=== PATIENT | female | born 1945 | race Hispanic/Latino ===

== ENCOUNTER 2020-02-11 14:18 | Inpatient (IN) | payer MEDICARE ==
[2020-02-11] MEDS ORDERED: MORPHINE 4 MG/1 ML INJ IV ONE (14:47)
[2020-02-11] MEDS ORDERED: ONDANSETRON 4 MG/2 ML INJ IV ONE (14:47)
[2020-02-11] MEDS ORDERED: ONDANSETRON 4 MG/2 ML INJ ONE (14:48)
[2020-02-11] MEDS ORDERED: MORPHINE 4 MG/1 ML INJ ONE (14:48)
--- NOTE | 2020-02-11 14:52 | Emergency Department Report ---
ED Abdominal Pain HPI - General Chief Complaint: Abdominal Pain Stated Complaint: ABDOMINAL PAIN/NAUSEA VOMITING Time Seen by Provider: 02/11/20 14:31 Source: patient, EMS Mode of arrival: Stretcher Limitations: No Limitations - History of Present Illness Initial Comments: Patient is 74 years old female with history of hypertension, diabetes and a remote history of kidney stone. Patient presented to the ER via EMS from home complaining of abdominal pain and right flank pain that started all of a sudden this morning. Patient described her pain as sharp, 10 out of 10 with no radiation. Denied any chest pain or shortness of breath. No headache, weakness numbness or tingling sensation. Patient had 1 episode of bowel and bladder incontinence at home. Patient found to have a blood pressure of 220/130. Patient immediately given morphine 4 mg, Zofran and labetalol [address] abdomen and pelvis stat has been ordered to examine for aortic dissection or any other acute abdomen pathology. MD Complaint: abdominal pain -: Sudden, This morning Location: diffuse Radiation: none Migration to: no migration Quality: sharp - Related Data Home Medications Medication Instructions Recorded Confirmed Last Taken Doxazosin [Cardura] 4 mg PO QDAY 02/11/20 02/11/20 02/10/20 Hydralazine HCl 50 mg PO DAILY 02/11/20 02/11/20 02/10/20 Metoprolol 25 mg PO DAILY 02/11/20 02/11/20 02/10/20 Sertraline [Zoloft] 50 mg PO QDAY 02/11/20 02/11/20 02/10/20 amLODIPine [Norvasc] 10 mg PO DAILY 02/11/20 02/11/20 02/10/20 glipiZIDE 10 mg PO BID 02/11/20 02/11/20 02/10/20 Allergies Allergy/AdvReac Type Severity Reaction Status Date / Time clindamycin Allergy Hives Verified 02/11/20 14:52 ED Review of Systems ROS: Stated complaint: ABDOMINAL PAIN/NAUSEA VOMITING Other details as noted in HPI Comment: All other systems reviewed and negative Constitutional: denies: chills, fever Respiratory: denies: cough, shortness of breath, SOB with exertion Cardiovascular: denies: chest pain, palpitations Gastrointestinal: abdominal pain. denies: nausea, vomiting, diarrhea, constipation, hematemesis, melena, hematochezia Musculoskeletal: denies: back pain Neurological: denies: headache, weakness, numbness, paresthesias, confusion, abnormal gait ED Past Medical Hx - Past Medical History Hx Hypertension: Yes Hx Diabetes: Yes Additional medical history: Mitral Valve Prolapse, High Cholesterol - Surgical History Hx Cholecystectomy: Yes Additional Surgical History: Hysterectomy, tonsillectomy - Social History Smoking Status: Heavy Tobacco Smoker Substance Use Type: None - Medications Home Medications: Home Medications Medication Instructions Recorded Confirmed Last Taken Type Doxazosin [Cardura] 4 mg PO QDAY 02/11/20 02/11/20 02/10/20 History Hydralazine HCl 50 mg PO DAILY 02/11/20 02/11/20 02/10/20 History Metoprolol 25 mg PO DAILY 02/11/20 02/11/20 02/10/20 History Sertraline [Zoloft] 50 mg PO QDAY 02/11/20 02/11/20 02/10/20 History amLODIPine [Norvasc] 10 mg PO DAILY 02/11/20 02/11/20 02/10/20 History glipiZIDE 10 mg PO BID 02/11/20 02/11/20 02/10/20 History ED Physical Exam - General Limitations: No Limitations General appearance: alert, in no apparent distress - Head Head exam: Present: atraumatic, normocephalic, normal inspection - Eye Eye exam: Present: normal appearance - ENT ENT exam: Present: normal exam, normal orophraynx, mucous membranes moist - Neck Neck exam: Present: normal inspection, full ROM. Absent: tenderness, meningismu s - Respiratory Respiratory exam: Present: normal lung sounds bilaterally - Cardiovascular Cardiovascular Exam: Present: tachycardia, irregular rhythm - GI/Abdominal GI/Abdominal exam: Present: soft, normal bowel sounds. Absent: distended, tenderness, guarding, rebound, rigid, mass, bruit, pulsatile mass, hernia - Extremities Exam Extremities exam: Present: normal inspection, full ROM, normal capillary refill. Absent: pedal edema, calf tenderness - Back Exam Back exam: Present: normal inspection, full ROM. Absent: CVA tenderness (R), CVA tenderness (L) - Neurological Exam Neurological exam: Present: alert, oriented X3, reflexes normal. Absent: CN II- XII intact, normal gait - Psychiatric Psychiatric exam: Present: normal mood - Skin Skin exam: Present: warm, intact, normal color ED Course Vital Signs 02/11/20 02/11/20 02/11/20 14:39 15:42 16:11 Temperature 97.6 F Pulse Rate 118 H 98 H 110 H Respiratory 16 20 20 Rate Blood Pressure 222/121 Blood Pressure 200/125 194/98 [Right] O2 Sat by Pulse 97 95 96 Oximetry 02/11/20 02/11/20 02/11/20 16:48 18:11 19:11 Temperature Pulse Rate 105 H 118 H 114 H Respiratory 14 16 20 Rate Blood Pressure Blood Pressure 187/92 164/86 174/92 [Right] O2 Sat by Pulse 94 96 95 Oximetry 02/11/20 02/11/20 02/11/20 19:37 20:03 20:35 Temperature Pulse Rate 91 H 122 H 100 H Respiratory 16 14 Rate Blood Pressure 198/107 Blood Pressure 185/116 160/95 [Right] O2 Sat by Pulse 95 95 Oximetry ED Medical Decision Making - Lab Data Result diagrams: 02/12/20 04:58 02/12/20 04:58 - EKG Data -: EKG Interpreted by Me Rate: tachycardia - Radiology Data Radiology results: report reviewed - Medical Decision Making Patient is 74 years old female with history of hypertension, diabetes and a [facility] history of kidney stone. Patient presented to the ER via EMS from home complaining of abdominal pain and right flank pain that started all of a sudden this morning. Patient described her pain as sharp, 10 out of 10 with no radiation. Denied any chest pain or shortness of breath. No headache, weakness numbness or tingling sensation. Patient had 1 episode of bowel and bladder incontinence at home. Patient found to have a blood pressure of 220/130. Patient immediately given morphine 4 mg, Zofran and labetalol [address] abdomen and pelvis stat has been ordered to examine for aortic dissection or any other acute abdomen pathology. Patient received multiple doses of pain medication including morphine, fentanyl and Dilaudid. Patient found to have a white blood cells of 22,000 with left shift. Patient is tender to the right CVA however urinalysis is unremarkable. Patient received Rocephin [address] abdomen and pelvis showed no acute inflammatory changes in the abdomen and pelvis. Patient found to have a creatinine of 3 however there is no baseline that we can follow-up. I discussed the patient with Dr. Magdaleno, he agreed to admit the patient to medical service for further management. Critical Care Time: Yes Critical care time in (mins) excluding proc time.: 30 Critical care attestation.: If time is entered above; I have spent that time in minutes in the direct care of this critically ill patient, excluding procedure time. ED Disposition Clinical Impression: Abdominal pain, Hypertensive emergency, Acute renal failure, Acute hyperglycemia Disposition: 09 OP ADMIT IP TO THIS HOSP Is pt being admited?: Yes Condition: Stable
[2020-02-11] MEDS ORDERED: fentaNYL 250 MCG/5 ML INJ IV ONE (15:34)
[2020-02-11] MEDS ORDERED: fentaNYL 100 MCG/2 ML INJ ONE (15:39)
--- NOTE | 2020-02-11 15:51 | Cat Scan Report ---
CT ABDOMEN AND PELVIS WITHOUT CONTRAST INDICATION / CLINICAL INFORMATION: Abdominal Pain/BP 220/130. TECHNIQUE: Axial CT images were obtained through the abdomen and pelvis without IV contrast. All CT scans at [facility] are performed using CT dose reduction for ALARA by means of automated exposure control. COMPARISON: None available. FINDINGS: LOWER CHEST: No significant abnormality. LIVER: Small hepatic cyst but no significant abnormality. GALLBLADDER: Surgically absent. BILE DUCTS: No significant abnormality. PANCREAS: Several small calcifications in the pancreatic head which could represent chronic calcific pancreatitis. No acute peripancreatic inflammation or fluid collection. SPLEEN: No significant abnormality. ADRENALS: No significant abnormality. RIGHT KIDNEY and URETER: Multiple renal cysts some of which appear hyperdense. No stones or hydroneph rosis. LEFT KIDNEY and URETER: Multiple renal cysts some of which appear hyperdense. No urinary tract stones or hydronephrosis. STOMACH and SMALL BOWEL: No significant abnormality. COLON: Moderate colonic diverticulosis without acute inflammation. APPENDIX: No significant abnormality. PERITONEUM: No free fluid. No free air. No fluid collection. LYMPH NODES: No significant adenopathy. AORTA and ARTERIES: Moderate atherosclerotic calcification without acute abnormality. IVC and VEINS: No significant abnormality. URINARY BLADDER: No significant abnormality. REPRODUCTIVE ORGANS: Uterus is absent. No significant adnexal abnormality. ADDITIONAL FINDINGS: None. SKELETAL SYSTEM: No significant abnormality. IMPRESSION: 1. No inflammatory process or bowel obstruction. 2. Multiple bilateral renal cysts including hyperdense cysts. No stones or hydronephrosis. Signer Name: Meron Doe MD Signed: 02/11/2020 3:47 PM Workstation Name: [email or web address]
[2020-02-11] MEDS ORDERED: fentaNYL 100 MCG/2 ML INJ IV ONE (16:00)
[2020-02-11 16:04] LABS: Hematocrit 42.5 % (30.3-42.9); Mean Corpuscular HGB Conc 33 % (30-34); Mean Corpuscular Volume 87 fl (79-97); Platelet Count 329 K/mm3 (140-440); Red Blood Count 4.86 M/mm3 (3.65-5.03); Red Cell Distribution Width 14.6 % (13.2-15.2)
[2020-02-11 16:13] LABS: INR 1.06 (0.87-1.13); Partial Thromboplastin Time 23.3 Sec. (24.2-36.6)
[2020-02-11] MEDS ORDERED: cefTRIAXone/NS 1 GM/50 ML 1 GM/50 ML BAG IV ONE (16:15)
[2020-02-11] MEDS ORDERED: HYDROmorphone 1 MG/1 ML INJ IV ONE ×2 (16:24→18:02)
[2020-02-11 16:30] LABS: Alanine Aminotransferase 30 units/L (7-56); Albumin 3.9 g/dL (3.9-5); BUN/Creatinine Ratio 20; Blood Urea Nitrogen 59 mg/dL (7-17); Calcium 9.3 mg/dL (8.4-10.2); Hemolysis Index 4
[2020-02-11 16:37] LABS: Bilirubin,Direct < 0.2 mg/dL (0-0.2)
[2020-02-11 16:46] LABS: Basophils % (Manual) 0 % (0.0-1.8); Eosinophils % (Manual) 0 % (0.0-4.3); Total Cells Counted 100
[2020-02-11 16:47] LABS: Large Platelets 1+; Platelet Estimate Consistent w Auto; RBC Morphology Normal
[2020-02-11 16:50] LABS: Bacteria,Urine 1+ /HPF (Negative); Bilirubin,Urine NEG (Negative); Blood,Urine SM (Negative); Color,Urine Yellow (Yellow); Urobilinogen,Urine < 2.0 mg/dL (<2.0)
[2020-02-11 16:51] LABS: Protein,Urine >500 mg/dL (Negative)
[2020-02-11] MEDS ORDERED: SODIUM CHLORIDE 0.9% 1000 ML 1,000 ML IV ONE ×2 (16:53→18:01)
[2020-02-11] MEDS ORDERED: INSULIN REGULAR, HUMAN 100 UNITS/1 ML IV ONE (16:54)
--- NOTE | 2020-02-11 17:34 | XRay Report ---
CHEST 1 VIEW INDICATION / CLINICAL INFORMATION: chest pain. COMPARISON: None available. FINDINGS: SUPPORT DEVICES: None. HEART / MEDIASTINUM: No significant abnormality. LUNGS / PLEURA: No significant pulmonary or pleural abnormality. No pneumothorax. ADDITIONAL FINDINGS: No significant additional findings. IMPRESSION: 1. No significant change Signer Name: Abdiaziz Berman MD Signed: 02/11/2020 5:30 PM Workstation Name: [id number]
--- NOTE | 2020-02-11 18:03 | History and Physical Report ---
History of Present Illness Chief complaint: It hurts on my right side History of present illness: 74 YO Female with HTN, DM, MVP, Nicotine Dependence, HLD presents to ED for evaluation. Patient states that she has experienced pain on the right side of her abdomen as well as her right flank over the past 1 day with persistent pain over the same timeframe. Patient states that her pain is 10/10, constant, nonradiating, localized to the right flank and right side of her abdomen, not worsened with palpation, not associated with meals. EMS was notified and upon arrival the patient was found to be in distress and subsequently transported to [facility] for further evaluation and care. Patient seen and evaluated in the em ergency department. Lab and imaging studies reviewed. Patient found to have systemic inflammatory response syndrome suspected secondary to urinary tract infection, accelerated hypertension with a blood pressure of 220/130, and acute kidney injury with tubular necrosis, as well as hyponatremia. Patient admitted to medical floor due to increased risk of decompensation. Patient treated with antihypertensive therapy, IV antibiotic therapy, and supportive care. Nephrology team consulted in the emergency department. Patient denies fever, chills, chest pain, palpitations, productive cough, skin rash, recent ill contacts, ingestion of food/water from new or different sources, bright red blood per rectum, hematemesis, or known exposure to COVID-19. No prior admission for review. All medication listed at time of admission has been reconciled. Advanced care planning conducted in the emergency department. Past History Past Medical History: diabetes, hypertension, hyperlipidemia, other (See HPI) Past Surgical History: hysterectomy, tonsillectomy Social history: , Lives alone. denies: smoking, alcohol abuse, prescription drug abuse Family history: no significant family history (Reviewed) Medications and Allergies Allergies Allergy/AdvReac Type Severity Reaction Status Date / Time clindamycin Allergy Hives Verified 02/11/20 14:52 Home Medications Medication Instructions Recorded Confirmed Last Taken Type Doxazosin [Cardura] 4 mg PO QDAY 02/11/20 02/11/20 02/10/20 History Hydralazine HCl 50 mg PO DAILY 02/11/20 02/11/20 02/10/20 History Metoprolol 25 mg PO DAILY 02/11/20 02/11/20 02/10/20 History Sertraline [Zoloft] 50 mg PO QDAY 02/11/20 02/11/20 02/10/20 History amLODIPine [Norvasc] 10 mg PO DAILY 02/11/20 02/11/20 02/10/20 History glipiZIDE 10 mg PO BID 02/11/20 02/11/20 02/10/20 History Active Meds: Active Medications Sodium Chloride (Nacl 0.9% 1000 Ml) 1,000 mls @ 250 mls/hr IV ONCE ONE Stop: 02/11/20 20:52 Last Admin: 02/11/20 17:39 Dose: 250 mls/hr Documented by: Sodium Chloride (Nacl 0.9% 1000 Ml) 1,000 mls @ 999 mls/hr IV BOLUS ONE Stop: 02/11/20 19:01 Review of Systems Constitutional: no weight loss, no weight gain, no fever, no chills Ears, nose, mouth and throat: no ear pain, no ear discharge, no tinnitis, no decreased hearing, no nasal congestion Breasts: no change in shape, no swelling, no mass Cardiovascular: no chest pain, no orthopnea, no palpitations, no rapid/irregular heart beat Respiratory: no cough, no cough with sputum, no excessive sputum, no hemoptysis Gastrointestinal: abdominal pain, no hematemesis, no coffee ground emesis, no BRBPR, no melena, no hematochezia Genitourinary Female: flank pain, no dysmenorrhea, no pelvic pain, no urinary frequency, no urgency Rectal: no pain, no incontinence, no bleeding Musculoskeletal: no neck stiffness, no neck pain, no shooting arm pain, no arm numbness/tingling, no low back pain, no shooting leg pain Integumentary: no rash, no pruritis, no redness, no sores, no wounds Neurological: no head injury, no transient paralysis, no paralysis, no weakness, no parathesias, no numbness, no tingling, no seizures Psychiatric: no anxiety, no memory loss, no change in sleep habits, no sleep disturbances, no hypersomnia, no change in appetite, no change in libido Endocrine: no cold intolerance, no heat intolerance, no polyphagia, no excessive thirst, no polydipsia, no polyuria, no nocturia, no excessive sweating Hematologic/Lymphatic: no easy bruising, no easy bleeding, no lymphadenopathy, no lymphedema Allergic/Immunologic: no urticaria, no persistent infections, no anaphylaxis Exam - Constitutional Vitals: Temp Pulse Resp BP Pulse Ox 97.6 F 105 H 14 187/92 94 02/11/20 14:39 02/11/20 16:48 02/11/20 16:48 02/11/20 16:48 02/11/20 16:48 General appearance: Present: mild distress - EENT Eyes: Present: PERRL ENT: hearing intact, clear oral mucosa - Neck Neck: Present: supple, normal ROM - Respiratory Respiratory effort: normal Respiratory: bilateral: CTA - Cardiovascular Heart Sounds: Present: S1 & S2. Absent: rub, click - Extremities Extremities: pulses symmetrical, No edema Peripheral Pulses: within normal limits - Abdominal General gastrointestinal: Present: soft, non-tender, non-distended, normal bowel sounds, other (Negative Roland Morejon sign, negative Gerardo sign, negative Angela sign, no flank discoloration,). Absent: hepatomegaly, splenomegaly, mass Female genitourinary: Present: normal - Integumentary Integumentary: Present: clear, warm, dry - Musculoskeletal Musculoskeletal: gait normal, strength equal bilaterally - Psychiatric Psychiatric: appropriate mood/affect, intact judgment & insight - Neurologic Neurologic: CNII-XII intact, moves all extremities HEART Score - HEART Score Troponin: Troponin T < 0.010 ng/mL (0.00-0.029) 02/11/20 15:27 Results - Labs CBC & Chem 7: 02/11/20 15:27 02/11/20 15:27 Labs: Abnormal lab results 02/11/20 02/11/20 02/11/20 Range/Units 15:27 15:27 15:27 WBC 22.5 H (4.5-11.0) K/mm3 Seg Neuts % (Manual) 90.0 H (40.0-70.0) % Lymphocytes % (Manual) 4.0 L (13.4-35.0) % Seg Neutrophils # Man 20.3 H (1.8-7.7) K/mm3 Lymphocytes # (Manual) 0.9 L (1.2-5.4) K/mm3 Monocytes # (Manual) 1.1 H (0.0-0.8) K/mm3 APTT 23.3 L (24.2-36.6) Sec. Sodium 132 L (137-145) mmol/L Chloride 96.0 L (98-107) mmol/L Carbon Dioxide 16 L (22-30) mmol/L BUN 59 H (7-17) mg/dL Creatinine 3.0 H (0.7-1.2) mg/dL Glucose 487 H (65-100) mg/dL Alkaline Phosphatase 142 H (35-129) units/L Lipase 86 H (13-60) units/L Assessment and Plan - Patient Problems (1) Acute kidney injury (LITZY) with acute tubular necrosis (ATN) Current Visit: Yes Status: Acute Plan to address problem: IV fluid resuscitation therapy, monitor urine output every shift, nephrology team consulted in ED, strict I's/O, avoid nephrotoxic agents. (2) UTI (urinary tract infection) Current Visit: Yes Status: Acute Qualifiers: Encounter type: initial encounter Plan to address problem: IV antibiotic therapy, urinalysis, supportive care. (3) Systemic inflammatory response syndrome Current Visit: Yes Status: Acute Plan to address problem: CBC, CMP, chest x-ray, urinalysis, IV antibiotic therapy, IV fluid resuscitation therapy, (4) Abdominal pain Current Visit: Yes Status: Acute Plan to address problem: Monitor blood pressure every shift, resume prehospital antihypertensive therapy, hydralazine 10 mg IV every 6 hours as needed for systolic blood pressure g reater than or equal to 155 (5) Accelerated hypertension Current Visit: Yes Status: Acute (6) Metabolic acidosis Current Visit: Yes Status: Acute Plan to address problem: BMP, repeat BMP in a.m., IV bicarbonate therapy. (7) Nicotine dependence Current Visit: Yes Status: Acute Qualifiers: Nicotine product type: cigarettes Substance use status: in withdrawal Qualified Code(s): F17.213 - Nicotine dependence, cigarettes, with withdrawal Plan to address problem: Smoking cessation counseling, behavior change counseling, supportive care, +15 minutes. (8) DVT prophylaxis Current Visit: Yes Status: Acute Plan to address problem: SCD to bilateral lower extremities while in bed, patient is ambulatory (9) Advance care planning Current Visit: Yes Status: Acute Plan to address problem: Disease education conducted, patient is full code, patient and patient grandda liana acknowledges understanding and agreement with care plan. Patient grand daughter notified over the telephone and discussed care plan. +30 minutes.
[2020-02-11] MEDS ORDERED: ONDANSETRON 4 MG/2 ML INJ IV PRN (19:01)
[2020-02-11] MEDS ORDERED: SODIUM BICARB 8.4% 50 MEQ/50 ML SYRINGE IV ONE ×2 (19:28→23:10)
[2020-02-11] MEDS ORDERED: SODIUM CHLORIDE 0.9% 1000 ML 1,000 ML ONE (19:55)
[2020-02-11] MEDS ORDERED: hydrALAZINE 20 MG/1 ML INJ ONE (20:00)
[2020-02-11] MEDS: hydrALAZINE 20 MG/1 ML INJ IV PRN (20:03)
[2020-02-11] MEDS ORDERED: MORPHINE 2 MG/1 ML INJ IV ONE (23:00)
[2020-02-12] MEDS: ACETAMINOPHEN 325 MG TAB PO PRN ×4 (00:08→17:00)
[2020-02-12] MEDS: hydrALAZINE 20 MG/1 ML INJ IV PRN (00:27)
[2020-02-12] MEDS ORDERED: HYDROmorphone 1 MG/1 ML INJ IV ONE (01:08)
[2020-02-12] MEDS: SODIUM CHLORIDE 0.9% 1000 ML 1,000 ML IV SCH ×2 (05:44→06:36)
[2020-02-12 05:47] LABS: Hematocrit 42.5 % (30.3-42.9); Hemoglobin 13.9 gm/dl (10.1-14.3); Mean Corpuscular HGB Conc 33 % (30-34); Mean Corpuscular Volume 88 fl (79-97); Platelet Count 375 K/mm3 (140-440); Red Blood Count 4.83 M/mm3 (3.65-5.03); Red Cell Distribution Width 14.5 % (13.2-15.2)
[2020-02-12] MEDS ORDERED: METOPROLOL TARTRATE 5 MG/5 ML INJ IV ONE (06:33)
[2020-02-12 06:55] LABS: Albumin 3.5 g/dL (3.9-5); Calcium 8.7 mg/dL (8.4-10.2)
[2020-02-12 07:03] LABS: Basophils % (Manual) 0 % (0.0-1.8); Burr Cells Rare; Eosinophils % (Manual) 0 % (0.0-4.3); Large Platelets Few; Ovalocytes Rare; Platelet Estimate Consistent w Auto; Total Cells Counted 100
--- NOTE | 2020-02-12 08:15 | XRay Report ---
ABDOMEN 2 VIEW(S) INDICATION / CLINICAL INFORMATION: ab pain. COMPARISON: CT abdomen pelvis dated 02/11/2020 FINDINGS: TUBES / LINES: None. BOWEL GAS PATTERN: There are 1 or 2 mildly dilated loops of small bowel in the left abdomen with smal l air-fluids on the upright image. It is unclear if this represents a focal ileus or low-grade partia l obstruction. The remaining bowel loops are unremarkable. FREE AIR / EXTRALUMINAL GAS: None seen. ADDITIONAL FINDINGS: Cholecystectomy. IMPRESSION: Slightly prominent small bowel loops in the left abdomen. See above and correlate with the patient's clinical presentation. Signer Name: Efren Rogers Jr, MD Signed: 02/12/2020 8:10 AM Workstation Name: [id number]
--- NOTE | 2020-02-12 09:30 | Consultation ---
History of Present Illness - Reason for Consult Consult date: 02/12/20 acute renal failure, chronic renal failure Requesting physician: LORY PRUITT - History of Present Illness Patient is 74 years old female with history of hypertension, diabetes and a remote history of kidney stone. Patient presented to the ER via EMS from home complaining of abdominal pain and right flank pain that started all of a sudden this morning. Patient described her pain as sharp, 10 out of 10 with no radiation. Denied any chest pain or shortness of breath. No headache, weakness numbness or tingling sensation. Patient had 1 episode of bowel and bladder incontinence at home. Patient found to have a blood pressure of 220/130. Patient immediately given morphine 4 mg, Zofran and labetalol [address] abdomen and pelvis stat has been ordered to examine for aortic dissection or any other acute abdomen pathology. MD Complaint: abdominal pain -: Sudden, This morning Location: diffuse Radiation: none Migration to: no migration Quality: sharp ROS: Stated complaint: ABDOMINAL PAIN/NAUSEA VOMITING Other details as noted in HPI Comment: All other systems reviewed and negative Constitutional: denies: chills, fever Respiratory: denies: cough, shortness of breath, SOB with exertion Cardiovascular: denies: chest pain, palpitations Gastrointestinal: abdominal pain. denies: nausea, vomiting, diarrhea, constipation, hematemesis, melena, hematochezia Musculoskeletal: denies: back pain Neurological: denies: headache, weakness, numbness, paresthesias, confusion, abnormal gait - Past Medical History Hx Hypertension: Yes Hx Diabetes: Yes Additional medical history: Mitral Valve Prolapse, High Cholesterol - Surgical History Hx Cholecystectomy: Yes Additional Surgical History: Hysterectomy, tonsillectomy - Social History Smoking Status: Heavy Tobacco Smoker Substance Use Type: None Past History Past Medical History: diabetes, hypertension, hyperlipidemia, other (See HPI) Past Surgical History: hysterectomy, tonsillectomy Social history: , Lives alone. denies: smoking, alcohol abuse, pre scription drug abuse Family history: no significant family history (Reviewed) Medications and Allergies Allergies Allergy/AdvReac Type Severity Reaction Status Date / Time clindamycin Allergy Hives Verified 02/11/20 14:52 Home Medications Medication Instructions Recorded Confirmed Last Taken Type Doxazosin [Cardura] 4 mg PO QDAY 02/11/20 02/11/20 02/10/20 History Hydralazine HCl 50 mg PO DAILY 02/11/20 02/11/20 02/10/20 History Metoprolol 25 mg PO DAILY 02/11/20 02/11/20 02/10/20 History Sertraline [Zoloft] 50 mg PO QDAY 02/11/20 02/11/20 02/10/20 History amLODIPine [Norvasc] 10 mg PO DAILY 02/11/20 02/11/20 02/10/20 History glipiZIDE 10 mg PO BID 02/11/20 02/11/20 02/10/20 History Active Meds: Active Medications Acetaminophen (Tylenol) 650 mg PO Q4H PRN PRN Reason: Pain MILD(1-3)/Fever >100.5/[facility] Last Admin: 02/12/20 05:37 Dose: 650 mg Documented by: Amlodipine Besylate (Amlodipine) 10 mg PO DAILY [facility] Doxazosin Mesylate (Cardura) 4 mg PO QDAY [facility] Hydralazine HCl (Apresoline) 10 mg IV Q6HR PRN PRN Reason: Hypertension Last Admin: 02/12/20 00:27 Dose: 10 mg Documented by: Hydralazine HCl (Apresoline) 50 mg PO DAILY [facility] Sodium Chloride (Nacl 0.9% 1000 Ml) 1,000 mls @ 75 mls/hr IV DIRECT [facility] Last Admin: 02/12/20 06:36 Dose: 75 mls/hr Documented by: Levofloxacin/Dextrose (Levaquin 500mg/100ml) 500 mg in 100 mls @ 100 mls/hr IV Q48HR [facility] Metoprolol Tartrate (Metoprolol) 25 mg PO DAILY [facility] Ondansetron HCl (Zofran) 4 mg IV Q8H PRN PRN Reason: Nausea And Vomiting Last Admin: 02/12/20 05:44 Dose: 4 mg Documented by: Sertraline HCl (Zoloft) 50 mg PO QDAY [facility] Sodium Chloride (Sodium Chloride Flush Syringe 10 Ml) 10 ml IV BID [facility] Last Admin: 02/11/20 22:35 Dose: 10 ml Documented by: Sodium Chloride (Sodium Chloride Flush Syringe 10 Ml) 10 ml IV PRN PRN PRN Reason: LINE FLUSH Exam - Vital Signs Vital signs: Vital Signs Temp Pulse Resp BP Pulse Ox 97.6 F 118 H 16 222/121 98 02/11/20 14:39 02/11/20 14:39 02/11/20 14:39 02/11/20 14:39 02/11/20 14:39 - Physical Exam Narrative exam: - General Limitations: No Limitations General appearance: alert, in no apparent distress - Head Head exam: Present: atraumatic, normocephalic, normal inspection - Eye Eye exam: Present: normal appearance - ENT ENT exam: Present: normal exam, normal orophraynx, mucous membranes moist - Neck Neck exam: Present: normal inspection, full ROM. Absent: tenderness, meningismu s - Respiratory Respiratory exam: Present: normal lung sounds bilaterally - Cardiovascular Cardiovascular Exam: Present: tachycardia, irregular rhythm - GI/Abdominal GI/Abdominal exam: Present: soft, normal bowel sounds. Absent: distended, tenderness, guarding, rebound, rigid, mass, bruit, pulsatile mass, hernia - Extremities Exam Extremities exam: Present: normal inspection, full ROM, normal capillary refill. Absent: pedal edema, calf tenderness - Back Exam Back exam: Present: normal inspection, full ROM. Absent: CVA tenderness (R), CVA tenderness (L) - Neurological Exam Neurological exam: Present: alert, oriented X3, reflexes normal. Absent: CN II- XII intact, normal gait - Psychiatric Psychiatric exam: Present: normal mood - Skin Skin exam: Present: warm, intact, normal color Results - Lab Results 02/12/20 04:58 02/12/20 04:58 Most recent lab results Calcium 8.7 mg/dL (8.4-10.2) 02/12/20 04:58 Assessment and Plan Impression: * LITZY on ckd 3 * Acc Hypertension * volume depletion * UTI * polycytic kidney disease * leucocytosis * type 2 DM--uncontrolled Plan: * ivfs and iv abx for volume depletion with uti * hematology consult for leucocytosis--not available * daily lytes and strict i/os * avoid nephrotoxins * ct noted, no stones or hydronephrosis * will need outpatient follow up of leucocytosis
[2020-02-12] MEDS ORDERED: cloNIDine 0.1 MG TAB PO PRN (09:35)
[2020-02-12] MEDS ORDERED: SODIUM CHLORIDE 0.9% 1000 ML 1,000 ML IV SCH (09:45)
[2020-02-12] MEDS ORDERED: NON-FORMULARY EACH (Hydralazine Hcl [Hydralazine Hcl] 50 MG) PO SCH (10:00)
[2020-02-12] MEDS ORDERED: NON-FORMULARY EACH (Metoprolol 25 MG) PO SCH (10:00)
[2020-02-12] MEDS: MORPHINE 4 MG/1 ML INJ IV PRN ×4 (10:28→23:35)
[2020-02-12] MEDS: hydrALAZINE 25 MG TAB PO SCH (10:31)
[2020-02-12] MEDS: METOPROLOL TARTRATE 25 MG TAB PO SCH (10:31)
[2020-02-12] MEDS: amLODIPine 10 MG TAB PO SCH (10:31)
[2020-02-12] MEDS: SERTRALINE 50 MG TAB PO SCH (10:32)
--- NOTE | 2020-02-12 14:11 | Consultation ---
History of Present Illness - Reason for Consult Consult date: 02/12/20 - History of Present Illness 74-year-old female past medical history hypertension, diabetes, mitral valve prolapse, hyperlipidemia admitted to the hospital with nominal pain. She notes of the pain is predominantly over the right side of her abdomen includes her right flank. Pain began approximately 1 day prior to admission and is been persistent ever since again. The pain is not worse with eating and not alleviated by anything. He otherwise denies any symptoms such as fevers, sweats, chills. Afebrile since admission with a white count of 30 with significant neutrophilia. Blood cultures pending. Currently receiving levofloxacin. Imaging personally reviewed: Chest x-ray no acute abnormality CT abdomen pelvis: Multiple bilateral renal cysts. Diverticulosis without diverticulitis. Review of Systems: Bold if positive, otherwise negative General: fevers, chills, rigors HEENT: visual disturbance, diplopia, eye pain Respiratory: cough, sputum, hemoptysis, shortness of breath Cardiovascular: chest pain, syncope Gastrointestinal: nausea, vomiting, diarrhea, abdominal pain Genitourinary: dysuria, hematuria, flank pain Musculoskeletal: neck pain, back pain, joint pain, edema Neurologic: headaches, seizures Hematologic: easy bruising or bleeding Endocrine: night sweats, acute weight loss Skin: rash, jaundice, redness Psychiatric: suicidal, homicidal ideation Past History Past Medical History: diabetes, hypertension, hyperlipidemia, other (See HPI) Past Surgical History: hysterectomy, tonsillectomy Social history: , Lives alone. denies: smoking, alcohol abuse, prescription drug abuse Family history: no significant family history (Reviewed) Medications and Allergies Allergies Allergy/AdvReac Type Severity Reaction Status Date / Time clindamycin Allergy Hives Verified 02/11/20 14:52 Home Medications Medication Instructions Recorded Confirmed Last Taken Type Doxazosin [Cardura] 4 mg PO QDAY 02/11/20 02/11/20 02/10/20 History Hydralazine HCl 50 mg PO DAILY 02/11/20 02/11/20 02/10/20 History Metoprolol 25 mg PO DAILY 02/11/20 02/11/20 02/10/20 History Sertraline [Zoloft] 50 mg PO QDAY 02/11/20 02/11/20 02/10/20 History amLODIPine [Norvasc] 10 mg PO DAILY 02/11/20 02/11/20 02/10/20 History glipiZIDE 10 mg PO BID 02/11/20 02/11/20 02/10/20 History Active Meds: Active Medications Acetaminophen (Tylenol) 650 mg PO Q4H PRN PRN Reason: Pain MILD(1-3)/Fever >100.5/[facility] Last Admin: 02/12/20 12:28 Dose: 650 mg Documented by: Amlodipine Besylate (Amlodipine) 10 mg PO DAILY REPLACED BY [facility] Last Admin: 02/12/20 10:31 Dose: 10 mg Documented by: Clonidine HCl (Catapres) 0.1 mg PO Q8HR PRN PRN Reason: Blood Pressure Doxazosin Mesylate (Cardura) 4 mg PO QDAY REPLACED BY [facility] Hydralazine HCl (Apresoline) 10 mg IV Q6HR PRN PRN Reason: Hypertension Last Admin: 02/12/20 00:27 Dose: 10 mg Documented by: Hydralazine HCl (Apresoline) 50 mg PO DAILY REPLACED BY [facility] Last Admin: 02/12/20 10:31 Dose: 50 mg Documented by: Levofloxacin/Dextrose (Levaquin 500mg/100ml) 500 mg in 100 mls @ 100 mls/hr IV Q48HR REPLACED BY [facility] Sodium Chloride (Nacl 0.9% 1000 Ml) 1,000 mls @ 100 mls/hr IV DIRECT REPLACED BY [facility] Metoprolol Tartrate (Metoprolol) 25 mg PO DAILY REPLACED BY [facility] Last Admin: 02/12/20 10:31 Dose: 25 mg Documented by: Morphine Sulfate (Morphine) 3 mg IV Q4H PRN PRN Reason: Pain, Moderate (4-6) Last Admin: 02/12/20 10:28 Dose: 3 mg Documented by: Ondansetron HCl (Zofran) 4 mg IV Q8H PRN PRN Reason: Nausea And Vomiting Last Admin: 02/12/20 05:44 Dose: 4 mg Documented by: Sertraline HCl (Zoloft) 50 mg PO QDAY REPLACED BY [facility] Last Admin: 02/12/20 10:32 Dose: 50 mg Documented by: Sodium Chloride (Sodium Chloride Flush Syringe 10 Ml) 10 ml IV BID REPLACED BY [facility] Last Admin: 02/12/20 10:30 Dose: 10 ml Documented by: Sodium Chloride (Sodium Chloride Flush Syringe 10 Ml) 10 ml IV PRN PRN PRN Reason: LINE FLUSH Physical Examination - Physical Exam Narrative exam: Physical Exam: Constitutional: Alert, cooperative. No acute distress Head, Ears, Nose: Normocephalic, atraumatic. External ears, nose normal Eyes: Conjunctivae/corneas clear. No icterus. No ptosis. Neck: Supple, no meningeal signs Oral: dentition fair, no thrush Cardiovascular: S1, S2 normal. Respiratory: Good air entry, clear to auscultation bilaterally GI: Soft, non-tender; bowel sounds normal. No peritoneal signs. Musculoskeletal: No pedal edema, no cyanosis. Skin: No rash or abscess Hem/Lymphatic: No palpable cervical or supraclavicular nodes. No lymphangitis Psych: Mood ok. Affect normal Neurological: Awake, alert, oriented. No gross abnormality - Constitutional Vitals: Vital Signs Temp Pulse Resp BP Pulse Ox 98.5 F 156 H 28 H 166/85 91 02/12/20 06:04 02/12/20 10:31 02/12/20 06:04 02/12/20 10:31 02/12/20 06:04 Temperature -Last 24 Hours Temperature 98.5 F Temperature 97.6 F Temperature 97.6 F Results - Labs CBC & Chem 7: 02/12/20 04:58 02/12/20 04:58 Labs: Abnormal lab results 02/11/20 02/11/20 02/11/20 Range/Units 15:27 15:27 15:27 WBC 22.5 H (4.5-11.0) K/mm3 Seg Neuts % (Manual) 90.0 H (40.0-70.0) % Lymphocytes % (Manual) 4.0 L (13.4-35.0) % Seg Neutrophils # Man 20.3 H (1.8-7.7) K/mm3 Lymphocytes # (Manual) 0.9 L (1.2-5.4) K/mm3 Monocytes # (Manual) 1.1 H (0.0-0.8) K/mm3 APTT 23.3 L (24.2-36.6) Sec. Sodium 132 L (137-145) mmol/L Chloride 96.0 L (98-107) mmol/L Carbon Dioxide 16 L (22-30) mmol/L BUN 59 H (7-17) mg/dL Creatinine 3.0 H (0.7-1.2) mg/dL Glucose 487 H (65-100) mg/dL Alkaline Phosphatase 142 H (35-129) units/L Albumin (3.9-5) g/dL Lipase 86 H (13-60) units/L 02/12/20 02/12/20 Range/Units 04:58 04:58 WBC 30.0 H (4.5-11.0) K/mm3 Seg Neuts % (Manual) 96.0 H (40.0-70.0) % Lymphocytes % (Manual) 1.0 L (13.4-35.0) % Seg Neutrophils # Man 28.8 H (1.8-7.7) K/mm3 Lymphocytes # (Manual) 0.3 L (1.2-5.4) K/mm3 Monocytes # (Manual) 0.9 H (0.0-0.8) K/mm3 APTT (24.2-36.6) Sec. Sodium (137-145) mmol/L Chloride (98-107) mmol/L Carbon Dioxide 15 L (22-30) mmol/L BUN 59 H (7-17) mg/dL Creatinine 3.0 H (0.7-1.2) mg/dL Glucose 477 H (65-100) mg/dL Alkaline Phosphatase (35-129) units/L Albumin 3.5 L (3.9-5) g/dL Lipase (13-60) units/L Assessment and Plan Cultures: Blood culture 02/11/2020 pending A/P: 74-year-old female past medical history hypertension, diabetes, mitral valve prolapse, hyperlipidemia admitted with acute sepsis and abdominal pain #Acute sepsis: Present with leukocytosis and tachycardia. Unclear etiology, though with significant abdominal pain and no clear cause of that. #Abdominal pain: Unclear etiology, CT scan with multiple bilateral renal cysts no obvious infection at this time #Leukocytosis: Significant neutrophilia. Will escalate levofloxacin to cefepime, and add Flagyl at this time for potential intra-abdominal anaerobes #Diabetes: Tight glycemic control for best outcomes #LITZY on CKD: Renally adjust antibiotics Recs: -Stop levofloxacin -Started cefepime renally adjusted and metronidazole -Trend white blood cell count Thank you for the consult, we will continue to follow. MD [facility] ([facility] M: [phone] O: [phone] F: [phone]
[2020-02-12] MEDS ORDERED: CEFEPIME/NS 2 GM/100 ML 2 GM/100 ML BAG IV SCH (15:00)
[2020-02-12 16:25] LABS: Creatinine,Urine 35.3 mg/dL (0.1-20.0)
[2020-02-12 16:43] LABS: Protein/Creatinine Ratio,Urine 22.55
[2020-02-12] MEDS: metroNIDAZOLE/NS 500 MG/100 ML 500 MG/100 ML BAG IV SCH ×2 (16:52→21:27)
[2020-02-12] MEDS: DOXAZOSIN 4 MG TAB PO SCH (16:53)
--- NOTE | 2020-02-12 17:24 | Progress Note ---
Subjective Date of service: 02/12/20 Interval history: A/P Assessment and Plan - Patient Problems (1) Acute kidney injury rule out acute on chronic kidney disease Current Visit: Yes Status: Acute Plan to address problem: IV fluid resuscitation therapy, avoid nephrotoxic agents. Nephrology note reviewed Continue IV fluids Monitor renal function Nephrology note reviewed and appreciated (2) Abdominal pain Current Visit: Yes Status: Acute Plan to address problem: CT of the abdomen and pelvis results reviewed Unclear etiology UA reviewed no evidence of UTI Pain control (3) Accelerated hypertension Current Visit: Yes Status: Acute Continue amlodipine, clonidine and hydralazine (4) Metabolic acidosis secondary to acute renal failure Current Visit: Yes Status: Acute Plan to address problem: Nephrology following Continue per recommendations of nephrology (5)Leukocytosis; WBC count went up to 30,000 today Unclear etiology ID note reviewed and appreciated Antibiotics escalated to cefepime and Flagyl (6) Nicotine dependence Current Visit: Yes Status: Acute Qualifiers: Nicotine product type: cigarettes Substance use status: in withdrawal Qualified Code(s): F17.213 - Nicotine dependence, cigarettes, with withdrawal Plan to address problem: Smoking cessation counseling, behavior change counseling, supportive care, +15 minutes. (7) DVT prophylaxis Current Visit: Yes Status: Acute Plan to address problem: SCD to bilateral lower extremities while in bed, patient is ambulatory 74-year-old female with history of diabetes and hypertension resting in the bed, alert and oriented, complaints of abdominal and right mid back/flank pain She denies any fever or chills or dysuria. She denies any chest pain or shortness of breath. Denies nausea vomiting or diarrhea. Complains of pain all over the abdomen. Lab results reviewed. CT abdomen / pelvis results reviewed. ID and nephrology notes reviewed and appreciated Physical Exam: Constitutional: Alert, cooperative. No acute distress Head, Ears, Nose: Normocephalic, atraumatic. External ears, nose normal Eyes: Conjunctivae/corneas clear. No icterus. No ptosis. Neck: Supple, no meningeal signs Oral: dentition fair, no thrush Cardiovascular: S1, S2 normal. Respiratory: Good air entry, clear to auscultation bilaterally GI: Soft, diffusely tender; bowel sounds normal. No peritoneal signs. Musculoskeletal: No pedal edema, no cyanosis. Skin: No rash or abscess Hem/Lymphatic: No palpable cervical or supraclavicular nodes. No lymphangitis Psych: Mood ok. Affect normal Neurological: Awake, alert, oriented. No gross abnormality Objective - Constitutional Vitals: Vital Signs - 12hr 02/12/20 02/12/20 02/12/20 06:04 06:35 10:31 Temperature 98.5 F Pulse Rate 156 H 156 H 156 H Respiratory 28 H Rate Blood Pressure 166/85 166/85 166/85 O2 Sat by Pulse 91 Oximetry 02/12/20 11:58 Temperature 98.1 F Pulse Rate 76 Respiratory 20 Rate Blood Pressure 172/85 O2 Sat by Pulse 91 Oximetry - Labs CBC & Chem 7: 02/12/20 04:58 02/12/20 04:58 Labs: Abnormal lab results 02/12/20 02/12/20 02/12/20 Range/Units 04:58 04:58 Unknown WBC 30.0 H (4.5-11.0) K/mm3 Seg Neuts % (Manual) 96.0 H (40.0-70.0) % Lymphocytes % (Manual) 1.0 L (13.4-35.0) % Seg Neutrophils # Man 28.8 H (1.8-7.7) K/mm3 Lymphocytes # (Manual) 0.3 L (1.2-5.4) K/mm3 Monocytes # (Manual) 0.9 H (0.0-0.8) K/mm3 Carbon Dioxide 15 L (22-30) mmol/L BUN 59 H (7-17) mg/dL Creatinine 3.0 H (0.7-1.2) mg/dL Glucose 477 H (65-100) mg/dL Albumin 3.5 L (3.9-5) g/dL Urine Creatinine 35.3 H (0.1-20.0) mg/dL Urine Total Protein 796 H (5-11.8) mg/dL HEART Score - HEART Score Troponin: Troponin T < 0.010 ng/mL (0.00-0.029) 02/11/20 15:27
[2020-02-13] MEDS: MORPHINE 4 MG/1 ML INJ IV PRN ×3 (05:12→13:39)
[2020-02-13] MEDS: metroNIDAZOLE/NS 500 MG/100 ML 500 MG/100 ML BAG IV SCH ×3 (05:13→23:28)
[2020-02-13 06:17] LABS: Hematocrit 43.6 % (30.3-42.9); Hemoglobin 13.8 gm/dl (10.1-14.3); Mean Corpuscular HGB Conc 32 % (30-34); Mean Corpuscular Volume 89 fl (79-97); Platelet Count 348 K/mm3 (140-440); Red Blood Count 4.88 M/mm3 (3.65-5.03); Red Cell Distribution Width 15.2 % (13.2-15.2)
[2020-02-13 06:27] LABS: Calcium 8.8 mg/dL (8.4-10.2)
[2020-02-13 06:58] LABS: Band Neutrophils # (Manual) 0.8 K/mm3; Basophils % (Manual) 0 % (0.0-1.8); Burr Cells Rare; Eosinophils % (Manual) 0 % (0.0-4.3); Total Cells Counted 100
[2020-02-13 06:59] LABS: Ovalocytes Rare; Platelet Estimate Consistent w Auto
[2020-02-13] MEDS: METOPROLOL TARTRATE 25 MG TAB PO SCH (09:40)
[2020-02-13] MEDS: DOXAZOSIN 4 MG TAB PO SCH (09:41)
[2020-02-13] MEDS: SERTRALINE 50 MG TAB PO SCH (09:41)
[2020-02-13] MEDS: amLODIPine 10 MG TAB PO SCH (09:41)
[2020-02-13] MEDS ORDERED: CEFEPIME/NS 2 GM/100 ML 2 GM/100 ML BAG IV SCH (10:00)
--- NOTE | 2020-02-13 10:25 | Progress Note ---
Assessment and Plan Impression: * LITZY on ckd 3 * Acc Hypertension * sepsis * volume depletion * UTI * polycytic kidney disease--likely with infected cyst * leucocytosis * type 2 DM--uncontrolled Plan: * ivfs and iv abx for volume depletion with uti * add levaquin for increase concentration inside renal cyst * hematology consult for leucocytosis--not available * daily lytes and strict i/os * avoid nephrotoxins * ct noted, no stones or hydronephrosis * likely now with ATN, due to hypotension, cr worse * low thresold for icu transfer, discussed with critical care * check abg * give iv albumin and bicarb gtt * vasopressors prn Subjective Date of service: 02/13/20 Principal diagnosis: sepsis, litzy on ckd Interval history: resting in bed Objective - Exam Narrative Exam: - General Limitations: No Limitations General appearance: alert, in no apparent distress - Head Head exam: Present: atraumatic, normocephalic, normal inspection - Eye Eye exam: Present: normal appearance - ENT ENT exam: Present: normal exam, normal orophraynx, mucous membranes moist - Neck Neck exam: Present: normal inspection, full ROM. Absent: tenderness, meningismus - Respiratory Respiratory exam: Present: normal lung sounds bilaterally - Cardiovascular Cardiovascular Exam: Present: tachycardia, irregular rhythm - GI/Abdominal GI/Abdominal exam: Present: soft, normal bowel sounds. Absent: distended, tenderness, guarding, rebound, rigid, mass, bruit, pulsatile mass, hernia - Extremities Exam Extremities exam: Present: normal inspection, full ROM, normal capillary refill. Absent: pedal edema, calf tenderness - Back Exam Back exam: Present: normal inspection, full ROM. Absent: CVA tenderness (R), CVA tenderness (L) - Neurological Exam Neurological exam: Present: alert, oriented X3, reflexes normal. Absent: CN II- XII intact, normal gait - Psychiatric Psychiatric exam: Present: normal mood - Skin Skin exam: Present: warm, intact, normal color - Vital Signs Vital signs: Vital Signs - 12hr 02/12/20 02/13/20 02/13/20 23:10 04:58 09:40 Temperature 97.9 F 99.0 F Pulse Rate 81 125 H 121 H Respiratory 20 16 Rate Blood Pressure 158/88 92/69 Blood Pressure 167/62 [Right] O2 Sat by Pulse 91 92 Oximetry 02/13/20 09:41 Temperature Pulse Rate 121 H Respiratory Rate Blood Pressure 92/69 Blood Pressure [Right] O2 Sat by Pulse Oximetry - Lab 02/13/20 05:43 02/13/20 05:43 Most recent lab results Calcium 8.8 mg/dL (8.4-10.2) 02/13/20 05:43 Urine Creatinine 35.3 mg/dL (0.1-20.0) H 02/12/20 Unknown Urine Total Protein 796 mg/dL (5-11.8) H 02/12/20 Unknown Medications & Allergies - Medications Allergies/Adverse Reactions: Allergies clindamycin Allergy (Verified 02/11/20 14:52) Hives Home Medications: Home Medications Medication Instructions Recorded Confirmed Last Taken Type Doxazosin [Cardura] 4 mg PO QDAY 02/11/20 02/11/20 02/10/20 History Hydralazine HCl 50 mg PO DAILY 02/11/20 02/11/20 02/10/20 History Metoprolol 25 mg PO DAILY 02/11/20 02/11/20 02/10/20 History Sertraline [Zoloft] 50 mg PO QDAY 02/11/20 02/11/20 02/10/20 History amLODIPine [Norvasc] 10 mg PO DAILY 02/11/20 02/11/20 02/10/20 History glipiZIDE 10 mg PO BID 02/11/20 02/11/20 02/10/20 History Active Medications: Generic Name Dose Route Start Last Admin Trade Name Freq PRN Reason Stop Dose Admin Acetaminophen 650 mg 02/11/20 19:01 02/12/20 17:00 Tylenol PO 650 mg Q4H PRN Administration Pain MILD(1-3)/Fever >100.5/[facility] Amlodipine Besylate 10 mg 02/12/20 10:00 02/13/20 09:41 Amlodipine PO Not Given DAILY [facility] Clonidine HCl 0.1 mg 02/12/20 09:35 Catapres PO Q8HR PRN Blood Pressure Doxazosin Mesylate 4 mg 02/12/20 10:00 02/13/20 09:41 Cardura PO Not Given QDAY [facility] Hydralazine HCl 10 mg 02/11/20 18:07 02/12/20 00:27 Apresoline IV 10 mg Q6HR PRN Administration Hypertension Hydralazine HCl 50 mg 02/12/20 10:00 02/12/20 10:31 Apresoline PO 50 mg DAILY [facility] Administration Metronidazole 500 mg in 100 mls @ 100 mls/hr 02/12/20 15:40 02/13/20 07:53 Flagyl 500 Mg/100 Ml IV Infused Q8HR [facility] Infusion Levofloxacin/Dextrose 250 mg in 50 mls @ 50 mls/hr 02/13/20 11:00 Levaquin 250mg/50ml IV Q24HR [facility] Protocol Metoprolol Tartrate 25 mg 02/12/20 10:00 02/13/20 09:40 Metoprolol PO Not Given DAILY [facility] Morphine Sulfate 3 mg 02/12/20 10:09 02/13/20 09:47 Morphine IV 3 mg Q4H PRN Administration Pain, Moderate (4-6) Ondansetron HCl 4 mg 02/11/20 19:01 02/12/20 05:44 Zofran IV 4 mg Q8H PRN Administration Nausea And Vomiting Sertraline HCl 50 mg 02/12/20 10:00 02/13/20 09:41 Zoloft PO 50 mg QDAY [facility] Administration Sodium Chloride 10 ml 02/11/20 22:00 02/13/20 09:40 Sodium Chloride Flush Syringe 10 Ml IV Not Given BID [facility] Sodium Chloride 10 ml 02/11/20 19:01 Sodium Chloride Flush Syringe 10 Ml IV PRN PRN LINE FLUSH
[2020-02-13] MEDS: hydrALAZINE 25 MG TAB PO SCH (10:33)
[2020-02-13] MEDS: ALBUMIN HUMAN 25% (25 GM/100 ML) INJ IV SCH ×2 (11:03→23:28)
[2020-02-13] MEDS: SODIUM CHLORIDE 0.45% 1000 ML 1,000 ML with SODIUM BICARBONATE 75 MEQ IV SCH (11:27)
--- NOTE | 2020-02-13 11:58 | Progress Note ---
Subjective Date of service: 02/13/20 Principal diagnosis: sepsis, ashley on ckd Interval history: A/P Assessment and Plan - Patient Problems (1) Acute kidney injury rule out acute on chronic kidney disease Current Visit: Yes Status: Acute Plan to address problem: IV fluid resuscitation therapy, avoid nephrotoxic agents. Nephrology note reviewed Lab results reviewed Continue IV fluids Monitor renal function Nephrology note reviewed and appreciated (2) Abdominal pain Current Visit: Yes Status: Acute Plan to address problem: CT of the abdomen and pelvis results reviewed Unclear etiology UA reviewed no evidence of UTI Discussed with nephrology Will request consults by GI and general surgery as the abdomen is very tender for Repeat CT of the abdomen and pelvis today We will check serum lipase level N.p.o. Accelerated hypertension Current Visit: Yes Status: Acute hold amlodipine, clonidine and hydralazine Hypotension: BP dropped from 150 > 92 systoloic r/o sepsis vs 2/2 medication discussed with nephrology IV fluids HAGMA secondary to acute renal failure r/o DKA Current Visit: Yes Status: Acute Plan to address problem: Nephrology following Continue per recommendations of nephrology check ketones and PH ( ABG ordered) Patient started on sodium bicarbonate drip Neutrophilic leukocytosis; worsening. up to 38 k today likely sepsis source not known Blood Cx - no growth no progressive care nurse available ID note reviewed and appreciated cont. cefepime and Flagyl Type 2 diabetes: Continue insulin sliding scale coverage ? DKA Check ABG and ketones/BHB Nicotine dependence Current Visit: Yes Status: Acute Qualifiers: Nicotine product type: cigarettes Substance use status: in withdrawal Qualified Code(s): F17.213 - Nicotine dependence, cigarettes, with withdrawal Plan to address problem: Smoking cessation counseling, behavior change counseling, supportive care, +15 minutes. DVT prophylaxis Current Visit: Yes Status: Acute Plan to address problem: SCD to bilateral lower extremities while in bed, patient is ambulatory 74-year-old female with history of diabetes and hypertension resting in the bed, alert and oriented, complains of abdominal and right mid back/flank pain She denies any fever or chills or dysuria. She denies any chest pain or shortness of breath. Denies nausea vomiting or diarrhea. Complains of pain all over the abdomen. Lab results reviewed. ID and nephrology notes reviewed and appreciated Physical Exam: Constitutional: Alert, cooperative. No acute distress Head, Ears, Nose: Normocephalic, atraumatic. External ears, nose normal Eyes: Conjunctivae/corneas clear. No icterus. No ptosis. Neck: Supple, no meningeal signs Oral: dentition fair, no thrush Cardiovascular: S1, S2 normal. Respiratory: Good air entry, clear to auscultation bilaterally GI: Soft, diffusely tender; bowel sounds normal. Musculoskeletal: No pedal edema, no cyanosis. Skin: No rash or abscess Hem/Lymphatic: No palpable cervical or supraclavicular nodes. No lymphangitis Psych: Mood ok. Affect normal Neurological: Awake, alert, oriented. No gross abnormality Objective - Constitutional Vitals: Vital Signs - 12hr 02/13/20 02/13/20 02/13/20 04:58 09:40 09:41 Temperature 99.0 F Pulse Rate 125 H 121 H 121 H Respiratory 16 Rate Blood Pressure 158/88 92/69 92/69 O2 Sat by Pulse 92 Oximetry - Labs CBC & Chem 7: 02/13/20 05:43 02/13/20 05:43 Labs: Abnormal lab results 02/12/20 02/13/20 02/13/20 Range/Units Unknown 05:43 05:43 WBC 38.2 H (4.5-11.0) K/mm3 Hct 43.6 H (30.3-42.9) % Seg Neuts % (Manual) 91.0 H (40.0-70.0) % Lymphocytes % (Manual) 4.0 L (13.4-35.0) % Seg Neutrophils # Man 34.8 H (1.8-7.7) K/mm3 Monocytes # (Manual) 1.1 H (0.0-0.8) K/mm3 Sodium 136 L (137-145) mmol/L Carbon Dioxide 11 L (22-30) mmol/L BUN 71 H (7-17) mg/dL Creatinine 4.0 H (0.7-1.2) mg/dL Glucose 343 H (65-100) mg/dL Urine Creatinine 35.3 H (0.1-20.0) mg/dL Urine Total Protein 796 H (5-11.8) mg/dL HEART Score - HEART Score Troponin: Troponin T < 0.010 ng/mL (0.00-0.029) 02/11/20 15:27
--- NOTE | 2020-02-13 12:07 | Consultation ---
History of Present Illness Consult date: 02/13/20 Reason for consult: abdominal pain Chief complaint: Abdominal pain - History of present illness History of present illness: 74-year-old female with past medical history of mitral valve prolapse, hypertension who presented to the emergency room on 02/11/2020 with abdominal pain. The patient was admitted for pain control, elevated creatinine, leukocytosis. A CT scan at that time did not show any acute abdominal cause for the abdominal pain. The patient states that her pain is getting worse. She complains of diffuse abdominal pain. She cannot characterize the pain. She has been on a solid diet without nausea or vomiting. She has been tolerating the diet. No bowel movements during this admission. The patient states she was on amoxicillin for a tooth infection recently and had diarrhea on Sunday. Since then the diarrhea has resolved. No fevers, chills, chest pain, shortness of breath. Per nursing the patient has made very little urine. Past History Past Medical History: diabetes, hypertension, hyperlipidemia, other (See HPI) Past Surgical History: cholecystectomy, hysterectomy, tonsillectomy Social history: , Lives alone. denies: smoking, alcohol abuse, prescription drug abuse Family history: no significant family history (Reviewed) Medications and Allergies Allergies Allergy/AdvReac Type Severity Reaction Status Date / Time clindamycin Allergy Hives Verified 02/11/20 14:52 Home Medications Medication Instructions Recorded Confirmed Last Taken Type Doxazosin [Cardura] 4 mg PO QDAY 02/11/20 02/11/20 02/10/20 History Hydralazine HCl 50 mg PO DAILY 02/11/20 02/11/20 02/10/20 History Metoprolol 25 mg PO DAILY 02/11/20 02/11/20 02/10/20 History Sertraline [Zoloft] 50 mg PO QDAY 02/11/20 02/11/20 02/10/20 History amLODIPine [Norvasc] 10 mg PO DAILY 02/11/20 02/11/20 02/10/20 History glipiZIDE 10 mg PO BID 02/11/20 02/11/20 02/10/20 History Active Meds: Active Medications Acetaminophen (Tylenol) 650 mg PO Q4H PRN PRN Reason: Pain MILD(1-3)/Fever >100.5/ADAMS Last Admin: 02/12/20 17:00 Dose: 650 mg Documented by: Albumin Human (Alburx 25% (Albumin)) 25 gm IV Q12HR NADER Stop: 02/14/20 12:00 Last Admin: 02/13/20 11:03 Dose: 25 gm Documented by: Clonidine HCl (Catapres) 0.1 mg PO Q8HR PRN PRN Reason: Blood Pressure Hydralazine HCl (Apresoline) 10 mg IV Q6HR PRN PRN Reason: Hypertension Last Admin: 02/12/20 00:27 Dose: 10 mg Documented by: Metronidazole (Flagyl 500 Mg/100 Ml) 500 mg in 100 mls @ 100 mls/hr IV Q8HR [facility] Last Infusion: 02/13/20 07:53 Dose: Infused Documented by: Levofloxacin/Dextrose (Levaquin 250mg/50ml) 250 mg in 50 mls @ 50 mls/hr IV Q24HR [facility]; Protocol Last Admin: 02/13/20 11:27 Dose: 50 mls/hr Documented by: Sodium Bicarbonate 75 meq/ (Sodium Chloride) 1,075 mls @ 125 mls/hr IV DIRECT [facility] Last Admin: 02/13/20 11:27 Dose: 125 mls/hr Documented by: Insulin Human Lispro (Humalog) 0 unit SUB-Q Q6HR [facility]; Protocol Metoprolol Tartrate (Metoprolol) 25 mg PO DAILY [facility] Last Admin: 02/13/20 09:40 Dose: Not Given Documented by: Morphine Sulfate (Morphine) 3 mg IV Q4H PRN PRN Reason: Pain, Moderate (4-6) Last Admin: 02/13/20 09:47 Dose: 3 mg Documented by: Ondansetron HCl (Zofran) 4 mg IV Q8H PRN PRN Reason: Nausea And Vomiting Last Admin: 02/12/20 05:44 Dose: 4 mg Documented by: Sertraline HCl (Zoloft) 50 mg PO QDAY [facility] Last Admin: 02/13/20 09:41 Dose: 50 mg Documented by: Sodium Chloride (Sodium Chloride Flush Syringe 10 Ml) 10 ml IV BID [facility] Last Admin: 02/13/20 09:40 Dose: Not Given Documented by: Sodium Chloride (Sodium Chloride Flush Syringe 10 Ml) 10 ml IV PRN PRN PRN Reason: LINE FLUSH Review of Systems ROS unobtainable: due to mental status Exam Vital Signs Temp Pulse Resp BP Pulse Ox 97.6 F 118 H 16 222/121 98 02/11/20 14:39 02/11/20 14:39 02/11/20 14:39 02/11/20 14:39 02/11/20 14:39 Narrative exam: Gen.: Awake but sleepy. Slow to answer questions. In moderate distress due to pain. ENT: Trachea midline. No lymphadenopathy. No scleral icterus or conjunctival pallor CV: S1, S2 present Respiratory: No audible wheezes Abdomen: Soft, mildly distended, diffuse tenderness to palpation. Bilateral CVA tenderness. + Voluntary guarding. No rebound or rigidity Extremities: No clubbing, cyanosis, edema Results - Labs 02/13/20 05:43 02/13/20 05:43 Abnormal lab results 02/12/20 02/13/20 02/13/20 Range/Units Unknown 05:43 05:43 WBC 38.2 H (4.5-11.0) K/mm3 Hct 43.6 H (30.3-42.9) % Seg Neuts % (Manual) 91.0 H (40.0-70.0) % Lymphocytes % (Manual) 4.0 L (13.4-35.0) % Seg Neutrophils # Man 34.8 H (1.8-7.7) K/mm3 Monocytes # (Manual) 1.1 H (0.0-0.8) K/mm3 Sodium 136 L (137-145) mmol/L Carbon Dioxide 11 L (22-30) mmol/L BUN 71 H (7-17) mg/dL Creatinine 4.0 H (0.7-1.2) mg/dL Glucose 343 H (65-100) mg/dL Urine Creatinine 35.3 H (0.1-20.0) mg/dL Urine Total Protein 796 H (5-11.8) mg/dL Diabetes panel 02/13/20 Range/Units 05:43 Sodium 136 L (137-145) mmol/L Potassium 4.6 (3.6-5.0) mmol/L Chloride 104.9 (98-107) mmol/L Carbon Dioxide 11 L (22-30) mmol/L BUN 71 H (7-17) mg/dL Creatinine 4.0 H (0.7-1.2) mg/dL Glucose 343 H (65-100) mg/dL Calcium 8.8 (8.4-10.2) mg/dL Calcium panel 02/13/20 Range/Units 05:43 Calcium 8.8 (8.4-10.2) mg/dL Pituitary panel 02/13/20 Range/Units 05:43 Sodium 136 L (137-145) mmol/L Potassium 4.6 (3.6-5.0) mmol/L Chloride 104.9 (98-107) mmol/L Carbon Dioxide 11 L (22-30) mmol/L BUN 71 H (7-17) mg/dL Creatinine 4.0 H (0.7-1.2) mg/dL Glucose 343 H (65-100) mg/dL Calcium 8.8 (8.4-10.2) mg/dL Adrenal panel 02/13/20 Range/Units 05:43 Sodium 136 L (137-145) mmol/L Potassium 4.6 (3.6-5.0) mmol/L Chloride 104.9 (98-107) mmol/L Carbon Dioxide 11 L (22-30) mmol/L BUN 71 H (7-17) mg/dL Creatinine 4.0 H (0.7-1.2) mg/dL Glucose 343 H (65-100) mg/dL Calcium 8.8 (8.4-10.2) mg/dL - Imaging CT scan - abdomen: report reviewed, image reviewed CT scan - pelvis: report reviewed, image reviewed Assessment and Plan 74-year-old female with 1. Abdominal pain 2. Leukocytosis 3. Acute kidney injury 4. Sepsis Plan: 1. NPO 2. IVF - nephro on board 3. continue abx per ID 4. obtain stool cultures and CDIFF 5. prn pain control 6. recommend placement of corcoran catheter for accurate I/Os 7. repeat CT A/P with oral contrast pending 8. DVT ppx 9. glucose control per 1' service Further recs pending Ct scan results Thank you, please call with questions.
--- NOTE | 2020-02-13 13:19 | Progress Note ---
Assessment and Plan Cultures: Blood culture 02/11/2020 pending A/P: 74-year-old female past medical history hypertension, diabetes, mitral valve prolapse, hyperlipidemia admitted with acute sepsis and abdominal pain #Acute sepsis: Likely secondary to an infected renal cyst, pending repeat CT with oral contrast. #Infected renal cyst: Agree with plan to change from cephalosporin to levofloxacin to increase medication penetrating into renal cyst. #Leukocytosis: Significant neutrophilia. Will escalate levofloxacin to cefepime, and add Flagyl at this time for potential intra-abdominal anaerobes #Diabetes: Tight glycemic control for best outcomes #Diarrhea: resolved prior to presentation, doubt C diff, but continue Flagyl pending test results. #LITZY on CKD: Renally adjust antibiotics Recs: -Continue levofloxacin 200mg q24h -Continue metronidazole -Trend white blood cell count -Follow up C diff -Follow up CT with oral contrast. Discussed with Dr. Martino Thank you for the consult, we will continue to follow. Natalie Charles MD [facility] ([facility]) M: [phone] O: [phone] F: [phone] Subjective Date of service: 02/13/20 Principal diagnosis: sepsis, litzy on ckd Interval history: Remains afebrile, normal white count. Currently receiving levofloxacin and Flagyl Objective - Exam Narrative Exam: Physical Exam: Constitutional: Alert, cooperative. No acute distress Head, Ears, Nose: Normocephalic, atraumatic. Eyes: Conjunctivae/corneas clear. No icterus. No ptosis. Neck: Supple, no meningeal signs Oral: dentition fair, no thrush Cardiovascular: S1, S2 normal. Respiratory: Good air entry, clear to auscultation bilaterally GI: Soft, non-tender; bowel sounds normal. No peritoneal signs. Musculoskeletal: No pedal edema, no cyanosis. Skin: No rash or abscess Hem/Lymphatic: No palpable cervical or supraclavicular nodes. No lymphangitis Psych: Mood ok. Affect normal Neurological: Awake, alert, oriented. No gross abnormality - Constitutional Vitals: Vital Signs Temp Pulse Resp BP Pulse Ox 99.0 F 121 H 16 92/69 92 02/13/20 04:58 02/13/20 09:41 02/13/20 04:58 02/13/20 09:41 02/13/20 04:58 Temperature -Last 24 Hours Temperature 99.0 F Temperature 97.9 F Temperature 98.0 F - Labs CBC & Chem 7: 02/13/20 05:43 02/13/20 05:43 Labs: Abnormal lab results 02/12/20 02/13/20 02/13/20 Range/Units Unknown 05:43 05:43 WBC 38.2 H (4.5-11.0) K/mm3 Hct 43.6 H (30.3-42.9) % Seg Neuts % (Manual) 91.0 H (40.0-70.0) % Lymphocytes % (Manual) 4.0 L (13.4-35.0) % Seg Neutrophils # Man 34.8 H (1.8-7.7) K/mm3 Monocytes # (Manual) 1.1 H (0.0-0.8) K/mm3 Sodium 136 L (137-145) mmol/L Carbon Dioxide 11 L (22-30) mmol/L BUN 71 H (7-17) mg/dL Creatinine 4.0 H (0.7-1.2) mg/dL Glucose 343 H (65-100) mg/dL Urine Creatinine 35.3 H (0.1-20.0) mg/dL Urine Total Protein 796 H (5-11.8) mg/dL
[2020-02-13] MEDS: INSULIN LISPRO 100 UNIT/ML SUB-Q SCH ×3 (13:41→21:56)
--- NOTE | 2020-02-13 13:43 | Cat Scan Report ---
CT ABDOMEN AND PELVIS WITHOUT CONTRAST INDICATION / CLINICAL INFORMATION: MAIN. Diffuse abdominal pain TECHNIQUE: Axial CT images were obtained through the abdomen and pelvis without IV contrast. All CT scans at is location are performed using CT dose reduction for ALARA by means of automated exposure control. COMPARISON: 02/11/2020. FINDINGS: LOWER CHEST: Patchy bibasilar atelectasis. LIVER: No significant abnormality. GALLBLADDER: Removed. BILE DUCTS: No significant abnormality. PANCREAS: No significant abnormality. SPLEEN: No change. ADRENALS: No significant abnormality. RIGHT KIDNEY and URETER: Multiple complex cysts, unchanged from the previous exam. LEFT KIDNEY and URETER: No significant change from the exam 2 days prior. STOMACH and SMALL BOWEL: Several small bowel loops appear dilated when compared to the exam several d ays ago. No distinct area of transition is currently identified but low-grade obstruction versus ileu s is difficult to exclude. COLON: There is some evidence of inflammation involving the proximal sigmoid colon along several dive rticula.. APPENDIX: No significant abnormality. PERITONEUM: Small ascites now identified. LYMPH NODES: No significant adenopathy. AORTA and ARTERIES: No significant abnormality. IVC and VEINS: No significant abnormality. URINARY BLADDER: No significant abnormality. REPRODUCTIVE ORGANS: No significant abnormality. ADDITIONAL FINDINGS: None. SKELETAL SYSTEM: No significant abnormality. IMPRESSION: 1. Suspect early acute diverticulitis of the proximal sigmoid colon. 2. Increasing ascites in the interim. 3. Mild interval dilatation involving several small bowel loops within the left mid abdomen without d istinct area of transition at this time could be secondary to evolving low-grade small bowel obstruct ion versus developing adynamic ileus. Attention on follow-up is recommended. Signer Name: Darrell Ellis MD Signed: 02/13/2020 1:38 PM Workstation Name: [employer]
[2020-02-13] MEDS ORDERED: HYDROmorphone 1 MG/1 ML INJ IV PRN ×2 (14:21→19:21)
--- NOTE | 2020-02-13 14:33 | Consultation ---
History of Present Illness - Reason for Consult Consult date: 02/13/20 Concern for Surgical Abdomen, and Sepsis Requesting physician: ANETA LOMBARDI - History of Present Illness 74 y/o female admitted 2 days ago with abdominal pain. Initial CT of abdomen was negative. This am, very tender abdomen and hypotensive. Called by renal to evaluate for transfer. Brought down to unit. Found to have inflammation in gut along with possible SBO. Remains in pain. Past History Past Medical History: diabetes, hypertension, hyperlipidemia, other (See HPI) Past Surgical History: cholecystectomy, hysterectomy, tonsillectomy Social history: , Lives alone. denies: smoking, alcohol abuse, prescription drug abuse Family history: no significant family history (Reviewed) Medications and Allergies Allergies Allergy/AdvReac Type Severity Reaction Status Date / Time clindamycin Allergy Hives Verified 02/11/20 14:52 Home Medications Medication Instructions Recorded Confirmed Last Taken Type Doxazosin [Cardura] 4 mg PO QDAY 02/11/20 02/11/20 02/10/20 History Hydralazine HCl 50 mg PO DAILY 02/11/20 02/11/20 02/10/20 History Metoprolol 25 mg PO DAILY 02/11/20 02/11/20 02/10/20 History Sertraline [Zoloft] 50 mg PO QDAY 02/11/20 02/11/20 02/10/20 History amLODIPine [Norvasc] 10 mg PO DAILY 02/11/20 02/11/20 02/10/20 History glipiZIDE 10 mg PO BID 02/11/20 02/11/20 02/10/20 History Active Meds: Active Medications Acetaminophen (Tylenol) 650 mg PO Q4H PRN PRN Reason: Pain MILD(1-3)/Fever >100.5/ADAMS Last Admin: 02/12/20 17:00 Dose: 650 mg Documented by: Albumin Human (Alburx 25% (Albumin)) 25 gm IV Q12HR NADER Stop: 02/14/20 12:00 Last Admin: 02/13/20 11:03 Dose: 25 gm Documented by: Clonidine HCl (Catapres) 0.1 mg PO Q8HR PRN PRN Reason: Blood Pressure Famotidine (Pepcid) 20 mg IV QDAY [facility] Hydralazine HCl (Apresoline) 10 mg IV Q6HR PRN PRN Reason: Hypertension Last Admin: 02/12/20 00:27 Dose: 10 mg Documented by: Hydromorphone HCl (Dilaudid) 0.5 mg IV Q4H PRN PRN Reason: Pain , Severe (7-10) Metronidazole (Flagyl 500 Mg/100 Ml) 500 mg in 100 mls @ 100 mls/hr IV Q8HR [facility] Last Admin: 02/13/20 13:39 Dose: 100 mls/hr Documented by: Levofloxacin/Dextrose (Levaquin 250mg/50ml) 250 mg in 50 mls @ 50 mls/hr IV Q24HR [facility]; Protocol Last Admin: 02/13/20 11:27 Dose: 50 mls/hr Documented by: Sodium Bicarbonate 75 meq/ (Sodium Chloride) 1,075 mls @ 125 mls/hr IV DIRECT [facility] Last Admin: 02/13/20 11:27 Dose: 125 mls/hr Documented by: Labetalol HCl 200 mg/ Dextrose 200 mls @ 120 mls/hr IV TITR NADER; Protocol Insulin Human Lispro (Humalog) 0 unit SUB-Q Q6HR [facility]; Protocol Last Admin: 02/13/20 13:41 Dose: 8 unit Documented by: Metoprolol Tartrate (Metoprolol) 25 mg PO DAILY [facility] Last Admin: 02/13/20 09:40 Dose: Not Given Documented by: Morphine Sulfate (Morphine) 3 mg IV Q4H PRN PRN Reason: Pain, Moderate (4-6) Last Admin: 02/13/20 13:39 Dose: 3 mg Documented by: Ondansetron HCl (Zofran) 4 mg IV Q8H PRN PRN Reason: Nausea And Vomiting Last Admin: 02/12/20 05:44 Dose: 4 mg Documented by: Sodium Chloride (Sodium Chloride Flush Syringe 10 Ml) 10 ml IV BID [facility] Last Admin: 02/13/20 09:40 Dose: Not Given Documented by: Sodium Chloride (Sodium Chloride Flush Syringe 10 Ml) 10 ml IV PRN PRN PRN Reason: LINE FLUSH Review of Systems All systems: negative Exam - Constitutional Vitals: Temp Pulse Resp BP Pulse Ox 99.0 F 121 H 21 92/69 92 02/13/20 04:58 02/13/20 09:41 02/13/20 13:39 02/13/20 09:41 02/13/20 04:58 General appearance: Present: severe distress - EENT Eyes: Present: PERRL, EOM intact ENT: poor dentition - Neck Neck: Present: supple, normal ROM - Respiratory Respiratory effort: normal Respiratory: bilateral: CTA - Cardiovascular Rhythm: other (tachycardia) Results - Labs CBC & Chem 7: 02/13/20 05:43 02/13/20 05:43 Labs: Abnormal lab results 02/12/20 02/13/20 02/13/20 Range/Units Unknown 05:43 05:43 WBC 38.2 H (4.5-11.0) K/mm3 Hct 43.6 H (30.3-42.9) % Seg Neuts % (Manual) 91.0 H (40.0-70.0) % Lymphocytes % (Manual) 4.0 L (13.4-35.0) % Seg Neutrophils # Man 34.8 H (1.8-7.7) K/mm3 Monocytes # (Manual) 1.1 H (0.0-0.8) K/mm3 Sodium 136 L (137-145) mmol/L Carbon Dioxide 11 L (22-30) mmol/L BUN 71 H (7-17) mg/dL Creatinine 4.0 H (0.7-1.2) mg/dL Glucose 343 H (65-100) mg/dL Urine Creatinine 35.3 H (0.1-20.0) mg/dL Urine Total Protein 796 H (5-11.8) mg/dL - Imaging and Cardiology CT scan - abdomen: report reviewed CT scan - pelvis: report reviewed Assessment and Plan 74 y/o female with abdominal pain, hypotension, now hypertensive with tachycardia and pain, worrisome for SBO and inflammation in colon from diverticula with worsening renal function. 1. Transfer to unit 2. Place corcoran 3. CT scan is remarkable. Surgery has seen and evaluated. Getting NG tube. Checking Lactic Acids q6 for at least [address] patient on higher pain regimen 5. Ordered a one time dose of labetolol and then the drip if needed given her NPO status 6. Follow up renal rec 7. Appreciate ID help continue abx. Guarded prognosis. CCT 31 minutes.
[2020-02-13] MEDS: FAMOTIDINE 20 MG/2 ML INJ IV SCH (14:48)
[2020-02-13] MEDS ORDERED: labetaloL 200 MG in DEXTROSE 5% IN WATER 160 ML IV SCH (15:00)
--- NOTE | 2020-02-13 15:21 | XRay Report ---
SUPINE ABDOMEN 02/13/2020 INDICATION / CLINICAL INFORMATION: NGT placement. COMPARISON: 02/12/2020 FINDINGS: The nasogastric tube is not identified. Gaseous distention of the small bowel has increased. No colon distention. No evidence of pneumoperitoneum. Signer Name: Ruddy Holman MD Signed: 02/13/2020 3:17 PM Workstation Name: [employer][id number]
--- NOTE | 2020-02-13 15:54 | Consultation ---
History of Present Illness - Reason for Consult Consult date: 02/13/20 Abd pain Requesting physician: HANANE BRAVO - History of Present Illness Ms. Bui is a 74-year-old woman who presented to the hospital on February 10 complaining of right-sided abdominal and flank pain for a day. History is obtained from the chart and from talking to the patient's daughter, as patient is lethargic. She has had a CT done, and been seen by general surgery and nephrology as well as infectious diseases. No clear etiology for the abdominal pain has been elucidated and it has progressed. She was transferred to the ICU as her blood pressure dropped but it has recovered. According to the daughter, patient initially was thinking this was kidney stones since she had kidney stone pain like this previously. There is no other prior history of significant abdominal disease. Patient does have hypertension. There is no history of blood clots. There is no known history of GI bleeding. Meds reviewed. Past History Past Medical History: diabetes, hypertension, hyperlipidemia, other (See HPI) Past Surgical History: cholecystectomy, hysterectomy, tonsillectomy Social history: , Lives alone. denies: smoking, alcohol abuse, prescription drug abuse Family history: no significant family history (Reviewed) Medications and Allergies Allergies Allergy/AdvReac Type Severity Reaction Status Date / Time clindamycin Allergy Hives Verified 02/11/20 14:52 Home Medications Medication Instructions Recorded Confirmed Last Taken Type Doxazosin [Cardura] 4 mg PO QDAY 02/11/20 02/11/20 02/10/20 History Hydralazine HCl 50 mg PO DAILY 02/11/20 02/11/20 02/10/20 History Metoprolol 25 mg PO DAILY 02/11/20 02/11/20 02/10/20 History Sertraline [Zoloft] 50 mg PO QDAY 02/11/20 02/11/20 02/10/20 History amLODIPine [Norvasc] 10 mg PO DAILY 02/11/20 02/11/20 02/10/20 History glipiZIDE 10 mg PO BID 02/11/20 02/11/20 02/10/20 History Active Meds: Active Medications Acetaminophen (Tylenol) 650 mg PO Q4H PRN PRN Reason: Pain MILD(1-3)/Fever >100.5/ADAMS Last Admin: 02/12/20 17:00 Dose: 650 mg Documented by: Albumin Human (Alburx 25% (Albumin)) 25 gm IV Q12HR NADER Stop: 02/14/20 12:00 Last Admin: 02/13/20 11:03 Dose: 25 gm Documented by: Clonidine HCl (Catapres) 0.1 mg PO Q8HR PRN PRN Reason: Blood Pressure Famotidine (Pepcid) 20 mg IV QDAY NADER Last Admin: 02/13/20 14:48 Dose: 20 mg Documented by: Hydralazine HCl (Apresoline) 10 mg IV Q6HR PRN PRN Reason: Hypertension Last Admin: 02/12/20 00:27 Dose: 10 mg Documented by: Hydromorphone HCl (Dilaudid) 0.5 mg IV Q4H PRN PRN Reason: Pain , Severe (7-10) Last Admin: 02/13/20 14:51 Dose: 0.5 mg Documented by: Metronidazole (Flagyl 500 Mg/100 Ml) 500 mg in 100 mls @ 100 mls/hr IV Q8HR NADER Last Admin: 02/13/20 13:39 Dose: 100 mls/hr Documented by: Levofloxacin/Dextrose (Levaquin 250mg/50ml) 250 mg in 50 mls @ 50 mls/hr IV Q24HR NADER; Protocol Last Admin: 02/13/20 11:27 Dose: 50 mls/hr Documented by: Sodium Bicarbonate 75 meq/ (Sodium Chloride) 1,075 mls @ 125 mls/hr IV DIRECT NADER Last Admin: 02/13/20 11:27 Dose: 125 mls/hr Documented by: Labetalol HCl 200 mg/ Dextrose 200 mls @ 120 mls/hr IV TITR NADER; Protocol Insulin Human Lispro (Humalog) 0 unit SUB-Q Q6HR NADER; Protocol Last Admin: 02/13/20 13:41 Dose: 8 unit Documented by: Metoprolol Tartrate (Metoprolol) 25 mg PO DAILY [facility] Last Admin: 02/13/20 09:40 Dose: Not Given Documented by: Morphine Sulfate (Morphine) 3 mg IV Q4H PRN PRN Reason: Pain, Moderate (4-6) Last Admin: 02/13/20 13:39 Dose: 3 mg Documented by: Ondansetron HCl (Zofran) 4 mg IV Q8H PRN PRN Reason: Nausea And Vomiting Last Admin: 02/12/20 05:44 Dose: 4 mg Documented by: Sodium Chloride (Sodium Chloride Flush Syringe 10 Ml) 10 ml IV BID NADER Last Admin: 02/13/20 09:40 Dose: Not Given Documented by: Sodium Chloride (Sodium Chloride Flush Syringe 10 Ml) 10 ml IV PRN PRN PRN Reason: LINE FLUSH Review of Systems ROS unobtainable: due to mental status Exam - Constitutional Vitals: Temp Pulse Resp BP Pulse Ox 99.0 F 143 H 21 180/66 92 02/13/20 04:58 02/13/20 14:42 02/13/20 14:51 02/13/20 14:42 02/13/20 04:58 General appearance: Present: no acute distress, other (unless touched on abdomen. She responds to voice and complains of abd pain when aroused.) - EENT Eyes: Present: PERRL, EOM intact ENT: hearing intact - Respiratory Respiratory effort: labored Respiratory: bilateral: CTA (anteriorly) - Cardiovascular Rhythm: irregularly irregular - Extremities Extremities: No edema - Abdominal General gastrointestinal: Present: tender (moderate diffuse), hypoactive bowel sounds Results - Labs CBC & Chem 7: 02/13/20 05:43 02/13/20 05:43 Labs: Abnormal lab results 02/12/20 02/13/20 02/13/20 Range/Units Unknown 05:43 05:43 WBC 38.2 H (4.5-11.0) K/mm3 Hct 43.6 H (30.3-42.9) % Seg Neuts % (Manual) 91.0 H (40.0-70.0) % Lymphocytes % (Manual) 4.0 L (13.4-35.0) % Seg Neutrophils # Man 34.8 H (1.8-7.7) K/mm3 Monocytes # (Manual) 1.1 H (0.0-0.8) K/mm3 Sodium 136 L (137-145) mmol/L Carbon Dioxide 11 L (22-30) mmol/L BUN 71 H (7-17) mg/dL Creatinine 4.0 H (0.7-1.2) mg/dL Glucose 343 H (65-100) mg/dL Urine Creatinine 35.3 H (0.1-20.0) mg/dL Urine Total Protein 796 H (5-11.8) mg/dL - Imaging and Cardiology CT scan - abdomen: report reviewed (Polycystic kidney disease) Assessment and Plan 1. Abd pain - etiology unclear. Increasing WBC and worsening Cr worrisome. Labs and CT otherwise nonspecific. Lactic acid normal. NGT - bilious return. Given degree of tenderness, am concerned about peritonitis, bowel ischemia. Discussed with pt's daughter and with surgeon re: possible exploratory laparoscopy. - continue abx, PPI, and supportive care - will defer decision re: possible laparoscopy/laparotomy to Surgery - close monitoring to try and elucidate etiology. Will need to consider Doppler of mesenteric vessels, etc if family decides against surgical evaluation
--- NOTE | 2020-02-13 16:11 | Event Note ---
Date: 02/13/20 Pt reevaluated in ICU. BP in 180s and HR 70s. Patient appears comfortable with eyes closed however abdominal exam shows severe diffuse TTP with guarding. Abdomen is soft without rigidity or rebound. Discussed case with Dr. Stroud. Ct scan findings discussed. In light of patient's worsening labs and as serial abdominal exams have not improved, there is a possibility for ischemic bowel. A diagnostic laparoscopy/exploratory laparotomy is being given consideration. Called and discussed case with patient's daughter Danya and grand niece Funmi. Ms. Hagan is designating Funmi as primary point of contact and the person who gives consent in the event that she is unavailable. I discussed the patient's condition, labs, and repeat CT scan findings. I explained that the only way to determine if there ischemic bowel is to directly look at the bowel in surgery. I explained the risks, benefits, alternatives to surgery to them. If they decide on nonsurgical management, we will continue supportive care. All questions answered and they are agreeable to proceed with surgery. Consent obtained for dx lap, possible exlap, possible bowel resection, possible open abdomen. Will proceed with surgery emergently. Dr. Gonzales updated.
[2020-02-13] MEDS ORDERED: LIDOCAINE (1%) 10 MG/1 ML VIAL 20 ML MDV ONE (16:54)
--- NOTE | 2020-02-13 16:54 | Anesthesia Consultation ---
<GYSPY JONES - Last Filed: 02/13/20 16:51> Anesthesia Consult and Med Hx Date of service: 02/13/20 - Airway Anesthetic Teeth Evaluation: Poor ROM Head & Neck: Adequate Mental/Hyoid Distance: Adequate Mallampati Class: Class II Intubation Access Assessment: Probably Good - Pre-Operative Health Status ASA Pre-Surgery Classification: ASA3 Proposed Anesthetic Plan: General - Pulmonary Hx Smoking: Yes Hx Asthma: No COPD: No Hx Pneumonia: Yes Hx Sleep Apnea: No - Cardiovascular System Hx Hypertension: Yes Hx Coronary Artery Disease: No Hx Heart Attack/AMI: No Hx Angina: No Hx Percutaneous Transluminal Coronary Angioplasty (PTCA): No Hx Pacemaker: No Hx Internal Defibrillator: No Hx Valvular Heart Disease: Yes (Mitral Valve Prolapse) Hx Heart Murmur: No Hx Peripheral Vascular Disease: No - Central Nervous System Hx Seizures: No CVA: Yes Hx Psychiatric Problems: No - Endocrine Hx Renal Disease: No Hx End Stage Renal Disease: No Hx Cirrhosis: No Hx Liver Disease: No Hx Insulin Dependent Diabetes: Yes Hx Non-Insulin Dependent Diabetes: No Hx Thyroid Disease: No Hx Hypothyroidism: No Hx Hyperthyroidism: No - Hematic Hx Anemia: No Hx Sickle Cell Disease: No - Other Systems Hx Cancer: No Hx Obesity: No <CLAUDIO CARDENAS - Last Filed: 02/23/20 13:10> Anesthesia Consult and Med Hx - Additional Comments Anesthesia Medical History Comments: Document co-signed for chart completion purposes only.
--- NOTE | 2020-02-13 16:54 | Anesthesia Day of Surgery ---
<GYPSY JONES - Last Filed: 02/13/20 16:54> Anesthesia Day of Surgery - Day of Surgery Patient Examined: Yes Patient H&P Reviewed: Yes Patient is NPO: Yes <CLAUDIO CARDENAS - Last Filed: 02/23/20 13:09> Anesthesia Day of Surgery - Day of Surgery Patient Examined: No (Document co-signed for chart completion purposes only.)
[2020-02-13] MEDS ORDERED: BUPIVACAINE-EPINEPHRINE/PF 0.5%-1:200,000 (30 ML) VIAL INFILTRATI ONE (16:55)
[2020-02-13] MEDS ORDERED: dexAMETHasone 20 MG/5 ML VIAL ONE (17:00)
[2020-02-13 17:05] LABS: ABG Base Excess -10.5 mmol/L (-2.0-3.0); ABG HCO3 16.4 mmol/L (20.0-26.0); ABG Methemoglobin 0.8 % (0.0-1.5); ABG PCO2 40.6 mm Hg; ABG PH 7.226 pH Units (7.350-7.450); ABG PO2 77.9 mm Hg (80.0-90.0)
[2020-02-13] MEDS ORDERED: ePHEDrine SULFATE 50 MG/1 ML INJ ONE (17:12)
[2020-02-13] MEDS ORDERED: SUCCINYLCHOLINE CHLORIDE 200 MG/10 ML INJ MDV ONE (17:13)
[2020-02-13] MEDS ORDERED: fentaNYL 100 MCG/2 ML INJ ONE (17:13)
[2020-02-13] MEDS ORDERED: PHENYLEPHRINE/NS 1,000 MCG/10 ML SYRINGE (OR USE) IV ONE (17:13)
[2020-02-13] MEDS ORDERED: propofoL 200 MG/20 ML VIAL IV ONE (17:13)
[2020-02-13] MEDS ORDERED: NEOSTIGMINE 10MG/10 ML INJ MDV ONE (17:13)
[2020-02-13] MEDS ORDERED: LIDOCAINE MPF (2%) 20 MG/1 ML VIAL 5 ML ONE (17:13)
[2020-02-13] MEDS ORDERED: ONDANSETRON 4 MG/2 ML INJ ONE (17:13)
[2020-02-13] MEDS ORDERED: ROCURONIUM 50 MG/5 ML INJ IV ONE (17:13)
[2020-02-13] MEDS ORDERED: GLYCOPYRROLATE 0.4 MG/2 ML INJ ONE (17:13)
--- NOTE | 2020-02-13 17:55 | Consultation ---
History of Present Illness Consult date: 02/13/20 Consult reason: atrial fibrillation History of present illness: The patient is a 74-year-old woman admitted to this hospital 2 days ago with abdominal pain, leukocytosis and acute renal failure. Her WBC has ranged between 25 and 33,000. The creatinine level has been 3.0. She is undergoing a work-up by surgery and infectious disease, differential diagnosis of acute abdomen versus ischemic bowel. Cardiology consultation is requested for the finding of a persistent atrial fibrillation on her ECG since her presentation. The patient remains in the ICU, is quite lethargic, with NG tube to suction, not able to provide a history. We therefore do not know the chronicity of her atrial fibrillation. Home medications suggest a history of hypertension and diabetes. There is no anticoagulation listed on her medications. Serial ECGs show atrial fibrillation with a mostly well-controlled ventricular r ate. Her rate on the monitor currently is 77, and blood pressure is 90/57. Past History Past Medical History: diabetes, hypertension, hyperlipidemia, other (See HPI) Past Surgical History: cholecystectomy, hysterectomy, tonsillectomy Social history: , Lives alone. denies: smoking, alcohol abuse, prescription drug abuse Family history: no significant family history (Reviewed) Medications and Allergies Allergies Allergy/AdvReac Type Severity Reaction Status Date / Time clindamycin Allergy Hives Verified 02/11/20 14:52 Home Medications Medication Instructions Recorded Confirmed Last Taken Type Doxazosin [Cardura] 4 mg PO QDAY 02/11/20 02/11/20 02/10/20 History Hydralazine HCl 50 mg PO DAILY 02/11/20 02/11/20 02/10/20 History Metoprolol 25 mg PO DAILY 02/11/20 02/11/20 02/10/20 History Sertraline [Zoloft] 50 mg PO QDAY 02/11/20 02/11/20 02/10/20 History amLODIPine [Norvasc] 10 mg PO DAILY 02/11/20 02/11/20 02/10/20 History glipiZIDE 10 mg PO BID 02/11/20 02/11/20 02/10/20 History Active Meds: Active Medications Acetaminophen (Tylenol) 650 mg PO Q4H PRN PRN Reason: Pain MILD(1-3)/Fever >100.5/ADAMS Last Admin: 02/12/20 17:00 Dose: 650 mg Documented by: Albumin Human (Alburx 25% (Albumin)) 25 gm IV Q12HR NADER Stop: 02/14/20 12:00 Last Admin: 02/13/20 11:03 Dose: 25 gm Documented by: Clonidine HCl (Catapres) 0.1 mg PO Q8HR PRN PRN Reason: Blood Pressure Famotidine (Pepcid) 20 mg IV QDAY [facility] Last Admin: 02/13/20 14:48 Dose: 20 mg Documented by: Hydralazine HCl (Apresoline) 10 mg IV Q6HR PRN PRN Reason: Hypertension Last Admin: 02/12/20 00:27 Dose: 10 mg Documented by: Hydromorphone HCl (Dilaudid) 0.5 mg IV Q4H PRN PRN Reason: Pain , Severe (7-10) Last Admin: 02/13/20 14:51 Dose: 0.5 mg Documented by: Metronidazole (Flagyl 500 Mg/100 Ml) 500 mg in 100 mls @ 100 mls/hr IV Q8HR NADER Last Admin: 02/13/20 13:39 Dose: 100 mls/hr Documented by: Levofloxacin/Dextrose (Levaquin 250mg/50ml) 250 mg in 50 mls @ 50 mls/hr IV Q24HR [facility]; Protocol Last Admin: 02/13/20 11:27 Dose: 50 mls/hr Documented by: Sodium Bicarbonate 75 meq/ (Sodium Chloride) 1,075 mls @ 125 mls/hr IV DIRECT NADER Last Admin: 02/13/20 11:27 Dose: 125 mls/hr Documented by: Labetalol HCl 200 mg/ Dextrose 200 mls @ 120 mls/hr IV TITR NADER; Protocol Insulin Human Lispro (Humalog) 0 unit SUB-Q Q6HR NADER; Protocol Last Admin: 02/13/20 16:44 Dose: 6 unit Documented by: Metoprolol Tartrate (Metoprolol) 25 mg PO DAILY [facility] Last Admin: 02/13/20 09:40 Dose: Not Given Documented by: Morphine Sulfate (Morphine) 3 mg IV Q4H PRN PRN Reason: Pain, Moderate (4-6) Last Admin: 02/13/20 13:39 Dose: 3 mg Documented by: Ondansetron HCl (Zofran) 4 mg IV Q8H PRN PRN Reason: Nausea And Vomiting Last Admin: 02/12/20 05:44 Dose: 4 mg Documented by: Sodium Chloride (Sodium Chloride Flush Syringe 10 Ml) 10 ml IV BID NADER Last Admin: 02/13/20 09:40 Dose: Not Given Documented by: Sodium Chloride (Sodium Chloride Flush Syringe 10 Ml) 10 ml IV PRN PRN PRN Reason: LINE FLUSH Review of Systems ROS unobtainable: due to mental status Physical Examination Vital Signs Temp Pulse Resp BP Pulse Ox 97.6 F 118 H 16 222/121 98 02/11/20 14:39 02/11/20 14:39 02/11/20 14:39 02/11/20 14:39 02/11/20 14:39 General appearance: mild distress HEENT: Positive: PERRL Neck: Positive: neck supple Cardiac: Positive: irregularly irregular Lungs: Positive: Decreased Breath Sounds Neuro: Positive: Weakness Abdomen: Positive: Distended Female genitourinary: deferred Skin: Positive: Clear Extremities: Absent: edema Results 02/13/20 05:43 02/13/20 05:43 CBC 02/13/20 Range/Units 05:43 WBC 38.2 H (4.5-11.0) K/mm3 RBC 4.88 (3.65-5.03) M/mm3 Hgb 13.8 (10.1-14.3) gm/dl Hct 43.6 H (30.3-42.9) % Plt Count 348 (140-440) K/mm3 Comprehensive Metabolic Panel 02/13/20 Range/Units 05:43 Sodium 136 L (137-145) mmol/L Potassium 4.6 (3.6-5.0) mmol/L Chloride 104.9 (98-107) mmol/L Carbon Dioxide 11 L (22-30) mmol/L BUN 71 H (7-17) mg/dL Creatinine 4.0 H (0.7-1.2) mg/dL Glucose 343 H (65-100) mg/dL Calcium 8.8 (8.4-10.2) mg/dL EKG interpretations - Telemetry EKG Rhythm: Atrial Fibrillation Assessment and Plan - Patient Problems (1) Atrial fibrillation Current Visit: Yes Status: Acute Plan to address problem: Patient has a persistent atrial fibrillation, of uncertain chronicity. Rate control is currently optimal, patient's current medications are clonidine, labetalol and low-dose metoprolol, but has been on hold due to blood pressure concerns. Recommend echocardiogram for left ventricular function assessment, and judicious use of AV samantha blocking agents as tolerated for A. fib rate control.
[2020-02-13] MEDS ORDERED: SODIUM CHLORIDE 0.9% IRR 1,500 ML BOTTLE IR ONE ×2 (18:28)
[2020-02-13] MEDS ORDERED: LACTATED RINGERS 1,000 ML ONE (18:40)
[2020-02-13] MEDS ORDERED: SODIUM CHLORIDE 0.9% 500 ML 500 ML ONE (18:49)
[2020-02-13] MEDS ORDERED: ONDANSETRON 4 MG/2 ML INJ IV PRN (19:21)
[2020-02-13] MEDS ORDERED: fentaNYL 100 MCG/2 ML INJ IV PRN (19:21)
[2020-02-13] MEDS ORDERED: MINERAL OIL/PETROLATUM, WHITE OPHTH OINT 3.5 GM OU PRN (19:41)
[2020-02-13] MEDS ORDERED: LIP THERAPY VASELINE TP PRN (19:41)
[2020-02-13] MEDS ORDERED: SODIUM CHLORIDE 0.9% 500 ML IVPB IV PRN (19:41)
--- NOTE | 2020-02-13 19:50 | Post Operative Note ---
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 Succus in the abdomen Procedure: Exploratory laparotomy, extensive small bowel resection, partial colon resection, placement of abthera vac, placement of right radial arterial line Anesthesia: LAMAR Surgeon: JASS MURGUIA Estimated blood loss: minimal Pathology: list (small bowel and cecum) Specimen disposition: to lab Condition: stable Disposition: ICU (Pt kept intubated on propofol and fentanyl gtt. Plan to return to OR in 48-72 hours for second look. Pt to remain sedated and intubated until then. Will be started on heparin gtt and vascular surgery consulted)
--- NOTE | 2020-02-13 20:07 | Post Anesthesia Evaluation ---
<GYPSY JONES - Last Filed: 02/13/20 20:04> - Post Anesthesia Evaluation Patient Participated: No Airway Patent: Yes Stable Respiratory Function: Yes Nausea/Vomiting: No Temp > 96.8F: Yes Pain Manageable: Yes Adequeate Hydration: Yes Anesthesia Complications: No Block Receding Appropriately: Not Applicable Patient on Ventilator: Yes (per surgeons request, pt left on vent. The pt will be returning to the OR) <CLAUDIO CARDENAS - Last Filed: 02/23/20 13:09> - Post Anesthesia Evaluation Other Comments: Document co-signed for chart completion purposes only.
[2020-02-13 20:20] LABS: Hematocrit 34.4 % (30.3-42.9); Hemoglobin 11.4 gm/dl (10.1-14.3)
--- NOTE | 2020-02-13 20:25 | XRay Report ---
CHEST 1 VIEW 2000 INDICATION / CLINICAL INFORMATION: ETT placement. COMPARISON: 02/11/2020 FINDINGS: SUPPORT DEVICES: Endotracheal tube has been inserted and appears to be in satisfactory position with tip approximately 7.5 cm above the jaziel at the lower sternal notch level. A nasogastric tube is now seen as well extending well into the stomach. HEART / MEDIASTINUM: No significant abnormality. LUNGS / PLEURA: Mild chronic appearing changes are again seen. No definite areas of consolidation are noted. No pneumothorax. ADDITIONAL FINDINGS: No significant additional findings. IMPRESSION: Device positioning appears appropriate Signer Name: Salvador Savage MD Signed: 02/13/2020 8:20 PM Workstation Name: [id number]
[2020-02-13 20:27] LABS: INR 1.41 (0.87-1.13)
[2020-02-13 20:28] LABS: Partial Thromboplastin Time 35.3 Sec. (24.2-36.6)
[2020-02-13] MEDS: HEPARIN/ 0.45% NACL DRIP 25,000 UNIT/500 ML BAG IV SCH (22:01)
[2020-02-13 22:25] LABS: ABG Base Excess -10.2 mmol/L (-2.0-3.0); ABG HCO3 18.6 mmol/L (20.0-26.0); ABG Methemoglobin 0.8 % (0.0-1.5); ABG Oxygen Saturation 95.3 % (95.0-99.0); ABG PCO2 53.5 mm Hg; ABG PO2 83.8 mm Hg (80.0-90.0)
[2020-02-13 22:27] LABS: ABG PH 7.158 pH Units (7.350-7.450)
[2020-02-13] MEDS ORDERED: SODIUM CHLORIDE 0.9% 1000 ML 1,000 ML IV ONE (22:57)
--- NOTE | 2020-02-13 23:23 | Operative Report ---
Operative Report Operative Report: Date: 02/13/20 I Pre-op diagnosis: peritonitis Post-op diagnosis: other (ischemic bowel with gangrene) Findings: Ischemia and gangrene of the mid and distal small bowel and cecum. Succus in the abdomen I/Os IVF: 2100cc UO: 25cc Procedure: Exploratory laparotomy, extensive small bowel resection, partial colon resection, placement of abthera vac, placement of right radial arterial line Anesthesia: LAMAR Surgeon: JASS MURGUIA Estimated blood loss: minimal Pathology: list (small bowel and cecum) Specimen disposition: to lab Condition: stable Disposition: ICU (Pt kept intubated on propofol and fentanyl gtt. Plan to return to OR in 48-72 hours for second look. Pt to remain sedated and intubated until then. Will be started on heparin gtt and vascular surgery consulted) HPI and indication: The patient is a 74-year-old female who presented to the hospital 2 days prior with abdominal pain, flank pain. Initial CT scan was unremarkable except for polycystic kidneys and the patient was admitted for further work-up. She was started on antibiotics, IV fluids, and seen by infectious disease service and nephrology. Surgery was consulted for persistent abdominal pain. The patient's leukocytosis was trending up and repeat CT scan showed possible developing small bowel obstruction. On serial exams, the patient continued to have severe diffuse abdominal pain. The case was discussed with the GI Attending and consideration was given to ischemic bowel. It was recommended that the patient be taken to the operating room for evaluation. All risks, benefits, alternatives to surgery were discussed with the patient's daughter and grand niece. Consent was obtained from the patient's daughter who is her next of kin. Procedure in detail: The patient was identified in her ICU bed and taken down to the operating room and placed on the operating room table in supine position. After anesthesia was induced the right arm was tucked and all bony prominences padded appropriately and the abdomen was prepped and draped in usual sterile fashion. Timeout was performed. Towel clips were placed on either side of the umbilicus and the skin tented upwards. A Veress needle was inserted into the umbilicus and positioning confirmed using the saline drop test. The insufflation was connected and initially the insufflation pressures were low, but there was rapid insufflation to 15 mmHg and so the insufflator was disconnected. Upon examination of the Veress needle there was stool-like content visible and the Veress needle was removed. At this point it was decided to perform an exploratory laparotomy. A midline incision was made using a 10 blade carried out from the mid epigastrium and around the umbilicus. Dissection was carried down through the skin and subcutaneous tissue using Bovie electrocautery until the fascia was encountered. The fascia was scored and the posterior fascia was then grasped between 2 hemostats and tented upwards. This was incised using a Metzenbaum scissor and the abdomen entered. The remainder of the fascia was then opened in the cephalad and caudad direction over 2 gloved fingers. As the fascia was being opened towards the umbilicus it was noted that there was frankly gangrenous bowel with interloop adhesions as well as adhesions to most of the anterior wall of mid abdomen. These adhesions were able to be taken down bluntly. There was also succus present in the abdomen. After the incision was completely opened, the bowel was eviscerated. Upon initial inspection, a large amount of small bowel appeared to be ischemic with danilo necrosis and gangrene. The ligament of treitz was identified and small bowel ran distally. Approximately 45 to 50 cm distal to the ligament of Treitz, the bowel was ischemic and necrotic. The bowel was ran to the terminal ileum and all appeared ischemic or gangrenous. The ischemia extended to the cecum and there was a clear demarcation between unhealthy and healthy bowel at the ascending colon. There were no palpable pulses in the mesentery of the ischemic and necrotic bowel. There was no palpable pulse in the ileocolic vessels nor was there a dopplerable signal. This appeared to be consistent with a infarct of the bowel being supplied by the SMA territory. The decision was made to perform a bowel resection. The proximal area of resection was chosen at the demarcation between healthy and ischemic small bowel. A window was created in the mesentery using the electrocautery and the small bowel was transected using a MARIE 75 mm blue load stapler. The mesentery was then ligated with an Enseal. The cecum and the terminal ileum were then freed from lateral peritoneal attachments by taking down the white line of Toldt. The cecum was mobilized medially along with the ascending colon. A window was made in the mesentery between the cecum and ascending colon at the site of demarcation. The colon was transected using a MARIE 75 mm blue load stapler. The remaining mesentery was ligated with the Enseal and the bowel was passed off the table as a specimen. The remainder of the colon was inspected and appeared to be pink and healthy. The middle colic vessels were investigated and there was a strongly dopplerable signal present. The mesentery of the remaining small bowel was investigated and there were strongly dopplerable signals in various locations. The NG tube was palpated and appeared to be in proper position. The stomach was unremarkable. At this point the abdomen was irrigated with greater than 3 L of warm saline until all of the irrigant returned clear. All 4 quadrants of the abdomen were checked for hemostasis along with the ligated mesentery. There was no bleeding identified and hemostasis was carefully ensured. I then decided to temporarily close the abdomen with an AB Thera VAC in order to continue resuscitation of the patient and bring her back to the operating room for second look to ensure no further ischemia developed of the remaining bowel. The AB Thera wound VAC was applied in the usual fashion and connected to -125 mmHg suction. All of the blue foam was compressed and there was a good seal. At the end of the case, all sharps, instrument, sponge counts were correct x2. As the patient was remaining intubated and had episodes of hypotension in the operating room, not requiring pressors, the decision was made to place an arterial line. The right wrist was hyperextended and the area cleansed with an alcohol wipe. Using sterile technique, the radial pulse was palpated and the radial artery was accessed on the first stick. The radial artery was cannulated successfully with return of pulsatile blood. This was connected to the arterial line pressure bag and the line flushed easily. The arterial line was secured to the wrist using a Tegaderm and a splint. The patient was then transferred to the bed and taken to the ICU intubated, in stable condition.
[2020-02-14] MEDS: INSULIN LISPRO 100 UNIT/ML SUB-Q SCH ×4 (00:18→18:35)
[2020-02-14 04:17] LABS: ABG Base Excess -11.2 mmol/L (-2.0-3.0); ABG HCO3 16.4 mmol/L (20.0-26.0); ABG Methemoglobin 0.7 % (0.0-1.5); ABG Oxygen Saturation 96.2 % (95.0-99.0); ABG PCO2 43.6 mm Hg; ABG PO2 86.3 mm Hg (80.0-90.0)
[2020-02-14 04:23] LABS: ABG PH 7.193 pH Units (7.350-7.450)
[2020-02-14] MEDS: METOPROLOL TARTRATE 5 MG/5 ML INJ IV PRN ×2 (04:46→10:46)
[2020-02-14 05:24] LABS: Hematocrit 33.9 % (30.3-42.9); Mean Corpuscular HGB Conc 33 % (30-34); Mean Corpuscular Volume 89 fl (79-97); Platelet Count 175 K/mm3 (140-440); Red Blood Count 3.82 M/mm3 (3.65-5.03); Red Cell Distribution Width 15.3 % (13.2-15.2)
--- NOTE | 2020-02-14 05:38 | XRay Report ---
CHEST 1 VIEW INDICATION: follow up respiratory failure COMPARISON: 02/13/2020 FINDINGS: SUPPORT DEVICES: Endotracheal tubes in good position. Nasogastric tube has tip below diaphragm HEART / MEDIASTINUM: No significant abnormality. LUNGS / PLEURA: No significant pulmonary or pleural abnormality. No pneumothorax. ADDITIONAL FINDINGS: IMPRESSION: 1. No acute cardiopulmonary disease Signer Name: Eric Graves MD Signed: 02/14/2020 5:33 AM Workstation Name: [id number]
[2020-02-14 07:05] LABS: Anisocytosis 1+; Band Neutrophils # (Manual) 0.1 K/mm3; Basophils % (Manual) 0 % (0.0-1.8); Platelet Estimate Consistent w Auto; Total Cells Counted 100
[2020-02-14] MEDS: metroNIDAZOLE/NS 500 MG/100 ML 500 MG/100 ML BAG IV SCH ×3 (07:41→22:43)
--- NOTE | 2020-02-14 08:16 | Progress Note ---
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 * leucocytosis * type 2 DM--uncontrolled Plan: * ivfs and iv abx for volume depletion with uti * added levaquin for increase concentration inside renal cyst * hematology consult for leucocytosis--not available * surgery note reviewed, s/p surgery * daily lytes and strict i/os * avoid nephrotoxins * ct noted, no stones or hydronephrosis * likely now with ATN, due to hypotension, cr worse * give iv albumin and bicarb gtt * vasopressors prn Subjective Date of service: 02/14/20 Principal diagnosis: sepsis, litzy on ckd Interval history: resting in bed Objective - Exam Narrative Exam: - General Limitations: No Limitations General appearance: alert, in no apparent distress - Head Head exam: Present: atraumatic, normocephalic, normal inspection - Eye Eye exam: Present: normal appearance - ENT ENT exam: Present: normal exam, normal orophraynx, mucous membranes moist - Neck Neck exam: Present: normal inspection, full ROM. Absent: tenderness, meningismus - Respiratory Respiratory exam: Present: normal lung sounds bilaterally - Cardiovascular Cardiovascular Exam: Present: tachycardia, irregular rhythm - GI/Abdominal GI/Abdominal exam: sounds Absent: distended, tenderness, guarding, rebound, rigid, mass, bruit, pulsatile mass, hernia - Extremities Exam Extremities exam: Present: normal inspection, full ROM, normal capillary refill. Absent: pedal edema, calf tenderness - Back Exam Back exam: Present: normal inspection, full ROM. Absent: CVA tenderness (R), CVA tenderness (L) - Neurological Exam Neurological exam: Present: alert, oriented X3, reflexes normal. Absent: CN II- XII intact, normal gait - Psychiatric Psychiatric exam: Present: normal mood - Skin Skin exam: Present: warm, intact, normal color - Vital Signs Vital signs: Vital Signs - 12hr 02/13/20 02/13/20 02/13/20 20:15 20:20 20:30 Temperature Pulse Rate 77 78 78 Respiratory 12 12 12 Rate Blood Pressure 110/44 115/40 105/48 O2 Sat by Pulse 99 97 95 Oximetry 02/13/20 02/13/20 02/13/20 20:40 20:45 20:50 Temperature Pulse Rate 78 77 79 Respiratory 12 12 12 Rate Blood Pressure 98/44 110/41 O2 Sat by Pulse 95 96 97 Oximetry 02/13/20 02/13/20 02/13/20 21:00 21:10 21:20 Temperature Pulse Rate 78 78 78 Respiratory 12 12 12 Rate Blood Pressure 112/50 112/50 111/52 O2 Sat by Pulse 95 95 98 Oximetry 02/13/20 02/13/20 02/13/20 21:30 21:40 21:50 Temperature Pulse Rate 77 77 77 Respiratory 12 12 12 Rate Blood Pressure 116/55 111/52 114/51 O2 Sat by Pulse 96 97 97 Oximetry 02/13/20 02/13/20 02/13/20 22:00 22:10 22:20 Temperature Pulse Rate 78 78 77 Respiratory 12 11 L 10 L Rate Blood Pressure 121/59 116/55 126/53 O2 Sat by Pulse 97 98 Oximetry 02/13/20 02/13/20 02/13/20 22:30 22:33 22:40 Temperature Pulse Rate 77 76 77 Respiratory 12 12 12 Rate Blood Pressure 123/51 123/51 123/51 O2 Sat by Pulse 97 97 97 Oximetry 02/13/20 02/13/20 02/13/20 22:50 23:00 23:10 Temperature Pulse Rate 79 77 77 Respiratory 16 16 16 Rate Blood Pressure 123/59 127/60 123/51 O2 Sat by Pulse 97 97 97 Oximetry 02/13/20 02/13/20 02/13/20 23:20 23:30 23:38 Temperature 96.8 F L Pulse Rate 75 76 Respiratory 16 16 Rate Blood Pressure 136/65 135/61 O2 Sat by Pulse 97 97 Oximetry 02/13/20 02/13/20 02/14/20 23:40 23:50 00:00 Temperature Pulse Rate 76 76 77 Respiratory 13 16 16 Rate Blood Pressure 135/61 148/64 145/63 O2 Sat by Pulse 97 97 98 Oximetry 02/14/20 02/14/20 02/14/20 00:10 00:20 00:30 Temperature Pulse Rate 77 78 78 Respiratory 16 16 15 Rate Blood Pressure 145/63 145/64 144/64 O2 Sat by Pulse 97 97 97 Oximetry 02/14/20 02/14/20 02/14/20 00:40 00:50 01:00 Temperature Pulse Rate 76 116 H 115 H Respiratory 16 16 16 Rate Blood Pressure 144/64 134/60 134/60 O2 Sat by Pulse 97 96 96 Oximetry 06/20/20 06/20/20 06/20/20 01:10 01:13 01:20 Temperature Pulse Rate 112 H 78 111 H Respiratory 15 16 Rate Blood Pressure 144/64 113/57 O2 Sat by Pulse 95 95 Oximetry 20/20 06/20/20 06/20/20 01:30 01:40 01:50 Temperature Pulse Rate 121 H 124 H 120 H Respiratory 16 16 16 Rate Blood Pressure 113/57 113/54 112/55 O2 Sat by Pulse 95 95 95 Oximetry 20/20 06/20/20 06/20/20 02:00 02:10 02:20 Temperature Pulse Rate 124 H 120 H 127 H Respiratory 16 16 9 L Rate Blood Pressure 112/55 94/52 93/67 O2 Sat by Pulse 95 95 95 Oximetry 20/20 06/20/20 06/20/20 02:30 02:40 02:50 Temperature Pulse Rate 104 H 120 H 95 H Respiratory 13 16 17 Rate Blood Pressure 93/67 91/70 91/61 O2 Sat by Pulse 96 95 97 Oximetry 20/20 06/20/20 06/20/20 03:00 03:10 03:16 Temperature 97.4 F L Pulse Rate 123 H 121 H Respiratory 13 17 Rate Blood Pressure 91/61 O2 Sat by Pulse 96 96 Oximetry 20/20 06/20/20 06/20/20 03:20 03:30 03:40 Temperature Pulse Rate 128 H 118 H 104 H Respiratory 16 16 10 L Rate Blood Pressure 106/36 112/62 112/62 O2 Sat by Pulse 97 97 98 Oximetry /20/20 06/20/20 06/20/20 03:50 03:55 04:00 Temperature Pulse Rate 125 H 126 H 115 H Respiratory 17 16 Rate Blood Pressure 119/65 119/65 119/65 O2 Sat by Pulse 97 98 98 Oximetry 06/20/20 06/20/20 06/20/20 04:10 04:20 04:30 Temperature Pulse Rate 116 H 114 H 120 H Respiratory 19 14 17 Rate Blood Pressure 112/62 126/60 136/67 O2 Sat by Pulse 98 98 97 Oximetry 20/20 06/20/20 06/20/20 04:40 04:46 04:50 Temperature Pulse Rate 124 H 130 H 115 H Respiratory 18 16 Rate Blood Pressure 136/67 101/71 123/31 O2 Sat by Pulse 99 98 Oximetry 02/14/20 08:00 Temperature Pulse Rate 84 Respiratory Rate Blood Pressure O2 Sat by Pulse 99 Oximetry - Lab 02/14/20 04:29 02/14/20 04:29 Most recent lab results ABG pH 7.193 pH Units (7.350-7.450) L* 02/14/20 03:45 ABG pCO2 43.6 mm Hg 02/14/20 03:45 ABG pO2 86.3 mm Hg (80.0-90.0) 02/14/20 03:45 ABG HCO3 16.4 mmol/L (20.0-26.0) L 02/14/20 03:45 ABG O2 Saturation 96.2 % (95.0-99.0) 02/14/20 03:45 Calcium 8.0 mg/dL (8.4-10.2) L 02/14/20 04:29 Urine Creatinine 35.3 mg/dL (0.1-20.0) H 02/12/20 Unknown Urine Total Protein 796 mg/dL (5-11.8) H 02/12/20 Unknown Medications & Allergies - Medications Allergies/Adverse Reactions: Allergies clindamycin Allergy (Verified 02/11/20 14:52) Hives Home Medications: Home Medications Medication Instructions Recorded Confirmed Last Taken Type Doxazosin [Cardura] 4 mg PO QDAY 02/11/20 02/11/20 02/10/20 History Hydralazine HCl 50 mg PO DAILY 02/11/20 02/11/20 02/10/20 History Metoprolol 25 mg PO DAILY 02/11/20 02/11/20 02/10/20 History Sertraline [Zoloft] 50 mg PO QDAY 02/11/20 02/11/20 02/10/20 History amLODIPine [Norvasc] 10 mg PO DAILY 02/11/20 02/11/20 02/10/20 History glipiZIDE 10 mg PO BID 02/11/20 02/11/20 02/10/20 History Active Medications: Generic Name Dose Route Start Last Admin Trade Name Freq PRN Reason Stop Dose Admin Acetaminophen 650 mg 02/11/20 19:01 02/12/20 17:00 Tylenol PO 650 mg Q4H PRN Administration Pain MILD(1-3)/Fever >100.5/ADAMS Albumin Human 25 gm 02/13/20 11:00 02/13/20 23:28 Alburx 25% (Albumin) IV 02/14/20 12:00 25 gm Q12HR NADER Administration Famotidine 20 mg 02/13/20 15:00 02/13/20 14:48 Pepcid IV 20 mg QDAY NADER Administration Fentanyl 50 mcg 02/13/20 19:21 Sublimaze IV Q5MIN PRN Pain , Severe (7-10) Hydralazine HCl 10 mg 02/11/20 18:07 02/12/20 00:27 Apresoline IV 10 mg Q6HR PRN Administration Hypertension Hydrophilic Ointment 1 applic 02/13/20 19:41 Vaseline Lip Therapy TP Q2HR PRN Dry Lips Metronidazole 500 mg in 100 mls @ 100 mls/hr 02/12/20 15:40 02/14/20 07:41 Flagyl 500 Mg/100 Ml IV 100 mls/hr Q8HR NADER Administration Levofloxacin/Dextrose 250 mg in 50 mls @ 50 mls/hr 02/13/20 11:00 02/13/20 11:27 Levaquin 250mg/50ml IV 50 mls/hr Q24HR NADER Administration Protocol Sodium Bicarbonate 75 meq/ 1,075 mls @ 125 mls/hr 02/13/20 11:00 02/13/20 11:27 Sodium Chloride IV 125 mls/hr DIRECT NADER Administration Fentanyl Citrate 2,000 mcg in 100 mls @ 3.4 mls/hr 02/13/20 20:00 Fentanyl Drip Premix IV TITR NADER Protocol 1 MCG/KG/HR Propofol 1,000 mg in 100 mls @ 2.04 mls/hr 02/13/20 20:00 02/14/20 04:38 Diprivan 10 Mg/Ml IV 25 mcg/kg/min TITR NADER 10.2 mls/hr Titration Protocol 5 MCG/KG/MIN Heparin Sodium/Sodium Chloride 25,000 unit in 500 mls @ 20 mls/hr 02/13/20 20:00 02/13/20 22:01 Heparin/ 0.45% Nacl-25,000 Unit/500 Ml IV 1,000 units/hr TITR NADER 20 mls/hr Administration Protocol 1,000 UNITS/HR Insulin Human Lispro 0 unit 02/13/20 12:00 02/14/20 07:42 Humalog SUB-Q 3 unit Q6HR NADER Administration Protocol Labetalol HCl 20 mg 02/13/20 18:00 Labetalol IV Q4H PRN SBP >150 Metoprolol Tartrate 2.5 mg 02/13/20 18:00 02/14/20 04:46 Metoprolol IV 2.5 mg Q6HR PRN Administration HR >130 Multi-Ingred Cream/Lotion/Oil/Oint 1 applic 02/13/20 19:41 Artificial Tears Ophth Oint OU Q4HR PRN Dry Eye(s) Ondansetron HCl 4 mg 02/11/20 19:01 02/12/20 05:44 Zofran IV 4 mg Q8H PRN Administration Nausea And Vomiting Ondansetron HCl 4 mg 02/13/20 19:21 Zofran IV ONCE PRN Nausea And Vomiting Sodium Chloride 10 ml 02/11/20 22:00 02/13/20 23:17 Sodium Chloride Flush Syringe 10 Ml IV 10 ml BID NADER Administration Sodium Chloride 10 ml 02/11/20 19:01 Sodium Chloride Flush Syringe 10 Ml IV PRN PRN LINE FLUSH Sodium Chloride 5 ml 02/13/20 19:41 Nacl 0.9% 500 Ml IV DIRECT PRN [employer]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
[2020-02-14] MEDS: FAMOTIDINE 20 MG/2 ML INJ IV SCH (09:06)
--- NOTE | 2020-02-14 10:43 | Progress Note ---
Assessment and Plan 1. Status post laparotomy for ischemic bowel resection 2. Permanent atrial fibrillation 3. Essential hypertension 4. Type 2 diabetes mellitus 5. Metabolic encephalopathy 6. Hyperlipidemia. 7. Leukocytosis and sepsis 8. Acute renal failure Plan. Patient is critically ill with evidence of combined metabolic and respiratory acidosis which is being addressed by PCP fluid management as per nephrology given acute renal failure will continue to monitor cardiac status we will check her echocardiogram. Subjective Date of service: 02/14/20 Principal diagnosis: sepsis, ashley on ckd Interval history: Intubated and sedated Objective Vital Signs Temp Pulse Resp BP Pulse Ox 02/14/20 10:30 129 H 15 130/66 98 02/14/20 10:00 122 H 16 135/72 97 02/14/20 09:30 105 H 16 133/65 97 02/14/20 09:00 86 16 139/59 98 02/14/20 08:30 82 16 140/58 97 02/14/20 08:00 87 17 139/69 97 02/14/20 07:30 83 16 151/62 97 02/14/20 07:00 83 17 156/67 98 02/14/20 06:30 81 15 147/79 98 02/14/20 06:00 79 16 111/59 99 02/14/20 05:30 87 13 126/102 98 02/14/20 05:00 117 H 16 114/68 02/14/20 04:50 115 H 16 123/31 98 02/14/20 04:46 130 H 101/71 02/14/20 04:40 124 H 18 136/67 99 02/14/20 04:30 120 H 17 136/67 97 02/14/20 04:20 114 H 14 126/60 98 02/14/20 04:10 116 H 19 112/62 98 02/14/20 04:00 115 H 16 119/65 98 02/14/20 03:55 126 H 119/65 98 02/14/20 03:50 125 H 17 119/65 97 02/14/20 03:40 104 H 10 L 112/62 98 02/14/20 03:30 118 H 16 112/62 97 02/14/20 03:20 128 H 16 106/36 97 02/14/20 03:16 97.4 F L 02/14/20 03:10 121 H 17 91/61 96 06/20/20 03:00 123 H 13 96 20/20 02:50 95 H 17 91/61 97 /20/20 02:40 120 H 16 91/70 95 /20/20 02:30 104 H 13 93/67 96 20/20 02:20 127 H 9 L 93/67 95 20/20 02:10 120 H 16 94/52 95 /20/20 02:00 124 H 16 112/55 95 20/20 01:50 120 H 16 112/55 95 20/20 01:40 124 H 16 113/54 95 20/20 01:30 121 H 16 113/57 95 20/20 01:20 111 H 16 113/57 95 20/20 01:13 78 20 01:10 112 H 15 144/64 95 20/20 01:00 115 H 16 134/60 96 /20/20 00:50 116 H 16 134/60 96 20/20 00:40 76 16 144/64 97 20/20 00:30 78 15 144/64 97 20/20 00:20 78 16 145/64 97 20/20 00:10 77 16 145/63 97 /20/20 00:00 77 16 145/63 98 19/20 23:50 76 16 148/64 97 19/20 23:40 76 13 135/61 97 /19/20 23:38 96.8 F L 1920 23:30 76 16 135/61 97 /19/20 23:20 75 16 136/65 97 19/20 23:10 77 16 123/51 97 06/19/20 23:00 77 16 127/60 97 06/19/20 22:50 79 16 123/59 97 06/19/20 22:40 77 12 123/51 97 06/19/20 22:33 76 12 123/51 97 /19/20 22:30 77 12 123/51 97 /19/20 22:20 77 10 L 126/53 98 06/19/20 22:10 78 11 L 116/55 97 /19/20 22:00 78 12 121/59 06/19/20 21:50 77 12 114/51 97 /19/20 21:40 77 12 111/52 97 06/19/20 21:30 77 12 116/55 96 06/19/20 21:20 78 12 111/52 98 06/19/20 21:10 78 12 112/50 95 06/19/20 21:00 78 12 112/50 95 06/19/20 20:50 79 12 110/41 97 06/19/20 20:45 77 12 96 06/19/20 20:40 78 12 98/44 95 06/19/20 20:30 78 12 105/48 95 06/19/20 20:20 78 12 115/40 97 06/19/20 20:15 77 12 110/44 99 06/19/20 20:10 77 14 124/52 100 06/19/20 20:05 77 12 124/52 100 06/19/20 20:00 75 14 120/58 100 06/19/20 19:55 78 12 105/48 96 06/19/20 19:53 97.5 F L /19/20 19:50 74 12 127/62 100 06/19/20 19:46 97.7 F 73 13 128/73 100 06/19/20 19:42 149/68 100 06/19/20 17:10 79 18 90/57 97 06/19/20 17:00 79 18 108/51 97 /19/20 16:50 78 18 108/51 97 06/19/20 16:40 78 18 108/51 96 /19/20 16:30 76 17 108/51 96 06/19/20 16:20 74 17 108/51 96 06/19/20 16:10 77 18 108/51 96 06/19/20 16:00 81 19 101/53 97 06/19/20 15:50 78 14 101/53 96 06/19/20 15:40 79 16 101/53 96 06/19/20 15:30 75 16 101/53 98 06/19/20 15:20 77 17 101/53 97 06/19/20 15:10 78 16 101/53 96 06/19/20 15:00 108 H 18 119/68 94 06/19/20 14:51 21 06/19/20 14:50 149 H 23 119/68 92 06/19/20 14:42 143 H 180/66 06/19/20 14:40 136 H 19 180/66 93 02/13/20 14:30 140 H 20 180/66 92 02/13/20 14:20 140 H 21 180/66 98 02/13/20 14:10 93 H 22 181/77 98 02/13/20 14:00 94 H 20 138/100 98 02/13/20 13:50 94 H 20 138/100 98 02/13/20 13:40 96 H 23 138/100 97 02/13/20 13:39 21 02/13/20 13:30 125 H 20 138/100 98 02/13/20 13:27 135 H 21 138/100 97 02/13/20 13:10 143 H 24 141/87 97 02/13/20 13:00 134 H 20 149/105 94 02/13/20 12:50 97 H 15 149/105 94 02/13/20 12:40 97 H 18 149/105 92 02/13/20 12:30 116 H 19 93 02/13/20 12:20 104 H 21 149/105 89 - Physical Examination General: Other (intubated and sedated) HEENT: Positive: PERRL Neck: Positive: neck supple, trachea midline. Negative: JVD/HJR Cardiac: Positive: S1/S2, S3, PMI, Dilated, Laterally Displaced Lungs: Positive: clear to auscultation, No Wheeze, Rales, Rhonchi Neuro: Positive: Weakness Abdomen: Positive: Distended Skin: Positive: Clear Extremities: Absent: edema - Labs and Meds Coagulation 02/13/20 Range/Units 20:10 PT 16.9 H (12.2-14.9) Sec. INR 1.41 H (0.87-1.13) APTT 35.3 (24.2-36.6) Sec. CBC 02/13/20 02/14/20 Range/Units 20:10 04:29 WBC 14.4 H (4.5-11.0) K/mm3 RBC 3.82 (3.65-5.03) M/mm3 Hgb 11.4 11.0 (10.1-14.3) gm/dl Hct 34.4 D 33.9 (30.3-42.9) % Plt Count 217 175 (140-440) K/mm3 Comprehensive Metabolic Panel 02/14/20 Range/Units 04:29 Sodium 141 (137-145) mmol/L Potassium 4.2 (3.6-5.0) mmol/L Chloride 108.5 H (98-107) mmol/L Carbon Dioxide 16 L (22-30) mmol/L BUN 73 H (7-17) mg/dL Creatinine 4.3 H (0.7-1.2) mg/dL Glucose 167 H (65-100) mg/dL Calcium 8.0 L (8.4-10.2) mg/dL
--- NOTE | 2020-02-14 11:21 | Progress Note ---
Subjective Date of service: 02/14/20 Principal diagnosis: sepsis, ashley on ckd Interval history: A/P Assessment and Plan - Patient Problems Ischemic/gangrenous bowel Status post, laparotomy extensive, small bowel resection and resection and partial colon resection General surgery consult and operative note reviewed and appreciated (1) Acute kidney injury rule out acute on chronic kidney disease Current Visit: Yes Status: Acute Plan to address problem: IV fluid resuscitation therapy, avoid nephrotoxic agents. Nephrology note reviewed Lab results reviewed Continue IV fluids Monitor renal function Nephrology note reviewed and appreciated (2) Abdominal pain Current Visit: Yes Status: Acute Plan to address problem: CT of the abdomen and pelvis results reviewed Unclear etiology UA reviewed no evidence of UTI Discussed with nephrology Will request consults by GI and general surgery as the abdomen is very tender for Repeat CT of the abdomen and pelvis today We will check serum lipase level N.p.o. Accelerated hypertension primary Current Visit: Yes Status: Acute hold amlodipine, clonidine and hydralazine Acute hypoxic respiratory failure Patient remains intubated Pulmonary following Continue management per Dr. Cervantes recommendations ABG results reviewed Atrial fibrillation Of uncertain chronicity Cardiology note reviewed Continue IV heparin Echocardiogram pending Hypotension: Improved r/o sepsis vs 2/2 medication IV fluids HAGMA secondary to acute renal failure Current Visit: Yes Status: Acute Plan to address problem: Nephrology following Continue per recommendations of nephrology Ketones are negative Continue sodium bicarbonate drip Neutrophilic leukocytosis; WBC count dropped to 14.4 today likely sepsis versus reactive Blood Cx - no growth ID following Patient is on IV Levaquin and Flagyl at this time Type 2 diabetes: Continue insulin sliding scale coverage No evidence of DKA Nicotine dependence Current Visit: Yes Status: Acute Qualifiers: Nicotine product type: cigarettes Substance use status: in withdrawal Qualified Code(s): F17.213 - Nicotine dependence, cigarettes, with withdrawal Plan to address problem: Smoking cessation counseling, behavior change counseling, supportive care, +15 minutes. DVT prophylaxis Current Visit: Yes Status: Acute Plan to address problem: SCD to bilateral lower extremities while in bed, patient is ambulatory 74-year-old female with history of diabetes and hypertension resting in the bed, alert and oriented, complains of abdominal and right mid back/flank pain She denies any fever or chills or dysuria. She denies any chest pain or shortness of breath. Denies nausea vomiting or diarrhea. Complains of pain all over the abdomen. Lab results reviewed. nephrology cardiology and pulmonary notes reviewed and appreciated Status post laparotomy Operative findings reviewed Physical Exam: Constitutional: Patient is sedated and intubated Head, Ears, Nose: Normocephalic, atraumatic Eyes: Conjunctivae/corneas clear. Neck: Supple Cardiovascular: S1, S2 normal. Tachycardia Respiratory: Good air entry, clear to auscultation , no rhonchi or wheezing GI: Soft, tender; absent bowel sounds, has abthera vac. In the mid abdomen Musculoskeletal: No pedal edema, no cyanosis. Skin: No rash or abscess Neurological: Patient is sedated, no gross abnormality Objective - Constitutional Vitals: Vital Signs - 12hr 02/13/20 02/13/20 02/13/20 23:20 23:30 23:38 Temperature 96.8 F L Pulse Rate 75 76 Respiratory 16 16 Rate Blood Pressure 136/65 135/61 O2 Sat by Pulse 97 97 Oximetry 02/13/20 02/13/20 02/14/20 23:40 23:50 00:00 Temperature Pulse Rate 76 76 77 Respiratory 13 16 16 Rate Blood Pressure 135/61 148/64 145/63 O2 Sat by Pulse 97 97 98 Oximetry 02/14/20 02/14/20 02/14/20 00:10 00:20 00:30 Temperature Pulse Rate 77 78 78 Respiratory 16 16 15 Rate Blood Pressure 145/63 145/64 144/64 O2 Sat by Pulse 97 97 97 Oximetry 02/14/20 02/14/20 02/14/20 00:40 00:50 01:00 Temperature Pulse Rate 76 116 H 115 H Respiratory 16 16 16 Rate Blood Pressure 144/64 134/60 134/60 O2 Sat by Pulse 97 96 96 Oximetry 02/14/20 02/14/20 02/14/20 01:10 01:13 01:20 Temperature Pulse Rate 112 H 78 111 H Respiratory 15 16 Rate Blood Pressure 144/64 113/57 O2 Sat by Pulse 95 95 Oximetry 02/14/20 02/14/20 02/14/20 01:30 01:40 01:50 Temperature Pulse Rate 121 H 124 H 120 H Respiratory 16 16 16 Rate Blood Pressure 113/57 113/54 112/55 O2 Sat by Pulse 95 95 95 Oximetry 02/14/20 02/14/20 02/14/20 02:00 02:10 02:20 Temperature Pulse Rate 124 H 120 H 127 H Respiratory 16 16 9 L Rate Blood Pressure 112/55 94/52 93/67 O2 Sat by Pulse 95 95 95 Oximetry 20/20 /20/20 2020 02:30 02:40 02:50 Temperature Pulse Rate 104 H 120 H 95 H Respiratory 13 16 17 Rate Blood Pressure 93/67 91/70 91/61 O2 Sat by Pulse 96 95 97 Oximetry 20/20 20/20 2020 03:00 03:10 03:16 Temperature 97.4 F L Pulse Rate 123 H 121 H Respiratory 13 17 Rate Blood Pressure 91/61 O2 Sat by Pulse 96 96 Oximetry 20/20 20/20 2020 03:20 03:30 03:40 Temperature Pulse Rate 128 H 118 H 104 H Respiratory 16 16 10 L Rate Blood Pressure 106/36 112/62 112/62 O2 Sat by Pulse 97 97 98 Oximetry 02/13/20 20/20 20 03:50 03:55 04:00 Temperature Pulse Rate 125 H 126 H 115 H Respiratory 17 16 Rate Blood Pressure 119/65 119/65 119/65 O2 Sat by Pulse 97 98 98 Oximetry 20/20 20/20 2020 04:10 04:20 04:30 Temperature Pulse Rate 116 H 114 H 120 H Respiratory 19 14 17 Rate Blood Pressure 112/62 126/60 136/67 O2 Sat by Pulse 98 98 97 Oximetry 20/20 /20/20 2020 04:40 04:46 04:50 Temperature Pulse Rate 124 H 130 H 115 H Respiratory 18 16 Rate Blood Pressure 136/67 101/71 123/31 O2 Sat by Pulse 99 98 Oximetry 20/20 /20/20 20/20 05:00 05:30 06:00 Temperature Pulse Rate 117 H 87 79 Respiratory 16 13 16 Rate Blood Pressure 114/68 126/102 111/59 O2 Sat by Pulse 98 99 Oximetry 20/20 /20/20 20/20 06:30 07:00 07:30 Temperature Pulse Rate 81 83 83 Respiratory 15 17 16 Rate Blood Pressure 147/79 156/67 151/62 O2 Sat by Pulse 98 98 97 Oximetry 20/20 /02/14/20 08:00 08:30 09:00 Temperature 97.4 F L Pulse Rate 87 82 86 Respiratory 17 16 16 Rate Blood Pressure 139/69 140/58 139/59 O2 Sat by Pulse 97 97 98 Oximetry 02/14/20 02/14/20 02/14/20 09:30 10:00 10:30 Temperature Pulse Rate 105 H 122 H 129 H Respiratory 16 16 15 Rate Blood Pressure 133/65 135/72 130/66 O2 Sat by Pulse 97 97 98 Oximetry 02/14/20 10:46 Temperature Pulse Rate 132 H Respiratory Rate Blood Pressure 116/67 O2 Sat by Pulse Oximetry - Labs CBC & Chem 7: 02/14/20 04:29 02/14/20 04:29 Labs: Abnormal lab results 02/13/20 02/13/20 02/13/20 Range/Units 13:24 16:49 16:50 WBC (4.5-11.0) K/mm3 RDW (13.2-15.2) % Seg Neuts % (Manual) (40.0-70.0) % Lymphocytes % (Manual) (13.4-35.0) % Seg Neutrophils # Man (1.8-7.7) K/mm3 Lymphocytes # (Manual) (1.2-5.4) K/mm3 PT (12.2-14.9) Sec. INR (0.87-1.13) ABG pH 7.226 L (7.350-7.450) pH Units ABG pO2 77.9 L (80.0-90.0) mm Hg ABG HCO3 16.4 L (20.0-26.0) mmol/L ABG Base Excess -10.5 L (-2.0-3.0) mmol/L ABG Hemoglobin 11.7 L (12.0-16.0) gm/dl Oxyhemoglobin 92.8 L (95.0-99.0) % Chloride (98-107) mmol/L Carbon Dioxide (22-30) mmol/L BUN (7-17) mg/dL Creatinine (0.7-1.2) mg/dL Glucose (65-100) mg/dL POC Glucose 337 H 272 H (70-105) Calcium (8.4-10.2) mg/dL 02/13/20 02/13/20 02/14/20 Range/Units 20:10 22:08 00:22 WBC (4.5-11.0) K/mm3 RDW (13.2-15.2) % Seg Neuts % (Manual) (40.0-70.0) % Lymphocytes % (Manual) (13.4-35.0) % Seg Neutrophils # Man (1.8-7.7) K/mm3 Lymphocytes # (Manual) (1.2-5.4) K/mm3 PT 16.9 H (12.2-14.9) Sec. INR 1.41 H (0.87-1.13) ABG pH 7.158 L* (7.350-7.450) pH Units ABG pO2 (80.0-90.0) mm Hg ABG HCO3 18.6 L (20.0-26.0) mmol/L ABG Base Excess -10.2 L (-2.0-3.0) mmol/L ABG Hemoglobin 11.9 L (12.0-16.0) gm/dl Oxyhemoglobin 93.1 L (95.0-99.0) % Chloride (98-107) mmol/L Carbon Dioxide (22-30) mmol/L BUN (7-17) mg/dL Creatinine (0.7-1.2) mg/dL Glucose (65-100) mg/dL POC Glucose 199 H (70-105) Calcium (8.4-10.2) mg/dL 02/14/20 02/14/20 02/14/20 Range/Units 03:45 04:29 04:29 WBC 14.4 H (4.5-11.0) K/mm3 RDW 15.3 H (13.2-15.2) % Seg Neuts % (Manual) 88.0 H (40.0-70.0) % Lymphocytes % (Manual) 6.0 L (13.4-35.0) % Seg Neutrophils # Man 12.7 H (1.8-7.7) K/mm3 Lymphocytes # (Manual) 0.9 L (1.2-5.4) K/mm3 PT (12.2-14.9) Sec. INR (0.87-1.13) ABG pH 7.193 L* (7.350-7.450) pH Units ABG pO2 (80.0-90.0) mm Hg ABG HCO3 16.4 L (20.0-26.0) mmol/L ABG Base Excess -11.2 L (-2.0-3.0) mmol/L ABG Hemoglobin 10.2 L (12.0-16.0) gm/dl Oxyhemoglobin 94.3 L (95.0-99.0) % Chloride 108.5 H (98-107) mmol/L Carbon Dioxide 16 L (22-30) mmol/L BUN 73 H (7-17) mg/dL Creatinine 4.3 H (0.7-1.2) mg/dL Glucose 167 H (65-100) mg/dL POC Glucose (70-105) Calcium 8.0 L (8.4-10.2) mg/dL 02/14/20 Range/Units 05:26 WBC (4.5-11.0) K/mm3 RDW (13.2-15.2) % Seg Neuts % (Manual) (40.0-70.0) % Lymphocytes % (Manual) (13.4-35.0) % Seg Neutrophils # Man (1.8-7.7) K/mm3 Lymphocytes # (Manual) (1.2-5.4) K/mm3 PT (12.2-14.9) Sec. INR (0.87-1.13) ABG pH (7.350-7.450) pH Units ABG pO2 (80.0-90.0) mm Hg ABG HCO3 (20.0-26.0) mmol/L ABG Base Excess (-2.0-3.0) mmol/L ABG Hemoglobin (12.0-16.0) gm/dl Oxyhemoglobin (95.0-99.0) % Chloride (98-107) mmol/L Carbon Dioxide (22-30) mmol/L BUN (7-17) mg/dL Creatinine (0.7-1.2) mg/dL Glucose (65-100) mg/dL POC Glucose 177 H (70-105) Calcium (8.4-10.2) mg/dL HEART Score - HEART Score Troponin: Troponin T < 0.010 ng/mL (0.00-0.029) 02/11/20 15:27
[2020-02-14] MEDS ORDERED: SODIUM CHLORIDE 0.9% 1000 ML 1,000 ML IV ONE (11:27)
[2020-02-14] MEDS ORDERED: dilTIAZem/D5W 100 MG/100 ML BAG IV SCH (12:00)
[2020-02-14] MEDS: dilTIAZem/D5W 100 MG/100 ML BAG IV SCH ×2 (13:02→18:26)
--- NOTE | 2020-02-14 13:40 | Progress Note ---
Assessment and Plan 74 y/o female with abdominal pain, hypotension, now hypertensive with tachycardia and pain, worrisome for SBO and inflammation in colon from diverticula with worsening renal function. 1. Continue deep sedation and pain control. No plans on weaning or extubation until abdominal issues are done. 2. Continue corcoran 3. Follow up surgery recs. Greatly appreciate them and their help. Plan for return to OR on Sunday. 4. IV abx, ID following. 5. Cardiology has elected for dilt drip. Suggest titrating. Gave nurse parameters. 6. Follow up renal rec Guarded prognosis. CCT 31 minutes. Subjective Date of service: 02/14/20 Principal diagnosis: sepsis, ashley on ckd Interval history: Patient went to OR on yesterday. Bowel found by surgery. Resected and wound left open and continued intubation. Heavily sedated. HR is uncontrolled and in afib. Nursing spoke with Cards today and placed on dilt drip. Sedated with Propofol Objective - Constitutional Vitals: Vital Signs - 12hr 02/14/20 02/14/20 02/14/20 01:40 01:50 02:00 Temperature Pulse Rate 124 H 120 H 124 H Respiratory 16 16 16 Rate Blood Pressure 113/54 112/55 112/55 O2 Sat by Pulse 95 95 95 Oximetry 02/14/20 02/14/20 02/14/20 02:10 02:20 02:30 Temperature Pulse Rate 120 H 127 H 104 H Respiratory 16 9 L 13 Rate Blood Pressure 94/52 93/67 93/67 O2 Sat by Pulse 95 95 96 Oximetry 02/14/20 02/14/20 02/14/20 02:40 02:50 03:00 Temperature Pulse Rate 120 H 95 H 123 H Respiratory 16 17 13 Rate Blood Pressure 91/70 91/61 O2 Sat by Pulse 95 97 96 Oximetry 02/14/20 02/14/20 02/14/20 03:10 03:16 03:20 Temperature 97.4 F L Pulse Rate 121 H 128 H Respiratory 17 16 Rate Blood Pressure 91/61 106/36 O2 Sat by Pulse 96 97 Oximetry 02/14/20 02/14/20 02/14/20 03:30 03:40 03:50 Temperature Pulse Rate 118 H 104 H 125 H Respiratory 16 10 L 17 Rate Blood Pressure 112/62 112/62 119/65 O2 Sat by Pulse 97 98 97 Oximetry 02/14/20 20 02/14/20 03:55 04:00 04:10 Temperature Pulse Rate 126 H 115 H 116 H Respiratory 16 19 Rate Blood Pressure 119/65 119/65 112/62 O2 Sat by Pulse 98 98 98 Oximetry 02/14/20 02/14/20 02/14/20 04:20 04:30 04:40 Temperature Pulse Rate 114 H 120 H 124 H Respiratory 14 17 18 Rate Blood Pressure 126/60 136/67 136/67 O2 Sat by Pulse 98 97 99 Oximetry 02/14/20 02/14/20 02/14/20 04:46 04:50 05:00 Temperature Pulse Rate 130 H 115 H 117 H Respiratory 16 16 Rate Blood Pressure 101/71 123/31 114/68 O2 Sat by Pulse 98 Oximetry 02/14/20 02/14/20 02/14/20 05:30 06:00 06:30 Temperature Pulse Rate 87 79 81 Respiratory 13 16 15 Rate Blood Pressure 126/102 111/59 147/79 O2 Sat by Pulse 98 99 98 Oximetry 02/14/20 02/14/20 02/14/20 07:00 07:30 08:00 Temperature 97.4 F L Pulse Rate 83 83 87 Respiratory 17 16 17 Rate Blood Pressure 156/67 151/62 139/69 O2 Sat by Pulse 98 97 97 Oximetry 02/14/20 02/14/20 02/14/20 08:30 09:00 09:30 Temperature Pulse Rate 82 86 105 H Respiratory 16 16 16 Rate Blood Pressure 140/58 139/59 133/65 O2 Sat by Pulse 97 98 97 Oximetry 02/14/20 02/14/20 02/14/20 10:00 10:30 10:46 Temperature Pulse Rate 122 H 129 H 132 H Respiratory 16 15 Rate Blood Pressure 135/72 130/66 116/67 O2 Sat by Pulse 97 98 Oximetry 20 20/20 02/14/20 11:00 11:17 11:30 Temperature Pulse Rate 115 H 132 H 108 H Respiratory 17 15 Rate Blood Pressure 116/67 116/67 144/69 O2 Sat by Pulse 99 98 99 Oximetry 2020 02/14/20 12:00 12:30 Temperature Pulse Rate 128 H 126 H Respiratory 15 16 Rate Blood Pressure 139/78 117/72 O2 Sat by Pulse 99 98 Oximetry General appearance: Present: other (sedated) - EENT ENT: other (orally intubated) - Respiratory Respiratory effort: normal Respiratory: bilateral: diminished - Breasts Breasts: deferred - Cardiovascular Rhythm: irregularly irregular - Gastrointestinal General gastrointestinal: Present: other (open abdomen) - Labs CBC & Chem 7: 02/14/20 04:29 02/14/20 04:29 Labs: Abnormal lab results 02/13/20 02/13/20 02/13/20 Range/Units 13:24 16:49 16:50 WBC (4.5-11.0) K/mm3 RDW (13.2-15.2) % Seg Neuts % (Manual) (40.0-70.0) % Lymphocytes % (Manual) (13.4-35.0) % Seg Neutrophils # Man (1.8-7.7) K/mm3 Lymphocytes # (Manual) (1.2-5.4) K/mm3 PT (12.2-14.9) Sec. INR (0.87-1.13) ABG pH 7.226 L (7.350-7.450) pH Units ABG pO2 77.9 L (80.0-90.0) mm Hg ABG HCO3 16.4 L (20.0-26.0) mmol/L ABG Base Excess -10.5 L (-2.0-3.0) mmol/L ABG Hemoglobin 11.7 L (12.0-16.0) gm/dl Oxyhemoglobin 92.8 L (95.0-99.0) % Chloride (98-107) mmol/L Carbon Dioxide (22-30) mmol/L BUN (7-17) mg/dL Creatinine (0.7-1.2) mg/dL Glucose (65-100) mg/dL POC Glucose 337 H 272 H (70-105) Calcium (8.4-10.2) mg/dL 02/13/20 02/13/20 02/14/20 Range/Units 20:10 22:08 00:22 WBC (4.5-11.0) K/mm3 RDW (13.2-15.2) % Seg Neuts % (Manual) (40.0-70.0) % Lymphocytes % (Manual) (13.4-35.0) % Seg Neutrophils # Man (1.8-7.7) K/mm3 Lymphocytes # (Manual) (1.2-5.4) K/mm3 PT 16.9 H (12.2-14.9) Sec. INR 1.41 H (0.87-1.13) ABG pH 7.158 L* (7.350-7.450) pH Units ABG pO2 (80.0-90.0) mm Hg ABG HCO3 18.6 L (20.0-26.0) mmol/L ABG Base Excess -10.2 L (-2.0-3.0) mmol/L ABG Hemoglobin 11.9 L (12.0-16.0) gm/dl Oxyhemoglobin 93.1 L (95.0-99.0) % Chloride (98-107) mmol/L Carbon Dioxide (22-30) mmol/L BUN (7-17) mg/dL Creatinine (0.7-1.2) mg/dL Glucose (65-100) mg/dL POC Glucose 199 H (70-105) Calcium (8.4-10.2) mg/dL 02/14/20 02/14/20 02/14/20 Range/Units 03:45 04:29 04:29 WBC 14.4 H (4.5-11.0) K/mm3 RDW 15.3 H (13.2-15.2) % Seg Neuts % (Manual) 88.0 H (40.0-70.0) % Lymphocytes % (Manual) 6.0 L (13.4-35.0) % Seg Neutrophils # Man 12.7 H (1.8-7.7) K/mm3 Lymphocytes # (Manual) 0.9 L (1.2-5.4) K/mm3 PT (12.2-14.9) Sec. INR (0.87-1.13) ABG pH 7.193 L* (7.350-7.450) pH Units ABG pO2 (80.0-90.0) mm Hg ABG HCO3 16.4 L (20.0-26.0) mmol/L ABG Base Excess -11.2 L (-2.0-3.0) mmol/L ABG Hemoglobin 10.2 L (12.0-16.0) gm/dl Oxyhemoglobin 94.3 L (95.0-99.0) % Chloride 108.5 H (98-107) mmol/L Carbon Dioxide 16 L (22-30) mmol/L BUN 73 H (7-17) mg/dL Creatinine 4.3 H (0.7-1.2) mg/dL Glucose 167 H (65-100) mg/dL POC Glucose (70-105) Calcium 8.0 L (8.4-10.2) mg/dL 02/14/20 02/14/20 Range/Units 05:26 12:11 WBC (4.5-11.0) K/mm3 RDW (13.2-15.2) % Seg Neuts % (Manual) (40.0-70.0) % Lymphocytes % (Manual) (13.4-35.0) % Seg Neutrophils # Man (1.8-7.7) K/mm3 Lymphocytes # (Manual) (1.2-5.4) K/mm3 PT (12.2-14.9) Sec. INR (0.87-1.13) ABG pH (7.350-7.450) pH Units ABG pO2 (80.0-90.0) mm Hg ABG HCO3 (20.0-26.0) mmol/L ABG Base Excess (-2.0-3.0) mmol/L ABG Hemoglobin (12.0-16.0) gm/dl Oxyhemoglobin (95.0-99.0) % Chloride (98-107) mmol/L Carbon Dioxide (22-30) mmol/L BUN (7-17) mg/dL Creatinine (0.7-1.2) mg/dL Glucose (65-100) mg/dL POC Glucose 177 H 160 H (70-105) Calcium (8.4-10.2) mg/dL Medications & Allergies - Medications Allergies/Adverse Reactions: Allergies clindamycin Allergy (Verified 02/11/20 14:52) Hives Home Medications: Home Medications Medication Instructions Recorded Confirmed Last Taken Type Doxazosin [Cardura] 4 mg PO QDAY 02/11/20 02/11/20 02/10/20 History Hydralazine HCl 50 mg PO DAILY 02/11/20 02/11/20 02/10/20 History Metoprolol 25 mg PO DAILY 0602/11/20 02/10/20 History Sertraline [Zoloft] 50 mg PO QDAY 02/11/20 02/11/20 02/10/20 History amLODIPine [Norvasc] 10 mg PO DAILY 02/11/20 02/11/20 02/10/20 History glipiZIDE 10 mg PO BID 02/11/20 02/11/20 02/10/20 History Active Medications: Generic Name Dose Route Start Last Admin Trade Name Freq PRN Reason Stop Dose Admin Acetaminophen 650 mg 02/11/20 19:01 02/12/20 17:00 Tylenol PO 650 mg Q4H PRN Administration Pain MILD(1-3)/Fever >100.5/ADAMS Albumin Human 25 gm 02/14/20 14:00 Alburx 25% (Albumin) IV 02/16/20 12:00 Q8HR NADER Famotidine 20 mg 02/13/20 15:00 02/14/20 09:06 Pepcid IV 20 mg QDAY NADER Administration Fentanyl 50 mcg 02/13/20 19:21 Sublimaze IV Q5MIN PRN Pain , Severe (7-10) Hydralazine HCl 10 mg 02/11/20 18:07 02/12/20 00:27 Apresoline IV 10 mg Q6HR PRN Administration Hypertension Hydromorphone HCl 1 mg 02/14/20 13:00 Dilaudid IV Q3H PRN Pain , Severe (7-10) Hydrophilic Ointment 1 applic 02/13/20 19:41 Vaseline Lip Therapy TP Q2HR PRN Dry Lips Metronidazole 500 mg in 100 mls @ 100 mls/hr 02/12/20 15:40 02/14/20 07:41 Flagyl 500 Mg/100 Ml IV 100 mls/hr Q8HR NADER Administration Levofloxacin/Dextrose 250 mg in 50 mls @ 50 mls/hr 02/13/20 11:00 02/14/20 09:07 Levaquin 250mg/50ml IV 50 mls/hr Q24HR NADER Administration Protocol Sodium Bicarbonate 75 meq/ 1,075 mls @ 125 mls/hr 02/13/20 11:00 02/13/20 11:27 Sodium Chloride IV 125 mls/hr DIRECT NADER Administration Fentanyl Citrate 2,000 mcg in 100 mls @ 3.4 mls/hr 02/13/20 20:00 Fentanyl Drip Premix IV TITR NADER Protocol 1 MCG/KG/HR Propofol 1,000 mg in 100 mls @ 2.04 mls/hr 02/13/20 20:00 02/14/20 10:48 Diprivan 10 Mg/Ml IV 25 mcg/kg/min TITR NADER 10.2 mls/hr Titration Protocol 5 MCG/KG/MIN Heparin Sodium/Sodium Chloride 25,000 unit in 500 mls @ 20 mls/hr 02/13/20 20:00 02/13/20 22:01 Heparin/ 0.45% Nacl-25,000 Unit/500 Ml IV 1,000 units/hr TITR NADER 20 mls/hr Administration Protocol 1,000 UNITS/HR Diltiazem HCl 100 mg in 100 mls @ 5 mls/hr 02/14/20 13:00 Cardizem/D5w 100mg/100ml IV TITR NADER Protocol 5 MG/HR Insulin Human Lispro 0 unit 02/13/20 12:00 02/14/20 12:37 Humalog SUB-Q 3 unit Q6HR [facility] Administration Protocol Labetalol HCl 20 mg 02/13/20 18:00 Labetalol IV Q4H PRN SBP >150 Metoprolol Tartrate 2.5 mg 02/13/20 18:00 02/14/20 10:46 Metoprolol IV 2.5 mg Q6HR PRN Administration HR >130 Multi-Ingred Cream/Lotion/Oil/Oint 1 applic 02/13/20 19:41 Artificial Tears Ophth Oint OU Q4HR PRN Dry Eye(s) Ondansetron HCl 4 mg 02/11/20 19:01 02/12/20 05:44 Zofran IV 4 mg Q8H PRN Administration Nausea And Vomiting Ondansetron HCl 4 mg 02/13/20 19:21 Zofran IV ONCE PRN Nausea And Vomiting Sodium Chloride 10 ml 02/11/20 22:00 02/14/20 11:27 Sodium Chloride Flush Syringe 10 Ml IV Not Given BID NADER Sodium Chloride 10 ml 02/11/20 19:01 Sodium Chloride Flush Syringe 10 Ml IV PRN PRN LINE FLUSH Sodium Chloride 5 ml 02/13/20 19:41 Nacl 0.9% 500 Ml IV DIRECT PRN [employer] IN[employer]IGATOR HEART Score - HEART Score Troponin: Troponin T < 0.010 ng/mL (0.00-0.029) 02/11/20 15:27
[2020-02-14] MEDS: ALBUMIN HUMAN 25% (25 GM/100 ML) INJ IV SCH ×2 (14:09→21:17)
[2020-02-14] MEDS: HYDROmorphone 1 MG/1 ML INJ IV PRN (14:24)
[2020-02-14] MEDS: SODIUM CHLORIDE 0.45% 1000 ML 1,000 ML with SODIUM BICARBONATE 75 MEQ IV SCH (15:49)
--- NOTE | 2020-02-14 16:22 | Progress Note ---
Assessment and Plan 74-year-old female status post Exploratory laparotomy, extensive small bowel resection, partial colon resection, placement of abthera vac, placement of right radial arterial line, POD 1 1. bowel ischemia with gangrene 2. sepsis 3. LITZY 4. Afib with RVR Plan: 1. neuro - continue propofol gtt and fentanyl. Pt to remain sedated on vent unt il definitive surgery to close abdomen 2. CV - cardiology on board for Afib. Continue hepgtt per protocol. Monitor Hb. Antonietta. Vascular consult pending 3. Resp - vent management per ICU team 4. GI - Strict NPO, NGT to LIWS, Abthera vac to -125mmHg suction. IVF per nephro. Will bolus with NS and continue albumin for insensible losses from abdominal vac and NGT. GI ppx - start protonix 5. - continue corcoran catheter for strict I/Os. Nephrology on board. 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 ID - continue abx - levaquin and flagyl - per ID 7. Endo - strict glucose control 8. Musc - turning q2 as per protocol, skin breakdown precautions, SCDs 9. FEN - NPO, IVF, replace lytes as needed. Will order PICC line. Pt will need TPN. Plan to return to OR on Sunday for second look, bowel anastamosis, and possible closure of abdomen. Research Epidemiologist notes reviewed and recs appreciated The patient's operative findings and condition was discussed with her family yesterday. All questions were answered. Prognosis is guarded. Thank you, please call with questions. Subjective Date of service: 02/14/20 Narrative: Pt seen and examined. Remains sedated on vent. 2L NS boluses given since last night for poor urine output. BP has remained stable. Pt goes in and out of rate controlled Afib. No f/c. Objective Vital Signs - 12hr 02/14/20 02/14/20 02/14/20 04:20 04:30 04:40 Temperature Pulse Rate 114 H 120 H 124 H Respiratory 14 17 18 Rate Blood Pressure 126/60 136/67 136/67 O2 Sat by Pulse 98 97 99 Oximetry 02/14/20 02/14/20 02/14/20 04:46 04:50 05:00 Temperature Pulse Rate 130 H 115 H 117 H Respiratory 16 16 Rate Blood Pressure 101/71 123/31 114/68 O2 Sat by Pulse 98 Oximetry 02/14/20 02/14/20 02/14/20 05:30 06:00 06:30 Temperature Pulse Rate 87 79 81 Respiratory 13 16 15 Rate Blood Pressure 126/102 111/59 147/79 O2 Sat by Pulse 98 99 98 Oximetry 02/14/20 02/14/20 02/14/20 07:00 07:30 08:00 Temperature 97.4 F L Pulse Rate 83 83 87 Respiratory 17 16 17 Rate Blood Pressure 156/67 151/62 139/69 O2 Sat by Pulse 98 97 97 Oximetry 02/14/20 02/14/20 02/14/20 08:30 09:00 09:30 Temperature Pulse Rate 82 86 105 H Respiratory 16 16 16 Rate Blood Pressure 140/58 139/59 133/65 O2 Sat by Pulse 97 98 97 Oximetry 02/14/20 02/14/20 02/14/20 10:00 10:30 10:46 Temperature Pulse Rate 122 H 129 H 132 H Respiratory 16 15 Rate Blood Pressure 135/72 130/66 116/67 O2 Sat by Pulse 97 98 Oximetry 02/14/20 02/14/20 02/14/20 11:00 11:17 11:30 Temperature Pulse Rate 115 H 132 H 108 H Respiratory 17 15 Rate Blood Pressure 116/67 116/67 144/69 O2 Sat by Pulse 99 98 99 Oximetry 02/14/20 02/14/20 02/14/20 12:00 12:30 13:00 Temperature 98.1 F Pulse Rate 128 H 126 H 129 H Respiratory 15 16 23 Rate Blood Pressure 139/78 117/72 117/72 O2 Sat by Pulse 99 98 97 Oximetry 02/14/20 02/14/20 02/14/20 13:30 14:00 14:30 Temperature Pulse Rate 128 H 129 H 118 H Respiratory 22 16 16 Rate Blood Pressure 140/74 157/67 119/80 O2 Sat by Pulse 94 98 98 Oximetry 02/14/20 15:31 Temperature Pulse Rate 118 H Respiratory Rate Blood Pressure 119/80 O2 Sat by Pulse 98 Oximetry - General physical appearance Narrative Exam: Gen: Intubated, sedated. NAD ENT: ETT in place. NGT with dark bilious output CV: s1, S2+ Afib with elevated rate Resp: on vent. No audible wheezes Abd: soft, NT, ND. Abthera vac in place with serosang drainage. No leak, good seal Ext: no c/c/e : corcoran with clear yellow urine I/Os: Corcoran - approximately 20cc/hr NGT - (not recorded) - 350 cc in canister Abthera vac - 800cc/24hr - Labs 02/14/20 04:29 02/14/20 04:29 Diabetes panel 02/14/20 Range/Units 04:29 Sodium 141 (137-145) mmol/L Potassium 4.2 (3.6-5.0) mmol/L Chloride 108.5 H (98-107) mmol/L Carbon Dioxide 16 L (22-30) mmol/L BUN 73 H (7-17) mg/dL Creatinine 4.3 H (0.7-1.2) mg/dL Glucose 167 H (65-100) mg/dL Calcium 8.0 L (8.4-10.2) mg/dL Calcium panel 02/14/20 Range/Units 04:29 Calcium 8.0 L (8.4-10.2) mg/dL Pituitary panel 02/14/20 Range/Units 04:29 Sodium 141 (137-145) mmol/L Potassium 4.2 (3.6-5.0) mmol/L Chloride 108.5 H (98-107) mmol/L Carbon Dioxide 16 L (22-30) mmol/L BUN 73 H (7-17) mg/dL Creatinine 4.3 H (0.7-1.2) mg/dL Glucose 167 H (65-100) mg/dL Calcium 8.0 L (8.4-10.2) mg/dL Adrenal panel 02/14/20 Range/Units 04:29 Sodium 141 (137-145) mmol/L Potassium 4.2 (3.6-5.0) mmol/L Chloride 108.5 H (98-107) mmol/L Carbon Dioxide 16 L (22-30) mmol/L BUN 73 H (7-17) mg/dL Creatinine 4.3 H (0.7-1.2) mg/dL Glucose 167 H (65-100) mg/dL Calcium 8.0 L (8.4-10.2) mg/dL
--- NOTE | 2020-02-14 18:40 | Gastroenterology Progress Note ---
Assessment and Plan - Patient Problems (1) Ischemic necrosis of small bowel Current Visit: Yes Status: Acute Plan to address problem: - Distribution appears to be SMA territory, but patient has done well since surgery. - No acute GI recs at present, as management will mostly be surgical. - Will sign off; please call if needed. Subjective Date of service: 02/14/20 Principal diagnosis: Ischemic Bowel Interval history: The patient has been stable overnight, and is now off pressors. She is alert on the vent, and looking around. No distress noted. Objective - Constitutional Vitals: Temp Pulse Resp BP Pulse Ox 98.5 F 129 H 19 133/81 97 02/14/20 16:00 02/14/20 18:00 02/14/20 18:00 02/14/20 18:00 02/14/20 18:00 General appearance: mild distress, other (Sedated on Vent) - Respiratory Respiratory effort: normal Respiratory: bilateral: CTA (On Vent) - Cardiovascular Rhythm: regular Heart Sounds: Present: S1 & S2 - Gastrointestinal General gastrointestinal: Present: other (Surgical vac and wound dressings; all C/D/I) - Labs CBC & Chem 7: 02/14/20 04:29 02/14/20 04:29 Labs: Laboratory Results - last 24 hr 02/13/20 02/13/20 02/13/20 17:30 20:10 20:10 WBC RBC Hgb 11.4 Hct 34.4 D MCV MCH MCHC RDW Plt Count 217 Add Manual Diff Total Counted Seg Neutrophils % Seg Neuts % (Manual) Band Neutrophils % Lymphocytes % (Manual) Reactive Lymphs % (Man) Monocytes % (Manual) Eosinophils % (Manual) Basophils % (Manual) Metamyelocytes % Myelocytes % Promyelocytes % Blast Cells % Nucleated RBC % Seg Neutrophils # Man Band Neutrophils # Lymphocytes # (Manual) Abs React Lymphs (Man) Monocytes # (Manual) Eosinophils # (Manual) Basophils # (Manual) Metamyelocytes # Myelocytes # Promyelocytes # Blast Cells # WBC Morphology Hypersegmented Neuts Hyposegmented Neuts Hypogranular Neuts Smudge Cells Toxic Granulation Toxic Vacuolation Dohle Bodies Pelger-Huet Anomaly Jyoti Rods Platelet Estimate Clumped Platelets Plt Clumps, EDTA Large Platelets Giant Platelets Platelet Satelliting Plt Morphology Comment RBC Morphology Dimorphic RBCs Polychromasia Hypochromasia Poikilocytosis Anisocytosis Microcytosis Macrocytosis Spherocytes Pappenheimer Bodies Sickle Cells Target Cells Tear Drop Cells Ovalocytes Helmet Cells Garcia-Bingham Bodies Fl[place]illa Rings Aurora Cells Bite Cells Crenated Cell Elliptocytes Acanthocytes (Spur) Rouleaux Hemoglobin C Crystals Schistocytes Malaria parasites Babar Bodies Hem Pathologist Commnt PT 16.9 H INR 1.41 H APTT 35.3 Heparin Anti-Xa Level ABG pH ABG pCO2 ABG pO2 ABG HCO3 ABG O2 Saturation ABG O2 Content ABG Base Excess ABG Hemoglobin ABG Carboxyhemoglobin ABG Methemoglobin Oxyhemoglobin FiO2 Sodium Potassium Chloride Carbon Dioxide Anion Gap BUN Creatinine Estimated GFR BUN/Creatinine Ratio Glucose POC Glucose Lactic Acid Calcium Blood Type O NEGATIVE 02/13/20 02/14/20 02/14/20 22:08 00:22 03:45 WBC RBC Hgb Hct MCV MCH MCHC RDW Plt Count Add Manual Diff Total Counted Seg Neutrophils % Seg Neuts % (Manual) Band Neutrophils % Lymphocytes % (Manual) Reactive Lymphs % (Man) Monocytes % (Manual) Eosinophils % (Manual) Basophils % (Manual) Metamyelocytes % Myelocytes % Promyelocytes % Blast Cells % Nucleated RBC % Seg Neutrophils # Man Band Neutrophils # Lymphocytes # (Manual) Abs React Lymphs (Man) Monocytes # (Manual) Eosinophils # (Manual) Basophils # (Manual) Metamyelocytes # Myelocytes # Promyelocytes # Blast Cells # WBC Morphology Hypersegmented Neuts Hyposegmented Neuts Hypogranular Neuts Smudge Cells Toxic Granulation Toxic Vacuolation Dohle Bodies Pelger-Huet Anomaly Jyoti Rods Platelet Estimate Clumped Platelets Plt Clumps, EDTA Large Platelets Giant Platelets Platelet Satelliting Plt Morphology Comment RBC Morphology Dimorphic RBCs Polychromasia Hypochromasia Poikilocytosis Anisocytosis Microcytosis Macrocytosis Spherocytes Pappenheimer Bodies Sickle Cells Target Cells Tear Drop Cells Ovalocytes Helmet Cells Garcia-Bingham Bodies Flovilla Rings Aurora Cells Bite Cells Crenated Cell Elliptocytes Acanthocytes (Spur) Rouleaux Hemoglobin C Crystals Schistocytes Malaria parasites Babar Bodies Hem Pathologist Commnt PT INR APTT Heparin Anti-Xa Level ABG pH 7.158 L* 7.193 L* ABG pCO2 53.5 43.6 ABG pO2 83.8 86.3 ABG HCO3 18.6 L 16.4 L ABG O2 Saturation 95.3 96.2 ABG O2 Content 15.7 13.6 ABG Base Excess -10.2 L -11.2 L ABG Hemoglobin 11.9 L 10.2 L ABG Carboxyhemoglobin 1.5 1.3 ABG Methemoglobin 0.8 0.7 Oxyhemoglobin 93.1 L 94.3 L FiO2 50 50 Sodium Potassium Chloride Carbon Dioxide Anion Gap BUN Creatinine Estimated GFR BUN/Creatinine Ratio Glucose POC Glucose 199 H Lactic Acid Calcium Blood Type 02/14/20 02/14/20 02/14/20 04:29 04:29 04:29 WBC 14.4 H RBC 3.82 Hgb 11.0 Hct 33.9 MCV 89 MCH 29 MCHC 33 RDW 15.3 H Plt Count 175 Add Manual Diff Complete Total Counted 100 Seg Neutrophils % Electronic Equipment Maint Tech Seg Neuts % (Manual) 88.0 H Band Neutrophils % 1.0 Lymphocytes % (Manual) 6.0 L Reactive Lymphs % (Man) 0 Monocytes % (Manual) 4.0 Eosinophils % (Manual) 1.0 Basophils % (Manual) 0 Metamyelocytes % 0 Myelocytes % 0 Promyelocytes % 0 Blast Cells % 0 Nucleated RBC % Not Reportable Seg Neutrophils # Man 12.7 H Band Neutrophils # 0.1 Lymphocytes # (Manual) 0.9 L Abs React Lymphs (Man) 0.0 Monocytes # (Manual) 0.6 Eosinophils # (Manual) 0.1 Basophils # (Manual) 0.0 Metamyelocytes # 0.0 Myelocytes # 0.0 Promyelocytes # 0.0 Blast Cells # 0.0 WBC Morphology Not Reportable Hypersegmented Neuts Not Reportable Hyposegmented Neuts Not Reportable Hypogranular Neuts Not Reportable Smudge Cells Not Reportable Toxic Granulation Not Reportable Toxic Vacuolation Not Reportable Dohle Bodies Not Reportable Pelger-Huet Anomaly Not Reportable Jyoti Rods Not Reportable Platelet Estimate Consistent w auto Clumped Platelets Not Reportable Plt Clumps, EDTA Not Reportable Large Platelets Not Reportable Giant Platelets Not Reportable Platelet Satelliting Not Reportable Plt Morphology Comment Not Reportable RBC Morphology Not Reportable Dimorphic RBCs Not Reportable Polychromasia Not Reportable Hypochromasia Not Reportable Poikilocytosis Not Reportable Anisocytosis 1+ Microcytosis Not Reportable Macrocytosis Not Reportable Spherocytes Not Reportable Pappenheimer Bodies Not Reportable Sickle Cells Not Reportable Target Cells Not Reportable Tear Drop Cells Not Reportable Ovalocytes Not Reportable Helmet Cells Not Reportable Garcia-Bingham Bodies Not Reportable [place]ovilla Rings Not Reportable Aurora Cells Not Reportable Bite Cells Not Reportable Crenated Cell Not Reportable Elliptocytes Not Reportable Acanthocytes (Spur) Not Reportable Rouleaux Not Reportable Hemoglobin C Crystals Not Reportable Schistocytes Not Reportable Malaria parasites Not Reportable Babar Bodies Not Reportable Hem Pathologist Commnt No PT INR APTT Heparin Anti-Xa Level ABG pH ABG pCO2 ABG pO2 ABG HCO3 ABG O2 Saturation ABG O2 Content ABG Base Excess ABG Hemoglobin ABG Carboxyhemoglobin ABG Methemoglobin Oxyhemoglobin FiO2 Sodium 141 Potassium 4.2 Chloride 108.5 H Carbon Dioxide 16 L Anion Gap 21 BUN 73 H Creatinine 4.3 H Estimated GFR 10 BUN/Creatinine Ratio 17 Glucose 167 H POC Glucose Lactic Acid 0.80 Calcium 8.0 L Blood Type 02/14/20 02/14/20 02/14/20 04:29 05:26 10:38 WBC RBC Hgb Hct MCV MCH MCHC RDW Plt Count Add Manual Diff Total Counted Seg Neutrophils % Seg Neuts % (Manual) Band Neutrophils % Lymphocytes % (Manual) Reactive Lymphs % (Man) Monocytes % (Manual) Eosinophils % (Manual) Basophils % (Manual) Metamyelocytes % Myelocytes % Promyelocytes % Blast Cells % Nucleated RBC % Seg Neutrophils # Man Band Neutrophils # Lymphocytes # (Manual) Abs React Lymphs (Man) Monocytes # (Manual) Eosinophils # (Manual) Basophils # (Manual) Metamyelocytes # Myelocytes # Promyelocytes # Blast Cells # WBC Morphology Hypersegmented Neuts Hyposegmented Neuts Hypogranular Neuts Smudge Cells Toxic Granulation Toxic Vacuolation Dohle Bodies Pelger-Huet Anomaly Jyoti Rods Platelet Estimate Clumped Platelets Plt Clumps, EDTA Large Platelets Giant Platelets Platelet Satelliting Plt Morphology Comment RBC Morphology Dimorphic RBCs Polychromasia Hypochromasia Poikilocytosis Anisocytosis Microcytosis Macrocytosis Spherocytes Pappenheimer Bodies Sickle Cells Target Cells Tear Drop Cells Ovalocytes Helmet Cells Garcia-Bingham Bodies [place] Rings Aurora Cells Bite Cells Crenated Cell Elliptocytes Acanthocytes (Spur) Rouleaux Hemoglobin C Crystals Schistocytes Malaria parasites Babar Bodies Hem Pathologist Commnt PT INR APTT Heparin Anti-Xa Level 0.35 0.47 ABG pH ABG pCO2 ABG pO2 ABG HCO3 ABG O2 Saturation ABG O2 Content ABG Base Excess ABG Hemoglobin ABG Carboxyhemoglobin ABG Methemoglobin Oxyhemoglobin FiO2 Sodium Potassium Chloride Carbon Dioxide Anion Gap BUN Creatinine Estimated GFR BUN/Creatinine Ratio Glucose POC Glucose 177 H Lactic Acid Calcium Blood Type 02/14/20 02/14/20 02/14/20 12:11 13:19 Unknown WBC RBC Hgb Hct MCV MCH MCHC RDW Plt Count Add Manual Diff Total Counted Seg Neutrophils % Seg Neuts % (Manual) Band Neutrophils % Lymphocytes % (Manual) Reactive Lymphs % (Man) Monocytes % (Manual) Eosinophils % (Manual) Basophils % (Manual) Metamyelocytes % Myelocytes % Promyelocytes % Blast Cells % Nucleated RBC % Seg Neutrophils # Man Band Neutrophils # Lymphocytes # (Manual) Abs React Lymphs (Man) Monocytes # (Manual) Eosinophils # (Manual) Basophils # (Manual) Metamyelocytes # Myelocytes # Promyelocytes # Blast Cells # WBC Morphology Hypersegmented Neuts Hyposegmented Neuts Hypogranular Neuts Smudge Cells Toxic Granulation Toxic Vacuolation Dohle Bodies Pelger-Huet Anomaly Jyoti Rods Platelet Estimate Clumped Platelets Plt Clumps, EDTA Large Platelets Giant Platelets Platelet Satelliting Plt Morphology Comment RBC Morphology Dimorphic RBCs Polychromasia Hypochromasia Poikilocytosis Anisocytosis Microcytosis Macrocytosis Spherocytes Pappenheimer Bodies Sickle Cells Target Cells Tear Drop Cells Ovalocytes Helmet Cells Garcia-Bingham Bodies [place] Rings Andrea Cells Bite Cells Crenated Cell Elliptocytes Acanthocytes (Spur) Rouleaux Hemoglobin C Crystals Schistocytes Malaria parasites Babar Bodies Hem Pathologist Commnt PT INR APTT Heparin Anti-Xa Level ABG pH ABG pCO2 ABG pO2 ABG HCO3 ABG O2 Saturation ABG O2 Content ABG Base Excess ABG Hemoglobin ABG Carboxyhemoglobin ABG Methemoglobin Oxyhemoglobin FiO2 Sodium Potassium Chloride Carbon Dioxide Anion Gap BUN Creatinine Estimated GFR BUN/Creatinine Ratio Glucose POC Glucose 160 H Lactic Acid 0.80 0.70 Calcium Blood Type
[2020-02-14] MEDS: PANTOPRAZOLE 40 MG INJ IV SCH (21:15)
[2020-02-14] MEDS: HEPARIN/ 0.45% NACL DRIP 25,000 UNIT/500 ML BAG IV SCH (22:45)
[2020-02-15] MEDS: INSULIN LISPRO 100 UNIT/ML SUB-Q SCH ×5 (00:36→23:11)
[2020-02-15] MEDS: dilTIAZem/D5W 100 MG/100 ML BAG IV SCH ×3 (00:52→18:17)
[2020-02-15] MEDS: HYDROmorphone 1 MG/1 ML INJ IV PRN (03:22)
--- NOTE | 2020-02-15 03:31 | XRay Report ---
CHEST 1 VIEW INDICATION: follow up respiratory failure COMPARISON: 02/14/2020 FINDINGS: Support devices: Unchanged. Heart: Stable. Lungs/Pleura: Minimal parenchymal density has developed in the right base, thought to be atelectasis. Lungs are otherwise clear IMPRESSION: 1. No acute disease. Signer Name: Ck Garcia MD Signed: 02/15/2020 3:26 AM Workstation Name: [id number]
[2020-02-15 04:40] LABS: ABG Base Excess -12.5 mmol/L (-2.0-3.0); ABG HCO3 13.7 mmol/L (20.0-26.0); ABG Methemoglobin 0.9 % (0.0-1.5); ABG Oxygen Saturation 96.5 % (95.0-99.0); ABG PCO2 32.1 mm Hg; ABG PH 7.246 pH Units (7.350-7.450); ABG PO2 89.3 mm Hg (80.0-90.0)
[2020-02-15] MEDS: metroNIDAZOLE/NS 500 MG/100 ML 500 MG/100 ML BAG IV SCH ×3 (05:02→22:44)
[2020-02-15 05:13] LABS: Hematocrit 25.4 % (30.3-42.9); Hemoglobin 8.6 gm/dl (10.1-14.3); Mean Corpuscular HGB Conc 34 % (30-34); Mean Corpuscular Volume 88 fl (79-97); Platelet Count 157 K/mm3 (140-440); Red Blood Count 2.88 M/mm3 (3.65-5.03); Red Cell Distribution Width 15.6 % (13.2-15.2)
[2020-02-15 05:21] LABS: Calcium 7.9 mg/dL (8.4-10.2)
[2020-02-15] MEDS: ALBUMIN HUMAN 25% (25 GM/100 ML) INJ IV SCH ×3 (06:07→22:44)
[2020-02-15] MEDS: fentaNYL DRIP Premix 2,000 MCG/100 ML BAG IV SCH ×2 (08:24→18:16)
[2020-02-15] MEDS: PANTOPRAZOLE 40 MG INJ IV SCH ×2 (09:30→22:43)
--- NOTE | 2020-02-15 09:35 | Progress Note ---
Assessment and Plan 74 y/o female with abdominal pain, hypotension, now hypertensive with tachycardia and pain, worrisome for SBO and inflammation in colon from diverticula with worsening renal function. 02/15/2020: No new recs for today. Happy with current clinical state in regards to sedation, ventilation and oxygenation. Appreciate surgery and nephro help. follow up any new recs from them. Agree with picc line, will get tomorrow as I believe they (picc team) are not available on Sunday. Will check triglyceride level in the am. 1. Continue deep sedation and pain control. No plans on weaning or extubation until abdominal issues are done. 2. Continue corcoran 3. Follow up surgery recs. Greatly appreciate them and their help. Plan for return to OR on Sunday. 4. IV abx, ID following. 5. Cardiology has elected for dilt drip. Suggest titrating. Gave nurse parameters. 6. Follow up renal rec Guarded prognosis. CCT 31 minutes. Subjective Date of service: 02/15/20 Principal diagnosis: Ischemic Bowel Interval history: No acute events. HR now controlled with increased sedation and Cardizem drip. BP stable. Very minimal amount of urine in corcoran bag. Objective Vital Signs - 12hr 02/14/20 02/14/20 02/14/20 21:30 22:00 22:30 Temperature Pulse Rate 94 H 93 H 93 H Respiratory 15 14 15 Rate Blood Pressure 135/64 138/71 141/54 O2 Sat by Pulse 96 97 98 Oximetry 02/14/20 02/14/20 02/14/20 23:00 23:10 23:30 Temperature 99.9 F H Pulse Rate 116 H 88 Respiratory 14 15 Rate Blood Pressure 125/50 131/58 O2 Sat by Pulse 95 98 Oximetry 02/14/20 02/15/20 02/15/20 23:58 00:00 00:30 Temperature Pulse Rate 89 87 95 H Respiratory 19 15 16 Rate Blood Pressure 126/62 126/62 134/49 O2 Sat by Pulse 98 99 92 Oximetry 02/15/20 02/15/20 02/15/20 01:00 01:30 02:00 Temperature Pulse Rate 85 94 H 121 H Respiratory 15 15 16 Rate Blood Pressure 145/53 120/62 136/68 O2 Sat by Pulse 98 98 97 Oximetry 02/15/20 02/15/20 02/15/20 02:30 03:00 03:21 Temperature 99.2 F Pulse Rate 72 95 H Respiratory 15 16 Rate Blood Pressure 117/47 114/50 O2 Sat by Pulse 97 96 Oximetry 02/15/20 02/15/20 02/15/20 03:30 04:00 04:30 Temperature Pulse Rate 73 75 68 Respiratory 15 15 15 Rate Blood Pressure 113/41 108/41 109/42 O2 Sat by Pulse 96 97 97 Oximetry 02/15/20 02/15/20 02/15/20 05:00 05:30 06:00 Temperature Pulse Rate 71 67 67 Respiratory 15 15 15 Rate Blood Pressure 112/45 118/52 115/44 O2 Sat by Pulse 97 98 96 Oximetry 02/15/20 02/15/20 02/15/20 06:30 07:00 07:30 Temperature Pulse Rate 71 72 101 H Respiratory 16 15 24 Rate Blood Pressure 117/51 132/50 114/54 O2 Sat by Pulse 99 98 95 Oximetry 02/15/20 02/15/20 08:00 08:30 Temperature 98.5 F Pulse Rate 74 74 Respiratory 16 21 Rate Blood Pressure 130/47 125/48 O2 Sat by Pulse 96 97 Oximetry CBC and BMP: 02/15/20 04:28 02/15/20 04:28 ABG, PT/INR, D-dimer: ABG ABG pH 7.246 pH Units (7.350-7.450) L 02/15/20 03:19 ABG pCO2 32.1 mm Hg 02/15/20 03:19 ABG pO2 89.3 mm Hg (80.0-90.0) 02/15/20 03:19 ABG O2 Saturation 96.5 % (95.0-99.0) 02/15/20 03:19 PT/INR, D-dimer PT 16.9 Sec. (12.2-14.9) H 02/13/20 20:10 INR 1.41 (0.87-1.13) H 02/13/20 20:10 Abnormal lab findings: Abnormal Labs 02/11/20 02/11/20 02/11/20 15:27 15:27 15:27 WBC 22.5 H RBC Hgb Hct RDW Seg Neuts % (Manual) 90.0 H Lymphocytes % (Manual) 4.0 L Seg Neutrophils # Man 20.3 H Lymphocytes # (Manual) 0.9 L Monocytes # (Manual) 1.1 H PT INR APTT 23.3 L ABG pH ABG pO2 ABG HCO3 ABG Base Excess ABG Hemoglobin Oxyhemoglobin Sodium 132 L Chloride 96.0 L Carbon Dioxide 16 L BUN 59 H Creatinine 3.0 H Glucose 487 H POC Glucose Calcium Alkaline Phosphatase 142 H Albumin Lipase 86 H Urine Creatinine Urine Total Protein 02/12/20 02/12/20 02/12/20 04:58 04:58 Unknown WBC 30.0 H RBC Hgb Hct RDW Seg Neuts % (Manual) 96.0 H Lymphocytes % (Manual) 1.0 L Seg Neutrophils # Man 28.8 H Lymphocytes # (Manual) 0.3 L Monocytes # (Manual) 0.9 H PT INR APTT ABG pH ABG pO2 ABG HCO3 ABG Base Excess ABG Hemoglobin Oxyhemoglobin Sodium Chloride Carbon Dioxide 15 L BUN 59 H Creatinine 3.0 H Glucose 477 H POC Glucose Calcium Alkaline Phosphatase Albumin 3.5 L Lipase Urine Creatinine 35.3 H Urine Total Protein 796 H 02/13/20 02/13/20 02/13/20 05:43 05:43 13:24 WBC 38.2 H RBC Hgb Hct 43.6 H RDW Seg Neuts % (Manual) 91.0 H Lymphocytes % (Manual) 4.0 L Seg Neutrophils # Man 34.8 H Lymphocytes # (Manual) Monocytes # (Manual) 1.1 H PT INR APTT ABG pH ABG pO2 ABG HCO3 ABG Base Excess ABG Hemoglobin Oxyhemoglobin Sodium 136 L Chloride Carbon Dioxide 11 L BUN 71 H Creatinine 4.0 H Glucose 343 H POC Glucose 337 H Calcium Alkaline Phosphatase Albumin Lipase Urine Creatinine Urine Total Protein 02/13/20 02/13/20 02/13/20 16:49 16:50 20:10 WBC RBC Hgb Hct RDW Seg Neuts % (Manual) Lymphocytes % (Manual) Seg Neutrophils # Man Lymphocytes # (Manual) Monocytes # (Manual) PT 16.9 H INR 1.41 H APTT ABG pH 7.226 L ABG pO2 77.9 L ABG HCO3 16.4 L ABG Base Excess -10.5 L ABG Hemoglobin 11.7 L Oxyhemoglobin 92.8 L Sodium Chloride Carbon Dioxide BUN Creatinine Glucose POC Glucose 272 H Calcium Alkaline Phosphatase Albumin Lipase Urine Creatinine Urine Total Protein 02/13/20 02/14/20 02/14/20 22:08 00:22 03:45 WBC RBC Hgb Hct RDW Seg Neuts % (Manual) Lymphocytes % (Manual) Seg Neutrophils # Man Lymphocytes # (Manual) Monocytes # (Manual) PT INR APTT ABG pH 7.158 L* 7.193 L* ABG pO2 ABG HCO3 18.6 L 16.4 L ABG Base Excess -10.2 L -11.2 L ABG Hemoglobin 11.9 L 10.2 L Oxyhemoglobin 93.1 L 94.3 L Sodium Chloride Carbon Dioxide BUN Creatinine Glucose POC Glucose 199 H Calcium Alkaline Phosphatase Albumin Lipase Urine Creatinine Urine Total Protein 02/14/20 02/14/20 02/14/20 04:29 04:29 05:26 WBC 14.4 H RBC Hgb Hct RDW 15.3 H Seg Neuts % (Manual) 88.0 H Lymphocytes % (Manual) 6.0 L Seg Neutrophils # Man 12.7 H Lymphocytes # (Manual) 0.9 L Monocytes # (Manual) PT INR APTT ABG pH ABG pO2 ABG HCO3 ABG Base Excess ABG Hemoglobin Oxyhemoglobin Sodium Chloride 108.5 H Carbon Dioxide 16 L BUN 73 H Creatinine 4.3 H Glucose 167 H POC Glucose 177 H Calcium 8.0 L Alkaline Phosphatase Albumin Lipase Urine Creatinine Urine Total Protein 02/14/20 02/14/20 02/14/20 12:11 18:34 23:18 WBC RBC Hgb Hct RDW Seg Neuts % (Manual) Lymphocytes % (Manual) Seg Neutrophils # Man Lymphocytes # (Manual) Monocytes # (Manual) PT INR APTT ABG pH ABG pO2 ABG HCO3 ABG Base Excess ABG Hemoglobin Oxyhemoglobin Sodium Chloride Carbon Dioxide BUN Creatinine Glucose POC Glucose 160 H 135 H 138 H Calcium Alkaline Phosphatase Albumin Lipase Urine Creatinine Urine Total Protein 02/15/20 02/15/20 02/15/20 03:19 04:28 04:28 WBC RBC 2.88 L Hgb 8.6 L Hct 25.4 L D RDW 15.6 H Seg Neuts % (Manual) Lymphocytes % (Manual) Seg Neutrophils # Man Lymphocytes # (Manual) Monocytes # (Manual) PT INR APTT ABG pH 7.246 L ABG pO2 ABG HCO3 13.7 L ABG Base Excess -12.5 L ABG Hemoglobin 8.4 L Oxyhemoglobin 94.6 L Sodium Chloride Carbon Dioxide 12 L BUN 72 H Creatinine 4.7 H Glucose 147 H POC Glucose Calcium 7.9 L Alkaline Phosphatase Albumin Lipase Urine Creatinine Urine Total Protein 02/15/20 05:35 WBC RBC Hgb Hct RDW Seg Neuts % (Manual) Lymphocytes % (Manual) Seg Neutrophils # Man Lymphocytes # (Manual) Monocytes # (Manual) PT INR APTT ABG pH ABG pO2 ABG HCO3 ABG Base Excess ABG Hemoglobin Oxyhemoglobin Sodium Chloride Carbon Dioxide BUN Creatinine Glucose POC Glucose 181 H Calcium Alkaline Phosphatase Albumin Lipase Urine Creatinine Urine Total Protein
--- NOTE | 2020-02-15 10:09 | Progress Note ---
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 cyst * leucocytosis * type 2 DM--uncontrolled Plan: * ivfs and iv abx for volume depletion with uti * added levaquin for increase concentration inside renal cyst * surgery note reviewed, s/p surgery, plan for OR in am as well * cr worse with met acidosis, add bicarb gtt * May need metal molder if no improvement in renal function * daily lytes and strict i/os * avoid nephrotoxins * ct noted, no stones or hydronephrosis * likely now with ATN, due to hypotension, cr worse * give iv albumin * vasopressors prn Subjective Date of service: 02/15/20 Principal diagnosis: Ischemic Bowel Interval history: events noted Objective - Exam Narrative Exam: Gen: Intubated, sedated. NAD ENT: ETT in place. NGT with dark bilious output CV: s1, S2+ Afib with elevated rate Resp: on vent. No audible wheezes Abd: soft, NT, ND. Abthera vac in place with serosang drainage. No leak, good seal Ext: no c/c/e : corcoran with clear yellow urine - Vital Signs Vital signs: Vital Signs - 12hr 02/14/20 02/14/20 02/14/20 22:30 23:00 23:10 Temperature 99.9 F H Pulse Rate 93 H 116 H Respiratory 15 14 Rate Blood Pressure 141/54 125/50 O2 Sat by Pulse 98 95 Oximetry 02/14/20 02/14/20 02/15/20 23:30 23:58 00:00 Temperature Pulse Rate 88 89 87 Respiratory 15 19 15 Rate Blood Pressure 131/58 126/62 126/62 O2 Sat by Pulse 98 98 99 Oximetry 02/15/20 02/15/20 02/15/20 00:30 01:00 01:30 Temperature Pulse Rate 95 H 85 94 H Respiratory 16 15 15 Rate Blood Pressure 134/49 145/53 120/62 O2 Sat by Pulse 92 98 98 Oximetry 02/15/20 02/15/20 02/15/20 02:00 02:30 03:00 Temperature Pulse Rate 121 H 72 95 H Respiratory 16 15 16 Rate Blood Pressure 136/68 117/47 114/50 O2 Sat by Pulse 97 97 96 Oximetry 02/15/20 02/15/20 02/15/20 03:21 03:30 04:00 Temperature 99.2 F Pulse Rate 73 75 Respiratory 15 15 Rate Blood Pressure 113/41 108/41 O2 Sat by Pulse 96 97 Oximetry 02/15/20 02/15/20 02/15/20 04:30 05:00 05:30 Temperature Pulse Rate 68 71 67 Respiratory 15 15 15 Rate Blood Pressure 109/42 112/45 118/52 O2 Sat by Pulse 97 97 98 Oximetry 02/15/20 02/15/20 02/15/20 06:00 06:30 07:00 Temperature Pulse Rate 67 71 72 Respiratory 15 16 15 Rate Blood Pressure 115/44 117/51 132/50 O2 Sat by Pulse 96 99 98 Oximetry 02/15/20 02/15/20 02/15/20 07:30 08:00 08:30 Temperature 98.5 F Pulse Rate 101 H 74 74 Respiratory 24 16 21 Rate Blood Pressure 114/54 130/47 125/48 O2 Sat by Pulse 95 96 97 Oximetry 02/15/20 02/15/20 09:00 09:30 Temperature Pulse Rate 71 79 Respiratory 15 16 Rate Blood Pressure 126/50 133/52 O2 Sat by Pulse 97 97 Oximetry - Lab 02/15/20 04:28 02/15/20 04:28 Most recent lab results ABG pH 7.246 pH Units (7.350-7.450) L 02/15/20 03:19 ABG pCO2 32.1 mm Hg 02/15/20 03:19 ABG pO2 89.3 mm Hg (80.0-90.0) 02/15/20 03:19 ABG HCO3 13.7 mmol/L (20.0-26.0) L 02/15/20 03:19 ABG O2 Saturation 96.5 % (95.0-99.0) 02/15/20 03:19 Calcium 7.9 mg/dL (8.4-10.2) L 02/15/20 04:28 Urine Creatinine 35.3 mg/dL (0.1-20.0) H 02/12/20 Unknown Urine Total Protein 796 mg/dL (5-11.8) H 02/12/20 Unknown Medications & Allergies - Medications Allergies/Adverse Reactions: Allergies clindamycin Allergy (Verified 02/11/20 14:52) Hives Home Medications: Home Medications Medication Instructions Recorded Confirmed Last Taken Type Doxazosin [Cardura] 4 mg PO QDAY 02/11/20 02/11/20 02/10/20 History Hydralazine HCl 50 mg PO DAILY 02/11/20 02/11/20 02/10/20 History Metoprolol 25 mg PO DAILY 02/11/20 02/11/20 02/10/20 History Sertraline [Zoloft] 50 mg PO QDAY 02/11/20 02/11/20 02/10/20 History amLODIPine [Norvasc] 10 mg PO DAILY 02/11/20 02/11/20 02/10/20 History glipiZIDE 10 mg PO BID 02/11/20 02/11/20 02/10/20 History Active Medications: Generic Name Dose Route Start Last Admin Trade Name Freq PRN Reason Stop Dose Admin Acetaminophen 650 mg 02/11/20 19:01 02/12/20 17:00 Tylenol PO 650 mg Q4H PRN Administration Pain MILD(1-3)/Fever >100.5/ADAMS Albumin Human 25 gm 02/14/20 14:00 02/15/20 06:07 Alburx 25% (Albumin) IV 02/16/20 12:00 25 gm Q8HR NADER Administration Fentanyl 50 mcg 02/13/20 19:21 Sublimaze IV Q5MIN PRN Pain , Severe (7-10) Hydralazine HCl 10 mg 02/11/20 18:07 02/12/20 00:27 Apresoline IV 10 mg Q6HR PRN Administration Hypertension Hydromorphone HCl 1 mg 02/14/20 13:00 02/15/20 03:22 Dilaudid IV 1 mg Q3H PRN Administration Pain , Severe (7-10) Hydrophilic Ointment 1 applic 02/13/20 19:41 Vaseline Lip Therapy TP Q2HR PRN Dry Lips Metronidazole 500 mg in 100 mls @ 100 mls/hr 02/12/20 15:40 02/15/20 05:02 Flagyl 500 Mg/100 Ml IV 100 mls/hr Q8HR NADER Administration Levofloxacin/Dextrose 250 mg in 50 mls @ 50 mls/hr 02/13/20 11:00 02/15/20 09:30 Levaquin 250mg/50ml IV 50 mls/hr Q24HR NADER Administration Protocol Fentanyl Citrate 2,000 mcg in 100 mls @ 3.4 mls/hr 02/13/20 20:00 02/15/20 08:24 Fentanyl Drip Premix IV 1 mcg/kg/hr TITR NADER 3.4 mls/hr Administration Protocol 1 MCG/KG/HR Propofol 1,000 mg in 100 mls @ 2.04 mls/hr 02/13/20 20:00 02/15/20 08:23 Diprivan 10 Mg/Ml IV 30 mcg/kg/min TITR NADER 12.24 mls/hr Titration Protocol 5 MCG/KG/MIN Heparin Sodium/Sodium Chloride 25,000 unit in 500 mls @ 20 mls/hr 02/13/20 20:00 02/14/20 22:45 Heparin/ 0.45% Nacl-25,000 Unit/500 Ml IV 1,000 units/hr TITR NADER 20 mls/hr Administration Protocol 1,000 UNITS/HR Diltiazem HCl 100 mg in 100 mls @ 5 mls/hr 02/14/20 13:00 02/15/20 08:25 Cardizem/D5w 100mg/100ml IV 5 mg/hr TITR NADER 5 mls/hr Administration Protocol 5 MG/HR Sodium Bicarbonate 150 meq/ 1,150 mls @ 125 mls/hr 02/15/20 11:00 Dextrose IV DIRECT NADER Insulin Human Lispro 0 unit 02/13/20 12:00 02/15/20 06:26 Humalog SUB-Q 3 unit Q6HR [facility] Administration Protocol Labetalol HCl 20 mg 02/13/20 18:00 Labetalol IV Q4H PRN SBP >150 Metoprolol Tartrate 2.5 mg 02/13/20 18:00 02/14/20 10:46 Metoprolol IV 2.5 mg Q6HR PRN Administration HR >130 Multi-Ingred Cream/Lotion/Oil/Oint 1 applic 02/13/20 19:41 Artificial Tears Ophth Oint OU Q4HR PRN Dry Eye(s) Ondansetron HCl 4 mg 02/11/20 19:01 02/12/20 05:44 Zofran IV 4 mg Q8H PRN Administration Nausea And Vomiting Ondansetron HCl 4 mg 02/13/20 19:21 Zofran IV ONCE PRN Nausea And Vomiting Pantoprazole Sodium 40 mg 02/14/20 22:00 02/15/20 09:30 Protonix IV 40 mg BID NADER Administration Sodium Chloride 10 ml 02/11/20 22:00 02/15/20 09:30 Sodium Chloride Flush Syringe 10 Ml IV 10 ml BID NADER Administration Sodium Chloride 10 ml 02/11/20 19:01 Sodium Chloride Flush Syringe 10 Ml IV PRN PRN LINE FLUSH Sodium Chloride 5 ml 02/13/20 19:41 Nacl 0.9% 500 Ml IV DIRECT 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
--- NOTE | 2020-02-15 10:23 | Event Note ---
Date: 02/15/20 ok to have picc line placed
--- NOTE | 2020-02-15 10:51 | Progress Note ---
Assessment and Plan 74-year-old female status post Exploratory laparotomy, extensive small bowel resection, partial colon resection, placement of abthera vac, placement of right radial arterial line, POD 2 1. bowel ischemia with gangrene 2. sepsis 3. LITZY 4. Afib with RVR Pt currently hemodynamically stable. Plan: 1. neuro - continue propofol gtt and fentanyl. Pt to remain sedated on vent until definitive surgery to close abdomen 2. CV - cardiology on board for Afib. Hold Hepgtt as patient had a drop in Hb and some oozing from abdominal incision along with serosang drainage in canister of abthera vac. Monitor Hb - will transfuse if needed. Morral. Vascular consult pending 3. Resp - vent management per ICU team 4. GI - Strict NPO, NGT to LIWS, Abthera vac to -100mmHg suction. IVF per nephro. Will bolus with NS and continue albumin as needed for insensible losses from abdominal vac and NGT. GI ppx - protonix IV 5. - continue corcoran catheter for strict I/Os. Nephrology on board. Monitor health consultant 6. ID - continue abx - levaquin and flagyl - per ID 7. Endo - strict glucose control 8. Musc - turning q2 as per protocol, skin breakdown precautions, SCDs 9. FEN - NPO, IVF, replace lytes as needed. Will order PICC line - oked by nephro. Pt will need TPN. Plan to return to OR tomorrow for second look, bowel anastamosis, and possible closure of abdomen. Discussed this with patient's daughter over the phone along with all risks associated with procedure. Consent obtained and patient added to OR schedule for tomorrow. Posting Specialist notes reviewed and recs appreciated Prognosis is guarded. Thank you, please call with questions. Subjective Date of service: 02/15/20 Narrative: Patient seen and examined. No overnight events noted. No fevers, chills. Remains sedated on the ventilator. Objective Vital Signs - 12hr 02/14/20 02/14/20 02/14/20 23:00 23:10 23:30 Temperature 99.9 F H Pulse Rate 116 H 88 Respiratory 14 15 Rate Blood Pressure 125/50 131/58 O2 Sat by Pulse 95 98 Oximetry 02/14/20 02/15/20 02/15/20 23:58 00:00 00:30 Temperature Pulse Rate 89 87 95 H Respiratory 19 15 16 Rate Blood Pressure 126/62 126/62 134/49 O2 Sat by Pulse 98 99 92 Oximetry 02/15/20 02/15/20 02/15/20 01:00 01:30 02:00 Temperature Pulse Rate 85 94 H 121 H Respiratory 15 15 16 Rate Blood Pressure 145/53 120/62 136/68 O2 Sat by Pulse 98 98 97 Oximetry 02/15/20 02/15/20 02/15/20 02:30 03:00 03:21 Temperature 99.2 F Pulse Rate 72 95 H Respiratory 15 16 Rate Blood Pressure 117/47 114/50 O2 Sat by Pulse 97 96 Oximetry 02/15/20 02/15/20 02/15/20 03:30 04:00 04:30 Temperature Pulse Rate 73 75 68 Respiratory 15 15 15 Rate Blood Pressure 113/41 108/41 109/42 O2 Sat by Pulse 96 97 97 Oximetry 02/15/20 02/15/20 02/15/20 05:00 05:30 06:00 Temperature Pulse Rate 71 67 67 Respiratory 15 15 15 Rate Blood Pressure 112/45 118/52 115/44 O2 Sat by Pulse 97 98 96 Oximetry 02/15/20 02/15/20 02/15/20 06:30 07:00 07:30 Temperature Pulse Rate 71 72 101 H Respiratory 16 15 24 Rate Blood Pressure 117/51 132/50 114/54 O2 Sat by Pulse 99 98 95 Oximetry 02/15/20 02/15/20 02/15/20 08:00 08:30 09:00 Temperature 98.5 F Pulse Rate 74 74 71 Respiratory 16 21 15 Rate Blood Pressure 130/47 125/48 126/50 O2 Sat by Pulse 96 97 97 Oximetry 02/15/20 02/15/20 02/15/20 09:30 10:00 10:30 Temperature Pulse Rate 79 94 H 77 Respiratory 16 14 15 Rate Blood Pressure 133/52 129/50 130/50 O2 Sat by Pulse 97 98 97 Oximetry - General physical appearance Narrative Exam: Gen: Intubated, sedated. NAD ENT: ETT in place. NGT with dark bilious output CV: s1, S2+ Afib Resp: on vent. No audible wheezes Abd: soft, NT, ND. Abthera vac in place with serosang drainage. No leak, good seal Ext: no c/c/e : corcoran with clear yellow urine I/Os: Corcoran - 595cc/24h NGT - not recorded Abthera vac - 975cc/24hr - Labs 02/15/20 04:28 02/15/20 04:28 Diabetes panel 02/15/20 Range/Units 04:28 Sodium 138 (137-145) mmol/L Potassium 4.9 (3.6-5.0) mmol/L Chloride 104.3 (98-107) mmol/L Carbon Dioxide 12 L (22-30) mmol/L BUN 72 H (7-17) mg/dL Creatinine 4.7 H (0.7-1.2) mg/dL Glucose 147 H (65-100) mg/dL Calcium 7.9 L (8.4-10.2) mg/dL Calcium panel 02/15/20 Range/Units 04:28 Calcium 7.9 L (8.4-10.2) mg/dL Pituitary panel 02/15/20 Range/Units 04:28 Sodium 138 (137-145) mmol/L Potassium 4.9 (3.6-5.0) mmol/L Chloride 104.3 (98-107) mmol/L Carbon Dioxide 12 L (22-30) mmol/L BUN 72 H (7-17) mg/dL Creatinine 4.7 H (0.7-1.2) mg/dL Glucose 147 H (65-100) mg/dL Calcium 7.9 L (8.4-10.2) mg/dL Adrenal panel 02/15/20 Range/Units 04:28 Sodium 138 (137-145) mmol/L Potassium 4.9 (3.6-5.0) mmol/L Chloride 104.3 (98-107) mmol/L Carbon Dioxide 12 L (22-30) mmol/L BUN 72 H (7-17) mg/dL Creatinine 4.7 H (0.7-1.2) mg/dL Glucose 147 H (65-100) mg/dL Calcium 7.9 L (8.4-10.2) mg/dL
--- NOTE | 2020-02-15 10:56 | Progress Note ---
Assessment and Plan 1. Status post laparotomy for ischemic bowel resection 2. Permanent atrial fibrillation 3. Essential hypertension 4. Type 2 diabetes mellitus 5. Metabolic encephalopathy 6. Hyperlipidemia. 7. Leukocytosis and sepsis 8. Acute renal failure Echocardiogram Normal LC size concentric LVH LVEF 60% Plan. Patient is critically ill with evidence of combined metabolic and respiratory acidosis which is being addressed by PCP fluid management as per nephrology given acute renal failure will continue to monitor cardiac status. Subjective Date of service: 02/15/20 Principal diagnosis: Ischemic Bowel Interval history: Intubated and sedated Objective Vital Signs Temp Pulse Resp BP Pulse Ox 02/15/20 10:30 77 15 130/50 97 02/15/20 10:00 94 H 14 129/50 98 02/15/20 09:30 79 16 133/52 97 02/15/20 09:00 71 15 126/50 97 02/15/20 08:30 74 21 125/48 97 02/15/20 08:00 98.5 F 74 16 130/47 96 02/15/20 07:30 101 H 24 114/54 95 02/15/20 07:00 72 15 132/50 98 02/15/20 06:30 71 16 117/51 99 02/15/20 06:00 67 15 115/44 96 02/15/20 05:30 67 15 118/52 98 02/15/20 05:00 71 15 112/45 97 02/15/20 04:30 68 15 109/42 97 02/15/20 04:00 75 15 108/41 97 02/15/20 03:30 73 15 113/41 96 02/15/20 03:21 99.2 F 02/15/20 03:00 95 H 16 114/50 96 02/15/20 02:30 72 15 117/47 97 02/15/20 02:00 121 H 16 136/68 97 02/15/20 01:30 94 H 15 120/62 98 02/15/20 01:00 85 15 145/53 98 02/15/20 00:30 95 H 16 134/49 92 02/15/20 00:00 87 15 126/62 99 02/14/20 23:58 89 19 126/62 98 02/14/20 23:30 88 15 131/58 98 02/14/20 23:10 99.9 F H 06/20/20 23:00 116 H 14 125/50 95 02/14/20 22:30 93 H 15 141/54 98 02/14/20 22:00 93 H 14 138/71 97 02/14/20 21:30 94 H 15 135/64 96 02/14/20 21:00 116 H 19 131/70 94 02/14/20 20:30 111 H 15 133/69 97 02/14/20 20:00 116 H 15 144/73 96 02/14/20 19:44 98.5 F 02/14/20 19:30 111 H 17 148/74 98 02/14/20 19:17 110 H 147/73 98 02/14/20 19:00 126 H 15 154/74 97 02/14/20 18:30 130 H 20 150/80 97 02/14/20 18:00 129 H 19 133/81 97 02/14/20 17:30 124 H 15 149/78 99 02/14/20 17:00 125 H 14 147/74 99 02/14/20 16:30 125 H 16 136/73 100 02/14/20 16:00 98.5 F 121 H 15 136/73 99 02/14/20 15:31 118 H 119/80 98 02/14/20 15:30 126 H 15 146/74 98 02/14/20 15:00 122 H 15 119/80 99 02/14/20 14:30 118 H 16 119/80 98 02/14/20 14:00 129 H 16 157/67 98 02/14/20 13:30 128 H 22 140/74 94 02/14/20 13:00 129 H 23 117/72 97 02/14/20 12:30 126 H 16 117/72 98 02/14/20 12:00 98.1 F 128 H 15 139/78 99 02/14/20 11:30 108 H 15 144/69 99 02/14/20 11:17 132 H 116/67 98 02/14/20 11:00 115 H 17 116/67 99 - Physical Examination General: Other (intubated and sedated) HEENT: Positive: PERRL Neck: Positive: neck supple, trachea midline. Negative: JVD/HJR Cardiac: Positive: Regular Rate, irregularly irregular, S1/S2, PMI, Laterally Displaced Lungs: Positive: Normal Breath Sounds, No Wheeze, Rales, Rhonchi Neuro: Positive: Weakness Abdomen: Positive: Distended Skin: Positive: Clear Extremities: Absent: edema - Labs and Meds CBC 02/15/20 Range/Units 04:28 WBC 10.4 (4.5-11.0) K/mm3 RBC 2.88 L (3.65-5.03) M/mm3 Hgb 8.6 L (10.1-14.3) gm/dl Hct 25.4 L D (30.3-42.9) % Plt Count 157 (140-440) K/mm3 Comprehensive Metabolic Panel 02/15/20 Range/Units 04:28 Sodium 138 (137-145) mmol/L Potassium 4.9 (3.6-5.0) mmol/L Chloride 104.3 (98-107) mmol/L Carbon Dioxide 12 L (22-30) mmol/L BUN 72 H (7-17) mg/dL Creatinine 4.7 H (0.7-1.2) mg/dL Glucose 147 H (65-100) mg/dL Calcium 7.9 L (8.4-10.2) mg/dL
[2020-02-15] MEDS ORDERED: SODIUM BICARBONATE 150 MEQ in DEXTROSE 5% IN WATER 1,000 ML IV SCH (11:00)
[2020-02-15] MEDS ORDERED: SODIUM CHLORIDE 0.9% 500 ML 500 ML IV NR (11:24)
--- NOTE | 2020-02-15 12:34 | Progress Note ---
Subjective Date of service: 02/15/20 Principal diagnosis: Ischemic Bowel Interval history: A/P Assessment and Plan - Patient Problems Ischemic/gangrenous bowel Status post, laparotomy extensive, small bowel resection and partial colon resection General surgery note reviewed For return to the OR tomorrow for review of anastomosis and possibly wound closure Continue IV antibiotics with levofloxacin and metronidazole Anemia Lab results reviewed Hemoglobin dropped from 11-8.6 today IV heparin drip held Patient has been typed and crossmatched Transfuse PRBC as needed for hemoglobin less than 7 Monitor H&H (1) Acute kidney injury rule out acute on chronic kidney disease Current Visit: Yes Status: Acute Plan to address problem: IV fluid resuscitation therapy, avoid nephrotoxic agents. Lab results reviewed Serum creatinine increased to 4.7 today Continue IV fluids Monitor renal function Nephrology note reviewed and appreciated (2) Abdominal pain Current Visit: Yes Status: Acute Secondary to ischemic/gangrenous bowel Status post surgery with extensive small bowel resection and partial colon resection General surgery note reviewed Accelerated hypertension Current Visit: Yes Status: Acute Continue IV Cardizem drip Acute hypoxic respiratory failure Patient remains intubated Pulmonary following Continue management per Dr. Cervantes recommendations ABG results reviewed Atrial fibrillation Of uncertain chronicity Cardiology note reviewed Heparin drip on hold due to drop in hemoglobin and blood in the abthera vac Hypotension: Improved r/o sepsis vs 2/2 medication IV fluids Metabolic acidosis secondary to acute renal failure Current Visit: Yes Status: Acute Plan to address problem: Nephrology following Continue per recommendations of nephrology Ketones are negative Continue sodium bicarbonate drip Neutrophilic leukocytosis; resolved WBC count is in the normal range today likely sepsis versus reactive Blood Cx - no growth ID following Patient is on IV Levaquin and Flagyl at this time Type 2 diabetes: Continue insulin sliding scale coverage No evidence of DKA Nicotine dependence Current Visit: Yes Status: Acute Qualifiers: Nicotine product type: cigarettes Substance use status: in withdrawal Qualified Code(s): F17.213 - Nicotine dependence, cigarettes, with withdrawal Plan to address problem: Smoking cessation counseling, behavior change counseling was done prior to surgery DVT prophylaxis Current Visit: Yes Status: Acute Plan to address problem: SCD to bilateral lower extremities Patient is intubated and sedated Lab results reviewed. nephrology cardiology and pulmonary notes reviewed and appreciated Status post laparotomy Operative findings reviewed Physical Exam: Constitutional: Patient is sedated and intubated Head, Ears, Nose: Normocephalic, atraumatic Eyes: Conjunctivae/corneas clear. Neck: Supple Cardiovascular: S1, S2 normal. Tachycardia Respiratory: Good air entry, clear to auscultation , no rhonchi or wheezing GI: Soft, tender; absent bowel sounds, has abthera vac. In the mid abdomen Musculoskeletal: No pedal edema, no cyanosis. Skin: No rash or abscess Neurological: Patient is sedated, no gross abnormality Objective - Constitutional Vitals: Vital Signs - 12hr 02/15/20 02/15/20 02/15/20 00:30 01:00 01:30 Temperature Pulse Rate 95 H 85 94 H Respiratory 16 15 15 Rate Blood Pressure 134/49 145/53 120/62 O2 Sat by Pulse 92 98 98 Oximetry 02/15/20 02/15/20 02/15/20 02:00 02:30 03:00 Temperature Pulse Rate 121 H 72 95 H Respiratory 16 15 16 Rate Blood Pressure 136/68 117/47 114/50 O2 Sat by Pulse 97 97 96 Oximetry 02/15/20 02/15/20 02/15/20 03:21 03:30 04:00 Temperature 99.2 F Pulse Rate 73 75 Respiratory 15 15 Rate Blood Pressure 113/41 108/41 O2 Sat by Pulse 96 97 Oximetry 02/15/20 02/15/20 02/15/20 04:30 05:00 05:30 Temperature Pulse Rate 68 71 67 Respiratory 15 15 15 Rate Blood Pressure 109/42 112/45 118/52 O2 Sat by Pulse 97 97 98 Oximetry 02/15/20 02/15/20 02/15/20 06:00 06:30 07:00 Temperature Pulse Rate 67 71 72 Respiratory 15 16 15 Rate Blood Pressure 115/44 117/51 132/50 O2 Sat by Pulse 96 99 98 Oximetry 02/15/20 02/15/20 02/15/20 07:30 08:00 08:30 Temperature 98.5 F Pulse Rate 101 H 74 74 Respiratory 24 16 21 Rate Blood Pressure 114/54 130/47 125/48 O2 Sat by Pulse 95 96 97 Oximetry 02/15/20 02/15/20 02/15/20 09:00 09:30 10:00 Temperature Pulse Rate 71 79 94 H Respiratory 15 16 14 Rate Blood Pressure 126/50 133/52 129/50 O2 Sat by Pulse 97 97 98 Oximetry 02/15/20 02/15/20 02/15/20 10:30 11:00 11:30 Temperature Pulse Rate 77 77 72 Respiratory 15 16 16 Rate Blood Pressure 130/50 121/58 117/55 O2 Sat by Pulse 97 97 99 Oximetry 02/15/20 02/15/20 11:31 12:00 Temperature Pulse Rate 77 81 Respiratory 16 Rate Blood Pressure 121/58 132/49 O2 Sat by Pulse 97 98 Oximetry - Labs CBC & Chem 7: 02/15/20 04:28 02/15/20 04:28 Labs: Abnormal lab results 02/13/20 02/14/20 02/14/20 Range/Units 17:30 12:11 18:34 RBC (3.65-5.03) M/mm3 Hgb (10.1-14.3) gm/dl Hct (30.3-42.9) % RDW (13.2-15.2) % ABG pH (7.350-7.450) pH Units ABG HCO3 (20.0-26.0) mmol/L ABG Base Excess (-2.0-3.0) mmol/L ABG Hemoglobin (12.0-16.0) gm/dl Oxyhemoglobin (95.0-99.0) % Carbon Dioxide (22-30) mmol/L BUN (7-17) mg/dL Creatinine (0.7-1.2) mg/dL Glucose (65-100) mg/dL POC Glucose 160 H 135 H (70-105) Calcium (8.4-10.2) mg/dL Crossmatch See Detail 02/14/20 02/15/20 02/15/20 Range/Units 23:18 03:19 04:28 RBC (3.65-5.03) M/mm3 Hgb (10.1-14.3) gm/dl Hct (30.3-42.9) % RDW (13.2-15.2) % ABG pH 7.246 L (7.350-7.450) pH Units ABG HCO3 13.7 L (20.0-26.0) mmol/L ABG Base Excess -12.5 L (-2.0-3.0) mmol/L ABG Hemoglobin 8.4 L (12.0-16.0) gm/dl Oxyhemoglobin 94.6 L (95.0-99.0) % Carbon Dioxide 12 L (22-30) mmol/L BUN 72 H (7-17) mg/dL Creatinine 4.7 H (0.7-1.2) mg/dL Glucose 147 H (65-100) mg/dL POC Glucose 138 H (70-105) Calcium 7.9 L (8.4-10.2) mg/dL Crossmatch 02/15/20 02/15/20 Range/Units 04:28 05:35 RBC 2.88 L (3.65-5.03) M/mm3 Hgb 8.6 L (10.1-14.3) gm/dl Hct 25.4 L D (30.3-42.9) % RDW 15.6 H (13.2-15.2) % ABG pH (7.350-7.450) pH Units ABG HCO3 (20.0-26.0) mmol/L ABG Base Excess (-2.0-3.0) mmol/L ABG Hemoglobin (12.0-16.0) gm/dl Oxyhemoglobin (95.0-99.0) % Carbon Dioxide (22-30) mmol/L BUN (7-17) mg/dL Creatinine (0.7-1.2) mg/dL Glucose (65-100) mg/dL POC Glucose 181 H (70-105) Calcium (8.4-10.2) mg/dL Crossmatch HEART Score - HEART Score Troponin: Troponin T < 0.010 ng/mL (0.00-0.029) 02/11/20 15:27
--- NOTE | 2020-02-15 15:30 | XRay Report ---
CHEST 1 VIEW INDICATION / CLINICAL INFORMATION: PICC placement. COMPARISON: 02/15/2020, 0239 hours FINDINGS: SUPPORT DEVICES: Tip of the PICC line projects the level the superior vena cava. Endotracheal tube an d nasogastric tube appear unchanged. HEART / MEDIASTINUM: Unchanged LUNGS / PLEURA: Bilateral interstitial and airspace opacities have mildly worsened in the interval. No pneumothorax. ADDITIONAL FINDINGS: No significant additional findings. IMPRESSION: 1. Mild worsening of bilateral interstitial and airspace opacities. PICC line, endotracheal tube and nasogastric tube appear in satisfactory position radiographically. Signer Name: Aaron Askew MD Signed: 02/15/2020 3:26 PM Workstation Name: [id number]
--- NOTE | 2020-02-16 04:33 | XRay Report ---
CHEST 1 VIEW INDICATION: follow up respiratory failure COMPARISON: 02/15/2020 FINDINGS: Support devices: Unchanged. Heart: Stable. Lungs/Pleura: Mild, diffuse interstitial edema has improved. No new disease. IMPRESSION: 1. Improvement in the interstitial edema. Signer Name: Ck Garcia MD Signed: 02/16/2020 4:29 AM Workstation Name: [id number]
[2020-02-16 04:43] LABS: ABG Base Excess -4.7 mmol/L (-2.0-3.0); ABG HCO3 20.4 mmol/L (20.0-26.0); ABG Methemoglobin 0.7 % (0.0-1.5); ABG Oxygen Saturation 97.1 % (95.0-99.0); ABG PCO2 37.6 mm Hg; ABG PH 7.353 pH Units (7.350-7.450); ABG PO2 77.4 mm Hg (80.0-90.0)
[2020-02-16 05:53] LABS: Hematocrit 20.2 % (30.3-42.9); Hemoglobin 7.2 gm/dl (10.1-14.3); Mean Corpuscular HGB Conc 36 % (30-34); Mean Corpuscular Volume 88 fl (79-97); Platelet Count 115 K/mm3 (140-440); Red Blood Count 2.31 M/mm3 (3.65-5.03); Red Cell Distribution Width 15.3 % (13.2-15.2)
[2020-02-16] MEDS: INSULIN LISPRO 100 UNIT/ML SUB-Q SCH ×3 (06:08→18:56)
[2020-02-16 06:10] LABS: Calcium 7.2 mg/dL (8.4-10.2)
[2020-02-16] MEDS: metroNIDAZOLE/NS 500 MG/100 ML 500 MG/100 ML BAG IV SCH ×3 (06:13→21:52)
[2020-02-16] MEDS: ALBUMIN HUMAN 25% (25 GM/100 ML) INJ IV SCH (07:20)
[2020-02-16] MEDS ORDERED: SODIUM CHLORIDE 0.9% 500 ML 500 ML IV NR (07:38)
--- NOTE | 2020-02-16 09:10 | Progress Note ---
Assessment and Plan Cultures: Blood culture 02/11/2020 no growth today Sputum culture 02/12/19 no growth today Sputum culture 02/13/19 no growth today A/P: 74-year-old female past medical history hypertension, diabetes, mitral valve prolapse, hyperlipidemia admitted with acute sepsis and abdominal pain #Acute sepsis: resolved; likely due to ischemic bowel. #Peritonitis secondary to ischemia/gangrene of Small bowel and Cecum: s/p Expl oratory laparotomy, extensive small bowel resection, partial colon resection, placement of abthera vac on 02/13/2020. #Presumed infected renal cyst #Diabetes: Tight glycemic control for best outcomes #Diarrhea: resolved prior to presentation, doubt C diff, likely from ischemic bowel. #LITZY on CKD: Renally adjust antibiotics, worsening Recs: -To return to the OR today for review of anastomosis and possibly wound closure -Stop levofloxacin -Start cefepime renally adjusted -Continue metronidazole Will follow. Jo-Ann Mccray MD Infectious Diseases Sanitation Technician [facility] ([facility]) M [phone] O [phone] Subjective Date of service: 02/16/20 Principal diagnosis: Ischemic Bowel Interval history: Remains intubated sedated no fever Objective - Exam Narrative Exam: Constitutional: sedated intubated Head, Ears, Nose: Normocephalic, atraumatic. Eyes: Conjunctivae/corneas clear. No icterus. No ptosis. Neck: Supple, no meningeal signs Oral: +ETT Cardiovascular: S1, S2 normal. Respiratory: Good air entry, clear to auscultation bilaterally GI: Soft, midline wound with VAC. Musculoskeletal: No pedal edema, no cyanosis. Skin: No rash or abscess Hem/Lymphatic: No palpable cervical or supraclavicular nodes. No lymphangitis Psych: no agitated Neurological: sedated PICC - Constitutional Vitals: Vital Signs Temp Pulse Resp BP Pulse Ox 99.5 F 60 16 129/55 95 02/16/20 03:27 02/16/20 07:59 02/16/20 05:30 02/16/20 07:59 02/16/20 07:59 Temperature -Last 24 Hours Temperature 99.5 F Temperature 98.8 F Temperature 98.6 F Temperature 98.4 F Temperature 98.2 F - Labs CBC & Chem 7: 02/16/20 05:29 02/16/20 05:29 Labs: Abnormal lab results 02/13/20 02/15/20 02/15/20 Range/Units 17:30 12:07 17:50 RBC (3.65-5.03) M/mm3 Hgb (10.1-14.3) gm/dl Hct (30.3-42.9) % MCHC (30-34) % RDW (13.2-15.2) % Plt Count (140-440) K/mm3 ABG pO2 (80.0-90.0) mm Hg ABG Base Excess (-2.0-3.0) mmol/L ABG Hemoglobin (12.0-16.0) gm/dl Sodium (137-145) mmol/L Potassium (3.6-5.0) mmol/L Chloride (98-107) mmol/L BUN (7-17) mg/dL Creatinine (0.7-1.2) mg/dL Glucose (65-100) mg/dL POC Glucose 136 H 177 H (70-105) Calcium (8.4-10.2) mg/dL Crossmatch See Detail 02/15/20 02/16/20 02/16/20 Range/Units 23:18 04:20 05:24 RBC (3.65-5.03) M/mm3 Hgb (10.1-14.3) gm/dl Hct (30.3-42.9) % MCHC (30-34) % RDW (13.2-15.2) % Plt Count (140-440) K/mm3 ABG pO2 77.4 L (80.0-90.0) mm Hg ABG Base Excess -4.7 L (-2.0-3.0) mmol/L ABG Hemoglobin 5.0 L (12.0-16.0) gm/dl Sodium (137-145) mmol/L Potassium (3.6-5.0) mmol/L Chloride (98-107) mmol/L BUN (7-17) mg/dL Creatinine (0.7-1.2) mg/dL Glucose (65-100) mg/dL POC Glucose 284 H 282 H (70-105) Calcium (8.4-10.2) mg/dL Crossmatch 02/16/20 02/16/20 Range/Units 05:29 05:29 RBC 2.31 L (3.65-5.03) M/mm3 Hgb 7.2 L (10.1-14.3) gm/dl Hct 20.2 L (30.3-42.9) % MCHC 36 H (30-34) % RDW 15.3 H (13.2-15.2) % Plt Count 115 L (140-440) K/mm3 ABG pO2 (80.0-90.0) mm Hg ABG Base Excess (-2.0-3.0) mmol/L ABG Hemoglobin (12.0-16.0) gm/dl Sodium 135 L (137-145) mmol/L Potassium 3.0 L D (3.6-5.0) mmol/L Chloride 90.7 L (98-107) mmol/L BUN 64 H (7-17) mg/dL Creatinine 4.7 H (0.7-1.2) mg/dL Glucose 491 H (65-100) mg/dL POC Glucose (70-105) Calcium 7.2 L (8.4-10.2) mg/dL Crossmatch
[2020-02-16] MEDS: PANTOPRAZOLE 40 MG INJ IV SCH (09:28)
[2020-02-16] MEDS: fentaNYL DRIP Premix 2,000 MCG/100 ML BAG IV SCH (09:33)
--- NOTE | 2020-02-16 09:42 | Progress Note ---
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 * leucocytosis * type 2 DM--uncontrolled * Acidosis * Hypokalemia * Hypocalcemia * Anemia Plan: * Creatinine stable this AM at 4.7, remains non-oliguric; no indication for renal replacement therapy * May need shear operator if no improvement in renal function or develops severe electrolyte abnormalities * Acidosis improving, will stop HCO3 gtt given hypokalemia, hypocalcemia * Continue IVF and iv abx for volume depletion with UTI * Levaquin for increase concentration inside renal cyst; appreciate further ID recs * surgery note reviewed, s/p surgery, plan for OR noted * PRBC transfusion per primary, will use normal saline for IVFs now, stop IV albumin at this time * Daily lytes; strict i/os * Avoid nephrotoxins * CT noted, no stones or hydronephrosis * vasopressors prn Thank for involving in the care of this critically ill patient. We will follow closely with you; please do not hesitate to call me on my cell at for any renal related issues. High risk for decompensation and needing renal replacement therapy. Subjective Date of service: 02/16/20 Principal diagnosis: Ischemic Bowel Objective - Exam Narrative Exam: Gen: Intubated, sedated ENT: ETT in place. NGT with dark bilious output CV: s1, S2, on dilt gtt Resp: on vent, PRVC with FiO2 50% Abd: soft, NT, ND. Abthera vac in place with serosang drainage. No leak, good seal Ext: no c/c/e : corcoran with clear yellow urine Neuro: sedated on fentanyl, propofol - Vital Signs Vital signs: Vital Signs - 12hr 02/15/20 02/15/20 02/15/20 22:00 22:30 22:44 Temperature Pulse Rate 75 75 75 Respiratory 16 16 16 Rate Blood Pressure 133/62 133/62 127/62 O2 Sat by Pulse 98 98 98 Oximetry 02/15/20 02/15/20 02/15/20 23:00 23:01 23:28 Temperature 98.8 F Pulse Rate 68 79 Respiratory 15 16 Rate Blood Pressure 124/58 124/58 O2 Sat by Pulse 98 98 Oximetry 02/15/20 02/16/20 02/16/20 23:30 00:00 00:22 Temperature Pulse Rate 70 84 73 Respiratory 16 15 Rate Blood Pressure 133/62 133/62 140/52 O2 Sat by Pulse 98 98 98 Oximetry 02/16/20 02/16/20 02/16/20 00:30 01:00 01:30 Temperature Pulse Rate 83 74 75 Respiratory 16 16 14 Rate Blood Pressure 133/62 148/64 133/62 O2 Sat by Pulse 98 98 97 Oximetry 02/16/20 02/16/20 02/16/20 02:00 02:30 03:00 Temperature Pulse Rate 72 68 124 H Respiratory 16 16 15 Rate Blood Pressure 137/61 148/64 151/75 O2 Sat by Pulse 97 97 97 Oximetry 02/16/20 02/16/20 02/16/20 03:27 03:30 04:00 Temperature 99.5 F Pulse Rate 94 H 94 H Respiratory 16 16 Rate Blood Pressure 151/75 151/75 O2 Sat by Pulse 98 98 Oximetry 02/16/20 02/16/20 02/16/20 04:30 04:44 05:00 Temperature Pulse Rate 111 H 102 H 62 Respiratory 15 16 Rate Blood Pressure 151/75 152/62 151/75 O2 Sat by Pulse 97 97 97 Oximetry 02/16/20 02/16/20 05:30 07:59 Temperature Pulse Rate 63 60 Respiratory 16 Rate Blood Pressure 132/61 129/55 O2 Sat by Pulse 96 95 Oximetry - Lab 02/16/20 05:29 02/16/20 05:29 Most recent lab results ABG pH 7.353 pH Units (7.350-7.450) 02/16/20 04:20 ABG pCO2 37.6 mm Hg 02/16/20 04:20 ABG pO2 77.4 mm Hg (80.0-90.0) L 02/16/20 04:20 ABG HCO3 20.4 mmol/L (20.0-26.0) 02/16/20 04:20 ABG O2 Saturation 97.1 % (95.0-99.0) 02/16/20 04:20 Calcium 7.2 mg/dL (8.4-10.2) L 02/16/20 05:29 Urine Creatinine 35.3 mg/dL (0.1-20.0) H 02/12/20 Unknown Urine Total Protein 796 mg/dL (5-11.8) H 02/12/20 Unknown Medications & Allergies - Medications Allergies/Adverse Reactions: Allergies clindamycin Allergy (Verified 02/11/20 14:52) Hives Home Medications: Home Medications Medication Instructions Recorded Confirmed Last Taken Type Doxazosin [Cardura] 4 mg PO QDAY 02/11/20 02/11/20 02/10/20 History Hydralazine HCl 50 mg PO DAILY 02/11/20 02/11/20 02/10/20 History Metoprolol 25 mg PO DAILY 02/11/20 02/11/20 02/10/20 History Sertraline [Zoloft] 50 mg PO QDAY 02/11/20 02/11/20 02/10/20 History amLODIPine [Norvasc] 10 mg PO DAILY 02/11/20 02/11/20 02/10/20 History glipiZIDE 10 mg PO BID 02/11/20 02/11/20 02/10/20 History Active Medications: Generic Name Dose Route Start Last Admin Trade Name Freq PRN Reason Stop Dose Admin Acetaminophen 650 mg 02/11/20 19:01 02/12/20 17:00 Tylenol PO 650 mg Q4H PRN Administration Pain MILD(1-3)/Fever >100.5/ADAMS Albumin Human 25 gm 02/14/20 14:00 02/16/20 07:20 Alburx 25% (Albumin) IV 02/16/20 12:00 25 gm Q8HR NADER Administration Fentanyl 50 mcg 02/13/20 19:21 Sublimaze IV Q5MIN PRN Pain , Severe (7-10) Hydralazine HCl 10 mg 02/11/20 18:07 02/12/20 00:27 Apresoline IV 10 mg Q6HR PRN Administration Hypertension Hydromorphone HCl 1 mg 02/14/20 13:00 02/15/20 03:22 Dilaudid IV 1 mg Q3H PRN Administration Pain , Severe (7-10) Hydrophilic Ointment 1 applic 02/13/20 19:41 Vaseline Lip Therapy TP Q2HR PRN Dry Lips Metronidazole 500 mg in 100 mls @ 100 mls/hr 02/12/20 15:40 02/16/20 06:13 Flagyl 500 Mg/100 Ml IV 100 mls/hr Q8HR NADER Administration Levofloxacin/Dextrose 250 mg in 50 mls @ 50 mls/hr 02/13/20 11:00 02/16/20 09:28 Levaquin 250mg/50ml IV 50 mls/hr Q24HR NADER Administration Protocol Fentanyl Citrate 2,000 mcg in 100 mls @ 3.4 mls/hr 02/13/20 20:00 02/16/20 09:33 Fentanyl Drip Premix IV 2 mcg/kg/hr TITR NADER 6.8 mls/hr Administration Protocol 1 MCG/KG/HR Propofol 1,000 mg in 100 mls @ 2.04 mls/hr 02/13/20 20:00 02/16/20 09:34 Diprivan 10 Mg/Ml IV 35 mcg/kg/min TITR NADER 14.28 mls/hr Administration Protocol 5 MCG/KG/MIN Heparin Sodium/Sodium Chloride 25,000 unit in 500 mls @ 20 mls/hr 02/13/20 20:00 02/15/20 10:40 Heparin/ 0.45% Nacl-25,000 Unit/500 Ml IV 0 units/hr TITR NADER 0 mls/hr Titration Protocol 1,000 UNITS/HR Diltiazem HCl 100 mg in 100 mls @ 5 mls/hr 02/14/20 13:00 02/15/20 18:17 Cardizem/D5w 100mg/100ml IV 10 mg/hr TITR NADER 10 mls/hr Administration Protocol 5 MG/HR Sodium Bicarbonate 150 meq/ 1,150 mls @ 125 mls/hr 02/15/20 11:00 02/15/20 14:00 Dextrose IV 125 mls/hr DIRECT NADER Administration Sodium Chloride 500 mls @ 0 mls/hr 02/16/20 07:38 Nacl 0.9% 500 Ml IV 02/16/20 23:59 ONCE NR As Directed Cefepime HCl 1 gm in 100 mls @ 200 mls/hr 02/16/20 10:00 Cefepime/Ns 1 Gm/100 Ml IV Q12HR NADER Protocol Insulin Human Lispro 0 unit 02/13/20 12:00 02/16/20 06:08 Humalog SUB-Q 6 unit Q6HR NADER Administration Protocol Labetalol HCl 20 mg 02/13/20 18:00 Labetalol IV Q4H PRN SBP >150 Metoprolol Tartrate 2.5 mg 02/13/20 18:00 02/14/20 10:46 Metoprolol IV 2.5 mg Q6HR PRN Administration HR >130 Multi-Ingred Cream/Lotion/Oil/Oint 1 applic 02/13/20 19:41 Artificial Tears Ophth Oint OU Q4HR PRN Dry Eye(s) Ondansetron HCl 4 mg 02/11/20 19:01 02/12/20 05:44 Zofran IV 4 mg Q8H PRN Administration Nausea And Vomiting Ondansetron HCl 4 mg 02/13/20 19:21 Zofran IV ONCE PRN Nausea And Vomiting Pantoprazole Sodium 40 mg 02/14/20 22:00 02/16/20 09:28 Protonix IV 02/16/20 21:59 40 mg BID NADER Administration Sodium Chloride 10 ml 02/11/20 22:00 02/16/20 09:29 Sodium Chloride Flush Syringe 10 Ml IV 10 ml BID NADER Administration Sodium Chloride 10 ml 02/11/20 19:01 02/15/20 22:43 Sodium Chloride Flush Syringe 10 Ml IV 10 ml PRN PRN Administration LINE FLUSH Sodium Chloride 5 ml 02/13/20 19:41 Nacl 0.9% 500 Ml IV DIRECT 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
--- NOTE | 2020-02-16 12:08 | Progress Note ---
Assessment and Plan 74 y/o female with abdominal pain, hypotension, now hypertensive with tachycardia and pain, worrisome for SBO and inflammation in colon from diverticula with worsening renal function. 02/16/2020: Picc line placed yesterday. Going to OR today, plan around 1330. If able to close, could consider starting to wean as early as tomorrow but will touch base with surgery first. Patient HR in the 50's on drip so cards decreased. Discussed on rounds, but I asked nursing if any further issues to just stop the drip. Prognosis remains guarded. Trigylcerides not checked so will order stat. 02/15/2020: No new recs for today. Happy with current clinical state in regards to sedation, ventilation and oxygenation. Appreciate surgery and nephro help. follow up any new recs from them. Agree with picc line, will get tomorrow as I believe they (picc team) are not available on Sunday. Will check triglyceride level in the am. 1. Continue deep sedation and pain control. No plans on weaning or extubation until abdominal issues are done. 2. Continue corcoran 3. Follow up surgery recs. Greatly appreciate them and their help. Plan for return to OR on Sunday. 4. IV abx, ID following. 5. Cardiology has elected for dilt drip. Suggest titrating. Gave nurse parameters. 6. Follow up renal rec Guarded prognosis. CCT 31 minutes. Subjective Date of service: 02/16/20 Principal diagnosis: Ischemic Bowel Interval history: No acute events overnight. Stable on vent. Abdomen remains open. Urine is still being made. Cr about the same. Nephro changed the fluids this am. Got PICC and will be started on TPN. Objective Vital Signs - 12hr 02/16/20 02/16/20 02/16/20 00:00 00:22 00:30 Temperature Pulse Rate 84 73 83 Respiratory 15 16 Rate Blood Pressure 133/62 140/52 133/62 O2 Sat by Pulse 98 98 98 Oximetry 02/16/20 02/16/20 02/16/20 01:00 01:30 02:00 Temperature Pulse Rate 74 75 72 Respiratory 16 14 16 Rate Blood Pressure 148/64 133/62 137/61 O2 Sat by Pulse 98 97 97 Oximetry 02/16/20 02/16/20 02/16/20 02:30 03:00 03:27 Temperature 99.5 F Pulse Rate 68 124 H Respiratory 16 15 Rate Blood Pressure 148/64 151/75 O2 Sat by Pulse 97 97 Oximetry 02/16/20 02/16/20 02/16/20 03:30 04:00 04:30 Temperature Pulse Rate 94 H 94 H 111 H Respiratory 16 16 15 Rate Blood Pressure 151/75 151/75 151/75 O2 Sat by Pulse 98 98 97 Oximetry 02/16/20 02/16/20 02/16/20 04:44 05:00 05:30 Temperature Pulse Rate 102 H 62 63 Respiratory 16 16 Rate Blood Pressure 152/62 151/75 132/61 O2 Sat by Pulse 97 97 96 Oximetry 02/16/20 02/16/20 02/16/20 07:59 08:00 11:08 Temperature 98.1 F 97.8 F Pulse Rate 60 72 Respiratory 15 Rate Blood Pressure 129/55 140/54 O2 Sat by Pulse 95 96 Oximetry 02/16/20 11:10 Temperature Pulse Rate 71 Respiratory Rate Blood Pressure 151/57 O2 Sat by Pulse 96 Oximetry CBC and BMP: 02/16/20 05:29 02/16/20 05:29 ABG, PT/INR, D-dimer: ABG ABG pH 7.353 pH Units (7.350-7.450) 02/16/20 04:20 ABG pCO2 37.6 mm Hg 02/16/20 04:20 ABG pO2 77.4 mm Hg (80.0-90.0) L 02/16/20 04:20 ABG O2 Saturation 97.1 % (95.0-99.0) 02/16/20 04:20 PT/INR, D-dimer PT 16.9 Sec. (12.2-14.9) H 02/13/20 20:10 INR 1.41 (0.87-1.13) H 02/13/20 20:10 Abnormal lab findings: Abnormal Labs 02/11/20 02/11/20 02/11/20 15:27 15:27 15:27 WBC 22.5 H RBC Hgb Hct MCHC RDW Plt Count Seg Neuts % (Manual) 90.0 H Lymphocytes % (Manual) 4.0 L Seg Neutrophils # Man 20.3 H Lymphocytes # (Manual) 0.9 L Monocytes # (Manual) 1.1 H PT INR APTT 23.3 L ABG pH ABG pO2 ABG HCO3 ABG Base Excess ABG Hemoglobin Oxyhemoglobin Sodium 132 L Potassium Chloride 96.0 L Carbon Dioxide 16 L BUN 59 H Creatinine 3.0 H Glucose 487 H POC Glucose Calcium Alkaline Phosphatase 142 H Albumin Lipase 86 H Urine Creatinine Urine Total Protein Crossmatch 02/12/20 02/12/20 02/12/20 04:58 04:58 Unknown WBC 30.0 H RBC Hgb Hct MCHC RDW Plt Count Seg Neuts % (Manual) 96.0 H Lymphocytes % (Manual) 1.0 L Seg Neutrophils # Man 28.8 H Lymphocytes # (Manual) 0.3 L Monocytes # (Manual) 0.9 H PT INR APTT ABG pH ABG pO2 ABG HCO3 ABG Base Excess ABG Hemoglobin Oxyhemoglobin Sodium Potassium Chloride Carbon Dioxide 15 L BUN 59 H Creatinine 3.0 H Glucose 477 H POC Glucose Calcium Alkaline Phosphatase Albumin 3.5 L Lipase Urine Creatinine 35.3 H Urine Total Protein 796 H Crossmatch 02/13/20 02/13/20 02/13/20 05:43 05:43 13:24 WBC 38.2 H RBC Hgb Hct 43.6 H MCHC RDW Plt Count Seg Neuts % (Manual) 91.0 H Lymphocytes % (Manual) 4.0 L Seg Neutrophils # Man 34.8 H Lymphocytes # (Manual) Monocytes # (Manual) 1.1 H PT INR APTT ABG pH ABG pO2 ABG HCO3 ABG Base Excess ABG Hemoglobin Oxyhemoglobin Sodium 136 L Potassium Chloride Carbon Dioxide 11 L BUN 71 H Creatinine 4.0 H Glucose 343 H POC Glucose 337 H Calcium Alkaline Phosphatase Albumin Lipase Urine Creatinine Urine Total Protein Crossmatch 02/13/20 02/13/20 02/13/20 16:49 16:50 17:30 WBC RBC Hgb Hct MCHC RDW Plt Count Seg Neuts % (Manual) Lymphocytes % (Manual) Seg Neutrophils # Man Lymphocytes # (Manual) Monocytes # (Manual) PT INR APTT ABG pH 7.226 L ABG pO2 77.9 L ABG HCO3 16.4 L ABG Base Excess -10.5 L ABG Hemoglobin 11.7 L Oxyhemoglobin 92.8 L Sodium Potassium Chloride Carbon Dioxide BUN Creatinine Glucose POC Glucose 272 H Calcium Alkaline Phosphatase Albumin Lipase Urine Creatinine Urine Total Protein Crossmatch See Detail 02/13/20 02/13/20 02/14/20 20:10 22:08 00:22 WBC RBC Hgb Hct MCHC RDW Plt Count Seg Neuts % (Manual) Lymphocytes % (Manual) Seg Neutrophils # Man Lymphocytes # (Manual) Monocytes # (Manual) PT 16.9 H INR 1.41 H APTT ABG pH 7.158 L* ABG pO2 ABG HCO3 18.6 L ABG Base Excess -10.2 L ABG Hemoglobin 11.9 L Oxyhemoglobin 93.1 L Sodium Potassium Chloride Carbon Dioxide BUN Creatinine Glucose POC Glucose 199 H Calcium Alkaline Phosphatase Albumin Lipase Urine Creatinine Urine Total Protein Crossmatch 02/14/20 02/14/20 02/14/20 03:45 04:29 04:29 WBC 14.4 H RBC Hgb Hct MCHC RDW 15.3 H Plt Count Seg Neuts % (Manual) 88.0 H Lymphocytes % (Manual) 6.0 L Seg Neutrophils # Man 12.7 H Lymphocytes # (Manual) 0.9 L Monocytes # (Manual) PT INR APTT ABG pH 7.193 L* ABG pO2 ABG HCO3 16.4 L ABG Base Excess -11.2 L ABG Hemoglobin 10.2 L Oxyhemoglobin 94.3 L Sodium Potassium Chloride 108.5 H Carbon Dioxide 16 L BUN 73 H Creatinine 4.3 H Glucose 167 H POC Glucose Calcium 8.0 L Alkaline Phosphatase Albumin Lipase Urine Creatinine Urine Total Protein Crossmatch 02/14/20 02/14/20 02/14/20 05:26 12:11 18:34 WBC RBC Hgb Hct MCHC RDW Plt Count Seg Neuts % (Manual) Lymphocytes % (Manual) Seg Neutrophils # Man Lymphocytes # (Manual) Monocytes # (Manual) PT INR APTT ABG pH ABG pO2 ABG HCO3 ABG Base Excess ABG Hemoglobin Oxyhemoglobin Sodium Potassium Chloride Carbon Dioxide BUN Creatinine Glucose POC Glucose 177 H 160 H 135 H Calcium Alkaline Phosphatase Albumin Lipase Urine Creatinine Urine Total Protein Crossmatch 02/14/20 02/15/20 02/15/20 23:18 03:19 04:28 WBC RBC Hgb Hct MCHC RDW Plt Count Seg Neuts % (Manual) Lymphocytes % (Manual) Seg Neutrophils # Man Lymphocytes # (Manual) Monocytes # (Manual) PT INR APTT ABG pH 7.246 L ABG pO2 ABG HCO3 13.7 L ABG Base Excess -12.5 L ABG Hemoglobin 8.4 L Oxyhemoglobin 94.6 L Sodium Potassium Chloride Carbon Dioxide 12 L BUN 72 H Creatinine 4.7 H Glucose 147 H POC Glucose 138 H Calcium 7.9 L Alkaline Phosphatase Albumin Lipase Urine Creatinine Urine Total Protein Crossmatch 02/15/20 02/15/20 02/15/20 04:28 05:35 12:07 WBC RBC 2.88 L Hgb 8.6 L Hct 25.4 L D MCHC RDW 15.6 H Plt Count Seg Neuts % (Manual) Lymphocytes % (Manual) Seg Neutrophils # Man Lymphocytes # (Manual) Monocytes # (Manual) PT INR APTT ABG pH ABG pO2 ABG HCO3 ABG Base Excess ABG Hemoglobin Oxyhemoglobin Sodium Potassium Chloride Carbon Dioxide BUN Creatinine Glucose POC Glucose 181 H 136 H Calcium Alkaline Phosphatase Albumin Lipase Urine Creatinine Urine Total Protein Crossmatch 02/15/20 02/15/20 02/16/20 17:50 23:18 04:20 WBC RBC Hgb Hct MCHC RDW Plt Count Seg Neuts % (Manual) Lymphocytes % (Manual) Seg Neutrophils # Man Lymphocytes # (Manual) Monocytes # (Manual) PT INR APTT ABG pH ABG pO2 77.4 L ABG HCO3 ABG Base Excess -4.7 L ABG Hemoglobin 5.0 L Oxyhemoglobin Sodium Potassium Chloride Carbon Dioxide BUN Creatinine Glucose POC Glucose 177 H 284 H Calcium Alkaline Phosphatase Albumin Lipase Urine Creatinine Urine Total Protein Crossmatch 02/16/20 02/16/20 02/16/20 05:24 05:29 05:29 WBC RBC 2.31 L Hgb 7.2 L Hct 20.2 L MCHC 36 H RDW 15.3 H Plt Count 115 L Seg Neuts % (Manual) Lymphocytes % (Manual) Seg Neutrophils # Man Lymphocytes # (Manual) Monocytes # (Manual) PT INR APTT ABG pH ABG pO2 ABG HCO3 ABG Base Excess ABG Hemoglobin Oxyhemoglobin Sodium 135 L Potassium 3.0 L D Chloride 90.7 L Carbon Dioxide BUN 64 H Creatinine 4.7 H Glucose 491 H POC Glucose 282 H Calcium 7.2 L Alkaline Phosphatase Albumin Lipase Urine Creatinine Urine Total Protein Crossmatch 02/16/20 08:39 WBC RBC Hgb Hct MCHC RDW Plt Count Seg Neuts % (Manual) Lymphocytes % (Manual) Seg Neutrophils # Man Lymphocytes # (Manual) Monocytes # (Manual) PT INR APTT ABG pH ABG pO2 ABG HCO3 ABG Base Excess ABG Hemoglobin Oxyhemoglobin Sodium Potassium Chloride Carbon Dioxide BUN Creatinine Glucose POC Glucose Calcium Alkaline Phosphatase Albumin Lipase Urine Creatinine Urine Total Protein Crossmatch See Detail
[2020-02-16] MEDS: hydrALAZINE 20 MG/1 ML INJ IV PRN ×2 (12:09→17:52)
[2020-02-16] MEDS: POTASSIUM CHLORIDE 20 MEQ 20 MEQ/100 ML BAG IV SCH ×2 (12:09→12:10)
[2020-02-16] MEDS: CEFEPIME/NS 1 GM/100 ML 1 GM/100 ML BAG IV SCH (12:10)
[2020-02-16] MEDS: SODIUM CHLORIDE 0.9% 1000 ML 1,000 ML IV SCH ×2 (12:15→20:36)
--- NOTE | 2020-02-16 12:18 | Progress Note ---
Assessment and Plan - Patient Problems (1) Atrial fibrillation Current Visit: Yes Status: Acute Plan to address problem: Atrial fibrillation of uncertain duration, possibly chronic. Rate control is optimal, we will reduce the dose of Cardizem. Echocardiogram showed normal left ventricular systolic function with ejection fraction 60 to 65%. We will continue atrial fibrillation management on a rate control strategy. Subjective Date of service: 02/16/20 Principal diagnosis: Ischemic Bowel Interval history: The patient underwent exploratory surgery for ischemic bowel on February 12, and currently remains intubated, on the vent. She was started on intravenous Cardizem which is currently running at 10 mg/h, the atrial fibrillation rate is well controlled in the low 50s. Objective Vital Signs Temp Pulse Resp BP Pulse Ox 02/16/20 12:09 88 161/66 02/16/20 11:53 97.1 F L 85 15 161/66 97 02/16/20 11:23 98.5 F 81 15 146/44 97 02/16/20 11:10 71 151/57 96 02/16/20 11:08 97.8 F 72 15 140/54 96 02/16/20 08:00 98.1 F 02/16/20 07:59 60 129/55 95 02/16/20 05:30 63 16 132/61 96 02/16/20 05:00 62 16 151/75 97 02/16/20 04:44 102 H 152/62 97 02/16/20 04:30 111 H 15 151/75 97 02/16/20 04:00 94 H 16 151/75 98 02/16/20 03:30 94 H 16 151/75 98 02/16/20 03:27 99.5 F 02/16/20 03:00 124 H 15 151/75 97 02/16/20 02:30 68 16 148/64 97 02/16/20 02:00 72 16 137/61 97 02/16/20 01:30 75 14 133/62 97 02/16/20 01:00 74 16 148/64 98 02/16/20 00:30 83 16 133/62 98 02/16/20 00:22 73 140/52 98 02/16/20 00:00 84 15 133/62 98 02/15/20 23:30 70 16 133/62 98 02/15/20 23:28 98.8 F 02/15/20 23:01 79 16 124/58 98 02/15/20 23:00 68 15 124/58 98 02/15/20 22:44 75 16 127/62 98 02/15/20 22:30 75 16 133/62 98 02/15/20 22:00 75 16 133/62 98 02/15/20 21:30 83 16 129/59 99 02/15/20 21:00 91 H 17 127/62 98 02/15/20 20:30 100 H 11 L 127/62 98 02/15/20 20:00 77 16 127/62 98 02/15/20 19:32 98.6 F 02/15/20 19:30 72 16 137/68 99 02/15/20 19:23 80 137/68 98 02/15/20 19:00 74 14 137/68 99 02/15/20 18:30 71 18 121/61 99 02/15/20 18:00 72 16 121/61 99 02/15/20 17:30 75 16 129/67 98 02/15/20 17:00 81 16 129/67 98 02/15/20 16:30 65 16 141/66 98 02/15/20 16:00 98.4 F 82 15 141/66 98 02/15/20 15:30 78 16 128/59 98 02/15/20 15:15 74 128/59 99 02/15/20 15:00 74 16 128/59 99 02/15/20 14:30 73 14 126/65 99 02/15/20 14:00 83 13 126/65 98 02/15/20 13:30 70 16 137/49 98 02/15/20 13:00 77 15 129/47 98 02/15/20 12:30 78 15 124/63 99 - Physical Examination General: Other (intubated and sedated) HEENT: Positive: PERRL Neck: Positive: neck supple, trachea midline. Negative: JVD/HJR Cardiac: Positive: irregularly irregular Lungs: Positive: Decreased Breath Sounds Neuro: Positive: Weakness Abdomen: Positive: Soft, Distended Skin: Positive: Clear Extremities: Absent: edema - Labs and Meds CBC 02/16/20 Range/Units 05:29 WBC 7.1 (4.5-11.0) K/mm3 RBC 2.31 L (3.65-5.03) M/mm3 Hgb 7.2 L (10.1-14.3) gm/dl Hct 20.2 L (30.3-42.9) % Plt Count 115 L (140-440) K/mm3 Comprehensive Metabolic Panel 02/16/20 Range/Units 05:29 Sodium 135 L (137-145) mmol/L Potassium 3.0 L D (3.6-5.0) mmol/L Chloride 90.7 L (98-107) mmol/L Carbon Dioxide 26 D (22-30) mmol/L BUN 64 H (7-17) mg/dL Creatinine 4.7 H (0.7-1.2) mg/dL Glucose 491 H (65-100) mg/dL Calcium 7.2 L (8.4-10.2) mg/dL
--- NOTE | 2020-02-16 12:19 | Consultation ---
History of Present Illness - Reason for Consult Consult date: 02/16/20 SMA thrombus Requesting physician: JASS MURGUIA - History of Present Illness 74-year-old female with past medical history of mitral valve prolapse, hypertension who presented to the emergency room on 02/11/2020 with abdominal pain. The patient was admitted for pain control, elevated creatinine, pradip kocytosis. A CT scan at that time did not show any acute abdominal cause for the abdominal pain. The patient;s pain worsens, and CT was obtained demonstrating nonspecific findings in the abdomen. Due to worsening abdominal pain, exploratory laparotomy was performed by Dr. Murguia. Exploratory laparotomy performed on 02/13/2020 demonstrated extensive small bowel gangrene and small bowel resection was performed with a partial colon resection, placement of abthera vac, and placement of right radial arterial line. Patient will be arriving to the OR today on 02/16/2020. If general surgery is co ncerned about any bowel ischemia in any remaining bowel then vascular will be contacted. Past History Past Medical History: diabetes, hypertension, hyperlipidemia, other (See HPI) Past Surgical History: cholecystectomy, hysterectomy, tonsillectomy Social history: , Lives alone. denies: smoking, alcohol abuse, prescription drug abuse Family history: no significant family history (Reviewed) Medications and Allergies Allergies Allergy/AdvReac Type Severity Reaction Status Date / Time clindamycin Allergy Hives Verified 02/11/20 14:52 Home Medications Medication Instructions Recorded Confirmed Last Taken Type Doxazosin [Cardura] 4 mg PO QDAY 02/11/20 02/11/20 02/10/20 History Hydralazine HCl 50 mg PO DAILY 02/11/20 02/11/20 02/10/20 History Metoprolol 25 mg PO DAILY 02/11/20 02/11/20 02/10/20 History Sertraline [Zoloft] 50 mg PO QDAY 02/11/20 02/11/20 02/10/20 History amLODIPine [Norvasc] 10 mg PO DAILY 02/11/20 02/11/20 02/10/20 History glipiZIDE 10 mg PO BID 02/11/20 02/11/20 02/10/20 History Active Meds: Active Medications Acetaminophen (Tylenol) 650 mg PO Q4H PRN PRN Reason: Pain MILD(1-3)/Fever >100.5/ADAMS Last Admin: 02/12/20 17:00 Dose: 650 mg Documented by: Fentanyl (Sublimaze) 50 mcg IV Q5MIN PRN PRN Reason: Pain , Severe (7-10) Hydralazine HCl (Apresoline) 10 mg IV Q6HR PRN PRN Reason: Hypertension Last Admin: 02/16/20 12:09 Dose: 10 mg Documented by: Hydromorphone HCl (Dilaudid) 1 mg IV Q3H PRN PRN Reason: Pain , Severe (7-10) Last Admin: 02/15/20 03:22 Dose: 1 mg Documented by: Hydrophilic Ointment (Vaseline Lip Therapy) 1 applic TP Q2HR PRN PRN Reason: Dry Lips Metronidazole (Flagyl 500 Mg/100 Ml) 500 mg in 100 mls @ 100 mls/hr IV Q8HR NADER Last Admin: 02/16/20 06:13 Dose: 100 mls/hr Documented by: Levofloxacin/Dextrose (Levaquin 250mg/50ml) 250 mg in 50 mls @ 50 mls/hr IV Q24HR NADER; Protocol Last Admin: 02/16/20 09:28 Dose: 50 mls/hr Documented by: Fentanyl Citrate (Fentanyl Drip Premix) 2,000 mcg in 100 mls @ 3.4 mls/hr IV TITR NADER; Protocol Last Admin: 02/16/20 09:33 Dose: 2 mcg/kg/hr, 6.8 mls/hr Documented by: Propofol (Diprivan 10 Mg/Ml) 1,000 mg in 100 mls @ 2.04 mls/hr IV TITR NADER; Protocol Last Admin: 02/16/20 09:34 Dose: 35 mcg/kg/min, 14.28 mls/hr Documented by: Heparin Sodium/Sodium Chloride (Heparin/ 0.45% Nacl-25,000 Unit/500 Ml) 25,000 unit in 500 mls @ 20 mls/hr IV TITR NADER; Protocol Last Titration: 02/15/20 10:40 Dose: 0 units/hr, 0 mls/hr Documented by: Diltiazem HCl (Cardizem/D5w 100mg/100ml) 100 mg in 100 mls @ 5 mls/hr IV TITR NADER; Protocol Last Admin: 02/15/20 18:17 Dose: 10 mg/hr, 10 mls/hr Documented by: Sodium Chloride (Nacl 0.9% 500 Ml) 500 mls @ 0 mls/hr IV ONCE NR Stop: 02/16/20 23:59 Cefepime HCl (Cefepime/Ns 1 Gm/100 Ml) 1 gm in 100 mls @ 200 mls/hr IV Q24HR NADER; Protocol Last Admin: 02/16/20 12:10 Dose: 200 mls/hr Documented by: Sodium Chloride (Nacl 0.9% 1000 Ml) 1,000 mls @ 150 mls/hr IV DIRECT NADER Last Admin: 02/16/20 12:15 Dose: 150 mls/hr Documented by: Potassium Chloride (Kcl 20meq/100ml) 20 meq in 100 mls @ 100 mls/hr IV Q1H NADER Stop: 02/16/20 13:59 Last Admin: 02/16/20 12:10 Dose: 100 mls/hr Documented by: Insulin Human Lispro (Humalog) 0 unit SUB-Q Q6HR NADER; Protocol Last Admin: 02/16/20 06:08 Dose: 6 unit Documented by: Labetalol HCl (Labetalol) 20 mg IV Q4H PRN PRN Reason: SBP >150 Metoprolol Tartrate (Metoprolol) 2.5 mg IV Q6HR PRN PRN Reason: HR >130 Last Admin: 02/14/20 10:46 Dose: 2.5 mg Documented by: Multi-Ingred Cream/Lotion/Oil/Oint (Artificial Tears Ophth Oint) 1 applic OU Q4HR PRN PRN Reason: Dry Eye(s) Ondansetron HCl (Zofran) 4 mg IV Q8H PRN PRN Reason: Nausea And Vomiting Last Admin: 02/12/20 05:44 Dose: 4 mg Documented by: Ondansetron HCl (Zofran) 4 mg IV ONCE PRN PRN Reason: Nausea And Vomiting Pantoprazole Sodium (Protonix) 40 mg IV BID [facility] Stop: 02/16/20 21:59 Last Admin: 02/16/20 09:28 Dose: 40 mg Documented by: Sodium Chloride (Sodium Chloride Flush Syringe 10 Ml) 10 ml IV BID [facility] Last Admin: 02/16/20 09:29 Dose: 10 ml Documented by: Sodium Chloride (Sodium Chloride Flush Syringe 10 Ml) 10 ml IV PRN PRN PRN Reason: LINE FLUSH Last Admin: 02/15/20 22:43 Dose: 10 ml Documented by: Sodium Chloride (Nacl 0.9% 500 Ml) 5 ml IV DIRECT PRN PRN Reason: [employer] Review of Systems ROS unobtainable: due to mental status Exam - Constitutional Vitals: Temp Pulse Resp BP Pulse Ox 97.1 F L 88 15 161/66 97 02/16/20 11:53 02/16/20 12:09 02/16/20 11:53 02/16/20 12:09 02/16/20 11:53 General appearance: Present: other (Intubated) - Respiratory Respiratory effort: other (Intubated) - Extremities Extremities: normal temperature, normal color Peripheral Pulses: within normal limits (Palpable left radial artery and ulnar artery and bilateral dorsalis pedis arteries.) - Abdominal General gastrointestinal: Present: other (VAC on abdomen with visible minimal serosanguineous material at the periphery of the black sponge without evidence of VAC leak.) - Psychiatric Psychiatric: other (Intubated) Results - Labs CBC & Chem 7: 02/16/20 05:29 02/16/20 05:29 Labs: Abnormal lab results 02/13/20 02/15/20 02/15/20 Range/Units 17:30 12:07 17:50 RBC (3.65-5.03) M/mm3 Hgb (10.1-14.3) gm/dl Hct (30.3-42.9) % MCHC (30-34) % RDW (13.2-15.2) % Plt Count (140-440) K/mm3 ABG pO2 (80.0-90.0) mm Hg ABG Base Excess (-2.0-3.0) mmol/L ABG Hemoglobin (12.0-16.0) gm/dl Sodium (137-145) mmol/L Potassium (3.6-5.0) mmol/L Chloride (98-107) mmol/L BUN (7-17) mg/dL Creatinine (0.7-1.2) mg/dL Glucose (65-100) mg/dL POC Glucose 136 H 177 H (70-105) Calcium (8.4-10.2) mg/dL Crossmatch See Detail 0602/16/20 02/16/20 Range/Units 23:18 04:20 05:24 RBC (3.65-5.03) M/mm3 Hgb (10.1-14.3) gm/dl Hct (30.3-42.9) % MCHC (30-34) % RDW (13.2-15.2) % Plt Count (140-440) K/mm3 ABG pO2 77.4 L (80.0-90.0) mm Hg ABG Base Excess -4.7 L (-2.0-3.0) mmol/L ABG Hemoglobin 5.0 L (12.0-16.0) gm/dl Sodium (137-145) mmol/L Potassium (3.6-5.0) mmol/L Chloride (98-107) mmol/L BUN (7-17) mg/dL Creatinine (0.7-1.2) mg/dL Glucose (65-100) mg/dL POC Glucose 284 H 282 H (70-105) Calcium (8.4-10.2) mg/dL Crossmatch 02/16/20 02/16/20 02/16/20 Range/Units 05:29 05:29 08:39 RBC 2.31 L (3.65-5.03) M/mm3 Hgb 7.2 L (10.1-14.3) gm/dl Hct 20.2 L (30.3-42.9) % MCHC 36 H (30-34) % RDW 15.3 H (13.2-15.2) % Plt Count 115 L (140-440) K/mm3 ABG pO2 (80.0-90.0) mm Hg ABG Base Excess (-2.0-3.0) mmol/L ABG Hemoglobin (12.0-16.0) gm/dl Sodium 135 L (137-145) mmol/L Potassium 3.0 L D (3.6-5.0) mmol/L Chloride 90.7 L (98-107) mmol/L BUN 64 H (7-17) mg/dL Creatinine 4.7 H (0.7-1.2) mg/dL Glucose 491 H (65-100) mg/dL POC Glucose (70-105) Calcium 7.2 L (8.4-10.2) mg/dL Crossmatch See Detail Assessment and Plan 74-year-old female with multiple medical issues who was intubated, and acute renal failure, who underwent extensive small bowel resection. Unfortunately, due to patient's renal issues, the diagnosis could only be made at time of exploratory laparotomy on 02/12/19. At that time, her small bowel was already infarcted with widespread gangrene and necrosis requiring resection of all bowel in the SMA territory. At this time, due to the resection of all bowel in the SMA territory, SMA thrombectomy would provide no significant benefit. Dr. Murguia will contact vascular if necessary at time of second look laparotomy if there is any ischemia of the remaining bowel. The patient has palpable pedal pulses making lower extremity embolization unli kristina. Left upper extremity was evaluated with palpable radial and ulnar pulse. The right upper extremity could not be well evaluated due to radial line, but was warm and appears well perfused. Once patient is able to tolerate anticoagulation, recommend anticoagulation for life. 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
[2020-02-16] MEDS: dilTIAZem/D5W 100 MG/100 ML BAG IV SCH ×2 (13:40→21:57)
--- NOTE | 2020-02-16 13:45 | Progress Note ---
Subjective Date of service: 02/16/20 Principal diagnosis: Ischemic Bowel Interval history: A/P Assessment and Plan - Patient Problems Ischemic/gangrenous bowel Status post, laparotomy extensive, small bowel resection and partial colon resection General surgery note reviewed For return to the OR tomorrow for review of anastomosis and possibly wound closure Continue IV antibiotics with levofloxacin and metronidazole Anemia Lab results reviewed Hemoglobin dropped from 11-8.6 today IV heparin drip held Patient has been typed and crossmatched Transfuse PRBC as needed for hemoglobin less than 7 Monitor H&H (1) Acute kidney injury rule out acute on chronic kidney disease Current Visit: Yes Status: Acute Plan to address problem: IV fluid resuscitation therapy, avoid nephrotoxic agents. Lab results reviewed Serum creatinine increased to 4.7 today Continue IV fluids Monitor renal function Nephrology note reviewed and appreciated (2) Abdominal pain Current Visit: Yes Status: Acute Secondary to ischemic/gangrenous bowel Status post surgery with extensive small bowel resection and partial colon resection General surgery note reviewed Patient scheduled for OR to evaluate anastomosis and possible wound closure Accelerated hypertension Current Visit: Yes Status: Acute Continue IV Cardizem drip Well-controlled Acute hypoxic respiratory failure Patient remains intubated Pulmonary following Continue management per Dr. Cervantes recommendations ABG results reviewed Atrial fibrillation Of uncertain chronicity Cardiology note reviewed Heparin drip on hold due to drop in hemoglobin and blood in the abthera vac Started on IV diltiazem drip Heart rate well controlled Hypotension: Improved Continue IV fluids Metabolic acidosis secondary to acute renal failure Current Visit: Yes Status: Acute Plan to address problem: Nephrology note reviewed Continue per recommendations of nephrology Ketones are negative Continue sodium bicarbonate drip Serum creatinine stable at 4.7 Neutrophilic leukocytosis; resolved WBC count is in the normal range today likely sepsis versus reactive Blood Cx - no growth ID note reviewed Levaquin discontinued Started on cefepime Continue Flagyl Type 2 diabetes: Continue insulin sliding scale coverage No evidence of DKA Nicotine dependence Current Visit: Yes Status: Acute Qualifiers: Nicotine product type: cigarettes Substance use status: in withdrawal Qualified Code(s): F17.213 - Nicotine dependence, cigarettes, with withdrawal Plan to address problem: Smoking cessation counseling, behavior change counseling was done prior to surgery DVT prophylaxis Current Visit: Yes Status: Acute Plan to address problem: SCD to bilateral lower extremities Patient is intubated and sedated Lab results reviewed. nephrology cardiology and pulmonary notes reviewed and appreciated Status post laparotomy Operative findings reviewed Physical Exam: Constitutional: Patient is sedated and intubated Head, Ears, Nose: Normocephalic, atraumatic Eyes: Conjunctivae/corneas clear. Neck: Supple Cardiovascular: S1, S2 normal. Tachycardia Respiratory: Good air entry, clear to auscultation , no rhonchi or wheezing GI: Soft, tender; absent bowel sounds, has abthera vac. In the mid abdomen Musculoskeletal: No pedal edema, no cyanosis. Skin: No rash or abscess Neurological: Patient is sedated, no gross abnormality Objective - Constitutional Vitals: Vital Signs - 12hr 02/16/20 02/16/20 02/16/20 02:00 02:30 03:00 Temperature Pulse Rate 72 68 124 H Respiratory 16 16 15 Rate Blood Pressure 137/61 148/64 151/75 O2 Sat by Pulse 97 97 97 Oximetry 02/16/20 02/16/20 02/16/20 03:27 03:30 04:00 Temperature 99.5 F Pulse Rate 94 H 94 H Respiratory 16 16 Rate Blood Pressure 151/75 151/75 O2 Sat by Pulse 98 98 Oximetry 02/16/20 02/16/20 02/16/20 04:30 04:44 05:00 Temperature Pulse Rate 111 H 102 H 62 Respiratory 15 16 Rate Blood Pressure 151/75 152/62 151/75 O2 Sat by Pulse 97 97 97 Oximetry 02/16/20 02/16/20 02/16/20 05:30 06:00 06:31 Temperature Pulse Rate 63 62 60 Respiratory 16 15 16 Rate Blood Pressure 132/61 134/59 134/59 O2 Sat by Pulse 96 96 96 Oximetry 02/16/20 02/16/20 02/16/20 07:00 07:31 07:59 Temperature Pulse Rate 55 L 58 L 60 Respiratory 16 15 Rate Blood Pressure 132/55 132/55 129/55 O2 Sat by Pulse 96 96 95 Oximetry 02/16/20 02/16/20 02/16/20 08:00 08:31 09:00 Temperature 98.1 F Pulse Rate 54 L 60 63 Respiratory 16 16 16 Rate Blood Pressure 129/55 129/55 134/65 O2 Sat by Pulse 95 95 96 Oximetry 02/16/20 02/16/20 02/16/20 09:31 10:00 10:31 Temperature Pulse Rate 54 L 54 L 54 L Respiratory 16 16 16 Rate Blood Pressure 134/65 139/56 134/65 O2 Sat by Pulse 96 95 95 Oximetry 02/16/20 02/16/20 02/16/20 11:00 11:08 11:10 Temperature 97.8 F Pulse Rate 54 L 72 71 Respiratory 16 15 Rate Blood Pressure 140/54 140/54 151/57 O2 Sat by Pulse 96 96 96 Oximetry 02/16/20 02/16/20 02/16/20 11:23 11:31 11:53 Temperature 98.5 F 97.1 F L Pulse Rate 81 73 85 Respiratory 15 16 15 Rate Blood Pressure 146/44 140/54 161/66 O2 Sat by Pulse 97 97 97 Oximetry 02/16/20 02/16/20 02/16/20 12:00 12:01 12:09 Temperature 97.1 F L Pulse Rate 93 H 76 88 Respiratory 15 16 Rate Blood Pressure 146/44 161/66 O2 Sat by Pulse 98 97 Oximetry 02/16/20 02/16/20 02/16/20 12:23 12:31 12:53 Temperature 97.5 F L 98.1 F Pulse Rate 91 H 87 88 Respiratory 14 14 14 Rate Blood Pressure 149/50 152/55 126/64 O2 Sat by Pulse 96 96 96 Oximetry 02/16/20 02/16/20 02/16/20 13:00 13:23 13:40 Temperature 97.5 F L Pulse Rate 79 74 85 Respiratory 13 16 Rate Blood Pressure 130/66 137/63 137/63 O2 Sat by Pulse 96 96 Oximetry - Labs CBC & Chem 7: 02/16/20 05:29 02/16/20 05:29 Labs: Abnormal lab results 02/13/20 02/15/20 02/15/20 Range/Units 17:30 12:07 17:50 RBC (3.65-5.03) M/mm3 Hgb (10.1-14.3) gm/dl Hct (30.3-42.9) % MCHC (30-34) % RDW (13.2-15.2) % Plt Count (140-440) K/mm3 ABG pO2 (80.0-90.0) mm Hg ABG Base Excess (-2.0-3.0) mmol/L ABG Hemoglobin (12.0-16.0) gm/dl Sodium (137-145) mmol/L Potassium (3.6-5.0) mmol/L Chloride (98-107) mmol/L BUN (7-17) mg/dL Creatinine (0.7-1.2) mg/dL Glucose (65-100) mg/dL POC Glucose 136 H 177 H (70-105) Calcium (8.4-10.2) mg/dL Triglycerides (2-149) mg/dL Crossmatch See Detail 02/15/20 02/16/20 02/16/20 Range/Units 23:18 04:20 05:24 RBC (3.65-5.03) M/mm3 Hgb (10.1-14.3) gm/dl Hct (30.3-42.9) % MCHC (30-34) % RDW (13.2-15.2) % Plt Count (140-440) K/mm3 ABG pO2 77.4 L (80.0-90.0) mm Hg ABG Base Excess -4.7 L (-2.0-3.0) mmol/L ABG Hemoglobin 5.0 L (12.0-16.0) gm/dl Sodium (137-145) mmol/L Potassium (3.6-5.0) mmol/L Chloride (98-107) mmol/L BUN (7-17) mg/dL Creatinine (0.7-1.2) mg/dL Glucose (65-100) mg/dL POC Glucose 284 H 282 H (70-105) Calcium (8.4-10.2) mg/dL Triglycerides (2-149) mg/dL Crossmatch 02/16/20 02/16/20 02/16/20 Range/Units 05:29 05:29 05:29 RBC 2.31 L (3.65-5.03) M/mm3 Hgb 7.2 L (10.1-14.3) gm/dl Hct 20.2 L (30.3-42.9) % MCHC 36 H (30-34) % RDW 15.3 H (13.2-15.2) % Plt Count 115 L (140-440) K/mm3 ABG pO2 (80.0-90.0) mm Hg ABG Base Excess (-2.0-3.0) mmol/L ABG Hemoglobin (12.0-16.0) gm/dl Sodium 135 L (137-145) mmol/L Potassium 3.0 L D (3.6-5.0) mmol/L Chloride 90.7 L (98-107) mmol/L BUN 64 H (7-17) mg/dL Creatinine 4.7 H (0.7-1.2) mg/dL Glucose 491 H (65-100) mg/dL POC Glucose (70-105) Calcium 7.2 L (8.4-10.2) mg/dL Triglycerides 716 H (2-149) mg/dL Crossmatch 02/16/20 Range/Units 08:39 RBC (3.65-5.03) M/mm3 Hgb (10.1-14.3) gm/dl Hct (30.3-42.9) % MCHC (30-34) % RDW (13.2-15.2) % Plt Count (140-440) K/mm3 ABG pO2 (80.0-90.0) mm Hg ABG Base Excess (-2.0-3.0) mmol/L ABG Hemoglobin (12.0-16.0) gm/dl Sodium (137-145) mmol/L Potassium (3.6-5.0) mmol/L Chloride (98-107) mmol/L BUN (7-17) mg/dL Creatinine (0.7-1.2) mg/dL Glucose (65-100) mg/dL POC Glucose (70-105) Calcium (8.4-10.2) mg/dL Triglycerides (2-149) mg/dL Crossmatch See Detail HEART Score - HEART Score Troponin: Troponin T < 0.010 ng/mL (0.00-0.029) 02/11/20 15:27
--- NOTE | 2020-02-16 14:11 | Event Note ---
Date: 02/16/20 Patient chart reviewed. Hemoglobin 7.3 from 8.2. Patient hemodynamically stable. A. fib controlled on diltiazem drip. Wound VAC intact with se rosanguineous drainage. We will transfuse 1 unit of PRBCs as patient with cardiac conditions. Likely having slow oozing from surgical wound bed as patient was on heparin drip. Heparin drip has been stopped since yesterday. Discussed case with vascular surgery. Recommendation is to resume anticoagulation when able and then to transition to oral anticoagulation for life. If necessary, will request vascular presence in the OR today. Recommendations greatly appreciated. Plan to proceed to the operating room today for second look, possible bowel anastomosis, possible closure of the abdomen. Discussed with Dr. Cervantes, if able to successfully close the abdomen, will start weaning ventilator.
--- NOTE | 2020-02-16 15:46 | Anesthesia Consultation ---
Anesthesia Consult and Med Hx Date of service: 02/16/20 - Airway Intubation Access Assessment: Probably Good (Previous easy intubation 02/13/20; oETT in situ) - Pulmonary Exam CTA: No (mechanical ventilation) - Cardiac Exam Cardiac Exam: No Murmur (irregular rhythm) - Pre-Operative Health Status ASA Pre-Surgery Classification: ASA4 Proposed Anesthetic Plan: General - Pulmonary Hx Smoking: Yes Hx Respiratory Symptoms: No (kept intubated post op 2/2 open abdomen) Hx Sleep Apnea: No - Cardiovascular System Hx Hypertension: Yes Hx Heart Attack/AMI: No Hx Percutaneous Transluminal Coronary Angioplasty (PTCA): No Hx Cardia Arrhythmia: Yes (a-fib) Hx Pacemaker: No Hx Internal Defibrillator: No Hx Valvular Heart Disease: Yes (Mitral Valve Prolapse) - Central Nervous System CVA: No - Endocrine Hx Renal Disease: Yes (acute renal failure) Hx Liver Disease: No Hx Insulin Dependent Diabetes: Yes Hx Non-Insulin Dependent Diabetes: No Hx Thyroid Disease: No - Hematic Hx Anemia: Yes (s/p 1 unit pRBCs today) - Other Systems Hx Obesity: No (BMI 25) - Additional Comments Anesthesia Medical History Comments: PMH a-fib, HTN, DM, acute renal failure, and smoking presenting initially with abdominal pain and later underwent ex-lap and was found to have gangrenous bowel 2/2 SMA thrombosis. S/p bowel resection and abthera placement on 02/13/2020 and kept intubated after that procedure. Now scheduled for second look. Patient has been HD stable w/ diltiazem gtt for rate control. Received 1 unit pRBCs; additional units ordered on stand by. Plan GETA, will keep patient intubated post operatively and defer to ICU for vent weaning/extubation. Anesthetic plan discussed with Kelly Toribio (grand daughter, LUIS).
[2020-02-16] MEDS ORDERED: ROCURONIUM 50 MG/5 ML INJ IV ONE (15:59)
--- NOTE | 2020-02-16 16:13 | Anesthesia Day of Surgery ---
Anesthesia Day of Surgery - Day of Surgery Patient Examined: Yes Patient H&P Reviewed: Yes Patient is NPO: Yes
--- NOTE | 2020-02-16 17:28 | Post Operative Note ---
Pre-op diagnosis: open abdomen, ischemic bowel Post-op diagnosis: same Findings: 1. Remaining small and large bowel was viable 2. Palpable pulses in mesentery of colon and remaining small bowel. 3. 95 cm of small bowel remaining. Procedure: exploratory laparotomy, enterocolonic anastamosis, closure of abdomen, application of wound vac Anesthesia: LAMAR Surgeon: JASS MURGUIA Boiler Operator Helper: JACKI RUFF Estimated blood loss: minimal Pathology: none Condition: stable Disposition: ICU
--- NOTE | 2020-02-16 18:06 | Operative Report ---
Operative Report Operative Report: Date: 02/16/20 17:23 Pre-op diagnosis: open abdomen, ischemic bowel Post-op diagnosis: same Findings: 1. Remaining small and large bowel was viable 2. Palpable pulses in mesentery of colon and remaining small bowel. 3. 95 cm of small bowel remaining. 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 At that time she was left in discontinuity and the abdomen temporarily closed with the plan to return to the OR for second look. The patient was resuscitated, started on a heparin drip as well as rate control medication for her A. fib, and prepared for return to the OR in 48 to 72 hours. I discussed all risk benefits, alternatives to surgery with the patient's next of kin, her daughter. Consent was obtained for exploratory laparotomy, possible bowel resection, possible placement of wound VAC, closure of abdomen. Procedure in detail: The patient was identified in her ICU bed and taken to the operating room and placed on the operating room table in supine position. After anesthesia was induced the abdominal dressing was removed and the abdomen prepped and draped in the usual sterile fashion. A timeout was performed. The intra-abdominal AB Thera dressing was removed and discarded. The bowel was eviscerated and inspected. The small bowel appeared less distended. The bowel was pink and viable. There was no injury seen. The mesentery was palpated and there were pulses throughout. The colon was inspected and was pink and viable. There was a strong pulse in the middle colic artery. The ligated mesentery from the bowel resection was hemostatic. The abdomen was then irrigated with warm saline and all 4 quadrants. In the deep pelvis, old blood clot was found but no active bleeding seen in the abdomen. We then turned our attention to creating a small bowel to colon anastomosis. Blue towels were placed around the bowel to control spillage. The antimesenteric borders of the small bowel and colon were aligned and a colotomy and enterotomy created. Any bowel contents were suctioned. A [id number] functional end-to-end antiperistaltic enterocolonic anastomosis was created using a MARIE 75 mm blue load stapler. The common channel was checked for hemostasis which was ensured, and then closed with a TA 60 blue load stapler. The staple line was reinforced with Lembert 3-0 silk stitches. There was no bleeding seen and the common channel was palpated and patent. A 3-0 silk stitch was placed in the crotch of the anastomosis. The omentum was laid over the anastomosis in normal anatomic position. The abdomen was once again irrigated and the irrigant returned clear. Hemostasis was carefully ensured. We then turned our attention to closing the fascia. The fascia was closed in a running fashion using a #1 looped PDS suture. The subcutaneous tissue was irrigated and hemostasis achieved using electrocautery. Once hemostasis was ensured a wound VAC was applied. 1 piece of black sponge was packed into the wound and secured with a Tegaderm dressing. The wound VAC wafer was applied in the usual fashion and connected to suction at -125 mmHg. All black sponge sponge was compressed and there was no leak, and a good seal. At the end of the case, all sponge, instrument, sharp counts were correct x2. The patient was transferred to her hospital bed and taken back to the ICU in stable condition.
--- NOTE | 2020-02-16 19:08 | Post Anesthesia Evaluation ---
- Post Anesthesia Evaluation Patient Participated: No (sedated) Airway Patent: Yes Stable Respiratory Function: Yes Nausea/Vomiting: No Temp > 96.8F: Yes Pain Manageable: Yes Adequeate Hydration: Yes Anesthesia Complications: No Patient on Ventilator: Yes (returned to pre-op vent settings) Other Comments: Transported to ICU by SUPERVISOR [employer] and RN with monitors and AMBU. VS stable. Handoff given at bedside.
[2020-02-17] MEDS: INSULIN LISPRO 100 UNIT/ML SUB-Q SCH ×5 (00:16→23:35)
[2020-02-17] MEDS: fentaNYL DRIP Premix 2,000 MCG/100 ML BAG IV SCH (00:19)
--- NOTE | 2020-02-17 03:27 | XRay Report ---
CHEST 1 VIEW INDICATION: follow up respiratory failure COMPARISON: 02/16/2020 FINDINGS: Support devices: Unchanged. Heart: Stable. Lungs/Pleura: Minimal disease in the lung bases, quite possibly atelectasis. No new disease. IMPRESSION: 1. No significant change. Signer Name: Ck Garcia MD Signed: 02/17/2020 3:23 AM Workstation Name: [id number]
[2020-02-17] MEDS: SODIUM CHLORIDE 0.9% 1000 ML 1,000 ML IV SCH ×3 (03:47→17:50)
[2020-02-17 03:51] LABS: Hematocrit 30.1 % (30.3-42.9); Hemoglobin 9.9 gm/dl (10.1-14.3)
[2020-02-17 04:21] LABS: Calcium 7.6 mg/dL (8.4-10.2)
[2020-02-17 04:24] LABS: ABG Base Excess -4.9 mmol/L (-2.0-3.0); ABG HCO3 21.5 mmol/L (20.0-26.0); ABG Methemoglobin 0.8 % (0.0-1.5); ABG Oxygen Saturation 96.1 % (95.0-99.0); ABG PCO2 46.1 mm Hg; ABG PH 7.288 pH Units (7.350-7.450); ABG PO2 82.4 mm Hg (80.0-90.0)
[2020-02-17] MEDS: metroNIDAZOLE/NS 500 MG/100 ML 500 MG/100 ML BAG IV SCH ×3 (05:14→21:48)
--- NOTE | 2020-02-17 08:55 | Progress Note ---
Assessment and Plan Cultures: Blood culture 02/11/2020 no growth today Sputum culture 02/12/19 no growth today Sputum culture 02/13/19 usual resp sulaiman A/P: 74-year-old female past medical history hypertension, diabetes, mitral valve prolapse, hyperlipidemia admitted with acute sepsis and abdominal pain #Acute sepsis: resolved; likely due to ischemic bowel. #Peritonitis secondary to ischemia/gangrene of Small bowel and Cecum / ?SMA thr ombosis: s/p Exploratory laparotomy, extensive small bowel resection, partial colon resection, placement of abthera vac on 02/13/2020. S/p exploratory laparotomy, enterocolonic anastamosis, closure of abdomen, application of wound vac on 02/15 #Presumed infected renal cyst #Diabetes: Tight glycemic control for best outcomes #Diarrhea: resolved prior to presentation, doubt C diff, likely from ischemic bowel. #LITZY on CKD: Renally adjust antibiotics, worsening Recs: -Vascular on board -Stop levofloxacin -continue cefepime renally adjusted day 2 of 7 -Continue metronidazole day 2 of 7 Will follow. Jo-Ann Mccray MD Infectious Diseases [employer] [facility] ([facility]) M [phone] O [phone] Subjective Date of service: 02/17/20 Principal diagnosis: Ischemic Bowel Interval history: Remains intubated sedated no fever on cardizem gtt Objective - Exam Narrative Exam: Constitutional: sedated intubated Head, Ears, Nose: Normocephalic, atraumatic. Eyes: Conjunctivae/corneas clear. No icterus. No ptosis. Neck: Supple, no meningeal signs Oral: +ETT Cardiovascular: S1, S2 normal. Respiratory: Good air entry, clear to auscultation bilaterally GI: Soft, midline wound with VAC. Musculoskeletal: No pedal edema, no cyanosis. Skin: No rash or abscess Hem/Lymphatic: No palpable cervical or supraclavicular nodes. No lymphangitis Psych: no agitated Neurological: sedated PICC Acevedo - Constitutional Vitals: Vital Signs Temp Pulse Resp BP Pulse Ox 96.7 F L 117 H 15 155/68 96 02/17/20 08:00 02/17/20 08:30 02/17/20 08:30 02/17/20 08:30 02/17/20 08:30 Temperature -Last 24 Hours Temperature 96.7 F Temperature 97.4 F Temperature 98.3 F Temperature 97.3 F Temperature 97.5 F Temperature 98.1 F Temperature 98.1 F Temperature 97.5 F Temperature 98.1 F Temperature 97.5 F Temperature 97.1 F Temperature 97.1 F Temperature 98.5 F Temperature 97.8 F - Labs CBC & Chem 7: 02/17/20 03:45 02/17/20 03:45 Labs: Abnormal lab results 02/13/20 02/16/20 02/16/20 Range/Units 17:30 05:29 08:39 Hgb (10.1-14.3) gm/dl Hct (30.3-42.9) % ABG pH (7.350-7.450) pH Units ABG Base Excess (-2.0-3.0) mmol/L ABG Hemoglobin (12.0-16.0) gm/dl Oxyhemoglobin (95.0-99.0) % Carbon Dioxide (22-30) mmol/L BUN (7-17) mg/dL Creatinine (0.7-1.2) mg/dL Glucose (65-100) mg/dL POC Glucose (70-105) Calcium (8.4-10.2) mg/dL Triglycerides 716 H (2-149) mg/dL Crossmatch See Detail See Detail 02/16/20 02/16/20 02/17/20 Range/Units 12:27 19:04 00:02 Hgb (10.1-14.3) gm/dl Hct (30.3-42.9) % ABG pH (7.350-7.450) pH Units ABG Base Excess (-2.0-3.0) mmol/L ABG Hemoglobin (12.0-16.0) gm/dl Oxyhemoglobin (95.0-99.0) % Carbon Dioxide (22-30) mmol/L BUN (7-17) mg/dL Creatinine (0.7-1.2) mg/dL Glucose (65-100) mg/dL POC Glucose 314 H 203 H 202 H (70-105) Calcium (8.4-10.2) mg/dL Triglycerides (2-149) mg/dL Crossmatch 02/17/20 02/17/20 02/17/20 Range/Units 03:45 03:45 04:06 Hgb 9.9 L (10.1-14.3) gm/dl Hct 30.1 L D (30.3-42.9) % ABG pH 7.288 L (7.350-7.450) pH Units ABG Base Excess -4.9 L (-2.0-3.0) mmol/L ABG Hemoglobin 9.7 L (12.0-16.0) gm/dl Oxyhemoglobin 94.0 L (95.0-99.0) % Carbon Dioxide 21 L (22-30) mmol/L BUN 63 H (7-17) mg/dL Creatinine 5.2 H (0.7-1.2) mg/dL Glucose 134 H (65-100) mg/dL POC Glucose (70-105) Calcium 7.6 L (8.4-10.2) mg/dL Triglycerides (2-149) mg/dL Crossmatch 02/17/20 Range/Units 05:21 Hgb (10.1-14.3) gm/dl Hct (30.3-42.9) % ABG pH (7.350-7.450) pH Units ABG Base Excess (-2.0-3.0) mmol/L ABG Hemoglobin (12.0-16.0) gm/dl Oxyhemoglobin (95.0-99.0) % Carbon Dioxide (22-30) mmol/L BUN (7-17) mg/dL Creatinine (0.7-1.2) mg/dL Glucose (65-100) mg/dL POC Glucose 132 H (70-105) Calcium (8.4-10.2) mg/dL Triglycerides (2-149) mg/dL Crossmatch
--- NOTE | 2020-02-17 09:05 | Progress Note ---
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 Will hold off on diuretic at this time to allow for tubular recovery as able * Acidosis stable off HCO3 gtt; stopped given hypokalemia, hypocalcemia * Continue IVF and iv abx for volume depletion with UTI, appreciate ID recs * surgery note reviewed, s/p surgery, OR note reviewed * PRBC transfusion per primary, will continue normal saline for IVFs * Daily lytes; strict i/os * Avoid nephrotoxins * CT noted, no stones or hydronephrosis * vasopressors prn Thank for involving in the care of this critically ill patient. We will follow closely with you; please do not hesitate to call me on my cell at for any renal related issues. High risk for decompensation and needing renal replacement therapy. Subjective Date of service: 02/17/20 Principal diagnosis: Ischemic Bowel Interval history: S/p OR yesterday for ex-lap. Objective - Exam Narrative Exam: Gen: Intubated, sedated ENT: ETT in place CV: s1, S2, on dilt gtt Resp: on vent, PRVC with FiO2 45% Abd: soft Ext: no c/c/e : corcoran with clear yellow urine Neuro: sedated on fentanyl, propofol - Vital Signs Vital signs: Vital Signs - 12hr 02/16/20 02/16/20 02/16/20 21:30 22:00 22:31 Temperature Pulse Rate 87 107 H 86 Respiratory 16 16 16 Rate Blood Pressure 123/63 128/69 119/54 O2 Sat by Pulse 95 99 96 Oximetry 02/16/20 02/16/20 02/16/20 23:00 23:01 23:25 Temperature 98.3 F Pulse Rate 94 H 94 H Respiratory 16 Rate Blood Pressure 116/56 O2 Sat by Pulse 96 Oximetry 02/16/20 02/16/20 02/17/20 23:30 23:33 00:00 Temperature Pulse Rate 94 H 90 101 H Respiratory 16 16 15 Rate Blood Pressure 134/60 134/60 127/67 O2 Sat by Pulse 95 96 96 Oximetry 02/17/20 02/17/20 02/17/20 00:07 00:19 00:30 Temperature Pulse Rate 99 H 102 H Respiratory 15 16 Rate Blood Pressure 127/67 129/75 O2 Sat by Pulse 96 95 95 Oximetry 02/17/20 02/17/20 02/17/20 01:00 01:31 02:00 Temperature Pulse Rate 101 H 93 H 86 Respiratory 17 17 15 Rate Blood Pressure 122/74 119/50 109/52 O2 Sat by Pulse 95 96 97 Oximetry 02/17/20 02/17/20 02/17/20 02:30 03:00 03:05 Temperature 97.4 F L Pulse Rate 90 86 Respiratory 14 15 Rate Blood Pressure 117/51 113/49 O2 Sat by Pulse 95 96 Oximetry 02/17/20 02/17/20 02/17/20 03:20 03:30 03:57 Temperature Pulse Rate 86 92 H 89 Respiratory 15 16 Rate Blood Pressure 100/46 114/55 O2 Sat by Pulse 95 97 98 Oximetry 02/17/20 02/17/20 02/17/20 04:00 04:30 05:00 Temperature Pulse Rate 84 74 82 Respiratory 16 21 16 Rate Blood Pressure 116/53 124/49 133/57 O2 Sat by Pulse 97 96 97 Oximetry 02/17/20 02/17/20 02/17/20 05:30 06:01 06:30 Temperature Pulse Rate 99 H 96 H 105 H Respiratory 17 16 15 Rate Blood Pressure 123/59 98/39 133/55 O2 Sat by Pulse 96 97 96 Oximetry 02/17/20 02/17/20 02/17/20 07:00 07:31 07:47 Temperature Pulse Rate 107 H 112 H 116 H Respiratory 12 17 Rate Blood Pressure 113/42 165/63 152/74 O2 Sat by Pulse 99 93 97 Oximetry 02/17/20 02/17/20 08:00 08:30 Temperature 96.7 F L Pulse Rate 118 H 117 H Respiratory 16 15 Rate Blood Pressure 131/69 155/68 O2 Sat by Pulse 96 96 Oximetry - Lab 02/17/20 03:45 02/17/20 03:45 Most recent lab results ABG pH 7.288 pH Units (7.350-7.450) L 02/17/20 04:06 ABG pCO2 46.1 mm Hg 02/17/20 04:06 ABG pO2 82.4 mm Hg (80.0-90.0) 02/17/20 04:06 ABG HCO3 21.5 mmol/L (20.0-26.0) 02/17/20 04:06 ABG O2 Saturation 96.1 % (95.0-99.0) 02/17/20 04:06 Calcium 7.6 mg/dL (8.4-10.2) L 02/17/20 03:45 Urine Creatinine 35.3 mg/dL (0.1-20.0) H 02/12/20 Unknown Urine Total Protein 796 mg/dL (5-11.8) H 02/12/20 Unknown Medications & Allergies - Medications Allergies/Adverse Reactions: Allergies clindamycin Allergy (Verified 02/11/20 14:52) Hives Home Medications: Home Medications Medication Instructions Recorded Confirmed Last Taken Type Doxazosin [Cardura] 4 mg PO QDAY 02/11/20 02/11/20 02/10/20 History Hydralazine HCl 50 mg PO DAILY 02/11/20 02/11/20 02/10/20 History Metoprolol 25 mg PO DAILY 02/11/20 02/11/20 02/10/20 History Sertraline [Zoloft] 50 mg PO QDAY 02/11/20 02/11/20 02/10/20 History amLODIPine [Norvasc] 10 mg PO DAILY 02/11/20 02/11/20 02/10/20 History glipiZIDE 10 mg PO BID 02/11/20 02/11/20 02/10/20 History Active Medications: Generic Name Dose Route Start Last Admin Trade Name Freq PRN Reason Stop Dose Admin Acetaminophen 650 mg 02/11/20 19:01 02/12/20 17:00 Tylenol PO 650 mg Q4H PRN Administration Pain MILD(1-3)/Fever >100.5/ADAMS Famotidine 20 mg 02/17/20 10:00 Pepcid IV DAILY NADER Hydromorphone HCl 1 mg 02/14/20 13:00 02/15/20 03:22 Dilaudid IV 1 mg Q3H PRN Administration Pain , Severe (7-10) Hydrophilic Ointment 1 applic 02/13/20 19:41 Vaseline Lip Therapy TP Q2HR PRN Dry Lips Metronidazole 500 mg in 100 mls @ 100 mls/hr 02/12/20 15:40 02/17/20 05:14 Flagyl 500 Mg/100 Ml IV 100 mls/hr Q8HR NADER Administration Fentanyl Citrate 2,000 mcg in 100 mls @ 3.4 mls/hr 02/13/20 20:00 02/17/20 00:19 Fentanyl Drip Premix IV 2 mcg/kg/hr TITR NADER 6.8 mls/hr Administration Protocol 1 MCG/KG/HR Propofol 1,000 mg in 100 mls @ 2.04 mls/hr 02/13/20 20:00 02/17/20 07:36 Diprivan 10 Mg/Ml IV 20 mcg/kg/min TITR NADER 8.16 mls/hr Titration Protocol 5 MCG/KG/MIN Heparin Sodium/Sodium Chloride 25,000 unit in 500 mls @ 20 mls/hr 02/13/20 20:00 02/15/20 10:40 Heparin/ 0.45% Nacl-25,000 Unit/500 Ml IV 0 units/hr TITR NADER 0 mls/hr Titration Protocol 1,000 UNITS/HR Cefepime HCl 1 gm in 100 mls @ 200 mls/hr 02/16/20 10:00 02/16/20 12:10 Cefepime/Ns 1 Gm/100 Ml IV 200 mls/hr Q24HR NADER Administration Protocol Sodium Chloride 1,000 mls @ 150 mls/hr 02/16/20 10:00 02/17/20 03:47 Nacl 0.9% 1000 Ml IV 150 mls/hr DIRECT NADER Administration Diltiazem HCl 100 mg in 100 mls @ 2.5 mls/hr 02/16/20 12:19 02/16/20 21:57 Cardizem/D5w 100mg/100ml IV 2.5 mg/hr TITR NADER 2.5 mls/hr Administration 2.5 MG/HR Insulin Human Lispro 0 unit 02/13/20 12:00 02/17/20 05:18 Humalog SUB-Q Not Given Q6HR [facility] Protocol Labetalol HCl 20 mg 02/13/20 18:00 Labetalol IV Q4H PRN SBP >150 Metoprolol Tartrate 2.5 mg 02/13/20 18:00 02/14/20 10:46 Metoprolol IV 2.5 mg Q6HR PRN Administration HR >130 Multi-Ingred Cream/Lotion/Oil/Oint 1 applic 02/13/20 19:41 Artificial Tears Ophth Oint OU Q4HR PRN Dry Eye(s) Ondansetron HCl 4 mg 02/11/20 19:01 02/12/20 05:44 Zofran IV 4 mg Q8H PRN Administration Nausea And Vomiting Sodium Chloride 10 ml 02/11/20 22:00 02/16/20 21:52 Sodium Chloride Flush Syringe 10 Ml IV 10 ml BID NADER Administration Sodium Chloride 10 ml 02/11/20 19:01 02/15/20 22:43 Sodium Chloride Flush Syringe 10 Ml IV 10 ml PRN PRN Administration LINE FLUSH Sodium Chloride 5 ml 02/13/20 19:41 Nacl 0.9% 500 Ml IV DIRECT PRN [employer]ERIAL [employer]ODETIC ADVISOR
[2020-02-17] MEDS: FAMOTIDINE 20 MG/2 ML INJ IV SCH (09:37)
[2020-02-17] MEDS: CEFEPIME/NS 1 GM/100 ML 1 GM/100 ML BAG IV SCH (09:37)
--- NOTE | 2020-02-17 09:56 | Progress Note ---
Assessment and Plan 74 y/o female with abdominal pain, hypotension, now hypertensive with tachycardia and pain, worrisome for SBO and inflammation in colon from diverticula with worsening renal function. 02/17/2020: Start to wean sedation today with hopes of extubation. Pain control. IVF's per renal. Follow up any surgery recs. ID seen this am, reviewed their note and plan to treat for 7 days of abx, currently on day 2. 02/16/2020: Picc line placed yesterday. Going to OR today, plan around 1330. If able to close, could consider starting to wean as early as tomorrow but will touch base with surgery first. Patient HR in the 50's on drip so cards decreased. Discussed on rounds, but I asked nursing if any further issues to just stop the drip. Prognosis remains guarded. Trigylcerides not checked so will order stat. 02/15/2020: No new recs for today. Happy with current clinical state in regards to sedation, ventilation and oxygenation. Appreciate surgery and nephro help. follow up any new recs from them. Agree with picc line, will get tomorrow as I believe they (picc team) are not available on Sunday. Will check triglyceride level in the am. 1. Continue deep sedation and pain control. No plans on weaning or extubation until abdominal issues are done. 2. Continue corcoran 3. Follow up surgery recs. Greatly appreciate them and their help. Plan for return to OR on Sunday. 4. IV abx, ID following. 5. Cardiology has elected for dilt drip. Suggest titrating. Gave nurse parameters. 6. Follow up renal rec Guarded prognosis. CCT 31 minutes. Subjective Date of service: 02/17/20 Principal diagnosis: Ischemic Bowel Interval history: Successful closure of abdomen by surgery. No acute events overnight. Afebrile. BP stable. Repeat Tri's were in a good range. Objective Vital Signs - 12hr 02/16/20 02/16/20 02/16/20 22:00 22:31 23:00 Temperature Pulse Rate 107 H 86 94 H Respiratory 16 16 Rate Blood Pressure 128/69 119/54 O2 Sat by Pulse 99 96 Oximetry 02/16/20 02/16/20 02/16/20 23:01 23:25 23:30 Temperature 98.3 F Pulse Rate 94 H 94 H Respiratory 16 16 Rate Blood Pressure 116/56 134/60 O2 Sat by Pulse 96 95 Oximetry 02/16/20 02/17/20 02/17/20 23:33 00:00 00:07 Temperature Pulse Rate 90 101 H 99 H Respiratory 16 15 Rate Blood Pressure 134/60 127/67 127/67 O2 Sat by Pulse 96 96 96 Oximetry 02/17/20 02/17/20 02/17/20 00:19 00:30 01:00 Temperature Pulse Rate 102 H 101 H Respiratory 15 16 17 Rate Blood Pressure 129/75 122/74 O2 Sat by Pulse 95 95 95 Oximetry 02/17/20 02/17/20 02/17/20 01:31 02:00 02:30 Temperature Pulse Rate 93 H 86 90 Respiratory 17 15 14 Rate Blood Pressure 119/50 109/52 117/51 O2 Sat by Pulse 96 97 95 Oximetry 02/17/20 02/17/20 02/17/20 03:00 03:05 03:20 Temperature 97.4 F L Pulse Rate 86 86 Respiratory 15 15 Rate Blood Pressure 113/49 O2 Sat by Pulse 96 95 Oximetry 02/17/20 02/17/20 02/17/20 03:30 03:57 04:00 Temperature Pulse Rate 92 H 89 84 Respiratory 16 16 Rate Blood Pressure 100/46 114/55 116/53 O2 Sat by Pulse 97 98 97 Oximetry 02/17/20 02/17/20 02/17/20 04:30 05:00 05:30 Temperature Pulse Rate 74 82 99 H Respiratory 21 16 17 Rate Blood Pressure 124/49 133/57 123/59 O2 Sat by Pulse 96 97 96 Oximetry 02/17/20 02/17/20 02/17/20 06:01 06:30 07:00 Temperature Pulse Rate 96 H 105 H 107 H Respiratory 16 15 12 Rate Blood Pressure 98/39 133/55 113/42 O2 Sat by Pulse 97 96 99 Oximetry 02/17/20 02/17/20 02/17/20 07:31 07:47 08:00 Temperature 96.7 F L Pulse Rate 112 H 116 H 118 H Respiratory 17 16 Rate Blood Pressure 165/63 152/74 131/69 O2 Sat by Pulse 93 97 96 Oximetry 02/17/20 02/17/20 08:30 09:00 Temperature Pulse Rate 117 H 117 H Respiratory 15 18 Rate Blood Pressure 155/68 127/61 O2 Sat by Pulse 96 97 Oximetry CBC and BMP: 02/17/20 03:45 02/17/20 03:45 ABG, PT/INR, D-dimer: ABG ABG pH 7.288 pH Units (7.350-7.450) L 02/17/20 04:06 ABG pCO2 46.1 mm Hg 02/17/20 04:06 ABG pO2 82.4 mm Hg (80.0-90.0) 02/17/20 04:06 ABG O2 Saturation 96.1 % (95.0-99.0) 02/17/20 04:06 PT/INR, D-dimer PT 16.9 Sec. (12.2-14.9) H 02/13/20 20:10 INR 1.41 (0.87-1.13) H 02/13/20 20:10 Abnormal lab findings: Abnormal Labs 02/11/20 02/11/20 02/11/20 15:27 15:27 15:27 WBC 22.5 H RBC Hgb Hct MCHC RDW Plt Count Seg Neuts % (Manual) 90.0 H Lymphocytes % (Manual) 4.0 L Seg Neutrophils # Man 20.3 H Lymphocytes # (Manual) 0.9 L Monocytes # (Manual) 1.1 H PT INR APTT 23.3 L ABG pH ABG pO2 ABG HCO3 ABG Base Excess ABG Hemoglobin Oxyhemoglobin Sodium 132 L Potassium Chloride 96.0 L Carbon Dioxide 16 L BUN 59 H Creatinine 3.0 H Glucose 487 H POC Glucose Calcium Alkaline Phosphatase 142 H Albumin Triglycerides Lipase 86 H Urine Creatinine Urine Total Protein Crossmatch 02/12/20 02/12/20 02/12/20 04:58 04:58 Unknown WBC 30.0 H RBC Hgb Hct MCHC RDW Plt Count Seg Neuts % (Manual) 96.0 H Lymphocytes % (Manual) 1.0 L Seg Neutrophils # Man 28.8 H Lymphocytes # (Manual) 0.3 L Monocytes # (Manual) 0.9 H PT INR APTT ABG pH ABG pO2 ABG HCO3 ABG Base Excess ABG Hemoglobin Oxyhemoglobin Sodium Potassium Chloride Carbon Dioxide 15 L BUN 59 H Creatinine 3.0 H Glucose 477 H POC Glucose Calcium Alkaline Phosphatase Albumin 3.5 L Triglycerides Lipase Urine Creatinine 35.3 H Urine Total Protein 796 H Crossmatch 02/13/20 02/13/20 02/13/20 05:43 05:43 13:24 WBC 38.2 H RBC Hgb Hct 43.6 H MCHC RDW Plt Count Seg Neuts % (Manual) 91.0 H Lymphocytes % (Manual) 4.0 L Seg Neutrophils # Man 34.8 H Lymphocytes # (Manual) Monocytes # (Manual) 1.1 H PT INR APTT ABG pH ABG pO2 ABG HCO3 ABG Base Excess ABG Hemoglobin Oxyhemoglobin Sodium 136 L Potassium Chloride Carbon Dioxide 11 L BUN 71 H Creatinine 4.0 H Glucose 343 H POC Glucose 337 H Calcium Alkaline Phosphatase Albumin Triglycerides Lipase Urine Creatinine Urine Total Protein Crossmatch 02/13/20 02/13/20 02/13/20 16:49 16:50 17:30 WBC RBC Hgb Hct MCHC RDW Plt Count Seg Neuts % (Manual) Lymphocytes % (Manual) Seg Neutrophils # Man Lymphocytes # (Manual) Monocytes # (Manual) PT INR APTT ABG pH 7.226 L ABG pO2 77.9 L ABG HCO3 16.4 L ABG Base Excess -10.5 L ABG Hemoglobin 11.7 L Oxyhemoglobin 92.8 L Sodium Potassium Chloride Carbon Dioxide BUN Creatinine Glucose POC Glucose 272 H Calcium Alkaline Phosphatase Albumin Triglycerides Lipase Urine Creatinine Urine Total Protein Crossmatch See Detail 02/13/20 02/13/20 02/14/20 20:10 22:08 00:22 WBC RBC Hgb Hct MCHC RDW Plt Count Seg Neuts % (Manual) Lymphocytes % (Manual) Seg Neutrophils # Man Lymphocytes # (Manual) Monocytes # (Manual) PT 16.9 H INR 1.41 H APTT ABG pH 7.158 L* ABG pO2 ABG HCO3 18.6 L ABG Base Excess -10.2 L ABG Hemoglobin 11.9 L Oxyhemoglobin 93.1 L Sodium Potassium Chloride Carbon Dioxide BUN Creatinine Glucose POC Glucose 199 H Calcium Alkaline Phosphatase Albumin Triglycerides Lipase Urine Creatinine Urine Total Protein Crossmatch 02/14/20 02/14/20 02/14/20 03:45 04:29 04:29 WBC 14.4 H RBC Hgb Hct MCHC RDW 15.3 H Plt Count Seg Neuts % (Manual) 88.0 H Lymphocytes % (Manual) 6.0 L Seg Neutrophils # Man 12.7 H Lymphocytes # (Manual) 0.9 L Monocytes # (Manual) PT INR APTT ABG pH 7.193 L* ABG pO2 ABG HCO3 16.4 L ABG Base Excess -11.2 L ABG Hemoglobin 10.2 L Oxyhemoglobin 94.3 L Sodium Potassium Chloride 108.5 H Carbon Dioxide 16 L BUN 73 H Creatinine 4.3 H Glucose 167 H POC Glucose Calcium 8.0 L Alkaline Phosphatase Albumin Triglycerides Lipase Urine Creatinine Urine Total Protein Crossmatch 02/14/20 02/14/20 02/14/20 05:26 12:11 18:34 WBC RBC Hgb Hct MCHC RDW Plt Count Seg Neuts % (Manual) Lymphocytes % (Manual) Seg Neutrophils # Man Lymphocytes # (Manual) Monocytes # (Manual) PT INR APTT ABG pH ABG pO2 ABG HCO3 ABG Base Excess ABG Hemoglobin Oxyhemoglobin Sodium Potassium Chloride Carbon Dioxide BUN Creatinine Glucose POC Glucose 177 H 160 H 135 H Calcium Alkaline Phosphatase Albumin Triglycerides Lipase Urine Creatinine Urine Total Protein Crossmatch 02/14/20 02/15/20 02/15/20 23:18 03:19 04:28 WBC RBC Hgb Hct MCHC RDW Plt Count Seg Neuts % (Manual) Lymphocytes % (Manual) Seg Neutrophils # Man Lymphocytes # (Manual) Monocytes # (Manual) PT INR APTT ABG pH 7.246 L ABG pO2 ABG HCO3 13.7 L ABG Base Excess -12.5 L ABG Hemoglobin 8.4 L Oxyhemoglobin 94.6 L Sodium Potassium Chloride Carbon Dioxide 12 L BUN 72 H Creatinine 4.7 H Glucose 147 H POC Glucose 138 H Calcium 7.9 L Alkaline Phosphatase Albumin Triglycerides Lipase Urine Creatinine Urine Total Protein Crossmatch 02/15/20 02/15/20 02/15/20 04:28 05:35 12:07 WBC RBC 2.88 L Hgb 8.6 L Hct 25.4 L D MCHC RDW 15.6 H Plt Count Seg Neuts % (Manual) Lymphocytes % (Manual) Seg Neutrophils # Man Lymphocytes # (Manual) Monocytes # (Manual) PT INR APTT ABG pH ABG pO2 ABG HCO3 ABG Base Excess ABG Hemoglobin Oxyhemoglobin Sodium Potassium Chloride Carbon Dioxide BUN Creatinine Glucose POC Glucose 181 H 136 H Calcium Alkaline Phosphatase Albumin Triglycerides Lipase Urine Creatinine Urine Total Protein Crossmatch 02/15/20 02/15/20 02/16/20 17:50 23:18 04:20 WBC RBC Hgb Hct MCHC RDW Plt Count Seg Neuts % (Manual) Lymphocytes % (Manual) Seg Neutrophils # Man Lymphocytes # (Manual) Monocytes # (Manual) PT INR APTT ABG pH ABG pO2 77.4 L ABG HCO3 ABG Base Excess -4.7 L ABG Hemoglobin 5.0 L Oxyhemoglobin Sodium Potassium Chloride Carbon Dioxide BUN Creatinine Glucose POC Glucose 177 H 284 H Calcium Alkaline Phosphatase Albumin Triglycerides Lipase Urine Creatinine Urine Total Protein Crossmatch 02/16/20 02/16/20 02/16/20 05:24 05:29 05:29 WBC RBC 2.31 L Hgb 7.2 L Hct 20.2 L MCHC 36 H RDW 15.3 H Plt Count 115 L Seg Neuts % (Manual) Lymphocytes % (Manual) Seg Neutrophils # Man Lymphocytes # (Manual) Monocytes # (Manual) PT INR APTT ABG pH ABG pO2 ABG HCO3 ABG Base Excess ABG Hemoglobin Oxyhemoglobin Sodium 135 L Potassium 3.0 L D Chloride 90.7 L Carbon Dioxide BUN 64 H Creatinine 4.7 H Glucose 491 H POC Glucose 282 H Calcium 7.2 L Alkaline Phosphatase Albumin Triglycerides Lipase Urine Creatinine Urine Total Protein Crossmatch 02/16/20 02/16/20 02/16/20 05:29 08:39 12:27 WBC RBC Hgb Hct MCHC RDW Plt Count Seg Neuts % (Manual) Lymphocytes % (Manual) Seg Neutrophils # Man Lymphocytes # (Manual) Monocytes # (Manual) PT INR APTT ABG pH ABG pO2 ABG HCO3 ABG Base Excess ABG Hemoglobin Oxyhemoglobin Sodium Potassium Chloride Carbon Dioxide BUN Creatinine Glucose POC Glucose 314 H Calcium Alkaline Phosphatase Albumin Triglycerides 716 H Lipase Urine Creatinine Urine Total Protein Crossmatch See Detail 02/16/20 02/17/20 02/17/20 19:04 00:02 03:45 WBC RBC Hgb Hct MCHC RDW Plt Count Seg Neuts % (Manual) Lymphocytes % (Manual) Seg Neutrophils # Man Lymphocytes # (Manual) Monocytes # (Manual) PT INR APTT ABG pH ABG pO2 ABG HCO3 ABG Base Excess ABG Hemoglobin Oxyhemoglobin Sodium Potassium Chloride Carbon Dioxide 21 L BUN 63 H Creatinine 5.2 H Glucose 134 H POC Glucose 203 H 202 H Calcium 7.6 L Alkaline Phosphatase Albumin Triglycerides Lipase Urine Creatinine Urine Total Protein Crossmatch 02/17/20 02/17/20 02/17/20 03:45 03:45 04:06 WBC RBC Hgb 9.9 L Hct 30.1 L D MCHC RDW Plt Count Seg Neuts % (Manual) Lymphocytes % (Manual) Seg Neutrophils # Man Lymphocytes # (Manual) Monocytes # (Manual) PT INR APTT ABG pH 7.288 L ABG pO2 ABG HCO3 ABG Base Excess -4.9 L ABG Hemoglobin 9.7 L Oxyhemoglobin 94.0 L Sodium Potassium Chloride Carbon Dioxide BUN Creatinine Glucose POC Glucose Calcium Alkaline Phosphatase Albumin Triglycerides 238 H Lipase Urine Creatinine Urine Total Protein Crossmatch 02/17/20 05:21 WBC RBC Hgb Hct MCHC RDW Plt Count Seg Neuts % (Manual) Lymphocytes % (Manual) Seg Neutrophils # Man Lymphocytes # (Manual) Monocytes # (Manual) PT INR APTT ABG pH ABG pO2 ABG HCO3 ABG Base Excess ABG Hemoglobin Oxyhemoglobin Sodium Potassium Chloride Carbon Dioxide BUN Creatinine Glucose POC Glucose 132 H Calcium Alkaline Phosphatase Albumin Triglycerides Lipase Urine Creatinine Urine Total Protein Crossmatch
--- NOTE | 2020-02-17 11:52 | Progress Note ---
Assessment and Plan - Patient Problems (1) Atrial fibrillation Current Visit: Yes Status: Acute Plan to address problem: Atrial fibrillation paroxysmal, patient reverted to sinus rhythm on low dose IV Cardizem. Echocardiogram showed normal left ventricular systolic function with ejection fraction 60 to 65%. Obtain a 12 lead ECG. We will continue intravenous diltiazem for paroxysmal atrial fibrillation. Subjective Date of service: 02/17/20 Principal diagnosis: Ischemic Bowel Interval history: Remains intubated on the vent. Patient has reverted to sinus rhythm. Mild sinus tachycardia seen on telemetry. IV Diltiazem continues. Objective Vital Signs Temp Pulse Resp BP Pulse Ox 02/17/20 11:23 108 H 144/66 92 02/17/20 11:00 107 H 16 139/58 92 02/17/20 10:30 128 H 17 149/63 90 02/17/20 10:00 116 H 17 151/66 92 02/17/20 09:30 117 H 16 138/63 02/17/20 09:00 117 H 18 127/61 97 02/17/20 08:30 117 H 15 155/68 96 02/17/20 08:00 96.7 F L 118 H 16 131/69 96 02/17/20 07:47 116 H 152/74 97 02/17/20 07:31 112 H 17 165/63 93 02/17/20 07:00 107 H 12 113/42 99 02/17/20 06:30 105 H 15 133/55 96 02/17/20 06:01 96 H 16 98/39 97 02/17/20 05:30 99 H 17 123/59 96 02/17/20 05:00 82 16 133/57 97 02/17/20 04:30 74 21 124/49 96 02/17/20 04:00 84 16 116/53 97 02/17/20 03:57 89 114/55 98 02/17/20 03:30 92 H 16 100/46 97 02/17/20 03:20 86 15 95 02/17/20 03:05 97.4 F L 02/17/20 03:00 86 15 113/49 96 02/17/20 02:30 90 14 117/51 95 02/17/20 02:00 86 15 109/52 97 02/17/20 01:31 93 H 17 119/50 96 02/17/20 01:00 101 H 17 122/74 95 02/17/20 00:30 102 H 16 129/75 95 02/17/20 00:19 15 95 02/17/20 00:07 99 H 127/67 96 02/17/20 00:00 101 H 15 127/67 96 02/16/20 23:33 90 16 134/60 96 02/16/20 23:30 94 H 16 134/60 95 02/16/20 23:25 98.3 F 02/16/20 23:01 94 H 16 116/56 96 02/16/20 23:00 94 H 02/16/20 22:31 86 16 119/54 96 02/16/20 22:00 107 H 16 128/69 99 02/16/20 21:30 87 16 123/63 95 02/16/20 21:01 95 H 16 116/66 94 02/16/20 20:30 103 H 17 156/66 94 02/16/20 20:10 134 H 164/82 96 02/16/20 20:00 104 H 16 164/82 95 02/16/20 19:45 15 98 02/16/20 19:30 97.3 F L 112 H 16 134/72 96 02/16/20 19:20 109 H 15 98 02/16/20 19:00 116 H 16 130/61 96 02/16/20 18:30 104 H 16 110/64 02/16/20 18:00 107 H 16 141/64 97 02/16/20 17:58 100 H 141/64 98 02/16/20 17:52 93 H 159/67 02/16/20 17:50 101 H 16 159/67 98 02/16/20 17:45 95 H 16 159/69 98 02/16/20 17:40 95 H 16 159/67 96 02/16/20 17:31 97.5 F L 111 H 14 166/85 96 02/16/20 17:26 136/65 02/16/20 15:52 71 17 02/16/20 15:00 86 16 134/75 94 02/16/20 14:31 86 16 149/67 96 02/16/20 14:23 98.1 F 92 H 15 121/67 95 02/16/20 14:00 81 16 120/69 96 02/16/20 13:53 98.1 F 83 15 121/67 136 H 02/16/20 13:40 85 137/63 02/16/20 13:30 83 15 137/63 96 02/16/20 13:23 97.5 F L 74 16 137/63 96 02/16/20 13:00 79 13 130/66 96 02/16/20 12:53 98.1 F 88 14 126/64 96 02/16/20 12:31 87 14 152/55 96 02/16/20 12:23 97.5 F L 91 H 14 149/50 96 02/16/20 12:09 88 161/66 02/16/20 12:01 76 16 146/44 97 02/16/20 12:00 97.1 F L 93 H 15 98 02/16/20 11:53 97.1 F L 85 15 161/66 97 - Physical Examination General: Other (intubated, on the vent) Cardiac: Positive: Tachycardia - Labs and Meds Lipids 02/16/20 02/17/20 Range/Units 05:29 03:45 Triglycerides 716 H 238 H (2-149) mg/dL CBC 02/17/20 Range/Units 03:45 Hgb 9.9 L (10.1-14.3) gm/dl Hct 30.1 L D (30.3-42.9) % Plt Count 141 (140-440) K/mm3 Comprehensive Metabolic Panel 02/17/20 Range/Units 03:45 Sodium 139 (137-145) mmol/L Potassium 3.6 (3.6-5.0) mmol/L Chloride 101.8 (98-107) mmol/L Carbon Dioxide 21 L (22-30) mmol/L BUN 63 H (7-17) mg/dL Creatinine 5.2 H (0.7-1.2) mg/dL Glucose 134 H (65-100) mg/dL Calcium 7.6 L (8.4-10.2) mg/dL
--- NOTE | 2020-02-17 12:31 | Progress Note ---
Assessment and Plan 74-year-old female status post 1. Exploratory laparotomy, enterocolonic anastamosis, closure of abdomen, application of wound vac, POD 1 2. Exploratory laparotomy, extensive small bowel resection, partial colon resection, placement of abthera vac, placement of right radial arterial line, 02/13/20 1. bowel ischemia with gangrene 2. sepsis 3. LITZY 4. Afib with RVR 5. Tobacco dependence Pt currently hemodynamically stable. Plan: 1. neuro -wean sedation as tolerated. Continue as needed pain control 2. CV - cardiology on board for Afib. Hemoglobin responded appropriately after 1 unit PRBC transfusion yesterday. Okay to restart heparin drip on low-dose protocol. ALBINA Mane. Vascular surgery on board 3. Resp - vent management per ICU team, possible extubation today 4. GI - Strict NPO, NGT to LIWS, continue incisional wound VAC, lunchroom attendant consult. IVF per nephro. GI ppx - protonix IV 5. - continue corcoran catheter for strict I/Os. Nephrology on board. Monitor hair weaver 6. ID - continue abx per ID 7. Endo - strict glucose control 8. Musc - turning q2 as per protocol, skin breakdown precautions, SCDs 9. FEN - NPO, IVF, replace lytes as needed. Patient has PICC line, dietitian consulted for TPN. Resumption of p.o. diet pending patient's clinical progress. Mechanical Maintenance notes reviewed and recs appreciated Thank you, please call with questions. Subjective Date of service: 02/17/20 Narrative: Patient seen and examined. She is being weaned off of sedation. No fevers, chills. No acute overnight events. Objective Vital Signs - 12hr 02/17/20 02/17/20 02/17/20 01:00 01:31 02:00 Temperature Pulse Rate 101 H 93 H 86 Respiratory 17 17 15 Rate Blood Pressure 122/74 119/50 109/52 O2 Sat by Pulse 95 96 97 Oximetry 02/17/20 02/17/20 02/17/20 02:30 03:00 03:05 Temperature 97.4 F L Pulse Rate 90 86 Respiratory 14 15 Rate Blood Pressure 117/51 113/49 O2 Sat by Pulse 95 96 Oximetry 02/17/20 02/17/20 02/17/20 03:20 03:30 03:57 Temperature Pulse Rate 86 92 H 89 Respiratory 15 16 Rate Blood Pressure 100/46 114/55 O2 Sat by Pulse 95 97 98 Oximetry 02/17/20 02/17/20 02/17/20 04:00 04:30 05:00 Temperature Pulse Rate 84 74 82 Respiratory 16 21 16 Rate Blood Pressure 116/53 124/49 133/57 O2 Sat by Pulse 97 96 97 Oximetry 02/17/20 02/17/20 02/17/20 05:30 06:01 06:30 Temperature Pulse Rate 99 H 96 H 105 H Respiratory 17 16 15 Rate Blood Pressure 123/59 98/39 133/55 O2 Sat by Pulse 96 97 96 Oximetry 02/17/20 02/17/20 02/17/20 07:00 07:31 07:47 Temperature Pulse Rate 107 H 112 H 116 H Respiratory 12 17 Rate Blood Pressure 113/42 165/63 152/74 O2 Sat by Pulse 99 93 97 Oximetry 02/17/20 02/17/20 02/17/20 08:00 08:30 09:00 Temperature 96.7 F L Pulse Rate 118 H 117 H 117 H Respiratory 16 15 18 Rate Blood Pressure 131/69 155/68 127/61 O2 Sat by Pulse 96 96 97 Oximetry 02/17/20 02/17/20 02/17/20 09:30 10:00 10:30 Temperature Pulse Rate 117 H 116 H 128 H Respiratory 16 17 17 Rate Blood Pressure 138/63 151/66 149/63 O2 Sat by Pulse 92 90 Oximetry 02/17/20 02/17/20 02/17/20 11:00 11:23 12:00 Temperature 97.8 F Pulse Rate 107 H 108 H Respiratory 16 Rate Blood Pressure 139/58 144/66 O2 Sat by Pulse 92 92 Oximetry - General physical appearance Narrative Exam: Gen: Intubated, opens eyes to verbal command. NAD ENT: ETT in place. NGT with dark bilious output CV: s1, S2+ Afib with elevated rate Resp: on vent. No audible wheezes Abd: soft, NT, ND. Incisional wound VAC in place with a good seal, no leak. There is no drainage in the canister Ext: no c/c/e : corcoran with clear yellow urine I/Os: Corcoran - 500cc/24h NGT - not recorded - Labs 02/17/20 03:45 02/17/20 03:45 Diabetes panel 02/16/20 02/17/20 02/17/20 Range/Units 05:29 03:45 03:45 Sodium 139 (137-145) mmol/L Potassium 3.6 (3.6-5.0) mmol/L Chloride 101.8 (98-107) mmol/L Carbon Dioxide 21 L (22-30) mmol/L BUN 63 H (7-17) mg/dL Creatinine 5.2 H (0.7-1.2) mg/dL Glucose 134 H (65-100) mg/dL Calcium 7.6 L (8.4-10.2) mg/dL Triglycerides 716 H 238 H (2-149) mg/dL Calcium panel 02/17/20 Range/Units 03:45 Calcium 7.6 L (8.4-10.2) mg/dL Pituitary panel 02/17/20 Range/Units 03:45 Sodium 139 (137-145) mmol/L Potassium 3.6 (3.6-5.0) mmol/L Chloride 101.8 (98-107) mmol/L Carbon Dioxide 21 L (22-30) mmol/L BUN 63 H (7-17) mg/dL Creatinine 5.2 H (0.7-1.2) mg/dL Glucose 134 H (65-100) mg/dL Calcium 7.6 L (8.4-10.2) mg/dL Adrenal panel 02/17/20 Range/Units 03:45 Sodium 139 (137-145) mmol/L Potassium 3.6 (3.6-5.0) mmol/L Chloride 101.8 (98-107) mmol/L Carbon Dioxide 21 L (22-30) mmol/L BUN 63 H (7-17) mg/dL Creatinine 5.2 H (0.7-1.2) mg/dL Glucose 134 H (65-100) mg/dL Calcium 7.6 L (8.4-10.2) mg/dL
[2020-02-17] MEDS: HEPARIN/ 0.45% NACL DRIP 25,000 UNIT/500 ML BAG IV SCH (13:16)
--- NOTE | 2020-02-17 16:25 | Progress Note ---
Assessment and Plan Assessment and plan: Sepsis. Etiology due to ischemic bowel. Acute hypoxic resp failure. Pulm following. 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 Pt. is s/p Exploratory laparotomy, extensive small bowel resection, partial colon resection, placement of abthera vac on 02/13/2020. S/p exploratory laparotomy, enterocolonic anastamosis, closure of abdomen, application of wound vac on 02/15 Presumed infected renal cyst. ID following Diabetes Mellitus type 2. Tight glycemic control, accucheks and ssri Diarrhea- resolved prior to presentation, doubt C diff, likely from ischemic bowel. LITZY on CKD: Renally adjust antibiotics, worsening History Interval history: No new issues Hospitalist Physical - Constitutional Vitals: Temp Pulse Resp BP Pulse Ox 97.8 F 98 H 16 160/77 91 02/17/20 12:00 02/17/20 16:00 02/17/20 16:00 02/17/20 16:00 02/17/20 16:00 General appearance: Present: other (Intubated) - EENT Eyes: Present: PERRL, EOM intact ENT: hearing intact, clear oral mucosa, dentition normal - Neck Neck: Present: supple, normal ROM - Respiratory Respiratory effort: normal Respiratory: bilateral: CTA - Cardiovascular Rhythm: regular Heart Sounds: Present: S1 & S2. Absent: gallop, rub - Extremities Extremities: no ischemia, No edema, Full ROM - Abdominal General gastrointestinal: soft, non-tender, non-distended, normal bowel sounds - Integumentary Integumentary: Present: clear, warm, dry - Neurologic Neurologic: CNII-XII intact, moves all extremities HEART Score - HEART Score Troponin: Troponin T < 0.010 ng/mL (0.00-0.029) 02/11/20 15:27 Results - Labs CBC & Chem 7: 02/17/20 03:45 02/17/20 03:45 Labs: Laboratory Last Values WBC 7.1 K/mm3 (4.5-11.0) 02/16/20 05:29 RBC 2.31 M/mm3 (3.65-5.03) L 02/16/20 05:29 Hgb 9.9 gm/dl (10.1-14.3) L 02/17/20 03:45 Hct 30.1 % (30.3-42.9) L D 02/17/20 03:45 MCV 88 fl (79-97) 02/16/20 05:29 MCH 31 pg (28-32) 02/16/20 05:29 MCHC 36 % (30-34) H 02/16/20 05:29 RDW 15.3 % (13.2-15.2) H 02/16/20 05:29 Plt Count 141 K/mm3 (140-440) 02/17/20 03:45 Add Manual Diff Complete 02/14/20 04:29 Total Counted 100 02/14/20 04:29 Seg Neutrophils % Pci Security Consultant 02/14/20 04:29 Seg Neuts % (Manual) 88.0 % (40.0-70.0) H 02/14/20 04:29 Band Neutrophils % 1.0 % 02/14/20 04:29 Lymphocytes % (Manual) 6.0 % (13.4-35.0) L 02/14/20 04:29 Reactive Lymphs % (Man) 0 % 02/14/20 04:29 Monocytes % (Manual) 4.0 % (0.0-7.3) 02/14/20 04:29 Eosinophils % (Manual) 1.0 % (0.0-4.3) 02/14/20 04:29 Basophils % (Manual) 0 % (0.0-1.8) 02/14/20 04:29 Metamyelocytes % 0 % 02/14/20 04:29 Myelocytes % 0 % 02/14/20 04:29 Promyelocytes % 0 % 02/14/20 04:29 Blast Cells % 0 % 02/14/20 04:29 Nucleated RBC % Not Reportable 02/14/20 04:29 Seg Neutrophils # Man 12.7 K/mm3 (1.8-7.7) H 02/14/20 04:29 Band Neutrophils # 0.1 K/mm3 02/14/20 04:29 Lymphocytes # (Manual) 0.9 K/mm3 (1.2-5.4) L 02/14/20 04:29 Abs React Lymphs (Man) 0.0 K/mm3 02/14/20 04:29 Monocytes # (Manual) 0.6 K/mm3 (0.0-0.8) 02/14/20 04:29 Eosinophils # (Manual) 0.1 K/mm3 (0.0-0.4) 02/14/20 04:29 Basophils # (Manual) 0.0 K/mm3 (0.0-0.1) 02/14/20 04:29 Metamyelocytes # 0.0 K/mm3 02/14/20 04:29 Myelocytes # 0.0 K/mm3 02/14/20 04:29 Promyelocytes # 0.0 K/mm3 02/14/20 04:29 Blast Cells # 0.0 K/mm3 02/14/20 04:29 WBC Morphology Not Reportable 02/14/20 04:29 Hypersegmented Neuts Not Reportable 02/14/20 04:29 Hyposegmented Neuts Not Reportable 02/14/20 04:29 Hypogranular Neuts Not Reportable 02/14/20 04:29 Smudge Cells Not Reportable 02/14/20 04:29 Toxic Granulation Not Reportable 02/14/20 04:29 Toxic Vacuolation Not Reportable 02/14/20 04:29 Dohle Bodies Not Reportable 02/14/20 04:29 Pelger-Huet Anomaly Not Reportable 02/14/20 04:29 Jyoti Rods Not Reportable 02/14/20 04:29 Platelet Estimate Consistent w auto 02/14/20 04:29 Clumped Platelets Not Reportable 02/14/20 04:29 Plt Clumps, EDTA Not Reportable 02/14/20 04:29 Large Platelets Not Reportable 02/14/20 04:29 Giant Platelets Not Reportable 02/14/20 04:29 Platelet Satelliting Not Reportable 02/14/20 04:29 Plt Morphology Comment Not Reportable 02/14/20 04:29 RBC Morphology Not Reportable 02/14/20 04:29 Dimorphic RBCs Not Reportable 02/14/20 04:29 Polychromasia Not Reportable 02/14/20 04:29 Hypochromasia Not Reportable 02/14/20 04:29 Poikilocytosis Not Reportable 02/14/20 04:29 Anisocytosis 1+ 02/14/20 04:29 Microcytosis Not Reportable 02/14/20 04:29 Macrocytosis Not Reportable 02/14/20 04:29 Spherocytes Not Reportable 02/14/20 04:29 Pappenheimer Bodies Not Reportable 02/14/20 04:29 Sickle Cells Not Reportable 02/14/20 04:29 Target Cells Not Reportable 02/14/20 04:29 Tear Drop Cells Not Reportable 02/14/20 04:29 Ovalocytes Not Reportable 02/14/20 04:29 Helmet Cells Not Reportable 02/14/20 04:29 [place] Bodies Not Reportable 02/14/20 04:29 Roann Rings Not Reportable 02/14/20 04:29 [place] Cells Not Reportable 02/14/20 04:29 Bite Cells Not Reportable 02/14/20 04:29 Crenated Cell Not Reportable 02/14/20 04:29 Elliptocytes Not Reportable 02/14/20 04:29 Acanthocytes (Spur) Not Reportable 02/14/20 04:29 Rouleaux Not Reportable 02/14/20 04:29 Hemoglobin C Crystals Not Reportable 02/14/20 04:29 Schistocytes Not Reportable 02/14/20 04:29 Malaria parasites Not Reportable 02/14/20 04:29 Babar Bodies Not Reportable 02/14/20 04:29 Hem Pathologist Commnt No 02/14/20 04:29 PT 16.9 Sec. (12.2-14.9) H 02/13/20 20:10 INR 1.41 (0.87-1.13) H 02/13/20 20:10 APTT 35.3 Sec. (24.2-36.6) 02/13/20 20:10 Heparin Anti-Xa Level 0.47 U.I./ml (0.3-0.7) 02/14/20 10:38 ABG pH 7.288 pH Units (7.350-7.450) L 02/17/20 04:06 ABG pCO2 46.1 mm Hg 02/17/20 04:06 ABG pO2 82.4 mm Hg (80.0-90.0) 02/17/20 04:06 ABG HCO3 21.5 mmol/L (20.0-26.0) 02/17/20 04:06 ABG O2 Saturation 96.1 % (95.0-99.0) 02/17/20 04:06 ABG O2 Content 12.9 (0.0-44) 02/17/20 04:06 ABG Base Excess -4.9 mmol/L (-2.0-3.0) L 02/17/20 04:06 ABG Hemoglobin 9.7 gm/dl (12.0-16.0) L 02/17/20 04:06 ABG Carboxyhemoglobin 1.5 % (0.0-5.0) 02/17/20 04:06 ABG Methemoglobin 0.8 % (0.0-1.5) 02/17/20 04:06 Oxyhemoglobin 94.0 % (95.0-99.0) L 02/17/20 04:06 FiO2 55 % 02/17/20 04:06 Sodium 139 mmol/L (137-145) 02/17/20 03:45 Potassium 3.6 mmol/L (3.6-5.0) 02/17/20 03:45 Chloride 101.8 mmol/L (98-107) 02/17/20 03:45 Carbon Dioxide 21 mmol/L (22-30) L 02/17/20 03:45 Anion Gap 20 mmol/L 02/17/20 03:45 BUN 63 mg/dL (7-17) H 02/17/20 03:45 Creatinine 5.2 mg/dL (0.7-1.2) H 02/17/20 03:45 Estimated GFR 8 ml/min 02/17/20 03:45 BUN/Creatinine Ratio 12 % 02/17/20 03:45 Glucose 134 mg/dL (65-100) H 02/17/20 03:45 POC Glucose 141 (70-105) H 02/17/20 12:08 Ketones Quantitative Negative (Negative) 02/13/20 14:51 Lactic Acid 0.70 mmol/L (0.7-2.0) 02/14/20 Unknown Calcium 7.6 mg/dL (8.4-10.2) L 02/17/20 03:45 Total Bilirubin 0.20 mg/dL (0.1-1.2) 02/12/20 04:58 Direct Bilirubin < 0.2 mg/dL (0-0.2) 02/11/20 15:27 Indirect Bilirubin 0.2 mg/dL 02/11/20 15:27 AST 16 units/L (5-40) 02/12/20 04:58 ALT 24 units/L (7-56) 02/12/20 04:58 Alkaline Phosphatase 127 units/L (35-129) 02/12/20 04:58 Troponin T < 0.010 ng/mL (0.00-0.029) 02/11/20 15:27 Total Protein 7.0 g/dL (6.3-8.2) 02/12/20 04:58 Albumin 3.5 g/dL (3.9-5) L 02/12/20 04:58 Albumin/Globulin Ratio 1.0 % 02/12/20 04:58 Triglycerides 238 mg/dL (2-149) H 02/17/20 03:45 Lipase 60 units/L (13-60) 02/13/20 14:51 Urine Color Yellow (Yellow) 02/11/20 16:32 Urine Turbidity Clear (Clear) 02/11/20 16:32 Urine pH 6.0 (5.0-7.0) 02/11/20 16:32 Ur Specific [place] 1.013 (1.003-1.030) 02/11/20 16:32 Urine Protein >500 mg/dL (Negative) 02/11/20 16:32 Urine Glucose (UA) >=500 mg/dL (Negative) 02/11/20 16:32 Urine Ketones Tr mg/dL (Negative) 02/11/20 16:32 Urine Blood Sm (Negative) 02/11/20 16:32 Urine Nitrite Neg (Negative) 02/11/20 16:32 Urine Bilirubin Neg (Negative) 02/11/20 16:32 Urine Urobilinogen < 2.0 mg/dL (<2.0) 02/11/20 16:32 Ur Leukocyte Esterase Mod (Negative) 02/11/20 16:32 Urine WBC (Auto) 2.0 /HPF (0.0-6.0) 02/11/20 16:32 Urine RBC (Auto) 2.0 /HPF (0.0-6.0) 02/11/20 16:32 U Epithel Cells (Auto) 2.0 /HPF (0-13.0) 02/11/20 16:32 Urine Bacteria (Auto) 1+ /HPF (Negative) 02/11/20 16:32 Urine Eosinophils None seen (None Seen) 02/12/20 Unknown Urine Creatinine 35.3 mg/dL (0.1-20.0) H 02/12/20 Unknown Protein/Creatinin Ratio 22.55 02/12/20 Unknown Urine Total Protein 796 mg/dL (5-11.8) H 02/12/20 Unknown Blood Type O NEGATIVE 02/16/20 08:39 Antibody Screen Negative 02/16/20 08:39 Crossmatch See Detail 02/16/20 08:39 Microbiology: Microbiology 02/11/20 15:27 Peripheral/Venous Blood Culture - Final NO GROWTH AFTER 5 DAYS 02/11/20 15:27 Peripheral/Venous Blood Culture - Final NO GROWTH AFTER 5 DAYS 02/14/20 15:30 Tracheal Aspirate Sputum Culture - Final - Diagnostic Impressions Diagnostic Impressions: Echocardiogram 02/13/20 18:02 Transthoracic Echocardiogram Indication: Afib BP: 101/70 HR: 128 Findings Left Ventricle: The left ventricular chamber size is normal. Mild to moderate concentric left ventricular hypertrophy is observed. Global left ventricular wall motion and contractility are within normal limits. Global left ventricular systolic function is normal. The estimated ejection fraction is 60-65%. Left Atrium: The left atrium is mild to moderately dilated. Right Ventricle: The right ventricular cavity size is normal. The right ventricular global systolic function is normal. Right Atrium: The right atrium appears normal. The interatrial septum appears normal. Aortic Valve: The aortic valve structure is normal. The aortic valve leaflets are mildly thickened. There is no evidence of aortic regurgitation. There is no evidence of aortic stenosis. Mitral Valve: The mitral valve leaflets appear normal. There is no evidence of mitral regurgitation. There is no evidence of mitral stenosis. Tricuspid Valve: The tricuspid valve leaflets are normal. There is mild to moderate tricuspid regurgitation. The right ventricular systolic pressure is calculated at 39 mmHg. There is evidence of pulmonary hypertension. There is no tricuspid stenosis. Pulmonic Valve: The pulmonic valve appears normal. There is no evidence of pulmonic regurgitation. There is no pulmonic stenosis. Pericardium: A pericardial effusion is visualized. There is a minimial pericardial effusion. A left pleural effusion is present. There is a moderate pleural effusion. Aorta: There is no dilatation of the ascending aorta. There is no dilatation of the aortic arch. There is no dilatation of the descending thoracic aorta. There is no dilatation of the aortic root. Venous: The inferior vena cava appears normal in size. Measurements Chambers 2D Name Value Normal Range IVSd (2D) 1.34 cm (0.6 - 1.1) LVPWd (2D) 1.35 cm (0.6 - 1.1) LVIDd (2D) 4.72 cm (3.7 - 5.6) LVIDs (2D) 3.28 cm (2 - 3.8) LV FS (2D) 30.38 % - EF Teichholz (2D) 57.75 % - Ao root diameter (2D) 3.02 cm (2 - 3.7) Volumes/Mass Name Value Normal Range LA ESV SP 4CH (A/L) 55.87 ml - LA ESV SP 2CH (A/L) 67.65 ml - LA ESV BP (A/L) 63.67 ml - LA ESV SP 4CH (MOD) 54.25 ml - LA ESV SP 2CH (MOD) 63.2 ml - LA ESV BP (MOD) 60.49 ml - LA ESV BP (MOD) index 34.18 ml/m2 - LV EDV SP 4CH (MOD) 70.96 ml - LV ESV SP 4CH (MOD) 23.49 ml - EF SP 4CH (MOD) 66.89 % - LV EDV SP 2CH (MOD) 61.41 ml - LV ESV SP 2CH (MOD) 27.43 ml - EF SP 2CH (MOD) 55.33 % - LV EDV BP 69.85 ml - LV ESV BP 26.44 ml - BP EF (MOD) 62.14 % - Aortic Valve Name Value Normal Range AV Vmax 1.29 m/sec - AV VTI 18.56 cm - AV peak gradient 6.69 mmHg - AV mean gradient 3.39 mmHg - LVOT diameter 1.95 cm - LVOT Vmax 1.14 m/sec - LVOT VTI 16.24 cm - LVOT peak gradient 5.21 mmHg - LVOT mean gradient 2.04 mmHg - SV LVOT 48.71 ml - TABATHA (continuity Vmax) 2.65 cm2 - TABATHA (continuity VTI) 2.62 cm2 - Ascending Ao 2.96 cm - Tricuspid Valve Name Value Normal Range TR Vmax 2.47 m/sec - TR peak gradient 24 mmHg - RAP 15 mmHg - RVSP 39 mmHg - Pulmonic Valve/Qp:Qs Name Value Normal Range PV Vmax 1.15 m/sec - PV peak gradient 5.33 mmHg - PV acceleration time 68.51 msec - Acevedo/IV: Voiding Method Indwelling Catheter IV Catheter Type [Left Upper PICC Line arm] IV Catheter Type [Right INT / Saline Lock Antecubital] IV Catheter Type [Right Peripheral IV Forearm] IV Catheter Type [Left Forearm INT / Saline Lock ] IV Catheter Type [Right Hand] Peripheral IV Active Medications - Current Medications Current Medications: Generic Name Dose Route Start Last Admin Trade Name Freq PRN Reason Stop Dose Admin Acetaminophen 650 mg 02/11/20 19:01 02/12/20 17:00 Tylenol PO 650 mg Q4H PRN Administration Pain MILD(1-3)/Fever >100.5/ADAMS Famotidine 20 mg 02/17/20 10:00 02/17/20 09:37 Pepcid IV 20 mg DAILY NADER Administration Hydromorphone HCl 1 mg 02/14/20 13:00 02/15/20 03:22 Dilaudid IV 1 mg Q3H PRN Administration Pain , Severe (7-10) Hydrophilic Ointment 1 applic 02/13/20 19:41 Vaseline Lip Therapy TP Q2HR PRN Dry Lips Metronidazole 500 mg in 100 mls @ 100 mls/hr 02/12/20 15:40 02/17/20 13:16 Flagyl 500 Mg/100 Ml IV 02/22/20 15:39 100 mls/hr Q8HR NADER Administration Fentanyl Citrate 2,000 mcg in 100 mls @ 3.4 mls/hr 02/13/20 20:00 02/17/20 13:21 Fentanyl Drip Premix IV 0 mcg/kg/hr TITR NADER 0 mls/hr Titration Protocol 1 MCG/KG/HR Propofol 1,000 mg in 100 mls @ 2.04 mls/hr 02/13/20 20:00 02/17/20 12:47 Diprivan 10 Mg/Ml IV 0 mcg/kg/min TITR NADER 0 mls/hr Titration Protocol 5 MCG/KG/MIN Heparin Sodium/Sodium Chloride 25,000 unit in 500 mls @ 20 mls/hr 02/13/20 20:00 02/17/20 13:16 Heparin/ 0.45% Nacl-25,000 Unit/500 Ml IV 1,000 units/hr TITR NADER 20 mls/hr Administration Protocol 1,000 UNITS/HR Cefepime HCl 1 gm in 100 mls @ 200 mls/hr 02/16/20 10:00 02/17/20 09:37 Cefepime/Ns 1 Gm/100 Ml IV 02/22/20 10:29 200 mls/hr Q24HR NADER Administration Protocol Sodium Chloride 1,000 mls @ 150 mls/hr 02/16/20 10:00 02/17/20 10:27 Nacl 0.9% 1000 Ml IV 150 mls/hr DIRECT NADER Administration Diltiazem HCl 100 mg in 100 mls @ 2.5 mls/hr 02/16/20 12:19 02/16/20 21:57 Cardizem/D5w 100mg/100ml IV 2.5 mg/hr TITR NADER 2.5 mls/hr Administration 2.5 MG/HR Insulin Human Lispro 0 unit 02/13/20 12:00 02/17/20 12:38 Humalog SUB-Q Not Given Q6HR [facility] Protocol Labetalol HCl 20 mg 02/13/20 18:00 02/17/20 13:48 Labetalol IV 20 mg Q4H PRN Administration SBP >150 Metoprolol Tartrate 2.5 mg 02/13/20 18:00 02/14/20 10:46 Metoprolol IV 2.5 mg Q6HR PRN Administration HR >130 Multi-Ingred Cream/Lotion/Oil/Oint 1 applic 02/13/20 19:41 Artificial Tears Ophth Oint OU Q4HR PRN Dry Eye(s) Ondansetron HCl 4 mg 02/11/20 19:01 02/12/20 05:44 Zofran IV 4 mg Q8H PRN Administration Nausea And Vomiting Sodium Chloride 10 ml 02/11/20 22:00 02/17/20 09:37 Sodium Chloride Flush Syringe 10 Ml IV 10 ml BID NADER Administration Sodium Chloride 10 ml 02/11/20 19:01 02/15/20 22:43 Sodium Chloride Flush Syringe 10 Ml IV 10 ml PRN PRN Administration LINE FLUSH Sodium Chloride 5 ml 02/13/20 19:41 Nacl 0.9% 500 Ml IV DIRECT PRN ARTERIAL ACADEMIC SUCCESS COORDINATOR Nutrition/Malnutrition Assess - Dietary Evaluation Nutrition/Malnutrition Findings: Nutrition Notes Start: 02/14/20 09:49 Freq: Status: Active Protocol: Document 02/16/20 11:14 LM (Rec: 02/16/20 11:16 LM [email or web address]) Nutrition Notes Initial or Follow up Brief Note Current Diagnosis Diabetes,Hypertension, Hyperlipidemia Other Pertinent Diagnosis LITZY/ATN, PKD, ischemic bowel with gangrene s/p exp lap, accelerated HTN Current Diet NPO Subjective/Other Information Pt remains NPO. Per chart pt getting surgery today. Nutrition Intervention Follow-Up By: 02/18/20 Additional Comments F/U: diet advancement vs need for NTR support, vent status
[2020-02-17] MEDS: HYDROmorphone 1 MG/1 ML INJ IV PRN (22:06)
[2020-02-18] MEDS: SODIUM CHLORIDE 0.9% 1000 ML 1,000 ML IV SCH ×2 (01:46→08:13)
[2020-02-18] MEDS: HYDROmorphone 1 MG/1 ML INJ IV PRN ×4 (02:54→20:59)
--- NOTE | 2020-02-18 03:37 | XRay Report ---
CHEST 1 VIEW INDICATION: follow up respiratory failure COMPARISON: One day prior. FINDINGS: Support devices: Unchanged. Heart: Stable. Lungs/Pleura: Right pleural effusion has increased. Persistent atelectasis in the left base. IMPRESSION: 1. Interval development of small right pleural effusion. Signer Name: Ck Garcia MD Signed: 02/18/2020 3:33 AM Workstation Name: [id number]
[2020-02-18] MEDS: METOPROLOL TARTRATE 5 MG/5 ML INJ IV PRN (04:41)
[2020-02-18 05:03] LABS: ABG Base Excess -9.7 mmol/L (-2.0-3.0); ABG HCO3 16.2 mmol/L (20.0-26.0); ABG Methemoglobin 0.8 % (0.0-1.5); ABG Oxygen Saturation 94.3 % (95.0-99.0); ABG PCO2 35.1 mm Hg; ABG PH 7.281 pH Units (7.350-7.450); ABG PO2 74.5 mm Hg (80.0-90.0)
[2020-02-18 05:45] LABS: Calcium 7.7 mg/dL (8.4-10.2)
[2020-02-18] MEDS: INSULIN LISPRO 100 UNIT/ML SUB-Q SCH ×4 (05:46→23:28)
[2020-02-18] MEDS: metroNIDAZOLE/NS 500 MG/100 ML 500 MG/100 ML BAG IV SCH ×3 (05:46→21:02)
--- NOTE | 2020-02-18 08:28 | Progress Note ---
Assessment and Plan 74-year-old female status post 1. Exploratory laparotomy, enterocolonic anastamosis, closure of abdomen, application of wound vac, POD 2 2. Exploratory laparotomy, extensive small bowel resection, partial colon resection, placement of abthera vac, placement of right radial arterial line, 02/13/20 1. bowel ischemia with gangrene 2. sepsis 3. LITZY 4. Afib with RVR 5. Tobacco dependence CXR 02/18/20 - developing right pleural effusion Pt currently hemodynamically stable. Plan: 1. neuro -wean sedation as tolerated. Continue as needed pain control 2. CV - cardiology on board for Afib. monitor H/H. Hep gtt anticoagulation per Vascular surgery 3. Resp - vent management per ICU team, extubate when criteria met. 4. GI - Strict NPO, NGT to LIWS - output appears to be less but still bilious, continue incisional wound VAC - to be changed by electric sign wirer. Consider changing IVF to maintenance fluids as patient developing pleural effusion - will defer to nephro and pulm. GI ppx - protonix IV 5. - continue corcoran catheter for strict I/Os. Nephrology on board. Monitor planting supervisor 6. ID - continue abx per ID 7. Endo - strict glucose control 8. Musc - turning q2 as per protocol, skin breakdown precautions, SCDs 9. FEN - NPO, IVF, replace lytes as needed. Patient has PICC line, dietitian consulted for TPN. Resumption of p.o. diet pending patient's clinical progress. Health Science Specialist notes reviewed and recs appreciated Thank you, please call with questions. Subjective Date of service: 02/18/20 Narrative: Pt seen and examined. No overnight events noted. Unable to be extubated due to mental status. Afebrile. Objective Vital Signs - 12hr 02/17/20 02/17/20 02/17/20 20:30 20:39 20:40 Temperature Pulse Rate 106 H 106 H 102 H Respiratory 15 18 Rate Blood Pressure 161/83 161/83 O2 Sat by Pulse 94 Oximetry 02/17/20 02/17/20 02/17/20 21:00 21:30 22:00 Temperature Pulse Rate 104 H 109 H 110 H Respiratory 16 18 17 Rate Blood Pressure 169/79 164/78 166/79 O2 Sat by Pulse 92 90 Oximetry 02/17/20 02/17/2020 22:30 23:00 23:30 Temperature Pulse Rate 104 H 108 H 107 H Respiratory 15 18 16 Rate Blood Pressure 145/72 135/78 151/77 O2 Sat by Pulse 93 Oximetry 02/17/20 02/17/20 02/18/20 23:40 23:52 00:00 Temperature 98.3 F Pulse Rate 108 H 104 H Respiratory 16 Rate Blood Pressure 155/76 166/79 O2 Sat by Pulse 93 93 Oximetry 02/18/20 02/18/20 02/18/20 00:21 00:30 01:00 Temperature Pulse Rate 104 H 109 H 112 H Respiratory 13 20 Rate Blood Pressure 156/81 169/84 O2 Sat by Pulse 93 93 Oximetry 02/18/20 02/18/20 02/18/20 01:30 02:00 02:30 Temperature Pulse Rate 109 H 112 H 111 H Respiratory 17 20 19 Rate Blood Pressure 144/82 183/84 165/78 O2 Sat by Pulse 93 93 92 Oximetry 02/18/20 02/18/20 02/18/20 03:00 03:30 03:39 Temperature Pulse Rate 113 H 106 H 110 H Respiratory 16 17 Rate Blood Pressure 175/76 155/79 155/79 O2 Sat by Pulse 92 94 Oximetry 02/18/20 02/18/20 02/18/20 04:00 04:30 04:41 Temperature 98.3 F Pulse Rate 137 H 130 H 144 H Respiratory 16 18 Rate Blood Pressure 153/82 158/77 O2 Sat by Pulse 93 92 Oximetry 02/18/20 02/18/20 02/18/20 05:01 05:30 06:00 Temperature Pulse Rate 111 H 121 H 96 H Respiratory 19 15 17 Rate Blood Pressure 165/100 170/71 O2 Sat by Pulse 92 Oximetry 02/18/20 02/18/20 02/18/20 06:30 07:39 07:48 Temperature Pulse Rate 110 H 110 H 110 H Respiratory 16 13 Rate Blood Pressure 136/69 174/75 126/70 O2 Sat by Pulse 94 Oximetry - General physical appearance Narrative Exam: Gen: Intubated. Off sedation. Opens eyes to name. Attempts to move head to track voice, very weak ENT: ETT in place. L eye with gelatinous appearing film. NGT in place with bilious drainage CV: s1, S2+. Tachy Resp: on CPAP mode on vent. No audible wheezes Abd: soft, NT, ND. Incisional wound vac present with good seal, no leak - scant serosang drainage in canister and tubing. Ext: generalized edema : corcoran - Labs 02/17/20 03:45 02/18/20 04:37 Diabetes panel 02/17/20 02/18/20 Range/Units 03:45 04:37 Sodium 143 (137-145) mmol/L Potassium 4.1 (3.6-5.0) mmol/L Chloride 105.4 (98-107) mmol/L Carbon Dioxide 15 L (22-30) mmol/L BUN 65 H (7-17) mg/dL Creatinine 5.1 H (0.7-1.2) mg/dL Glucose 117 H (65-100) mg/dL Calcium 7.7 L (8.4-10.2) mg/dL Triglycerides 238 H (2-149) mg/dL Calcium panel 02/18/20 Range/Units 04:37 Calcium 7.7 L (8.4-10.2) mg/dL Pituitary panel 02/18/20 Range/Units 04:37 Sodium 143 (137-145) mmol/L Potassium 4.1 (3.6-5.0) mmol/L Chloride 105.4 (98-107) mmol/L Carbon Dioxide 15 L (22-30) mmol/L BUN 65 H (7-17) mg/dL Creatinine 5.1 H (0.7-1.2) mg/dL Glucose 117 H (65-100) mg/dL Calcium 7.7 L (8.4-10.2) mg/dL Adrenal panel 02/18/20 Range/Units 04:37 Sodium 143 (137-145) mmol/L Potassium 4.1 (3.6-5.0) mmol/L Chloride 105.4 (98-107) mmol/L Carbon Dioxide 15 L (22-30) mmol/L BUN 65 H (7-17) mg/dL Creatinine 5.1 H (0.7-1.2) mg/dL Glucose 117 H (65-100) mg/dL Calcium 7.7 L (8.4-10.2) mg/dL
--- NOTE | 2020-02-18 09:30 | Progress Note ---
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 Will hold off on diuretic at this time to allow for tubular recovery as able * Will hold IVF given pleural effusion, less likely beneficial at this time given normotension * Acidosis worsening, may be related to dilutional acidosis, stop IVF as noted above * Continue iv abx per ID recs * surgery note reviewed, s/p surgery, OR note reviewed, input appreciated * PRBC transfusion prn per primary * Daily lytes; strict i/os * Avoid nephrotoxins * CT noted, no stones or hydronephrosis * vasopressors prn Thank for involving in the care of this critically ill patient. We will follow closely with you; please do not hesitate to call me on my cell at for any renal related issues. High risk for decompensation and needing renal replacement therapy. Subjective Date of service: 02/18/20 Principal diagnosis: Ischemic Bowel Interval history: Off sedation this AM, opening eyes. Objective - Exam Narrative Exam: Gen: Intubated, opens eyes ENT: ETT in place CV: s1, S2, on dilt gtt Resp: on vent Abd: soft Ext: no c/c/e : corcoran with clear yellow urine Neuro: opens eye spontaneously - Vital Signs Vital signs: Vital Signs - 12hr 02/17/20 02/17/20 02/17/20 21:30 22:00 22:30 Temperature Pulse Rate 109 H 110 H 104 H Respiratory 18 17 15 Rate Blood Pressure 164/78 166/79 145/72 O2 Sat by Pulse 90 Oximetry 02/17/20 02/17/20 02/17/20 23:00 23:30 23:40 Temperature 98.3 F Pulse Rate 108 H 107 H Respiratory 18 16 Rate Blood Pressure 135/78 151/77 O2 Sat by Pulse 93 Oximetry 02/17/20 02/18/20 02/18/20 23:52 00:00 00:21 Temperature Pulse Rate 108 H 104 H 104 H Respiratory 16 Rate Blood Pressure 155/76 166/79 O2 Sat by Pulse 93 93 Oximetry 02/18/20 02/18/20 02/18/20 00:30 01:00 01:30 Temperature Pulse Rate 109 H 112 H 109 H Respiratory 13 20 17 Rate Blood Pressure 156/81 169/84 144/82 O2 Sat by Pulse 93 93 93 Oximetry 02/18/20 02/18/20 02/18/20 02:00 02:30 03:00 Temperature Pulse Rate 112 H 111 H 113 H Respiratory 20 19 16 Rate Blood Pressure 183/84 165/78 175/76 O2 Sat by Pulse 93 92 92 Oximetry 02/18/20 02/18/20 02/18/20 03:30 03:39 04:00 Temperature 98.3 F Pulse Rate 106 H 110 H 137 H Respiratory 17 16 Rate Blood Pressure 155/79 155/79 153/82 O2 Sat by Pulse 94 93 Oximetry 02/18/20 02/18/20 02/18/20 04:30 04:41 05:01 Temperature Pulse Rate 130 H 144 H 111 H Respiratory 18 19 Rate Blood Pressure 158/77 165/100 O2 Sat by Pulse 92 92 Oximetry 02/18/20 02/18/20 02/18/20 05:30 06:00 06:30 Temperature Pulse Rate 121 H 96 H 110 H Respiratory 15 17 16 Rate Blood Pressure 170/71 136/69 O2 Sat by Pulse Oximetry 02/18/20 02/18/20 02/18/20 07:00 07:30 07:39 Temperature Pulse Rate 107 H 110 H 110 H Respiratory 15 17 Rate Blood Pressure 171/69 174/75 174/75 O2 Sat by Pulse Oximetry 02/18/20 02/18/20 02/18/20 07:48 08:00 08:30 Temperature 98.6 F Pulse Rate 110 H 110 H 111 H Respiratory 13 15 15 Rate Blood Pressure 126/70 132/72 138/82 O2 Sat by Pulse 94 Oximetry 02/18/20 09:00 Temperature Pulse Rate 111 H Respiratory 15 Rate Blood Pressure 152/86 O2 Sat by Pulse Oximetry - Lab 02/17/20 03:45 02/18/20 04:37 Most recent lab results ABG pH 7.281 pH Units (7.350-7.450) L 02/18/20 03:41 ABG pCO2 35.1 mm Hg 02/18/20 03:41 ABG pO2 74.5 mm Hg (80.0-90.0) L 02/18/20 03:41 ABG HCO3 16.2 mmol/L (20.0-26.0) L 02/18/20 03:41 ABG O2 Saturation 94.3 % (95.0-99.0) L 02/18/20 03:41 Calcium 7.7 mg/dL (8.4-10.2) L 02/18/20 04:37 Urine Creatinine 35.3 mg/dL (0.1-20.0) H 02/12/20 Unknown Urine Total Protein 796 mg/dL (5-11.8) H 02/12/20 Unknown Medications & Allergies - Medications Allergies/Adverse Reactions: Allergies clindamycin Allergy (Verified 02/11/20 14:52) Hives Home Medications: Home Medications Medication Instructions Recorded Confirmed Last Taken Type Doxazosin [Cardura] 4 mg PO QDAY 02/11/20 02/11/20 02/10/20 History Hydralazine HCl 50 mg PO DAILY 02/11/20 02/11/20 02/10/20 History Metoprolol 25 mg PO DAILY 02/11/20 02/11/20 02/10/20 History Sertraline [Zoloft] 50 mg PO QDAY 02/11/20 02/11/20 02/10/20 History amLODIPine [Norvasc] 10 mg PO DAILY 02/11/20 02/11/20 02/10/20 History glipiZIDE 10 mg PO BID 02/11/20 02/11/20 02/10/20 History Active Medications: Generic Name Dose Route Start Last Admin Trade Name Freq PRN Reason Stop Dose Admin Acetaminophen 650 mg 02/11/20 19:01 02/12/20 17:00 Tylenol PO 650 mg Q4H PRN Administration Pain MILD(1-3)/Fever >100.5/ADAMS Famotidine 20 mg 02/17/20 10:00 02/17/20 09:37 Pepcid IV 20 mg DAILY NADER Administration Hydromorphone HCl 1 mg 02/14/20 13:00 02/18/20 07:39 Dilaudid IV 1 mg Q3H PRN Administration Pain , Severe (7-10) Hydrophilic Ointment 1 applic 02/13/20 19:41 Vaseline Lip Therapy TP Q2HR PRN Dry Lips Metronidazole 500 mg in 100 mls @ 100 mls/hr 02/12/20 15:40 02/18/20 05:46 Flagyl 500 Mg/100 Ml IV 02/22/20 15:39 100 mls/hr Q8HR NADER Administration Heparin Sodium/Sodium Chloride 25,000 unit in 500 mls @ 20 mls/hr 02/13/20 20:00 02/18/20 02:49 Heparin/ 0.45% Nacl-25,000 Unit/500 Ml IV 1,150 units/hr TITR NADER 23 mls/hr Titration Protocol 1,000 UNITS/HR Cefepime HCl 1 gm in 100 mls @ 200 mls/hr 02/16/20 10:00 02/17/20 09:37 Cefepime/Ns 1 Gm/100 Ml IV 02/22/20 10:29 200 mls/hr Q24HR NADER Administration Protocol Sodium Chloride 1,000 mls @ 150 mls/hr 02/16/20 10:00 02/18/20 08:13 Nacl 0.9% 1000 Ml IV 150 mls/hr DIRECT NADER Administration Diltiazem HCl 100 mg in 100 mls @ 2.5 mls/hr 02/16/20 12:19 02/16/20 21:57 Cardizem/D5w 100mg/100ml IV 2.5 mg/hr TITR NADER 2.5 mls/hr Administration 2.5 MG/HR Insulin Human Lispro 0 unit 02/13/20 12:00 02/18/20 05:46 Humalog SUB-Q Not Given Q6HR NADER Protocol Labetalol HCl 20 mg 02/13/20 18:00 02/18/20 07:39 Labetalol IV 20 mg Q4H PRN Administration SBP >150 Metoprolol Tartrate 2.5 mg 02/13/20 18:00 02/18/20 04:41 Metoprolol IV 2.5 mg Q6HR PRN Administration HR >130 Multi-Ingred Cream/Lotion/Oil/Oint 1 applic 02/13/20 19:41 Artificial Tears Ophth Oint OU Q4HR PRN Dry Eye(s) Ondansetron HCl 4 mg 02/11/20 19:01 02/12/20 05:44 Zofran IV 4 mg Q8H PRN Administration Nausea And Vomiting Sodium Chloride 10 ml 02/11/20 22:00 02/17/20 21:49 Sodium Chloride Flush Syringe 10 Ml IV 10 ml BID NADER Administration Sodium Chloride 10 ml 02/11/20 19:01 02/15/20 22:43 Sodium Chloride Flush Syringe 10 Ml IV 10 ml PRN PRN Administration LINE FLUSH Sodium Chloride 5 ml 02/13/20 19:41 Nacl 0.9% 500 Ml IV DIRECT PRN 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
[2020-02-18] MEDS: CEFEPIME/NS 1 GM/100 ML 1 GM/100 ML BAG IV SCH (09:56)
[2020-02-18] MEDS: FAMOTIDINE 20 MG/2 ML INJ IV SCH (09:56)
[2020-02-18 09:59] LABS: Hematocrit 27.1 % (30.3-42.9); Hemoglobin 8.8 gm/dl (10.1-14.3); Mean Corpuscular HGB Conc 32 % (30-34); Mean Corpuscular Volume 91 fl (79-97); Platelet Count 131 K/mm3 (140-440); Red Blood Count 2.99 M/mm3 (3.65-5.03); Red Cell Distribution Width 15.8 % (13.2-15.2)
--- NOTE | 2020-02-18 10:10 | Progress Note ---
Assessment and Plan Assessment and plan: Sepsis. Etiology due to ischemic bowel. Acute hypoxic resp failure. Pulm following. 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 Pt. is s/p Exploratory laparotomy, extensive small bowel resection, partial colon resection, placement of abthera vac on 02/13/2020. S/p exploratory laparotomy, enterocolonic anastamosis, closure of abdomen, application of wound vac on 02/15 Presumed infected renal cyst. ID following Diabetes Mellitus type 2. Tight glycemic control, accucheks and ssri Diarrhea- resolved prior to presentation, doubt C diff, likely from ischemic bowel. LITZY on CKD: Renally adjust antibiotics, worsening 02/18/2020. Patient still with oral ETT on mechanical ventilation. Patient currently with PSVT trials, FiO2 30% pressure support 12 and PEEP 6. Continue to wean as tolerated. Consider extubation today. However, chest x-ray today reveals developing right pleural effusion. Continue wound care per wound team. Continue incisional wound VAC. Continue strict n.p.o. and NGT to low intermittent suction. Continue IV antibiotics per ID The high probability of a clinically significant, sudden or life threatening deterioration of the [respiratory] system(s) required my full and direct attention, intervention and personal management. The aggregate critical care time was [32] minutes. This time is in addition to time spent performing reported procedures but includes the following: [x] Data Review and interpretation [x] Patient assessment and monitoring of vital signs [x] Documentation [x] Medication orders and management History Interval history: No new issues Hospitalist Physical - Constitutional Vitals: Temp Pulse Resp BP Pulse Ox 98.6 F 111 H 15 152/86 92 02/18/20 08:00 02/18/20 09:00 02/18/20 09:00 02/18/20 09:00 02/18/20 08:00 General appearance: Present: other (Intubated) - EENT Eyes: Present: PERRL, EOM intact ENT: hearing intact, clear oral mucosa, dentition normal - Neck Neck: Present: supple, normal ROM - Respiratory Respiratory effort: normal Respiratory: bilateral: CTA - Cardiovascular Rhythm: regular Heart Sounds: Present: S1 & S2. Absent: gallop, rub - Extremities Extremities: no ischemia, No edema, Full ROM - Abdominal General gastrointestinal: soft, non-tender, non-distended, normal bowel sounds - Integumentary Integumentary: Present: clear, warm, dry - Neurologic Neurologic: CNII-XII intact, moves all extremities HEART Score - HEART Score Troponin: Troponin T < 0.010 ng/mL (0.00-0.029) 02/11/20 15:27 Results - Labs CBC & Chem 7: 02/18/20 09:00 02/18/20 04:37 Labs: Laboratory Last Values WBC 14.9 K/mm3 (4.5-11.0) H 02/18/20 09:00 RBC 2.99 M/mm3 (3.65-5.03) L 02/18/20 09:00 Hgb 8.8 gm/dl (10.1-14.3) L 02/18/20 09:00 Hct 27.1 % (30.3-42.9) L 02/18/20 09:00 MCV 91 fl (79-97) 02/18/20 09:00 MCH 29 pg (28-32) 02/18/20 09:00 MCHC 32 % (30-34) 02/18/20 09:00 RDW 15.8 % (13.2-15.2) H 02/18/20 09:00 Plt Count 131 K/mm3 (140-440) L 02/18/20 09:00 Add Manual Diff Complete 02/14/20 04:29 Total Counted 100 02/14/20 04:29 Seg Neutrophils % Charging Plug Placer 02/14/20 04:29 Seg Neuts % (Manual) 88.0 % (40.0-70.0) H 02/14/20 04:29 Band Neutrophils % 1.0 % 02/14/20 04:29 Lymphocytes % (Manual) 6.0 % (13.4-35.0) L 02/14/20 04:29 Reactive Lymphs % (Man) 0 % 02/14/20 04:29 Monocytes % (Manual) 4.0 % (0.0-7.3) 02/14/20 04:29 Eosinophils % (Manual) 1.0 % (0.0-4.3) 02/14/20 04:29 Basophils % (Manual) 0 % (0.0-1.8) 02/14/20 04:29 Metamyelocytes % 0 % 02/14/20 04:29 Myelocytes % 0 % 02/14/20 04:29 Promyelocytes % 0 % 02/14/20 04:29 Blast Cells % 0 % 02/14/20 04:29 Nucleated RBC % Not Reportable 02/14/20 04:29 Seg Neutrophils # Man 12.7 K/mm3 (1.8-7.7) H 02/14/20 04:29 Band Neutrophils # 0.1 K/mm3 02/14/20 04:29 Lymphocytes # (Manual) 0.9 K/mm3 (1.2-5.4) L 02/14/20 04:29 Abs React Lymphs (Man) 0.0 K/mm3 02/14/20 04:29 Monocytes # (Manual) 0.6 K/mm3 (0.0-0.8) 02/14/20 04:29 Eosinophils # (Manual) 0.1 K/mm3 (0.0-0.4) 02/14/20 04:29 Basophils # (Manual) 0.0 K/mm3 (0.0-0.1) 02/14/20 04:29 Metamyelocytes # 0.0 K/mm3 02/14/20 04:29 Myelocytes # 0.0 K/mm3 02/14/20 04:29 Promyelocytes # 0.0 K/mm3 02/14/20 04:29 Blast Cells # 0.0 K/mm3 02/14/20 04:29 WBC Morphology Not Reportable 02/14/20 04:29 Hypersegmented Neuts Not Reportable 02/14/20 04:29 Hyposegmented Neuts Not Reportable 02/14/20 04:29 Hypogranular Neuts Not Reportable 02/14/20 04:29 Smudge Cells Not Reportable 02/14/20 04:29 Toxic Granulation Not Reportable 02/14/20 04:29 Toxic Vacuolation Not Reportable 02/14/20 04:29 Dohle Bodies Not Reportable 02/14/20 04:29 Pelger-Huet Anomaly Not Reportable 02/14/20 04:29 Jyoti Rods Not Reportable 02/14/20 04:29 Platelet Estimate Consistent w auto 02/14/20 04:29 Clumped Platelets Not Reportable 02/14/20 04:29 Plt Clumps, EDTA Not Reportable 02/14/20 04:29 Large Platelets Not Reportable 02/14/20 04:29 Giant Platelets Not Reportable 02/14/20 04:29 Platelet Satelliting Not Reportable 02/14/20 04:29 Plt Morphology Comment Not Reportable 02/14/20 04:29 RBC Morphology Not Reportable 02/14/20 04:29 Dimorphic RBCs Not Reportable 02/14/20 04:29 Polychromasia Not Reportable 02/14/20 04:29 Hypochromasia Not Reportable 02/14/20 04:29 Poikilocytosis Not Reportable 02/14/20 04:29 Anisocytosis 1+ 02/14/20 04:29 Microcytosis Not Reportable 02/14/20 04:29 Macrocytosis Not Reportable 02/14/20 04:29 Spherocytes Not Reportable 02/14/20 04:29 Pappenheimer Bodies Not Reportable 02/14/20 04:29 Sickle Cells Not Reportable 02/14/20 04:29 Target Cells Not Reportable 02/14/20 04:29 Tear Drop Cells Not Reportable 02/14/20 04:29 Ovalocytes Not Reportable 02/14/20 04:29 Helmet Cells Not Reportable 02/14/20 04:29 Garcia-Madeira Bodies Not Reportable 02/14/20 04:29 Willard Rings Not Reportable 02/14/20 04:29 Gladstone Cells Not Reportable 02/14/20 04:29 Bite Cells Not Reportable 02/14/20 04:29 Crenated Cell Not Reportable 02/14/20 04:29 Elliptocytes Not Reportable 02/14/20 04:29 Acanthocytes (Spur) Not Reportable 02/14/20 04:29 Rouleaux Not Reportable 02/14/20 04:29 Hemoglobin C Crystals Not Reportable 02/14/20 04:29 Schistocytes Not Reportable 02/14/20 04:29 Malaria parasites Not Reportable 02/14/20 04:29 Babar Bodies Not Reportable 02/14/20 04:29 Hem Pathologist Commnt No 02/14/20 04:29 PT 16.9 Sec. (12.2-14.9) H 02/13/20 20:10 INR 1.41 (0.87-1.13) H 02/13/20 20:10 APTT 35.3 Sec. (24.2-36.6) 02/13/20 20:10 Heparin Anti-Xa Level 0.31 U.I./ml (0.3-0.7) 02/18/20 02:25 ABG pH 7.281 pH Units (7.350-7.450) L 02/18/20 03:41 ABG pCO2 35.1 mm Hg 02/18/20 03:41 ABG pO2 74.5 mm Hg (80.0-90.0) L 02/18/20 03:41 ABG HCO3 16.2 mmol/L (20.0-26.0) L 02/18/20 03:41 ABG O2 Saturation 94.3 % (95.0-99.0) L 02/18/20 03:41 ABG O2 Content 12.7 (0.0-44) 02/18/20 03:41 ABG Base Excess -9.7 mmol/L (-2.0-3.0) L 02/18/20 03:41 ABG Hemoglobin 9.8 gm/dl (12.0-16.0) L 02/18/20 03:41 ABG Carboxyhemoglobin 1.6 % (0.0-5.0) 02/18/20 03:41 ABG Methemoglobin 0.8 % (0.0-1.5) 02/18/20 03:41 Oxyhemoglobin 92.1 % (95.0-99.0) L 02/18/20 03:41 FiO2 30 % 02/18/20 03:41 Sodium 143 mmol/L (137-145) 02/18/20 04:37 Potassium 4.1 mmol/L (3.6-5.0) 02/18/20 04:37 Chloride 105.4 mmol/L (98-107) 02/18/20 04:37 Carbon Dioxide 15 mmol/L (22-30) L 02/18/20 04:37 Anion Gap 27 mmol/L 02/18/20 04:37 BUN 65 mg/dL (7-17) H 02/18/20 04:37 Creatinine 5.1 mg/dL (0.7-1.2) H 02/18/20 04:37 Estimated GFR 8 ml/min 02/18/20 04:37 BUN/Creatinine Ratio 13 % 02/18/20 04:37 Glucose 117 mg/dL (65-100) H 02/18/20 04:37 POC Glucose 112 (70-105) H 02/18/20 05:44 Ketones Quantitative Negative (Negative) 02/13/20 14:51 Lactic Acid 0.70 mmol/L (0.7-2.0) 02/14/20 Unknown Calcium 7.7 mg/dL (8.4-10.2) L 02/18/20 04:37 Phosphorus 6.40 mg/dL (2.5-4.5) H 02/18/20 09:00 Magnesium 1.30 mg/dL (1.7-2.3) L 02/18/20 09:00 Total Bilirubin 0.20 mg/dL (0.1-1.2) 02/12/20 04:58 Direct Bilirubin < 0.2 mg/dL (0-0.2) 02/11/20 15:27 Indirect Bilirubin 0.2 mg/dL 02/11/20 15:27 AST 16 units/L (5-40) 02/12/20 04:58 ALT 24 units/L (7-56) 02/12/20 04:58 Alkaline Phosphatase 127 units/L (35-129) 02/12/20 04:58 Troponin T < 0.010 ng/mL (0.00-0.029) 02/11/20 15:27 Total Protein 7.0 g/dL (6.3-8.2) 02/12/20 04:58 Albumin 3.5 g/dL (3.9-5) L 02/12/20 04:58 Albumin/Globulin Ratio 1.0 % 02/12/20 04:58 Triglycerides 238 mg/dL (2-149) H 02/17/20 03:45 Lipase 60 units/L (13-60) 02/13/20 14:51 Urine Color Yellow (Yellow) 02/11/20 16:32 Urine Turbidity Clear (Clear) 02/11/20 16:32 Urine pH 6.0 (5.0-7.0) 02/11/20 16:32 Ur Specific [place] 1.013 (1.003-1.030) 02/11/20 16:32 Urine Protein >500 mg/dL (Negative) 02/11/20 16:32 Urine Glucose (UA) >=500 mg/dL (Negative) 02/11/20 16:32 Urine Ketones Tr mg/dL (Negative) 02/11/20 16:32 Urine Blood Sm (Negative) 02/11/20 16:32 Urine Nitrite Neg (Negative) 02/11/20 16:32 Urine Bilirubin Neg (Negative) 02/11/20 16:32 Urine Urobilinogen < 2.0 mg/dL (<2.0) 02/11/20 16:32 Ur Leukocyte Esterase Mod (Negative) 02/11/20 16:32 Urine WBC (Auto) 2.0 /HPF (0.0-6.0) 02/11/20 16:32 Urine RBC (Auto) 2.0 /HPF (0.0-6.0) 02/11/20 16:32 U Epithel Cells (Auto) 2.0 /HPF (0-13.0) 02/11/20 16:32 Urine Bacteria (Auto) 1+ /HPF (Negative) 02/11/20 16:32 Urine Eosinophils None seen (None Seen) 02/12/20 Unknown Urine Creatinine 35.3 mg/dL (0.1-20.0) H 02/12/20 Unknown Protein/Creatinin Ratio 22.55 02/12/20 Unknown Urine Total Protein 796 mg/dL (5-11.8) H 02/12/20 Unknown Blood Type O NEGATIVE 02/16/20 08:39 Antibody Screen Negative 02/16/20 08:39 Crossmatch See Detail 02/16/20 08:39 - Diagnostic Impressions Diagnostic Impressions: Echocardiogram 02/13/20 18:02 Transthoracic Echocardiogram Indication: Afib BP: 101/70 HR: 128 Findings Left Ventricle: The left ventricular chamber size is normal. Mild to moderate concentric left ventricular hypertrophy is observed. Global left ventricular wall motion and contractility are within normal limits. Global left ventricular systolic function is normal. The estimated ejection fraction is 60-65%. Left Atrium: The left atrium is mild to moderately dilated. Right Ventricle: The right ventricular cavity size is normal. The right ventricular global systolic function is normal. Right Atrium: The right atrium appears normal. The interatrial septum appears normal. Aortic Valve: The aortic valve structure is normal. The aortic valve leaflets are mildly thickened. There is no evidence of aortic regurgitation. There is no evidence of aortic stenosis. Mitral Valve: The mitral valve leaflets appear normal. There is no evidence of mitral regurgitation. There is no evidence of mitral stenosis. Tricuspid Valve: The tricuspid valve leaflets are normal. There is mild to moderate tricuspid regurgitation. The right ventricular systolic pressure is calculated at 39 mmHg. There is evidence of pulmonary hypertension. There is no tricuspid stenosis. Pulmonic Valve: The pulmonic valve appears normal. There is no evidence of pulmonic regurgitation. There is no pulmonic stenosis. Pericardium: A pericardial effusion is visualized. There is a minimial pericardial effusion. A left pleural effusion is present. There is a moderate pleural effusion. Aorta: There is no dilatation of the ascending aorta. There is no dilatation of the aortic arch. There is no dilatation of the descending thoracic aorta. There is no dilatation of the aortic root. Venous: The inferior vena cava appears normal in size. Measurements Chambers 2D Name Value Normal Range IVSd (2D) 1.34 cm (0.6 - 1.1) LVPWd (2D) 1.35 cm (0.6 - 1.1) LVIDd (2D) 4.72 cm (3.7 - 5.6) LVIDs (2D) 3.28 cm (2 - 3.8) LV FS (2D) 30.38 % - EF Teichholz (2D) 57.75 % - Ao root diameter (2D) 3.02 cm (2 - 3.7) Volumes/Mass Name Value Normal Range LA ESV SP 4CH (A/L) 55.87 ml - LA ESV SP 2CH (A/L) 67.65 ml - LA ESV BP (A/L) 63.67 ml - LA ESV SP 4CH (MOD) 54.25 ml - LA ESV SP 2CH (MOD) 63.2 ml - LA ESV BP (MOD) 60.49 ml - LA ESV BP (MOD) index 34.18 ml/m2 - LV EDV SP 4CH (MOD) 70.96 ml - LV ESV SP 4CH (MOD) 23.49 ml - EF SP 4CH (MOD) 66.89 % - LV EDV SP 2CH (MOD) 61.41 ml - LV ESV SP 2CH (MOD) 27.43 ml - EF SP 2CH (MOD) 55.33 % - LV EDV BP 69.85 ml - LV ESV BP 26.44 ml - BP EF (MOD) 62.14 % - Aortic Valve Name Value Normal Range AV Vmax 1.29 m/sec - AV VTI 18.56 cm - AV peak gradient 6.69 mmHg - AV mean gradient 3.39 mmHg - LVOT diameter 1.95 cm - LVOT Vmax 1.14 m/sec - LVOT VTI 16.24 cm - LVOT peak gradient 5.21 mmHg - LVOT mean gradient 2.04 mmHg - SV LVOT 48.71 ml - TABATHA (continuity Vmax) 2.65 cm2 - TABATHA (continuity VTI) 2.62 cm2 - Ascending Ao 2.96 cm - Tricuspid Valve Name Value Normal Range TR Vmax 2.47 m/sec - TR peak gradient 24 mmHg - RAP 15 mmHg - RVSP 39 mmHg - Pulmonic Valve/Qp:Qs Name Value Normal Range PV Vmax 1.15 m/sec - PV peak gradient 5.33 mmHg - PV acceleration time 68.51 msec - Acevedo/IV: Voiding Method External Female Catheter IV Catheter Type [Left Upper PICC Line arm] IV Catheter Type [Right INT / Saline Lock Antecubital] IV Catheter Type [Right Peripheral IV Forearm] IV Catheter Type [Left Forearm INT / Saline Lock ] IV Catheter Type [Right Hand] Peripheral IV Active Medications - Current Medications Current Medications: Generic Name Dose Route Start Last Admin Trade Name Freq PRN Reason Stop Dose Admin Acetaminophen 650 mg 02/11/20 19:01 02/12/20 17:00 Tylenol PO 650 mg Q4H PRN Administration Pain MILD(1-3)/Fever >100.5/ADAMS Famotidine 20 mg 02/17/20 10:00 02/18/20 09:56 Pepcid IV 20 mg DAILY NADER Administration Hydromorphone HCl 1 mg 02/14/20 13:00 02/18/20 07:39 Dilaudid IV 1 mg Q3H PRN Administration Pain , Severe (7-10) Hydrophilic Ointment 1 applic 02/13/20 19:41 Vaseline Lip Therapy TP Q2HR PRN Dry Lips Metronidazole 500 mg in 100 mls @ 100 mls/hr 02/12/20 15:40 02/18/20 05:46 Flagyl 500 Mg/100 Ml IV 02/22/20 15:39 100 mls/hr Q8HR NADER Administration Heparin Sodium/Sodium Chloride 25,000 unit in 500 mls @ 20 mls/hr 02/13/20 20:00 02/18/20 02:49 Heparin/ 0.45% Nacl-25,000 Unit/500 Ml IV 1,150 units/hr TITR NADER 23 mls/hr Titration Protocol 1,000 UNITS/HR Cefepime HCl 1 gm in 100 mls @ 200 mls/hr 02/16/20 10:00 02/18/20 09:56 Cefepime/Ns 1 Gm/100 Ml IV 02/22/20 10:29 200 mls/hr Q24HR NADER Administration Protocol Diltiazem HCl 100 mg in 100 mls @ 2.5 mls/hr 02/16/20 12:19 02/16/20 21:57 Cardizem/D5w 100mg/100ml IV 2.5 mg/hr TITR NADER 2.5 mls/hr Administration 2.5 MG/HR Insulin Human Lispro 0 unit 02/13/20 12:00 02/18/20 05:46 Humalog SUB-Q Not Given Q6HR [facility] Protocol Labetalol HCl 20 mg 02/13/20 18:00 02/18/20 07:39 Labetalol IV 20 mg Q4H PRN Administration SBP >150 Metoprolol Tartrate 2.5 mg 02/13/20 18:00 02/18/20 04:41 Metoprolol IV 2.5 mg Q6HR PRN Administration HR >130 Multi-Ingred Cream/Lotion/Oil/Oint 1 applic 02/13/20 19:41 Artificial Tears Ophth Oint OU Q4HR PRN Dry Eye(s) Ondansetron HCl 4 mg 02/11/20 19:01 02/12/20 05:44 Zofran IV 4 mg Q8H PRN Administration Nausea And Vomiting Sodium Chloride 10 ml 02/11/20 22:00 02/18/20 10:00 Sodium Chloride Flush Syringe 10 Ml IV 10 ml BID NADER Administration Sodium Chloride 10 ml 02/11/20 19:01 02/15/20 22:43 Sodium Chloride Flush Syringe 10 Ml IV 10 ml PRN PRN Administration LINE FLUSH Sodium Chloride 5 ml 02/13/20 19:41 Nacl 0.9% 500 Ml IV DIRECT PRN [employer]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 Per chart pt getting surgery today. Nutrition Intervention Follow-Up By: 02/18/20 Additional Comments F/U: diet advancement vs need for NTR support, vent status
--- NOTE | 2020-02-18 11:04 | Progress Note ---
Assessment and Plan - Patient Problems (1) Atrial fibrillation Current Visit: Yes Status: Acute Plan to address problem: Atrial fibrillation paroxysmal, patient reverted to sinus rhythm on low dose IV Cardizem. Echocardiogram showed normal left ventricular systolic function with ejection fraction 60 to 65%. We will continue intravenous diltiazem for paroxysmal atrial fibrillation. Supportive cardiac management. Subjective Date of service: 02/18/20 Principal diagnosis: Ischemic Bowel Interval history: Remains intubated. Mild sinus tachycardia seen on telemetry. Low dose IV Diltiazem continues. Objective Vital Signs Temp Pulse Pulse Resp BP Pulse Ox 02/18/20 11:00 112 H 16 141/79 02/18/20 10:30 112 H 15 142/78 02/18/20 10:00 110 H 16 163/90 94 02/18/20 09:30 110 H 17 153/71 96 02/18/20 09:00 111 H 15 152/86 02/18/20 08:30 111 H 15 138/82 02/18/20 08:00 98.6 F 111 H 110 H 15 132/72 92 02/18/20 07:48 110 H 13 126/70 94 02/18/20 07:39 110 H 174/75 02/18/20 07:30 110 H 17 174/75 02/18/20 07:00 107 H 15 171/69 02/18/20 06:30 110 H 16 136/69 02/18/20 06:00 96 H 17 170/71 02/18/20 05:30 121 H 15 02/18/20 05:01 111 H 19 165/100 92 02/18/20 04:41 144 H 02/18/20 04:30 130 H 18 158/77 92 02/18/20 04:00 98.3 F 137 H 16 153/82 93 02/18/20 03:39 110 H 155/79 94 02/18/20 03:30 106 H 17 155/79 02/18/20 03:00 113 H 16 175/76 92 02/18/20 02:30 111 H 19 165/78 92 02/18/20 02:00 112 H 20 183/84 93 02/18/20 01:30 109 H 17 144/82 93 02/18/20 01:00 112 H 20 169/84 93 02/18/20 00:30 109 H 13 156/81 93 06/24/20 00:21 104 H 02/18/20 00:00 104 H 16 166/79 93 02/17/20 23:52 108 H 155/76 93 02/17/20 23:40 98.3 F 06 23:30 107 H 16 151/77 02/17/20 23:00 108 H 18 135/78 93 02/17/20 22:30 104 H 15 145/72 02/17/20 22:00 110 H 17 166/79 90 02/17/20 21:30 109 H 18 164/78 02/17/20 21:00 104 H 16 169/79 92 02/17/20 20:40 102 H 02/17/20 20:39 106 H 18 161/83 94 02/17/20 20:30 106 H 15 161/83 02/17/20 20:14 109 H 15 147/75 92 02/17/20 20:10 100 H 157/84 93 02/17/20 20:00 109 H 17 157/84 93 02/17/20 19:38 98.8 F 02/17/20 19:30 102 H 15 163/77 92 02/17/20 19:00 101 H 15 144/68 91 02/17/20 18:00 106 H 17 124/66 91 02/17/20 17:30 105 H 18 152/81 84 02/17/20 17:00 99 H 16 133/72 91 02/17/20 16:32 100 H 158/75 93 02/17/20 16:30 99 H 15 147/73 90 02/17/20 16:00 98.4 F 98 H 16 160/77 90 02/17/20 15:30 98 H 13 156/78 89 02/17/20 15:00 93 H 15 149/75 89 02/17/20 14:30 89 16 127/73 89 02/17/20 14:01 83 15 125/73 02/17/20 13:48 111 H 166/73 02/17/20 13:30 112 H 15 160/68 95 02/17/20 13:00 109 H 22 147/71 02/17/20 12:30 106 H 14 150/66 02/17/20 12:00 97.8 F 111 H 15 147/66 91 02/17/20 11:30 109 H 16 142/67 02/17/20 11:23 108 H 144/66 92 - Physical Examination General: Other (intubated) Cardiac: Positive: Tachycardia Abdomen: Positive: Distended - Labs and Meds CBC 02/18/20 Range/Units 09:00 WBC 14.9 H (4.5-11.0) K/mm3 RBC 2.99 L (3.65-5.03) M/mm3 Hgb 8.8 L (10.1-14.3) gm/dl Hct 27.1 L (30.3-42.9) % Plt Count 131 L (140-440) K/mm3 Comprehensive Metabolic Panel 02/18/20 Range/Units 04:37 Sodium 143 (137-145) mmol/L Potassium 4.1 (3.6-5.0) mmol/L Chloride 105.4 (98-107) mmol/L Carbon Dioxide 15 L (22-30) mmol/L BUN 65 H (7-17) mg/dL Creatinine 5.1 H (0.7-1.2) mg/dL Glucose 117 H (65-100) mg/dL Calcium 7.7 L (8.4-10.2) mg/dL
[2020-02-18] MEDS: HEPARIN/ 0.45% NACL DRIP 25,000 UNIT/500 ML BAG IV SCH (11:10)
[2020-02-18] MEDS: dilTIAZem/D5W 100 MG/100 ML BAG IV SCH (11:30)
[2020-02-18] MEDS ORDERED: MAGNESIUM SULFATE 2 GM/50 ML BAG IV ONE (11:42)
--- NOTE | 2020-02-18 12:08 | Progress Note ---
Assessment and Plan Cultures: Blood culture 02/11/2020 no growth today Sputum culture 02/12/19 no growth today Sputum culture 02/13/19 usual resp sulaiman A/P: 74-year-old female past medical history hypertension, diabetes, mitral valve prolapse, hyperlipidemia admitted with acute sepsis and abdominal pain #Acute sepsis: likely due to ischemic bowel. 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 S/p exploratory laparotomy, enterocolonic anastamosis, closure of abdomen, application of wound vac on 02/15 #Respiratory failure: on BIPAP today #Presumed infected renal cyst #Diabetes: Tight glycemic control for best outcomes #Diarrhea: resolved prior to presentation, doubt C diff, likely from ischemic bowel. #LITZY on CKD: Renally adjust antibiotics, worsening Recs: -continue cefepime renally adjusted day 3 of 7 -Continue metronidazole day 3 of 7 -monitor leukocytosis Will follow. Jo-Ann Mccray MD Infectious Diseases Supervisor [employer] [facility] ([facility]) M [phone] O [phone] Subjective Date of service: 02/18/20 Principal diagnosis: Ischemic Bowel Interval history: Remains intubated sedated no fever on cardizem gtt Objective - Exam Narrative Exam: Constitutional: sedated intubated Head, Ears, Nose: Normocephalic, atraumatic. Eyes: Conjunctivae/corneas clear. No icterus. No ptosis. Neck: Supple, no meningeal signs Oral: +ETT Cardiovascular: S1, S2 normal. Respiratory: Good air entry, clear to auscultation bilaterally GI: Soft, midline wound with VAC. Musculoskeletal:yareli arm edema Skin: No rash or abscess Hem/Lymphatic: No palpable cervical or supraclavicular nodes. No lymphangitis Psych: no agitated Neurological: sedated left PICC pour wick - Constitutional Vitals: Vital Signs Temp Pulse Resp BP Pulse Ox 98.6 F 129 H 16 141/79 94 02/18/20 08:00 02/18/20 11:36 02/18/20 11:00 02/18/20 11:00 02/18/20 10:00 Temperature -Last 24 Hours Temperature 98.6 F Temperature 98.3 F Temperature 98.3 F Temperature 98.8 F Temperature 98.4 F - Labs CBC & Chem 7: 02/18/20 09:00 02/18/20 04:37 Labs: Abnormal lab results 02/17/20 02/17/20 02/17/20 Range/Units 12:08 18:07 19:54 WBC (4.5-11.0) K/mm3 RBC (3.65-5.03) M/mm3 Hgb (10.1-14.3) gm/dl Hct (30.3-42.9) % RDW (13.2-15.2) % Plt Count (140-440) K/mm3 Heparin Anti-Xa Level < 0.10 L (0.3-0.7) U.I./ml ABG pH (7.350-7.450) pH Units ABG pO2 (80.0-90.0) mm Hg ABG HCO3 (20.0-26.0) mmol/L ABG O2 Saturation (95.0-99.0) % ABG Base Excess (-2.0-3.0) mmol/L ABG Hemoglobin (12.0-16.0) gm/dl Oxyhemoglobin (95.0-99.0) % Carbon Dioxide (22-30) mmol/L BUN (7-17) mg/dL Creatinine (0.7-1.2) mg/dL Glucose (65-100) mg/dL POC Glucose 141 H 189 H (70-105) Calcium (8.4-10.2) mg/dL Phosphorus (2.5-4.5) mg/dL Magnesium (1.7-2.3) mg/dL 02/17/20 02/18/20 02/18/20 Range/Units 23:13 03:41 04:37 WBC (4.5-11.0) K/mm3 RBC (3.65-5.03) M/mm3 Hgb (10.1-14.3) gm/dl Hct (30.3-42.9) % RDW (13.2-15.2) % Plt Count (140-440) K/mm3 Heparin Anti-Xa Level (0.3-0.7) U.I./ml ABG pH 7.281 L (7.350-7.450) pH Units ABG pO2 74.5 L (80.0-90.0) mm Hg ABG HCO3 16.2 L (20.0-26.0) mmol/L ABG O2 Saturation 94.3 L (95.0-99.0) % ABG Base Excess -9.7 L (-2.0-3.0) mmol/L ABG Hemoglobin 9.8 L (12.0-16.0) gm/dl Oxyhemoglobin 92.1 L (95.0-99.0) % Carbon Dioxide 15 L (22-30) mmol/L BUN 65 H (7-17) mg/dL Creatinine 5.1 H (0.7-1.2) mg/dL Glucose 117 H (65-100) mg/dL POC Glucose 167 H (70-105) Calcium 7.7 L (8.4-10.2) mg/dL Phosphorus (2.5-4.5) mg/dL Magnesium (1.7-2.3) mg/dL 02/18/20 02/18/20 02/18/20 Range/Units 05:44 09:00 09:00 WBC 14.9 H (4.5-11.0) K/mm3 RBC 2.99 L (3.65-5.03) M/mm3 Hgb 8.8 L (10.1-14.3) gm/dl Hct 27.1 L (30.3-42.9) % RDW 15.8 H (13.2-15.2) % Plt Count 131 L (140-440) K/mm3 Heparin Anti-Xa Level (0.3-0.7) U.I./ml ABG pH (7.350-7.450) pH Units ABG pO2 (80.0-90.0) mm Hg ABG HCO3 (20.0-26.0) mmol/L ABG O2 Saturation (95.0-99.0) % ABG Base Excess (-2.0-3.0) mmol/L ABG Hemoglobin (12.0-16.0) gm/dl Oxyhemoglobin (95.0-99.0) % Carbon Dioxide (22-30) mmol/L BUN (7-17) mg/dL Creatinine (0.7-1.2) mg/dL Glucose (65-100) mg/dL POC Glucose 112 H (70-105) Calcium (8.4-10.2) mg/dL Phosphorus 6.40 H (2.5-4.5) mg/dL Magnesium 1.30 L (1.7-2.3) mg/dL
--- NOTE | 2020-02-18 14:19 | Progress Note ---
Assessment and Plan 74 y/o female with abdominal pain, hypotension, now hypertensive with tachycardia and pain, worrisome for SBO and inflammation in colon from diverticula with worsening renal function. 02/18/2020: More awake but failing PSV trials. Spoke with renal and they did not request corcoran out either. Will replace and give lasix 80mg IV. Spoke with Granddaughter over the phone who is a nurse. Will attempt PSV later this afternoon. If passes, will likely extubate in the am. If not , will give an additional dose of lasix tonight. 02/17/2020: Start to wean sedation today with hopes of extubation. Pain control. IVF's per renal. Follow up any surgery recs. ID seen this am, reviewed their note and plan to treat for 7 days of abx, currently on day 2. 02/16/2020: Picc line placed yesterday. Going to OR today, plan around 1330. If able to close, could consider starting to wean as early as tomorrow but will touch base with surgery first. Patient HR in the 50's on drip so cards decreased. Discussed on rounds, but I asked nursing if any further issues to just stop the drip. Prognosis remains guarded. Trigylcerides not checked so will order stat. 02/15/2020: No new recs for today. Happy with current clinical state in regards to sedation, ventilation and oxygenation. Appreciate surgery and nephro help. follow up any new recs from them. Agree with picc line, will get tomorrow as I believe they (picc team) are not available on Sunday. Will check triglyceride level in the am. 1. Continue deep sedation and pain control. No plans on weaning or extubation until abdominal issues are done. 2. Continue corcoran 3. Follow up surgery recs. Greatly appreciate them and their help. Plan for return to OR on Sunday. 4. IV abx, ID following. 5. Cardiology has elected for dilt drip. Suggest titrating. Gave nurse parameters. 6. Follow up renal rec Guarded prognosis. CCT 31 minutes. Subjective Date of service: 02/18/20 Principal diagnosis: Ischemic Bowel Interval history: More awake today but failed PSV. Slightly volume overloaded and corcoran came out sometime between this afternoon and yesterday. Objective Vital Signs - 12hr 0602/18/20 02/18/20 02:30 03:00 03:30 Temperature Pulse Rate 111 H 113 H 106 H Pulse Rate [ From Monitor] Respiratory 19 16 17 Rate Blood Pressure 165/78 175/76 155/79 O2 Sat by Pulse 92 92 Oximetry 02/18/20 02/18/20 02/18/20 03:39 04:00 04:30 Temperature 98.3 F Pulse Rate 110 H 137 H 130 H Pulse Rate [ From Monitor] Respiratory 16 18 Rate Blood Pressure 155/79 153/82 158/77 O2 Sat by Pulse 94 93 92 Oximetry 02/18/20 02/18/20 02/18/20 04:41 05:01 05:30 Temperature Pulse Rate 144 H 111 H 121 H Pulse Rate [ From Monitor] Respiratory 19 15 Rate Blood Pressure 165/100 O2 Sat by Pulse 92 Oximetry 02/18/20 02/18/20 02/18/20 06:00 06:30 07:00 Temperature Pulse Rate 96 H 110 H 107 H Pulse Rate [ From Monitor] Respiratory 17 16 15 Rate Blood Pressure 170/71 136/69 171/69 O2 Sat by Pulse Oximetry 02/18/20 02/18/20 02/18/20 07:30 07:39 07:48 Temperature Pulse Rate 110 H 110 H 110 H Pulse Rate [ From Monitor] Respiratory 17 13 Rate Blood Pressure 174/75 174/75 126/70 O2 Sat by Pulse 94 Oximetry 02/18/20 02/18/20 02/18/20 08:00 08:30 09:00 Temperature 98.6 F Pulse Rate 111 H 111 H 111 H Pulse Rate [ 110 H From Monitor] Respiratory 15 15 15 Rate Blood Pressure 132/72 138/82 152/86 O2 Sat by Pulse 92 Oximetry 02/18/20 02/18/20 02/18/20 09:30 10:00 10:30 Temperature Pulse Rate 110 H 110 H 112 H Pulse Rate [ From Monitor] Respiratory 17 16 15 Rate Blood Pressure 153/71 163/90 142/78 O2 Sat by Pulse 96 94 Oximetry 02/18/20 02/18/20 02/18/20 11:00 11:30 11:36 Temperature Pulse Rate 112 H 112 H 129 H Pulse Rate [ From Monitor] Respiratory 16 15 Rate Blood Pressure 141/79 148/75 O2 Sat by Pulse 94 Oximetry 02/18/20 02/18/20 02/18/20 12:00 12:01 12:04 Temperature 98.9 F Pulse Rate 98 H 89 Pulse Rate [ 98 H From Monitor] Respiratory 16 16 Rate Blood Pressure 158/78 158/78 O2 Sat by Pulse 98 94 95 Oximetry 02/18/20 02/18/20 12:25 12:30 Temperature Pulse Rate 91 H 85 Pulse Rate [ From Monitor] Respiratory 16 Rate Blood Pressure 170/74 163/64 O2 Sat by Pulse 93 Oximetry CBC and BMP: 02/18/20 09:00 02/18/20 04:37 ABG, PT/INR, D-dimer: ABG ABG pH 7.281 pH Units (7.350-7.450) L 02/18/20 03:41 ABG pCO2 35.1 mm Hg 02/18/20 03:41 ABG pO2 74.5 mm Hg (80.0-90.0) L 02/18/20 03:41 ABG O2 Saturation 94.3 % (95.0-99.0) L 02/18/20 03:41 PT/INR, D-dimer PT 16.9 Sec. (12.2-14.9) H 02/13/20 20:10 INR 1.41 (0.87-1.13) H 02/13/20 20:10 Abnormal lab findings: Abnormal Labs 02/11/20 02/11/20 02/11/20 15:27 15:27 15:27 WBC 22.5 H RBC Hgb Hct MCHC RDW Plt Count Seg Neuts % (Manual) 90.0 H Lymphocytes % (Manual) 4.0 L Seg Neutrophils # Man 20.3 H Lymphocytes # (Manual) 0.9 L Monocytes # (Manual) 1.1 H PT INR APTT 23.3 L Heparin Anti-Xa Level ABG pH ABG pO2 ABG HCO3 ABG O2 Saturation ABG Base Excess ABG Hemoglobin Oxyhemoglobin Sodium 132 L Potassium Chloride 96.0 L Carbon Dioxide 16 L BUN 59 H Creatinine 3.0 H Glucose 487 H POC Glucose Calcium Phosphorus Magnesium Alkaline Phosphatase 142 H Albumin Triglycerides Lipase 86 H Urine Creatinine Urine Total Protein Crossmatch 02/12/20 02/12/20 02/12/20 04:58 04:58 Unknown WBC 30.0 H RBC Hgb Hct MCHC RDW Plt Count Seg Neuts % (Manual) 96.0 H Lymphocytes % (Manual) 1.0 L Seg Neutrophils # Man 28.8 H Lymphocytes # (Manual) 0.3 L Monocytes # (Manual) 0.9 H PT INR APTT Heparin Anti-Xa Level ABG pH ABG pO2 ABG HCO3 ABG O2 Saturation ABG Base Excess ABG Hemoglobin Oxyhemoglobin Sodium Potassium Chloride Carbon Dioxide 15 L BUN 59 H Creatinine 3.0 H Glucose 477 H POC Glucose Calcium Phosphorus Magnesium Alkaline Phosphatase Albumin 3.5 L Triglycerides Lipase Urine Creatinine 35.3 H Urine Total Protein 796 H Crossmatch 02/13/20 02/13/20 02/13/20 05:43 05:43 13:24 WBC 38.2 H RBC Hgb Hct 43.6 H MCHC RDW Plt Count Seg Neuts % (Manual) 91.0 H Lymphocytes % (Manual) 4.0 L Seg Neutrophils # Man 34.8 H Lymphocytes # (Manual) Monocytes # (Manual) 1.1 H PT INR APTT Heparin Anti-Xa Level ABG pH ABG pO2 ABG HCO3 ABG O2 Saturation ABG Base Excess ABG Hemoglobin Oxyhemoglobin Sodium 136 L Potassium Chloride Carbon Dioxide 11 L BUN 71 H Creatinine 4.0 H Glucose 343 H POC Glucose 337 H Calcium Phosphorus Magnesium Alkaline Phosphatase Albumin Triglycerides Lipase Urine Creatinine Urine Total Protein Crossmatch 02/13/20 02/13/20 02/13/20 16:49 16:50 17:30 WBC RBC Hgb Hct MCHC RDW Plt Count Seg Neuts % (Manual) Lymphocytes % (Manual) Seg Neutrophils # Man Lymphocytes # (Manual) Monocytes # (Manual) PT INR APTT Heparin Anti-Xa Level ABG pH 7.226 L ABG pO2 77.9 L ABG HCO3 16.4 L ABG O2 Saturation ABG Base Excess -10.5 L ABG Hemoglobin 11.7 L Oxyhemoglobin 92.8 L Sodium Potassium Chloride Carbon Dioxide BUN Creatinine Glucose POC Glucose 272 H Calcium Phosphorus Magnesium Alkaline Phosphatase Albumin Triglycerides Lipase Urine Creatinine Urine Total Protein Crossmatch See Detail 02/13/20 02/13/20 02/14/20 20:10 22:08 00:22 WBC RBC Hgb Hct MCHC RDW Plt Count Seg Neuts % (Manual) Lymphocytes % (Manual) Seg Neutrophils # Man Lymphocytes # (Manual) Monocytes # (Manual) PT 16.9 H INR 1.41 H APTT Heparin Anti-Xa Level ABG pH 7.158 L* ABG pO2 ABG HCO3 18.6 L ABG O2 Saturation ABG Base Excess -10.2 L ABG Hemoglobin 11.9 L Oxyhemoglobin 93.1 L Sodium Potassium Chloride Carbon Dioxide BUN Creatinine Glucose POC Glucose 199 H Calcium Phosphorus Magnesium Alkaline Phosphatase Albumin Triglycerides Lipase Urine Creatinine Urine Total Protein Crossmatch 02/14/20 02/14/20 02/14/20 03:45 04:29 04:29 WBC 14.4 H RBC Hgb Hct MCHC RDW 15.3 H Plt Count Seg Neuts % (Manual) 88.0 H Lymphocytes % (Manual) 6.0 L Seg Neutrophils # Man 12.7 H Lymphocytes # (Manual) 0.9 L Monocytes # (Manual) PT INR APTT Heparin Anti-Xa Level ABG pH 7.193 L* ABG pO2 ABG HCO3 16.4 L ABG O2 Saturation ABG Base Excess -11.2 L ABG Hemoglobin 10.2 L Oxyhemoglobin 94.3 L Sodium Potassium Chloride 108.5 H Carbon Dioxide 16 L BUN 73 H Creatinine 4.3 H Glucose 167 H POC Glucose Calcium 8.0 L Phosphorus Magnesium Alkaline Phosphatase Albumin Triglycerides Lipase Urine Creatinine Urine Total Protein Crossmatch 02/14/20 02/14/20 02/14/20 05:26 12:11 18:34 WBC RBC Hgb Hct MCHC RDW Plt Count Seg Neuts % (Manual) Lymphocytes % (Manual) Seg Neutrophils # Man Lymphocytes # (Manual) Monocytes # (Manual) PT INR APTT Heparin Anti-Xa Level ABG pH ABG pO2 ABG HCO3 ABG O2 Saturation ABG Base Excess ABG Hemoglobin Oxyhemoglobin Sodium Potassium Chloride Carbon Dioxide BUN Creatinine Glucose POC Glucose 177 H 160 H 135 H Calcium Phosphorus Magnesium Alkaline Phosphatase Albumin Triglycerides Lipase Urine Creatinine Urine Total Protein Crossmatch 02/14/20 02/15/20 02/15/20 23:18 03:19 04:28 WBC RBC Hgb Hct MCHC RDW Plt Count Seg Neuts % (Manual) Lymphocytes % (Manual) Seg Neutrophils # Man Lymphocytes # (Manual) Monocytes # (Manual) PT INR APTT Heparin Anti-Xa Level ABG pH 7.246 L ABG pO2 ABG HCO3 13.7 L ABG O2 Saturation ABG Base Excess -12.5 L ABG Hemoglobin 8.4 L Oxyhemoglobin 94.6 L Sodium Potassium Chloride Carbon Dioxide 12 L BUN 72 H Creatinine 4.7 H Glucose 147 H POC Glucose 138 H Calcium 7.9 L Phosphorus Magnesium Alkaline Phosphatase Albumin Triglycerides Lipase Urine Creatinine Urine Total Protein Crossmatch 02/15/20 02/15/20 02/15/20 04:28 05:35 12:07 WBC RBC 2.88 L Hgb 8.6 L Hct 25.4 L D MCHC RDW 15.6 H Plt Count Seg Neuts % (Manual) Lymphocytes % (Manual) Seg Neutrophils # Man Lymphocytes # (Manual) Monocytes # (Manual) PT INR APTT Heparin Anti-Xa Level ABG pH ABG pO2 ABG HCO3 ABG O2 Saturation ABG Base Excess ABG Hemoglobin Oxyhemoglobin Sodium Potassium Chloride Carbon Dioxide BUN Creatinine Glucose POC Glucose 181 H 136 H Calcium Phosphorus Magnesium Alkaline Phosphatase Albumin Triglycerides Lipase Urine Creatinine Urine Total Protein Crossmatch 02/15/20 02/15/20 02/16/20 17:50 23:18 04:20 WBC RBC Hgb Hct MCHC RDW Plt Count Seg Neuts % (Manual) Lymphocytes % (Manual) Seg Neutrophils # Man Lymphocytes # (Manual) Monocytes # (Manual) PT INR APTT Heparin Anti-Xa Level ABG pH ABG pO2 77.4 L ABG HCO3 ABG O2 Saturation ABG Base Excess -4.7 L ABG Hemoglobin 5.0 L Oxyhemoglobin Sodium Potassium Chloride Carbon Dioxide BUN Creatinine Glucose POC Glucose 177 H 284 H Calcium Phosphorus Magnesium Alkaline Phosphatase Albumin Triglycerides Lipase Urine Creatinine Urine Total Protein Crossmatch 02/16/20 02/16/20 02/16/20 05:24 05:29 05:29 WBC RBC 2.31 L Hgb 7.2 L Hct 20.2 L MCHC 36 H RDW 15.3 H Plt Count 115 L Seg Neuts % (Manual) Lymphocytes % (Manual) Seg Neutrophils # Man Lymphocytes # (Manual) Monocytes # (Manual) PT INR APTT Heparin Anti-Xa Level ABG pH ABG pO2 ABG HCO3 ABG O2 Saturation ABG Base Excess ABG Hemoglobin Oxyhemoglobin Sodium 135 L Potassium 3.0 L D Chloride 90.7 L Carbon Dioxide BUN 64 H Creatinine 4.7 H Glucose 491 H POC Glucose 282 H Calcium 7.2 L Phosphorus Magnesium Alkaline Phosphatase Albumin Triglycerides Lipase Urine Creatinine Urine Total Protein Crossmatch 02/16/20 02/16/20 02/16/20 05:29 08:39 12:27 WBC RBC Hgb Hct MCHC RDW Plt Count Seg Neuts % (Manual) Lymphocytes % (Manual) Seg Neutrophils # Man Lymphocytes # (Manual) Monocytes # (Manual) PT INR APTT Heparin Anti-Xa Level ABG pH ABG pO2 ABG HCO3 ABG O2 Saturation ABG Base Excess ABG Hemoglobin Oxyhemoglobin Sodium Potassium Chloride Carbon Dioxide BUN Creatinine Glucose POC Glucose 314 H Calcium Phosphorus Magnesium Alkaline Phosphatase Albumin Triglycerides 716 H Lipase Urine Creatinine Urine Total Protein Crossmatch See Detail 02/16/20 02/17/20 02/17/20 19:04 00:02 03:45 WBC RBC Hgb Hct MCHC RDW Plt Count Seg Neuts % (Manual) Lymphocytes % (Manual) Seg Neutrophils # Man Lymphocytes # (Manual) Monocytes # (Manual) PT INR APTT Heparin Anti-Xa Level ABG pH ABG pO2 ABG HCO3 ABG O2 Saturation ABG Base Excess ABG Hemoglobin Oxyhemoglobin Sodium Potassium Chloride Carbon Dioxide 21 L BUN 63 H Creatinine 5.2 H Glucose 134 H POC Glucose 203 H 202 H Calcium 7.6 L Phosphorus Magnesium Alkaline Phosphatase Albumin Triglycerides Lipase Urine Creatinine Urine Total Protein Crossmatch 02/17/20 02/17/20 02/17/20 03:45 03:45 04:06 WBC RBC Hgb 9.9 L Hct 30.1 L D MCHC RDW Plt Count Seg Neuts % (Manual) Lymphocytes % (Manual) Seg Neutrophils # Man Lymphocytes # (Manual) Monocytes # (Manual) PT INR APTT Heparin Anti-Xa Level ABG pH 7.288 L ABG pO2 ABG HCO3 ABG O2 Saturation ABG Base Excess -4.9 L ABG Hemoglobin 9.7 L Oxyhemoglobin 94.0 L Sodium Potassium Chloride Carbon Dioxide BUN Creatinine Glucose POC Glucose Calcium Phosphorus Magnesium Alkaline Phosphatase Albumin Triglycerides 238 H Lipase Urine Creatinine Urine Total Protein Crossmatch 02/17/20 02/17/20 02/17/20 05:21 12:08 18:07 WBC RBC Hgb Hct MCHC RDW Plt Count Seg Neuts % (Manual) Lymphocytes % (Manual) Seg Neutrophils # Man Lymphocytes # (Manual) Monocytes # (Manual) PT INR APTT Heparin Anti-Xa Level ABG pH ABG pO2 ABG HCO3 ABG O2 Saturation ABG Base Excess ABG Hemoglobin Oxyhemoglobin Sodium Potassium Chloride Carbon Dioxide BUN Creatinine Glucose POC Glucose 132 H 141 H 189 H Calcium Phosphorus Magnesium Alkaline Phosphatase Albumin Triglycerides Lipase Urine Creatinine Urine Total Protein Crossmatch 02/17/20 02/17/20 02/18/20 19:54 23:13 03:41 WBC RBC Hgb Hct MCHC RDW Plt Count Seg Neuts % (Manual) Lymphocytes % (Manual) Seg Neutrophils # Man Lymphocytes # (Manual) Monocytes # (Manual) PT INR APTT Heparin Anti-Xa Level < 0.10 L ABG pH 7.281 L ABG pO2 74.5 L ABG HCO3 16.2 L ABG O2 Saturation 94.3 L ABG Base Excess -9.7 L ABG Hemoglobin 9.8 L Oxyhemoglobin 92.1 L Sodium Potassium Chloride Carbon Dioxide BUN Creatinine Glucose POC Glucose 167 H Calcium Phosphorus Magnesium Alkaline Phosphatase Albumin Triglycerides Lipase Urine Creatinine Urine Total Protein Crossmatch 02/18/20 02/18/20 02/18/20 04:37 05:44 09:00 WBC RBC Hgb Hct MCHC RDW Plt Count Seg Neuts % (Manual) Lymphocytes % (Manual) Seg Neutrophils # Man Lymphocytes # (Manual) Monocytes # (Manual) PT INR APTT Heparin Anti-Xa Level ABG pH ABG pO2 ABG HCO3 ABG O2 Saturation ABG Base Excess ABG Hemoglobin Oxyhemoglobin Sodium Potassium Chloride Carbon Dioxide 15 L BUN 65 H Creatinine 5.1 H Glucose 117 H POC Glucose 112 H Calcium 7.7 L Phosphorus 6.40 H Magnesium 1.30 L Alkaline Phosphatase Albumin Triglycerides Lipase Urine Creatinine Urine Total Protein Crossmatch 02/18/20 02/18/20 09:00 12:41 WBC 14.9 H RBC 2.99 L Hgb 8.8 L Hct 27.1 L MCHC RDW 15.8 H Plt Count 131 L Seg Neuts % (Manual) Lymphocytes % (Manual) Seg Neutrophils # Man Lymphocytes # (Manual) Monocytes # (Manual) PT INR APTT Heparin Anti-Xa Level ABG pH ABG pO2 ABG HCO3 ABG O2 Saturation ABG Base Excess ABG Hemoglobin Oxyhemoglobin Sodium Potassium Chloride Carbon Dioxide BUN Creatinine Glucose POC Glucose 140 H Calcium Phosphorus Magnesium Alkaline Phosphatase Albumin Triglycerides Lipase Urine Creatinine Urine Total Protein Crossmatch
[2020-02-18] MEDS ORDERED: FUROSEMIDE 40 MG/4 ML INJ IV ONE (14:53)
[2020-02-18] MEDS ORDERED: TOTAL PARENTERAL NUTRITION 3,000 ML IV SCH (20:00)
[2020-02-19] MEDS: HYDROmorphone 1 MG/1 ML INJ IV PRN ×4 (01:05→12:10)
[2020-02-19 04:18] LABS: ABG Base Excess -14.1 mmol/L (-2.0-3.0); ABG HCO3 11.8 mmol/L (20.0-26.0); ABG Methemoglobin 0.9 % (0.0-1.5); ABG PH 7.243 pH Units (7.350-7.450); ABG PO2 75.3 mm Hg (80.0-90.0)
[2020-02-19 05:08] LABS: Calcium 8.8 mg/dL (8.4-10.2)
[2020-02-19 05:14] LABS: Hematocrit 28.9 % (30.3-42.9); Hemoglobin 9.1 gm/dl (10.1-14.3); Mean Corpuscular HGB Conc 32 % (30-34); Mean Corpuscular Volume 91 fl (79-97); Platelet Count 175 K/mm3 (140-440); Red Blood Count 3.19 M/mm3 (3.65-5.03); Red Cell Distribution Width 15.5 % (13.2-15.2)
[2020-02-19] MEDS: metroNIDAZOLE/NS 500 MG/100 ML 500 MG/100 ML BAG IV SCH ×3 (05:37→21:11)
--- NOTE | 2020-02-19 06:06 | XRay Report ---
CHEST 1 VIEW INDICATION: follow up respiratory failure COMPARISON: One day prior. FINDINGS: Support devices: Unchanged. Heart: Stable. Lungs/Pleura: Pleural parenchymal disease in both lung bases is significantly improved. Only minimal disease persists. IMPRESSION: 1. Significant improvement. Signer Name: Ck Garcia MD Signed: 02/19/2020 6:01 AM Workstation Name: [id number]
[2020-02-19 06:17] LABS: Band Neutrophils # (Manual) 0.2 K/mm3; Basophils % (Manual) 0 % (0.0-1.8); Eosinophils % (Manual) 0 % (0.0-4.3); Hypersegmented Neutrophils Few; Total Cells Counted 100
[2020-02-19 06:18] LABS: Burr Cells Few; Hypochromasia Few; Ovalocytes Few; Platelet Estimate Cons; Spherocytes Rare
[2020-02-19] MEDS ORDERED: SODIUM BICARB 8.4% 50 MEQ/50 ML SYRINGE IV ONE ×3 (06:20→16:32)
[2020-02-19] MEDS: INSULIN LISPRO 100 UNIT/ML SUB-Q SCH ×4 (06:31→19:39)
[2020-02-19] MEDS: HEPARIN/ 0.45% NACL DRIP 25,000 UNIT/500 ML BAG IV SCH (08:42)
[2020-02-19] MEDS: FAMOTIDINE 20 MG/2 ML INJ IV SCH (09:51)
[2020-02-19] MEDS: CEFEPIME/NS 1 GM/100 ML 1 GM/100 ML BAG IV SCH (09:51)
--- NOTE | 2020-02-19 10:18 | Progress Note ---
Assessment and Plan Atrial fibrillation, paroxysmal on low dose IV Cardizem. echocardiogram showed normal left ventricular systolic function with ejection fraction 60 to 65%. Sepsis Ischemic bowel Respiratory failure Diabetes LITZY on CKD We will add intravenous amiodarone in addition to intravenous diltiazem for paroxysmal atrial fibrillation. Subjective Date of service: 02/19/20 Principal diagnosis: Ischemic Bowel Interval history: Remains intubated. 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 Objective Vital Signs Temp Pulse Pulse Resp BP Pulse Ox 02/19/20 10:00 88 13 148/94 98 02/19/20 09:30 90 16 122/70 98 02/19/20 09:00 96 H 14 129/75 97 02/19/20 08:38 120 H 165/99 02/19/20 08:30 121 H 16 147/75 97 02/19/20 08:00 98 H 102 H 16 149/81 97 02/19/20 07:59 112 H 149/81 97 02/19/20 07:30 112 H 17 160/82 97 02/19/20 07:10 98.1 F 02/19/20 07:00 121 H 17 153/75 96 02/19/20 06:30 105 H 16 131/76 97 02/19/20 06:07 18 02/19/20 06:00 98 H 21 142/71 94 02/19/20 05:37 16 02/19/20 05:30 127 H 9 L 146/67 02/19/20 05:00 113 H 12 123/71 93 02/19/20 04:30 125 H 12 125/78 93 02/19/20 04:00 98 F 125 H 125 H 16 135/77 94 02/19/20 03:42 108 H 123/77 95 02/19/20 03:30 108 H 14 123/77 94 02/19/20 03:00 109 H 18 109/65 94 02/19/20 02:30 98 H 17 130/72 95 02/19/20 02:00 94 H 13 114/58 95 02/19/20 01:30 95 H 13 115/52 95 02/19/20 01:00 116 H 19 141/66 93 02/19/20 00:30 117 H 16 137/69 95 02/19/20 00:14 116 H 123/69 95 06/25/20 00:00 118 H 125 H 16 123/69 96 02/18/20 23:50 98.2 F 02/18/20 23:30 100 H 17 119/67 97 02/18/20 23:01 107 H 15 119/67 97 02/18/20 23:00 104 H 14 119/67 96 02/18/20 22:46 99 H 19 130/69 96 02/18/20 22:30 96 H 16 110/56 96 02/18/20 22:00 89 15 106/52 96 02/18/20 21:30 101 H 15 103/54 97 02/18/20 21:00 107 H 18 127/57 95 02/18/20 20:30 119 H 14 115/70 96 02/18/20 20:00 98.4 F 95 H 125 H 17 125/69 96 02/18/20 19:35 113 H 118/64 97 02/18/20 19:30 104 H 17 118/64 95 02/18/20 19:00 99 H 17 112/63 96 02/18/20 18:30 94 H 16 124/58 90 02/18/20 18:00 107 H 15 121/67 95 02/18/20 17:30 109 H 16 130/76 02/18/20 17:00 113 H 18 138/67 92 02/18/20 16:30 109 H 21 135/69 02/18/20 16:00 98.5 F 119 H 119 H 17 133/76 97 02/18/20 15:44 101 H 146/66 94 02/18/20 15:30 107 H 19 136/68 92 02/18/20 15:00 81 14 136/60 94 02/18/20 14:30 83 16 158/62 94 02/18/20 14:00 84 15 160/68 93 02/18/20 13:30 86 13 147/77 92 02/18/20 13:00 88 17 164/74 92 02/18/20 12:30 85 16 163/64 93 02/18/20 12:25 91 H 170/74 02/18/20 12:04 89 158/78 95 02/18/20 12:01 98 H 16 158/78 94 02/18/20 12:00 98.9 F 98 H 16 98 02/18/20 11:36 129 H 02/18/20 11:30 112 H 15 148/75 94 02/18/20 11:00 112 H 16 141/79 02/18/20 10:30 112 H 15 142/78 - Physical Examination General: Other (intubated) - Labs and Meds CBC 02/19/20 Range/Units 04:30 WBC 19.8 H (4.5-11.0) K/mm3 RBC 3.19 L (3.65-5.03) M/mm3 Hgb 9.1 L (10.1-14.3) gm/dl Hct 28.9 L (30.3-42.9) % Plt Count 175 (140-440) K/mm3 Comprehensive Metabolic Panel 02/19/20 Range/Units 04:30 Sodium 136 L (137-145) mmol/L Potassium 4.1 (3.6-5.0) mmol/L Chloride 100.3 (98-107) mmol/L Carbon Dioxide 12 L (22-30) mmol/L BUN 76 H (7-17) mg/dL Creatinine 5.2 H (0.7-1.2) mg/dL Glucose 228 H (65-100) mg/dL Calcium 8.8 (8.4-10.2) mg/dL
--- NOTE | 2020-02-19 10:23 | Progress Note ---
Assessment and Plan Cultures: Blood culture 02/11/2020 no growth today Sputum culture 02/12/19 no growth today Sputum culture 02/13/19 usual resp sulaiman A/P: 74-year-old female past medical history hypertension, diabetes, mitral valve prolapse, hyperlipidemia admitted with acute sepsis and abdominal pain #Acute sepsis: likely due to ischemic bowel. 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 S/p exploratory laparotomy, enterocolonic anastamosis, closure of abdomen, application of wound vac on 02/15 #Respiratory failure: on BIPAP today #Presumed infected renal cyst #Diabetes: Tight glycemic control for best outcomes #Diarrhea: resolved prior to presentation, doubt C diff, likely from ischemic bowel. #LITZY on CKD: Renally adjust antibiotics, worsening Recs: -continue cefepime renally adjusted day 4 of 7 -Continue metronidazole day 4 of 7 -obtain new blood cx given leukocytosis -add fluconazole renally adjusted -monitor leukocytosis -if diarrhea > 3 X check C diff Will follow. Jo-Ann Mccray MD Infectious Diseases [employer] [facility] ([facility]) M [phone] O [phone] Subjective Date of service: 02/19/20 Principal diagnosis: Ischemic Bowel Interval history: Remains intubated sedated no fever on cardizem gtt and TPN Objective - Exam Narrative Exam: Constitutional: sedated intubated Head, Ears, Nose: Normocephalic, atraumatic. Eyes: Conjunctivae/corneas clear. No icterus. No ptosis. Neck: Supple, no meningeal signs Oral: +ETT Cardiovascular: S1, S2 normal. Respiratory: Good air entry, clear to auscultation bilaterally GI: Soft, midline wound with VAC. Musculoskeletal:yareli arm edema Skin: No rash or abscess Hem/Lymphatic: No palpable cervical or supraclavicular nodes. No lymphangitis Psych: no agitated Neurological: sedated left PICC - Constitutional Vitals: Vital Signs Temp Pulse Resp BP Pulse Ox 98.1 F 88 13 148/94 98 02/19/20 07:10 02/19/20 10:00 02/19/20 10:00 02/19/20 10:00 02/19/20 10:00 Temperature -Last 24 Hours Temperature 98.1 F Temperature 98 F Temperature 98.2 F Temperature 98.4 F Temperature 98.5 F Temperature 98.9 F - Labs CBC & Chem 7: 02/19/20 04:30 02/19/20 14:00 Labs: Abnormal lab results 02/18/20 02/18/20 02/18/20 Range/Units 12:41 17:58 23:06 WBC (4.5-11.0) K/mm3 RBC (3.65-5.03) M/mm3 Hgb (10.1-14.3) gm/dl Hct (30.3-42.9) % RDW (13.2-15.2) % Seg Neuts % (Manual) (40.0-70.0) % Lymphocytes % (Manual) (13.4-35.0) % Seg Neutrophils # Man (1.8-7.7) K/mm3 Lymphocytes # (Manual) (1.2-5.4) K/mm3 Monocytes # (Manual) (0.0-0.8) K/mm3 ABG pH (7.350-7.450) pH Units ABG pO2 (80.0-90.0) mm Hg ABG HCO3 (20.0-26.0) mmol/L ABG O2 Saturation (95.0-99.0) % ABG Base Excess (-2.0-3.0) mmol/L ABG Hemoglobin (12.0-16.0) gm/dl Oxyhemoglobin (95.0-99.0) % Sodium (137-145) mmol/L Carbon Dioxide (22-30) mmol/L BUN (7-17) mg/dL Creatinine (0.7-1.2) mg/dL Glucose (65-100) mg/dL POC Glucose 140 H 141 H 212 H (70-105) Phosphorus (2.5-4.5) mg/dL 02/19/20 02/19/20 02/19/20 Range/Units 03:50 04:30 04:30 WBC 19.8 H (4.5-11.0) K/mm3 RBC 3.19 L (3.65-5.03) M/mm3 Hgb 9.1 L (10.1-14.3) gm/dl Hct 28.9 L (30.3-42.9) % RDW 15.5 H (13.2-15.2) % Seg Neuts % (Manual) 86.0 H (40.0-70.0) % Lymphocytes % (Manual) 5.0 L (13.4-35.0) % Seg Neutrophils # Man 17.0 H (1.8-7.7) K/mm3 Lymphocytes # (Manual) 1.0 L (1.2-5.4) K/mm3 Monocytes # (Manual) 1.4 H (0.0-0.8) K/mm3 ABG pH 7.243 L (7.350-7.450) pH Units ABG pO2 75.3 L (80.0-90.0) mm Hg ABG HCO3 11.8 L (20.0-26.0) mmol/L ABG O2 Saturation 94.0 L (95.0-99.0) % ABG Base Excess -14.1 L (-2.0-3.0) mmol/L ABG Hemoglobin 9.6 L (12.0-16.0) gm/dl Oxyhemoglobin 91.8 L (95.0-99.0) % Sodium 136 L (137-145) mmol/L Carbon Dioxide 12 L (22-30) mmol/L BUN 76 H (7-17) mg/dL Creatinine 5.2 H (0.7-1.2) mg/dL Glucose 228 H (65-100) mg/dL POC Glucose (70-105) Phosphorus (2.5-4.5) mg/dL 02/19/20 02/19/20 Range/Units 04:30 06:19 WBC (4.5-11.0) K/mm3 RBC (3.65-5.03) M/mm3 Hgb (10.1-14.3) gm/dl Hct (30.3-42.9) % RDW (13.2-15.2) % Seg Neuts % (Manual) (40.0-70.0) % Lymphocytes % (Manual) (13.4-35.0) % Seg Neutrophils # Man (1.8-7.7) K/mm3 Lymphocytes # (Manual) (1.2-5.4) K/mm3 Monocytes # (Manual) (0.0-0.8) K/mm3 ABG pH (7.350-7.450) pH Units ABG pO2 (80.0-90.0) mm Hg ABG HCO3 (20.0-26.0) mmol/L ABG O2 Saturation (95.0-99.0) % ABG Base Excess (-2.0-3.0) mmol/L ABG Hemoglobin (12.0-16.0) gm/dl Oxyhemoglobin (95.0-99.0) % Sodium (137-145) mmol/L Carbon Dioxide (22-30) mmol/L BUN (7-17) mg/dL Creatinine (0.7-1.2) mg/dL Glucose (65-100) mg/dL POC Glucose 253 H (70-105) Phosphorus 8.00 H D (2.5-4.5) mg/dL
--- NOTE | 2020-02-19 11:12 | Progress Note ---
Assessment and Plan 74 y/o female with abdominal pain, hypotension, now hypertensive with tachycardia and pain, worrisome for SBO and inflammation in colon from diverticula with worsening renal function. 02/19/2020: More awake today but failed PSV secondary to tachypnea. Makes sense given degree of acidosis. Await renal to eval today. Wonder if more lasix will be given or if she will need HD. Only on 30% with good sats, but compensating for metabolic acidosis which is why she failed PSV. Spoke with Granddaughter over the phone, renal please call as she would like an update on renal function and plans. Continue pain control with PRN therapy but no further continuous sedation. 02/18/2020: More awake but failing PSV trials. Spoke with renal and they did not request corcoran out either. Will replace and give lasix 80mg IV. Spoke with Granddaughter over the phone who is a nurse. Will attempt PSV later this afternoon. If passes, will likely extubate in the am. If not , will give an additional dose of lasix tonight. 02/17/2020: Start to wean sedation today with hopes of extubation. Pain control. IVF's per renal. Follow up any surgery recs. ID seen this am, reviewed their note and plan to treat for 7 days of abx, currently on day 2. 02/16/2020: Picc line placed yesterday. Going to OR today, plan around 1330. If able to close, could consider starting to wean as early as tomorrow but will touch base with surgery first. Patient HR in the 50's on drip so cards decreased. Discussed on rounds, but I asked nursing if any further issues to just stop the drip. Prognosis remains guarded. Trigylcerides not checked so will order stat. 02/15/2020: No new recs for today. Happy with current clinical state in regards to sedation, ventilation and oxygenation. Appreciate surgery and nephro help. follow up any new recs from them. Agree with picc line, will get tomorrow as I believe they (picc team) are not available on Sunday. Will check triglyceride level in the am. 1. Continue deep sedation and pain control. No plans on weaning or extubation until abdominal issues are done. 2. Continue corcoran 3. Follow up surgery recs. Greatly appreciate them and their help. Plan for return to OR on Sunday. 4. IV abx, ID following. 5. Cardiology has elected for dilt drip. Suggest titrating. Gave nurse parameters. 6. Follow up renal rec Guarded prognosis. CCT 31 minutes. Subjective Date of service: 02/19/20 Principal diagnosis: Ischemic Bowel Interval history: No acute events. More awake today. Doing some tracking with eyes today. Responded well to lasix therapy but only negative about 50cc's. Objective Vital Signs - 12hr 02/18/20 02/18/20 02/19/20 23:30 23:50 00:00 Temperature 98.2 F Pulse Rate 100 H 118 H Pulse Rate [ 125 H From Monitor] Respiratory 17 16 Rate Blood Pressure 119/67 123/69 O2 Sat by Pulse 97 96 Oximetry 02/19/20 02/19/20 02/19/20 00:14 00:30 01:00 Temperature Pulse Rate 116 H 117 H 116 H Pulse Rate [ From Monitor] Respiratory 16 19 Rate Blood Pressure 123/69 137/69 141/66 O2 Sat by Pulse 95 95 93 Oximetry 02/19/20 02/19/20 02/19/20 01:30 02:00 02:30 Temperature Pulse Rate 95 H 94 H 98 H Pulse Rate [ From Monitor] Respiratory 13 13 17 Rate Blood Pressure 115/52 114/58 130/72 O2 Sat by Pulse 95 95 95 Oximetry 02/19/20 02/19/20 02/19/20 03:00 03:30 03:42 Temperature Pulse Rate 109 H 108 H 108 H Pulse Rate [ From Monitor] Respiratory 18 14 Rate Blood Pressure 109/65 123/77 123/77 O2 Sat by Pulse 94 94 95 Oximetry 02/19/20 02/19/20 02/19/20 04:00 04:30 05:00 Temperature 98 F Pulse Rate 125 H 125 H 113 H Pulse Rate [ 125 H From Monitor] Respiratory 16 12 12 Rate Blood Pressure 135/77 125/78 123/71 O2 Sat by Pulse 94 93 93 Oximetry 02/19/20 02/19/20 02/19/20 05:30 05:37 06:00 Temperature Pulse Rate 127 H 98 H Pulse Rate [ From Monitor] Respiratory 9 L 16 21 Rate Blood Pressure 146/67 142/71 O2 Sat by Pulse 94 Oximetry 02/19/20 02/19/20 02/19/20 06:07 06:30 07:00 Temperature Pulse Rate 105 H 121 H Pulse Rate [ From Monitor] Respiratory 18 16 17 Rate Blood Pressure 131/76 153/75 O2 Sat by Pulse 97 96 Oximetry 02/19/20 02/19/20 02/19/20 07:10 07:30 07:59 Temperature 98.1 F Pulse Rate 112 H 112 H Pulse Rate [ From Monitor] Respiratory 17 Rate Blood Pressure 160/82 149/81 O2 Sat by Pulse 97 97 Oximetry 02/19/20 02/19/20 02/19/20 08:00 08:30 08:38 Temperature Pulse Rate 98 H 121 H 120 H Pulse Rate [ 102 H From Monitor] Respiratory 16 16 Rate Blood Pressure 149/81 147/75 165/99 O2 Sat by Pulse 97 97 Oximetry 02/19/20 02/19/20 02/19/20 09:00 09:30 10:00 Temperature Pulse Rate 96 H 90 88 Pulse Rate [ From Monitor] Respiratory 14 16 13 Rate Blood Pressure 129/75 122/70 148/94 O2 Sat by Pulse 97 98 98 Oximetry CBC and BMP: 02/19/20 04:30 02/19/20 04:30 ABG, PT/INR, D-dimer: ABG ABG pH 7.243 pH Units (7.350-7.450) L 02/19/20 03:50 ABG pCO2 28.0 mm Hg 02/19/20 03:50 ABG pO2 75.3 mm Hg (80.0-90.0) L 02/19/20 03:50 ABG O2 Saturation 94.0 % (95.0-99.0) L 02/19/20 03:50 PT/INR, D-dimer PT 16.9 Sec. (12.2-14.9) H 02/13/20 20:10 INR 1.41 (0.87-1.13) H 02/13/20 20:10 Abnormal lab findings: Abnormal Labs 02/11/20 02/11/20 02/11/20 15:27 15:27 15:27 WBC 22.5 H RBC Hgb Hct MCHC RDW Plt Count Seg Neuts % (Manual) 90.0 H Lymphocytes % (Manual) 4.0 L Seg Neutrophils # Man 20.3 H Lymphocytes # (Manual) 0.9 L Monocytes # (Manual) 1.1 H PT INR APTT 23.3 L Heparin Anti-Xa Level ABG pH ABG pO2 ABG HCO3 ABG O2 Saturation ABG Base Excess ABG Hemoglobin Oxyhemoglobin Sodium 132 L Potassium Chloride 96.0 L Carbon Dioxide 16 L BUN 59 H Creatinine 3.0 H Glucose 487 H POC Glucose Calcium Phosphorus Magnesium Alkaline Phosphatase 142 H Albumin Triglycerides Lipase 86 H Urine Creatinine Urine Total Protein Crossmatch 02/12/20 02/12/20 02/12/20 04:58 04:58 Unknown WBC 30.0 H RBC Hgb Hct MCHC RDW Plt Count Seg Neuts % (Manual) 96.0 H Lymphocytes % (Manual) 1.0 L Seg Neutrophils # Man 28.8 H Lymphocytes # (Manual) 0.3 L Monocytes # (Manual) 0.9 H PT INR APTT Heparin Anti-Xa Level ABG pH ABG pO2 ABG HCO3 ABG O2 Saturation ABG Base Excess ABG Hemoglobin Oxyhemoglobin Sodium Potassium Chloride Carbon Dioxide 15 L BUN 59 H Creatinine 3.0 H Glucose 477 H POC Glucose Calcium Phosphorus Magnesium Alkaline Phosphatase Albumin 3.5 L Triglycerides Lipase Urine Creatinine 35.3 H Urine Total Protein 796 H Crossmatch 02/13/20 02/13/20 02/13/20 05:43 05:43 13:24 WBC 38.2 H RBC Hgb Hct 43.6 H MCHC RDW Plt Count Seg Neuts % (Manual) 91.0 H Lymphocytes % (Manual) 4.0 L Seg Neutrophils # Man 34.8 H Lymphocytes # (Manual) Monocytes # (Manual) 1.1 H PT INR APTT Heparin Anti-Xa Level ABG pH ABG pO2 ABG HCO3 ABG O2 Saturation ABG Base Excess ABG Hemoglobin Oxyhemoglobin Sodium 136 L Potassium Chloride Carbon Dioxide 11 L BUN 71 H Creatinine 4.0 H Glucose 343 H POC Glucose 337 H Calcium Phosphorus Magnesium Alkaline Phosphatase Albumin Triglycerides Lipase Urine Creatinine Urine Total Protein Crossmatch 02/13/20 02/13/20 02/13/20 16:49 16:50 17:30 WBC RBC Hgb Hct MCHC RDW Plt Count Seg Neuts % (Manual) Lymphocytes % (Manual) Seg Neutrophils # Man Lymphocytes # (Manual) Monocytes # (Manual) PT INR APTT Heparin Anti-Xa Level ABG pH 7.226 L ABG pO2 77.9 L ABG HCO3 16.4 L ABG O2 Saturation ABG Base Excess -10.5 L ABG Hemoglobin 11.7 L Oxyhemoglobin 92.8 L Sodium Potassium Chloride Carbon Dioxide BUN Creatinine Glucose POC Glucose 272 H Calcium Phosphorus Magnesium Alkaline Phosphatase Albumin Triglycerides Lipase Urine Creatinine Urine Total Protein Crossmatch See Detail 02/13/20 02/13/20 02/14/20 20:10 22:08 00:22 WBC RBC Hgb Hct MCHC RDW Plt Count Seg Neuts % (Manual) Lymphocytes % (Manual) Seg Neutrophils # Man Lymphocytes # (Manual) Monocytes # (Manual) PT 16.9 H INR 1.41 H APTT Heparin Anti-Xa Level ABG pH 7.158 L* ABG pO2 ABG HCO3 18.6 L ABG O2 Saturation ABG Base Excess -10.2 L ABG Hemoglobin 11.9 L Oxyhemoglobin 93.1 L Sodium Potassium Chloride Carbon Dioxide BUN Creatinine Glucose POC Glucose 199 H Calcium Phosphorus Magnesium Alkaline Phosphatase Albumin Triglycerides Lipase Urine Creatinine Urine Total Protein Crossmatch 02/14/20 02/14/20 02/14/20 03:45 04:29 04:29 WBC 14.4 H RBC Hgb Hct MCHC RDW 15.3 H Plt Count Seg Neuts % (Manual) 88.0 H Lymphocytes % (Manual) 6.0 L Seg Neutrophils # Man 12.7 H Lymphocytes # (Manual) 0.9 L Monocytes # (Manual) PT INR APTT Heparin Anti-Xa Level ABG pH 7.193 L* ABG pO2 ABG HCO3 16.4 L ABG O2 Saturation ABG Base Excess -11.2 L ABG Hemoglobin 10.2 L Oxyhemoglobin 94.3 L Sodium Potassium Chloride 108.5 H Carbon Dioxide 16 L BUN 73 H Creatinine 4.3 H Glucose 167 H POC Glucose Calcium 8.0 L Phosphorus Magnesium Alkaline Phosphatase Albumin Triglycerides Lipase Urine Creatinine Urine Total Protein Crossmatch 02/14/20 02/14/20 02/14/20 05:26 12:11 18:34 WBC RBC Hgb Hct MCHC RDW Plt Count Seg Neuts % (Manual) Lymphocytes % (Manual) Seg Neutrophils # Man Lymphocytes # (Manual) Monocytes # (Manual) PT INR APTT Heparin Anti-Xa Level ABG pH ABG pO2 ABG HCO3 ABG O2 Saturation ABG Base Excess ABG Hemoglobin Oxyhemoglobin Sodium Potassium Chloride Carbon Dioxide BUN Creatinine Glucose POC Glucose 177 H 160 H 135 H Calcium Phosphorus Magnesium Alkaline Phosphatase Albumin Triglycerides Lipase Urine Creatinine Urine Total Protein Crossmatch 02/14/20 02/15/20 02/15/20 23:18 03:19 04:28 WBC RBC Hgb Hct MCHC RDW Plt Count Seg Neuts % (Manual) Lymphocytes % (Manual) Seg Neutrophils # Man Lymphocytes # (Manual) Monocytes # (Manual) PT INR APTT Heparin Anti-Xa Level ABG pH 7.246 L ABG pO2 ABG HCO3 13.7 L ABG O2 Saturation ABG Base Excess -12.5 L ABG Hemoglobin 8.4 L Oxyhemoglobin 94.6 L Sodium Potassium Chloride Carbon Dioxide 12 L BUN 72 H Creatinine 4.7 H Glucose 147 H POC Glucose 138 H Calcium 7.9 L Phosphorus Magnesium Alkaline Phosphatase Albumin Triglycerides Lipase Urine Creatinine Urine Total Protein Crossmatch 02/15/20 02/15/20 02/15/20 04:28 05:35 12:07 WBC RBC 2.88 L Hgb 8.6 L Hct 25.4 L D MCHC RDW 15.6 H Plt Count Seg Neuts % (Manual) Lymphocytes % (Manual) Seg Neutrophils # Man Lymphocytes # (Manual) Monocytes # (Manual) PT INR APTT Heparin Anti-Xa Level ABG pH ABG pO2 ABG HCO3 ABG O2 Saturation ABG Base Excess ABG Hemoglobin Oxyhemoglobin Sodium Potassium Chloride Carbon Dioxide BUN Creatinine Glucose POC Glucose 181 H 136 H Calcium Phosphorus Magnesium Alkaline Phosphatase Albumin Triglycerides Lipase Urine Creatinine Urine Total Protein Crossmatch 02/15/20 02/15/20 02/16/20 17:50 23:18 04:20 WBC RBC Hgb Hct MCHC RDW Plt Count Seg Neuts % (Manual) Lymphocytes % (Manual) Seg Neutrophils # Man Lymphocytes # (Manual) Monocytes # (Manual) PT INR APTT Heparin Anti-Xa Level ABG pH ABG pO2 77.4 L ABG HCO3 ABG O2 Saturation ABG Base Excess -4.7 L ABG Hemoglobin 5.0 L Oxyhemoglobin Sodium Potassium Chloride Carbon Dioxide BUN Creatinine Glucose POC Glucose 177 H 284 H Calcium Phosphorus Magnesium Alkaline Phosphatase Albumin Triglycerides Lipase Urine Creatinine Urine Total Protein Crossmatch 02/16/20 02/16/20 02/16/20 05:24 05:29 05:29 WBC RBC 2.31 L Hgb 7.2 L Hct 20.2 L MCHC 36 H RDW 15.3 H Plt Count 115 L Seg Neuts % (Manual) Lymphocytes % (Manual) Seg Neutrophils # Man Lymphocytes # (Manual) Monocytes # (Manual) PT INR APTT Heparin Anti-Xa Level ABG pH ABG pO2 ABG HCO3 ABG O2 Saturation ABG Base Excess ABG Hemoglobin Oxyhemoglobin Sodium 135 L Potassium 3.0 L D Chloride 90.7 L Carbon Dioxide BUN 64 H Creatinine 4.7 H Glucose 491 H POC Glucose 282 H Calcium 7.2 L Phosphorus Magnesium Alkaline Phosphatase Albumin Triglycerides Lipase Urine Creatinine Urine Total Protein Crossmatch 02/16/20 02/16/20 02/16/20 05:29 08:39 12:27 WBC RBC Hgb Hct MCHC RDW Plt Count Seg Neuts % (Manual) Lymphocytes % (Manual) Seg Neutrophils # Man Lymphocytes # (Manual) Monocytes # (Manual) PT INR APTT Heparin Anti-Xa Level ABG pH ABG pO2 ABG HCO3 ABG O2 Saturation ABG Base Excess ABG Hemoglobin Oxyhemoglobin Sodium Potassium Chloride Carbon Dioxide BUN Creatinine Glucose POC Glucose 314 H Calcium Phosphorus Magnesium Alkaline Phosphatase Albumin Triglycerides 716 H Lipase Urine Creatinine Urine Total Protein Crossmatch See Detail 02/16/20 02/17/20 02/17/20 19:04 00:02 03:45 WBC RBC Hgb Hct MCHC RDW Plt Count Seg Neuts % (Manual) Lymphocytes % (Manual) Seg Neutrophils # Man Lymphocytes # (Manual) Monocytes # (Manual) PT INR APTT Heparin Anti-Xa Level ABG pH ABG pO2 ABG HCO3 ABG O2 Saturation ABG Base Excess ABG Hemoglobin Oxyhemoglobin Sodium Potassium Chloride Carbon Dioxide 21 L BUN 63 H Creatinine 5.2 H Glucose 134 H POC Glucose 203 H 202 H Calcium 7.6 L Phosphorus Magnesium Alkaline Phosphatase Albumin Triglycerides Lipase Urine Creatinine Urine Total Protein Crossmatch 02/17/20 02/17/20 02/17/20 03:45 03:45 04:06 WBC RBC Hgb 9.9 L Hct 30.1 L D MCHC RDW Plt Count Seg Neuts % (Manual) Lymphocytes % (Manual) Seg Neutrophils # Man Lymphocytes # (Manual) Monocytes # (Manual) PT INR APTT Heparin Anti-Xa Level ABG pH 7.288 L ABG pO2 ABG HCO3 ABG O2 Saturation ABG Base Excess -4.9 L ABG Hemoglobin 9.7 L Oxyhemoglobin 94.0 L Sodium Potassium Chloride Carbon Dioxide BUN Creatinine Glucose POC Glucose Calcium Phosphorus Magnesium Alkaline Phosphatase Albumin Triglycerides 238 H Lipase Urine Creatinine Urine Total Protein Crossmatch 02/17/20 02/17/20 02/17/20 05:21 12:08 18:07 WBC RBC Hgb Hct MCHC RDW Plt Count Seg Neuts % (Manual) Lymphocytes % (Manual) Seg Neutrophils # Man Lymphocytes # (Manual) Monocytes # (Manual) PT INR APTT Heparin Anti-Xa Level ABG pH ABG pO2 ABG HCO3 ABG O2 Saturation ABG Base Excess ABG Hemoglobin Oxyhemoglobin Sodium Potassium Chloride Carbon Dioxide BUN Creatinine Glucose POC Glucose 132 H 141 H 189 H Calcium Phosphorus Magnesium Alkaline Phosphatase Albumin Triglycerides Lipase Urine Creatinine Urine Total Protein Crossmatch 02/17/20 02/17/20 02/18/20 19:54 23:13 03:41 WBC RBC Hgb Hct MCHC RDW Plt Count Seg Neuts % (Manual) Lymphocytes % (Manual) Seg Neutrophils # Man Lymphocytes # (Manual) Monocytes # (Manual) PT INR APTT Heparin Anti-Xa Level < 0.10 L ABG pH 7.281 L ABG pO2 74.5 L ABG HCO3 16.2 L ABG O2 Saturation 94.3 L ABG Base Excess -9.7 L ABG Hemoglobin 9.8 L Oxyhemoglobin 92.1 L Sodium Potassium Chloride Carbon Dioxide BUN Creatinine Glucose POC Glucose 167 H Calcium Phosphorus Magnesium Alkaline Phosphatase Albumin Triglycerides Lipase Urine Creatinine Urine Total Protein Crossmatch 02/18/20 02/18/20 02/18/20 04:37 05:44 09:00 WBC RBC Hgb Hct MCHC RDW Plt Count Seg Neuts % (Manual) Lymphocytes % (Manual) Seg Neutrophils # Man Lymphocytes # (Manual) Monocytes # (Manual) PT INR APTT Heparin Anti-Xa Level ABG pH ABG pO2 ABG HCO3 ABG O2 Saturation ABG Base Excess ABG Hemoglobin Oxyhemoglobin Sodium Potassium Chloride Carbon Dioxide 15 L BUN 65 H Creatinine 5.1 H Glucose 117 H POC Glucose 112 H Calcium 7.7 L Phosphorus 6.40 H Magnesium 1.30 L Alkaline Phosphatase Albumin Triglycerides Lipase Urine Creatinine Urine Total Protein Crossmatch 02/18/20 02/18/20 02/18/20 09:00 12:41 17:58 WBC 14.9 H RBC 2.99 L Hgb 8.8 L Hct 27.1 L MCHC RDW 15.8 H Plt Count 131 L Seg Neuts % (Manual) Lymphocytes % (Manual) Seg Neutrophils # Man Lymphocytes # (Manual) Monocytes # (Manual) PT INR APTT Heparin Anti-Xa Level ABG pH ABG pO2 ABG HCO3 ABG O2 Saturation ABG Base Excess ABG Hemoglobin Oxyhemoglobin Sodium Potassium Chloride Carbon Dioxide BUN Creatinine Glucose POC Glucose 140 H 141 H Calcium Phosphorus Magnesium Alkaline Phosphatase Albumin Triglycerides Lipase Urine Creatinine Urine Total Protein Crossmatch 02/18/20 02/19/20 02/19/20 23:06 03:50 04:30 WBC RBC Hgb Hct MCHC RDW Plt Count Seg Neuts % (Manual) Lymphocytes % (Manual) Seg Neutrophils # Man Lymphocytes # (Manual) Monocytes # (Manual) PT INR APTT Heparin Anti-Xa Level ABG pH 7.243 L ABG pO2 75.3 L ABG HCO3 11.8 L ABG O2 Saturation 94.0 L ABG Base Excess -14.1 L ABG Hemoglobin 9.6 L Oxyhemoglobin 91.8 L Sodium 136 L Potassium Chloride Carbon Dioxide 12 L BUN 76 H Creatinine 5.2 H Glucose 228 H POC Glucose 212 H Calcium Phosphorus Magnesium Alkaline Phosphatase Albumin Triglycerides Lipase Urine Creatinine Urine Total Protein Crossmatch 02/19/20 02/19/20 02/19/20 04:30 04:30 06:19 WBC 19.8 H RBC 3.19 L Hgb 9.1 L Hct 28.9 L MCHC RDW 15.5 H Plt Count Seg Neuts % (Manual) 86.0 H Lymphocytes % (Manual) 5.0 L Seg Neutrophils # Man 17.0 H Lymphocytes # (Manual) 1.0 L Monocytes # (Manual) 1.4 H PT INR APTT Heparin Anti-Xa Level ABG pH ABG pO2 ABG HCO3 ABG O2 Saturation ABG Base Excess ABG Hemoglobin Oxyhemoglobin Sodium Potassium Chloride Carbon Dioxide BUN Creatinine Glucose POC Glucose 253 H Calcium Phosphorus 8.00 H D Magnesium Alkaline Phosphatase Albumin Triglycerides Lipase Urine Creatinine Urine Total Protein Crossmatch
[2020-02-19] MEDS: AMIODARONE 900 MG in DEXTROSE 5% IN WATER 482 ML IV SCH (11:31)
[2020-02-19] MEDS ORDERED: FUROSEMIDE 100 MG/10 ML INJ IV ONE (11:52)
[2020-02-19] MEDS ORDERED: HYDROmorphone 1 MG/1 ML INJ IV ONE (11:53)
--- NOTE | 2020-02-19 12:09 | Progress Note ---
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 * leucocytosis * type 2 DM--uncontrolled * Acidosis * Hypokalemia * Hypocalcemia * Anemia Plan: * Creatinine stable today at 5.1/5.2 and remains non-oliguric; no indication for renal replacement therapy emergently * S/p IV Lasix 80mg yesterday with 1.4L urine output; will administer 100mg IV today to promote further diuresis, may also help acidosis * Acidosis worsening, will provide 1 amp bicarb push in attempt to minimize IVF; will recheck BMP this afternoon and order repeat amp as needed * Remains at high risk for needing renal replacement therapy; discussed this with patient's granddaughter and explained that will continue medical management of acidosis and volume for now, but if remains refractory, will plan for dialysis catheter replacement and initiation of renal replacement therapy tomorrow. Verbal consent for dialysis obtained * Continue iv abx per ID recs * surgery note reviewed, s/p surgery, OR note reviewed, input appreciated * PRBC transfusion prn per primary * Daily lytes; strict i/os * Avoid nephrotoxins * CT noted, no stones or hydronephrosis * vasopressors prn Thank for involving in the care of this critically ill patient. We will follow closely with you; please do not hesitate to call me on my cell at for any renal related issues. High risk for decompensation and needing renal replacement therapy. Subjective Date of service: 02/19/20 Principal diagnosis: Ischemic Bowel Interval history: Off sedation this AM, opening eyes. Failed SBT Objective - Exam Narrative Exam: Gen: Intubated, opens eyes ENT: ETT in place CV: s1, S2, on dilt gtt Resp: on vent Abd: soft Ext: no c/c/e : corcoran with clear yellow urine Neuro: opens eye spontaneously - Vital Signs Vital signs: Vital Signs - 12hr 02/19/20 02/19/20 02/19/20 00:14 00:30 01:00 Temperature Pulse Rate 116 H 117 H 116 H Pulse Rate [ From Monitor] Respiratory 16 19 Rate Blood Pressure 123/69 137/69 141/66 O2 Sat by Pulse 95 95 93 Oximetry 02/19/20 02/19/20 02/19/20 01:30 02:00 02:30 Temperature Pulse Rate 95 H 94 H 98 H Pulse Rate [ From Monitor] Respiratory 13 13 17 Rate Blood Pressure 115/52 114/58 130/72 O2 Sat by Pulse 95 95 95 Oximetry 02/19/20 02/19/20 02/19/20 03:00 03:30 03:42 Temperature Pulse Rate 109 H 108 H 108 H Pulse Rate [ From Monitor] Respiratory 18 14 Rate Blood Pressure 109/65 123/77 123/77 O2 Sat by Pulse 94 94 95 Oximetry 02/19/20 02/19/20 02/19/20 04:00 04:30 05:00 Temperature 98 F Pulse Rate 125 H 125 H 113 H Pulse Rate [ 125 H From Monitor] Respiratory 16 12 12 Rate Blood Pressure 135/77 125/78 123/71 O2 Sat by Pulse 94 93 93 Oximetry 02/19/20 02/19/20 02/19/20 05:30 05:37 06:00 Temperature Pulse Rate 127 H 98 H Pulse Rate [ From Monitor] Respiratory 9 L 16 21 Rate Blood Pressure 146/67 142/71 O2 Sat by Pulse 94 Oximetry 02/19/20 02/19/20 02/19/20 06:07 06:30 07:00 Temperature Pulse Rate 105 H 121 H Pulse Rate [ From Monitor] Respiratory 18 16 17 Rate Blood Pressure 131/76 153/75 O2 Sat by Pulse 97 96 Oximetry 02/19/20 02/19/20 02/19/20 07:10 07:30 07:59 Temperature 98.1 F Pulse Rate 112 H 112 H Pulse Rate [ From Monitor] Respiratory 17 Rate Blood Pressure 160/82 149/81 O2 Sat by Pulse 97 97 Oximetry 02/19/20 02/19/20 02/19/20 08:00 08:30 08:38 Temperature Pulse Rate 98 H 121 H 120 H Pulse Rate [ 102 H From Monitor] Respiratory 16 16 Rate Blood Pressure 149/81 147/75 165/99 O2 Sat by Pulse 97 97 Oximetry 02/19/20 02/19/20 02/19/20 09:00 09:30 10:00 Temperature Pulse Rate 96 H 90 88 Pulse Rate [ From Monitor] Respiratory 14 16 13 Rate Blood Pressure 129/75 122/70 148/94 O2 Sat by Pulse 97 98 98 Oximetry 02/19/20 02/19/20 02/19/20 10:30 11:00 11:25 Temperature Pulse Rate 105 H 105 H 97 H Pulse Rate [ From Monitor] Respiratory 17 16 Rate Blood Pressure 132/45 141/70 154/73 O2 Sat by Pulse 96 98 98 Oximetry - Lab 02/19/20 04:30 02/19/20 04:30 Most recent lab results ABG pH 7.243 pH Units (7.350-7.450) L 02/19/20 03:50 ABG pCO2 28.0 mm Hg 02/19/20 03:50 ABG pO2 75.3 mm Hg (80.0-90.0) L 02/19/20 03:50 ABG HCO3 11.8 mmol/L (20.0-26.0) L 02/19/20 03:50 ABG O2 Saturation 94.0 % (95.0-99.0) L 02/19/20 03:50 Calcium 8.8 mg/dL (8.4-10.2) 02/19/20 04:30 Phosphorus 8.00 mg/dL (2.5-4.5) H D 02/19/20 04:30 Magnesium 1.90 mg/dL (1.7-2.3) 02/19/20 04:30 Urine Creatinine 35.3 mg/dL (0.1-20.0) H 02/12/20 Unknown Urine Total Protein 796 mg/dL (5-11.8) H 02/12/20 Unknown Medications & Allergies - Medications Allergies/Adverse Reactions: Allergies clindamycin Allergy (Verified 02/11/20 14:52) Hives Home Medications: Home Medications Medication Instructions Recorded Confirmed Last Taken Type Doxazosin [Cardura] 4 mg PO QDAY 02/11/20 02/11/20 02/10/20 History Hydralazine HCl 50 mg PO DAILY 02/11/20 02/11/20 02/10/20 History Metoprolol 25 mg PO DAILY 02/11/20 02/11/20 02/10/20 History Sertraline [Zoloft] 50 mg PO QDAY 02/11/20 02/11/20 02/10/20 History amLODIPine [Norvasc] 10 mg PO DAILY 02/11/20 02/11/20 02/10/20 History glipiZIDE 10 mg PO BID 02/11/20 02/11/20 02/10/20 History Active Medications: Generic Name Dose Route Start Last Admin Trade Name Reina PRN Reason Stop Dose Admin Acetaminophen 650 mg 02/11/20 19:01 02/12/20 17:00 Tylenol PO 650 mg Q4H PRN Administration Pain MILD(1-3)/Fever >100.5/ADAMS Famotidine 20 mg 02/17/20 10:00 02/19/20 09:51 Pepcid IV 20 mg DAILY NADER Administration Hydromorphone HCl 1 mg 02/14/20 13:00 02/19/20 08:56 Dilaudid IV 1 mg Q3H PRN Administration Pain , Severe (7-10) Hydrophilic Ointment 1 applic 02/13/20 19:41 Vaseline Lip Therapy TP Q2HR PRN Dry Lips Metronidazole 500 mg in 100 mls @ 100 mls/hr 02/12/20 15:40 02/19/20 05:37 Flagyl 500 Mg/100 Ml IV 02/22/20 15:39 100 mls/hr Q8HR NADER Administration Heparin Sodium/Sodium Chloride 25,000 unit in 500 mls @ 20 mls/hr 02/13/20 20:00 02/19/20 08:42 Heparin/ 0.45% Nacl-25,000 Unit/500 Ml IV 1,150 units/hr TITR NADER 23 mls/hr Administration Protocol 1,000 UNITS/HR Cefepime HCl 1 gm in 100 mls @ 200 mls/hr 02/16/20 10:00 02/19/20 09:51 Cefepime/Ns 1 Gm/100 Ml IV 02/22/20 10:29 200 mls/hr Q24HR NADER Administration Protocol Diltiazem HCl 100 mg in 100 mls @ 2.5 mls/hr 02/16/20 12:19 02/18/20 11:30 Cardizem/D5w 100mg/100ml IV 2.5 mg/hr TITR NADER 2.5 mls/hr Administration 2.5 MG/HR Amino Acids/Electrolytes/Dextrose 3,000 mls @ 84 mls/hr 02/18/20 20:00 02/18/20 20:45 Tpn Adult IV 02/19/20 19:59 84 mls/hr DAILY@2000 NADER Administration Protocol Amiodarone HCl 900 mg/ 500 mls @ 33.333 mls/hr 02/19/20 11:00 02/19/20 11:31 Dextrose IV 1 mg/min DIRECT NADER 33.333 mls/hr Administration Protocol 1 MG/MIN Insulin Glargine 5 units 02/19/20 22:00 Lantus SUB-Q QHS NADER Insulin Human Lispro 0 unit 02/13/20 12:00 02/19/20 11:31 Humalog SUB-Q 6 unit Q6HR [facility] Administration Protocol Labetalol HCl 20 mg 02/13/20 18:00 02/19/20 08:38 Labetalol IV 20 mg Q4H PRN Administration SBP >150 Metoprolol Tartrate 2.5 mg 02/13/20 18:00 02/18/20 04:41 Metoprolol IV 2.5 mg Q6HR PRN Administration HR >130 Multi-Ingred Cream/Lotion/Oil/Oint 1 applic 02/13/20 19:41 Artificial Tears Ophth Oint OU Q4HR PRN Dry Eye(s) Ondansetron HCl 4 mg 02/11/20 19:01 02/12/20 05:44 Zofran IV 4 mg Q8H PRN Administration Nausea And Vomiting Sodium Chloride 10 ml 02/11/20 22:00 02/19/20 09:51 Sodium Chloride Flush Syringe 10 Ml IV 10 ml BID NADER Administration Sodium Chloride 10 ml 02/11/20 19:01 02/15/20 22:43 Sodium Chloride Flush Syringe 10 Ml IV 10 ml PRN PRN Administration LINE FLUSH Sodium Chloride 5 ml 02/13/20 19:41 Nacl 0.9% 500 Ml IV DIRECT PRN ARTERIAL AIRPLANE PATROL PILOT
--- NOTE | 2020-02-19 12:21 | Progress Note ---
Assessment and Plan Assessment and plan: Sepsis. Etiology due to ischemic bowel. Acute hypoxic resp failure. Pulm following. 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 Pt. is s/p Exploratory laparotomy, extensive small bowel resection, partial colon resection, placement of abthera vac on 02/13/2020. S/p exploratory laparotomy, enterocolonic anastamosis, closure of abdomen, application of wound vac on 02/15 Presumed infected renal cyst. ID following Diabetes Mellitus type 2. Tight glycemic control, accucheks and ssri Diarrhea- resolved prior to presentation, doubt C diff, likely from ischemic bowel. LITZY on CKD: Renally adjust antibiotics, worsening 02/18/2020. Patient still with oral ETT on mechanical ventilation. Patient currently with PSVT trials, FiO2 30% pressure support 12 and PEEP 6. Continue to wean as tolerated. Consider extubation today. However, chest x-ray today reveals developing right pleural effusion. Continue wound care per wound team. Continue incisional wound VAC. Continue strict n.p.o. and NGT to low intermittent suction. Continue IV antibiotics per ID 02/19/2020. Patient currently with AC mode ventilation rate 16, tidal volume 450, FiO2 30%, PEEP 6. Continue to wean per protocol and pulmonary recommendations. Patient failed PSV secondary to tachypnea today. Continue wound care per wound team. Continue incisional wound VAC. Continue strict n.p.o. and NGT to low intermittent suction. Continue IV antibiotics per ID. Creatinine stable today at 5.1/5.2 and remains non-oliguric; no indication for renal replacement therapy emergently per nephrology. Nephrology to administer 100 mg of IV Lasix today to further promote diuresis and help with metabolic acidosis. Remains at high risk for needing renal replacement therapy The high probability of a clinically significant, sudden or life threatening deterioration of the [respiratory] system(s) required my full and direct attention, intervention and personal management. The aggregate critical care time was [34] minutes. This time is in addition to time spent performing repor lesli procedures but includes the following: [x] Data Review and interpretation [x] Patient assessment and monitoring of vital signs [x] Documentation [x] Medication orders and management History Interval history: No new issues Hospitalist Physical - Constitutional Vitals: Temp Pulse Resp BP Pulse Ox 98.1 F 97 H 16 154/73 98 02/19/20 07:10 02/19/20 11:25 02/19/20 11:00 02/19/20 11:25 02/19/20 11:25 General appearance: Present: other (Intubated) - EENT Eyes: Present: PERRL, EOM intact ENT: hearing intact, clear oral mucosa, dentition normal - Neck Neck: Present: supple, normal ROM - Respiratory Respiratory effort: normal Respiratory: bilateral: CTA - Cardiovascular Rhythm: regular Heart Sounds: Present: S1 & S2. Absent: gallop, rub - Extremities Extremities: no ischemia, No edema, Full ROM - Abdominal General gastrointestinal: soft, non-tender, non-distended, normal bowel sounds - Integumentary Integumentary: Present: clear, warm, dry - Neurologic Neurologic: CNII-XII intact, moves all extremities HEART Score - HEART Score Troponin: Troponin T < 0.010 ng/mL (0.00-0.029) 02/11/20 15:27 Results - Labs CBC & Chem 7: 02/19/20 04:30 02/19/20 04:30 Labs: Laboratory Last Values WBC 19.8 K/mm3 (4.5-11.0) H 02/19/20 04:30 RBC 3.19 M/mm3 (3.65-5.03) L 02/19/20 04:30 Hgb 9.1 gm/dl (10.1-14.3) L 02/19/20 04:30 Hct 28.9 % (30.3-42.9) L 02/19/20 04:30 MCV 91 fl (79-97) 02/19/20 04:30 MCH 29 pg (28-32) 02/19/20 04:30 MCHC 32 % (30-34) 02/19/20 04:30 RDW 15.5 % (13.2-15.2) H 02/19/20 04:30 Plt Count 175 K/mm3 (140-440) 02/19/20 04:30 Add Manual Diff Complete 02/19/20 04:30 Total Counted 100 02/19/20 04:30 Seg Neutrophils % Lumber Straightened 02/14/20 04:29 Seg Neuts % (Manual) 86.0 % (40.0-70.0) H 02/19/20 04:30 Band Neutrophils % 1.0 % 02/19/20 04:30 Lymphocytes % (Manual) 5.0 % (13.4-35.0) L 02/19/20 04:30 Reactive Lymphs % (Man) 0 % 02/19/20 04:30 Monocytes % (Manual) 7.0 % (0.0-7.3) 02/19/20 04:30 Eosinophils % (Manual) 0 % (0.0-4.3) 02/19/20 04:30 Basophils % (Manual) 0 % (0.0-1.8) 02/19/20 04:30 Metamyelocytes % 1.0 % 02/19/20 04:30 Myelocytes % 0 % 02/19/20 04:30 Promyelocytes % 0 % 02/19/20 04:30 Blast Cells % 0 % 02/19/20 04:30 Nucleated RBC % Not Reportable 02/19/20 04:30 Seg Neutrophils # Man 17.0 K/mm3 (1.8-7.7) H 02/19/20 04:30 Band Neutrophils # 0.2 K/mm3 02/19/20 04:30 Lymphocytes # (Manual) 1.0 K/mm3 (1.2-5.4) L 02/19/20 04:30 Abs React Lymphs (Man) 0.0 K/mm3 02/19/20 04:30 Monocytes # (Manual) 1.4 K/mm3 (0.0-0.8) H 02/19/20 04:30 Eosinophils # (Manual) 0.0 K/mm3 (0.0-0.4) 02/19/20 04:30 Basophils # (Manual) 0.0 K/mm3 (0.0-0.1) 02/19/20 04:30 Metamyelocytes # 0.2 K/mm3 02/19/20 04:30 Myelocytes # 0.0 K/mm3 02/19/20 04:30 Promyelocytes # 0.0 K/mm3 02/19/20 04:30 Blast Cells # 0.0 K/mm3 02/19/20 04:30 WBC Morphology Not Reportable 02/19/20 04:30 Hypersegmented Neuts Few 02/19/20 04:30 Hyposegmented Neuts Not Reportable 02/19/20 04:30 Hypogranular Neuts Not Reportable 02/19/20 04:30 Smudge Cells Not Reportable 02/19/20 04:30 Toxic Granulation Not Reportable 02/19/20 04:30 Toxic Vacuolation Not Reportable 02/19/20 04:30 Dohle Bodies Not Reportable 02/19/20 04:30 Pelger-Huet Anomaly Not Reportable 02/19/20 04:30 Jyoti Rods Not Reportable 02/19/20 04:30 Platelet Estimate Cons 02/19/20 04:30 Clumped Platelets Not Reportable 02/19/20 04:30 Plt Clumps, EDTA Not Reportable 02/19/20 04:30 Large Platelets Not Reportable 02/19/20 04:30 Giant Platelets Not Reportable 02/19/20 04:30 Platelet Satelliting Not Reportable 02/19/20 04:30 Plt Morphology Comment Not Reportable 02/19/20 04:30 RBC Morphology Not Reportable 02/19/20 04:30 Dimorphic RBCs Not Reportable 02/19/20 04:30 Polychromasia Not Reportable 02/19/20 04:30 Hypochromasia Few 02/19/20 04:30 Poikilocytosis Not Reportable 02/19/20 04:30 Anisocytosis Not Reportable 02/19/20 04:30 Microcytosis Not Reportable 02/19/20 04:30 Macrocytosis Not Reportable 02/19/20 04:30 Spherocytes Rare 02/19/20 04:30 Pappenheimer Bodies Not Reportable 02/19/20 04:30 Sickle Cells Not Reportable 02/19/20 04:30 Target Cells Not Reportable 02/19/20 04:30 Tear Drop Cells Not Reportable 02/19/20 04:30 Ovalocytes Few 02/19/20 04:30 Helmet Cells Not Reportable 02/19/20 04:30 Garcia-Melmore Bodies Not Reportable 02/19/20 04:30 Amado Rings Not Reportable 02/19/20 04:30 Andrea Cells Few 02/19/20 04:30 Bite Cells Not Reportable 02/19/20 04:30 Crenated Cell Not Reportable 02/19/20 04:30 Elliptocytes Not Reportable 02/19/20 04:30 Acanthocytes (Spur) Not Reportable 02/19/20 04:30 Rouleaux Not Reportable 02/19/20 04:30 Hemoglobin C Crystals Not Reportable 02/19/20 04:30 Schistocytes Not Reportable 02/19/20 04:30 Malaria parasites Not Reportable 02/19/20 04:30 Babar Bodies Not Reportable 02/19/20 04:30 Hem Pathologist Commnt No 02/19/20 04:30 PT 16.9 Sec. (12.2-14.9) H 02/13/20 20:10 INR 1.41 (0.87-1.13) H 02/13/20 20:10 APTT 35.3 Sec. (24.2-36.6) 02/13/20 20:10 Heparin Anti-Xa Level 0.30 U.I./ml (0.3-0.7) 02/19/20 02:24 ABG pH 7.243 pH Units (7.350-7.450) L 02/19/20 03:50 ABG pCO2 28.0 mm Hg 02/19/20 03:50 ABG pO2 75.3 mm Hg (80.0-90.0) L 02/19/20 03:50 ABG HCO3 11.8 mmol/L (20.0-26.0) L 02/19/20 03:50 ABG O2 Saturation 94.0 % (95.0-99.0) L 02/19/20 03:50 ABG O2 Content 12.5 (0.0-44) 02/19/20 03:50 ABG Base Excess -14.1 mmol/L (-2.0-3.0) L 02/19/20 03:50 ABG Hemoglobin 9.6 gm/dl (12.0-16.0) L 02/19/20 03:50 ABG Carboxyhemoglobin 1.5 % (0.0-5.0) 02/19/20 03:50 ABG Methemoglobin 0.9 % (0.0-1.5) 02/19/20 03:50 Oxyhemoglobin 91.8 % (95.0-99.0) L 02/19/20 03:50 FiO2 30 % 02/19/20 03:50 Sodium 136 mmol/L (137-145) L 02/19/20 04:30 Potassium 4.1 mmol/L (3.6-5.0) 02/19/20 04:30 Chloride 100.3 mmol/L (98-107) 02/19/20 04:30 Carbon Dioxide 12 mmol/L (22-30) L 02/19/20 04:30 Anion Gap 28 mmol/L 02/19/20 04:30 BUN 76 mg/dL (7-17) H 02/19/20 04:30 Creatinine 5.2 mg/dL (0.7-1.2) H 02/19/20 04:30 Estimated GFR 8 ml/min 02/19/20 04:30 BUN/Creatinine Ratio 15 % 02/19/20 04:30 Glucose 228 mg/dL (65-100) H 02/19/20 04:30 POC Glucose 253 (70-105) H 02/19/20 06:19 Ketones Quantitative Negative (Negative) 02/13/20 14:51 Lactic Acid 0.70 mmol/L (0.7-2.0) 02/14/20 Unknown Calcium 8.8 mg/dL (8.4-10.2) 02/19/20 04:30 Phosphorus 8.00 mg/dL (2.5-4.5) H D 02/19/20 04:30 Magnesium 1.90 mg/dL (1.7-2.3) 02/19/20 04:30 Total Bilirubin 0.20 mg/dL (0.1-1.2) 02/12/20 04:58 Direct Bilirubin < 0.2 mg/dL (0-0.2) 02/11/20 15:27 Indirect Bilirubin 0.2 mg/dL 02/11/20 15:27 AST 16 units/L (5-40) 02/12/20 04:58 ALT 24 units/L (7-56) 02/12/20 04:58 Alkaline Phosphatase 127 units/L (35-129) 02/12/20 04:58 Troponin T < 0.010 ng/mL (0.00-0.029) 02/11/20 15:27 Total Protein 7.0 g/dL (6.3-8.2) 02/12/20 04:58 Albumin 3.5 g/dL (3.9-5) L 02/12/20 04:58 Albumin/Globulin Ratio 1.0 % 02/12/20 04:58 Triglycerides 238 mg/dL (2-149) H 02/17/20 03:45 Lipase 60 units/L (13-60) 02/13/20 14:51 Urine Color Yellow (Yellow) 02/11/20 16:32 Urine Turbidity Clear (Clear) 02/11/20 16:32 Urine pH 6.0 (5.0-7.0) 02/11/20 16:32 Ur Specific [place] 1.013 (1.003-1.030) 02/11/20 16:32 Urine Protein >500 mg/dL (Negative) 02/11/20 16:32 Urine Glucose (UA) >=500 mg/dL (Negative) 02/11/20 16:32 Urine Ketones Tr mg/dL (Negative) 02/11/20 16:32 Urine Blood Sm (Negative) 02/11/20 16:32 Urine Nitrite Neg (Negative) 02/11/20 16:32 Urine Bilirubin Neg (Negative) 02/11/20 16:32 Urine Urobilinogen < 2.0 mg/dL (<2.0) 02/11/20 16:32 Ur Leukocyte Esterase Mod (Negative) 02/11/20 16:32 Urine WBC (Auto) 2.0 /HPF (0.0-6.0) 02/11/20 16:32 Urine RBC (Auto) 2.0 /HPF (0.0-6.0) 02/11/20 16:32 U Epithel Cells (Auto) 2.0 /HPF (0-13.0) 02/11/20 16:32 Urine Bacteria (Auto) 1+ /HPF (Negative) 02/11/20 16:32 Urine Eosinophils None seen (None Seen) 02/12/20 Unknown Urine Creatinine 35.3 mg/dL (0.1-20.0) H 02/12/20 Unknown Protein/Creatinin Ratio 22.55 02/12/20 Unknown Urine Total Protein 796 mg/dL (5-11.8) H 02/12/20 Unknown Blood Type O NEGATIVE 02/16/20 08:39 Antibody Screen Negative 02/16/20 08:39 Crossmatch See Detail 02/16/20 08:39 - Diagnostic Impressions Diagnostic Impressions: Echocardiogram 02/13/20 18:02 Transthoracic Echocardiogram Indication: Afib BP: 101/70 HR: 128 Findings Left Ventricle: The left ventricular chamber size is normal. Mild to moderate concentric left ventricular hypertrophy is observed. Global left ventricular wall motion and contractility are within normal limits. Global left ventricular systolic function is normal. The estimated ejection fraction is 60-65%. Left Atrium: The left atrium is mild to moderately dilated. Right Ventricle: The right ventricular cavity size is normal. The right ventricular global systolic function is normal. Right Atrium: The right atrium appears normal. The interatrial septum appears normal. Aortic Valve: The aortic valve structure is normal. The aortic valve leaflets are mildly thickened. There is no evidence of aortic regurgitation. There is no evidence of aortic stenosis. Mitral Valve: The mitral valve leaflets appear normal. There is no evidence of mitral regurgitation. There is no evidence of mitral stenosis. Tricuspid Valve: The tricuspid valve leaflets are normal. There is mild to moderate tricuspid regurgitation. The right ventricular systolic pressure is calculated at 39 mmHg. There is evidence of pulmonary hypertension. There is no tricuspid stenosis. Pulmonic Valve: The pulmonic valve appears normal. There is no evidence of pulmonic regurgitation. There is no pulmonic stenosis. Pericardium: A pericardial effusion is visualized. There is a minimial pericardial effusion. A left pleural effusion is present. There is a moderate pleural effusion. Aorta: There is no dilatation of the ascending aorta. There is no dilatation of the aortic arch. There is no dilatation of the descending thoracic aorta. There is no dilatation of the aortic root. Venous: The inferior vena cava appears normal in size. Measurements Chambers 2D Name Value Normal Range IVSd (2D) 1.34 cm (0.6 - 1.1) LVPWd (2D) 1.35 cm (0.6 - 1.1) LVIDd (2D) 4.72 cm (3.7 - 5.6) LVIDs (2D) 3.28 cm (2 - 3.8) LV FS (2D) 30.38 % - EF Teichholz (2D) 57.75 % - Ao root diameter (2D) 3.02 cm (2 - 3.7) Volumes/Mass Name Value Normal Range LA ESV SP 4CH (A/L) 55.87 ml - LA ESV SP 2CH (A/L) 67.65 ml - LA ESV BP (A/L) 63.67 ml - LA ESV SP 4CH (MOD) 54.25 ml - LA ESV SP 2CH (MOD) 63.2 ml - LA ESV BP (MOD) 60.49 ml - LA ESV BP (MOD) index 34.18 ml/m2 - LV EDV SP 4CH (MOD) 70.96 ml - LV ESV SP 4CH (MOD) 23.49 ml - EF SP 4CH (MOD) 66.89 % - LV EDV SP 2CH (MOD) 61.41 ml - LV ESV SP 2CH (MOD) 27.43 ml - EF SP 2CH (MOD) 55.33 % - LV EDV BP 69.85 ml - LV ESV BP 26.44 ml - BP EF (MOD) 62.14 % - Aortic Valve Name Value Normal Range AV Vmax 1.29 m/sec - AV VTI 18.56 cm - AV peak gradient 6.69 mmHg - AV mean gradient 3.39 mmHg - LVOT diameter 1.95 cm - LVOT Vmax 1.14 m/sec - LVOT VTI 16.24 cm - LVOT peak gradient 5.21 mmHg - LVOT mean gradient 2.04 mmHg - SV LVOT 48.71 ml - TABATHA (continuity Vmax) 2.65 cm2 - TABATHA (continuity VTI) 2.62 cm2 - Ascending Ao 2.96 cm - Tricuspid Valve Name Value Normal Range TR Vmax 2.47 m/sec - TR peak gradient 24 mmHg - RAP 15 mmHg - RVSP 39 mmHg - Pulmonic Valve/Qp:Qs Name Value Normal Range PV Vmax 1.15 m/sec - PV peak gradient 5.33 mmHg - PV acceleration time 68.51 msec - Corcoran/IV: Voiding Method Indwelling Catheter IV Catheter Type [Left Upper PICC Line arm] IV Catheter Type [Right INT / Saline Lock Antecubital] IV Catheter Type [Right Peripheral IV Forearm] IV Catheter Type [Left Forearm INT / Saline Lock ] IV Catheter Type [Right Hand] Peripheral IV Active Medications - Current Medications Current Medications: Generic Name Dose Route Start Last Admin Trade Name Freq PRN Reason Stop Dose Admin Acetaminophen 650 mg 02/11/20 19:01 02/12/20 17:00 Tylenol PO 650 mg Q4H PRN Administration Pain MILD(1-3)/Fever >100.5/ADAMS Famotidine 20 mg 02/17/20 10:00 02/19/20 09:51 Pepcid IV 20 mg DAILY NADER Administration Hydromorphone HCl 1 mg 02/14/20 13:00 02/19/20 08:56 Dilaudid IV 1 mg Q3H PRN Administration Pain , Severe (7-10) Hydrophilic Ointment 1 applic 02/13/20 19:41 Vaseline Lip Therapy TP Q2HR PRN Dry Lips Metronidazole 500 mg in 100 mls @ 100 mls/hr 02/12/20 15:40 02/19/20 05:37 Flagyl 500 Mg/100 Ml IV 02/22/20 15:39 100 mls/hr Q8HR NADER Administration Heparin Sodium/Sodium Chloride 25,000 unit in 500 mls @ 20 mls/hr 02/13/20 20:00 02/19/20 08:42 Heparin/ 0.45% Nacl-25,000 Unit/500 Ml IV 1,150 units/hr TITR NADER 23 mls/hr Administration Protocol 1,000 UNITS/HR Cefepime HCl 1 gm in 100 mls @ 200 mls/hr 02/16/20 10:00 02/19/20 09:51 Cefepime/Ns 1 Gm/100 Ml IV 02/22/20 10:29 200 mls/hr Q24HR NADER Administration Protocol Diltiazem HCl 100 mg in 100 mls @ 2.5 mls/hr 02/16/20 12:19 02/18/20 11:30 Cardizem/D5w 100mg/100ml IV 2.5 mg/hr TITR NADER 2.5 mls/hr Administration 2.5 MG/HR Amino Acids/Electrolytes/Dextrose 3,000 mls @ 84 mls/hr 02/18/20 20:00 02/18/20 20:45 Tpn Adult IV 02/19/20 19:59 84 mls/hr [email or web address] Administration Protocol Amiodarone HCl 900 mg/ 500 mls @ 33.333 mls/hr 02/19/20 11:00 02/19/20 11:31 Dextrose IV 1 mg/min DIRECT NADER 33.333 mls/hr Administration Protocol 1 MG/MIN Amino Acids/Electrolytes/Dextrose 2,016 mls @ 84 mls/hr 02/19/20 20:00 Tpn Adult IV 02/20/20 19:59 [email or web address] Protocol Insulin Glargine 5 units 02/19/20 22:00 Lantus SUB-Q QHS NADER Insulin Human Lispro 0 unit 02/13/20 12:00 02/19/20 11:31 Humalog SUB-Q 6 unit Q6HR NADER Administration Protocol Labetalol HCl 20 mg 02/13/20 18:00 02/19/20 08:38 Labetalol IV 20 mg Q4H PRN Administration SBP >150 Metoprolol Tartrate 2.5 mg 02/13/20 18:00 02/18/20 04:41 Metoprolol IV 2.5 mg Q6HR PRN Administration HR >130 Multi-Ingred Cream/Lotion/Oil/Oint 1 applic 02/13/20 19:41 Artificial Tears Ophth Oint OU Q4HR PRN Dry Eye(s) Ondansetron HCl 4 mg 02/11/20 19:01 02/12/20 05:44 Zofran IV 4 mg Q8H PRN Administration Nausea And Vomiting Sodium Chloride 10 ml 02/11/20 22:00 02/19/20 09:51 Sodium Chloride Flush Syringe 10 Ml IV 10 ml BID NADER Administration Sodium Chloride 10 ml 02/11/20 19:01 02/15/20 22:43 Sodium Chloride Flush Syringe 10 Ml IV 10 ml PRN PRN Administration LINE FLUSH Sodium Chloride 5 ml 02/13/20 19:41 Nacl 0.9% 500 Ml IV DIRECT PRN ARTERIAL GROUNDS PERSON Nutrition/Malnutrition Assess - Dietary Evaluation Nutrition/Malnutrition Findings: Nutrition Notes Start: 02/14/20 09:49 Freq: Status: Active Protocol: Document 02/19/20 10:22 LM (Rec: 02/19/20 10:32 LM [email or web address]) Nutrition Notes Initial or Follow up Reassessment Current Diagnosis Diabetes,Hypertension, Hyperlipidemia Other Pertinent Diagnosis LITZY/ATN, PKD, ischemic bowel with gangrene s/p exp lap, accelerated HTN Current Diet PPN at 84ml/hr Labs/Tests Na 136 Phos 8 BG 228 Pertinent Medications Humalog Height 5 ft 5 in Weight 81 kg [place] Body Weight (kg) 56.81 BMI 29.7 Weight change and time frame Wt change noted. Subjective/Other Information PPN day 2. Per chart pt's corcoran was out and has fluid overload Percent of energy/protein needs met: 45%/89% Burn Absent Trauma Absent Current % PO Negligible Minimum of two criteria No #1 Nutrition Diagnosis Altered GI function Diagnosis Progress(for reassessment Continues documentation) Is patient on ventilator? Yes Is Patient Ambulatory and/or Out of Bed No REE-([facility]-confined to bed) [phone] Calculation Used for Recommendations [facility] Additional Notes Pro needs 1.2-2g/k-140g/ day Fluid needs 1ml/kcal Nutrition Intervention Nutrition Support: PPN at 84nl/hr: 6.2% dextrose, MVI, MTE, thiamine Chloride/acetate: 0/100 Kcal 725 Protein (gm) 75 Fluid (mL) 2,016 Goal #1 Meet 75% of energy and protein needs Anticipated Discharge Needs: Unable to identify at this time Follow-Up By: 02/20/20 Additional Comments Labs in AM: BMP, Mg, Phos
--- NOTE | 2020-02-19 12:23 | Progress Note ---
Assessment and Plan 74-year-old female status post 1. Exploratory laparotomy, enterocolonic anastamosis, closure of abdomen, application of wound vac, POD 3 2. Exploratory laparotomy, extensive small bowel resection, partial colon resection, placement of abthera vac, placement of right radial arterial line, 02/13/20 1. bowel ischemia with gangrene 2. sepsis 3. LITZY 4. Afib with RVR 5. Tobacco dependence CXR 02/19/20 - significant improvement in pleuroparenchymal disease Pt currently hemodynamically stable. Hypertensive. Abdominal exam is benign and wound is clean. Plan: 1. neuro - Continue as needed pain control. Pt off sedation but still with AMS. 2. CV - cardiology on board for Afib. H/H stable. continue anticoagulation 3. Resp - vent management per ICU team, extubate when criteria met. 4. GI - Strict NPO, NGT to LIWS - output appears to be less but still bilious - pt having bowel function, continue incisional wound VAC - changed today with winding rack operator. GI ppx - protonix IV 5. - continue corcoran catheter for strict I/Os. Nephrology on board. Monitor leather currier. Worsening metabolic acidosis and leukocytosis. Obtain UA. 6. ID - continue abx per ID. leukocytosis trending up - will obtain venous duplex b/l LE, CT scan C/A/P. D/w Dr. Acosta, will obtain bl cx, Cdiff, and add fluconazole 7. Endo - strict glucose control 8. Musc - turning q2 as per protocol, skin breakdown precautions, SCDs 9. FEN - NPO, IVF, replace lytes as needed. Patient has PICC line, dietitian consulted for TPN. Resumption of p.o. diet pending patient's clinical progress. Discussed with Dr. Cervantes and Dr. Acosta. Facilities Painter notes reviewed and recs appreciated Thank you, please call with questions. Subjective Date of service: 02/19/20 Narrative: Pt seen and examined. Restless on vent. Has been off sedation. Failed weaning trial. Has had multiple loose BMs. Objective Vital Signs - 12hr 02/19/20 02/19/20 02/19/20 00:30 01:00 01:30 Temperature Pulse Rate 117 H 116 H 95 H Pulse Rate [ From Monitor] Respiratory 16 19 13 Rate Blood Pressure 137/69 141/66 115/52 O2 Sat by Pulse 95 93 95 Oximetry 02/19/20 02/19/20 02/19/20 02:00 02:30 03:00 Temperature Pulse Rate 94 H 98 H 109 H Pulse Rate [ From Monitor] Respiratory 13 17 18 Rate Blood Pressure 114/58 130/72 109/65 O2 Sat by Pulse 95 95 94 Oximetry 02/19/20 02/19/20 02/19/20 03:30 03:42 04:00 Temperature 98 F Pulse Rate 108 H 108 H 125 H Pulse Rate [ 125 H From Monitor] Respiratory 14 16 Rate Blood Pressure 123/77 123/77 135/77 O2 Sat by Pulse 94 95 94 Oximetry 02/19/20 02/19/20 02/19/20 04:30 05:00 05:30 Temperature Pulse Rate 125 H 113 H 127 H Pulse Rate [ From Monitor] Respiratory 12 12 9 L Rate Blood Pressure 125/78 123/71 146/67 O2 Sat by Pulse 93 93 Oximetry 02/19/20 02/19/20 02/19/20 05:37 06:00 06:07 Temperature Pulse Rate 98 H Pulse Rate [ From Monitor] Respiratory 16 21 18 Rate Blood Pressure 142/71 O2 Sat by Pulse 94 Oximetry 02/19/20 02/19/20 02/19/20 06:30 07:00 07:10 Temperature 98.1 F Pulse Rate 105 H 121 H Pulse Rate [ From Monitor] Respiratory 16 17 Rate Blood Pressure 131/76 153/75 O2 Sat by Pulse 97 96 Oximetry 02/19/20 02/19/20 02/19/20 07:30 07:59 08:00 Temperature Pulse Rate 112 H 112 H 98 H Pulse Rate [ 102 H From Monitor] Respiratory 17 16 Rate Blood Pressure 160/82 149/81 149/81 O2 Sat by Pulse 97 97 97 Oximetry 02/19/20 02/19/20 02/19/20 08:30 08:38 09:00 Temperature Pulse Rate 121 H 120 H 96 H Pulse Rate [ From Monitor] Respiratory 16 14 Rate Blood Pressure 147/75 165/99 129/75 O2 Sat by Pulse 97 97 Oximetry 02/19/20 02/19/20 02/19/20 09:30 10:00 10:30 Temperature Pulse Rate 90 88 105 H Pulse Rate [ From Monitor] Respiratory 16 13 17 Rate Blood Pressure 122/70 148/94 132/45 O2 Sat by Pulse 98 98 96 Oximetry 02/19/20 02/19/20 11:00 11:25 Temperature Pulse Rate 105 H 97 H Pulse Rate [ From Monitor] Respiratory 16 Rate Blood Pressure 141/70 154/73 O2 Sat by Pulse 98 98 Oximetry - General physical appearance Narrative Exam: Gen: Intubated. Opens eyes to verbal command and tracks by trying to move head from side to side. ENT: ETT in place. NGT with bilious drainage CV: s1, S2+ Resp; on vent. No audible wheezes Abd: soft, NT, ND. Wound vac dressing removed. One piece of black sponge removed from wound. Fascia probed with cotton tip applicator and intact throughout incision. No drainage. No odor. Wound bed is clean and dry. New vac sponge applied per winding rack operator and dressing applied - vac connected to suction with good seal Ext: + generalized edema. Skin tear of left hand cleansed with wound cleanser and approximated with steristrips. Wrapped with kerlex. : Corcoran in place with clear yellow urine. Liquid green stool. - Labs 02/19/20 04:30 02/19/20 04:30 Diabetes panel 02/19/20 Range/Units 04:30 Sodium 136 L (137-145) mmol/L Potassium 4.1 (3.6-5.0) mmol/L Chloride 100.3 (98-107) mmol/L Carbon Dioxide 12 L (22-30) mmol/L BUN 76 H (7-17) mg/dL Creatinine 5.2 H (0.7-1.2) mg/dL Glucose 228 H (65-100) mg/dL Calcium 8.8 (8.4-10.2) mg/dL Calcium panel 02/19/20 02/19/20 Range/Units 04:30 04:30 Calcium 8.8 (8.4-10.2) mg/dL Phosphorus 8.00 H D (2.5-4.5) mg/dL Pituitary panel 02/19/20 Range/Units 04:30 Sodium 136 L (137-145) mmol/L Potassium 4.1 (3.6-5.0) mmol/L Chloride 100.3 (98-107) mmol/L Carbon Dioxide 12 L (22-30) mmol/L BUN 76 H (7-17) mg/dL Creatinine 5.2 H (0.7-1.2) mg/dL Glucose 228 H (65-100) mg/dL Calcium 8.8 (8.4-10.2) mg/dL Adrenal panel 02/19/20 Range/Units 04:30 Sodium 136 L (137-145) mmol/L Potassium 4.1 (3.6-5.0) mmol/L Chloride 100.3 (98-107) mmol/L Carbon Dioxide 12 L (22-30) mmol/L BUN 76 H (7-17) mg/dL Creatinine 5.2 H (0.7-1.2) mg/dL Glucose 228 H (65-100) mg/dL Calcium 8.8 (8.4-10.2) mg/dL
[2020-02-19] MEDS: FLUCONAZOLE/NS 100 MG/50 ML 100 MG/50 ML BAG IV SCH (14:17)
[2020-02-19 14:22] LABS: Bacteria,Urine 1+ /HPF (Negative); Bilirubin,Urine NEG (Negative); Blood,Urine LG (Negative); Color,Urine Yellow (Yellow); Mucus,Urine FEW /HPF; Urobilinogen,Urine < 2.0 mg/dL (<2.0)
[2020-02-19 14:42] LABS: Calcium 7.6 mg/dL (8.4-10.2)
[2020-02-19] MEDS ORDERED: DEXTROSE 50% IN WATER (25GM) 50 ML SYRINGE IV PRN (14:58)
[2020-02-19] MEDS: fentaNYL 100 MCG/2 ML INJ IV PRN (15:29)
[2020-02-19] MEDS: fentaNYL DRIP Premix 2,000 MCG/100 ML BAG IV SCH (15:29)
[2020-02-19] MEDS ORDERED: CALCIUM GLUCONATE 2,000 MG in SODIUM CHLORIDE 0.9% 100 ML IV ONE (15:38)
--- NOTE | 2020-02-19 19:15 | Cat Scan Report ---
CT chest wo con, CT abdomen pelvis wo con INDICATION / CLINICAL INFORMATION: worsening leukocytosis. TECHNIQUE: All CT scans at this location are performed using CT dose reduction for ALARA by means of automated e xposure control. COMPARISON: 02/13/2020 CT scan abdomen/pelvis FINDINGS: Chest: Bilateral pleural effusions. Dependent atelectasis in both lower lungs. Mild interstitial disease is seen in the right apex. This could be acute or chronic. Atherosclerotic changes of the thoracic aorta. Coronary artery calcification. No mediastinal adenopathy. ABDOMEN: Cholecystectomy. Small cysts are seen in the right lobe of the liver. No other hepatic abnormality. Pancreas is normal. No splenic enlargement. There are multiple bilateral renal cysts, hyperdense cysts are seen in the left kidney. No hydronephrosis or urinary calculi. Abdominal ascites has decreased since comparison study but there is extensive diffuse subcutaneous em physema consistent with anasarca. No retroperitoneal or mesenteric adenopathy. Atherosclerotic changes are seen in the aortoiliac vessels without aneurysm. Pelvis: Dependent ascites. There is some mild rectal prolapse. Diverticulosis is identified in the sigmoid colon without conclusive evidence of acute diverticulitis . Urinary bladder is catheterized and otherwise unremarkable. Post surgical changes are seen in the right colon. Degenerative changes are identified in the thoracolumbar spine. No acute skeletal abnormality. IMPRESSION: 1. Bilateral pleural effusions. 2. Mild interstitial opacity in the right upper lobe, acute versus chronic. 3. Decreasing abdominal ascites. 4. Diverticulosis of the sigmoid colon. 5. Rectal prolapse. Signer Name: Ruddy Holman MD Signed: 02/19/2020 7:10 PM Workstation Name: [id number]
[2020-02-19] MEDS ORDERED: TOTAL PARENTERAL NUTRITION 2,016 ML IV SCH (20:00)
[2020-02-19] MEDS ORDERED: INSULIN GLARGINE 100 UNITS/ML SUB-Q SCH ×2 (22:00)
[2020-02-20] MEDS: INSULIN LISPRO 100 UNIT/ML SUB-Q SCH ×6 (00:40→23:36)
[2020-02-20] MEDS: dilTIAZem/D5W 100 MG/100 ML BAG IV SCH (01:58)
[2020-02-20] MEDS: fentaNYL DRIP Premix 2,000 MCG/100 ML BAG IV SCH ×3 (01:58→18:12)
[2020-02-20 03:24] LABS: Hematocrit 21.3 % (30.3-42.9); Hemoglobin 7.1 gm/dl (10.1-14.3); Mean Corpuscular HGB Conc 33 % (30-34); Mean Corpuscular Volume 88 fl (79-97); Platelet Count 136 K/mm3 (140-440); Red Blood Count 2.43 M/mm3 (3.65-5.03); Red Cell Distribution Width 14.9 % (13.2-15.2)
[2020-02-20 03:42] LABS: Calcium 8.3 mg/dL (8.4-10.2)
[2020-02-20 04:29] LABS: Band Neutrophils # (Manual) 0.8 K/mm3; Basophils % (Manual) 0 % (0.0-1.8); Total Cells Counted 100
[2020-02-20 04:30] LABS: Anisocytosis RARE
[2020-02-20 04:31] LABS: Hypochromasia Rare; Ovalocytes Rare
[2020-02-20 04:33] LABS: Hypersegmented Neutrophils Rare; Large Platelets Rare; Platelet Estimate Consistent w Auto
[2020-02-20 04:58] LABS: ABG Base Excess -3.8 mmol/L (-2.0-3.0); ABG HCO3 21.3 mmol/L (20.0-26.0); ABG Methemoglobin 0.8 % (0.0-1.5); ABG Oxygen Saturation 96.8 % (95.0-99.0); ABG PCO2 38.2 mm Hg; ABG PH 7.364 pH Units (7.350-7.450); ABG PO2 83.8 mm Hg (80.0-90.0)
--- NOTE | 2020-02-20 05:01 | XRay Report ---
CHEST 1 VIEW INDICATION: follow up respiratory failure COMPARISON: One day prior. FINDINGS: Support devices: Unchanged. Heart: Stable. Lungs/Pleura: Residual disease has cleared. No acute disease on today's exam. IMPRESSION: 1. No acute disease. Signer Name: Ck Garcia MD Signed: 02/20/2020 4:57 AM Workstation Name: [id number]
[2020-02-20] MEDS: AMIODARONE 900 MG in DEXTROSE 5% IN WATER 482 ML IV SCH (06:04)
[2020-02-20] MEDS: metroNIDAZOLE/NS 500 MG/100 ML 500 MG/100 ML BAG IV SCH ×3 (06:04→21:07)
--- NOTE | 2020-02-20 08:36 | Progress Note ---
Assessment and Plan Cultures: Blood culture 02/11/2020 no growth today Sputum culture 02/12/19 no growth today Sputum culture 02/13/19 usual resp sulaiman Blood culture 02/19/2020 no growth Cdiff toxin PCR Positive A/P: 74-year-old female past medical history hypertension, diabetes, mitral valve prolapse, hyperlipidemia admitted with acute sepsis and abdominal pain #Acute sepsis: likely due to ischemic bowel. Leukocytosis better likely from UTI rather than C diff. 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 S/p exploratory laparotomy, enterocolonic anastamosis, closure of abdomen, application of wound vac on 02/15 #Respiratory failure: on BIPAP today #Presumed infected renal cyst #Diabetes: Tight glycemic control for best outcomes #Diarrhea: resolved prior to presentation, doubt C diff, likely from ischemic bowel. #LITZY on CKD: Renally adjust antibiotics, worsening #Anemia/thrombocytopenia: from sepsis #Diarrhea? Cdiff toxin PCR Positive, can be colinization rather than patogenic Cdiff, should have a Cdiff EIA not available unfortunately. #UTI: corcoran replaced for I+O. Recs: -obtain urine cx -add po vancomycin 125 mg QID for 7 days - wbc already improved so I believe this +Cdiff PCR may be more colonizer (carrier) than pathogenic -continue cefepime renally adjusted day 5 of 7 -Continue metronidazole day 5 of 7 -Continue fluconazole day 2 of 3 - robbie stop soon -f/u blood cx -monitor leukocytosis, platelets -remove corcoran when possible Will follow. Jo-Ann Mccray MD Infectious Diseases Script Coordinator [facility] [phone] O [phone] Subjective Date of service: 02/20/20 Principal diagnosis: Ischemic Bowel Interval history: Remains intubated sedated no fever on cardizem gtt, amio gtt, heparin gtt and TPN Objective - Exam Narrative Exam: Constitutional: sedated intubated Head, Ears, Nose: Normocephalic, atraumatic. Eyes: Conjunctivae/corneas clear. No icterus. No ptosis. Neck: Supple, no meningeal signs Oral: +ETT Cardiovascular: S1, S2 normal. Respiratory: Good air entry, clear to auscultation bilaterally GI: Soft, midline wound with VAC. Musculoskeletal:yareli arm edema Skin: No rash or abscess Hem/Lymphatic: No palpable cervical or supraclavicular nodes. No lymphangitis Psych: no agitated Neurological: sedated left PICC - Constitutional Vitals: Vital Signs Temp Pulse Resp BP Pulse Ox 97.4 F L 89 11 L 125/68 100 02/20/20 03:41 02/20/20 08:13 02/20/20 08:00 02/20/20 08:13 02/20/20 08:13 Temperature -Last 24 Hours Temperature 97.4 F Temperature 98.8 F Temperature 98.3 F Temperature 98.4 F Temperature 97.8 F - Labs CBC & Chem 7: 02/20/20 03:15 02/20/20 03:15 Labs: Abnormal lab results 02/19/20 02/19/20 02/19/20 Range/Units 11:37 14:00 14:00 WBC (4.5-11.0) K/mm3 RBC (3.65-5.03) M/mm3 Hgb (10.1-14.3) gm/dl Hct (30.3-42.9) % Plt Count (140-440) K/mm3 Seg Neuts % (Manual) (40.0-70.0) % Lymphocytes % (Manual) (13.4-35.0) % Seg Neutrophils # Man (1.8-7.7) K/mm3 Lymphocytes # (Manual) (1.2-5.4) K/mm3 Heparin Anti-Xa Level (0.3-0.7) U.I./ml ABG Base Excess (-2.0-3.0) mmol/L ABG Hemoglobin (12.0-16.0) gm/dl Oxyhemoglobin (95.0-99.0) % Sodium 132 L (137-145) mmol/L Potassium (3.6-5.0) mmol/L Chloride 95.4 L (98-107) mmol/L Carbon Dioxide 15 L (22-30) mmol/L BUN 75 H (7-17) mg/dL Creatinine 5.2 H (0.7-1.2) mg/dL Glucose 526 H* (65-100) mg/dL POC Glucose 288 H (70-105) Calcium 7.6 L (8.4-10.2) mg/dL Phosphorus (2.5-4.5) mg/dL Urine WBC (Auto) 166.0 H (0.0-6.0) /HPF 02/19/20 02/19/20 02/19/20 Range/Units 15:07 17:40 23:40 WBC (4.5-11.0) K/mm3 RBC (3.65-5.03) M/mm3 Hgb (10.1-14.3) gm/dl Hct (30.3-42.9) % Plt Count (140-440) K/mm3 Seg Neuts % (Manual) (40.0-70.0) % Lymphocytes % (Manual) (13.4-35.0) % Seg Neutrophils # Man (1.8-7.7) K/mm3 Lymphocytes # (Manual) (1.2-5.4) K/mm3 Heparin Anti-Xa Level (0.3-0.7) U.I./ml ABG Base Excess (-2.0-3.0) mmol/L ABG Hemoglobin (12.0-16.0) gm/dl Oxyhemoglobin (95.0-99.0) % Sodium (137-145) mmol/L Potassium (3.6-5.0) mmol/L Chloride (98-107) mmol/L Carbon Dioxide (22-30) mmol/L BUN (7-17) mg/dL Creatinine (0.7-1.2) mg/dL Glucose (65-100) mg/dL POC Glucose 324 H 328 H 390 H (70-105) Calcium (8.4-10.2) mg/dL Phosphorus (2.5-4.5) mg/dL Urine WBC (Auto) (0.0-6.0) /HPF 02/20/20 02/20/20 02/20/20 Range/Units 03:15 03:15 03:15 WBC 13.6 H (4.5-11.0) K/mm3 RBC 2.43 L (3.65-5.03) M/mm3 Hgb 7.1 L (10.1-14.3) gm/dl Hct 21.3 L D (30.3-42.9) % Plt Count 136 L (140-440) K/mm3 Seg Neuts % (Manual) 81.0 H (40.0-70.0) % Lymphocytes % (Manual) 5.0 L (13.4-35.0) % Seg Neutrophils # Man 11.0 H (1.8-7.7) K/mm3 Lymphocytes # (Manual) 0.7 L (1.2-5.4) K/mm3 Heparin Anti-Xa Level 0.19 L (0.3-0.7) U.I./ml ABG Base Excess (-2.0-3.0) mmol/L ABG Hemoglobin (12.0-16.0) gm/dl Oxyhemoglobin (95.0-99.0) % Sodium (137-145) mmol/L Potassium 3.5 L D (3.6-5.0) mmol/L Chloride (98-107) mmol/L Carbon Dioxide 19 L (22-30) mmol/L BUN 85 H (7-17) mg/dL Creatinine 5.4 H (0.7-1.2) mg/dL Glucose 353 H (65-100) mg/dL POC Glucose (70-105) Calcium 8.3 L (8.4-10.2) mg/dL Phosphorus 6.50 H (2.5-4.5) mg/dL Urine WBC (Auto) (0.0-6.0) /HPF 02/20/20 02/20/20 Range/Units 04:29 05:21 WBC (4.5-11.0) K/mm3 RBC (3.65-5.03) M/mm3 Hgb (10.1-14.3) gm/dl Hct (30.3-42.9) % Plt Count (140-440) K/mm3 Seg Neuts % (Manual) (40.0-70.0) % Lymphocytes % (Manual) (13.4-35.0) % Seg Neutrophils # Man (1.8-7.7) K/mm3 Lymphocytes # (Manual) (1.2-5.4) K/mm3 Heparin Anti-Xa Level (0.3-0.7) U.I./ml ABG Base Excess -3.8 L (-2.0-3.0) mmol/L ABG Hemoglobin 6.0 L (12.0-16.0) gm/dl Oxyhemoglobin 94.6 L (95.0-99.0) % Sodium (137-145) mmol/L Potassium (3.6-5.0) mmol/L Chloride (98-107) mmol/L Carbon Dioxide (22-30) mmol/L BUN (7-17) mg/dL Creatinine (0.7-1.2) mg/dL Glucose (65-100) mg/dL POC Glucose 400 H (70-105) Calcium (8.4-10.2) mg/dL Phosphorus (2.5-4.5) mg/dL Urine WBC (Auto) (0.0-6.0) /HPF
--- NOTE | 2020-02-20 09:00 | Progress Note ---
Assessment and Plan Atrial fibrillation, paroxysmal on low dose IV Cardizem and IV amiodarone. echocardiogram showed normal left ventricular systolic function with ejection fraction 60 to 65%. Sepsis Ischemic bowel Respiratory failure Diabetes LITZY on CKD Anemia Continue IV amiodarone and IV Cardizem for suppression of paroxysmal atrial fibrillation. Subjective Date of service: 02/20/20 Principal diagnosis: Ischemic Bowel Interval history: Remains intubated. Afib with a controlled ventricular rate. IV Diltiazem and IV amiodarone continues. Objective Vital Signs Temp Pulse Pulse Resp BP Pulse Ox 02/20/20 08:13 89 125/68 100 02/20/20 08:00 109 H 11 L 153/79 98 02/20/20 07:30 86 15 136/97 97 02/20/20 07:00 87 15 130/68 100 02/20/20 06:30 89 15 125/68 100 02/20/20 06:00 100 H 15 153/109 100 02/20/20 05:30 105 H 15 144/90 100 02/20/20 05:00 93 H 15 141/79 100 02/20/20 04:44 94 H 138/83 100 02/20/20 04:30 88 14 138/83 100 02/20/20 04:00 94 H 81 15 176/68 100 02/20/20 03:41 97.4 F L 02/20/20 03:30 120 H 12 151/92 100 02/20/20 03:00 85 16 144/73 100 02/20/20 02:30 100 H 16 162/101 100 02/20/20 02:00 102 H 16 174/93 100 02/20/20 01:30 91 H 16 137/89 98 02/20/20 01:00 108 H 10 L 161/92 100 02/20/20 00:54 82 166/89 100 02/20/20 00:30 86 16 166/106 99 02/20/20 00:00 91 H 99 H 16 152/89 98 02/19/20 23:45 98.8 F 02/19/20 23:30 76 18 170/74 100 02/19/20 23:00 89 16 148/70 100 02/19/20 22:30 87 17 129/72 100 02/19/20 22:00 93 H 14 153/102 100 02/19/20 21:30 113 H 14 156/90 100 02/19/20 21:00 109 H 17 134/83 99 02/19/20 20:30 85 13 131/65 98 02/19/20 20:00 82 99 H 15 146/80 99 02/19/20 19:30 112 H 15 135/84 99 02/19/20 19:27 98.3 F 02/19/20 19:00 106 H 16 152/85 98 02/19/20 18:30 115 H 16 137/96 95 02/19/20 18:18 111 H 16 161/80 98 02/19/20 17:30 103 H 16 159/88 96 02/19/20 17:15 110 H 173/89 96 02/19/20 17:00 106 H 20 180/84 93 02/19/20 16:30 100 H 17 152/81 100 02/19/20 16:00 98.4 F 104 H 96 H 15 152/82 99 02/19/20 15:30 95 H 16 153/86 99 02/19/20 15:00 91 H 16 162/92 98 02/19/20 14:30 75 17 148/88 98 02/19/20 14:00 91 H 17 138/105 97 02/19/20 13:47 113 H 194/92 02/19/20 13:30 100 H 19 187/84 99 02/19/20 13:00 108 H 14 151/84 98 02/19/20 12:30 109 H 15 184/75 97 02/19/20 12:00 97.8 F 90 90 19 175/109 98 02/19/20 11:30 92 H 17 163/74 98 02/19/20 11:25 97 H 154/73 98 02/19/20 11:00 105 H 16 141/70 98 02/19/20 10:30 105 H 17 132/45 96 02/19/20 10:00 88 13 148/94 98 02/19/20 09:30 90 16 122/70 98 02/19/20 09:00 96 H 14 129/75 97 - Physical Examination General: Other (intubated) Cardiac: Positive: irregularly irregular - Labs and Meds CBC 02/20/20 Range/Units 03:15 WBC 13.6 H (4.5-11.0) K/mm3 RBC 2.43 L (3.65-5.03) M/mm3 Hgb 7.1 L (10.1-14.3) gm/dl Hct 21.3 L D (30.3-42.9) % Plt Count 136 L (140-440) K/mm3 Comprehensive Metabolic Panel 02/19/20 02/20/20 Range/Units 14:00 03:15 Sodium 132 L 137 (137-145) mmol/L Potassium 4.5 3.5 L D (3.6-5.0) mmol/L Chloride 95.4 L 99.9 (98-107) mmol/L Carbon Dioxide 15 L 19 L (22-30) mmol/L BUN 75 H 85 H (7-17) mg/dL Creatinine 5.2 H 5.4 H (0.7-1.2) mg/dL Glucose 526 H* 353 H (65-100) mg/dL Calcium 7.6 L 8.3 L (8.4-10.2) mg/dL
[2020-02-20] MEDS: FAMOTIDINE 20 MG/2 ML INJ IV SCH (09:47)
[2020-02-20] MEDS: CEFEPIME/NS 1 GM/100 ML 1 GM/100 ML BAG IV SCH (09:48)
[2020-02-20] MEDS: FLUCONAZOLE/NS 100 MG/50 ML 100 MG/50 ML BAG IV SCH (09:48)
--- NOTE | 2020-02-20 10:21 | Progress Note ---
Assessment and Plan 74-year-old female status post 1. Exploratory laparotomy, enterocolonic anastamosis, closure of abdomen, application of wound vac, POD 4 2. Exploratory laparotomy, extensive small bowel resection, partial colon resection, placement of abthera vac, placement of right radial arterial line, 02/13/20 1. bowel ischemia with gangrene 2. sepsis 3. LITZY 4. Afib with RVR 5. Tobacco dependence CXR 02/20/20 - no residual disease CT C/A/P 02/19/20 - post operative changes of right colon. Anastamosis is intact. Generalized edema of abdominal wall. Pt currently hemodynamically stable. Plan: 1. neuro - Continue as needed pain control. Pt still with AMS. 2. CV - cardiology on board for Afib. H/H 7.1 from 9.1 - transfuse prbc as needed. Continue anticoagulation 3. Resp - vent management per ICU team, extubate when criteria met. 4. GI - Start TTF via NGT, do not advance today. Pt continues to have bowel function - diarrhea expected, Continue incisional wound VAC - will monitor drainage. GI ppx - protonix IV 5. - continue corcoran catheter for strict I/Os. Nephrology on board. Monitor c rt. Metabolic acidosis improved on todays ABG. UA - UTI, Ucx pending 6. ID - continue abx per ID. leukocytosis improved. Source likely UTI. Venous duplex b/l LE, CDIFF, Ucx, and Blcx pending. 7. Endo - strict glucose control 8. Musc - turning q2 as per protocol, skin breakdown precautions, SCDs 9. FEN - start TTF, Continue TPN until pt tolerating TF at goal, replace lytes as needed. [employer] System Markup Clerk notes reviewed and recs appreciated Thank you, please call with questions. Subjective Date of service: 02/20/20 Narrative: Patient seen and examined. No acute change in condition. Pt was noted to be agitated with high BP despite receiving dilaudid, therefore she was started on fent gtt. No fevers. Objective Vital Signs - 12hr 02/19/20 02/19/20 02/19/20 22:30 23:00 23:30 Temperature Pulse Rate 87 89 76 Pulse Rate [ From Monitor] Respiratory 17 16 18 Rate Blood Pressure 129/72 148/70 170/74 O2 Sat by Pulse 100 100 100 Oximetry 02/19/20 02/20/20 02/20/20 23:45 00:00 00:30 Temperature 98.8 F Pulse Rate 91 H 86 Pulse Rate [ 99 H From Monitor] Respiratory 16 16 Rate Blood Pressure 152/89 166/106 O2 Sat by Pulse 98 99 Oximetry 02/20/20 02/20/20 02/20/20 00:54 01:00 01:30 Temperature Pulse Rate 82 108 H 91 H Pulse Rate [ From Monitor] Respiratory 10 L 16 Rate Blood Pressure 166/89 161/92 137/89 O2 Sat by Pulse 100 100 98 Oximetry 02/20/20 02/20/20 02/20/20 02:00 02:30 03:00 Temperature Pulse Rate 102 H 100 H 85 Pulse Rate [ From Monitor] Respiratory 16 16 16 Rate Blood Pressure 174/93 162/101 144/73 O2 Sat by Pulse 100 100 100 Oximetry 02/20/20 02/20/20 02/20/20 03:30 03:41 04:00 Temperature 97.4 F L Pulse Rate 120 H 94 H Pulse Rate [ 81 From Monitor] Respiratory 12 15 Rate Blood Pressure 151/92 176/68 O2 Sat by Pulse 100 100 Oximetry 02/20/20 02/20/20 02/20/20 04:30 04:44 05:00 Temperature Pulse Rate 88 94 H 93 H Pulse Rate [ From Monitor] Respiratory 14 15 Rate Blood Pressure 138/83 138/83 141/79 O2 Sat by Pulse 100 100 100 Oximetry 02/20/20 02/20/20 02/20/20 05:30 06:00 06:30 Temperature Pulse Rate 105 H 100 H 89 Pulse Rate [ From Monitor] Respiratory 15 15 15 Rate Blood Pressure 144/90 153/109 125/68 O2 Sat by Pulse 100 100 100 Oximetry 02/20/20 02/20/20 02/20/20 07:00 07:30 08:00 Temperature 97.4 F L Pulse Rate 87 86 109 H Pulse Rate [ 109 H From Monitor] Respiratory 15 15 11 L Rate Blood Pressure 130/68 136/97 153/79 O2 Sat by Pulse 100 97 98 Oximetry 02/20/20 02/20/20 02/20/20 08:13 08:30 09:00 Temperature Pulse Rate 89 112 H 113 H Pulse Rate [ From Monitor] Respiratory 16 14 Rate Blood Pressure 125/68 144/80 152/83 O2 Sat by Pulse 100 99 99 Oximetry - General physical appearance Narrative Exam: Gen: Intubated. Opens eyes spontaneously. Does not follow commands ENT: ETT in place. NGT with light green/brown drainage CV: s1, S2+ Resp; on vent. No audible wheezes Abd: soft, NT, ND. Wound vac in place with scant sanguenous drainage in tubing and canister Ext: + generalized edema. : Corcoran in place with clear yellow urine. Rectal tube with dark brown liquid stool - Labs 02/20/20 03:15 02/20/20 03:15 Diabetes panel 02/19/20 02/20/20 Range/Units 14:00 03:15 Sodium 132 L 137 (137-145) mmol/L Potassium 4.5 3.5 L D (3.6-5.0) mmol/L Chloride 95.4 L 99.9 (98-107) mmol/L Carbon Dioxide 15 L 19 L (22-30) mmol/L BUN 75 H 85 H (7-17) mg/dL Creatinine 5.2 H 5.4 H (0.7-1.2) mg/dL Glucose 526 H* 353 H (65-100) mg/dL Calcium 7.6 L 8.3 L (8.4-10.2) mg/dL Calcium panel 02/19/20 02/20/20 Range/Units 14:00 03:15 Calcium 7.6 L 8.3 L (8.4-10.2) mg/dL Phosphorus 6.50 H (2.5-4.5) mg/dL Pituitary panel 02/19/20 02/20/20 Range/Units 14:00 03:15 Sodium 132 L 137 (137-145) mmol/L Potassium 4.5 3.5 L D (3.6-5.0) mmol/L Chloride 95.4 L 99.9 (98-107) mmol/L Carbon Dioxide 15 L 19 L (22-30) mmol/L BUN 75 H 85 H (7-17) mg/dL Creatinine 5.2 H 5.4 H (0.7-1.2) mg/dL Glucose 526 H* 353 H (65-100) mg/dL Calcium 7.6 L 8.3 L (8.4-10.2) mg/dL Adrenal panel 02/19/20 02/20/20 Range/Units 14:00 03:15 Sodium 132 L 137 (137-145) mmol/L Potassium 4.5 3.5 L D (3.6-5.0) mmol/L Chloride 95.4 L 99.9 (98-107) mmol/L Carbon Dioxide 15 L 19 L (22-30) mmol/L BUN 75 H 85 H (7-17) mg/dL Creatinine 5.2 H 5.4 H (0.7-1.2) mg/dL Glucose 526 H* 353 H (65-100) mg/dL Calcium 7.6 L 8.3 L (8.4-10.2) mg/dL
[2020-02-20] MEDS ORDERED: LIPASE 10,500/PROTEASE 25,000/AMYLASE 43,750 (UNITS) DR CAP FEEDTUBE PRN (10:28)
[2020-02-20] MEDS ORDERED: SODIUM BICARBONATE 325 MG TAB FEEDTUBE PRN (10:28)
[2020-02-20] MEDS ORDERED: SIMPLE SYRUP 15 ML FEEDTUBE PRN (10:28)
--- NOTE | 2020-02-20 12:19 | Progress Note ---
Assessment and Plan 74 y/o female with abdominal pain, hypotension, now hypertensive with tachycardia and pain, worrisome for SBO and inflammation in colon from diverticula with worsening renal function. 02/20/2020: Positive VTE but already on anticoagulation for Afib. HgB is 7. Not hypotensive. Does respond to lasix. Will discuss with renal but my personal preference would be to hold until less than 7 for transfusion. ID on board and placed on antifungal yesterday. Improvement in white count. Spoke with RT who will attempt PSV again today. If patient fails again today, will speak with renal about more volume removal. May need HD briefly. Surgery also starting trickle feeds today. Spoke with Pharm about increasing lantus given hyperglycemia. C. Diff PCR came back positive today. 02/19/2020: More awake today but failed PSV secondary to tachypnea. Makes sense given degree of acidosis. Await renal to eval today. Wonder if more lasix will be given or if she will need HD. Only on 30% with good sats, but compensating for metabolic acidosis which is why she failed PSV. Spoke with Granddaughter over the phone, renal please call as she would like an update on renal function and plans. Continue pain control with PRN therapy but no further continuous sedation. 02/18/2020: More awake but failing PSV trials. Spoke with renal and they did not request corcoran out either. Will replace and give lasix 80mg IV. Spoke with Granddaughter over the phone who is a nurse. Will attempt PSV later this afternoon. If passes, will likely extubate in the am. If not , will give an additional dose of lasix tonight. 02/17/2020: Start to wean sedation today with hopes of extubation. Pain control. IVF's per renal. Follow up any surgery recs. ID seen this am, reviewed their note and plan to treat for 7 days of abx, currently on day 2. 02/16/2020: Picc line placed yesterday. Going to OR today, plan around 1330. If able to close, could consider starting to wean as early as tomorrow but will touch base with surgery first. Patient HR in the 50's on drip so cards decreased. Discussed on rounds, but I asked nursing if any further issues to just stop the drip. Prognosis remains guarded. Trigylcerides not checked so will order stat. 02/15/2020: No new recs for today. Happy with current clinical state in regards to sedation, ventilation and oxygenation. Appreciate surgery and nephro help. follow up any new recs from them. Agree with picc line, will get tomorrow as I believe they (picc team) are not available on Sunday. Will check triglyceride level in the am. 1. Continue deep sedation and pain control. No plans on weaning or extubation until abdominal issues are done. 2. Continue corcoran 3. Follow up surgery recs. Greatly appreciate them and their help. Plan for return to OR on Sunday. 4. IV abx, ID following. 5. Cardiology has elected for dilt drip. Suggest titrating. Gave nurse parameters. 6. Follow up renal rec Guarded prognosis. CCT 31 minutes. Subjective Date of service: 02/20/20 Principal diagnosis: Ischemic Bowel Interval history: No acute events. HgB is 7.1 Put out about 15-1600 yesterday but if I/O are accurate, still only negative just a few cc's. Renal function did not change much. Acid base is better with bicarb given by renal. Holding on HD for now. CXR remains clear. Still on minimal vent support but has not been tried on PSV yet. Ultrasound at bedside and they have found VTE in the lower ext. Had to place patient on fentaynl drip to obtain adequate control of pain. Objective Vital Signs - 12hr 02/20/20 02/20/20 02/20/20 00:30 00:54 01:00 Temperature Pulse Rate 86 82 108 H Pulse Rate [ From Monitor] Respiratory 16 10 L Rate Blood Pressure 166/106 166/89 161/92 O2 Sat by Pulse 99 100 100 Oximetry 02/20/20 02/20/20 02/20/20 01:30 02:00 02:30 Temperature Pulse Rate 91 H 102 H 100 H Pulse Rate [ From Monitor] Respiratory 16 16 16 Rate Blood Pressure 137/89 174/93 162/101 O2 Sat by Pulse 98 100 100 Oximetry 02/20/20 02/20/20 02/20/20 03:00 03:30 03:41 Temperature 97.4 F L Pulse Rate 85 120 H Pulse Rate [ From Monitor] Respiratory 16 12 Rate Blood Pressure 144/73 151/92 O2 Sat by Pulse 100 100 Oximetry 02/20/20 02/20/20 02/20/20 04:00 04:30 04:44 Temperature Pulse Rate 94 H 88 94 H Pulse Rate [ 81 From Monitor] Respiratory 15 14 Rate Blood Pressure 176/68 138/83 138/83 O2 Sat by Pulse 100 100 100 Oximetry 02/20/20 02/20/20 02/20/20 05:00 05:30 06:00 Temperature Pulse Rate 93 H 105 H 100 H Pulse Rate [ From Monitor] Respiratory 15 15 15 Rate Blood Pressure 141/79 144/90 153/109 O2 Sat by Pulse 100 100 100 Oximetry 02/20/20 02/20/20 02/20/20 06:30 07:00 07:30 Temperature Pulse Rate 89 87 86 Pulse Rate [ From Monitor] Respiratory 15 15 15 Rate Blood Pressure 125/68 130/68 136/97 O2 Sat by Pulse 100 100 97 Oximetry 02/20/20 02/20/20 02/20/20 08:00 08:13 08:30 Temperature 97.4 F L Pulse Rate 109 H 89 112 H Pulse Rate [ 109 H From Monitor] Respiratory 11 L 16 Rate Blood Pressure 153/79 125/68 144/80 O2 Sat by Pulse 98 100 99 Oximetry 02/20/20 02/20/20 09:00 12:09 Temperature Pulse Rate 113 H 113 H Pulse Rate [ From Monitor] Respiratory 14 Rate Blood Pressure 152/83 152/83 O2 Sat by Pulse 99 99 Oximetry Constitutional: other (sedated, but will open eyes when name called.) Eyes: non-icteric ENT: other (orally intubated and sedated.) Effort: normal Ascultation: Bilateral: clear Percussion: Bilateral: not dull Cardiovascular: irregular rhythm (but rate controlled) Gastrointestinal: other (post surgical changes) Integumentary: normal Extremities: edema Neurologic: unable to assess CBC and BMP: 02/20/20 03:15 02/20/20 03:15 ABG, PT/INR, D-dimer: ABG ABG pH 7.364 pH Units (7.350-7.450) 02/20/20 04:29 ABG pCO2 38.2 mm Hg 02/20/20 04:29 ABG pO2 83.8 mm Hg (80.0-90.0) 02/20/20 04:29 ABG O2 Saturation 96.8 % (95.0-99.0) 02/20/20 04:29 PT/INR, D-dimer PT 16.9 Sec. (12.2-14.9) H 02/13/20 20:10 INR 1.41 (0.87-1.13) H 02/13/20 20:10 Abnormal lab findings: Abnormal Labs 02/11/20 02/11/20 02/11/20 15:27 15:27 15:27 WBC 22.5 H RBC Hgb Hct MCHC RDW Plt Count Seg Neuts % (Manual) 90.0 H Lymphocytes % (Manual) 4.0 L Seg Neutrophils # Man 20.3 H Lymphocytes # (Manual) 0.9 L Monocytes # (Manual) 1.1 H PT INR APTT 23.3 L Heparin Anti-Xa Level ABG pH ABG pO2 ABG HCO3 ABG O2 Saturation ABG Base Excess ABG Hemoglobin Oxyhemoglobin Sodium 132 L Potassium Chloride 96.0 L Carbon Dioxide 16 L BUN 59 H Creatinine 3.0 H Glucose 487 H POC Glucose Calcium Phosphorus Magnesium Alkaline Phosphatase 142 H Albumin Triglycerides Lipase 86 H Urine WBC (Auto) Urine Creatinine Urine Total Protein Crossmatch 02/12/20 02/12/20 02/12/20 04:58 04:58 Unknown WBC 30.0 H RBC Hgb Hct MCHC RDW Plt Count Seg Neuts % (Manual) 96.0 H Lymphocytes % (Manual) 1.0 L Seg Neutrophils # Man 28.8 H Lymphocytes # (Manual) 0.3 L Monocytes # (Manual) 0.9 H PT INR APTT Heparin Anti-Xa Level ABG pH ABG pO2 ABG HCO3 ABG O2 Saturation ABG Base Excess ABG Hemoglobin Oxyhemoglobin Sodium Potassium Chloride Carbon Dioxide 15 L BUN 59 H Creatinine 3.0 H Glucose 477 H POC Glucose Calcium Phosphorus Magnesium Alkaline Phosphatase Albumin 3.5 L Triglycerides Lipase Urine WBC (Auto) Urine Creatinine 35.3 H Urine Total Protein 796 H Crossmatch 02/13/20 02/13/20 02/13/20 05:43 05:43 13:24 WBC 38.2 H RBC Hgb Hct 43.6 H MCHC RDW Plt Count Seg Neuts % (Manual) 91.0 H Lymphocytes % (Manual) 4.0 L Seg Neutrophils # Man 34.8 H Lymphocytes # (Manual) Monocytes # (Manual) 1.1 H PT INR APTT Heparin Anti-Xa Level ABG pH ABG pO2 ABG HCO3 ABG O2 Saturation ABG Base Excess ABG Hemoglobin Oxyhemoglobin Sodium 136 L Potassium Chloride Carbon Dioxide 11 L BUN 71 H Creatinine 4.0 H Glucose 343 H POC Glucose 337 H Calcium Phosphorus Magnesium Alkaline Phosphatase Albumin Triglycerides Lipase Urine WBC (Auto) Urine Creatinine Urine Total Protein Crossmatch 02/13/20 02/13/20 02/13/20 16:49 16:50 17:30 WBC RBC Hgb Hct MCHC RDW Plt Count Seg Neuts % (Manual) Lymphocytes % (Manual) Seg Neutrophils # Man Lymphocytes # (Manual) Monocytes # (Manual) PT INR APTT Heparin Anti-Xa Level ABG pH 7.226 L ABG pO2 77.9 L ABG HCO3 16.4 L ABG O2 Saturation ABG Base Excess -10.5 L ABG Hemoglobin 11.7 L Oxyhemoglobin 92.8 L Sodium Potassium Chloride Carbon Dioxide BUN Creatinine Glucose POC Glucose 272 H Calcium Phosphorus Magnesium Alkaline Phosphatase Albumin Triglycerides Lipase Urine WBC (Auto) Urine Creatinine Urine Total Protein Crossmatch See Detail 02/13/20 02/13/20 02/14/20 20:10 22:08 00:22 WBC RBC Hgb Hct MCHC RDW Plt Count Seg Neuts % (Manual) Lymphocytes % (Manual) Seg Neutrophils # Man Lymphocytes # (Manual) Monocytes # (Manual) PT 16.9 H INR 1.41 H APTT Heparin Anti-Xa Level ABG pH 7.158 L* ABG pO2 ABG HCO3 18.6 L ABG O2 Saturation ABG Base Excess -10.2 L ABG Hemoglobin 11.9 L Oxyhemoglobin 93.1 L Sodium Potassium Chloride Carbon Dioxide BUN Creatinine Glucose POC Glucose 199 H Calcium Phosphorus Magnesium Alkaline Phosphatase Albumin Triglycerides Lipase Urine WBC (Auto) Urine Creatinine Urine Total Protein Crossmatch 02/14/20 02/14/20 02/14/20 03:45 04:29 04:29 WBC 14.4 H RBC Hgb Hct MCHC RDW 15.3 H Plt Count Seg Neuts % (Manual) 88.0 H Lymphocytes % (Manual) 6.0 L Seg Neutrophils # Man 12.7 H Lymphocytes # (Manual) 0.9 L Monocytes # (Manual) PT INR APTT Heparin Anti-Xa Level ABG pH 7.193 L* ABG pO2 ABG HCO3 16.4 L ABG O2 Saturation ABG Base Excess -11.2 L ABG Hemoglobin 10.2 L Oxyhemoglobin 94.3 L Sodium Potassium Chloride 108.5 H Carbon Dioxide 16 L BUN 73 H Creatinine 4.3 H Glucose 167 H POC Glucose Calcium 8.0 L Phosphorus Magnesium Alkaline Phosphatase Albumin Triglycerides Lipase Urine WBC (Auto) Urine Creatinine Urine Total Protein Crossmatch 02/14/20 02/14/20 02/14/20 05:26 12:11 18:34 WBC RBC Hgb Hct MCHC RDW Plt Count Seg Neuts % (Manual) Lymphocytes % (Manual) Seg Neutrophils # Man Lymphocytes # (Manual) Monocytes # (Manual) PT INR APTT Heparin Anti-Xa Level ABG pH ABG pO2 ABG HCO3 ABG O2 Saturation ABG Base Excess ABG Hemoglobin Oxyhemoglobin Sodium Potassium Chloride Carbon Dioxide BUN Creatinine Glucose POC Glucose 177 H 160 H 135 H Calcium Phosphorus Magnesium Alkaline Phosphatase Albumin Triglycerides Lipase Urine WBC (Auto) Urine Creatinine Urine Total Protein Crossmatch 02/14/20 02/15/20 02/15/20 23:18 03:19 04:28 WBC RBC Hgb Hct MCHC RDW Plt Count Seg Neuts % (Manual) Lymphocytes % (Manual) Seg Neutrophils # Man Lymphocytes # (Manual) Monocytes # (Manual) PT INR APTT Heparin Anti-Xa Level ABG pH 7.246 L ABG pO2 ABG HCO3 13.7 L ABG O2 Saturation ABG Base Excess -12.5 L ABG Hemoglobin 8.4 L Oxyhemoglobin 94.6 L Sodium Potassium Chloride Carbon Dioxide 12 L BUN 72 H Creatinine 4.7 H Glucose 147 H POC Glucose 138 H Calcium 7.9 L Phosphorus Magnesium Alkaline Phosphatase Albumin Triglycerides Lipase Urine WBC (Auto) Urine Creatinine Urine Total Protein Crossmatch 02/15/20 02/15/20 02/15/20 04:28 05:35 12:07 WBC RBC 2.88 L Hgb 8.6 L Hct 25.4 L D MCHC RDW 15.6 H Plt Count Seg Neuts % (Manual) Lymphocytes % (Manual) Seg Neutrophils # Man Lymphocytes # (Manual) Monocytes # (Manual) PT INR APTT Heparin Anti-Xa Level ABG pH ABG pO2 ABG HCO3 ABG O2 Saturation ABG Base Excess ABG Hemoglobin Oxyhemoglobin Sodium Potassium Chloride Carbon Dioxide BUN Creatinine Glucose POC Glucose 181 H 136 H Calcium Phosphorus Magnesium Alkaline Phosphatase Albumin Triglycerides Lipase Urine WBC (Auto) Urine Creatinine Urine Total Protein Crossmatch 02/15/20 02/15/20 02/16/20 17:50 23:18 04:20 WBC RBC Hgb Hct MCHC RDW Plt Count Seg Neuts % (Manual) Lymphocytes % (Manual) Seg Neutrophils # Man Lymphocytes # (Manual) Monocytes # (Manual) PT INR APTT Heparin Anti-Xa Level ABG pH ABG pO2 77.4 L ABG HCO3 ABG O2 Saturation ABG Base Excess -4.7 L ABG Hemoglobin 5.0 L Oxyhemoglobin Sodium Potassium Chloride Carbon Dioxide BUN Creatinine Glucose POC Glucose 177 H 284 H Calcium Phosphorus Magnesium Alkaline Phosphatase Albumin Triglycerides Lipase Urine WBC (Auto) Urine Creatinine Urine Total Protein Crossmatch 02/16/20 02/16/20 02/16/20 05:24 05:29 05:29 WBC RBC 2.31 L Hgb 7.2 L Hct 20.2 L MCHC 36 H RDW 15.3 H Plt Count 115 L Seg Neuts % (Manual) Lymphocytes % (Manual) Seg Neutrophils # Man Lymphocytes # (Manual) Monocytes # (Manual) PT INR APTT Heparin Anti-Xa Level ABG pH ABG pO2 ABG HCO3 ABG O2 Saturation ABG Base Excess ABG Hemoglobin Oxyhemoglobin Sodium 135 L Potassium 3.0 L D Chloride 90.7 L Carbon Dioxide BUN 64 H Creatinine 4.7 H Glucose 491 H POC Glucose 282 H Calcium 7.2 L Phosphorus Magnesium Alkaline Phosphatase Albumin Triglycerides Lipase Urine WBC (Auto) Urine Creatinine Urine Total Protein Crossmatch 02/16/20 02/16/20 02/16/20 05:29 08:39 12:27 WBC RBC Hgb Hct MCHC RDW Plt Count Seg Neuts % (Manual) Lymphocytes % (Manual) Seg Neutrophils # Man Lymphocytes # (Manual) Monocytes # (Manual) PT INR APTT Heparin Anti-Xa Level ABG pH ABG pO2 ABG HCO3 ABG O2 Saturation ABG Base Excess ABG Hemoglobin Oxyhemoglobin Sodium Potassium Chloride Carbon Dioxide BUN Creatinine Glucose POC Glucose 314 H Calcium Phosphorus Magnesium Alkaline Phosphatase Albumin Triglycerides 716 H Lipase Urine WBC (Auto) Urine Creatinine Urine Total Protein Crossmatch See Detail 02/16/20 02/17/20 02/17/20 19:04 00:02 03:45 WBC RBC Hgb Hct MCHC RDW Plt Count Seg Neuts % (Manual) Lymphocytes % (Manual) Seg Neutrophils # Man Lymphocytes # (Manual) Monocytes # (Manual) PT INR APTT Heparin Anti-Xa Level ABG pH ABG pO2 ABG HCO3 ABG O2 Saturation ABG Base Excess ABG Hemoglobin Oxyhemoglobin Sodium Potassium Chloride Carbon Dioxide 21 L BUN 63 H Creatinine 5.2 H Glucose 134 H POC Glucose 203 H 202 H Calcium 7.6 L Phosphorus Magnesium Alkaline Phosphatase Albumin Triglycerides Lipase Urine WBC (Auto) Urine Creatinine Urine Total Protein Crossmatch 02/17/20 02/17/20 02/17/20 03:45 03:45 04:06 WBC RBC Hgb 9.9 L Hct 30.1 L D MCHC RDW Plt Count Seg Neuts % (Manual) Lymphocytes % (Manual) Seg Neutrophils # Man Lymphocytes # (Manual) Monocytes # (Manual) PT INR APTT Heparin Anti-Xa Level ABG pH 7.288 L ABG pO2 ABG HCO3 ABG O2 Saturation ABG Base Excess -4.9 L ABG Hemoglobin 9.7 L Oxyhemoglobin 94.0 L Sodium Potassium Chloride Carbon Dioxide BUN Creatinine Glucose POC Glucose Calcium Phosphorus Magnesium Alkaline Phosphatase Albumin Triglycerides 238 H Lipase Urine WBC (Auto) Urine Creatinine Urine Total Protein Crossmatch 02/17/20 02/17/20 02/17/20 05:21 12:08 18:07 WBC RBC Hgb Hct MCHC RDW Plt Count Seg Neuts % (Manual) Lymphocytes % (Manual) Seg Neutrophils # Man Lymphocytes # (Manual) Monocytes # (Manual) PT INR APTT Heparin Anti-Xa Level ABG pH ABG pO2 ABG HCO3 ABG O2 Saturation ABG Base Excess ABG Hemoglobin Oxyhemoglobin Sodium Potassium Chloride Carbon Dioxide BUN Creatinine Glucose POC Glucose 132 H 141 H 189 H Calcium Phosphorus Magnesium Alkaline Phosphatase Albumin Triglycerides Lipase Urine WBC (Auto) Urine Creatinine Urine Total Protein Crossmatch 02/17/20 02/17/20 02/18/20 19:54 23:13 03:41 WBC RBC Hgb Hct MCHC RDW Plt Count Seg Neuts % (Manual) Lymphocytes % (Manual) Seg Neutrophils # Man Lymphocytes # (Manual) Monocytes # (Manual) PT INR APTT Heparin Anti-Xa Level < 0.10 L ABG pH 7.281 L ABG pO2 74.5 L ABG HCO3 16.2 L ABG O2 Saturation 94.3 L ABG Base Excess -9.7 L ABG Hemoglobin 9.8 L Oxyhemoglobin 92.1 L Sodium Potassium Chloride Carbon Dioxide BUN Creatinine Glucose POC Glucose 167 H Calcium Phosphorus Magnesium Alkaline Phosphatase Albumin Triglycerides Lipase Urine WBC (Auto) Urine Creatinine Urine Total Protein Crossmatch 02/18/20 02/18/20 02/18/20 04:37 05:44 09:00 WBC RBC Hgb Hct MCHC RDW Plt Count Seg Neuts % (Manual) Lymphocytes % (Manual) Seg Neutrophils # Man Lymphocytes # (Manual) Monocytes # (Manual) PT INR APTT Heparin Anti-Xa Level ABG pH ABG pO2 ABG HCO3 ABG O2 Saturation ABG Base Excess ABG Hemoglobin Oxyhemoglobin Sodium Potassium Chloride Carbon Dioxide 15 L BUN 65 H Creatinine 5.1 H Glucose 117 H POC Glucose 112 H Calcium 7.7 L Phosphorus 6.40 H Magnesium 1.30 L Alkaline Phosphatase Albumin Triglycerides Lipase Urine WBC (Auto) Urine Creatinine Urine Total Protein Crossmatch 02/18/20 02/18/20 02/18/20 09:00 12:41 17:58 WBC 14.9 H RBC 2.99 L Hgb 8.8 L Hct 27.1 L MCHC RDW 15.8 H Plt Count 131 L Seg Neuts % (Manual) Lymphocytes % (Manual) Seg Neutrophils # Man Lymphocytes # (Manual) Monocytes # (Manual) PT INR APTT Heparin Anti-Xa Level ABG pH ABG pO2 ABG HCO3 ABG O2 Saturation ABG Base Excess ABG Hemoglobin Oxyhemoglobin Sodium Potassium Chloride Carbon Dioxide BUN Creatinine Glucose POC Glucose 140 H 141 H Calcium Phosphorus Magnesium Alkaline Phosphatase Albumin Triglycerides Lipase Urine WBC (Auto) Urine Creatinine Urine Total Protein Crossmatch 02/18/20 02/19/20 02/19/20 23:06 03:50 04:30 WBC RBC Hgb Hct MCHC RDW Plt Count Seg Neuts % (Manual) Lymphocytes % (Manual) Seg Neutrophils # Man Lymphocytes # (Manual) Monocytes # (Manual) PT INR APTT Heparin Anti-Xa Level ABG pH 7.243 L ABG pO2 75.3 L ABG HCO3 11.8 L ABG O2 Saturation 94.0 L ABG Base Excess -14.1 L ABG Hemoglobin 9.6 L Oxyhemoglobin 91.8 L Sodium 136 L Potassium Chloride Carbon Dioxide 12 L BUN 76 H Creatinine 5.2 H Glucose 228 H POC Glucose 212 H Calcium Phosphorus Magnesium Alkaline Phosphatase Albumin Triglycerides Lipase Urine WBC (Auto) Urine Creatinine Urine Total Protein Crossmatch 02/19/20 02/19/20 02/19/20 04:30 04:30 06:19 WBC 19.8 H RBC 3.19 L Hgb 9.1 L Hct 28.9 L MCHC RDW 15.5 H Plt Count Seg Neuts % (Manual) 86.0 H Lymphocytes % (Manual) 5.0 L Seg Neutrophils # Man 17.0 H Lymphocytes # (Manual) 1.0 L Monocytes # (Manual) 1.4 H PT INR APTT Heparin Anti-Xa Level ABG pH ABG pO2 ABG HCO3 ABG O2 Saturation ABG Base Excess ABG Hemoglobin Oxyhemoglobin Sodium Potassium Chloride Carbon Dioxide BUN Creatinine Glucose POC Glucose 253 H Calcium Phosphorus 8.00 H D Magnesium Alkaline Phosphatase Albumin Triglycerides Lipase Urine WBC (Auto) Urine Creatinine Urine Total Protein Crossmatch 02/19/20 02/19/20 02/19/20 11:37 14:00 14:00 WBC RBC Hgb Hct MCHC RDW Plt Count Seg Neuts % (Manual) Lymphocytes % (Manual) Seg Neutrophils # Man Lymphocytes # (Manual) Monocytes # (Manual) PT INR APTT Heparin Anti-Xa Level ABG pH ABG pO2 ABG HCO3 ABG O2 Saturation ABG Base Excess ABG Hemoglobin Oxyhemoglobin Sodium 132 L Potassium Chloride 95.4 L Carbon Dioxide 15 L BUN 75 H Creatinine 5.2 H Glucose 526 H* POC Glucose 288 H Calcium 7.6 L Phosphorus Magnesium Alkaline Phosphatase Albumin Triglycerides Lipase Urine WBC (Auto) 166.0 H Urine Creatinine Urine Total Protein Crossmatch 02/19/20 02/19/20 02/19/20 15:07 17:40 23:40 WBC RBC Hgb Hct MCHC RDW Plt Count Seg Neuts % (Manual) Lymphocytes % (Manual) Seg Neutrophils # Man Lymphocytes # (Manual) Monocytes # (Manual) PT INR APTT Heparin Anti-Xa Level ABG pH ABG pO2 ABG HCO3 ABG O2 Saturation ABG Base Excess ABG Hemoglobin Oxyhemoglobin Sodium Potassium Chloride Carbon Dioxide BUN Creatinine Glucose POC Glucose 324 H 328 H 390 H Calcium Phosphorus Magnesium Alkaline Phosphatase Albumin Triglycerides Lipase Urine WBC (Auto) Urine Creatinine Urine Total Protein Crossmatch 02/20/20 02/20/20 02/20/20 03:15 03:15 03:15 WBC 13.6 H RBC 2.43 L Hgb 7.1 L Hct 21.3 L D MCHC RDW Plt Count 136 L Seg Neuts % (Manual) 81.0 H Lymphocytes % (Manual) 5.0 L Seg Neutrophils # Man 11.0 H Lymphocytes # (Manual) 0.7 L Monocytes # (Manual) PT INR APTT Heparin Anti-Xa Level 0.19 L ABG pH ABG pO2 ABG HCO3 ABG O2 Saturation ABG Base Excess ABG Hemoglobin Oxyhemoglobin Sodium Potassium 3.5 L D Chloride Carbon Dioxide 19 L BUN 85 H Creatinine 5.4 H Glucose 353 H POC Glucose Calcium 8.3 L Phosphorus 6.50 H Magnesium Alkaline Phosphatase Albumin Triglycerides Lipase Urine WBC (Auto) Urine Creatinine Urine Total Protein Crossmatch 02/20/20 02/20/20 04:29 05:21 WBC RBC Hgb Hct MCHC RDW Plt Count Seg Neuts % (Manual) Lymphocytes % (Manual) Seg Neutrophils # Man Lymphocytes # (Manual) Monocytes # (Manual) PT INR APTT Heparin Anti-Xa Level ABG pH ABG pO2 ABG HCO3 ABG O2 Saturation ABG Base Excess -3.8 L ABG Hemoglobin 6.0 L Oxyhemoglobin 94.6 L Sodium Potassium Chloride Carbon Dioxide BUN Creatinine Glucose POC Glucose 400 H Calcium Phosphorus Magnesium Alkaline Phosphatase Albumin Triglycerides Lipase Urine WBC (Auto) Urine Creatinine Urine Total Protein Crossmatch
[2020-02-20] MEDS: HEPARIN/ 0.45% NACL DRIP 25,000 UNIT/500 ML BAG IV SCH (12:38)
[2020-02-20] MEDS ORDERED: VANCOMYCIN 250 MG/10 ML ORAL LIQD PO SCH (13:00)
--- NOTE | 2020-02-20 13:04 | Vascular Lab Report ---
DUPLEX DOPPLER LOWER EXTREMITY VEINS, BILATERAL INDICATION: Bilateral lower extent of the edema, leukocytosis, possible DVT. TECHNIQUE: Duplex doppler imaging was performed through the veins of both lower extremities using venous jorge luis fernanda and other maneuvers. COMPARISON: No relevant prior imaging study available. FINDINGS: Right Common Femoral vein: Negative. Right Superficial Femoral vein: Negative. Right Popliteal vein: Negative. Right Calf veins: Negative. Left Common Femoral vein: Negative. Left Superficial Femoral vein: Acute nonocclusive DVT is present along the mid to distal portions of the vein. Left Popliteal vein: Negative. Left Calf veins: Negative. Additional findings: There are small bilateral Buckley cysts, left greater than right. Mild bilateral l eg edema is also noted. IMPRESSION: 1. Acute left lower extremity DVT as above. 2. No sonographic evidence of DVT in the right lower extremity. 3. Digital findings as above. The technologist informed Dr. Cervantes of these findings at 12:15 Eastern standard time. Signer Name: Marshall Lassiter MD Signed: 02/20/2020 1:00 PM Workstation Name: [id number]
--- NOTE | 2020-02-20 13:53 | Progress Note ---
Assessment and Plan Assessment and plan: Sepsis. Etiology due to ischemic bowel. Acute hypoxic resp failure. Pulm following. 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 Pt. is s/p Exploratory laparotomy, extensive small bowel resection, partial colon resection, placement of abthera vac on 02/13/2020. S/p exploratory laparotomy, enterocolonic anastamosis, closure of abdomen, application of wound vac on 02/15 Presumed infected renal cyst. ID following Diabetes Mellitus type 2. Tight glycemic control, accucheks and ssri Diarrhea- resolved prior to presentation, doubt C diff, likely from ischemic bowel. LITZY on CKD: Renally adjust antibiotics, worsening Right saphenous vein DVT. Anticoagulation C. difficile colitis. Recommend p.o. vancomycin 02/18/2020. Patient still with oral ETT on mechanical ventilation. Patient currently with PSVT trials, FiO2 30% pressure support 12 and PEEP 6. Continue to wean as tolerated. Consider extubation today. However, chest x-ray today reveals developing right pleural effusion. Continue wound care per wound team. Continue incisional wound VAC. Continue strict n.p.o. and NGT to low intermittent suction. Continue IV antibiotics per ID 02/19/2020. Patient currently with AC mode ventilation rate 16, tidal volume 450, FiO2 30%, PEEP 6. Continue to wean per protocol and pulmonary recommendations. Patient failed PSV secondary to tachypnea today. Continue wound care per wound team. Continue incisional wound VAC. Continue strict n.p.o. and NGT to low intermittent suction. Continue IV antibiotics per ID. Creatinine stable today at 5.1/5.2 and remains non-oliguric; no indication for renal replacement therapy emergently per nephrology. Nephrology to administer 100 mg of IV Lasix today to further promote diuresis and help with metabolic acidosis. Remains at high risk for needing renal replacement therapy 02/20/2020. Patient currently with AC mode ventilation rate 16, tidal volume 450, FiO2 30%, PEEP 6. Continue to wean per protocol and pulmonary recommendations. Patient failed PSV trials. Patient with right lower extremity DVT. Continue anticoagulation which patient is currently on. Patient also with C. difficile colitis/C. difficile positive. We will start p.o. vancomycin. Acute kidney injury on CKD continues to worsen. Therefore, patient will likely need hemodialysis. Defer to nephrology. The high probability of a clinically significant, sudden or life threatening deterioration of the [respiratory] system(s) required my full and direct attention, intervention and personal management. The aggregate critical care time was [32] minutes. This time is in addition to time spent performing repor lesli procedures but includes the following: [x] Data Review and interpretation [x] Patient assessment and monitoring of vital signs [x] Documentation [x] Medication orders and management History Interval history: No new issues Hospitalist Physical - Constitutional Vitals: Temp Pulse Resp BP Pulse Ox 97.4 F L 105 H 15 150/88 100 02/20/20 12:00 02/20/20 13:02 02/20/20 13:02 02/20/20 13:02 02/20/20 13:02 General appearance: Present: other (Intubated) - EENT Eyes: Present: PERRL, EOM intact ENT: hearing intact, clear oral mucosa, dentition normal - Neck Neck: Present: supple, normal ROM - Respiratory Respiratory effort: normal Respiratory: bilateral: CTA - Cardiovascular Rhythm: regular Heart Sounds: Present: S1 & S2. Absent: gallop, rub - Extremities Extremities: no ischemia, No edema, Full ROM - Abdominal General gastrointestinal: soft, non-tender, non-distended, normal bowel sounds - Integumentary Integumentary: Present: clear, warm, dry - Neurologic Neurologic: CNII-XII intact, moves all extremities HEART Score - HEART Score Troponin: Troponin T < 0.010 ng/mL (0.00-0.029) 02/11/20 15:27 Results - Labs CBC & Chem 7: 02/20/20 03:15 02/20/20 03:15 Labs: Laboratory Last Values WBC 13.6 K/mm3 (4.5-11.0) H 02/20/20 03:15 RBC 2.43 M/mm3 (3.65-5.03) L 02/20/20 03:15 Hgb 7.1 gm/dl (10.1-14.3) L 02/20/20 03:15 Hct 21.3 % (30.3-42.9) L D 02/20/20 03:15 MCV 88 fl (79-97) 02/20/20 03:15 MCH 29 pg (28-32) 02/20/20 03:15 MCHC 33 % (30-34) 02/20/20 03:15 RDW 14.9 % (13.2-15.2) 02/20/20 03:15 Plt Count 136 K/mm3 (140-440) L 02/20/20 03:15 Add Manual Diff Complete 02/20/20 03:15 Total Counted 100 02/20/20 03:15 Seg Neutrophils % [employer] 02/14/20 04:29 Seg Neuts % (Manual) 81.0 % (40.0-70.0) H 02/20/20 03:15 Band Neutrophils % 6.0 % 02/20/20 03:15 Lymphocytes % (Manual) 5.0 % (13.4-35.0) L 02/20/20 03:15 Reactive Lymphs % (Man) 0 % 02/20/20 03:15 Monocytes % (Manual) 6.0 % (0.0-7.3) 02/20/20 03:15 Eosinophils % (Manual) 2.0 % (0.0-4.3) 02/20/20 03:15 Basophils % (Manual) 0 % (0.0-1.8) 02/20/20 03:15 Metamyelocytes % 0 % 02/20/20 03:15 Myelocytes % 0 % 02/20/20 03:15 Promyelocytes % 0 % 02/20/20 03:15 Blast Cells % 0 % 02/20/20 03:15 Nucleated RBC % Not Reportable 02/20/20 03:15 Seg Neutrophils # Man 11.0 K/mm3 (1.8-7.7) H 02/20/20 03:15 Band Neutrophils # 0.8 K/mm3 02/20/20 03:15 Lymphocytes # (Manual) 0.7 K/mm3 (1.2-5.4) L 02/20/20 03:15 Abs React Lymphs (Man) 0.0 K/mm3 02/20/20 03:15 Monocytes # (Manual) 0.8 K/mm3 (0.0-0.8) 02/20/20 03:15 Eosinophils # (Manual) 0.3 K/mm3 (0.0-0.4) 02/20/20 03:15 Basophils # (Manual) 0.0 K/mm3 (0.0-0.1) 02/20/20 03:15 Metamyelocytes # 0.0 K/mm3 02/20/20 03:15 Myelocytes # 0.0 K/mm3 02/20/20 03:15 Promyelocytes # 0.0 K/mm3 02/20/20 03:15 Blast Cells # 0.0 K/mm3 02/20/20 03:15 WBC Morphology Not Reportable 02/20/20 03:15 Hypersegmented Neuts Rare 02/20/20 03:15 Hyposegmented Neuts Not Reportable 02/20/20 03:15 Hypogranular Neuts Not Reportable 02/20/20 03:15 Smudge Cells Not Reportable 02/20/20 03:15 Toxic Granulation Not Reportable 02/20/20 03:15 Toxic Vacuolation Not Reportable 02/20/20 03:15 Dohle Bodies Not Reportable 02/20/20 03:15 Pelger-Huet Anomaly Not Reportable 02/20/20 03:15 Jyoti Rods Not Reportable 02/20/20 03:15 Platelet Estimate Consistent w auto 02/20/20 03:15 Clumped Platelets Not Reportable 02/20/20 03:15 Plt Clumps, EDTA Not Reportable 02/20/20 03:15 Large Platelets Rare 02/20/20 03:15 Giant Platelets Not Reportable 02/20/20 03:15 Platelet Satelliting Not Reportable 02/20/20 03:15 Plt Morphology Comment Not Reportable 02/20/20 03:15 RBC Morphology Not Reportable 02/20/20 03:15 Dimorphic RBCs Not Reportable 02/20/20 03:15 Polychromasia Not Reportable 02/20/20 03:15 Hypochromasia Rare 02/20/20 03:15 Poikilocytosis Not Reportable 02/20/20 03:15 Anisocytosis Rare 02/20/20 03:15 Microcytosis Not Reportable 02/20/20 03:15 Macrocytosis Not Reportable 02/20/20 03:15 Spherocytes Not Reportable 02/20/20 03:15 Pappenheimer Bodies Not Reportable 02/20/20 03:15 Sickle Cells Not Reportable 02/20/20 03:15 Target Cells Not Reportable 02/20/20 03:15 Tear Drop Cells Not Reportable 02/20/20 03:15 Ovalocytes Rare 02/20/20 03:15 Helmet Cells Not Reportable 02/20/20 03:15 Garcia-Mastic Bodies Not Reportable 02/20/20 03:15 Arnold Rings Not Reportable 02/20/20 03:15 [place] Cells Not Reportable 02/20/20 03:15 Bite Cells Not Reportable 02/20/20 03:15 Crenated Cell Not Reportable 02/20/20 03:15 Elliptocytes Not Reportable 02/20/20 03:15 Acanthocytes (Spur) Not Reportable 02/20/20 03:15 Rouleaux Not Reportable 02/20/20 03:15 Hemoglobin C Crystals Not Reportable 02/20/20 03:15 Schistocytes Not Reportable 02/20/20 03:15 Malaria parasites Not Reportable 02/20/20 03:15 Babar Bodies Not Reportable 02/20/20 03:15 Hem Pathologist Commnt No 02/20/20 03:15 PT 16.9 Sec. (12.2-14.9) H 02/13/20 20:10 INR 1.41 (0.87-1.13) H 02/13/20 20:10 APTT 35.3 Sec. (24.2-36.6) 02/13/20 20:10 Heparin Anti-Xa Level 0.19 U.I./ml (0.3-0.7) L 02/20/20 03:15 ABG pH 7.364 pH Units (7.350-7.450) 02/20/20 04:29 ABG pCO2 38.2 mm Hg 02/20/20 04:29 ABG pO2 83.8 mm Hg (80.0-90.0) 02/20/20 04:29 ABG HCO3 21.3 mmol/L (20.0-26.0) 02/20/20 04:29 ABG O2 Saturation 96.8 % (95.0-99.0) 02/20/20 04:29 ABG O2 Content 8.1 (0.0-44) 02/20/20 04:29 ABG Base Excess -3.8 mmol/L (-2.0-3.0) L 02/20/20 04:29 ABG Hemoglobin 6.0 gm/dl (12.0-16.0) L 02/20/20 04:29 ABG Carboxyhemoglobin 1.5 % (0.0-5.0) 02/20/20 04:29 ABG Methemoglobin 0.8 % (0.0-1.5) 02/20/20 04:29 Oxyhemoglobin 94.6 % (95.0-99.0) L 02/20/20 04:29 FiO2 30 % 02/20/20 04:29 Sodium 137 mmol/L (137-145) 02/20/20 03:15 Potassium 3.5 mmol/L (3.6-5.0) L D 02/20/20 03:15 Chloride 99.9 mmol/L (98-107) 02/20/20 03:15 Carbon Dioxide 19 mmol/L (22-30) L 02/20/20 03:15 Anion Gap 22 mmol/L 02/20/20 03:15 BUN 85 mg/dL (7-17) H 02/20/20 03:15 Creatinine 5.4 mg/dL (0.7-1.2) H 02/20/20 03:15 Estimated GFR 8 ml/min 02/20/20 03:15 BUN/Creatinine Ratio 16 % 02/20/20 03:15 Glucose 353 mg/dL (65-100) H 02/20/20 03:15 POC Glucose 348 (70-105) H 02/20/20 11:52 Ketones Quantitative Negative (Negative) 02/13/20 14:51 Lactic Acid 0.70 mmol/L (0.7-2.0) 02/14/20 Unknown Calcium 8.3 mg/dL (8.4-10.2) L 02/20/20 03:15 Phosphorus 6.50 mg/dL (2.5-4.5) H 02/20/20 03:15 Magnesium 2.00 mg/dL (1.7-2.3) 02/20/20 03:15 Total Bilirubin 0.20 mg/dL (0.1-1.2) 02/12/20 04:58 Direct Bilirubin < 0.2 mg/dL (0-0.2) 02/11/20 15:27 Indirect Bilirubin 0.2 mg/dL 02/11/20 15:27 AST 16 units/L (5-40) 02/12/20 04:58 ALT 24 units/L (7-56) 02/12/20 04:58 Alkaline Phosphatase 127 units/L (35-129) 02/12/20 04:58 Troponin T < 0.010 ng/mL (0.00-0.029) 02/11/20 15:27 Total Protein 7.0 g/dL (6.3-8.2) 02/12/20 04:58 Albumin 3.5 g/dL (3.9-5) L 02/12/20 04:58 Albumin/Globulin Ratio 1.0 % 02/12/20 04:58 Triglycerides 238 mg/dL (2-149) H 02/17/20 03:45 Lipase 60 units/L (13-60) 02/13/20 14:51 Urine Color Yellow (Yellow) 02/19/20 14:00 Urine Turbidity Cloudy (Clear) 02/19/20 14:00 Urine pH 5.0 (5.0-7.0) 02/19/20 14:00 Ur Specific [place] 1.007 (1.003-1.030) 02/19/20 14:00 Urine Protein 100 mg/dl mg/dL (Negative) 02/19/20 14:00 Urine Glucose (UA) >=500 mg/dL (Negative) 02/19/20 14:00 Urine Ketones Tr mg/dL (Negative) 02/19/20 14:00 Urine Blood Lg (Negative) 02/19/20 14:00 Urine Nitrite Neg (Negative) 02/19/20 14:00 Urine Bilirubin Neg (Negative) 02/19/20 14:00 Urine Urobilinogen < 2.0 mg/dL (<2.0) 02/19/20 14:00 Ur Leukocyte Esterase Lg (Negative) 02/19/20 14:00 Urine WBC (Auto) 166.0 /HPF (0.0-6.0) H 02/19/20 14:00 Urine RBC (Auto) 20.0 /HPF (0.0-6.0) 02/19/20 14:00 U Epithel Cells (Auto) 2.0 /HPF (0-13.0) 02/19/20 14:00 Urine Bacteria (Auto) 1+ /HPF (Negative) 02/19/20 14:00 Urine WBC Clumps 3+ /HPF 02/19/20 14:00 Urine Mucus Few /HPF 02/19/20 14:00 Urine Yeast (Budding) 3+ /HPF 02/19/20 14:00 Urine Eosinophils None seen (None Seen) 02/12/20 Unknown Urine Creatinine 35.3 mg/dL (0.1-20.0) H 02/12/20 Unknown Protein/Creatinin Ratio 22.55 02/12/20 Unknown Urine Total Protein 796 mg/dL (5-11.8) H 02/12/20 Unknown C. difficile Tox (PCR) Positive (Negative) 02/19/20 12:46 Blood Type O NEGATIVE 02/16/20 08:39 Antibody Screen Negative 02/16/20 08:39 Crossmatch See Detail 02/16/20 08:39 Microbiology: Microbiology 02/19/20 14:00 Urine,Catheterized - Indwelling Catheter Urine Culture - Preliminary 02/19/20 15:30 Peripheral/Venous Blood Culture - Preliminary Culture in Progress 02/19/20 15:00 Peripheral/Venous Blood Culture - Preliminary Culture in Progress - Diagnostic Impressions Diagnostic Impressions: Echocardiogram 02/13/20 18:02 Transthoracic Echocardiogram Indication: Afib BP: 101/70 HR: 128 Findings Left Ventricle: The left ventricular chamber size is normal. Mild to moderate concentric left ventricular hypertrophy is observed. Global left ventricular wall motion and contractility are within normal limits. Global left ventricular systolic function is normal. The estimated ejection fraction is 60-65%. Left Atrium: The left atrium is mild to moderately dilated. Right Ventricle: The right ventricular cavity size is normal. The right ventricular global systolic function is normal. Right Atrium: The right atrium appears normal. The interatrial septum appears normal. Aortic Valve: The aortic valve structure is normal. The aortic valve leaflets are mildly thickened. There is no evidence of aortic regurgitation. There is no evidence of aortic stenosis. Mitral Valve: The mitral valve leaflets appear normal. There is no evidence of mitral regurgitation. There is no evidence of mitral stenosis. Tricuspid Valve: The tricuspid valve leaflets are normal. There is mild to moderate tricuspid regurgitation. The right ventricular systolic pressure is calculated at 39 mmHg. There is evidence of pulmonary hypertension. There is no tricuspid stenosis. Pulmonic Valve: The pulmonic valve appears normal. There is no evidence of pulmonic regurgitation. There is no pulmonic stenosis. Pericardium: A pericardial effusion is visualized. There is a minimial pericardial effusion. A left pleural effusion is present. There is a moderate pleural effusion. Aorta: There is no dilatation of the ascending aorta. There is no dilatation of the aortic arch. There is no dilatation of the descending thoracic aorta. There is no dilatation of the aortic root. Venous: The inferior vena cava appears normal in size. Measurements Chambers 2D Name Value Normal Range IVSd (2D) 1.34 cm (0.6 - 1.1) LVPWd (2D) 1.35 cm (0.6 - 1.1) LVIDd (2D) 4.72 cm (3.7 - 5.6) LVIDs (2D) 3.28 cm (2 - 3.8) LV FS (2D) 30.38 % - EF Teichholz (2D) 57.75 % - Ao root diameter (2D) 3.02 cm (2 - 3.7) Volumes/Mass Name Value Normal Range LA ESV SP 4CH (A/L) 55.87 ml - LA ESV SP 2CH (A/L) 67.65 ml - LA ESV BP (A/L) 63.67 ml - LA ESV SP 4CH (MOD) 54.25 ml - LA ESV SP 2CH (MOD) 63.2 ml - LA ESV BP (MOD) 60.49 ml - LA ESV BP (MOD) index 34.18 ml/m2 - LV EDV SP 4CH (MOD) 70.96 ml - LV ESV SP 4CH (MOD) 23.49 ml - EF SP 4CH (MOD) 66.89 % - LV EDV SP 2CH (MOD) 61.41 ml - LV ESV SP 2CH (MOD) 27.43 ml - EF SP 2CH (MOD) 55.33 % - LV EDV BP 69.85 ml - LV ESV BP 26.44 ml - BP EF (MOD) 62.14 % - Aortic Valve Name Value Normal Range AV Vmax 1.29 m/sec - AV VTI 18.56 cm - AV peak gradient 6.69 mmHg - AV mean gradient 3.39 mmHg - LVOT diameter 1.95 cm - LVOT Vmax 1.14 m/sec - LVOT VTI 16.24 cm - LVOT peak gradient 5.21 mmHg - LVOT mean gradient 2.04 mmHg - SV LVOT 48.71 ml - TABATHA (continuity Vmax) 2.65 cm2 - TABATHA (continuity VTI) 2.62 cm2 - Ascending Ao 2.96 cm - Tricuspid Valve Name Value Normal Range TR Vmax 2.47 m/sec - TR peak gradient 24 mmHg - RAP 15 mmHg - RVSP 39 mmHg - Pulmonic Valve/Qp:Qs Name Value Normal Range PV Vmax 1.15 m/sec - PV peak gradient 5.33 mmHg - PV acceleration time 68.51 msec - Acevedo/IV: Voiding Method Indwelling Catheter IV Catheter Type [Left Upper PICC Line arm] IV Catheter Type [Right INT / Saline Lock Antecubital] IV Catheter Type [Right Peripheral IV Forearm] IV Catheter Type [Left Forearm INT / Saline Lock ] IV Catheter Type [Right Hand] Peripheral IV Active Medications - Current Medications Current Medications: Generic Name Dose Route Start Last Admin Trade Name Freq PRN Reason Stop Dose Admin Acetaminophen 650 mg 02/11/20 19:01 02/12/20 17:00 Tylenol PO 650 mg Q4H PRN Administration Pain MILD(1-3)/Fever >100.5/ADAMS Lipase/Protease/Amylase 1 each 02/20/20 10:[address] 10,500 Unit FEEDTUBE PRN PRN For Clogged Feeding Tube Dextrose 50 ml 02/19/20 14:58 D50w (25gm) Syringe IV Q30MIN PRN Hypoglycemia Protocol Famotidine 20 mg 02/17/20 10:00 02/20/20 09:47 Pepcid IV 20 mg DAILY NADER Administration Fentanyl 50 mcg 02/19/20 15:30 02/19/20 15:29 Sublimaze IV 50 mcg Q10MIN PRN Administration ANALGESIA Hydromorphone HCl 1 mg 02/14/20 13:00 02/19/20 12:10 Dilaudid IV 1 mg Q3H PRN Administration Pain , Severe (7-10) Hydrophilic Ointment 1 applic 02/13/20 19:41 Vaseline Lip Therapy TP Q2HR PRN Dry Lips Metronidazole 500 mg in 100 mls @ 100 mls/hr 02/12/20 15:40 02/20/20 13:41 Flagyl 500 Mg/100 Ml IV 02/22/20 15:39 100 mls/hr Q8HR NADER Administration Heparin Sodium/Sodium Chloride 25,000 unit in 500 mls @ 20 mls/hr 02/13/20 20:00 02/20/20 12:38 Heparin/ 0.45% Nacl-25,000 Unit/500 Ml IV 1,150 units/hr TITR NADER 23 mls/hr Administration Protocol 1,000 UNITS/HR Cefepime HCl 1 gm in 100 mls @ 200 mls/hr 02/16/20 10:00 02/20/20 10:20 Cefepime/Ns 1 Gm/100 Ml IV 02/22/20 10:29 Infused Q24HR NADER Infusion Protocol Diltiazem HCl 100 mg in 100 mls @ 2.5 mls/hr 02/16/20 12:19 02/20/20 01:58 Cardizem/D5w 100mg/100ml IV 2.5 mg/hr TITR NADER 2.5 mls/hr Administration 2.5 MG/HR Amiodarone HCl 900 mg/ 500 mls @ 33.333 mls/hr 02/19/20 11:00 02/20/20 07:00 Dextrose IV 0.5 mg/min DIRECT NADER 16.667 mls/hr Infusion Protocol 1 MG/MIN Amino Acids/Electrolytes/Dextrose 2,016 mls @ 84 mls/hr 02/19/20 20:00 02/19/20 21:13 Tpn Adult IV 02/20/20 19:59 84 mls/hr DAILY@[email or web address] [facility] Administration Protocol Fluconazole 100 mg in 50 mls @ 50 mls/hr 02/19/20 13:00 02/20/20 10:50 Diflucan/Ns 100 Mg/50 Ml IV 02/21/20 10:59 Infused Q24HR NADER Infusion Protocol Fentanyl Citrate 2,000 mcg in 100 mls @ 4.05 mls/hr 02/19/20 16:00 02/20/20 09:47 Fentanyl Drip Premix IV 2 mcg/kg/hr TITR NADER 8.1 mls/hr Administration Protocol 1 MCG/KG/HR Amino Acids/Electrolytes/Dextrose 1,800 mls @ 75 mls/hr 02/20/20 20:00 Tpn Adult IV 02/21/20 19:59 DAILY@[email or web address] [facility] Protocol Insulin Glargine 15 units 02/20/20 14:00 Lantus SUB-Q BID NADER Insulin Human Lispro 0 unit 02/19/20 18:00 02/20/20 12:27 Humalog SUB-Q 6 unit Q6HR NADER Administration Protocol Labetalol HCl 20 mg 02/13/20 18:00 02/20/20 12:29 Labetalol IV 20 mg Q4H PRN Administration SBP >150 Metoprolol Tartrate 2.5 mg 02/13/20 18:00 02/18/20 04:41 Metoprolol IV 2.5 mg Q6HR PRN Administration HR >130 Multi-Ingred Cream/Lotion/Oil/Oint 1 applic 02/13/20 19:41 Artificial Tears Ophth Oint OU Q4HR PRN Dry Eye(s) Simple Syrup 15 ml 02/20/20 10:28 Simple Syrup FEEDTUBE PRN PRN Hypoglycemia Simple Syrup 30 ml 02/20/20 10:28 Simple Syrup FEEDTUBE PRN PRN Hypoglycemia Sodium Bicarbonate 325 mg 02/20/20 10:28 Sodium Bicarbonate FEEDTUBE PRN PRN For Clogged Feeding Tube Sodium Chloride 10 ml 02/11/20 22:00 02/20/20 09:46 Sodium Chloride Flush Syringe 10 Ml IV 10 ml BID NADER Administration Sodium Chloride 10 ml 02/11/20 19:01 02/15/20 22:43 Sodium Chloride Flush Syringe 10 Ml IV 10 ml PRN PRN Administration LINE FLUSH Vancomycin HCl 125 mg 02/20/20 15:00 Vancomycin Po PO 02/27/20 06:01 Q6HR [facility] Nutrition/Malnutrition Assess - Dietary Evaluation Nutrition/Malnutrition Findings: Nutrition Notes Start: 02/14/20 09:49 Freq: Status: Active Protocol: Document 02/20/20 07:40 LP (Rec: 02/20/20 07:54 LP [id number]) Nutrition Notes Initial or Follow up Reassessment Current Diagnosis Acute Kidney Injury,Decubitus( Pressure Ulcer),Diabetes, Hypertension,Hyperlipidemia Other Pertinent Diagnosis ischemic bowel with gangrene s /p exp lap, Current Diet PPN at 84ml/hr Labs/Tests K 3.5 Phos 6.5 BG 353 Pertinent Medications Reviewed Height 5 ft 5 in Weight 86 kg Windfall Body Weight (kg) 56.81 BMI 31.5 Weight change and time frame Wt change due to fluid Weight Status Obese Subjective/Other Information CPN day 3. Pt continues with NGT to LIS. Addendem: MD started on TF Vital 1.2 at 10ml/hr and not advancing. Percent of energy/protein needs met: 50%/89% Burn Absent Trauma Absent Current % PO Negligible Minimum of two criteria No #2 Nutrition Diagnosis Inadequate oral intake Etiology Altered GI function As Evidenced by Signs and Symptoms Pt unable to consume PO due to ischemic bowel and vent #1 Nutrition Diagnosis Altered GI function Diagnosis Progress(for reassessment Continues documentation) Is patient on ventilator? Yes Is Patient Ambulatory and/or Out of Bed No REE-([facility]-confined to bed) 1170.066 Calculation Used for Recommendations [facility] Additional Notes Pro needs 1.2-2g/k-140g/ day Fluid needs 1ml/kcal Nutrition Intervention Change Diet Order: TPN and TF Nutrition Support: Change to CPN at 75ml/hr: 6.9% dextrose, 4.2% amino acid , 67mEq Na,, 45 mEq K, 14mEq Mg, 4mEq Ca, 0mmol phos, Chloride:Acetate 0:100, MVI, Thiamine Vital 1.2 at 10ml/hr per MD Kcal 725 Protein (gm) 75 Carbohydrates (gm) 125 Fat (gm) 0 Fluid (mL) 1,800 Fiber (gm) 0 Goal #1 Meet at least 75% of energy and protein needs Anticipated Discharge Needs: Unable to identify at this time Follow-Up By: 02/21/20 Additional Comments Labs in AM: BMP, Mg TF tolerance
[2020-02-20] MEDS: INSULIN GLARGINE 100 UNITS/ML SUB-Q SCH ×2 (14:07→22:46)
--- NOTE | 2020-02-20 14:36 | Progress Note ---
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 * leucocytosis * type 2 DM--uncontrolled * Acidosis * Hypokalemia * Hypocalcemia * Anemia Plan: * Creatinine slightly higher but fairly stable at 5.4, remains non-oliguric; no indication for renal replacement therapy emergently but given need for additional volume removal, acidosis, will consult vascular for dialysis catheter placement and potentially start HD tomorrow. Discussed with pulmonary Dr. Cervantes who is attempting PS trials to assess patient's ability to wean off vent * S/p IV Lasix 100mg yesterday with 1.6L urine output; will administer another high dose IV lasix bolus today to promote further diuresis * Acidosis stable s/p 3 amps HCO3 yesterday, continue to follow * Remains at high risk for needing renal replacement therapy; discussed this with patient's granddaughter again today and explained that will continue medical management of acidosis and volume for now, but if remains refractory, will plan for dialysis catheter replacement and initiation of renal replacement therapy tomorrow. Verbal consent for dialysis obtained * Continue iv abx per ID recs * surgery note reviewed, s/p surgery, OR note reviewed, input appreciated * PRBC transfusion prn per primary, agree with holding for now given tenuous volume status * Daily lytes; strict i/os * Avoid nephrotoxins * CT noted, no stones or hydronephrosis * vasopressors prn Thank for involving in the care of this critically ill patient. We will follow closely with you; please do not hesitate to call me on my cell at for any renal related issues. High risk for decompensation and needing renal replacement therapy. CC time >32 minutes in assessing chart, patient at bedside, coordination of care with other medical providers and family Subjective Date of service: 02/20/20 Principal diagnosis: Ischemic Bowel Interval history: No acute changes noted Objective - Exam Narrative Exam: Gen: Intubated, opens eyes ENT: ETT in place CV: s1, S2, on dilt gtt Resp: on vent Abd: soft Ext: no c/c/e : corcoran with clear yellow urine Neuro: opens eye spontaneously - Vital Signs Vital signs: Vital Signs - 12hr 02/20/20 02/20/20 02/20/20 03:00 03:30 03:41 Temperature 97.4 F L Pulse Rate 85 120 H Pulse Rate [ From Monitor] Respiratory 16 12 Rate Blood Pressure 144/73 151/92 O2 Sat by Pulse 100 100 Oximetry 02/20/20 02/20/20 02/20/20 04:00 04:30 04:44 Temperature Pulse Rate 94 H 88 94 H Pulse Rate [ 81 From Monitor] Respiratory 15 14 Rate Blood Pressure 176/68 138/83 138/83 O2 Sat by Pulse 100 100 100 Oximetry 02/20/20 02/20/20 02/20/20 05:00 05:30 06:00 Temperature Pulse Rate 93 H 105 H 100 H Pulse Rate [ From Monitor] Respiratory 15 15 15 Rate Blood Pressure 141/79 144/90 153/109 O2 Sat by Pulse 100 100 100 Oximetry 02/20/20 02/20/20 02/20/20 06:30 07:00 07:30 Temperature Pulse Rate 89 87 86 Pulse Rate [ From Monitor] Respiratory 15 15 15 Rate Blood Pressure 125/68 130/68 136/97 O2 Sat by Pulse 100 100 97 Oximetry 02/20/20 02/20/20 02/20/20 08:00 08:13 08:30 Temperature 97.4 F L Pulse Rate 109 H 89 112 H Pulse Rate [ 109 H From Monitor] Respiratory 11 L 16 Rate Blood Pressure 153/79 125/68 144/80 O2 Sat by Pulse 98 100 99 Oximetry 02/20/20 02/20/20 02/20/20 09:00 09:30 10:00 Temperature Pulse Rate 113 H 112 H 98 H Pulse Rate [ From Monitor] Respiratory 14 17 16 Rate Blood Pressure 152/83 153/86 145/81 O2 Sat by Pulse 99 100 100 Oximetry 02/20/20 02/20/20 02/20/20 10:30 11:00 11:30 Temperature Pulse Rate 94 H 85 104 H Pulse Rate [ From Monitor] Respiratory 16 17 19 Rate Blood Pressure 148/84 185/71 160/88 O2 Sat by Pulse 100 100 100 Oximetry 02/20/20 02/20/20 02/20/20 12:00 12:09 12:29 Temperature 97.4 F L Pulse Rate 97 H 113 H 99 H Pulse Rate [ 97 H From Monitor] Respiratory 12 Rate Blood Pressure 148/73 152/83 166/80 O2 Sat by Pulse 100 99 Oximetry 02/20/20 02/20/20 02/20/20 12:30 13:00 13:02 Temperature Pulse Rate 105 H 69 105 H Pulse Rate [ From Monitor] Respiratory 15 17 15 Rate Blood Pressure 150/88 119/58 150/88 O2 Sat by Pulse 100 100 100 Oximetry - Lab 02/20/20 03:15 02/20/20 03:15 Most recent lab results ABG pH 7.364 pH Units (7.350-7.450) 02/20/20 04:29 ABG pCO2 38.2 mm Hg 02/20/20 04:29 ABG pO2 83.8 mm Hg (80.0-90.0) 02/20/20 04:29 ABG HCO3 21.3 mmol/L (20.0-26.0) 02/20/20 04:29 ABG O2 Saturation 96.8 % (95.0-99.0) 02/20/20 04:29 Calcium 8.3 mg/dL (8.4-10.2) L 02/20/20 03:15 Phosphorus 6.50 mg/dL (2.5-4.5) H 02/20/20 03:15 Magnesium 2.00 mg/dL (1.7-2.3) 02/20/20 03:15 Urine Creatinine 35.3 mg/dL (0.1-20.0) H 02/12/20 Unknown Urine Total Protein 796 mg/dL (5-11.8) H 02/12/20 Unknown Medications & Allergies - Medications Allergies/Adverse Reactions: Allergies clindamycin Allergy (Verified 02/11/20 14:52) Hives Home Medications: Home Medications Medication Instructions Recorded Confirmed Last Taken Type Doxazosin [Cardura] 4 mg PO QDAY 02/11/20 02/11/20 02/10/20 History Hydralazine HCl 50 mg PO DAILY 02/11/20 02/11/20 02/10/20 History Metoprolol 25 mg PO DAILY 02/11/20 02/11/20 02/10/20 History Sertraline [Zoloft] 50 mg PO QDAY 02/11/20 02/11/20 02/10/20 History amLODIPine [Norvasc] 10 mg PO DAILY 0602/11/20 02/10/20 History glipiZIDE 10 mg PO BID 02/11/20 02/11/20 02/10/20 History Active Medications: Generic Name Dose Route Start Last Admin Trade Name Freq PRN Reason Stop Dose Admin Acetaminophen 650 mg 02/11/20 19:01 02/12/20 17:00 Tylenol PO 650 mg Q4H PRN Administration Pain MILD(1-3)/Fever >100.5/ADAMS Lipase/Protease/Amylase 1 each 02/20/20 10:[address] 10,500 Unit FEEDTUBE PRN PRN For Clogged Feeding Tube Dextrose 50 ml 02/19/20 14:58 D50w (25gm) Syringe IV Q30MIN PRN Hypoglycemia Protocol Famotidine 20 mg 02/17/20 10:00 02/20/20 09:47 Pepcid IV 20 mg DAILY NADER Administration Fentanyl 50 mcg 02/19/20 15:30 02/19/20 15:29 Sublimaze IV 50 mcg Q10MIN PRN Administration ANALGESIA Hydromorphone HCl 1 mg 02/14/20 13:00 02/19/20 12:10 Dilaudid IV 1 mg Q3H PRN Administration Pain , Severe (7-10) Hydrophilic Ointment 1 applic 02/13/20 19:41 Vaseline Lip Therapy TP Q2HR PRN Dry Lips Metronidazole 500 mg in 100 mls @ 100 mls/hr 02/12/20 15:40 02/20/20 13:41 Flagyl 500 Mg/100 Ml IV 02/22/20 15:39 100 mls/hr Q8HR NADER Administration Heparin Sodium/Sodium Chloride 25,000 unit in 500 mls @ 20 mls/hr 02/13/20 20:00 02/20/20 12:38 Heparin/ 0.45% Nacl-25,000 Unit/500 Ml IV 1,150 units/hr TITR NADER 23 mls/hr Administration Protocol 1,000 UNITS/HR Cefepime HCl 1 gm in 100 mls @ 200 mls/hr 02/16/20 10:00 02/20/20 10:20 Cefepime/Ns 1 Gm/100 Ml IV 02/22/20 10:29 Infused Q24HR NADER Infusion Protocol Diltiazem HCl 100 mg in 100 mls @ 2.5 mls/hr 02/16/20 12:19 02/20/20 01:58 Cardizem/D5w 100mg/100ml IV 2.5 mg/hr TITR NADER 2.5 mls/hr Administration 2.5 MG/HR Amiodarone HCl 900 mg/ 500 mls @ 33.333 mls/hr 02/19/20 11:00 02/20/20 07:00 Dextrose IV 0.5 mg/min DIRECT NADER 16.667 mls/hr Infusion Protocol 1 MG/MIN Amino Acids/Electrolytes/Dextrose 2,016 mls @ 84 mls/hr 02/19/20 20:00 02/19/20 21:13 Tpn Adult IV 02/20/20 19:59 84 mls/hr DAILY@1999 [facility] Administration Protocol Fluconazole 100 mg in 50 mls @ 50 mls/hr 02/19/20 13:00 02/20/20 10:50 Diflucan/Ns 100 Mg/50 Ml IV 02/21/20 10:59 Infused Q24HR [facility] Infusion Protocol Fentanyl Citrate 2,000 mcg in 100 mls @ 4.05 mls/hr 02/19/20 16:00 02/20/20 09:47 Fentanyl Drip Premix IV 2 mcg/kg/hr TITR NADER 8.1 mls/hr Administration Protocol 1 MCG/KG/HR Amino Acids/Electrolytes/Dextrose 1,800 mls @ 75 mls/hr 02/20/20 20:00 Tpn Adult IV 02/21/20 19:59 DAILY@1999 [facility] Protocol Insulin Glargine 15 units 02/20/20 14:00 Lantus SUB-Q BID [facility] Insulin Human Lispro 0 unit 02/19/20 18:00 02/20/20 12:27 Humalog SUB-Q 6 unit Q6HR [facility] Administration Protocol Labetalol HCl 20 mg 02/13/20 18:00 02/20/20 12:29 Labetalol IV 20 mg Q4H PRN Administration SBP >150 Metoprolol Tartrate 2.5 mg 02/13/20 18:00 02/18/20 04:41 Metoprolol IV 2.5 mg Q6HR PRN Administration HR >130 Multi-Ingred Cream/Lotion/Oil/Oint 1 applic 02/13/20 19:41 Artificial Tears Ophth Oint OU Q4HR PRN Dry Eye(s) Simple Syrup 15 ml 02/20/20 10:28 Simple Syrup FEEDTUBE PRN PRN Hypoglycemia Simple Syrup 30 ml 02/20/20 10:28 Simple Syrup FEEDTUBE PRN PRN Hypoglycemia Sodium Bicarbonate 325 mg 02/20/20 10:28 Sodium Bicarbonate FEEDTUBE PRN PRN For Clogged Feeding Tube Sodium Chloride 10 ml 02/11/20 22:00 02/20/20 09:46 Sodium Chloride Flush Syringe 10 Ml IV 10 ml BID NADER Administration Sodium Chloride 10 ml 02/11/20 19:01 02/15/20 22:43 Sodium Chloride Flush Syringe 10 Ml IV 10 ml PRN PRN Administration LINE FLUSH Vancomycin HCl 125 mg 02/20/20 15:00 Vancomycin Po PO 02/27/20 06:01 Q6HR NADER
[2020-02-20] MEDS ORDERED: FUROSEMIDE 100 MG/10 ML INJ IV ONE (14:42)
[2020-02-20] MEDS ORDERED: FUROSEMIDE 100 MG in SODIUM CHLORIDE 0.9% 50 ML IV SCH (15:00)
[2020-02-20] MEDS: VANCOMYCIN 250 MG/10 ML ORAL LIQD PO SCH ×3 (15:45→23:35)
--- NOTE | 2020-02-20 17:06 | XRay Report ---
CHEST 1 VIEW INDICATION / CLINICAL INFORMATION: Vascath placement. COMPARISON: 0330 hours FINDINGS: SUPPORT DEVICES: Endotracheal tube is in place as well as PICC line and NG tube. A vas catheter has b een placed from a right jugular approach with the tip in the region of the superior vena cava appeari ng to be in good position. HEART / MEDIASTINUM: No significant abnormality. LUNGS / PLEURA: No significant pulmonary or pleural abnormality. No pneumothorax. ADDITIONAL FINDINGS: None IMPRESSION: 1 Vas-Cath placement without definite complication. Signer Name: Abdiaziz Berman MD Signed: 02/20/2020 5:02 PM Workstation Name: [id number]
[2020-02-20] MEDS ORDERED: TOTAL PARENTERAL NUTRITION 1,800 ML IV SCH (20:00)
[2020-02-20] MEDS ORDERED: INSULIN LISPRO 100 UNIT/ML SUB-Q ONE (20:08)
[2020-02-20] MEDS ORDERED: FUROSEMIDE 40 MG/4 ML INJ IV ONE (20:29)
[2020-02-21 04:42] LABS: Hemoglobin 5.9 gm/dl (10.1-14.3)
[2020-02-21 04:43] LABS: Hematocrit 18.5 % (30.3-42.9)
[2020-02-21 04:46] LABS: Calcium 8.1 mg/dL (8.4-10.2)
[2020-02-21 05:16] LABS: ABG Oxygen Saturation 97.2 % (95.0-99.0)
[2020-02-21 05:19] LABS: ABG Base Excess -4.4 mmol/L (-2.0-3.0); ABG HCO3 21.4 mmol/L (20.0-26.0); ABG Methemoglobin 0.7 % (0.0-1.5); ABG PCO2 42.7 mm Hg; ABG PH 7.318 pH Units (7.350-7.450)
[2020-02-21] MEDS ORDERED: SODIUM CHLORIDE 0.9% 500 ML 500 ML IV ONE (05:27)
[2020-02-21] MEDS ORDERED: FUROSEMIDE 20 MG/2 ML INJ IV ONE ×2 (06:11→14:00)
[2020-02-21] MEDS: INSULIN LISPRO 100 UNIT/ML SUB-Q SCH ×3 (06:22→18:40)
[2020-02-21] MEDS: metroNIDAZOLE/NS 500 MG/100 ML 500 MG/100 ML BAG IV SCH ×3 (06:23→21:01)
[2020-02-21] MEDS: VANCOMYCIN 250 MG/10 ML ORAL LIQD PO SCH ×3 (06:24→18:18)
[2020-02-21] MEDS: fentaNYL DRIP Premix 2,000 MCG/100 ML BAG IV SCH ×2 (06:44→23:20)
[2020-02-21] MEDS: dilTIAZem/D5W 100 MG/100 ML BAG IV SCH (06:44)
[2020-02-21] MEDS: AMIODARONE 900 MG in DEXTROSE 5% IN WATER 482 ML IV SCH (08:27)
--- NOTE | 2020-02-21 08:59 | Progress Note ---
Assessment and Plan - Patient Problems (1) Acute renal failure Current Visit: Yes Status: Acute (2) Atrial fibrillation Current Visit: Yes Status: Acute (3) Ischemic necrosis of small bowel Current Visit: Yes Status: Acute (4) Acute respiratory failure Current Visit: Yes Status: Acute (5) Acute kidney injury (LITZY) with acute tubular necrosis (ATN) Current Visit: Yes Status: Acute (6) Systemic inflammatory response syndrome Current Visit: Yes Status: Acute Subjective Principal diagnosis: Ischemic Bowel Interval history: on vent on cpap Objective - Exam Narrative Exam: CPAP 6 ps 10 fio2 30% MV 7.8 Vital Signs - 12hr 02/20/20 02/20/20 02/20/20 21:00 21:16 21:30 Temperature Pulse Rate 87 75 81 Respiratory 12 18 14 Rate Blood Pressure 120/60 138/66 128/72 O2 Sat by Pulse 99 99 99 Oximetry 02/20/20 02/20/20 02/20/20 21:45 22:00 22:15 Temperature Pulse Rate 80 66 70 Respiratory 16 16 16 Rate Blood Pressure 125/64 119/57 119/57 O2 Sat by Pulse 99 99 100 Oximetry 02/20/20 02/20/20 02/20/20 22:30 22:45 23:00 Temperature Pulse Rate 70 74 71 Respiratory 16 16 15 Rate Blood Pressure 118/59 132/62 134/61 O2 Sat by Pulse 99 99 99 Oximetry 02/20/20 02/20/20 02/20/20 23:12 23:15 23:30 Temperature Pulse Rate 71 78 75 Respiratory 16 16 Rate Blood Pressure 134/61 128/62 124/62 O2 Sat by Pulse 99 100 99 Oximetry 02/20/20 02/21/20 02/21/20 23:46 00:00 00:15 Temperature 97.7 F Pulse Rate 79 73 78 Respiratory 11 L 15 17 Rate Blood Pressure 137/69 130/70 127/75 O2 Sat by Pulse 98 99 99 Oximetry 02/21/20 02/21/20 02/21/20 00:30 00:45 01:00 Temperature Pulse Rate 86 79 74 Respiratory 16 16 17 Rate Blood Pressure 138/75 127/64 129/64 O2 Sat by Pulse 99 99 99 Oximetry 02/21/20 02/21/20 02/21/20 01:15 01:30 01:45 Temperature Pulse Rate 77 76 85 Respiratory 16 13 17 Rate Blood Pressure 126/63 136/71 131/78 O2 Sat by Pulse 99 99 100 Oximetry 02/21/20 02/21/20 02/21/20 02:00 02:16 02:30 Temperature Pulse Rate 94 H 90 91 H Respiratory 12 16 14 Rate Blood Pressure 146/74 146/74 146/74 O2 Sat by Pulse 99 99 98 Oximetry 02/21/20 02/21/20 02/21/20 02:45 03:00 03:16 Temperature Pulse Rate 87 80 91 H Respiratory 15 17 16 Rate Blood Pressure 119/77 122/62 140/71 O2 Sat by Pulse 98 99 99 Oximetry 02/21/20 02/21/20 02/21/20 03:30 03:45 04:00 Temperature 97.9 F Pulse Rate 73 85 91 H Respiratory 16 15 16 Rate Blood Pressure 127/61 138/75 146/70 O2 Sat by Pulse 99 99 99 Oximetry 02/21/20 02/21/20 02/21/20 04:15 04:30 04:42 Temperature Pulse Rate 92 H 86 83 Respiratory 18 13 Rate Blood Pressure 154/61 154/61 125/53 O2 Sat by Pulse 99 99 99 Oximetry 02/21/20 02/21/20 02/21/20 04:46 05:00 05:15 Temperature Pulse Rate 86 91 H 79 Respiratory 15 16 16 Rate Blood Pressure 131/78 131/78 124/63 O2 Sat by Pulse 99 99 99 Oximetry 02/21/20 02/21/20 02/21/20 05:30 05:45 06:00 Temperature Pulse Rate 86 76 75 Respiratory 16 15 17 Rate Blood Pressure 128/62 119/61 119/61 O2 Sat by Pulse 99 99 99 Oximetry 02/21/20 02/21/20 02/21/20 06:15 06:30 06:45 Temperature Pulse Rate 83 91 H 98 H Respiratory 16 14 14 Rate Blood Pressure 126/74 136/70 115/89 O2 Sat by Pulse 99 99 99 Oximetry 02/21/20 02/21/20 02/21/20 07:00 07:10 07:15 Temperature 97.6 F Pulse Rate 101 H 93 H Respiratory 16 15 Rate Blood Pressure 133/60 133/60 O2 Sat by Pulse 99 100 Oximetry 02/21/20 02/21/20 02/21/20 07:30 07:45 08:00 Temperature Pulse Rate 75 83 88 Respiratory 16 17 16 Rate Blood Pressure 133/64 137/67 120/69 O2 Sat by Pulse 99 100 100 Oximetry 02/21/20 02/21/20 08:15 08:30 Temperature Pulse Rate 109 H 78 Respiratory 17 13 Rate Blood Pressure 134/81 133/56 O2 Sat by Pulse 99 99 Oximetry Constitutional: other (on vent intubated.) Eyes: non-icteric ENT: other (orally intubated ) Effort: normal Ascultation: Bilateral: clear Percussion: Bilateral: not dull Cardiovascular: irregular rhythm (but rate controlled) Gastrointestinal: other (post surgical changes) Integumentary: normal Extremities: edema Neurologic: unable to assess (on vent) CBC and BMP: 02/21/20 03:53 02/21/20 03:53 ABG, PT/INR, D-dimer: ABG ABG pH 7.318 pH Units (7.350-7.450) L 02/21/20 04:16 ABG pCO2 42.7 mm Hg 02/21/20 04:16 ABG pO2 100.0 mm Hg (80.0-90.0) H 02/21/20 04:16 ABG O2 Saturation 97.2 % (95.0-99.0) 02/21/20 04:16 PT/INR, D-dimer PT 16.9 Sec. (12.2-14.9) H 02/13/20 20:10 INR 1.41 (0.87-1.13) H 02/13/20 20:10 Abnormal lab findings: Abnormal Labs 02/11/20 02/11/20 02/11/20 15:27 15:27 15:27 WBC 22.5 H RBC Hgb Hct MCHC RDW Plt Count Seg Neuts % (Manual) 90.0 H Lymphocytes % (Manual) 4.0 L Seg Neutrophils # Man 20.3 H Lymphocytes # (Manual) 0.9 L Monocytes # (Manual) 1.1 H PT INR APTT 23.3 L Heparin Anti-Xa Level ABG pH ABG pO2 ABG HCO3 ABG O2 Saturation ABG Base Excess ABG Hemoglobin Oxyhemoglobin Sodium 132 L Potassium Chloride 96.0 L Carbon Dioxide 16 L BUN 59 H Creatinine 3.0 H Glucose 487 H POC Glucose Calcium Phosphorus Magnesium Alkaline Phosphatase 142 H Albumin Triglycerides Lipase 86 H Urine WBC (Auto) Urine Creatinine Urine Total Protein Crossmatch 02/12/20 02/12/20 02/12/20 04:58 04:58 Unknown WBC 30.0 H RBC Hgb Hct MCHC RDW Plt Count Seg Neuts % (Manual) 96.0 H Lymphocytes % (Manual) 1.0 L Seg Neutrophils # Man 28.8 H Lymphocytes # (Manual) 0.3 L Monocytes # (Manual) 0.9 H PT INR APTT Heparin Anti-Xa Level ABG pH ABG pO2 ABG HCO3 ABG O2 Saturation ABG Base Excess ABG Hemoglobin Oxyhemoglobin Sodium Potassium Chloride Carbon Dioxide 15 L BUN 59 H Creatinine 3.0 H Glucose 477 H POC Glucose Calcium Phosphorus Magnesium Alkaline Phosphatase Albumin 3.5 L Triglycerides Lipase Urine WBC (Auto) Urine Creatinine 35.3 H Urine Total Protein 796 H Crossmatch 02/13/20 02/13/20 02/13/20 05:43 05:43 13:24 WBC 38.2 H RBC Hgb Hct 43.6 H MCHC RDW Plt Count Seg Neuts % (Manual) 91.0 H Lymphocytes % (Manual) 4.0 L Seg Neutrophils # Man 34.8 H Lymphocytes # (Manual) Monocytes # (Manual) 1.1 H PT INR APTT Heparin Anti-Xa Level ABG pH ABG pO2 ABG HCO3 ABG O2 Saturation ABG Base Excess ABG Hemoglobin Oxyhemoglobin Sodium 136 L Potassium Chloride Carbon Dioxide 11 L BUN 71 H Creatinine 4.0 H Glucose 343 H POC Glucose 337 H Calcium Phosphorus Magnesium Alkaline Phosphatase Albumin Triglycerides Lipase Urine WBC (Auto) Urine Creatinine Urine Total Protein Crossmatch 02/13/20 02/13/20 02/13/20 16:49 16:50 17:30 WBC RBC Hgb Hct MCHC RDW Plt Count Seg Neuts % (Manual) Lymphocytes % (Manual) Seg Neutrophils # Man Lymphocytes # (Manual) Monocytes # (Manual) PT INR APTT Heparin Anti-Xa Level ABG pH 7.226 L ABG pO2 77.9 L ABG HCO3 16.4 L ABG O2 Saturation ABG Base Excess -10.5 L ABG Hemoglobin 11.7 L Oxyhemoglobin 92.8 L Sodium Potassium Chloride Carbon Dioxide BUN Creatinine Glucose POC Glucose 272 H Calcium Phosphorus Magnesium Alkaline Phosphatase Albumin Triglycerides Lipase Urine WBC (Auto) Urine Creatinine Urine Total Protein Crossmatch See Detail 02/13/20 02/13/20 02/14/20 20:10 22:08 00:22 WBC RBC Hgb Hct MCHC RDW Plt Count Seg Neuts % (Manual) Lymphocytes % (Manual) Seg Neutrophils # Man Lymphocytes # (Manual) Monocytes # (Manual) PT 16.9 H INR 1.41 H APTT Heparin Anti-Xa Level ABG pH 7.158 L* ABG pO2 ABG HCO3 18.6 L ABG O2 Saturation ABG Base Excess -10.2 L ABG Hemoglobin 11.9 L Oxyhemoglobin 93.1 L Sodium Potassium Chloride Carbon Dioxide BUN Creatinine Glucose POC Glucose 199 H Calcium Phosphorus Magnesium Alkaline Phosphatase Albumin Triglycerides Lipase Urine WBC (Auto) Urine Creatinine Urine Total Protein Crossmatch 02/14/20 02/14/20 02/14/20 03:45 04:29 04:29 WBC 14.4 H RBC Hgb Hct MCHC RDW 15.3 H Plt Count Seg Neuts % (Manual) 88.0 H Lymphocytes % (Manual) 6.0 L Seg Neutrophils # Man 12.7 H Lymphocytes # (Manual) 0.9 L Monocytes # (Manual) PT INR APTT Heparin Anti-Xa Level ABG pH 7.193 L* ABG pO2 ABG HCO3 16.4 L ABG O2 Saturation ABG Base Excess -11.2 L ABG Hemoglobin 10.2 L Oxyhemoglobin 94.3 L Sodium Potassium Chloride 108.5 H Carbon Dioxide 16 L BUN 73 H Creatinine 4.3 H Glucose 167 H POC Glucose Calcium 8.0 L Phosphorus Magnesium Alkaline Phosphatase Albumin Triglycerides Lipase Urine WBC (Auto) Urine Creatinine Urine Total Protein Crossmatch 02/14/20 02/14/20 02/14/20 05:26 12:11 18:34 WBC RBC Hgb Hct MCHC RDW Plt Count Seg Neuts % (Manual) Lymphocytes % (Manual) Seg Neutrophils # Man Lymphocytes # (Manual) Monocytes # (Manual) PT INR APTT Heparin Anti-Xa Level ABG pH ABG pO2 ABG HCO3 ABG O2 Saturation ABG Base Excess ABG Hemoglobin Oxyhemoglobin Sodium Potassium Chloride Carbon Dioxide BUN Creatinine Glucose POC Glucose 177 H 160 H 135 H Calcium Phosphorus Magnesium Alkaline Phosphatase Albumin Triglycerides Lipase Urine WBC (Auto) Urine Creatinine Urine Total Protein Crossmatch 02/14/20 02/15/20 02/15/20 23:18 03:19 04:28 WBC RBC Hgb Hct MCHC RDW Plt Count Seg Neuts % (Manual) Lymphocytes % (Manual) Seg Neutrophils # Man Lymphocytes # (Manual) Monocytes # (Manual) PT INR APTT Heparin Anti-Xa Level ABG pH 7.246 L ABG pO2 ABG HCO3 13.7 L ABG O2 Saturation ABG Base Excess -12.5 L ABG Hemoglobin 8.4 L Oxyhemoglobin 94.6 L Sodium Potassium Chloride Carbon Dioxide 12 L BUN 72 H Creatinine 4.7 H Glucose 147 H POC Glucose 138 H Calcium 7.9 L Phosphorus Magnesium Alkaline Phosphatase Albumin Triglycerides Lipase Urine WBC (Auto) Urine Creatinine Urine Total Protein Crossmatch 02/15/20 02/15/20 02/15/20 04:28 05:35 12:07 WBC RBC 2.88 L Hgb 8.6 L Hct 25.4 L D MCHC RDW 15.6 H Plt Count Seg Neuts % (Manual) Lymphocytes % (Manual) Seg Neutrophils # Man Lymphocytes # (Manual) Monocytes # (Manual) PT INR APTT Heparin Anti-Xa Level ABG pH ABG pO2 ABG HCO3 ABG O2 Saturation ABG Base Excess ABG Hemoglobin Oxyhemoglobin Sodium Potassium Chloride Carbon Dioxide BUN Creatinine Glucose POC Glucose 181 H 136 H Calcium Phosphorus Magnesium Alkaline Phosphatase Albumin Triglycerides Lipase Urine WBC (Auto) Urine Creatinine Urine Total Protein Crossmatch 02/15/20 02/15/20 02/16/20 17:50 23:18 04:20 WBC RBC Hgb Hct MCHC RDW Plt Count Seg Neuts % (Manual) Lymphocytes % (Manual) Seg Neutrophils # Man Lymphocytes # (Manual) Monocytes # (Manual) PT INR APTT Heparin Anti-Xa Level ABG pH ABG pO2 77.4 L ABG HCO3 ABG O2 Saturation ABG Base Excess -4.7 L ABG Hemoglobin 5.0 L Oxyhemoglobin Sodium Potassium Chloride Carbon Dioxide BUN Creatinine Glucose POC Glucose 177 H 284 H Calcium Phosphorus Magnesium Alkaline Phosphatase Albumin Triglycerides Lipase Urine WBC (Auto) Urine Creatinine Urine Total Protein Crossmatch 02/16/20 02/16/20 02/16/20 05:24 05:29 05:29 WBC RBC 2.31 L Hgb 7.2 L Hct 20.2 L MCHC 36 H RDW 15.3 H Plt Count 115 L Seg Neuts % (Manual) Lymphocytes % (Manual) Seg Neutrophils # Man Lymphocytes # (Manual) Monocytes # (Manual) PT INR APTT Heparin Anti-Xa Level ABG pH ABG pO2 ABG HCO3 ABG O2 Saturation ABG Base Excess ABG Hemoglobin Oxyhemoglobin Sodium 135 L Potassium 3.0 L D Chloride 90.7 L Carbon Dioxide BUN 64 H Creatinine 4.7 H Glucose 491 H POC Glucose 282 H Calcium 7.2 L Phosphorus Magnesium Alkaline Phosphatase Albumin Triglycerides Lipase Urine WBC (Auto) Urine Creatinine Urine Total Protein Crossmatch 02/16/20 02/16/20 02/16/20 05:29 08:39 12:27 WBC RBC Hgb Hct MCHC RDW Plt Count Seg Neuts % (Manual) Lymphocytes % (Manual) Seg Neutrophils # Man Lymphocytes # (Manual) Monocytes # (Manual) PT INR APTT Heparin Anti-Xa Level ABG pH ABG pO2 ABG HCO3 ABG O2 Saturation ABG Base Excess ABG Hemoglobin Oxyhemoglobin Sodium Potassium Chloride Carbon Dioxide BUN Creatinine Glucose POC Glucose 314 H Calcium Phosphorus Magnesium Alkaline Phosphatase Albumin Triglycerides 716 H Lipase Urine WBC (Auto) Urine Creatinine Urine Total Protein Crossmatch See Detail 02/16/20 02/17/20 02/17/20 19:04 00:02 03:45 WBC RBC Hgb Hct MCHC RDW Plt Count Seg Neuts % (Manual) Lymphocytes % (Manual) Seg Neutrophils # Man Lymphocytes # (Manual) Monocytes # (Manual) PT INR APTT Heparin Anti-Xa Level ABG pH ABG pO2 ABG HCO3 ABG O2 Saturation ABG Base Excess ABG Hemoglobin Oxyhemoglobin Sodium Potassium Chloride Carbon Dioxide 21 L BUN 63 H Creatinine 5.2 H Glucose 134 H POC Glucose 203 H 202 H Calcium 7.6 L Phosphorus Magnesium Alkaline Phosphatase Albumin Triglycerides Lipase Urine WBC (Auto) Urine Creatinine Urine Total Protein Crossmatch 02/17/20 02/17/20 02/17/20 03:45 03:45 04:06 WBC RBC Hgb 9.9 L Hct 30.1 L D MCHC RDW Plt Count Seg Neuts % (Manual) Lymphocytes % (Manual) Seg Neutrophils # Man Lymphocytes # (Manual) Monocytes # (Manual) PT INR APTT Heparin Anti-Xa Level ABG pH 7.288 L ABG pO2 ABG HCO3 ABG O2 Saturation ABG Base Excess -4.9 L ABG Hemoglobin 9.7 L Oxyhemoglobin 94.0 L Sodium Potassium Chloride Carbon Dioxide BUN Creatinine Glucose POC Glucose Calcium Phosphorus Magnesium Alkaline Phosphatase Albumin Triglycerides 238 H Lipase Urine WBC (Auto) Urine Creatinine Urine Total Protein Crossmatch 02/17/20 02/17/20 02/17/20 05:21 12:08 18:07 WBC RBC Hgb Hct MCHC RDW Plt Count Seg Neuts % (Manual) Lymphocytes % (Manual) Seg Neutrophils # Man Lymphocytes # (Manual) Monocytes # (Manual) PT INR APTT Heparin Anti-Xa Level ABG pH ABG pO2 ABG HCO3 ABG O2 Saturation ABG Base Excess ABG Hemoglobin Oxyhemoglobin Sodium Potassium Chloride Carbon Dioxide BUN Creatinine Glucose POC Glucose 132 H 141 H 189 H Calcium Phosphorus Magnesium Alkaline Phosphatase Albumin Triglycerides Lipase Urine WBC (Auto) Urine Creatinine Urine Total Protein Crossmatch 02/17/20 02/17/20 02/18/20 19:54 23:13 03:41 WBC RBC Hgb Hct MCHC RDW Plt Count Seg Neuts % (Manual) Lymphocytes % (Manual) Seg Neutrophils # Man Lymphocytes # (Manual) Monocytes # (Manual) PT INR APTT Heparin Anti-Xa Level < 0.10 L ABG pH 7.281 L ABG pO2 74.5 L ABG HCO3 16.2 L ABG O2 Saturation 94.3 L ABG Base Excess -9.7 L ABG Hemoglobin 9.8 L Oxyhemoglobin 92.1 L Sodium Potassium Chloride Carbon Dioxide BUN Creatinine Glucose POC Glucose 167 H Calcium Phosphorus Magnesium Alkaline Phosphatase Albumin Triglycerides Lipase Urine WBC (Auto) Urine Creatinine Urine Total Protein Crossmatch 02/18/20 02/18/20 02/18/20 04:37 05:44 09:00 WBC RBC Hgb Hct MCHC RDW Plt Count Seg Neuts % (Manual) Lymphocytes % (Manual) Seg Neutrophils # Man Lymphocytes # (Manual) Monocytes # (Manual) PT INR APTT Heparin Anti-Xa Level ABG pH ABG pO2 ABG HCO3 ABG O2 Saturation ABG Base Excess ABG Hemoglobin Oxyhemoglobin Sodium Potassium Chloride Carbon Dioxide 15 L BUN 65 H Creatinine 5.1 H Glucose 117 H POC Glucose 112 H Calcium 7.7 L Phosphorus 6.40 H Magnesium 1.30 L Alkaline Phosphatase Albumin Triglycerides Lipase Urine WBC (Auto) Urine Creatinine Urine Total Protein Crossmatch 02/18/20 02/18/20 02/18/20 09:00 12:41 17:58 WBC 14.9 H RBC 2.99 L Hgb 8.8 L Hct 27.1 L MCHC RDW 15.8 H Plt Count 131 L Seg Neuts % (Manual) Lymphocytes % (Manual) Seg Neutrophils # Man Lymphocytes # (Manual) Monocytes # (Manual) PT INR APTT Heparin Anti-Xa Level ABG pH ABG pO2 ABG HCO3 ABG O2 Saturation ABG Base Excess ABG Hemoglobin Oxyhemoglobin Sodium Potassium Chloride Carbon Dioxide BUN Creatinine Glucose POC Glucose 140 H 141 H Calcium Phosphorus Magnesium Alkaline Phosphatase Albumin Triglycerides Lipase Urine WBC (Auto) Urine Creatinine Urine Total Protein Crossmatch 02/18/20 02/19/20 02/19/20 23:06 03:50 04:30 WBC RBC Hgb Hct MCHC RDW Plt Count Seg Neuts % (Manual) Lymphocytes % (Manual) Seg Neutrophils # Man Lymphocytes # (Manual) Monocytes # (Manual) PT INR APTT Heparin Anti-Xa Level ABG pH 7.243 L ABG pO2 75.3 L ABG HCO3 11.8 L ABG O2 Saturation 94.0 L ABG Base Excess -14.1 L ABG Hemoglobin 9.6 L Oxyhemoglobin 91.8 L Sodium 136 L Potassium Chloride Carbon Dioxide 12 L BUN 76 H Creatinine 5.2 H Glucose 228 H POC Glucose 212 H Calcium Phosphorus Magnesium Alkaline Phosphatase Albumin Triglycerides Lipase Urine WBC (Auto) Urine Creatinine Urine Total Protein Crossmatch 02/19/20 02/19/20 02/19/20 04:30 04:30 06:19 WBC 19.8 H RBC 3.19 L Hgb 9.1 L Hct 28.9 L MCHC RDW 15.5 H Plt Count Seg Neuts % (Manual) 86.0 H Lymphocytes % (Manual) 5.0 L Seg Neutrophils # Man 17.0 H Lymphocytes # (Manual) 1.0 L Monocytes # (Manual) 1.4 H PT INR APTT Heparin Anti-Xa Level ABG pH ABG pO2 ABG HCO3 ABG O2 Saturation ABG Base Excess ABG Hemoglobin Oxyhemoglobin Sodium Potassium Chloride Carbon Dioxide BUN Creatinine Glucose POC Glucose 253 H Calcium Phosphorus 8.00 H D Magnesium Alkaline Phosphatase Albumin Triglycerides Lipase Urine WBC (Auto) Urine Creatinine Urine Total Protein Crossmatch 02/19/20 02/19/20 02/19/20 11:37 14:00 14:00 WBC RBC Hgb Hct MCHC RDW Plt Count Seg Neuts % (Manual) Lymphocytes % (Manual) Seg Neutrophils # Man Lymphocytes # (Manual) Monocytes # (Manual) PT INR APTT Heparin Anti-Xa Level ABG pH ABG pO2 ABG HCO3 ABG O2 Saturation ABG Base Excess ABG Hemoglobin Oxyhemoglobin Sodium 132 L Potassium Chloride 95.4 L Carbon Dioxide 15 L BUN 75 H Creatinine 5.2 H Glucose 526 H* POC Glucose 288 H Calcium 7.6 L Phosphorus Magnesium Alkaline Phosphatase Albumin Triglycerides Lipase Urine WBC (Auto) 166.0 H Urine Creatinine Urine Total Protein Crossmatch 02/19/20 02/19/20 02/19/20 15:07 17:40 23:40 WBC RBC Hgb Hct MCHC RDW Plt Count Seg Neuts % (Manual) Lymphocytes % (Manual) Seg Neutrophils # Man Lymphocytes # (Manual) Monocytes # (Manual) PT INR APTT Heparin Anti-Xa Level ABG pH ABG pO2 ABG HCO3 ABG O2 Saturation ABG Base Excess ABG Hemoglobin Oxyhemoglobin Sodium Potassium Chloride Carbon Dioxide BUN Creatinine Glucose POC Glucose 324 H 328 H 390 H Calcium Phosphorus Magnesium Alkaline Phosphatase Albumin Triglycerides Lipase Urine WBC (Auto) Urine Creatinine Urine Total Protein Crossmatch 02/20/20 02/20/20 02/20/20 03:15 03:15 03:15 WBC 13.6 H RBC 2.43 L Hgb 7.1 L Hct 21.3 L D MCHC RDW Plt Count 136 L Seg Neuts % (Manual) 81.0 H Lymphocytes % (Manual) 5.0 L Seg Neutrophils # Man 11.0 H Lymphocytes # (Manual) 0.7 L Monocytes # (Manual) PT INR APTT Heparin Anti-Xa Level 0.19 L ABG pH ABG pO2 ABG HCO3 ABG O2 Saturation ABG Base Excess ABG Hemoglobin Oxyhemoglobin Sodium Potassium 3.5 L D Chloride Carbon Dioxide 19 L BUN 85 H Creatinine 5.4 H Glucose 353 H POC Glucose Calcium 8.3 L Phosphorus 6.50 H Magnesium Alkaline Phosphatase Albumin Triglycerides Lipase Urine WBC (Auto) Urine Creatinine Urine Total Protein Crossmatch 02/20/20 02/20/20 02/20/20 04:29 05:21 11:52 WBC RBC Hgb Hct MCHC RDW Plt Count Seg Neuts % (Manual) Lymphocytes % (Manual) Seg Neutrophils # Man Lymphocytes # (Manual) Monocytes # (Manual) PT INR APTT Heparin Anti-Xa Level ABG pH ABG pO2 ABG HCO3 ABG O2 Saturation ABG Base Excess -3.8 L ABG Hemoglobin 6.0 L Oxyhemoglobin 94.6 L Sodium Potassium Chloride Carbon Dioxide BUN Creatinine Glucose POC Glucose 400 H 348 H Calcium Phosphorus Magnesium Alkaline Phosphatase Albumin Triglycerides Lipase Urine WBC (Auto) Urine Creatinine Urine Total Protein Crossmatch 02/20/20 02/20/20 02/20/20 18:30 20:02 23:31 WBC RBC Hgb Hct MCHC RDW Plt Count Seg Neuts % (Manual) Lymphocytes % (Manual) Seg Neutrophils # Man Lymphocytes # (Manual) Monocytes # (Manual) PT INR APTT Heparin Anti-Xa Level ABG pH ABG pO2 ABG HCO3 ABG O2 Saturation ABG Base Excess ABG Hemoglobin Oxyhemoglobin Sodium Potassium Chloride Carbon Dioxide BUN Creatinine Glucose 584 H* POC Glucose 422 H 341 H Calcium Phosphorus Magnesium Alkaline Phosphatase Albumin Triglycerides Lipase Urine WBC (Auto) Urine Creatinine Urine Total Protein Crossmatch 02/21/20 02/21/20 02/21/20 03:53 03:53 03:53 WBC RBC Hgb 5.9 L* Hct 18.5 L* MCHC RDW Plt Count Seg Neuts % (Manual) Lymphocytes % (Manual) Seg Neutrophils # Man Lymphocytes # (Manual) Monocytes # (Manual) PT INR APTT Heparin Anti-Xa Level 1.13 H ABG pH ABG pO2 ABG HCO3 ABG O2 Saturation ABG Base Excess ABG Hemoglobin Oxyhemoglobin Sodium 136 L Potassium Chloride 97.5 L Carbon Dioxide 21 L BUN 97 H Creatinine 5.3 H Glucose 246 H POC Glucose Calcium 8.1 L Phosphorus Magnesium Alkaline Phosphatase Albumin Triglycerides Lipase Urine WBC (Auto) Urine Creatinine Urine Total Protein Crossmatch 02/21/20 02/21/20 04:16 06:32 WBC RBC Hgb Hct MCHC RDW Plt Count Seg Neuts % (Manual) Lymphocytes % (Manual) Seg Neutrophils # Man Lymphocytes # (Manual) Monocytes # (Manual) PT INR APTT Heparin Anti-Xa Level ABG pH 7.318 L ABG pO2 100.0 H ABG HCO3 ABG O2 Saturation ABG Base Excess -4.4 L ABG Hemoglobin 9.1 L Oxyhemoglobin Sodium Potassium Chloride Carbon Dioxide BUN Creatinine Glucose POC Glucose 317 H Calcium Phosphorus Magnesium Alkaline Phosphatase Albumin Triglycerides Lipase Urine WBC (Auto) Urine Creatinine Urine Total Protein Crossmatch
[2020-02-21] MEDS ORDERED: SODIUM CHLORIDE 0.9% 100 ML IV PRN (09:24)
--- NOTE | 2020-02-21 09:45 | Progress Note ---
Assessment and Plan Assessment and plan: Sepsis. Etiology due to ischemic bowel. Acute hypoxic resp failure. Pulm following. 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 Pt. is s/p Exploratory laparotomy, extensive small bowel resection, partial colon resection, placement of abthera vac on 02/13/2020. S/p exploratory laparotomy, enterocolonic anastamosis, closure of abdomen, application of wound vac on 02/15 Presumed infected renal cyst. ID following Diabetes Mellitus type 2. Tight glycemic control, accucheks and ssri Diarrhea- resolved prior to presentation, doubt C diff, likely from ischemic bowel. LITZY on CKD: Renally adjust antibiotics, worsening Right saphenous vein DVT. Anticoagulation C. difficile colitis. Recommend p.o. vancomycin 02/18/2020. Patient still with oral ETT on mechanical ventilation. Patient currently with PSVT trials, FiO2 30% pressure support 12 and PEEP 6. Continue to wean as tolerated. Consider extubation today. However, chest x-ray today reveals developing right pleural effusion. Continue wound care per wound team. Continue incisional wound VAC. Continue strict n.p.o. and NGT to low intermittent suction. Continue IV antibiotics per ID 02/19/2020. Patient currently with AC mode ventilation rate 16, tidal volume 450, FiO2 30%, PEEP 6. Continue to wean per protocol and pulmonary recommendations. Patient failed PSV secondary to tachypnea today. Continue wound care per wound team. Continue incisional wound VAC. Continue strict n.p.o. and NGT to low intermittent suction. Continue IV antibiotics per ID. Creatinine stable today at 5.1/5.2 and remains non-oliguric; no indication for renal replacement therapy emergently per nephrology. Nephrology to administer 100 mg of IV Lasix today to further promote diuresis and help with metabolic acidosis. Remains at high risk for needing renal replacement therapy 02/20/2020. Patient currently with AC mode ventilation rate 16, tidal volume 450, FiO2 30%, PEEP 6. Continue to wean per protocol and pulmonary recommendations. Patient failed PSV trials. Patient with right lower extremity DVT. Continue anticoagulation which patient is currently on. Patient also with C. difficile colitis/C. difficile positive. We will start p.o. vancomycin. Acute kidney injury on CKD continues to worsen. Therefore, patient will likely need hemodialysis. Defer to nephrology. 02/21/2020. Patient remains on mechanical ventilation AC mode, rate 16, tidal volume 450, FiO2 30%. Continue weaning per protocol. 2 units PRBCs ordered stat for severe anemia. Follow-up CBC posttransfusion. Patient currently on anticoagulation for right lower extremity DVT. Continue wound care. BG elevated in the 300s. We will start Lantus 10 units at bedtime. The high probability of a clinically significant, sudden or life threatening deterioration of the [respiratory] system(s) required my full and direct attention, intervention and personal management. The aggregate critical care time was [32] minutes. This time is in addition to time spent performing reported procedures but includes the following: [x] Data Review and interpretation [x] Patient assessment and monitoring of vital signs [x] Documentation [x] Medication orders and management History Interval history: No new issues Hospitalist Physical - Constitutional Vitals: Temp Pulse Resp BP Pulse Ox 97.6 F 78 13 133/56 99 02/21/20 07:10 02/21/20 08:30 02/21/20 08:30 02/21/20 08:30 02/21/20 08:30 General appearance: Present: other (Intubated) - EENT Eyes: Present: PERRL, EOM intact ENT: hearing intact, clear oral mucosa, dentition normal - Neck Neck: Present: supple, normal ROM - Respiratory Respiratory effort: normal Respiratory: bilateral: CTA - Cardiovascular Rhythm: regular Heart Sounds: Present: S1 & S2. Absent: gallop, rub - Extremities Extremities: no ischemia, No edema, Full ROM - Abdominal General gastrointestinal: soft, non-tender, non-distended, normal bowel sounds - Integumentary Integumentary: Present: clear, warm, dry - Neurologic Neurologic: CNII-XII intact, moves all extremities HEART Score - HEART Score Troponin: Troponin T < 0.010 ng/mL (0.00-0.029) 02/11/20 15:27 Results - Labs CBC & Chem 7: 02/21/20 03:53 02/21/20 03:53 Labs: Laboratory Last Values WBC 13.6 K/mm3 (4.5-11.0) H 02/20/20 03:15 RBC 2.43 M/mm3 (3.65-5.03) L 02/20/20 03:15 Hgb 5.9 gm/dl (10.1-14.3) L* 06/27/20 03:53 Hct 18.5 % (30.3-42.9) L* 02/21/20 03:53 MCV 88 fl (79-97) 02/20/20 03:15 MCH 29 pg (28-32) 02/20/20 03:15 MCHC 33 % (30-34) 02/20/20 03:15 RDW 14.9 % (13.2-15.2) 02/20/20 03:15 Plt Count 182 K/mm3 (140-440) 02/21/20 03:53 Add Manual Diff Complete 02/20/20 03:15 Total Counted 100 02/20/20 03:15 Seg Neutrophils % Ore Charger 02/14/20 04:29 Seg Neuts % (Manual) 81.0 % (40.0-70.0) H 02/20/20 03:15 Band Neutrophils % 6.0 % 02/20/20 03:15 Lymphocytes % (Manual) 5.0 % (13.4-35.0) L 02/20/20 03:15 Reactive Lymphs % (Man) 0 % 02/20/20 03:15 Monocytes % (Manual) 6.0 % (0.0-7.3) 02/20/20 03:15 Eosinophils % (Manual) 2.0 % (0.0-4.3) 02/20/20 03:15 Basophils % (Manual) 0 % (0.0-1.8) 02/20/20 03:15 Metamyelocytes % 0 % 02/20/20 03:15 Myelocytes % 0 % 02/20/20 03:15 Promyelocytes % 0 % 02/20/20 03:15 Blast Cells % 0 % 02/20/20 03:15 Nucleated RBC % Not Reportable 02/20/20 03:15 Seg Neutrophils # Man 11.0 K/mm3 (1.8-7.7) H 02/20/20 03:15 Band Neutrophils # 0.8 K/mm3 02/20/20 03:15 Lymphocytes # (Manual) 0.7 K/mm3 (1.2-5.4) L 02/20/20 03:15 Abs React Lymphs (Man) 0.0 K/mm3 02/20/20 03:15 Monocytes # (Manual) 0.8 K/mm3 (0.0-0.8) 02/20/20 03:15 Eosinophils # (Manual) 0.3 K/mm3 (0.0-0.4) 02/20/20 03:15 Basophils # (Manual) 0.0 K/mm3 (0.0-0.1) 02/20/20 03:15 Metamyelocytes # 0.0 K/mm3 02/20/20 03:15 Myelocytes # 0.0 K/mm3 02/20/20 03:15 Promyelocytes # 0.0 K/mm3 02/20/20 03:15 Blast Cells # 0.0 K/mm3 02/20/20 03:15 WBC Morphology Not Reportable 02/20/20 03:15 Hypersegmented Neuts Rare 02/20/20 03:15 Hyposegmented Neuts Not Reportable 02/20/20 03:15 Hypogranular Neuts Not Reportable 02/20/20 03:15 Smudge Cells Not Reportable 02/20/20 03:15 Toxic Granulation Not Reportable 02/20/20 03:15 Toxic Vacuolation Not Reportable 02/20/20 03:15 Dohle Bodies Not Reportable 02/20/20 03:15 Pelger-Huet Anomaly Not Reportable 02/20/20 03:15 Jyoti Rods Not Reportable 02/20/20 03:15 Platelet Estimate Consistent w auto 02/20/20 03:15 Clumped Platelets Not Reportable 02/20/20 03:15 Plt Clumps, EDTA Not Reportable 02/20/20 03:15 Large Platelets Rare 02/20/20 03:15 Giant Platelets Not Reportable 02/20/20 03:15 Platelet Satelliting Not Reportable 02/20/20 03:15 Plt Morphology Comment Not Reportable 02/20/20 03:15 RBC Morphology Not Reportable 02/20/20 03:15 Dimorphic RBCs Not Reportable 02/20/20 03:15 Polychromasia Not Reportable 02/20/20 03:15 Hypochromasia Rare 02/20/20 03:15 Poikilocytosis Not Reportable 02/20/20 03:15 Anisocytosis Rare 02/20/20 03:15 Microcytosis Not Reportable 02/20/20 03:15 Macrocytosis Not Reportable 02/20/20 03:15 Spherocytes Not Reportable 02/20/20 03:15 Pappenheimer Bodies Not Reportable 02/20/20 03:15 Sickle Cells Not Reportable 02/20/20 03:15 Target Cells Not Reportable 02/20/20 03:15 Tear Drop Cells Not Reportable 02/20/20 03:15 Ovalocytes Rare 02/20/20 03:15 Helmet Cells Not Reportable 02/20/20 03:15 Garcia-Kotzebue Bodies Not Reportable 02/20/20 03:15 [place] Rings Not Reportable 02/20/20 03:15 Andrea Cells Not Reportable 02/20/20 03:15 Bite Cells Not Reportable 02/20/20 03:15 Crenated Cell Not Reportable 02/20/20 03:15 Elliptocytes Not Reportable 02/20/20 03:15 Acanthocytes (Spur) Not Reportable 02/20/20 03:15 Rouleaux Not Reportable 02/20/20 03:15 Hemoglobin C Crystals Not Reportable 02/20/20 03:15 Schistocytes Not Reportable 02/20/20 03:15 Malaria parasites Not Reportable 02/20/20 03:15 Babar Bodies Not Reportable 02/20/20 03:15 Hem Pathologist Commnt No 02/20/20 03:15 PT 16.9 Sec. (12.2-14.9) H 02/13/20 20:10 INR 1.41 (0.87-1.13) H 02/13/20 20:10 APTT 35.3 Sec. (24.2-36.6) 02/13/20 20:10 Heparin Anti-Xa Level 1.13 U.I./ml (0.3-0.7) H 02/21/20 03:53 ABG pH 7.318 pH Units (7.350-7.450) L 02/21/20 04:16 ABG pCO2 42.7 mm Hg 02/21/20 04:16 ABG pO2 100.0 mm Hg (80.0-90.0) H 02/21/20 04:16 ABG HCO3 21.4 mmol/L (20.0-26.0) 02/21/20 04:16 ABG O2 Saturation 97.2 % (95.0-99.0) 02/21/20 04:16 ABG O2 Content 12.3 (0.0-44) 02/21/20 04:16 ABG Base Excess -4.4 mmol/L (-2.0-3.0) L 02/21/20 04:16 ABG Hemoglobin 9.1 gm/dl (12.0-16.0) L 02/21/20 04:16 ABG Carboxyhemoglobin 1.5 % (0.0-5.0) 02/21/20 04:16 ABG Methemoglobin 0.7 % (0.0-1.5) 02/21/20 04:16 Oxyhemoglobin 95.2 % (95.0-99.0) 02/21/20 04:16 FiO2 30 % 02/21/20 04:16 Sodium 136 mmol/L (137-145) L 02/21/20 03:53 Potassium 3.8 mmol/L (3.6-5.0) 02/21/20 03:53 Chloride 97.5 mmol/L (98-107) L 02/21/20 03:53 Carbon Dioxide 21 mmol/L (22-30) L 02/21/20 03:53 Anion Gap 21 mmol/L 02/21/20 03:53 BUN 97 mg/dL (7-17) H 02/21/20 03:53 Creatinine 5.3 mg/dL (0.7-1.2) H 02/21/20 03:53 Estimated GFR 8 ml/min 02/21/20 03:53 BUN/Creatinine Ratio 18 % 02/21/20 03:53 Glucose 246 mg/dL (65-100) H 02/21/20 03:53 POC Glucose 317 (70-105) H 02/21/20 06:32 Ketones Quantitative Negative (Negative) 02/13/20 14:51 Lactic Acid 0.70 mmol/L (0.7-2.0) 02/14/20 Unknown Calcium 8.1 mg/dL (8.4-10.2) L 02/21/20 03:53 Phosphorus 6.50 mg/dL (2.5-4.5) H 02/20/20 03:15 Magnesium 2.20 mg/dL (1.7-2.3) 02/21/20 03:53 Total Bilirubin 0.20 mg/dL (0.1-1.2) 02/12/20 04:58 Direct Bilirubin < 0.2 mg/dL (0-0.2) 02/11/20 15:27 Indirect Bilirubin 0.2 mg/dL 02/11/20 15:27 AST 16 units/L (5-40) 02/12/20 04:58 ALT 24 units/L (7-56) 02/12/20 04:58 Alkaline Phosphatase 127 units/L (35-129) 02/12/20 04:58 Troponin T < 0.010 ng/mL (0.00-0.029) 02/11/20 15:27 Total Protein 7.0 g/dL (6.3-8.2) 02/12/20 04:58 Albumin 3.5 g/dL (3.9-5) L 02/12/20 04:58 Albumin/Globulin Ratio 1.0 % 02/12/20 04:58 Triglycerides 238 mg/dL (2-149) H 02/17/20 03:45 Lipase 60 units/L (13-60) 02/13/20 14:51 Urine Color Yellow (Yellow) 02/19/20 14:00 Urine Turbidity Cloudy (Clear) 02/19/20 14:00 Urine pH 5.0 (5.0-7.0) 02/19/20 14:00 Ur Specific [place] 1.007 (1.003-1.030) 02/19/20 14:00 Urine Protein 100 mg/dl mg/dL (Negative) 02/19/20 14:00 Urine Glucose (UA) >=500 mg/dL (Negative) 02/19/20 14:00 Urine Ketones Tr mg/dL (Negative) 02/19/20 14:00 Urine Blood Lg (Negative) 02/19/20 14:00 Urine Nitrite Neg (Negative) 02/19/20 14:00 Urine Bilirubin Neg (Negative) 02/19/20 14:00 Urine Urobilinogen < 2.0 mg/dL (<2.0) 02/19/20 14:00 Ur Leukocyte Esterase Lg (Negative) 02/19/20 14:00 Urine WBC (Auto) 166.0 /HPF (0.0-6.0) H 02/19/20 14:00 Urine RBC (Auto) 20.0 /HPF (0.0-6.0) 02/19/20 14:00 U Epithel Cells (Auto) 2.0 /HPF (0-13.0) 02/19/20 14:00 Urine Bacteria (Auto) 1+ /HPF (Negative) 02/19/20 14:00 Urine WBC Clumps 3+ /HPF 02/19/20 14:00 Urine Mucus Few /HPF 02/19/20 14:00 Urine Yeast (Budding) 3+ /HPF 02/19/20 14:00 Urine Eosinophils None seen (None Seen) 02/12/20 Unknown Urine Creatinine 35.3 mg/dL (0.1-20.0) H 02/12/20 Unknown Protein/Creatinin Ratio 22.55 02/12/20 Unknown Urine Total Protein 796 mg/dL (5-11.8) H 02/12/20 Unknown C. difficile Tox (PCR) Positive (Negative) 02/19/20 12:46 Blood Type O NEGATIVE 02/21/20 06:00 Antibody Screen Negative 02/21/20 06:00 Crossmatch See Detail 02/21/20 06:00 Microbiology: Microbiology 02/19/20 15:30 Peripheral/Venous Blood Culture - Preliminary NO GROWTH AFTER 24 HOURS 02/19/20 15:00 Peripheral/Venous Blood Culture - Preliminary NO GROWTH AFTER 24 HOURS 02/19/20 14:00 Urine,Catheterized - Indwelling Catheter Urine Culture - Preliminary - Diagnostic Impressions Diagnostic Impressions: Echocardiogram 02/13/20 18:02 Transthoracic Echocardiogram Indication: Afib BP: 101/70 HR: 128 Findings Left Ventricle: The left ventricular chamber size is normal. Mild to moderate concentric left ventricular hypertrophy is observed. Global left ventricular wall motion and contractility are within normal limits. Global left ventricular systolic function is normal. The estimated ejection fraction is 60-65%. Left Atrium: The left atrium is mild to moderately dilated. Right Ventricle: The right ventricular cavity size is normal. The right ventricular global systolic function is normal. Right Atrium: The right atrium appears normal. The interatrial septum appears normal. Aortic Valve: The aortic valve structure is normal. The aortic valve leaflets are mildly thickened. There is no evidence of aortic regurgitation. There is no evidence of aortic stenosis. Mitral Valve: The mitral valve leaflets appear normal. There is no evidence of mitral regurgitation. There is no evidence of mitral stenosis. Tricuspid Valve: The tricuspid valve leaflets are normal. There is mild to moderate tricuspid regurgitation. The right ventricular systolic pressure is calculated at 39 mmHg. There is evidence of pulmonary hypertension. There is no tricuspid stenosis. Pulmonic Valve: The pulmonic valve appears normal. There is no evidence of pulmonic regurgitation. There is no pulmonic stenosis. Pericardium: A pericardial effusion is visualized. There is a minimial pericardial effusion. A left pleural effusion is present. There is a moderate pleural effusion. Aorta: There is no dilatation of the ascending aorta. There is no dilatation of the aortic arch. There is no dilatation of the descending thoracic aorta. There is no dilatation of the aortic root. Venous: The inferior vena cava appears normal in size. Measurements Chambers 2D Name Value Normal Range IVSd (2D) 1.34 cm (0.6 - 1.1) LVPWd (2D) 1.35 cm (0.6 - 1.1) LVIDd (2D) 4.72 cm (3.7 - 5.6) LVIDs (2D) 3.28 cm (2 - 3.8) LV FS (2D) 30.38 % - EF Teichholz (2D) 57.75 % - Ao root diameter (2D) 3.02 cm (2 - 3.7) Volumes/Mass Name Value Normal Range LA ESV SP 4CH (A/L) 55.87 ml - LA ESV SP 2CH (A/L) 67.65 ml - LA ESV BP (A/L) 63.67 ml - LA ESV SP 4CH (MOD) 54.25 ml - LA ESV SP 2CH (MOD) 63.2 ml - LA ESV BP (MOD) 60.49 ml - LA ESV BP (MOD) index 34.18 ml/m2 - LV EDV SP 4CH (MOD) 70.96 ml - LV ESV SP 4CH (MOD) 23.49 ml - EF SP 4CH (MOD) 66.89 % - LV EDV SP 2CH (MOD) 61.41 ml - LV ESV SP 2CH (MOD) 27.43 ml - EF SP 2CH (MOD) 55.33 % - LV EDV BP 69.85 ml - LV ESV BP 26.44 ml - BP EF (MOD) 62.14 % - Aortic Valve Name Value Normal Range AV Vmax 1.29 m/sec - AV VTI 18.56 cm - AV peak gradient 6.69 mmHg - AV mean gradient 3.39 mmHg - LVOT diameter 1.95 cm - LVOT Vmax 1.14 m/sec - LVOT VTI 16.24 cm - LVOT peak gradient 5.21 mmHg - LVOT mean gradient 2.04 mmHg - SV LVOT 48.71 ml - TABATHA (continuity Vmax) 2.65 cm2 - TABATHA (continuity VTI) 2.62 cm2 - Ascending Ao 2.96 cm - Tricuspid Valve Name Value Normal Range TR Vmax 2.47 m/sec - TR peak gradient 24 mmHg - RAP 15 mmHg - RVSP 39 mmHg - Pulmonic Valve/Qp:Qs Name Value Normal Range PV Vmax 1.15 m/sec - PV peak gradient 5.33 mmHg - PV acceleration time 68.51 msec - Acevedo/IV: Voiding Method Indwelling Catheter IV Catheter Type [Right VAS Cath Internal Jugular] IV Catheter Type [Left Upper PICC Line arm] IV Catheter Type [Right INT / Saline Lock Antecubital] IV Catheter Type [Right Peripheral IV Forearm] IV Catheter Type [Left Forearm INT / Saline Lock ] IV Catheter Type [Right Hand] Peripheral IV Active Medications - Current Medications Current Medications: Generic Name Dose Route Start Last Admin Trade Name Freq PRN Reason Stop Dose Admin Acetaminophen 650 mg 02/11/20 19:01 02/12/20 17:00 Tylenol PO 650 mg Q4H PRN Administration Pain MILD(1-3)/Fever >100.5/ADAMS Lipase/Protease/Amylase 1 each 02/20/20 10:28 Pancregildardo Daugherty 10,500 Unit FEEDTUBE PRN PRN For Clogged Feeding Tube Dextrose 50 ml 02/19/20 14:58 D50w (25gm) Syringe IV Q30MIN PRN Hypoglycemia Protocol Famotidine 20 mg 02/17/20 10:00 02/20/20 09:47 Pepcid IV 20 mg DAILY NADER Administration Fentanyl 50 mcg 02/19/20 15:30 02/19/20 15:29 Sublimaze IV 50 mcg Q10MIN PRN Administration ANALGESIA Hydromorphone HCl 1 mg 02/14/20 13:00 02/19/20 12:10 Dilaudid IV 1 mg Q3H PRN Administration Pain , Severe (7-10) Hydrophilic Ointment 1 applic 02/13/20 19:41 Vaseline Lip Therapy TP Q2HR PRN Dry Lips Metronidazole 500 mg in 100 mls @ 100 mls/hr 02/12/20 15:40 02/21/20 06:23 Flagyl 500 Mg/100 Ml IV 02/22/20 15:39 100 mls/hr Q8HR NADER Administration Heparin Sodium/Sodium Chloride 25,000 unit in 500 mls @ 20 mls/hr 02/13/20 20:00 02/21/20 04:23 Heparin/ 0.45% Nacl-25,000 Unit/500 Ml IV 1,150 units/hr TITR NADER 23 mls/hr Titration Protocol 1,000 UNITS/HR Cefepime HCl 1 gm in 100 mls @ 200 mls/hr 02/16/20 10:00 02/20/20 10:20 Cefepime/Ns 1 Gm/100 Ml IV 02/22/20 10:29 Infused Q24HR NADER Infusion Protocol Diltiazem HCl 100 mg in 100 mls @ 2.5 mls/hr 02/16/20 12:19 02/21/20 06:44 Cardizem/D5w 100mg/100ml IV 2.5 mg/hr TITR NADER 2.5 mls/hr Administration 2.5 MG/HR Amiodarone HCl 900 mg/ 500 mls @ 33.333 mls/hr 02/19/20 11:00 02/21/20 08:27 Dextrose IV 0.5 mg/min DIRECT NADER 16.667 mls/hr Administration Protocol 1 MG/MIN Fluconazole 100 mg in 50 mls @ 50 mls/hr 02/19/20 13:00 02/20/20 10:50 Diflucan/Ns 100 Mg/50 Ml IV 02/21/20 10:59 Infused Q24HR NADER Infusion Protocol Fentanyl Citrate 2,000 mcg in 100 mls @ 4.05 mls/hr 02/19/20 16:00 02/21/20 08:26 Fentanyl Drip Premix IV 1 mcg/kg/hr TITR NADER 4.05 mls/hr Titration Protocol 1 MCG/KG/HR Amino Acids/Electrolytes/Dextrose 1,800 mls @ 75 mls/hr 02/20/20 20:00 02/20/20 20:45 Tpn Adult IV 02/21/20 19:59 75 mls/hr DAILY@2000 NADER Administration Protocol Furosemide 100 mg/ Sodium 60 mls @ 240 mls/hr 02/20/20 15:00 02/20/20 17:28 Chloride IV Infused ONCE NADER Infusion Sodium Chloride 100 mls @ 999 mls/hr 02/21/20 09:24 Nacl 0.9% IV FABIOLA PRN Hypotension Insulin Glargine 15 units 02/20/20 14:00 02/20/20 22:46 Lantus SUB-Q 15 units BID NADER Administration Insulin Human Lispro 0 unit 02/19/20 18:00 02/21/20 06:22 Humalog SUB-Q 8 unit Q6HR [facility] Administration Protocol Labetalol HCl 20 mg 02/13/20 18:00 02/20/20 12:29 Labetalol IV 20 mg Q4H PRN Administration SBP >150 Metoprolol Tartrate 2.5 mg 02/13/20 18:00 02/18/20 04:41 Metoprolol IV 2.5 mg Q6HR PRN Administration HR >130 Multi-Ingred Cream/Lotion/Oil/Oint 1 applic 02/13/20 19:41 Artificial Tears Ophth Oint OU Q4HR PRN Dry Eye(s) Simple Syrup 15 ml 02/20/20 10:28 Simple Syrup FEEDTUBE PRN PRN Hypoglycemia Simple Syrup 30 ml 02/20/20 10:28 Simple Syrup FEEDTUBE PRN PRN Hypoglycemia Sodium Bicarbonate 325 mg 02/20/20 10:28 Sodium Bicarbonate FEEDTUBE PRN PRN For Clogged Feeding Tube Sodium Chloride 10 ml 02/11/20 22:00 02/20/20 21:26 Sodium Chloride Flush Syringe 10 Ml IV 10 ml BID NADER Administration Sodium Chloride 10 ml 02/11/20 19:01 02/15/20 22:43 Sodium Chloride Flush Syringe 10 Ml IV 10 ml PRN PRN Administration LINE FLUSH Vancomycin HCl 125 mg 02/20/20 15:00 02/21/20 06:24 Vancomycin Po PO 02/27/20 06:01 125 mg Q6HR NADER Administration Nutrition/Malnutrition Assess - Dietary Evaluation Nutrition/Malnutrition Findings: Nutrition Notes Start: 02/14/20 09:49 Freq: Status: Active Protocol: Document 02/20/20 07:40 LP (Rec: 02/20/20 07:54 LP [id number]) Nutrition Notes Initial or Follow up Reassessment Current Diagnosis Acute Kidney Injury,Decubitus( Pressure Ulcer),Diabetes, Hypertension,Hyperlipidemia Other Pertinent Diagnosis ischemic bowel with gangrene s /p exp lap, Current Diet PPN at 84ml/hr Labs/Tests K 3.5 Phos 6.5 BG 353 Pertinent Medications Reviewed Height 5 ft 5 in Weight 86 kg [place] Body Weight (kg) 56.81 BMI 31.5 Weight change and time frame Wt change due to fluid Weight Status Obese Subjective/Other Information CPN day 3. Pt continues with NGT to LIS. Addendem: MD started on TF Vital 1.2 at 10ml/hr and not advancing. Percent of energy/protein needs met: 50%/89% Burn Absent Trauma Absent Current % PO Negligible Minimum of two criteria No #2 Nutrition Diagnosis Inadequate oral intake Etiology Altered GI function As Evidenced by Signs and Symptoms Pt unable to consume PO due to ischemic bowel and vent #1 Nutrition Diagnosis Altered GI function Diagnosis Progress(for reassessment Continues documentation) Is patient on ventilator? Yes Is Patient Ambulatory and/or Out of Bed No REE-([facility]-confined to bed) 0256.014 Calculation Used for Recommendations [facility] Additional Notes Pro needs 1.2-2g/k-140g/ day Fluid needs 1ml/kcal Nutrition Intervention Change Diet Order: TPN and TF Nutrition Support: Change to CPN at 75ml/hr: 6.9% dextrose, 4.2% amino acid , 67mEq Na,, 45 mEq K, 14mEq Mg, 4mEq Ca, 0mmol phos, Chloride:Acetate 0:100, MVI, Thiamine Vital 1.2 at 10ml/hr per MD Kcal 725 Protein (gm) 75 Carbohydrates (gm) 125 Fat (gm) 0 Fluid (mL) 1,800 Fiber (gm) 0 Goal #1 Meet at least 75% of energy and protein needs Anticipated Discharge Needs: Unable to identify at this time Follow-Up By: 02/21/20 Additional Comments Labs in AM: BMP, Mg TF tolerance
[2020-02-21] MEDS: CEFEPIME/NS 1 GM/100 ML 1 GM/100 ML BAG IV SCH (10:08)
[2020-02-21] MEDS: FLUCONAZOLE/NS 100 MG/50 ML 100 MG/50 ML BAG IV SCH (10:09)
[2020-02-21] MEDS: FAMOTIDINE 20 MG/2 ML INJ IV SCH (10:09)
[2020-02-21] MEDS: INSULIN GLARGINE 100 UNITS/ML SUB-Q SCH ×2 (10:46→21:01)
[2020-02-21] MEDS ORDERED: SODIUM CHLORIDE 0.9% 500 ML 500 ML IV SCH (11:30)
--- NOTE | 2020-02-21 11:39 | Progress Note ---
Assessment and Plan - Patient Problems (1) Atrial fibrillation Current Visit: Yes Status: Acute Subjective Date of service: 02/21/20 Principal diagnosis: Ischemic Bowel Interval history: VENT Objective Vital Signs Temp Pulse Pulse Resp BP Pulse Ox 02/21/20 11:32 103 H 10 L 137/80 100 02/21/20 10:45 93 H 11 L 150/65 100 02/21/20 10:30 94 H 11 L 149/74 99 02/21/20 10:16 107 H 12 133/81 100 02/21/20 10:00 104 H 13 127/87 99 02/21/20 09:46 92 H 13 137/77 99 02/21/20 09:30 84 12 118/68 99 02/21/20 09:15 90 15 131/68 99 02/21/20 09:00 81 15 119/68 99 02/21/20 08:45 77 16 112/57 100 02/21/20 08:30 78 13 133/56 99 02/21/20 08:20 86 15 131/68 100 02/21/20 08:15 109 H 17 134/81 99 02/21/20 08:00 88 88 16 120/69 100 02/21/20 07:45 83 17 137/67 100 02/21/20 07:30 75 16 133/64 99 02/21/20 07:15 93 H 15 133/60 100 02/21/20 07:10 97.6 F 02/21/20 07:00 101 H 16 133/60 99 02/21/20 06:45 98 H 14 115/89 99 02/21/20 06:30 91 H 14 136/70 99 02/21/20 06:15 83 16 126/74 99 02/21/20 06:00 75 17 119/61 99 02/21/20 05:45 76 15 119/61 99 02/21/20 05:30 86 16 128/62 99 02/21/20 05:15 79 16 124/63 99 02/21/20 05:00 91 H 16 131/78 99 02/21/20 04:46 86 15 131/78 99 02/21/20 04:42 83 125/53 99 02/21/20 04:30 86 13 154/61 99 02/21/20 04:15 92 H 18 154/61 99 02/21/20 04:00 97.9 F 91 H 16 146/70 99 02/21/20 03:45 85 15 138/75 99 02/21/20 03:30 73 16 127/61 99 02/21/20 03:16 91 H 16 140/71 99 02/21/20 03:00 80 17 122/62 99 02/21/20 02:45 87 15 119/77 98 02/21/20 02:30 91 H 14 146/74 98 02/21/20 02:16 90 16 146/74 99 02/21/20 02:00 94 H 12 146/74 99 02/21/20 01:45 85 17 131/78 100 02/21/20 01:30 76 13 136/71 99 02/21/20 01:15 77 16 126/63 99 02/21/20 01:00 74 17 129/64 99 02/21/20 00:45 79 16 127/64 99 02/21/20 00:30 86 16 138/75 99 02/21/20 00:15 78 17 127/75 99 02/21/20 00:00 97.7 F 73 15 130/70 99 02/20/20 23:46 79 11 L 137/69 98 02/20/20 23:30 75 16 124/62 99 02/20/20 23:15 78 16 128/62 100 02/20/20 23:12 71 134/61 99 02/20/20 23:00 71 15 134/61 99 02/20/20 22:45 74 16 132/62 99 02/20/20 22:30 70 16 118/59 99 02/20/20 22:15 70 16 119/57 100 02/20/20 22:00 66 16 119/57 99 02/20/20 21:45 80 16 125/64 99 02/20/20 21:30 81 14 128/72 99 02/20/20 21:16 75 18 138/66 99 02/20/20 21:00 87 12 120/60 99 02/20/20 20:45 70 15 114/56 99 02/20/20 20:30 74 16 123/59 99 02/20/20 20:15 73 15 124/61 99 02/20/20 20:00 97.7 F 74 17 124/61 99 02/20/20 19:45 75 13 136/68 98 02/20/20 19:34 78 142/64 99 02/20/20 19:30 73 9 L 142/64 99 02/20/20 19:15 70 13 128/63 99 02/20/20 19:00 74 10 L 135/61 99 02/20/20 18:54 75 12 134/79 99 02/20/20 18:30 76 13 142/73 99 02/20/20 18:00 74 11 L 130/67 99 02/20/20 17:30 77 11 L 113/62 99 02/20/20 17:00 74 11 L 102/57 99 02/20/20 16:30 79 16 108/58 99 02/20/20 16:00 97.4 F L 87 69 11 L 131/85 98 02/20/20 15:58 110 H 16 150/88 99 02/20/20 15:30 82 11 L 136/68 86 02/20/20 15:00 73 16 123/66 100 02/20/20 14:30 76 14 123/68 100 02/20/20 14:00 69 13 114/52 100 02/20/20 13:30 64 16 114/54 100 02/20/20 13:02 105 H 15 150/88 100 02/20/20 13:00 69 17 119/58 100 02/20/20 12:30 105 H 15 150/88 100 02/20/20 12:29 99 H 166/80 02/20/20 12:09 113 H 152/83 99 02/20/20 12:00 97.4 F L 97 H 97 H 12 148/73 100 - Physical Examination General: Other (intubated) HEENT: Positive: PERRL Neck: Positive: neck supple, trachea midline. Negative: JVD/HJR Cardiac: Positive: Irregularly Regular Lungs: Positive: clear to auscultation Neuro: Positive: Weakness, Other (DOESN'T FOLLOW COMM.) Abdomen: Positive: Distended (POST OP) Skin: Positive: Clear Extremities: Absent: edema - Labs and Meds CBC 02/21/20 Range/Units 03:53 Hgb 5.9 L* (10.1-14.3) gm/dl Hct 18.5 L* (30.3-42.9) % Plt Count 182 (140-440) K/mm3 Comprehensive Metabolic Panel 02/20/20 02/21/20 Range/Units 18:30 03:53 Sodium 136 L (137-145) mmol/L Potassium 3.8 (3.6-5.0) mmol/L Chloride 97.5 L (98-107) mmol/L Carbon Dioxide 21 L (22-30) mmol/L BUN 97 H (7-17) mg/dL Creatinine 5.3 H (0.7-1.2) mg/dL Glucose 584 H* 246 H (65-100) mg/dL Calcium 8.1 L (8.4-10.2) mg/dL
[2020-02-21] MEDS: HEPARIN/ 0.45% NACL DRIP 25,000 UNIT/500 ML BAG IV SCH (12:07)
--- NOTE | 2020-02-21 12:08 | Progress Note ---
Assessment and Plan - Patient Problems (1) Ischemic necrosis of small bowel Current Visit: Yes Status: Acute Plan to address problem: Assessment and Plan 74-year-old female status post 1. Exploratory laparotomy, enterocolonic anastamosis, closure of abdomen, application of wound vac, POD 5 2. Exploratory laparotomy, extensive small bowel resection, partial colon resection, placement of abthera vac, placement of right radial arterial line, 02/13/20 1. bowel ischemia with gangrene 2. sepsis 3. LITZY 4. Afib with RVR 5. Tobacco dependence 6. Venous duplex - L superficial femoral vein nonocclusive thrombus 7. Cdiff + CXR 02/20/20 - no residual disease CT C/A/P 02/19/20 - post operative changes of right colon. Anastamosis is intact. Generalized edema of abdominal wall. Pt currently hemodynamically stable. Plan: 1. neuro - Continue as needed pain control. Pt still with AMS. 2. CV - cardiology on board for Afib. H/H 5.9 - transfuse prbc as needed. This is probably a reflection of generalized oozing from multiple sites as a result of the anticoagulation. Would consider holding the anticoagulation if the Hgb continues to drop repeatedly. 3. Resp - vent management per ICU team, extubate when criteria met. 4. GI - Cont TTF via NGT, do not advance today. Want to make sure that residuals are not remaining elevated. Pt continues to have bowel function - diarrhea expected, Continue incisional wound VAC - will monitor drainage. GI ppx - protonix IV 5. - continue corcoran catheter for strict I/Os. Nephrology on board. Monitor photo offset printer. Metabolic acidosis improved on todays ABG. 6. ID - continue abx per ID. leukocytosis improved. Source possibly UTI. Could also be clot related. UCx/BCx - neg. 7. Endo - strict glucose control 8. Musc - turning q2 as per protocol, skin breakdown precautions, SCDs 9. FEN - Cont TTF, Continue TPN until pt tolerating TF at goal, replace lytes as needed. [employer] notes reviewed and recs appreciated Thank you, please call with questions. Subjective Date of service: 02/21/20 Patient Reports: Positive: other (Hgb down this morning. Had oozing from multiple sites. Had high feeding tube residuals this AM. ) Objective Vital Signs - 12hr 02/21/20 02/21/20 02/21/20 00:00 00:15 00:30 Temperature 97.7 F Pulse Rate 73 78 86 Pulse Rate [ From Monitor] Respiratory 15 17 16 Rate Blood Pressure 130/70 127/75 138/75 O2 Sat by Pulse 99 99 99 Oximetry 02/21/20 02/21/20 02/21/20 00:45 01:00 01:15 Temperature Pulse Rate 79 74 77 Pulse Rate [ From Monitor] Respiratory 16 17 16 Rate Blood Pressure 127/64 129/64 126/63 O2 Sat by Pulse 99 99 99 Oximetry 02/21/20 02/21/20 02/21/20 01:30 01:45 02:00 Temperature Pulse Rate 76 85 94 H Pulse Rate [ From Monitor] Respiratory 13 17 12 Rate Blood Pressure 136/71 131/78 146/74 O2 Sat by Pulse 99 100 99 Oximetry 02/21/20 02/21/20 02/21/20 02:16 02:30 02:45 Temperature Pulse Rate 90 91 H 87 Pulse Rate [ From Monitor] Respiratory 16 14 15 Rate Blood Pressure 146/74 146/74 119/77 O2 Sat by Pulse 99 98 98 Oximetry 02/21/20 02/21/20 02/21/20 03:00 03:16 03:30 Temperature Pulse Rate 80 91 H 73 Pulse Rate [ From Monitor] Respiratory 17 16 16 Rate Blood Pressure 122/62 140/71 127/61 O2 Sat by Pulse 99 99 99 Oximetry 02/21/20 02/21/20 02/21/20 03:45 04:00 04:15 Temperature 97.9 F Pulse Rate 85 91 H 92 H Pulse Rate [ From Monitor] Respiratory 15 16 18 Rate Blood Pressure 138/75 146/70 154/61 O2 Sat by Pulse 99 99 99 Oximetry 02/21/20 02/21/20 02/21/20 04:30 04:42 04:46 Temperature Pulse Rate 86 83 86 Pulse Rate [ From Monitor] Respiratory 13 15 Rate Blood Pressure 154/61 125/53 131/78 O2 Sat by Pulse 99 99 99 Oximetry 02/21/20 02/21/20 02/21/20 05:00 05:15 05:30 Temperature Pulse Rate 91 H 79 86 Pulse Rate [ From Monitor] Respiratory 16 16 16 Rate Blood Pressure 131/78 124/63 128/62 O2 Sat by Pulse 99 99 99 Oximetry 02/21/20 02/21/20 02/21/20 05:45 06:00 06:15 Temperature Pulse Rate 76 75 83 Pulse Rate [ From Monitor] Respiratory 15 17 16 Rate Blood Pressure 119/61 119/61 126/74 O2 Sat by Pulse 99 99 99 Oximetry 02/21/20 02/21/20 02/21/20 06:30 06:45 07:00 Temperature Pulse Rate 91 H 98 H 101 H Pulse Rate [ From Monitor] Respiratory 14 14 16 Rate Blood Pressure 136/70 115/89 133/60 O2 Sat by Pulse 99 99 99 Oximetry 02/21/20 02/21/20 02/21/20 07:10 07:15 07:30 Temperature 97.6 F Pulse Rate 93 H 75 Pulse Rate [ From Monitor] Respiratory 15 16 Rate Blood Pressure 133/60 133/64 O2 Sat by Pulse 100 99 Oximetry 02/21/20 02/21/20 02/21/20 07:45 08:00 08:15 Temperature Pulse Rate 83 88 109 H Pulse Rate [ 88 From Monitor] Respiratory 17 16 17 Rate Blood Pressure 137/67 120/69 134/81 O2 Sat by Pulse 100 100 99 Oximetry 02/21/20 02/21/20 02/21/20 08:20 08:30 08:45 Temperature Pulse Rate 86 78 77 Pulse Rate [ From Monitor] Respiratory 15 13 16 Rate Blood Pressure 131/68 133/56 112/57 O2 Sat by Pulse 100 99 100 Oximetry 02/21/20 02/21/20 02/21/20 09:00 09:15 09:30 Temperature Pulse Rate 81 90 84 Pulse Rate [ From Monitor] Respiratory 15 15 12 Rate Blood Pressure 119/68 131/68 118/68 O2 Sat by Pulse 99 99 99 Oximetry 02/21/20 02/21/20 02/21/20 09:46 10:00 10:16 Temperature Pulse Rate 92 H 104 H 107 H Pulse Rate [ From Monitor] Respiratory 13 13 12 Rate Blood Pressure 137/77 127/87 133/81 O2 Sat by Pulse 99 99 100 Oximetry 02/21/20 02/21/20 02/21/20 10:30 10:45 11:32 Temperature Pulse Rate 94 H 93 H 103 H Pulse Rate [ From Monitor] Respiratory 11 L 11 L 10 L Rate Blood Pressure 149/74 150/65 137/80 O2 Sat by Pulse 99 100 100 Oximetry 02/21/20 02/21/20 11:41 11:56 Temperature 97.8 F 97.9 F Pulse Rate 103 H 99 H Pulse Rate [ From Monitor] Respiratory 14 15 Rate Blood Pressure 133/80 129/80 O2 Sat by Pulse 99 99 Oximetry - General physical appearance no distress, no pain - Respiratory normal expansion, normal respiratory effort - Abdomen soft, not tender, not distended, not guarding, not rigid, other (wound vac intact. Minimal amount of blood around sponge and in canister) - Labs 02/21/20 03:53 02/21/20 03:53 Diabetes panel 02/20/20 02/21/20 Range/Units 18:30 03:53 Sodium 136 L (137-145) mmol/L Potassium 3.8 (3.6-5.0) mmol/L Chloride 97.5 L (98-107) mmol/L Carbon Dioxide 21 L (22-30) mmol/L BUN 97 H (7-17) mg/dL Creatinine 5.3 H (0.7-1.2) mg/dL Glucose 584 H* 246 H (65-100) mg/dL Calcium 8.1 L (8.4-10.2) mg/dL Calcium panel 02/21/20 Range/Units 03:53 Calcium 8.1 L (8.4-10.2) mg/dL Pituitary panel 02/20/20 02/21/20 Range/Units 18:30 03:53 Sodium 136 L (137-145) mmol/L Potassium 3.8 (3.6-5.0) mmol/L Chloride 97.5 L (98-107) mmol/L Carbon Dioxide 21 L (22-30) mmol/L BUN 97 H (7-17) mg/dL Creatinine 5.3 H (0.7-1.2) mg/dL Glucose 584 H* 246 H (65-100) mg/dL Calcium 8.1 L (8.4-10.2) mg/dL Adrenal panel 02/20/20 02/21/20 Range/Units 18:30 03:53 Sodium 136 L (137-145) mmol/L Potassium 3.8 (3.6-5.0) mmol/L Chloride 97.5 L (98-107) mmol/L Carbon Dioxide 21 L (22-30) mmol/L BUN 97 H (7-17) mg/dL Creatinine 5.3 H (0.7-1.2) mg/dL Glucose 584 H* 246 H (65-100) mg/dL Calcium 8.1 L (8.4-10.2) mg/dL
--- NOTE | 2020-02-21 12:41 | Progress Note ---
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 She is currently nonoliguric. However remains on the ventilator and volume ov erloaded. Need to initiate dialysis . Shall initiate dialysis from today. Remove fluid as tolerated. * Patient is also anemic. She is receiving her first unit of packed RBC. Shall give the second unit with dialysis * Continue to wean patient off ventilator. * Patient had a total of 180 mg of Lasix yesterday. Approximately 1.5 L of urine output recorded * Acidosis seems to be better today. She had received intravenous sodium bicarbonate * Continue iv abx per ID recs * surgery note reviewed, s/p surgery, OR note reviewed, input appreciated * PRBC transfusion prn per primary * Daily lytes; strict i/os * Avoid nephrotoxins * CT noted, no stones or hydronephrosis * vasopressors prn Subjective Date of service: 02/21/20 Principal diagnosis: Ischemic Bowel Interval history: Patient remains on the ventilator. Currently on 30% FiO2. Sedated. She is currently on amiodarone, Cardizem as well as heparin drip. Right IJ Vas-Cath was placed last night. Objective - Vital Signs Vital signs: Vital Signs - 12hr 02/21/20 02/21/20 02/21/20 00:45 01:00 01:15 Temperature Pulse Rate 79 74 77 Pulse Rate [ From Monitor] Respiratory 16 17 16 Rate Blood Pressure 127/64 129/64 126/63 O2 Sat by Pulse 99 99 99 Oximetry 02/21/20 02/21/20 02/21/20 01:30 01:45 02:00 Temperature Pulse Rate 76 85 94 H Pulse Rate [ From Monitor] Respiratory 13 17 12 Rate Blood Pressure 136/71 131/78 146/74 O2 Sat by Pulse 99 100 99 Oximetry 02/21/20 02/21/20 02/21/20 02:16 02:30 02:45 Temperature Pulse Rate 90 91 H 87 Pulse Rate [ From Monitor] Respiratory 16 14 15 Rate Blood Pressure 146/74 146/74 119/77 O2 Sat by Pulse 99 98 98 Oximetry 02/21/20 02/21/20 02/21/20 03:00 03:16 03:30 Temperature Pulse Rate 80 91 H 73 Pulse Rate [ From Monitor] Respiratory 17 16 16 Rate Blood Pressure 122/62 140/71 127/61 O2 Sat by Pulse 99 99 99 Oximetry 02/21/20 02/21/20 02/21/20 03:45 04:00 04:15 Temperature 97.9 F Pulse Rate 85 91 H 92 H Pulse Rate [ From Monitor] Respiratory 15 16 18 Rate Blood Pressure 138/75 146/70 154/61 O2 Sat by Pulse 99 99 99 Oximetry 02/21/20 02/21/20 02/21/20 04:30 04:42 04:46 Temperature Pulse Rate 86 83 86 Pulse Rate [ From Monitor] Respiratory 13 15 Rate Blood Pressure 154/61 125/53 131/78 O2 Sat by Pulse 99 99 99 Oximetry 02/21/20 02/21/20 02/21/20 05:00 05:15 05:30 Temperature Pulse Rate 91 H 79 86 Pulse Rate [ From Monitor] Respiratory 16 16 16 Rate Blood Pressure 131/78 124/63 128/62 O2 Sat by Pulse 99 99 99 Oximetry 02/21/20 02/21/20 02/21/20 05:45 06:00 06:15 Temperature Pulse Rate 76 75 83 Pulse Rate [ From Monitor] Respiratory 15 17 16 Rate Blood Pressure 119/61 119/61 126/74 O2 Sat by Pulse 99 99 99 Oximetry 02/21/20 02/21/20 02/21/20 06:30 06:45 07:00 Temperature Pulse Rate 91 H 98 H 101 H Pulse Rate [ From Monitor] Respiratory 14 14 16 Rate Blood Pressure 136/70 115/89 133/60 O2 Sat by Pulse 99 99 99 Oximetry 02/21/20 02/21/20 02/21/20 07:10 07:15 07:30 Temperature 97.6 F Pulse Rate 93 H 75 Pulse Rate [ From Monitor] Respiratory 15 16 Rate Blood Pressure 133/60 133/64 O2 Sat by Pulse 100 99 Oximetry 02/21/20 02/21/20 02/21/20 07:45 08:00 08:15 Temperature Pulse Rate 83 88 109 H Pulse Rate [ 88 From Monitor] Respiratory 17 16 17 Rate Blood Pressure 137/67 120/69 134/81 O2 Sat by Pulse 100 100 99 Oximetry 02/21/20 02/21/20 02/21/20 08:20 08:30 08:45 Temperature Pulse Rate 86 78 77 Pulse Rate [ From Monitor] Respiratory 15 13 16 Rate Blood Pressure 131/68 133/56 112/57 O2 Sat by Pulse 100 99 100 Oximetry 02/21/20 02/21/20 02/21/20 09:00 09:15 09:30 Temperature Pulse Rate 81 90 84 Pulse Rate [ From Monitor] Respiratory 15 15 12 Rate Blood Pressure 119/68 131/68 118/68 O2 Sat by Pulse 99 99 99 Oximetry 02/21/20 02/21/20 02/21/20 09:46 10:00 10:16 Temperature Pulse Rate 92 H 104 H 107 H Pulse Rate [ From Monitor] Respiratory 13 13 12 Rate Blood Pressure 137/77 127/87 133/81 O2 Sat by Pulse 99 99 100 Oximetry 02/21/20 02/21/20 02/21/20 10:30 10:45 11:00 Temperature Pulse Rate 94 H 93 H 112 H Pulse Rate [ From Monitor] Respiratory 11 L 11 L 14 Rate Blood Pressure 149/74 150/65 134/81 O2 Sat by Pulse 99 100 99 Oximetry 02/21/20 02/21/20 02/21/20 11:15 11:20 11:30 Temperature 97.8 F Pulse Rate 108 H 110 H Pulse Rate [ From Monitor] Respiratory 11 L 15 Rate Blood Pressure 137/80 130/77 O2 Sat by Pulse 100 100 Oximetry 02/21/20 02/21/20 02/21/20 11:32 11:41 11:45 Temperature 97.8 F Pulse Rate 103 H 103 H 105 H Pulse Rate [ From Monitor] Respiratory 10 L 14 14 Rate Blood Pressure 137/80 133/80 139/78 O2 Sat by Pulse 100 99 100 Oximetry 02/21/20 02/21/20 02/21/20 11:56 12:00 12:16 Temperature 97.9 F Pulse Rate 99 H 101 H 102 H Pulse Rate [ From Monitor] Respiratory 15 13 12 Rate Blood Pressure 129/80 133/70 138/76 O2 Sat by Pulse 99 99 99 Oximetry 02/21/20 12:26 Temperature 97.7 F Pulse Rate 72 Pulse Rate [ From Monitor] Respiratory 17 Rate Blood Pressure 139/67 O2 Sat by Pulse 100 Oximetry - General Appearance General appearance: well-developed, well-nourished, appears stated age, intubated EENT: PERRL, mucous membranes moist Neck: no JVD, no thyromegaly, other (Right IJ Vas-Cath in place) Respiratory: Present: Clear to Ascultation Cardiology: regular, normal heart rate Gastrointestinal: normoactive bowel sounds, other (Incision noted in her midline area. Wound VAC in place.) Integumentary: other (1+ edema) - Lab 02/21/20 03:53 02/21/20 03:53 Most recent lab results ABG pH 7.318 pH Units (7.350-7.450) L 02/21/20 04:16 ABG pCO2 42.7 mm Hg 02/21/20 04:16 ABG pO2 100.0 mm Hg (80.0-90.0) H 02/21/20 04:16 ABG HCO3 21.4 mmol/L (20.0-26.0) 02/21/20 04:16 ABG O2 Saturation 97.2 % (95.0-99.0) 02/21/20 04:16 Calcium 8.1 mg/dL (8.4-10.2) L 02/21/20 03:53 Phosphorus 6.50 mg/dL (2.5-4.5) H 02/20/20 03:15 Magnesium 2.20 mg/dL (1.7-2.3) 02/21/20 03:53 Urine Creatinine 35.3 mg/dL (0.1-20.0) H 02/12/20 Unknown Urine Total Protein 796 mg/dL (5-11.8) H 02/12/20 Unknown Medications & Allergies - Medications Allergies/Adverse Reactions: Allergies clindamycin Allergy (Verified 02/11/20 14:52) Hives Home Medications: Home Medications Medication Instructions Recorded Confirmed Last Taken Type Doxazosin [Cardura] 4 mg PO QDAY 02/11/20 02/11/20 02/10/20 History Hydralazine HCl 50 mg PO DAILY 02/11/20 02/11/20 02/10/20 History Metoprolol 25 mg PO DAILY 02/11/20 02/11/20 02/10/20 History Sertraline [Zoloft] 50 mg PO QDAY 02/11/20 02/11/20 02/10/20 History amLODIPine [Norvasc] 10 mg PO DAILY 02/11/20 02/11/20 02/10/20 History glipiZIDE 10 mg PO BID 02/11/20 02/11/20 02/10/20 History Active Medications: Generic Name Dose Route Start Last Admin Trade Name Freq PRN Reason Stop Dose Admin Acetaminophen 650 mg 02/11/20 19:01 02/12/20 17:00 Tylenol PO 650 mg Q4H PRN Administration Pain MILD(1-3)/Fever >100.5/ADAMS Lipase/Protease/Amylase 1 each 02/20/20 10:[address] 10,500 Unit FEEDTUBE PRN PRN For Clogged Feeding Tube Dextrose 50 ml 02/19/20 14:58 D50w (25gm) Syringe IV Q30MIN PRN Hypoglycemia Protocol Famotidine 20 mg 02/17/20 10:00 02/21/20 10:09 Pepcid IV 20 mg DAILY NADER Administration Fentanyl 50 mcg 02/19/20 15:30 02/19/20 15:29 Sublimaze IV 50 mcg Q10MIN PRN Administration ANALGESIA Hydromorphone HCl 1 mg 02/14/20 13:00 02/19/20 12:10 Dilaudid IV 1 mg Q3H PRN Administration Pain , Severe (7-10) Hydrophilic Ointment 1 applic 02/13/20 19:41 Vaseline Lip Therapy TP Q2HR PRN Dry Lips Metronidazole 500 mg in 100 mls @ 100 mls/hr 02/12/20 15:40 02/21/20 06:23 Flagyl 500 Mg/100 Ml IV 02/22/20 15:39 100 mls/hr Q8HR NADER Administration Heparin Sodium/Sodium Chloride 25,000 unit in 500 mls @ 20 mls/hr 02/13/20 20:00 02/21/20 12:07 Heparin/ 0.45% Nacl-25,000 Unit/500 Ml IV 1,150 units/hr TITR NADER 23 mls/hr Administration Protocol 1,000 UNITS/HR Cefepime HCl 1 gm in 100 mls @ 200 mls/hr 02/16/20 10:00 02/21/20 10:08 Cefepime/Ns 1 Gm/100 Ml IV 02/22/20 10:29 200 mls/hr Q24HR NADER Administration Protocol Diltiazem HCl 100 mg in 100 mls @ 2.5 mls/hr 02/16/20 12:19 02/21/20 06:44 Cardizem/D5w 100mg/100ml IV 2.5 mg/hr TITR NADER 2.5 mls/hr Administration 2.5 MG/HR Amiodarone HCl 900 mg/ 500 mls @ 33.333 mls/hr 02/19/20 11:00 02/21/20 08:27 Dextrose IV 0.5 mg/min DIRECT NADER 16.667 mls/hr Administration Protocol 1 MG/MIN Fentanyl Citrate 2,000 mcg in 100 mls @ 4.05 mls/hr 02/19/20 16:00 02/21/20 08:26 Fentanyl Drip Premix IV 1 mcg/kg/hr TITR NADER 4.05 mls/hr Titration Protocol 1 MCG/KG/HR Amino Acids/Electrolytes/Dextrose 1,800 mls @ 75 mls/hr 02/20/20 20:00 02/20/20 20:45 Tpn Adult IV 02/21/20 19:59 75 mls/hr DAILY@2000 NADER Administration Protocol Furosemide 100 mg/ Sodium 60 mls @ 240 mls/hr 02/20/20 15:00 02/20/20 17:28 Chloride IV Infused ONCE NADER Infusion Sodium Chloride 100 mls @ 999 mls/hr 02/21/20 09:24 Nacl 0.9% IV FABIOLA PRN Hypotension Sodium Chloride 500 mls @ 0 mls/hr 02/21/20 11:30 Nacl 0.9% 500 Ml IV 02/21/20 16:00 ONCE NADER As Directed Insulin Glargine 15 units 02/20/20 14:00 02/21/20 10:46 Lantus SUB-Q 15 units BID NADER Administration Insulin Human Lispro 0 unit 02/19/20 18:00 02/21/20 12:04 Humalog SUB-Q 10 unit Q6HR NADER Administration Protocol Labetalol HCl 20 mg 02/13/20 18:00 02/20/20 12:29 Labetalol IV 20 mg Q4H PRN Administration SBP >150 Metoprolol Tartrate 2.5 mg 02/13/20 18:00 02/18/20 04:41 Metoprolol IV 2.5 mg Q6HR PRN Administration HR >130 Multi-Ingred Cream/Lotion/Oil/Oint 1 applic 02/13/20 19:41 Artificial Tears Ophth Oint OU Q4HR PRN Dry Eye(s) Simple Syrup 15 ml 02/20/20 10:28 Simple Syrup FEEDTUBE PRN PRN Hypoglycemia Simple Syrup 30 ml 02/20/20 10:28 Simple Syrup FEEDTUBE PRN PRN Hypoglycemia Sodium Bicarbonate 325 mg 02/20/20 10:28 Sodium Bicarbonate FEEDTUBE PRN PRN For Clogged Feeding Tube Sodium Chloride 10 ml 02/11/20 22:00 02/21/20 10:09 Sodium Chloride Flush Syringe 10 Ml IV 10 ml BID NADER Administration Sodium Chloride 10 ml 02/11/20 19:01 02/15/20 22:43 Sodium Chloride Flush Syringe 10 Ml IV 10 ml PRN PRN Administration LINE FLUSH Vancomycin HCl 125 mg 02/20/20 15:00 02/21/20 12:04 Vancomycin Po PO 02/27/20 06:01 125 mg Q6HR NADER Administration
[2020-02-21 14:49] LABS: Hepatitis C Virus Antibody Non-Reactive (NonReactive)
[2020-02-21] MEDS ORDERED: HEPARIN 10,000 UNIT/1 ML VIAL ONE (14:50)
[2020-02-21 15:24] LABS: Hepatitis B Surface Antigen Non-Reactive (Negative)
--- NOTE | 2020-02-21 19:08 | Event Note ---
Date: 02/21/20 Late entry: 02/20 received call from RN around 0500 re: critical Hemoglobin of 5.9. 2 units of PRBC ordered along with type and cross. After reviewing nephrology note, patient received 100 mg of Lasix on 02/18 and "PRBC transfusion prn per primary, agree with holding for now given tenuous volume status" and after discussion of AM Cr 5.[address] Layton an order of lasix 20mg IV in between PRBC infusions was entered. f/u with CBC
--- NOTE | 2020-02-21 19:45 | Procedure Note ---
STAFF SURGEON: Dr. Imtiaz Bradford. PREOPERATIVE DIAGNOSIS: Acute renal failure. POSTOPERATIVE DIAGNOSIS: Acute renal failure. PROCEDURE PERFORMED: Right IJ Vascath insertion. COMPLICATIONS: None. ESTIMATED BLOOD LOSS: Less than 10 mL. INDICATIONS FOR PROCEDURE: This is a 74-year-old female who is hospitalized due to ischemic bowel that required an extensive bowel resection by General Surgery. The patient's postoperative course has been complicated by respiratory failure and acute renal failure requiring a dialysis access. Therefore, vascular consultation was obtained for Vascath placement. The patient's family was explained the risks, benefits, alternatives of the procedure, expressed understanding and wished to proceed. DESCRIPTION OF PROCEDURE: After appropriate consent was obtained, the right neck and chest were prepped and draped in the usual sterile fashion with ChloraPrep. Appropriate timeout was performed. We then began the intervention by obtaining percutaneous access of the right internal jugular vein using micropuncture technique under ultrasound guidance, was to obtain access, needle was exchanged for a micropuncture sheath using Seldinger technique, the J wire with the kit was placed into the inferior vena cava. The Microsheath was removed. The access site was dilated appropriately and then a 15 cm pre-curved Vascath was then placed over the wire into the SVC. The wire was removed. Both lumens chani blood appropriately, were flushed with heparinized saline. Appropriate amount of heparin was placed in each port. The catheter was then sutured in place with 3-0 nylon. Appropriate dressing was placed. The patient tolerated the procedure well and remained in stable condition. Post-procedure chest x-ray was obtained demonstrating adequate placement of the catheter with no evidence of pneumothorax. JOB# [id number] JUAN A/ANTON
[2020-02-21] MEDS ORDERED: TOTAL PARENTERAL NUTRITION 1,800 ML IV SCH (20:00)
[2020-02-22] MEDS: VANCOMYCIN 250 MG/10 ML ORAL LIQD PO SCH ×4 (00:14→18:16)
[2020-02-22] MEDS: INSULIN LISPRO 100 UNIT/ML SUB-Q SCH ×4 (00:14→18:14)
[2020-02-22 04:33] LABS: Hematocrit 22.7 % (30.3-42.9); Hemoglobin 7.4 gm/dl (10.1-14.3); Mean Corpuscular HGB Conc 33 % (30-34); Mean Corpuscular Volume 91 fl (79-97); Platelet Count 166 K/mm3 (140-440); Red Blood Count 2.49 M/mm3 (3.65-5.03); Red Cell Distribution Width 15.6 % (13.2-15.2)
[2020-02-22 04:52] LABS: Calcium 8.1 mg/dL (8.4-10.2)
[2020-02-22] MEDS: metroNIDAZOLE/NS 500 MG/100 ML 500 MG/100 ML BAG IV SCH (05:44)
[2020-02-22 06:35] LABS: Anisocytosis 1+; Basophils % (Manual) 0 % (0.0-1.8); Monocytes % (Manual) 13.5 % (0.0-7.3); Nucleated Red Blood Cells 2.5 % (0.0-0.9); Total Cells Counted 200
[2020-02-22 06:36] LABS: Platelet Estimate Consistent w Auto
--- NOTE | 2020-02-22 09:19 | Progress Note ---
Assessment and Plan - Patient Problems (1) Acute renal failure Current Visit: Yes Status: Acute (2) Atrial fibrillation Current Visit: Yes Status: Acute (3) Ischemic necrosis of small bowel Current Visit: Yes Status: Acute (4) Acute respiratory failure Current Visit: Yes Status: Acute (5) Acute kidney injury (LITZY) with acute tubular necrosis (ATN) Current Visit: Yes Status: Acute (6) Systemic inflammatory response syndrome Current Visit: Yes Status: Acute (7) Anemia Current Visit: Yes Status: Acute Subjective Principal diagnosis: Ischemic Bowel Interval history: sp prbc on vent . On AC30% 450 peep 6 Objective Vital Signs - 12hr 02/21/20 02/21/20 02/21/20 21:30 21:45 22:00 Temperature Pulse Rate 113 H 107 H 111 H Pulse Rate [ From Monitor] Respiratory 13 16 15 Rate Blood Pressure 122/70 138/82 120/75 O2 Sat by Pulse 99 99 100 Oximetry 02/21/20 02/21/20 02/21/20 22:15 22:24 22:30 Temperature Pulse Rate 111 H 112 H 112 H Pulse Rate [ From Monitor] Respiratory 16 17 16 Rate Blood Pressure 125/79 125/79 109/73 O2 Sat by Pulse 100 99 99 Oximetry 02/21/20 02/21/20 02/21/20 22:45 23:00 23:15 Temperature Pulse Rate 111 H 111 H 111 H Pulse Rate [ From Monitor] Respiratory 16 16 16 Rate Blood Pressure 114/75 129/77 128/76 O2 Sat by Pulse 100 99 100 Oximetry 02/21/20 02/21/20 02/22/20 23:30 23:45 00:00 Temperature 99.2 F Pulse Rate 111 H 112 H 112 H Pulse Rate [ From Monitor] Respiratory 15 17 17 Rate Blood Pressure 128/76 137/85 136/81 O2 Sat by Pulse 100 99 100 Oximetry 02/22/20 02/22/20 02/22/20 00:08 00:15 00:30 Temperature Pulse Rate 112 H 112 H 113 H Pulse Rate [ From Monitor] Respiratory 17 20 Rate Blood Pressure 136/81 141/86 141/86 O2 Sat by Pulse 99 100 99 Oximetry 02/22/20 02/22/20 02/22/20 00:45 01:00 01:15 Temperature Pulse Rate 112 H 110 H 131 H Pulse Rate [ From Monitor] Respiratory 17 16 14 Rate Blood Pressure 136/85 146/74 137/77 O2 Sat by Pulse 100 100 100 Oximetry 02/22/20 02/22/20 02/22/20 01:30 01:45 02:00 Temperature Pulse Rate 104 H 90 98 H Pulse Rate [ From Monitor] Respiratory 17 16 16 Rate Blood Pressure 137/77 119/52 120/60 O2 Sat by Pulse 99 99 100 Oximetry 02/22/20 02/22/20 02/22/20 02:15 02:30 02:45 Temperature Pulse Rate 107 H 99 H 105 H Pulse Rate [ From Monitor] Respiratory 16 16 16 Rate Blood Pressure 107/69 119/71 114/64 O2 Sat by Pulse 99 100 99 Oximetry 02/22/20 02/22/20 02/22/20 03:00 03:15 03:30 Temperature Pulse Rate 111 H 112 H 112 H Pulse Rate [ From Monitor] Respiratory 18 17 18 Rate Blood Pressure 114/64 146/85 143/82 O2 Sat by Pulse 99 99 99 Oximetry 02/22/20 02/22/20 02/22/20 03:45 04:00 04:15 Temperature 99.0 F Pulse Rate 111 H 112 H 111 H Pulse Rate [ From Monitor] Respiratory 16 17 16 Rate Blood Pressure 142/84 149/85 146/80 O2 Sat by Pulse 98 99 99 Oximetry 02/22/20 02/22/20 02/22/20 04:18 04:30 04:45 Temperature Pulse Rate 111 H 112 H 113 H Pulse Rate [ From Monitor] Respiratory 12 17 Rate Blood Pressure 146/80 146/85 160/83 O2 Sat by Pulse 99 100 99 Oximetry 02/22/20 02/22/20 02/22/20 05:00 05:15 05:30 Temperature Pulse Rate 112 H 112 H 112 H Pulse Rate [ From Monitor] Respiratory 16 15 15 Rate Blood Pressure 139/85 134/79 143/73 O2 Sat by Pulse 99 99 99 Oximetry 02/22/20 02/22/20 02/22/20 05:45 06:00 06:15 Temperature Pulse Rate 112 H 112 H 113 H Pulse Rate [ From Monitor] Respiratory 20 16 15 Rate Blood Pressure 147/84 139/83 124/76 O2 Sat by Pulse 99 99 99 Oximetry 02/22/20 02/22/20 02/22/20 06:30 06:45 07:00 Temperature Pulse Rate 113 H 111 H 113 H Pulse Rate [ From Monitor] Respiratory 18 15 15 Rate Blood Pressure 124/76 156/72 126/77 O2 Sat by Pulse 99 99 99 Oximetry 02/22/20 02/22/20 02/22/20 07:15 07:30 07:45 Temperature Pulse Rate 109 H 107 H 111 H Pulse Rate [ From Monitor] Respiratory 17 16 14 Rate Blood Pressure 134/79 117/71 153/82 O2 Sat by Pulse 99 99 99 Oximetry 02/22/20 02/22/20 02/22/20 08:00 08:15 08:30 Temperature 99.0 F Pulse Rate 112 H 112 H 111 H Pulse Rate [ 112 H From Monitor] Respiratory 16 16 16 Rate Blood Pressure 106/67 117/72 115/66 O2 Sat by Pulse 99 99 99 Oximetry 02/22/20 02/22/20 08:45 09:00 Temperature Pulse Rate 106 H 114 H Pulse Rate [ From Monitor] Respiratory 15 15 Rate Blood Pressure 106/67 170/101 O2 Sat by Pulse 99 97 Oximetry Constitutional: other (on vent intubated.) Eyes: non-icteric ENT: other (orally intubated ) Effort: normal Ascultation: Bilateral: clear Percussion: Bilateral: not dull Cardiovascular: irregular rhythm (but rate controlled) Gastrointestinal: other (post surgical changes) Integumentary: normal Extremities: edema Neurologic: unable to assess (on vent) CBC and BMP: 02/22/20 03:16 02/22/20 03:16 ABG, PT/INR, D-dimer: ABG ABG pH 7.318 pH Units (7.350-7.450) L 02/21/20 04:16 ABG pCO2 42.7 mm Hg 02/21/20 04:16 ABG pO2 100.0 mm Hg (80.0-90.0) H 02/21/20 04:16 ABG O2 Saturation 97.2 % (95.0-99.0) 02/21/20 04:16 PT/INR, D-dimer PT 16.9 Sec. (12.2-14.9) H 02/13/20 20:10 INR 1.41 (0.87-1.13) H 02/13/20 20:10 Abnormal lab findings: Abnormal Labs 06/17/20 06/17/20 06/17/20 15:27 15:27 15:27 WBC 22.5 H RBC Hgb Hct MCHC RDW Plt Count Seg Neuts % (Manual) 90.0 H Lymphocytes % (Manual) 4.0 L Monocytes % (Manual) Nucleated RBC % Seg Neutrophils # Man 20.3 H Lymphocytes # (Manual) 0.9 L Monocytes # (Manual) 1.1 H Eosinophils # (Manual) PT INR APTT 23.3 L Heparin Anti-Xa Level ABG pH ABG pO2 ABG HCO3 ABG O2 Saturation ABG Base Excess ABG Hemoglobin Oxyhemoglobin Sodium 132 L Potassium Chloride 96.0 L Carbon Dioxide 16 L BUN 59 H Creatinine 3.0 H Glucose 487 H POC Glucose Calcium Phosphorus Magnesium Alkaline Phosphatase 142 H Albumin Triglycerides Lipase 86 H Urine WBC (Auto) Urine Creatinine Urine Total Protein Crossmatch 02/12/20 02/12/20 02/12/20 04:58 04:58 Unknown WBC 30.0 H RBC Hgb Hct MCHC RDW Plt Count Seg Neuts % (Manual) 96.0 H Lymphocytes % (Manual) 1.0 L Monocytes % (Manual) Nucleated RBC % Seg Neutrophils # Man 28.8 H Lymphocytes # (Manual) 0.3 L Monocytes # (Manual) 0.9 H Eosinophils # (Manual) PT INR APTT Heparin Anti-Xa Level ABG pH ABG pO2 ABG HCO3 ABG O2 Saturation ABG Base Excess ABG Hemoglobin Oxyhemoglobin Sodium Potassium Chloride Carbon Dioxide 15 L BUN 59 H Creatinine 3.0 H Glucose 477 H POC Glucose Calcium Phosphorus Magnesium Alkaline Phosphatase Albumin 3.5 L Triglycerides Lipase Urine WBC (Auto) Urine Creatinine 35.3 H Urine Total Protein 796 H Crossmatch 02/13/20 02/13/20 02/13/20 05:43 05:43 13:24 WBC 38.2 H RBC Hgb Hct 43.6 H MCHC RDW Plt Count Seg Neuts % (Manual) 91.0 H Lymphocytes % (Manual) 4.0 L Monocytes % (Manual) Nucleated RBC % Seg Neutrophils # Man 34.8 H Lymphocytes # (Manual) Monocytes # (Manual) 1.1 H Eosinophils # (Manual) PT INR APTT Heparin Anti-Xa Level ABG pH ABG pO2 ABG HCO3 ABG O2 Saturation ABG Base Excess ABG Hemoglobin Oxyhemoglobin Sodium 136 L Potassium Chloride Carbon Dioxide 11 L BUN 71 H Creatinine 4.0 H Glucose 343 H POC Glucose 337 H Calcium Phosphorus Magnesium Alkaline Phosphatase Albumin Triglycerides Lipase Urine WBC (Auto) Urine Creatinine Urine Total Protein Crossmatch 02/13/20 02/13/20 02/13/20 16:49 16:50 17:30 WBC RBC Hgb Hct MCHC RDW Plt Count Seg Neuts % (Manual) Lymphocytes % (Manual) Monocytes % (Manual) Nucleated RBC % Seg Neutrophils # Man Lymphocytes # (Manual) Monocytes # (Manual) Eosinophils # (Manual) PT INR APTT Heparin Anti-Xa Level ABG pH 7.226 L ABG pO2 77.9 L ABG HCO3 16.4 L ABG O2 Saturation ABG Base Excess -10.5 L ABG Hemoglobin 11.7 L Oxyhemoglobin 92.8 L Sodium Potassium Chloride Carbon Dioxide BUN Creatinine Glucose POC Glucose 272 H Calcium Phosphorus Magnesium Alkaline Phosphatase Albumin Triglycerides Lipase Urine WBC (Auto) Urine Creatinine Urine Total Protein Crossmatch See Detail 02/13/20 02/13/20 02/14/20 20:10 22:08 00:22 WBC RBC Hgb Hct MCHC RDW Plt Count Seg Neuts % (Manual) Lymphocytes % (Manual) Monocytes % (Manual) Nucleated RBC % Seg Neutrophils # Man Lymphocytes # (Manual) Monocytes # (Manual) Eosinophils # (Manual) PT 16.9 H INR 1.41 H APTT Heparin Anti-Xa Level ABG pH 7.158 L* ABG pO2 ABG HCO3 18.6 L ABG O2 Saturation ABG Base Excess -10.2 L ABG Hemoglobin 11.9 L Oxyhemoglobin 93.1 L Sodium Potassium Chloride Carbon Dioxide BUN Creatinine Glucose POC Glucose 199 H Calcium Phosphorus Magnesium Alkaline Phosphatase Albumin Triglycerides Lipase Urine WBC (Auto) Urine Creatinine Urine Total Protein Crossmatch 02/14/20 02/14/20 02/14/20 03:45 04:29 04:29 WBC 14.4 H RBC Hgb Hct MCHC RDW 15.3 H Plt Count Seg Neuts % (Manual) 88.0 H Lymphocytes % (Manual) 6.0 L Monocytes % (Manual) Nucleated RBC % Seg Neutrophils # Man 12.7 H Lymphocytes # (Manual) 0.9 L Monocytes # (Manual) Eosinophils # (Manual) PT INR APTT Heparin Anti-Xa Level ABG pH 7.193 L* ABG pO2 ABG HCO3 16.4 L ABG O2 Saturation ABG Base Excess -11.2 L ABG Hemoglobin 10.2 L Oxyhemoglobin 94.3 L Sodium Potassium Chloride 108.5 H Carbon Dioxide 16 L BUN 73 H Creatinine 4.3 H Glucose 167 H POC Glucose Calcium 8.0 L Phosphorus Magnesium Alkaline Phosphatase Albumin Triglycerides Lipase Urine WBC (Auto) Urine Creatinine Urine Total Protein Crossmatch 02/14/20 02/14/20 02/14/20 05:26 12:11 18:34 WBC RBC Hgb Hct MCHC RDW Plt Count Seg Neuts % (Manual) Lymphocytes % (Manual) Monocytes % (Manual) Nucleated RBC % Seg Neutrophils # Man Lymphocytes # (Manual) Monocytes # (Manual) Eosinophils # (Manual) PT INR APTT Heparin Anti-Xa Level ABG pH ABG pO2 ABG HCO3 ABG O2 Saturation ABG Base Excess ABG Hemoglobin Oxyhemoglobin Sodium Potassium Chloride Carbon Dioxide BUN Creatinine Glucose POC Glucose 177 H 160 H 135 H Calcium Phosphorus Magnesium Alkaline Phosphatase Albumin Triglycerides Lipase Urine WBC (Auto) Urine Creatinine Urine Total Protein Crossmatch 02/14/20 02/15/20 02/15/20 23:18 03:19 04:28 WBC RBC Hgb Hct MCHC RDW Plt Count Seg Neuts % (Manual) Lymphocytes % (Manual) Monocytes % (Manual) Nucleated RBC % Seg Neutrophils # Man Lymphocytes # (Manual) Monocytes # (Manual) Eosinophils # (Manual) PT INR APTT Heparin Anti-Xa Level ABG pH 7.246 L ABG pO2 ABG HCO3 13.7 L ABG O2 Saturation ABG Base Excess -12.5 L ABG Hemoglobin 8.4 L Oxyhemoglobin 94.6 L Sodium Potassium Chloride Carbon Dioxide 12 L BUN 72 H Creatinine 4.7 H Glucose 147 H POC Glucose 138 H Calcium 7.9 L Phosphorus Magnesium Alkaline Phosphatase Albumin Triglycerides Lipase Urine WBC (Auto) Urine Creatinine Urine Total Protein Crossmatch 02/15/20 02/15/20 02/15/20 04:28 05:35 12:07 WBC RBC 2.88 L Hgb 8.6 L Hct 25.4 L D MCHC RDW 15.6 H Plt Count Seg Neuts % (Manual) Lymphocytes % (Manual) Monocytes % (Manual) Nucleated RBC % Seg Neutrophils # Man Lymphocytes # (Manual) Monocytes # (Manual) Eosinophils # (Manual) PT INR APTT Heparin Anti-Xa Level ABG pH ABG pO2 ABG HCO3 ABG O2 Saturation ABG Base Excess ABG Hemoglobin Oxyhemoglobin Sodium Potassium Chloride Carbon Dioxide BUN Creatinine Glucose POC Glucose 181 H 136 H Calcium Phosphorus Magnesium Alkaline Phosphatase Albumin Triglycerides Lipase Urine WBC (Auto) Urine Creatinine Urine Total Protein Crossmatch 02/15/20 02/15/20 02/16/20 17:50 23:18 04:20 WBC RBC Hgb Hct MCHC RDW Plt Count Seg Neuts % (Manual) Lymphocytes % (Manual) Monocytes % (Manual) Nucleated RBC % Seg Neutrophils # Man Lymphocytes # (Manual) Monocytes # (Manual) Eosinophils # (Manual) PT INR APTT Heparin Anti-Xa Level ABG pH ABG pO2 77.4 L ABG HCO3 ABG O2 Saturation ABG Base Excess -4.7 L ABG Hemoglobin 5.0 L Oxyhemoglobin Sodium Potassium Chloride Carbon Dioxide BUN Creatinine Glucose POC Glucose 177 H 284 H Calcium Phosphorus Magnesium Alkaline Phosphatase Albumin Triglycerides Lipase Urine WBC (Auto) Urine Creatinine Urine Total Protein Crossmatch 02/16/20 02/16/20 02/16/20 05:24 05:29 05:29 WBC RBC 2.31 L Hgb 7.2 L Hct 20.2 L MCHC 36 H RDW 15.3 H Plt Count 115 L Seg Neuts % (Manual) Lymphocytes % (Manual) Monocytes % (Manual) Nucleated RBC % Seg Neutrophils # Man Lymphocytes # (Manual) Monocytes # (Manual) Eosinophils # (Manual) PT INR APTT Heparin Anti-Xa Level ABG pH ABG pO2 ABG HCO3 ABG O2 Saturation ABG Base Excess ABG Hemoglobin Oxyhemoglobin Sodium 135 L Potassium 3.0 L D Chloride 90.7 L Carbon Dioxide BUN 64 H Creatinine 4.7 H Glucose 491 H POC Glucose 282 H Calcium 7.2 L Phosphorus Magnesium Alkaline Phosphatase Albumin Triglycerides Lipase Urine WBC (Auto) Urine Creatinine Urine Total Protein Crossmatch 02/16/20 02/16/20 02/16/20 05:29 08:39 12:27 WBC RBC Hgb Hct MCHC RDW Plt Count Seg Neuts % (Manual) Lymphocytes % (Manual) Monocytes % (Manual) Nucleated RBC % Seg Neutrophils # Man Lymphocytes # (Manual) Monocytes # (Manual) Eosinophils # (Manual) PT INR APTT Heparin Anti-Xa Level ABG pH ABG pO2 ABG HCO3 ABG O2 Saturation ABG Base Excess ABG Hemoglobin Oxyhemoglobin Sodium Potassium Chloride Carbon Dioxide BUN Creatinine Glucose POC Glucose 314 H Calcium Phosphorus Magnesium Alkaline Phosphatase Albumin Triglycerides 716 H Lipase Urine WBC (Auto) Urine Creatinine Urine Total Protein Crossmatch See Detail 02/16/20 02/17/20 02/17/20 19:04 00:02 03:45 WBC RBC Hgb Hct MCHC RDW Plt Count Seg Neuts % (Manual) Lymphocytes % (Manual) Monocytes % (Manual) Nucleated RBC % Seg Neutrophils # Man Lymphocytes # (Manual) Monocytes # (Manual) Eosinophils # (Manual) PT INR APTT Heparin Anti-Xa Level ABG pH ABG pO2 ABG HCO3 ABG O2 Saturation ABG Base Excess ABG Hemoglobin Oxyhemoglobin Sodium Potassium Chloride Carbon Dioxide 21 L BUN 63 H Creatinine 5.2 H Glucose 134 H POC Glucose 203 H 202 H Calcium 7.6 L Phosphorus Magnesium Alkaline Phosphatase Albumin Triglycerides Lipase Urine WBC (Auto) Urine Creatinine Urine Total Protein Crossmatch 02/17/20 02/17/20 02/17/20 03:45 03:45 04:06 WBC RBC Hgb 9.9 L Hct 30.1 L D MCHC RDW Plt Count Seg Neuts % (Manual) Lymphocytes % (Manual) Monocytes % (Manual) Nucleated RBC % Seg Neutrophils # Man Lymphocytes # (Manual) Monocytes # (Manual) Eosinophils # (Manual) PT INR APTT Heparin Anti-Xa Level ABG pH 7.288 L ABG pO2 ABG HCO3 ABG O2 Saturation ABG Base Excess -4.9 L ABG Hemoglobin 9.7 L Oxyhemoglobin 94.0 L Sodium Potassium Chloride Carbon Dioxide BUN Creatinine Glucose POC Glucose Calcium Phosphorus Magnesium Alkaline Phosphatase Albumin Triglycerides 238 H Lipase Urine WBC (Auto) Urine Creatinine Urine Total Protein Crossmatch 02/17/20 02/17/20 02/17/20 05:21 12:08 18:07 WBC RBC Hgb Hct MCHC RDW Plt Count Seg Neuts % (Manual) Lymphocytes % (Manual) Monocytes % (Manual) Nucleated RBC % Seg Neutrophils # Man Lymphocytes # (Manual) Monocytes # (Manual) Eosinophils # (Manual) PT INR APTT Heparin Anti-Xa Level ABG pH ABG pO2 ABG HCO3 ABG O2 Saturation ABG Base Excess ABG Hemoglobin Oxyhemoglobin Sodium Potassium Chloride Carbon Dioxide BUN Creatinine Glucose POC Glucose 132 H 141 H 189 H Calcium Phosphorus Magnesium Alkaline Phosphatase Albumin Triglycerides Lipase Urine WBC (Auto) Urine Creatinine Urine Total Protein Crossmatch 02/17/20 02/17/20 02/18/20 19:54 23:13 03:41 WBC RBC Hgb Hct MCHC RDW Plt Count Seg Neuts % (Manual) Lymphocytes % (Manual) Monocytes % (Manual) Nucleated RBC % Seg Neutrophils # Man Lymphocytes # (Manual) Monocytes # (Manual) Eosinophils # (Manual) PT INR APTT Heparin Anti-Xa Level < 0.10 L ABG pH 7.281 L ABG pO2 74.5 L ABG HCO3 16.2 L ABG O2 Saturation 94.3 L ABG Base Excess -9.7 L ABG Hemoglobin 9.8 L Oxyhemoglobin 92.1 L Sodium Potassium Chloride Carbon Dioxide BUN Creatinine Glucose POC Glucose 167 H Calcium Phosphorus Magnesium Alkaline Phosphatase Albumin Triglycerides Lipase Urine WBC (Auto) Urine Creatinine Urine Total Protein Crossmatch 02/18/20 02/18/20 02/18/20 04:37 05:44 09:00 WBC RBC Hgb Hct MCHC RDW Plt Count Seg Neuts % (Manual) Lymphocytes % (Manual) Monocytes % (Manual) Nucleated RBC % Seg Neutrophils # Man Lymphocytes # (Manual) Monocytes # (Manual) Eosinophils # (Manual) PT INR APTT Heparin Anti-Xa Level ABG pH ABG pO2 ABG HCO3 ABG O2 Saturation ABG Base Excess ABG Hemoglobin Oxyhemoglobin Sodium Potassium Chloride Carbon Dioxide 15 L BUN 65 H Creatinine 5.1 H Glucose 117 H POC Glucose 112 H Calcium 7.7 L Phosphorus 6.40 H Magnesium 1.30 L Alkaline Phosphatase Albumin Triglycerides Lipase Urine WBC (Auto) Urine Creatinine Urine Total Protein Crossmatch 02/18/20 02/18/20 02/18/20 09:00 12:41 17:58 WBC 14.9 H RBC 2.99 L Hgb 8.8 L Hct 27.1 L MCHC RDW 15.8 H Plt Count 131 L Seg Neuts % (Manual) Lymphocytes % (Manual) Monocytes % (Manual) Nucleated RBC % Seg Neutrophils # Man Lymphocytes # (Manual) Monocytes # (Manual) Eosinophils # (Manual) PT INR APTT Heparin Anti-Xa Level ABG pH ABG pO2 ABG HCO3 ABG O2 Saturation ABG Base Excess ABG Hemoglobin Oxyhemoglobin Sodium Potassium Chloride Carbon Dioxide BUN Creatinine Glucose POC Glucose 140 H 141 H Calcium Phosphorus Magnesium Alkaline Phosphatase Albumin Triglycerides Lipase Urine WBC (Auto) Urine Creatinine Urine Total Protein Crossmatch 02/18/20 02/19/20 02/19/20 23:06 03:50 04:30 WBC RBC Hgb Hct MCHC RDW Plt Count Seg Neuts % (Manual) Lymphocytes % (Manual) Monocytes % (Manual) Nucleated RBC % Seg Neutrophils # Man Lymphocytes # (Manual) Monocytes # (Manual) Eosinophils # (Manual) PT INR APTT Heparin Anti-Xa Level ABG pH 7.243 L ABG pO2 75.3 L ABG HCO3 11.8 L ABG O2 Saturation 94.0 L ABG Base Excess -14.1 L ABG Hemoglobin 9.6 L Oxyhemoglobin 91.8 L Sodium 136 L Potassium Chloride Carbon Dioxide 12 L BUN 76 H Creatinine 5.2 H Glucose 228 H POC Glucose 212 H Calcium Phosphorus Magnesium Alkaline Phosphatase Albumin Triglycerides Lipase Urine WBC (Auto) Urine Creatinine Urine Total Protein Crossmatch 02/19/20 02/19/20 02/19/20 04:30 04:30 06:19 WBC 19.8 H RBC 3.19 L Hgb 9.1 L Hct 28.9 L MCHC RDW 15.5 H Plt Count Seg Neuts % (Manual) 86.0 H Lymphocytes % (Manual) 5.0 L Monocytes % (Manual) Nucleated RBC % Seg Neutrophils # Man 17.0 H Lymphocytes # (Manual) 1.0 L Monocytes # (Manual) 1.4 H Eosinophils # (Manual) PT INR APTT Heparin Anti-Xa Level ABG pH ABG pO2 ABG HCO3 ABG O2 Saturation ABG Base Excess ABG Hemoglobin Oxyhemoglobin Sodium Potassium Chloride Carbon Dioxide BUN Creatinine Glucose POC Glucose 253 H Calcium Phosphorus 8.00 H D Magnesium Alkaline Phosphatase Albumin Triglycerides Lipase Urine WBC (Auto) Urine Creatinine Urine Total Protein Crossmatch 02/19/20 02/19/20 02/19/20 11:37 14:00 14:00 WBC RBC Hgb Hct MCHC RDW Plt Count Seg Neuts % (Manual) Lymphocytes % (Manual) Monocytes % (Manual) Nucleated RBC % Seg Neutrophils # Man Lymphocytes # (Manual) Monocytes # (Manual) Eosinophils # (Manual) PT INR APTT Heparin Anti-Xa Level ABG pH ABG pO2 ABG HCO3 ABG O2 Saturation ABG Base Excess ABG Hemoglobin Oxyhemoglobin Sodium 132 L Potassium Chloride 95.4 L Carbon Dioxide 15 L BUN 75 H Creatinine 5.2 H Glucose 526 H* POC Glucose 288 H Calcium 7.6 L Phosphorus Magnesium Alkaline Phosphatase Albumin Triglycerides Lipase Urine WBC (Auto) 166.0 H Urine Creatinine Urine Total Protein Crossmatch 02/19/20 02/19/20 02/19/20 15:07 17:40 23:40 WBC RBC Hgb Hct MCHC RDW Plt Count Seg Neuts % (Manual) Lymphocytes % (Manual) Monocytes % (Manual) Nucleated RBC % Seg Neutrophils # Man Lymphocytes # (Manual) Monocytes # (Manual) Eosinophils # (Manual) PT INR APTT Heparin Anti-Xa Level ABG pH ABG pO2 ABG HCO3 ABG O2 Saturation ABG Base Excess ABG Hemoglobin Oxyhemoglobin Sodium Potassium Chloride Carbon Dioxide BUN Creatinine Glucose POC Glucose 324 H 328 H 390 H Calcium Phosphorus Magnesium Alkaline Phosphatase Albumin Triglycerides Lipase Urine WBC (Auto) Urine Creatinine Urine Total Protein Crossmatch 02/20/20 02/20/20 02/20/20 03:15 03:15 03:15 WBC 13.6 H RBC 2.43 L Hgb 7.1 L Hct 21.3 L D MCHC RDW Plt Count 136 L Seg Neuts % (Manual) 81.0 H Lymphocytes % (Manual) 5.0 L Monocytes % (Manual) Nucleated RBC % Seg Neutrophils # Man 11.0 H Lymphocytes # (Manual) 0.7 L Monocytes # (Manual) Eosinophils # (Manual) PT INR APTT Heparin Anti-Xa Level 0.19 L ABG pH ABG pO2 ABG HCO3 ABG O2 Saturation ABG Base Excess ABG Hemoglobin Oxyhemoglobin Sodium Potassium 3.5 L D Chloride Carbon Dioxide 19 L BUN 85 H Creatinine 5.4 H Glucose 353 H POC Glucose Calcium 8.3 L Phosphorus 6.50 H Magnesium Alkaline Phosphatase Albumin Triglycerides Lipase Urine WBC (Auto) Urine Creatinine Urine Total Protein Crossmatch 02/20/20 02/20/20 02/20/20 04:29 05:21 11:52 WBC RBC Hgb Hct MCHC RDW Plt Count Seg Neuts % (Manual) Lymphocytes % (Manual) Monocytes % (Manual) Nucleated RBC % Seg Neutrophils # Man Lymphocytes # (Manual) Monocytes # (Manual) Eosinophils # (Manual) PT INR APTT Heparin Anti-Xa Level ABG pH ABG pO2 ABG HCO3 ABG O2 Saturation ABG Base Excess -3.8 L ABG Hemoglobin 6.0 L Oxyhemoglobin 94.6 L Sodium Potassium Chloride Carbon Dioxide BUN Creatinine Glucose POC Glucose 400 H 348 H Calcium Phosphorus Magnesium Alkaline Phosphatase Albumin Triglycerides Lipase Urine WBC (Auto) Urine Creatinine Urine Total Protein Crossmatch 02/20/20 02/20/20 02/20/20 18:30 20:02 23:31 WBC RBC Hgb Hct MCHC RDW Plt Count Seg Neuts % (Manual) Lymphocytes % (Manual) Monocytes % (Manual) Nucleated RBC % Seg Neutrophils # Man Lymphocytes # (Manual) Monocytes # (Manual) Eosinophils # (Manual) PT INR APTT Heparin Anti-Xa Level ABG pH ABG pO2 ABG HCO3 ABG O2 Saturation ABG Base Excess ABG Hemoglobin Oxyhemoglobin Sodium Potassium Chloride Carbon Dioxide BUN Creatinine Glucose 584 H* POC Glucose 422 H 341 H Calcium Phosphorus Magnesium Alkaline Phosphatase Albumin Triglycerides Lipase Urine WBC (Auto) Urine Creatinine Urine Total Protein Crossmatch 02/21/20 02/21/20 02/21/20 03:53 03:53 03:53 WBC RBC Hgb 5.9 L* Hct 18.5 L* MCHC RDW Plt Count Seg Neuts % (Manual) Lymphocytes % (Manual) Monocytes % (Manual) Nucleated RBC % Seg Neutrophils # Man Lymphocytes # (Manual) Monocytes # (Manual) Eosinophils # (Manual) PT INR APTT Heparin Anti-Xa Level 1.13 H ABG pH ABG pO2 ABG HCO3 ABG O2 Saturation ABG Base Excess ABG Hemoglobin Oxyhemoglobin Sodium 136 L Potassium Chloride 97.5 L Carbon Dioxide 21 L BUN 97 H Creatinine 5.3 H Glucose 246 H POC Glucose Calcium 8.1 L Phosphorus Magnesium Alkaline Phosphatase Albumin Triglycerides Lipase Urine WBC (Auto) Urine Creatinine Urine Total Protein Crossmatch 02/21/20 02/21/20 02/21/20 04:16 06:00 06:32 WBC RBC Hgb Hct MCHC RDW Plt Count Seg Neuts % (Manual) Lymphocytes % (Manual) Monocytes % (Manual) Nucleated RBC % Seg Neutrophils # Man Lymphocytes # (Manual) Monocytes # (Manual) Eosinophils # (Manual) PT INR APTT Heparin Anti-Xa Level ABG pH 7.318 L ABG pO2 100.0 H ABG HCO3 ABG O2 Saturation ABG Base Excess -4.4 L ABG Hemoglobin 9.1 L Oxyhemoglobin Sodium Potassium Chloride Carbon Dioxide BUN Creatinine Glucose POC Glucose 317 H Calcium Phosphorus Magnesium Alkaline Phosphatase Albumin Triglycerides Lipase Urine WBC (Auto) Urine Creatinine Urine Total Protein Crossmatch See Detail 02/21/20 02/21/20 02/21/20 11:45 17:40 23:37 WBC RBC Hgb Hct MCHC RDW Plt Count Seg Neuts % (Manual) Lymphocytes % (Manual) Monocytes % (Manual) Nucleated RBC % Seg Neutrophils # Man Lymphocytes # (Manual) Monocytes # (Manual) Eosinophils # (Manual) PT INR APTT Heparin Anti-Xa Level ABG pH ABG pO2 ABG HCO3 ABG O2 Saturation ABG Base Excess ABG Hemoglobin Oxyhemoglobin Sodium Potassium Chloride Carbon Dioxide BUN Creatinine Glucose POC Glucose 389 H 387 H 297 H Calcium Phosphorus Magnesium Alkaline Phosphatase Albumin Triglycerides Lipase Urine WBC (Auto) Urine Creatinine Urine Total Protein Crossmatch 02/22/20 02/22/20 02/22/20 03:16 03:16 03:16 WBC 22.8 H RBC 2.49 L Hgb 7.4 L Hct 22.7 L MCHC RDW 15.6 H Plt Count Seg Neuts % (Manual) 74.0 H Lymphocytes % (Manual) 8.5 L Monocytes % (Manual) 13.5 H Nucleated RBC % 2.5 H Seg Neutrophils # Man 16.9 H Lymphocytes # (Manual) Monocytes # (Manual) 3.1 H Eosinophils # (Manual) 0.5 H PT INR APTT Heparin Anti-Xa Level 0.27 L ABG pH ABG pO2 ABG HCO3 ABG O2 Saturation ABG Base Excess ABG Hemoglobin Oxyhemoglobin Sodium 135 L Potassium Chloride 95.2 L Carbon Dioxide BUN 83 H Creatinine 4.3 H Glucose 264 H POC Glucose Calcium 8.1 L Phosphorus 4.60 H Magnesium Alkaline Phosphatase Albumin Triglycerides Lipase Urine WBC (Auto) Urine Creatinine Urine Total Protein Crossmatch 02/22/20 05:16 WBC RBC Hgb Hct MCHC RDW Plt Count Seg Neuts % (Manual) Lymphocytes % (Manual) Monocytes % (Manual) Nucleated RBC % Seg Neutrophils # Man Lymphocytes # (Manual) Monocytes # (Manual) Eosinophils # (Manual) PT INR APTT Heparin Anti-Xa Level ABG pH ABG pO2 ABG HCO3 ABG O2 Saturation ABG Base Excess ABG Hemoglobin Oxyhemoglobin Sodium Potassium Chloride Carbon Dioxide BUN Creatinine Glucose POC Glucose 321 H Calcium Phosphorus Magnesium Alkaline Phosphatase Albumin Triglycerides Lipase Urine WBC (Auto) Urine Creatinine Urine Total Protein Crossmatch
--- NOTE | 2020-02-22 09:43 | Progress Note ---
Assessment and Plan Assessment and plan: Sepsis. Etiology due to ischemic bowel. Acute hypoxic resp failure. Pulm following. 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 Pt. is s/p Exploratory laparotomy, extensive small bowel resection, partial colon resection, placement of abthera vac on 02/13/2020. S/p exploratory laparotomy, enterocolonic anastamosis, closure of abdomen, application of wound vac on 02/15 UTI. Continue antibiotics per ID. Presumed infected renal cyst. ID following Diabetes Mellitus type 2. Tight glycemic control, accucheks and ssri Diarrhea- resolved prior to presentation, doubt C diff, likely from ischemic bowel. LITZY on CKD: Renally adjust antibiotics, worsening Right saphenous vein DVT. Anticoagulation C. difficile colitis. Recommend p.o. vancomycin 02/18/2020. Patient still with oral ETT on mechanical ventilation. Patient currently with PSVT trials, FiO2 30% pressure support 12 and PEEP 6. Continue to wean as tolerated. Consider extubation today. However, chest x-ray today reveals developing right pleural effusion. Continue wound care per wound team. Continue incisional wound VAC. Continue strict n.p.o. and NGT to low intermittent suction. Continue IV antibiotics per ID 02/19/2020. Patient currently with AC mode ventilation rate 16, tidal volume 450, FiO2 30%, PEEP 6. Continue to wean per protocol and pulmonary recommendations. Patient failed PSV secondary to tachypnea today. Continue wound care per wound team. Continue incisional wound VAC. Continue strict n.p.o. and NGT to low intermittent suction. Continue IV antibiotics per ID. Creatinine stable today at 5.1/5.2 and remains non-oliguric; no indication for renal replacement therapy emergently per nephrology. Nephrology to administer 100 mg of IV Lasix today to further promote diuresis and help with metabolic acidosis. Remains at high risk for needing renal replacement therapy 02/20/2020. Patient currently with AC mode ventilation rate 16, tidal volume 450, FiO2 30%, PEEP 6. Continue to wean per protocol and pulmonary recommendations. Patient failed PSV trials. Patient with right lower extremity DVT. Continue anticoagulation which patient is currently on. Patient also with C. difficile colitis/C. difficile positive. We will start p.o. vancomycin. Acute kidney injury on CKD continues to worsen. Therefore, patient will likely need hemodialysis. Defer to nephrology. 02/21/2020. Patient remains on mechanical ventilation AC mode, rate 16, tidal volume 450, FiO2 30%. Continue weaning per protocol. 2 units PRBCs ordered stat for severe anemia. Follow-up CBC posttransfusion. Patient currently on anticoagulation for right lower extremity DVT. Continue wound care. BG elevated in the 300s. We will start Lantus 10 units at bedtime. 02/22/2020. Patient remains on mechanical ventilation AC mode rate 16, tidal volume 450 and FiO2 30%. Continue PSB trials urine culture found to be negative. Continue p.o. vancomycin for C. difficile. Continue cefepime, Flagyl and fluconazole for sepsis/peritonitis. Blood cultures thus far negative. Patient s/p PRBCs for severe anemia. Hemoglobin stable at 7.4. Follow-up CBC in a.m. Patient currently on anticoagulation for right lower extremity DVT. The high probability of a clinically significant, sudden or life threatening deterioration of the [respiratory] system(s) required my full and direct attention, intervention and personal management. The aggregate critical care time was [31] minutes. This time is in addition to time spent performing reported procedures but includes the following: [x] Data Review and interpretation [x] Patient assessment and monitoring of vital signs [x] Documentation [x] Medication orders and management History Interval history: No new issues Hospitalist Physical - Constitutional Vitals: Temp Pulse Resp BP Pulse Ox 99.0 F 114 H 15 170/101 97 02/22/20 08:00 02/22/20 09:00 02/22/20 09:00 02/22/20 09:00 02/22/20 09:00 General appearance: Present: other (Intubated) - EENT Eyes: Present: PERRL, EOM intact ENT: hearing intact, clear oral mucosa, dentition normal - Neck Neck: Present: supple, normal ROM - Respiratory Respiratory effort: normal Respiratory: bilateral: CTA - Cardiovascular Rhythm: regular Heart Sounds: Present: S1 & S2. Absent: gallop, rub - Extremities Extremities: no ischemia, No edema, Full ROM - Abdominal General gastrointestinal: soft, non-tender, non-distended, normal bowel sounds - Integumentary Integumentary: Present: clear, warm, dry - Neurologic Neurologic: CNII-XII intact, moves all extremities HEART Score - HEART Score Troponin: Troponin T < 0.010 ng/mL (0.00-0.029) 02/11/20 15:27 Results - Labs CBC & Chem 7: 02/22/20 03:16 02/22/20 03:16 Labs: Laboratory Last Values WBC 22.8 K/mm3 (4.5-11.0) H 02/22/20 03:16 RBC 2.49 M/mm3 (3.65-5.03) L 02/22/20 03:16 Hgb 7.4 gm/dl (10.1-14.3) L 02/22/20 03:16 Hct 22.7 % (30.3-42.9) L 02/22/20 03:16 MCV 91 fl (79-97) 02/22/20 03:16 MCH 30 pg (28-32) 02/22/20 03:16 MCHC 33 % (30-34) 02/22/20 03:16 RDW 15.6 % (13.2-15.2) H 02/22/20 03:16 Plt Count 166 K/mm3 (140-440) 02/22/20 03:16 Add Manual Diff Complete 02/22/20 03:16 Total Counted 200 02/22/20 03:16 Seg Neutrophils % [employer] 02/14/20 04:29 Seg Neuts % (Manual) 74.0 % (40.0-70.0) H 02/22/20 03:16 Band Neutrophils % 0 % 02/22/20 03:16 Lymphocytes % (Manual) 8.5 % (13.4-35.0) L 02/22/20 03:16 Reactive Lymphs % (Man) 2.0 % 02/22/20 03:16 Monocytes % (Manual) 13.5 % (0.0-7.3) H 02/22/20 03:16 Eosinophils % (Manual) 2.0 % (0.0-4.3) 02/22/20 03:16 Basophils % (Manual) 0 % (0.0-1.8) 02/22/20 03:16 Metamyelocytes % 0 % 02/22/20 03:16 Myelocytes % 0 % 02/22/20 03:16 Promyelocytes % 0 % 02/22/20 03:16 Blast Cells % 0 % 02/22/20 03:16 Nucleated RBC % 2.5 % (0.0-0.9) H 02/22/20 03:16 Seg Neutrophils # Man 16.9 K/mm3 (1.8-7.7) H 02/22/20 03:16 Band Neutrophils # 0.0 K/mm3 02/22/20 03:16 Lymphocytes # (Manual) 1.9 K/mm3 (1.2-5.4) 02/22/20 03:16 Abs React Lymphs (Man) 0.5 K/mm3 02/22/20 03:16 Monocytes # (Manual) 3.1 K/mm3 (0.0-0.8) H 02/22/20 03:16 Eosinophils # (Manual) 0.5 K/mm3 (0.0-0.4) H 02/22/20 03:16 Basophils # (Manual) 0.0 K/mm3 (0.0-0.1) 02/22/20 03:16 Metamyelocytes # 0.0 K/mm3 02/22/20 03:16 Myelocytes # 0.0 K/mm3 02/22/20 03:16 Promyelocytes # 0.0 K/mm3 02/22/20 03:16 Blast Cells # 0.0 K/mm3 02/22/20 03:16 WBC Morphology Not Reportable 02/22/20 03:16 Hypersegmented Neuts Not Reportable 02/22/20 03:16 Hyposegmented Neuts Not Reportable 02/22/20 03:16 Hypogranular Neuts Not Reportable 02/22/20 03:16 Smudge Cells Not Reportable 02/22/20 03:16 Toxic Granulation Not Reportable 02/22/20 03:16 Toxic Vacuolation Not Reportable 02/22/20 03:16 Dohle Bodies Not Reportable 02/22/20 03:16 Pelger-Huet Anomaly Not Reportable 02/22/20 03:16 Jyoti Rods Not Reportable 02/22/20 03:16 Platelet Estimate Consistent w auto 02/22/20 03:16 Clumped Platelets Not Reportable 02/22/20 03:16 Plt Clumps, EDTA Not Reportable 02/22/20 03:16 Large Platelets Not Reportable 02/22/20 03:16 Giant Platelets Not Reportable 02/22/20 03:16 Platelet Satelliting Not Reportable 02/22/20 03:16 Plt Morphology Comment Not Reportable 02/22/20 03:16 RBC Morphology Not Reportable 02/22/20 03:16 Dimorphic RBCs Not Reportable 02/22/20 03:16 Polychromasia Not Reportable 02/22/20 03:16 Hypochromasia Not Reportable 02/22/20 03:16 Poikilocytosis Not Reportable 02/22/20 03:16 Anisocytosis 1+ 02/22/20 03:16 Microcytosis Not Reportable 02/22/20 03:16 Macrocytosis Not Reportable 02/22/20 03:16 Spherocytes Not Reportable 02/22/20 03:16 Pappenheimer Bodies Not Reportable 02/22/20 03:16 Sickle Cells Not Reportable 02/22/20 03:16 Target Cells Not Reportable 02/22/20 03:16 Tear Drop Cells Not Reportable 02/22/20 03:16 Ovalocytes Not Reportable 02/22/20 03:16 Helmet Cells Not Reportable 02/22/20 03:16 [place] Bodies Not Reportable 02/22/20 03:16 [place] Rings Not Reportable 02/22/20 03:16 Andrea Cells Not Reportable 02/22/20 03:16 Bite Cells Not Reportable 02/22/20 03:16 Crenated Cell Not Reportable 02/22/20 03:16 Elliptocytes Not Reportable 02/22/20 03:16 Acanthocytes (Spur) Not Reportable 02/22/20 03:16 Rouleaux Not Reportable 02/22/20 03:16 Hemoglobin C Crystals Not Reportable 02/22/20 03:16 Schistocytes Not Reportable 02/22/20 03:16 Malaria parasites Not Reportable 02/22/20 03:16 Babar Bodies Not Reportable 02/22/20 03:16 Hem Pathologist Commnt No 02/22/20 03:16 PT 16.9 Sec. (12.2-14.9) H 02/13/20 20:10 INR 1.41 (0.87-1.13) H 02/13/20 20:10 APTT 35.3 Sec. (24.2-36.6) 02/13/20 20:10 Heparin Anti-Xa Level 0.27 U.I./ml (0.3-0.7) L 02/22/20 03:16 ABG pH 7.318 pH Units (7.350-7.450) L 02/21/20 04:16 ABG pCO2 42.7 mm Hg 02/21/20 04:16 ABG pO2 100.0 mm Hg (80.0-90.0) H 02/21/20 04:16 ABG HCO3 21.4 mmol/L (20.0-26.0) 02/21/20 04:16 ABG O2 Saturation 97.2 % (95.0-99.0) 02/21/20 04:16 ABG O2 Content 12.3 (0.0-44) 02/21/20 04:16 ABG Base Excess -4.4 mmol/L (-2.0-3.0) L 02/21/20 04:16 ABG Hemoglobin 9.1 gm/dl (12.0-16.0) L 02/21/20 04:16 ABG Carboxyhemoglobin 1.5 % (0.0-5.0) 02/21/20 04:16 ABG Methemoglobin 0.7 % (0.0-1.5) 02/21/20 04:16 Oxyhemoglobin 95.2 % (95.0-99.0) 02/21/20 04:16 FiO2 30 % 02/21/20 04:16 Sodium 135 mmol/L (137-145) L 02/22/20 03:16 Potassium 3.7 mmol/L (3.6-5.0) 02/22/20 03:16 Chloride 95.2 mmol/L (98-107) L 02/22/20 03:16 Carbon Dioxide 22 mmol/L (22-30) 02/22/20 03:16 Anion Gap 22 mmol/L 02/22/20 03:16 BUN 83 mg/dL (7-17) H 02/22/20 03:16 Creatinine 4.3 mg/dL (0.7-1.2) H 02/22/20 03:16 Estimated GFR 10 ml/min 02/22/20 03:16 BUN/Creatinine Ratio 19 % 02/22/20 03:16 Glucose 264 mg/dL (65-100) H 02/22/20 03:16 POC Glucose 321 (70-105) H 02/22/20 05:16 Ketones Quantitative Negative (Negative) 02/13/20 14:51 Lactic Acid 0.70 mmol/L (0.7-2.0) 02/14/20 Unknown Calcium 8.1 mg/dL (8.4-10.2) L 02/22/20 03:16 Phosphorus 4.60 mg/dL (2.5-4.5) H 02/22/20 03:16 Magnesium 2.00 mg/dL (1.7-2.3) 02/22/20 03:16 Total Bilirubin 0.20 mg/dL (0.1-1.2) 02/12/20 04:58 Direct Bilirubin < 0.2 mg/dL (0-0.2) 02/11/20 15:27 Indirect Bilirubin 0.2 mg/dL 02/11/20 15:27 AST 16 units/L (5-40) 02/12/20 04:58 ALT 24 units/L (7-56) 02/12/20 04:58 Alkaline Phosphatase 127 units/L (35-129) 02/12/20 04:58 Troponin T < 0.010 ng/mL (0.00-0.029) 02/11/20 15:27 Total Protein 7.0 g/dL (6.3-8.2) 02/12/20 04:58 Albumin 3.5 g/dL (3.9-5) L 02/12/20 04:58 Albumin/Globulin Ratio 1.0 % 02/12/20 04:58 Triglycerides 238 mg/dL (2-149) H 02/17/20 03:45 Lipase 60 units/L (13-60) 02/13/20 14:51 Urine Color Yellow (Yellow) 02/19/20 14:00 Urine Turbidity Cloudy (Clear) 02/19/20 14:00 Urine pH 5.0 (5.0-7.0) 02/19/20 14:00 Ur Specific [place] 1.007 (1.003-1.030) 02/19/20 14:00 Urine Protein 100 mg/dl mg/dL (Negative) 02/19/20 14:00 Urine Glucose (UA) >=500 mg/dL (Negative) 02/19/20 14:00 Urine Ketones Tr mg/dL (Negative) 02/19/20 14:00 Urine Blood Lg (Negative) 02/19/20 14:00 Urine Nitrite Neg (Negative) 02/19/20 14:00 Urine Bilirubin Neg (Negative) 02/19/20 14:00 Urine Urobilinogen < 2.0 mg/dL (<2.0) 02/19/20 14:00 Ur Leukocyte Esterase Lg (Negative) 02/19/20 14:00 Urine WBC (Auto) 166.0 /HPF (0.0-6.0) H 02/19/20 14:00 Urine RBC (Auto) 20.0 /HPF (0.0-6.0) 02/19/20 14:00 U Epithel Cells (Auto) 2.0 /HPF (0-13.0) 02/19/20 14:00 Urine Bacteria (Auto) 1+ /HPF (Negative) 02/19/20 14:00 Urine WBC Clumps 3+ /HPF 02/19/20 14:00 Urine Mucus Few /HPF 02/19/20 14:00 Urine Yeast (Budding) 3+ /HPF 02/19/20 14:00 Urine Eosinophils None seen (None Seen) 02/12/20 Unknown Urine Creatinine 35.3 mg/dL (0.1-20.0) H 02/12/20 Unknown Protein/Creatinin Ratio 22.55 02/12/20 Unknown Urine Total Protein 796 mg/dL (5-11.8) H 02/12/20 Unknown C. difficile Tox (PCR) Positive (Negative) 02/19/20 12:46 Hepatitis A IgM Ab Non-reactive (NonReactive) 02/21/20 10:30 Hep Bs Antigen Non-reactive (Negative) 02/21/20 10:30 Hep B Core IgM Ab Non-reactive (NonReactive) 02/21/20 10:30 Hepatitis C Antibody Non-reactive (NonReactive) 02/21/20 10:30 Blood Type O NEGATIVE 02/21/20 06:00 Antibody Screen Negative 02/21/20 06:00 Crossmatch See Detail 02/21/20 06:00 Microbiology: Microbiology 02/19/20 15:30 Peripheral/Venous Blood Culture - Preliminary NO GROWTH AFTER 48 HOURS 02/19/20 15:00 Peripheral/Venous Blood Culture - Preliminary NO GROWTH AFTER 48 HOURS 02/19/20 14:00 Urine,Catheterized - Indwelling Catheter Urine Culture - Final - Diagnostic Impressions Diagnostic Impressions: Echocardiogram 02/13/20 18:02 Transthoracic Echocardiogram Indication: Afib BP: 101/70 HR: 128 Findings Left Ventricle: The left ventricular chamber size is normal. Mild to moderate concentric left ventricular hypertrophy is observed. Global left ventricular wall motion and contractility are within normal limits. Global left ventricular systolic function is normal. The estimated ejection fraction is 60-65%. Left Atrium: The left atrium is mild to moderately dilated. Right Ventricle: The right ventricular cavity size is normal. The right ventricular global systolic function is normal. Right Atrium: The right atrium appears normal. The interatrial septum appears normal. Aortic Valve: The aortic valve structure is normal. The aortic valve leaflets are mildly thickened. There is no evidence of aortic regurgitation. There is no evidence of aortic stenosis. Mitral Valve: The mitral valve leaflets appear normal. There is no evidence of mitral regurgitation. There is no evidence of mitral stenosis. Tricuspid Valve: The tricuspid valve leaflets are normal. There is mild to moderate tricuspid regurgitation. The right ventricular systolic pressure is calculated at 39 mmHg. There is evidence of pulmonary hypertension. There is no tricuspid stenosis. Pulmonic Valve: The pulmonic valve appears normal. There is no evidence of pulmonic regurgitation. There is no pulmonic stenosis. Pericardium: A pericardial effusion is visualized. There is a minimial pericardial effusion. A left pleural effusion is present. There is a moderate pleural effusion. Aorta: There is no dilatation of the ascending aorta. There is no dilatation of the aortic arch. There is no dilatation of the descending thoracic aorta. There is no dilatation of the aortic root. Venous: The inferior vena cava appears normal in size. Measurements Chambers 2D Name Value Normal Range IVSd (2D) 1.34 cm (0.6 - 1.1) LVPWd (2D) 1.35 cm (0.6 - 1.1) LVIDd (2D) 4.72 cm (3.7 - 5.6) LVIDs (2D) 3.28 cm (2 - 3.8) LV FS (2D) 30.38 % - EF Teichholz (2D) 57.75 % - Ao root diameter (2D) 3.02 cm (2 - 3.7) Volumes/Mass Name Value Normal Range LA ESV SP 4CH (A/L) 55.87 ml - LA ESV SP 2CH (A/L) 67.65 ml - LA ESV BP (A/L) 63.67 ml - LA ESV SP 4CH (MOD) 54.25 ml - LA ESV SP 2CH (MOD) 63.2 ml - LA ESV BP (MOD) 60.49 ml - LA ESV BP (MOD) index 34.18 ml/m2 - LV EDV SP 4CH (MOD) 70.96 ml - LV ESV SP 4CH (MOD) 23.49 ml - EF SP 4CH (MOD) 66.89 % - LV EDV SP 2CH (MOD) 61.41 ml - LV ESV SP 2CH (MOD) 27.43 ml - EF SP 2CH (MOD) 55.33 % - LV EDV BP 69.85 ml - LV ESV BP 26.44 ml - BP EF (MOD) 62.14 % - Aortic Valve Name Value Normal Range AV Vmax 1.29 m/sec - AV VTI 18.56 cm - AV peak gradient 6.69 mmHg - AV mean gradient 3.39 mmHg - LVOT diameter 1.95 cm - LVOT Vmax 1.14 m/sec - LVOT VTI 16.24 cm - LVOT peak gradient 5.21 mmHg - LVOT mean gradient 2.04 mmHg - SV LVOT 48.71 ml - TABATHA (continuity Vmax) 2.65 cm2 - TABATHA (continuity VTI) 2.62 cm2 - Ascending Ao 2.96 cm - Tricuspid Valve Name Value Normal Range TR Vmax 2.47 m/sec - TR peak gradient 24 mmHg - RAP 15 mmHg - RVSP 39 mmHg - Pulmonic Valve/Qp:Qs Name Value Normal Range PV Vmax 1.15 m/sec - PV peak gradient 5.33 mmHg - PV acceleration time 68.51 msec - Acevedo/IV: Voiding Method Indwelling Catheter IV Catheter Type [Right VAS Cath Internal Jugular] IV Catheter Type [Left Upper PICC Line arm] IV Catheter Type [Right INT / Saline Lock Antecubital] IV Catheter Type [Right Peripheral IV Forearm] IV Catheter Type [Left Forearm INT / Saline Lock ] IV Catheter Type [Right Hand] Peripheral IV Active Medications - Current Medications Current Medications: Generic Name Dose Route Start Last Admin Trade Name Freq PRN Reason Stop Dose Admin Acetaminophen 650 mg 02/11/20 19:01 02/12/20 17:00 Tylenol PO 650 mg Q4H PRN Administration Pain MILD(1-3)/Fever >100.5/ADAMS Lipase/Protease/Amylase 1 each 02/20/20 10:28 Pancreaze 10,500 Unit FEEDTUBE PRN PRN For Clogged Feeding Tube Dextrose 50 ml 02/19/20 14:58 D50w (25gm) Syringe IV Q30MIN PRN Hypoglycemia Protocol Famotidine 20 mg 02/17/20 10:00 02/21/20 10:09 Pepcid IV 20 mg DAILY NADER Administration Fentanyl 50 mcg 02/19/20 15:30 02/19/20 15:29 Sublimaze IV 50 mcg Q10MIN PRN Administration ANALGESIA Hydromorphone HCl 1 mg 02/14/20 13:00 02/19/20 12:10 Dilaudid IV 1 mg Q3H PRN Administration Pain , Severe (7-10) Hydrophilic Ointment 1 applic 02/13/20 19:41 Vaseline Lip Therapy TP Q2HR PRN Dry Lips Metronidazole 500 mg in 100 mls @ 100 mls/hr 02/12/20 15:40 02/22/20 05:44 Flagyl 500 Mg/100 Ml IV 02/22/20 15:39 100 mls/hr Q8HR NADER Administration Heparin Sodium/Sodium Chloride 25,000 unit in 500 mls @ 20 mls/hr 02/13/20 20:00 02/22/20 04:42 Heparin/ 0.45% Nacl-25,000 Unit/500 Ml IV 1,150 units/hr TITR NADER 23 mls/hr Titration Protocol 1,000 UNITS/HR Cefepime HCl 1 gm in 100 mls @ 200 mls/hr 02/16/20 10:00 02/21/20 10:08 Cefepime/Ns 1 Gm/100 Ml IV 02/22/20 10:29 200 mls/hr Q24HR NADER Administration Protocol Diltiazem HCl 100 mg in 100 mls @ 2.5 mls/hr 02/16/20 12:19 02/21/20 06:44 Cardizem/D5w 100mg/100ml IV 2.5 mg/hr TITR NADER 2.5 mls/hr Administration 2.5 MG/HR Amiodarone HCl 900 mg/ 500 mls @ 33.333 mls/hr 02/19/20 11:00 02/21/20 08:27 Dextrose IV 0.5 mg/min DIRECT NADER 16.667 mls/hr Administration Protocol 1 MG/MIN Fentanyl Citrate 2,000 mcg in 100 mls @ 4.05 mls/hr 02/19/20 16:00 02/21/20 23:20 Fentanyl Drip Premix IV 1 mcg/kg/hr TITR NADER 4.05 mls/hr Administration Protocol 1 MCG/KG/HR Furosemide 100 mg/ Sodium 60 mls @ 240 mls/hr 02/20/20 15:00 02/20/20 17:28 Chloride IV Infused ONCE [facility] Infusion Sodium Chloride 100 mls @ 999 mls/hr 02/21/20 09:24 Nacl 0.9% IV FABIOLA PRN Hypotension Amino Acids/Electrolytes/Dextrose 1,800 mls @ 75 mls/hr 02/21/20 20:00 02/21/20 20:52 Tpn Adult IV 02/22/20 19:59 75 mls/hr DAILY@2000 [facility] Administration Protocol Insulin Glargine 20 units 02/21/20 22:00 02/21/20 21:01 Lantus SUB-Q 20 units BID [facility] Administration Insulin Human Lispro 0 unit 02/19/20 18:00 02/22/20 05:44 Humalog SUB-Q 8 unit Q6HR [facility] Administration Protocol Labetalol HCl 20 mg 02/13/20 18:00 02/20/20 12:29 Labetalol IV 20 mg Q4H PRN Administration SBP >150 Metoprolol Tartrate 2.5 mg 02/13/20 18:00 02/18/20 04:41 Metoprolol IV 2.5 mg Q6HR PRN Administration HR >130 Multi-Ingred Cream/Lotion/Oil/Oint 1 applic 02/13/20 19:41 Artificial Tears Ophth Oint OU Q4HR PRN Dry Eye(s) Simple Syrup 15 ml 02/20/20 10:28 Simple Syrup FEEDTUBE PRN PRN Hypoglycemia Simple Syrup 30 ml 02/20/20 10:28 Simple Syrup FEEDTUBE PRN PRN Hypoglycemia Sodium Bicarbonate 325 mg 02/20/20 10:28 Sodium Bicarbonate FEEDTUBE PRN PRN For Clogged Feeding Tube Sodium Chloride 10 ml 02/11/20 22:00 02/21/20 21:01 Sodium Chloride Flush Syringe 10 Ml IV 10 ml BID NADER Administration Sodium Chloride 10 ml 02/11/20 19:01 02/15/20 22:43 Sodium Chloride Flush Syringe 10 Ml IV 10 ml PRN PRN Administration LINE FLUSH Vancomycin HCl 125 mg 02/20/20 15:00 02/22/20 05:44 Vancomycin Po PO 02/27/20 06:01 125 mg Q6HR NADER Administration Nutrition/Malnutrition Assess - Dietary Evaluation Nutrition/Malnutrition Findings: Nutrition Notes Start: 02/14/20 09:49 Freq: Status: Active Protocol: Document 02/21/20 10:01 LP (Rec: 02/21/20 10:04 LP [id number]) Nutrition Notes Initial or Follow up Reassessment Current Diagnosis Acute Kidney Injury,Decubitus( Pressure Ulcer),Diabetes, Hypertension,Hyperlipidemia Other Pertinent Diagnosis ischemic bowel with gangrene s /p exp lap, Current Diet CPN at 84ml/hr + Vital 1.2 at 10ml/hr Labs/Tests Reviewed Pertinent Medications Reviewed Height 5 ft 5 in Weight 86 kg [place] Body Weight (kg) 56.81 BMI 31.5 Weight Status Obese Subjective/Other Information CPN day 4 continue. Pt tolerating TF so far. Pt has vas cath placed and plans for HD today. Percent of energy/protein needs met: 50%/89% Burn Absent Trauma Absent Current % PO Negligible Minimum of two criteria No #2 Nutrition Diagnosis Inadequate oral intake Diagnosis Progress(for reassessment Continues documentation) #1 Nutrition Diagnosis Altered GI function As Evidenced by Signs and Symptoms Pt tolerating TF Diagnosis Progress(for reassessment Improved documentation) Is patient on ventilator? Yes Is Patient Ambulatory and/or Out of Bed No REE-([facility]-confined to bed) [phone] Calculation Used for Recommendations [facility] Additional Notes Pro needs 1.2-2g/k-140g/ day Fluid needs 1ml/kcal Nutrition Intervention Change Diet Order: TPN and TF Nutrition Support: CPN at 75ml/hr: 19mEq Mg, , Chloride:Acetate 25:75, MVI, Thiamine Vital 1.2 at 10ml/hr per MD Kcal 725 Protein (gm) 75 Carbohydrates (gm) 125 Fat (gm) 0 Fluid (mL) 1,800 Fiber (gm) 0 Goal #1 Meet at least 75% of energy and protein needs Anticipated Discharge Needs: Unable to identify at this time Follow-Up By: 02/22/20 Additional Comments Labs in AM: BMP
[2020-02-22] MEDS: CEFEPIME/NS 1 GM/100 ML 1 GM/100 ML BAG IV SCH (09:57)
[2020-02-22] MEDS: FAMOTIDINE 20 MG/2 ML INJ IV SCH (09:58)
[2020-02-22] MEDS: INSULIN GLARGINE 100 UNITS/ML SUB-Q SCH ×2 (09:58→21:16)
[2020-02-22] MEDS: HEPARIN/ 0.45% NACL DRIP 25,000 UNIT/500 ML BAG IV SCH (10:50)
--- NOTE | 2020-02-22 11:20 | Progress Note ---
Assessment and Plan - Patient Problems (1) Atrial fibrillation Current Visit: Yes Status: Acute (2) Acute renal failure Current Visit: Yes Status: Acute (3) Acute respiratory failure Current Visit: Yes Status: Acute (4) Anemia Current Visit: Yes Status: Acute (5) Ischemic necrosis of small bowel Current Visit: Yes Status: Acute Subjective Date of service: 02/22/20 Principal diagnosis: Ischemic Bowel Interval history: VENT Objective Vital Signs Temp Pulse Pulse Resp BP Pulse Ox 02/22/20 11:00 115 H 16 150/79 99 02/22/20 10:45 115 H 15 156/81 100 02/22/20 10:30 112 H 17 157/87 99 02/22/20 10:15 113 H 15 162/81 99 02/22/20 10:00 113 H 12 159/77 99 02/22/20 09:45 114 H 16 158/79 99 02/22/20 09:30 113 H 17 148/84 99 02/22/20 09:25 113 H 13 158/79 99 02/22/20 09:15 113 H 19 141/83 99 02/22/20 09:00 114 H 15 170/101 97 02/22/20 08:45 106 H 15 106/67 99 02/22/20 08:30 111 H 16 115/66 99 02/22/20 08:15 112 H 16 117/72 99 02/22/20 08:00 99.0 F 105 H 112 H 16 106/67 99 02/22/20 07:45 111 H 14 153/82 99 02/22/20 07:30 107 H 16 117/71 99 02/22/20 07:15 109 H 17 134/79 99 02/22/20 07:00 113 H 15 126/77 99 02/22/20 06:45 111 H 15 156/72 99 02/22/20 06:30 113 H 18 124/76 99 02/22/20 06:15 113 H 15 124/76 99 02/22/20 06:00 112 H 16 139/83 99 02/22/20 05:45 112 H 20 147/84 99 02/22/20 05:30 112 H 15 143/73 99 02/22/20 05:15 112 H 15 134/79 99 02/22/20 05:00 112 H 16 139/85 99 02/22/20 04:45 113 H 17 160/83 99 02/22/20 04:30 112 H 12 146/85 100 02/22/20 04:18 111 H 146/80 99 02/22/20 04:15 111 H 16 146/80 99 02/22/20 04:00 99.0 F 112 H 17 149/85 99 02/22/20 03:45 111 H 16 142/84 98 02/22/20 03:30 112 H 18 143/82 99 02/22/20 03:15 112 H 17 146/85 99 02/22/20 03:00 111 H 18 114/64 99 02/22/20 02:45 105 H 16 114/64 99 02/22/20 02:30 99 H 16 119/71 100 02/22/20 02:15 107 H 16 107/69 99 02/22/20 02:00 98 H 16 120/60 100 02/22/20 01:45 90 16 119/52 99 02/22/20 01:30 104 H 17 137/77 99 02/22/20 01:15 131 H 14 137/77 100 02/22/20 01:00 110 H 16 146/74 100 02/22/20 00:45 112 H 17 136/85 100 02/22/20 00:30 113 H 20 141/86 99 02/22/20 00:15 112 H 17 141/86 100 02/22/20 00:08 112 H 136/81 99 02/22/20 00:00 99.2 F 112 H 17 136/81 100 02/21/20 23:45 112 H 17 137/85 99 02/21/20 23:30 111 H 15 128/76 100 02/21/20 23:15 111 H 16 128/76 100 02/21/20 23:00 111 H 16 129/77 99 02/21/20 22:45 111 H 16 114/75 100 02/21/20 22:30 112 H 16 109/73 99 02/21/20 22:24 112 H 17 125/79 99 02/21/20 22:15 111 H 16 125/79 100 02/21/20 22:00 111 H 15 120/75 100 02/21/20 21:45 107 H 16 138/82 99 02/21/20 21:30 113 H 13 122/70 99 02/21/20 21:15 103 H 17 127/83 99 02/21/20 21:00 99 H 15 109/66 100 02/21/20 20:45 94 H 17 125/62 100 02/21/20 20:30 103 H 13 109/70 100 02/21/20 20:15 110 H 15 119/75 100 02/21/20 20:00 98.8 F 131 H 14 118/63 100 02/21/20 19:57 116 H 130/96 100 02/21/20 19:45 91 H 17 118/63 100 02/21/20 19:30 108 H 15 129/75 100 02/21/20 19:16 100 H 15 125/75 100 02/21/20 19:00 102 H 15 99 02/21/20 18:45 121 H 15 141/88 99 02/21/20 18:30 103 H 15 137/84 99 02/21/20 18:16 114 H 16 145/81 100 02/21/20 18:00 101 H 17 143/89 100 02/21/20 17:45 106 H 8 L 159/90 99 02/21/20 17:30 106 H 12 150/101 99 02/21/20 17:16 105 H 15 150/101 99 02/21/20 17:00 100 H 17 150/101 99 02/21/20 16:45 99 H 17 150/101 100 02/21/20 16:30 100 H 16 110/81 100 02/21/20 16:15 86 17 110/81 100 02/21/20 16:00 109 H 80 14 134/75 100 02/21/20 15:45 111 H 15 139/86 100 02/21/20 15:30 110 H 15 137/88 100 02/21/20 15:16 107 H 16 145/82 100 02/21/20 15:15 98.6 F 49 L 11 L 145/82 02/21/20 15:11 98 H 99 02/21/20 15:00 101 H 14 91/63 99 02/21/20 14:45 94 H 16 91/63 100 02/21/20 14:30 112 H 10 L 97/70 99 02/21/20 14:16 95 H 14 97/70 99 02/21/20 14:15 52 L 97/70 02/21/20 14:00 84 16 100/67 99 02/21/20 13:50 98.6 F 87 11 L 100/67 99 02/21/20 13:45 98.6 F 107 H 16 111/69 98 02/21/20 13:35 98.4 F 115 H 16 111/69 99 02/21/20 13:30 69 11 L 116/68 99 02/21/20 13:24 69 14 116/68 100 02/21/20 13:22 98.6 F 74 14 174/65 100 02/21/20 13:15 74 14 174/65 100 02/21/20 13:10 65 161/68 02/21/20 13:00 67 12 148/68 100 02/21/20 12:56 98.6 F 02/21/20 12:50 64 14 147/64 100 02/21/20 12:40 68 16 154/67 100 02/21/20 12:30 68 15 154/67 100 02/21/20 12:26 97.7 F 72 17 139/67 100 02/21/20 12:20 80 14 138/76 99 02/21/20 12:16 102 H 12 138/76 99 02/21/20 12:00 65 89 16 133/70 02/21/20 11:56 97.9 F 99 H 15 129/80 99 02/21/20 11:45 105 H 14 139/78 02/21/20 11:41 97.8 F 103 H 14 133/80 99 02/21/20 11:32 103 H 10 L 137/80 100 02/21/20 11:30 110 H 15 130/77 02/21/20 11:20 97.8 F - Physical Examination General: Other (intubated) HEENT: Positive: PERRL Neck: Positive: neck supple, trachea midline. Negative: JVD/HJR Cardiac: Positive: Reg Rate and Rhythm Lungs: Positive: clear to auscultation Neuro: Positive: Weakness, Other (DOESN'T FOLLOW COMM.) Abdomen: Positive: Distended (POST OP) Skin: Positive: Clear Extremities: Present: +1 Edema. Absent: edema - Labs and Meds CBC 02/22/20 Range/Units 03:16 WBC 22.8 H (4.5-11.0) K/mm3 RBC 2.49 L (3.65-5.03) M/mm3 Hgb 7.4 L (10.1-14.3) gm/dl Hct 22.7 L (30.3-42.9) % Plt Count 166 (140-440) K/mm3 Comprehensive Metabolic Panel 02/22/20 Range/Units 03:16 Sodium 135 L (137-145) mmol/L Potassium 3.7 (3.6-5.0) mmol/L Chloride 95.2 L (98-107) mmol/L Carbon Dioxide 22 (22-30) mmol/L BUN 83 H (7-17) mg/dL Creatinine 4.3 H (0.7-1.2) mg/dL Glucose 264 H (65-100) mg/dL Calcium 8.1 L (8.4-10.2) mg/dL
[2020-02-22] MEDS: AMIODARONE 900 MG in DEXTROSE 5% IN WATER 482 ML IV SCH (11:57)
--- NOTE | 2020-02-22 12:09 | Progress Note ---
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 difficile colitis Plan: * Her serum creatinine seems to be leveling off in the mid fives. She is currently nonoliguric. However remains on the ventilator and volume overloaded. Had uneventful hemodialysis yesterday. Approximately 900 cc of urine recorded yesterday. Shall give her additional Lasix today * Plan to dialyze her again tomorrow and remove fluid as tolerated . * Patient received packed RBC transfusion yesterday. Her hemoglobin is 7.4 today. * Continue to wean patient off ventilator. * Acidosis has been corrected * Continue iv abx per ID recs * surgery note reviewed, s/p surgery, OR note reviewed, input appreciated * PRBC transfusion prn per primary * Daily lytes; strict i/os * Avoid nephrotoxins * CT noted, no stones or hydronephrosis * vasopressors prn Subjective Date of service: 02/22/20 Principal diagnosis: Ischemic Bowel Interval history: Patient remains on the ventilator. Currently on 30% FiO2. Sedated. She is currently on amiodarone, Cardizem as well as heparin drip. Uneventful hemodialysis yesterday. Objective - Vital Signs Vital signs: Vital Signs - 12hr 02/22/20 02/22/20 02/22/20 00:08 00:15 00:30 Temperature Pulse Rate 112 H 112 H 113 H Pulse Rate [ From Monitor] Respiratory 17 20 Rate Blood Pressure 136/81 141/86 141/86 O2 Sat by Pulse 99 100 99 Oximetry 02/22/20 02/22/20 02/22/20 00:45 01:00 01:15 Temperature Pulse Rate 112 H 110 H 131 H Pulse Rate [ From Monitor] Respiratory 17 16 14 Rate Blood Pressure 136/85 146/74 137/77 O2 Sat by Pulse 100 100 100 Oximetry 02/22/20 02/22/20 02/22/20 01:30 01:45 02:00 Temperature Pulse Rate 104 H 90 98 H Pulse Rate [ From Monitor] Respiratory 17 16 16 Rate Blood Pressure 137/77 119/52 120/60 O2 Sat by Pulse 99 99 100 Oximetry 02/22/20 02/22/20 02/22/20 02:15 02:30 02:45 Temperature Pulse Rate 107 H 99 H 105 H Pulse Rate [ From Monitor] Respiratory 16 16 16 Rate Blood Pressure 107/69 119/71 114/64 O2 Sat by Pulse 99 100 99 Oximetry 02/22/20 02/22/20 02/22/20 03:00 03:15 03:30 Temperature Pulse Rate 111 H 112 H 112 H Pulse Rate [ From Monitor] Respiratory 18 17 18 Rate Blood Pressure 114/64 146/85 143/82 O2 Sat by Pulse 99 99 99 Oximetry 02/22/20 02/22/20 02/22/20 03:45 04:00 04:15 Temperature 99.0 F Pulse Rate 111 H 112 H 111 H Pulse Rate [ From Monitor] Respiratory 16 17 16 Rate Blood Pressure 142/84 149/85 146/80 O2 Sat by Pulse 98 99 99 Oximetry 02/22/20 02/22/20 02/22/20 04:18 04:30 04:45 Temperature Pulse Rate 111 H 112 H 113 H Pulse Rate [ From Monitor] Respiratory 12 17 Rate Blood Pressure 146/80 146/85 160/83 O2 Sat by Pulse 99 100 99 Oximetry 02/22/20 02/22/20 02/22/20 05:00 05:15 05:30 Temperature Pulse Rate 112 H 112 H 112 H Pulse Rate [ From Monitor] Respiratory 16 15 15 Rate Blood Pressure 139/85 134/79 143/73 O2 Sat by Pulse 99 99 99 Oximetry 02/22/20 02/22/20 02/22/20 05:45 06:00 06:15 Temperature Pulse Rate 112 H 112 H 113 H Pulse Rate [ From Monitor] Respiratory 20 16 15 Rate Blood Pressure 147/84 139/83 124/76 O2 Sat by Pulse 99 99 99 Oximetry 02/22/20 02/22/20 02/22/20 06:30 06:45 07:00 Temperature Pulse Rate 113 H 111 H 113 H Pulse Rate [ From Monitor] Respiratory 18 15 15 Rate Blood Pressure 124/76 156/72 126/77 O2 Sat by Pulse 99 99 99 Oximetry 02/22/20 02/22/20 02/22/20 07:15 07:30 07:45 Temperature Pulse Rate 109 H 107 H 111 H Pulse Rate [ From Monitor] Respiratory 17 16 14 Rate Blood Pressure 134/79 117/71 153/82 O2 Sat by Pulse 99 99 99 Oximetry 02/22/20 02/22/20 02/22/20 08:00 08:15 08:30 Temperature 99.0 F Pulse Rate 105 H 112 H 111 H Pulse Rate [ 112 H From Monitor] Respiratory 16 16 16 Rate Blood Pressure 106/67 117/72 115/66 O2 Sat by Pulse 99 99 99 Oximetry 02/22/20 02/22/20 02/22/20 08:45 09:00 09:15 Temperature Pulse Rate 106 H 114 H 113 H Pulse Rate [ From Monitor] Respiratory 15 15 19 Rate Blood Pressure 106/67 170/101 141/83 O2 Sat by Pulse 99 97 99 Oximetry 02/22/20 02/22/20 02/22/20 09:25 09:30 09:45 Temperature Pulse Rate 113 H 113 H 114 H Pulse Rate [ From Monitor] Respiratory 13 17 16 Rate Blood Pressure 158/79 148/84 158/79 O2 Sat by Pulse 99 99 99 Oximetry 02/22/20 02/22/20 02/22/20 10:00 10:15 10:30 Temperature Pulse Rate 113 H 113 H 112 H Pulse Rate [ From Monitor] Respiratory 12 15 17 Rate Blood Pressure 159/77 162/81 157/87 O2 Sat by Pulse 99 99 99 Oximetry 02/22/20 02/22/20 02/22/20 10:45 11:00 11:48 Temperature Pulse Rate 115 H 115 H 114 H Pulse Rate [ From Monitor] Respiratory 15 16 11 L Rate Blood Pressure 156/81 150/79 135/79 O2 Sat by Pulse 100 99 99 Oximetry - General Appearance General appearance: well-developed, well-nourished, appears stated age, intubated EENT: mucous membranes moist Neck: no thyromegaly, other (Right IJ Vas-Cath in place) Respiratory: Present: Clear to Ascultation Cardiology: regular Gastrointestinal: normoactive bowel sounds, other (Midline incision noted. Wound VAC in place.) - Lab 02/22/20 03:16 02/22/20 03:16 Most recent lab results ABG pH 7.318 pH Units (7.350-7.450) L 02/21/20 04:16 ABG pCO2 42.7 mm Hg 02/21/20 04:16 ABG pO2 100.0 mm Hg (80.0-90.0) H 02/21/20 04:16 ABG HCO3 21.4 mmol/L (20.0-26.0) 02/21/20 04:16 ABG O2 Saturation 97.2 % (95.0-99.0) 02/21/20 04:16 Calcium 8.1 mg/dL (8.4-10.2) L 02/22/20 03:16 Phosphorus 4.60 mg/dL (2.5-4.5) H 02/22/20 03:16 Magnesium 2.00 mg/dL (1.7-2.3) 02/22/20 03:16 Urine Creatinine 35.3 mg/dL (0.1-20.0) H 02/12/20 Unknown Urine Total Protein 796 mg/dL (5-11.8) H 02/12/20 Unknown Medications & Allergies - Medications Allergies/Adverse Reactions: Allergies clindamycin Allergy (Verified 02/11/20 14:52) Hives Home Medications: Home Medications Medication Instructions Recorded Confirmed Last Taken Type Doxazosin [Cardura] 4 mg PO QDAY 02/11/20 02/11/20 02/10/20 History Hydralazine HCl 50 mg PO DAILY 02/11/20 02/11/20 02/10/20 History Metoprolol 25 mg PO DAILY 02/11/20 02/11/20 02/10/20 History Sertraline [Zoloft] 50 mg PO QDAY 02/11/20 02/11/20 02/10/20 History amLODIPine [Norvasc] 10 mg PO DAILY 02/11/20 02/11/20 02/10/20 History glipiZIDE 10 mg PO BID 02/11/20 02/11/20 02/10/20 History Active Medications: Generic Name Dose Route Start Last Admin Trade Name Freq PRN Reason Stop Dose Admin Acetaminophen 650 mg 02/11/20 19:01 02/12/20 17:00 Tylenol PO 650 mg Q4H PRN Administration Pain MILD(1-3)/Fever >100.5/ADAMS Lipase/Protease/Amylase 1 each 02/20/20 10:[address] 10,500 Unit FEEDTUBE PRN PRN For Clogged Feeding Tube Dextrose 50 ml 02/19/20 14:58 D50w (25gm) Syringe IV Q30MIN PRN Hypoglycemia Protocol Famotidine 20 mg 02/17/20 10:00 02/22/20 09:58 Pepcid IV 20 mg DAILY NADER Administration Fentanyl 50 mcg 02/19/20 15:30 02/19/20 15:29 Sublimaze IV 50 mcg Q10MIN PRN Administration ANALGESIA Hydromorphone HCl 1 mg 02/14/20 13:00 02/19/20 12:10 Dilaudid IV 1 mg Q3H PRN Administration Pain , Severe (7-10) Hydrophilic Ointment 1 applic 02/13/20 19:41 Vaseline Lip Therapy TP Q2HR PRN Dry Lips Metronidazole 500 mg in 100 mls @ 100 mls/hr 02/12/20 15:40 02/22/20 05:44 Flagyl 500 Mg/100 Ml IV 02/22/20 15:39 100 mls/hr Q8HR NADER Administration Heparin Sodium/Sodium Chloride 25,000 unit in 500 mls @ 20 mls/hr 02/13/20 20:00 02/22/20 10:50 Heparin/ 0.45% Nacl-25,000 Unit/500 Ml IV 1,150 units/hr TITR NADER 23 mls/hr Administration Protocol 1,000 UNITS/HR Diltiazem HCl 100 mg in 100 mls @ 2.5 mls/hr 02/16/20 12:19 02/21/20 06:44 Cardizem/D5w 100mg/100ml IV 2.5 mg/hr TITR NADER 2.5 mls/hr Administration 2.5 MG/HR Amiodarone HCl 900 mg/ 500 mls @ 33.333 mls/hr 02/19/20 11:00 02/22/20 11:57 Dextrose IV 0.5 mg/min DIRECT NADER 16.667 mls/hr Administration Protocol 1 MG/MIN Fentanyl Citrate 2,000 mcg in 100 mls @ 4.05 mls/hr 02/19/20 16:00 02/21/20 23:20 Fentanyl Drip Premix IV 1 mcg/kg/hr TITR NADER 4.05 mls/hr Administration Protocol 1 MCG/KG/HR Furosemide 100 mg/ Sodium 60 mls @ 240 mls/hr 02/20/20 15:00 02/20/20 17:28 Chloride IV Infused ONCE NADER Infusion Sodium Chloride 100 mls @ 999 mls/hr 02/21/20 09:24 Nacl 0.9% IV FABIOLA PRN Hypotension Amino Acids/Electrolytes/Dextrose 1,800 mls @ 75 mls/hr 02/21/20 20:00 02/21/20 20:52 Tpn Adult IV 02/22/20 19:59 75 mls/hr DAILY@2000 NADER Administration Protocol Insulin Glargine 20 units 02/21/20 22:00 02/22/20 09:58 Lantus SUB-Q 20 units BID NADER Administration Insulin Human Lispro 0 unit 02/19/20 18:00 02/22/20 11:58 Humalog SUB-Q 10 unit Q6HR NADER Administration Protocol Labetalol HCl 20 mg 02/13/20 18:00 02/20/20 12:29 Labetalol IV 20 mg Q4H PRN Administration SBP >150 Metoprolol Tartrate 2.5 mg 02/13/20 18:00 02/18/20 04:41 Metoprolol IV 2.5 mg Q6HR PRN Administration HR >130 Multi-Ingred Cream/Lotion/Oil/Oint 1 applic 02/13/20 19:41 Artificial Tears Ophth Oint OU Q4HR PRN Dry Eye(s) Simple Syrup 15 ml 02/20/20 10:28 Simple Syrup FEEDTUBE PRN PRN Hypoglycemia Simple Syrup 30 ml 02/20/20 10:28 Simple Syrup FEEDTUBE PRN PRN Hypoglycemia Sodium Bicarbonate 325 mg 02/20/20 10:28 Sodium Bicarbonate FEEDTUBE PRN PRN For Clogged Feeding Tube Sodium Chloride 10 ml 02/11/20 22:00 02/22/20 09:57 Sodium Chloride Flush Syringe 10 Ml IV 10 ml BID NADER Administration Sodium Chloride 10 ml 02/11/20 19:01 02/15/20 22:43 Sodium Chloride Flush Syringe 10 Ml IV 10 ml PRN PRN Administration LINE FLUSH Vancomycin HCl 125 mg 02/20/20 15:00 02/22/20 11:57 Vancomycin Po PO 02/27/20 06:01 125 mg Q6HR NADER Administration
[2020-02-22] MEDS ORDERED: SODIUM CHLORIDE 0.9% 100 ML IV PRN (12:30)
[2020-02-22] MEDS ORDERED: FUROSEMIDE 100 MG/10 ML INJ IV SCH (13:00)
--- NOTE | 2020-02-22 13:16 | Progress Note ---
Assessment and Plan Cultures: Blood culture 02/11/2020 no growth today Sputum culture 02/12/19 no growth today Sputum culture 02/13/19 usual resp sulaiman Blood culture 02/19/2020 no growth Cdiff toxin PCR Positive urine culture 02/19/2020 10-100K mult A/P: 74-year-old female past medical history hypertension, diabetes, mitral valve prolapse, hyperlipidemia admitted with acute sepsis and abdominal pain #Acute sepsis: likely due to ischemic bowel. Leukocytosis up today likely reactive due to severe anemia, baseline leukocytosis from UTI rather than C diff. 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 S/p exploratory laparotomy, enterocolonic anastamosis, closure of abdomen, application of wound vac on 02/15 #Respiratory failure: on BIPAP today #Presumed infected renal cyst #Diabetes: Tight glycemic control for best outcomes #Diarrhea: resolved prior to presentation, doubt C diff, likely from ischemic bowel. #LITZY on CKD: Renally adjust antibiotics, worsening #Anemia/thrombocytopenia: from sepsis #Diarrhea? Cdiff toxin PCR Positive, can be colinization rather than patogenic Cdiff, should have a Cdiff EIA not available unfortunately. #UTI: corcoran replaced for I+O. #DVT on heparin gtt #RVR Afib on cardizem and amiodarone Recs: -eval for severe anemia on heparin gtt -continue vancomycin 125 mg QID day 3 of 7 - wbc already improved so I believe this +Cdiff PCR may be more colonizer (carrier) than pathogenic -continue cefepime renally adjusted day 7 of 8 -Continue metronidazole day 7 of 8 -stop fluconazole day 4 of 4 -monitor leukocytosis, platelets -remove corcoran when possible Will follow. Jo-Ann Mccray MD Infectious Diseases [facility] M [phone] O [phone] Subjective Date of service: 02/22/20 Principal diagnosis: Ischemic Bowel Interval history: Remains intubated sedated, tacycardic on monitor, no fever on cardizem gtt, amio gtt, heparin gtt and TPN currently on SBT Objective - Exam Narrative Exam: Constitutional: alert intubated on SBT Head, Ears, Nose: Normocephalic, atraumatic. Eyes: Conjunctivae/corneas clear. No icterus. No ptosis. Neck: Supple, no meningeal signs Oral: +ETT Cardiovascular: tachycardic Respiratory: Good air entry, clear to auscultation bilaterally GI: Soft, midline wound with VAC. Musculoskeletal:yareli arm edema Skin: No rash or abscess Hem/Lymphatic: No palpable cervical or supraclavicular nodes. No lymphangitis Psych: no agitated Neurological: alert left PICC rectal tube with black stool corcoran - Constitutional Vitals: Vital Signs Temp Pulse Resp BP Pulse Ox 99.0 F 114 H 11 L 135/79 99 02/22/20 08:00 02/22/20 11:48 02/22/20 11:48 02/22/20 11:48 02/22/20 11:48 Temperature -Last 24 Hours Temperature 99.0 F Temperature 99.0 F Temperature 99.2 F Temperature 98.8 F Temperature 98.6 F Temperature 98.6 F Temperature 98.6 F Temperature 98.6 F Temperature 98.4 F Temperature 98.6 F - Labs CBC & Chem 7: 02/22/20 03:16 02/22/20 03:16 Labs: Abnormal lab results 02/21/20 02/21/20 02/21/20 Range/Units 06:00 17:40 23:37 WBC (4.5-11.0) K/mm3 RBC (3.65-5.03) M/mm3 Hgb (10.1-14.3) gm/dl Hct (30.3-42.9) % RDW (13.2-15.2) % Seg Neuts % (Manual) (40.0-70.0) % Lymphocytes % (Manual) (13.4-35.0) % Monocytes % (Manual) (0.0-7.3) % Nucleated RBC % (0.0-0.9) % Seg Neutrophils # Man (1.8-7.7) K/mm3 Monocytes # (Manual) (0.0-0.8) K/mm3 Eosinophils # (Manual) (0.0-0.4) K/mm3 Heparin Anti-Xa Level (0.3-0.7) U.I./ml Sodium (137-145) mmol/L Chloride (98-107) mmol/L BUN (7-17) mg/dL Creatinine (0.7-1.2) mg/dL Glucose (65-100) mg/dL POC Glucose 387 H 297 H (70-105) Calcium (8.4-10.2) mg/dL Phosphorus (2.5-4.5) mg/dL Crossmatch See Detail 02/22/20 02/22/20 02/22/20 Range/Units 03:16 03:16 03:16 WBC 22.8 H (4.5-11.0) K/mm3 RBC 2.49 L (3.65-5.03) M/mm3 Hgb 7.4 L (10.1-14.3) gm/dl Hct 22.7 L (30.3-42.9) % RDW 15.6 H (13.2-15.2) % Seg Neuts % (Manual) 74.0 H (40.0-70.0) % Lymphocytes % (Manual) 8.5 L (13.4-35.0) % Monocytes % (Manual) 13.5 H (0.0-7.3) % Nucleated RBC % 2.5 H (0.0-0.9) % Seg Neutrophils # Man 16.9 H (1.8-7.7) K/mm3 Monocytes # (Manual) 3.1 H (0.0-0.8) K/mm3 Eosinophils # (Manual) 0.5 H (0.0-0.4) K/mm3 Heparin Anti-Xa Level 0.27 L (0.3-0.7) U.I./ml Sodium 135 L (137-145) mmol/L Chloride 95.2 L (98-107) mmol/L BUN 83 H (7-17) mg/dL Creatinine 4.3 H (0.7-1.2) mg/dL Glucose 264 H (65-100) mg/dL POC Glucose (70-105) Calcium 8.1 L (8.4-10.2) mg/dL Phosphorus 4.60 H (2.5-4.5) mg/dL Crossmatch 02/22/20 02/22/20 Range/Units 05:16 11:50 WBC (4.5-11.0) K/mm3 RBC (3.65-5.03) M/mm3 Hgb (10.1-14.3) gm/dl Hct (30.3-42.9) % RDW (13.2-15.2) % Seg Neuts % (Manual) (40.0-70.0) % Lymphocytes % (Manual) (13.4-35.0) % Monocytes % (Manual) (0.0-7.3) % Nucleated RBC % (0.0-0.9) % Seg Neutrophils # Man (1.8-7.7) K/mm3 Monocytes # (Manual) (0.0-0.8) K/mm3 Eosinophils # (Manual) (0.0-0.4) K/mm3 Heparin Anti-Xa Level (0.3-0.7) U.I./ml Sodium (137-145) mmol/L Chloride (98-107) mmol/L BUN (7-17) mg/dL Creatinine (0.7-1.2) mg/dL Glucose (65-100) mg/dL POC Glucose 321 H 351 H (70-105) Calcium (8.4-10.2) mg/dL Phosphorus (2.5-4.5) mg/dL Crossmatch
[2020-02-22] MEDS ORDERED: SIMPLE SYRUP 15 ML FEEDTUBE PRN ×2 (13:45)
[2020-02-22] MEDS ORDERED: LIPASE 10,500/PROTEASE 25,000/AMYLASE 43,750 (UNITS) DR CAP FEEDTUBE PRN (13:45)
[2020-02-22] MEDS ORDERED: SODIUM BICARBONATE 325 MG TAB FEEDTUBE PRN (13:45)
--- NOTE | 2020-02-22 13:51 | Progress Note ---
Assessment and Plan - Patient Problems (1) Ischemic necrosis of small bowel Current Visit: Yes Status: Acute Plan to address problem: Assessment and Plan 74-year-old female status post 1. Exploratory laparotomy, enterocolonic anastamosis, closure of abdomen, application of wound vac, POD 6 2. Exploratory laparotomy, extensive small bowel resection, partial colon resection, placement of abthera vac, placement of right radial arterial line, 02/13/20 1. bowel ischemia with gangrene 2. sepsis 3. LITZY 4. Afib with RVR 5. Tobacco dependence 6. Venous duplex - L superficial femoral vein nonocclusive thrombus 7. Cdiff + CXR 02/20/20 - no residual disease CT C/A/P 02/19/20 - post operative changes of right colon. Anastamosis is intact. Generalized edema of abdominal wall. Pt currently hemodynamically stable. Plan: 1. neuro - Continue as needed pain control. Pt still with AMS. 2. CV - cardiology on board for Afib. H/H 7.4 - transfuse prbc as needed. These recurrent drops are probably a reflection of generalized oozing from multiple sites as a result of the anticoagulation. Would consider holding the anticoagulation if the Hgb continues to drop repeatedly. 3. Resp - vent management per ICU team, extubate when criteria met. 4. GI - Cont TTF via NGT, will try advancing to 15cc/hr. Staff has been holding TF if residuals 150cc. Instructed them to not hold unless >250cc. Pt continues to have bowel function - diarrhea expected, Continue incisional wound VAC - will monitor drainage. GI ppx - protonix IV 5. - continue corcoran catheter for strict I/Os. Nephrology on board. Monitor fur sorter. Metabolic acidosis improved on todays ABG. 6. ID - continue abx per ID. leukocytosis us again today. No change in abdominal status. Source possibly UTI. Could also be clot related. UCx/BCx - neg. 7. Endo - strict glucose control 8. Musc - turning q2 as per protocol, skin breakdown precautions, SCDs 9. FEN - Cont TTF, Continue TPN until pt tolerating TF at goal, replace lytes as needed. Apple Turner notes reviewed and recs appreciated Thank you, please call with questions. Subjective Date of service: 02/22/20 Patient Reports: Positive: other (residuals have not been greater than 150cc) Objective Vital Signs - 12hr 02/22/20 02/22/20 02/22/20 02:00 02:15 02:30 Temperature Pulse Rate 98 H 107 H 99 H Pulse Rate [ From Monitor] Respiratory 16 16 16 Rate Blood Pressure 120/60 107/69 119/71 O2 Sat by Pulse 100 99 100 Oximetry 02/22/20 02/22/20 02/22/20 02:45 03:00 03:15 Temperature Pulse Rate 105 H 111 H 112 H Pulse Rate [ From Monitor] Respiratory 16 18 17 Rate Blood Pressure 114/64 114/64 146/85 O2 Sat by Pulse 99 99 99 Oximetry 02/22/20 02/22/20 02/22/20 03:30 03:45 04:00 Temperature 99.0 F Pulse Rate 112 H 111 H 112 H Pulse Rate [ From Monitor] Respiratory 18 16 17 Rate Blood Pressure 143/82 142/84 149/85 O2 Sat by Pulse 99 98 99 Oximetry 02/22/20 02/22/20 02/22/20 04:15 04:18 04:30 Temperature Pulse Rate 111 H 111 H 112 H Pulse Rate [ From Monitor] Respiratory 16 12 Rate Blood Pressure 146/80 146/80 146/85 O2 Sat by Pulse 99 99 100 Oximetry 02/22/20 02/22/20 02/22/20 04:45 05:00 05:15 Temperature Pulse Rate 113 H 112 H 112 H Pulse Rate [ From Monitor] Respiratory 17 16 15 Rate Blood Pressure 160/83 139/85 134/79 O2 Sat by Pulse 99 99 99 Oximetry 02/22/20 02/22/20 02/22/20 05:30 05:45 06:00 Temperature Pulse Rate 112 H 112 H 112 H Pulse Rate [ From Monitor] Respiratory 15 20 16 Rate Blood Pressure 143/73 147/84 139/83 O2 Sat by Pulse 99 99 99 Oximetry 02/22/20 02/22/20 02/22/20 06:15 06:30 06:45 Temperature Pulse Rate 113 H 113 H 111 H Pulse Rate [ From Monitor] Respiratory 15 18 15 Rate Blood Pressure 124/76 124/76 156/72 O2 Sat by Pulse 99 99 99 Oximetry 02/22/20 02/22/20 02/22/20 07:00 07:15 07:30 Temperature Pulse Rate 113 H 109 H 107 H Pulse Rate [ From Monitor] Respiratory 15 17 16 Rate Blood Pressure 126/77 134/79 117/71 O2 Sat by Pulse 99 99 99 Oximetry 02/22/20 02/22/20 02/22/20 07:45 08:00 08:15 Temperature 99.0 F Pulse Rate 111 H 105 H 112 H Pulse Rate [ 112 H From Monitor] Respiratory 14 16 16 Rate Blood Pressure 153/82 106/67 117/72 O2 Sat by Pulse 99 99 99 Oximetry 02/22/20 02/22/20 02/22/20 08:30 08:45 09:00 Temperature Pulse Rate 111 H 106 H 114 H Pulse Rate [ From Monitor] Respiratory 16 15 15 Rate Blood Pressure 115/66 106/67 170/101 O2 Sat by Pulse 99 99 97 Oximetry 02/22/20 02/22/20 02/22/20 09:15 09:25 09:30 Temperature Pulse Rate 113 H 113 H 113 H Pulse Rate [ From Monitor] Respiratory 19 13 17 Rate Blood Pressure 141/83 158/79 148/84 O2 Sat by Pulse 99 99 99 Oximetry 02/22/20 02/22/20 02/22/20 09:45 10:00 10:15 Temperature Pulse Rate 114 H 113 H 113 H Pulse Rate [ From Monitor] Respiratory 16 12 15 Rate Blood Pressure 158/79 159/77 162/81 O2 Sat by Pulse 99 99 99 Oximetry 02/22/20 02/22/20 02/22/20 10:30 10:45 11:00 Temperature Pulse Rate 112 H 115 H 115 H Pulse Rate [ From Monitor] Respiratory 17 15 16 Rate Blood Pressure 157/87 156/81 150/79 O2 Sat by Pulse 99 100 99 Oximetry 02/22/20 02/22/20 02/22/20 11:15 11:30 11:45 Temperature Pulse Rate 115 H 115 H 114 H Pulse Rate [ From Monitor] Respiratory 13 16 14 Rate Blood Pressure 154/76 135/79 140/81 O2 Sat by Pulse 99 99 99 Oximetry 02/22/20 02/22/20 02/22/20 11:48 12:00 12:15 Temperature 98.6 F Pulse Rate 114 H 113 H 115 H Pulse Rate [ 113 H From Monitor] Respiratory 11 L 14 12 Rate Blood Pressure 135/79 149/88 154/85 O2 Sat by Pulse 99 99 99 Oximetry 02/22/20 02/22/20 02/22/20 12:30 12:45 13:00 Temperature Pulse Rate 117 H 117 H 117 H Pulse Rate [ From Monitor] Respiratory 12 11 L 14 Rate Blood Pressure 159/78 151/83 167/85 O2 Sat by Pulse 99 99 99 Oximetry 02/22/20 13:15 Temperature Pulse Rate 116 H Pulse Rate [ From Monitor] Respiratory 12 Rate Blood Pressure 154/84 O2 Sat by Pulse 99 Oximetry - General physical appearance no distress, no pain, other (minimally responsive) - Respiratory normal expansion, normal respiratory effort - Abdomen soft, not tender, not distended, not guarding, not rigid, other (wound vac appearance unchanged. Small amount of old blood at inferior aspect - no change) - Rectum other (rectal bag with small amount of dark contents) - Labs 02/22/20 03:16 02/22/20 03:16 Diabetes panel 02/22/20 Range/Units 03:16 Sodium 135 L (137-145) mmol/L Potassium 3.7 (3.6-5.0) mmol/L Chloride 95.2 L (98-107) mmol/L Carbon Dioxide 22 (22-30) mmol/L BUN 83 H (7-17) mg/dL Creatinine 4.3 H (0.7-1.2) mg/dL Glucose 264 H (65-100) mg/dL Calcium 8.1 L (8.4-10.2) mg/dL Calcium panel 02/22/20 Range/Units 03:16 Calcium 8.1 L (8.4-10.2) mg/dL Phosphorus 4.60 H (2.5-4.5) mg/dL Pituitary panel 02/22/20 Range/Units 03:16 Sodium 135 L (137-145) mmol/L Potassium 3.7 (3.6-5.0) mmol/L Chloride 95.2 L (98-107) mmol/L Carbon Dioxide 22 (22-30) mmol/L BUN 83 H (7-17) mg/dL Creatinine 4.3 H (0.7-1.2) mg/dL Glucose 264 H (65-100) mg/dL Calcium 8.1 L (8.4-10.2) mg/dL Adrenal panel 02/22/20 Range/Units 03:16 Sodium 135 L (137-145) mmol/L Potassium 3.7 (3.6-5.0) mmol/L Chloride 95.2 L (98-107) mmol/L Carbon Dioxide 22 (22-30) mmol/L BUN 83 H (7-17) mg/dL Creatinine 4.3 H (0.7-1.2) mg/dL Glucose 264 H (65-100) mg/dL Calcium 8.1 L (8.4-10.2) mg/dL
[2020-02-22] MEDS ORDERED: FUROSEMIDE 100 MG in SODIUM CHLORIDE 0.9% 50 ML IV SCH (15:00)
[2020-02-22] MEDS: dilTIAZem/D5W 100 MG/100 ML BAG IV SCH (16:35)
[2020-02-22] MEDS ORDERED: TOTAL PARENTERAL NUTRITION 1,800 ML IV SCH (20:00)
[2020-02-22] MEDS: fentaNYL DRIP Premix 2,000 MCG/100 ML BAG IV SCH (22:24)
[2020-02-23] MEDS: INSULIN LISPRO 100 UNIT/ML SUB-Q SCH ×6 (00:43→23:13)
[2020-02-23] MEDS: VANCOMYCIN 250 MG/10 ML ORAL LIQD PO SCH ×5 (01:30→23:12)
[2020-02-23 03:05] LABS: Mean Corpuscular HGB Conc 33 % (30-34); Mean Corpuscular Volume 93 fl (79-97); Platelet Count 165 K/mm3 (140-440); Red Blood Count 1.86 M/mm3 (3.65-5.03)
[2020-02-23 03:16] LABS: Hematocrit 17.3 % (30.3-42.9); Hemoglobin 5.7 gm/dl (10.1-14.3)
[2020-02-23 03:43] LABS: Calcium 8.4 mg/dL (8.4-10.2)
--- NOTE | 2020-02-23 03:47 | Event Note ---
Date: 02/23/20 RN called re: Hbg 5.7 this morning. 2 units of PRBC to be transfused and hold heparin gtt per Dr. Romero given antiXa is therapeutic at this time. Ordered post transfusion CBC.
[2020-02-23] MEDS ORDERED: SODIUM CHLORIDE 0.9% 500 ML 500 ML IV ONE (03:48)
[2020-02-23 05:50] LABS: Anisocytosis 1+; Band Neutrophils # (Manual) 0.6 K/mm3; Basophils % (Manual) 0 % (0.0-1.8); Eosinophils % (Manual) 0.5 % (0.0-4.3); Platelet Estimate Consistent w Auto; Total Cells Counted 200
--- NOTE | 2020-02-23 08:37 | Progress Note ---
Assessment and Plan 74 y/o female with abdominal pain, hypotension, now hypertensive with tachycardia and pain, worrisome for SBO and inflammation in colon from diverticula with worsening renal function. 02/23/2020: HD today. Will hold on weaning sedation given HD happening and likely will be to weak for PSV. Remains on minimal vent support. Transfusion today, of 2 units of PRBC's. Heparin on hold will need to recheck levels today. Spoke with pharm who will help with insulin therapy to better level of sugars. Abx therapy per ID. Flagyl and Cefepime stopped yesterday. Guarded prognosis. Will continue to follow. 02/20/2020: Positive VTE but already on anticoagulation for Afib. HgB is 7. Not hypotensive. Does respond to lasix. Will discuss with renal but my personal preference would be to hold until less than 7 for transfusion. ID on board and placed on antifungal yesterday. Improvement in white count. Spoke with RT who will attempt PSV again today. If patient fails again today, will speak with renal about more volume removal. May need HD briefly. Surgery also starting trickle feeds today. Spoke with Pharm about increasing lantus given hyperglycemia. C. Diff PCR came back positive today. 02/19/2020: More awake today but failed PSV secondary to tachypnea. Makes sense given degree of acidosis. Await renal to eval today. Wonder if more lasix will be given or if she will need HD. Only on 30% with good sats, but compensating for metabolic acidosis which is why she failed PSV. Spoke with Granddaughter over the phone, renal please call as she would like an update on renal function and plans. Continue pain control with PRN therapy but no further continuous sedation. 02/18/2020: More awake but failing PSV trials. Spoke with renal and they did not request corcoran out either. Will replace and give lasix 80mg IV. Spoke with Granddaughter over the phone who is a nurse. Will attempt PSV later this afternoon. If passes, will likely extubate in the am. If not , will give an additional dose of lasix tonight. 02/17/2020: Start to wean sedation today with hopes of extubation. Pain control. IVF's per renal. Follow up any surgery recs. ID seen this am, reviewed their note and plan to treat for 7 days of abx, currently on day 2. 02/16/2020: Picc line placed yesterday. Going to OR today, plan around 1330. If able to close, could consider starting to wean as early as tomorrow but will touch base with surgery first. Patient HR in the 50's on drip so cards decreased. Discussed on rounds, but I asked nursing if any further issues to just stop the drip. Prognosis remains guarded. Trigylcerides not checked so will order stat. 02/15/2020: No new recs for today. Happy with current clinical state in regards to sedation, ventilation and oxygenation. Appreciate surgery and nephro help. follow up any new recs from them. Agree with picc line, will get tomorrow as I believe they (picc team) are not available on Sunday. Will check triglyceride level in the am. 1. Continue deep sedation and pain control. No plans on weaning or extubation until abdominal issues are done. 2. Continue corcoran 3. Follow up surgery recs. Greatly appreciate them and their help. Plan for return to OR on Sunday. 4. IV abx, ID following. 5. Cardiology has elected for dilt drip. Suggest titrating. Gave nurse parameters. 6. Follow up renal rec Guarded prognosis. CCT 31 minutes. Subjective Date of service: 02/23/20 Principal diagnosis: Ischemic Bowel Interval history: No acute events. HD started over the weekend and has been tolerating. plans to do again today. Blood sugars remain elevated. Objective Vital Signs - 12hr 02/22/20 02/22/20 02/22/20 21:00 21:30 22:00 Temperature Pulse Rate 74 86 89 Respiratory 14 16 15 Rate Blood Pressure 119/55 134/81 147/75 O2 Sat by Pulse 100 100 100 Oximetry 02/22/20 02/22/20 02/22/20 22:30 22:59 23:00 Temperature Pulse Rate 91 H 95 H 85 Respiratory 17 14 16 Rate Blood Pressure 152/85 143/83 152/83 O2 Sat by Pulse 100 100 100 Oximetry 02/22/20 02/22/20 02/23/20 23:06 23:30 00:00 Temperature 98.3 F Pulse Rate 79 86 85 Respiratory 16 17 17 Rate Blood Pressure 134/57 147/87 152/89 O2 Sat by Pulse 100 100 100 Oximetry 02/23/20 02/23/20 02/23/20 00:30 00:45 01:00 Temperature Pulse Rate 95 H 85 96 H Respiratory 14 2 L 12 Rate Blood Pressure 132/67 152/83 146/101 O2 Sat by Pulse 100 100 100 Oximetry 02/23/20 02/23/20 02/23/20 01:30 01:45 02:00 Temperature Pulse Rate 92 H 99 H 76 Respiratory 15 11 L 15 Rate Blood Pressure 144/79 143/73 149/71 O2 Sat by Pulse 100 100 100 Oximetry 02/23/20 02/23/20 02/23/20 02:15 02:30 02:45 Temperature Pulse Rate 80 78 88 Respiratory 16 16 12 Rate Blood Pressure 120/60 112/63 127/71 O2 Sat by Pulse 100 100 100 Oximetry 02/23/20 02/23/20 02/23/20 03:00 03:15 03:30 Temperature Pulse Rate 105 H 102 H 99 H Respiratory 12 13 15 Rate Blood Pressure 127/71 125/84 121/76 O2 Sat by Pulse 100 99 100 Oximetry 02/23/20 02/23/20 02/23/20 03:45 04:00 04:16 Temperature 99.1 F Pulse Rate 86 93 H 109 H Respiratory 14 18 15 Rate Blood Pressure 127/59 127/59 154/73 O2 Sat by Pulse 100 100 100 Oximetry 02/23/20 02/23/20 02/23/20 04:30 04:45 04:55 Temperature 99.1 F Pulse Rate 107 H 96 H 97 H Respiratory 16 14 16 Rate Blood Pressure 154/73 151/86 154/85 O2 Sat by Pulse 99 100 100 Oximetry 02/23/20 02/23/20 02/23/20 05:00 05:16 05:25 Temperature 98.8 F Pulse Rate 111 H 117 H 103 H Respiratory 18 14 16 Rate Blood Pressure 157/78 161/88 169/76 O2 Sat by Pulse 100 100 100 Oximetry 02/23/20 02/23/20 02/23/20 05:30 05:46 05:55 Temperature 99 F Pulse Rate 108 H 94 H 94 H Respiratory 17 16 16 Rate Blood Pressure 169/76 134/68 136/70 O2 Sat by Pulse 100 100 100 Oximetry 02/23/20 02/23/20 02/23/20 06:00 06:15 06:25 Temperature 99 F Pulse Rate 96 H 113 H 97 H Respiratory 16 15 16 Rate Blood Pressure 136/70 154/97 159/78 O2 Sat by Pulse 100 99 100 Oximetry 02/23/20 02/23/20 02/23/20 06:30 06:37 06:54 Temperature 99 F 98.5 F Pulse Rate 98 H 87 Respiratory 14 16 Rate Blood Pressure 159/78 151/75 O2 Sat by Pulse 100 100 Oximetry 02/23/20 02/23/20 02/23/20 07:00 08:00 08:06 Temperature 98.6 F Pulse Rate 89 94 H Respiratory 16 Rate Blood Pressure 151/75 209/96 O2 Sat by Pulse 100 100 Oximetry 02/23/20 08:17 Temperature Pulse Rate 86 Respiratory Rate Blood Pressure 190/90 O2 Sat by Pulse Oximetry Constitutional: no acute distress, other (on vent intubated and sedated) Eyes: non-icteric ENT: other (orally intubated ) Effort: normal Ascultation: Bilateral: clear Percussion: Bilateral: not dull Cardiovascular: irregular rhythm (but rate controlled) Gastrointestinal: other (post surgical changes) Integumentary: normal Extremities: edema Neurologic: unable to assess (on vent) CBC and BMP: 02/23/20 02:55 02/23/20 02:55 ABG, PT/INR, D-dimer: ABG ABG pH 7.318 pH Units (7.350-7.450) L 02/21/20 04:16 ABG pCO2 42.7 mm Hg 02/21/20 04:16 ABG pO2 100.0 mm Hg (80.0-90.0) H 02/21/20 04:16 ABG O2 Saturation 97.2 % (95.0-99.0) 02/21/20 04:16 PT/INR, D-dimer PT 16.9 Sec. (12.2-14.9) H 02/13/20 20:10 INR 1.41 (0.87-1.13) H 02/13/20 20:10 Abnormal lab findings: Abnormal Labs 02/11/20 02/11/20 02/11/20 15:27 15:27 15:27 WBC 22.5 H RBC Hgb Hct MCHC RDW Plt Count Seg Neuts % (Manual) 90.0 H Lymphocytes % (Manual) 4.0 L Monocytes % (Manual) Nucleated RBC % Seg Neutrophils # Man 20.3 H Lymphocytes # (Manual) 0.9 L Monocytes # (Manual) 1.1 H Eosinophils # (Manual) PT INR APTT 23.3 L Heparin Anti-Xa Level ABG pH ABG pO2 ABG HCO3 ABG O2 Saturation ABG Base Excess ABG Hemoglobin Oxyhemoglobin Sodium 132 L Potassium Chloride 96.0 L Carbon Dioxide 16 L BUN 59 H Creatinine 3.0 H Glucose 487 H POC Glucose Calcium Phosphorus Magnesium Alkaline Phosphatase 142 H Albumin Triglycerides Lipase 86 H Urine WBC (Auto) Urine Creatinine Urine Total Protein Crossmatch 02/12/20 02/12/20 02/12/20 04:58 04:58 Unknown WBC 30.0 H RBC Hgb Hct MCHC RDW Plt Count Seg Neuts % (Manual) 96.0 H Lymphocytes % (Manual) 1.0 L Monocytes % (Manual) Nucleated RBC % Seg Neutrophils # Man 28.8 H Lymphocytes # (Manual) 0.3 L Monocytes # (Manual) 0.9 H Eosinophils # (Manual) PT INR APTT Heparin Anti-Xa Level ABG pH ABG pO2 ABG HCO3 ABG O2 Saturation ABG Base Excess ABG Hemoglobin Oxyhemoglobin Sodium Potassium Chloride Carbon Dioxide 15 L BUN 59 H Creatinine 3.0 H Glucose 477 H POC Glucose Calcium Phosphorus Magnesium Alkaline Phosphatase Albumin 3.5 L Triglycerides Lipase Urine WBC (Auto) Urine Creatinine 35.3 H Urine Total Protein 796 H Crossmatch 02/13/20 02/13/20 02/13/20 05:43 05:43 13:24 WBC 38.2 H RBC Hgb Hct 43.6 H MCHC RDW Plt Count Seg Neuts % (Manual) 91.0 H Lymphocytes % (Manual) 4.0 L Monocytes % (Manual) Nucleated RBC % Seg Neutrophils # Man 34.8 H Lymphocytes # (Manual) Monocytes # (Manual) 1.1 H Eosinophils # (Manual) PT INR APTT Heparin Anti-Xa Level ABG pH ABG pO2 ABG HCO3 ABG O2 Saturation ABG Base Excess ABG Hemoglobin Oxyhemoglobin Sodium 136 L Potassium Chloride Carbon Dioxide 11 L BUN 71 H Creatinine 4.0 H Glucose 343 H POC Glucose 337 H Calcium Phosphorus Magnesium Alkaline Phosphatase Albumin Triglycerides Lipase Urine WBC (Auto) Urine Creatinine Urine Total Protein Crossmatch 02/13/20 02/13/20 02/13/20 16:49 16:50 17:30 WBC RBC Hgb Hct MCHC RDW Plt Count Seg Neuts % (Manual) Lymphocytes % (Manual) Monocytes % (Manual) Nucleated RBC % Seg Neutrophils # Man Lymphocytes # (Manual) Monocytes # (Manual) Eosinophils # (Manual) PT INR APTT Heparin Anti-Xa Level ABG pH 7.226 L ABG pO2 77.9 L ABG HCO3 16.4 L ABG O2 Saturation ABG Base Excess -10.5 L ABG Hemoglobin 11.7 L Oxyhemoglobin 92.8 L Sodium Potassium Chloride Carbon Dioxide BUN Creatinine Glucose POC Glucose 272 H Calcium Phosphorus Magnesium Alkaline Phosphatase Albumin Triglycerides Lipase Urine WBC (Auto) Urine Creatinine Urine Total Protein Crossmatch See Detail 02/13/20 02/13/20 02/14/20 20:10 22:08 00:22 WBC RBC Hgb Hct MCHC RDW Plt Count Seg Neuts % (Manual) Lymphocytes % (Manual) Monocytes % (Manual) Nucleated RBC % Seg Neutrophils # Man Lymphocytes # (Manual) Monocytes # (Manual) Eosinophils # (Manual) PT 16.9 H INR 1.41 H APTT Heparin Anti-Xa Level ABG pH 7.158 L* ABG pO2 ABG HCO3 18.6 L ABG O2 Saturation ABG Base Excess -10.2 L ABG Hemoglobin 11.9 L Oxyhemoglobin 93.1 L Sodium Potassium Chloride Carbon Dioxide BUN Creatinine Glucose POC Glucose 199 H Calcium Phosphorus Magnesium Alkaline Phosphatase Albumin Triglycerides Lipase Urine WBC (Auto) Urine Creatinine Urine Total Protein Crossmatch 02/14/20 02/14/20 02/14/20 03:45 04:29 04:29 WBC 14.4 H RBC Hgb Hct MCHC RDW 15.3 H Plt Count Seg Neuts % (Manual) 88.0 H Lymphocytes % (Manual) 6.0 L Monocytes % (Manual) Nucleated RBC % Seg Neutrophils # Man 12.7 H Lymphocytes # (Manual) 0.9 L Monocytes # (Manual) Eosinophils # (Manual) PT INR APTT Heparin Anti-Xa Level ABG pH 7.193 L* ABG pO2 ABG HCO3 16.4 L ABG O2 Saturation ABG Base Excess -11.2 L ABG Hemoglobin 10.2 L Oxyhemoglobin 94.3 L Sodium Potassium Chloride 108.5 H Carbon Dioxide 16 L BUN 73 H Creatinine 4.3 H Glucose 167 H POC Glucose Calcium 8.0 L Phosphorus Magnesium Alkaline Phosphatase Albumin Triglycerides Lipase Urine WBC (Auto) Urine Creatinine Urine Total Protein Crossmatch 02/14/20 02/14/20 02/14/20 05:26 12:11 18:34 WBC RBC Hgb Hct MCHC RDW Plt Count Seg Neuts % (Manual) Lymphocytes % (Manual) Monocytes % (Manual) Nucleated RBC % Seg Neutrophils # Man Lymphocytes # (Manual) Monocytes # (Manual) Eosinophils # (Manual) PT INR APTT Heparin Anti-Xa Level ABG pH ABG pO2 ABG HCO3 ABG O2 Saturation ABG Base Excess ABG Hemoglobin Oxyhemoglobin Sodium Potassium Chloride Carbon Dioxide BUN Creatinine Glucose POC Glucose 177 H 160 H 135 H Calcium Phosphorus Magnesium Alkaline Phosphatase Albumin Triglycerides Lipase Urine WBC (Auto) Urine Creatinine Urine Total Protein Crossmatch 02/14/20 02/15/20 02/15/20 23:18 03:19 04:28 WBC RBC Hgb Hct MCHC RDW Plt Count Seg Neuts % (Manual) Lymphocytes % (Manual) Monocytes % (Manual) Nucleated RBC % Seg Neutrophils # Man Lymphocytes # (Manual) Monocytes # (Manual) Eosinophils # (Manual) PT INR APTT Heparin Anti-Xa Level ABG pH 7.246 L ABG pO2 ABG HCO3 13.7 L ABG O2 Saturation ABG Base Excess -12.5 L ABG Hemoglobin 8.4 L Oxyhemoglobin 94.6 L Sodium Potassium Chloride Carbon Dioxide 12 L BUN 72 H Creatinine 4.7 H Glucose 147 H POC Glucose 138 H Calcium 7.9 L Phosphorus Magnesium Alkaline Phosphatase Albumin Triglycerides Lipase Urine WBC (Auto) Urine Creatinine Urine Total Protein Crossmatch 02/15/20 02/15/20 02/15/20 04:28 05:35 12:07 WBC RBC 2.88 L Hgb 8.6 L Hct 25.4 L D MCHC RDW 15.6 H Plt Count Seg Neuts % (Manual) Lymphocytes % (Manual) Monocytes % (Manual) Nucleated RBC % Seg Neutrophils # Man Lymphocytes # (Manual) Monocytes # (Manual) Eosinophils # (Manual) PT INR APTT Heparin Anti-Xa Level ABG pH ABG pO2 ABG HCO3 ABG O2 Saturation ABG Base Excess ABG Hemoglobin Oxyhemoglobin Sodium Potassium Chloride Carbon Dioxide BUN Creatinine Glucose POC Glucose 181 H 136 H Calcium Phosphorus Magnesium Alkaline Phosphatase Albumin Triglycerides Lipase Urine WBC (Auto) Urine Creatinine Urine Total Protein Crossmatch 02/15/20 02/15/20 02/16/20 17:50 23:18 04:20 WBC RBC Hgb Hct MCHC RDW Plt Count Seg Neuts % (Manual) Lymphocytes % (Manual) Monocytes % (Manual) Nucleated RBC % Seg Neutrophils # Man Lymphocytes # (Manual) Monocytes # (Manual) Eosinophils # (Manual) PT INR APTT Heparin Anti-Xa Level ABG pH ABG pO2 77.4 L ABG HCO3 ABG O2 Saturation ABG Base Excess -4.7 L ABG Hemoglobin 5.0 L Oxyhemoglobin Sodium Potassium Chloride Carbon Dioxide BUN Creatinine Glucose POC Glucose 177 H 284 H Calcium Phosphorus Magnesium Alkaline Phosphatase Albumin Triglycerides Lipase Urine WBC (Auto) Urine Creatinine Urine Total Protein Crossmatch 02/16/20 02/16/20 02/16/20 05:24 05:29 05:29 WBC RBC 2.31 L Hgb 7.2 L Hct 20.2 L MCHC 36 H RDW 15.3 H Plt Count 115 L Seg Neuts % (Manual) Lymphocytes % (Manual) Monocytes % (Manual) Nucleated RBC % Seg Neutrophils # Man Lymphocytes # (Manual) Monocytes # (Manual) Eosinophils # (Manual) PT INR APTT Heparin Anti-Xa Level ABG pH ABG pO2 ABG HCO3 ABG O2 Saturation ABG Base Excess ABG Hemoglobin Oxyhemoglobin Sodium 135 L Potassium 3.0 L D Chloride 90.7 L Carbon Dioxide BUN 64 H Creatinine 4.7 H Glucose 491 H POC Glucose 282 H Calcium 7.2 L Phosphorus Magnesium Alkaline Phosphatase Albumin Triglycerides Lipase Urine WBC (Auto) Urine Creatinine Urine Total Protein Crossmatch 02/16/20 02/16/20 02/16/20 05:29 08:39 12:27 WBC RBC Hgb Hct MCHC RDW Plt Count Seg Neuts % (Manual) Lymphocytes % (Manual) Monocytes % (Manual) Nucleated RBC % Seg Neutrophils # Man Lymphocytes # (Manual) Monocytes # (Manual) Eosinophils # (Manual) PT INR APTT Heparin Anti-Xa Level ABG pH ABG pO2 ABG HCO3 ABG O2 Saturation ABG Base Excess ABG Hemoglobin Oxyhemoglobin Sodium Potassium Chloride Carbon Dioxide BUN Creatinine Glucose POC Glucose 314 H Calcium Phosphorus Magnesium Alkaline Phosphatase Albumin Triglycerides 716 H Lipase Urine WBC (Auto) Urine Creatinine Urine Total Protein Crossmatch See Detail 02/16/20 02/17/20 02/17/20 19:04 00:02 03:45 WBC RBC Hgb Hct MCHC RDW Plt Count Seg Neuts % (Manual) Lymphocytes % (Manual) Monocytes % (Manual) Nucleated RBC % Seg Neutrophils # Man Lymphocytes # (Manual) Monocytes # (Manual) Eosinophils # (Manual) PT INR APTT Heparin Anti-Xa Level ABG pH ABG pO2 ABG HCO3 ABG O2 Saturation ABG Base Excess ABG Hemoglobin Oxyhemoglobin Sodium Potassium Chloride Carbon Dioxide 21 L BUN 63 H Creatinine 5.2 H Glucose 134 H POC Glucose 203 H 202 H Calcium 7.6 L Phosphorus Magnesium Alkaline Phosphatase Albumin Triglycerides Lipase Urine WBC (Auto) Urine Creatinine Urine Total Protein Crossmatch 02/17/20 02/17/20 02/17/20 03:45 03:45 04:06 WBC RBC Hgb 9.9 L Hct 30.1 L D MCHC RDW Plt Count Seg Neuts % (Manual) Lymphocytes % (Manual) Monocytes % (Manual) Nucleated RBC % Seg Neutrophils # Man Lymphocytes # (Manual) Monocytes # (Manual) Eosinophils # (Manual) PT INR APTT Heparin Anti-Xa Level ABG pH 7.288 L ABG pO2 ABG HCO3 ABG O2 Saturation ABG Base Excess -4.9 L ABG Hemoglobin 9.7 L Oxyhemoglobin 94.0 L Sodium Potassium Chloride Carbon Dioxide BUN Creatinine Glucose POC Glucose Calcium Phosphorus Magnesium Alkaline Phosphatase Albumin Triglycerides 238 H Lipase Urine WBC (Auto) Urine Creatinine Urine Total Protein Crossmatch 02/17/20 02/17/20 02/17/20 05:21 12:08 18:07 WBC RBC Hgb Hct MCHC RDW Plt Count Seg Neuts % (Manual) Lymphocytes % (Manual) Monocytes % (Manual) Nucleated RBC % Seg Neutrophils # Man Lymphocytes # (Manual) Monocytes # (Manual) Eosinophils # (Manual) PT INR APTT Heparin Anti-Xa Level ABG pH ABG pO2 ABG HCO3 ABG O2 Saturation ABG Base Excess ABG Hemoglobin Oxyhemoglobin Sodium Potassium Chloride Carbon Dioxide BUN Creatinine Glucose POC Glucose 132 H 141 H 189 H Calcium Phosphorus Magnesium Alkaline Phosphatase Albumin Triglycerides Lipase Urine WBC (Auto) Urine Creatinine Urine Total Protein Crossmatch 02/17/20 02/17/20 02/18/20 19:54 23:13 03:41 WBC RBC Hgb Hct MCHC RDW Plt Count Seg Neuts % (Manual) Lymphocytes % (Manual) Monocytes % (Manual) Nucleated RBC % Seg Neutrophils # Man Lymphocytes # (Manual) Monocytes # (Manual) Eosinophils # (Manual) PT INR APTT Heparin Anti-Xa Level < 0.10 L ABG pH 7.281 L ABG pO2 74.5 L ABG HCO3 16.2 L ABG O2 Saturation 94.3 L ABG Base Excess -9.7 L ABG Hemoglobin 9.8 L Oxyhemoglobin 92.1 L Sodium Potassium Chloride Carbon Dioxide BUN Creatinine Glucose POC Glucose 167 H Calcium Phosphorus Magnesium Alkaline Phosphatase Albumin Triglycerides Lipase Urine WBC (Auto) Urine Creatinine Urine Total Protein Crossmatch 02/18/20 02/18/20 02/18/20 04:37 05:44 09:00 WBC RBC Hgb Hct MCHC RDW Plt Count Seg Neuts % (Manual) Lymphocytes % (Manual) Monocytes % (Manual) Nucleated RBC % Seg Neutrophils # Man Lymphocytes # (Manual) Monocytes # (Manual) Eosinophils # (Manual) PT INR APTT Heparin Anti-Xa Level ABG pH ABG pO2 ABG HCO3 ABG O2 Saturation ABG Base Excess ABG Hemoglobin Oxyhemoglobin Sodium Potassium Chloride Carbon Dioxide 15 L BUN 65 H Creatinine 5.1 H Glucose 117 H POC Glucose 112 H Calcium 7.7 L Phosphorus 6.40 H Magnesium 1.30 L Alkaline Phosphatase Albumin Triglycerides Lipase Urine WBC (Auto) Urine Creatinine Urine Total Protein Crossmatch 02/18/20 02/18/20 02/18/20 09:00 12:41 17:58 WBC 14.9 H RBC 2.99 L Hgb 8.8 L Hct 27.1 L MCHC RDW 15.8 H Plt Count 131 L Seg Neuts % (Manual) Lymphocytes % (Manual) Monocytes % (Manual) Nucleated RBC % Seg Neutrophils # Man Lymphocytes # (Manual) Monocytes # (Manual) Eosinophils # (Manual) PT INR APTT Heparin Anti-Xa Level ABG pH ABG pO2 ABG HCO3 ABG O2 Saturation ABG Base Excess ABG Hemoglobin Oxyhemoglobin Sodium Potassium Chloride Carbon Dioxide BUN Creatinine Glucose POC Glucose 140 H 141 H Calcium Phosphorus Magnesium Alkaline Phosphatase Albumin Triglycerides Lipase Urine WBC (Auto) Urine Creatinine Urine Total Protein Crossmatch 02/18/20 02/19/20 02/19/20 23:06 03:50 04:30 WBC RBC Hgb Hct MCHC RDW Plt Count Seg Neuts % (Manual) Lymphocytes % (Manual) Monocytes % (Manual) Nucleated RBC % Seg Neutrophils # Man Lymphocytes # (Manual) Monocytes # (Manual) Eosinophils # (Manual) PT INR APTT Heparin Anti-Xa Level ABG pH 7.243 L ABG pO2 75.3 L ABG HCO3 11.8 L ABG O2 Saturation 94.0 L ABG Base Excess -14.1 L ABG Hemoglobin 9.6 L Oxyhemoglobin 91.8 L Sodium 136 L Potassium Chloride Carbon Dioxide 12 L BUN 76 H Creatinine 5.2 H Glucose 228 H POC Glucose 212 H Calcium Phosphorus Magnesium Alkaline Phosphatase Albumin Triglycerides Lipase Urine WBC (Auto) Urine Creatinine Urine Total Protein Crossmatch 02/19/20 02/19/20 02/19/20 04:30 04:30 06:19 WBC 19.8 H RBC 3.19 L Hgb 9.1 L Hct 28.9 L MCHC RDW 15.5 H Plt Count Seg Neuts % (Manual) 86.0 H Lymphocytes % (Manual) 5.0 L Monocytes % (Manual) Nucleated RBC % Seg Neutrophils # Man 17.0 H Lymphocytes # (Manual) 1.0 L Monocytes # (Manual) 1.4 H Eosinophils # (Manual) PT INR APTT Heparin Anti-Xa Level ABG pH ABG pO2 ABG HCO3 ABG O2 Saturation ABG Base Excess ABG Hemoglobin Oxyhemoglobin Sodium Potassium Chloride Carbon Dioxide BUN Creatinine Glucose POC Glucose 253 H Calcium Phosphorus 8.00 H D Magnesium Alkaline Phosphatase Albumin Triglycerides Lipase Urine WBC (Auto) Urine Creatinine Urine Total Protein Crossmatch 02/19/20 02/19/20 02/19/20 11:37 14:00 14:00 WBC RBC Hgb Hct MCHC RDW Plt Count Seg Neuts % (Manual) Lymphocytes % (Manual) Monocytes % (Manual) Nucleated RBC % Seg Neutrophils # Man Lymphocytes # (Manual) Monocytes # (Manual) Eosinophils # (Manual) PT INR APTT Heparin Anti-Xa Level ABG pH ABG pO2 ABG HCO3 ABG O2 Saturation ABG Base Excess ABG Hemoglobin Oxyhemoglobin Sodium 132 L Potassium Chloride 95.4 L Carbon Dioxide 15 L BUN 75 H Creatinine 5.2 H Glucose 526 H* POC Glucose 288 H Calcium 7.6 L Phosphorus Magnesium Alkaline Phosphatase Albumin Triglycerides Lipase Urine WBC (Auto) 166.0 H Urine Creatinine Urine Total Protein Crossmatch 02/19/20 02/19/20 02/19/20 15:07 17:40 23:40 WBC RBC Hgb Hct MCHC RDW Plt Count Seg Neuts % (Manual) Lymphocytes % (Manual) Monocytes % (Manual) Nucleated RBC % Seg Neutrophils # Man Lymphocytes # (Manual) Monocytes # (Manual) Eosinophils # (Manual) PT INR APTT Heparin Anti-Xa Level ABG pH ABG pO2 ABG HCO3 ABG O2 Saturation ABG Base Excess ABG Hemoglobin Oxyhemoglobin Sodium Potassium Chloride Carbon Dioxide BUN Creatinine Glucose POC Glucose 324 H 328 H 390 H Calcium Phosphorus Magnesium Alkaline Phosphatase Albumin Triglycerides Lipase Urine WBC (Auto) Urine Creatinine Urine Total Protein Crossmatch 02/20/20 02/20/20 02/20/20 03:15 03:15 03:15 WBC 13.6 H RBC 2.43 L Hgb 7.1 L Hct 21.3 L D MCHC RDW Plt Count 136 L Seg Neuts % (Manual) 81.0 H Lymphocytes % (Manual) 5.0 L Monocytes % (Manual) Nucleated RBC % Seg Neutrophils # Man 11.0 H Lymphocytes # (Manual) 0.7 L Monocytes # (Manual) Eosinophils # (Manual) PT INR APTT Heparin Anti-Xa Level 0.19 L ABG pH ABG pO2 ABG HCO3 ABG O2 Saturation ABG Base Excess ABG Hemoglobin Oxyhemoglobin Sodium Potassium 3.5 L D Chloride Carbon Dioxide 19 L BUN 85 H Creatinine 5.4 H Glucose 353 H POC Glucose Calcium 8.3 L Phosphorus 6.50 H Magnesium Alkaline Phosphatase Albumin Triglycerides Lipase Urine WBC (Auto) Urine Creatinine Urine Total Protein Crossmatch 02/20/20 02/20/20 02/20/20 04:29 05:21 11:52 WBC RBC Hgb Hct MCHC RDW Plt Count Seg Neuts % (Manual) Lymphocytes % (Manual) Monocytes % (Manual) Nucleated RBC % Seg Neutrophils # Man Lymphocytes # (Manual) Monocytes # (Manual) Eosinophils # (Manual) PT INR APTT Heparin Anti-Xa Level ABG pH ABG pO2 ABG HCO3 ABG O2 Saturation ABG Base Excess -3.8 L ABG Hemoglobin 6.0 L Oxyhemoglobin 94.6 L Sodium Potassium Chloride Carbon Dioxide BUN Creatinine Glucose POC Glucose 400 H 348 H Calcium Phosphorus Magnesium Alkaline Phosphatase Albumin Triglycerides Lipase Urine WBC (Auto) Urine Creatinine Urine Total Protein Crossmatch 02/20/20 02/20/20 02/20/20 18:30 20:02 23:31 WBC RBC Hgb Hct MCHC RDW Plt Count Seg Neuts % (Manual) Lymphocytes % (Manual) Monocytes % (Manual) Nucleated RBC % Seg Neutrophils # Man Lymphocytes # (Manual) Monocytes # (Manual) Eosinophils # (Manual) PT INR APTT Heparin Anti-Xa Level ABG pH ABG pO2 ABG HCO3 ABG O2 Saturation ABG Base Excess ABG Hemoglobin Oxyhemoglobin Sodium Potassium Chloride Carbon Dioxide BUN Creatinine Glucose 584 H* POC Glucose 422 H 341 H Calcium Phosphorus Magnesium Alkaline Phosphatase Albumin Triglycerides Lipase Urine WBC (Auto) Urine Creatinine Urine Total Protein Crossmatch 02/21/20 02/21/20 02/21/20 03:53 03:53 03:53 WBC RBC Hgb 5.9 L* Hct 18.5 L* MCHC RDW Plt Count Seg Neuts % (Manual) Lymphocytes % (Manual) Monocytes % (Manual) Nucleated RBC % Seg Neutrophils # Man Lymphocytes # (Manual) Monocytes # (Manual) Eosinophils # (Manual) PT INR APTT Heparin Anti-Xa Level 1.13 H ABG pH ABG pO2 ABG HCO3 ABG O2 Saturation ABG Base Excess ABG Hemoglobin Oxyhemoglobin Sodium 136 L Potassium Chloride 97.5 L Carbon Dioxide 21 L BUN 97 H Creatinine 5.3 H Glucose 246 H POC Glucose Calcium 8.1 L Phosphorus Magnesium Alkaline Phosphatase Albumin Triglycerides Lipase Urine WBC (Auto) Urine Creatinine Urine Total Protein Crossmatch 02/21/20 02/21/20 02/21/20 04:16 06:00 06:32 WBC RBC Hgb Hct MCHC RDW Plt Count Seg Neuts % (Manual) Lymphocytes % (Manual) Monocytes % (Manual) Nucleated RBC % Seg Neutrophils # Man Lymphocytes # (Manual) Monocytes # (Manual) Eosinophils # (Manual) PT INR APTT Heparin Anti-Xa Level ABG pH 7.318 L ABG pO2 100.0 H ABG HCO3 ABG O2 Saturation ABG Base Excess -4.4 L ABG Hemoglobin 9.1 L Oxyhemoglobin Sodium Potassium Chloride Carbon Dioxide BUN Creatinine Glucose POC Glucose 317 H Calcium Phosphorus Magnesium Alkaline Phosphatase Albumin Triglycerides Lipase Urine WBC (Auto) Urine Creatinine Urine Total Protein Crossmatch See Detail 02/21/20 02/21/20 02/21/20 11:45 17:40 23:37 WBC RBC Hgb Hct MCHC RDW Plt Count Seg Neuts % (Manual) Lymphocytes % (Manual) Monocytes % (Manual) Nucleated RBC % Seg Neutrophils # Man Lymphocytes # (Manual) Monocytes # (Manual) Eosinophils # (Manual) PT INR APTT Heparin Anti-Xa Level ABG pH ABG pO2 ABG HCO3 ABG O2 Saturation ABG Base Excess ABG Hemoglobin Oxyhemoglobin Sodium Potassium Chloride Carbon Dioxide BUN Creatinine Glucose POC Glucose 389 H 387 H 297 H Calcium Phosphorus Magnesium Alkaline Phosphatase Albumin Triglycerides Lipase Urine WBC (Auto) Urine Creatinine Urine Total Protein Crossmatch 02/22/20 02/22/20 02/22/20 03:16 03:16 03:16 WBC 22.8 H RBC 2.49 L Hgb 7.4 L Hct 22.7 L MCHC RDW 15.6 H Plt Count Seg Neuts % (Manual) 74.0 H Lymphocytes % (Manual) 8.5 L Monocytes % (Manual) 13.5 H Nucleated RBC % 2.5 H Seg Neutrophils # Man 16.9 H Lymphocytes # (Manual) Monocytes # (Manual) 3.1 H Eosinophils # (Manual) 0.5 H PT INR APTT Heparin Anti-Xa Level 0.27 L ABG pH ABG pO2 ABG HCO3 ABG O2 Saturation ABG Base Excess ABG Hemoglobin Oxyhemoglobin Sodium 135 L Potassium Chloride 95.2 L Carbon Dioxide BUN 83 H Creatinine 4.3 H Glucose 264 H POC Glucose Calcium 8.1 L Phosphorus 4.60 H Magnesium Alkaline Phosphatase Albumin Triglycerides Lipase Urine WBC (Auto) Urine Creatinine Urine Total Protein Crossmatch 02/22/20 02/22/20 02/22/20 05:16 11:50 17:26 WBC RBC Hgb Hct MCHC RDW Plt Count Seg Neuts % (Manual) Lymphocytes % (Manual) Monocytes % (Manual) Nucleated RBC % Seg Neutrophils # Man Lymphocytes # (Manual) Monocytes # (Manual) Eosinophils # (Manual) PT INR APTT Heparin Anti-Xa Level ABG pH ABG pO2 ABG HCO3 ABG O2 Saturation ABG Base Excess ABG Hemoglobin Oxyhemoglobin Sodium Potassium Chloride Carbon Dioxide BUN Creatinine Glucose POC Glucose 321 H 351 H 356 H Calcium Phosphorus Magnesium Alkaline Phosphatase Albumin Triglycerides Lipase Urine WBC (Auto) Urine Creatinine Urine Total Protein Crossmatch 02/23/20 02/23/20 02/23/20 00:04 02:55 02:55 WBC 25.6 H RBC 1.86 L Hgb 5.7 L* Hct 17.3 L* MCHC RDW 16.0 H Plt Count Seg Neuts % (Manual) 80.5 H Lymphocytes % (Manual) 9.5 L Monocytes % (Manual) Nucleated RBC % 1.0 H Seg Neutrophils # Man 20.6 H Lymphocytes # (Manual) Monocytes # (Manual) 1.5 H Eosinophils # (Manual) PT INR APTT Heparin Anti-Xa Level ABG pH ABG pO2 ABG HCO3 ABG O2 Saturation ABG Base Excess ABG Hemoglobin Oxyhemoglobin Sodium 130 L Potassium Chloride 92.8 L Carbon Dioxide BUN 94 H Creatinine 4.7 H Glucose 293 H POC Glucose 359 H Calcium Phosphorus Magnesium Alkaline Phosphatase Albumin Triglycerides Lipase Urine WBC (Auto) Urine Creatinine Urine Total Protein Crossmatch 02/23/20 02/23/20 02:55 05:33 WBC RBC Hgb Hct MCHC RDW Plt Count Seg Neuts % (Manual) Lymphocytes % (Manual) Monocytes % (Manual) Nucleated RBC % Seg Neutrophils # Man Lymphocytes # (Manual) Monocytes # (Manual) Eosinophils # (Manual) PT INR APTT Heparin Anti-Xa Level 0.15 L ABG pH ABG pO2 ABG HCO3 ABG O2 Saturation ABG Base Excess ABG Hemoglobin Oxyhemoglobin Sodium Potassium Chloride Carbon Dioxide BUN Creatinine Glucose POC Glucose 330 H Calcium Phosphorus Magnesium Alkaline Phosphatase Albumin Triglycerides Lipase Urine WBC (Auto) Urine Creatinine Urine Total Protein Crossmatch
[2020-02-23] MEDS: SERTRALINE 50 MG TAB PO SCH (09:36)
[2020-02-23] MEDS: FAMOTIDINE 20 MG/2 ML INJ IV SCH (09:36)
[2020-02-23] MEDS: INSULIN GLARGINE 100 UNITS/ML SUB-Q SCH ×2 (09:36→23:12)
--- NOTE | 2020-02-23 09:36 | Progress Note ---
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 * leucocytosis * type 2 DM--uncontrolled * Acidosis * Hypokalemia * Hypocalcemia * Anemia * C diff + Plan: * Creatinine fairly stable off HD, remain hopeful for renal recovery with minimal HD needs * Tolerated HD well on 02/20 with reasonable UF * Will provide HD again today for UF and electrolyte management in setting of potential extubation trials * Will continue HD as needed moving forward based on volume and electrolyte assessment * S/p IV Lasix 100mg yesterday with ~1L urine output; will administer another high dose IV lasix bolus on non-HD days to encourage ongoing volume removal and minimize HD UF needs * Acidosis stable * Continue iv abx per ID recs * Surgery recs appreciated * PRBC transfusion prn per primary, holding heparin gtt * Daily lytes; strict i/os * Avoid nephrotoxins * vasopressors prn Thank for involving in the care of this critically ill patient. We will follow closely with you; please do not hesitate to call me on my cell at for any renal related issues. High risk for decompensation given clinical status Subjective Date of service: 02/23/20 Principal diagnosis: Ischemic Bowel Interval history: Reviewed weekend events, noted to be anemic to 5.7 this AM Objective - Exam Narrative Exam: Gen: Intubated, opens eyes ENT: ETT in place CV: s1, S2, on dilt gtt, amio gtt Resp: on vent Abd: soft Ext: no c/c/e : corcoran with clear yellow urine Neuro: opens eye spontaneously - Vital Signs Vital signs: Vital Signs - 12hr 02/22/20 02/22/20 02/22/20 22:00 22:30 22:59 Temperature Pulse Rate 89 91 H 95 H Respiratory 15 17 14 Rate Blood Pressure 147/75 152/85 143/83 O2 Sat by Pulse 100 100 100 Oximetry 02/22/20 02/22/20 02/22/20 23:00 23:06 23:30 Temperature Pulse Rate 85 79 86 Respiratory 16 16 17 Rate Blood Pressure 152/83 134/57 147/87 O2 Sat by Pulse 100 100 100 Oximetry 02/23/20 02/23/20 02/23/20 00:00 00:30 00:45 Temperature 98.3 F Pulse Rate 85 95 H 85 Respiratory 17 14 2 L Rate Blood Pressure 152/89 132/67 152/83 O2 Sat by Pulse 100 100 100 Oximetry 02/23/20 02/23/20 02/23/20 01:00 01:30 01:45 Temperature Pulse Rate 96 H 92 H 99 H Respiratory 12 15 11 L Rate Blood Pressure 146/101 144/79 143/73 O2 Sat by Pulse 100 100 100 Oximetry 02/23/20 02/23/20 02/23/20 02:00 02:15 02:30 Temperature Pulse Rate 76 80 78 Respiratory 15 16 16 Rate Blood Pressure 149/71 120/60 112/63 O2 Sat by Pulse 100 100 100 Oximetry 02/23/20 02/23/20 02/23/20 02:45 03:00 03:15 Temperature Pulse Rate 88 105 H 102 H Respiratory 12 12 13 Rate Blood Pressure 127/71 127/71 125/84 O2 Sat by Pulse 100 100 99 Oximetry 02/23/20 02/23/20 02/23/20 03:30 03:45 04:00 Temperature 99.1 F Pulse Rate 99 H 86 93 H Respiratory 15 14 18 Rate Blood Pressure 121/76 127/59 127/59 O2 Sat by Pulse 100 100 100 Oximetry 02/23/20 02/23/20 02/23/20 04:16 04:30 04:45 Temperature Pulse Rate 109 H 107 H 96 H Respiratory 15 16 14 Rate Blood Pressure 154/73 154/73 151/86 O2 Sat by Pulse 100 99 100 Oximetry 02/23/20 02/23/20 02/23/20 04:55 05:00 05:16 Temperature 99.1 F Pulse Rate 97 H 111 H 117 H Respiratory 16 18 14 Rate Blood Pressure 154/85 157/78 161/88 O2 Sat by Pulse 100 100 100 Oximetry 02/23/20 02/23/20 02/23/20 05:25 05:30 05:46 Temperature 98.8 F Pulse Rate 103 H 108 H 94 H Respiratory 16 17 16 Rate Blood Pressure 169/76 169/76 134/68 O2 Sat by Pulse 100 100 100 Oximetry 02/23/20 02/23/20 02/23/20 05:55 06:00 06:15 Temperature 99 F Pulse Rate 94 H 96 H 113 H Respiratory 16 16 15 Rate Blood Pressure 136/70 136/70 154/97 O2 Sat by Pulse 100 100 99 Oximetry 02/23/20 02/23/20 02/23/20 06:25 06:30 06:37 Temperature 99 F 99 F Pulse Rate 97 H 98 H Respiratory 16 14 Rate Blood Pressure 159/78 159/78 O2 Sat by Pulse 100 100 Oximetry 02/23/20 02/23/20 02/23/20 06:54 07:00 07:15 Temperature 98.5 F 98.2 F Pulse Rate 87 89 97 H Respiratory 16 16 15 Rate Blood Pressure 151/75 151/75 153/82 O2 Sat by Pulse 100 100 100 Oximetry 02/23/20 02/23/20 02/23/20 07:30 07:45 08:00 Temperature 98 F 98.6 F Pulse Rate 84 96 H 97 H Respiratory 19 17 17 Rate Blood Pressure 164/70 164/70 152/59 O2 Sat by Pulse 100 100 100 Oximetry 02/23/20 02/23/20 02/23/20 08:06 08:15 08:17 Temperature 98.5 F Pulse Rate 94 H 94 H 86 Respiratory 16 Rate Blood Pressure 209/96 152/59 190/90 O2 Sat by Pulse 100 100 Oximetry 02/23/20 08:30 Temperature Pulse Rate 62 Respiratory 14 Rate Blood Pressure 168/104 O2 Sat by Pulse 100 Oximetry - Lab 02/23/20 02:55 02/23/20 02:55 Most recent lab results ABG pH 7.318 pH Units (7.350-7.450) L 02/21/20 04:16 ABG pCO2 42.7 mm Hg 02/21/20 04:16 ABG pO2 100.0 mm Hg (80.0-90.0) H 02/21/20 04:16 ABG HCO3 21.4 mmol/L (20.0-26.0) 02/21/20 04:16 ABG O2 Saturation 97.2 % (95.0-99.0) 02/21/20 04:16 Calcium 8.4 mg/dL (8.4-10.2) 02/23/20 02:55 Phosphorus 4.60 mg/dL (2.5-4.5) H 02/22/20 03:16 Magnesium 2.00 mg/dL (1.7-2.3) 02/22/20 03:16 Urine Creatinine 35.3 mg/dL (0.1-20.0) H 02/12/20 Unknown Urine Total Protein 796 mg/dL (5-11.8) H 02/12/20 Unknown Medications & Allergies - Medications Allergies/Adverse Reactions: Allergies clindamycin Allergy (Verified 02/11/20 14:52) Hives Home Medications: Home Medications Medication Instructions Recorded Confirmed Last Taken Type Doxazosin [Cardura] 4 mg PO QDAY 02/11/20 02/11/20 02/10/20 History Hydralazine HCl 50 mg PO DAILY 02/11/20 02/11/20 02/10/20 History Metoprolol 25 mg PO DAILY 02/11/20 02/11/20 02/10/20 History Sertraline [Zoloft] 50 mg PO QDAY 02/11/20 02/11/20 02/10/20 History amLODIPine [Norvasc] 10 mg PO DAILY 02/11/20 02/11/20 02/10/20 History glipiZIDE 10 mg PO BID 02/11/20 02/11/20 02/10/20 History Active Medications: Generic Name Dose Route Start Last Admin Trade Name Freq PRN Reason Stop Dose Admin Acetaminophen 650 mg 02/11/20 19:01 02/12/20 17:00 Tylenol PO 650 mg Q4H PRN Administration Pain MILD(1-3)/Fever >100.5/ADAMS Lipase/Protease/Amylase 1 each 02/20/20 10:28 Pancreazflorentin Daugherty 10,500 Unit FEEDTUBE PRN PRN For Clogged Feeding Tube Dextrose 50 ml 02/19/20 14:58 D50w (25gm) Syringe IV Q30MIN PRN Hypoglycemia Protocol Famotidine 20 mg 02/17/20 10:00 02/22/20 09:58 Pepcid IV 20 mg DAILY NADER Administration Fentanyl 50 mcg 02/19/20 15:30 02/19/20 15:29 Sublimaze IV 50 mcg Q10MIN PRN Administration ANALGESIA Hydromorphone HCl 1 mg 02/14/20 13:00 02/19/20 12:10 Dilaudid IV 1 mg Q3H PRN Administration Pain , Severe (7-10) Hydrophilic Ointment 1 applic 02/13/20 19:41 Vaseline Lip Therapy TP Q2HR PRN Dry Lips Heparin Sodium/Sodium Chloride 25,000 unit in 500 mls @ 20 mls/hr 02/13/20 20:00 02/23/20 03:47 Heparin/ 0.45% Nacl-25,000 Unit/500 Ml IV 0 units/hr TITR NADER 0 mls/hr Titration Protocol 1,000 UNITS/HR Diltiazem HCl 100 mg in 100 mls @ 2.5 mls/hr 02/16/20 12:19 02/22/20 16:35 Cardizem/D5w 100mg/100ml IV 2.5 mg/hr TITR NADER 2.5 mls/hr Administration 2.5 MG/HR Amiodarone HCl 900 mg/ 500 mls @ 33.333 mls/hr 02/19/20 11:00 02/22/20 11:57 Dextrose IV 0.5 mg/min DIRECT NADER 16.667 mls/hr Administration Protocol 1 MG/MIN Fentanyl Citrate 2,000 mcg in 100 mls @ 4.05 mls/hr 02/19/20 16:00 02/23/20 05:20 Fentanyl Drip Premix IV 2 mcg/kg/hr TITR NADER 8.1 mls/hr Titration Protocol 1 MCG/KG/HR Sodium Chloride 100 mls @ 999 mls/hr 02/22/20 12:30 Nacl 0.9% IV FABIOLA PRN Hypotension Amino Acids/Electrolytes/Dextrose 1,800 mls @ 75 mls/hr 02/22/20 20:00 02/22/20 21:11 Tpn Adult IV 02/23/20 19:59 75 mls/hr DAILY@[email or web address] [facility] Administration Protocol Insulin Glargine 25 units 02/22/20 22:00 02/22/20 21:16 Lantus SUB-Q 25 units BID NADER Administration Insulin Human Lispro 0 unit 02/19/20 18:00 02/23/20 06:56 Humalog SUB-Q 8 unit Q6HR [facility] Administration Protocol Labetalol HCl 20 mg 02/13/20 18:00 02/23/20 08:17 Labetalol IV 20 mg Q4H PRN Administration SBP >150 Metoprolol Tartrate 2.5 mg 02/13/20 18:00 02/18/20 04:41 Metoprolol IV 2.5 mg Q6HR PRN Administration HR >130 Multi-Ingred Cream/Lotion/Oil/Oint 1 applic 02/13/20 19:41 Artificial Tears Ophth Oint OU Q4HR PRN Dry Eye(s) Sertraline HCl 50 mg 02/23/20 10:00 Zoloft PO QDAY NADER Simple Syrup 15 ml 02/20/20 10:28 Simple Syrup FEEDTUBE PRN PRN Hypoglycemia Simple Syrup 30 ml 02/20/20 10:28 Simple Syrup FEEDTUBE PRN PRN Hypoglycemia Sodium Bicarbonate 325 mg 02/20/20 10:28 Sodium Bicarbonate FEEDTUBE PRN PRN For Clogged Feeding Tube Sodium Chloride 10 ml 02/11/20 22:00 02/22/20 21:15 Sodium Chloride Flush Syringe 10 Ml IV 10 ml BID NADER Administration Sodium Chloride 10 ml 02/11/20 19:01 02/15/20 22:43 Sodium Chloride Flush Syringe 10 Ml IV 10 ml PRN PRN Administration LINE FLUSH Vancomycin HCl 125 mg 02/20/20 15:00 02/23/20 06:52 Vancomycin Po PO 02/27/20 06:01 125 mg Q6HR NADER Administration
[2020-02-23] MEDS ORDERED: SODIUM CHLORIDE 0.9% 1000 ML 2,000 ML ONE (09:42)
[2020-02-23] MEDS ORDERED: INSULIN GLARGINE 100 UNITS/ML SUB-Q ONE (11:30)
--- NOTE | 2020-02-23 11:31 | Progress Note ---
Assessment and Plan - Patient Problems (1) Ischemic necrosis of small bowel Current Visit: Yes Status: Acute Plan to address problem: Assessment and Plan 74-year-old female status post 1. Exploratory laparotomy, enterocolonic anastamosis, closure of abdomen, application of wound vac, POD 7 2. Exploratory laparotomy, extensive small bowel resection, partial colon resection, placement of abthera vac, placement of right radial arterial line, 02/13/20 1. bowel ischemia with gangrene 2. sepsis 3. LITZY 4. Afib with RVR 5. Tobacco dependence 6. Venous duplex - L superficial femoral vein nonocclusive thrombus 7. Cdiff + CXR 02/20/20 - no residual disease CT C/A/P 02/19/20 - post operative changes of right colon. Anastamosis is intact. Generalized edema of abdominal wall. Pt currently hemodynamically stable. Plan: 1. neuro - Continue as needed pain control. Pt still with AMS. 2. CV - cardiology on board for Afib. H/H 5.7 <7.4 - transfuse prbc. These recurrent drops are probably a reflection of generalized oozing from multiple sites as a result of the anticoagulation. Anticoagulation on hold 3. Resp - vent management per ICU team, extubate when criteria met. 4. GI - Cont TF via NGT, continue to adv to goal as tolerated. Hold if residual >250cc. Pt continues to have bowel function - diarrhea expected, Continue incisional wound VAC - old blood clot noted under dressing change today but no active bleeding - will continue to monitor. GI ppx - protonix IV 5. - strict I/Os. Nephrology on board, HD start. 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 6. ID - continue abx per ID. leukocytosis up again today. No change in abdominal status. Source possibly UTI. Could also be clot related. UCx/BCx - neg. 7. Endo - strict glucose control 8. Musc - turning q2 as per protocol, skin breakdown precautions, SCDs 9. FEN - Cont TF, Continue TPN until pt tolerating TF at goal, replace lytes as needed. spoke with RN regarding allowing a family visit. Spoke with patient's family. Utilization Management Nurse notes reviewed and recs appreciated Thank you, please call with questions. Subjective Date of service: 02/23/20 Narrative: Pt seen and examined. Undergoing HD. No f/c. Per RN, last gastric residual was 180cc. Pt having bowel function. Has not been able to be weaned off of vent. Objective Vital Signs - 12hr 02/23/20 02/23/20 02/23/20 00:00 00:30 00:45 Temperature 98.3 F Pulse Rate 85 95 H 85 Respiratory 17 14 2 L Rate Blood Pressure 152/89 132/67 152/83 O2 Sat by Pulse 100 100 100 Oximetry O2 Sat by Pulse Oximetry [ Anterior Bilateral] O2 Sat by Pulse Oximetry [ Bilateral Throughout] 02/23/20 02/23/20 02/23/20 01:00 01:30 01:45 Temperature Pulse Rate 96 H 92 H 99 H Respiratory 12 15 11 L Rate Blood Pressure 146/101 144/79 143/73 O2 Sat by Pulse 100 100 100 Oximetry O2 Sat by Pulse Oximetry [ Anterior Bilateral] O2 Sat by Pulse Oximetry [ Bilateral Throughout] 02/23/20 02/23/20 02/23/20 02:00 02:15 02:30 Temperature Pulse Rate 76 80 78 Respiratory 15 16 16 Rate Blood Pressure 149/71 120/60 112/63 O2 Sat by Pulse 100 100 100 Oximetry O2 Sat by Pulse Oximetry [ Anterior Bilateral] O2 Sat by Pulse Oximetry [ Bilateral Throughout] 02/23/20 02/23/20 02/23/20 02:45 03:00 03:15 Temperature Pulse Rate 88 105 H 102 H Respiratory 12 12 13 Rate Blood Pressure 127/71 127/71 125/84 O2 Sat by Pulse 100 100 99 Oximetry O2 Sat by Pulse Oximetry [ Anterior Bilateral] O2 Sat by Pulse Oximetry [ Bilateral Throughout] 02/23/20 02/23/20 02/23/20 03:30 03:45 04:00 Temperature 99.1 F Pulse Rate 99 H 86 93 H Respiratory 15 14 18 Rate Blood Pressure 121/76 127/59 127/59 O2 Sat by Pulse 100 100 100 Oximetry O2 Sat by Pulse Oximetry [ Anterior Bilateral] O2 Sat by Pulse Oximetry [ Bilateral Throughout] 02/23/20 02/23/20 02/23/20 04:16 04:30 04:45 Temperature Pulse Rate 109 H 107 H 96 H Respiratory 15 16 14 Rate Blood Pressure 154/73 154/73 151/86 O2 Sat by Pulse 100 99 100 Oximetry O2 Sat by Pulse Oximetry [ Anterior Bilateral] O2 Sat by Pulse Oximetry [ Bilateral Throughout] 02/23/20 02/23/20 02/23/20 04:55 05:00 05:16 Temperature 99.1 F Pulse Rate 97 H 111 H 117 H Respiratory 16 18 14 Rate Blood Pressure 154/85 157/78 161/88 O2 Sat by Pulse 100 100 100 Oximetry O2 Sat by Pulse Oximetry [ Anterior Bilateral] O2 Sat by Pulse Oximetry [ Bilateral Throughout] 02/23/20 02/23/20 02/23/20 05:25 05:30 05:46 Temperature 98.8 F Pulse Rate 103 H 108 H 94 H Respiratory 16 17 16 Rate Blood Pressure 169/76 169/76 134/68 O2 Sat by Pulse 100 100 100 Oximetry O2 Sat by Pulse Oximetry [ Anterior Bilateral] O2 Sat by Pulse Oximetry [ Bilateral Throughout] 02/23/20 02/23/20 02/23/20 05:55 06:00 06:15 Temperature 99 F Pulse Rate 94 H 96 H 113 H Respiratory 16 16 15 Rate Blood Pressure 136/70 136/70 154/97 O2 Sat by Pulse 100 100 99 Oximetry O2 Sat by Pulse Oximetry [ Anterior Bilateral] O2 Sat by Pulse Oximetry [ Bilateral Throughout] 02/23/20 02/23/20 02/23/20 06:25 06:30 06:37 Temperature 99 F 99 F Pulse Rate 97 H 98 H Respiratory 16 14 Rate Blood Pressure 159/78 159/78 O2 Sat by Pulse 100 100 Oximetry O2 Sat by Pulse Oximetry [ Anterior Bilateral] O2 Sat by Pulse Oximetry [ Bilateral Throughout] 02/23/20 02/23/20 02/23/20 06:54 07:00 07:15 Temperature 98.5 F 98.2 F Pulse Rate 87 89 97 H Respiratory 16 16 15 Rate Blood Pressure 151/75 151/75 153/82 O2 Sat by Pulse 100 100 100 Oximetry O2 Sat by Pulse Oximetry [ Anterior Bilateral] O2 Sat by Pulse Oximetry [ Bilateral Throughout] 02/23/20 02/23/20 02/23/20 07:30 07:45 08:00 Temperature 98 F 98.6 F Pulse Rate 84 96 H 97 H Respiratory 19 17 17 Rate Blood Pressure 164/70 164/70 152/59 O2 Sat by Pulse 100 100 100 Oximetry O2 Sat by Pulse Oximetry [ Anterior Bilateral] O2 Sat by Pulse Oximetry [ Bilateral Throughout] 02/23/20 02/23/20 02/23/20 08:06 08:15 08:17 Temperature 98.5 F Pulse Rate 94 H 94 H 86 Respiratory 16 Rate Blood Pressure 209/96 152/59 190/90 O2 Sat by Pulse 100 100 Oximetry O2 Sat by Pulse Oximetry [ Anterior Bilateral] O2 Sat by Pulse Oximetry [ Bilateral Throughout] 02/23/20 02/23/20 02/23/20 08:30 09:35 09:45 Temperature Pulse Rate 62 66 71 Respiratory 14 Rate Blood Pressure 168/104 137/59 159/86 O2 Sat by Pulse 100 Oximetry O2 Sat by Pulse Oximetry [ Anterior Bilateral] O2 Sat by Pulse Oximetry [ Bilateral Throughout] 02/23/20 02/23/20 09:50 10:00 Temperature 98.3 F Pulse Rate 66 74 Respiratory 16 Rate Blood Pressure 147/61 127/68 O2 Sat by Pulse Oximetry O2 Sat by Pulse 100 Oximetry [ Anterior Bilateral] O2 Sat by Pulse 100 Oximetry [ Bilateral Throughout] - General physical appearance Narrative Exam: Gen: Intubated, sedated. Opens eyes to stimulation. ENT: ETT and NGT in place CV: S1, S2+ Resp: on vent. No audible wheezes Abd: soft, NT, ND. Wound vac in place. Good seal, no leak. Ext: generalized edema ; Acevedo with clear yellow urine. Rectal tube with dark green stool. - Labs 02/23/20 02:55 02/23/20 02:55 Diabetes panel 02/23/20 Range/Units 02:55 Sodium 130 L (137-145) mmol/L Potassium 4.2 (3.6-5.0) mmol/L Chloride 92.8 L (98-107) mmol/L Carbon Dioxide 22 (22-30) mmol/L BUN 94 H (7-17) mg/dL Creatinine 4.7 H (0.7-1.2) mg/dL Glucose 293 H (65-100) mg/dL Calcium 8.4 (8.4-10.2) mg/dL Calcium panel 02/23/20 Range/Units 02:55 Calcium 8.4 (8.4-10.2) mg/dL Pituitary panel 02/23/20 Range/Units 02:55 Sodium 130 L (137-145) mmol/L Potassium 4.2 (3.6-5.0) mmol/L Chloride 92.8 L (98-107) mmol/L Carbon Dioxide 22 (22-30) mmol/L BUN 94 H (7-17) mg/dL Creatinine 4.7 H (0.7-1.2) mg/dL Glucose 293 H (65-100) mg/dL Calcium 8.4 (8.4-10.2) mg/dL Adrenal panel 02/23/20 Range/Units 02:55 Sodium 130 L (137-145) mmol/L Potassium 4.2 (3.6-5.0) mmol/L Chloride 92.8 L (98-107) mmol/L Carbon Dioxide 22 (22-30) mmol/L BUN 94 H (7-17) mg/dL Creatinine 4.7 H (0.7-1.2) mg/dL Glucose 293 H (65-100) mg/dL Calcium 8.4 (8.4-10.2) mg/dL
--- NOTE | 2020-02-23 11:43 | Progress Note ---
Assessment and Plan Assessment and plan: Sepsis. Etiology due to ischemic bowel. Acute hypoxic resp failure. Pulm following. 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 Pt. is s/p Exploratory laparotomy, extensive small bowel resection, partial colon resection, placement of abthera vac on 02/13/2020. S/p exploratory laparotomy, enterocolonic anastamosis, closure of abdomen, application of wound vac on 02/15 UTI. Continue antibiotics per ID. Presumed infected renal cyst. ID following Diabetes Mellitus type 2. Tight glycemic control, accucheks and ssri Diarrhea- resolved prior to presentation, doubt C diff, likely from ischemic bowel. LITZY on CKD: Renally adjust antibiotics, worsening Right saphenous vein DVT. Anticoagulation C. difficile colitis. Recommend p.o. vancomycin 02/18/2020. Patient still with oral ETT on mechanical ventilation. Patient currently with PSVT trials, FiO2 30% pressure support 12 and PEEP 6. Continue to wean as tolerated. Consider extubation today. However, chest x-ray today reveals developing right pleural effusion. Continue wound care per wound team. Continue incisional wound VAC. Continue strict n.p.o. and NGT to low intermittent suction. Continue IV antibiotics per ID 02/19/2020. Patient currently with AC mode ventilation rate 16, tidal volume 450, FiO2 30%, PEEP 6. Continue to wean per protocol and pulmonary recommendations. Patient failed PSV secondary to tachypnea today. Continue wound care per wound team. Continue incisional wound VAC. Continue strict n.p.o. and NGT to low intermittent suction. Continue IV antibiotics per ID. Creatinine stable today at 5.1/5.2 and remains non-oliguric; no indication for renal replacement therapy emergently per nephrology. Nephrology to administer 100 mg of IV Lasix today to further promote diuresis and help with metabolic acidosis. Remains at high risk for needing renal replacement therapy 02/20/2020. Patient currently with AC mode ventilation rate 16, tidal volume 450, FiO2 30%, PEEP 6. Continue to wean per protocol and pulmonary recommendations. Patient failed PSV trials. Patient with right lower extremity DVT. Continue anticoagulation which patient is currently on. Patient also with C. difficile colitis/C. difficile positive. We will start p.o. vancomycin. Acute kidney injury on CKD continues to worsen. Therefore, patient will likely need hemodialysis. Defer to nephrology. 02/21/2020. Patient remains on mechanical ventilation AC mode, rate 16, tidal volume 450, FiO2 30%. Continue weaning per protocol. 2 units PRBCs ordered stat for severe anemia. Follow-up CBC posttransfusion. Patient currently on anticoagulation for right lower extremity DVT. Continue wound care. BG elevated in the 300s. We will start Lantus 10 units at bedtime. 02/22/2020. Patient remains on mechanical ventilation AC mode rate 16, tidal volume 450 and FiO2 30%. Continue PSV trials urine culture found to be negative. Continue p.o. vancomycin for C. difficile. Continue cefepime, Flagyl and fluconazole for sepsis/peritonitis. Blood cultures thus far negative. Patient s/p PRBCs for severe anemia. Hemoglobin stable at 7.4. Follow-up CBC in a.m. Patient currently on anticoagulation for right lower extremity DVT. 02/23/20. Anticoagulation for A. fib currently on hold due to anemia. Patient is s/p PRBCs. We will follow-up H&H. Continue to feed via NG tube and advance as tolerated. Continue TPN until patient tolerating tube feeding at goal. Continue wound VAC and monitor drainage. With regards her renal function, LITZY on CKD 3--with ATN, hemodialysis per nephrology. S/p IV Lasix 100mg yesterday with ~1L urine output; will administer another high dose IV lasix bolus on non- HD days to encourage ongoing volume removal and minimize HD UF needs. Continue antibiotics per ID. Leukocytosis likely secondary to UTI. CT C/A/P 02/19/20 - post operative changes of right colon. Anastamosis is intact. Generalized edema of abdominal wall. Urine and blood cultures were found to be negative. The high probability of a clinically significant, sudden or life threatening deterioration of the [respiratory] system(s) required my full and direct a ttention, intervention and personal management. The aggregate critical care time was [32] minutes. This time is in addition to time spent performing reported procedures but includes the following: [x] Data Review and interpretation [x] Patient assessment and monitoring of vital signs [x] Documentation [x] Medication orders and management History Interval history: No new issues Hospitalist Physical - Constitutional Vitals: Temp Pulse Resp BP Pulse Ox 98.3 F 74 16 127/68 100 02/23/20 09:50 02/23/20 10:00 02/23/20 09:50 02/23/20 10:00 02/23/20 09:50 General appearance: Present: other (Intubated) - EENT Eyes: Present: PERRL, EOM intact ENT: hearing intact, clear oral mucosa, dentition normal - Neck Neck: Present: supple, normal ROM - Respiratory Respiratory effort: normal Respiratory: bilateral: CTA - Cardiovascular Rhythm: regular Heart Sounds: Present: S1 & S2. Absent: gallop, rub - Extremities Extremities: no ischemia, No edema, Full ROM - Abdominal General gastrointestinal: soft, non-tender, non-distended, normal bowel sounds - Integumentary Integumentary: Present: clear, warm, dry - Neurologic Neurologic: CNII-XII intact, moves all extremities HEART Score - HEART Score Troponin: Troponin T < 0.010 ng/mL (0.00-0.029) 02/11/20 15:27 Results - Labs CBC & Chem 7: 02/23/20 02:55 02/23/20 02:55 Labs: Laboratory Last Values WBC 25.6 K/mm3 (4.5-11.0) H 02/23/20 02:55 RBC 1.86 M/mm3 (3.65-5.03) L 02/23/20 02:55 Hgb 5.7 gm/dl (10.1-14.3) L* 02/23/20 02:55 Hct 17.3 % (30.3-42.9) L* 02/23/20 02:55 MCV 93 fl (79-97) 02/23/20 02:55 MCH 31 pg (28-32) 02/23/20 02:55 MCHC 33 % (30-34) 02/23/20 02:55 RDW 16.0 % (13.2-15.2) H 02/23/20 02:55 Plt Count 165 K/mm3 (140-440) 02/23/20 02:55 Add Manual Diff Complete 02/23/20 02:55 Total Counted 200 02/23/20 02:55 Seg Neutrophils % [employer] 02/14/20 04:29 Seg Neuts % (Manual) 80.5 % (40.0-70.0) H 02/23/20 02:55 Band Neutrophils % 2.5 % 02/23/20 02:55 Lymphocytes % (Manual) 9.5 % (13.4-35.0) L 02/23/20 02:55 Reactive Lymphs % (Man) 1.0 % 02/23/20 02:55 Monocytes % (Manual) 6.0 % (0.0-7.3) 02/23/20 02:55 Eosinophils % (Manual) 0.5 % (0.0-4.3) 02/23/20 02:55 Basophils % (Manual) 0 % (0.0-1.8) 02/23/20 02:55 Metamyelocytes % 0 % 02/23/20 02:55 Myelocytes % 0 % 02/23/20 02:55 Promyelocytes % 0 % 02/23/20 02:55 Blast Cells % 0 % 02/23/20 02:55 Nucleated RBC % 1.0 % (0.0-0.9) H 02/23/20 02:55 Seg Neutrophils # Man 20.6 K/mm3 (1.8-7.7) H 02/23/20 02:55 Band Neutrophils # 0.6 K/mm3 02/23/20 02:55 Lymphocytes # (Manual) 2.4 K/mm3 (1.2-5.4) 02/23/20 02:55 Abs React Lymphs (Man) 0.3 K/mm3 02/23/20 02:55 Monocytes # (Manual) 1.5 K/mm3 (0.0-0.8) H 02/23/20 02:55 Eosinophils # (Manual) 0.1 K/mm3 (0.0-0.4) 02/23/20 02:55 Basophils # (Manual) 0.0 K/mm3 (0.0-0.1) 02/23/20 02:55 Metamyelocytes # 0.0 K/mm3 02/23/20 02:55 Myelocytes # 0.0 K/mm3 02/23/20 02:55 Promyelocytes # 0.0 K/mm3 02/23/20 02:55 Blast Cells # 0.0 K/mm3 02/23/20 02:55 WBC Morphology Not Reportable 02/23/20 02:55 Hypersegmented Neuts Not Reportable 02/23/20 02:55 Hyposegmented Neuts Not Reportable 02/23/20 02:55 Hypogranular Neuts Not Reportable 02/23/20 02:55 Smudge Cells Not Reportable 02/23/20 02:55 Toxic Granulation Not Reportable 02/23/20 02:55 Toxic Vacuolation Not Reportable 02/23/20 02:55 Dohle Bodies Not Reportable 02/23/20 02:55 Pelger-Huet Anomaly Not Reportable 02/23/20 02:55 Jyoti Rods Not Reportable 02/23/20 02:55 Platelet Estimate Consistent w auto 02/23/20 02:55 Clumped Platelets Not Reportable 02/23/20 02:55 Plt Clumps, EDTA Not Reportable 02/23/20 02:55 Large Platelets Not Reportable 02/23/20 02:55 Giant Platelets Not Reportable 02/23/20 02:55 Platelet Satelliting Not Reportable 02/23/20 02:55 Plt Morphology Comment Not Reportable 02/23/20 02:55 RBC Morphology Not Reportable 02/23/20 02:55 Dimorphic RBCs Not Reportable 02/23/20 02:55 Polychromasia Not Reportable 02/23/20 02:55 Hypochromasia Not Reportable 02/23/20 02:55 Poikilocytosis Not Reportable 02/23/20 02:55 Anisocytosis 1+ 02/23/20 02:55 Microcytosis Not Reportable 02/23/20 02:55 Macrocytosis Not Reportable 02/23/20 02:55 Spherocytes Not Reportable 02/23/20 02:55 Pappenheimer Bodies Not Reportable 02/23/20 02:55 Sickle Cells Not Reportable 02/23/20 02:55 Target Cells Not Reportable 02/23/20 02:55 Tear Drop Cells Not Reportable 02/23/20 02:55 Ovalocytes Not Reportable 02/23/20 02:55 Helmet Cells Not Reportable 02/23/20 02:55 Garcia-Naselle Bodies Not Reportable 02/23/20 02:55 [place] Rings Not Reportable 02/23/20 02:55 Andrea Cells Not Reportable 02/23/20 02:55 Bite Cells Not Reportable 02/23/20 02:55 Crenated Cell Not Reportable 02/23/20 02:55 Elliptocytes Not Reportable 02/23/20 02:55 Acanthocytes (Spur) Not Reportable 02/23/20 02:55 Rouleaux Not Reportable 02/23/20 02:55 Hemoglobin C Crystals Not Reportable 02/23/20 02:55 Schistocytes Not Reportable 02/23/20 02:55 Malaria parasites Not Reportable 02/23/20 02:55 Babar Bodies Not Reportable 02/23/20 02:55 Hem Pathologist Commnt No 02/23/20 02:55 PT 16.9 Sec. (12.2-14.9) H 02/13/20 20:10 INR 1.41 (0.87-1.13) H 02/13/20 20:10 APTT 35.3 Sec. (24.2-36.6) 02/13/20 20:10 Heparin Anti-Xa Level 0.15 U.I./ml (0.3-0.7) L 02/23/20 02:55 ABG pH 7.318 pH Units (7.350-7.450) L 02/21/20 04:16 ABG pCO2 42.7 mm Hg 02/21/20 04:16 ABG pO2 100.0 mm Hg (80.0-90.0) H 02/21/20 04:16 ABG HCO3 21.4 mmol/L (20.0-26.0) 02/21/20 04:16 ABG O2 Saturation 97.2 % (95.0-99.0) 02/21/20 04:16 ABG O2 Content 12.3 (0.0-44) 02/21/20 04:16 ABG Base Excess -4.4 mmol/L (-2.0-3.0) L 02/21/20 04:16 ABG Hemoglobin 9.1 gm/dl (12.0-16.0) L 02/21/20 04:16 ABG Carboxyhemoglobin 1.5 % (0.0-5.0) 02/21/20 04:16 ABG Methemoglobin 0.7 % (0.0-1.5) 02/21/20 04:16 Oxyhemoglobin 95.2 % (95.0-99.0) 02/21/20 04:16 FiO2 30 % 02/21/20 04:16 Sodium 130 mmol/L (137-145) L 02/23/20 02:55 Potassium 4.2 mmol/L (3.6-5.0) 02/23/20 02:55 Chloride 92.8 mmol/L (98-107) L 02/23/20 02:55 Carbon Dioxide 22 mmol/L (22-30) 02/23/20 02:55 Anion Gap 19 mmol/L 02/23/20 02:55 BUN 94 mg/dL (7-17) H 02/23/20 02:55 Creatinine 4.7 mg/dL (0.7-1.2) H 02/23/20 02:55 Estimated GFR 9 ml/min 02/23/20 02:55 BUN/Creatinine Ratio 20 % 02/23/20 02:55 Glucose 293 mg/dL (65-100) H 02/23/20 02:55 POC Glucose 330 (70-105) H 02/23/20 05:33 Ketones Quantitative Negative (Negative) 02/13/20 14:51 Lactic Acid 0.70 mmol/L (0.7-2.0) 02/14/20 Unknown Calcium 8.4 mg/dL (8.4-10.2) 02/23/20 02:55 Phosphorus 4.60 mg/dL (2.5-4.5) H 02/22/20 03:16 Magnesium 2.00 mg/dL (1.7-2.3) 02/22/20 03:16 Total Bilirubin 0.20 mg/dL (0.1-1.2) 02/12/20 04:58 Direct Bilirubin < 0.2 mg/dL (0-0.2) 02/11/20 15:27 Indirect Bilirubin 0.2 mg/dL 02/11/20 15:27 AST 16 units/L (5-40) 02/12/20 04:58 ALT 24 units/L (7-56) 02/12/20 04:58 Alkaline Phosphatase 127 units/L (35-129) 02/12/20 04:58 Troponin T < 0.010 ng/mL (0.00-0.029) 02/11/20 15:27 Total Protein 7.0 g/dL (6.3-8.2) 02/12/20 04:58 Albumin 3.5 g/dL (3.9-5) L 02/12/20 04:58 Albumin/Globulin Ratio 1.0 % 02/12/20 04:58 Triglycerides 238 mg/dL (2-149) H 02/17/20 03:45 Lipase 60 units/L (13-60) 02/13/20 14:51 Urine Color Yellow (Yellow) 02/19/20 14:00 Urine Turbidity Cloudy (Clear) 02/19/20 14:00 Urine pH 5.0 (5.0-7.0) 02/19/20 14:00 Ur Specific Powell 1.007 (1.003-1.030) 02/19/20 14:00 Urine Protein 100 mg/dl mg/dL (Negative) 02/19/20 14:00 Urine Glucose (UA) >=500 mg/dL (Negative) 02/19/20 14:00 Urine Ketones Tr mg/dL (Negative) 02/19/20 14:00 Urine Blood Lg (Negative) 02/19/20 14:00 Urine Nitrite Neg (Negative) 02/19/20 14:00 Urine Bilirubin Neg (Negative) 02/19/20 14:00 Urine Urobilinogen < 2.0 mg/dL (<2.0) 02/19/20 14:00 Ur Leukocyte Esterase Lg (Negative) 02/19/20 14:00 Urine WBC (Auto) 166.0 /HPF (0.0-6.0) H 02/19/20 14:00 Urine RBC (Auto) 20.0 /HPF (0.0-6.0) 02/19/20 14:00 U Epithel Cells (Auto) 2.0 /HPF (0-13.0) 02/19/20 14:00 Urine Bacteria (Auto) 1+ /HPF (Negative) 02/19/20 14:00 Urine WBC Clumps 3+ /HPF 02/19/20 14:00 Urine Mucus Few /HPF 02/19/20 14:00 Urine Yeast (Budding) 3+ /HPF 02/19/20 14:00 Urine Eosinophils None seen (None Seen) 02/12/20 Unknown Urine Creatinine 35.3 mg/dL (0.1-20.0) H 02/12/20 Unknown Protein/Creatinin Ratio 22.55 02/12/20 Unknown Urine Total Protein 796 mg/dL (5-11.8) H 02/12/20 Unknown C. difficile Tox (PCR) Positive (Negative) 02/19/20 12:46 Hepatitis A IgM Ab Non-reactive (NonReactive) 02/21/20 10:30 Hep Bs Antigen Non-reactive (Negative) 02/21/20 10:30 Hep B Core IgM Ab Non-reactive (NonReactive) 02/21/20 10:30 Hepatitis C Antibody Non-reactive (NonReactive) 02/21/20 10:30 Blood Type O NEGATIVE 02/21/20 06:00 Antibody Screen Negative 02/21/20 06:00 Crossmatch See Detail 02/21/20 06:00 Microbiology: Microbiology 02/19/20 15:30 Peripheral/Venous Blood Culture - Preliminary NO GROWTH AFTER 72 HOURS 02/19/20 15:00 Peripheral/Venous Blood Culture - Preliminary NO GROWTH AFTER 72 HOURS - Diagnostic Impressions Diagnostic Impressions: Echocardiogram 02/13/20 18:02 Transthoracic Echocardiogram Indication: Afib BP: 101/70 HR: 128 Findings Left Ventricle: The left ventricular chamber size is normal. Mild to moderate concentric left ventricular hypertrophy is observed. Global left ventricular wall motion and contractility are within normal limits. Global left ventricular systolic function is normal. The estimated ejection fraction is 60-65%. Left Atrium: The left atrium is mild to moderately dilated. Right Ventricle: The right ventricular cavity size is normal. The right ventricular global systolic function is normal. Right Atrium: The right atrium appears normal. The interatrial septum appears normal. Aortic Valve: The aortic valve structure is normal. The aortic valve leaflets are mildly thickened. There is no evidence of aortic regurgitation. There is no evidence of aortic stenosis. Mitral Valve: The mitral valve leaflets appear normal. There is no evidence of mitral regurgitation. There is no evidence of mitral stenosis. Tricuspid Valve: The tricuspid valve leaflets are normal. There is mild to moderate tricuspid regurgitation. The right ventricular systolic pressure is calculated at 39 mmHg. There is evidence of pulmonary hypertension. There is no tricuspid stenosis. Pulmonic Valve: The pulmonic valve appears normal. There is no evidence of pulmonic regurgitation. There is no pulmonic stenosis. Pericardium: A pericardial effusion is visualized. There is a minimial pericardial effusion. A left pleural effusion is present. There is a moderate pleural effusion. Aorta: There is no dilatation of the ascending aorta. There is no dilatation of the aortic arch. There is no dilatation of the descending thoracic aorta. There is no dilatation of the aortic root. Venous: The inferior vena cava appears normal in size. Measurements Chambers 2D Name Value Normal Range IVSd (2D) 1.34 cm (0.6 - 1.1) LVPWd (2D) 1.35 cm (0.6 - 1.1) LVIDd (2D) 4.72 cm (3.7 - 5.6) LVIDs (2D) 3.28 cm (2 - 3.8) LV FS (2D) 30.38 % - EF Teichholz (2D) 57.75 % - Ao root diameter (2D) 3.02 cm (2 - 3.7) Volumes/Mass Name Value Normal Range LA ESV SP 4CH (A/L) 55.87 ml - LA ESV SP 2CH (A/L) 67.65 ml - LA ESV BP (A/L) 63.67 ml - LA ESV SP 4CH (MOD) 54.25 ml - LA ESV SP 2CH (MOD) 63.2 ml - LA ESV BP (MOD) 60.49 ml - LA ESV BP (MOD) index 34.18 ml/m2 - LV EDV SP 4CH (MOD) 70.96 ml - LV ESV SP 4CH (MOD) 23.49 ml - EF SP 4CH (MOD) 66.89 % - LV EDV SP 2CH (MOD) 61.41 ml - LV ESV SP 2CH (MOD) 27.43 ml - EF SP 2CH (MOD) 55.33 % - LV EDV BP 69.85 ml - LV ESV BP 26.44 ml - BP EF (MOD) 62.14 % - Aortic Valve Name Value Normal Range AV Vmax 1.29 m/sec - AV VTI 18.56 cm - AV peak gradient 6.69 mmHg - AV mean gradient 3.39 mmHg - LVOT diameter 1.95 cm - LVOT Vmax 1.14 m/sec - LVOT VTI 16.24 cm - LVOT peak gradient 5.21 mmHg - LVOT mean gradient 2.04 mmHg - SV LVOT 48.71 ml - TABATHA (continuity Vmax) 2.65 cm2 - TABATHA (continuity VTI) 2.62 cm2 - Ascending Ao 2.96 cm - Tricuspid Valve Name Value Normal Range TR Vmax 2.47 m/sec - TR peak gradient 24 mmHg - RAP 15 mmHg - RVSP 39 mmHg - Pulmonic Valve/Qp:Qs Name Value Normal Range PV Vmax 1.15 m/sec - PV peak gradient 5.33 mmHg - PV acceleration time 68.51 msec - Acevedo/IV: Voiding Method Indwelling Catheter IV Catheter Type [Right VAS Cath Internal Jugular] IV Catheter Type [Left Upper PICC Line arm] IV Catheter Type [Right INT / Saline Lock Antecubital] IV Catheter Type [Right Peripheral IV Forearm] IV Catheter Type [Left Forearm INT / Saline Lock ] IV Catheter Type [Right Hand] Peripheral IV Active Medications - Current Medications Current Medications: Generic Name Dose Route Start Last Admin Trade Name Freq PRN Reason Stop Dose Admin Acetaminophen 650 mg 02/11/20 19:01 02/12/20 17:00 Tylenol PO 650 mg Q4H PRN Administration Pain MILD(1-3)/Fever >100.5/ADAMS Lipase/Protease/Amylase 1 each 02/20/20 10:[address] 10,500 Unit FEEDTUBE PRN PRN For Clogged Feeding Tube Dextrose 50 ml 02/19/20 14:58 D50w (25gm) Syringe IV Q30MIN PRN Hypoglycemia Protocol Famotidine 20 mg 02/17/20 10:00 02/23/20 09:36 Pepcid IV 20 mg DAILY NADER Administration Fentanyl 50 mcg 02/19/20 15:30 02/19/20 15:29 Sublimaze IV 50 mcg Q10MIN PRN Administration ANALGESIA Hydromorphone HCl 1 mg 02/14/20 13:00 02/19/20 12:10 Dilaudid IV 1 mg Q3H PRN Administration Pain , Severe (7-10) Hydrophilic Ointment 1 applic 02/13/20 19:41 Vaseline Lip Therapy TP Q2HR PRN Dry Lips Heparin Sodium/Sodium Chloride 25,000 unit in 500 mls @ 20 mls/hr 02/13/20 20:00 02/23/20 03:47 Heparin/ 0.45% Nacl-25,000 Unit/500 Ml IV 0 units/hr TITR NADER 0 mls/hr Titration Protocol 1,000 UNITS/HR Diltiazem HCl 100 mg in 100 mls @ 2.5 mls/hr 02/16/20 12:19 02/22/20 16:35 Cardizem/D5w 100mg/100ml IV 2.5 mg/hr TITR NADER 2.5 mls/hr Administration 2.5 MG/HR Amiodarone HCl 900 mg/ 500 mls @ 33.333 mls/hr 02/19/20 11:00 02/22/20 11:57 Dextrose IV 0.5 mg/min DIRECT NADER 16.667 mls/hr Administration Protocol 1 MG/MIN Fentanyl Citrate 2,000 mcg in 100 mls @ 4.05 mls/hr 02/19/20 16:00 02/23/20 05:20 Fentanyl Drip Premix IV 2 mcg/kg/hr TITR NADER 8.1 mls/hr Titration Protocol 1 MCG/KG/HR Sodium Chloride 100 mls @ 999 mls/hr 02/22/20 12:30 Nacl 0.9% IV FABIOLA PRN Hypotension Amino Acids/Electrolytes/Dextrose 1,800 mls @ 75 mls/hr 02/22/20 20:00 02/21 21:11 Tpn Adult IV 02/23/20 19:59 75 mls/hr DAILY@2000 [facility] Administration Protocol Insulin Glargine 35 units 02/23/20 22:00 Lantus SUB-Q BID [facility] Insulin Human Lispro 0 unit 02/19/20 18:00 02/23/20 06:56 Humalog SUB-Q 8 unit Q6HR [facility] Administration Protocol Labetalol HCl 20 mg 02/13/20 18:00 02/23/20 08:17 Labetalol IV 20 mg Q4H PRN Administration SBP >150 Metoprolol Tartrate 2.5 mg 02/13/20 18:00 02/18/20 04:41 Metoprolol IV 2.5 mg Q6HR PRN Administration HR >130 Multi-Ingred Cream/Lotion/Oil/Oint 1 applic 02/13/20 19:41 Artificial Tears Ophth Oint OU Q4HR PRN Dry Eye(s) Sertraline HCl 50 mg 02/23/20 10:00 02/23/20 09:36 Zoloft PO 50 mg QDAY NADER Administration Simple Syrup 15 ml 02/20/20 10:28 Simple Syrup FEEDTUBE PRN PRN Hypoglycemia Simple Syrup 30 ml 02/20/20 10:28 Simple Syrup FEEDTUBE PRN PRN Hypoglycemia Sodium Bicarbonate 325 mg 02/20/20 10:28 Sodium Bicarbonate FEEDTUBE PRN PRN For Clogged Feeding Tube Sodium Chloride 10 ml 02/11/20 22:00 02/22/20 21:15 Sodium Chloride Flush Syringe 10 Ml IV 10 ml BID NADER Administration Sodium Chloride 10 ml 02/11/20 19:01 02/15/20 22:43 Sodium Chloride Flush Syringe 10 Ml IV 10 ml PRN PRN Administration LINE FLUSH Vancomycin HCl 125 mg 02/20/20 15:00 02/23/20 06:52 Vancomycin Po PO 02/27/20 06:01 125 mg Q6HR NADER Administration Nutrition/Malnutrition Assess - Dietary Evaluation Nutrition/Malnutrition Findings: Nutrition Notes Start: 02/14/20 09:49 Freq: Status: Active Protocol: Document 02/22/20 10:34 LP (Rec: 02/22/20 10:38 LP [id number]) Nutrition Notes Initial or Follow up Reassessment Current Diagnosis Acute Kidney Injury,Decubitus( Pressure Ulcer),Diabetes, Hypertension,Hyperlipidemia Other Pertinent Diagnosis ischemic bowel with gangrene s /p exp lap, Current Diet CPN at 84ml/hr + Vital 1.2 at 10ml/hr Labs/Tests Reviewed Pertinent Medications Reviewed Height 5 ft 5 in Weight 93.6 kg Kaplan Body Weight (kg) 56.81 BMI 34.3 Weight Status Obese Subjective/Other Information CPN day 5 continue. PT TF stopped for high residual and currently not running. HD yesterday. Percent of energy/protein needs met: 50%/89% Burn Absent Trauma Absent Current % PO Negligible Minimum of two criteria No #2 Nutrition Diagnosis Inadequate oral intake Diagnosis Progress(for reassessment Continues documentation) #1 Nutrition Diagnosis Altered GI function Diagnosis Progress(for reassessment Continues documentation) Is patient on ventilator? Yes Is Patient Ambulatory and/or Out of Bed No REE-([facility]-confined to bed) 9870.328 Calculation Used for Recommendations [facility] Additional Notes Pro needs 1.2-2g/k-140g/ day Fluid needs 1ml/kcal Nutrition Intervention Change Diet Order: TPN and TF Nutrition Support: CPN at 75ml/hr: 4.7% amino acid, 100mEq Na, 63mEq K, Chloride:Acetate 50: 50, MVI Vital 1.2 at 10ml/hr per MD Kcal 761 Protein (gm) 84 Carbohydrates (gm) 125 Fat (gm) 0 Fluid (mL) 1,800 Fiber (gm) 0 Goal #1 Meet at least 75% of energy and protein needs Anticipated Discharge Needs: Unable to identify at this time Follow-Up By: 02/23/20 Additional Comments Labs in AM: BMP
--- NOTE | 2020-02-23 11:58 | Progress Note ---
Assessment and Plan Atrial fibrillation, paroxysmal on low dose IV Cardizem and IV amiodarone. echocardiogram showed normal left ventricular systolic function with ejection fraction 60 to 65%. 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 Subjective Date of service: 02/23/20 Principal diagnosis: Ischemic Bowel Interval history: No cardiac events overnight. Remains intubated. Afib with a well controlled ventricular rate on telemetry. Objective Vital Signs Temp Pulse Pulse Resp BP Pulse Ox Pulse Ox 02/23/20 10:00 74 127/68 02/23/20 09:50 98.3 F 66 16 147/61 100 02/23/20 09:45 71 159/86 02/23/20 09:35 66 137/59 02/23/20 08:30 62 14 168/104 100 02/23/20 08:17 86 190/90 02/23/20 08:15 98.5 F 94 H 16 152/59 100 02/23/20 08:06 94 H 209/96 100 02/23/20 08:00 98.6 F 97 H 17 152/59 100 02/23/20 07:45 98 F 96 H 17 164/70 02/23/20 07:30 84 19 164/70 100 02/23/20 07:15 98.2 F 97 H 15 153/82 100 02/23/20 07:00 89 16 151/75 100 02/23/20 06:54 98.5 F 87 16 151/75 100 02/23/20 06:37 99 F 02/23/20 06:30 98 H 14 159/78 100 02/23/20 06:25 99 F 97 H 16 159/78 100 02/23/20 06:15 113 H 15 154/97 99 02/23/20 06:00 96 H 16 136/70 02/23/20 05:55 99 F 94 H 16 136/70 100 02/23/20 05:46 94 H 16 134/68 100 02/23/20 05:30 108 H 17 169/76 02/23/20 05:25 98.8 F 103 H 16 169/76 02/23/20 05:16 117 H 14 161/88 100 02/23/20 05:00 111 H 18 157/78 100 02/23/20 04:55 99.1 F 97 H 16 154/85 100 02/23/20 04:45 96 H 14 151/86 100 02/23/20 04:30 107 H 16 154/73 99 02/23/20 04:16 109 H 15 154/73 100 02/23/20 04:00 99.1 F 93 H 18 127/59 100 02/23/20 03:45 86 14 127/59 100 02/23/20 03:30 99 H 15 121/76 100 02/23/20 03:15 102 H 13 125/84 99 02/23/20 03:00 105 H 12 127/71 100 02/23/20 02:45 88 12 127/71 100 02/23/20 02:30 78 16 112/63 100 02/23/20 02:15 80 16 120/60 100 02/23/20 02:00 76 15 149/71 100 02/23/20 01:45 99 H 11 L 143/73 100 02/23/20 01:30 92 H 15 144/79 100 02/23/20 01:00 96 H 12 146/101 100 02/23/20 00:45 85 2 L 152/83 100 02/23/20 00:30 95 H 14 132/67 100 02/23/20 00:00 98.3 F 85 17 152/89 100 02/22/20 23:30 86 17 147/87 100 02/22/20 23:06 79 16 134/57 100 02/22/20 23:00 85 16 152/83 100 02/22/20 22:59 95 H 14 143/83 100 02/22/20 22:30 91 H 17 152/85 100 02/22/20 22:00 89 15 147/75 100 02/22/20 21:30 86 16 134/81 100 02/22/20 21:00 74 14 119/55 100 02/22/20 20:30 74 17 127/60 100 02/22/20 20:00 98.7 F 74 15 129/51 100 02/22/20 19:30 77 16 136/77 100 02/22/20 19:15 101 H 131/75 100 02/22/20 19:00 82 15 143/61 100 02/22/20 18:30 86 14 117/61 02/22/20 18:00 69 17 88/57 100 02/22/20 17:46 78 18 79/54 99 02/22/20 17:30 68 17 93/54 99 02/22/20 17:16 69 15 93/54 99 02/22/20 17:00 113 H 16 152/72 99 02/22/20 16:57 118 H 165/89 02/22/20 16:45 115 H 14 165/89 99 02/22/20 16:30 118 H 16 134/78 100 02/22/20 16:15 117 H 13 162/69 99 02/22/20 16:00 119 H 119 H 16 156/84 99 02/22/20 15:45 118 H 14 160/81 99 02/22/20 15:30 118 H 16 159/81 99 02/22/20 15:22 113 H 16 166/83 100 02/22/20 15:15 117 H 17 157/86 99 02/22/20 15:10 98.6 F 02/22/20 15:00 116 H 12 148/89 100 02/22/20 14:46 115 H 17 166/83 100 02/22/20 14:30 114 H 14 126/76 99 02/22/20 14:15 114 H 15 135/75 99 02/22/20 14:00 115 H 14 134/76 100 02/22/20 13:45 110 H 8 L 134/76 99 02/22/20 13:30 117 H 14 140/81 99 02/22/20 13:15 116 H 12 154/84 99 02/22/20 13:00 117 H 14 167/85 99 02/22/20 12:45 117 H 11 L 151/83 99 02/22/20 12:30 117 H 12 159/78 99 02/22/20 12:15 115 H 12 154/85 99 02/22/20 12:00 98.6 F 113 H 113 H 14 149/88 99 Pulse Ox 02/23/20 10:00 02/23/20 09:50 100 02/23/20 09:45 02/23/20 09:35 02/23/20 08:30 02/23/20 08:17 02/23/20 08:15 02/23/20 08:06 02/23/20 08:00 02/23/20 07:45 02/23/20 07:30 02/23/20 07:15 02/23/20 07:00 02/23/20 06:54 02/23/20 06:37 02/23/20 06:30 02/23/20 06:25 02/23/20 06:15 02/23/20 06:00 02/23/20 05:55 02/23/20 05:46 02/23/20 05:30 02/23/20 05:25 02/23/20 05:16 02/23/20 05:00 02/23/20 04:55 02/23/20 04:45 02/23/20 04:30 02/23/20 04:16 02/23/20 04:00 02/23/20 03:45 02/23/20 03:30 02/23/20 03:15 02/23/20 03:00 02/23/20 02:45 02/23/20 02:30 02/23/20 02:15 02/23/20 02:00 02/23/20 01:45 02/23/20 01:30 02/23/20 01:00 02/23/20 00:45 02/23/20 00:30 02/23/20 00:00 02/22/20 23:30 02/22/20 23:06 02/22/20 23:00 02/22/20 22:59 02/22/20 22:30 02/22/20 22:00 02/22/20 21:30 02/22/20 21:00 02/22/20 20:30 02/22/20 20:00 02/22/20 19:30 02/22/20 19:15 02/22/20 19:00 02/22/20 18:30 02/22/20 18:00 02/22/20 17:46 02/22/20 17:30 02/22/20 17:16 02/22/20 17:00 02/22/20 16:57 02/22/20 16:45 02/22/20 16:30 02/22/20 16:15 02/22/20 16:00 02/22/20 15:45 02/22/20 15:30 02/22/20 15:22 02/22/20 15:15 02/22/20 15:10 02/22/20 15:00 02/22/20 14:46 02/22/20 14:30 02/22/20 14:15 02/22/20 14:00 02/22/20 13:45 02/22/20 13:30 02/22/20 13:15 02/22/20 13:00 02/22/20 12:45 02/22/20 12:30 02/22/20 12:15 02/22/20 12:00 - Physical Examination General: Other (intubated) Cardiac: Positive: irregularly irregular Abdomen: Positive: Distended (POST OP) - Labs and Meds CBC 02/23/20 Range/Units 02:55 WBC 25.6 H (4.5-11.0) K/mm3 RBC 1.86 L (3.65-5.03) M/mm3 Hgb 5.7 L* (10.1-14.3) gm/dl Hct 17.3 L* (30.3-42.9) % Plt Count 165 (140-440) K/mm3 Comprehensive Metabolic Panel 02/23/20 Range/Units 02:55 Sodium 130 L (137-145) mmol/L Potassium 4.2 (3.6-5.0) mmol/L Chloride 92.8 L (98-107) mmol/L Carbon Dioxide 22 (22-30) mmol/L BUN 94 H (7-17) mg/dL Creatinine 4.7 H (0.7-1.2) mg/dL Glucose 293 H (65-100) mg/dL Calcium 8.4 (8.4-10.2) mg/dL
[2020-02-23 13:27] LABS: Hematocrit 24.4 % (30.3-42.9); Hemoglobin 8.3 gm/dl (10.1-14.3); Mean Corpuscular HGB Conc 34 % (30-34); Mean Corpuscular Volume 93 fl (79-97); Platelet Count 125 K/mm3 (140-440); Red Blood Count 2.61 M/mm3 (3.65-5.03); Red Cell Distribution Width 14.7 % (13.2-15.2)
--- NOTE | 2020-02-23 13:39 | Progress Note ---
Assessment and Plan Cultures: Blood culture 02/11/2020 no growth today Sputum culture 02/12/19 no growth today Sputum culture 02/13/19 usual resp sulaiman Blood culture 02/19/2020 no growth Cdiff toxin PCR Positive urine culture 02/19/2020 10-100K mult A/P: 74-year-old female past medical history hypertension, diabetes, mitral valve prolapse, hyperlipidemia admitted with acute sepsis and abdominal pain #Acute sepsis: likely due to ischemic bowel. Leukocytosis up today likely reactive due to severe anemia, baseline leukocytosis from UTI rather than C diff. 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 S/p exploratory laparotomy, enterocolonic anastamosis, closure of abdomen, application of wound vac on 02/15. on TPN #Respiratory failure: on BIPAP #Presumed infected renal cyst #Diabetes: Tight glycemic control for best outcomes #Diarrhea: resolved prior to presentation, doubt C diff, likely from ischemic bowel. #LITZY on CKD: Renally adjust antibiotics, worsening #Anemia/thrombocytopenia: from sepsis, severe anemia now, anticoagulation on hold. #Diarrhea? Cdiff toxin PCR Positive, can be colinization rather than patogenic Cdiff, should have a Cdiff EIA not available unfortunately. #UTI: corcoran replaced for I+O. #DVT on heparin gtt #RVR Afib on cardizem and amiodarone Recs: -eval for severe anemia -continue vancomycin 125 mg QID day 4 of 7 - wbc already improved so I believe this +Cdiff PCR may be more colonizer (carrier) than pathogenic -stop cefepime and flagyl day 8 -monitor leukocytosis, platelets Will follow. Jo-Ann Mccray MD Infectious Diseases [employer] [facility] M [phone] O [phone] Subjective Date of service: 02/23/20 Principal diagnosis: Ischemic Bowel Interval history: Remains intubated alert on BIPAP no fever on cardizem gtt, amio gtt, heparin gtt and TPN Objective - Exam Narrative Exam: Constitutional: alert intubated on SBT Head, Ears, Nose: Normocephalic, atraumatic. Eyes: Conjunctivae/corneas clear. No icterus. No ptosis. Neck: Supple, no meningeal signs Oral: +ETT Cardiovascular: tachycardic Respiratory: Good air entry, clear to auscultation bilaterally GI: Soft, midline wound with VAC. Musculoskeletal:yareli arm edema Skin: No rash or abscess Hem/Lymphatic: No palpable cervical or supraclavicular nodes. No lymphangitis Psych: no agitated Neurological: alert left PICC rectal tube with black stool corcoran - Constitutional Vitals: Vital Signs Temp Pulse Resp BP Pulse Ox 98.6 F 74 16 168/66 100 02/23/20 12:29 02/23/20 12:44 02/23/20 12:29 02/23/20 12:44 02/23/20 12:44 Temperature -Last 24 Hours Temperature 98.6 F Temperature 98.6 F Temperature 98.3 F Temperature 98.5 F Temperature 98.6 F Temperature 98 F Temperature 98.2 F Temperature 98.5 F Temperature 99 F Temperature 99 F Temperature 99 F Temperature 98.8 F Temperature 99.1 F Temperature 99.1 F Temperature 98.3 F Temperature 98.7 F Temperature 98.6 F - Labs CBC & Chem 7: 02/23/20 02:55 02/23/20 02:55 Labs: Abnormal lab results 02/21/20 02/22/20 02/23/20 Range/Units 06:00 17:26 00:04 WBC (4.5-11.0) K/mm3 RBC (3.65-5.03) M/mm3 Hgb (10.1-14.3) gm/dl Hct (30.3-42.9) % RDW (13.2-15.2) % Seg Neuts % (Manual) (40.0-70.0) % Lymphocytes % (Manual) (13.4-35.0) % Nucleated RBC % (0.0-0.9) % Seg Neutrophils # Man (1.8-7.7) K/mm3 Monocytes # (Manual) (0.0-0.8) K/mm3 Heparin Anti-Xa Level (0.3-0.7) U.I./ml Sodium (137-145) mmol/L Chloride (98-107) mmol/L BUN (7-17) mg/dL Creatinine (0.7-1.2) mg/dL Glucose (65-100) mg/dL POC Glucose 356 H 359 H (70-105) Crossmatch See Detail 02/23/20 02/23/20 02/23/20 Range/Units 02:55 02:55 02:55 WBC 25.6 H (4.5-11.0) K/mm3 RBC 1.86 L (3.65-5.03) M/mm3 Hgb 5.7 L* (10.1-14.3) gm/dl Hct 17.3 L* (30.3-42.9) % RDW 16.0 H (13.2-15.2) % Seg Neuts % (Manual) 80.5 H (40.0-70.0) % Lymphocytes % (Manual) 9.5 L (13.4-35.0) % Nucleated RBC % 1.0 H (0.0-0.9) % Seg Neutrophils # Man 20.6 H (1.8-7.7) K/mm3 Monocytes # (Manual) 1.5 H (0.0-0.8) K/mm3 Heparin Anti-Xa Level 0.15 L (0.3-0.7) U.I./ml Sodium 130 L (137-145) mmol/L Chloride 92.8 L (98-107) mmol/L BUN 94 H (7-17) mg/dL Creatinine 4.7 H (0.7-1.2) mg/dL Glucose 293 H (65-100) mg/dL POC Glucose (70-105) Crossmatch 02/23/20 Range/Units 05:33 WBC (4.5-11.0) K/mm3 RBC (3.65-5.03) M/mm3 Hgb (10.1-14.3) gm/dl Hct (30.3-42.9) % RDW (13.2-15.2) % Seg Neuts % (Manual) (40.0-70.0) % Lymphocytes % (Manual) (13.4-35.0) % Nucleated RBC % (0.0-0.9) % Seg Neutrophils # Man (1.8-7.7) K/mm3 Monocytes # (Manual) (0.0-0.8) K/mm3 Heparin Anti-Xa Level (0.3-0.7) U.I./ml Sodium (137-145) mmol/L Chloride (98-107) mmol/L BUN (7-17) mg/dL Creatinine (0.7-1.2) mg/dL Glucose (65-100) mg/dL POC Glucose 330 H (70-105) Crossmatch
[2020-02-23] MEDS: dilTIAZem 30 MG TAB PO SCH ×3 (13:58→23:12)
[2020-02-23] MEDS: fentaNYL DRIP Premix 2,000 MCG/100 ML BAG IV SCH ×2 (13:59→23:50)
[2020-02-23] MEDS ORDERED: TOTAL PARENTERAL NUTRITION 1,800 ML IV SCH (20:00)
[2020-02-24] MEDS: INSULIN LISPRO 100 UNIT/ML SUB-Q SCH ×4 (05:56→23:28)
[2020-02-24] MEDS: dilTIAZem 30 MG TAB PO SCH ×4 (05:56→23:27)
[2020-02-24] MEDS: VANCOMYCIN 250 MG/10 ML ORAL LIQD PO SCH ×4 (05:57→23:26)
--- NOTE | 2020-02-24 06:41 | Progress Note ---
Assessment and Plan Cultures: Blood culture 02/11/2020 no growth today Sputum culture 02/12/19 no growth today Sputum culture 02/13/19 usual resp sulaiman Blood culture 02/19/2020 no growth Cdiff toxin PCR Positive urine culture 02/19/2020 10-100K mult A/P: 74-year-old female past medical history hypertension, diabetes, mitral valve prolapse, hyperlipidemia admitted with acute sepsis and abdominal pain #Acute sepsis: likely due to ischemic bowel. Leukocytosis better after transfusion today likely reactive due to severe anemia, baseline leukocytosis from UTI rather than C diff. 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 S/p exploratory laparotomy, enterocolonic anastamosis, closure of abdomen, application of wound vac on 02/15. on TPN #Respiratory failure: on BIPAP #Presumed infected renal cyst #Diabetes: Tight glycemic control for best outcomes #Diarrhea: resolved prior to presentation, doubt C diff, likely from ischemic bowel. #LITZY on CKD: Renally adjust antibiotics, worsening #Anemia/thrombocytopenia: from sepsis, severe anemia now, anticoagulation on hold. #Diarrhea? Cdiff toxin PCR Positive, can be colinization rather than patogenic Cdiff, should have a Cdiff EIA not available unfortunately. #UTI: corcoran replaced for I+O. #DVT on heparin gtt #RVR Afib on cardizem and amiodarone Recs: -repeat blood cx today -continue vancomycin 125 mg QID day 4 of 7 - wbc already improved so I believe this +Cdiff PCR may be more colonizer (carrier) than pathogenic -s/p cefepime and flagyl day 8 -monitor leukocytosis, platelets Will follow. Jo-Ann Mccray MD Infectious Diseases Chief Of Internal Medicine [facility] M [phone] O [phone] Subjective Date of service: 02/24/20 Principal diagnosis: Ischemic Bowel Interval history: Remains intubated alert on BIPAP no fever on cardizem gtt, amio gtt, heparin gtt and TPN Objective - Constitutional Vitals: Vital Signs Temp Pulse Resp BP Pulse Ox 98.8 F 122 H 15 145/84 98 02/24/20 03:41 02/24/20 05:56 02/24/20 04:00 02/24/20 05:56 02/24/20 04:00 Temperature -Last 24 Hours Temperature 98.8 F Temperature 98.9 F Temperature 98.8 F Temperature 98 F Temperature 98.7 F Temperature 98.6 F Temperature 98.6 F Temperature 98.3 F Temperature 98.5 F Temperature 98 F Temperature 98.6 F Temperature 98.5 F Temperature 98.6 F Temperature 98 F Temperature 98.2 F Temperature 98.5 F - Labs CBC & Chem 7: 02/24/20 05:40 02/24/20 09:05 Labs: Abnormal lab results 02/21/20 02/23/20 02/23/20 Range/Units 06:00 12:03 13:13 WBC 24.2 H (4.5-11.0) K/mm3 RBC 2.61 L (3.65-5.03) M/mm3 Hgb 8.3 L (10.1-14.3) gm/dl Hct 24.4 L D (30.3-42.9) % Plt Count 125 L (140-440) K/mm3 POC Glucose 310 H (70-105) Crossmatch See Detail 02/23/20 02/23/20 02/24/20 Range/Units 18:34 22:28 05:25 WBC (4.5-11.0) K/mm3 RBC (3.65-5.03) M/mm3 Hgb (10.1-14.3) gm/dl Hct (30.3-42.9) % Plt Count (140-440) K/mm3 POC Glucose 337 H 314 H 307 H (70-105) Crossmatch
[2020-02-24 07:50] LABS: Hematocrit 23.4 % (30.3-42.9); Hemoglobin 7.3 gm/dl (10.1-14.3); Mean Corpuscular HGB Conc 31 % (30-34); Mean Corpuscular Volume 97 fl (79-97); Platelet Count 120 K/mm3 (140-440); Red Cell Distribution Width 15.8 % (13.2-15.2)
[2020-02-24 08:37] LABS: Calcium 8.1 mg/dL (8.4-10.2)
--- NOTE | 2020-02-24 09:14 | Progress Note ---
History Interval history: I have seen and examined the patient at the bedside in ICU this morning Patient's chart medications tests and reports reviewed Patient remains intubated on ventilatory support No new events reported by the nursing staff Vital signs reviewed Hospitalist Physical - Constitutional Vitals: Temp Pulse Resp BP Pulse Ox 98.8 F 128 H 13 175/81 91 02/24/20 03:41 02/24/20 08:30 02/24/20 08:30 02/24/20 08:30 02/24/20 08:30 General appearance: Present: mild distress, well-nourished, obese, other (Intubated, on vent) - EENT Eyes: Present: PERRL, EOM intact - Neck Neck: Present: supple, normal ROM - Respiratory Respiratory effort: normal Respiratory: bilateral: diminished, rhonchi, negative: rales, wheezing - Cardiovascular Rhythm: regular Heart Sounds: Present: S1 & S2 - Extremities Extremities: no ischemia, No edema - Abdominal General gastrointestinal: soft, non-tender, non-distended, normal bowel sounds - Integumentary Integumentary: Present: clear, warm - Psychiatric Psychiatric: appropriate mood/affect, cooperative - Neurologic Neurologic: moves all extremities HEART Score - HEART Score Troponin: Troponin T < 0.010 ng/mL (0.00-0.029) 02/11/20 15:27 Results - Labs CBC & Chem 7: 02/24/20 05:40 02/24/20 09:05 Labs: Laboratory Last Values WBC 21.0 K/mm3 (4.5-11.0) H 02/24/20 05:40 RBC 2.40 M/mm3 (3.65-5.03) L 02/24/20 05:40 Hgb 7.3 gm/dl (10.1-14.3) L 02/24/20 05:40 Hct 23.4 % (30.3-42.9) L 02/24/20 05:40 MCV 97 fl (79-97) 02/24/20 05:40 MCH 30 pg (28-32) 02/24/20 05:40 MCHC 31 % (30-34) 02/24/20 05:40 RDW 15.8 % (13.2-15.2) H 02/24/20 05:40 Plt Count 120 K/mm3 (140-440) L 02/24/20 05:40 Add Manual Diff Complete 02/23/20 02:55 Total Counted 200 02/23/20 02:55 Seg Neutrophils % Operations Team Leader 02/14/20 04:29 Seg Neuts % (Manual) 80.5 % (40.0-70.0) H 02/23/20 02:55 Band Neutrophils % 2.5 % 02/23/20 02:55 Lymphocytes % (Manual) 9.5 % (13.4-35.0) L 02/23/20 02:55 Reactive Lymphs % (Man) 1.0 % 02/23/20 02:55 Monocytes % (Manual) 6.0 % (0.0-7.3) 02/23/20 02:55 Eosinophils % (Manual) 0.5 % (0.0-4.3) 02/23/20 02:55 Basophils % (Manual) 0 % (0.0-1.8) 02/23/20 02:55 Metamyelocytes % 0 % 02/23/20 02:55 Myelocytes % 0 % 02/23/20 02:55 Promyelocytes % 0 % 02/23/20 02:55 Blast Cells % 0 % 02/23/20 02:55 Nucleated RBC % 1.0 % (0.0-0.9) H 02/23/20 02:55 Seg Neutrophils # Man 20.6 K/mm3 (1.8-7.7) H 02/23/20 02:55 Band Neutrophils # 0.6 K/mm3 02/23/20 02:55 Lymphocytes # (Manual) 2.4 K/mm3 (1.2-5.4) 02/23/20 02:55 Abs React Lymphs (Man) 0.3 K/mm3 02/23/20 02:55 Monocytes # (Manual) 1.5 K/mm3 (0.0-0.8) H 02/23/20 02:55 Eosinophils # (Manual) 0.1 K/mm3 (0.0-0.4) 02/23/20 02:55 Basophils # (Manual) 0.0 K/mm3 (0.0-0.1) 02/23/20 02:55 Metamyelocytes # 0.0 K/mm3 02/23/20 02:55 Myelocytes # 0.0 K/mm3 02/23/20 02:55 Promyelocytes # 0.0 K/mm3 02/23/20 02:55 Blast Cells # 0.0 K/mm3 02/23/20 02:55 WBC Morphology Not Reportable 02/23/20 02:55 Hypersegmented Neuts Not Reportable 02/23/20 02:55 Hyposegmented Neuts Not Reportable 02/23/20 02:55 Hypogranular Neuts Not Reportable 02/23/20 02:55 Smudge Cells Not Reportable 02/23/20 02:55 Toxic Granulation Not Reportable 02/23/20 02:55 Toxic Vacuolation Not Reportable 02/23/20 02:55 Dohle Bodies Not Reportable 02/23/20 02:55 Pelger-Huet Anomaly Not Reportable 02/23/20 02:55 Jyoti Rods Not Reportable 02/23/20 02:55 Platelet Estimate Consistent w auto 02/23/20 02:55 Clumped Platelets Not Reportable 02/23/20 02:55 Plt Clumps, EDTA Not Reportable 02/23/20 02:55 Large Platelets Not Reportable 02/23/20 02:55 Giant Platelets Not Reportable 02/23/20 02:55 Platelet Satelliting Not Reportable 02/23/20 02:55 Plt Morphology Comment Not Reportable 02/23/20 02:55 RBC Morphology Not Reportable 02/23/20 02:55 Dimorphic RBCs Not Reportable 02/23/20 02:55 Polychromasia Not Reportable 02/23/20 02:55 Hypochromasia Not Reportable 02/23/20 02:55 Poikilocytosis Not Reportable 02/23/20 02:55 Anisocytosis 1+ 02/23/20 02:55 Microcytosis Not Reportable 02/23/20 02:55 Macrocytosis Not Reportable 02/23/20 02:55 Spherocytes Not Reportable 02/23/20 02:55 Pappenheimer Bodies Not Reportable 02/23/20 02:55 Sickle Cells Not Reportable 02/23/20 02:55 Target Cells Not Reportable 02/23/20 02:55 Tear Drop Cells Not Reportable 02/23/20 02:55 Ovalocytes Not Reportable 02/23/20 02:55 Helmet Cells Not Reportable 02/23/20 02:55 Garcia-Bier Bodies Not Reportable 02/23/20 02:55 [place] Rings Not Reportable 02/23/20 02:55 [place] Cells Not Reportable 02/23/20 02:55 Bite Cells Not Reportable 02/23/20 02:55 Crenated Cell Not Reportable 02/23/20 02:55 Elliptocytes Not Reportable 02/23/20 02:55 Acanthocytes (Spur) Not Reportable 02/23/20 02:55 Rouleaux Not Reportable 02/23/20 02:55 Hemoglobin C Crystals Not Reportable 02/23/20 02:55 Schistocytes Not Reportable 02/23/20 02:55 Malaria parasites Not Reportable 02/23/20 02:55 Babar Bodies Not Reportable 02/23/20 02:55 Hem Pathologist Commnt No 02/23/20 02:55 PT 16.9 Sec. (12.2-14.9) H 02/13/20 20:10 INR 1.41 (0.87-1.13) H 02/13/20 20:10 APTT 35.3 Sec. (24.2-36.6) 02/13/20 20:10 Heparin Anti-Xa Level 0.15 U.I./ml (0.3-0.7) L 02/23/20 02:55 ABG pH 7.318 pH Units (7.350-7.450) L 02/21/20 04:16 ABG pCO2 42.7 mm Hg 02/21/20 04:16 ABG pO2 100.0 mm Hg (80.0-90.0) H 02/21/20 04:16 ABG HCO3 21.4 mmol/L (20.0-26.0) 02/21/20 04:16 ABG O2 Saturation 97.2 % (95.0-99.0) 02/21/20 04:16 ABG O2 Content 12.3 (0.0-44) 02/21/20 04:16 ABG Base Excess -4.4 mmol/L (-2.0-3.0) L 02/21/20 04:16 ABG Hemoglobin 9.1 gm/dl (12.0-16.0) L 02/21/20 04:16 ABG Carboxyhemoglobin 1.5 % (0.0-5.0) 02/21/20 04:16 ABG Methemoglobin 0.7 % (0.0-1.5) 02/21/20 04:16 Oxyhemoglobin 95.2 % (95.0-99.0) 02/21/20 04:16 FiO2 30 % 02/21/20 04:16 Sodium 123 mmol/L (137-145) L D 02/24/20 05:40 Potassium 6.8 mmol/L (3.6-5.0) H* D 02/24/20 05:40 Chloride 88.1 mmol/L (98-107) L 02/24/20 05:40 Carbon Dioxide 19 mmol/L (22-30) L 02/24/20 05:40 Anion Gap 23 mmol/L 02/24/20 05:40 BUN 83 mg/dL (7-17) H 02/24/20 05:40 Creatinine 3.9 mg/dL (0.7-1.2) H 02/24/20 05:40 Estimated GFR 11 ml/min 02/24/20 05:40 BUN/Creatinine Ratio 21 % 02/24/20 05:40 Glucose 657 mg/dL (65-100) H* 02/24/20 05:40 POC Glucose 307 (70-105) H 02/24/20 05:25 Ketones Quantitative Negative (Negative) 02/13/20 14:51 Lactic Acid 0.70 mmol/L (0.7-2.0) 02/14/20 Unknown Calcium 8.1 mg/dL (8.4-10.2) L 02/24/20 05:40 Phosphorus 4.90 mg/dL (2.5-4.5) H 02/24/20 05:40 Magnesium 2.50 mg/dL (1.7-2.3) H 02/24/20 05:40 Total Bilirubin 0.20 mg/dL (0.1-1.2) 02/12/20 04:58 Direct Bilirubin < 0.2 mg/dL (0-0.2) 02/11/20 15:27 Indirect Bilirubin 0.2 mg/dL 02/11/20 15:27 AST 16 units/L (5-40) 02/12/20 04:58 ALT 24 units/L (7-56) 02/12/20 04:58 Alkaline Phosphatase 127 units/L (35-129) 02/12/20 04:58 Troponin T < 0.010 ng/mL (0.00-0.029) 02/11/20 15:27 Total Protein 7.0 g/dL (6.3-8.2) 02/12/20 04:58 Albumin 3.5 g/dL (3.9-5) L 02/12/20 04:58 Albumin/Globulin Ratio 1.0 % 02/12/20 04:58 Triglycerides 238 mg/dL (2-149) H 02/17/20 03:45 Lipase 60 units/L (13-60) 02/13/20 14:51 Urine Color Yellow (Yellow) 02/19/20 14:00 Urine Turbidity Cloudy (Clear) 02/19/20 14:00 Urine pH 5.0 (5.0-7.0) 02/19/20 14:00 Ur Specific [place] 1.007 (1.003-1.030) 02/19/20 14:00 Urine Protein 100 mg/dl mg/dL (Negative) 02/19/20 14:00 Urine Glucose (UA) >=500 mg/dL (Negative) 02/19/20 14:00 Urine Ketones Tr mg/dL (Negative) 02/19/20 14:00 Urine Blood Lg (Negative) 02/19/20 14:00 Urine Nitrite Neg (Negative) 02/19/20 14:00 Urine Bilirubin Neg (Negative) 02/19/20 14:00 Urine Urobilinogen < 2.0 mg/dL (<2.0) 02/19/20 14:00 Ur Leukocyte Esterase Lg (Negative) 02/19/20 14:00 Urine WBC (Auto) 166.0 /HPF (0.0-6.0) H 02/19/20 14:00 Urine RBC (Auto) 20.0 /HPF (0.0-6.0) 02/19/20 14:00 U Epithel Cells (Auto) 2.0 /HPF (0-13.0) 02/19/20 14:00 Urine Bacteria (Auto) 1+ /HPF (Negative) 02/19/20 14:00 Urine WBC Clumps 3+ /HPF 02/19/20 14:00 Urine Mucus Few /HPF 02/19/20 14:00 Urine Yeast (Budding) 3+ /HPF 02/19/20 14:00 Urine Eosinophils None seen (None Seen) 02/12/20 Unknown Urine Creatinine 35.3 mg/dL (0.1-20.0) H 02/12/20 Unknown Protein/Creatinin Ratio 22.55 02/12/20 Unknown Urine Total Protein 796 mg/dL (5-11.8) H 02/12/20 Unknown C. difficile Tox (PCR) Positive (Negative) 02/19/20 12:46 Hepatitis A IgM Ab Non-reactive (NonReactive) 02/21/20 10:30 Hep Bs Antigen Non-reactive (Negative) 02/21/20 10:30 Hep B Core IgM Ab Non-reactive (NonReactive) 02/21/20 10:30 Hepatitis C Antibody Non-reactive (NonReactive) 02/21/20 10:30 Blood Type O NEGATIVE 02/21/20 06:00 Antibody Screen Negative 02/21/20 06:00 Crossmatch See Detail 02/21/20 06:00 Microbiology: Microbiology 02/19/20 15:30 Peripheral/Venous Blood Culture - Preliminary NO GROWTH AFTER 4 DAYS 02/19/20 15:00 Peripheral/Venous Blood Culture - Preliminary NO GROWTH AFTER 4 DAYS - Diagnostic Impressions Diagnostic Impressions: Echocardiogram 02/13/20 18:02 Transthoracic Echocardiogram Indication: Afib BP: 101/70 HR: 128 Findings Left Ventricle: The left ventricular chamber size is normal. Mild to moderate concentric left ventricular hypertrophy is observed. Global left ventricular wall motion and contractility are within normal limits. Global left ventricular systolic function is normal. The estimated ejection fraction is 60-65%. Left Atrium: The left atrium is mild to moderately dilated. Right Ventricle: The right ventricular cavity size is normal. The right ventricular global systolic function is normal. Right Atrium: The right atrium appears normal. The interatrial septum appears normal. Aortic Valve: The aortic valve structure is normal. The aortic valve leaflets are mildly thickened. There is no evidence of aortic regurgitation. There is no evidence of aortic stenosis. Mitral Valve: The mitral valve leaflets appear normal. There is no evidence of mitral regurgitation. There is no evidence of mitral stenosis. Tricuspid Valve: The tricuspid valve leaflets are normal. There is mild to moderate tricuspid regurgitation. The right ventricular systolic pressure is calculated at 39 mmHg. There is evidence of pulmonary hypertension. There is no tricuspid stenosis. Pulmonic Valve: The pulmonic valve appears normal. There is no evidence of pulmonic regurgitation. There is no pulmonic stenosis. Pericardium: A pericardial effusion is visualized. There is a minimial pericardial effusion. A left pleural effusion is present. There is a moderate pleural effusion. Aorta: There is no dilatation of the ascending aorta. There is no dilatation of the aortic arch. There is no dilatation of the descending thoracic aorta. There is no dilatation of the aortic root. Venous: The inferior vena cava appears normal in size. Measurements Chambers 2D Name Value Normal Range IVSd (2D) 1.34 cm (0.6 - 1.1) LVPWd (2D) 1.35 cm (0.6 - 1.1) LVIDd (2D) 4.72 cm (3.7 - 5.6) LVIDs (2D) 3.28 cm (2 - 3.8) LV FS (2D) 30.38 % - EF Teichholz (2D) 57.75 % - Ao root diameter (2D) 3.02 cm (2 - 3.7) Volumes/Mass Name Value Normal Range LA ESV SP 4CH (A/L) 55.87 ml - LA ESV SP 2CH (A/L) 67.65 ml - LA ESV BP (A/L) 63.67 ml - LA ESV SP 4CH (MOD) 54.25 ml - LA ESV SP 2CH (MOD) 63.2 ml - LA ESV BP (MOD) 60.49 ml - LA ESV BP (MOD) index 34.18 ml/m2 - LV EDV SP 4CH (MOD) 70.96 ml - LV ESV SP 4CH (MOD) 23.49 ml - EF SP 4CH (MOD) 66.89 % - LV EDV SP 2CH (MOD) 61.41 ml - LV ESV SP 2CH (MOD) 27.43 ml - EF SP 2CH (MOD) 55.33 % - LV EDV BP 69.85 ml - LV ESV BP 26.44 ml - BP EF (MOD) 62.14 % - Aortic Valve Name Value Normal Range AV Vmax 1.29 m/sec - AV VTI 18.56 cm - AV peak gradient 6.69 mmHg - AV mean gradient 3.39 mmHg - LVOT diameter 1.95 cm - LVOT Vmax 1.14 m/sec - LVOT VTI 16.24 cm - LVOT peak gradient 5.21 mmHg - LVOT mean gradient 2.04 mmHg - SV LVOT 48.71 ml - TABATHA (continuity Vmax) 2.65 cm2 - TABATHA (continuity VTI) 2.62 cm2 - Ascending Ao 2.96 cm - Tricuspid Valve Name Value Normal Range TR Vmax 2.47 m/sec - TR peak gradient 24 mmHg - RAP 15 mmHg - RVSP 39 mmHg - Pulmonic Valve/Qp:Qs Name Value Normal Range PV Vmax 1.15 m/sec - PV peak gradient 5.33 mmHg - PV acceleration time 68.51 msec - Acevedo/IV: Voiding Method Indwelling Catheter IV Catheter Type [Right VAS Cath Internal Jugular] IV Catheter Type [Left Upper PICC Line arm] IV Catheter Type [Right INT / Saline Lock Antecubital] IV Catheter Type [Right Peripheral IV Forearm] IV Catheter Type [Left Forearm INT / Saline Lock ] IV Catheter Type [Right Hand] Peripheral IV Active Medications - Current Medications Current Medications: Generic Name Dose Route Start Last Admin Trade Name Freq PRN Reason Stop Dose Admin Acetaminophen 650 mg 02/11/20 19:01 02/12/20 17:00 Tylenol PO 650 mg Q4H PRN Administration Pain MILD(1-3)/Fever >100.5/ADAMS Amiodarone HCl 200 mg 02/24/20 10:00 Cordarone PO QDAY NADER Lipase/Protease/Amylase 1 each 02/20/20 10:[address] 10,500 Unit FEEDTUBE PRN PRN For Clogged Feeding Tube Dextrose 50 ml 02/19/20 14:58 D50w (25gm) Syringe IV Q30MIN PRN Hypoglycemia Protocol Diltiazem HCl 30 mg 02/23/20 12:00 02/24/20 05:56 Cardizem PO 30 mg Q6HR NADER Administration Famotidine 20 mg 02/24/20 10:00 Pepcid PO DAILY NADER Fentanyl 50 mcg 02/19/20 15:30 02/19/20 15:29 Sublimaze IV 50 mcg Q10MIN PRN Administration ANALGESIA Hydromorphone HCl 1 mg 02/14/20 13:00 02/19/20 12:10 Dilaudid IV 1 mg Q3H PRN Administration Pain , Severe (7-10) Hydrophilic Ointment 1 applic 02/13/20 19:41 Vaseline Lip Therapy TP Q2HR PRN Dry Lips Heparin Sodium/Sodium Chloride 25,000 unit in 500 mls @ 20 mls/hr 02/13/20 20:00 02/23/20 03:47 Heparin/ 0.45% Nacl-25,000 Unit/500 Ml IV 0 units/hr TITR NADER 0 mls/hr Titration Protocol 1,000 UNITS/HR Fentanyl Citrate 2,000 mcg in 100 mls @ 4.05 mls/hr 02/19/20 16:00 02/24/20 05:57 Fentanyl Drip Premix IV 2 mcg/kg/hr TITR NADER 8.1 mls/hr Titration Protocol 1 MCG/KG/HR Sodium Chloride 100 mls @ 999 mls/hr 02/22/20 12:30 Nacl 0.9% IV FABIOLA PRN Hypotension Amino Acids/Electrolytes/Dextrose 1,800 mls @ 75 mls/hr 02/23/20 20:00 02/23/20 20:36 Tpn Adult IV 02/24/20 19:59 75 mls/hr DAILY@2000 [facility] Administration Protocol Insulin Glargine 35 units 02/23/20 22:00 02/23/20 23:12 Lantus SUB-Q 35 units BID NADER Administration Insulin Glargine 10 units 02/24/20 10:00 Lantus SUB-Q 02/24/20 10:01 ONCE ONE Insulin Human Lispro 0 unit 02/19/20 18:00 02/24/20 05:56 Humalog SUB-Q 8 unit Q6HR NADER Administration Protocol Labetalol HCl 20 mg 02/13/20 18:00 02/24/20 08:29 Labetalol IV 20 mg Q4H PRN Administration SBP >150 Metoprolol Tartrate 2.5 mg 02/13/20 18:00 02/18/20 04:41 Metoprolol IV 2.5 mg Q6HR PRN Administration HR >130 Multi-Ingred Cream/Lotion/Oil/Oint 1 applic 02/13/20 19:41 Artificial Tears Ophth Oint OU Q4HR PRN Dry Eye(s) Sertraline HCl 50 mg 02/23/20 10:00 02/23/20 09:36 Zoloft PO 50 mg QDAY NADER Administration Simple Syrup 15 ml 02/20/20 10:28 Simple Syrup FEEDTUBE PRN PRN Hypoglycemia Simple Syrup 30 ml 02/20/20 10:28 Simple Syrup FEEDTUBE PRN PRN Hypoglycemia Sodium Bicarbonate 325 mg 02/20/20 10:28 Sodium Bicarbonate FEEDTUBE PRN PRN For Clogged Feeding Tube Sodium Chloride 10 ml 02/11/20 22:00 02/23/20 23:13 Sodium Chloride Flush Syringe 10 Ml IV 10 ml BID NADER Administration Sodium Chloride 10 ml 02/11/20 19:01 02/15/20 22:43 Sodium Chloride Flush Syringe 10 Ml IV 10 ml PRN PRN Administration LINE FLUSH Vancomycin HCl 125 mg 02/20/20 15:00 02/24/20 05:57 Vancomycin Po PO 02/27/20 06:01 125 mg Q6HR NADER Administration Nutrition/Malnutrition Assess - Dietary Evaluation Nutrition/Malnutrition Findings: Nutrition Notes Start: 02/14/20 09:49 Freq: Status: Active Protocol: Document 02/23/20 13:20 LP (Rec: 02/23/20 13:25 LP [id number]) Nutrition Notes Need for Assessment generated from: MD Order Initial or Follow up Reassessment Current Diagnosis Acute Kidney Injury,Decubitus( Pressure Ulcer),Diabetes, Hypertension,Hyperlipidemia Other Pertinent 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 Noted TF being stopped with 150ml residual and MD made RNs aware if > 250ml. TF increased to 15ml/hr. MD consult for TF . Percent of energy/protein needs met: 50%/89% Burn Absent Trauma Absent Current % PO Negligible Minimum of two criteria No #2 Nutrition Diagnosis Inadequate oral intake Diagnosis Progress(for reassessment Continues documentation) #1 Nutrition Diagnosis Altered GI function Diagnosis Progress(for reassessment Continues documentation) Is patient on ventilator? Yes Is Patient Ambulatory and/or Out of Bed No REE-([place]-St. Jeor-confined to bed) 1724.328 Calculation Used for Recommendations [place] Jeor Additional Notes Pro needs 1.2-2g/k-140g/ day Fluid needs 1ml/kcal Nutrition Intervention Change Diet Order: TPN and TF Nutrition Support: CPN at 75ml/hr: 4.7% dextrose, MVI Vital 1.2 at 15ml/hr per MD Vital 1.2 at 50ml/hr (goal rate) Flush with 100ml q4h Kcal 676 Protein (gm) 84 Carbohydrates (gm) 100 Fat (gm) 0 Fluid (mL) 1,800 Fiber (gm) 0 Goal #1 Meet at least 75% of energy and protein needs Anticipated Discharge Needs: Unable to identify at this time Follow-Up By: 02/24/20 Additional Comments Labs in AM: BMP, Mg, Phos
[2020-02-24] MEDS ORDERED: INSULIN GLARGINE 100 UNITS/ML SUB-Q ONE (10:00)
--- NOTE | 2020-02-24 10:06 | Progress Note ---
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 * leucocytosis * type 2 DM--uncontrolled * Acidosis * Hypokalemia * Hypocalcemia * Anemia * C diff + Plan: * Creatinine fairly stable off HD, remain hopeful for renal recovery with minimal HD needs * Tolerated HD well on 02/20 and 02/22 with reasonable UF * Hold HD today given HHS/DKA as likely cause of electrolyte abnormalities (now resolved); will plan for HD tomorrow for additional UF and electrolyte management in setting of ongoing extubation trials * Will continue HD as needed moving forward based on volume and electrolyte assessment * Will administer another high dose IV lasix bolus today on non-HD day to encourage ongoing volume removal and minimize HD UF needs * Acidosis stable now * Insulin control per primary * Continue iv abx per ID recs * Surgery recs appreciated * PRBC transfusion prn per primary, holding heparin gtt * Daily lytes; strict i/os * Avoid nephrotoxins * vasopressors prn Thank for involving in the care of this critically ill patient. We will follow closely with you; please do not hesitate to call me on my cell at for any renal related issues. High risk for decompensation given clinical status Subjective Date of service: 02/24/20 Principal diagnosis: Ischemic Bowel Interval history: Chart reviewed for 24 hour events Objective - Exam Narrative Exam: Gen: Intubated, opens eyes ENT: ETT in place CV: s1, S2, on dilt gtt, amio gtt Resp: on vent Abd: soft Ext: no c/c/e : corcoran with clear yellow urine Neuro: opens eye spontaneously - Vital Signs Vital signs: Vital Signs - 12hr 02/23/20 02/23/20 02/23/20 22:00 22:04 22:30 Temperature Pulse Rate 107 H 108 H 107 H Pulse Rate [ From Monitor] Respiratory 18 16 19 Rate Blood Pressure 154/95 189/105 169/79 O2 Sat by Pulse 99 99 98 Oximetry 02/23/20 02/23/20 02/23/20 23:00 23:07 23:12 Temperature Pulse Rate 120 H 107 H 100 H Pulse Rate [ From Monitor] Respiratory 13 2 L Rate Blood Pressure 189/102 154/95 170/96 O2 Sat by Pulse 97 99 Oximetry 02/23/20 02/23/20 02/24/20 23:28 23:30 00:00 Temperature 98.9 F Pulse Rate 107 H 85 Pulse Rate [ From Monitor] Respiratory 11 L 16 Rate Blood Pressure 154/74 108/54 O2 Sat by Pulse 99 98 Oximetry 02/24/20 02/24/20 02/24/20 00:12 00:30 01:00 Temperature Pulse Rate 81 92 H 81 Pulse Rate [ 81 From Monitor] Respiratory 16 18 Rate Blood Pressure 122/42 122/42 O2 Sat by Pulse 99 99 Oximetry 02/24/20 02/24/20 02/24/20 01:30 02:00 02:30 Temperature Pulse Rate 81 81 82 Pulse Rate [ From Monitor] Respiratory 16 15 16 Rate Blood Pressure 167/84 129/58 116/49 O2 Sat by Pulse 99 99 99 Oximetry 02/24/20 02/24/20 02/24/20 03:00 03:05 03:30 Temperature Pulse Rate 123 H 82 122 H Pulse Rate [ From Monitor] Respiratory 14 4 L 16 Rate Blood Pressure 163/84 116/49 170/90 O2 Sat by Pulse 99 99 98 Oximetry 02/24/20 02/24/20 02/24/20 03:41 04:00 04:26 Temperature 98.8 F Pulse Rate 111 H Pulse Rate [ 126 H From Monitor] Respiratory 15 Rate Blood Pressure 147/81 O2 Sat by Pulse 98 Oximetry 02/24/20 02/24/20 02/24/20 04:30 05:00 05:30 Temperature Pulse Rate 103 H 103 H 95 H Pulse Rate [ From Monitor] Respiratory 12 16 14 Rate Blood Pressure 140/82 140/71 116/59 O2 Sat by Pulse 98 99 97 Oximetry 02/24/20 02/24/20 02/24/20 05:56 06:00 06:30 Temperature Pulse Rate 122 H 122 H 123 H Pulse Rate [ From Monitor] Respiratory 18 15 Rate Blood Pressure 145/84 135/73 139/76 O2 Sat by Pulse 98 98 Oximetry 02/24/20 02/24/20 02/24/20 07:00 07:30 08:00 Temperature Pulse Rate 125 H 126 H 128 H Pulse Rate [ From Monitor] Respiratory 21 19 22 Rate Blood Pressure 153/80 158/72 187/89 O2 Sat by Pulse 98 99 Oximetry 02/24/20 02/24/20 02/24/20 08:12 08:29 08:30 Temperature Pulse Rate 126 H 127 H 128 H Pulse Rate [ From Monitor] Respiratory 18 13 Rate Blood Pressure 193/82 162/81 175/81 O2 Sat by Pulse 100 91 Oximetry - Lab 02/24/20 05:40 02/24/20 09:05 Most recent lab results ABG pH 7.318 pH Units (7.350-7.450) L 02/21/20 04:16 ABG pCO2 42.7 mm Hg 02/21/20 04:16 ABG pO2 100.0 mm Hg (80.0-90.0) H 02/21/20 04:16 ABG HCO3 21.4 mmol/L (20.0-26.0) 02/21/20 04:16 ABG O2 Saturation 97.2 % (95.0-99.0) 02/21/20 04:16 Calcium 8.1 mg/dL (8.4-10.2) L 02/24/20 05:40 Phosphorus 4.90 mg/dL (2.5-4.5) H 02/24/20 05:40 Magnesium 2.50 mg/dL (1.7-2.3) H 02/24/20 05:40 Urine Creatinine 35.3 mg/dL (0.1-20.0) H 02/12/20 Unknown Urine Total Protein 796 mg/dL (5-11.8) H 02/12/20 Unknown Medications & Allergies - Medications Allergies/Adverse Reactions: Allergies clindamycin Allergy (Verified 02/11/20 14:52) Hives Home Medications: Home Medications Medication Instructions Recorded Confirmed Last Taken Type Doxazosin [Cardura] 4 mg PO QDAY 02/11/20 02/11/20 02/10/20 History Hydralazine HCl 50 mg PO DAILY 02/11/20 02/11/20 02/10/20 History Metoprolol 25 mg PO DAILY 02/11/20 02/11/20 02/10/20 History Sertraline [Zoloft] 50 mg PO QDAY 02/11/20 02/11/20 02/10/20 History amLODIPine [Norvasc] 10 mg PO DAILY 02/11/20 02/11/20 02/10/20 History glipiZIDE 10 mg PO BID 02/11/20 02/11/20 02/10/20 History Active Medications: Generic Name Dose Route Start Last Admin Trade Name Freq PRN Reason Stop Dose Admin Acetaminophen 650 mg 02/11/20 19:01 02/12/20 17:00 Tylenol PO 650 mg Q4H PRN Administration Pain MILD(1-3)/Fever >100.5/ADAMS Amiodarone HCl 200 mg 02/24/20 10:00 Cordarone PO QDAY NADER Lipase/Protease/Amylase 1 each 02/20/20 10:[address] 10,500 Unit FEEDTUBE PRN PRN For Clogged Feeding Tube Dextrose 50 ml 02/19/20 14:58 D50w (25gm) Syringe IV Q30MIN PRN Hypoglycemia Protocol Diltiazem HCl 30 mg 02/23/20 12:00 02/24/20 05:56 Cardizem PO 30 mg Q6HR NADER Administration Famotidine 20 mg 02/24/20 10:00 Pepcid PO DAILY NADER Fentanyl 50 mcg 02/19/20 15:30 02/19/20 15:29 Sublimaze IV 50 mcg Q10MIN PRN Administration ANALGESIA Hydromorphone HCl 1 mg 02/14/20 13:00 02/19/20 12:10 Dilaudid IV 1 mg Q3H PRN Administration Pain , Severe (7-10) Hydrophilic Ointment 1 applic 02/13/20 19:41 Vaseline Lip Therapy TP Q2HR PRN Dry Lips Heparin Sodium/Sodium Chloride 25,000 unit in 500 mls @ 20 mls/hr 02/13/20 20:00 02/23/20 03:47 Heparin/ 0.45% Nacl-25,000 Unit/500 Ml IV 0 units/hr TITR NADER 0 mls/hr Titration Protocol 1,000 UNITS/HR Fentanyl Citrate 2,000 mcg in 100 mls @ 4.05 mls/hr 02/19/20 16:00 02/24/20 07:00 Fentanyl Drip Premix IV 0 mcg/kg/hr TITR NADER 0 mls/hr Titration Protocol 1 MCG/KG/HR Sodium Chloride 100 mls @ 999 mls/hr 02/22/20 12:30 Nacl 0.9% IV FABIOLA PRN Hypotension Amino Acids/Electrolytes/Dextrose 1,800 mls @ 75 mls/hr 02/23/20 20:00 02/23/20 20:36 Tpn Adult IV 02/24/20 19:59 75 mls/hr DAILY@2000 NADER Administration Protocol Insulin Glargine 35 units 02/23/20 22:00 02/23/20 23:12 Lantus SUB-Q 35 units BID NADER Administration Insulin Glargine 10 units 02/24/20 10:00 Lantus SUB-Q 02/24/20 10:01 ONCE ONE Insulin Human Lispro 0 unit 02/19/20 18:00 02/24/20 05:56 Humalog SUB-Q 8 unit Q6HR NADER Administration Protocol Labetalol HCl 20 mg 02/13/20 18:00 02/24/20 08:29 Labetalol IV 20 mg Q4H PRN Administration SBP >150 Metoprolol Tartrate 2.5 mg 02/13/20 18:00 02/18/20 04:41 Metoprolol IV 2.5 mg Q6HR PRN Administration HR >130 Multi-Ingred Cream/Lotion/Oil/Oint 1 applic 02/13/20 19:41 Artificial Tears Ophth Oint OU Q4HR PRN Dry Eye(s) Sertraline HCl 50 mg 02/23/20 10:00 02/23/20 09:36 Zoloft PO 50 mg QDAY NADER Administration Simple Syrup 15 ml 02/20/20 10:28 Simple Syrup FEEDTUBE PRN PRN Hypoglycemia Simple Syrup 30 ml 02/20/20 10:28 Simple Syrup FEEDTUBE PRN PRN Hypoglycemia Sodium Bicarbonate 325 mg 02/20/20 10:28 Sodium Bicarbonate FEEDTUBE PRN PRN For Clogged Feeding Tube Sodium Chloride 10 ml 02/11/20 22:00 02/23/20 23:13 Sodium Chloride Flush Syringe 10 Ml IV 10 ml BID NADER Administration Sodium Chloride 10 ml 02/11/20 19:01 02/15/20 22:43 Sodium Chloride Flush Syringe 10 Ml IV 10 ml PRN PRN Administration LINE FLUSH Vancomycin HCl 125 mg 02/20/20 15:00 02/24/20 05:57 Vancomycin Po PO 02/27/20 06:01 125 mg Q6HR NADER Administration
[2020-02-24 10:17] LABS: Calcium 8.4 mg/dL (8.4-10.2)
[2020-02-24] MEDS: AMIODARONE 200 MG TAB PO SCH (10:31)
[2020-02-24] MEDS: FAMOTIDINE 20 MG TAB PO SCH (10:31)
[2020-02-24] MEDS: SERTRALINE 50 MG TAB PO SCH (10:31)
--- NOTE | 2020-02-24 10:50 | Progress Note ---
Assessment and Plan 74 y/o female with abdominal pain, hypotension, now hypertensive with tachycardia and pain, worrisome for SBO and inflammation in colon from diverticula with worsening renal function. 02/24/2020: Continue PSV as tolerated. I have asked nursing to leave sedation off for as long as possible. I have also added PRN pushes of fentanyl with hopes of not having to restart the continuous infusion. I do not believe she will be ready for extubation today, but would like to work her respiratory muscles. Mental status is not exactly where we wont it to be. Heparin remains off and will discontinue from the MAR at this time. HD yesterday so likely none today. Will touch base with surgery and discuss with them but given the degree of illness and likely underlying lung disease as patient as still smoking, may need to consider LTACH if not able to wean in a timely fashion. Overall prognosis remains guarded. 02/23/2020: HD today. Will hold on weaning sedation given HD happening and likely will be to weak for PSV. Remains on minimal vent support. Transfusion today, of 2 units of PRBC's. Heparin on hold will need to recheck levels today. Spoke with pharm who will help with insulin therapy to better level of sugars. Abx therapy per ID. Flagyl and Cefepime stopped yesterday. Guarded prognosis. Will continue to follow. 02/20/2020: Positive VTE but already on anticoagulation for Afib. HgB is 7. Not hypotensive. Does respond to lasix. Will discuss with renal but my personal preference would be to hold until less than 7 for transfusion. ID on board and placed on antifungal yesterday. Improvement in white count. Spoke with RT who will attempt PSV again today. If patient fails again today, will speak with renal about more volume removal. May need HD briefly. Surgery also starting trickle feeds today. Spoke with Pharm about increasing lantus given hyperglycemia. C. Diff PCR came back positive today. 02/19/2020: More awake today but failed PSV secondary to tachypnea. Makes sense given degree of acidosis. Await renal to eval today. Wonder if more lasix will be given or if she will need HD. Only on 30% with good sats, but compensating for metabolic acidosis which is why she failed PSV. Spoke with Granddaughter over the phone, renal please call as she would like an update on renal function and plans. Continue pain control with PRN therapy but no further continuous se dation. 02/18/2020: More awake but failing PSV trials. Spoke with renal and they did not request corcoran out either. Will replace and give lasix 80mg IV. Spoke with Granddaughter over the phone who is a nurse. Will attempt PSV later this afternoon. If passes, will likely extubate in the am. If not , will give an additional dose of lasix tonight. 02/17/2020: Start to wean sedation today with hopes of extubation. Pain control. IVF's per renal. Follow up any surgery recs. ID seen this am, reviewed their note and plan to treat for 7 days of abx, currently on day 2. 02/16/2020: Picc line placed yesterday. Going to OR today, plan around 1330. If able to close, could consider starting to wean as early as tomorrow but will touch base with surgery first. Patient HR in the 50's on drip so cards decreased. Discussed on rounds, but I asked nursing if any further issues to just stop the drip. Prognosis remains guarded. Trigylcerides not checked so will order stat. 02/15/2020: No new recs for today. Happy with current clinical state in regards to sedation, ventilation and oxygenation. Appreciate surgery and nephro help. follow up any new recs from them. Agree with picc line, will get tomorrow as I believe they (picc team) are not available on Sunday. Will check triglyceride level in the am. 1. Continue deep sedation and pain control. No plans on weaning or extubation until abdominal issues are done. 2. Continue corcoran 3. Follow up surgery recs. Greatly appreciate them and their help. Plan for return to OR on Sunday. 4. IV abx, ID following. 5. Cardiology has elected for dilt drip. Suggest titrating. Gave nurse parameters. 6. Follow up renal rec Guarded prognosis. CCT 31 minutes. Subjective Date of service: 02/24/20 Principal diagnosis: Ischemic Bowel Interval history: No acute events. Off sedation now. Eyes open but still not following commands. Currently on PSV and tolerating. Had HD yesterday, no plans today. Still leia ing urine. Per nursing, Daughter and Granddaughter visited on yesterday. Transfused PRBC's on yesterday as well. Hemodynamically remains stable. Objective Vital Signs - 12hr 02/23/20 02/23/20 02/23/20 23:00 23:07 23:12 Temperature Pulse Rate 120 H 107 H 100 H Pulse Rate [ From Monitor] Respiratory 13 2 L Rate Blood Pressure 189/102 154/95 170/96 O2 Sat by Pulse 97 99 Oximetry 02/23/20 02/23/20 02/24/20 23:28 23:30 00:00 Temperature 98.9 F Pulse Rate 107 H 85 Pulse Rate [ From Monitor] Respiratory 11 L 16 Rate Blood Pressure 154/74 108/54 O2 Sat by Pulse 99 98 Oximetry 02/24/20 02/24/20 02/24/20 00:12 00:30 01:00 Temperature Pulse Rate 81 92 H 81 Pulse Rate [ 81 From Monitor] Respiratory 16 18 Rate Blood Pressure 122/42 122/42 O2 Sat by Pulse 99 99 Oximetry 02/24/20 02/24/20 02/24/20 01:30 02:00 02:30 Temperature Pulse Rate 81 81 82 Pulse Rate [ From Monitor] Respiratory 16 15 16 Rate Blood Pressure 167/84 129/58 116/49 O2 Sat by Pulse 99 99 99 Oximetry 02/24/20 02/24/20 02/24/20 03:00 03:05 03:30 Temperature Pulse Rate 123 H 82 122 H Pulse Rate [ From Monitor] Respiratory 14 4 L 16 Rate Blood Pressure 163/84 116/49 170/90 O2 Sat by Pulse 99 99 98 Oximetry 02/24/20 02/24/20 02/24/20 03:41 04:00 04:26 Temperature 98.8 F Pulse Rate 111 H Pulse Rate [ 126 H From Monitor] Respiratory 15 Rate Blood Pressure 147/81 O2 Sat by Pulse 98 Oximetry 02/24/20 02/24/20 02/24/20 04:30 05:00 05:30 Temperature Pulse Rate 103 H 103 H 95 H Pulse Rate [ From Monitor] Respiratory 12 16 14 Rate Blood Pressure 140/82 140/71 116/59 O2 Sat by Pulse 98 99 97 Oximetry 02/24/20 02/24/20 02/24/20 05:56 06:00 06:30 Temperature Pulse Rate 122 H 122 H 123 H Pulse Rate [ From Monitor] Respiratory 18 15 Rate Blood Pressure 145/84 135/73 139/76 O2 Sat by Pulse 98 98 Oximetry 02/24/20 02/24/20 02/24/20 07:00 07:30 08:00 Temperature Pulse Rate 125 H 126 H 128 H Pulse Rate [ From Monitor] Respiratory 21 19 22 Rate Blood Pressure 153/80 158/72 187/89 O2 Sat by Pulse 98 99 Oximetry 02/24/20 02/24/20 02/24/20 08:12 08:29 08:30 Temperature Pulse Rate 126 H 127 H 128 H Pulse Rate [ From Monitor] Respiratory 18 13 Rate Blood Pressure 193/82 162/81 175/81 O2 Sat by Pulse 100 91 Oximetry 02/24/20 02/24/20 02/24/20 09:00 09:30 10:00 Temperature Pulse Rate 97 H 118 H 121 H Pulse Rate [ From Monitor] Respiratory 12 15 14 Rate Blood Pressure 113/68 128/71 129/75 O2 Sat by Pulse 100 99 100 Oximetry Constitutional: no acute distress, other (on vent intubated and sedated) Eyes: non-icteric ENT: other (orally intubated ) Effort: normal Ascultation: Bilateral: clear Percussion: Bilateral: not dull Cardiovascular: irregular rhythm (but rate controlled) Gastrointestinal: other (post surgical changes) Integumentary: normal Extremities: edema Neurologic: unable to assess (on vent) CBC and BMP: 02/24/20 05:40 02/24/20 09:05 ABG, PT/INR, D-dimer: ABG ABG pH 7.318 pH Units (7.350-7.450) L 02/21/20 04:16 ABG pCO2 42.7 mm Hg 02/21/20 04:16 ABG pO2 100.0 mm Hg (80.0-90.0) H 02/21/20 04:16 ABG O2 Saturation 97.2 % (95.0-99.0) 02/21/20 04:16 PT/INR, D-dimer PT 16.9 Sec. (12.2-14.9) H 02/13/20 20:10 INR 1.41 (0.87-1.13) H 02/13/20 20:10 Abnormal lab findings: Abnormal Labs 02/11/20 02/11/20 02/11/20 15:27 15:27 15:27 WBC 22.5 H RBC Hgb Hct MCHC RDW Plt Count Seg Neuts % (Manual) 90.0 H Lymphocytes % (Manual) 4.0 L Monocytes % (Manual) Nucleated RBC % Seg Neutrophils # Man 20.3 H Lymphocytes # (Manual) 0.9 L Monocytes # (Manual) 1.1 H Eosinophils # (Manual) PT INR APTT 23.3 L Heparin Anti-Xa Level ABG pH ABG pO2 ABG HCO3 ABG O2 Saturation ABG Base Excess ABG Hemoglobin Oxyhemoglobin Sodium 132 L Potassium Chloride 96.0 L Carbon Dioxide 16 L BUN 59 H Creatinine 3.0 H Glucose 487 H POC Glucose Calcium Phosphorus Magnesium Alkaline Phosphatase 142 H Albumin Triglycerides Lipase 86 H Urine WBC (Auto) Urine Creatinine Urine Total Protein Crossmatch 02/12/20 02/12/20 02/12/20 04:58 04:58 Unknown WBC 30.0 H RBC Hgb Hct MCHC RDW Plt Count Seg Neuts % (Manual) 96.0 H Lymphocytes % (Manual) 1.0 L Monocytes % (Manual) Nucleated RBC % Seg Neutrophils # Man 28.8 H Lymphocytes # (Manual) 0.3 L Monocytes # (Manual) 0.9 H Eosinophils # (Manual) PT INR APTT Heparin Anti-Xa Level ABG pH ABG pO2 ABG HCO3 ABG O2 Saturation ABG Base Excess ABG Hemoglobin Oxyhemoglobin Sodium Potassium Chloride Carbon Dioxide 15 L BUN 59 H Creatinine 3.0 H Glucose 477 H POC Glucose Calcium Phosphorus Magnesium Alkaline Phosphatase Albumin 3.5 L Triglycerides Lipase Urine WBC (Auto) Urine Creatinine 35.3 H Urine Total Protein 796 H Crossmatch 02/13/20 02/13/20 02/13/20 05:43 05:43 13:24 WBC 38.2 H RBC Hgb Hct 43.6 H MCHC RDW Plt Count Seg Neuts % (Manual) 91.0 H Lymphocytes % (Manual) 4.0 L Monocytes % (Manual) Nucleated RBC % Seg Neutrophils # Man 34.8 H Lymphocytes # (Manual) Monocytes # (Manual) 1.1 H Eosinophils # (Manual) PT INR APTT Heparin Anti-Xa Level ABG pH ABG pO2 ABG HCO3 ABG O2 Saturation ABG Base Excess ABG Hemoglobin Oxyhemoglobin Sodium 136 L Potassium Chloride Carbon Dioxide 11 L BUN 71 H Creatinine 4.0 H Glucose 343 H POC Glucose 337 H Calcium Phosphorus Magnesium Alkaline Phosphatase Albumin Triglycerides Lipase Urine WBC (Auto) Urine Creatinine Urine Total Protein Crossmatch 02/13/20 02/13/20 02/13/20 16:49 16:50 17:30 WBC RBC Hgb Hct MCHC RDW Plt Count Seg Neuts % (Manual) Lymphocytes % (Manual) Monocytes % (Manual) Nucleated RBC % Seg Neutrophils # Man Lymphocytes # (Manual) Monocytes # (Manual) Eosinophils # (Manual) PT INR APTT Heparin Anti-Xa Level ABG pH 7.226 L ABG pO2 77.9 L ABG HCO3 16.4 L ABG O2 Saturation ABG Base Excess -10.5 L ABG Hemoglobin 11.7 L Oxyhemoglobin 92.8 L Sodium Potassium Chloride Carbon Dioxide BUN Creatinine Glucose POC Glucose 272 H Calcium Phosphorus Magnesium Alkaline Phosphatase Albumin Triglycerides Lipase Urine WBC (Auto) Urine Creatinine Urine Total Protein Crossmatch See Detail 02/13/20 02/13/20 02/14/20 20:10 22:08 00:22 WBC RBC Hgb Hct MCHC RDW Plt Count Seg Neuts % (Manual) Lymphocytes % (Manual) Monocytes % (Manual) Nucleated RBC % Seg Neutrophils # Man Lymphocytes # (Manual) Monocytes # (Manual) Eosinophils # (Manual) PT 16.9 H INR 1.41 H APTT Heparin Anti-Xa Level ABG pH 7.158 L* ABG pO2 ABG HCO3 18.6 L ABG O2 Saturation ABG Base Excess -10.2 L ABG Hemoglobin 11.9 L Oxyhemoglobin 93.1 L Sodium Potassium Chloride Carbon Dioxide BUN Creatinine Glucose POC Glucose 199 H Calcium Phosphorus Magnesium Alkaline Phosphatase Albumin Triglycerides Lipase Urine WBC (Auto) Urine Creatinine Urine Total Protein Crossmatch 02/14/20 02/14/20 02/14/20 03:45 04:29 04:29 WBC 14.4 H RBC Hgb Hct MCHC RDW 15.3 H Plt Count Seg Neuts % (Manual) 88.0 H Lymphocytes % (Manual) 6.0 L Monocytes % (Manual) Nucleated RBC % Seg Neutrophils # Man 12.7 H Lymphocytes # (Manual) 0.9 L Monocytes # (Manual) Eosinophils # (Manual) PT INR APTT Heparin Anti-Xa Level ABG pH 7.193 L* ABG pO2 ABG HCO3 16.4 L ABG O2 Saturation ABG Base Excess -11.2 L ABG Hemoglobin 10.2 L Oxyhemoglobin 94.3 L Sodium Potassium Chloride 108.5 H Carbon Dioxide 16 L BUN 73 H Creatinine 4.3 H Glucose 167 H POC Glucose Calcium 8.0 L Phosphorus Magnesium Alkaline Phosphatase Albumin Triglycerides Lipase Urine WBC (Auto) Urine Creatinine Urine Total Protein Crossmatch 02/14/20 02/14/20 02/14/20 05:26 12:11 18:34 WBC RBC Hgb Hct MCHC RDW Plt Count Seg Neuts % (Manual) Lymphocytes % (Manual) Monocytes % (Manual) Nucleated RBC % Seg Neutrophils # Man Lymphocytes # (Manual) Monocytes # (Manual) Eosinophils # (Manual) PT INR APTT Heparin Anti-Xa Level ABG pH ABG pO2 ABG HCO3 ABG O2 Saturation ABG Base Excess ABG Hemoglobin Oxyhemoglobin Sodium Potassium Chloride Carbon Dioxide BUN Creatinine Glucose POC Glucose 177 H 160 H 135 H Calcium Phosphorus Magnesium Alkaline Phosphatase Albumin Triglycerides Lipase Urine WBC (Auto) Urine Creatinine Urine Total Protein Crossmatch 02/14/20 02/15/20 02/15/20 23:18 03:19 04:28 WBC RBC Hgb Hct MCHC RDW Plt Count Seg Neuts % (Manual) Lymphocytes % (Manual) Monocytes % (Manual) Nucleated RBC % Seg Neutrophils # Man Lymphocytes # (Manual) Monocytes # (Manual) Eosinophils # (Manual) PT INR APTT Heparin Anti-Xa Level ABG pH 7.246 L ABG pO2 ABG HCO3 13.7 L ABG O2 Saturation ABG Base Excess -12.5 L ABG Hemoglobin 8.4 L Oxyhemoglobin 94.6 L Sodium Potassium Chloride Carbon Dioxide 12 L BUN 72 H Creatinine 4.7 H Glucose 147 H POC Glucose 138 H Calcium 7.9 L Phosphorus Magnesium Alkaline Phosphatase Albumin Triglycerides Lipase Urine WBC (Auto) Urine Creatinine Urine Total Protein Crossmatch 02/15/20 02/15/20 02/15/20 04:28 05:35 12:07 WBC RBC 2.88 L Hgb 8.6 L Hct 25.4 L D MCHC RDW 15.6 H Plt Count Seg Neuts % (Manual) Lymphocytes % (Manual) Monocytes % (Manual) Nucleated RBC % Seg Neutrophils # Man Lymphocytes # (Manual) Monocytes # (Manual) Eosinophils # (Manual) PT INR APTT Heparin Anti-Xa Level ABG pH ABG pO2 ABG HCO3 ABG O2 Saturation ABG Base Excess ABG Hemoglobin Oxyhemoglobin Sodium Potassium Chloride Carbon Dioxide BUN Creatinine Glucose POC Glucose 181 H 136 H Calcium Phosphorus Magnesium Alkaline Phosphatase Albumin Triglycerides Lipase Urine WBC (Auto) Urine Creatinine Urine Total Protein Crossmatch 02/15/20 02/15/20 02/16/20 17:50 23:18 04:20 WBC RBC Hgb Hct MCHC RDW Plt Count Seg Neuts % (Manual) Lymphocytes % (Manual) Monocytes % (Manual) Nucleated RBC % Seg Neutrophils # Man Lymphocytes # (Manual) Monocytes # (Manual) Eosinophils # (Manual) PT INR APTT Heparin Anti-Xa Level ABG pH ABG pO2 77.4 L ABG HCO3 ABG O2 Saturation ABG Base Excess -4.7 L ABG Hemoglobin 5.0 L Oxyhemoglobin Sodium Potassium Chloride Carbon Dioxide BUN Creatinine Glucose POC Glucose 177 H 284 H Calcium Phosphorus Magnesium Alkaline Phosphatase Albumin Triglycerides Lipase Urine WBC (Auto) Urine Creatinine Urine Total Protein Crossmatch 02/16/20 02/16/20 02/16/20 05:24 05:29 05:29 WBC RBC 2.31 L Hgb 7.2 L Hct 20.2 L MCHC 36 H RDW 15.3 H Plt Count 115 L Seg Neuts % (Manual) Lymphocytes % (Manual) Monocytes % (Manual) Nucleated RBC % Seg Neutrophils # Man Lymphocytes # (Manual) Monocytes # (Manual) Eosinophils # (Manual) PT INR APTT Heparin Anti-Xa Level ABG pH ABG pO2 ABG HCO3 ABG O2 Saturation ABG Base Excess ABG Hemoglobin Oxyhemoglobin Sodium 135 L Potassium 3.0 L D Chloride 90.7 L Carbon Dioxide BUN 64 H Creatinine 4.7 H Glucose 491 H POC Glucose 282 H Calcium 7.2 L Phosphorus Magnesium Alkaline Phosphatase Albumin Triglycerides Lipase Urine WBC (Auto) Urine Creatinine Urine Total Protein Crossmatch 02/16/20 02/16/20 02/16/20 05:29 08:39 12:27 WBC RBC Hgb Hct MCHC RDW Plt Count Seg Neuts % (Manual) Lymphocytes % (Manual) Monocytes % (Manual) Nucleated RBC % Seg Neutrophils # Man Lymphocytes # (Manual) Monocytes # (Manual) Eosinophils # (Manual) PT INR APTT Heparin Anti-Xa Level ABG pH ABG pO2 ABG HCO3 ABG O2 Saturation ABG Base Excess ABG Hemoglobin Oxyhemoglobin Sodium Potassium Chloride Carbon Dioxide BUN Creatinine Glucose POC Glucose 314 H Calcium Phosphorus Magnesium Alkaline Phosphatase Albumin Triglycerides 716 H Lipase Urine WBC (Auto) Urine Creatinine Urine Total Protein Crossmatch See Detail 02/16/20 02/17/20 02/17/20 19:04 00:02 03:45 WBC RBC Hgb Hct MCHC RDW Plt Count Seg Neuts % (Manual) Lymphocytes % (Manual) Monocytes % (Manual) Nucleated RBC % Seg Neutrophils # Man Lymphocytes # (Manual) Monocytes # (Manual) Eosinophils # (Manual) PT INR APTT Heparin Anti-Xa Level ABG pH ABG pO2 ABG HCO3 ABG O2 Saturation ABG Base Excess ABG Hemoglobin Oxyhemoglobin Sodium Potassium Chloride Carbon Dioxide 21 L BUN 63 H Creatinine 5.2 H Glucose 134 H POC Glucose 203 H 202 H Calcium 7.6 L Phosphorus Magnesium Alkaline Phosphatase Albumin Triglycerides Lipase Urine WBC (Auto) Urine Creatinine Urine Total Protein Crossmatch 02/17/20 02/17/20 02/17/20 03:45 03:45 04:06 WBC RBC Hgb 9.9 L Hct 30.1 L D MCHC RDW Plt Count Seg Neuts % (Manual) Lymphocytes % (Manual) Monocytes % (Manual) Nucleated RBC % Seg Neutrophils # Man Lymphocytes # (Manual) Monocytes # (Manual) Eosinophils # (Manual) PT INR APTT Heparin Anti-Xa Level ABG pH 7.288 L ABG pO2 ABG HCO3 ABG O2 Saturation ABG Base Excess -4.9 L ABG Hemoglobin 9.7 L Oxyhemoglobin 94.0 L Sodium Potassium Chloride Carbon Dioxide BUN Creatinine Glucose POC Glucose Calcium Phosphorus Magnesium Alkaline Phosphatase Albumin Triglycerides 238 H Lipase Urine WBC (Auto) Urine Creatinine Urine Total Protein Crossmatch 02/17/20 02/17/20 02/17/20 05:21 12:08 18:07 WBC RBC Hgb Hct MCHC RDW Plt Count Seg Neuts % (Manual) Lymphocytes % (Manual) Monocytes % (Manual) Nucleated RBC % Seg Neutrophils # Man Lymphocytes # (Manual) Monocytes # (Manual) Eosinophils # (Manual) PT INR APTT Heparin Anti-Xa Level ABG pH ABG pO2 ABG HCO3 ABG O2 Saturation ABG Base Excess ABG Hemoglobin Oxyhemoglobin Sodium Potassium Chloride Carbon Dioxide BUN Creatinine Glucose POC Glucose 132 H 141 H 189 H Calcium Phosphorus Magnesium Alkaline Phosphatase Albumin Triglycerides Lipase Urine WBC (Auto) Urine Creatinine Urine Total Protein Crossmatch 02/17/20 02/17/20 02/18/20 19:54 23:13 03:41 WBC RBC Hgb Hct MCHC RDW Plt Count Seg Neuts % (Manual) Lymphocytes % (Manual) Monocytes % (Manual) Nucleated RBC % Seg Neutrophils # Man Lymphocytes # (Manual) Monocytes # (Manual) Eosinophils # (Manual) PT INR APTT Heparin Anti-Xa Level < 0.10 L ABG pH 7.281 L ABG pO2 74.5 L ABG HCO3 16.2 L ABG O2 Saturation 94.3 L ABG Base Excess -9.7 L ABG Hemoglobin 9.8 L Oxyhemoglobin 92.1 L Sodium Potassium Chloride Carbon Dioxide BUN Creatinine Glucose POC Glucose 167 H Calcium Phosphorus Magnesium Alkaline Phosphatase Albumin Triglycerides Lipase Urine WBC (Auto) Urine Creatinine Urine Total Protein Crossmatch 02/18/20 02/18/20 02/18/20 04:37 05:44 09:00 WBC RBC Hgb Hct MCHC RDW Plt Count Seg Neuts % (Manual) Lymphocytes % (Manual) Monocytes % (Manual) Nucleated RBC % Seg Neutrophils # Man Lymphocytes # (Manual) Monocytes # (Manual) Eosinophils # (Manual) PT INR APTT Heparin Anti-Xa Level ABG pH ABG pO2 ABG HCO3 ABG O2 Saturation ABG Base Excess ABG Hemoglobin Oxyhemoglobin Sodium Potassium Chloride Carbon Dioxide 15 L BUN 65 H Creatinine 5.1 H Glucose 117 H POC Glucose 112 H Calcium 7.7 L Phosphorus 6.40 H Magnesium 1.30 L Alkaline Phosphatase Albumin Triglycerides Lipase Urine WBC (Auto) Urine Creatinine Urine Total Protein Crossmatch 02/18/20 02/18/20 02/18/20 09:00 12:41 17:58 WBC 14.9 H RBC 2.99 L Hgb 8.8 L Hct 27.1 L MCHC RDW 15.8 H Plt Count 131 L Seg Neuts % (Manual) Lymphocytes % (Manual) Monocytes % (Manual) Nucleated RBC % Seg Neutrophils # Man Lymphocytes # (Manual) Monocytes # (Manual) Eosinophils # (Manual) PT INR APTT Heparin Anti-Xa Level ABG pH ABG pO2 ABG HCO3 ABG O2 Saturation ABG Base Excess ABG Hemoglobin Oxyhemoglobin Sodium Potassium Chloride Carbon Dioxide BUN Creatinine Glucose POC Glucose 140 H 141 H Calcium Phosphorus Magnesium Alkaline Phosphatase Albumin Triglycerides Lipase Urine WBC (Auto) Urine Creatinine Urine Total Protein Crossmatch 02/18/20 02/19/20 02/19/20 23:06 03:50 04:30 WBC RBC Hgb Hct MCHC RDW Plt Count Seg Neuts % (Manual) Lymphocytes % (Manual) Monocytes % (Manual) Nucleated RBC % Seg Neutrophils # Man Lymphocytes # (Manual) Monocytes # (Manual) Eosinophils # (Manual) PT INR APTT Heparin Anti-Xa Level ABG pH 7.243 L ABG pO2 75.3 L ABG HCO3 11.8 L ABG O2 Saturation 94.0 L ABG Base Excess -14.1 L ABG Hemoglobin 9.6 L Oxyhemoglobin 91.8 L Sodium 136 L Potassium Chloride Carbon Dioxide 12 L BUN 76 H Creatinine 5.2 H Glucose 228 H POC Glucose 212 H Calcium Phosphorus Magnesium Alkaline Phosphatase Albumin Triglycerides Lipase Urine WBC (Auto) Urine Creatinine Urine Total Protein Crossmatch 02/19/20 02/19/20 02/19/20 04:30 04:30 06:19 WBC 19.8 H RBC 3.19 L Hgb 9.1 L Hct 28.9 L MCHC RDW 15.5 H Plt Count Seg Neuts % (Manual) 86.0 H Lymphocytes % (Manual) 5.0 L Monocytes % (Manual) Nucleated RBC % Seg Neutrophils # Man 17.0 H Lymphocytes # (Manual) 1.0 L Monocytes # (Manual) 1.4 H Eosinophils # (Manual) PT INR APTT Heparin Anti-Xa Level ABG pH ABG pO2 ABG HCO3 ABG O2 Saturation ABG Base Excess ABG Hemoglobin Oxyhemoglobin Sodium Potassium Chloride Carbon Dioxide BUN Creatinine Glucose POC Glucose 253 H Calcium Phosphorus 8.00 H D Magnesium Alkaline Phosphatase Albumin Triglycerides Lipase Urine WBC (Auto) Urine Creatinine Urine Total Protein Crossmatch 02/19/20 02/19/20 02/19/20 11:37 14:00 14:00 WBC RBC Hgb Hct MCHC RDW Plt Count Seg Neuts % (Manual) Lymphocytes % (Manual) Monocytes % (Manual) Nucleated RBC % Seg Neutrophils # Man Lymphocytes # (Manual) Monocytes # (Manual) Eosinophils # (Manual) PT INR APTT Heparin Anti-Xa Level ABG pH ABG pO2 ABG HCO3 ABG O2 Saturation ABG Base Excess ABG Hemoglobin Oxyhemoglobin Sodium 132 L Potassium Chloride 95.4 L Carbon Dioxide 15 L BUN 75 H Creatinine 5.2 H Glucose 526 H* POC Glucose 288 H Calcium 7.6 L Phosphorus Magnesium Alkaline Phosphatase Albumin Triglycerides Lipase Urine WBC (Auto) 166.0 H Urine Creatinine Urine Total Protein Crossmatch 02/19/20 02/19/20 02/19/20 15:07 17:40 23:40 WBC RBC Hgb Hct MCHC RDW Plt Count Seg Neuts % (Manual) Lymphocytes % (Manual) Monocytes % (Manual) Nucleated RBC % Seg Neutrophils # Man Lymphocytes # (Manual) Monocytes # (Manual) Eosinophils # (Manual) PT INR APTT Heparin Anti-Xa Level ABG pH ABG pO2 ABG HCO3 ABG O2 Saturation ABG Base Excess ABG Hemoglobin Oxyhemoglobin Sodium Potassium Chloride Carbon Dioxide BUN Creatinine Glucose POC Glucose 324 H 328 H 390 H Calcium Phosphorus Magnesium Alkaline Phosphatase Albumin Triglycerides Lipase Urine WBC (Auto) Urine Creatinine Urine Total Protein Crossmatch 02/20/20 02/20/20 02/20/20 03:15 03:15 03:15 WBC 13.6 H RBC 2.43 L Hgb 7.1 L Hct 21.3 L D MCHC RDW Plt Count 136 L Seg Neuts % (Manual) 81.0 H Lymphocytes % (Manual) 5.0 L Monocytes % (Manual) Nucleated RBC % Seg Neutrophils # Man 11.0 H Lymphocytes # (Manual) 0.7 L Monocytes # (Manual) Eosinophils # (Manual) PT INR APTT Heparin Anti-Xa Level 0.19 L ABG pH ABG pO2 ABG HCO3 ABG O2 Saturation ABG Base Excess ABG Hemoglobin Oxyhemoglobin Sodium Potassium 3.5 L D Chloride Carbon Dioxide 19 L BUN 85 H Creatinine 5.4 H Glucose 353 H POC Glucose Calcium 8.3 L Phosphorus 6.50 H Magnesium Alkaline Phosphatase Albumin Triglycerides Lipase Urine WBC (Auto) Urine Creatinine Urine Total Protein Crossmatch 02/20/20 02/20/20 02/20/20 04:29 05:21 11:52 WBC RBC Hgb Hct MCHC RDW Plt Count Seg Neuts % (Manual) Lymphocytes % (Manual) Monocytes % (Manual) Nucleated RBC % Seg Neutrophils # Man Lymphocytes # (Manual) Monocytes # (Manual) Eosinophils # (Manual) PT INR APTT Heparin Anti-Xa Level ABG pH ABG pO2 ABG HCO3 ABG O2 Saturation ABG Base Excess -3.8 L ABG Hemoglobin 6.0 L Oxyhemoglobin 94.6 L Sodium Potassium Chloride Carbon Dioxide BUN Creatinine Glucose POC Glucose 400 H 348 H Calcium Phosphorus Magnesium Alkaline Phosphatase Albumin Triglycerides Lipase Urine WBC (Auto) Urine Creatinine Urine Total Protein Crossmatch 02/20/20 02/20/20 02/20/20 18:30 20:02 23:31 WBC RBC Hgb Hct MCHC RDW Plt Count Seg Neuts % (Manual) Lymphocytes % (Manual) Monocytes % (Manual) Nucleated RBC % Seg Neutrophils # Man Lymphocytes # (Manual) Monocytes # (Manual) Eosinophils # (Manual) PT INR APTT Heparin Anti-Xa Level ABG pH ABG pO2 ABG HCO3 ABG O2 Saturation ABG Base Excess ABG Hemoglobin Oxyhemoglobin Sodium Potassium Chloride Carbon Dioxide BUN Creatinine Glucose 584 H* POC Glucose 422 H 341 H Calcium Phosphorus Magnesium Alkaline Phosphatase Albumin Triglycerides Lipase Urine WBC (Auto) Urine Creatinine Urine Total Protein Crossmatch 02/21/20 02/21/20 02/21/20 03:53 03:53 03:53 WBC RBC Hgb 5.9 L* Hct 18.5 L* MCHC RDW Plt Count Seg Neuts % (Manual) Lymphocytes % (Manual) Monocytes % (Manual) Nucleated RBC % Seg Neutrophils # Man Lymphocytes # (Manual) Monocytes # (Manual) Eosinophils # (Manual) PT INR APTT Heparin Anti-Xa Level 1.13 H ABG pH ABG pO2 ABG HCO3 ABG O2 Saturation ABG Base Excess ABG Hemoglobin Oxyhemoglobin Sodium 136 L Potassium Chloride 97.5 L Carbon Dioxide 21 L BUN 97 H Creatinine 5.3 H Glucose 246 H POC Glucose Calcium 8.1 L Phosphorus Magnesium Alkaline Phosphatase Albumin Triglycerides Lipase Urine WBC (Auto) Urine Creatinine Urine Total Protein Crossmatch 02/21/20 02/21/20 02/21/20 04:16 06:00 06:32 WBC RBC Hgb Hct MCHC RDW Plt Count Seg Neuts % (Manual) Lymphocytes % (Manual) Monocytes % (Manual) Nucleated RBC % Seg Neutrophils # Man Lymphocytes # (Manual) Monocytes # (Manual) Eosinophils # (Manual) PT INR APTT Heparin Anti-Xa Level ABG pH 7.318 L ABG pO2 100.0 H ABG HCO3 ABG O2 Saturation ABG Base Excess -4.4 L ABG Hemoglobin 9.1 L Oxyhemoglobin Sodium Potassium Chloride Carbon Dioxide BUN Creatinine Glucose POC Glucose 317 H Calcium Phosphorus Magnesium Alkaline Phosphatase Albumin Triglycerides Lipase Urine WBC (Auto) Urine Creatinine Urine Total Protein Crossmatch See Detail 02/21/20 02/21/20 02/21/20 11:45 17:40 23:37 WBC RBC Hgb Hct MCHC RDW Plt Count Seg Neuts % (Manual) Lymphocytes % (Manual) Monocytes % (Manual) Nucleated RBC % Seg Neutrophils # Man Lymphocytes # (Manual) Monocytes # (Manual) Eosinophils # (Manual) PT INR APTT Heparin Anti-Xa Level ABG pH ABG pO2 ABG HCO3 ABG O2 Saturation ABG Base Excess ABG Hemoglobin Oxyhemoglobin Sodium Potassium Chloride Carbon Dioxide BUN Creatinine Glucose POC Glucose 389 H 387 H 297 H Calcium Phosphorus Magnesium Alkaline Phosphatase Albumin Triglycerides Lipase Urine WBC (Auto) Urine Creatinine Urine Total Protein Crossmatch 02/22/20 02/22/20 02/22/20 03:16 03:16 03:16 WBC 22.8 H RBC 2.49 L Hgb 7.4 L Hct 22.7 L MCHC RDW 15.6 H Plt Count Seg Neuts % (Manual) 74.0 H Lymphocytes % (Manual) 8.5 L Monocytes % (Manual) 13.5 H Nucleated RBC % 2.5 H Seg Neutrophils # Man 16.9 H Lymphocytes # (Manual) Monocytes # (Manual) 3.1 H Eosinophils # (Manual) 0.5 H PT INR APTT Heparin Anti-Xa Level 0.27 L ABG pH ABG pO2 ABG HCO3 ABG O2 Saturation ABG Base Excess ABG Hemoglobin Oxyhemoglobin Sodium 135 L Potassium Chloride 95.2 L Carbon Dioxide BUN 83 H Creatinine 4.3 H Glucose 264 H POC Glucose Calcium 8.1 L Phosphorus 4.60 H Magnesium Alkaline Phosphatase Albumin Triglycerides Lipase Urine WBC (Auto) Urine Creatinine Urine Total Protein Crossmatch 02/22/20 02/22/20 02/22/20 05:16 11:50 17:26 WBC RBC Hgb Hct MCHC RDW Plt Count Seg Neuts % (Manual) Lymphocytes % (Manual) Monocytes % (Manual) Nucleated RBC % Seg Neutrophils # Man Lymphocytes # (Manual) Monocytes # (Manual) Eosinophils # (Manual) PT INR APTT Heparin Anti-Xa Level ABG pH ABG pO2 ABG HCO3 ABG O2 Saturation ABG Base Excess ABG Hemoglobin Oxyhemoglobin Sodium Potassium Chloride Carbon Dioxide BUN Creatinine Glucose POC Glucose 321 H 351 H 356 H Calcium Phosphorus Magnesium Alkaline Phosphatase Albumin Triglycerides Lipase Urine WBC (Auto) Urine Creatinine Urine Total Protein Crossmatch 02/23/20 02/23/20 02/23/20 00:04 02:55 02:55 WBC 25.6 H RBC 1.86 L Hgb 5.7 L* Hct 17.3 L* MCHC RDW 16.0 H Plt Count Seg Neuts % (Manual) 80.5 H Lymphocytes % (Manual) 9.5 L Monocytes % (Manual) Nucleated RBC % 1.0 H Seg Neutrophils # Man 20.6 H Lymphocytes # (Manual) Monocytes # (Manual) 1.5 H Eosinophils # (Manual) PT INR APTT Heparin Anti-Xa Level ABG pH ABG pO2 ABG HCO3 ABG O2 Saturation ABG Base Excess ABG Hemoglobin Oxyhemoglobin Sodium 130 L Potassium Chloride 92.8 L Carbon Dioxide BUN 94 H Creatinine 4.7 H Glucose 293 H POC Glucose 359 H Calcium Phosphorus Magnesium Alkaline Phosphatase Albumin Triglycerides Lipase Urine WBC (Auto) Urine Creatinine Urine Total Protein Crossmatch 02/23/20 02/23/20 02/23/20 02:55 05:33 12:03 WBC RBC Hgb Hct MCHC RDW Plt Count Seg Neuts % (Manual) Lymphocytes % (Manual) Monocytes % (Manual) Nucleated RBC % Seg Neutrophils # Man Lymphocytes # (Manual) Monocytes # (Manual) Eosinophils # (Manual) PT INR APTT Heparin Anti-Xa Level 0.15 L ABG pH ABG pO2 ABG HCO3 ABG O2 Saturation ABG Base Excess ABG Hemoglobin Oxyhemoglobin Sodium Potassium Chloride Carbon Dioxide BUN Creatinine Glucose POC Glucose 330 H 310 H Calcium Phosphorus Magnesium Alkaline Phosphatase Albumin Triglycerides Lipase Urine WBC (Auto) Urine Creatinine Urine Total Protein Crossmatch 02/23/20 02/23/20 02/23/20 13:13 18:34 22:28 WBC 24.2 H RBC 2.61 L Hgb 8.3 L Hct 24.4 L D MCHC RDW Plt Count 125 L Seg Neuts % (Manual) Lymphocytes % (Manual) Monocytes % (Manual) Nucleated RBC % Seg Neutrophils # Man Lymphocytes # (Manual) Monocytes # (Manual) Eosinophils # (Manual) PT INR APTT Heparin Anti-Xa Level ABG pH ABG pO2 ABG HCO3 ABG O2 Saturation ABG Base Excess ABG Hemoglobin Oxyhemoglobin Sodium Potassium Chloride Carbon Dioxide BUN Creatinine Glucose POC Glucose 337 H 314 H Calcium Phosphorus Magnesium Alkaline Phosphatase Albumin Triglycerides Lipase Urine WBC (Auto) Urine Creatinine Urine Total Protein Crossmatch 02/24/20 02/24/20 02/24/20 05:25 05:40 05:40 WBC 21.0 H RBC 2.40 L Hgb 7.3 L Hct 23.4 L MCHC RDW 15.8 H Plt Count 120 L Seg Neuts % (Manual) Lymphocytes % (Manual) Monocytes % (Manual) Nucleated RBC % Seg Neutrophils # Man Lymphocytes # (Manual) Monocytes # (Manual) Eosinophils # (Manual) PT INR APTT Heparin Anti-Xa Level ABG pH ABG pO2 ABG HCO3 ABG O2 Saturation ABG Base Excess ABG Hemoglobin Oxyhemoglobin Sodium 123 L D Potassium 6.8 H* D Chloride 88.1 L Carbon Dioxide 19 L BUN 83 H Creatinine 3.9 H Glucose 657 H* POC Glucose 307 H Calcium 8.1 L Phosphorus 4.90 H Magnesium 2.50 H Alkaline Phosphatase Albumin Triglycerides Lipase Urine WBC (Auto) Urine Creatinine Urine Total Protein Crossmatch 02/24/20 09:05 WBC RBC Hgb Hct MCHC RDW Plt Count Seg Neuts % (Manual) Lymphocytes % (Manual) Monocytes % (Manual) Nucleated RBC % Seg Neutrophils # Man Lymphocytes # (Manual) Monocytes # (Manual) Eosinophils # (Manual) PT INR APTT Heparin Anti-Xa Level ABG pH ABG pO2 ABG HCO3 ABG O2 Saturation ABG Base Excess ABG Hemoglobin Oxyhemoglobin Sodium 134 L D Potassium Chloride 96 L Carbon Dioxide BUN 89 H Creatinine 4.2 H Glucose 262 H POC Glucose Calcium Phosphorus Magnesium Alkaline Phosphatase Albumin Triglycerides Lipase Urine WBC (Auto) Urine Creatinine Urine Total Protein Crossmatch
--- NOTE | 2020-02-24 10:53 | Progress Note ---
Assessment and Plan Atrial fibrillation, paroxysmal on Cardizem and amiodarone. echocardiogram showed normal left ventricular systolic function with ejection fraction 60 to 65%. 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 Subjective Date of service: 02/24/20 Principal diagnosis: Ischemic Bowel Interval history: Patient opens eyes. Remains intubated but on CPAP mode. Objective Vital Signs Temp Pulse Pulse Resp BP Pulse Ox 02/24/20 10:00 121 H 14 129/75 100 02/24/20 09:30 118 H 15 128/71 99 02/24/20 09:00 97 H 12 113/68 100 02/24/20 08:30 128 H 13 175/81 91 02/24/20 08:29 127 H 162/81 02/24/20 08:12 126 H 18 193/82 100 02/24/20 08:00 128 H 22 187/89 02/24/20 07:30 126 H 19 158/72 99 02/24/20 07:00 125 H 21 153/80 98 02/24/20 06:30 123 H 15 139/76 98 02/24/20 06:00 122 H 18 135/73 98 02/24/20 05:56 122 H 145/84 02/24/20 05:30 95 H 14 116/59 97 02/24/20 05:00 103 H 16 140/71 99 02/24/20 04:30 103 H 12 140/82 98 02/24/20 04:26 126 H 02/24/20 04:00 111 H 15 147/81 98 02/24/20 03:41 98.8 F 02/24/20 03:30 122 H 16 170/90 98 02/24/20 03:05 82 4 L 116/49 99 02/24/20 03:00 123 H 14 163/84 99 02/24/20 02:30 82 16 116/49 99 02/24/20 02:00 81 15 129/58 99 02/24/20 01:30 81 16 167/84 99 02/24/20 01:00 81 18 122/42 99 02/24/20 00:30 92 H 16 122/42 99 02/24/20 00:12 81 81 02/24/20 00:00 85 16 108/54 98 02/23/20 23:30 107 H 11 L 154/74 99 02/23/20 23:28 98.9 F 02/23/20 23:12 100 H 170/96 02/23/20 23:07 107 H 2 L 154/95 99 02/23/20 23:00 120 H 13 189/102 97 02/23/20 22:30 107 H 19 169/79 98 02/23/20 22:04 108 H 16 189/105 99 02/23/20 22:00 107 H 18 154/95 99 02/23/20 21:30 106 H 13 169/91 99 02/23/20 21:00 97 H 20 177/85 99 02/23/20 20:30 97 H 12 169/81 99 02/23/20 20:00 116 H 16 124/50 99 02/23/20 19:55 98.8 F 02/23/20 19:30 89 13 144/65 99 02/23/20 19:17 88 141/68 99 02/23/20 19:00 112 H 17 188/77 99 02/23/20 18:30 102 H 16 147/71 99 02/23/20 18:27 109 H 147/71 02/23/20 18:00 94 H 17 130/58 99 02/23/20 17:30 87 14 132/54 98 02/23/20 17:00 87 22 111/64 99 02/23/20 16:30 87 13 139/76 100 02/23/20 16:00 98 F 86 16 149/74 100 02/23/20 15:48 109 H 150/75 99 02/23/20 15:30 85 16 165/84 100 02/23/20 15:00 84 15 158/83 100 02/23/20 14:30 89 13 151/73 100 02/23/20 14:08 114 H 179/85 02/23/20 14:00 98.7 F 112 H 13 181/89 100 02/23/20 13:58 114 H 178/92 02/23/20 13:30 70 16 162/69 100 02/23/20 13:00 64 16 168/66 100 02/23/20 12:44 74 168/66 100 02/23/20 12:30 63 13 157/65 100 02/23/20 12:29 98.6 F 77 16 155/79 02/23/20 12:20 71 117/62 02/23/20 12:15 72 114/64 02/23/20 12:00 98.6 F 95 H 12 154/67 100 02/23/20 11:45 80 154/67 02/23/20 11:30 69 15 141/66 100 02/23/20 11:15 136/56 02/23/20 11:00 68 17 98/60 100 - Physical Examination General: Other (intubated) HEENT: Positive: PERRL Cardiac: Positive: Tachycardia Abdomen: Positive: Other (post op) - Labs and Meds CBC 02/23/20 02/24/20 Range/Units 13:13 05:40 WBC 24.2 H 21.0 H (4.5-11.0) K/mm3 RBC 2.61 L 2.40 L (3.65-5.03) M/mm3 Hgb 8.3 L 7.3 L (10.1-14.3) gm/dl Hct 24.4 L D 23.4 L (30.3-42.9) % Plt Count 125 L 120 L (140-440) K/mm3 Comprehensive Metabolic Panel 02/24/20 02/24/20 Range/Units 05:40 09:05 Sodium 123 L D 134 L D (137-145) mmol/L Potassium 6.8 H* D 4.5 D (3.6-5.0) mmol/L Chloride 88.1 L 96 L (98-107) mmol/L Carbon Dioxide 19 L 23 (22-30) mmol/L BUN 83 H 89 H (7-17) mg/dL Creatinine 3.9 H 4.2 H (0.7-1.2) mg/dL Glucose 657 H* 262 H (65-100) mg/dL Calcium 8.1 L 8.4 (8.4-10.2) mg/dL
[2020-02-24] MEDS: INSULIN GLARGINE 100 UNITS/ML SUB-Q SCH ×2 (10:54→21:00)
--- NOTE | 2020-02-24 11:03 | Progress Note ---
Assessment and Plan - Patient Problems (1) Ischemic necrosis of small bowel Current Visit: Yes Status: Acute Plan to address problem: Assessment and Plan 74-year-old female status post 1. Exploratory laparotomy, enterocolonic anastamosis, closure of abdomen, application of wound vac, POD 8 2. Exploratory laparotomy, extensive small bowel resection, partial colon resection, placement of abthera vac, placement of right radial arterial line, 02/13/20 1. bowel ischemia with gangrene 2. sepsis 3. LITZY 4. Afib with RVR 5. Tobacco dependence 6. Venous duplex - L superficial femoral vein nonocclusive thrombus 7. Cdiff + CXR 02/20/20 - no residual disease CT C/A/P 02/19/20 - post operative changes of right colon. Anastamosis is intact. Generalized edema of abdominal wall. Pt currently hemodynamically stable. Plan: 1. neuro - Continue as needed pain control - fent gtt off, fent prn ordered for pain. Pt still with AMS. 2. CV - cardiology on board for Afib. H/H 7.3 <8.3<5.7 - s/p 2 Unit PRBC transfusion yesterday. These recurrent drops are probably a reflection of generalized oozing from multiple sites as a result of the anticoagulation. Anticoagulation remains on hold 3. Resp - vent management per ICU team, extubate when criteria met. D/W Dr. Cervantes - although patient off sedation now and doing well on CPAP trial, mental status precludes safe extubation. If patient unable to wean by end of the week, may need to consider trach. 4. GI - Cont TF via NGT, continue to adv to goal as tolerated. Hold if residual >250cc. Pt continues to have bowel function - diarrhea expected, Continue incisional wound VAC - monitor output. GI ppx - protonix IV 5. - strict I/Os. Nephrology on board, HD started. 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 6. ID - continue abx per ID. leukocytosis trending down. No change in abdominal status. Source possibly UTI. Could also be clot related. UCx/BCx - neg. 7. Endo - strict glucose control 8. Musc - turning q2 as per protocol, skin breakdown precautions, SCDs 9. FEN - Cont TF, Continue TPN until pt tolerating TF at goal, replace lytes as needed. Patient's family was able to visit yesterday. I spoke with granddaughter Funmi over telephone yesterday. Electrical Maintenance Man notes reviewed and recs appreciated. Thank you, please call with questions. Subjective Date of service: 02/24/20 Narrative: Pt seen and examined. No overall change in condition. No f/c. Objective Vital Signs - 12hr 02/23/20 02/23/20 02/23/20 23:07 23:12 23:28 Temperature 98.9 F Pulse Rate 107 H 100 H Pulse Rate [ From Monitor] Respiratory 2 L Rate Blood Pressure 154/95 170/96 O2 Sat by Pulse 99 Oximetry 02/23/20 02/24/20 02/24/20 23:30 00:00 00:12 Temperature Pulse Rate 107 H 85 81 Pulse Rate [ 81 From Monitor] Respiratory 11 L 16 Rate Blood Pressure 154/74 108/54 O2 Sat by Pulse 99 98 Oximetry 02/24/20 02/24/20 02/24/20 00:30 01:00 01:30 Temperature Pulse Rate 92 H 81 81 Pulse Rate [ From Monitor] Respiratory 16 18 16 Rate Blood Pressure 122/42 122/42 167/84 O2 Sat by Pulse 99 99 99 Oximetry 02/24/20 02/24/20 02/24/20 02:00 02:30 03:00 Temperature Pulse Rate 81 82 123 H Pulse Rate [ From Monitor] Respiratory 15 16 14 Rate Blood Pressure 129/58 116/49 163/84 O2 Sat by Pulse 99 99 99 Oximetry 02/24/20 02/24/20 02/24/20 03:05 03:30 03:41 Temperature 98.8 F Pulse Rate 82 122 H Pulse Rate [ From Monitor] Respiratory 4 L 16 Rate Blood Pressure 116/49 170/90 O2 Sat by Pulse 99 98 Oximetry 02/24/20 02/24/20 02/24/20 04:00 04:26 04:30 Temperature Pulse Rate 111 H 103 H Pulse Rate [ 126 H From Monitor] Respiratory 15 12 Rate Blood Pressure 147/81 140/82 O2 Sat by Pulse 98 98 Oximetry 02/24/20 02/24/20 02/24/20 05:00 05:30 05:56 Temperature Pulse Rate 103 H 95 H 122 H Pulse Rate [ From Monitor] Respiratory 16 14 Rate Blood Pressure 140/71 116/59 145/84 O2 Sat by Pulse 99 97 Oximetry 06/02/24/20 02/24/20 06:00 06:30 07:00 Temperature Pulse Rate 122 H 123 H 125 H Pulse Rate [ From Monitor] Respiratory 18 15 21 Rate Blood Pressure 135/73 139/76 153/80 O2 Sat by Pulse 98 98 98 Oximetry 02/24/20 02/24/20 02/24/20 07:30 08:00 08:12 Temperature Pulse Rate 126 H 128 H 126 H Pulse Rate [ From Monitor] Respiratory 19 22 18 Rate Blood Pressure 158/72 187/89 193/82 O2 Sat by Pulse 99 100 Oximetry 02/24/20 02/24/20 02/24/20 08:29 08:30 09:00 Temperature Pulse Rate 127 H 128 H 97 H Pulse Rate [ From Monitor] Respiratory 13 12 Rate Blood Pressure 162/81 175/81 113/68 O2 Sat by Pulse 91 100 Oximetry 02/24/20 02/24/20 09:30 10:00 Temperature Pulse Rate 118 H 121 H Pulse Rate [ From Monitor] Respiratory 15 14 Rate Blood Pressure 128/71 129/75 O2 Sat by Pulse 99 100 Oximetry - General physical appearance Narrative Exam: Gen: Intubated, opens eyes to voice and spontaneously. Does not follow commands ENT: ETT and NGT in place. TF running. CV: S1, S2+ Resp: on vent - CPAP mode. No audible wheezes Abd: soft, NT, ND. Wound vac in place - scant serous drainage in tubing. Good seal, no leak. Ext: generalized edema ; Acevedo with clear yellow urine. Rectal tube with dark green stool. - Labs 02/24/20 05:40 02/24/20 09:05 Diabetes panel 02/24/20 02/24/20 Range/Units 05:40 09:05 Sodium 123 L D 134 L D (137-145) mmol/L Potassium 6.8 H* D 4.5 D (3.6-5.0) mmol/L Chloride 88.1 L 96 L (98-107) mmol/L Carbon Dioxide 19 L 23 (22-30) mmol/L BUN 83 H 89 H (7-17) mg/dL Creatinine 3.9 H 4.2 H (0.7-1.2) mg/dL Glucose 657 H* 262 H (65-100) mg/dL Calcium 8.1 L 8.4 (8.4-10.2) mg/dL Calcium panel 02/24/20 02/24/20 Range/Units 05:40 09:05 Calcium 8.1 L 8.4 (8.4-10.2) mg/dL Phosphorus 4.90 H (2.5-4.5) mg/dL Pituitary panel 02/24/20 02/24/20 Range/Units 05:40 09:05 Sodium 123 L D 134 L D (137-145) mmol/L Potassium 6.8 H* D 4.5 D (3.6-5.0) mmol/L Chloride 88.1 L 96 L (98-107) mmol/L Carbon Dioxide 19 L 23 (22-30) mmol/L BUN 83 H 89 H (7-17) mg/dL Creatinine 3.9 H 4.2 H (0.7-1.2) mg/dL Glucose 657 H* 262 H (65-100) mg/dL Calcium 8.1 L 8.4 (8.4-10.2) mg/dL Adrenal panel 02/24/20 02/24/20 Range/Units 05:40 09:05 Sodium 123 L D 134 L D (137-145) mmol/L Potassium 6.8 H* D 4.5 D (3.6-5.0) mmol/L Chloride 88.1 L 96 L (98-107) mmol/L Carbon Dioxide 19 L 23 (22-30) mmol/L BUN 83 H 89 H (7-17) mg/dL Creatinine 3.9 H 4.2 H (0.7-1.2) mg/dL Glucose 657 H* 262 H (65-100) mg/dL Calcium 8.1 L 8.4 (8.4-10.2) mg/dL
[2020-02-24] MEDS ORDERED: FUROSEMIDE 100 MG/10 ML INJ IV ONE ×2 (12:30→16:00)
[2020-02-24 15:11] LABS: Band Neutrophils # (Manual) 0.4 K/mm3; Basophils % (Manual) 0 % (0.0-1.8); Total Cells Counted 100
[2020-02-24 15:14] LABS: Anisocytosis Few; Hypochromasia Few; Macrocytosis Few; Platelet Estimate Consistent w Auto
[2020-02-24] MEDS: fentaNYL 100 MCG/2 ML INJ IV PRN (16:30)
--- NOTE | 2020-02-24 16:33 | Progress Note ---
Assessment and Plan Assessment and plan: --Acute hypoxic resp failure: Pulm following. On ventilatory support Wean as tolerated and extubate, pulmonary critical following --Anemia; requiring multiple units of PRBC, total 5 units transfusion Hb 7.3 today, monitor H&H and transfuse additional PRBC as needed --Sepsis: due to ischemic bowel. Continue antibiotics per ID, surgery --Peritonitis :secondary to ischemia/gangrene of Small bowel and Cecum. s/p Exploratory laparotomy, extensive small bowel resection, partial colon resection, placement of abthera vac on 02/13/2020. S/p exploratory laparotomy, enterocolonic anastamosis, closure of abdomen, application of wound vac on 02/15 --UTI : Continue antibiotics per ID. --C. difficile colitis. [Positive C. difficile test] contact isolation,p.o. vancomycin --Diarrhea: resolved prior to presentation, doubt C diff, likely from ischemic bowel. --Presumed infected renal cyst. ID following --Diabetes Mellitus type 2:Tight glycemic control, accucheks and ssri Insulin as needed --Hyponatremia; closely monitor electrolytes, mild improvement, gentle hydration --LITZY on CKD: Renally adjust antibiotics, hemodialysis as needed nephrology following --Right saphenous vein DVT. Anticoagulation 02/18/2020. Patient still with oral ETT on mechanical ventilation. Patient currently with PSVT trials, FiO2 30% pressure support 12 and PEEP 6. Continue to wean as tolerated. Consider extubation today. However, chest x-ray today reveals developing right pleural effusion. Continue wound care per wound team. Continue incisional wound VAC. Continue strict n.p.o. and NGT to low inte rmittent suction. Continue IV antibiotics per ID 02/19/2020. Patient currently with AC mode ventilation rate 16, tidal volume 450, FiO2 30%, PEEP 6. Continue to wean per protocol and pulmonary jorge mmendations. Patient failed PSV secondary to tachypnea today. Continue wound care per wound team. Continue incisional wound VAC. Continue strict n.p.o. and NGT to low intermittent suction. Continue IV antibiotics per ID. Creatinine stable today at 5.1/5.2 and remains non-oliguric; no indication for renal replacement therapy emergently per nephrology. Nephrology to administer 100 mg of IV Lasix today to further promote diuresis and help with metabolic acidosis. Remains at high risk for needing renal replacement therapy 02/20/2020. Patient currently with AC mode ventilation rate 16, tidal volume 450, FiO2 30%, PEEP 6. Continue to wean per protocol and pulmonary recommendations. Patient failed PSV trials. Patient with right lower extremity DVT. Continue anticoagulation which patient is currently on. Patient also with C. difficile colitis/C. difficile positive. We will start p.o. vancomycin. Acute kidney injury on CKD continues to worsen. Therefore, patient will likely need hemodialysis. Defer to nephrology. 02/21/2020. Patient remains on mechanical ventilation AC mode, rate 16, tidal volume 450, FiO2 30%. Continue weaning per protocol. 2 units PRBCs ordered stat for severe anemia. Follow-up CBC posttransfusion. Patient currently on anticoagulation for right lower extremity DVT. Continue wound care. BG elevated in the 300s. We will start Lantus 10 units at bedtime. 02/22/2020. Patient remains on mechanical ventilation AC mode rate 16, tidal volume 450 and FiO2 30%. Continue PSV trials urine culture found to be negative. Continue p.o. vancomycin for C. difficile. Continue cefepime, Flagyl and fluconazole for sepsis/peritonitis. Blood cultures thus far negative. Patient s/p PRBCs for severe anemia. Hemoglobin stable at 7.4. Follow-up CBC in a.m. Patient currently on anticoagulation for right lower extremity DVT. 02/23/20. Anticoagulation for A. fib currently on hold due to anemia. Patient is s/p PRBCs. We will follow-up H&H. Continue to feed via NG tube and advance as tolerated. Continue TPN until patient tolerating tube feeding at goal. Continue wound VAC and monitor drainage. With regards her renal function, LITZY on CKD 3--with ATN, hemodialysis per nephrology. S/p IV Lasix 100mg yesterday with ~1L urine output; will administer another high dose IV lasix bolus on non- HD days to encourage ongoing volume removal and minimize HD UF needs. Continue antibiotics per ID. Leukocytosis likely secondary to UTI. CT C/A/P 02/19/20 - post operative changes of right colon. Anastamosis is intact. Generalized edema of abdominal wall. Urine and blood cultures were found to be negative. 02/24/20; on vent PSV, CPAP mode, wean as tolerated and extubate, transition TPN to full dose tube feeding HD as needed, no HD recommended today The high probability of a clinically significant, sudden or life threatening deterioration of the [respiratory] system(s) required my full and direct attention, intervention and personal management. The aggregate critical care time was [35] minutes. This time is in addition to time spent performing reported procedures but includes the following: [x] Data Review and interpretation [x] Patient assessment and monitoring of vital signs [x] Documentation [x] Medication orders and management History Interval history: Patient seen and examined at the bedside this morning in ICU Patient's chart medications, test reports reviewed Patient orally intubated on ventilatory support And very mild distress Vital signs noted Hospitalist Physical - Constitutional Vitals: Temp Pulse Resp BP Pulse Ox 99.1 F 128 H 21 142/70 99 02/24/20 12:00 02/24/20 14:30 02/24/20 14:30 02/24/20 14:30 02/24/20 14:30 General appearance: Present: mild distress, well-nourished, obese, other (Intubated, on vent) - EENT Eyes: Present: PERRL, EOM intact - Neck Neck: Present: supple, normal ROM - Respiratory Respiratory effort: normal Respiratory: bilateral: diminished, rhonchi, negative: rales, wheezing - Cardiovascular Rhythm: regular Heart Sounds: Present: S1 & S2 - Extremities Extremities: no ischemia, No edema - Abdominal General gastrointestinal: soft, non-tender, non-distended, normal bowel sounds - Integumentary Integumentary: Present: clear, warm - Psychiatric Psychiatric: other (Intubated on vent) - Neurologic Neurologic: other (Intubated on vent) HEART Score - HEART Score Troponin: Troponin T < 0.010 ng/mL (0.00-0.029) 02/11/20 15:27 Results - Labs CBC & Chem 7: 02/24/20 05:40 02/24/20 09:05 Labs: Laboratory Last Values WBC 21.0 K/mm3 (4.5-11.0) H 02/24/20 05:40 RBC 2.40 M/mm3 (3.65-5.03) L 02/24/20 05:40 Hgb 7.3 gm/dl (10.1-14.3) L 02/24/20 05:40 Hct 23.4 % (30.3-42.9) L 02/24/20 05:40 MCV 97 fl (79-97) 02/24/20 05:40 MCH 30 pg (28-32) 02/24/20 05:40 MCHC 31 % (30-34) 02/24/20 05:40 RDW 15.8 % (13.2-15.2) H 02/24/20 05:40 Plt Count 120 K/mm3 (140-440) L 02/24/20 05:40 Add Manual Diff Complete 02/24/20 05:40 Total Counted 100 02/24/20 05:40 Seg Neutrophils % [employer] 02/14/20 04:29 Seg Neuts % (Manual) 87.0 % (40.0-70.0) H 02/24/20 05:40 Band Neutrophils % 2.0 % 02/24/20 05:40 Lymphocytes % (Manual) 5.0 % (13.4-35.0) L 02/24/20 05:40 Reactive Lymphs % (Man) 0 % 02/24/20 05:40 Monocytes % (Manual) 5.0 % (0.0-7.3) 02/24/20 05:40 Eosinophils % (Manual) 1.0 % (0.0-4.3) 02/24/20 05:40 Basophils % (Manual) 0 % (0.0-1.8) 02/24/20 05:40 Metamyelocytes % 0 % 02/24/20 05:40 Myelocytes % 0 % 02/24/20 05:40 Promyelocytes % 0 % 02/24/20 05:40 Blast Cells % 0 % 02/24/20 05:40 Nucleated RBC % 1.0 % (0.0-0.9) H 02/24/20 05:40 Seg Neutrophils # Man 18.3 K/mm3 (1.8-7.7) H 02/24/20 05:40 Band Neutrophils # 0.4 K/mm3 02/24/20 05:40 Lymphocytes # (Manual) 1.1 K/mm3 (1.2-5.4) L 02/24/20 05:40 Abs React Lymphs (Man) 0.0 K/mm3 02/24/20 05:40 Monocytes # (Manual) 1.1 K/mm3 (0.0-0.8) H 02/24/20 05:40 Eosinophils # (Manual) 0.2 K/mm3 (0.0-0.4) 02/24/20 05:40 Basophils # (Manual) 0.0 K/mm3 (0.0-0.1) 02/24/20 05:40 Metamyelocytes # 0.0 K/mm3 02/24/20 05:40 Myelocytes # 0.0 K/mm3 02/24/20 05:40 Promyelocytes # 0.0 K/mm3 02/24/20 05:40 Blast Cells # 0.0 K/mm3 02/24/20 05:40 WBC Morphology Not Reportable 02/24/20 05:40 Hypersegmented Neuts Not Reportable 02/24/20 05:40 Hyposegmented Neuts Not Reportable 02/24/20 05:40 Hypogranular Neuts Not Reportable 02/24/20 05:40 Smudge Cells Not Reportable 02/24/20 05:40 Toxic Granulation Not Reportable 02/24/20 05:40 Toxic Vacuolation Not Reportable 02/24/20 05:40 Dohle Bodies Not Reportable 02/24/20 05:40 Pelger-Huet Anomaly Not Reportable 02/24/20 05:40 Jyoti Rods Not Reportable 02/24/20 05:40 Platelet Estimate Consistent w auto 02/24/20 05:40 Clumped Platelets Not Reportable 02/24/20 05:40 Plt Clumps, EDTA Not Reportable 02/24/20 05:40 Large Platelets Not Reportable 02/24/20 05:40 Giant Platelets Not Reportable 02/24/20 05:40 Platelet Satelliting Not Reportable 02/24/20 05:40 Plt Morphology Comment Not Reportable 02/24/20 05:40 RBC Morphology Not Reportable 02/24/20 05:40 Dimorphic RBCs Not Reportable 02/24/20 05:40 Polychromasia Not Reportable 02/24/20 05:40 Hypochromasia Few 02/24/20 05:40 Poikilocytosis Not Reportable 02/24/20 05:40 Anisocytosis Few 02/24/20 05:40 Microcytosis Not Reportable 02/24/20 05:40 Macrocytosis Few 02/24/20 05:40 Spherocytes Not Reportable 02/24/20 05:40 Pappenheimer Bodies Not Reportable 02/24/20 05:40 Sickle Cells Not Reportable 02/24/20 05:40 Target Cells Not Reportable 02/24/20 05:40 Tear Drop Cells Not Reportable 02/24/20 05:40 Ovalocytes Not Reportable 02/24/20 05:40 Helmet Cells Not Reportable 02/24/20 05:40 Garcia-Willshire Bodies Not Reportable 02/24/20 05:40 [place] Rings Not Reportable 02/24/20 05:40 [place] Cells Not Reportable 02/24/20 05:40 Bite Cells Not Reportable 02/24/20 05:40 Crenated Cell Not Reportable 02/24/20 05:40 Elliptocytes Not Reportable 02/24/20 05:40 Acanthocytes (Spur) Not Reportable 02/24/20 05:40 Rouleaux Not Reportable 02/24/20 05:40 Hemoglobin C Crystals Not Reportable 02/24/20 05:40 Schistocytes Not Reportable 02/24/20 05:40 Malaria parasites Not Reportable 02/24/20 05:40 Babar Bodies Not Reportable 02/24/20 05:40 Hem Pathologist Commnt No 02/24/20 05:40 PT 16.9 Sec. (12.2-14.9) H 02/13/20 20:10 INR 1.41 (0.87-1.13) H 02/13/20 20:10 APTT 35.3 Sec. (24.2-36.6) 02/13/20 20:10 Heparin Anti-Xa Level 0.15 U.I./ml (0.3-0.7) L 02/23/20 02:55 ABG pH 7.318 pH Units (7.350-7.450) L 02/21/20 04:16 ABG pCO2 42.7 mm Hg 02/21/20 04:16 ABG pO2 100.0 mm Hg (80.0-90.0) H 02/21/20 04:16 ABG HCO3 21.4 mmol/L (20.0-26.0) 02/21/20 04:16 ABG O2 Saturation 97.2 % (95.0-99.0) 02/21/20 04:16 ABG O2 Content 12.3 (0.0-44) 02/21/20 04:16 ABG Base Excess -4.4 mmol/L (-2.0-3.0) L 02/21/20 04:16 ABG Hemoglobin 9.1 gm/dl (12.0-16.0) L 02/21/20 04:16 ABG Carboxyhemoglobin 1.5 % (0.0-5.0) 02/21/20 04:16 ABG Methemoglobin 0.7 % (0.0-1.5) 02/21/20 04:16 Oxyhemoglobin 95.2 % (95.0-99.0) 02/21/20 04:16 FiO2 30 % 02/21/20 04:16 Sodium 134 mmol/L (137-145) L D 02/24/20 09:05 Potassium 4.5 mmol/L (3.6-5.0) D 02/24/20 09:05 Chloride 96 mmol/L (98-107) L 02/24/20 09:05 Carbon Dioxide 23 mmol/L (22-30) 02/24/20 09:05 Anion Gap 20 mmol/L 02/24/20 09:05 BUN 89 mg/dL (7-17) H 02/24/20 09:05 Creatinine 4.2 mg/dL (0.7-1.2) H 02/24/20 09:05 Estimated GFR 10 ml/min 02/24/20 09:05 BUN/Creatinine Ratio 21 % 02/24/20 09:05 Glucose 262 mg/dL (65-100) H 02/24/20 09:05 POC Glucose 217 (70-105) H 02/24/20 12:11 Ketones Quantitative Negative (Negative) 02/13/20 14:51 Lactic Acid 0.70 mmol/L (0.7-2.0) 02/14/20 Unknown Calcium 8.4 mg/dL (8.4-10.2) 02/24/20 09:05 Phosphorus 4.90 mg/dL (2.5-4.5) H 02/24/20 05:40 Magnesium 2.50 mg/dL (1.7-2.3) H 02/24/20 05:40 Total Bilirubin 0.20 mg/dL (0.1-1.2) 02/12/20 04:58 Direct Bilirubin < 0.2 mg/dL (0-0.2) 02/11/20 15:27 Indirect Bilirubin 0.2 mg/dL 02/11/20 15:27 AST 16 units/L (5-40) 02/12/20 04:58 ALT 24 units/L (7-56) 02/12/20 04:58 Alkaline Phosphatase 127 units/L (35-129) 02/12/20 04:58 Troponin T < 0.010 ng/mL (0.00-0.029) 02/11/20 15:27 Total Protein 7.0 g/dL (6.3-8.2) 02/12/20 04:58 Albumin 3.5 g/dL (3.9-5) L 02/12/20 04:58 Albumin/Globulin Ratio 1.0 % 02/12/20 04:58 Triglycerides 238 mg/dL (2-149) H 02/17/20 03:45 Lipase 60 units/L (13-60) 02/13/20 14:51 Urine Color Yellow (Yellow) 02/19/20 14:00 Urine Turbidity Cloudy (Clear) 02/19/20 14:00 Urine pH 5.0 (5.0-7.0) 02/19/20 14:00 Ur Specific [place] 1.007 (1.003-1.030) 02/19/20 14:00 Urine Protein 100 mg/dl mg/dL (Negative) 02/19/20 14:00 Urine Glucose (UA) >=500 mg/dL (Negative) 02/19/20 14:00 Urine Ketones Tr mg/dL (Negative) 02/19/20 14:00 Urine Blood Lg (Negative) 02/19/20 14:00 Urine Nitrite Neg (Negative) 02/19/20 14:00 Urine Bilirubin Neg (Negative) 02/19/20 14:00 Urine Urobilinogen < 2.0 mg/dL (<2.0) 02/19/20 14:00 Ur Leukocyte Esterase Lg (Negative) 02/19/20 14:00 Urine WBC (Auto) 166.0 /HPF (0.0-6.0) H 02/19/20 14:00 Urine RBC (Auto) 20.0 /HPF (0.0-6.0) 02/19/20 14:00 U Epithel Cells (Auto) 2.0 /HPF (0-13.0) 02/19/20 14:00 Urine Bacteria (Auto) 1+ /HPF (Negative) 02/19/20 14:00 Urine WBC Clumps 3+ /HPF 02/19/20 14:00 Urine Mucus Few /HPF 02/19/20 14:00 Urine Yeast (Budding) 3+ /HPF 02/19/20 14:00 Urine Eosinophils None seen (None Seen) 02/12/20 Unknown Urine Creatinine 35.3 mg/dL (0.1-20.0) H 02/12/20 Unknown Protein/Creatinin Ratio 22.55 02/12/20 Unknown Urine Total Protein 796 mg/dL (5-11.8) H 02/12/20 Unknown C. difficile Tox (PCR) Positive (Negative) 02/19/20 12:46 Hepatitis A IgM Ab Non-reactive (NonReactive) 02/21/20 10:30 Hep Bs Antigen Non-reactive (Negative) 02/21/20 10:30 Hep B Core IgM Ab Non-reactive (NonReactive) 02/21/20 10:30 Hepatitis C Antibody Non-reactive (NonReactive) 02/21/20 10:30 Blood Type O NEGATIVE 02/21/20 06:00 Antibody Screen Negative 02/21/20 06:00 Crossmatch See Detail 02/21/20 06:00 Microbiology: Microbiology 02/19/20 15:30 Peripheral/Venous Blood Culture - Preliminary NO GROWTH AFTER 4 DAYS 02/19/20 15:00 Peripheral/Venous Blood Culture - Preliminary NO GROWTH AFTER 4 DAYS - Diagnostic Impressions Diagnostic Impressions: Echocardiogram 02/13/20 18:02 Transthoracic Echocardiogram Indication: Afib BP: 101/70 HR: 128 Findings Left Ventricle: The left ventricular chamber size is normal. Mild to moderate concentric left ventricular hypertrophy is observed. Global left ventricular wall motion and contractility are within normal limits. Global left ventricular systolic function is normal. The estimated ejection fraction is 60-65%. Left Atrium: The left atrium is mild to moderately dilated. Right Ventricle: The right ventricular cavity size is normal. The right ventricular global systolic function is normal. Right Atrium: The right atrium appears normal. The interatrial septum appears normal. Aortic Valve: The aortic valve structure is normal. The aortic valve leaflets are mildly thickened. There is no evidence of aortic regurgitation. There is no evidence of aortic stenosis. Mitral Valve: The mitral valve leaflets appear normal. There is no evidence of mitral regurgitation. There is no evidence of mitral stenosis. Tricuspid Valve: The tricuspid valve leaflets are normal. There is mild to moderate tricuspid regurgitation. The right ventricular systolic pressure is calculated at 39 mmHg. There is evidence of pulmonary hypertension. There is no tricuspid stenosis. Pulmonic Valve: The pulmonic valve appears normal. There is no evidence of pulmonic regurgitation. There is no pulmonic stenosis. Pericardium: A pericardial effusion is visualized. There is a minimial pericardial effusion. A left pleural effusion is present. There is a moderate pleural effusion. Aorta: There is no dilatation of the ascending aorta. There is no dilatation of the aortic arch. There is no dilatation of the descending thoracic aorta. There is no dilatation of the aortic root. Venous: The inferior vena cava appears normal in size. Measurements Chambers 2D Name Value Normal Range IVSd (2D) 1.34 cm (0.6 - 1.1) LVPWd (2D) 1.35 cm (0.6 - 1.1) LVIDd (2D) 4.72 cm (3.7 - 5.6) LVIDs (2D) 3.28 cm (2 - 3.8) LV FS (2D) 30.38 % - EF Teichholz (2D) 57.75 % - Ao root diameter (2D) 3.02 cm (2 - 3.7) Volumes/Mass Name Value Normal Range LA ESV SP 4CH (A/L) 55.87 ml - LA ESV SP 2CH (A/L) 67.65 ml - LA ESV BP (A/L) 63.67 ml - LA ESV SP 4CH (MOD) 54.25 ml - LA ESV SP 2CH (MOD) 63.2 ml - LA ESV BP (MOD) 60.49 ml - LA ESV BP (MOD) index 34.18 ml/m2 - LV EDV SP 4CH (MOD) 70.96 ml - LV ESV SP 4CH (MOD) 23.49 ml - EF SP 4CH (MOD) 66.89 % - LV EDV SP 2CH (MOD) 61.41 ml - LV ESV SP 2CH (MOD) 27.43 ml - EF SP 2CH (MOD) 55.33 % - LV EDV BP 69.85 ml - LV ESV BP 26.44 ml - BP EF (MOD) 62.14 % - Aortic Valve Name Value Normal Range AV Vmax 1.29 m/sec - AV VTI 18.56 cm - AV peak gradient 6.69 mmHg - AV mean gradient 3.39 mmHg - LVOT diameter 1.95 cm - LVOT Vmax 1.14 m/sec - LVOT VTI 16.24 cm - LVOT peak gradient 5.21 mmHg - LVOT mean gradient 2.04 mmHg - SV LVOT 48.71 ml - TABATHA (continuity Vmax) 2.65 cm2 - TABATHA (continuity VTI) 2.62 cm2 - Ascending Ao 2.96 cm - Tricuspid Valve Name Value Normal Range TR Vmax 2.47 m/sec - TR peak gradient 24 mmHg - RAP 15 mmHg - RVSP 39 mmHg - Pulmonic Valve/Qp:Qs Name Value Normal Range PV Vmax 1.15 m/sec - PV peak gradient 5.33 mmHg - PV acceleration time 68.51 msec - Acevedo/IV: Voiding Method Indwelling Catheter IV Catheter Type [Right VAS Cath Internal Jugular] IV Catheter Type [Left Upper PICC Line arm] IV Catheter Type [Right INT / Saline Lock Antecubital] IV Catheter Type [Right Peripheral IV Forearm] IV Catheter Type [Left Forearm INT / Saline Lock ] IV Catheter Type [Right Hand] Peripheral IV Active Medications - Current Medications Current Medications: Generic Name Dose Route Start Last Admin Trade Name Freq PRN Reason Stop Dose Admin Acetaminophen 650 mg 02/11/20 19:01 02/12/20 17:00 Tylenol PO 650 mg Q4H PRN Administration Pain MILD(1-3)/Fever >100.5/ADAMS Amiodarone HCl 200 mg 02/24/20 10:00 02/24/20 10:31 Cordarone PO 200 mg QDAY NADER Administration Lipase/Protease/Amylase 1 each 02/20/20 10:28 Pancreazflorentin Daugherty 10,500 Unit FEEDTUBE PRN PRN For Clogged Feeding Tube Dextrose 50 ml 02/19/20 14:58 D50w (25gm) Syringe IV Q30MIN PRN Hypoglycemia Protocol Diltiazem HCl 30 mg 02/23/20 12:00 02/24/20 11:56 Cardizem PO 30 mg Q6HR NADER Administration Famotidine 20 mg 02/24/20 10:00 02/24/20 10:31 Pepcid PO 20 mg DAILY NADER Administration Fentanyl 50 mcg 02/19/20 15:30 02/19/20 15:29 Sublimaze IV 50 mcg Q10MIN PRN Administration ANALGESIA Fentanyl 50 mcg 02/24/20 09:52 Sublimaze IV Q2HR PRN Pain, Moderate (4-6) Hydromorphone HCl 1 mg 02/24/20 09:54 Dilaudid IV Q3H PRN Pain , Severe (7-10) Hydrophilic Ointment 1 applic 02/13/20 19:41 Vaseline Lip Therapy TP Q2HR PRN Dry Lips Heparin Sodium/Sodium Chloride 25,000 unit in 500 mls @ 20 mls/hr 02/13/20 20:00 02/23/20 03:47 Heparin/ 0.45% Nacl-25,000 Unit/500 Ml IV 0 units/hr TITR NADER 0 mls/hr Titration Protocol 1,000 UNITS/HR Fentanyl Citrate 2,000 mcg in 100 mls @ 4.05 mls/hr 02/19/20 16:00 02/24/20 07:00 Fentanyl Drip Premix IV 0 mcg/kg/hr TITR NADER 0 mls/hr Titration Protocol 1 MCG/KG/HR Sodium Chloride 100 mls @ 999 mls/hr 02/22/20 12:30 Nacl 0.9% IV FABIOLA PRN Hypotension Amino Acids/Electrolytes/Dextrose 1,800 mls @ 75 mls/hr 02/23/20 20:00 02/23/20 20:36 Tpn Adult IV 02/24/20 19:59 75 mls/hr DAILY@1999 [facility] Administration Protocol Amino Acids/Electrolytes/Dextrose 1,200 mls @ 50 mls/hr 02/24/20 20:00 Tpn Adult IV 02/25/20 19:59 DAILY@1999 [facility] Protocol Insulin Glargine 40 units 02/24/20 22:00 Lantus SUB-Q BID [facility] Insulin Human Lispro 0 unit 02/19/20 18:00 02/24/20 12:08 Humalog SUB-Q 4 unit Q6HR [facility] Administration Protocol Labetalol HCl 20 mg 02/13/20 18:00 02/24/20 08:29 Labetalol IV 20 mg Q4H PRN Administration SBP >150 Metoprolol Tartrate 2.5 mg 02/13/20 18:00 02/18/20 04:41 Metoprolol IV 2.5 mg Q6HR PRN Administration HR >130 Multi-Ingred Cream/Lotion/Oil/Oint 1 applic 02/13/20 19:41 Artificial Tears Ophth Oint OU Q4HR PRN Dry Eye(s) Sertraline HCl 50 mg 02/23/20 10:00 02/24/20 10:31 Zoloft PO 50 mg QDAY NADER Administration Simple Syrup 15 ml 02/20/20 10:28 Simple Syrup FEEDTUBE PRN PRN Hypoglycemia Simple Syrup 30 ml 02/20/20 10:28 Simple Syrup FEEDTUBE PRN PRN Hypoglycemia Sodium Bicarbonate 325 mg 02/20/20 10:28 Sodium Bicarbonate FEEDTUBE PRN PRN For Clogged Feeding Tube Sodium Chloride 10 ml 02/11/20 22:00 02/24/20 10:09 Sodium Chloride Flush Syringe 10 Ml IV 10 ml BID NADER Administration Sodium Chloride 10 ml 02/11/20 19:01 02/15/20 22:43 Sodium Chloride Flush Syringe 10 Ml IV 10 ml PRN PRN Administration LINE FLUSH Vancomycin HCl 125 mg 02/20/20 15:00 02/24/20 11:56 Vancomycin Po PO 02/27/20 06:01 125 mg Q6HR NADER Administration Nutrition/Malnutrition Assess - Dietary Evaluation Nutrition/Malnutrition Findings: Nutrition Notes Start: 02/14/20 09: 49 Freq: Status: Active Protocol: Document 02/24/20 10:43 LP (Rec: 02/24/20 10:46 LP [id number]) Nutrition Notes Initial or Follow up Reassessment Current Diagnosis Acute Kidney Injury,Decubitus( Pressure Ulcer),Diabetes, Hypertension,Hyperlipidemia Other Pertinent Diagnosis ischemic bowel with gangrene s /p exp lap, Current Diet CPN at 84ml/hr + Vital 1.2 at 35ml/hr Labs/Tests Na 134 Pertinent Medications Reviewed Height 5 ft 5 in Weight 93.6 kg [place] Body Weight (kg) 56.81 BMI 34.3 Weight Status Obese Subjective/Other Information CPN day 7. Pt currently tolerating TF at 35ml/hr and should be at 45ml/hr later today. Will order 1 more bag of TPN so pt will be at goal by tomorrow. Pt having 200ml residuals but RN aware not to stop unless greater than 250ml . Percent of energy/protein needs met: 47%/100% Burn Absent Trauma Absent Current % PO Negligible Minimum of two criteria No #2 Nutrition Diagnosis Inadequate oral intake Diagnosis Progress(for reassessment Continues documentation) #1 Nutrition Diagnosis Altered GI function As Evidenced by Signs and Symptoms Pt tolerating TF at 35ml/hr Diagnosis Progress(for reassessment Improved documentation) Is patient on ventilator? Yes Is Patient Ambulatory and/or Out of Bed No REE-([facility]-confined to bed) [phone] Calculation Used for Recommendations [facility] Additional Notes Pro needs 1.2-2g/k-140g/ day Fluid needs 1ml/kcal Nutrition Intervention Change Diet Order: TPN and TF Nutrition Support: Reduce CPN to 50ml/hr: 5% dextrose, 4.2% amino acid, 36mEq Na, 12mEq K, 2mEq Mg, 3mEq Ca, 0mmol Phos, Chloride: Acetate 50:50, MVI Vital 1.2 at 50ml/hr (goal rate) Flush with 100ml q4h Kcal 404 Protein (gm) 50 Carbohydrates (gm) 60 Fat (gm) 0 Fluid (mL) 1,200 Fiber (gm) 0 Goal #1 Meet at least 75% of energy and protein needs Anticipated Discharge Needs: Unable to identify at this time Follow-Up By: 02/25/20 Additional Comments Labs in AM: BMP, Mg, Phos
[2020-02-24] MEDS ORDERED: TOTAL PARENTERAL NUTRITION 1,200 ML IV SCH (20:00)
[2020-02-24] MEDS: HYDROmorphone 1 MG/1 ML INJ IV PRN (20:49)
[2020-02-24] MEDS: ACETAMINOPHEN 325 MG TAB PO PRN (23:26)
[2020-02-25] MEDS: fentaNYL 100 MCG/2 ML INJ IV PRN (02:06)
[2020-02-25] MEDS: VANCOMYCIN 250 MG/10 ML ORAL LIQD PO SCH ×3 (05:29→18:27)
[2020-02-25] MEDS: dilTIAZem 30 MG TAB PO SCH ×3 (05:29→18:27)
[2020-02-25] MEDS: HYDROmorphone 1 MG/1 ML INJ IV PRN ×5 (05:30→18:27)
[2020-02-25] MEDS: METOPROLOL TARTRATE 5 MG/5 ML INJ IV PRN ×3 (05:49→15:16)
[2020-02-25] MEDS: INSULIN LISPRO 100 UNIT/ML SUB-Q SCH ×3 (05:55→17:41)
[2020-02-25 06:18] LABS: Alanine Aminotransferase 17 units/L (7-56); Albumin 2.3 g/dL (3.9-5); BUN/Creatinine Ratio 20; Blood Urea Nitrogen 100 mg/dL (7-17); Calcium 8.9 mg/dL (8.4-10.2); Hemolysis Index 1
[2020-02-25 06:20] LABS: Bilirubin,Direct < 0.2 mg/dL (0-0.2); Hematocrit 23.9 % (30.3-42.9); Hemoglobin 8.1 gm/dl (10.1-14.3); Mean Corpuscular HGB Conc 34 % (30-34); Mean Corpuscular Volume 93 fl (79-97); Platelet Count 147 K/mm3 (140-440); Red Blood Count 2.59 M/mm3 (3.65-5.03)
[2020-02-25 08:07] LABS: Anisocytosis 1+; Band Neutrophils # (Manual) 0.3 K/mm3; Basophils % (Manual) 0 % (0.0-1.8); Eosinophils % (Manual) 0 % (0.0-4.3); Total Cells Counted 100
[2020-02-25 08:08] LABS: Platelet Estimate Consistent w Auto
[2020-02-25] MEDS: FAMOTIDINE 20 MG TAB PO SCH (09:21)
[2020-02-25] MEDS: AMIODARONE 200 MG TAB PO SCH (09:21)
[2020-02-25] MEDS: SERTRALINE 50 MG TAB PO SCH (09:21)
[2020-02-25] MEDS: INSULIN GLARGINE 100 UNITS/ML SUB-Q SCH ×2 (09:22→21:15)
--- NOTE | 2020-02-25 10:08 | Progress Note ---
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 * leucocytosis * type 2 DM--uncontrolled * Acidosis * Hypokalemia * Hypocalcemia * Anemia * C diff + Plan: * Remain hopeful for renal recovery with minimal HD needs in near future * Tolerated HD well on 02/20 and 02/22 with reasonable UF * HD todayb (02/24) for additional UF and electrolyte management in setting of ongoing extubation trials * Will continue HD as needed moving forward based on volume and electrolyte assessment * S/p IV lasix 100mg bolus yesterday with urine output of 1.9L * Acidosis stable now * Insulin control per primary * Continue iv abx per ID recs * Surgery recs appreciated * PRBC transfusion prn per primary, holding heparin gtt * Daily lytes; strict i/os * Avoid nephrotoxins * vasopressors prn Thank for involving in the care of this critically ill patient. We will follow closely with you; please do not hesitate to call me on my cell at for any renal related issues. High risk for decompensation given clinical status Subjective Date of service: 02/25/20 Principal diagnosis: Ischemic Bowel Interval history: Chart reviewed for 24 hour events Objective - Exam Narrative Exam: Gen: Intubated, opens eyes ENT: ETT in place CV: s1, S2, on dilt gtt, amio gtt Resp: on vent Abd: soft Ext: no c/c/e : corcoran with clear yellow urine Neuro: opens eye spontaneously - Vital Signs Vital signs: Vital Signs - 12hr 02/24/20 02/24/20 02/24/20 22:30 23:00 23:26 Temperature Pulse Rate 124 H 126 H Respiratory 21 19 20 Rate Blood Pressure 169/79 167/74 O2 Sat by Pulse 98 99 Oximetry 02/24/20 02/24/20 02/25/20 23:27 23:30 00:00 Temperature 100.2 F H Pulse Rate 128 H 128 H 126 H Respiratory 19 19 Rate Blood Pressure 155/73 164/75 139/68 O2 Sat by Pulse 98 98 Oximetry 02/25/20 02/25/20 02/25/20 00:26 00:30 00:40 Temperature Pulse Rate 126 H 105 H Respiratory 20 19 Rate Blood Pressure 136/65 136/65 O2 Sat by Pulse 98 98 Oximetry 02/25/20 02/25/20 02/25/20 01:00 01:30 02:00 Temperature Pulse Rate 126 H 127 H 127 H Respiratory 21 19 24 Rate Blood Pressure 151/70 175/79 191/86 O2 Sat by Pulse 98 98 99 Oximetry 02/25/20 02/25/20 02/25/20 02:30 03:00 03:30 Temperature Pulse Rate 127 H 129 H 129 H Respiratory 21 27 H 24 Rate Blood Pressure 179/77 168/90 164/80 O2 Sat by Pulse 98 97 98 Oximetry 02/25/20 02/25/20 02/25/20 04:00 04:30 04:35 Temperature 99.9 F H Pulse Rate 131 H 130 H 130 H Respiratory 22 23 Rate Blood Pressure 172/74 145/82 145/82 O2 Sat by Pulse 98 98 97 Oximetry 02/25/20 02/25/20 02/25/20 05:00 05:29 05:30 Temperature Pulse Rate 131 H 132 H 131 H Respiratory 25 H 21 Rate Blood Pressure 180/87 178/79 182/77 O2 Sat by Pulse 98 98 Oximetry 02/25/20 02/25/20 02/25/20 05:49 06:00 06:30 Temperature Pulse Rate 133 H 130 H 97 H Respiratory 18 17 Rate Blood Pressure 158/76 122/64 107/57 O2 Sat by Pulse 98 99 Oximetry 02/25/20 02/25/20 02/25/20 07:00 07:19 07:30 Temperature Pulse Rate 98 H 111 H 105 H Respiratory 16 19 Rate Blood Pressure 107/56 106/58 O2 Sat by Pulse 98 99 Oximetry 02/25/20 02/25/20 02/25/20 08:00 08:30 08:50 Temperature 99.1 F Pulse Rate 127 H 129 H 130 H Respiratory 22 20 Rate Blood Pressure 156/75 174/84 168/78 O2 Sat by Pulse 99 98 98 Oximetry 02/25/20 02/25/20 02/25/20 09:00 09:20 09:30 Temperature Pulse Rate 130 H 131 H 128 H Respiratory 23 22 Rate Blood Pressure 168/78 156/75 149/75 O2 Sat by Pulse 98 98 Oximetry - Lab 02/25/20 05:25 02/25/20 05:25 Most recent lab results ABG pH 7.318 pH Units (7.350-7.450) L 02/21/20 04:16 ABG pCO2 42.7 mm Hg 02/21/20 04:16 ABG pO2 100.0 mm Hg (80.0-90.0) H 02/21/20 04:16 ABG HCO3 21.4 mmol/L (20.0-26.0) 02/21/20 04:16 ABG O2 Saturation 97.2 % (95.0-99.0) 02/21/20 04:16 Calcium 8.9 mg/dL (8.4-10.2) 02/25/20 05:25 Phosphorus 4.90 mg/dL (2.5-4.5) H 02/24/20 05:40 Magnesium 2.20 mg/dL (1.7-2.3) 02/25/20 05:25 Urine Creatinine 35.3 mg/dL (0.1-20.0) H 02/12/20 Unknown Urine Total Protein 796 mg/dL (5-11.8) H 02/12/20 Unknown Medications & Allergies - Medications Allergies/Adverse Reactions: Allergies clindamycin Allergy (Verified 02/11/20 14:52) Hives Home Medications: Home Medications Medication Instructions Recorded Confirmed Last Taken Type Doxazosin [Cardura] 4 mg PO QDAY 02/11/20 02/11/20 02/10/20 History Hydralazine HCl 50 mg PO DAILY 02/11/20 02/11/20 02/10/20 History Metoprolol 25 mg PO DAILY 02/11/20 02/11/20 02/10/20 History Sertraline [Zoloft] 50 mg PO QDAY 02/11/20 02/11/20 02/10/20 History amLODIPine [Norvasc] 10 mg PO DAILY 02/11/20 02/11/20 02/10/20 History glipiZIDE 10 mg PO BID 02/11/20 02/11/20 02/10/20 History Active Medications: Generic Name Dose Route Start Last Admin Trade Name Freq PRN Reason Stop Dose Admin Acetaminophen 650 mg 02/11/20 19:01 02/24/20 23:26 Tylenol PO 650 mg Q4H PRN Administration Pain MILD(1-3)/Fever >100.5/ADAMS Amiodarone HCl 200 mg 02/24/20 10:00 02/25/20 09:21 Cordarone PO 200 mg QDAY NADER Administration Lipase/Protease/Amylase 1 each 02/20/20 10:[address] 10,500 Unit FEEDTUBE PRN PRN For Clogged Feeding Tube Dextrose 50 ml 02/19/20 14:58 D50w (25gm) Syringe IV Q30MIN PRN Hypoglycemia Protocol Diltiazem HCl 30 mg 02/23/20 12:00 02/25/20 05:29 Cardizem PO 30 mg Q6HR NADER Administration Famotidine 20 mg 02/24/20 10:00 02/25/20 09:21 Pepcid PO 20 mg DAILY NADER Administration Fentanyl 50 mcg 02/19/20 15:30 02/19/20 15:29 Sublimaze IV 50 mcg Q10MIN PRN Administration ANALGESIA Fentanyl 50 mcg 02/24/20 09:52 02/25/20 02:06 Sublimaze IV 50 mcg Q2HR PRN Administration Pain, Moderate (4-6) Hydromorphone HCl 1 mg 02/24/20 09:54 02/25/20 08:30 Dilaudid IV 1 mg Q3H PRN Administration Pain , Severe (7-10) Hydrophilic Ointment 1 applic 02/13/20 19:41 Vaseline Lip Therapy TP Q2HR PRN Dry Lips Heparin Sodium/Sodium Chloride 25,000 unit in 500 mls @ 20 mls/hr 02/13/20 20:00 02/23/20 03:47 Heparin/ 0.45% Nacl-25,000 Unit/500 Ml IV 0 units/hr TITR NADER 0 mls/hr Titration Protocol 1,000 UNITS/HR Fentanyl Citrate 2,000 mcg in 100 mls @ 4.05 mls/hr 02/19/20 16:00 02/24/20 18:59 Fentanyl Drip Premix IV 0 mcg/kg/hr TITR NADER 0 mls/hr Titration Protocol 1 MCG/KG/HR Sodium Chloride 100 mls @ 999 mls/hr 02/22/20 12:30 Nacl 0.9% IV FABIOLA PRN Hypotension Amino Acids/Electrolytes/Dextrose 1,200 mls @ 50 mls/hr 02/24/20 20:00 02/24/20 20:37 Tpn Adult IV 02/25/20 19:59 50 mls/hr DAILY@2000 NADER Administration Protocol Insulin Glargine 40 units 02/24/20 22:00 02/25/20 09:22 Lantus SUB-Q 40 units BID NADER Administration Insulin Human Lispro 0 unit 02/19/20 18:00 02/25/20 05:55 Humalog SUB-Q 3 unit Q6HR NADER Administration Protocol Labetalol HCl 20 mg 02/13/20 18:00 02/24/20 18:07 Labetalol IV 20 mg Q4H PRN Administration SBP >150 Metoprolol Tartrate 2.5 mg 02/13/20 18:00 02/25/20 09:20 Metoprolol IV 2.5 mg Q6HR PRN Administration HR >130 Multi-Ingred Cream/Lotion/Oil/Oint 1 applic 02/13/20 19:41 Artificial Tears Ophth Oint OU Q4HR PRN Dry Eye(s) Sertraline HCl 50 mg 02/23/20 10:00 02/25/20 09:21 Zoloft PO 50 mg QDAY NADER Administration Simple Syrup 15 ml 02/20/20 10:28 Simple Syrup FEEDTUBE PRN PRN Hypoglycemia Simple Syrup 30 ml 02/20/20 10:28 Simple Syrup FEEDTUBE PRN PRN Hypoglycemia Sodium Bicarbonate 325 mg 02/20/20 10:28 Sodium Bicarbonate FEEDTUBE PRN PRN For Clogged Feeding Tube Sodium Chloride 10 ml 02/11/20 22:00 02/25/20 09:20 Sodium Chloride Flush Syringe 10 Ml IV 10 ml BID NADER Administration Sodium Chloride 10 ml 02/11/20 19:01 02/15/20 22:43 Sodium Chloride Flush Syringe 10 Ml IV 10 ml PRN PRN Administration LINE FLUSH Vancomycin HCl 125 mg 02/20/20 15:00 02/25/20 05:29 Vancomycin Po PO 02/27/20 06:01 125 mg Q6HR NADER Administration
--- NOTE | 2020-02-25 10:48 | Progress Note ---
Assessment and Plan Assessment and plan: --Acute hypoxic resp failure: Pulm following. On ventilatory support Wean as tolerated and extubate, pulmonary critical following --Anemia; requiring multiple units of PRBC, total 5 units transfusion Hb 7.3 today, monitor H&H and transfuse additional PRBC as needed --Atrial fibrillation; rate controlled continue Cardizem and amiodarone No anticoagulation in view of severe anemia requiring multiple units of PRBC Cardiology following --Sepsis: due to ischemic bowel. Completed antibiotics, ID surgery following --Peritonitis :secondary to ischemia/gangrene of Small bowel and Cecum. s/p Exploratory laparotomy, extensive small bowel resection, partial colon resection, placement of abthera vac on 02/13/2020. S/p exploratory laparotomy, enterocolonic anastamosis, closure of abdomen, application of wound vac on 02/15 --UTI : Completed antibiotics per ID. --C. difficile colitis. [Positive C. difficile test] contact isolation,p.o. vancomycin --Diarrhea: resolved prior to presentation, doubt C diff, likely from ischemic bowel. --Presumed infected renal cyst. ID following --Diabetes Mellitus type 2:Tight glycemic control, accucheks and ssri, Insulin as needed --Hyponatremia; closely monitor electrolytes, mild improvement, gentle hydration --LITZY on CKD: Renally adjust antibiotics, hemodialysis as needed nephrology following --Severe protein calorie malnutrition; nutrition supplements Supportive care --Right saphenous vein DVT.s/p Anticoagulation No anticoagulation due to severe anemia, closely monitor 02/18/2020. Patient still with oral ETT on mechanical ventilation. Patient currently with PSVT trials, FiO2 30% pressure support 12 and PEEP 6. Continue to wean as tolerated. Consider extubation today. However, chest x-ray today reveals developing right pleural effusion. Continue wound care per wound team. Continue incisional wound VAC. Continue strict n.p.o. and NGT to low intermittent suction. Continue IV antibiotics per ID 02/19/2020. Patient currently with AC mode ventilation rate 16, tidal volume 450, FiO2 30%, PEEP 6. Continue to wean per protocol and pulmonary recommendations. Patient failed PSV secondary to tachypnea today. Continue wound care per wound team. Continue incisional wound VAC. Continue strict n.p.o. and NGT to low intermittent suction. Continue IV antibiotics per ID. Creatinine stable today at 5.1/5.2 and remains non-oliguric; no indication for renal replacement therapy emergently per nephrology. Nephrology to administer 100 mg of IV Lasix today to further promote diuresis and help with metabolic acidosis. Remains at high risk for needing renal replacement therapy 02/20/2020. Patient currently with AC mode ventilation rate 16, tidal volume 450, FiO2 30%, PEEP 6. Continue to wean per protocol and pulmonary recom mendations. Patient failed PSV trials. Patient with right lower extremity DVT. Continue anticoagulation which patient is currently on. Patient also with C. difficile colitis/C. difficile positive. We will start p.o. vancomycin. Acute kidney injury on CKD continues to worsen. Therefore, patient will likely need hemodialysis. Defer to nephrology. 02/21/2020. Patient remains on mechanical ventilation AC mode, rate 16, tidal volume 450, FiO2 30%. Continue weaning per protocol. 2 units PRBCs ordered stat for severe anemia. Follow-up CBC posttransfusion. Patient currently on anticoagulation for right lower extremity DVT. Continue wound care. BG elevated in the 300s. We will start Lantus 10 units at bedtime. 02/22/2020. Patient remains on mechanical ventilation AC mode rate 16, tidal volume 450 and FiO2 30%. Continue PSV trials urine culture found to be negative. Continue p.o. vancomycin for C. difficile. Continue cefepime, Flagyl and fluconazole for sepsis/peritonitis. Blood cultures thus far negative. Patient s/p PRBCs for severe anemia. Hemoglobin stable at 7.4. Follow-up CBC in a.m. Patient currently on anticoagulation for right lower extremity DVT. 02/23/20. Anticoagulation for A. fib currently on hold due to anemia. Patient is s/p PRBCs. We will follow-up H&H. Continue to feed via NG tube and advance as tolerated. Continue TPN until patient tolerating tube feeding at goal. Continue wound VAC and monitor drainage. With regards her renal function, LITZY on CKD 3--with ATN, hemodialysis per nephrology. S/p IV Lasix 100mg yesterday with ~1L urine output; will administer another high dose IV lasix bolus on non- HD days to encourage ongoing volume removal and minimize HD UF needs. Continue antibiotics per ID. Leukocytosis likely secondary to UTI. CT C/A/P 02/19/20 - post operative changes of right colon. Anastamosis is intact. Generalized edema of abdominal wall. Urine and blood cultures were found to be negative. 02/24/20; on vent PSV, CPAP mode, wean as tolerated and extubate, transition TPN to full dose tube feeding HD as needed, no HD recommended today 02/25/20: Worsening leukocytosis, multifactorial secondary to UTI, C. difficile colitis On oral vancomycin, ID following, wean as tolerated and extubate, more dialysis today The high probability of a clinically significant, sudden or life threatening deterioration of the [respiratory] system(s) required my full and direct attention, intervention and personal management. The aggregate critical care time was [32] minutes. This time is in addition to time spent performing reporte d procedures but includes the following: [x] Data Review and interpretation [x] Patient assessment and monitoring of vital signs [x] Documentation [x] Medication orders and management History Interval history: Patient seen and examined at the bedside this morning Patient's chart, overnight events, tests medication list reviewed Patient remains intubated on ventilatory support Not in acute distress Vital signs noted Hospitalist Physical - Constitutional Vitals: Temp Pulse Resp BP Pulse Ox 99.1 F 127 H 18 147/77 99 02/25/20 08:00 02/25/20 10:00 02/25/20 10:00 02/25/20 10:02/25/20 10:00 General appearance: Present: no acute distress, well-nourished, obese, other (Intubated, on vent) - EENT Eyes: Present: PERRL, EOM intact - Neck Neck: Present: supple, normal ROM - Respiratory Respiratory effort: normal Respiratory: bilateral: diminished, rhonchi, negative: rales, wheezing - Cardiovascular Rhythm: regular Heart Sounds: Present: S1 & S2 - Extremities Extremities: no ischemia, No edema - Abdominal General gastrointestinal: soft, non-tender, non-distended, normal bowel sounds - Integumentary Integumentary: Present: clear, warm - Psychiatric Psychiatric: appropriate mood/affect, cooperative - Neurologic Neurologic: moves all extremities HEART Score - HEART Score Troponin: Troponin T < 0.010 ng/mL (0.00-0.029) 02/11/20 15:27 Results - Labs CBC & Chem 7: 02/25/20 05:25 02/25/20 05:25 Labs: Laboratory Last Values WBC 25.3 K/mm3 (4.5-11.0) H 02/25/20 05:25 RBC 2.59 M/mm3 (3.65-5.03) L 02/25/20 05:25 Hgb 8.1 gm/dl (10.1-14.3) L 02/25/20 05:25 Hct 23.9 % (30.3-42.9) L 02/25/20 05:25 MCV 93 fl (79-97) 02/25/20 05:25 MCH 31 pg (28-32) 02/25/20 05:25 MCHC 34 % (30-34) 02/25/20 05:25 RDW 15.0 % (13.2-15.2) 02/25/20 05:25 Plt Count 147 K/mm3 (140-440) 02/25/20 05:25 Add Manual Diff Complete 02/25/20 05:25 Total Counted 100 02/25/20 05:25 Seg Neutrophils % Risk Management Director 02/14/20 04:29 Seg Neuts % (Manual) 87.0 % (40.0-70.0) H 02/25/20 05:25 Band Neutrophils % 1.0 % 02/25/20 05:25 Lymphocytes % (Manual) 6.0 % (13.4-35.0) L 02/25/20 05:25 Reactive Lymphs % (Man) 0 % 02/25/20 05:25 Monocytes % (Manual) 6.0 % (0.0-7.3) 02/25/20 05:25 Eosinophils % (Manual) 0 % (0.0-4.3) 02/25/20 05:25 Basophils % (Manual) 0 % (0.0-1.8) 02/25/20 05:25 Metamyelocytes % 0 % 02/25/20 05:25 Myelocytes % 0 % 02/25/20 05:25 Promyelocytes % 0 % 02/25/20 05:25 Blast Cells % 0 % 02/25/20 05:25 Nucleated RBC % Not Reportable 02/25/20 05:25 Seg Neutrophils # Man 22.0 K/mm3 (1.8-7.7) H 02/25/20 05:25 Band Neutrophils # 0.3 K/mm3 02/25/20 05:25 Lymphocytes # (Manual) 1.5 K/mm3 (1.2-5.4) 02/25/20 05:25 Abs React Lymphs (Man) 0.0 K/mm3 02/25/20 05:25 Monocytes # (Manual) 1.5 K/mm3 (0.0-0.8) H 02/25/20 05:25 Eosinophils # (Manual) 0.0 K/mm3 (0.0-0.4) 02/25/20 05:25 Basophils # (Manual) 0.0 K/mm3 (0.0-0.1) 02/25/20 05:25 Metamyelocytes # 0.0 K/mm3 02/25/20 05:25 Myelocytes # 0.0 K/mm3 02/25/20 05:25 Promyelocytes # 0.0 K/mm3 02/25/20 05:25 Blast Cells # 0.0 K/mm3 02/25/20 05:25 WBC Morphology Not Reportable 02/25/20 05:25 Hypersegmented Neuts Not Reportable 02/25/20 05:25 Hyposegmented Neuts Not Reportable 02/25/20 05:25 Hypogranular Neuts Not Reportable 02/25/20 05:25 Smudge Cells Not Reportable 02/25/20 05:25 Toxic Granulation Not Reportable 02/25/20 05:25 Toxic Vacuolation Not Reportable 02/25/20 05:25 Dohle Bodies Not Reportable 02/25/20 05:25 Pelger-Huet Anomaly Not Reportable 02/25/20 05:25 Jyoti Rods Not Reportable 02/25/20 05:25 Platelet Estimate Consistent w auto 02/25/20 05:25 Clumped Platelets Not Reportable 02/25/20 05:25 Plt Clumps, EDTA Not Reportable 02/25/20 05:25 Large Platelets Not Reportable 02/25/20 05:25 Giant Platelets Not Reportable 02/25/20 05:25 Platelet Satelliting Not Reportable 02/25/20 05:25 Plt Morphology Comment Not Reportable 02/25/20 05:25 RBC Morphology Not Reportable 02/25/20 05:25 Dimorphic RBCs Not Reportable 02/25/20 05:25 Polychromasia Few 02/25/20 05:25 Hypochromasia Not Reportable 02/25/20 05:25 Poikilocytosis Not Reportable 02/25/20 05:25 Anisocytosis 1+ 02/25/20 05:25 Microcytosis Not Reportable 02/25/20 05:25 Macrocytosis Not Reportable 02/25/20 05:25 Spherocytes Not Reportable 02/25/20 05:25 Pappenheimer Bodies Not Reportable 02/25/20 05:25 Sickle Cells Not Reportable 02/25/20 05:25 Target Cells Not Reportable 02/25/20 05:25 Tear Drop Cells Not Reportable 02/25/20 05:25 Ovalocytes Not Reportable 02/25/20 05:25 Helmet Cells Not Reportable 02/25/20 05:25 [place] Bodies Not Reportable 02/25/20 05:25 [place] Rings Not Reportable 02/25/20 05:25 [place] Cells Not Reportable 02/25/20 05:25 Bite Cells Not Reportable 02/25/20 05:25 Crenated Cell Not Reportable 02/25/20 05:25 Elliptocytes Not Reportable 02/25/20 05:25 Acanthocytes (Spur) Not Reportable 02/25/20 05:25 Rouleaux Not Reportable 02/25/20 05:25 Hemoglobin C Crystals Not Reportable 02/25/20 05:25 Schistocytes Not Reportable 02/25/20 05:25 Malaria parasites Not Reportable 02/25/20 05:25 Babar Bodies Not Reportable 02/25/20 05:25 Hem Pathologist Commnt No 02/25/20 05:25 PT 16.9 Sec. (12.2-14.9) H 02/13/20 20:10 INR 1.41 (0.87-1.13) H 02/13/20 20:10 APTT 35.3 Sec. (24.2-36.6) 02/13/20 20:10 Heparin Anti-Xa Level 0.15 U.I./ml (0.3-0.7) L 02/23/20 02:55 ABG pH 7.318 pH Units (7.350-7.450) L 02/21/20 04:16 ABG pCO2 42.7 mm Hg 02/21/20 04:16 ABG pO2 100.0 mm Hg (80.0-90.0) H 02/21/20 04:16 ABG HCO3 21.4 mmol/L (20.0-26.0) 02/21/20 04:16 ABG O2 Saturation 97.2 % (95.0-99.0) 02/21/20 04:16 ABG O2 Content 12.3 (0.0-44) 02/21/20 04:16 ABG Base Excess -4.4 mmol/L (-2.0-3.0) L 02/21/20 04:16 ABG Hemoglobin 9.1 gm/dl (12.0-16.0) L 02/21/20 04:16 ABG Carboxyhemoglobin 1.5 % (0.0-5.0) 02/21/20 04:16 ABG Methemoglobin 0.7 % (0.0-1.5) 02/21/20 04:16 Oxyhemoglobin 95.2 % (95.0-99.0) 02/21/20 04:16 FiO2 30 % 02/21/20 04:16 Sodium 132 mmol/L (137-145) L 02/25/20 05:25 Potassium 4.5 mmol/L (3.6-5.0) 02/25/20 05:25 Chloride 94.9 mmol/L (98-107) L 02/25/20 05:25 Carbon Dioxide 22 mmol/L (22-30) 02/25/20 05:25 Anion Gap 20 mmol/L 02/25/20 05:25 BUN 100 mg/dL (7-17) H 02/25/20 05:25 Creatinine 4.9 mg/dL (0.7-1.2) H 02/25/20 05:25 Estimated GFR 9 ml/min 02/25/20 05:25 BUN/Creatinine Ratio 20 % 02/25/20 05:25 Glucose 174 mg/dL (65-100) H 02/25/20 05:25 POC Glucose 173 (70-105) H 02/25/20 05:40 Ketones Quantitative Negative (Negative) 02/13/20 14:51 Lactic Acid 0.70 mmol/L (0.7-2.0) 02/14/20 Unknown Calcium 8.9 mg/dL (8.4-10.2) 02/25/20 05:25 Phosphorus 4.90 mg/dL (2.5-4.5) H 02/24/20 05:40 Magnesium 2.20 mg/dL (1.7-2.3) 02/25/20 05:25 Total Bilirubin 0.30 mg/dL (0.1-1.2) 02/25/20 05:25 Direct Bilirubin < 0.2 mg/dL (0-0.2) 02/25/20 05:25 Indirect Bilirubin 0.1 mg/dL 02/25/20 05:25 AST 20 units/L (5-40) 02/25/20 05:25 ALT 17 units/L (7-56) 02/25/20 05:25 Alkaline Phosphatase 76 units/L (35-129) 02/25/20 05:25 Troponin T < 0.010 ng/mL (0.00-0.029) 02/11/20 15:27 Total Protein 5.0 g/dL (6.3-8.2) L 02/25/20 05:25 Albumin 2.3 g/dL (3.9-5) L 02/25/20 05:25 Albumin/Globulin Ratio 0.9 % 02/25/20 05:25 Triglycerides 238 mg/dL (2-149) H 02/17/20 03:45 Lipase 60 units/L (13-60) 02/13/20 14:51 Urine Color Yellow (Yellow) 02/19/20 14:00 Urine Turbidity Cloudy (Clear) 02/19/20 14:00 Urine pH 5.0 (5.0-7.0) 02/19/20 14:00 Ur Specific [place] 1.007 (1.003-1.030) 02/19/20 14:00 Urine Protein 100 mg/dl mg/dL (Negative) 02/19/20 14:00 Urine Glucose (UA) >=500 mg/dL (Negative) 02/19/20 14:00 Urine Ketones Tr mg/dL (Negative) 02/19/20 14:00 Urine Blood Lg (Negative) 02/19/20 14:00 Urine Nitrite Neg (Negative) 02/19/20 14:00 Urine Bilirubin Neg (Negative) 02/19/20 14:00 Urine Urobilinogen < 2.0 mg/dL (<2.0) 02/19/20 14:00 Ur Leukocyte Esterase Lg (Negative) 02/19/20 14:00 Urine WBC (Auto) 166.0 /HPF (0.0-6.0) H 02/19/20 14:00 Urine RBC (Auto) 20.0 /HPF (0.0-6.0) 02/19/20 14:00 U Epithel Cells (Auto) 2.0 /HPF (0-13.0) 02/19/20 14:00 Urine Bacteria (Auto) 1+ /HPF (Negative) 02/19/20 14:00 Urine WBC Clumps 3+ /HPF 02/19/20 14:00 Urine Mucus Few /HPF 02/19/20 14:00 Urine Yeast (Budding) 3+ /HPF 02/19/20 14:00 Urine Eosinophils None seen (None Seen) 02/12/20 Unknown Urine Creatinine 35.3 mg/dL (0.1-20.0) H 02/12/20 Unknown Protein/Creatinin Ratio 22.55 02/12/20 Unknown Urine Total Protein 796 mg/dL (5-11.8) H 02/12/20 Unknown C. difficile Tox (PCR) Positive (Negative) 02/19/20 12:46 Hepatitis A IgM Ab Non-reactive (NonReactive) 02/21/20 10:30 Hep Bs Antigen Non-reactive (Negative) 02/21/20 10:30 Hep B Core IgM Ab Non-reactive (NonReactive) 02/21/20 10:30 Hepatitis C Antibody Non-reactive (NonReactive) 02/21/20 10:30 Blood Type O NEGATIVE 02/21/20 06:00 Antibody Screen Negative 02/21/20 06:00 Crossmatch See Detail 02/21/20 06:00 Microbiology: Microbiology 02/24/20 14:51 Peripheral/Venous Blood Culture - Preliminary Culture in Progress 02/24/20 14:51 Peripheral/Venous Blood Culture - Preliminary Culture in Progress 02/19/20 15:30 Peripheral/Venous Blood Culture - Final NO GROWTH AFTER 5 DAYS 02/19/20 15:00 Peripheral/Venous Blood Culture - Final NO GROWTH AFTER 5 DAYS - Diagnostic Impressions Diagnostic Impressions: Echocardiogram 02/13/20 18:02 Transthoracic Echocardiogram Indication: Afib BP: 101/70 HR: 128 Findings Left Ventricle: The left ventricular chamber size is normal. Mild to moderate concentric left ventricular hypertrophy is observed. Global left ventricular wall motion and contractility are within normal limits. Global left ventricular systolic function is normal. The estimated ejection fraction is 60-65%. Left Atrium: The left atrium is mild to moderately dilated. Right Ventricle: The right ventricular cavity size is normal. The right ventricular global systolic function is normal. Right Atrium: The right atrium appears normal. The interatrial septum appears normal. Aortic Valve: The aortic valve structure is normal. The aortic valve leaflets are mildly thickened. There is no evidence of aortic regurgitation. There is no evidence of aortic stenosis. Mitral Valve: The mitral valve leaflets appear normal. There is no evidence of mitral regurgitation. There is no evidence of mitral stenosis. Tricuspid Valve: The tricuspid valve leaflets are normal. There is mild to moderate tricuspid regurgitation. The right ventricular systolic pressure is calculated at 39 mmHg. There is evidence of pulmonary hypertension. There is no tricuspid stenosis. Pulmonic Valve: The pulmonic valve appears normal. There is no evidence of pulmonic regurgitation. There is no pulmonic stenosis. Pericardium: A pericardial effusion is visualized. There is a minimial pericardial effusion. A left pleural effusion is present. There is a moderate pleural effusion. Aorta: There is no dilatation of the ascending aorta. There is no dilatation of the aortic arch. There is no dilatation of the descending thoracic aorta. There is no dilatation of the aortic root. Venous: The inferior vena cava appears normal in size. Measurements Chambers 2D Name Value Normal Range IVSd (2D) 1.34 cm (0.6 - 1.1) LVPWd (2D) 1.35 cm (0.6 - 1.1) LVIDd (2D) 4.72 cm (3.7 - 5.6) LVIDs (2D) 3.28 cm (2 - 3.8) LV FS (2D) 30.38 % - EF Teichholz (2D) 57.75 % - Ao root diameter (2D) 3.02 cm (2 - 3.7) Volumes/Mass Name Value Normal Range LA ESV SP 4CH (A/L) 55.87 ml - LA ESV SP 2CH (A/L) 67.65 ml - LA ESV BP (A/L) 63.67 ml - LA ESV SP 4CH (MOD) 54.25 ml - LA ESV SP 2CH (MOD) 63.2 ml - LA ESV BP (MOD) 60.49 ml - LA ESV BP (MOD) index 34.18 ml/m2 - LV EDV SP 4CH (MOD) 70.96 ml - LV ESV SP 4CH (MOD) 23.49 ml - EF SP 4CH (MOD) 66.89 % - LV EDV SP 2CH (MOD) 61.41 ml - LV ESV SP 2CH (MOD) 27.43 ml - EF SP 2CH (MOD) 55.33 % - LV EDV BP 69.85 ml - LV ESV BP 26.44 ml - BP EF (MOD) 62.14 % - Aortic Valve Name Value Normal Range AV Vmax 1.29 m/sec - AV VTI 18.56 cm - AV peak gradient 6.69 mmHg - AV mean gradient 3.39 mmHg - LVOT diameter 1.95 cm - LVOT Vmax 1.14 m/sec - LVOT VTI 16.24 cm - LVOT peak gradient 5.21 mmHg - LVOT mean gradient 2.04 mmHg - SV LVOT 48.71 ml - TABATHA (continuity Vmax) 2.65 cm2 - TABATHA (continuity VTI) 2.62 cm2 - Ascending Ao 2.96 cm - Tricuspid Valve Name Value Normal Range TR Vmax 2.47 m/sec - TR peak gradient 24 mmHg - RAP 15 mmHg - RVSP 39 mmHg - Pulmonic Valve/Qp:Qs Name Value Normal Range PV Vmax 1.15 m/sec - PV peak gradient 5.33 mmHg - PV acceleration time 68.51 msec - Acevedo/IV: Voiding Method Indwelling Catheter IV Catheter Type [Right VAS Cath Internal Jugular] IV Catheter Type [Left Upper PICC Line arm] IV Catheter Type [Right INT / Saline Lock Antecubital] IV Catheter Type [Right Peripheral IV Forearm] IV Catheter Type [Left Forearm INT / Saline Lock ] IV Catheter Type [Right Hand] Peripheral IV Active Medications - Current Medications Current Medications: Generic Name Dose Route Start Last Admin Trade Name Freq PRN Reason Stop Dose Admin Acetaminophen 650 mg 02/11/20 19:01 02/24/20 23:26 Tylenol PO 650 mg Q4H PRN Administration Pain MILD(1-3)/Fever >100.5/ADAMS Amiodarone HCl 200 mg 02/24/20 10:00 07/01/20 09:21 Cordarone PO 200 mg QDAY NADER Administration Lipase/Protease/Amylase 1 each 02/20/20 10:[address] 10,500 Unit FEEDTUBE PRN PRN For Clogged Feeding Tube Dextrose 50 ml 02/19/20 14:58 D50w (25gm) Syringe IV Q30MIN PRN Hypoglycemia Protocol Diltiazem HCl 30 mg 02/23/20 12:00 02/25/20 05:29 Cardizem PO 30 mg Q6HR NADER Administration Famotidine 20 mg 02/24/20 10:00 02/25/20 09:21 Pepcid PO 20 mg DAILY NADER Administration Fentanyl 50 mcg 02/19/20 15:30 02/19/20 15:29 Sublimaze IV 50 mcg Q10MIN PRN Administration ANALGESIA Fentanyl 50 mcg 02/24/20 09:52 02/25/20 02:06 Sublimaze IV 50 mcg Q2HR PRN Administration Pain, Moderate (4-6) Hydromorphone HCl 1 mg 02/24/20 09:54 02/25/20 08:30 Dilaudid IV 1 mg Q3H PRN Administration Pain , Severe (7-10) Hydrophilic Ointment 1 applic 02/13/20 19:41 Vaseline Lip Therapy TP Q2HR PRN Dry Lips Fentanyl Citrate 2,000 mcg in 100 mls @ 4.05 mls/hr 02/19/20 16:00 02/24/20 18:59 Fentanyl Drip Premix IV 0 mcg/kg/hr TITR NADER 0 mls/hr Titration Protocol 1 MCG/KG/HR Sodium Chloride 100 mls @ 999 mls/hr 02/22/20 12:30 Nacl 0.9% IV FABIOLA PRN Hypotension Amino Acids/Electrolytes/Dextrose 1,200 mls @ 50 mls/hr 02/24/20 20:00 02/24/20 20:37 Tpn Adult IV 02/25/20 19:59 50 mls/hr DAILY@2000 [facility] Administration Protocol Insulin Glargine 40 units 02/24/20 22:00 02/25/20 09:22 Lantus SUB-Q 40 units BID NADER Administration Insulin Human Lispro 0 unit 02/19/20 18:00 02/25/20 05:55 Humalog SUB-Q 3 unit Q6HR NADER Administration Protocol Labetalol HCl 20 mg 02/13/20 18:00 02/24/20 18:07 Labetalol IV 20 mg Q4H PRN Administration SBP >150 Metoprolol Tartrate 2.5 mg 02/13/20 18:00 02/25/20 09:20 Metoprolol IV 2.5 mg Q6HR PRN Administration HR >130 Multi-Ingred Cream/Lotion/Oil/Oint 1 applic 02/13/20 19:41 Artificial Tears Ophth Oint OU Q4HR PRN Dry Eye(s) Sertraline HCl 50 mg 02/23/20 10:00 02/25/20 09:21 Zoloft PO 50 mg QDAY NADER Administration Simple Syrup 15 ml 02/20/20 10:28 Simple Syrup FEEDTUBE PRN PRN Hypoglycemia Simple Syrup 30 ml 02/20/20 10:28 Simple Syrup FEEDTUBE PRN PRN Hypoglycemia Sodium Bicarbonate 325 mg 02/20/20 10:28 Sodium Bicarbonate FEEDTUBE PRN PRN For Clogged Feeding Tube Sodium Chloride 10 ml 02/11/20 22:00 02/25/20 09:20 Sodium Chloride Flush Syringe 10 Ml IV 10 ml BID NADER Administration Sodium Chloride 10 ml 02/11/20 19:01 02/15/20 22:43 Sodium Chloride Flush Syringe 10 Ml IV 10 ml PRN PRN Administration LINE FLUSH Vancomycin HCl 125 mg 02/20/20 15:00 02/25/20 05:29 Vancomycin Po PO 02/27/20 06:01 125 mg Q6HR NADER Administration Nutrition/Malnutrition Assess - Dietary Evaluation Nutrition/Malnutrition Findings: Nutrition Notes Start: 02/14/20 09:49 Freq: Status: Active Protocol: Document 02/25/20 09:25 LP (Rec: 02/25/20 09:29 LP [id number]) Nutrition Notes Initial or Follow up Reassessment Current Diagnosis Acute Kidney Injury,Decubitus( Pressure Ulcer),Diabetes, Hypertension,Hyperlipidemia Other Pertinent Diagnosis ischemic bowel with gangrene s /p exp lap, Current Diet CPN at 50ml/hr + Vital 1.2 at 50ml/hr Labs/Tests Na 132 BUN 100 Cr 4.9 BG 174 Pertinent Medications Reviewed Height 5 ft 5 in Weight 94 kg [place] Body Weight (kg) 56.81 BMI 34.4 Weight Status Obese Subjective/Other Information Pt tolerating Vital 1.2 at goal rate of 50ml/hr. TPN will be D/C once bag is empty. Percent of energy/protein needs met: 100%/100% Burn Absent Trauma Absent Current % PO Negligible Minimum of two criteria No #2 Nutrition Diagnosis Inadequate oral intake Diagnosis Progress(for reassessment Continues documentation) #1 Nutrition Diagnosis Altered GI function As Evidenced by Signs and Symptoms Pt tolerating TF at 50ml/hr ( goal rate) Diagnosis Progress(for reassessment Resolved documentation) Is patient on ventilator? Yes Is Patient Ambulatory and/or Out of Bed No REE-([place]-confined to bed) 1729.128 Kcal/Kg value to use for calculation 15 Approximate Energy Requirements Using 1410 kcal/Kg Calculation Used for Recommendations Kcal/kg Additional Notes Pro needs 1.2-2g/k-140g/ day Fluid needs 1ml/kcal Nutrition Intervention Change Diet Order: TF Nutrition Support: D/C TPN. Vital 1.2 at 50ml/hr (goal rate) Flush with 100ml q4h Kcal 1,440 Protein (gm) 90 Fluid (mL) 966 Goal #1 Meet at least 75% of energy and protein needs Anticipated Discharge Needs: Unable to identify at this time Follow-Up By: 02/27/20 Additional Comments Follow for stable TF
--- NOTE | 2020-02-25 10:58 | Progress Note ---
Assessment and Plan Cultures: Blood culture 02/11/2020 no growth today Sputum culture 02/12/19 no growth today Sputum culture 02/13/19 usual resp sulaiman Blood culture 02/19/2020 no growth Cdiff toxin PCR Positive urine culture 02/19/2020 10-100K mult A/P: 74-year-old female past medical history hypertension, diabetes, mitral valve prolapse, hyperlipidemia admitted with acute sepsis and abdominal pain #Acute sepsis: likely due to ischemic bowel. Leukocytosis again up and low grade fever ?DVT ?severe anemia, baseline leukocytosis from UTI rather than C diff. 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 S/p exploratory laparotomy, enterocolonic anastamosis, closure of abdomen, application of wound vac on 02/15. on TPN #Respiratory failure: on BIPAP #Presumed infected renal cyst #Diabetes: Tight glycemic control for best outcomes #Diarrhea: resolved prior to presentation, doubt C diff, likely from ischemic bowel. #LITZY on CKD: Renally adjust antibiotics, worsening #Anemia/thrombocytopenia: from sepsis, severe anemia now, anticoagulation on hold. #Diarrhea? Cdiff toxin PCR Positive, can be colinization rather than patogenic Cdiff, should have a Cdiff EIA not available unfortunately. #UTI: corcoran replaced for I+O. #DVT on heparin gtt #RVR Afib on cardizem and amiodarone Recs: -consider repeating CTchest/abdomen if fever/leukocytosis not better -f/u repeat blood cx -continue vancomycin 125 mg QID day 6 of 7 -s/p cefepime and flagyl day 8 x 8 days D/w Dr Bennett guarded prognosis Will follow. Jo-Ann Mccray MD Infectious Diseases [employer] [facility] ([facility] M [phone] O [phone] Subjective Date of service: 02/25/20 Principal diagnosis: Ischemic Bowel Interval history: Remains intubated alert on BIPAP off cardizem gtt, amio gtt, heparin gtt, only on TPN noted low grade fever Objective - Exam Narrative Exam: Constitutional: alert intubated on SBT Head, Ears, Nose: Normocephalic, atraumatic. Eyes: Conjunctivae/corneas clear. No icterus. No ptosis. Neck: Supple, no meningeal signs Oral: +ETT Cardiovascular: tachycardic Respiratory: Good air entry, clear to auscultation bilaterally GI: Soft, midline wound with VAC. Musculoskeletal:yareli arm edema Skin: No rash or abscess Hem/Lymphatic: No palpable cervical or supraclavicular nodes. No lymphangitis Psych: no agitated Neurological: alert left PICC rectal tube with black stool corcoran - Constitutional Vitals: Vital Signs Temp Pulse Resp BP Pulse Ox 99.1 F 127 H 18 147/77 99 02/25/20 08:00 02/25/20 10:00 02/25/20 10:00 02/25/20 10:00 02/25/20 10:00 Temperature -Last 24 Hours Temperature 99.1 F Temperature 99.9 F Temperature 100.2 F Temperature 100.1 F Temperature 99.7 F Temperature 99.1 F - Labs CBC & Chem 7: 02/25/20 05:25 02/25/20 05:25 Labs: Abnormal lab results 02/24/20 02/24/20 02/24/20 Range/Units 05:40 12:11 17:58 WBC (4.5-11.0) K/mm3 RBC (3.65-5.03) M/mm3 Hgb (10.1-14.3) gm/dl Hct (30.3-42.9) % Seg Neuts % (Manual) 87.0 H (40.0-70.0) % Lymphocytes % (Manual) 5.0 L (13.4-35.0) % Nucleated RBC % 1.0 H (0.0-0.9) % Seg Neutrophils # Man 18.3 H (1.8-7.7) K/mm3 Lymphocytes # (Manual) 1.1 L (1.2-5.4) K/mm3 Monocytes # (Manual) 1.1 H (0.0-0.8) K/mm3 Sodium (137-145) mmol/L Chloride (98-107) mmol/L BUN (7-17) mg/dL Creatinine (0.7-1.2) mg/dL Glucose (65-100) mg/dL POC Glucose 217 H 236 H (70-105) Total Protein (6.3-8.2) g/dL Albumin (3.9-5) g/dL 02/24/20 02/25/20 02/25/20 Range/Units 23:23 05:25 05:25 WBC 25.3 H (4.5-11.0) K/mm3 RBC 2.59 L (3.65-5.03) M/mm3 Hgb 8.1 L (10.1-14.3) gm/dl Hct 23.9 L (30.3-42.9) % Seg Neuts % (Manual) 87.0 H (40.0-70.0) % Lymphocytes % (Manual) 6.0 L (13.4-35.0) % Nucleated RBC % (0.0-0.9) % Seg Neutrophils # Man 22.0 H (1.8-7.7) K/mm3 Lymphocytes # (Manual) (1.2-5.4) K/mm3 Monocytes # (Manual) 1.5 H (0.0-0.8) K/mm3 Sodium 132 L (137-145) mmol/L Chloride 94.9 L (98-107) mmol/L BUN 100 H (7-17) mg/dL Creatinine 4.9 H (0.7-1.2) mg/dL Glucose 174 H (65-100) mg/dL POC Glucose 223 H (70-105) Total Protein 5.0 L (6.3-8.2) g/dL Albumin 2.3 L (3.9-5) g/dL 02/25/20 Range/Units 05:40 WBC (4.5-11.0) K/mm3 RBC (3.65-5.03) M/mm3 Hgb (10.1-14.3) gm/dl Hct (30.3-42.9) % Seg Neuts % (Manual) (40.0-70.0) % Lymphocytes % (Manual) (13.4-35.0) % Nucleated RBC % (0.0-0.9) % Seg Neutrophils # Man (1.8-7.7) K/mm3 Lymphocytes # (Manual) (1.2-5.4) K/mm3 Monocytes # (Manual) (0.0-0.8) K/mm3 Sodium (137-145) mmol/L Chloride (98-107) mmol/L BUN (7-17) mg/dL Creatinine (0.7-1.2) mg/dL Glucose (65-100) mg/dL POC Glucose 173 H (70-105) Total Protein (6.3-8.2) g/dL Albumin (3.9-5) g/dL
--- NOTE | 2020-02-25 10:58 | Progress Note ---
<JULIANN COX - Last Filed: 02/25/20 10:52> Assessment and Plan Atrial fibrillation, paroxysmal on Cardizem and amiodarone. echocardiogram showed normal left ventricular systolic function with ejection fraction 60 to 65%. 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 Subjective Date of service: 02/25/20 Principal diagnosis: Ischemic Bowel Interval history: Patient remains intubated. Sinus tachycardia on telemetry. Objective Vital Signs Temp Pulse Resp BP Pulse Ox 02/25/20 10:00 127 H 18 147/77 99 02/25/20 09:30 128 H 22 149/75 98 02/25/20 09:20 131 H 156/75 02/25/20 09:00 130 H 23 168/78 98 02/25/20 08:50 130 H 168/78 98 02/25/20 08:30 129 H 20 174/84 98 02/25/20 08:00 99.1 F 127 H 22 156/75 99 02/25/20 07:30 105 H 19 106/58 99 02/25/20 07:19 111 H 02/25/20 07:00 98 H 16 107/56 98 02/25/20 06:30 97 H 17 107/57 99 02/25/20 06:00 130 H 18 122/64 98 02/25/20 05:49 133 H 158/76 02/25/20 05:30 131 H 21 182/77 98 02/25/20 05:29 132 H 178/79 02/25/20 05:00 131 H 25 H 180/87 98 02/25/20 04:35 130 H 145/82 97 02/25/20 04:30 130 H 23 145/82 98 02/25/20 04:00 99.9 F H 131 H 22 172/74 98 02/25/20 03:30 129 H 24 164/80 98 02/25/20 03:00 129 H 27 H 168/90 97 02/25/20 02:30 127 H 21 179/77 98 02/25/20 02:00 127 H 24 191/86 99 02/25/20 01:30 127 H 19 175/79 98 02/25/20 01:00 126 H 21 151/70 98 02/25/20 00:40 105 H 136/65 98 02/25/20 00:30 126 H 19 136/65 98 02/25/20 00:26 20 02/25/20 00:00 100.2 F H 126 H 19 139/68 98 02/24/20 23:30 128 H 19 164/75 98 02/24/20 23:27 128 H 155/73 02/24/20 23:26 20 02/24/20 23:00 126 H 19 167/74 99 02/24/20 22:30 124 H 21 169/79 98 02/24/20 22:00 128 H 18 129/63 98 02/24/20 21:48 126 H 02/24/20 21:38 125 H 23 181/84 97 02/24/20 21:30 124 H 22 181/84 96 02/24/20 21:25 124 H 18 172/79 97 02/24/20 21:19 20 02/24/20 21:10 125 H 181/84 97 02/24/20 21:00 125 H 22 161/72 98 02/24/20 20:30 124 H 16 177/79 98 02/24/20 20:00 100.1 F H 122 H 16 173/76 98 02/24/20 19:30 120 H 14 121/76 98 02/24/20 19:00 98 H 18 106/55 98 02/24/20 18:30 87 18 110/32 98 02/24/20 18:07 128 H 188/93 02/24/20 18:00 126 H 21 175/98 96 02/24/20 17:50 127 H 162/74 02/24/20 17:30 127 H 19 176/82 97 02/24/20 17:00 129 H 17 164/94 97 02/24/20 16:30 127 H 22 158/70 99 02/24/20 16:00 99.7 F H 128 H 21 148/71 99 02/24/20 15:50 129 H 149/74 99 02/24/20 15:30 128 H 19 149/74 99 02/24/20 15:00 127 H 19 145/67 98 02/24/20 14:30 128 H 21 142/70 99 02/24/20 14:00 129 H 16 127/67 99 02/24/20 13:30 128 H 16 130/68 99 02/24/20 13:00 126 H 19 150/78 99 02/24/20 12:30 125 H 14 155/76 99 02/24/20 12:00 99.1 F 125 H 15 144/72 99 02/24/20 11:56 124 H 155/77 02/24/20 11:30 124 H 20 158/86 99 02/24/20 11:16 123 H 17 162/81 99 02/24/20 11:00 123 H 13 162/76 100 - Physical Examination General: Other (intubated) Cardiac: Positive: Tachycardia Neuro: Positive: Other (DOESN'T FOLLOW COMM.) Abdomen: Positive: Other (post op) - Labs and Meds Cardiac Enzymes 02/25/20 Range/Units 05:25 AST 20 (5-40) units/L CBC 02/25/20 Range/Units 05:25 WBC 25.3 H (4.5-11.0) K/mm3 RBC 2.59 L (3.65-5.03) M/mm3 Hgb 8.1 L (10.1-14.3) gm/dl Hct 23.9 L (30.3-42.9) % Plt Count 147 (140-440) K/mm3 Comprehensive Metabolic Panel 02/25/20 Range/Units 05:25 Sodium 132 L (137-145) mmol/L Potassium 4.5 (3.6-5.0) mmol/L Chloride 94.9 L (98-107) mmol/L Carbon Dioxide 22 (22-30) mmol/L BUN 100 H (7-17) mg/dL Creatinine 4.9 H (0.7-1.2) mg/dL Glucose 174 H (65-100) mg/dL Calcium 8.9 (8.4-10.2) mg/dL Direct Bilirubin < 0.2 (0-0.2) mg/dL Indirect Bilirubin 0.1 mg/dL AST 20 (5-40) units/L ALT 17 (7-56) units/L Alkaline Phosphatase 76 (35-129) units/L Total Protein 5.0 L (6.3-8.2) g/dL Albumin 2.3 L (3.9-5) g/dL <KAREN DE LOS SANTOS - Last Filed: 02/26/20 06:31> Assessment and Plan - Patient Problems (1) Atrial fibrillation Current Visit: Yes Status: Acute (2) Acute renal failure Current Visit: Yes Status: Acute (3) Acute respiratory failure Current Visit: Yes Status: Acute (4) Anemia Current Visit: Yes Status: Acute (5) Ischemic necrosis of small bowel Current Visit: Yes Status: Acute Objective Vital Signs Temp Pulse Resp BP Pulse Ox Pulse Ox Pulse Ox 02/26/20 06:00 128 H 23 164/81 98 02/26/20 05:45 131 H 22 169/88 98 02/26/20 05:37 121 H 159/80 02/26/20 05:30 126 H 18 103/44 99 02/26/20 05:15 75 19 103/44 99 02/26/20 05:00 75 21 110/45 99 02/26/20 04:45 72 19 109/44 100 02/26/20 04:30 78 19 110/44 99 02/26/20 04:15 80 18 106/43 100 02/26/20 04:00 99.7 F H 77 19 102/38 100 02/26/20 03:45 81 19 104/40 99 02/26/20 03:30 71 19 93/41 99 02/26/20 03:15 85 18 101/41 99 02/26/20 03:00 89 18 171/94 99 02/26/20 02:47 134 H 171/94 02/26/20 02:45 134 H 25 H 171/94 99 02/26/20 02:30 133 H 26 H 180/85 98 02/26/20 02:24 133 H 177/88 99 02/26/20 02:15 133 H 25 H 177/88 99 02/26/20 02:00 133 H 19 177/86 99 02/26/20 01:45 132 H 25 H 169/87 99 02/26/20 01:30 133 H 25 H 156/85 99 02/26/20 01:15 134 H 22 165/80 99 02/26/20 01:00 133 H 23 157/82 99 02/26/20 00:45 133 H 22 156/81 99 02/26/20 00:43 72 02/26/20 00:30 134 H 27 H 165/82 99 02/26/20 00:21 134 H 187/88 02/26/20 00:20 135 H 187/88 02/26/20 00:15 135 H 30 H 187/88 99 02/26/20 00:00 100.6 F H 133 H 29 H 157/82 99 02/25/20 23:45 134 H 27 H 185/93 98 02/25/20 23:30 134 H 24 191/97 98 02/25/20 23:15 133 H 25 H 195/102 98 02/25/20 23:00 134 H 26 H 175/93 99 02/25/20 22:45 133 H 30 H 180/96 98 02/25/20 22:30 133 H 27 H 187/91 98 02/25/20 22:15 132 H 28 H 182/95 98 02/25/20 22:00 131 H 23 179/99 98 02/25/20 21:45 130 H 26 H 179/80 97 02/25/20 21:30 127 H 23 176/86 98 02/25/20 21:16 104 H 22 153/76 99 02/25/20 21:00 88 21 124/42 99 02/25/20 20:46 87 20 124/42 99 02/25/20 20:42 86 20 128/64 99 02/25/20 20:30 86 22 110/41 100 02/25/20 20:16 73 21 110/41 100 02/25/20 20:00 99.1 F 88 21 124/42 99 02/25/20 19:45 68 19 106/41 99 02/25/20 19:30 66 18 106/42 99 02/25/20 19:15 71 21 98/40 99 02/25/20 19:06 99.3 F 132 H 26 H 165/91 99 99 02/25/20 19:00 87 20 95/44 99 02/25/20 18:27 132 H 165/91 02/25/20 18:00 136 H 26 H 161/85 99 02/25/20 17:45 131 H 153/75 02/25/20 17:30 109 H 27 H 156/85 99 02/25/20 17:15 122 H 160/87 02/25/20 17:00 108 H 26 H 151/62 99 02/25/20 16:45 108 H 151/62 02/25/20 16:30 100 H 21 135/61 99 02/25/20 16:15 111 H 142/56 02/25/20 16:00 99.3 F 98 H 25 H 156/80 99 02/25/20 15:47 134 H 156/80 02/25/20 15:45 133 H 156/80 02/25/20 15:40 127 H 142/82 96 02/25/20 15:30 132 H 24 147/82 98 02/25/20 15:22 28 H 02/25/20 15:16 131 H 153/75 02/25/20 15:15 131 H 153/75 02/25/20 15:00 127 H 15 167/80 98 99 99 02/25/20 14:30 126 H 28 H 172/85 98 02/25/20 14:00 123 H 26 H 169/92 97 02/25/20 13:30 93 H 17 199/103 95 02/25/20 13:00 92 H 20 107/47 99 02/25/20 12:30 69 18 103/46 99 02/25/20 12:15 126 H 103/46 95 02/25/20 12:00 82 17 118/67 99 02/25/20 11:47 88 02/25/20 11:33 98.4 F 02/25/20 11:30 88 16 123/66 98 02/25/20 11:28 94 H 131/70 02/25/20 11:27 125 H 199/111 02/25/20 11:00 126 H 23 157/86 98 02/25/20 10:30 126 H 22 157/86 98 02/25/20 10:00 127 H 18 147/77 99 02/25/20 09:30 128 H 22 149/75 98 02/25/20 09:20 131 H 156/75 02/25/20 09:00 130 H 23 168/78 98 02/25/20 08:50 130 H 168/78 98 02/25/20 08:30 129 H 20 174/84 98 02/25/20 08:00 99.1 F 127 H 22 156/75 99 02/25/20 07:30 105 H 19 106/58 99 02/25/20 07:19 111 H 02/25/20 07:00 98 H 16 107/56 98 - Labs and Meds CBC 02/26/20 Range/Units 05:00 WBC 16.2 H (4.5-11.0) K/mm3 RBC 2.36 L (3.65-5.03) M/mm3 Hgb 7.4 L (10.1-14.3) gm/dl Hct 22.0 L (30.3-42.9) % Plt Count 141 (140-440) K/mm3 Lymph # 1.3 (1.2-5.4) K/mm3 Woodson # 1.4 H (0.0-0.8) K/mm3 Eos # 0.0 (0.0-0.4) K/mm3 Baso # 0.1 (0.0-0.1) K/mm3
--- NOTE | 2020-02-25 13:06 | Progress Note ---
Assessment and Plan - Patient Problems (1) Ischemic necrosis of small bowel Current Visit: Yes Status: Acute Plan to address problem: Assessment and Plan 74-year-old female status post 1. Exploratory laparotomy, enterocolonic anastamosis, closure of abdomen, application of wound vac, POD 9 2. Exploratory laparotomy, extensive small bowel resection, partial colon resection, placement of abthera vac, placement of right radial arterial line, 02/13/20 1. bowel ischemia with gangrene 2. sepsis 3. LITZY 4. Afib with RVR 5. Tobacco dependence 6. Venous duplex - L superficial femoral vein nonocclusive thrombus 7. Cdiff + 8. Protein calorie malnutrition CXR 02/20/20 - no residual disease CT C/A/P 02/19/20 - post operative changes of right colon. Anastamosis is intact. Generalized edema of abdominal wall. Pt currently hemodynamically stable. Tolerating TF at goal, having bowel function. Abdominal exam is benign. Plan: 1. neuro - Continue as needed pain control - fent gtt off, fent prn ordered for pain. Pt still with AMS. 2. CV - cardiology on board for Afib. H/H stable. Anticoagulation remains on hold - May be restarted per cards/vascular surgery 3. Resp - vent management per ICU team, extubate when criteria met. D/W Dr. Cervantes - although patient off sedation now and doing well on CPAP trial, mental status precludes safe extubation. If patient unable to wean by end of the week, may need to consider trach. 4. GI - Cont TF via NGT, continue to adv to goal as tolerated. Hold if residual >250cc. Pt continues to have bowel function - diarrhea expected, Continue incisional wound VAC - monitor output. GI ppx - protonix IV 5. - strict I/Os. Nephrology on board, HD started. Monitor information security manager. 6. ID - continue abx per ID. leukocytosis trended up slightly. No change in abdominal status. Source possibly UTI or DVT related. UCx/BCx - neg. Possible repeat imaging if WBC continues to trend up or recurrent fever. 7. Endo - strict glucose control 8. Musc - turning q2 as per protocol, skin breakdown precautions, SCDs 9. FEN - Cont TF@goal, Continue TPN for now - will consider discontinuing tomorrow. Replace lytes as needed. LTACH planning in progress. Discussed with Dr. Acosta Forestry Professor notes reviewed and recs appreciated. Thank you, please call with questions. Subjective Date of service: 02/25/20 Narrative: Pt seen and examined. She is tolerating CPAP trials on vent. Tm 100.2. Tolerat ing TF at 50cc/hr Objective Vital Signs - 12hr 02/25/20 02/25/20 02/25/20 01:30 02:00 02:30 Temperature Pulse Rate 127 H 127 H 127 H Respiratory 19 24 21 Rate Blood Pressure 175/79 191/86 179/77 O2 Sat by Pulse 98 99 98 Oximetry 02/25/20 02/25/20 02/25/20 03:00 03:30 04:00 Temperature 99.9 F H Pulse Rate 129 H 129 H 131 H Respiratory 27 H 24 22 Rate Blood Pressure 168/90 164/80 172/74 O2 Sat by Pulse 97 98 98 Oximetry 02/25/20 02/25/20 02/25/20 04:30 04:35 05:00 Temperature Pulse Rate 130 H 130 H 131 H Respiratory 23 25 H Rate Blood Pressure 145/82 145/82 180/87 O2 Sat by Pulse 98 97 98 Oximetry 02/25/20 02/25/20 02/25/20 05:29 05:30 05:49 Temperature Pulse Rate 132 H 131 H 133 H Respiratory 21 Rate Blood Pressure 178/79 182/77 158/76 O2 Sat by Pulse 98 Oximetry 02/25/20 02/25/20 02/25/20 06:00 06:30 07:00 Temperature Pulse Rate 130 H 97 H 98 H Respiratory 18 17 16 Rate Blood Pressure 122/64 107/57 107/56 O2 Sat by Pulse 98 99 98 Oximetry 02/25/20 02/25/20 02/25/20 07:19 07:30 08:00 Temperature 99.1 F Pulse Rate 111 H 105 H 127 H Respiratory 19 22 Rate Blood Pressure 106/58 156/75 O2 Sat by Pulse 99 99 Oximetry 02/25/20 02/25/20 02/25/20 08:30 08:50 09:00 Temperature Pulse Rate 129 H 130 H 130 H Respiratory 20 23 Rate Blood Pressure 174/84 168/78 168/78 O2 Sat by Pulse 98 98 98 Oximetry 02/25/20 02/25/20 02/25/20 09:20 09:30 10:00 Temperature Pulse Rate 131 H 128 H 127 H Respiratory 22 18 Rate Blood Pressure 156/75 149/75 147/77 O2 Sat by Pulse 98 99 Oximetry 02/25/20 02/25/20 02/25/20 10:30 11:00 11:27 Temperature Pulse Rate 126 H 126 H 125 H Respiratory 22 23 Rate Blood Pressure 157/86 157/86 199/111 O2 Sat by Pulse 98 98 Oximetry 02/25/20 02/25/20 02/25/20 11:28 11:30 11:33 Temperature 98.4 F Pulse Rate 94 H 88 Respiratory 16 Rate Blood Pressure 131/70 123/66 O2 Sat by Pulse 98 Oximetry 02/25/20 02/25/20 11:47 12:00 Temperature Pulse Rate 88 82 Respiratory 17 Rate Blood Pressure 118/67 O2 Sat by Pulse 99 Oximetry - General physical appearance Narrative Exam: Gen: Intubated, opens eyes spontaneously. Mildly agitated. Does not follow commands ENT: ETT and NGT in place. TF running. CV: S1, S2+. tachycardia Resp: on vent - CPAP mode. No audible wheezes Abd: soft, NT, ND. Wound vac in place - scant serosang drainage. Good seal, no leak. Ext: generalized edema ; Acevedo with clear yellow urine. Rectal tube with green stool. - Labs 02/25/20 05:25 02/25/20 05:25 Diabetes panel 02/25/20 Range/Units 05:25 Sodium 132 L (137-145) mmol/L Potassium 4.5 (3.6-5.0) mmol/L Chloride 94.9 L (98-107) mmol/L Carbon Dioxide 22 (22-30) mmol/L BUN 100 H (7-17) mg/dL Creatinine 4.9 H (0.7-1.2) mg/dL Glucose 174 H (65-100) mg/dL Calcium 8.9 (8.4-10.2) mg/dL AST 20 (5-40) units/L ALT 17 (7-56) units/L Alkaline Phosphatase 76 (35-129) units/L Total Protein 5.0 L (6.3-8.2) g/dL Albumin 2.3 L (3.9-5) g/dL Calcium panel 02/25/20 Range/Units 05:25 Calcium 8.9 (8.4-10.2) mg/dL Albumin 2.3 L (3.9-5) g/dL Pituitary panel 02/25/20 Range/Units 05:25 Sodium 132 L (137-145) mmol/L Potassium 4.5 (3.6-5.0) mmol/L Chloride 94.9 L (98-107) mmol/L Carbon Dioxide 22 (22-30) mmol/L BUN 100 H (7-17) mg/dL Creatinine 4.9 H (0.7-1.2) mg/dL Glucose 174 H (65-100) mg/dL Calcium 8.9 (8.4-10.2) mg/dL Adrenal panel 02/25/20 Range/Units 05:25 Sodium 132 L (137-145) mmol/L Potassium 4.5 (3.6-5.0) mmol/L Chloride 94.9 L (98-107) mmol/L Carbon Dioxide 22 (22-30) mmol/L BUN 100 H (7-17) mg/dL Creatinine 4.9 H (0.7-1.2) mg/dL Glucose 174 H (65-100) mg/dL Calcium 8.9 (8.4-10.2) mg/dL Total Bilirubin 0.30 (0.1-1.2) mg/dL AST 20 (5-40) units/L ALT 17 (7-56) units/L Alkaline Phosphatase 76 (35-129) units/L Total Protein 5.0 L (6.3-8.2) g/dL Albumin 2.3 L (3.9-5) g/dL
--- NOTE | 2020-02-25 13:47 | Progress Note ---
Assessment and Plan 74 y/o female with abdominal pain, hypotension, now hypertensive with tachycardia and pain, worrisome for SBO and inflammation in colon from diverticula with worsening renal function. 02/25/2020: Long discussion with Granddaughter and Daughter over the phone to discuss LTACH. Currently they are not in favor.of LTACH. I tried my best to explain to them that this would be the next step in recovery for their family member. They are going to discuss amongst themselves and then let us know. I answered the questions they had to the best of my abilities. I also explained to them the current mental state, my thoughts and how we are trying to improve her mental state. They seem to understand this. We will continue daily PSV trials as tolerated. HD per renal. Overall prognosis is guarded. 02/24/2020: Continue PSV as tolerated. I have asked nursing to leave sedation off for as long as possible. I have also added PRN pushes of fentanyl with hopes of not having to restart the continuous infusion. I do not believe she will be ready for extubation today, but would like to work her respiratory muscles. Mental status is not exactly where we wont it to be. Heparin remains off and will discontinue from the MAR at this time. HD yesterday so likely none today. Will touch base with surgery and discuss with them but given the degree of illness and likely underlying lung disease as patient as still smoking, may need to consider LTACH if not able to wean in a timely fashion. Overall prognosis remains guarded. 02/23/2020: HD today. Will hold on weaning sedation given HD happening and likely will be to weak for PSV. Remains on minimal vent support. Transfusion today, of 2 units of PRBC's. Heparin on hold will need to recheck levels today. Spoke with pharm who will help with insulin therapy to better level of sugars. Abx therapy per ID. Flagyl and Cefepime stopped yesterday. Guarded prognosis. Will continue to follow. 02/20/2020: Positive VTE but already on anticoagulation for Afib. HgB is 7. Not hypotensive. Does respond to lasix. Will discuss with renal but my personal preference would be to hold until less than 7 for transfusion. ID on board and placed on antifungal yesterday. Improvement in white count. Spoke with RT who will attempt PSV again today. If patient fails again today, will speak with renal about more volume removal. May need HD briefly. Surgery also starting trickle feeds today. Spoke with Pharm about increasing lantus given hyperglycemia. C. Diff PCR came back positive today. 02/19/2020: More awake today but failed PSV secondary to tachypnea. Makes sense given degree of acidosis. Await renal to eval today. Wonder if more lasix will be given or if she will need HD. Only on 30% with good sats, but compensating for metabolic acidosis which is why she failed PSV. Spoke with Granddaughter over the phone, renal please call as she would like an update on renal function and plans. Continue pain control with PRN therapy but no further continuous sedation. 02/18/2020: More awake but failing PSV trials. Spoke with renal and they did not request corcoran out either. Will replace and give lasix 80mg IV. Spoke with Granddaughter over the phone who is a nurse. Will attempt PSV later this afternoon. If passes, will likely extubate in the am. If not , will give an additional dose of lasix tonight. 02/17/2020: Start to wean sedation today with hopes of extubation. Pain control. IVF's per renal. Follow up any surgery recs. ID seen this am, reviewed their note and plan to treat for 7 days of abx, currently on day 2. 02/16/2020: Picc line placed yesterday. Going to OR today, plan around 1330. If able to close, could consider starting to wean as early as tomorrow but will touch base with surgery first. Patient HR in the 50's on drip so cards decreased. Discussed on rounds, but I asked nursing if any further issues to just stop the drip. Prognosis remains guarded. Trigylcerides not checked so will order stat. 02/15/2020: No new recs for today. Happy with current clinical state in regards to sedation, ventilation and oxygenation. Appreciate surgery and nephro help. follow up any new recs from them. Agree with picc line, will get tomorrow as I believe they (picc team) are not available on Sunday. Will check triglyceride level in the am. 1. Continue deep sedation and pain control. No plans on weaning or extubation until abdominal issues are done. 2. Continue corcoran 3. Follow up surgery recs. Greatly appreciate them and their help. Plan for return to OR on Sunday. 4. IV abx, ID following. 5. Cardiology has elected for dilt drip. Suggest titrating. Gave nurse parameters. 6. Follow up renal rec Guarded prognosis. CCT 31 minutes. Subjective Date of service: 02/25/20 Principal diagnosis: Ischemic Bowel Interval history: Opens eyes when name is called. had some low grade temps overnight. Hemodynamically remains stable. Only did pressure support for about a few hours this morning. Objective Vital Signs - 12hr 02/25/20 02/25/20 02/25/20 02:00 02:30 03:00 Temperature Pulse Rate 127 H 127 H 129 H Respiratory 24 21 27 H Rate Blood Pressure 191/86 179/77 168/90 O2 Sat by Pulse 99 98 97 Oximetry 02/25/20 02/25/20 02/25/20 03:30 04:00 04:30 Temperature 99.9 F H Pulse Rate 129 H 131 H 130 H Respiratory 24 22 23 Rate Blood Pressure 164/80 172/74 145/82 O2 Sat by Pulse 98 98 98 Oximetry 02/25/20 02/25/20 02/25/20 04:35 05:00 05:29 Temperature Pulse Rate 130 H 131 H 132 H Respiratory 25 H Rate Blood Pressure 145/82 180/87 178/79 O2 Sat by Pulse 97 98 Oximetry 02/25/20 02/25/20 02/25/20 05:30 05:49 06:00 Temperature Pulse Rate 131 H 133 H 130 H Respiratory 21 18 Rate Blood Pressure 182/77 158/76 122/64 O2 Sat by Pulse 98 98 Oximetry 02/25/20 02/25/20 02/25/20 06:30 07:00 07:19 Temperature Pulse Rate 97 H 98 H 111 H Respiratory 17 16 Rate Blood Pressure 107/57 107/56 O2 Sat by Pulse 99 98 Oximetry 02/25/20 02/25/20 02/25/20 07:30 08:00 08:30 Temperature 99.1 F Pulse Rate 105 H 127 H 129 H Respiratory 19 22 20 Rate Blood Pressure 106/58 156/75 174/84 O2 Sat by Pulse 99 99 98 Oximetry 02/25/20 02/25/20 02/25/20 08:50 09:00 09:20 Temperature Pulse Rate 130 H 130 H 131 H Respiratory 23 Rate Blood Pressure 168/78 168/78 156/75 O2 Sat by Pulse 98 98 Oximetry 02/25/20 02/25/20 02/25/20 09:30 10:00 10:30 Temperature Pulse Rate 128 H 127 H 126 H Respiratory 22 18 22 Rate Blood Pressure 149/75 147/77 157/86 O2 Sat by Pulse 98 99 98 Oximetry 02/25/20 02/25/20 02/25/20 11:00 11:27 11:28 Temperature Pulse Rate 126 H 125 H 94 H Respiratory 23 Rate Blood Pressure 157/86 199/111 131/70 O2 Sat by Pulse 98 Oximetry 02/25/20 02/25/20 02/25/20 11:30 11:33 11:47 Temperature 98.4 F Pulse Rate 88 88 Respiratory 16 Rate Blood Pressure 123/66 O2 Sat by Pulse 98 Oximetry 02/25/20 12:00 Temperature Pulse Rate 82 Respiratory 17 Rate Blood Pressure 118/67 O2 Sat by Pulse 99 Oximetry Constitutional: no acute distress, other (on vent intubated and sedated) Eyes: non-icteric ENT: other (orally intubated ) Effort: normal Ascultation: Bilateral: clear Percussion: Bilateral: not dull Cardiovascular: irregular rhythm (but rate controlled) Gastrointestinal: other (post surgical changes) Integumentary: normal Extremities: edema Neurologic: unable to assess (on vent) CBC and BMP: 02/25/20 05:25 02/25/20 05:25 ABG, PT/INR, D-dimer: ABG ABG pH 7.318 pH Units (7.350-7.450) L 02/21/20 04:16 ABG pCO2 42.7 mm Hg 02/21/20 04:16 ABG pO2 100.0 mm Hg (80.0-90.0) H 02/21/20 04:16 ABG O2 Saturation 97.2 % (95.0-99.0) 02/21/20 04:16 PT/INR, D-dimer PT 16.9 Sec. (12.2-14.9) H 02/13/20 20:10 INR 1.41 (0.87-1.13) H 02/13/20 20:10 Abnormal lab findings: Abnormal Labs 02/11/20 02/11/20 02/11/20 15:27 15:27 15:27 WBC 22.5 H RBC Hgb Hct MCHC RDW Plt Count Seg Neuts % (Manual) 90.0 H Lymphocytes % (Manual) 4.0 L Monocytes % (Manual) Nucleated RBC % Seg Neutrophils # Man 20.3 H Lymphocytes # (Manual) 0.9 L Monocytes # (Manual) 1.1 H Eosinophils # (Manual) PT INR APTT 23.3 L Heparin Anti-Xa Level ABG pH ABG pO2 ABG HCO3 ABG O2 Saturation ABG Base Excess ABG Hemoglobin Oxyhemoglobin Sodium 132 L Potassium Chloride 96.0 L Carbon Dioxide 16 L BUN 59 H Creatinine 3.0 H Glucose 487 H POC Glucose Calcium Phosphorus Magnesium Alkaline Phosphatase 142 H Total Protein Albumin Triglycerides Lipase 86 H Urine WBC (Auto) Urine Creatinine Urine Total Protein Crossmatch 02/12/20 02/12/20 02/12/20 04:58 04:58 Unknown WBC 30.0 H RBC Hgb Hct MCHC RDW Plt Count Seg Neuts % (Manual) 96.0 H Lymphocytes % (Manual) 1.0 L Monocytes % (Manual) Nucleated RBC % Seg Neutrophils # Man 28.8 H Lymphocytes # (Manual) 0.3 L Monocytes # (Manual) 0.9 H Eosinophils # (Manual) PT INR APTT Heparin Anti-Xa Level ABG pH ABG pO2 ABG HCO3 ABG O2 Saturation ABG Base Excess ABG Hemoglobin Oxyhemoglobin Sodium Potassium Chloride Carbon Dioxide 15 L BUN 59 H Creatinine 3.0 H Glucose 477 H POC Glucose Calcium Phosphorus Magnesium Alkaline Phosphatase Total Protein Albumin 3.5 L Triglycerides Lipase Urine WBC (Auto) Urine Creatinine 35.3 H Urine Total Protein 796 H Crossmatch 02/13/20 02/13/20 02/13/20 05:43 05:43 13:24 WBC 38.2 H RBC Hgb Hct 43.6 H MCHC RDW Plt Count Seg Neuts % (Manual) 91.0 H Lymphocytes % (Manual) 4.0 L Monocytes % (Manual) Nucleated RBC % Seg Neutrophils # Man 34.8 H Lymphocytes # (Manual) Monocytes # (Manual) 1.1 H Eosinophils # (Manual) PT INR APTT Heparin Anti-Xa Level ABG pH ABG pO2 ABG HCO3 ABG O2 Saturation ABG Base Excess ABG Hemoglobin Oxyhemoglobin Sodium 136 L Potassium Chloride Carbon Dioxide 11 L BUN 71 H Creatinine 4.0 H Glucose 343 H POC Glucose 337 H Calcium Phosphorus Magnesium Alkaline Phosphatase Total Protein Albumin Triglycerides Lipase Urine WBC (Auto) Urine Creatinine Urine Total Protein Crossmatch 02/13/20 02/13/20 02/13/20 16:49 16:50 17:30 WBC RBC Hgb Hct MCHC RDW Plt Count Seg Neuts % (Manual) Lymphocytes % (Manual) Monocytes % (Manual) Nucleated RBC % Seg Neutrophils # Man Lymphocytes # (Manual) Monocytes # (Manual) Eosinophils # (Manual) PT INR APTT Heparin Anti-Xa Level ABG pH 7.226 L ABG pO2 77.9 L ABG HCO3 16.4 L ABG O2 Saturation ABG Base Excess -10.5 L ABG Hemoglobin 11.7 L Oxyhemoglobin 92.8 L Sodium Potassium Chloride Carbon Dioxide BUN Creatinine Glucose POC Glucose 272 H Calcium Phosphorus Magnesium Alkaline Phosphatase Total Protein Albumin Triglycerides Lipase Urine WBC (Auto) Urine Creatinine Urine Total Protein Crossmatch See Detail 02/13/20 02/13/20 02/13/20 20:10 20:42 22:08 WBC RBC Hgb Hct MCHC RDW Plt Count Seg Neuts % (Manual) Lymphocytes % (Manual) Monocytes % (Manual) Nucleated RBC % Seg Neutrophils # Man Lymphocytes # (Manual) Monocytes # (Manual) Eosinophils # (Manual) PT 16.9 H INR 1.41 H APTT Heparin Anti-Xa Level ABG pH 7.158 L* ABG pO2 ABG HCO3 18.6 L ABG O2 Saturation ABG Base Excess -10.2 L ABG Hemoglobin 11.9 L Oxyhemoglobin 93.1 L Sodium Potassium Chloride Carbon Dioxide BUN Creatinine Glucose POC Glucose 171 H Calcium Phosphorus Magnesium Alkaline Phosphatase Total Protein Albumin Triglycerides Lipase Urine WBC (Auto) Urine Creatinine Urine Total Protein Crossmatch 02/14/20 02/14/20 02/14/20 00:22 03:45 04:29 WBC RBC Hgb Hct MCHC RDW Plt Count Seg Neuts % (Manual) Lymphocytes % (Manual) Monocytes % (Manual) Nucleated RBC % Seg Neutrophils # Man Lymphocytes # (Manual) Monocytes # (Manual) Eosinophils # (Manual) PT INR APTT Heparin Anti-Xa Level ABG pH 7.193 L* ABG pO2 ABG HCO3 16.4 L ABG O2 Saturation ABG Base Excess -11.2 L ABG Hemoglobin 10.2 L Oxyhemoglobin 94.3 L Sodium Potassium Chloride 108.5 H Carbon Dioxide 16 L BUN 73 H Creatinine 4.3 H Glucose 167 H POC Glucose 199 H Calcium 8.0 L Phosphorus Magnesium Alkaline Phosphatase Total Protein Albumin Triglycerides Lipase Urine WBC (Auto) Urine Creatinine Urine Total Protein Crossmatch 02/14/20 02/14/20 02/14/20 04:29 05:26 12:11 WBC 14.4 H RBC Hgb Hct MCHC RDW 15.3 H Plt Count Seg Neuts % (Manual) 88.0 H Lymphocytes % (Manual) 6.0 L Monocytes % (Manual) Nucleated RBC % Seg Neutrophils # Man 12.7 H Lymphocytes # (Manual) 0.9 L Monocytes # (Manual) Eosinophils # (Manual) PT INR APTT Heparin Anti-Xa Level ABG pH ABG pO2 ABG HCO3 ABG O2 Saturation ABG Base Excess ABG Hemoglobin Oxyhemoglobin Sodium Potassium Chloride Carbon Dioxide BUN Creatinine Glucose POC Glucose 177 H 160 H Calcium Phosphorus Magnesium Alkaline Phosphatase Total Protein Albumin Triglycerides Lipase Urine WBC (Auto) Urine Creatinine Urine Total Protein Crossmatch 02/14/20 02/14/20 02/15/20 18:34 23:18 03:19 WBC RBC Hgb Hct MCHC RDW Plt Count Seg Neuts % (Manual) Lymphocytes % (Manual) Monocytes % (Manual) Nucleated RBC % Seg Neutrophils # Man Lymphocytes # (Manual) Monocytes # (Manual) Eosinophils # (Manual) PT INR APTT Heparin Anti-Xa Level ABG pH 7.246 L ABG pO2 ABG HCO3 13.7 L ABG O2 Saturation ABG Base Excess -12.5 L ABG Hemoglobin 8.4 L Oxyhemoglobin 94.6 L Sodium Potassium Chloride Carbon Dioxide BUN Creatinine Glucose POC Glucose 135 H 138 H Calcium Phosphorus Magnesium Alkaline Phosphatase Total Protein Albumin Triglycerides Lipase Urine WBC (Auto) Urine Creatinine Urine Total Protein Crossmatch 02/15/20 02/15/20 02/15/20 04:28 04:28 05:35 WBC RBC 2.88 L Hgb 8.6 L Hct 25.4 L D MCHC RDW 15.6 H Plt Count Seg Neuts % (Manual) Lymphocytes % (Manual) Monocytes % (Manual) Nucleated RBC % Seg Neutrophils # Man Lymphocytes # (Manual) Monocytes # (Manual) Eosinophils # (Manual) PT INR APTT Heparin Anti-Xa Level ABG pH ABG pO2 ABG HCO3 ABG O2 Saturation ABG Base Excess ABG Hemoglobin Oxyhemoglobin Sodium Potassium Chloride Carbon Dioxide 12 L BUN 72 H Creatinine 4.7 H Glucose 147 H POC Glucose 181 H Calcium 7.9 L Phosphorus Magnesium Alkaline Phosphatase Total Protein Albumin Triglycerides Lipase Urine WBC (Auto) Urine Creatinine Urine Total Protein Crossmatch 02/15/20 02/15/20 02/15/20 12:07 17:50 23:18 WBC RBC Hgb Hct MCHC RDW Plt Count Seg Neuts % (Manual) Lymphocytes % (Manual) Monocytes % (Manual) Nucleated RBC % Seg Neutrophils # Man Lymphocytes # (Manual) Monocytes # (Manual) Eosinophils # (Manual) PT INR APTT Heparin Anti-Xa Level ABG pH ABG pO2 ABG HCO3 ABG O2 Saturation ABG Base Excess ABG Hemoglobin Oxyhemoglobin Sodium Potassium Chloride Carbon Dioxide BUN Creatinine Glucose POC Glucose 136 H 177 H 284 H Calcium Phosphorus Magnesium Alkaline Phosphatase Total Protein Albumin Triglycerides Lipase Urine WBC (Auto) Urine Creatinine Urine Total Protein Crossmatch 02/16/20 02/16/20 02/16/20 04:20 05:24 05:29 WBC RBC Hgb Hct MCHC RDW Plt Count Seg Neuts % (Manual) Lymphocytes % (Manual) Monocytes % (Manual) Nucleated RBC % Seg Neutrophils # Man Lymphocytes # (Manual) Monocytes # (Manual) Eosinophils # (Manual) PT INR APTT Heparin Anti-Xa Level ABG pH ABG pO2 77.4 L ABG HCO3 ABG O2 Saturation ABG Base Excess -4.7 L ABG Hemoglobin 5.0 L Oxyhemoglobin Sodium 135 L Potassium 3.0 L D Chloride 90.7 L Carbon Dioxide BUN 64 H Creatinine 4.7 H Glucose 491 H POC Glucose 282 H Calcium 7.2 L Phosphorus Magnesium Alkaline Phosphatase Total Protein Albumin Triglycerides Lipase Urine WBC (Auto) Urine Creatinine Urine Total Protein Crossmatch 02/16/20 02/16/20 02/16/20 05:29 05:29 08:39 WBC RBC 2.31 L Hgb 7.2 L Hct 20.2 L MCHC 36 H RDW 15.3 H Plt Count 115 L Seg Neuts % (Manual) Lymphocytes % (Manual) Monocytes % (Manual) Nucleated RBC % Seg Neutrophils # Man Lymphocytes # (Manual) Monocytes # (Manual) Eosinophils # (Manual) PT INR APTT Heparin Anti-Xa Level ABG pH ABG pO2 ABG HCO3 ABG O2 Saturation ABG Base Excess ABG Hemoglobin Oxyhemoglobin Sodium Potassium Chloride Carbon Dioxide BUN Creatinine Glucose POC Glucose Calcium Phosphorus Magnesium Alkaline Phosphatase Total Protein Albumin Triglycerides 716 H Lipase Urine WBC (Auto) Urine Creatinine Urine Total Protein Crossmatch See Detail 02/16/20 02/16/20 02/17/20 12:27 19:04 00:02 WBC RBC Hgb Hct MCHC RDW Plt Count Seg Neuts % (Manual) Lymphocytes % (Manual) Monocytes % (Manual) Nucleated RBC % Seg Neutrophils # Man Lymphocytes # (Manual) Monocytes # (Manual) Eosinophils # (Manual) PT INR APTT Heparin Anti-Xa Level ABG pH ABG pO2 ABG HCO3 ABG O2 Saturation ABG Base Excess ABG Hemoglobin Oxyhemoglobin Sodium Potassium Chloride Carbon Dioxide BUN Creatinine Glucose POC Glucose 314 H 203 H 202 H Calcium Phosphorus Magnesium Alkaline Phosphatase Total Protein Albumin Triglycerides Lipase Urine WBC (Auto) Urine Creatinine Urine Total Protein Crossmatch 02/17/20 02/17/20 02/17/20 03:45 03:45 03:45 WBC RBC Hgb 9.9 L Hct 30.1 L D MCHC RDW Plt Count Seg Neuts % (Manual) Lymphocytes % (Manual) Monocytes % (Manual) Nucleated RBC % Seg Neutrophils # Man Lymphocytes # (Manual) Monocytes # (Manual) Eosinophils # (Manual) PT INR APTT Heparin Anti-Xa Level ABG pH ABG pO2 ABG HCO3 ABG O2 Saturation ABG Base Excess ABG Hemoglobin Oxyhemoglobin Sodium Potassium Chloride Carbon Dioxide 21 L BUN 63 H Creatinine 5.2 H Glucose 134 H POC Glucose Calcium 7.6 L Phosphorus Magnesium Alkaline Phosphatase Total Protein Albumin Triglycerides 238 H Lipase Urine WBC (Auto) Urine Creatinine Urine Total Protein Crossmatch 02/17/20 02/17/20 02/17/20 04:06 05:21 12:08 WBC RBC Hgb Hct MCHC RDW Plt Count Seg Neuts % (Manual) Lymphocytes % (Manual) Monocytes % (Manual) Nucleated RBC % Seg Neutrophils # Man Lymphocytes # (Manual) Monocytes # (Manual) Eosinophils # (Manual) PT INR APTT Heparin Anti-Xa Level ABG pH 7.288 L ABG pO2 ABG HCO3 ABG O2 Saturation ABG Base Excess -4.9 L ABG Hemoglobin 9.7 L Oxyhemoglobin 94.0 L Sodium Potassium Chloride Carbon Dioxide BUN Creatinine Glucose POC Glucose 132 H 141 H Calcium Phosphorus Magnesium Alkaline Phosphatase Total Protein Albumin Triglycerides Lipase Urine WBC (Auto) Urine Creatinine Urine Total Protein Crossmatch 02/17/20 02/17/20 02/17/20 18:07 19:54 23:13 WBC RBC Hgb Hct MCHC RDW Plt Count Seg Neuts % (Manual) Lymphocytes % (Manual) Monocytes % (Manual) Nucleated RBC % Seg Neutrophils # Man Lymphocytes # (Manual) Monocytes # (Manual) Eosinophils # (Manual) PT INR APTT Heparin Anti-Xa Level < 0.10 L ABG pH ABG pO2 ABG HCO3 ABG O2 Saturation ABG Base Excess ABG Hemoglobin Oxyhemoglobin Sodium Potassium Chloride Carbon Dioxide BUN Creatinine Glucose POC Glucose 189 H 167 H Calcium Phosphorus Magnesium Alkaline Phosphatase Total Protein Albumin Triglycerides Lipase Urine WBC (Auto) Urine Creatinine Urine Total Protein Crossmatch 02/18/20 02/18/20 02/18/20 03:41 04:37 05:44 WBC RBC Hgb Hct MCHC RDW Plt Count Seg Neuts % (Manual) Lymphocytes % (Manual) Monocytes % (Manual) Nucleated RBC % Seg Neutrophils # Man Lymphocytes # (Manual) Monocytes # (Manual) Eosinophils # (Manual) PT INR APTT Heparin Anti-Xa Level ABG pH 7.281 L ABG pO2 74.5 L ABG HCO3 16.2 L ABG O2 Saturation 94.3 L ABG Base Excess -9.7 L ABG Hemoglobin 9.8 L Oxyhemoglobin 92.1 L Sodium Potassium Chloride Carbon Dioxide 15 L BUN 65 H Creatinine 5.1 H Glucose 117 H POC Glucose 112 H Calcium 7.7 L Phosphorus Magnesium Alkaline Phosphatase Total Protein Albumin Triglycerides Lipase Urine WBC (Auto) Urine Creatinine Urine Total Protein Crossmatch 02/18/20 02/18/20 02/18/20 09:00 09:00 12:41 WBC 14.9 H RBC 2.99 L Hgb 8.8 L Hct 27.1 L MCHC RDW 15.8 H Plt Count 131 L Seg Neuts % (Manual) Lymphocytes % (Manual) Monocytes % (Manual) Nucleated RBC % Seg Neutrophils # Man Lymphocytes # (Manual) Monocytes # (Manual) Eosinophils # (Manual) PT INR APTT Heparin Anti-Xa Level ABG pH ABG pO2 ABG HCO3 ABG O2 Saturation ABG Base Excess ABG Hemoglobin Oxyhemoglobin Sodium Potassium Chloride Carbon Dioxide BUN Creatinine Glucose POC Glucose 140 H Calcium Phosphorus 6.40 H Magnesium 1.30 L Alkaline Phosphatase Total Protein Albumin Triglycerides Lipase Urine WBC (Auto) Urine Creatinine Urine Total Protein Crossmatch 02/18/20 02/18/20 02/19/20 17:58 23:06 03:50 WBC RBC Hgb Hct MCHC RDW Plt Count Seg Neuts % (Manual) Lymphocytes % (Manual) Monocytes % (Manual) Nucleated RBC % Seg Neutrophils # Man Lymphocytes # (Manual) Monocytes # (Manual) Eosinophils # (Manual) PT INR APTT Heparin Anti-Xa Level ABG pH 7.243 L ABG pO2 75.3 L ABG HCO3 11.8 L ABG O2 Saturation 94.0 L ABG Base Excess -14.1 L ABG Hemoglobin 9.6 L Oxyhemoglobin 91.8 L Sodium Potassium Chloride Carbon Dioxide BUN Creatinine Glucose POC Glucose 141 H 212 H Calcium Phosphorus Magnesium Alkaline Phosphatase Total Protein Albumin Triglycerides Lipase Urine WBC (Auto) Urine Creatinine Urine Total Protein Crossmatch 02/19/20 02/19/20 02/19/20 04:30 04:30 04:30 WBC 19.8 H RBC 3.19 L Hgb 9.1 L Hct 28.9 L MCHC RDW 15.5 H Plt Count Seg Neuts % (Manual) 86.0 H Lymphocytes % (Manual) 5.0 L Monocytes % (Manual) Nucleated RBC % Seg Neutrophils # Man 17.0 H Lymphocytes # (Manual) 1.0 L Monocytes # (Manual) 1.4 H Eosinophils # (Manual) PT INR APTT Heparin Anti-Xa Level ABG pH ABG pO2 ABG HCO3 ABG O2 Saturation ABG Base Excess ABG Hemoglobin Oxyhemoglobin Sodium 136 L Potassium Chloride Carbon Dioxide 12 L BUN 76 H Creatinine 5.2 H Glucose 228 H POC Glucose Calcium Phosphorus 8.00 H D Magnesium Alkaline Phosphatase Total Protein Albumin Triglycerides Lipase Urine WBC (Auto) Urine Creatinine Urine Total Protein Crossmatch 02/19/20 02/19/20 02/19/20 06:19 11:37 14:00 WBC RBC Hgb Hct MCHC RDW Plt Count Seg Neuts % (Manual) Lymphocytes % (Manual) Monocytes % (Manual) Nucleated RBC % Seg Neutrophils # Man Lymphocytes # (Manual) Monocytes # (Manual) Eosinophils # (Manual) PT INR APTT Heparin Anti-Xa Level ABG pH ABG pO2 ABG HCO3 ABG O2 Saturation ABG Base Excess ABG Hemoglobin Oxyhemoglobin Sodium 132 L Potassium Chloride 95.4 L Carbon Dioxide 15 L BUN 75 H Creatinine 5.2 H Glucose 526 H* POC Glucose 253 H 288 H Calcium 7.6 L Phosphorus Magnesium Alkaline Phosphatase Total Protein Albumin Triglycerides Lipase Urine WBC (Auto) Urine Creatinine Urine Total Protein Crossmatch 02/19/20 02/19/20 02/19/20 14:00 15:07 17:40 WBC RBC Hgb Hct MCHC RDW Plt Count Seg Neuts % (Manual) Lymphocytes % (Manual) Monocytes % (Manual) Nucleated RBC % Seg Neutrophils # Man Lymphocytes # (Manual) Monocytes # (Manual) Eosinophils # (Manual) PT INR APTT Heparin Anti-Xa Level ABG pH ABG pO2 ABG HCO3 ABG O2 Saturation ABG Base Excess ABG Hemoglobin Oxyhemoglobin Sodium Potassium Chloride Carbon Dioxide BUN Creatinine Glucose POC Glucose 324 H 328 H Calcium Phosphorus Magnesium Alkaline Phosphatase Total Protein Albumin Triglycerides Lipase Urine WBC (Auto) 166.0 H Urine Creatinine Urine Total Protein Crossmatch 02/19/20 02/20/20 02/20/20 23:40 03:15 03:15 WBC RBC Hgb Hct MCHC RDW Plt Count Seg Neuts % (Manual) Lymphocytes % (Manual) Monocytes % (Manual) Nucleated RBC % Seg Neutrophils # Man Lymphocytes # (Manual) Monocytes # (Manual) Eosinophils # (Manual) PT INR APTT Heparin Anti-Xa Level 0.19 L ABG pH ABG pO2 ABG HCO3 ABG O2 Saturation ABG Base Excess ABG Hemoglobin Oxyhemoglobin Sodium Potassium 3.5 L D Chloride Carbon Dioxide 19 L BUN 85 H Creatinine 5.4 H Glucose 353 H POC Glucose 390 H Calcium 8.3 L Phosphorus 6.50 H Magnesium Alkaline Phosphatase Total Protein Albumin Triglycerides Lipase Urine WBC (Auto) Urine Creatinine Urine Total Protein Crossmatch 02/20/20 02/20/20 02/20/20 03:15 04:29 05:21 WBC 13.6 H RBC 2.43 L Hgb 7.1 L Hct 21.3 L D MCHC RDW Plt Count 136 L Seg Neuts % (Manual) 81.0 H Lymphocytes % (Manual) 5.0 L Monocytes % (Manual) Nucleated RBC % Seg Neutrophils # Man 11.0 H Lymphocytes # (Manual) 0.7 L Monocytes # (Manual) Eosinophils # (Manual) PT INR APTT Heparin Anti-Xa Level ABG pH ABG pO2 ABG HCO3 ABG O2 Saturation ABG Base Excess -3.8 L ABG Hemoglobin 6.0 L Oxyhemoglobin 94.6 L Sodium Potassium Chloride Carbon Dioxide BUN Creatinine Glucose POC Glucose 400 H Calcium Phosphorus Magnesium Alkaline Phosphatase Total Protein Albumin Triglycerides Lipase Urine WBC (Auto) Urine Creatinine Urine Total Protein Crossmatch 02/20/20 02/20/20 02/20/20 11:52 18:30 20:02 WBC RBC Hgb Hct MCHC RDW Plt Count Seg Neuts % (Manual) Lymphocytes % (Manual) Monocytes % (Manual) Nucleated RBC % Seg Neutrophils # Man Lymphocytes # (Manual) Monocytes # (Manual) Eosinophils # (Manual) PT INR APTT Heparin Anti-Xa Level ABG pH ABG pO2 ABG HCO3 ABG O2 Saturation ABG Base Excess ABG Hemoglobin Oxyhemoglobin Sodium Potassium Chloride Carbon Dioxide BUN Creatinine Glucose 584 H* POC Glucose 348 H 422 H Calcium Phosphorus Magnesium Alkaline Phosphatase Total Protein Albumin Triglycerides Lipase Urine WBC (Auto) Urine Creatinine Urine Total Protein Crossmatch 02/20/20 02/21/20 02/21/20 23:31 03:53 03:53 WBC RBC Hgb 5.9 L* Hct 18.5 L* MCHC RDW Plt Count Seg Neuts % (Manual) Lymphocytes % (Manual) Monocytes % (Manual) Nucleated RBC % Seg Neutrophils # Man Lymphocytes # (Manual) Monocytes # (Manual) Eosinophils # (Manual) PT INR APTT Heparin Anti-Xa Level 1.13 H ABG pH ABG pO2 ABG HCO3 ABG O2 Saturation ABG Base Excess ABG Hemoglobin Oxyhemoglobin Sodium Potassium Chloride Carbon Dioxide BUN Creatinine Glucose POC Glucose 341 H Calcium Phosphorus Magnesium Alkaline Phosphatase Total Protein Albumin Triglycerides Lipase Urine WBC (Auto) Urine Creatinine Urine Total Protein Crossmatch 02/21/20 02/21/20 02/21/20 03:53 04:16 06:00 WBC RBC Hgb Hct MCHC RDW Plt Count Seg Neuts % (Manual) Lymphocytes % (Manual) Monocytes % (Manual) Nucleated RBC % Seg Neutrophils # Man Lymphocytes # (Manual) Monocytes # (Manual) Eosinophils # (Manual) PT INR APTT Heparin Anti-Xa Level ABG pH 7.318 L ABG pO2 100.0 H ABG HCO3 ABG O2 Saturation ABG Base Excess -4.4 L ABG Hemoglobin 9.1 L Oxyhemoglobin Sodium 136 L Potassium Chloride 97.5 L Carbon Dioxide 21 L BUN 97 H Creatinine 5.3 H Glucose 246 H POC Glucose Calcium 8.1 L Phosphorus Magnesium Alkaline Phosphatase Total Protein Albumin Triglycerides Lipase Urine WBC (Auto) Urine Creatinine Urine Total Protein Crossmatch See Detail 02/21/20 02/21/20 02/21/20 06:32 11:45 17:40 WBC RBC Hgb Hct MCHC RDW Plt Count Seg Neuts % (Manual) Lymphocytes % (Manual) Monocytes % (Manual) Nucleated RBC % Seg Neutrophils # Man Lymphocytes # (Manual) Monocytes # (Manual) Eosinophils # (Manual) PT INR APTT Heparin Anti-Xa Level ABG pH ABG pO2 ABG HCO3 ABG O2 Saturation ABG Base Excess ABG Hemoglobin Oxyhemoglobin Sodium Potassium Chloride Carbon Dioxide BUN Creatinine Glucose POC Glucose 317 H 389 H 387 H Calcium Phosphorus Magnesium Alkaline Phosphatase Total Protein Albumin Triglycerides Lipase Urine WBC (Auto) Urine Creatinine Urine Total Protein Crossmatch 02/21/20 02/22/20 02/22/20 23:37 03:16 03:16 WBC 22.8 H RBC 2.49 L Hgb 7.4 L Hct 22.7 L MCHC RDW 15.6 H Plt Count Seg Neuts % (Manual) 74.0 H Lymphocytes % (Manual) 8.5 L Monocytes % (Manual) 13.5 H Nucleated RBC % 2.5 H Seg Neutrophils # Man 16.9 H Lymphocytes # (Manual) Monocytes # (Manual) 3.1 H Eosinophils # (Manual) 0.5 H PT INR APTT Heparin Anti-Xa Level 0.27 L ABG pH ABG pO2 ABG HCO3 ABG O2 Saturation ABG Base Excess ABG Hemoglobin Oxyhemoglobin Sodium Potassium Chloride Carbon Dioxide BUN Creatinine Glucose POC Glucose 297 H Calcium Phosphorus Magnesium Alkaline Phosphatase Total Protein Albumin Triglycerides Lipase Urine WBC (Auto) Urine Creatinine Urine Total Protein Crossmatch 02/22/20 02/22/20 02/22/20 03:16 05:16 11:50 WBC RBC Hgb Hct MCHC RDW Plt Count Seg Neuts % (Manual) Lymphocytes % (Manual) Monocytes % (Manual) Nucleated RBC % Seg Neutrophils # Man Lymphocytes # (Manual) Monocytes # (Manual) Eosinophils # (Manual) PT INR APTT Heparin Anti-Xa Level ABG pH ABG pO2 ABG HCO3 ABG O2 Saturation ABG Base Excess ABG Hemoglobin Oxyhemoglobin Sodium 135 L Potassium Chloride 95.2 L Carbon Dioxide BUN 83 H Creatinine 4.3 H Glucose 264 H POC Glucose 321 H 351 H Calcium 8.1 L Phosphorus 4.60 H Magnesium Alkaline Phosphatase Total Protein Albumin Triglycerides Lipase Urine WBC (Auto) Urine Creatinine Urine Total Protein Crossmatch 02/22/20 02/23/20 02/23/20 17:26 00:04 02:55 WBC 25.6 H RBC 1.86 L Hgb 5.7 L* Hct 17.3 L* MCHC RDW 16.0 H Plt Count Seg Neuts % (Manual) 80.5 H Lymphocytes % (Manual) 9.5 L Monocytes % (Manual) Nucleated RBC % 1.0 H Seg Neutrophils # Man 20.6 H Lymphocytes # (Manual) Monocytes # (Manual) 1.5 H Eosinophils # (Manual) PT INR APTT Heparin Anti-Xa Level ABG pH ABG pO2 ABG HCO3 ABG O2 Saturation ABG Base Excess ABG Hemoglobin Oxyhemoglobin Sodium Potassium Chloride Carbon Dioxide BUN Creatinine Glucose POC Glucose 356 H 359 H Calcium Phosphorus Magnesium Alkaline Phosphatase Total Protein Albumin Triglycerides Lipase Urine WBC (Auto) Urine Creatinine Urine Total Protein Crossmatch 02/23/20 02/23/20 02/23/20 02:55 02:55 05:33 WBC RBC Hgb Hct MCHC RDW Plt Count Seg Neuts % (Manual) Lymphocytes % (Manual) Monocytes % (Manual) Nucleated RBC % Seg Neutrophils # Man Lymphocytes # (Manual) Monocytes # (Manual) Eosinophils # (Manual) PT INR APTT Heparin Anti-Xa Level 0.15 L ABG pH ABG pO2 ABG HCO3 ABG O2 Saturation ABG Base Excess ABG Hemoglobin Oxyhemoglobin Sodium 130 L Potassium Chloride 92.8 L Carbon Dioxide BUN 94 H Creatinine 4.7 H Glucose 293 H POC Glucose 330 H Calcium Phosphorus Magnesium Alkaline Phosphatase Total Protein Albumin Triglycerides Lipase Urine WBC (Auto) Urine Creatinine Urine Total Protein Crossmatch 02/23/20 02/23/20 02/23/20 12:03 13:13 18:34 WBC 24.2 H RBC 2.61 L Hgb 8.3 L Hct 24.4 L D MCHC RDW Plt Count 125 L Seg Neuts % (Manual) Lymphocytes % (Manual) Monocytes % (Manual) Nucleated RBC % Seg Neutrophils # Man Lymphocytes # (Manual) Monocytes # (Manual) Eosinophils # (Manual) PT INR APTT Heparin Anti-Xa Level ABG pH ABG pO2 ABG HCO3 ABG O2 Saturation ABG Base Excess ABG Hemoglobin Oxyhemoglobin Sodium Potassium Chloride Carbon Dioxide BUN Creatinine Glucose POC Glucose 310 H 337 H Calcium Phosphorus Magnesium Alkaline Phosphatase Total Protein Albumin Triglycerides Lipase Urine WBC (Auto) Urine Creatinine Urine Total Protein Crossmatch 02/23/20 02/24/20 02/24/20 22:28 05:25 05:40 WBC 21.0 H RBC 2.40 L Hgb 7.3 L Hct 23.4 L MCHC RDW 15.8 H Plt Count 120 L Seg Neuts % (Manual) 87.0 H Lymphocytes % (Manual) 5.0 L Monocytes % (Manual) Nucleated RBC % 1.0 H Seg Neutrophils # Man 18.3 H Lymphocytes # (Manual) 1.1 L Monocytes # (Manual) 1.1 H Eosinophils # (Manual) PT INR APTT Heparin Anti-Xa Level ABG pH ABG pO2 ABG HCO3 ABG O2 Saturation ABG Base Excess ABG Hemoglobin Oxyhemoglobin Sodium Potassium Chloride Carbon Dioxide BUN Creatinine Glucose POC Glucose 314 H 307 H Calcium Phosphorus Magnesium Alkaline Phosphatase Total Protein Albumin Triglycerides Lipase Urine WBC (Auto) Urine Creatinine Urine Total Protein Crossmatch 02/24/20 02/24/20 02/24/20 05:40 09:05 12:11 WBC RBC Hgb Hct MCHC RDW Plt Count Seg Neuts % (Manual) Lymphocytes % (Manual) Monocytes % (Manual) Nucleated RBC % Seg Neutrophils # Man Lymphocytes # (Manual) Monocytes # (Manual) Eosinophils # (Manual) PT INR APTT Heparin Anti-Xa Level ABG pH ABG pO2 ABG HCO3 ABG O2 Saturation ABG Base Excess ABG Hemoglobin Oxyhemoglobin Sodium 123 L D 134 L D Potassium 6.8 H* D Chloride 88.1 L 96 L Carbon Dioxide 19 L BUN 83 H 89 H Creatinine 3.9 H 4.2 H Glucose 657 H* 262 H POC Glucose 217 H Calcium 8.1 L Phosphorus 4.90 H Magnesium 2.50 H Alkaline Phosphatase Total Protein Albumin Triglycerides Lipase Urine WBC (Auto) Urine Creatinine Urine Total Protein Crossmatch 02/24/20 02/24/20 02/25/20 17:58 23:23 05:25 WBC 25.3 H RBC 2.59 L Hgb 8.1 L Hct 23.9 L MCHC RDW Plt Count Seg Neuts % (Manual) 87.0 H Lymphocytes % (Manual) 6.0 L Monocytes % (Manual) Nucleated RBC % Seg Neutrophils # Man 22.0 H Lymphocytes # (Manual) Monocytes # (Manual) 1.5 H Eosinophils # (Manual) PT INR APTT Heparin Anti-Xa Level ABG pH ABG pO2 ABG HCO3 ABG O2 Saturation ABG Base Excess ABG Hemoglobin Oxyhemoglobin Sodium Potassium Chloride Carbon Dioxide BUN Creatinine Glucose POC Glucose 236 H 223 H Calcium Phosphorus Magnesium Alkaline Phosphatase Total Protein Albumin Triglycerides Lipase Urine WBC (Auto) Urine Creatinine Urine Total Protein Crossmatch 02/25/20 02/25/20 02/25/20 05:25 05:40 11:47 WBC RBC Hgb Hct MCHC RDW Plt Count Seg Neuts % (Manual) Lymphocytes % (Manual) Monocytes % (Manual) Nucleated RBC % Seg Neutrophils # Man Lymphocytes # (Manual) Monocytes # (Manual) Eosinophils # (Manual) PT INR APTT Heparin Anti-Xa Level ABG pH ABG pO2 ABG HCO3 ABG O2 Saturation ABG Base Excess ABG Hemoglobin Oxyhemoglobin Sodium 132 L Potassium Chloride 94.9 L Carbon Dioxide BUN 100 H Creatinine 4.9 H Glucose 174 H POC Glucose 173 H 154 H Calcium Phosphorus Magnesium Alkaline Phosphatase Total Protein 5.0 L Albumin 2.3 L Triglycerides Lipase Urine WBC (Auto) Urine Creatinine Urine Total Protein Crossmatch
[2020-02-26] MEDS: INSULIN LISPRO 100 UNIT/ML SUB-Q SCH ×4 (00:13→19:21)
[2020-02-26] MEDS: METOPROLOL TARTRATE 5 MG/5 ML INJ IV PRN (00:20)
[2020-02-26] MEDS: HYDROmorphone 1 MG/1 ML INJ IV PRN ×2 (00:20→22:52)
[2020-02-26] MEDS: VANCOMYCIN 250 MG/10 ML ORAL LIQD PO SCH ×4 (00:21→18:16)
[2020-02-26] MEDS: dilTIAZem 30 MG TAB PO SCH ×2 (00:21→05:37)
[2020-02-26] MEDS: fentaNYL 100 MCG/2 ML INJ IV PRN ×3 (02:47→18:21)
[2020-02-26 06:08] LABS: Basophils # (Auto) 0.1 K/mm3 (0.0-0.1); Basophils % (Auto) 0.4 % (0.0-1.8); Eosinophils % (Auto) 0.2 % (0.0-4.3); Hemoglobin 7.4 gm/dl (10.1-14.3); Lymphocytes # (Auto) 1.3 K/mm3 (1.2-5.4); Lymphocytes % (Auto) 7.8 % (13.4-35.0); Mean Corpuscular HGB Conc 34 % (30-34); Mean Corpuscular Volume 93 fl (79-97); Monocytes # (Auto) 1.4 K/mm3 (0.0-0.8); Monocytes % (Auto) 8.5 % (0.0-7.3); Platelet Count 141 K/mm3 (140-440); Red Blood Count 2.36 M/mm3 (3.65-5.03); Red Cell Distribution Width 15.5 % (13.2-15.2)
[2020-02-26 06:31] LABS: Calcium 8.5 mg/dL (8.4-10.2)
[2020-02-26] MEDS ORDERED: VANCOMYCIN/NS 1 GM/250 ML 1 GM/250 ML BAG IV SCH (08:00)
--- NOTE | 2020-02-26 08:44 | Progress Note ---
Assessment and Plan Cultures: Blood culture 02/11/2020 no growth today Sputum culture 02/12/19 no growth today Sputum culture 02/13/19 usual resp sulaiman Blood culture 02/19/2020 no growth Cdiff toxin PCR Positive urine culture 02/19/2020 10-100K mult Blood culture 02/24/2020 with gram-positive cocci 4 out of 4 bottles A/P: 74-year-old female past medical history hypertension, diabetes, mitral valve prolapse, hyperlipidemia admitted with acute sepsis and abdominal pain #Acute sepsis: likely due to ischemic bowel. 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 S/p exploratory laparotomy, enterocolonic anastamosis, closure of abdomen, application of wound vac on 02/15. on TPN #Respiratory failure: on BIPAP #Presumed infected renal cyst #Diabetes: Tight glycemic control for best outcomes #Diarrhea: resolved prior to presentation, doubt C diff, likely from ischemic bowel. #LITZY on CKD: Renally adjust antibiotics, worsening #Anemia/thrombocytopenia: from sepsis, severe anemia now, anticoagulation on hold. #Diarrhea? Cdiff toxin PCR Positive, can be colinization rather than patogenic Cdiff, should have a Cdiff EIA not available unfortunately. #UTI: corcoran replaced for I+O. #DVT on heparin gtt #RVR Afib on cardizem and amiodarone Recs: -Start renally adjusted IV vancomycin given positive blood cultures -Follow-up repeat blood cultures which are growing gram-positive cocci -Removal/exchange PICC and hemodialysis access -Repeat blood cultures today -stop vancomycin 125 mg QID day 7 of 7 -s/p cefepime and flagyl - 8 days Discussed with pharmacy staff Dr. Charles will be covering from tomorrow until Sunday, Dr. James will be covering Sunday guarded prognosis Will follow. Jo-Ann Mccray MD Infectious Diseases Depositing Machine Operator [facility] ([facility] M [phone] O [phone] Subjective Date of service: 02/26/20 Principal diagnosis: Ischemic Bowel Interval history: Remains intubated alert, tachy on monitor, remains with low grade fever Objective - Exam Narrative Exam: Constitutional: alert intubated Head, Ears, Nose: Normocephalic, atraumatic. Eyes: Conjunctivae/corneas clear. No icterus. No ptosis. Neck: Supple, no meningeal signs Oral: +ETT Cardiovascular: tachycardic Respiratory: Good air entry, clear to auscultation bilaterally GI: Soft, midline wound with VAC. Musculoskeletal:yareli arm edema Skin: No rash or abscess Hem/Lymphatic: No palpable cervical or supraclavicular nodes. No lymphangitis Psych: no agitated Neurological: alert left PICC rectal tube with black stool corcoran - Constitutional Vitals: Vital Signs Temp Pulse Resp BP Pulse Ox 100.8 F H 134 H 23 181/98 99 02/26/20 07:52 02/26/20 07:16 02/26/20 06:00 02/26/20 07:16 02/26/20 07:16 Temperature -Last 24 Hours Temperature 100.8 F Temperature 99.7 F Temperature 100.6 F Temperature 99.1 F Temperature 99.3 F Temperature 99.3 F Temperature 98.4 F - Labs CBC & Chem 7: 02/26/20 05:00 02/26/20 05:00 Labs: Abnormal lab results 02/13/20 02/25/20 02/25/20 Range/Units 20:42 11:47 17:53 WBC (4.5-11.0) K/mm3 RBC (3.65-5.03) M/mm3 Hgb (10.1-14.3) gm/dl Hct (30.3-42.9) % RDW (13.2-15.2) % Lymph % (Auto) (13.4-35.0) % [place] % (Auto) (0.0-7.3) % [place] # (0.0-0.8) K/mm3 Seg Neutrophils % (40.0-70.0) % Seg Neutrophils # (1.8-7.7) K/mm3 BUN (7-17) mg/dL Creatinine (0.7-1.2) mg/dL POC Glucose 171 H 154 H 131 H (70-105) 02/25/20 02/26/20 02/26/20 Range/Units 23:49 05:00 05:00 WBC 16.2 H (4.5-11.0) K/mm3 RBC 2.36 L (3.65-5.03) M/mm3 Hgb 7.4 L (10.1-14.3) gm/dl Hct 22.0 L (30.3-42.9) % RDW 15.5 H (13.2-15.2) % Lymph % (Auto) 7.8 L (13.4-35.0) % [place] % (Auto) 8.5 H (0.0-7.3) % [place] # 1.4 H (0.0-0.8) K/mm3 Seg Neutrophils % 83.1 H (40.0-70.0) % Seg Neutrophils # 13.5 H (1.8-7.7) K/mm3 BUN 74 H (7-17) mg/dL Creatinine 4.1 H (0.7-1.2) mg/dL POC Glucose 124 H (70-105)
[2020-02-26] MEDS ORDERED: VANCOMYCIN PHARMACY TO DOSE IV SCH (09:00)
--- NOTE | 2020-02-26 09:06 | Progress Note ---
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 * leucocytosis * type 2 DM--uncontrolled * Acidosis * Hypokalemia * Hypocalcemia * Anemia * C diff + * Gram Positive Bacteremia Plan: * Remain hopeful for renal recovery with minimal HD needs in near future, urine output 1.9L noted yesterday in addition to UF with HD * Tolerated HD well on 02/20, 02/22, 02/24 with reasonable UF * No indication for HD today, will plan HD tomorrow for additional UF and electrolyte management in setting of ongoing extubation trials * In light of bacteremia, ok to remove HD catheter, would ideally remove tomorrow after HD to allow for line holiday over the weekend * Will continue HD as needed moving forward based on volume and electrolyte assessment * Acidosis stable now * Insulin control per primary * Continue iv abx per ID recs * Surgery recs appreciated * PRBC transfusion prn per primary, holding heparin gtt * Daily lytes; strict i/os * Avoid nephrotoxins * vasopressors prn Thank for involving in the care of this critically ill patient. We will follow closely with you; please do not hesitate to call me on my cell at for any renal related issues. High risk for decompensation given clinical status Subjective Date of service: 02/26/20 Principal diagnosis: Ischemic Bowel Interval history: Chart reviewed for 24 hour events Objective - Exam Narrative Exam: Gen: Intubated, opens eyes ENT: ETT in place CV: s1, S2 Resp: on vent Abd: soft Ext: no c/c/e : corcoran with clear yellow urine Neuro: opens eye spontaneously - Vital Signs Vital signs: Vital Signs - 12hr 02/25/20 02/25/20 02/25/20 21:16 21:30 21:45 Temperature Pulse Rate 104 H 127 H 130 H Respiratory 22 23 26 H Rate Blood Pressure 153/76 176/86 179/80 O2 Sat by Pulse 99 98 97 Oximetry 02/25/20 02/25/20 02/25/20 22:00 22:15 22:30 Temperature Pulse Rate 131 H 132 H 133 H Respiratory 23 28 H 27 H Rate Blood Pressure 179/99 182/95 187/91 O2 Sat by Pulse 98 98 98 Oximetry 02/25/20 02/25/20 02/25/20 22:45 23:00 23:15 Temperature Pulse Rate 133 H 134 H 133 H Respiratory 30 H 26 H 25 H Rate Blood Pressure 180/96 175/93 195/102 O2 Sat by Pulse 98 99 98 Oximetry 02/25/20 02/25/20 02/26/20 23:30 23:45 00:00 Temperature 100.6 F H Pulse Rate 134 H 134 H 133 H Respiratory 24 27 H 29 H Rate Blood Pressure 191/97 185/93 157/82 O2 Sat by Pulse 98 98 99 Oximetry 02/26/20 02/26/20 02/26/20 00:15 00:20 00:21 Temperature Pulse Rate 135 H 135 H 134 H Respiratory 30 H Rate Blood Pressure 187/88 187/88 187/88 O2 Sat by Pulse 99 Oximetry 02/26/20 02/26/20 02/26/20 00:30 00:43 00:45 Temperature Pulse Rate 134 H 72 133 H Respiratory 27 H 22 Rate Blood Pressure 165/82 156/81 O2 Sat by Pulse 99 99 Oximetry 02/26/20 02/26/20 02/26/20 01:00 01:15 01:30 Temperature Pulse Rate 133 H 134 H 133 H Respiratory 23 22 25 H Rate Blood Pressure 157/82 165/80 156/85 O2 Sat by Pulse 99 99 99 Oximetry 02/26/20 02/26/20 02/26/20 01:45 02:00 02:15 Temperature Pulse Rate 132 H 133 H 133 H Respiratory 25 H 19 25 H Rate Blood Pressure 169/87 177/86 177/88 O2 Sat by Pulse 99 99 99 Oximetry 02/26/20 02/26/20 02/26/20 02:24 02:30 02:45 Temperature Pulse Rate 133 H 133 H 134 H Respiratory 26 H 25 H Rate Blood Pressure 177/88 180/85 171/94 O2 Sat by Pulse 99 98 99 Oximetry 02/26/20 02/26/20 02/26/20 02:47 03:00 03:15 Temperature Pulse Rate 134 H 89 85 Respiratory 18 18 Rate Blood Pressure 171/94 171/94 101/41 O2 Sat by Pulse 99 99 Oximetry 02/26/20 02/26/20 02/26/20 03:30 03:45 04:00 Temperature 99.7 F H Pulse Rate 71 81 77 Respiratory 19 19 19 Rate Blood Pressure 93/41 104/40 102/38 O2 Sat by Pulse 99 99 100 Oximetry 02/26/20 02/26/20 02/26/20 04:15 04:30 04:45 Temperature Pulse Rate 80 78 72 Respiratory 18 19 19 Rate Blood Pressure 106/43 110/44 109/44 O2 Sat by Pulse 100 99 100 Oximetry 02/26/20 02/26/20 02/26/20 05:00 05:15 05:30 Temperature Pulse Rate 75 75 126 H Respiratory 21 19 18 Rate Blood Pressure 110/45 103/44 103/44 O2 Sat by Pulse 99 99 99 Oximetry 02/26/20 02/26/20 02/26/20 05:37 05:45 06:00 Temperature Pulse Rate 121 H 131 H 128 H Respiratory 22 23 Rate Blood Pressure 159/80 169/88 164/81 O2 Sat by Pulse 98 98 Oximetry 02/26/20 02/26/20 02/26/20 07:16 07:52 08:37 Temperature 100.8 F H Pulse Rate 134 H 134 H Respiratory 28 H Rate Blood Pressure 181/98 184/96 O2 Sat by Pulse 99 99 Oximetry - Lab 02/26/20 05:00 02/26/20 05:00 Most recent lab results ABG pH 7.318 pH Units (7.350-7.450) L 02/21/20 04:16 ABG pCO2 42.7 mm Hg 02/21/20 04:16 ABG pO2 100.0 mm Hg (80.0-90.0) H 02/21/20 04:16 ABG HCO3 21.4 mmol/L (20.0-26.0) 02/21/20 04:16 ABG O2 Saturation 97.2 % (95.0-99.0) 02/21/20 04:16 Calcium 8.5 mg/dL (8.4-10.2) 02/26/20 05:00 Phosphorus 4.90 mg/dL (2.5-4.5) H 02/24/20 05:40 Magnesium 2.20 mg/dL (1.7-2.3) 02/25/20 05:25 Urine Creatinine 35.3 mg/dL (0.1-20.0) H 02/12/20 Unknown Urine Total Protein 796 mg/dL (5-11.8) H 02/12/20 Unknown Medications & Allergies - Medications Allergies/Adverse Reactions: Allergies clindamycin Allergy (Verified 02/11/20 14:52) Hives Home Medications: Home Medications Medication Instructions Recorded Confirmed Last Taken Type Doxazosin [Cardura] 4 mg PO QDAY 02/11/20 02/11/20 02/10/20 History Hydralazine HCl 50 mg PO DAILY 02/11/20 02/11/20 02/10/20 History Metoprolol 25 mg PO DAILY 02/11/20 02/11/20 02/10/20 History Sertraline [Zoloft] 50 mg PO QDAY 02/11/20 02/11/20 02/10/20 History amLODIPine [Norvasc] 10 mg PO DAILY 02/11/20 02/11/20 02/10/20 History glipiZIDE 10 mg PO BID 02/11/20 02/11/20 02/10/20 History Active Medications: Generic Name Dose Route Start Last Admin Trade Name Freq PRN Reason Stop Dose Admin Acetaminophen 650 mg 02/11/20 19:01 02/24/20 23:26 Tylenol PO 650 mg Q4H PRN Administration Pain MILD(1-3)/Fever >100.5/ADAMS Amiodarone HCl 200 mg 02/24/20 10:00 02/25/20 09:21 Cordarone PO 200 mg QDAY NADER Administration Lipase/Protease/Amylase 1 each 02/20/20 10:28 Pancreaze 10,500 Unit FEEDTUBE PRN PRN For Clogged Feeding Tube Dextrose 50 ml 02/19/20 14:58 D50w (25gm) Syringe IV Q30MIN PRN Hypoglycemia Protocol Diltiazem HCl 30 mg 02/23/20 12:00 02/26/20 05:37 Cardizem PO 30 mg Q6HR NADER Administration Famotidine 20 mg 02/24/20 10:00 02/25/20 09:21 Pepcid PO 20 mg DAILY NADER Administration Fentanyl 50 mcg 02/19/20 15:30 02/19/20 15:29 Sublimaze IV 50 mcg Q10MIN PRN Administration ANALGESIA Fentanyl 50 mcg 02/24/20 09:52 02/26/20 05:38 Sublimaze IV 50 mcg Q2HR PRN Administration Pain, Moderate (4-6) Hydromorphone HCl 1 mg 02/24/20 09:54 02/26/20 00:20 Dilaudid IV 1 mg Q3H PRN Administration Pain , Severe (7-10) Hydrophilic Ointment 1 applic 02/13/20 19:41 Vaseline Lip Therapy TP Q2HR PRN Dry Lips Fentanyl Citrate 2,000 mcg in 100 mls @ 4.05 mls/hr 02/19/20 16:00 02/24/20 18:59 Fentanyl Drip Premix IV 0 mcg/kg/hr TITR NADER 0 mls/hr Titration Protocol 1 MCG/KG/HR Sodium Chloride 100 mls @ 999 mls/hr 02/22/20 12:30 Nacl 0.9% IV FABIOLA PRN Hypotension Vancomycin HCl 1,500 mg/ 530 mls @ 333.333 mls/hr 02/26/20 10:00 Sodium Chloride IV 02/26/20 11:35 ONCE ONE Insulin Glargine 40 units 02/24/20 22:00 02/25/20 21:15 Lantus SUB-Q 40 units BID NADER Administration Insulin Human Lispro 0 unit 02/19/20 18:00 02/26/20 05:31 Humalog SUB-Q Not Given Q6HR [facility] Protocol Labetalol HCl 20 mg 02/13/20 18:00 02/26/20 02:47 Labetalol IV 20 mg Q4H PRN Administration SBP >150 Metoprolol Tartrate 2.5 mg 02/13/20 18:00 02/26/20 00:20 Metoprolol IV 2.5 mg Q6HR PRN Administration HR >130 Multi-Ingred Cream/Lotion/Oil/Oint 1 applic 02/13/20 19:41 Artificial Tears Ophth Oint OU Q4HR PRN Dry Eye(s) Sertraline HCl 50 mg 02/23/20 10:00 02/25/20 09:21 Zoloft PO 50 mg QDAY NADER Administration Simple Syrup 15 ml 02/20/20 10:28 Simple Syrup FEEDTUBE PRN PRN Hypoglycemia Simple Syrup 30 ml 02/20/20 10:28 Simple Syrup FEEDTUBE PRN PRN Hypoglycemia Sodium Bicarbonate 325 mg 02/20/20 10:28 Sodium Bicarbonate FEEDTUBE PRN PRN For Clogged Feeding Tube Sodium Chloride 10 ml 02/11/20 22:00 02/25/20 21:14 Sodium Chloride Flush Syringe 10 Ml IV 10 ml BID NADER Administration Sodium Chloride 10 ml 02/11/20 19:01 02/15/20 22:43 Sodium Chloride Flush Syringe 10 Ml IV 10 ml PRN PRN Administration LINE FLUSH Vancomycin HCl 125 mg 02/20/20 15:00 02/26/20 05:37 Vancomycin Po PO 02/27/20 06:01 125 mg Q6HR NADER Administration
--- NOTE | 2020-02-26 09:48 | Progress Note ---
Assessment and Plan Assessment and plan: --Febrile illness; secondary to sepsis,/gram-positive bacteremia ID following --Acute hypoxic resp failure: Pulm following. On ventilatory support Wean as tolerated and extubate, pulmonary critical following --Anemia; requiring multiple units of PRBC, total 5 units transfusion Hb 7.3 today, monitor H&H and transfuse additional PRBC as needed --Atrial fibrillation; rate controlled continue Cardizem and amiodarone No anticoagulation in view of severe anemia requiring multiple units of PRBC Cardiology following --Sepsis: due to ischemic bowel. Completed antibiotics, ID surgery following --Peritonitis :secondary to ischemia/gangrene of Small bowel and Cecum. s/p Exploratory laparotomy, extensive small bowel resection, partial colon resection, placement of abthera vac on 02/13/2020. S/p exploratory laparotomy, enterocolonic anastamosis, closure of abdomen, application of wound vac on 02/15 --UTI : Completed antibiotics per ID. --C. difficile colitis. [Positive C. difficile test] contact isolation,p.o. vancomycin --Diarrhea: resolved prior to presentation, doubt C diff, likely from ischemic bowel. --Presumed infected renal cyst. ID following --Diabetes Mellitus type 2:Tight glycemic control, accucheks and ssri, Insulin as needed --Hyponatremia; closely monitor electrolytes, mild improvement, gentle hydration --LITZY on CKD: Renally adjust antibiotics, hemodialysis as needed nephrology following --Severe protein calorie malnutrition; nutrition supplements Supportive care --Right saphenous vein DVT.s/p Anticoagulation No anticoagulation due to severe anemia, closely monitor Critical care time 35 minutes 02/18/2020. Patient still with oral ETT on mechanical ventilation. Patient currently with PSVT trials, FiO2 30% pressure support 12 and PEEP 6. Continue to wean as tolerated. Consider extubation today. However, chest x-ray today reveals developing right pleural effusion. Continue wound care per wound team. Continue incisional wound VAC. Continue strict n.p.o. and NGT to low intermittent suction. Continue IV antibiotics per ID 02/19/2020. Patient currently with AC mode ventilation rate 16, tidal volume 450, FiO2 30%, PEEP 6. Continue to wean per protocol and pulmonary recommendations. Patient failed PSV secondary to tachypnea today. Continue w ound care per wound team. Continue incisional wound VAC. Continue strict n.p.o. and NGT to low intermittent suction. Continue IV antibiotics per ID. Creatinine stable today at 5.1/5.2 and remains non-oliguric; no indication for renal replacement therapy emergently per nephrology. Nephrology to administer 100 mg of IV Lasix today to further promote diuresis and help with metabolic acidosis. Remains at high risk for needing renal replacement therapy 02/20/2020. Patient currently with AC mode ventilation rate 16, tidal volume 450, FiO2 30%, PEEP 6. Continue to wean per protocol and pulmonary recommendations. Patient failed PSV trials. Patient with right lower extremity DVT. Continue anticoagulation which patient is currently on. Patient also with C. difficile colitis/C. difficile positive. We will start p.o. vancomycin. Acute kidney injury on CKD continues to worsen. Therefore, patient will likely need hemodialysis. Defer to nephrology. 02/21/2020. Patient remains on mechanical ventilation AC mode, rate 16, tidal volume 450, FiO2 30%. Continue weaning per protocol. 2 units PRBCs ordered stat for severe anemia. Follow-up CBC posttransfusion. Patient currently on an ticoagulation for right lower extremity DVT. Continue wound care. BG elevated in the 300s. We will start Lantus 10 units at bedtime. 02/22/2020. Patient remains on mechanical ventilation AC mode rate 16, tidal volume 450 and FiO2 30%. Continue PSV trials urine culture found to be negative. Continue p.o. vancomycin for C. difficile. Continue cefepime, Flagyl and fluconazole for sepsis/peritonitis. Blood cultures thus far negative. Patient s/p PRBCs for severe anemia. Hemoglobin stable at 7.4. Follow-up CBC in a.m. Patient currently on anticoagulation for right lower extremity DVT. 02/23/20. Anticoagulation for A. fib currently on hold due to anemia. Patient is s/p PRBCs. We will follow-up H&H. Continue to feed via NG tube and advance as tolerated. Continue TPN until patient tolerating tube feeding at goal. Continue wound VAC and monitor drainage. With regards her renal function, LITZY on CKD 3--with ATN, hemodialysis per nephrology. S/p IV Lasix 100mg yesterday with ~1L urine output; will administer another high dose IV lasix bolus on non- HD days to encourage ongoing volume removal and minimize HD UF needs. Continue antibiotics per ID. Leukocytosis likely secondary to UTI. CT C/A/P 02/19/20 - post operative changes of right colon. Anastamosis is intact. Generalized edema of abdominal wall. Urine and blood cultures were found to be negative. 02/24/20; on vent PSV, CPAP mode, wean as tolerated and extubate, transition TPN to full dose tube feeding HD as needed, no HD recommended today 02/25/20: Worsening leukocytosis, multifactorial secondary to UTI, C. difficile colitis On oral vancomycin, ID following, wean as tolerated and extubate, more dialysis today 02/26/20; patient is febrile, has gram-positive cocci bacteremia, continue current antibiotics, ID following The high probability of a clinically significant, sudden or life threatening deterioration of the [respiratory] system(s) required my full and direct attention, intervention and personal management. The aggregate critical care time was [32] minutes. This time is in addition to time spent performing reported procedures but includes the following: [x] Data Review and interpretation [x] Patient assessment and monitoring of vital signs [x] Documentation [x] Medication orders and management History Interval history: Patient seen and examined at the bedside Patient's chart and medications reviewed Patient he runs low-grade fever Mild distress Vital signs reviewed Hospitalist Physical - Constitutional Vitals: Temp Pulse Resp BP Pulse Ox 100.8 F H 134 H 28 H 184/96 99 02/26/20 07:52 02/26/20 08:37 02/26/20 08:37 02/26/20 08:37 02/26/20 08:37 General appearance: Present: no acute distress, well-nourished, obese, other ( Intubated, on vent, febrile) - EENT Eyes: Present: PERRL, EOM intact - Neck Neck: Present: supple, normal ROM - Respiratory Respiratory effort: normal Respiratory: bilateral: diminished, negative: rales, rhonchi, wheezing - Cardiovascular Rhythm: regular Heart Sounds: Present: S1 & S2 - Extremities Extremities: no ischemia, No edema - Abdominal General gastrointestinal: soft, non-tender, non-distended, normal bowel sounds - Integumentary Integumentary: Present: clear, warm - Psychiatric Psychiatric: other (Debated on vent) - Neurologic Neurologic: other (Intubated on vent) HEART Score - HEART Score Troponin: Troponin T < 0.010 ng/mL (0.00-0.029) 02/11/20 15:27 Results - Labs CBC & Chem 7: 02/26/20 05:00 02/26/20 05:00 Labs: Laboratory Last Values WBC 16.2 K/mm3 (4.5-11.0) H 02/26/20 05:00 RBC 2.36 M/mm3 (3.65-5.03) L 02/26/20 05:00 Hgb 7.4 gm/dl (10.1-14.3) L 02/26/20 05:00 Hct 22.0 % (30.3-42.9) L 02/26/20 05:00 MCV 93 fl (79-97) 02/26/20 05:00 MCH 32 pg (28-32) 02/26/20 05:00 MCHC 34 % (30-34) 02/26/20 05:00 RDW 15.5 % (13.2-15.2) H 02/26/20 05:00 Plt Count 141 K/mm3 (140-440) 02/26/20 05:00 Lymph % (Auto) 7.8 % (13.4-35.0) L 02/26/20 05:00 [place] % (Auto) 8.5 % (0.0-7.3) H 02/26/20 05:00 Eos % (Auto) 0.2 % (0.0-4.3) 02/26/20 05:00 Baso % (Auto) 0.4 % (0.0-1.8) 02/26/20 05:00 Lymph # 1.3 K/mm3 (1.2-5.4) 02/26/20 05:00 [place] # 1.4 K/mm3 (0.0-0.8) H 02/26/20 05:00 Eos # 0.0 K/mm3 (0.0-0.4) 02/26/20 05:00 Baso # 0.1 K/mm3 (0.0-0.1) 02/26/20 05:00 Add Manual Diff Complete 02/25/20 05:25 Total Counted 100 02/25/20 05:25 Seg Neutrophils % 83.1 % (40.0-70.0) H 02/26/20 05:00 Seg Neuts % (Manual) 87.0 % (40.0-70.0) H 02/25/20 05:25 Band Neutrophils % 1.0 % 02/25/20 05:25 Lymphocytes % (Manual) 6.0 % (13.4-35.0) L 02/25/20 05:25 Reactive Lymphs % (Man) 0 % 02/25/20 05:25 Monocytes % (Manual) 6.0 % (0.0-7.3) 02/25/20 05:25 Eosinophils % (Manual) 0 % (0.0-4.3) 02/25/20 05:25 Basophils % (Manual) 0 % (0.0-1.8) 02/25/20 05:25 Metamyelocytes % 0 % 02/25/20 05:25 Myelocytes % 0 % 02/25/20 05:25 Promyelocytes % 0 % 02/25/20 05:25 Blast Cells % 0 % 02/25/20 05:25 Nucleated RBC % Not Reportable 02/25/20 05:25 Seg Neutrophils # 13.5 K/mm3 (1.8-7.7) H 02/26/20 05:00 Seg Neutrophils # Man 22.0 K/mm3 (1.8-7.7) H 02/25/20 05:25 Band Neutrophils # 0.3 K/mm3 02/25/20 05:25 Lymphocytes # (Manual) 1.5 K/mm3 (1.2-5.4) 02/25/20 05:25 Abs React Lymphs (Man) 0.0 K/mm3 02/25/20 05:25 Monocytes # (Manual) 1.5 K/mm3 (0.0-0.8) H 02/25/20 05:25 Eosinophils # (Manual) 0.0 K/mm3 (0.0-0.4) 02/25/20 05:25 Basophils # (Manual) 0.0 K/mm3 (0.0-0.1) 02/25/20 05:25 Metamyelocytes # 0.0 K/mm3 02/25/20 05:25 Myelocytes # 0.0 K/mm3 02/25/20 05:25 Promyelocytes # 0.0 K/mm3 02/25/20 05:25 Blast Cells # 0.0 K/mm3 02/25/20 05:25 WBC Morphology Not Reportable 02/25/20 05:25 Hypersegmented Neuts Not Reportable 02/25/20 05:25 Hyposegmented Neuts Not Reportable 02/25/20 05:25 Hypogranular Neuts Not Reportable 02/25/20 05:25 Smudge Cells Not Reportable 02/25/20 05:25 Toxic Granulation Not Reportable 02/25/20 05:25 Toxic Vacuolation Not Reportable 02/25/20 05:25 Dohle Bodies Not Reportable 02/25/20 05:25 Pelger-Huet Anomaly Not Reportable 02/25/20 05:25 Jyoti Rods Not Reportable 02/25/20 05:25 Platelet Estimate Consistent w auto 02/25/20 05:25 Clumped Platelets Not Reportable 02/25/20 05:25 Plt Clumps, EDTA Not Reportable 02/25/20 05:25 Large Platelets Not Reportable 02/25/20 05:25 Giant Platelets Not Reportable 02/25/20 05:25 Platelet Satelliting Not Reportable 02/25/20 05:25 Plt Morphology Comment Not Reportable 02/25/20 05:25 RBC Morphology Not Reportable 02/25/20 05:25 Dimorphic RBCs Not Reportable 02/25/20 05:25 Polychromasia Few 02/25/20 05:25 Hypochromasia Not Reportable 02/25/20 05:25 Poikilocytosis Not Reportable 02/25/20 05:25 Anisocytosis 1+ 02/25/20 05:25 Microcytosis Not Reportable 02/25/20 05:25 Macrocytosis Not Reportable 02/25/20 05:25 Spherocytes Not Reportable 02/25/20 05:25 Pappenheimer Bodies Not Reportable 02/25/20 05:25 Sickle Cells Not Reportable 02/25/20 05:25 Target Cells Not Reportable 02/25/20 05:25 Tear Drop Cells Not Reportable 02/25/20 05:25 Ovalocytes Not Reportable 02/25/20 05:25 Helmet Cells Not Reportable 02/25/20 05:25 [place] Bodies Not Reportable 02/25/20 05:25 Lillie Rings Not Reportable 02/25/20 05:25 Andrea Cells Not Reportable 02/25/20 05:25 Bite Cells Not Reportable 02/25/20 05:25 Crenated Cell Not Reportable 02/25/20 05:25 Elliptocytes Not Reportable 02/25/20 05:25 Acanthocytes (Spur) Not Reportable 02/25/20 05:25 Rouleaux Not Reportable 02/25/20 05:25 Hemoglobin C Crystals Not Reportable 02/25/20 05:25 Schistocytes Not Reportable 02/25/20 05:25 Malaria parasites Not Reportable 02/25/20 05:25 Babar Bodies Not Reportable 02/25/20 05:25 Hem Pathologist Commnt No 02/25/20 05:25 PT 16.9 Sec. (12.2-14.9) H 02/13/20 20:10 INR 1.41 (0.87-1.13) H 02/13/20 20:10 APTT 35.3 Sec. (24.2-36.6) 02/13/20 20:10 Heparin Anti-Xa Level 0.15 U.I./ml (0.3-0.7) L 02/23/20 02:55 ABG pH 7.318 pH Units (7.350-7.450) L 02/21/20 04:16 ABG pCO2 42.7 mm Hg 02/21/20 04:16 ABG pO2 100.0 mm Hg (80.0-90.0) H 02/21/20 04:16 ABG HCO3 21.4 mmol/L (20.0-26.0) 02/21/20 04:16 ABG O2 Saturation 97.2 % (95.0-99.0) 02/21/20 04:16 ABG O2 Content 12.3 (0.0-44) 02/21/20 04:16 ABG Base Excess -4.4 mmol/L (-2.0-3.0) L 02/21/20 04:16 ABG Hemoglobin 9.1 gm/dl (12.0-16.0) L 02/21/20 04:16 ABG Carboxyhemoglobin 1.5 % (0.0-5.0) 02/21/20 04:16 ABG Methemoglobin 0.7 % (0.0-1.5) 02/21/20 04:16 Oxyhemoglobin 95.2 % (95.0-99.0) 02/21/20 04:16 FiO2 30 % 02/21/20 04:16 Sodium 137 mmol/L (137-145) 02/26/20 05:00 Potassium 4.3 mmol/L (3.6-5.0) 02/26/20 05:00 Chloride 98.3 mmol/L (98-107) 02/26/20 05:00 Carbon Dioxide 23 mmol/L (22-30) 02/26/20 05:00 Anion Gap 20 mmol/L 02/26/20 05:00 BUN 74 mg/dL (7-17) H 02/26/20 05:00 Creatinine 4.1 mg/dL (0.7-1.2) H 02/26/20 05:00 Estimated GFR 11 ml/min 02/26/20 05:00 BUN/Creatinine Ratio 18 % 02/26/20 05:00 Glucose 98 mg/dL (65-100) 02/26/20 05:00 POC Glucose 101 (70-105) 02/26/20 05:34 Ketones Quantitative Negative (Negative) 02/13/20 14:51 Lactic Acid 0.70 mmol/L (0.7-2.0) 02/14/20 Unknown Calcium 8.5 mg/dL (8.4-10.2) 02/26/20 05:00 Phosphorus 4.90 mg/dL (2.5-4.5) H 02/24/20 05:40 Magnesium 2.20 mg/dL (1.7-2.3) 02/25/20 05:25 Total Bilirubin 0.30 mg/dL (0.1-1.2) 02/25/20 05:25 Direct Bilirubin < 0.2 mg/dL (0-0.2) 02/25/20 05:25 Indirect Bilirubin 0.1 mg/dL 02/25/20 05:25 AST 20 units/L (5-40) 02/25/20 05:25 ALT 17 units/L (7-56) 02/25/20 05:25 Alkaline Phosphatase 76 units/L (35-129) 02/25/20 05:25 Troponin T < 0.010 ng/mL (0.00-0.029) 02/11/20 15:27 Total Protein 5.0 g/dL (6.3-8.2) L 02/25/20 05:25 Albumin 2.3 g/dL (3.9-5) L 02/25/20 05:25 Albumin/Globulin Ratio 0.9 % 02/25/20 05:25 Triglycerides 238 mg/dL (2-149) H 02/17/20 03:45 Lipase 60 units/L (13-60) 02/13/20 14:51 Urine Color Yellow (Yellow) 02/19/20 14:00 Urine Turbidity Cloudy (Clear) 02/19/20 14:00 Urine pH 5.0 (5.0-7.0) 02/19/20 14:00 Ur Specific [place] 1.007 (1.003-1.030) 02/19/20 14:00 Urine Protein 100 mg/dl mg/dL (Negative) 02/19/20 14:00 Urine Glucose (UA) >=500 mg/dL (Negative) 02/19/20 14:00 Urine Ketones Tr mg/dL (Negative) 02/19/20 14:00 Urine Blood Lg (Negative) 02/19/20 14:00 Urine Nitrite Neg (Negative) 02/19/20 14:00 Urine Bilirubin Neg (Negative) 02/19/20 14:00 Urine Urobilinogen < 2.0 mg/dL (<2.0) 02/19/20 14:00 Ur Leukocyte Esterase Lg (Negative) 02/19/20 14:00 Urine WBC (Auto) 166.0 /HPF (0.0-6.0) H 02/19/20 14:00 Urine RBC (Auto) 20.0 /HPF (0.0-6.0) 02/19/20 14:00 U Epithel Cells (Auto) 2.0 /HPF (0-13.0) 02/19/20 14:00 Urine Bacteria (Auto) 1+ /HPF (Negative) 02/19/20 14:00 Urine WBC Clumps 3+ /HPF 02/19/20 14:00 Urine Mucus Few /HPF 02/19/20 14:00 Urine Yeast (Budding) 3+ /HPF 02/19/20 14:00 Urine Eosinophils None seen (None Seen) 02/12/20 Unknown Urine Creatinine 35.3 mg/dL (0.1-20.0) H 02/12/20 Unknown Protein/Creatinin Ratio 22.55 02/12/20 Unknown Urine Total Protein 796 mg/dL (5-11.8) H 02/12/20 Unknown C. difficile Tox (PCR) Positive (Negative) 02/19/20 12:46 Hepatitis A IgM Ab Non-reactive (NonReactive) 02/21/20 10:30 Hep Bs Antigen Non-reactive (Negative) 02/21/20 10:30 Hep B Core IgM Ab Non-reactive (NonReactive) 02/21/20 10:30 Hepatitis C Antibody Non-reactive (NonReactive) 02/21/20 10:30 Blood Type O NEGATIVE 02/21/20 06:00 Antibody Screen Negative 02/21/20 06:00 Crossmatch See Detail 02/21/20 06:00 Microbiology: Microbiology 02/24/20 14:51 Peripheral/Venous Blood Culture - Preliminary 02/24/20 14:51 Peripheral/Venous Blood Culture - Preliminary - Diagnostic Impressions Diagnostic Impressions: Echocardiogram 02/13/20 18:02 Transthoracic Echocardiogram Indication: Afib BP: 101/70 HR: 128 Findings Left Ventricle: The left ventricular chamber size is normal. Mild to moderate concentric left ventricular hypertrophy is observed. Global left ventricular wall motion and contractility are within normal limits. Global left ventricular systolic function is normal. The estimated ejection fraction is 60-65%. Left Atrium: The left atrium is mild to moderately dilated. Right Ventricle: The right ventricular cavity size is normal. The right ventricular global systolic function is normal. Right Atrium: The right atrium appears normal. The interatrial septum appears normal. Aortic Valve: The aortic valve structure is normal. The aortic valve leaflets are mildly thickened. There is no evidence of aortic regurgitation. There is no evidence of aortic stenosis. Mitral Valve: The mitral valve leaflets appear normal. There is no evidence of mitral regurgitation. There is no evidence of mitral stenosis. Tricuspid Valve: The tricuspid valve leaflets are normal. There is mild to moderate tricuspid regurgitation. The right ventricular systolic pressure is calculated at 39 mmHg. There is evidence of pulmonary hypertension. There is no tricuspid stenosis. Pulmonic Valve: The pulmonic valve appears normal. There is no evidence of pulmonic regurgitation. There is no pulmonic stenosis. Pericardium: A pericardial effusion is visualized. There is a minimial pericardial effusion. A left pleural effusion is present. There is a moderate pleural effusion. Aorta: There is no dilatation of the ascending aorta. There is no dilatation of the aortic arch. There is no dilatation of the descending thoracic aorta. There is no dilatation of the aortic root. Venous: The inferior vena cava appears normal in size. Measurements Chambers 2D Name Value Normal Range IVSd (2D) 1.34 cm (0.6 - 1.1) LVPWd (2D) 1.35 cm (0.6 - 1.1) LVIDd (2D) 4.72 cm (3.7 - 5.6) LVIDs (2D) 3.28 cm (2 - 3.8) LV FS (2D) 30.38 % - EF Teichholz (2D) 57.75 % - Ao root diameter (2D) 3.02 cm (2 - 3.7) Volumes/Mass Name Value Normal Range LA ESV SP 4CH (A/L) 55.87 ml - LA ESV SP 2CH (A/L) 67.65 ml - LA ESV BP (A/L) 63.67 ml - LA ESV SP 4CH (MOD) 54.25 ml - LA ESV SP 2CH (MOD) 63.2 ml - LA ESV BP (MOD) 60.49 ml - LA ESV BP (MOD) index 34.18 ml/m2 - LV EDV SP 4CH (MOD) 70.96 ml - LV ESV SP 4CH (MOD) 23.49 ml - EF SP 4CH (MOD) 66.89 % - LV EDV SP 2CH (MOD) 61.41 ml - LV ESV SP 2CH (MOD) 27.43 ml - EF SP 2CH (MOD) 55.33 % - LV EDV BP 69.85 ml - LV ESV BP 26.44 ml - BP EF (MOD) 62.14 % - Aortic Valve Name Value Normal Range AV Vmax 1.29 m/sec - AV VTI 18.56 cm - AV peak gradient 6.69 mmHg - AV mean gradient 3.39 mmHg - LVOT diameter 1.95 cm - LVOT Vmax 1.14 m/sec - LVOT VTI 16.24 cm - LVOT peak gradient 5.21 mmHg - LVOT mean gradient 2.04 mmHg - SV LVOT 48.71 ml - TABATHA (continuity Vmax) 2.65 cm2 - TABATHA (continuity VTI) 2.62 cm2 - Ascending Ao 2.96 cm - Tricuspid Valve Name Value Normal Range TR Vmax 2.47 m/sec - TR peak gradient 24 mmHg - RAP 15 mmHg - RVSP 39 mmHg - Pulmonic Valve/Qp:Qs Name Value Normal Range PV Vmax 1.15 m/sec - PV peak gradient 5.33 mmHg - PV acceleration time 68.51 msec - Acevedo/IV: Voiding Method Indwelling Catheter IV Catheter Type [Right VAS Cath Internal Jugular] IV Catheter Type [Left Upper PICC Line arm] IV Catheter Type [Right INT / Saline Lock Antecubital] IV Catheter Type [Right Peripheral IV Forearm] IV Catheter Type [Left Forearm INT / Saline Lock ] IV Catheter Type [Right Hand] Peripheral IV Active Medications - Current Medications Current Medications: Generic Name Dose Route Start Last Admin Trade Name Freq PRN Reason Stop Dose Admin Acetaminophen 650 mg 02/11/20 19:01 02/24/20 23:26 Tylenol PO 650 mg Q4H PRN Administration Pain MILD(1-3)/Fever >100.5/ADAMS Amiodarone HCl 200 mg 02/24/20 10:00 02/25/20 09:21 Cordarone PO 200 mg QDAY NADER Administration Lipase/Protease/Amylase 1 each 02/20/20 10:28 Pancreaze 10,500 Unit FEEDTUBE PRN PRN For Clogged Feeding Tube Dextrose 50 ml 02/19/20 14:58 D50w (25gm) Syringe IV Q30MIN PRN Hypoglycemia Protocol Diltiazem HCl 30 mg 02/23/20 12:00 02/26/20 05:37 Cardizem PO 30 mg Q6HR NADER Administration Famotidine 20 mg 02/24/20 10:00 02/25/20 09:21 Pepcid PO 20 mg DAILY NADER Administration Fentanyl 50 mcg 02/19/20 15:30 02/19/20 15:29 Sublimaze IV 50 mcg Q10MIN PRN Administration ANALGESIA Fentanyl 50 mcg 02/24/20 09:52 02/26/20 05:38 Sublimaze IV 50 mcg Q2HR PRN Administration Pain, Moderate (4-6) Hydromorphone HCl 1 mg 02/24/20 09:54 02/26/20 00:20 Dilaudid IV 1 mg Q3H PRN Administration Pain , Severe (7-10) Hydrophilic Ointment 1 applic 02/13/20 19:41 Vaseline Lip Therapy TP Q2HR PRN Dry Lips Fentanyl Citrate 2,000 mcg in 100 mls @ 4.05 mls/hr 02/19/20 16:00 02/24/20 18:59 Fentanyl Drip Premix IV 0 mcg/kg/hr TITR NADER 0 mls/hr Titration Protocol 1 MCG/KG/HR Sodium Chloride 100 mls @ 999 mls/hr 02/22/20 12:30 Nacl 0.9% IV FABIOLA PRN Hypotension Vancomycin HCl 1,500 mg/ 530 mls @ 333.333 mls/hr 02/26/20 10:00 Sodium Chloride IV 02/26/20 11:35 ONCE ONE Insulin Glargine 40 units 02/24/20 22:00 02/25/20 21:15 Lantus SUB-Q 40 units BID NADER Administration Insulin Human Lispro 0 unit 02/19/20 18:00 02/26/20 05:31 Humalog SUB-Q Not Given Q6HR [facility] Protocol Labetalol HCl 20 mg 02/13/20 18:00 02/26/20 02:47 Labetalol IV 20 mg Q4H PRN Administration SBP >150 Metoprolol Tartrate 2.5 mg 02/13/20 18:00 02/26/20 00:20 Metoprolol IV 2.5 mg Q6HR PRN Administration HR >130 Multi-Ingred Cream/Lotion/Oil/Oint 1 applic 02/13/20 19:41 Artificial Tears Ophth Oint OU Q4HR PRN Dry Eye(s) Sertraline HCl 50 mg 02/23/20 10:00 02/25/20 09:21 Zoloft PO 50 mg QDAY NADER Administration Simple Syrup 15 ml 02/20/20 10:28 Simple Syrup FEEDTUBE PRN PRN Hypoglycemia Simple Syrup 30 ml 02/20/20 10:28 Simple Syrup FEEDTUBE PRN PRN Hypoglycemia Sodium Bicarbonate 325 mg 02/20/20 10:28 Sodium Bicarbonate FEEDTUBE PRN PRN For Clogged Feeding Tube Sodium Chloride 10 ml 02/11/20 22:00 02/25/20 21:14 Sodium Chloride Flush Syringe 10 Ml IV 10 ml BID NADER Administration Sodium Chloride 10 ml 02/11/20 19:01 02/15/20 22:43 Sodium Chloride Flush Syringe 10 Ml IV 10 ml PRN PRN Administration LINE FLUSH Vancomycin HCl 125 mg 02/20/20 15:00 02/26/20 05:37 Vancomycin Po PO 02/27/20 06:01 125 mg Q6HR NADER Administration Nutrition/Malnutrition Assess - Dietary Evaluation Nutrition/Malnutrition Findings: Nutrition Notes Start: 02/14/20 09:49 Freq: Status: Active Protocol: Document 02/25/20 09:25 LP (Rec: 02/25/20 09:29 LP [id number]) Nutrition Notes Initial or Follow up Reassessment Current Diagnosis Acute Kidney Injury,Decubitus( Pressure Ulcer),Diabetes, Hypertension,Hyperlipidemia Other Pertinent Diagnosis ischemic bowel with gangrene s /p exp lap, Current Diet CPN at 50ml/hr + Vital 1.2 at 50ml/hr Labs/Tests Na 132 BUN 100 Cr 4.9 BG 174 Pertinent Medications Reviewed Height 5 ft 5 in Weight 94 kg [place] Body Weight (kg) 56.81 BMI 34.4 Weight Status Obese Subjective/Other Information Pt tolerating Vital 1.2 at goal rate of 50ml/hr. TPN will be D/C once bag is empty. Percent of energy/protein needs met: 100%/100% Burn Absent Trauma Absent Current % PO Negligible Minimum of two criteria No #2 Nutrition Diagnosis Inadequate oral intake Diagnosis Progress(for reassessment Continues documentation) #1 Nutrition Diagnosis Altered GI function As Evidenced by Signs and Symptoms Pt tolerating TF at 50ml/hr ( goal rate) Diagnosis Progress(for reassessment Resolved documentation) Is patient on ventilator? Yes Is Patient Ambulatory and/or Out of Bed No REE-([facility]-confined to bed) 1729.128 Kcal/Kg value to use for calculation 15 Approximate Energy Requirements Using 1410 kcal/Kg Calculation Used for Recommendations Kcal/kg Additional Notes Pro needs 1.2-2g/k-140g/ day Fluid needs 1ml/kcal Nutrition Intervention Change Diet Order: TF Nutrition Support: D/C TPN. Vital 1.2 at 50ml/hr (goal rate) Flush with 100ml q4h Kcal 1,440 Protein (gm) 90 Fluid (mL) 966 Goal #1 Meet at least 75% of energy and protein needs Anticipated Discharge Needs: Unable to identify at this time Follow-Up By: 02/27/20 Additional Comments Follow for stable TF
[2020-02-26] MEDS ORDERED: VANCOMYCIN 1,500 MG in SODIUM CHLORIDE 0.9% 500 ML 500 ML IV ONE (10:00)
--- NOTE | 2020-02-26 10:07 | Progress Note ---
Assessment and Plan - Patient Problems (1) Ischemic necrosis of small bowel Current Visit: Yes Status: Acute Plan to address problem: Assessment and Plan 74-year-old female status post 1. Exploratory laparotomy, enterocolonic anastamosis, closure of abdomen, application of wound vac, POD 10 2. Exploratory laparotomy, extensive small bowel resection, partial colon resection, placement of abthera vac, placement of right radial arterial line, 02/13/20 1. bowel ischemia with gangrene 2. sepsis 3. LITZY 4. Afib with RVR 5. Tobacco dependence 6. Venous duplex - L superficial femoral vein nonocclusive thrombus 7. Cdiff + 8. Protein calorie malnutrition CXR 02/20/20 - no residual disease CT C/A/P 02/19/20 - post operative changes of right colon. Anastamosis is intact. Generalized edema of abdominal wall. Pt currently hemodynamically stable. Tolerating TF at goal, having bowel function. Abdominal exam is benign. Plan: 1. neuro - Continue as needed pain control - fent gtt off, ativan and dilaudid prn ordered. Pt still with AMS but was apparently more awake today before sedation. 2. CV - cardiology on board for Afib. monitor H/H. Anticoagulation remains on hold - May be restarted per cards/vascular surgery. No contraindication from general surgery standpoint to start oral AC 3. Resp - vent management per ICU team, extubate when criteria met. D/W Dr. Cervantes - plan to send patient to LTACH for aggressive weaning. 4. GI - Cont TF via NGT. Hold if residual >250cc. Continue incisional wound VAC . GI ppx - protonix IV 5. - strict I/Os. Nephrology on board, HD started. 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 ID - continue abx per ID. Leukocytosis improved today. Blcx 02/23 - gram positives in 4 bottles - staph. Plan per ID to switch out PICC and HD access. COVID negative 7. Endo - strict glucose control 8. Musc - turning q2 as per protocol, skin breakdown precautions, SCDs. If systemic AC not restarted, recommend starting PPx with Heparin SQ q8 9. FEN - Cont TF@goal, Replace lytes as needed. DC TPN LTACH planning in progress. Ok to dc to LTACH from surgery standpoint. Healthcare Customer Service notes reviewed and recs appreciated. Thank you, please call with questions. Subjective Date of service: 02/26/20 Narrative: Pt seen and examined. Tm 100.8. Tolerating TF at goal. +liquid BMs. Objective Vital Signs - 12hr 02/25/20 02/25/20 02/25/20 22:00 22:15 22:30 Temperature Pulse Rate 131 H 132 H 133 H Respiratory 23 28 H 27 H Rate Blood Pressure 179/99 182/95 187/91 O2 Sat by Pulse 98 98 98 Oximetry 02/25/20 02/25/20 02/25/20 22:45 23:00 23:15 Temperature Pulse Rate 133 H 134 H 133 H Respiratory 30 H 26 H 25 H Rate Blood Pressure 180/96 175/93 195/102 O2 Sat by Pulse 98 99 98 Oximetry 02/25/20 02/25/20 02/26/20 23:30 23:45 00:00 Temperature 100.6 F H Pulse Rate 134 H 134 H 133 H Respiratory 24 27 H 29 H Rate Blood Pressure 191/97 185/93 157/82 O2 Sat by Pulse 98 98 99 Oximetry 02/26/20 02/26/20 02/26/20 00:15 00:20 00:21 Temperature Pulse Rate 135 H 135 H 134 H Respiratory 30 H Rate Blood Pressure 187/88 187/88 187/88 O2 Sat by Pulse 99 Oximetry 02/26/20 02/26/20 02/26/20 00:30 00:43 00:45 Temperature Pulse Rate 134 H 72 133 H Respiratory 27 H 22 Rate Blood Pressure 165/82 156/81 O2 Sat by Pulse 99 99 Oximetry 02/26/20 02/26/20 02/26/20 01:00 01:15 01:30 Temperature Pulse Rate 133 H 134 H 133 H Respiratory 23 22 25 H Rate Blood Pressure 157/82 165/80 156/85 O2 Sat by Pulse 99 99 99 Oximetry 02/26/20 02/26/20 02/26/20 01:45 02:00 02:15 Temperature Pulse Rate 132 H 133 H 133 H Respiratory 25 H 19 25 H Rate Blood Pressure 169/87 177/86 177/88 O2 Sat by Pulse 99 99 99 Oximetry 02/26/20 02/26/20 02/26/20 02:24 02:30 02:45 Temperature Pulse Rate 133 H 133 H 134 H Respiratory 26 H 25 H Rate Blood Pressure 177/88 180/85 171/94 O2 Sat by Pulse 99 98 99 Oximetry 02/26/20 02/26/20 02/26/20 02:47 03:00 03:15 Temperature Pulse Rate 134 H 89 85 Respiratory 18 18 Rate Blood Pressure 171/94 171/94 101/41 O2 Sat by Pulse 99 99 Oximetry 02/26/20 02/26/20 02/26/20 03:30 03:45 04:00 Temperature 99.7 F H Pulse Rate 71 81 77 Respiratory 19 19 19 Rate Blood Pressure 93/41 104/40 102/38 O2 Sat by Pulse 99 99 100 Oximetry 02/26/20 02/26/20 02/26/20 04:15 04:30 04:45 Temperature Pulse Rate 80 78 72 Respiratory 18 19 19 Rate Blood Pressure 106/43 110/44 109/44 O2 Sat by Pulse 100 99 100 Oximetry 02/26/20 02/26/20 02/26/20 05:00 05:15 05:30 Temperature Pulse Rate 75 75 126 H Respiratory 21 19 18 Rate Blood Pressure 110/45 103/44 103/44 O2 Sat by Pulse 99 99 99 Oximetry 02/26/20 02/26/20 02/26/20 05:37 05:45 06:00 Temperature Pulse Rate 121 H 131 H 128 H Respiratory 22 23 Rate Blood Pressure 159/80 169/88 164/81 O2 Sat by Pulse 98 98 Oximetry 02/26/20 02/26/20 02/26/20 07:16 07:52 08:37 Temperature 100.8 F H Pulse Rate 134 H 134 H Respiratory 28 H Rate Blood Pressure 181/98 184/96 O2 Sat by Pulse 99 99 Oximetry - General physical appearance Narrative Exam: Gen: Intubated. Not following commands (Just received sedation) ENT: ETT and NGT in place CV: S1, S2+. Tachy Resp: on CPAP mode on vent. Abd: soft, NT, ND. Wound vac in place with good seal and no leak. Scant serosang drainage Ext: +generalized edema. Dressings on b/l hands : corcoran with clear yellow urine Rectal: Rectal tube with liquid brown stool. - Labs 02/26/20 05:00 02/26/20 05:00 Diabetes panel 02/26/20 Range/Units 05:00 Sodium 137 (137-145) mmol/L Potassium 4.3 (3.6-5.0) mmol/L Chloride 98.3 (98-107) mmol/L Carbon Dioxide 23 (22-30) mmol/L BUN 74 H (7-17) mg/dL Creatinine 4.1 H (0.7-1.2) mg/dL Glucose 98 (65-100) mg/dL Calcium 8.5 (8.4-10.2) mg/dL Calcium panel 02/26/20 Range/Units 05:00 Calcium 8.5 (8.4-10.2) mg/dL Pituitary panel 02/26/20 Range/Units 05:00 Sodium 137 (137-145) mmol/L Potassium 4.3 (3.6-5.0) mmol/L Chloride 98.3 (98-107) mmol/L Carbon Dioxide 23 (22-30) mmol/L BUN 74 H (7-17) mg/dL Creatinine 4.1 H (0.7-1.2) mg/dL Glucose 98 (65-100) mg/dL Calcium 8.5 (8.4-10.2) mg/dL Adrenal panel 02/26/20 Range/Units 05:00 Sodium 137 (137-145) mmol/L Potassium 4.3 (3.6-5.0) mmol/L Chloride 98.3 (98-107) mmol/L Carbon Dioxide 23 (22-30) mmol/L BUN 74 H (7-17) mg/dL Creatinine 4.1 H (0.7-1.2) mg/dL Glucose 98 (65-100) mg/dL Calcium 8.5 (8.4-10.2) mg/dL
[2020-02-26] MEDS ORDERED: LORazepam 2 MG/ML VIAL IV PRN (10:45)
--- NOTE | 2020-02-26 10:46 | Progress Note ---
Assessment and Plan Atrial fibrillation, paroxysmal on Cardizem and amiodarone. echocardiogram showed normal left ventricular systolic function with ejection fraction 60 to 65%. Sepsis Ischemic bowel s/p surgery 01/2019 Respiratory failure Diabetes LITZY on CKD -initiated on dialysis Anemia s/p transfusion of PRBCs UTI We will increase diltiazem to 60mg. Continue amiodarone for suppression of paroxysmal atrial fibrillation. Subjective Date of service: 02/26/20 Principal diagnosis: Ischemic Bowel Interval history: Patient with eyes open but remains intubated. Sinus tachycardia on telemetry. Objective Vital Signs Temp Pulse Resp BP Pulse Ox Pulse Ox Pulse Ox 02/26/20 08:37 134 H 28 H 184/96 99 02/26/20 07:52 100.8 F H 02/26/20 07:16 134 H 181/98 99 02/26/20 06:00 128 H 23 164/81 98 02/26/20 05:45 131 H 22 169/88 98 02/26/20 05:37 121 H 159/80 02/26/20 05:30 126 H 18 103/44 99 02/26/20 05:15 75 19 103/44 99 02/26/20 05:00 75 21 110/45 99 02/26/20 04:45 72 19 109/44 100 02/26/20 04:30 78 19 110/44 99 02/26/20 04:15 80 18 106/43 100 02/26/20 04:00 99.7 F H 77 19 102/38 100 02/26/20 03:45 81 19 104/40 99 02/26/20 03:30 71 19 93/41 99 02/26/20 03:15 85 18 101/41 99 02/26/20 03:00 89 18 171/94 99 02/26/20 02:47 134 H 171/94 02/26/20 02:45 134 H 25 H 171/94 99 02/26/20 02:30 133 H 26 H 180/85 98 02/26/20 02:24 133 H 177/88 99 02/26/20 02:15 133 H 25 H 177/88 99 02/26/20 02:00 133 H 19 177/86 99 02/26/20 01:45 132 H 25 H 169/87 99 02/26/20 01:30 133 H 25 H 156/85 99 02/26/20 01:15 134 H 22 165/80 99 02/26/20 01:00 133 H 23 157/82 99 02/26/20 00:45 133 H 22 156/81 99 02/26/20 00:43 72 02/26/20 00:30 134 H 27 H 165/82 99 02/26/20 00:21 134 H 187/88 02/26/20 00:20 135 H 187/88 02/26/20 00:15 135 H 30 H 187/88 99 02/26/20 00:00 100.6 F H 133 H 29 H 157/82 99 02/25/20 23:45 134 H 27 H 185/93 98 02/25/20 23:30 134 H 24 191/97 98 02/25/20 23:15 133 H 25 H 195/102 98 02/25/20 23:00 134 H 26 H 175/93 99 02/25/20 22:45 133 H 30 H 180/96 98 02/25/20 22:30 133 H 27 H 187/91 98 02/25/20 22:15 132 H 28 H 182/95 98 02/25/20 22:00 131 H 23 179/99 98 02/25/20 21:45 130 H 26 H 179/80 97 02/25/20 21:30 127 H 23 176/86 98 02/25/20 21:16 104 H 22 153/76 99 02/25/20 21:00 88 21 124/42 99 02/25/20 20:46 87 20 124/42 99 02/25/20 20:42 86 20 128/64 99 02/25/20 20:30 86 22 110/41 100 02/25/20 20:16 73 21 110/41 100 02/25/20 20:00 99.1 F 88 21 124/42 99 02/25/20 19:45 68 19 106/41 99 02/25/20 19:30 66 18 106/42 99 02/25/20 19:15 71 21 98/40 99 02/25/20 19:06 99.3 F 132 H 26 H 165/91 99 99 02/25/20 19:00 87 20 95/44 99 02/25/20 18:27 132 H 165/91 02/25/20 18:00 136 H 26 H 161/85 99 02/25/20 17:45 131 H 153/75 02/25/20 17:30 109 H 27 H 156/85 99 02/25/20 17:15 122 H 160/87 02/25/20 17:00 108 H 26 H 151/62 99 02/25/20 16:45 108 H 151/62 02/25/20 16:30 100 H 21 135/61 99 02/25/20 16:15 111 H 142/56 02/25/20 16:00 99.3 F 98 H 25 H 156/80 99 02/25/20 15:47 134 H 156/80 02/25/20 15:45 133 H 156/80 02/25/20 15:40 127 H 142/82 96 02/25/20 15:30 132 H 24 147/82 98 02/25/20 15:22 28 H 02/25/20 15:16 131 H 153/75 02/25/20 15:15 131 H 153/75 02/25/20 15:00 127 H 15 167/80 98 99 99 02/25/20 14:30 126 H 28 H 172/85 98 02/25/20 14:00 123 H 26 H 169/92 97 02/25/20 13:30 93 H 17 199/103 95 02/25/20 13:00 92 H 20 107/47 99 02/25/20 12:30 69 18 103/46 99 02/25/20 12:15 126 H 103/46 95 02/25/20 12:00 82 17 118/67 99 02/25/20 11:47 88 02/25/20 11:33 98.4 F 02/25/20 11:30 88 16 123/66 98 02/25/20 11:28 94 H 131/70 02/25/20 11:27 125 H 199/111 02/25/20 11:00 126 H 23 157/86 98 - Physical Examination General: Other (intubated) HEENT: Positive: PERRL Cardiac: Positive: Tachycardia Abdomen: Positive: Other (post op) - Labs and Meds CBC 02/26/20 Range/Units 05:00 WBC 16.2 H (4.5-11.0) K/mm3 RBC 2.36 L (3.65-5.03) M/mm3 Hgb 7.4 L (10.1-14.3) gm/dl Hct 22.0 L (30.3-42.9) % Plt Count 141 (140-440) K/mm3 Lymph # 1.3 (1.2-5.4) K/mm3 Callahan # 1.4 H (0.0-0.8) K/mm3 Eos # 0.0 (0.0-0.4) K/mm3 Baso # 0.1 (0.0-0.1) K/mm3 Comprehensive Metabolic Panel 02/26/20 Range/Units 05:00 Sodium 137 (137-145) mmol/L Potassium 4.3 (3.6-5.0) mmol/L Chloride 98.3 (98-107) mmol/L Carbon Dioxide 23 (22-30) mmol/L BUN 74 H (7-17) mg/dL Creatinine 4.1 H (0.7-1.2) mg/dL Glucose 98 (65-100) mg/dL Calcium 8.5 (8.4-10.2) mg/dL
[2020-02-26] MEDS: FAMOTIDINE 20 MG TAB PO SCH (10:53)
[2020-02-26] MEDS: AMIODARONE 200 MG TAB PO SCH (10:54)
[2020-02-26] MEDS: SERTRALINE 50 MG TAB PO SCH (10:54)
--- NOTE | 2020-02-26 10:56 | Progress Note ---
Assessment and Plan 74 y/o female with abdominal pain, hypotension, now hypertensive with tachycardia and pain, worrisome for SBO and inflammation in colon from diverticula with worsening renal function. 02/26/2020: Patient is now bacteremic. She has several sources for the nidus. Will discuss with surgery, now that patient is off TPN and tolerating feeds, may try to remove PICC. I have asked nursing to find some peripherals prior to doing this. The other option would be to place a midline. ID has adjusted abx. Mental status is much better today. Purposeful eye movements, head turns and feet moving. Agree with cardiology in regards to increasing Dilt to 60. After the discussion with the granddaughter, will add some PRN benzo therapy to see if anxiety is playing a part. Continue PSV trials as tolerated. Goals would still be to extubate if possible without requiring trach. Per CM, family has agreed to an LTACH in [facility] to try to arrange admission as soon as possible. HD per renal, patient is still making urine and she does have a vascath which could be a source for infection as well. 02/25/2020: Long discussion with Granddaughter and Daughter over the phone to discuss LTACH. Currently they are not in favor.of LTACH. I tried my best to explain to them that this would be the next step in recovery for their family member. They are going to discuss amongst themselves and then let us know. I answered the questions they had to the best of my abilities. I also explained to them the current mental state, my thoughts and how we are trying to improve her mental state. They seem to understand this. We will continue daily PSV trials as tolerated. HD per renal. Overall prognosis is guarded. 02/24/2020: Continue PSV as tolerated. I have asked nursing to leave sedation off for as long as possible. I have also added PRN pushes of fentanyl with hopes of not having to restart the continuous infusion. I do not believe she will be ready for extubation today, but would like to work her respiratory muscles. Mental status is not exactly where we wont it to be. Heparin remains off and will discontinue from the MAR at this time. HD yesterday so likely none today. Will touch base with surgery and discuss with them but given the degree of illness and likely underlying lung disease as patient as still smoking, may need to consider LTACH if not able to wean in a timely fashion. Overall p rognosis remains guarded. 02/23/2020: HD today. Will hold on weaning sedation given HD happening and likely will be to weak for PSV. Remains on minimal vent support. Transfusion today, of 2 units of PRBC's. Heparin on hold will need to recheck levels today. Spoke with pharm who will help with insulin therapy to better level of sugars. Abx therapy per ID. Flagyl and Cefepime stopped yesterday. Guarded prognosis. Will continue to follow. 02/20/2020: Positive VTE but already on anticoagulation for Afib. HgB is 7. Not hypotensive. Does respond to lasix. Will discuss with renal but my personal preference would be to hold until less than 7 for transfusion. ID on board and placed on antifungal yesterday. Improvement in white count. Spoke with RT who will attempt PSV again today. If patient fails again today, will speak with renal about more volume removal. May need HD briefly. Surgery also starting trickle feeds today. Spoke with Pharm about increasing lantus given hyperglycemia. C. Diff PCR came back positive today. 02/19/2020: More awake today but failed PSV secondary to tachypnea. Makes sense given degree of acidosis. Await renal to eval today. Wonder if more lasix will be given or if she will need HD. Only on 30% with good sats, but compensating for metabolic acidosis which is why she failed PSV. Spoke with Granddaughter over the phone, renal please call as she would like an update on renal function and plans. Continue pain control with PRN therapy but no further continuous sedation. 02/18/2020: More awake but failing PSV trials. Spoke with renal and they did not request corcoran out either. Will replace and give lasix 80mg IV. Spoke with Granddaughter over the phone who is a nurse. Will attempt PSV later this afternoon. If passes, will likely extubate in the am. If not , will give an additional dose of lasix tonight. 02/17/2020: Start to wean sedation today with hopes of extubation. Pain control. IVF's per renal. Follow up any surgery recs. ID seen this am, reviewed their note and plan to treat for 7 days of abx, currently on day 2. 02/16/2020: Picc line placed yesterday. Going to OR today, plan around 1330. If able to close, could consider starting to wean as early as tomorrow but will touch base with surgery first. Patient HR in the 50's on drip so cards decreased. Discussed on rounds, but I asked nursing if any further issues to just stop the drip. Prognosis remains guarded. Trigylcerides not checked so will order stat. 02/15/2020: No new recs for today. Happy with current clinical state in regards to sedation, ventilation and oxygenation. Appreciate surgery and nephro help. follow up any new recs from them. Agree with picc line, will get tomorrow as I believe they (picc team) are not available on Sunday. Will check triglyceride level in the am. 1. Continue deep sedation and pain control. No plans on weaning or extubation until abdominal issues are done. 2. Continue corcoran 3. Follow up surgery recs. Greatly appreciate them and their help. Plan for return to OR on Sunday. 4. IV abx, ID following. 5. Cardiology has elected for dilt drip. Suggest titrating. Gave nurse parameters. 6. Follow up renal rec Guarded prognosis. CCT 31 minutes. Subjective Date of service: 02/26/20 Principal diagnosis: Ischemic Bowel Interval history: Actually more awake today ,compared to yesterday. Looked at me purposefully when I called her name. Did move her feet when I asked her too. She is still in flutter and not rate controlled. BP elevated too. Had HD on yesterday and required some extra doses of labetalol yesterday and last night. Also now with positive blood cultures. ID has added Vanc. Objective Vital Signs - 12hr 02/25/20 02/25/20 02/25/20 23:00 23:15 23:30 Temperature Pulse Rate 134 H 133 H 134 H Respiratory 26 H 25 H 24 Rate Blood Pressure 175/93 195/102 191/97 O2 Sat by Pulse 99 98 98 Oximetry 02/25/20 02/26/20 02/26/20 23:45 00:00 00:15 Temperature 100.6 F H Pulse Rate 134 H 133 H 135 H Respiratory 27 H 29 H 30 H Rate Blood Pressure 185/93 157/82 187/88 O2 Sat by Pulse 98 99 99 Oximetry 02/26/20 02/26/20 02/26/20 00:20 00:21 00:30 Temperature Pulse Rate 135 H 134 H 134 H Respiratory 27 H Rate Blood Pressure 187/88 187/88 165/82 O2 Sat by Pulse 99 Oximetry 02/26/20 02/26/20 02/26/20 00:43 00:45 01:00 Temperature Pulse Rate 72 133 H 133 H Respiratory 22 23 Rate Blood Pressure 156/81 157/82 O2 Sat by Pulse 99 99 Oximetry 02/26/20 02/26/20 02/26/20 01:15 01:30 01:45 Temperature Pulse Rate 134 H 133 H 132 H Respiratory 22 25 H 25 H Rate Blood Pressure 165/80 156/85 169/87 O2 Sat by Pulse 99 99 99 Oximetry 02/26/20 02/26/20 02/26/20 02:00 02:15 02:24 Temperature Pulse Rate 133 H 133 H 133 H Respiratory 19 25 H Rate Blood Pressure 177/86 177/88 177/88 O2 Sat by Pulse 99 99 99 Oximetry 02/26/20 02/26/20 02/26/20 02:30 02:45 02:47 Temperature Pulse Rate 133 H 134 H 134 H Respiratory 26 H 25 H Rate Blood Pressure 180/85 171/94 171/94 O2 Sat by Pulse 98 99 Oximetry 02/26/20 02/26/20 02/26/20 03:00 03:15 03:30 Temperature Pulse Rate 89 85 71 Respiratory 18 18 19 Rate Blood Pressure 171/94 101/41 93/41 O2 Sat by Pulse 99 99 99 Oximetry 02/26/20 02/26/20 02/26/20 03:45 04:00 04:15 Temperature 99.7 F H Pulse Rate 81 77 80 Respiratory 19 19 18 Rate Blood Pressure 104/40 102/38 106/43 O2 Sat by Pulse 99 100 100 Oximetry 02/26/20 02/26/20 02/26/20 04:30 04:45 05:00 Temperature Pulse Rate 78 72 75 Respiratory 19 19 21 Rate Blood Pressure 110/44 109/44 110/45 O2 Sat by Pulse 99 100 99 Oximetry 02/26/20 02/26/20 02/26/20 05:15 05:30 05:37 Temperature Pulse Rate 75 126 H 121 H Respiratory 19 18 Rate Blood Pressure 103/44 103/44 159/80 O2 Sat by Pulse 99 99 Oximetry 02/26/20 02/26/20 02/26/20 05:45 06:00 06:15 Temperature Pulse Rate 131 H 128 H 132 H Respiratory 22 23 27 H Rate Blood Pressure 169/88 164/81 170/88 O2 Sat by Pulse 98 98 99 Oximetry 02/26/20 02/26/20 02/26/20 06:30 06:45 07:00 Temperature Pulse Rate 132 H 133 H 133 H Respiratory 27 H 27 H 23 Rate Blood Pressure 180/90 171/88 172/90 O2 Sat by Pulse 99 99 98 Oximetry 02/26/20 02/26/20 02/26/20 07:15 07:16 07:30 Temperature Pulse Rate 133 H 134 H 135 H Respiratory 14 21 Rate Blood Pressure 181/98 181/98 175/95 O2 Sat by Pulse 98 99 99 Oximetry 02/26/20 02/26/20 02/26/20 07:45 07:52 08:00 Temperature 100.8 F H Pulse Rate 135 H 135 H Respiratory 20 16 Rate Blood Pressure 190/92 190/92 O2 Sat by Pulse 98 98 Oximetry 02/26/20 02/26/20 02/26/20 08:15 08:30 08:37 Temperature Pulse Rate 136 H 136 H 134 H Respiratory 26 H 23 28 H Rate Blood Pressure 186/95 184/96 184/96 O2 Sat by Pulse 99 98 99 Oximetry 02/26/20 02/26/20 02/26/20 08:45 09:00 09:15 Temperature Pulse Rate 135 H 136 H 136 H Respiratory 25 H 29 H 27 H Rate Blood Pressure 182/90 183/94 180/94 O2 Sat by Pulse 99 98 99 Oximetry 02/26/20 02/26/20 02/26/20 09:30 09:45 10:00 Temperature Pulse Rate 137 H 136 H 135 H Respiratory 22 28 H 34 H Rate Blood Pressure 170/94 184/94 174/93 O2 Sat by Pulse 99 99 99 Oximetry 02/26/20 02/26/20 02/26/20 10:15 10:30 10:45 Temperature Pulse Rate 137 H 137 H 137 H Respiratory 30 H 29 H 24 Rate Blood Pressure 197/99 193/101 178/91 O2 Sat by Pulse 99 99 98 Oximetry Constitutional: no acute distress, other (on vent intubated and sedated) Eyes: non-icteric ENT: other (orally intubated ) Effort: normal Ascultation: Bilateral: clear Percussion: Bilateral: not dull Cardiovascular: irregular rhythm (but rate controlled) Gastrointestinal: other (post surgical changes) Integumentary: normal Extremities: edema Neurologic: unable to assess (on vent) CBC and BMP: 02/26/20 05:00 02/26/20 05:00 ABG, PT/INR, D-dimer: ABG ABG pH 7.318 pH Units (7.350-7.450) L 02/21/20 04:16 ABG pCO2 42.7 mm Hg 02/21/20 04:16 ABG pO2 100.0 mm Hg (80.0-90.0) H 02/21/20 04:16 ABG O2 Saturation 97.2 % (95.0-99.0) 02/21/20 04:16 PT/INR, D-dimer PT 16.9 Sec. (12.2-14.9) H 02/13/20 20:10 INR 1.41 (0.87-1.13) H 02/13/20 20:10 Abnormal lab findings: Abnormal Labs 02/11/20 02/11/20 02/11/20 15:27 15:27 15:27 WBC 22.5 H RBC Hgb Hct MCHC RDW Plt Count Lymph % (Auto) [place] % (Auto) [place] # Seg Neutrophils % Seg Neuts % (Manual) 90.0 H Lymphocytes % (Manual) 4.0 L Monocytes % (Manual) Nucleated RBC % Seg Neutrophils # Seg Neutrophils # Man 20.3 H Lymphocytes # (Manual) 0.9 L Monocytes # (Manual) 1.1 H Eosinophils # (Manual) PT INR APTT 23.3 L Heparin Anti-Xa Level ABG pH ABG pO2 ABG HCO3 ABG O2 Saturation ABG Base Excess ABG Hemoglobin Oxyhemoglobin Sodium 132 L Potassium Chloride 96.0 L Carbon Dioxide 16 L BUN 59 H Creatinine 3.0 H Glucose 487 H POC Glucose Calcium Phosphorus Magnesium Alkaline Phosphatase 142 H Total Protein Albumin Triglycerides Lipase 86 H Urine WBC (Auto) Urine Creatinine Urine Total Protein Crossmatch 02/12/20 02/12/20 02/12/20 04:58 04:58 Unknown WBC 30.0 H RBC Hgb Hct MCHC RDW Plt Count Lymph % (Auto) [place] % (Auto) [place] # Seg Neutrophils % Seg Neuts % (Manual) 96.0 H Lymphocytes % (Manual) 1.0 L Monocytes % (Manual) Nucleated RBC % Seg Neutrophils # Seg Neutrophils # Man 28.8 H Lymphocytes # (Manual) 0.3 L Monocytes # (Manual) 0.9 H Eosinophils # (Manual) PT INR APTT Heparin Anti-Xa Level ABG pH ABG pO2 ABG HCO3 ABG O2 Saturation ABG Base Excess ABG Hemoglobin Oxyhemoglobin Sodium Potassium Chloride Carbon Dioxide 15 L BUN 59 H Creatinine 3.0 H Glucose 477 H POC Glucose Calcium Phosphorus Magnesium Alkaline Phosphatase Total Protein Albumin 3.5 L Triglycerides Lipase Urine WBC (Auto) Urine Creatinine 35.3 H Urine Total Protein 796 H Crossmatch 02/13/20 02/13/20 02/13/20 05:43 05:43 13:24 WBC 38.2 H RBC Hgb Hct 43.6 H MCHC RDW Plt Count Lymph % (Auto) [place] % (Auto) [place] # Seg Neutrophils % Seg Neuts % (Manual) 91.0 H Lymphocytes % (Manual) 4.0 L Monocytes % (Manual) Nucleated RBC % Seg Neutrophils # Seg Neutrophils # Man 34.8 H Lymphocytes # (Manual) Monocytes # (Manual) 1.1 H Eosinophils # (Manual) PT INR APTT Heparin Anti-Xa Level ABG pH ABG pO2 ABG HCO3 ABG O2 Saturation ABG Base Excess ABG Hemoglobin Oxyhemoglobin Sodium 136 L Potassium Chloride Carbon Dioxide 11 L BUN 71 H Creatinine 4.0 H Glucose 343 H POC Glucose 337 H Calcium Phosphorus Magnesium Alkaline Phosphatase Total Protein Albumin Triglycerides Lipase Urine WBC (Auto) Urine Creatinine Urine Total Protein Crossmatch 02/13/20 02/13/20 02/13/20 16:49 16:50 17:30 WBC RBC Hgb Hct MCHC RDW Plt Count Lymph % (Auto) [place] % (Auto) [place] # Seg Neutrophils % Seg Neuts % (Manual) Lymphocytes % (Manual) Monocytes % (Manual) Nucleated RBC % Seg Neutrophils # Seg Neutrophils # Man Lymphocytes # (Manual) Monocytes # (Manual) Eosinophils # (Manual) PT INR APTT Heparin Anti-Xa Level ABG pH 7.226 L ABG pO2 77.9 L ABG HCO3 16.4 L ABG O2 Saturation ABG Base Excess -10.5 L ABG Hemoglobin 11.7 L Oxyhemoglobin 92.8 L Sodium Potassium Chloride Carbon Dioxide BUN Creatinine Glucose POC Glucose 272 H Calcium Phosphorus Magnesium Alkaline Phosphatase Total Protein Albumin Triglycerides Lipase Urine WBC (Auto) Urine Creatinine Urine Total Protein Crossmatch See Detail 02/13/20 02/13/20 02/13/20 20:10 20:42 22:08 WBC RBC Hgb Hct MCHC RDW Plt Count Lymph % (Auto) [place] % (Auto) [place] # Seg Neutrophils % Seg Neuts % (Manual) Lymphocytes % (Manual) Monocytes % (Manual) Nucleated RBC % Seg Neutrophils # Seg Neutrophils # Man Lymphocytes # (Manual) Monocytes # (Manual) Eosinophils # (Manual) PT 16.9 H INR 1.41 H APTT Heparin Anti-Xa Level ABG pH 7.158 L* ABG pO2 ABG HCO3 18.6 L ABG O2 Saturation ABG Base Excess -10.2 L ABG Hemoglobin 11.9 L Oxyhemoglobin 93.1 L Sodium Potassium Chloride Carbon Dioxide BUN Creatinine Glucose POC Glucose 171 H Calcium Phosphorus Magnesium Alkaline Phosphatase Total Protein Albumin Triglycerides Lipase Urine WBC (Auto) Urine Creatinine Urine Total Protein Crossmatch 02/14/20 02/14/20 02/14/20 00:22 03:45 04:29 WBC RBC Hgb Hct MCHC RDW Plt Count Lymph % (Auto) [place] % (Auto) [place] # Seg Neutrophils % Seg Neuts % (Manual) Lymphocytes % (Manual) Monocytes % (Manual) Nucleated RBC % Seg Neutrophils # Seg Neutrophils # Man Lymphocytes # (Manual) Monocytes # (Manual) Eosinophils # (Manual) PT INR APTT Heparin Anti-Xa Level ABG pH 7.193 L* ABG pO2 ABG HCO3 16.4 L ABG O2 Saturation ABG Base Excess -11.2 L ABG Hemoglobin 10.2 L Oxyhemoglobin 94.3 L Sodium Potassium Chloride 108.5 H Carbon Dioxide 16 L BUN 73 H Creatinine 4.3 H Glucose 167 H POC Glucose 199 H Calcium 8.0 L Phosphorus Magnesium Alkaline Phosphatase Total Protein Albumin Triglycerides Lipase Urine WBC (Auto) Urine Creatinine Urine Total Protein Crossmatch 02/14/20 02/14/20 02/14/20 04:29 05:26 12:11 WBC 14.4 H RBC Hgb Hct MCHC RDW 15.3 H Plt Count Lymph % (Auto) [place] % (Auto) [place] # Seg Neutrophils % Seg Neuts % (Manual) 88.0 H Lymphocytes % (Manual) 6.0 L Monocytes % (Manual) Nucleated RBC % Seg Neutrophils # Seg Neutrophils # Man 12.7 H Lymphocytes # (Manual) 0.9 L Monocytes # (Manual) Eosinophils # (Manual) PT INR APTT Heparin Anti-Xa Level ABG pH ABG pO2 ABG HCO3 ABG O2 Saturation ABG Base Excess ABG Hemoglobin Oxyhemoglobin Sodium Potassium Chloride Carbon Dioxide BUN Creatinine Glucose POC Glucose 177 H 160 H Calcium Phosphorus Magnesium Alkaline Phosphatase Total Protein Albumin Triglycerides Lipase Urine WBC (Auto) Urine Creatinine Urine Total Protein Crossmatch 02/14/20 02/14/20 02/15/20 18:34 23:18 03:19 WBC RBC Hgb Hct MCHC RDW Plt Count Lymph % (Auto) [place] % (Auto) [place] # Seg Neutrophils % Seg Neuts % (Manual) Lymphocytes % (Manual) Monocytes % (Manual) Nucleated RBC % Seg Neutrophils # Seg Neutrophils # Man Lymphocytes # (Manual) Monocytes # (Manual) Eosinophils # (Manual) PT INR APTT Heparin Anti-Xa Level ABG pH 7.246 L ABG pO2 ABG HCO3 13.7 L ABG O2 Saturation ABG Base Excess -12.5 L ABG Hemoglobin 8.4 L Oxyhemoglobin 94.6 L Sodium Potassium Chloride Carbon Dioxide BUN Creatinine Glucose POC Glucose 135 H 138 H Calcium Phosphorus Magnesium Alkaline Phosphatase Total Protein Albumin Triglycerides Lipase Urine WBC (Auto) Urine Creatinine Urine Total Protein Crossmatch 02/15/20 02/15/20 02/15/20 04:28 04:28 05:35 WBC RBC 2.88 L Hgb 8.6 L Hct 25.4 L D MCHC RDW 15.6 H Plt Count Lymph % (Auto) [place] % (Auto) [place] # Seg Neutrophils % Seg Neuts % (Manual) Lymphocytes % (Manual) Monocytes % (Manual) Nucleated RBC % Seg Neutrophils # Seg Neutrophils # Man Lymphocytes # (Manual) Monocytes # (Manual) Eosinophils # (Manual) PT INR APTT Heparin Anti-Xa Level ABG pH ABG pO2 ABG HCO3 ABG O2 Saturation ABG Base Excess ABG Hemoglobin Oxyhemoglobin Sodium Potassium Chloride Carbon Dioxide 12 L BUN 72 H Creatinine 4.7 H Glucose 147 H POC Glucose 181 H Calcium 7.9 L Phosphorus Magnesium Alkaline Phosphatase Total Protein Albumin Triglycerides Lipase Urine WBC (Auto) Urine Creatinine Urine Total Protein Crossmatch 02/15/20 02/15/20 02/15/20 12:07 17:50 23:18 WBC RBC Hgb Hct MCHC RDW Plt Count Lymph % (Auto) [place] % (Auto) [place] # Seg Neutrophils % Seg Neuts % (Manual) Lymphocytes % (Manual) Monocytes % (Manual) Nucleated RBC % Seg Neutrophils # Seg Neutrophils # Man Lymphocytes # (Manual) Monocytes # (Manual) Eosinophils # (Manual) PT INR APTT Heparin Anti-Xa Level ABG pH ABG pO2 ABG HCO3 ABG O2 Saturation ABG Base Excess ABG Hemoglobin Oxyhemoglobin Sodium Potassium Chloride Carbon Dioxide BUN Creatinine Glucose POC Glucose 136 H 177 H 284 H Calcium Phosphorus Magnesium Alkaline Phosphatase Total Protein Albumin Triglycerides Lipase Urine WBC (Auto) Urine Creatinine Urine Total Protein Crossmatch 02/16/20 02/16/20 02/16/20 04:20 05:24 05:29 WBC RBC Hgb Hct MCHC RDW Plt Count Lymph % (Auto) [place] % (Auto) [place] # Seg Neutrophils % Seg Neuts % (Manual) Lymphocytes % (Manual) Monocytes % (Manual) Nucleated RBC % Seg Neutrophils # Seg Neutrophils # Man Lymphocytes # (Manual) Monocytes # (Manual) Eosinophils # (Manual) PT INR APTT Heparin Anti-Xa Level ABG pH ABG pO2 77.4 L ABG HCO3 ABG O2 Saturation ABG Base Excess -4.7 L ABG Hemoglobin 5.0 L Oxyhemoglobin Sodium 135 L Potassium 3.0 L D Chloride 90.7 L Carbon Dioxide BUN 64 H Creatinine 4.7 H Glucose 491 H POC Glucose 282 H Calcium 7.2 L Phosphorus Magnesium Alkaline Phosphatase Total Protein Albumin Triglycerides Lipase Urine WBC (Auto) Urine Creatinine Urine Total Protein Crossmatch 02/16/20 02/16/20 02/16/20 05:29 05:29 08:39 WBC RBC 2.31 L Hgb 7.2 L Hct 20.2 L MCHC 36 H RDW 15.3 H Plt Count 115 L Lymph % (Auto) [place] % (Auto) [place] # Seg Neutrophils % Seg Neuts % (Manual) Lymphocytes % (Manual) Monocytes % (Manual) Nucleated RBC % Seg Neutrophils # Seg Neutrophils # Man Lymphocytes # (Manual) Monocytes # (Manual) Eosinophils # (Manual) PT INR APTT Heparin Anti-Xa Level ABG pH ABG pO2 ABG HCO3 ABG O2 Saturation ABG Base Excess ABG Hemoglobin Oxyhemoglobin Sodium Potassium Chloride Carbon Dioxide BUN Creatinine Glucose POC Glucose Calcium Phosphorus Magnesium Alkaline Phosphatase Total Protein Albumin Triglycerides 716 H Lipase Urine WBC (Auto) Urine Creatinine Urine Total Protein Crossmatch See Detail 02/16/20 02/16/20 02/17/20 12:27 19:04 00:02 WBC RBC Hgb Hct MCHC RDW Plt Count Lymph % (Auto) [place] % (Auto) [place] # Seg Neutrophils % Seg Neuts % (Manual) Lymphocytes % (Manual) Monocytes % (Manual) Nucleated RBC % Seg Neutrophils # Seg Neutrophils # Man Lymphocytes # (Manual) Monocytes # (Manual) Eosinophils # (Manual) PT INR APTT Heparin Anti-Xa Level ABG pH ABG pO2 ABG HCO3 ABG O2 Saturation ABG Base Excess ABG Hemoglobin Oxyhemoglobin Sodium Potassium Chloride Carbon Dioxide BUN Creatinine Glucose POC Glucose 314 H 203 H 202 H Calcium Phosphorus Magnesium Alkaline Phosphatase Total Protein Albumin Triglycerides Lipase Urine WBC (Auto) Urine Creatinine Urine Total Protein Crossmatch 02/17/20 02/17/20 02/17/20 03:45 03:45 03:45 WBC RBC Hgb 9.9 L Hct 30.1 L D MCHC RDW Plt Count Lymph % (Auto) [place] % (Auto) [place] # Seg Neutrophils % Seg Neuts % (Manual) Lymphocytes % (Manual) Monocytes % (Manual) Nucleated RBC % Seg Neutrophils # Seg Neutrophils # Man Lymphocytes # (Manual) Monocytes # (Manual) Eosinophils # (Manual) PT INR APTT Heparin Anti-Xa Level ABG pH ABG pO2 ABG HCO3 ABG O2 Saturation ABG Base Excess ABG Hemoglobin Oxyhemoglobin Sodium Potassium Chloride Carbon Dioxide 21 L BUN 63 H Creatinine 5.2 H Glucose 134 H POC Glucose Calcium 7.6 L Phosphorus Magnesium Alkaline Phosphatase Total Protein Albumin Triglycerides 238 H Lipase Urine WBC (Auto) Urine Creatinine Urine Total Protein Crossmatch 02/17/20 02/17/20 02/17/20 04:06 05:21 12:08 WBC RBC Hgb Hct MCHC RDW Plt Count Lymph % (Auto) [place] % (Auto) [place] # Seg Neutrophils % Seg Neuts % (Manual) Lymphocytes % (Manual) Monocytes % (Manual) Nucleated RBC % Seg Neutrophils # Seg Neutrophils # Man Lymphocytes # (Manual) Monocytes # (Manual) Eosinophils # (Manual) PT INR APTT Heparin Anti-Xa Level ABG pH 7.288 L ABG pO2 ABG HCO3 ABG O2 Saturation ABG Base Excess -4.9 L ABG Hemoglobin 9.7 L Oxyhemoglobin 94.0 L Sodium Potassium Chloride Carbon Dioxide BUN Creatinine Glucose POC Glucose 132 H 141 H Calcium Phosphorus Magnesium Alkaline Phosphatase Total Protein Albumin Triglycerides Lipase Urine WBC (Auto) Urine Creatinine Urine Total Protein Crossmatch 02/17/20 02/17/20 02/17/20 18:07 19:54 23:13 WBC RBC Hgb Hct MCHC RDW Plt Count Lymph % (Auto) [place] % (Auto) [place] # Seg Neutrophils % Seg Neuts % (Manual) Lymphocytes % (Manual) Monocytes % (Manual) Nucleated RBC % Seg Neutrophils # Seg Neutrophils # Man Lymphocytes # (Manual) Monocytes # (Manual) Eosinophils # (Manual) PT INR APTT Heparin Anti-Xa Level < 0.10 L ABG pH ABG pO2 ABG HCO3 ABG O2 Saturation ABG Base Excess ABG Hemoglobin Oxyhemoglobin Sodium Potassium Chloride Carbon Dioxide BUN Creatinine Glucose POC Glucose 189 H 167 H Calcium Phosphorus Magnesium Alkaline Phosphatase Total Protein Albumin Triglycerides Lipase Urine WBC (Auto) Urine Creatinine Urine Total Protein Crossmatch 02/18/20 02/18/20 02/18/20 03:41 04:37 05:44 WBC RBC Hgb Hct MCHC RDW Plt Count Lymph % (Auto) [place] % (Auto) [place] # Seg Neutrophils % Seg Neuts % (Manual) Lymphocytes % (Manual) Monocytes % (Manual) Nucleated RBC % Seg Neutrophils # Seg Neutrophils # Man Lymphocytes # (Manual) Monocytes # (Manual) Eosinophils # (Manual) PT INR APTT Heparin Anti-Xa Level ABG pH 7.281 L ABG pO2 74.5 L ABG HCO3 16.2 L ABG O2 Saturation 94.3 L ABG Base Excess -9.7 L ABG Hemoglobin 9.8 L Oxyhemoglobin 92.1 L Sodium Potassium Chloride Carbon Dioxide 15 L BUN 65 H Creatinine 5.1 H Glucose 117 H POC Glucose 112 H Calcium 7.7 L Phosphorus Magnesium Alkaline Phosphatase Total Protein Albumin Triglycerides Lipase Urine WBC (Auto) Urine Creatinine Urine Total Protein Crossmatch 02/18/20 02/18/20 02/18/20 09:00 09:00 12:41 WBC 14.9 H RBC 2.99 L Hgb 8.8 L Hct 27.1 L MCHC RDW 15.8 H Plt Count 131 L Lymph % (Auto) [place] % (Auto) [place] # Seg Neutrophils % Seg Neuts % (Manual) Lymphocytes % (Manual) Monocytes % (Manual) Nucleated RBC % Seg Neutrophils # Seg Neutrophils # Man Lymphocytes # (Manual) Monocytes # (Manual) Eosinophils # (Manual) PT INR APTT Heparin Anti-Xa Level ABG pH ABG pO2 ABG HCO3 ABG O2 Saturation ABG Base Excess ABG Hemoglobin Oxyhemoglobin Sodium Potassium Chloride Carbon Dioxide BUN Creatinine Glucose POC Glucose 140 H Calcium Phosphorus 6.40 H Magnesium 1.30 L Alkaline Phosphatase Total Protein Albumin Triglycerides Lipase Urine WBC (Auto) Urine Creatinine Urine Total Protein Crossmatch 02/18/20 02/18/20 02/19/20 17:58 23:06 03:50 WBC RBC Hgb Hct MCHC RDW Plt Count Lymph % (Auto) [facility] % (Auto) [place] # Seg Neutrophils % Seg Neuts % (Manual) Lymphocytes % (Manual) Monocytes % (Manual) Nucleated RBC % Seg Neutrophils # Seg Neutrophils # Man Lymphocytes # (Manual) Monocytes # (Manual) Eosinophils # (Manual) PT INR APTT Heparin Anti-Xa Level ABG pH 7.243 L ABG pO2 75.3 L ABG HCO3 11.8 L ABG O2 Saturation 94.0 L ABG Base Excess -14.1 L ABG Hemoglobin 9.6 L Oxyhemoglobin 91.8 L Sodium Potassium Chloride Carbon Dioxide BUN Creatinine Glucose POC Glucose 141 H 212 H Calcium Phosphorus Magnesium Alkaline Phosphatase Total Protein Albumin Triglycerides Lipase Urine WBC (Auto) Urine Creatinine Urine Total Protein Crossmatch 02/19/20 02/19/20 02/19/20 04:30 04:30 04:30 WBC 19.8 H RBC 3.19 L Hgb 9.1 L Hct 28.9 L MCHC RDW 15.5 H Plt Count Lymph % (Auto) [place] % (Auto) [place] # Seg Neutrophils % Seg Neuts % (Manual) 86.0 H Lymphocytes % (Manual) 5.0 L Monocytes % (Manual) Nucleated RBC % Seg Neutrophils # Seg Neutrophils # Man 17.0 H Lymphocytes # (Manual) 1.0 L Monocytes # (Manual) 1.4 H Eosinophils # (Manual) PT INR APTT Heparin Anti-Xa Level ABG pH ABG pO2 ABG HCO3 ABG O2 Saturation ABG Base Excess ABG Hemoglobin Oxyhemoglobin Sodium 136 L Potassium Chloride Carbon Dioxide 12 L BUN 76 H Creatinine 5.2 H Glucose 228 H POC Glucose Calcium Phosphorus 8.00 H D Magnesium Alkaline Phosphatase Total Protein Albumin Triglycerides Lipase Urine WBC (Auto) Urine Creatinine Urine Total Protein Crossmatch 02/19/20 02/19/20 02/19/20 06:19 11:37 14:00 WBC RBC Hgb Hct MCHC RDW Plt Count Lymph % (Auto) [place] % (Auto) [place] # Seg Neutrophils % Seg Neuts % (Manual) Lymphocytes % (Manual) Monocytes % (Manual) Nucleated RBC % Seg Neutrophils # Seg Neutrophils # Man Lymphocytes # (Manual) Monocytes # (Manual) Eosinophils # (Manual) PT INR APTT Heparin Anti-Xa Level ABG pH ABG pO2 ABG HCO3 ABG O2 Saturation ABG Base Excess ABG Hemoglobin Oxyhemoglobin Sodium 132 L Potassium Chloride 95.4 L Carbon Dioxide 15 L BUN 75 H Creatinine 5.2 H Glucose 526 H* POC Glucose 253 H 288 H Calcium 7.6 L Phosphorus Magnesium Alkaline Phosphatase Total Protein Albumin Triglycerides Lipase Urine WBC (Auto) Urine Creatinine Urine Total Protein Crossmatch 02/19/20 02/19/20 02/19/20 14:00 15:07 17:40 WBC RBC Hgb Hct MCHC RDW Plt Count Lymph % (Auto) [place] % (Auto) [place] # Seg Neutrophils % Seg Neuts % (Manual) Lymphocytes % (Manual) Monocytes % (Manual) Nucleated RBC % Seg Neutrophils # Seg Neutrophils # Man Lymphocytes # (Manual) Monocytes # (Manual) Eosinophils # (Manual) PT INR APTT Heparin Anti-Xa Level ABG pH ABG pO2 ABG HCO3 ABG O2 Saturation ABG Base Excess ABG Hemoglobin Oxyhemoglobin Sodium Potassium Chloride Carbon Dioxide BUN Creatinine Glucose POC Glucose 324 H 328 H Calcium Phosphorus Magnesium Alkaline Phosphatase Total Protein Albumin Triglycerides Lipase Urine WBC (Auto) 166.0 H Urine Creatinine Urine Total Protein Crossmatch 02/19/20 02/20/20 02/20/20 23:40 03:15 03:15 WBC RBC Hgb Hct MCHC RDW Plt Count Lymph % (Auto) [place] % (Auto) [place] # Seg Neutrophils % Seg Neuts % (Manual) Lymphocytes % (Manual) Monocytes % (Manual) Nucleated RBC % Seg Neutrophils # Seg Neutrophils # Man Lymphocytes # (Manual) Monocytes # (Manual) Eosinophils # (Manual) PT INR APTT Heparin Anti-Xa Level 0.19 L ABG pH ABG pO2 ABG HCO3 ABG O2 Saturation ABG Base Excess ABG Hemoglobin Oxyhemoglobin Sodium Potassium 3.5 L D Chloride Carbon Dioxide 19 L BUN 85 H Creatinine 5.4 H Glucose 353 H POC Glucose 390 H Calcium 8.3 L Phosphorus 6.50 H Magnesium Alkaline Phosphatase Total Protein Albumin Triglycerides Lipase Urine WBC (Auto) Urine Creatinine Urine Total Protein Crossmatch 02/20/20 02/20/20 02/20/20 03:15 04:29 05:21 WBC 13.6 H RBC 2.43 L Hgb 7.1 L Hct 21.3 L D MCHC RDW Plt Count 136 L Lymph % (Auto) [place] % (Auto) [place] # Seg Neutrophils % Seg Neuts % (Manual) 81.0 H Lymphocytes % (Manual) 5.0 L Monocytes % (Manual) Nucleated RBC % Seg Neutrophils # Seg Neutrophils # Man 11.0 H Lymphocytes # (Manual) 0.7 L Monocytes # (Manual) Eosinophils # (Manual) PT INR APTT Heparin Anti-Xa Level ABG pH ABG pO2 ABG HCO3 ABG O2 Saturation ABG Base Excess -3.8 L ABG Hemoglobin 6.0 L Oxyhemoglobin 94.6 L Sodium Potassium Chloride Carbon Dioxide BUN Creatinine Glucose POC Glucose 400 H Calcium Phosphorus Magnesium Alkaline Phosphatase Total Protein Albumin Triglycerides Lipase Urine WBC (Auto) Urine Creatinine Urine Total Protein Crossmatch 02/20/20 02/20/20 02/20/20 11:52 18:30 20:02 WBC RBC Hgb Hct MCHC RDW Plt Count Lymph % (Auto) [place] % (Auto) [place] # Seg Neutrophils % Seg Neuts % (Manual) Lymphocytes % (Manual) Monocytes % (Manual) Nucleated RBC % Seg Neutrophils # Seg Neutrophils # Man Lymphocytes # (Manual) Monocytes # (Manual) Eosinophils # (Manual) PT INR APTT Heparin Anti-Xa Level ABG pH ABG pO2 ABG HCO3 ABG O2 Saturation ABG Base Excess ABG Hemoglobin Oxyhemoglobin Sodium Potassium Chloride Carbon Dioxide BUN Creatinine Glucose 584 H* POC Glucose 348 H 422 H Calcium Phosphorus Magnesium Alkaline Phosphatase Total Protein Albumin Triglycerides Lipase Urine WBC (Auto) Urine Creatinine Urine Total Protein Crossmatch 02/20/20 02/21/20 02/21/20 23:31 03:53 03:53 WBC RBC Hgb 5.9 L* Hct 18.5 L* MCHC RDW Plt Count Lymph % (Auto) [place] % (Auto) [place] # Seg Neutrophils % Seg Neuts % (Manual) Lymphocytes % (Manual) Monocytes % (Manual) Nucleated RBC % Seg Neutrophils # Seg Neutrophils # Man Lymphocytes # (Manual) Monocytes # (Manual) Eosinophils # (Manual) PT INR APTT Heparin Anti-Xa Level 1.13 H ABG pH ABG pO2 ABG HCO3 ABG O2 Saturation ABG Base Excess ABG Hemoglobin Oxyhemoglobin Sodium Potassium Chloride Carbon Dioxide BUN Creatinine Glucose POC Glucose 341 H Calcium Phosphorus Magnesium Alkaline Phosphatase Total Protein Albumin Triglycerides Lipase Urine WBC (Auto) Urine Creatinine Urine Total Protein Crossmatch 02/21/20 02/21/20 02/21/20 03:53 04:16 06:00 WBC RBC Hgb Hct MCHC RDW Plt Count Lymph % (Auto) [place] % (Auto) [place] # Seg Neutrophils % Seg Neuts % (Manual) Lymphocytes % (Manual) Monocytes % (Manual) Nucleated RBC % Seg Neutrophils # Seg Neutrophils # Man Lymphocytes # (Manual) Monocytes # (Manual) Eosinophils # (Manual) PT INR APTT Heparin Anti-Xa Level ABG pH 7.318 L ABG pO2 100.0 H ABG HCO3 ABG O2 Saturation ABG Base Excess -4.4 L ABG Hemoglobin 9.1 L Oxyhemoglobin Sodium 136 L Potassium Chloride 97.5 L Carbon Dioxide 21 L BUN 97 H Creatinine 5.3 H Glucose 246 H POC Glucose Calcium 8.1 L Phosphorus Magnesium Alkaline Phosphatase Total Protein Albumin Triglycerides Lipase Urine WBC (Auto) Urine Creatinine Urine Total Protein Crossmatch See Detail 02/21/20 02/21/20 02/21/20 06:32 11:45 17:40 WBC RBC Hgb Hct MCHC RDW Plt Count Lymph % (Auto) [place] % (Auto) [place] # Seg Neutrophils % Seg Neuts % (Manual) Lymphocytes % (Manual) Monocytes % (Manual) Nucleated RBC % Seg Neutrophils # Seg Neutrophils # Man Lymphocytes # (Manual) Monocytes # (Manual) Eosinophils # (Manual) PT INR APTT Heparin Anti-Xa Level ABG pH ABG pO2 ABG HCO3 ABG O2 Saturation ABG Base Excess ABG Hemoglobin Oxyhemoglobin Sodium Potassium Chloride Carbon Dioxide BUN Creatinine Glucose POC Glucose 317 H 389 H 387 H Calcium Phosphorus Magnesium Alkaline Phosphatase Total Protein Albumin Triglycerides Lipase Urine WBC (Auto) Urine Creatinine Urine Total Protein Crossmatch 02/21/20 02/22/20 02/22/20 23:37 03:16 03:16 WBC 22.8 H RBC 2.49 L Hgb 7.4 L Hct 22.7 L MCHC RDW 15.6 H Plt Count Lymph % (Auto) [place] % (Auto) [place] # Seg Neutrophils % Seg Neuts % (Manual) 74.0 H Lymphocytes % (Manual) 8.5 L Monocytes % (Manual) 13.5 H Nucleated RBC % 2.5 H Seg Neutrophils # Seg Neutrophils # Man 16.9 H Lymphocytes # (Manual) Monocytes # (Manual) 3.1 H Eosinophils # (Manual) 0.5 H PT INR APTT Heparin Anti-Xa Level 0.27 L ABG pH ABG pO2 ABG HCO3 ABG O2 Saturation ABG Base Excess ABG Hemoglobin Oxyhemoglobin Sodium Potassium Chloride Carbon Dioxide BUN Creatinine Glucose POC Glucose 297 H Calcium Phosphorus Magnesium Alkaline Phosphatase Total Protein Albumin Triglycerides Lipase Urine WBC (Auto) Urine Creatinine Urine Total Protein Crossmatch 02/22/20 02/22/20 02/22/20 03:16 05:16 11:50 WBC RBC Hgb Hct MCHC RDW Plt Count Lymph % (Auto) [place] % (Auto) [place] # Seg Neutrophils % Seg Neuts % (Manual) Lymphocytes % (Manual) Monocytes % (Manual) Nucleated RBC % Seg Neutrophils # Seg Neutrophils # Man Lymphocytes # (Manual) Monocytes # (Manual) Eosinophils # (Manual) PT INR APTT Heparin Anti-Xa Level ABG pH ABG pO2 ABG HCO3 ABG O2 Saturation ABG Base Excess ABG Hemoglobin Oxyhemoglobin Sodium 135 L Potassium Chloride 95.2 L Carbon Dioxide BUN 83 H Creatinine 4.3 H Glucose 264 H POC Glucose 321 H 351 H Calcium 8.1 L Phosphorus 4.60 H Magnesium Alkaline Phosphatase Total Protein Albumin Triglycerides Lipase Urine WBC (Auto) Urine Creatinine Urine Total Protein Crossmatch 02/22/20 02/23/20 02/23/20 17:26 00:04 02:55 WBC 25.6 H RBC 1.86 L Hgb 5.7 L* Hct 17.3 L* MCHC RDW 16.0 H Plt Count Lymph % (Auto) [place] % (Auto) [place] # Seg Neutrophils % Seg Neuts % (Manual) 80.5 H Lymphocytes % (Manual) 9.5 L Monocytes % (Manual) Nucleated RBC % 1.0 H Seg Neutrophils # Seg Neutrophils # Man 20.6 H Lymphocytes # (Manual) Monocytes # (Manual) 1.5 H Eosinophils # (Manual) PT INR APTT Heparin Anti-Xa Level ABG pH ABG pO2 ABG HCO3 ABG O2 Saturation ABG Base Excess ABG Hemoglobin Oxyhemoglobin Sodium Potassium Chloride Carbon Dioxide BUN Creatinine Glucose POC Glucose 356 H 359 H Calcium Phosphorus Magnesium Alkaline Phosphatase Total Protein Albumin Triglycerides Lipase Urine WBC (Auto) Urine Creatinine Urine Total Protein Crossmatch 02/23/20 02/23/20 02/23/20 02:55 02:55 05:33 WBC RBC Hgb Hct MCHC RDW Plt Count Lymph % (Auto) [place] % (Auto) [place] # Seg Neutrophils % Seg Neuts % (Manual) Lymphocytes % (Manual) Monocytes % (Manual) Nucleated RBC % Seg Neutrophils # Seg Neutrophils # Man Lymphocytes # (Manual) Monocytes # (Manual) Eosinophils # (Manual) PT INR APTT Heparin Anti-Xa Level 0.15 L ABG pH ABG pO2 ABG HCO3 ABG O2 Saturation ABG Base Excess ABG Hemoglobin Oxyhemoglobin Sodium 130 L Potassium Chloride 92.8 L Carbon Dioxide BUN 94 H Creatinine 4.7 H Glucose 293 H POC Glucose 330 H Calcium Phosphorus Magnesium Alkaline Phosphatase Total Protein Albumin Triglycerides Lipase Urine WBC (Auto) Urine Creatinine Urine Total Protein Crossmatch 02/23/20 02/23/20 02/23/20 12:03 13:13 18:34 WBC 24.2 H RBC 2.61 L Hgb 8.3 L Hct 24.4 L D MCHC RDW Plt Count 125 L Lymph % (Auto) [facility] % (Auto) [place] # Seg Neutrophils % Seg Neuts % (Manual) Lymphocytes % (Manual) Monocytes % (Manual) Nucleated RBC % Seg Neutrophils # Seg Neutrophils # Man Lymphocytes # (Manual) Monocytes # (Manual) Eosinophils # (Manual) PT INR APTT Heparin Anti-Xa Level ABG pH ABG pO2 ABG HCO3 ABG O2 Saturation ABG Base Excess ABG Hemoglobin Oxyhemoglobin Sodium Potassium Chloride Carbon Dioxide BUN Creatinine Glucose POC Glucose 310 H 337 H Calcium Phosphorus Magnesium Alkaline Phosphatase Total Protein Albumin Triglycerides Lipase Urine WBC (Auto) Urine Creatinine Urine Total Protein Crossmatch 02/23/20 02/24/20 02/24/20 22:28 05:25 05:40 WBC 21.0 H RBC 2.40 L Hgb 7.3 L Hct 23.4 L MCHC RDW 15.8 H Plt Count 120 L Lymph % (Auto) [place] % (Auto) [place] # Seg Neutrophils % Seg Neuts % (Manual) 87.0 H Lymphocytes % (Manual) 5.0 L Monocytes % (Manual) Nucleated RBC % 1.0 H Seg Neutrophils # Seg Neutrophils # Man 18.3 H Lymphocytes # (Manual) 1.1 L Monocytes # (Manual) 1.1 H Eosinophils # (Manual) PT INR APTT Heparin Anti-Xa Level ABG pH ABG pO2 ABG HCO3 ABG O2 Saturation ABG Base Excess ABG Hemoglobin Oxyhemoglobin Sodium Potassium Chloride Carbon Dioxide BUN Creatinine Glucose POC Glucose 314 H 307 H Calcium Phosphorus Magnesium Alkaline Phosphatase Total Protein Albumin Triglycerides Lipase Urine WBC (Auto) Urine Creatinine Urine Total Protein Crossmatch 02/24/20 02/24/20 02/24/20 05:40 09:05 12:11 WBC RBC Hgb Hct MCHC RDW Plt Count Lymph % (Auto) [place] % (Auto) [place] # Seg Neutrophils % Seg Neuts % (Manual) Lymphocytes % (Manual) Monocytes % (Manual) Nucleated RBC % Seg Neutrophils # Seg Neutrophils # Man Lymphocytes # (Manual) Monocytes # (Manual) Eosinophils # (Manual) PT INR APTT Heparin Anti-Xa Level ABG pH ABG pO2 ABG HCO3 ABG O2 Saturation ABG Base Excess ABG Hemoglobin Oxyhemoglobin Sodium 123 L D 134 L D Potassium 6.8 H* D Chloride 88.1 L 96 L Carbon Dioxide 19 L BUN 83 H 89 H Creatinine 3.9 H 4.2 H Glucose 657 H* 262 H POC Glucose 217 H Calcium 8.1 L Phosphorus 4.90 H Magnesium 2.50 H Alkaline Phosphatase Total Protein Albumin Triglycerides Lipase Urine WBC (Auto) Urine Creatinine Urine Total Protein Crossmatch 02/24/20 02/24/20 02/25/20 17:58 23:23 05:25 WBC 25.3 H RBC 2.59 L Hgb 8.1 L Hct 23.9 L MCHC RDW Plt Count Lymph % (Auto) [place] % (Auto) [place] # Seg Neutrophils % Seg Neuts % (Manual) 87.0 H Lymphocytes % (Manual) 6.0 L Monocytes % (Manual) Nucleated RBC % Seg Neutrophils # Seg Neutrophils # Man 22.0 H Lymphocytes # (Manual) Monocytes # (Manual) 1.5 H Eosinophils # (Manual) PT INR APTT Heparin Anti-Xa Level ABG pH ABG pO2 ABG HCO3 ABG O2 Saturation ABG Base Excess ABG Hemoglobin Oxyhemoglobin Sodium Potassium Chloride Carbon Dioxide BUN Creatinine Glucose POC Glucose 236 H 223 H Calcium Phosphorus Magnesium Alkaline Phosphatase Total Protein Albumin Triglycerides Lipase Urine WBC (Auto) Urine Creatinine Urine Total Protein Crossmatch 02/25/20 02/25/20 02/25/20 05:25 05:40 11:47 WBC RBC Hgb Hct MCHC RDW Plt Count Lymph % (Auto) [place] % (Auto) [place] # Seg Neutrophils % Seg Neuts % (Manual) Lymphocytes % (Manual) Monocytes % (Manual) Nucleated RBC % Seg Neutrophils # Seg Neutrophils # Man Lymphocytes # (Manual) Monocytes # (Manual) Eosinophils # (Manual) PT INR APTT Heparin Anti-Xa Level ABG pH ABG pO2 ABG HCO3 ABG O2 Saturation ABG Base Excess ABG Hemoglobin Oxyhemoglobin Sodium 132 L Potassium Chloride 94.9 L Carbon Dioxide BUN 100 H Creatinine 4.9 H Glucose 174 H POC Glucose 173 H 154 H Calcium Phosphorus Magnesium Alkaline Phosphatase Total Protein 5.0 L Albumin 2.3 L Triglycerides Lipase Urine WBC (Auto) Urine Creatinine Urine Total Protein Crossmatch 02/25/20 02/25/20 02/26/20 17:53 23:49 05:00 WBC 16.2 H RBC 2.36 L Hgb 7.4 L Hct 22.0 L MCHC RDW 15.5 H Plt Count Lymph % (Auto) 7.[address] [place] % (Auto) 8.[address] [place] # 1.4 H Seg Neutrophils % 83.1 H Seg Neuts % (Manual) Lymphocytes % (Manual) Monocytes % (Manual) Nucleated RBC % Seg Neutrophils # 13.5 H Seg Neutrophils # Man Lymphocytes # (Manual) Monocytes # (Manual) Eosinophils # (Manual) PT INR APTT Heparin Anti-Xa Level ABG pH ABG pO2 ABG HCO3 ABG O2 Saturation ABG Base Excess ABG Hemoglobin Oxyhemoglobin Sodium Potassium Chloride Carbon Dioxide BUN Creatinine Glucose POC Glucose 131 H 124 H Calcium Phosphorus Magnesium Alkaline Phosphatase Total Protein Albumin Triglycerides Lipase Urine WBC (Auto) Urine Creatinine Urine Total Protein Crossmatch 02/26/20 05:00 WBC RBC Hgb Hct MCHC RDW Plt Count Lymph % (Auto) [place] % (Auto) [place] # Seg Neutrophils % Seg Neuts % (Manual) Lymphocytes % (Manual) Monocytes % (Manual) Nucleated RBC % Seg Neutrophils # Seg Neutrophils # Man Lymphocytes # (Manual) Monocytes # (Manual) Eosinophils # (Manual) PT INR APTT Heparin Anti-Xa Level ABG pH ABG pO2 ABG HCO3 ABG O2 Saturation ABG Base Excess ABG Hemoglobin Oxyhemoglobin Sodium Potassium Chloride Carbon Dioxide BUN 74 H Creatinine 4.1 H Glucose POC Glucose Calcium Phosphorus Magnesium Alkaline Phosphatase Total Protein Albumin Triglycerides Lipase Urine WBC (Auto) Urine Creatinine Urine Total Protein Crossmatch
[2020-02-26] MEDS: METOPROLOL TARTRATE 50 MG TAB PO SCH ×2 (11:42→20:16)
[2020-02-26] MEDS ORDERED: dilTIAZem 30 MG TAB PO SCH (12:00)
[2020-02-26] MEDS: APIXABAN 5 MG TAB PO SCH ×2 (12:30→22:52)
[2020-02-26] MEDS: ACETAMINOPHEN 325 MG TAB PO PRN (20:14)
[2020-02-27] MEDS: INSULIN LISPRO 100 UNIT/ML SUB-Q SCH ×4 (02:20→19:17)
[2020-02-27] MEDS: fentaNYL 100 MCG/2 ML INJ IV PRN (02:20)
[2020-02-27] MEDS: VANCOMYCIN 250 MG/10 ML ORAL LIQD PO SCH ×2 (02:30→11:08)
[2020-02-27] MEDS: METOPROLOL TARTRATE 5 MG/5 ML INJ IV PRN (02:34)
[2020-02-27] MEDS: METOPROLOL TARTRATE 50 MG TAB PO SCH ×3 (04:39→19:18)
--- NOTE | 2020-02-27 10:53 | Progress Note ---
Assessment and Plan Assessment and plan: --Febrile illness; secondary to sepsis,/gram-positive bacteremia ID following, no empiric antibiotics --Acute hypoxic resp failure: On ventilatory support unable to wean Wean as tolerated and extubate, pulmonary critical following --Anemia; requiring multiple units of PRBC, total 5 units transfusion Hb low stable, monitor H&H and transfuse additional PRBC as needed --Atrial fibrillation; rate controlled continue metoprolol and amiodarone Chronic anticoagulation Eliquis started, monitor for any bleeding --Sepsis: due to ischemic bowel. Completed antibiotics, ID surgery following --Peritonitis :secondary to ischemia/gangrene of Small bowel and Cecum. s/p Exploratory laparotomy, extensive small bowel resection, partial colon resection, placement of abthera vac on 02/13/2020. S/p exploratory laparotomy, enterocolonic anastamosis, closure of abdomen, application of wound vac on 02/15 --UTI : Completed antibiotics per ID. --C. difficile colitis. [Positive C. difficile test] contact isolation,s/p oral vancomycin --Diarrhea: resolved prior to presentation, doubt C diff, likely from ischemic bowel. --Presumed infected renal cyst. ID following --Diabetes Mellitus type 2:Tight glycemic control, accucheks and SSC, Insulin as needed --Hyponatremia; closely monitor electrolytes, mild improvement, resolved --LITZY on CKD: Renally adjust antibiotics, hemodialysis as needed nephrology following --Severe protein calorie malnutrition; nutrition supplements, Supportive care --Right saphenous vein DVT.s/p Anticoagulation No anticoagulation due to severe anemia, closely monitor 02/18/2020. Patient still with oral ETT on mechanical ventilation. Patient currently with PSVT trials, FiO2 30% pressure support 12 and PEEP 6. Continue to wean as tolerated. Consider extubation today. However, chest x-ray today reveals developing right pleural effusion. Continue wound care per wound team. Continue incisional wound VAC. Continue strict n.p.o. and NGT to low intermittent suction. Continue IV antibiotics per ID 02/19/2020. Patient currently with AC mode ventilation rate 16, tidal volume 450, FiO2 30%, PEEP 6. Continue to wean per protocol and pulmonary recommendations. Patient failed PSV secondary to tachypnea today. Continue wound care per wound team. Continue incisional wound VAC. Continue strict n.p.o. and NGT to low intermittent suction. Continue IV antibiotics per ID. Creatinine stable today at 5.1/5.2 and remains non-oliguric; no indication for renal replacement therapy emergently per nephrology. Nephrology to administer 100 mg of IV Lasix today to further promote diuresis and help with metabolic acidosis. Remains at high risk for needing renal replacement therapy 02/20/2020. Patient currently with AC mode ventilation rate 16, tidal volume 450, FiO2 30%, PEEP 6. Continue to wean per protocol and pulmonary recommendations. Patient failed PSV trials. Patient with right lower extremity DVT. Continue anticoagulation which patient is currently on. Patient also with C. difficile colitis/C. difficile positive. We will start p.o. vancomycin. Acute kidney injury on CKD continues to worsen. Therefore, patient will likely need hemodialysis. Defer to nephrology. 02/21/2020. Patient remains on mechanical ventilation AC mode, rate 16, tidal volume 450, FiO2 30%. Continue weaning per protocol. 2 units PRBCs ordered stat for severe anemia. Follow-up CBC posttransfusion. Patient currently on anticoagulation for right lower extremity DVT. Continue wound care. BG elevated in the 300s. We will start Lantus 10 units at bedtime. 02/22/2020. Patient remains on mechanical ventilation AC mode rate 16, tidal volume 450 and FiO2 30%. Continue PSV trials urine culture found to be negative. Continue p.o. vancomycin for C. difficile. Continue cefepime, Flagyl and fluconazole for sepsis/peritonitis. Blood cultures thus far negative. Patient s/p PRBCs for severe anemia. Hemoglobin stable at 7.4. Follow-up CBC in a.m. Patient currently on anticoagulation for right lower extremity DVT. 02/23/20. Anticoagulation for A. fib currently on hold due to anemia. Patient is s/p PRBCs. We will follow-up H&H. Continue to feed via NG tube and advance as tolerated. Continue TPN until patient tolerating tube feeding at goal. Continue wound VAC and monitor drainage. With regards her renal function, LITZY on CKD 3--with ATN, hemodialysis per nephrology. S/p IV Lasix 100mg yesterday with ~1L urine output; will administer another high dose IV lasix bolus on non- HD days to encourage ongoing volume removal and minimize HD UF needs. Continue antibiotics per ID. Leukocytosis likely secondary to UTI. CT C/A/P 02/19/20 - post operative changes of right colon. Anastamosis is intact. Generalized edema of abdominal wall. Urine and blood cultures were found to be negative. 02/24/20; on vent PSV, CPAP mode, wean as tolerated and extubate, transition TPN to full dose tube feeding HD as needed, no HD recommended today 02/25/20: Worsening leukocytosis, multifactorial secondary to UTI, C. difficile colitis On oral vancomycin, ID following, 02/26/20; patient is febrile, has gram-positive cocci bacteremia, continue current antibiotics, ID following 02/27/20: Patient has persistent fevers, continue empiric antibiotics follow cultures The high probability of a clinically significant, sudden or life threatening deterioration of the [respiratory] system(s) required my full and direct attention, intervention and personal management. The aggregate critical care time was [35] minutes. This time is in addition to time spent performing reported procedures but includes the following: [x] Data Review and interpretation [x] Patient assessment and monitoring of vital signs [x] Documentation [x] Medication orders and management Hospitalist Physical - Constitutional Vitals: Temp Pulse Resp BP Pulse Ox 102.4 F H 119 H 40 H 153/87 98 02/27/20 08:00 02/27/20 10:00 02/27/20 10:00 02/27/20 10:02/27/20 10:00 General appearance: Present: no acute distress, well-nourished, obese, other (Intubated, on vent, febrile) - EENT Eyes: Present: PERRL, EOM intact ENT: other (ET tube Dobbhoff in place) - Neck Neck: Present: supple, normal ROM - Respiratory Respiratory effort: normal Respiratory: bilateral: diminished, negative: rales, rhonchi, wheezing - Cardiovascular Rhythm: regular Heart Sounds: Present: S1 & S2 - Extremities Extremities: no ischemia Extremity abnormal: edema - Abdominal General gastrointestinal: soft, non-tender, non-distended, normal bowel sounds - Integumentary Integumentary: Present: clear, warm - Psychiatric Psychiatric: other (Intubated on vent) - Neurologic Neurologic: moves all extremities, other (Intubated on vent) HEART Score - HEART Score Troponin: Troponin T < 0.010 ng/mL (0.00-0.029) 02/11/20 15:27 Results - Labs CBC & Chem 7: 02/26/20 05:00 02/26/20 05:00 Labs: Laboratory Last Values WBC 16.2 K/mm3 (4.5-11.0) H 02/26/20 05:00 RBC 2.36 M/mm3 (3.65-5.03) L 02/26/20 05:00 Hgb 7.4 gm/dl (10.1-14.3) L 02/26/20 05:00 Hct 22.0 % (30.3-42.9) L 02/26/20 05:00 MCV 93 fl (79-97) 02/26/20 05:00 MCH 32 pg (28-32) 02/26/20 05:00 MCHC 34 % (30-34) 02/26/20 05:00 RDW 15.5 % (13.2-15.2) H 02/26/20 05:00 Plt Count 141 K/mm3 (140-440) 02/26/20 05:00 Lymph % (Auto) 7.8 % (13.4-35.0) L 02/26/20 05:00 [place] % (Auto) 8.5 % (0.0-7.3) H 02/26/20 05:00 Eos % (Auto) 0.2 % (0.0-4.3) 02/26/20 05:00 Baso % (Auto) 0.4 % (0.0-1.8) 02/26/20 05:00 Lymph # 1.3 K/mm3 (1.2-5.4) 02/26/20 05:00 [place] # 1.4 K/mm3 (0.0-0.8) H 02/26/20 05:00 Eos # 0.0 K/mm3 (0.0-0.4) 02/26/20 05:00 Baso # 0.1 K/mm3 (0.0-0.1) 02/26/20 05:00 Add Manual Diff Complete 02/25/20 05:25 Total Counted 100 02/25/20 05:25 Seg Neutrophils % 83.1 % (40.0-70.0) H 02/26/20 05:00 Seg Neuts % (Manual) 87.0 % (40.0-70.0) H 02/25/20 05:25 Band Neutrophils % 1.0 % 02/25/20 05:25 Lymphocytes % (Manual) 6.0 % (13.4-35.0) L 02/25/20 05:25 Reactive Lymphs % (Man) 0 % 02/25/20 05:25 Monocytes % (Manual) 6.0 % (0.0-7.3) 02/25/20 05:25 Eosinophils % (Manual) 0 % (0.0-4.3) 02/25/20 05:25 Basophils % (Manual) 0 % (0.0-1.8) 02/25/20 05:25 Metamyelocytes % 0 % 02/25/20 05:25 Myelocytes % 0 % 02/25/20 05:25 Promyelocytes % 0 % 02/25/20 05:25 Blast Cells % 0 % 02/25/20 05:25 Nucleated RBC % Not Reportable 02/25/20 05:25 Seg Neutrophils # 13.5 K/mm3 (1.8-7.7) H 02/26/20 05:00 Seg Neutrophils # Man 22.0 K/mm3 (1.8-7.7) H 02/25/20 05:25 Band Neutrophils # 0.3 K/mm3 02/25/20 05:25 Lymphocytes # (Manual) 1.5 K/mm3 (1.2-5.4) 02/25/20 05:25 Abs React Lymphs (Man) 0.0 K/mm3 02/25/20 05:25 Monocytes # (Manual) 1.5 K/mm3 (0.0-0.8) H 02/25/20 05:25 Eosinophils # (Manual) 0.0 K/mm3 (0.0-0.4) 02/25/20 05:25 Basophils # (Manual) 0.0 K/mm3 (0.0-0.1) 02/25/20 05:25 Metamyelocytes # 0.0 K/mm3 02/25/20 05:25 Myelocytes # 0.0 K/mm3 02/25/20 05:25 Promyelocytes # 0.0 K/mm3 02/25/20 05:25 Blast Cells # 0.0 K/mm3 02/25/20 05:25 WBC Morphology Not Reportable 02/25/20 05:25 Hypersegmented Neuts Not Reportable 02/25/20 05:25 Hyposegmented Neuts Not Reportable 02/25/20 05:25 Hypogranular Neuts Not Reportable 02/25/20 05:25 Smudge Cells Not Reportable 02/25/20 05:25 Toxic Granulation Not Reportable 02/25/20 05:25 Toxic Vacuolation Not Reportable 02/25/20 05:25 Dohle Bodies Not Reportable 02/25/20 05:25 Pelger-Huet Anomaly Not Reportable 02/25/20 05:25 Jyoti Rods Not Reportable 02/25/20 05:25 Platelet Estimate Consistent w auto 02/25/20 05:25 Clumped Platelets Not Reportable 02/25/20 05:25 Plt Clumps, EDTA Not Reportable 02/25/20 05:25 Large Platelets Not Reportable 02/25/20 05:25 Giant Platelets Not Reportable 02/25/20 05:25 Platelet Satelliting Not Reportable 02/25/20 05:25 Plt Morphology Comment Not Reportable 02/25/20 05:25 RBC Morphology Not Reportable 02/25/20 05:25 Dimorphic RBCs Not Reportable 02/25/20 05:25 Polychromasia Few 02/25/20 05:25 Hypochromasia Not Reportable 02/25/20 05:25 Poikilocytosis Not Reportable 02/25/20 05:25 Anisocytosis 1+ 02/25/20 05:25 Microcytosis Not Reportable 02/25/20 05:25 Macrocytosis Not Reportable 02/25/20 05:25 Spherocytes Not Reportable 02/25/20 05:25 Pappenheimer Bodies Not Reportable 02/25/20 05:25 Sickle Cells Not Reportable 02/25/20 05:25 Target Cells Not Reportable 02/25/20 05:25 Tear Drop Cells Not Reportable 02/25/20 05:25 Ovalocytes Not Reportable 02/25/20 05:25 Helmet Cells Not Reportable 02/25/20 05:25 [place] Bodies Not Reportable 02/25/20 05:25 [place] Rings Not Reportable 02/25/20 05:25 Andrea Cells Not Reportable 02/25/20 05:25 Bite Cells Not Reportable 02/25/20 05:25 Crenated Cell Not Reportable 02/25/20 05:25 Elliptocytes Not Reportable 02/25/20 05:25 Acanthocytes (Spur) Not Reportable 02/25/20 05:25 Rouleaux Not Reportable 02/25/20 05:25 Hemoglobin C Crystals Not Reportable 02/25/20 05:25 Schistocytes Not Reportable 02/25/20 05:25 Malaria parasites Not Reportable 02/25/20 05:25 Babar Bodies Not Reportable 02/25/20 05:25 Hem Pathologist Commnt No 02/25/20 05:25 PT 16.9 Sec. (12.2-14.9) H 02/13/20 20:10 INR 1.41 (0.87-1.13) H 02/13/20 20:10 APTT 35.3 Sec. (24.2-36.6) 02/13/20 20:10 Heparin Anti-Xa Level 0.15 U.I./ml (0.3-0.7) L 02/23/20 02:55 ABG pH 7.318 pH Units (7.350-7.450) L 02/21/20 04:16 ABG pCO2 42.7 mm Hg 02/21/20 04:16 ABG pO2 100.0 mm Hg (80.0-90.0) H 02/21/20 04:16 ABG HCO3 21.4 mmol/L (20.0-26.0) 02/21/20 04:16 ABG O2 Saturation 97.2 % (95.0-99.0) 02/21/20 04:16 ABG O2 Content 12.3 (0.0-44) 02/21/20 04:16 ABG Base Excess -4.4 mmol/L (-2.0-3.0) L 02/21/20 04:16 ABG Hemoglobin 9.1 gm/dl (12.0-16.0) L 02/21/20 04:16 ABG Carboxyhemoglobin 1.5 % (0.0-5.0) 02/21/20 04:16 ABG Methemoglobin 0.7 % (0.0-1.5) 02/21/20 04:16 Oxyhemoglobin 95.2 % (95.0-99.0) 02/21/20 04:16 FiO2 30 % 02/21/20 04:16 Sodium 137 mmol/L (137-145) 02/26/20 05:00 Potassium 4.3 mmol/L (3.6-5.0) 02/26/20 05:00 Chloride 98.3 mmol/L (98-107) 02/26/20 05:00 Carbon Dioxide 23 mmol/L (22-30) 02/26/20 05:00 Anion Gap 20 mmol/L 02/26/20 05:00 BUN 74 mg/dL (7-17) H 02/26/20 05:00 Creatinine 4.1 mg/dL (0.7-1.2) H 02/26/20 05:00 Estimated GFR 11 ml/min 02/26/20 05:00 BUN/Creatinine Ratio 18 % 02/26/20 05:00 Glucose 98 mg/dL (65-100) 02/26/20 05:00 POC Glucose 203 (70-105) H 02/27/20 05:40 Ketones Quantitative Negative (Negative) 02/13/20 14:51 Lactic Acid 0.70 mmol/L (0.7-2.0) 02/14/20 Unknown Calcium 8.5 mg/dL (8.4-10.2) 02/26/20 05:00 Phosphorus 4.90 mg/dL (2.5-4.5) H 02/24/20 05:40 Magnesium 2.20 mg/dL (1.7-2.3) 02/25/20 05:25 Total Bilirubin 0.30 mg/dL (0.1-1.2) 02/25/20 05:25 Direct Bilirubin < 0.2 mg/dL (0-0.2) 02/25/20 05:25 Indirect Bilirubin 0.1 mg/dL 02/25/20 05:25 AST 20 units/L (5-40) 02/25/20 05:25 ALT 17 units/L (7-56) 02/25/20 05:25 Alkaline Phosphatase 76 units/L (35-129) 02/25/20 05:25 Troponin T < 0.010 ng/mL (0.00-0.029) 02/11/20 15:27 Total Protein 5.0 g/dL (6.3-8.2) L 02/25/20 05:25 Albumin 2.3 g/dL (3.9-5) L 02/25/20 05:25 Albumin/Globulin Ratio 0.9 % 02/25/20 05:25 Triglycerides 238 mg/dL (2-149) H 02/17/20 03:45 Lipase 60 units/L (13-60) 02/13/20 14:51 Urine Color Yellow (Yellow) 02/19/20 14:00 Urine Turbidity Cloudy (Clear) 02/19/20 14:00 Urine pH 5.0 (5.0-7.0) 02/19/20 14:00 Ur Specific Bowie 1.007 (1.003-1.030) 02/19/20 14:00 Urine Protein 100 mg/dl mg/dL (Negative) 02/19/20 14:00 Urine Glucose (UA) >=500 mg/dL (Negative) 02/19/20 14:00 Urine Ketones Tr mg/dL (Negative) 02/19/20 14:00 Urine Blood Lg (Negative) 02/19/20 14:00 Urine Nitrite Neg (Negative) 02/19/20 14:00 Urine Bilirubin Neg (Negative) 02/19/20 14:00 Urine Urobilinogen < 2.0 mg/dL (<2.0) 02/19/20 14:00 Ur Leukocyte Esterase Lg (Negative) 02/19/20 14:00 Urine WBC (Auto) 166.0 /HPF (0.0-6.0) H 02/19/20 14:00 Urine RBC (Auto) 20.0 /HPF (0.0-6.0) 02/19/20 14:00 U Epithel Cells (Auto) 2.0 /HPF (0-13.0) 02/19/20 14:00 Urine Bacteria (Auto) 1+ /HPF (Negative) 02/19/20 14:00 Urine WBC Clumps 3+ /HPF 02/19/20 14:00 Urine Mucus Few /HPF 02/19/20 14:00 Urine Yeast (Budding) 3+ /HPF 02/19/20 14:00 Urine Eosinophils None seen (None Seen) 02/12/20 Unknown Urine Creatinine 35.3 mg/dL (0.1-20.0) H 02/12/20 Unknown Protein/Creatinin Ratio 22.55 02/12/20 Unknown Urine Total Protein 796 mg/dL (5-11.8) H 02/12/20 Unknown C. difficile Tox (PCR) Positive (Negative) 02/19/20 12:46 Coronavirus (PCR) Negative (Negative) 02/25/20 08:50 Hepatitis A IgM Ab Non-reactive (NonReactive) 02/21/20 10:30 Hep Bs Antigen Non-reactive (Negative) 02/21/20 10:30 Hep B Core IgM Ab Non-reactive (NonReactive) 02/21/20 10:30 Hepatitis C Antibody Non-reactive (NonReactive) 02/21/20 10:30 Blood Type O NEGATIVE 02/21/20 06:00 Antibody Screen Negative 02/21/20 06:00 Crossmatch See Detail 02/21/20 06:00 Microbiology: Microbiology 02/24/20 14:51 Peripheral/Venous Blood Culture - Preliminary Coag Negative Staphylococcus 02/24/20 14:51 Peripheral/Venous Blood Culture - Preliminary Coag Negative Staphylococcus - Diagnostic Impressions Diagnostic Impressions: Echocardiogram 02/13/20 18:02 Transthoracic Echocardiogram Indication: Afib BP: 101/70 HR: 128 Findings Left Ventricle: The left ventricular chamber size is normal. Mild to moderate concentric left ventricular hypertrophy is observed. Global left ventricular wall motion and contractility are within normal limits. Global left ventricular systolic function is normal. The estimated ejection fraction is 60-65%. Left Atrium: The left atrium is mild to moderately dilated. Right Ventricle: The right ventricular cavity size is normal. The right ventricular global systolic function is normal. Right Atrium: The right atrium appears normal. The interatrial septum appears normal. Aortic Valve: The aortic valve structure is normal. The aortic valve leaflets are mildly thickened. There is no evidence of aortic regurgitation. There is no evidence of aortic stenosis. Mitral Valve: The mitral valve leaflets appear normal. There is no evidence of mitral regurgitation. There is no evidence of mitral stenosis. Tricuspid Valve: The tricuspid valve leaflets are normal. There is mild to moderate tricuspid regurgitation. The right ventricular systolic pressure is calculated at 39 mmHg. There is evidence of pulmonary hypertension. There is no tricuspid stenosis. Pulmonic Valve: The pulmonic valve appears normal. There is no evidence of pulmonic regurgitation. There is no pulmonic stenosis. Pericardium: A pericardial effusion is visualized. There is a minimial pericardial effusion. A left pleural effusion is present. There is a moderate pleural effusion. Aorta: There is no dilatation of the ascending aorta. There is no dilatation of the aortic arch. There is no dilatation of the descending thoracic aorta. There is no dilatation of the aortic root. Venous: The inferior vena cava appears normal in size. Measurements Chambers 2D Name Value Normal Range IVSd (2D) 1.34 cm (0.6 - 1.1) LVPWd (2D) 1.35 cm (0.6 - 1.1) LVIDd (2D) 4.72 cm (3.7 - 5.6) LVIDs (2D) 3.28 cm (2 - 3.8) LV FS (2D) 30.38 % - EF Teichholz (2D) 57.75 % - Ao root diameter (2D) 3.02 cm (2 - 3.7) Volumes/Mass Name Value Normal Range LA ESV SP 4CH (A/L) 55.87 ml - LA ESV SP 2CH (A/L) 67.65 ml - LA ESV BP (A/L) 63.67 ml - LA ESV SP 4CH (MOD) 54.25 ml - LA ESV SP 2CH (MOD) 63.2 ml - LA ESV BP (MOD) 60.49 ml - LA ESV BP (MOD) index 34.18 ml/m2 - LV EDV SP 4CH (MOD) 70.96 ml - LV ESV SP 4CH (MOD) 23.49 ml - EF SP 4CH (MOD) 66.89 % - LV EDV SP 2CH (MOD) 61.41 ml - LV ESV SP 2CH (MOD) 27.43 ml - EF SP 2CH (MOD) 55.33 % - LV EDV BP 69.85 ml - LV ESV BP 26.44 ml - BP EF (MOD) 62.14 % - Aortic Valve Name Value Normal Range AV Vmax 1.29 m/sec - AV VTI 18.56 cm - AV peak gradient 6.69 mmHg - AV mean gradient 3.39 mmHg - LVOT diameter 1.95 cm - LVOT Vmax 1.14 m/sec - LVOT VTI 16.24 cm - LVOT peak gradient 5.21 mmHg - LVOT mean gradient 2.04 mmHg - SV LVOT 48.71 ml - TABATHA (continuity Vmax) 2.65 cm2 - TABATHA (continuity VTI) 2.62 cm2 - Ascending Ao 2.96 cm - Tricuspid Valve Name Value Normal Range TR Vmax 2.47 m/sec - TR peak gradient 24 mmHg - RAP 15 mmHg - RVSP 39 mmHg - Pulmonic Valve/Qp:Qs Name Value Normal Range PV Vmax 1.15 m/sec - PV peak gradient 5.33 mmHg - PV acceleration time 68.51 msec - Acevedo/IV: Voiding Method Indwelling Catheter IV Catheter Type [Right VAS Cath Internal Jugular] IV Catheter Type [Left Upper PICC Line arm] IV Catheter Type [Right INT / Saline Lock Antecubital] IV Catheter Type [Right Peripheral IV Forearm] IV Catheter Type [Left Forearm INT / Saline Lock ] IV Catheter Type [Right Hand] Peripheral IV Active Medications - Current Medications Current Medications: Generic Name Dose Route Start Last Admin Trade Name Freq PRN Reason Stop Dose Admin Acetaminophen 650 mg 02/11/20 19:01 02/26/20 20:14 Tylenol PO 650 mg Q4H PRN Administration Pain MILD(1-3)/Fever >100.5/ADAMS Amiodarone HCl 200 mg 02/24/20 10:00 02/26/20 10:54 Cordarone PO 200 mg QDAY NADER Administration Lipase/Protease/Amylase 1 each 02/20/20 10:28 Pancreazflorentin Daugherty 10,500 Unit FEEDTUBE PRN PRN For Clogged Feeding Tube Apixaban 10 mg 02/26/20 12:00 02/26/20 22:52 Eliquis PO 03/03/20 22:01 10 mg Q12HR NADER Administration Protocol Apixaban 5 mg 03/04/20 10:00 Eliquis PO Q12HR NADER Protocol Dextrose 50 ml 02/19/20 14:58 D50w (25gm) Syringe IV Q30MIN PRN Hypoglycemia Protocol Famotidine 20 mg 02/24/20 10:00 02/26/20 10:53 Pepcid PO 20 mg DAILY NADER Administration Fentanyl 50 mcg 02/19/20 15:30 02/27/20 02:20 Sublimaze IV 50 mcg Q10MIN PRN Administration ANALGESIA Fentanyl 50 mcg 02/24/20 09:52 02/26/20 05:38 Sublimaze IV 50 mcg Q2HR PRN Administration Pain, Moderate (4-6) Hydrophilic Ointment 1 applic 02/13/20 19:41 Vaseline Lip Therapy TP Q2HR PRN Dry Lips Fentanyl Citrate 2,000 mcg in 100 mls @ 4.05 mls/hr 02/19/20 16:00 02/24/20 18:59 Fentanyl Drip Premix IV 0 mcg/kg/hr TITR NADER 0 mls/hr Titration Protocol 1 MCG/KG/HR Sodium Chloride 100 mls @ 999 mls/hr 02/22/20 12:30 Nacl 0.9% IV FABIOLA PRN Hypotension Insulin Glargine 40 units 02/24/20 22:00 02/25/20 21:15 Lantus SUB-Q 40 units BID NADER Administration Insulin Human Lispro 0 unit 02/19/20 18:00 02/27/20 02:20 Humalog SUB-Q Not Given Q6HR [facility] Protocol Labetalol HCl 20 mg 02/13/20 18:00 02/26/20 22:52 Labetalol IV 20 mg Q4H PRN Administration SBP >150 Metoprolol Tartrate 2.5 mg 02/13/20 18:00 02/27/20 02:34 Metoprolol IV 2.5 mg Q6HR PRN Administration HR >130 Metoprolol Tartrate 50 mg 02/26/20 11:00 02/27/20 04:39 Metoprolol PO 50 mg Q8H NADER Administration Multi-Ingred Cream/Lotion/Oil/Oint 1 applic 02/13/20 19:41 Artificial Tears Ophth Oint OU Q4HR PRN Dry Eye(s) Sertraline HCl 50 mg 02/23/20 10:00 02/26/20 10:54 Zoloft PO 50 mg QDAY NADER Administration Simple Syrup 15 ml 02/20/20 10:28 Simple Syrup FEEDTUBE PRN PRN Hypoglycemia Simple Syrup 30 ml 02/20/20 10:28 Simple Syrup FEEDTUBE PRN PRN Hypoglycemia Sodium Bicarbonate 325 mg 02/20/20 10:28 Sodium Bicarbonate FEEDTUBE PRN PRN For Clogged Feeding Tube Sodium Chloride 10 ml 02/11/20 22:00 02/26/20 22:54 Sodium Chloride Flush Syringe 10 Ml IV 10 ml BID NADER Administration Sodium Chloride 10 ml 02/11/20 19:01 02/15/20 22:43 Sodium Chloride Flush Syringe 10 Ml IV 10 ml PRN PRN Administration LINE FLUSH Nutrition/Malnutrition Assess - Dietary Evaluation Nutrition/Malnutrition Findings: Nutrition Notes Start: 02/14/20 09:49 Freq: Status: Active Protocol: Document 02/25/20 09:25 LP (Rec: 02/25/20 09:29 LP [id number]) Nutrition Notes Initial or Follow up Reassessment Current Diagnosis Acute Kidney Injury,Decubitus( Pressure Ulcer),Diabetes, Hypertension,Hyperlipidemia Other Pertinent Diagnosis ischemic bowel with gangrene s /p exp lap, Current Diet CPN at 50ml/hr + Vital 1.2 at 50ml/hr Labs/Tests Na 132 BUN 100 Cr 4.9 BG 174 Pertinent Medications Reviewed Height 5 ft 5 in Weight 94 kg [place] Body Weight (kg) 56.81 BMI 34.4 Weight Status Obese Subjective/Other Information Pt tolerating Vital 1.2 at goal rate of 50ml/hr. TPN will be D/C once bag is empty. Percent of energy/protein needs met: 100%/100% Burn Absent Trauma Absent Current % PO Negligible Minimum of two criteria No #2 Nutrition Diagnosis Inadequate oral intake Diagnosis Progress(for reassessment Continues documentation) #1 Nutrition Diagnosis Altered GI function As Evidenced by Signs and Symptoms Pt tolerating TF at 50ml/hr ( goal rate) Diagnosis Progress(for reassessment Resolved documentation) Is patient on ventilator? Yes Is Patient Ambulatory and/or Out of Bed No REE-([facility]-confined to bed) 1729.128 Kcal/Kg value to use for calculation 15 Approximate Energy Requirements Using 1410 kcal/Kg Calculation Used for Recommendations Kcal/kg Additional Notes Pro needs 1.2-2g/k-140g/ day Fluid needs 1ml/kcal Nutrition Intervention Change Diet Order: TF Nutrition Support: D/C TPN. Vital 1.2 at 50ml/hr (goal rate) Flush with 100ml q4h Kcal 1,440 Protein (gm) 90 Fluid (mL) 966 Goal #1 Meet at least 75% of energy and protein needs Anticipated Discharge Needs: Unable to identify at this time Follow-Up By: 02/27/20 Additional Comments Follow for stable TF
[2020-02-27] MEDS: SERTRALINE 50 MG TAB PO SCH (11:09)
[2020-02-27] MEDS: AMIODARONE 200 MG TAB PO SCH (11:09)
[2020-02-27] MEDS: FAMOTIDINE 20 MG TAB PO SCH (11:09)
[2020-02-27] MEDS: APIXABAN 5 MG TAB PO SCH ×2 (11:10→22:12)
--- NOTE | 2020-02-27 11:39 | Progress Note ---
Assessment and Plan - Patient Problems (1) Atrial fibrillation Current Visit: Yes Status: Acute Plan to address problem: Paroxysmal atrial fibrillation, will continue medical therapy as previously outlined. Subjective Date of service: 02/27/20 Principal diagnosis: Ischemic Bowel Interval history: Patient is sedated, on the vent, with a sinus tachycardia at 122. Blood pressure is 153 systolic Objective Vital Signs Temp Pulse Resp BP Pulse Ox 02/27/20 11:00 119 H 41 H 153/93 98 02/27/20 10:30 119 H 29 H 152/87 98 02/27/20 10:00 119 H 40 H 153/87 98 02/27/20 09:30 123 H 39 H 162/85 98 02/27/20 09:00 121 H 34 H 162/91 98 02/27/20 08:30 124 H 27 H 161/95 98 02/27/20 08:00 102.4 F H 118 H 32 H 163/93 98 02/27/20 07:48 127 H 162/97 98 02/27/20 07:30 115 H 38 H 165/98 98 02/27/20 07:00 122 H 30 H 165/98 98 02/27/20 06:30 118 H 30 H 172/96 97 02/27/20 06:00 119 H 33 H 191/105 97 02/27/20 05:30 120 H 32 H 171/105 96 02/27/20 05:00 126 H 31 H 179/111 97 02/27/20 04:39 124 H 187/107 02/27/20 04:30 131 H 34 H 187/107 97 02/27/20 04:23 97 02/27/20 04:14 132 H 189/108 97 02/27/20 04:00 132 H 30 H 189/108 97 02/27/20 03:30 132 H 29 H 188/106 98 02/27/20 03:27 102.5 F H 02/27/20 03:00 132 H 29 H 186/106 98 02/27/20 02:34 133 H 187/108 02/27/20 02:30 134 H 25 H 187/108 99 02/27/20 02:00 133 H 25 H 189/111 98 02/27/20 01:30 133 H 27 H 189/109 98 02/27/20 01:00 133 H 25 H 175/101 98 02/27/20 00:30 116 H 28 H 132/78 100 02/27/20 00:20 110 H 132/68 100 02/27/20 00:00 103 H 21 143/65 100 02/26/20 23:30 105 H 26 H 157/72 99 02/26/20 23:16 102.3 F H 02/26/20 23:00 115 H 30 H 171/94 98 02/26/20 22:52 133 H 192/105 02/26/20 22:30 133 H 28 H 194/111 98 02/26/20 22:00 133 H 28 H 190/106 98 02/26/20 21:39 132 H 28 H 187/105 98 02/26/20 21:30 132 H 25 H 187/105 98 02/26/20 21:15 132 H 25 H 187/104 98 02/26/20 21:00 124 H 21 186/107 98 02/26/20 20:45 135 H 16 180/106 99 02/26/20 20:30 136 H 24 173/96 99 02/26/20 20:16 136 H 172/94 02/26/20 20:15 136 H 23 172/94 100 02/26/20 20:00 138 H 26 H 184/97 100 02/26/20 19:57 101.3 F H 02/26/20 19:45 135 H 29 H 178/102 99 02/26/20 19:43 135 H 178/102 99 02/26/20 19:30 134 H 20 180/98 98 02/26/20 19:15 134 H 28 H 180/95 99 02/26/20 19:00 132 H 21 177/97 99 02/26/20 18:45 133 H 26 H 169/91 99 02/26/20 18:30 133 H 22 163/94 98 02/26/20 18:17 135 H 191/101 02/26/20 18:15 135 H 27 H 191/101 99 02/26/20 18:00 135 H 25 H 186/103 98 02/26/20 17:45 134 H 29 H 196/98 98 02/26/20 17:30 135 H 22 196/98 98 02/26/20 17:15 134 H 26 H 195/99 98 02/26/20 17:00 133 H 25 H 194/102 98 02/26/20 16:45 134 H 21 186/96 98 02/26/20 16:30 133 H 24 182/96 98 02/26/20 16:15 133 H 23 185/101 97 02/26/20 16:00 135 H 21 194/102 100 02/26/20 15:45 133 H 25 H 180/93 98 02/26/20 15:30 132 H 23 181/91 98 02/26/20 15:25 100.7 F H 02/26/20 15:15 132 H 26 H 181/96 98 02/26/20 15:00 132 H 26 H 166/94 98 02/26/20 14:45 131 H 29 H 170/95 99 02/26/20 14:30 131 H 28 H 161/92 98 02/26/20 14:15 130 H 25 H 163/97 98 02/26/20 14:00 129 H 18 150/82 99 02/26/20 13:46 100 H 22 150/82 99 02/26/20 13:30 89 23 107/47 100 02/26/20 13:16 90 21 123/45 99 02/26/20 13:00 85 21 143/84 99 02/26/20 12:45 107 H 19 143/84 99 02/26/20 12:30 101 H 27 H 131/52 100 02/26/20 12:16 99 H 26 H 131/52 99 02/26/20 12:00 135 H 27 H 121/70 100 02/26/20 11:45 135 H 28 H 165/80 99 02/26/20 11:42 136 H 136/74 - Physical Examination General: Other (Intubated, on the vent) HEENT: Positive: PERRL Neck: Positive: neck supple, trachea midline. Negative: JVD/HJR Cardiac: Positive: Regular Rhythm Lungs: Positive: Decreased Breath Sounds Neuro: Positive: Other (Intubated, on the vent) Abdomen: Positive: Distended Skin: Positive: Clear Extremities: Absent: edema
--- NOTE | 2020-02-27 11:41 | Progress Note ---
Assessment and Plan 74 y/o female with abdominal pain, hypotension, now hypertensive with tachycardia and pain, worrisome for SBO and inflammation in colon from diverticula with worsening renal function. 02/27/2020: Febrile again last night and this am. Bacteria growing in blood was Coag negative staph so a presumed contaminant. May need to repeat blood cultures again once 24 hours out. Did not remove picc on yesterday but may need to if fevers persists. HR still tachy but this could be related to fever. Cards did increase dilt on yesterday, may need to increase more. If fever curve breaks later today, will try PSV again. Follow up renal recs and see if they have anything to offer in regards to blood pressure control. Other possibility is that she is febrile from clot. She had superficial clot in leg. Anticoagulation was stopped for several days secondary to anemia, and was just restarted yesterday. Will continue to monitor. Family wants to see patient again prior to discharge from here. Will arrange a time on Sunday for Daughter and Granddaughter to come. 02/26/2020: Patient is now bacteremic. She has several sources for the nidus. Will discuss with surgery, now that patient is off TPN and tolerating feeds, may try to remove PICC. I have asked nursing to find some peripherals prior to doing this. The other option would be to place a midline. ID has adjusted abx. Mental status is much better today. Purposeful eye movements, head turns and feet moving. Agree with cardiology in regards to increasing Dilt to 60. After the discussion with the granddaughter, will add some PRN benzo therapy to see if anxiety is playing a part. Continue PSV trials as tolerated. Goals would still be to extubate if possible without requiring trach. Per CM, family has agreed to an LTACH in [facility] to try to arrange admission as soon as possible. HD per renal, patient is still making urine and she does have a vascath which could be a source for infection as well. 02/25/2020: Long discussion with Granddaughter and Daughter over the phone to discuss LTACH. Currently they are not in favor.of LTACH. I tried my best to explain to them that this would be the next step in recovery for their family me mber. They are going to discuss amongst themselves and then let us know. I answered the questions they had to the best of my abilities. I also explained to them the current mental state, my thoughts and how we are trying to improve her mental state. They seem to understand this. We will continue daily PSV trials as tolerated. HD per renal. Overall prognosis is guarded. 02/24/2020: Continue PSV as tolerated. I have asked nursing to leave sedation off for as long as possible. I have also added PRN pushes of fentanyl with hopes of not having to restart the continuous infusion. I do not believe she will be ready for extubation today, but would like to work her respiratory muscles. Mental status is not exactly where we wont it to be. Heparin remains off and will discontinue from the MAR at this time. HD yesterday so likely none today. Will touch base with surgery and discuss with them but given the degree of illness and likely underlying lung disease as patient as still smoking, may need to consider LTACH if not able to wean in a timely fashion. Overall prognosis remains guarded. 02/23/2020: HD today. Will hold on weaning sedation given HD happening and likely will be to weak for PSV. Remains on minimal vent support. Transfusion today, of 2 units of PRBC's. Heparin on hold will need to recheck levels today. Spoke with pharm who will help with insulin therapy to better level of sugars. Abx therapy per ID. Flagyl and Cefepime stopped yesterday. Guarded prognosis. Will continue to follow. 02/20/2020: Positive VTE but already on anticoagulation for Afib. HgB is 7. Not hypotensive. Does respond to lasix. Will discuss with renal but my personal preference would be to hold until less than 7 for transfusion. ID on board and placed on antifungal yesterday. Improvement in white count. Spoke with RT who will attempt PSV again today. If patient fails again today, will speak with renal about more volume removal. May need HD briefly. Surgery also starting trickle feeds today. Spoke with Pharm about increasing lantus given hyperglycemia. C. Diff PCR came back positive today. 02/19/2020: More awake today but failed PSV secondary to tachypnea. Makes sense given degree of acidosis. Await renal to eval today. Wonder if more lasix will be given or if she will need HD. Only on 30% with good sats, but compensating for metabolic acidosis which is why she failed PSV. Spoke with Granddaughter over the phone, renal please call as she would like an update on renal function and plans. Continue pain control with PRN therapy but no further continuous sedation. 02/18/2020: More awake but failing PSV trials. Spoke with renal and they did not request corcoran out either. Will replace and give lasix 80mg IV. Spoke with Granddaughter over the phone who is a nurse. Will attempt PSV later this afternoon. If passes, will likely extubate in the am. If not , will give an additional dose of lasix tonight. 02/17/2020: Start to wean sedation today with hopes of extubation. Pain control. IVF's per renal. Follow up any surgery recs. ID seen this am, reviewed their note and plan to treat for 7 days of abx, currently on day 2. 02/16/2020: Picc line placed yesterday. Going to OR today, plan around 1330. If able to close, could consider starting to wean as early as tomorrow but will touch base with surgery first. Patient HR in the 50's on drip so cards decreased. Discussed on rounds, but I asked nursing if any further issues to j ust stop the drip. Prognosis remains guarded. Trigylcerides not checked so will order stat. 02/15/2020: No new recs for today. Happy with current clinical state in regards to sedation, ventilation and oxygenation. Appreciate surgery and nephro help. follow up any new recs from them. Agree with picc line, will get tomorrow as I believe they (picc team) are not available on Sunday. Will check triglyceride level in the am. Guarded prognosis. CCT 31 minutes. Subjective Date of service: 02/27/20 Principal diagnosis: Ischemic Bowel Interval history: Febrile overnight. Still febrile this am. Tachy and mildly hypertensive. Failed PSV with temp this am. Objective Vital Signs - 12hr 02/27/20 02/27/20 02/27/20 00:00 00:20 00:30 Temperature Pulse Rate 103 H 110 H 116 H Respiratory 21 28 H Rate Blood Pressure 143/65 132/68 132/78 O2 Sat by Pulse 100 100 100 Oximetry 02/27/20 02/27/20 02/27/20 01:00 01:30 02:00 Temperature Pulse Rate 133 H 133 H 133 H Respiratory 25 H 27 H 25 H Rate Blood Pressure 175/101 189/109 189/111 O2 Sat by Pulse 98 98 98 Oximetry 02/27/20 02/27/20 02/27/20 02:30 02:34 03:00 Temperature Pulse Rate 134 H 133 H 132 H Respiratory 25 H 29 H Rate Blood Pressure 187/108 187/108 186/106 O2 Sat by Pulse 99 98 Oximetry 02/27/20 02/27/20 02/27/20 03:27 03:30 04:00 Temperature 102.5 F H Pulse Rate 132 H 132 H Respiratory 29 H 30 H Rate Blood Pressure 188/106 189/108 O2 Sat by Pulse 98 97 Oximetry 02/27/20 02/27/20 02/27/20 04:14 04:23 04:30 Temperature Pulse Rate 132 H 131 H Respiratory 34 H Rate Blood Pressure 189/108 187/107 O2 Sat by Pulse 97 97 97 Oximetry 02/27/20 02/27/20 02/27/20 04:39 05:00 05:30 Temperature Pulse Rate 124 H 126 H 120 H Respiratory 31 H 32 H Rate Blood Pressure 187/107 179/111 171/105 O2 Sat by Pulse 97 96 Oximetry 02/27/20 02/27/20 02/27/20 06:00 06:30 07:00 Temperature Pulse Rate 119 H 118 H 122 H Respiratory 33 H 30 H 30 H Rate Blood Pressure 191/105 172/96 165/98 O2 Sat by Pulse 97 97 98 Oximetry 02/27/20 02/27/20 02/27/20 07:30 07:48 08:00 Temperature 102.4 F H Pulse Rate 115 H 127 H 118 H Respiratory 38 H 32 H Rate Blood Pressure 165/98 162/97 163/93 O2 Sat by Pulse 98 98 98 Oximetry 02/27/20 02/27/20 02/27/20 08:30 09:00 09:30 Temperature Pulse Rate 124 H 121 H 123 H Respiratory 27 H 34 H 39 H Rate Blood Pressure 161/95 162/91 162/85 O2 Sat by Pulse 98 98 98 Oximetry 02/27/20 02/27/20 02/27/20 10:00 10:30 11:00 Temperature Pulse Rate 119 H 119 H 119 H Respiratory 40 H 29 H 41 H Rate Blood Pressure 153/87 152/87 153/93 O2 Sat by Pulse 98 98 98 Oximetry Constitutional: no acute distress, other (on vent intubated and sedated) Eyes: non-icteric ENT: other (orally intubated ) Effort: normal Ascultation: Bilateral: clear Percussion: Bilateral: not dull Cardiovascular: irregular rhythm (but rate controlled) Gastrointestinal: other (post surgical changes) Integumentary: normal Extremities: edema Neurologic: unable to assess (on vent) CBC and BMP: 02/26/20 05:00 02/26/20 05:00 ABG, PT/INR, D-dimer: ABG ABG pH 7.318 pH Units (7.350-7.450) L 02/21/20 04:16 ABG pCO2 42.7 mm Hg 02/21/20 04:16 ABG pO2 100.0 mm Hg (80.0-90.0) H 02/21/20 04:16 ABG O2 Saturation 97.2 % (95.0-99.0) 02/21/20 04:16 PT/INR, D-dimer PT 16.9 Sec. (12.2-14.9) H 02/13/20 20:10 INR 1.41 (0.87-1.13) H 02/13/20 20:10 Abnormal lab findings: Abnormal Labs 02/11/20 02/11/20 02/11/20 15:27 15:27 15:27 WBC 22.5 H RBC Hgb Hct MCHC RDW Plt Count Lymph % (Auto) [place] % (Auto) [place] # Seg Neutrophils % Seg Neuts % (Manual) 90.0 H Lymphocytes % (Manual) 4.0 L Monocytes % (Manual) Nucleated RBC % Seg Neutrophils # Seg Neutrophils # Man 20.3 H Lymphocytes # (Manual) 0.9 L Monocytes # (Manual) 1.1 H Eosinophils # (Manual) PT INR APTT 23.3 L Heparin Anti-Xa Level ABG pH ABG pO2 ABG HCO3 ABG O2 Saturation ABG Base Excess ABG Hemoglobin Oxyhemoglobin Sodium 132 L Potassium Chloride 96.0 L Carbon Dioxide 16 L BUN 59 H Creatinine 3.0 H Glucose 487 H POC Glucose Calcium Phosphorus Magnesium Alkaline Phosphatase 142 H Total Protein Albumin Triglycerides Lipase 86 H Urine WBC (Auto) Urine Creatinine Urine Total Protein Crossmatch 02/12/20 02/12/2002/11/20 04:58 04:58 Unknown WBC 30.0 H RBC Hgb Hct MCHC RDW Plt Count Lymph % (Auto) [place] % (Auto) [place] # Seg Neutrophils % Seg Neuts % (Manual) 96.0 H Lymphocytes % (Manual) 1.0 L Monocytes % (Manual) Nucleated RBC % Seg Neutrophils # Seg Neutrophils # Man 28.8 H Lymphocytes # (Manual) 0.3 L Monocytes # (Manual) 0.9 H Eosinophils # (Manual) PT INR APTT Heparin Anti-Xa Level ABG pH ABG pO2 ABG HCO3 ABG O2 Saturation ABG Base Excess ABG Hemoglobin Oxyhemoglobin Sodium Potassium Chloride Carbon Dioxide 15 L BUN 59 H Creatinine 3.0 H Glucose 477 H POC Glucose Calcium Phosphorus Magnesium Alkaline Phosphatase Total Protein Albumin 3.5 L Triglycerides Lipase Urine WBC (Auto) Urine Creatinine 35.3 H Urine Total Protein 796 H Crossmatch 02/13/20 02/13/20 02/13/20 05:43 05:43 13:24 WBC 38.2 H RBC Hgb Hct 43.6 H MCHC RDW Plt Count Lymph % (Auto) [place] % (Auto) [place] # Seg Neutrophils % Seg Neuts % (Manual) 91.0 H Lymphocytes % (Manual) 4.0 L Monocytes % (Manual) Nucleated RBC % Seg Neutrophils # Seg Neutrophils # Man 34.8 H Lymphocytes # (Manual) Monocytes # (Manual) 1.1 H Eosinophils # (Manual) PT INR APTT Heparin Anti-Xa Level ABG pH ABG pO2 ABG HCO3 ABG O2 Saturation ABG Base Excess ABG Hemoglobin Oxyhemoglobin Sodium 136 L Potassium Chloride Carbon Dioxide 11 L BUN 71 H Creatinine 4.0 H Glucose 343 H POC Glucose 337 H Calcium Phosphorus Magnesium Alkaline Phosphatase Total Protein Albumin Triglycerides Lipase Urine WBC (Auto) Urine Creatinine Urine Total Protein Crossmatch 02/13/20 02/13/20 02/13/20 16:49 16:50 17:30 WBC RBC Hgb Hct MCHC RDW Plt Count Lymph % (Auto) [place] % (Auto) [place] # Seg Neutrophils % Seg Neuts % (Manual) Lymphocytes % (Manual) Monocytes % (Manual) Nucleated RBC % Seg Neutrophils # Seg Neutrophils # Man Lymphocytes # (Manual) Monocytes # (Manual) Eosinophils # (Manual) PT INR APTT Heparin Anti-Xa Level ABG pH 7.226 L ABG pO2 77.9 L ABG HCO3 16.4 L ABG O2 Saturation ABG Base Excess -10.5 L ABG Hemoglobin 11.7 L Oxyhemoglobin 92.8 L Sodium Potassium Chloride Carbon Dioxide BUN Creatinine Glucose POC Glucose 272 H Calcium Phosphorus Magnesium Alkaline Phosphatase Total Protein Albumin Triglycerides Lipase Urine WBC (Auto) Urine Creatinine Urine Total Protein Crossmatch See Detail 02/13/20 02/13/20 02/13/20 20:10 20:42 22:08 WBC RBC Hgb Hct MCHC RDW Plt Count Lymph % (Auto) [place] % (Auto) [place] # Seg Neutrophils % Seg Neuts % (Manual) Lymphocytes % (Manual) Monocytes % (Manual) Nucleated RBC % Seg Neutrophils # Seg Neutrophils # Man Lymphocytes # (Manual) Monocytes # (Manual) Eosinophils # (Manual) PT 16.9 H INR 1.41 H APTT Heparin Anti-Xa Level ABG pH 7.158 L* ABG pO2 ABG HCO3 18.6 L ABG O2 Saturation ABG Base Excess -10.2 L ABG Hemoglobin 11.9 L Oxyhemoglobin 93.1 L Sodium Potassium Chloride Carbon Dioxide BUN Creatinine Glucose POC Glucose 171 H Calcium Phosphorus Magnesium Alkaline Phosphatase Total Protein Albumin Triglycerides Lipase Urine WBC (Auto) Urine Creatinine Urine Total Protein Crossmatch 02/14/20 02/14/20 02/14/20 00:22 03:45 04:29 WBC RBC Hgb Hct MCHC RDW Plt Count Lymph % (Auto) [place] % (Auto) [place] # Seg Neutrophils % Seg Neuts % (Manual) Lymphocytes % (Manual) Monocytes % (Manual) Nucleated RBC % Seg Neutrophils # Seg Neutrophils # Man Lymphocytes # (Manual) Monocytes # (Manual) Eosinophils # (Manual) PT INR APTT Heparin Anti-Xa Level ABG pH 7.193 L* ABG pO2 ABG HCO3 16.4 L ABG O2 Saturation ABG Base Excess -11.2 L ABG Hemoglobin 10.2 L Oxyhemoglobin 94.3 L Sodium Potassium Chloride 108.5 H Carbon Dioxide 16 L BUN 73 H Creatinine 4.3 H Glucose 167 H POC Glucose 199 H Calcium 8.0 L Phosphorus Magnesium Alkaline Phosphatase Total Protein Albumin Triglycerides Lipase Urine WBC (Auto) Urine Creatinine Urine Total Protein Crossmatch 02/14/20 02/14/20 02/14/20 04:29 05:26 12:11 WBC 14.4 H RBC Hgb Hct MCHC RDW 15.3 H Plt Count Lymph % (Auto) [place] % (Auto) [place] # Seg Neutrophils % Seg Neuts % (Manual) 88.0 H Lymphocytes % (Manual) 6.0 L Monocytes % (Manual) Nucleated RBC % Seg Neutrophils # Seg Neutrophils # Man 12.7 H Lymphocytes # (Manual) 0.9 L Monocytes # (Manual) Eosinophils # (Manual) PT INR APTT Heparin Anti-Xa Level ABG pH ABG pO2 ABG HCO3 ABG O2 Saturation ABG Base Excess ABG Hemoglobin Oxyhemoglobin Sodium Potassium Chloride Carbon Dioxide BUN Creatinine Glucose POC Glucose 177 H 160 H Calcium Phosphorus Magnesium Alkaline Phosphatase Total Protein Albumin Triglycerides Lipase Urine WBC (Auto) Urine Creatinine Urine Total Protein Crossmatch 02/14/20 02/14/20 02/15/20 18:34 23:18 03:19 WBC RBC Hgb Hct MCHC RDW Plt Count Lymph % (Auto) [place] % (Auto) [place] # Seg Neutrophils % Seg Neuts % (Manual) Lymphocytes % (Manual) Monocytes % (Manual) Nucleated RBC % Seg Neutrophils # Seg Neutrophils # Man Lymphocytes # (Manual) Monocytes # (Manual) Eosinophils # (Manual) PT INR APTT Heparin Anti-Xa Level ABG pH 7.246 L ABG pO2 ABG HCO3 13.7 L ABG O2 Saturation ABG Base Excess -12.5 L ABG Hemoglobin 8.4 L Oxyhemoglobin 94.6 L Sodium Potassium Chloride Carbon Dioxide BUN Creatinine Glucose POC Glucose 135 H 138 H Calcium Phosphorus Magnesium Alkaline Phosphatase Total Protein Albumin Triglycerides Lipase Urine WBC (Auto) Urine Creatinine Urine Total Protein Crossmatch 02/15/20 02/15/20 02/15/20 04:28 04:28 05:35 WBC RBC 2.88 L Hgb 8.6 L Hct 25.4 L D MCHC RDW 15.6 H Plt Count Lymph % (Auto) [place] % (Auto) [place] # Seg Neutrophils % Seg Neuts % (Manual) Lymphocytes % (Manual) Monocytes % (Manual) Nucleated RBC % Seg Neutrophils # Seg Neutrophils # Man Lymphocytes # (Manual) Monocytes # (Manual) Eosinophils # (Manual) PT INR APTT Heparin Anti-Xa Level ABG pH ABG pO2 ABG HCO3 ABG O2 Saturation ABG Base Excess ABG Hemoglobin Oxyhemoglobin Sodium Potassium Chloride Carbon Dioxide 12 L BUN 72 H Creatinine 4.7 H Glucose 147 H POC Glucose 181 H Calcium 7.9 L Phosphorus Magnesium Alkaline Phosphatase Total Protein Albumin Triglycerides Lipase Urine WBC (Auto) Urine Creatinine Urine Total Protein Crossmatch 02/15/20 02/15/20 02/15/20 12:07 17:50 23:18 WBC RBC Hgb Hct MCHC RDW Plt Count Lymph % (Auto) [place] % (Auto) [place] # Seg Neutrophils % Seg Neuts % (Manual) Lymphocytes % (Manual) Monocytes % (Manual) Nucleated RBC % Seg Neutrophils # Seg Neutrophils # Man Lymphocytes # (Manual) Monocytes # (Manual) Eosinophils # (Manual) PT INR APTT Heparin Anti-Xa Level ABG pH ABG pO2 ABG HCO3 ABG O2 Saturation ABG Base Excess ABG Hemoglobin Oxyhemoglobin Sodium Potassium Chloride Carbon Dioxide BUN Creatinine Glucose POC Glucose 136 H 177 H 284 H Calcium Phosphorus Magnesium Alkaline Phosphatase Total Protein Albumin Triglycerides Lipase Urine WBC (Auto) Urine Creatinine Urine Total Protein Crossmatch 02/16/20 02/16/20 02/16/20 04:20 05:24 05:29 WBC RBC Hgb Hct MCHC RDW Plt Count Lymph % (Auto) [place] % (Auto) [place] # Seg Neutrophils % Seg Neuts % (Manual) Lymphocytes % (Manual) Monocytes % (Manual) Nucleated RBC % Seg Neutrophils # Seg Neutrophils # Man Lymphocytes # (Manual) Monocytes # (Manual) Eosinophils # (Manual) PT INR APTT Heparin Anti-Xa Level ABG pH ABG pO2 77.4 L ABG HCO3 ABG O2 Saturation ABG Base Excess -4.7 L ABG Hemoglobin 5.0 L Oxyhemoglobin Sodium 135 L Potassium 3.0 L D Chloride 90.7 L Carbon Dioxide BUN 64 H Creatinine 4.7 H Glucose 491 H POC Glucose 282 H Calcium 7.2 L Phosphorus Magnesium Alkaline Phosphatase Total Protein Albumin Triglycerides Lipase Urine WBC (Auto) Urine Creatinine Urine Total Protein Crossmatch 02/16/20 02/16/20 02/16/20 05:29 05:29 08:39 WBC RBC 2.31 L Hgb 7.2 L Hct 20.2 L MCHC 36 H RDW 15.3 H Plt Count 115 L Lymph % (Auto) [place] % (Auto) [place] # Seg Neutrophils % Seg Neuts % (Manual) Lymphocytes % (Manual) Monocytes % (Manual) Nucleated RBC % Seg Neutrophils # Seg Neutrophils # Man Lymphocytes # (Manual) Monocytes # (Manual) Eosinophils # (Manual) PT INR APTT Heparin Anti-Xa Level ABG pH ABG pO2 ABG HCO3 ABG O2 Saturation ABG Base Excess ABG Hemoglobin Oxyhemoglobin Sodium Potassium Chloride Carbon Dioxide BUN Creatinine Glucose POC Glucose Calcium Phosphorus Magnesium Alkaline Phosphatase Total Protein Albumin Triglycerides 716 H Lipase Urine WBC (Auto) Urine Creatinine Urine Total Protein Crossmatch See Detail 02/16/20 02/16/20 02/17/20 12:27 19:04 00:02 WBC RBC Hgb Hct MCHC RDW Plt Count Lymph % (Auto) [place] % (Auto) [place] # Seg Neutrophils % Seg Neuts % (Manual) Lymphocytes % (Manual) Monocytes % (Manual) Nucleated RBC % Seg Neutrophils # Seg Neutrophils # Man Lymphocytes # (Manual) Monocytes # (Manual) Eosinophils # (Manual) PT INR APTT Heparin Anti-Xa Level ABG pH ABG pO2 ABG HCO3 ABG O2 Saturation ABG Base Excess ABG Hemoglobin Oxyhemoglobin Sodium Potassium Chloride Carbon Dioxide BUN Creatinine Glucose POC Glucose 314 H 203 H 202 H Calcium Phosphorus Magnesium Alkaline Phosphatase Total Protein Albumin Triglycerides Lipase Urine WBC (Auto) Urine Creatinine Urine Total Protein Crossmatch 02/17/20 02/17/20 02/17/20 03:45 03:45 03:45 WBC RBC Hgb 9.9 L Hct 30.1 L D MCHC RDW Plt Count Lymph % (Auto) [place] % (Auto) [place] # Seg Neutrophils % Seg Neuts % (Manual) Lymphocytes % (Manual) Monocytes % (Manual) Nucleated RBC % Seg Neutrophils # Seg Neutrophils # Man Lymphocytes # (Manual) Monocytes # (Manual) Eosinophils # (Manual) PT INR APTT Heparin Anti-Xa Level ABG pH ABG pO2 ABG HCO3 ABG O2 Saturation ABG Base Excess ABG Hemoglobin Oxyhemoglobin Sodium Potassium Chloride Carbon Dioxide 21 L BUN 63 H Creatinine 5.2 H Glucose 134 H POC Glucose Calcium 7.6 L Phosphorus Magnesium Alkaline Phosphatase Total Protein Albumin Triglycerides 238 H Lipase Urine WBC (Auto) Urine Creatinine Urine Total Protein Crossmatch 02/17/20 02/17/20 02/17/20 04:06 05:21 12:08 WBC RBC Hgb Hct MCHC RDW Plt Count Lymph % (Auto) [place] % (Auto) [place] # Seg Neutrophils % Seg Neuts % (Manual) Lymphocytes % (Manual) Monocytes % (Manual) Nucleated RBC % Seg Neutrophils # Seg Neutrophils # Man Lymphocytes # (Manual) Monocytes # (Manual) Eosinophils # (Manual) PT INR APTT Heparin Anti-Xa Level ABG pH 7.288 L ABG pO2 ABG HCO3 ABG O2 Saturation ABG Base Excess -4.9 L ABG Hemoglobin 9.7 L Oxyhemoglobin 94.0 L Sodium Potassium Chloride Carbon Dioxide BUN Creatinine Glucose POC Glucose 132 H 141 H Calcium Phosphorus Magnesium Alkaline Phosphatase Total Protein Albumin Triglycerides Lipase Urine WBC (Auto) Urine Creatinine Urine Total Protein Crossmatch 02/17/20 02/17/20 02/17/20 18:07 19:54 23:13 WBC RBC Hgb Hct MCHC RDW Plt Count Lymph % (Auto) [place] % (Auto) [place] # Seg Neutrophils % Seg Neuts % (Manual) Lymphocytes % (Manual) Monocytes % (Manual) Nucleated RBC % Seg Neutrophils # Seg Neutrophils # Man Lymphocytes # (Manual) Monocytes # (Manual) Eosinophils # (Manual) PT INR APTT Heparin Anti-Xa Level < 0.10 L ABG pH ABG pO2 ABG HCO3 ABG O2 Saturation ABG Base Excess ABG Hemoglobin Oxyhemoglobin Sodium Potassium Chloride Carbon Dioxide BUN Creatinine Glucose POC Glucose 189 H 167 H Calcium Phosphorus Magnesium Alkaline Phosphatase Total Protein Albumin Triglycerides Lipase Urine WBC (Auto) Urine Creatinine Urine Total Protein Crossmatch 02/18/20 02/18/20 02/18/20 03:41 04:37 05:44 WBC RBC Hgb Hct MCHC RDW Plt Count Lymph % (Auto) [place] % (Auto) [place] # Seg Neutrophils % Seg Neuts % (Manual) Lymphocytes % (Manual) Monocytes % (Manual) Nucleated RBC % Seg Neutrophils # Seg Neutrophils # Man Lymphocytes # (Manual) Monocytes # (Manual) Eosinophils # (Manual) PT INR APTT Heparin Anti-Xa Level ABG pH 7.281 L ABG pO2 74.5 L ABG HCO3 16.2 L ABG O2 Saturation 94.3 L ABG Base Excess -9.7 L ABG Hemoglobin 9.8 L Oxyhemoglobin 92.1 L Sodium Potassium Chloride Carbon Dioxide 15 L BUN 65 H Creatinine 5.1 H Glucose 117 H POC Glucose 112 H Calcium 7.7 L Phosphorus Magnesium Alkaline Phosphatase Total Protein Albumin Triglycerides Lipase Urine WBC (Auto) Urine Creatinine Urine Total Protein Crossmatch 02/18/20 02/18/20 02/18/20 09:00 09:00 12:41 WBC 14.9 H RBC 2.99 L Hgb 8.8 L Hct 27.1 L MCHC RDW 15.8 H Plt Count 131 L Lymph % (Auto) [place] % (Auto) [place] # Seg Neutrophils % Seg Neuts % (Manual) Lymphocytes % (Manual) Monocytes % (Manual) Nucleated RBC % Seg Neutrophils # Seg Neutrophils # Man Lymphocytes # (Manual) Monocytes # (Manual) Eosinophils # (Manual) PT INR APTT Heparin Anti-Xa Level ABG pH ABG pO2 ABG HCO3 ABG O2 Saturation ABG Base Excess ABG Hemoglobin Oxyhemoglobin Sodium Potassium Chloride Carbon Dioxide BUN Creatinine Glucose POC Glucose 140 H Calcium Phosphorus 6.40 H Magnesium 1.30 L Alkaline Phosphatase Total Protein Albumin Triglycerides Lipase Urine WBC (Auto) Urine Creatinine Urine Total Protein Crossmatch 02/18/20 02/18/20 02/19/20 17:58 23:06 03:50 WBC RBC Hgb Hct MCHC RDW Plt Count Lymph % (Auto) [place] % (Auto) [place] # Seg Neutrophils % Seg Neuts % (Manual) Lymphocytes % (Manual) Monocytes % (Manual) Nucleated RBC % Seg Neutrophils # Seg Neutrophils # Man Lymphocytes # (Manual) Monocytes # (Manual) Eosinophils # (Manual) PT INR APTT Heparin Anti-Xa Level ABG pH 7.243 L ABG pO2 75.3 L ABG HCO3 11.8 L ABG O2 Saturation 94.0 L ABG Base Excess -14.1 L ABG Hemoglobin 9.6 L Oxyhemoglobin 91.8 L Sodium Potassium Chloride Carbon Dioxide BUN Creatinine Glucose POC Glucose 141 H 212 H Calcium Phosphorus Magnesium Alkaline Phosphatase Total Protein Albumin Triglycerides Lipase Urine WBC (Auto) Urine Creatinine Urine Total Protein Crossmatch 02/19/20 02/19/20 02/19/20 04:30 04:30 04:30 WBC 19.8 H RBC 3.19 L Hgb 9.1 L Hct 28.9 L MCHC RDW 15.5 H Plt Count Lymph % (Auto) [place] % (Auto) [place] # Seg Neutrophils % Seg Neuts % (Manual) 86.0 H Lymphocytes % (Manual) 5.0 L Monocytes % (Manual) Nucleated RBC % Seg Neutrophils # Seg Neutrophils # Man 17.0 H Lymphocytes # (Manual) 1.0 L Monocytes # (Manual) 1.4 H Eosinophils # (Manual) PT INR APTT Heparin Anti-Xa Level ABG pH ABG pO2 ABG HCO3 ABG O2 Saturation ABG Base Excess ABG Hemoglobin Oxyhemoglobin Sodium 136 L Potassium Chloride Carbon Dioxide 12 L BUN 76 H Creatinine 5.2 H Glucose 228 H POC Glucose Calcium Phosphorus 8.00 H D Magnesium Alkaline Phosphatase Total Protein Albumin Triglycerides Lipase Urine WBC (Auto) Urine Creatinine Urine Total Protein Crossmatch 02/19/20 02/19/20 02/19/20 06:19 11:37 14:00 WBC RBC Hgb Hct MCHC RDW Plt Count Lymph % (Auto) [place] % (Auto) [place] # Seg Neutrophils % Seg Neuts % (Manual) Lymphocytes % (Manual) Monocytes % (Manual) Nucleated RBC % Seg Neutrophils # Seg Neutrophils # Man Lymphocytes # (Manual) Monocytes # (Manual) Eosinophils # (Manual) PT INR APTT Heparin Anti-Xa Level ABG pH ABG pO2 ABG HCO3 ABG O2 Saturation ABG Base Excess ABG Hemoglobin Oxyhemoglobin Sodium 132 L Potassium Chloride 95.4 L Carbon Dioxide 15 L BUN 75 H Creatinine 5.2 H Glucose 526 H* POC Glucose 253 H 288 H Calcium 7.6 L Phosphorus Magnesium Alkaline Phosphatase Total Protein Albumin Triglycerides Lipase Urine WBC (Auto) Urine Creatinine Urine Total Protein Crossmatch 02/19/20 02/19/20 02/19/20 14:00 15:07 17:40 WBC RBC Hgb Hct MCHC RDW Plt Count Lymph % (Auto) [place] % (Auto) [place] # Seg Neutrophils % Seg Neuts % (Manual) Lymphocytes % (Manual) Monocytes % (Manual) Nucleated RBC % Seg Neutrophils # Seg Neutrophils # Man Lymphocytes # (Manual) Monocytes # (Manual) Eosinophils # (Manual) PT INR APTT Heparin Anti-Xa Level ABG pH ABG pO2 ABG HCO3 ABG O2 Saturation ABG Base Excess ABG Hemoglobin Oxyhemoglobin Sodium Potassium Chloride Carbon Dioxide BUN Creatinine Glucose POC Glucose 324 H 328 H Calcium Phosphorus Magnesium Alkaline Phosphatase Total Protein Albumin Triglycerides Lipase Urine WBC (Auto) 166.0 H Urine Creatinine Urine Total Protein Crossmatch 02/19/20 02/20/20 02/20/20 23:40 03:15 03:15 WBC RBC Hgb Hct MCHC RDW Plt Count Lymph % (Auto) [place] % (Auto) [place] # Seg Neutrophils % Seg Neuts % (Manual) Lymphocytes % (Manual) Monocytes % (Manual) Nucleated RBC % Seg Neutrophils # Seg Neutrophils # Man Lymphocytes # (Manual) Monocytes # (Manual) Eosinophils # (Manual) PT INR APTT Heparin Anti-Xa Level 0.19 L ABG pH ABG pO2 ABG HCO3 ABG O2 Saturation ABG Base Excess ABG Hemoglobin Oxyhemoglobin Sodium Potassium 3.5 L D Chloride Carbon Dioxide 19 L BUN 85 H Creatinine 5.4 H Glucose 353 H POC Glucose 390 H Calcium 8.3 L Phosphorus 6.50 H Magnesium Alkaline Phosphatase Total Protein Albumin Triglycerides Lipase Urine WBC (Auto) Urine Creatinine Urine Total Protein Crossmatch 02/20/20 02/20/20 02/20/20 03:15 04:29 05:21 WBC 13.6 H RBC 2.43 L Hgb 7.1 L Hct 21.3 L D MCHC RDW Plt Count 136 L Lymph % (Auto) [place] % (Auto) [place] # Seg Neutrophils % Seg Neuts % (Manual) 81.0 H Lymphocytes % (Manual) 5.0 L Monocytes % (Manual) Nucleated RBC % Seg Neutrophils # Seg Neutrophils # Man 11.0 H Lymphocytes # (Manual) 0.7 L Monocytes # (Manual) Eosinophils # (Manual) PT INR APTT Heparin Anti-Xa Level ABG pH ABG pO2 ABG HCO3 ABG O2 Saturation ABG Base Excess -3.8 L ABG Hemoglobin 6.0 L Oxyhemoglobin 94.6 L Sodium Potassium Chloride Carbon Dioxide BUN Creatinine Glucose POC Glucose 400 H Calcium Phosphorus Magnesium Alkaline Phosphatase Total Protein Albumin Triglycerides Lipase Urine WBC (Auto) Urine Creatinine Urine Total Protein Crossmatch 02/20/20 02/20/20 02/20/20 11:52 18:30 20:02 WBC RBC Hgb Hct MCHC RDW Plt Count Lymph % (Auto) [place] % (Auto) [place] # Seg Neutrophils % Seg Neuts % (Manual) Lymphocytes % (Manual) Monocytes % (Manual) Nucleated RBC % Seg Neutrophils # Seg Neutrophils # Man Lymphocytes # (Manual) Monocytes # (Manual) Eosinophils # (Manual) PT INR APTT Heparin Anti-Xa Level ABG pH ABG pO2 ABG HCO3 ABG O2 Saturation ABG Base Excess ABG Hemoglobin Oxyhemoglobin Sodium Potassium Chloride Carbon Dioxide BUN Creatinine Glucose 584 H* POC Glucose 348 H 422 H Calcium Phosphorus Magnesium Alkaline Phosphatase Total Protein Albumin Triglycerides Lipase Urine WBC (Auto) Urine Creatinine Urine Total Protein Crossmatch 02/20/20 02/21/20 02/21/20 23:31 03:53 03:53 WBC RBC Hgb 5.9 L* Hct 18.5 L* MCHC RDW Plt Count Lymph % (Auto) [place] % (Auto) [place] # Seg Neutrophils % Seg Neuts % (Manual) Lymphocytes % (Manual) Monocytes % (Manual) Nucleated RBC % Seg Neutrophils # Seg Neutrophils # Man Lymphocytes # (Manual) Monocytes # (Manual) Eosinophils # (Manual) PT INR APTT Heparin Anti-Xa Level 1.13 H ABG pH ABG pO2 ABG HCO3 ABG O2 Saturation ABG Base Excess ABG Hemoglobin Oxyhemoglobin Sodium Potassium Chloride Carbon Dioxide BUN Creatinine Glucose POC Glucose 341 H Calcium Phosphorus Magnesium Alkaline Phosphatase Total Protein Albumin Triglycerides Lipase Urine WBC (Auto) Urine Creatinine Urine Total Protein Crossmatch 02/21/20 02/21/20 02/21/20 03:53 04:16 06:00 WBC RBC Hgb Hct MCHC RDW Plt Count Lymph % (Auto) [place] % (Auto) [place] # Seg Neutrophils % Seg Neuts % (Manual) Lymphocytes % (Manual) Monocytes % (Manual) Nucleated RBC % Seg Neutrophils # Seg Neutrophils # Man Lymphocytes # (Manual) Monocytes # (Manual) Eosinophils # (Manual) PT INR APTT Heparin Anti-Xa Level ABG pH 7.318 L ABG pO2 100.0 H ABG HCO3 ABG O2 Saturation ABG Base Excess -4.4 L ABG Hemoglobin 9.1 L Oxyhemoglobin Sodium 136 L Potassium Chloride 97.5 L Carbon Dioxide 21 L BUN 97 H Creatinine 5.3 H Glucose 246 H POC Glucose Calcium 8.1 L Phosphorus Magnesium Alkaline Phosphatase Total Protein Albumin Triglycerides Lipase Urine WBC (Auto) Urine Creatinine Urine Total Protein Crossmatch See Detail 02/21/20 02/21/20 02/21/20 06:32 11:45 17:40 WBC RBC Hgb Hct MCHC RDW Plt Count Lymph % (Auto) [place] % (Auto) [place] # Seg Neutrophils % Seg Neuts % (Manual) Lymphocytes % (Manual) Monocytes % (Manual) Nucleated RBC % Seg Neutrophils # Seg Neutrophils # Man Lymphocytes # (Manual) Monocytes # (Manual) Eosinophils # (Manual) PT INR APTT Heparin Anti-Xa Level ABG pH ABG pO2 ABG HCO3 ABG O2 Saturation ABG Base Excess ABG Hemoglobin Oxyhemoglobin Sodium Potassium Chloride Carbon Dioxide BUN Creatinine Glucose POC Glucose 317 H 389 H 387 H Calcium Phosphorus Magnesium Alkaline Phosphatase Total Protein Albumin Triglycerides Lipase Urine WBC (Auto) Urine Creatinine Urine Total Protein Crossmatch 02/21/20 02/22/20 02/22/20 23:37 03:16 03:16 WBC 22.8 H RBC 2.49 L Hgb 7.4 L Hct 22.7 L MCHC RDW 15.6 H Plt Count Lymph % (Auto) [place] % (Auto) [place] # Seg Neutrophils % Seg Neuts % (Manual) 74.0 H Lymphocytes % (Manual) 8.5 L Monocytes % (Manual) 13.5 H Nucleated RBC % 2.5 H Seg Neutrophils # Seg Neutrophils # Man 16.9 H Lymphocytes # (Manual) Monocytes # (Manual) 3.1 H Eosinophils # (Manual) 0.5 H PT INR APTT Heparin Anti-Xa Level 0.27 L ABG pH ABG pO2 ABG HCO3 ABG O2 Saturation ABG Base Excess ABG Hemoglobin Oxyhemoglobin Sodium Potassium Chloride Carbon Dioxide BUN Creatinine Glucose POC Glucose 297 H Calcium Phosphorus Magnesium Alkaline Phosphatase Total Protein Albumin Triglycerides Lipase Urine WBC (Auto) Urine Creatinine Urine Total Protein Crossmatch 02/22/20 02/22/20 02/22/20 03:16 05:16 11:50 WBC RBC Hgb Hct MCHC RDW Plt Count Lymph % (Auto) [place] % (Auto) [place] # Seg Neutrophils % Seg Neuts % (Manual) Lymphocytes % (Manual) Monocytes % (Manual) Nucleated RBC % Seg Neutrophils # Seg Neutrophils # Man Lymphocytes # (Manual) Monocytes # (Manual) Eosinophils # (Manual) PT INR APTT Heparin Anti-Xa Level ABG pH ABG pO2 ABG HCO3 ABG O2 Saturation ABG Base Excess ABG Hemoglobin Oxyhemoglobin Sodium 135 L Potassium Chloride 95.2 L Carbon Dioxide BUN 83 H Creatinine 4.3 H Glucose 264 H POC Glucose 321 H 351 H Calcium 8.1 L Phosphorus 4.60 H Magnesium Alkaline Phosphatase Total Protein Albumin Triglycerides Lipase Urine WBC (Auto) Urine Creatinine Urine Total Protein Crossmatch 02/22/20 02/23/20 02/23/20 17:26 00:04 02:55 WBC 25.6 H RBC 1.86 L Hgb 5.7 L* Hct 17.3 L* MCHC RDW 16.0 H Plt Count Lymph % (Auto) [place] % (Auto) [place] # Seg Neutrophils % Seg Neuts % (Manual) 80.5 H Lymphocytes % (Manual) 9.5 L Monocytes % (Manual) Nucleated RBC % 1.0 H Seg Neutrophils # Seg Neutrophils # Man 20.6 H Lymphocytes # (Manual) Monocytes # (Manual) 1.5 H Eosinophils # (Manual) PT INR APTT Heparin Anti-Xa Level ABG pH ABG pO2 ABG HCO3 ABG O2 Saturation ABG Base Excess ABG Hemoglobin Oxyhemoglobin Sodium Potassium Chloride Carbon Dioxide BUN Creatinine Glucose POC Glucose 356 H 359 H Calcium Phosphorus Magnesium Alkaline Phosphatase Total Protein Albumin Triglycerides Lipase Urine WBC (Auto) Urine Creatinine Urine Total Protein Crossmatch 02/23/20 02/23/20 02/23/20 02:55 02:55 05:33 WBC RBC Hgb Hct MCHC RDW Plt Count Lymph % (Auto) [place] % (Auto) [place] # Seg Neutrophils % Seg Neuts % (Manual) Lymphocytes % (Manual) Monocytes % (Manual) Nucleated RBC % Seg Neutrophils # Seg Neutrophils # Man Lymphocytes # (Manual) Monocytes # (Manual) Eosinophils # (Manual) PT INR APTT Heparin Anti-Xa Level 0.15 L ABG pH ABG pO2 ABG HCO3 ABG O2 Saturation ABG Base Excess ABG Hemoglobin Oxyhemoglobin Sodium 130 L Potassium Chloride 92.8 L Carbon Dioxide BUN 94 H Creatinine 4.7 H Glucose 293 H POC Glucose 330 H Calcium Phosphorus Magnesium Alkaline Phosphatase Total Protein Albumin Triglycerides Lipase Urine WBC (Auto) Urine Creatinine Urine Total Protein Crossmatch 02/23/20 02/23/20 02/23/20 12:03 13:13 18:34 WBC 24.2 H RBC 2.61 L Hgb 8.3 L Hct 24.4 L D MCHC RDW Plt Count 125 L Lymph % (Auto) [place] % (Auto) [place] # Seg Neutrophils % Seg Neuts % (Manual) Lymphocytes % (Manual) Monocytes % (Manual) Nucleated RBC % Seg Neutrophils # Seg Neutrophils # Man Lymphocytes # (Manual) Monocytes # (Manual) Eosinophils # (Manual) PT INR APTT Heparin Anti-Xa Level ABG pH ABG pO2 ABG HCO3 ABG O2 Saturation ABG Base Excess ABG Hemoglobin Oxyhemoglobin Sodium Potassium Chloride Carbon Dioxide BUN Creatinine Glucose POC Glucose 310 H 337 H Calcium Phosphorus Magnesium Alkaline Phosphatase Total Protein Albumin Triglycerides Lipase Urine WBC (Auto) Urine Creatinine Urine Total Protein Crossmatch 02/23/20 02/24/20 02/24/20 22:28 05:25 05:40 WBC 21.0 H RBC 2.40 L Hgb 7.3 L Hct 23.4 L MCHC RDW 15.8 H Plt Count 120 L Lymph % (Auto) [place] % (Auto) [place] # Seg Neutrophils % Seg Neuts % (Manual) 87.0 H Lymphocytes % (Manual) 5.0 L Monocytes % (Manual) Nucleated RBC % 1.0 H Seg Neutrophils # Seg Neutrophils # Man 18.3 H Lymphocytes # (Manual) 1.1 L Monocytes # (Manual) 1.1 H Eosinophils # (Manual) PT INR APTT Heparin Anti-Xa Level ABG pH ABG pO2 ABG HCO3 ABG O2 Saturation ABG Base Excess ABG Hemoglobin Oxyhemoglobin Sodium Potassium Chloride Carbon Dioxide BUN Creatinine Glucose POC Glucose 314 H 307 H Calcium Phosphorus Magnesium Alkaline Phosphatase Total Protein Albumin Triglycerides Lipase Urine WBC (Auto) Urine Creatinine Urine Total Protein Crossmatch 02/24/20 02/24/20 02/24/20 05:40 09:05 12:11 WBC RBC Hgb Hct MCHC RDW Plt Count Lymph % (Auto) [place] % (Auto) [place] # Seg Neutrophils % Seg Neuts % (Manual) Lymphocytes % (Manual) Monocytes % (Manual) Nucleated RBC % Seg Neutrophils # Seg Neutrophils # Man Lymphocytes # (Manual) Monocytes # (Manual) Eosinophils # (Manual) PT INR APTT Heparin Anti-Xa Level ABG pH ABG pO2 ABG HCO3 ABG O2 Saturation ABG Base Excess ABG Hemoglobin Oxyhemoglobin Sodium 123 L D 134 L D Potassium 6.8 H* D Chloride 88.1 L 96 L Carbon Dioxide 19 L BUN 83 H 89 H Creatinine 3.9 H 4.2 H Glucose 657 H* 262 H POC Glucose 217 H Calcium 8.1 L Phosphorus 4.90 H Magnesium 2.50 H Alkaline Phosphatase Total Protein Albumin Triglycerides Lipase Urine WBC (Auto) Urine Creatinine Urine Total Protein Crossmatch 02/24/20 02/24/20 02/25/20 17:58 23:23 05:25 WBC 25.3 H RBC 2.59 L Hgb 8.1 L Hct 23.9 L MCHC RDW Plt Count Lymph % (Auto) [place] % (Auto) [place] # Seg Neutrophils % Seg Neuts % (Manual) 87.0 H Lymphocytes % (Manual) 6.0 L Monocytes % (Manual) Nucleated RBC % Seg Neutrophils # Seg Neutrophils # Man 22.0 H Lymphocytes # (Manual) Monocytes # (Manual) 1.5 H Eosinophils # (Manual) PT INR APTT Heparin Anti-Xa Level ABG pH ABG pO2 ABG HCO3 ABG O2 Saturation ABG Base Excess ABG Hemoglobin Oxyhemoglobin Sodium Potassium Chloride Carbon Dioxide BUN Creatinine Glucose POC Glucose 236 H 223 H Calcium Phosphorus Magnesium Alkaline Phosphatase Total Protein Albumin Triglycerides Lipase Urine WBC (Auto) Urine Creatinine Urine Total Protein Crossmatch 02/25/20 02/25/20 02/25/20 05:25 05:40 11:47 WBC RBC Hgb Hct MCHC RDW Plt Count Lymph % (Auto) [place] % (Auto) [place] # Seg Neutrophils % Seg Neuts % (Manual) Lymphocytes % (Manual) Monocytes % (Manual) Nucleated RBC % Seg Neutrophils # Seg Neutrophils # Man Lymphocytes # (Manual) Monocytes # (Manual) Eosinophils # (Manual) PT INR APTT Heparin Anti-Xa Level ABG pH ABG pO2 ABG HCO3 ABG O2 Saturation ABG Base Excess ABG Hemoglobin Oxyhemoglobin Sodium 132 L Potassium Chloride 94.9 L Carbon Dioxide BUN 100 H Creatinine 4.9 H Glucose 174 H POC Glucose 173 H 154 H Calcium Phosphorus Magnesium Alkaline Phosphatase Total Protein 5.0 L Albumin 2.3 L Triglycerides Lipase Urine WBC (Auto) Urine Creatinine Urine Total Protein Crossmatch 02/25/20 02/25/20 02/26/20 17:53 23:49 05:00 WBC 16.2 H RBC 2.36 L Hgb 7.4 L Hct 22.0 L MCHC RDW 15.5 H Plt Count Lymph % (Auto) 7.8 L [place] % (Auto) 8.5 H [place] # 1.4 H Seg Neutrophils % 83.1 H Seg Neuts % (Manual) Lymphocytes % (Manual) Monocytes % (Manual) Nucleated RBC % Seg Neutrophils # 13.5 H Seg Neutrophils # Man Lymphocytes # (Manual) Monocytes # (Manual) Eosinophils # (Manual) PT INR APTT Heparin Anti-Xa Level ABG pH ABG pO2 ABG HCO3 ABG O2 Saturation ABG Base Excess ABG Hemoglobin Oxyhemoglobin Sodium Potassium Chloride Carbon Dioxide BUN Creatinine Glucose POC Glucose 131 H 124 H Calcium Phosphorus Magnesium Alkaline Phosphatase Total Protein Albumin Triglycerides Lipase Urine WBC (Auto) Urine Creatinine Urine Total Protein Crossmatch 02/26/20 02/26/20 02/26/20 05:00 17:25 23:19 WBC RBC Hgb Hct MCHC RDW Plt Count Lymph % (Auto) [place] % (Auto) [place] # Seg Neutrophils % Seg Neuts % (Manual) Lymphocytes % (Manual) Monocytes % (Manual) Nucleated RBC % Seg Neutrophils # Seg Neutrophils # Man Lymphocytes # (Manual) Monocytes # (Manual) Eosinophils # (Manual) PT INR APTT Heparin Anti-Xa Level ABG pH ABG pO2 ABG HCO3 ABG O2 Saturation ABG Base Excess ABG Hemoglobin Oxyhemoglobin Sodium Potassium Chloride Carbon Dioxide BUN 74 H Creatinine 4.1 H Glucose POC Glucose 123 H 130 H Calcium Phosphorus Magnesium Alkaline Phosphatase Total Protein Albumin Triglycerides Lipase Urine WBC (Auto) Urine Creatinine Urine Total Protein Crossmatch 02/27/20 05:40 WBC RBC Hgb Hct MCHC RDW Plt Count Lymph % (Auto) [place] % (Auto) [place] # Seg Neutrophils % Seg Neuts % (Manual) Lymphocytes % (Manual) Monocytes % (Manual) Nucleated RBC % Seg Neutrophils # Seg Neutrophils # Man Lymphocytes # (Manual) Monocytes # (Manual) Eosinophils # (Manual) PT INR APTT Heparin Anti-Xa Level ABG pH ABG pO2 ABG HCO3 ABG O2 Saturation ABG Base Excess ABG Hemoglobin Oxyhemoglobin Sodium Potassium Chloride Carbon Dioxide BUN Creatinine Glucose POC Glucose 203 H Calcium Phosphorus Magnesium Alkaline Phosphatase Total Protein Albumin Triglycerides Lipase Urine WBC (Auto) Urine Creatinine Urine Total Protein Crossmatch
[2020-02-27] MEDS: ACETAMINOPHEN 325 MG TAB PO PRN (12:00)
--- NOTE | 2020-02-27 13:12 | XRay Report ---
CHEST 1 VIEW 02/27/2020 10:25 AM INDICATION / CLINICAL INFORMATION: Fever. COMPARISON: 02/20/2020 FINDINGS: SUPPORT DEVICES: Stable satisfactory device positioning. HEART / MEDIASTINUM: Stable. LUNGS / PLEURA: No significant pulmonary or pleural abnormality. No pneumothorax. ADDITIONAL FINDINGS: No significant additional findings. IMPRESSION: 1. No acute findings. Signer Name: Gray Cunningham MD Signed: 02/27/2020 1:08 PM Workstation Name: [id number]
--- NOTE | 2020-02-27 16:16 | Progress Note ---
Assessment and Plan - Patient Problems (1) Ischemic necrosis of small bowel Current Visit: Yes Status: Acute Plan to address problem: Assessment and Plan 74-year-old female status post 1. Exploratory laparotomy, enterocolonic anastamosis, closure of abdomen, application of wound vac, POD 11 2. Exploratory laparotomy, extensive small bowel resection, partial colon resection, placement of abthera vac, placement of right radial arterial line, 02/13/20 1. bowel ischemia with gangrene 2. sepsis 3. LITZY 4. Afib with RVR 5. Tobacco dependence 6. Venous duplex - L superficial femoral vein nonocclusive thrombus 7. Cdiff + 8. Protein calorie malnutrition CXR 02/20/20 - no residual disease CT C/A/P 02/19/20 - post operative changes of right colon. Anastamosis is intact. Generalized edema of abdominal wall. Pt currently hemodynamically stable. Tolerating TF at goal, having bowel function. Abdominal exam is benign. Febrile Plan: 1. neuro - Continue as needed pain control - fent gtt off, ativan and dilaudid prn ordered. Pt still with AMS 2. CV - cardiology on board for Afib. monitor H/H. Eliquis started 3. Resp - vent management per ICU team 4. GI - Cont TF via NGT. Hold if residual >250cc. Continue incisional wound VAC . GI ppx - protonix IV 5. - strict I/Os. Nephrology on board, HD started. 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 ID - continue abx per ID. Blcx 02/23 - staph epidemidis. ?contaminant. Repeat Blcx. Unable to remove PICC and replace due to edema. Consider removing HD access. COVID testing is negative. Multiple possible sources of fever - lines and/or clot. Obtain CBC in am. 7. Endo - strict glucose control 8. Musc - turning q2 as per protocol, skin breakdown precautions, SCDs. 9. FEN - Cont TF@goal, Replace lytes as needed. LTACH planning in progress. Doctor Naturopathic notes reviewed and recs appreciated. Prognosis is guarded Thank you, please call with questions. Subjective Date of service: 02/27/20 Narrative: Pt seen and examined. Persistent fevers. Remains on full vent support. Tolerating TF and having BMs. Objective Vital Signs - 12hr 02/27/20 02/27/20 02/27/20 04:14 04:23 04:30 Temperature Pulse Rate 132 H 131 H Respiratory 34 H Rate Blood Pressure 189/108 187/107 O2 Sat by Pulse 97 97 97 Oximetry 02/27/20 02/27/20 02/27/20 04:39 05:00 05:30 Temperature Pulse Rate 124 H 126 H 120 H Respiratory 31 H 32 H Rate Blood Pressure 187/107 179/111 171/105 O2 Sat by Pulse 97 96 Oximetry 02/27/20 02/27/20 02/27/20 06:00 06:30 07:00 Temperature Pulse Rate 119 H 118 H 122 H Respiratory 33 H 30 H 30 H Rate Blood Pressure 191/105 172/96 165/98 O2 Sat by Pulse 97 97 98 Oximetry 02/27/20 02/27/20 02/27/20 07:30 07:48 08:00 Temperature 102.4 F H Pulse Rate 115 H 127 H 118 H Respiratory 38 H 32 H Rate Blood Pressure 165/98 162/97 163/93 O2 Sat by Pulse 98 98 98 Oximetry 02/27/20 02/27/20 02/27/20 08:30 09:00 09:30 Temperature Pulse Rate 124 H 121 H 123 H Respiratory 27 H 34 H 39 H Rate Blood Pressure 161/95 162/91 162/85 O2 Sat by Pulse 98 98 98 Oximetry 02/27/20 02/27/20 02/27/20 10:00 10:30 11:00 Temperature Pulse Rate 119 H 119 H 119 H Respiratory 40 H 29 H 41 H Rate Blood Pressure 153/87 152/87 153/93 O2 Sat by Pulse 98 98 98 Oximetry 02/27/20 02/27/20 02/27/20 11:30 12:00 12:04 Temperature 102.9 F H Pulse Rate 119 H 120 H 124 H Respiratory 35 H 23 Rate Blood Pressure 151/78 151/74 151/74 O2 Sat by Pulse 98 98 Oximetry 02/27/20 02/27/20 02/27/20 12:30 12:50 13:00 Temperature Pulse Rate 117 H 107 H 111 H Respiratory 34 H 29 H Rate Blood Pressure 150/80 136/66 141/60 O2 Sat by Pulse 98 99 98 Oximetry 02/27/20 02/27/20 13:30 14:00 Temperature Pulse Rate 110 H 105 H Respiratory 29 H 43 H Rate Blood Pressure 137/69 135/73 O2 Sat by Pulse 98 99 Oximetry - General physical appearance Narrative Exam: Gen: Intubated. Opens eyes to name. Does not follow commands ENT: ETT and NGT in place. R sided HD catheter CV: S1, S2+. Tachy Resp: on vent Abd: soft, NT, ND. Incisional wound vac in place with good seal, no leak - scant serosang drainage Ext: + edema of UE and LE : corcoran with clear yellow urine Rectal: rectal tube with brown liquid stool - Labs 02/26/20 05:00 02/26/20 05:00
--- NOTE | 2020-02-27 16:43 | Progress Note ---
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 * leucocytosis * type 2 DM--uncontrolled * Acidosis * Hypokalemia * Hypocalcemia * Anemia * C diff + * Gram Positive Bacteremia Plan: * Remain hopeful for renal recovery with minimal HD needs in near future, urine output 1.0L noted yesterday * Tolerated HD well on 02/20, 02/22, 02/24 with reasonable UF * Unable to perform HD today due to issues with CVC; given bacteremia and CVC issues, ok to remove temp CVC at this time. Will closely follow labs and urine output but hopefully can limit HD moving forward * No labs for review today, will add to AM labs * Insulin control per primary * Continue iv abx per ID recs * Surgery recs appreciated * PRBC transfusion prn per primary, holding heparin gtt * Daily lytes; strict i/os * Avoid nephrotoxins * vasopressors prn Thank for involving in the care of this critically ill patient. We will follow closely with you; please do not hesitate to call me on my cell at for any renal related issues. High risk for decompensation given clinical status Subjective Date of service: 02/27/20 Principal diagnosis: Ischemic Bowel Interval history: Chart reviewed for 24 hour events Objective - Exam Narrative Exam: Gen: Intubated, opens eyes ENT: ETT in place CV: s1, S2 Resp: on vent Abd: soft Ext: no c/c/e : corcoran with clear yellow urine Neuro: opens eye spontaneously - Vital Signs Vital signs: Vital Signs - 12hr 02/27/20 02/27/20 02/27/20 05:00 05:30 06:00 Temperature Pulse Rate 126 H 120 H 119 H Respiratory 31 H 32 H 33 H Rate Blood Pressure 179/111 171/105 191/105 O2 Sat by Pulse 97 96 97 Oximetry O2 Sat by Pulse Oximetry [ Bilateral Throughout] 02/27/20 02/27/20 02/27/20 06:30 07:00 07:30 Temperature Pulse Rate 118 H 122 H 115 H Respiratory 30 H 30 H 38 H Rate Blood Pressure 172/96 165/98 165/98 O2 Sat by Pulse 97 98 98 Oximetry O2 Sat by Pulse Oximetry [ Bilateral Throughout] 02/27/20 02/27/20 02/27/20 07:48 08:00 08:30 Temperature 102.4 F H Pulse Rate 127 H 118 H 124 H Respiratory 32 H 27 H Rate Blood Pressure 162/97 163/93 161/95 O2 Sat by Pulse 98 98 98 Oximetry O2 Sat by Pulse Oximetry [ Bilateral Throughout] 02/27/20 02/27/20 02/27/20 09:00 09:30 10:00 Temperature Pulse Rate 121 H 123 H 119 H Respiratory 34 H 39 H 40 H Rate Blood Pressure 162/91 162/85 153/87 O2 Sat by Pulse 98 98 98 Oximetry O2 Sat by Pulse Oximetry [ Bilateral Throughout] 02/27/20 02/27/20 02/27/20 10:30 11:00 11:30 Temperature Pulse Rate 119 H 119 H 119 H Respiratory 29 H 41 H 35 H Rate Blood Pressure 152/87 153/93 151/78 O2 Sat by Pulse 98 98 98 Oximetry O2 Sat by Pulse Oximetry [ Bilateral Throughout] 02/27/20 02/27/20 02/27/20 12:00 12:04 12:30 Temperature 102.9 F H Pulse Rate 120 H 124 H 117 H Respiratory 23 34 H Rate Blood Pressure 151/74 151/74 150/80 O2 Sat by Pulse 98 98 Oximetry O2 Sat by Pulse Oximetry [ Bilateral Throughout] 02/27/20 02/27/20 02/27/20 12:50 13:00 13:30 Temperature Pulse Rate 107 H 111 H 110 H Respiratory 29 H 29 H Rate Blood Pressure 136/66 141/60 137/69 O2 Sat by Pulse 99 98 98 Oximetry O2 Sat by Pulse Oximetry [ Bilateral Throughout] 02/27/20 02/27/20 14:00 15:05 Temperature 101.3 F H Pulse Rate 105 H 102 H Respiratory 43 H 20 Rate Blood Pressure 135/73 145/80 O2 Sat by Pulse 99 Oximetry O2 Sat by Pulse 99 Oximetry [ Bilateral Throughout] - Lab 02/26/20 05:00 02/26/20 05:00 Most recent lab results ABG pH 7.318 pH Units (7.350-7.450) L 02/21/20 04:16 ABG pCO2 42.7 mm Hg 02/21/20 04:16 ABG pO2 100.0 mm Hg (80.0-90.0) H 02/21/20 04:16 ABG HCO3 21.4 mmol/L (20.0-26.0) 02/21/20 04:16 ABG O2 Saturation 97.2 % (95.0-99.0) 02/21/20 04:16 Calcium 8.5 mg/dL (8.4-10.2) 02/26/20 05:00 Phosphorus 4.90 mg/dL (2.5-4.5) H 02/24/20 05:40 Magnesium 2.20 mg/dL (1.7-2.3) 02/25/20 05:25 Urine Creatinine 35.3 mg/dL (0.1-20.0) H 02/12/20 Unknown Urine Total Protein 796 mg/dL (5-11.8) H 02/12/20 Unknown Medications & Allergies - Medications Allergies/Adverse Reactions: Allergies clindamycin Allergy (Verified 02/11/20 14:52) Hives Home Medications: Home Medications Medication Instructions Recorded Confirmed Last Taken Type Doxazosin [Cardura] 4 mg PO QDAY 02/11/20 02/11/20 02/10/20 History Hydralazine HCl 50 mg PO DAILY 02/11/20 02/11/20 02/10/20 History Metoprolol 25 mg PO DAILY 02/11/20 02/11/20 02/10/20 History Sertraline [Zoloft] 50 mg PO QDAY 02/11/20 02/11/20 02/10/20 History amLODIPine [Norvasc] 10 mg PO DAILY 02/11/20 02/11/20 02/10/20 History glipiZIDE 10 mg PO BID 02/11/20 02/11/20 02/10/20 History Active Medications: Generic Name Dose Route Start Last Admin Trade Name Freq PRN Reason Stop Dose Admin Acetaminophen 650 mg 02/11/20 19:01 02/27/20 12:00 Tylenol PO 650 mg Q4H PRN Administration Pain MILD(1-3)/Fever >100.5/ADAMS Amiodarone HCl 200 mg 02/24/20 10:00 02/27/20 11:09 Cordarone PO 200 mg QDAY NADER Administration Lipase/Protease/Amylase 1 each 02/20/20 10:[address] 10,500 Unit FEEDTUBE PRN PRN For Clogged Feeding Tube Apixaban 10 mg 02/26/20 12:00 02/27/20 11:10 Eliquis PO 03/03/20 22:01 10 mg Q12HR NADER Administration Protocol Apixaban 5 mg 03/04/20 10:00 Eliquis PO Q12HR NADER Protocol Dextrose 50 ml 02/19/20 14:58 D50w (25gm) Syringe IV Q30MIN PRN Hypoglycemia Protocol Famotidine 20 mg 02/24/20 10:00 02/27/20 11:09 Pepcid PO 20 mg DAILY NADER Administration Fentanyl 50 mcg 02/19/20 15:30 02/27/20 02:20 Sublimaze IV 50 mcg Q10MIN PRN Administration ANALGESIA Fentanyl 50 mcg 02/24/20 09:52 02/26/20 05:38 Sublimaze IV 50 mcg Q2HR PRN Administration Pain, Moderate (4-6) Hydrophilic Ointment 1 applic 02/13/20 19:41 Vaseline Lip Therapy TP Q2HR PRN Dry Lips Fentanyl Citrate 2,000 mcg in 100 mls @ 4.05 mls/hr 02/19/20 16:00 02/24/20 18:59 Fentanyl Drip Premix IV 0 mcg/kg/hr TITR NADER 0 mls/hr Titration Protocol 1 MCG/KG/HR Sodium Chloride 100 mls @ 999 mls/hr 02/22/20 12:30 Nacl 0.9% IV FABIOLA PRN Hypotension Insulin Glargine 40 units 02/24/20 22:00 02/25/20 21:15 Lantus SUB-Q 40 units BID NADER Administration Insulin Human Lispro 0 unit 02/19/20 18:00 02/27/20 12:13 Humalog SUB-Q 6 unit Q6HR [facility] Administration Protocol Labetalol HCl 20 mg 02/13/20 18:00 02/26/20 22:52 Labetalol IV 20 mg Q4H PRN Administration SBP >150 Metoprolol Tartrate 2.5 mg 02/13/20 18:00 02/27/20 02:34 Metoprolol IV 2.5 mg Q6HR PRN Administration HR >130 Metoprolol Tartrate 50 mg 02/26/20 11:00 02/27/20 12:04 Metoprolol PO 50 mg Q8H NADER Administration Multi-Ingred Cream/Lotion/Oil/Oint 1 applic 02/13/20 19:41 Artificial Tears Ophth Oint OU Q4HR PRN Dry Eye(s) Sertraline HCl 50 mg 02/23/20 10:00 02/27/20 11:09 Zoloft PO 50 mg QDAY NADER Administration Simple Syrup 15 ml 02/20/20 10:28 Simple Syrup FEEDTUBE PRN PRN Hypoglycemia Simple Syrup 30 ml 02/20/20 10:28 Simple Syrup FEEDTUBE PRN PRN Hypoglycemia Sodium Bicarbonate 325 mg 02/20/20 10:28 Sodium Bicarbonate FEEDTUBE PRN PRN For Clogged Feeding Tube Sodium Chloride 10 ml 02/11/20 22:00 02/27/20 11:10 Sodium Chloride Flush Syringe 10 Ml IV 10 ml BID NADER Administration Sodium Chloride 10 ml 02/11/20 19:01 02/15/20 22:43 Sodium Chloride Flush Syringe 10 Ml IV 10 ml PRN PRN Administration LINE FLUSH
[2020-02-28] MEDS: METOPROLOL TARTRATE 50 MG TAB PO SCH ×3 (03:10→18:08)
[2020-02-28] MEDS: INSULIN LISPRO 100 UNIT/ML SUB-Q SCH ×4 (05:43→18:08)
--- NOTE | 2020-02-28 07:34 | Progress Note ---
Assessment and Plan Assessment and plan: --Febrile illness; secondary to sepsis,/gram-positive bacteremia Peak temperature last 24 hours 101.3 This morning 97.7, closely monitor Continue antibiotics per ID --Uncontrolled diabetes Mellitus type 2: As insulin was held Accucheks and SSC, Insulin as needed, start Lantus 10 units subcu twice daily --Acute hypoxic resp failure: On ventilatory support unable to wean Wean as tolerated and extubate, pulmonary critical following --Anemia; requiring multiple units of PRBC, total 5 units transfusion Hb low stable, monitor H&H and transfuse additional PRBC as needed --Atrial fibrillation; rate controlled continue metoprolol and amiodarone Chronic anticoagulation Eliquis started, monitor for any bleeding --Sepsis: due to ischemic bowel. Completed antibiotics, ID surgery following --Peritonitis :secondary to ischemia/gangrene of Small bowel and Cecum. s/p Exploratory laparotomy, extensive small bowel resection, partial colon resection, placement of abthera vac on 02/13/2020. S/p exploratory laparotomy, enterocolonic anastamosis, closure of abdomen, application of wound vac on 02/15 --UTI : Completed antibiotics per ID. --C. difficile colitis. [Positive C. difficile test] contact isolation,s/p oral vancomycin --Diarrhea: resolved prior to presentation, doubt C diff, likely from ischemic bowel. --Presumed infected renal cyst. ID following --Hyponatremia; closely monitor electrolytes, mild improvement, resolved --LITZY on CKD: Renally adjust antibiotics, hemodialysis as needed nephrology following --Severe protein calorie malnutrition; nutrition supplements, Supportive care --Right saphenous vein DVT.s/p Anticoagulation No anticoagulation due to severe anemia, closely monitor 02/18/2020. Patient still with oral ETT on mechanical ventilation. Patient currently with PSVT trials, FiO2 30% pressure support 12 and PEEP 6. Continue to wean as tolerated. Consider extubation today. However, chest x-ray today reveals developing right pleural effusion. Continue wound care per wound team. Continue incisional wound VAC. Continue strict n.p.o. and NGT to low int ermittent suction. Continue IV antibiotics per ID 02/19/2020. Patient currently with AC mode ventilation rate 16, tidal volume 450, FiO2 30%, PEEP 6. Continue to wean per protocol and pulmonary rec ommendations. Patient failed PSV secondary to tachypnea today. Continue wound care per wound team. Continue incisional wound VAC. Continue strict n.p.o. and NGT to low intermittent suction. Continue IV antibiotics per ID. Creatinine stable today at 5.1/5.2 and remains non-oliguric; no indication for renal replacement therapy emergently per nephrology. Nephrology to administer 100 mg of IV Lasix today to further promote diuresis and help with metabolic acidosis. Remains at high risk for needing renal replacement therapy 02/20/2020. Patient currently with AC mode ventilation rate 16, tidal volume 450, FiO2 30%, PEEP 6. Continue to wean per protocol and pulmonary recommendations. Patient failed PSV trials. Patient with right lower extremity DVT. Continue anticoagulation which patient is currently on. Patient also with C. difficile colitis/C. difficile positive. We will start p.o. vancomycin. Acute kidney injury on CKD continues to worsen. Therefore, patient will likely need hemodialysis. Defer to nephrology. 02/21/2020. Patient remains on mechanical ventilation AC mode, rate 16, tidal volume 450, FiO2 30%. Continue weaning per protocol. 2 units PRBCs ordered stat for severe anemia. Follow-up CBC posttransfusion. Patient currently on anticoagulation for right lower extremity DVT. Continue wound care. BG elevated in the 300s. We will start Lantus 10 units at bedtime. 02/22/2020. Patient remains on mechanical ventilation AC mode rate 16, tidal volume 450 and FiO2 30%. Continue PSV trials urine culture found to be negative. Continue p.o. vancomycin for C. difficile. Continue cefepime, Flagyl and fluconazole for sepsis/peritonitis. Blood cultures thus far negative. Patient s/p PRBCs for severe anemia. Hemoglobin stable at 7.4. Follow-up CBC in a.m. Patient currently on anticoagulation for right lower extremity DVT. 02/23/20. Anticoagulation for A. fib currently on hold due to anemia. Patient is s/p PRBCs. We will follow-up H&H. Continue to feed via NG tube and advance as tolerated. Continue TPN until patient tolerating tube feeding at goal. Continue wound VAC and monitor drainage. With regards her renal function, LITZY on CKD 3--with ATN, hemodialysis per nephrology. S/p IV Lasix 100mg yesterday with ~1L urine output; will administer another high dose IV lasix bolus on non- HD days to encourage ongoing volume removal and minimize HD UF needs. Continue antibiotics per ID. Leukocytosis likely secondary to UTI. CT C/A/P 02/19/20 - post operative changes of right colon. Anastamosis is intact. Generalized edema of abdominal wall. Urine and blood cultures were found to be negative. 02/24/20; on vent PSV, CPAP mode, wean as tolerated and extubate, transition TPN to full dose tube feeding HD as needed, no HD recommended today 02/25/20: Worsening leukocytosis, multifactorial secondary to UTI, C. difficile colitis On oral vancomycin, ID following, 02/26/20; patient is febrile, has gram-positive cocci bacteremia, continue current antibiotics, ID following 02/27/20: Patient has persistent fevers, continue empiric antibiotics follow cultures 02/28/20: Blood sugars are uncontrolled as insulin was held, add Lantus 10 units subcu twice a day, afebrile this morning The high probability of a clinically significant, sudden or life threatening deterioration of the [respiratory] system(s) required my full and direct attention, intervention and personal management. The aggregate critical care time was [35] minutes. This time is in addition to time spent performing reported procedures but includes the following: [x] Data Review and interpretation [x] Patient assessment and monitoring of vital signs [x] Documentation [x] Medication orders and management History Interval history: Patient seen and examined at the bedside this morning in ICU Patient's medication list, chart reviewed. Remins intubated on vent support Hospitalist Physical - Constitutional Vitals: Temp Pulse Resp BP Pulse Ox 97.7 F 89 21 127/67 100 02/28/20 03:23 02/28/20 07:00 02/28/20 07:00 02/28/20 07:00 02/28/20 07:00 General appearance: Present: mild distress, well-nourished, obese, other (Intubated, on vent) - EENT Eyes: Present: PERRL, EOM intact - Neck Neck: Present: supple, normal ROM - Respiratory Respiratory effort: normal Respiratory: bilateral: diminished, rhonchi, negative: rales, wheezing - Cardiovascular Rhythm: regular Heart Sounds: Present: S1 & S2 - Extremities Extremities: no ischemia, No edema - Abdominal General gastrointestinal: soft, non-tender, non-distended, normal bowel sounds - Integumentary Integumentary: Present: clear, warm - Psychiatric Psychiatric: other (Intubated on vent) - Neurologic Neurologic: other (Intubated on vent) HEART Score - HEART Score Troponin: Troponin T < 0.010 ng/mL (0.00-0.029) 02/11/20 15:27 Results - Labs CBC & Chem 7: 02/28/20 09:25 02/28/20 09:25 Labs: Laboratory Last Values WBC 16.2 K/mm3 (4.5-11.0) H 02/26/20 05:00 RBC 2.36 M/mm3 (3.65-5.03) L 02/26/20 05:00 Hgb 7.4 gm/dl (10.1-14.3) L 02/26/20 05:00 Hct 22.0 % (30.3-42.9) L 02/26/20 05:00 MCV 93 fl (79-97) 02/26/20 05:00 MCH 32 pg (28-32) 02/26/20 05:00 MCHC 34 % (30-34) 02/26/20 05:00 RDW 15.5 % (13.2-15.2) H 02/26/20 05:00 Plt Count 141 K/mm3 (140-440) 02/26/20 05:00 Lymph % (Auto) 7.8 % (13.4-35.0) L 02/26/20 05:00 [place] % (Auto) 8.5 % (0.0-7.3) H 02/26/20 05:00 Eos % (Auto) 0.2 % (0.0-4.3) 02/26/20 05:00 Baso % (Auto) 0.4 % (0.0-1.8) 02/26/20 05:00 Lymph # 1.3 K/mm3 (1.2-5.4) 02/26/20 05:00 [place] # 1.4 K/mm3 (0.0-0.8) H 02/26/20 05:00 Eos # 0.0 K/mm3 (0.0-0.4) 02/26/20 05:00 Baso # 0.1 K/mm3 (0.0-0.1) 02/26/20 05:00 Add Manual Diff Complete 02/25/20 05:25 Total Counted 100 02/25/20 05:25 Seg Neutrophils % 83.1 % (40.0-70.0) H 02/26/20 05:00 Seg Neuts % (Manual) 87.0 % (40.0-70.0) H 02/25/20 05:25 Band Neutrophils % 1.0 % 02/25/20 05:25 Lymphocytes % (Manual) 6.0 % (13.4-35.0) L 02/25/20 05:25 Reactive Lymphs % (Man) 0 % 02/25/20 05:25 Monocytes % (Manual) 6.0 % (0.0-7.3) 02/25/20 05:25 Eosinophils % (Manual) 0 % (0.0-4.3) 02/25/20 05:25 Basophils % (Manual) 0 % (0.0-1.8) 02/25/20 05:25 Metamyelocytes % 0 % 02/25/20 05:25 Myelocytes % 0 % 02/25/20 05:25 Promyelocytes % 0 % 02/25/20 05:25 Blast Cells % 0 % 02/25/20 05:25 Nucleated RBC % Not Reportable 02/25/20 05:25 Seg Neutrophils # 13.5 K/mm3 (1.8-7.7) H 02/26/20 05:00 Seg Neutrophils # Man 22.0 K/mm3 (1.8-7.7) H 02/25/20 05:25 Band Neutrophils # 0.3 K/mm3 02/25/20 05:25 Lymphocytes # (Manual) 1.5 K/mm3 (1.2-5.4) 02/25/20 05:25 Abs React Lymphs (Man) 0.0 K/mm3 02/25/20 05:25 Monocytes # (Manual) 1.5 K/mm3 (0.0-0.8) H 02/25/20 05:25 Eosinophils # (Manual) 0.0 K/mm3 (0.0-0.4) 02/25/20 05:25 Basophils # (Manual) 0.0 K/mm3 (0.0-0.1) 02/25/20 05:25 Metamyelocytes # 0.0 K/mm3 02/25/20 05:25 Myelocytes # 0.0 K/mm3 02/25/20 05:25 Promyelocytes # 0.0 K/mm3 02/25/20 05:25 Blast Cells # 0.0 K/mm3 02/25/20 05:25 WBC Morphology Not Reportable 02/25/20 05:25 Hypersegmented Neuts Not Reportable 02/25/20 05:25 Hyposegmented Neuts Not Reportable 02/25/20 05:25 Hypogranular Neuts Not Reportable 02/25/20 05:25 Smudge Cells Not Reportable 02/25/20 05:25 Toxic Granulation Not Reportable 02/25/20 05:25 Toxic Vacuolation Not Reportable 02/25/20 05:25 Dohle Bodies Not Reportable 02/25/20 05:25 Pelger-Huet Anomaly Not Reportable 02/25/20 05:25 Jyoti Rods Not Reportable 02/25/20 05:25 Platelet Estimate Consistent w auto 02/25/20 05:25 Clumped Platelets Not Reportable 02/25/20 05:25 Plt Clumps, EDTA Not Reportable 02/25/20 05:25 Large Platelets Not Reportable 02/25/20 05:25 Giant Platelets Not Reportable 02/25/20 05:25 Platelet Satelliting Not Reportable 02/25/20 05:25 Plt Morphology Comment Not Reportable 02/25/20 05:25 RBC Morphology Not Reportable 02/25/20 05:25 Dimorphic RBCs Not Reportable 02/25/20 05:25 Polychromasia Few 02/25/20 05:25 Hypochromasia Not Reportable 02/25/20 05:25 Poikilocytosis Not Reportable 02/25/20 05:25 Anisocytosis 1+ 02/25/20 05:25 Microcytosis Not Reportable 02/25/20 05:25 Macrocytosis Not Reportable 02/25/20 05:25 Spherocytes Not Reportable 02/25/20 05:25 Pappenheimer Bodies Not Reportable 02/25/20 05:25 Sickle Cells Not Reportable 02/25/20 05:25 Target Cells Not Reportable 02/25/20 05:25 Tear Drop Cells Not Reportable 02/25/20 05:25 Ovalocytes Not Reportable 02/25/20 05:25 Helmet Cells Not Reportable 02/25/20 05:25 [place] Bodies Not Reportable 02/25/20 05:25 [place] Rings Not Reportable 02/25/20 05:25 [place] Cells Not Reportable 02/25/20 05:25 Bite Cells Not Reportable 02/25/20 05:25 Crenated Cell Not Reportable 02/25/20 05:25 Elliptocytes Not Reportable 02/25/20 05:25 Acanthocytes (Spur) Not Reportable 02/25/20 05:25 Rouleaux Not Reportable 02/25/20 05:25 Hemoglobin C Crystals Not Reportable 02/25/20 05:25 Schistocytes Not Reportable 02/25/20 05:25 Malaria parasites Not Reportable 02/25/20 05:25 Babar Bodies Not Reportable 02/25/20 05:25 Hem Pathologist Commnt No 02/25/20 05:25 PT 16.9 Sec. (12.2-14.9) H 02/13/20 20:10 INR 1.41 (0.87-1.13) H 02/13/20 20:10 APTT 35.3 Sec. (24.2-36.6) 02/13/20 20:10 Heparin Anti-Xa Level 0.15 U.I./ml (0.3-0.7) L 02/23/20 02:55 ABG pH 7.318 pH Units (7.350-7.450) L 02/21/20 04:16 ABG pCO2 42.7 mm Hg 02/21/20 04:16 ABG pO2 100.0 mm Hg (80.0-90.0) H 02/21/20 04:16 ABG HCO3 21.4 mmol/L (20.0-26.0) 02/21/20 04:16 ABG O2 Saturation 97.2 % (95.0-99.0) 02/21/20 04:16 ABG O2 Content 12.3 (0.0-44) 02/21/20 04:16 ABG Base Excess -4.4 mmol/L (-2.0-3.0) L 02/21/20 04:16 ABG Hemoglobin 9.1 gm/dl (12.0-16.0) L 02/21/20 04:16 ABG Carboxyhemoglobin 1.5 % (0.0-5.0) 02/21/20 04:16 ABG Methemoglobin 0.7 % (0.0-1.5) 02/21/20 04:16 Oxyhemoglobin 95.2 % (95.0-99.0) 02/21/20 04:16 FiO2 30 % 02/21/20 04:16 Sodium 137 mmol/L (137-145) 02/26/20 05:00 Potassium 4.3 mmol/L (3.6-5.0) 02/26/20 05:00 Chloride 98.3 mmol/L (98-107) 02/26/20 05:00 Carbon Dioxide 23 mmol/L (22-30) 02/26/20 05:00 Anion Gap 20 mmol/L 02/26/20 05:00 BUN 74 mg/dL (7-17) H 02/26/20 05:00 Creatinine 4.1 mg/dL (0.7-1.2) H 02/26/20 05:00 Estimated GFR 11 ml/min 02/26/20 05:00 BUN/Creatinine Ratio 18 % 02/26/20 05:00 Glucose 98 mg/dL (65-100) 02/26/20 05:00 POC Glucose 380 (70-105) H 02/28/20 05:22 Ketones Quantitative Negative (Negative) 02/13/20 14:51 Lactic Acid 0.70 mmol/L (0.7-2.0) 02/14/20 Unknown Calcium 8.5 mg/dL (8.4-10.2) 02/26/20 05:00 Phosphorus 4.90 mg/dL (2.5-4.5) H 02/24/20 05:40 Magnesium 2.20 mg/dL (1.7-2.3) 02/25/20 05:25 Total Bilirubin 0.30 mg/dL (0.1-1.2) 02/25/20 05:25 Direct Bilirubin < 0.2 mg/dL (0-0.2) 02/25/20 05:25 Indirect Bilirubin 0.1 mg/dL 02/25/20 05:25 AST 20 units/L (5-40) 02/25/20 05:25 ALT 17 units/L (7-56) 02/25/20 05:25 Alkaline Phosphatase 76 units/L (35-129) 02/25/20 05:25 Troponin T < 0.010 ng/mL (0.00-0.029) 02/11/20 15:27 Total Protein 5.0 g/dL (6.3-8.2) L 02/25/20 05:25 Albumin 2.3 g/dL (3.9-5) L 02/25/20 05:25 Albumin/Globulin Ratio 0.9 % 02/25/20 05:25 Triglycerides 238 mg/dL (2-149) H 02/17/20 03:45 Lipase 60 units/L (13-60) 02/13/20 14:51 Urine Color Yellow (Yellow) 02/19/20 14:00 Urine Turbidity Cloudy (Clear) 02/19/20 14:00 Urine pH 5.0 (5.0-7.0) 02/19/20 14:00 Ur Specific [place] 1.007 (1.003-1.030) 02/19/20 14:00 Urine Protein 100 mg/dl mg/dL (Negative) 02/19/20 14:00 Urine Glucose (UA) >=500 mg/dL (Negative) 02/19/20 14:00 Urine Ketones Tr mg/dL (Negative) 02/19/20 14:00 Urine Blood Lg (Negative) 02/19/20 14:00 Urine Nitrite Neg (Negative) 02/19/20 14:00 Urine Bilirubin Neg (Negative) 02/19/20 14:00 Urine Urobilinogen < 2.0 mg/dL (<2.0) 02/19/20 14:00 Ur Leukocyte Esterase Lg (Negative) 02/19/20 14:00 Urine WBC (Auto) 166.0 /HPF (0.0-6.0) H 02/19/20 14:00 Urine RBC (Auto) 20.0 /HPF (0.0-6.0) 02/19/20 14:00 U Epithel Cells (Auto) 2.0 /HPF (0-13.0) 02/19/20 14:00 Urine Bacteria (Auto) 1+ /HPF (Negative) 02/19/20 14:00 Urine WBC Clumps 3+ /HPF 02/19/20 14:00 Urine Mucus Few /HPF 02/19/20 14:00 Urine Yeast (Budding) 3+ /HPF 02/19/20 14:00 Urine Eosinophils None seen (None Seen) 02/12/20 Unknown Urine Creatinine 35.3 mg/dL (0.1-20.0) H 02/12/20 Unknown Protein/Creatinin Ratio 22.55 02/12/20 Unknown Urine Total Protein 796 mg/dL (5-11.8) H 02/12/20 Unknown C. difficile Tox (PCR) Positive (Negative) 02/19/20 12:46 Coronavirus (PCR) Negative (Negative) 02/25/20 08:50 Hepatitis A IgM Ab Non-reactive (NonReactive) 02/21/20 10:30 Hep Bs Antigen Non-reactive (Negative) 02/21/20 10:30 Hep B Core IgM Ab Non-reactive (NonReactive) 02/21/20 10:30 Hepatitis C Antibody Non-reactive (NonReactive) 02/21/20 10:30 Blood Type O NEGATIVE 02/21/20 06:00 Antibody Screen Negative 02/21/20 06:00 Crossmatch See Detail 02/21/20 06:00 Microbiology: Microbiology 02/27/20 19:25 Peripheral/Venous Blood Culture - Preliminary Culture in Progress 02/27/20 18:50 Peripheral/Venous Blood Culture - Preliminary Culture in Progress 02/24/20 14:51 Peripheral/Venous Blood Culture - Preliminary Staphylococcus Epidermidis 02/24/20 14:51 Peripheral/Venous Blood Culture - Preliminary Staphylococcus Epidermidis - Diagnostic Impressions Diagnostic Impressions: Echocardiogram 02/13/20 18:02 Transthoracic Echocardiogram Indication: Afib BP: 101/70 HR: 128 Findings Left Ventricle: The left ventricular chamber size is normal. Mild to moderate concentric left ventricular hypertrophy is observed. Global left ventricular wall motion and contractility are within normal limits. Global left ventricular systolic function is normal. The estimated ejection fraction is 60-65%. Left Atrium: The left atrium is mild to moderately dilated. Right Ventricle: The right ventricular cavity size is normal. The right ventricular global systolic function is normal. Right Atrium: The right atrium appears normal. The interatrial septum appears normal. Aortic Valve: The aortic valve structure is normal. The aortic valve leaflets are mildly thickened. There is no evidence of aortic regurgitation. There is no evidence of aortic stenosis. Mitral Valve: The mitral valve leaflets appear normal. There is no evidence of mitral regurgitation. There is no evidence of mitral stenosis. Tricuspid Valve: The tricuspid valve leaflets are normal. There is mild to moderate tricuspid regurgitation. The right ventricular systolic pressure is calculated at 39 mmHg. There is evidence of pulmonary hypertension. There is no tricuspid stenosis. Pulmonic Valve: The pulmonic valve appears normal. There is no evidence of pulmonic regurgitation. There is no pulmonic stenosis. Pericardium: A pericardial effusion is visualized. There is a minimial pericardial effusion. A left pleural effusion is present. There is a moderate pleural effusion. Aorta: There is no dilatation of the ascending aorta. There is no dilatation of the aortic arch. There is no dilatation of the descending thoracic aorta. There is no dilatation of the aortic root. Venous: The inferior vena cava appears normal in size. Measurements Chambers 2D Name Value Normal Range IVSd (2D) 1.34 cm (0.6 - 1.1) LVPWd (2D) 1.35 cm (0.6 - 1.1) LVIDd (2D) 4.72 cm (3.7 - 5.6) LVIDs (2D) 3.28 cm (2 - 3.8) LV FS (2D) 30.38 % - EF Teichholz (2D) 57.75 % - Ao root diameter (2D) 3.02 cm (2 - 3.7) Volumes/Mass Name Value Normal Range LA ESV SP 4CH (A/L) 55.87 ml - LA ESV SP 2CH (A/L) 67.65 ml - LA ESV BP (A/L) 63.67 ml - LA ESV SP 4CH (MOD) 54.25 ml - LA ESV SP 2CH (MOD) 63.2 ml - LA ESV BP (MOD) 60.49 ml - LA ESV BP (MOD) index 34.18 ml/m2 - LV EDV SP 4CH (MOD) 70.96 ml - LV ESV SP 4CH (MOD) 23.49 ml - EF SP 4CH (MOD) 66.89 % - LV EDV SP 2CH (MOD) 61.41 ml - LV ESV SP 2CH (MOD) 27.43 ml - EF SP 2CH (MOD) 55.33 % - LV EDV BP 69.85 ml - LV ESV BP 26.44 ml - BP EF (MOD) 62.14 % - Aortic Valve Name Value Normal Range AV Vmax 1.29 m/sec - AV VTI 18.56 cm - AV peak gradient 6.69 mmHg - AV mean gradient 3.39 mmHg - LVOT diameter 1.95 cm - LVOT Vmax 1.14 m/sec - LVOT VTI 16.24 cm - LVOT peak gradient 5.21 mmHg - LVOT mean gradient 2.04 mmHg - SV LVOT 48.71 ml - TABATHA (continuity Vmax) 2.65 cm2 - TABATHA (continuity VTI) 2.62 cm2 - Ascending Ao 2.96 cm - Tricuspid Valve Name Value Normal Range TR Vmax 2.47 m/sec - TR peak gradient 24 mmHg - RAP 15 mmHg - RVSP 39 mmHg - Pulmonic Valve/Qp:Qs Name Value Normal Range PV Vmax 1.15 m/sec - PV peak gradient 5.33 mmHg - PV acceleration time 68.51 msec - Acevedo/IV: Voiding Method Indwelling Catheter IV Catheter Type [Right VAS Cath Internal Jugular] IV Catheter Type [Left Upper PICC Line arm] IV Catheter Type [Right INT / Saline Lock Antecubital] IV Catheter Type [Right Peripheral IV Forearm] IV Catheter Type [Left Forearm INT / Saline Lock ] IV Catheter Type [Right Hand] Peripheral IV Active Medications - Current Medications Current Medications: Generic Name Dose Route Start Last Admin Trade Name Freq PRN Reason Stop Dose Admin Acetaminophen 650 mg 02/11/20 19:01 02/27/20 12:00 Tylenol PO 650 mg Q4H PRN Administration Pain MILD(1-3)/Fever >100.5/ADAMS Amiodarone HCl 200 mg 02/24/20 10:00 02/27/20 11:09 Cordarone PO 200 mg QDAY NADER Administration Lipase/Protease/Amylase 1 each 02/20/20 10:28 Pancreazflorentin Daugherty 10,500 Unit FEEDTUBE PRN PRN For Clogged Feeding Tube Apixaban 10 mg 02/26/20 12:00 02/27/20 22:12 Eliquis PO 03/03/20 22:01 10 mg Q12HR NADER Administration Protocol Apixaban 5 mg 03/04/20 10:00 Eliquis PO Q12HR NADER Protocol Dextrose 50 ml 02/19/20 14:58 D50w (25gm) Syringe IV Q30MIN PRN Hypoglycemia Protocol Famotidine 20 mg 02/24/20 10:00 02/27/20 11:09 Pepcid PO 20 mg DAILY NADER Administration Fentanyl 50 mcg 02/19/20 15:30 02/27/20 02:20 Sublimaze IV 50 mcg Q10MIN PRN Administration ANALGESIA Fentanyl 50 mcg 02/24/20 09:52 02/26/20 05:38 Sublimaze IV 50 mcg Q2HR PRN Administration Pain, Moderate (4-6) Hydrophilic Ointment 1 applic 02/13/20 19:41 Vaseline Lip Therapy TP Q2HR PRN Dry Lips Fentanyl Citrate 2,000 mcg in 100 mls @ 4.05 mls/hr 02/19/20 16:00 02/24/20 18:59 Fentanyl Drip Premix IV 0 mcg/kg/hr TITR NADER 0 mls/hr Titration Protocol 1 MCG/KG/HR Sodium Chloride 100 mls @ 999 mls/hr 02/22/20 12:30 Nacl 0.9% IV FABIOLA PRN Hypotension Insulin Glargine 10 units 02/28/20 07:26 Lantus SUB-Q 02/28/20 07:27 BID ONE Insulin Human Lispro 0 unit 02/19/20 18:00 02/28/20 05:43 Humalog SUB-Q 10 unit Q6HR NADER Administration Protocol Labetalol HCl 20 mg 02/13/20 18:00 02/27/20 23:59 Labetalol IV 20 mg Q4H PRN Administration SBP >150 Metoprolol Tartrate 2.5 mg 02/13/20 18:00 02/27/20 02:34 Metoprolol IV 2.5 mg Q6HR PRN Administration HR >130 Metoprolol Tartrate 50 mg 02/26/20 11:00 02/28/20 03:10 Metoprolol PO 50 mg Q8H NADER Administration Multi-Ingred Cream/Lotion/Oil/Oint 1 applic 02/13/20 19:41 Artificial Tears Ophth Oint OU Q4HR PRN Dry Eye(s) Sertraline HCl 50 mg 02/23/20 10:00 02/27/20 11:09 Zoloft PO 50 mg QDAY NADER Administration Simple Syrup 15 ml 02/20/20 10:28 Simple Syrup FEEDTUBE PRN PRN Hypoglycemia Simple Syrup 30 ml 02/20/20 10:28 Simple Syrup FEEDTUBE PRN PRN Hypoglycemia Sodium Bicarbonate 325 mg 02/20/20 10:28 Sodium Bicarbonate FEEDTUBE PRN PRN For Clogged Feeding Tube Sodium Chloride 10 ml 02/11/20 22:00 02/27/20 22:13 Sodium Chloride Flush Syringe 10 Ml IV 10 ml BID NADER Administration Sodium Chloride 10 ml 02/11/20 19:01 02/15/20 22:43 Sodium Chloride Flush Syringe 10 Ml IV 10 ml PRN PRN Administration LINE FLUSH Nutrition/Malnutrition Assess - Dietary Evaluation Nutrition/Malnutrition Findings: Nutrition Notes Start: 02/14/20 09:49 Freq: Status: Active Protocol: Document 02/27/20 11:30 LM (Rec: 02/27/20 11:33 LM [email or web address]) Nutrition Notes Initial or Follow up Reassessment Current Diagnosis Acute Kidney Injury,Decubitus( Pressure Ulcer),Diabetes, Hypertension,Hyperlipidemia Other Pertinent Diagnosis ischemic bowel with gangrene s /p exp lap, Current Diet Vital 1.2 at 50ml/hr Labs/Tests Reviewed Pertinent Medications Reviewed Height 5 ft 5 in Weight 96.2 kg [place] Body Weight (kg) 56.81 BMI 35.2 Weight change and time frame Wt change noted Weight Status Obese Subjective/Other Information Vital running at goal rate. Percent of energy/protein needs met: 100%/100% Burn Absent Trauma Absent Current % PO Negligible Minimum of two criteria No #2 Nutrition Diagnosis Inadequate oral intake Diagnosis Progress(for reassessment Continues documentation) Is patient on ventilator? Yes Is Patient Ambulatory and/or Out of Bed No REE-([facility]-confined to bed) 1755.492 Kcal/Kg value to use for calculation 15 Approximate Energy Requirements Using 1443 kcal/Kg Calculation Used for Recommendations Kcal/kg Additional Notes Pro needs 1.2-2g/k-140g/ day Fluid needs 1ml/kcal Nutrition Intervention Change Diet Order: Continue TF Nutrition Support: Vital 1.2 at 50ml/hr (goal rate) Flush with 100ml q4h Kcal 1,440 Protein (gm) 90 Fluid (mL) 966 Goal #1 Meet at least 75% of energy and protein needs Anticipated Discharge Needs: Unable to identify at this time Follow-Up By: 03/02/20 Additional Comments F/U for TF tolerance
--- NOTE | 2020-02-28 09:11 | Progress Note ---
Assessment and Plan 74 y/o female with abdominal pain, hypotension, now hypertensive with tachycardia and pain, worrisome for SBO and inflammation in colon from diverticula with worsening renal function. 02/28/2020: Will remove Vas Cath today, spoke with nursing about this this am. Repeat cultures are pending. Patient very edematous so finding peripheral IV's will be difficult. Will ask picc team to look for peripheral vs a midline placement and consider getting PICC line out now that off of TPN. Continue anticoagulation with oral therapies. Continue tylenol therapy. Will call Granddaughter today to figure out a time for coming in tomorrow. Reviewed CM note, will need 3 days of afebrile documentation and repeat COVID testing which I will do Sunday. 02/27/2020: Febrile again last night and this am. Bacteria growing in blood was Coag negative staph so a presumed contaminant. May need to repeat blood cultur es again once 24 hours out. Did not remove picc on yesterday but may need to if fevers persists. HR still tachy but this could be related to fever. Cards did increase dilt on yesterday, may need to increase more. If fever curve breaks later today, will try PSV again. Follow up renal recs and see if they have anything to offer in regards to blood pressure control. Other possibility is that she is febrile from clot. She had superficial clot in leg. Anticoagulation was stopped for several days secondary to anemia, and was just restarted yesterday. Will continue to monitor. Family wants to see patient again prior to discharge from here. Will arrange a time on Sunday for Daughter and Granddaughter to come. 02/26/2020: Patient is now bacteremic. She has several sources for the nidus. Will discuss with surgery, now that patient is off TPN and tolerating feeds, may try to remove PICC. I have asked nursing to find some peripherals prior to doing this. The other option would be to place a midline. ID has adjusted abx. Mental status is much better today. Purposeful eye movements, head turns and feet moving. Agree with cardiology in regards to increasing Dilt to 60. After the discussion with the granddaughter, will add some PRN benzo therapy to see if anxiety is playing a part. Continue PSV trials as tolerated. Goals would still be to extubate if possible without requiring trach. Per CM, family has agreed to an LTACH in [facility] to try to arrange admission as soon as possible. HD per renal, patient is still making urine and she does have a vascath which could be a source for infection as well. 02/25/2020: Long discussion with Granddaughter and Daughter over the phone to discuss LTACH. Currently they are not in favor.of LTACH. I tried my best to explain to them that this would be the next step in recovery for their family member. They are going to discuss amongst themselves and then let us know. I answered the questions they had to the best of my abilities. I also explained to them the current mental state, my thoughts and how we are trying to improve her mental state. They seem to understand this. We will continue daily PSV trials as tolerated. HD per renal. Overall prognosis is guarded. 02/24/2020: Continue PSV as tolerated. I have asked nursing to leave sedation off for as long as possible. I have also added PRN pushes of fentanyl with hopes of not having to restart the continuous infusion. I do not believe she will be ready for extubation today, but would like to work her respiratory muscles. Mental status is not exactly where we wont it to be. Heparin remains off and will discontinue from the MAR at this time. HD yesterday so likely none today. Will touch base with surgery and discuss with them but given the degree of illness and likely underlying lung disease as patient as still smoking, may need to consider LTACH if not able to wean in a timely fashion. Overall prognosis remains guarded. 02/23/2020: HD today. Will hold on weaning sedation given HD happening and likely will be to weak for PSV. Remains on minimal vent support. Transfusion today, of 2 units of PRBC's. Heparin on hold will need to recheck levels today. Spoke with pharm who will help with insulin therapy to better level of sugars. Abx therapy per ID. Flagyl and Cefepime stopped yesterday. Guarded prognosis. Will continue to follow. 02/20/2020: Positive VTE but already on anticoagulation for Afib. HgB is 7. Not hypotensive. Does respond to lasix. Will discuss with renal but my personal preference would be to hold until less than 7 for transfusion. ID on board and placed on antifungal yesterday. Improvement in white count. Spoke with RT who will attempt PSV again today. If patient fails again today, will speak with renal about more volume removal. May need HD briefly. Surgery also starting trickle feeds today. Spoke with Pharm about increasing lantus given hyperglycemia. C. Diff PCR came back positive today. 02/19/2020: More awake today but failed PSV secondary to tachypnea. Makes sense given degree of acidosis. Await renal to eval today. Wonder if more lasix will be given or if she will need HD. Only on 30% with good sats, but compensating for metabolic acidosis which is why she failed PSV. Spoke with Granddaughter over the phone, renal please call as she would like an update on renal function and plans. Continue pain control with PRN therapy but no further continuous sedation. 02/18/2020: More awake but failing PSV trials. Spoke with renal and they did not request corcoran out either. Will replace and give lasix 80mg IV. Spoke with Granddaughter over the phone who is a nurse. Will attempt PSV later this afternoon. If passes, will likely extubate in the am. If not , will give an ad ditional dose of lasix tonight. 02/17/2020: Start to wean sedation today with hopes of extubation. Pain control. IVF's per renal. Follow up any surgery recs. ID seen this am, reviewed their note and plan to treat for 7 days of abx, currently on day 2. 02/16/2020: Picc line placed yesterday. Going to OR today, plan around 1330. If able to close, could consider starting to wean as early as tomorrow but will touch base with surgery first. Patient HR in the 50's on drip so cards decreased. Discussed on rounds, but I asked nursing if any further issues to just stop the drip. Prognosis remains guarded. Trigylcerides not checked so will order stat. 02/15/2020: No new recs for today. Happy with current clinical state in regards to sedation, ventilation and oxygenation. Appreciate surgery and nephro help. follow up any new recs from them. Agree with picc line, will get tomorrow as I believe they (picc team) are not available on Sunday. Will check triglyceride level in the am. Guarded prognosis. CCT 31 minutes. Subjective Date of service: 02/28/20 Principal diagnosis: Ischemic Bowel Interval history: No acute events. Fever curve is trending down. Reviewed Renal note and they are ok with removing VasCath. Not done on yesterday. Patient will not head appropriately when answering questions. Very weak but will attempt to move ext on commands. Objective Vital Signs - 12hr 02/27/20 02/27/20 02/27/20 21:30 22:00 22:30 Temperature Pulse Rate 103 H 110 H 108 H Pulse Rate [ From Monitor] Respiratory 25 H 22 26 H Rate Blood Pressure 172/100 171/104 172/105 O2 Sat by Pulse 100 100 100 Oximetry 02/27/20 02/27/20 02/27/20 23:00 23:13 23:30 Temperature Pulse Rate 111 H 111 H 111 H Pulse Rate [ From Monitor] Respiratory 22 19 Rate Blood Pressure 148/106 187/104 187/104 O2 Sat by Pulse 100 100 100 Oximetry 02/27/20 02/27/20 02/28/20 23:49 23:59 00:00 Temperature 98.3 F Pulse Rate 107 H 110 H Pulse Rate [ From Monitor] Respiratory 23 Rate Blood Pressure 177/106 177/108 O2 Sat by Pulse 99 Oximetry 02/28/20 02/28/20 02/28/20 00:15 00:30 01:00 Temperature Pulse Rate 111 H 112 H 114 H Pulse Rate [ From Monitor] Respiratory 26 H 24 Rate Blood Pressure 182/104 166/103 O2 Sat by Pulse 99 100 Oximetry 02/28/20 02/28/20 02/28/20 01:30 02:00 02:30 Temperature Pulse Rate 89 89 89 Pulse Rate [ From Monitor] Respiratory 20 18 21 Rate Blood Pressure 145/91 120/64 164/81 O2 Sat by Pulse 100 100 100 Oximetry 02/28/20 02/28/20 02/28/20 03:00 03:10 03:23 Temperature 97.7 F Pulse Rate 113 H 113 H Pulse Rate [ From Monitor] Respiratory 23 Rate Blood Pressure 177/123 177/123 O2 Sat by Pulse 99 Oximetry 02/28/20 02/28/20 02/28/20 03:30 04:00 04:24 Temperature Pulse Rate 87 88 Pulse Rate [ From Monitor] Respiratory 22 25 H 18 Rate Blood Pressure 153/102 148/79 O2 Sat by Pulse 100 100 100 Oximetry 02/28/20 02/28/20 02/28/20 04:30 05:00 05:30 Temperature Pulse Rate 88 93 H 88 Pulse Rate [ From Monitor] Respiratory 23 21 22 Rate Blood Pressure 149/77 148/78 146/71 O2 Sat by Pulse 100 100 100 Oximetry 02/28/20 02/28/20 02/28/20 06:00 06:30 07:00 Temperature Pulse Rate 84 89 89 Pulse Rate [ From Monitor] Respiratory 19 21 21 Rate Blood Pressure 136/64 111/66 127/67 O2 Sat by Pulse 100 100 100 Oximetry 02/28/20 02/28/20 02/28/20 07:25 07:30 08:00 Temperature 98.5 F Pulse Rate 106 H 107 H 109 H Pulse Rate [ 110 H From Monitor] Respiratory 17 26 H Rate Blood Pressure 153/99 167/98 166/104 O2 Sat by Pulse 100 100 100 Oximetry 02/28/20 08:30 Temperature Pulse Rate 109 H Pulse Rate [ From Monitor] Respiratory 24 Rate Blood Pressure 157/108 O2 Sat by Pulse 100 Oximetry Constitutional: no acute distress, other (on vent intubated and sedated) Eyes: non-icteric ENT: other (orally intubated ) Effort: normal Ascultation: Bilateral: clear Percussion: Bilateral: not dull Cardiovascular: irregular rhythm (but rate controlled) Gastrointestinal: other (post surgical changes) Integumentary: normal Extremities: edema Neurologic: unable to assess (on vent) CBC and BMP: 02/26/20 05:00 02/26/20 05:00 ABG, PT/INR, D-dimer: ABG ABG pH 7.318 pH Units (7.350-7.450) L 02/21/20 04:16 ABG pCO2 42.7 mm Hg 02/21/20 04:16 ABG pO2 100.0 mm Hg (80.0-90.0) H 02/21/20 04:16 ABG O2 Saturation 97.2 % (95.0-99.0) 02/21/20 04:16 PT/INR, D-dimer PT 16.9 Sec. (12.2-14.9) H 02/13/20 20:10 INR 1.41 (0.87-1.13) H 02/13/20 20:10 Abnormal lab findings: Abnormal Labs 02/11/20 02/11/20 02/11/20 15:27 15:27 15:27 WBC 22.5 H RBC Hgb Hct MCHC RDW Plt Count Lymph % (Auto) Gage % (Auto) Gage # Seg Neutrophils % Seg Neuts % (Manual) 90.0 H Lymphocytes % (Manual) 4.0 L Monocytes % (Manual) Nucleated RBC % Seg Neutrophils # Seg Neutrophils # Man 20.3 H Lymphocytes # (Manual) 0.9 L Monocytes # (Manual) 1.1 H Eosinophils # (Manual) PT INR APTT 23.3 L Heparin Anti-Xa Level ABG pH ABG pO2 ABG HCO3 ABG O2 Saturation ABG Base Excess ABG Hemoglobin Oxyhemoglobin Sodium 132 L Potassium Chloride 96.0 L Carbon Dioxide 16 L BUN 59 H Creatinine 3.0 H Glucose 487 H POC Glucose Calcium Phosphorus Magnesium Alkaline Phosphatase 142 H Total Protein Albumin Triglycerides Lipase 86 H Urine WBC (Auto) Urine Creatinine Urine Total Protein Crossmatch 02/12/20 02/12/20 02/12/20 04:58 04:58 Unknown WBC 30.0 H RBC Hgb Hct MCHC RDW Plt Count Lymph % (Auto) Gage % (Auto) Gage # Seg Neutrophils % Seg Neuts % (Manual) 96.0 H Lymphocytes % (Manual) 1.0 L Monocytes % (Manual) Nucleated RBC % Seg Neutrophils # Seg Neutrophils # Man 28.8 H Lymphocytes # (Manual) 0.3 L Monocytes # (Manual) 0.9 H Eosinophils # (Manual) PT INR APTT Heparin Anti-Xa Level ABG pH ABG pO2 ABG HCO3 ABG O2 Saturation ABG Base Excess ABG Hemoglobin Oxyhemoglobin Sodium Potassium Chloride Carbon Dioxide 15 L BUN 59 H Creatinine 3.0 H Glucose 477 H POC Glucose Calcium Phosphorus Magnesium Alkaline Phosphatase Total Protein Albumin 3.5 L Triglycerides Lipase Urine WBC (Auto) Urine Creatinine 35.3 H Urine Total Protein 796 H Crossmatch 02/13/20 02/13/20 02/13/20 05:43 05:43 13:24 WBC 38.2 H RBC Hgb Hct 43.6 H MCHC RDW Plt Count Lymph % (Auto) Gage % (Auto) Gage # Seg Neutrophils % Seg Neuts % (Manual) 91.0 H Lymphocytes % (Manual) 4.0 L Monocytes % (Manual) Nucleated RBC % Seg Neutrophils # Seg Neutrophils # Man 34.8 H Lymphocytes # (Manual) Monocytes # (Manual) 1.1 H Eosinophils # (Manual) PT INR APTT Heparin Anti-Xa Level ABG pH ABG pO2 ABG HCO3 ABG O2 Saturation ABG Base Excess ABG Hemoglobin Oxyhemoglobin Sodium 136 L Potassium Chloride Carbon Dioxide 11 L BUN 71 H Creatinine 4.0 H Glucose 343 H POC Glucose 337 H Calcium Phosphorus Magnesium Alkaline Phosphatase Total Protein Albumin Triglycerides Lipase Urine WBC (Auto) Urine Creatinine Urine Total Protein Crossmatch 02/13/20 02/13/20 02/13/20 16:49 16:50 17:30 WBC RBC Hgb Hct MCHC RDW Plt Count Lymph % (Auto) Gage % (Auto) Gage # Seg Neutrophils % Seg Neuts % (Manual) Lymphocytes % (Manual) Monocytes % (Manual) Nucleated RBC % Seg Neutrophils # Seg Neutrophils # Man Lymphocytes # (Manual) Monocytes # (Manual) Eosinophils # (Manual) PT INR APTT Heparin Anti-Xa Level ABG pH 7.226 L ABG pO2 77.9 L ABG HCO3 16.4 L ABG O2 Saturation ABG Base Excess -10.5 L ABG Hemoglobin 11.7 L Oxyhemoglobin 92.8 L Sodium Potassium Chloride Carbon Dioxide BUN Creatinine Glucose POC Glucose 272 H Calcium Phosphorus Magnesium Alkaline Phosphatase Total Protein Albumin Triglycerides Lipase Urine WBC (Auto) Urine Creatinine Urine Total Protein Crossmatch See Detail 02/13/20 02/13/20 02/13/20 20:10 20:42 22:08 WBC RBC Hgb Hct MCHC RDW Plt Count Lymph % (Auto) Gage % (Auto) Gage # Seg Neutrophils % Seg Neuts % (Manual) Lymphocytes % (Manual) Monocytes % (Manual) Nucleated RBC % Seg Neutrophils # Seg Neutrophils # Man Lymphocytes # (Manual) Monocytes # (Manual) Eosinophils # (Manual) PT 16.9 H INR 1.41 H APTT Heparin Anti-Xa Level ABG pH 7.158 L* ABG pO2 ABG HCO3 18.6 L ABG O2 Saturation ABG Base Excess -10.2 L ABG Hemoglobin 11.9 L Oxyhemoglobin 93.1 L Sodium Potassium Chloride Carbon Dioxide BUN Creatinine Glucose POC Glucose 171 H Calcium Phosphorus Magnesium Alkaline Phosphatase Total Protein Albumin Triglycerides Lipase Urine WBC (Auto) Urine Creatinine Urine Total Protein Crossmatch 02/14/20 02/14/20 02/14/20 00:22 03:45 04:29 WBC RBC Hgb Hct MCHC RDW Plt Count Lymph % (Auto) Gage % (Auto) Gage # Seg Neutrophils % Seg Neuts % (Manual) Lymphocytes % (Manual) Monocytes % (Manual) Nucleated RBC % Seg Neutrophils # Seg Neutrophils # Man Lymphocytes # (Manual) Monocytes # (Manual) Eosinophils # (Manual) PT INR APTT Heparin Anti-Xa Level ABG pH 7.193 L* ABG pO2 ABG HCO3 16.4 L ABG O2 Saturation ABG Base Excess -11.2 L ABG Hemoglobin 10.2 L Oxyhemoglobin 94.3 L Sodium Potassium Chloride 108.5 H Carbon Dioxide 16 L BUN 73 H Creatinine 4.3 H Glucose 167 H POC Glucose 199 H Calcium 8.0 L Phosphorus Magnesium Alkaline Phosphatase Total Protein Albumin Triglycerides Lipase Urine WBC (Auto) Urine Creatinine Urine Total Protein Crossmatch 02/14/20 02/14/20 02/14/20 04:29 05:26 12:11 WBC 14.4 H RBC Hgb Hct MCHC RDW 15.3 H Plt Count Lymph % (Auto) Gage % (Auto) Gage # Seg Neutrophils % Seg Neuts % (Manual) 88.0 H Lymphocytes % (Manual) 6.0 L Monocytes % (Manual) Nucleated RBC % Seg Neutrophils # Seg Neutrophils # Man 12.7 H Lymphocytes # (Manual) 0.9 L Monocytes # (Manual) Eosinophils # (Manual) PT INR APTT Heparin Anti-Xa Level ABG pH ABG pO2 ABG HCO3 ABG O2 Saturation ABG Base Excess ABG Hemoglobin Oxyhemoglobin Sodium Potassium Chloride Carbon Dioxide BUN Creatinine Glucose POC Glucose 177 H 160 H Calcium Phosphorus Magnesium Alkaline Phosphatase Total Protein Albumin Triglycerides Lipase Urine WBC (Auto) Urine Creatinine Urine Total Protein Crossmatch 02/14/20 02/14/20 02/15/20 18:34 23:18 03:19 WBC RBC Hgb Hct MCHC RDW Plt Count Lymph % (Auto) Gage % (Auto) Gage # Seg Neutrophils % Seg Neuts % (Manual) Lymphocytes % (Manual) Monocytes % (Manual) Nucleated RBC % Seg Neutrophils # Seg Neutrophils # Man Lymphocytes # (Manual) Monocytes # (Manual) Eosinophils # (Manual) PT INR APTT Heparin Anti-Xa Level ABG pH 7.246 L ABG pO2 ABG HCO3 13.7 L ABG O2 Saturation ABG Base Excess -12.5 L ABG Hemoglobin 8.4 L Oxyhemoglobin 94.6 L Sodium Potassium Chloride Carbon Dioxide BUN Creatinine Glucose POC Glucose 135 H 138 H Calcium Phosphorus Magnesium Alkaline Phosphatase Total Protein Albumin Triglycerides Lipase Urine WBC (Auto) Urine Creatinine Urine Total Protein Crossmatch 02/15/20 02/15/20 02/15/20 04:28 04:28 05:35 WBC RBC 2.88 L Hgb 8.6 L Hct 25.4 L D MCHC RDW 15.6 H Plt Count Lymph % (Auto) Gage % (Auto) Gage # Seg Neutrophils % Seg Neuts % (Manual) Lymphocytes % (Manual) Monocytes % (Manual) Nucleated RBC % Seg Neutrophils # Seg Neutrophils # Man Lymphocytes # (Manual) Monocytes # (Manual) Eosinophils # (Manual) PT INR APTT Heparin Anti-Xa Level ABG pH ABG pO2 ABG HCO3 ABG O2 Saturation ABG Base Excess ABG Hemoglobin Oxyhemoglobin Sodium Potassium Chloride Carbon Dioxide 12 L BUN 72 H Creatinine 4.7 H Glucose 147 H POC Glucose 181 H Calcium 7.9 L Phosphorus Magnesium Alkaline Phosphatase Total Protein Albumin Triglycerides Lipase Urine WBC (Auto) Urine Creatinine Urine Total Protein Crossmatch 02/15/20 02/15/20 02/15/20 12:07 17:50 23:18 WBC RBC Hgb Hct MCHC RDW Plt Count Lymph % (Auto) Gage % (Auto) Gage # Seg Neutrophils % Seg Neuts % (Manual) Lymphocytes % (Manual) Monocytes % (Manual) Nucleated RBC % Seg Neutrophils # Seg Neutrophils # Man Lymphocytes # (Manual) Monocytes # (Manual) Eosinophils # (Manual) PT INR APTT Heparin Anti-Xa Level ABG pH ABG pO2 ABG HCO3 ABG O2 Saturation ABG Base Excess ABG Hemoglobin Oxyhemoglobin Sodium Potassium Chloride Carbon Dioxide BUN Creatinine Glucose POC Glucose 136 H 177 H 284 H Calcium Phosphorus Magnesium Alkaline Phosphatase Total Protein Albumin Triglycerides Lipase Urine WBC (Auto) Urine Creatinine Urine Total Protein Crossmatch 02/16/20 02/16/20 02/16/20 04:20 05:24 05:29 WBC RBC Hgb Hct MCHC RDW Plt Count Lymph % (Auto) Gage % (Auto) Gage # Seg Neutrophils % Seg Neuts % (Manual) Lymphocytes % (Manual) Monocytes % (Manual) Nucleated RBC % Seg Neutrophils # Seg Neutrophils # Man Lymphocytes # (Manual) Monocytes # (Manual) Eosinophils # (Manual) PT INR APTT Heparin Anti-Xa Level ABG pH ABG pO2 77.4 L ABG HCO3 ABG O2 Saturation ABG Base Excess -4.7 L ABG Hemoglobin 5.0 L Oxyhemoglobin Sodium 135 L Potassium 3.0 L D Chloride 90.7 L Carbon Dioxide BUN 64 H Creatinine 4.7 H Glucose 491 H POC Glucose 282 H Calcium 7.2 L Phosphorus Magnesium Alkaline Phosphatase Total Protein Albumin Triglycerides Lipase Urine WBC (Auto) Urine Creatinine Urine Total Protein Crossmatch 02/16/20 02/16/20 02/16/20 05:29 05:29 08:39 WBC RBC 2.31 L Hgb 7.2 L Hct 20.2 L MCHC 36 H RDW 15.3 H Plt Count 115 L Lymph % (Auto) Gage % (Auto) Gage # Seg Neutrophils % Seg Neuts % (Manual) Lymphocytes % (Manual) Monocytes % (Manual) Nucleated RBC % Seg Neutrophils # Seg Neutrophils # Man Lymphocytes # (Manual) Monocytes # (Manual) Eosinophils # (Manual) PT INR APTT Heparin Anti-Xa Level ABG pH ABG pO2 ABG HCO3 ABG O2 Saturation ABG Base Excess ABG Hemoglobin Oxyhemoglobin Sodium Potassium Chloride Carbon Dioxide BUN Creatinine Glucose POC Glucose Calcium Phosphorus Magnesium Alkaline Phosphatase Total Protein Albumin Triglycerides 716 H Lipase Urine WBC (Auto) Urine Creatinine Urine Total Protein Crossmatch See Detail 02/16/20 02/16/20 02/17/20 12:27 19:04 00:02 WBC RBC Hgb Hct MCHC RDW Plt Count Lymph % (Auto) Gage % (Auto) Gage # Seg Neutrophils % Seg Neuts % (Manual) Lymphocytes % (Manual) Monocytes % (Manual) Nucleated RBC % Seg Neutrophils # Seg Neutrophils # Man Lymphocytes # (Manual) Monocytes # (Manual) Eosinophils # (Manual) PT INR APTT Heparin Anti-Xa Level ABG pH ABG pO2 ABG HCO3 ABG O2 Saturation ABG Base Excess ABG Hemoglobin Oxyhemoglobin Sodium Potassium Chloride Carbon Dioxide BUN Creatinine Glucose POC Glucose 314 H 203 H 202 H Calcium Phosphorus Magnesium Alkaline Phosphatase Total Protein Albumin Triglycerides Lipase Urine WBC (Auto) Urine Creatinine Urine Total Protein Crossmatch 02/17/20 02/17/20 02/17/20 03:45 03:45 03:45 WBC RBC Hgb 9.9 L Hct 30.1 L D MCHC RDW Plt Count Lymph % (Auto) Gage % (Auto) Gage # Seg Neutrophils % Seg Neuts % (Manual) Lymphocytes % (Manual) Monocytes % (Manual) Nucleated RBC % Seg Neutrophils # Seg Neutrophils # Man Lymphocytes # (Manual) Monocytes # (Manual) Eosinophils # (Manual) PT INR APTT Heparin Anti-Xa Level ABG pH ABG pO2 ABG HCO3 ABG O2 Saturation ABG Base Excess ABG Hemoglobin Oxyhemoglobin Sodium Potassium Chloride Carbon Dioxide 21 L BUN 63 H Creatinine 5.2 H Glucose 134 H POC Glucose Calcium 7.6 L Phosphorus Magnesium Alkaline Phosphatase Total Protein Albumin Triglycerides 238 H Lipase Urine WBC (Auto) Urine Creatinine Urine Total Protein Crossmatch 02/17/20 02/17/20 02/17/20 04:06 05:21 12:08 WBC RBC Hgb Hct MCHC RDW Plt Count Lymph % (Auto) Gage % (Auto) Gage # Seg Neutrophils % Seg Neuts % (Manual) Lymphocytes % (Manual) Monocytes % (Manual) Nucleated RBC % Seg Neutrophils # Seg Neutrophils # Man Lymphocytes # (Manual) Monocytes # (Manual) Eosinophils # (Manual) PT INR APTT Heparin Anti-Xa Level ABG pH 7.288 L ABG pO2 ABG HCO3 ABG O2 Saturation ABG Base Excess -4.9 L ABG Hemoglobin 9.7 L Oxyhemoglobin 94.0 L Sodium Potassium Chloride Carbon Dioxide BUN Creatinine Glucose POC Glucose 132 H 141 H Calcium Phosphorus Magnesium Alkaline Phosphatase Total Protein Albumin Triglycerides Lipase Urine WBC (Auto) Urine Creatinine Urine Total Protein Crossmatch 02/17/20 02/17/20 02/17/20 18:07 19:54 23:13 WBC RBC Hgb Hct MCHC RDW Plt Count Lymph % (Auto) Gage % (Auto) Gage # Seg Neutrophils % Seg Neuts % (Manual) Lymphocytes % (Manual) Monocytes % (Manual) Nucleated RBC % Seg Neutrophils # Seg Neutrophils # Man Lymphocytes # (Manual) Monocytes # (Manual) Eosinophils # (Manual) PT INR APTT Heparin Anti-Xa Level < 0.10 L ABG pH ABG pO2 ABG HCO3 ABG O2 Saturation ABG Base Excess ABG Hemoglobin Oxyhemoglobin Sodium Potassium Chloride Carbon Dioxide BUN Creatinine Glucose POC Glucose 189 H 167 H Calcium Phosphorus Magnesium Alkaline Phosphatase Total Protein Albumin Triglycerides Lipase Urine WBC (Auto) Urine Creatinine Urine Total Protein Crossmatch 02/18/20 02/18/20 02/18/20 03:41 04:37 05:44 WBC RBC Hgb Hct MCHC RDW Plt Count Lymph % (Auto) Gage % (Auto) Gage # Seg Neutrophils % Seg Neuts % (Manual) Lymphocytes % (Manual) Monocytes % (Manual) Nucleated RBC % Seg Neutrophils # Seg Neutrophils # Man Lymphocytes # (Manual) Monocytes # (Manual) Eosinophils # (Manual) PT INR APTT Heparin Anti-Xa Level ABG pH 7.281 L ABG pO2 74.5 L ABG HCO3 16.2 L ABG O2 Saturation 94.3 L ABG Base Excess -9.7 L ABG Hemoglobin 9.8 L Oxyhemoglobin 92.1 L Sodium Potassium Chloride Carbon Dioxide 15 L BUN 65 H Creatinine 5.1 H Glucose 117 H POC Glucose 112 H Calcium 7.7 L Phosphorus Magnesium Alkaline Phosphatase Total Protein Albumin Triglycerides Lipase Urine WBC (Auto) Urine Creatinine Urine Total Protein Crossmatch 02/18/20 02/18/20 02/18/20 09:00 09:00 12:41 WBC 14.9 H RBC 2.99 L Hgb 8.8 L Hct 27.1 L MCHC RDW 15.8 H Plt Count 131 L Lymph % (Auto) Gage % (Auto) Gage # Seg Neutrophils % Seg Neuts % (Manual) Lymphocytes % (Manual) Monocytes % (Manual) Nucleated RBC % Seg Neutrophils # Seg Neutrophils # Man Lymphocytes # (Manual) Monocytes # (Manual) Eosinophils # (Manual) PT INR APTT Heparin Anti-Xa Level ABG pH ABG pO2 ABG HCO3 ABG O2 Saturation ABG Base Excess ABG Hemoglobin Oxyhemoglobin Sodium Potassium Chloride Carbon Dioxide BUN Creatinine Glucose POC Glucose 140 H Calcium Phosphorus 6.40 H Magnesium 1.30 L Alkaline Phosphatase Total Protein Albumin Triglycerides Lipase Urine WBC (Auto) Urine Creatinine Urine Total Protein Crossmatch 02/18/20 02/18/20 02/19/20 17:58 23:06 03:50 WBC RBC Hgb Hct MCHC RDW Plt Count Lymph % (Auto) Gage % (Auto) Gage # Seg Neutrophils % Seg Neuts % (Manual) Lymphocytes % (Manual) Monocytes % (Manual) Nucleated RBC % Seg Neutrophils # Seg Neutrophils # Man Lymphocytes # (Manual) Monocytes # (Manual) Eosinophils # (Manual) PT INR APTT Heparin Anti-Xa Level ABG pH 7.243 L ABG pO2 75.3 L ABG HCO3 11.8 L ABG O2 Saturation 94.0 L ABG Base Excess -14.1 L ABG Hemoglobin 9.6 L Oxyhemoglobin 91.8 L Sodium Potassium Chloride Carbon Dioxide BUN Creatinine Glucose POC Glucose 141 H 212 H Calcium Phosphorus Magnesium Alkaline Phosphatase Total Protein Albumin Triglycerides Lipase Urine WBC (Auto) Urine Creatinine Urine Total Protein Crossmatch 02/19/20 02/19/20 02/19/20 04:30 04:30 04:30 WBC 19.8 H RBC 3.19 L Hgb 9.1 L Hct 28.9 L MCHC RDW 15.5 H Plt Count Lymph % (Auto) Gage % (Auto) Gage # Seg Neutrophils % Seg Neuts % (Manual) 86.0 H Lymphocytes % (Manual) 5.0 L Monocytes % (Manual) Nucleated RBC % Seg Neutrophils # Seg Neutrophils # Man 17.0 H Lymphocytes # (Manual) 1.0 L Monocytes # (Manual) 1.4 H Eosinophils # (Manual) PT INR APTT Heparin Anti-Xa Level ABG pH ABG pO2 ABG HCO3 ABG O2 Saturation ABG Base Excess ABG Hemoglobin Oxyhemoglobin Sodium 136 L Potassium Chloride Carbon Dioxide 12 L BUN 76 H Creatinine 5.2 H Glucose 228 H POC Glucose Calcium Phosphorus 8.00 H D Magnesium Alkaline Phosphatase Total Protein Albumin Triglycerides Lipase Urine WBC (Auto) Urine Creatinine Urine Total Protein Crossmatch 02/19/20 02/19/20 02/19/20 06:19 11:37 14:00 WBC RBC Hgb Hct MCHC RDW Plt Count Lymph % (Auto) Gage % (Auto) Gage # Seg Neutrophils % Seg Neuts % (Manual) Lymphocytes % (Manual) Monocytes % (Manual) Nucleated RBC % Seg Neutrophils # Seg Neutrophils # Man Lymphocytes # (Manual) Monocytes # (Manual) Eosinophils # (Manual) PT INR APTT Heparin Anti-Xa Level ABG pH ABG pO2 ABG HCO3 ABG O2 Saturation ABG Base Excess ABG Hemoglobin Oxyhemoglobin Sodium 132 L Potassium Chloride 95.4 L Carbon Dioxide 15 L BUN 75 H Creatinine 5.2 H Glucose 526 H* POC Glucose 253 H 288 H Calcium 7.6 L Phosphorus Magnesium Alkaline Phosphatase Total Protein Albumin Triglycerides Lipase Urine WBC (Auto) Urine Creatinine Urine Total Protein Crossmatch 02/19/20 02/19/20 02/19/20 14:00 15:07 17:40 WBC RBC Hgb Hct MCHC RDW Plt Count Lymph % (Auto) Gage % (Auto) Gage # Seg Neutrophils % Seg Neuts % (Manual) Lymphocytes % (Manual) Monocytes % (Manual) Nucleated RBC % Seg Neutrophils # Seg Neutrophils # Man Lymphocytes # (Manual) Monocytes # (Manual) Eosinophils # (Manual) PT INR APTT Heparin Anti-Xa Level ABG pH ABG pO2 ABG HCO3 ABG O2 Saturation ABG Base Excess ABG Hemoglobin Oxyhemoglobin Sodium Potassium Chloride Carbon Dioxide BUN Creatinine Glucose POC Glucose 324 H 328 H Calcium Phosphorus Magnesium Alkaline Phosphatase Total Protein Albumin Triglycerides Lipase Urine WBC (Auto) 166.0 H Urine Creatinine Urine Total Protein Crossmatch 02/19/20 02/20/20 02/20/20 23:40 03:15 03:15 WBC RBC Hgb Hct MCHC RDW Plt Count Lymph % (Auto) Gage % (Auto) Gage # Seg Neutrophils % Seg Neuts % (Manual) Lymphocytes % (Manual) Monocytes % (Manual) Nucleated RBC % Seg Neutrophils # Seg Neutrophils # Man Lymphocytes # (Manual) Monocytes # (Manual) Eosinophils # (Manual) PT INR APTT Heparin Anti-Xa Level 0.19 L ABG pH ABG pO2 ABG HCO3 ABG O2 Saturation ABG Base Excess ABG Hemoglobin Oxyhemoglobin Sodium Potassium 3.5 L D Chloride Carbon Dioxide 19 L BUN 85 H Creatinine 5.4 H Glucose 353 H POC Glucose 390 H Calcium 8.3 L Phosphorus 6.50 H Magnesium Alkaline Phosphatase Total Protein Albumin Triglycerides Lipase Urine WBC (Auto) Urine Creatinine Urine Total Protein Crossmatch 02/20/20 02/20/20 02/20/20 03:15 04:29 05:21 WBC 13.6 H RBC 2.43 L Hgb 7.1 L Hct 21.3 L D MCHC RDW Plt Count 136 L Lymph % (Auto) Gage % (Auto) Gage # Seg Neutrophils % Seg Neuts % (Manual) 81.0 H Lymphocytes % (Manual) 5.0 L Monocytes % (Manual) Nucleated RBC % Seg Neutrophils # Seg Neutrophils # Man 11.0 H Lymphocytes # (Manual) 0.7 L Monocytes # (Manual) Eosinophils # (Manual) PT INR APTT Heparin Anti-Xa Level ABG pH ABG pO2 ABG HCO3 ABG O2 Saturation ABG Base Excess -3.8 L ABG Hemoglobin 6.0 L Oxyhemoglobin 94.6 L Sodium Potassium Chloride Carbon Dioxide BUN Creatinine Glucose POC Glucose 400 H Calcium Phosphorus Magnesium Alkaline Phosphatase Total Protein Albumin Triglycerides Lipase Urine WBC (Auto) Urine Creatinine Urine Total Protein Crossmatch 02/20/20 02/20/20 02/20/20 11:52 18:30 20:02 WBC RBC Hgb Hct MCHC RDW Plt Count Lymph % (Auto) Gage % (Auto) Gage # Seg Neutrophils % Seg Neuts % (Manual) Lymphocytes % (Manual) Monocytes % (Manual) Nucleated RBC % Seg Neutrophils # Seg Neutrophils # Man Lymphocytes # (Manual) Monocytes # (Manual) Eosinophils # (Manual) PT INR APTT Heparin Anti-Xa Level ABG pH ABG pO2 ABG HCO3 ABG O2 Saturation ABG Base Excess ABG Hemoglobin Oxyhemoglobin Sodium Potassium Chloride Carbon Dioxide BUN Creatinine Glucose 584 H* POC Glucose 348 H 422 H Calcium Phosphorus Magnesium Alkaline Phosphatase Total Protein Albumin Triglycerides Lipase Urine WBC (Auto) Urine Creatinine Urine Total Protein Crossmatch 02/20/20 02/21/20 02/21/20 23:31 03:53 03:53 WBC RBC Hgb 5.9 L* Hct 18.5 L* MCHC RDW Plt Count Lymph % (Auto) Gage % (Auto) Gage # Seg Neutrophils % Seg Neuts % (Manual) Lymphocytes % (Manual) Monocytes % (Manual) Nucleated RBC % Seg Neutrophils # Seg Neutrophils # Man Lymphocytes # (Manual) Monocytes # (Manual) Eosinophils # (Manual) PT INR APTT Heparin Anti-Xa Level 1.13 H ABG pH ABG pO2 ABG HCO3 ABG O2 Saturation ABG Base Excess ABG Hemoglobin Oxyhemoglobin Sodium Potassium Chloride Carbon Dioxide BUN Creatinine Glucose POC Glucose 341 H Calcium Phosphorus Magnesium Alkaline Phosphatase Total Protein Albumin Triglycerides Lipase Urine WBC (Auto) Urine Creatinine Urine Total Protein Crossmatch 02/21/20 02/21/20 02/21/20 03:53 04:16 06:00 WBC RBC Hgb Hct MCHC RDW Plt Count Lymph % (Auto) Gage % (Auto) Gage # Seg Neutrophils % Seg Neuts % (Manual) Lymphocytes % (Manual) Monocytes % (Manual) Nucleated RBC % Seg Neutrophils # Seg Neutrophils # Man Lymphocytes # (Manual) Monocytes # (Manual) Eosinophils # (Manual) PT INR APTT Heparin Anti-Xa Level ABG pH 7.318 L ABG pO2 100.0 H ABG HCO3 ABG O2 Saturation ABG Base Excess -4.4 L ABG Hemoglobin 9.1 L Oxyhemoglobin Sodium 136 L Potassium Chloride 97.5 L Carbon Dioxide 21 L BUN 97 H Creatinine 5.3 H Glucose 246 H POC Glucose Calcium 8.1 L Phosphorus Magnesium Alkaline Phosphatase Total Protein Albumin Triglycerides Lipase Urine WBC (Auto) Urine Creatinine Urine Total Protein Crossmatch See Detail 02/21/20 02/21/20 02/21/20 06:32 11:45 17:40 WBC RBC Hgb Hct MCHC RDW Plt Count Lymph % (Auto) Gage % (Auto) Gage # Seg Neutrophils % Seg Neuts % (Manual) Lymphocytes % (Manual) Monocytes % (Manual) Nucleated RBC % Seg Neutrophils # Seg Neutrophils # Man Lymphocytes # (Manual) Monocytes # (Manual) Eosinophils # (Manual) PT INR APTT Heparin Anti-Xa Level ABG pH ABG pO2 ABG HCO3 ABG O2 Saturation ABG Base Excess ABG Hemoglobin Oxyhemoglobin Sodium Potassium Chloride Carbon Dioxide BUN Creatinine Glucose POC Glucose 317 H 389 H 387 H Calcium Phosphorus Magnesium Alkaline Phosphatase Total Protein Albumin Triglycerides Lipase Urine WBC (Auto) Urine Creatinine Urine Total Protein Crossmatch 02/21/20 02/22/20 02/22/20 23:37 03:16 03:16 WBC 22.8 H RBC 2.49 L Hgb 7.4 L Hct 22.7 L MCHC RDW 15.6 H Plt Count Lymph % (Auto) Gage % (Auto) Gage # Seg Neutrophils % Seg Neuts % (Manual) 74.0 H Lymphocytes % (Manual) 8.5 L Monocytes % (Manual) 13.5 H Nucleated RBC % 2.5 H Seg Neutrophils # Seg Neutrophils # Man 16.9 H Lymphocytes # (Manual) Monocytes # (Manual) 3.1 H Eosinophils # (Manual) 0.5 H PT INR APTT Heparin Anti-Xa Level 0.27 L ABG pH ABG pO2 ABG HCO3 ABG O2 Saturation ABG Base Excess ABG Hemoglobin Oxyhemoglobin Sodium Potassium Chloride Carbon Dioxide BUN Creatinine Glucose POC Glucose 297 H Calcium Phosphorus Magnesium Alkaline Phosphatase Total Protein Albumin Triglycerides Lipase Urine WBC (Auto) Urine Creatinine Urine Total Protein Crossmatch 02/22/20 02/22/20 02/22/20 03:16 05:16 11:50 WBC RBC Hgb Hct MCHC RDW Plt Count Lymph % (Auto) Gage % (Auto) Gage # Seg Neutrophils % Seg Neuts % (Manual) Lymphocytes % (Manual) Monocytes % (Manual) Nucleated RBC % Seg Neutrophils # Seg Neutrophils # Man Lymphocytes # (Manual) Monocytes # (Manual) Eosinophils # (Manual) PT INR APTT Heparin Anti-Xa Level ABG pH ABG pO2 ABG HCO3 ABG O2 Saturation ABG Base Excess ABG Hemoglobin Oxyhemoglobin Sodium 135 L Potassium Chloride 95.2 L Carbon Dioxide BUN 83 H Creatinine 4.3 H Glucose 264 H POC Glucose 321 H 351 H Calcium 8.1 L Phosphorus 4.60 H Magnesium Alkaline Phosphatase Total Protein Albumin Triglycerides Lipase Urine WBC (Auto) Urine Creatinine Urine Total Protein Crossmatch 02/22/20 02/23/20 02/23/20 17:26 00:04 02:55 WBC 25.6 H RBC 1.86 L Hgb 5.7 L* Hct 17.3 L* MCHC RDW 16.0 H Plt Count Lymph % (Auto) Gage % (Auto) Gage # Seg Neutrophils % Seg Neuts % (Manual) 80.5 H Lymphocytes % (Manual) 9.5 L Monocytes % (Manual) Nucleated RBC % 1.0 H Seg Neutrophils # Seg Neutrophils # Man 20.6 H Lymphocytes # (Manual) Monocytes # (Manual) 1.5 H Eosinophils # (Manual) PT INR APTT Heparin Anti-Xa Level ABG pH ABG pO2 ABG HCO3 ABG O2 Saturation ABG Base Excess ABG Hemoglobin Oxyhemoglobin Sodium Potassium Chloride Carbon Dioxide BUN Creatinine Glucose POC Glucose 356 H 359 H Calcium Phosphorus Magnesium Alkaline Phosphatase Total Protein Albumin Triglycerides Lipase Urine WBC (Auto) Urine Creatinine Urine Total Protein Crossmatch 02/23/20 02/23/20 02/23/20 02:55 02:55 05:33 WBC RBC Hgb Hct MCHC RDW Plt Count Lymph % (Auto) Gage % (Auto) Gage # Seg Neutrophils % Seg Neuts % (Manual) Lymphocytes % (Manual) Monocytes % (Manual) Nucleated RBC % Seg Neutrophils # Seg Neutrophils # Man Lymphocytes # (Manual) Monocytes # (Manual) Eosinophils # (Manual) PT INR APTT Heparin Anti-Xa Level 0.15 L ABG pH ABG pO2 ABG HCO3 ABG O2 Saturation ABG Base Excess ABG Hemoglobin Oxyhemoglobin Sodium 130 L Potassium Chloride 92.8 L Carbon Dioxide BUN 94 H Creatinine 4.7 H Glucose 293 H POC Glucose 330 H Calcium Phosphorus Magnesium Alkaline Phosphatase Total Protein Albumin Triglycerides Lipase Urine WBC (Auto) Urine Creatinine Urine Total Protein Crossmatch 02/23/20 02/23/20 02/23/20 12:03 13:13 18:34 WBC 24.2 H RBC 2.61 L Hgb 8.3 L Hct 24.4 L D MCHC RDW Plt Count 125 L Lymph % (Auto) Gage % (Auto) Gage # Seg Neutrophils % Seg Neuts % (Manual) Lymphocytes % (Manual) Monocytes % (Manual) Nucleated RBC % Seg Neutrophils # Seg Neutrophils # Man Lymphocytes # (Manual) Monocytes # (Manual) Eosinophils # (Manual) PT INR APTT Heparin Anti-Xa Level ABG pH ABG pO2 ABG HCO3 ABG O2 Saturation ABG Base Excess ABG Hemoglobin Oxyhemoglobin Sodium Potassium Chloride Carbon Dioxide BUN Creatinine Glucose POC Glucose 310 H 337 H Calcium Phosphorus Magnesium Alkaline Phosphatase Total Protein Albumin Triglycerides Lipase Urine WBC (Auto) Urine Creatinine Urine Total Protein Crossmatch 02/23/20 02/24/20 02/24/20 22:28 05:25 05:40 WBC 21.0 H RBC 2.40 L Hgb 7.3 L Hct 23.4 L MCHC RDW 15.8 H Plt Count 120 L Lymph % (Auto) Gage % (Auto) Gage # Seg Neutrophils % Seg Neuts % (Manual) 87.0 H Lymphocytes % (Manual) 5.0 L Monocytes % (Manual) Nucleated RBC % 1.0 H Seg Neutrophils # Seg Neutrophils # Man 18.3 H Lymphocytes # (Manual) 1.1 L Monocytes # (Manual) 1.1 H Eosinophils # (Manual) PT INR APTT Heparin Anti-Xa Level ABG pH ABG pO2 ABG HCO3 ABG O2 Saturation ABG Base Excess ABG Hemoglobin Oxyhemoglobin Sodium Potassium Chloride Carbon Dioxide BUN Creatinine Glucose POC Glucose 314 H 307 H Calcium Phosphorus Magnesium Alkaline Phosphatase Total Protein Albumin Triglycerides Lipase Urine WBC (Auto) Urine Creatinine Urine Total Protein Crossmatch 02/24/20 02/24/20 02/24/20 05:40 09:05 12:11 WBC RBC Hgb Hct MCHC RDW Plt Count Lymph % (Auto) Gage % (Auto) Gage # Seg Neutrophils % Seg Neuts % (Manual) Lymphocytes % (Manual) Monocytes % (Manual) Nucleated RBC % Seg Neutrophils # Seg Neutrophils # Man Lymphocytes # (Manual) Monocytes # (Manual) Eosinophils # (Manual) PT INR APTT Heparin Anti-Xa Level ABG pH ABG pO2 ABG HCO3 ABG O2 Saturation ABG Base Excess ABG Hemoglobin Oxyhemoglobin Sodium 123 L D 134 L D Potassium 6.8 H* D Chloride 88.1 L 96 L Carbon Dioxide 19 L BUN 83 H 89 H Creatinine 3.9 H 4.2 H Glucose 657 H* 262 H POC Glucose 217 H Calcium 8.1 L Phosphorus 4.90 H Magnesium 2.50 H Alkaline Phosphatase Total Protein Albumin Triglycerides Lipase Urine WBC (Auto) Urine Creatinine Urine Total Protein Crossmatch 02/24/20 02/24/20 02/25/20 17:58 23:23 05:25 WBC 25.3 H RBC 2.59 L Hgb 8.1 L Hct 23.9 L MCHC RDW Plt Count Lymph % (Auto) Gage % (Auto) Gage # Seg Neutrophils % Seg Neuts % (Manual) 87.0 H Lymphocytes % (Manual) 6.0 L Monocytes % (Manual) Nucleated RBC % Seg Neutrophils # Seg Neutrophils # Man 22.0 H Lymphocytes # (Manual) Monocytes # (Manual) 1.5 H Eosinophils # (Manual) PT INR APTT Heparin Anti-Xa Level ABG pH ABG pO2 ABG HCO3 ABG O2 Saturation ABG Base Excess ABG Hemoglobin Oxyhemoglobin Sodium Potassium Chloride Carbon Dioxide BUN Creatinine Glucose POC Glucose 236 H 223 H Calcium Phosphorus Magnesium Alkaline Phosphatase Total Protein Albumin Triglycerides Lipase Urine WBC (Auto) Urine Creatinine Urine Total Protein Crossmatch 02/25/20 02/25/20 02/25/20 05:25 05:40 11:47 WBC RBC Hgb Hct MCHC RDW Plt Count Lymph % (Auto) Gage % (Auto) Gage # Seg Neutrophils % Seg Neuts % (Manual) Lymphocytes % (Manual) Monocytes % (Manual) Nucleated RBC % Seg Neutrophils # Seg Neutrophils # Man Lymphocytes # (Manual) Monocytes # (Manual) Eosinophils # (Manual) PT INR APTT Heparin Anti-Xa Level ABG pH ABG pO2 ABG HCO3 ABG O2 Saturation ABG Base Excess ABG Hemoglobin Oxyhemoglobin Sodium 132 L Potassium Chloride 94.9 L Carbon Dioxide BUN 100 H Creatinine 4.9 H Glucose 174 H POC Glucose 173 H 154 H Calcium Phosphorus Magnesium Alkaline Phosphatase Total Protein 5.0 L Albumin 2.3 L Triglycerides Lipase Urine WBC (Auto) Urine Creatinine Urine Total Protein Crossmatch 02/25/20 02/25/20 02/26/20 17:53 23:49 05:00 WBC 16.2 H RBC 2.36 L Hgb 7.4 L Hct 22.0 L MCHC RDW 15.5 H Plt Count Lymph % (Auto) 7.8 L Gage % (Auto) 8.5 H Gage # 1.4 H Seg Neutrophils % 83.1 H Seg Neuts % (Manual) Lymphocytes % (Manual) Monocytes % (Manual) Nucleated RBC % Seg Neutrophils # 13.5 H Seg Neutrophils # Man Lymphocytes # (Manual) Monocytes # (Manual) Eosinophils # (Manual) PT INR APTT Heparin Anti-Xa Level ABG pH ABG pO2 ABG HCO3 ABG O2 Saturation ABG Base Excess ABG Hemoglobin Oxyhemoglobin Sodium Potassium Chloride Carbon Dioxide BUN Creatinine Glucose POC Glucose 131 H 124 H Calcium Phosphorus Magnesium Alkaline Phosphatase Total Protein Albumin Triglycerides Lipase Urine WBC (Auto) Urine Creatinine Urine Total Protein Crossmatch 02/26/20 02/26/20 02/26/20 05:00 17:25 23:19 WBC RBC Hgb Hct MCHC RDW Plt Count Lymph % (Auto) Gage % (Auto) Gage # Seg Neutrophils % Seg Neuts % (Manual) Lymphocytes % (Manual) Monocytes % (Manual) Nucleated RBC % Seg Neutrophils # Seg Neutrophils # Man Lymphocytes # (Manual) Monocytes # (Manual) Eosinophils # (Manual) PT INR APTT Heparin Anti-Xa Level ABG pH ABG pO2 ABG HCO3 ABG O2 Saturation ABG Base Excess ABG Hemoglobin Oxyhemoglobin Sodium Potassium Chloride Carbon Dioxide BUN 74 H Creatinine 4.1 H Glucose POC Glucose 123 H 130 H Calcium Phosphorus Magnesium Alkaline Phosphatase Total Protein Albumin Triglycerides Lipase Urine WBC (Auto) Urine Creatinine Urine Total Protein Crossmatch 02/27/20 02/27/20 02/27/20 05:40 11:55 18:17 WBC RBC Hgb Hct MCHC RDW Plt Count Lymph % (Auto) Gage % (Auto) Gage # Seg Neutrophils % Seg Neuts % (Manual) Lymphocytes % (Manual) Monocytes % (Manual) Nucleated RBC % Seg Neutrophils # Seg Neutrophils # Man Lymphocytes # (Manual) Monocytes # (Manual) Eosinophils # (Manual) PT INR APTT Heparin Anti-Xa Level ABG pH ABG pO2 ABG HCO3 ABG O2 Saturation ABG Base Excess ABG Hemoglobin Oxyhemoglobin Sodium Potassium Chloride Carbon Dioxide BUN Creatinine Glucose POC Glucose 203 H 297 H 317 H Calcium Phosphorus Magnesium Alkaline Phosphatase Total Protein Albumin Triglycerides Lipase Urine WBC (Auto) Urine Creatinine Urine Total Protein Crossmatch 02/27/20 02/28/20 23:55 05:22 WBC RBC Hgb Hct MCHC RDW Plt Count Lymph % (Auto) Gage % (Auto) Gage # Seg Neutrophils % Seg Neuts % (Manual) Lymphocytes % (Manual) Monocytes % (Manual) Nucleated RBC % Seg Neutrophils # Seg Neutrophils # Man Lymphocytes # (Manual) Monocytes # (Manual) Eosinophils # (Manual) PT INR APTT Heparin Anti-Xa Level ABG pH ABG pO2 ABG HCO3 ABG O2 Saturation ABG Base Excess ABG Hemoglobin Oxyhemoglobin Sodium Potassium Chloride Carbon Dioxide BUN Creatinine Glucose POC Glucose 371 H 380 H Calcium Phosphorus Magnesium Alkaline Phosphatase Total Protein Albumin Triglycerides Lipase Urine WBC (Auto) Urine Creatinine Urine Total Protein Crossmatch
[2020-02-28] MEDS: FAMOTIDINE 20 MG TAB PO SCH (09:29)
[2020-02-28] MEDS: INSULIN GLARGINE 100 UNITS/ML SUB-Q SCH ×2 (09:29→21:42)
[2020-02-28] MEDS: APIXABAN 5 MG TAB PO SCH ×2 (09:30→21:41)
[2020-02-28] MEDS: AMIODARONE 200 MG TAB PO SCH (09:31)
[2020-02-28] MEDS: SERTRALINE 50 MG TAB PO SCH (09:31)
[2020-02-28 10:01] LABS: Hematocrit 22.6 % (30.3-42.9); Hemoglobin 7.3 gm/dl (10.1-14.3); Mean Corpuscular HGB Conc 32 % (30-34); Mean Corpuscular Volume 95 fl (79-97); Platelet Count 222 K/mm3 (140-440); Red Blood Count 2.37 M/mm3 (3.65-5.03); Red Cell Distribution Width 16.6 % (13.2-15.2)
[2020-02-28 10:22] LABS: Calcium 8.2 mg/dL (8.4-10.2)
--- NOTE | 2020-02-28 10:47 | Progress Note ---
Assessment and Plan - Patient Problems (1) Atrial fibrillation Current Visit: Yes Status: Acute Plan to address problem: Paroxysmal atrial fibrillation, will continue medical therapy as previously outlined. Subjective Date of service: 02/28/20 Principal diagnosis: Ischemic Bowel Interval history: Patient is sedated, on the vent. 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 Blood pressure is 157 systolic. Objective Vital Signs Temp Pulse Pulse Resp BP Pulse Ox Pulse Ox 02/28/20 08:30 109 H 24 157/108 100 02/28/20 08:00 98.5 F 109 H 110 H 26 H 166/104 100 02/28/20 07:30 107 H 17 167/98 100 02/28/20 07:25 106 H 153/99 100 02/28/20 07:00 89 21 127/67 100 02/28/20 06:30 89 21 111/66 100 02/28/20 06:00 84 19 136/64 100 02/28/20 05:30 88 22 146/71 100 02/28/20 05:00 93 H 21 148/78 100 02/28/20 04:30 88 23 149/77 100 02/28/20 04:24 18 100 02/28/20 04:00 88 25 H 148/79 100 02/28/20 03:30 87 22 153/102 100 02/28/20 03:23 97.7 F 02/28/20 03:10 113 H 177/123 02/28/20 03:00 113 H 23 177/123 99 02/28/20 02:30 89 21 164/81 100 02/28/20 02:00 89 18 120/64 100 02/28/20 01:30 89 20 145/91 100 02/28/20 01:00 114 H 24 166/103 100 02/28/20 00:30 112 H 26 H 182/104 99 02/28/20 00:15 111 H 02/28/20 00:00 110 H 23 177/108 99 02/27/20 23:59 107 H 177/106 02/27/20 23:49 98.3 F 02/27/20 23:30 111 H 19 187/104 100 02/27/20 23:13 111 H 187/104 100 02/27/20 23:00 111 H 22 148/106 100 02/27/20 22:30 108 H 26 H 172/105 100 02/27/20 22:00 110 H 22 171/104 100 02/27/20 21:30 103 H 25 H 172/100 100 02/27/20 21:01 86 27 H 146/70 100 02/27/20 20:43 83 24 115/55 100 02/27/20 20:31 87 22 131/87 100 02/27/20 20:00 103 H 24 167/78 100 02/27/20 19:50 98.6 F 02/27/20 19:30 110 H 22 153/89 100 02/27/20 19:18 105 H 158/59 02/27/20 19:00 119 H 23 169/98 99 02/27/20 18:30 110 H 23 168/97 100 02/27/20 18:01 118 H 16 165/90 99 02/27/20 17:30 119 H 25 H 154/87 100 02/27/20 17:00 120 H 26 H 147/80 100 02/27/20 16:30 112 H 22 145/70 100 02/27/20 16:00 101.3 F H 110 H 20 154/85 100 02/27/20 15:45 101.1 F H 102 H 19 135/72 99 02/27/20 15:35 111/58 02/27/20 15:31 117 H 28 H 113/66 98 02/27/20 15:12 94 H 148/75 02/27/20 15:05 101.3 F H 102 H 20 145/80 99 02/27/20 15:00 106 H 20 145/80 100 02/27/20 14:30 106 H 36 H 137/65 100 02/27/20 14:00 105 H 43 H 135/73 99 02/27/20 13:30 110 H 29 H 137/69 98 02/27/20 13:00 111 H 29 H 141/60 98 02/27/20 12:50 107 H 136/66 99 02/27/20 12:30 117 H 34 H 150/80 98 02/27/20 12:04 124 H 151/74 02/27/20 12:00 102.9 F H 120 H 23 151/74 98 02/27/20 11:30 119 H 35 H 151/78 98 02/27/20 11:00 119 H 41 H 153/93 98 - Physical Examination General: Other (Intubated, on the vent) HEENT: Positive: PERRL Neck: Positive: neck supple, trachea midline. Negative: JVD/HJR Cardiac: Positive: Regular Rhythm Lungs: Positive: Decreased Breath Sounds Neuro: Positive: Other (Intubated, on the vent) Abdomen: Positive: Distended Skin: Positive: Clear Extremities: Absent: edema - Labs and Meds CBC 02/28/20 Range/Units 09:25 WBC 15.1 H (4.5-11.0) K/mm3 RBC 2.37 L (3.65-5.03) M/mm3 Hgb 7.3 L (10.1-14.3) gm/dl Hct 22.6 L (30.3-42.9) % Plt Count 222 (140-440) K/mm3 Comprehensive Metabolic Panel 02/28/20 Range/Units 09:25 Sodium 137 (137-145) mmol/L Potassium 4.9 (3.6-5.0) mmol/L Chloride 98.1 (98-107) mmol/L Carbon Dioxide 18 L (22-30) mmol/L BUN 105 H (7-17) mg/dL Creatinine 5.9 H (0.7-1.2) mg/dL Glucose 370 H (65-100) mg/dL Calcium 8.2 L (8.4-10.2) mg/dL
[2020-02-28] MEDS: fentaNYL 100 MCG/2 ML INJ IV PRN ×2 (14:22→21:39)
[2020-02-28] MEDS ORDERED: FUROSEMIDE 100 MG/10 ML INJ IV ONE (14:29)
--- NOTE | 2020-02-28 14:39 | Progress Note ---
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 * leucocytosis * type 2 DM--uncontrolled * Acidosis * Hypokalemia * Hypocalcemia * Anemia * C diff + * Gram Positive Bacteremia Plan: * Remain hopeful for renal recovery with minimal HD needs in near future, but creatinine is uptrending off HD so do think she will need more renal replacement therapy * Tolerated HD well on 02/20, 02/22, 02/24 with reasonable UF * Unable to perform HD 02/26 due to issues with CVC; given bacteremia and CVC issues, temp CVC removed. Will follow but suspect patient will need CVC replacement, will hold off for now as no acute needs noted * Will order high dose Lasix 100mg IV to help promote diuresis given edema * BP remains high, may improve with diuresis but also would consider carvedilol instead of metoprolol if ok per cardiology as carvedilol may have better BP benefit * Insulin control per primary * Continue iv abx per ID recs * Surgery recs appreciated * PRBC transfusion prn per primary, holding heparin gtt * Daily lytes; strict i/os * Avoid nephrotoxins * vasopressors prn Thank for involving in the care of this critically ill patient. We will follow closely with you; please do not hesitate to call me on my cell at for any renal related issues. High risk for decompensation given clinical status Subjective Date of service: 02/28/20 Principal diagnosis: Ischemic Bowel Interval history: Chart reviewed for 24 hour events Objective - Exam Narrative Exam: Gen: Intubated, opens eyes ENT: ETT in place CV: s1, S2 Resp: on vent Abd: soft Ext: no c/c/e : corcoran with clear yellow urine Neuro: opens eye spontaneously - Vital Signs Vital signs: Vital Signs - 12hr 02/28/20 02/28/20 02/28/20 03:00 03:10 03:23 Temperature 97.7 F Pulse Rate 113 H 113 H Pulse Rate [ From Monitor] Respiratory 23 Rate Blood Pressure 177/123 177/123 O2 Sat by Pulse 99 Oximetry 02/28/20 02/28/20 02/28/20 03:30 04:00 04:24 Temperature Pulse Rate 87 88 Pulse Rate [ From Monitor] Respiratory 22 25 H 18 Rate Blood Pressure 153/102 148/79 O2 Sat by Pulse 100 100 100 Oximetry 02/28/20 02/28/20 02/28/20 04:30 05:00 05:30 Temperature Pulse Rate 88 93 H 88 Pulse Rate [ From Monitor] Respiratory 23 21 22 Rate Blood Pressure 149/77 148/78 146/71 O2 Sat by Pulse 100 100 100 Oximetry 02/28/20 02/28/20 02/28/20 06:00 06:30 07:00 Temperature Pulse Rate 84 89 89 Pulse Rate [ From Monitor] Respiratory 19 21 21 Rate Blood Pressure 136/64 111/66 127/67 O2 Sat by Pulse 100 100 100 Oximetry 02/28/20 02/28/20 02/28/20 07:25 07:30 08:00 Temperature 98.5 F Pulse Rate 106 H 107 H 109 H Pulse Rate [ 110 H From Monitor] Respiratory 17 26 H Rate Blood Pressure 153/99 167/98 166/104 O2 Sat by Pulse 100 100 100 Oximetry 02/28/20 02/28/20 02/28/20 08:30 08:35 09:00 Temperature Pulse Rate 109 H 118 H 115 H Pulse Rate [ From Monitor] Respiratory 24 33 H 34 H Rate Blood Pressure 157/108 157/86 160/105 O2 Sat by Pulse 100 100 99 Oximetry 02/28/20 02/28/20 02/28/20 09:30 10:00 10:30 Temperature Pulse Rate 116 H 111 H 116 H Pulse Rate [ From Monitor] Respiratory 33 H 33 H 26 H Rate Blood Pressure 157/96 157/86 160/97 O2 Sat by Pulse 99 100 100 Oximetry 02/28/20 02/28/20 02/28/20 11:00 11:30 12:00 Temperature 97.6 F Pulse Rate 99 H 98 H 111 H Pulse Rate [ 104 H From Monitor] Respiratory 25 H 23 23 Rate Blood Pressure 129/66 147/77 136/69 O2 Sat by Pulse 100 100 100 Oximetry 02/28/20 02/28/20 02/28/20 12:30 12:35 13:00 Temperature Pulse Rate 120 H 110 H 126 H Pulse Rate [ From Monitor] Respiratory 22 21 Rate Blood Pressure 161/105 161/105 167/93 O2 Sat by Pulse 100 100 Oximetry 02/28/20 02/28/20 13:30 14:22 Temperature Pulse Rate 100 H Pulse Rate [ From Monitor] Respiratory 22 22 Rate Blood Pressure 160/97 O2 Sat by Pulse 100 Oximetry - Lab 02/28/20 09:25 02/28/20 09:25 Most recent lab results ABG pH 7.318 pH Units (7.350-7.450) L 02/21/20 04:16 ABG pCO2 42.7 mm Hg 02/21/20 04:16 ABG pO2 100.0 mm Hg (80.0-90.0) H 02/21/20 04:16 ABG HCO3 21.4 mmol/L (20.0-26.0) 02/21/20 04:16 ABG O2 Saturation 97.2 % (95.0-99.0) 02/21/20 04:16 Calcium 8.2 mg/dL (8.4-10.2) L 02/28/20 09:25 Phosphorus 4.90 mg/dL (2.5-4.5) H 02/24/20 05:40 Magnesium 2.20 mg/dL (1.7-2.3) 02/25/20 05:25 Urine Creatinine 35.3 mg/dL (0.1-20.0) H 02/12/20 Unknown Urine Total Protein 796 mg/dL (5-11.8) H 02/12/20 Unknown Medications & Allergies - Medications Allergies/Adverse Reactions: Allergies clindamycin Allergy (Verified 02/11/20 14:52) Hives Home Medications: Home Medications Medication Instructions Recorded Confirmed Last Taken Type Doxazosin [Cardura] 4 mg PO QDAY 02/11/20 02/11/20 02/10/20 History Hydralazine HCl 50 mg PO DAILY 02/11/20 02/11/20 02/10/20 History Metoprolol 25 mg PO DAILY 02/11/20 02/11/20 02/10/20 History Sertraline [Zoloft] 50 mg PO QDAY 02/11/20 02/11/20 02/10/20 History amLODIPine [Norvasc] 10 mg PO DAILY 02/11/20 02/11/20 02/10/20 History glipiZIDE 10 mg PO BID 02/11/20 02/11/20 02/10/20 History Active Medications: Generic Name Dose Route Start Last Admin Trade Name Freq PRN Reason Stop Dose Admin Acetaminophen 650 mg 02/11/20 19:01 02/27/20 12:00 Tylenol PO 650 mg Q4H PRN Administration Pain MILD(1-3)/Fever >100.5/ADAMS Amiodarone HCl 200 mg 02/24/20 10:00 02/28/20 09:31 Cordarone PO 200 mg QDAY NADER Administration Lipase/Protease/Amylase 1 each 02/20/20 10:[address] 10,500 Unit FEEDTUBE PRN PRN For Clogged Feeding Tube Apixaban 10 mg 02/26/20 12:00 02/28/20 09:30 Eliquis PO 03/03/20 22:01 10 mg Q12HR NADER Administration Protocol Apixaban 5 mg 03/04/20 10:00 Eliquis PO Q12HR NADER Protocol Dextrose 50 ml 02/19/20 14:58 D50w (25gm) Syringe IV Q30MIN PRN Hypoglycemia Protocol Famotidine 20 mg 02/24/20 10:00 02/28/20 09:29 Pepcid PO 20 mg DAILY NADER Administration Fentanyl 50 mcg 02/19/20 15:30 02/27/20 02:20 Sublimaze IV 50 mcg Q10MIN PRN Administration ANALGESIA Fentanyl 50 mcg 02/24/20 09:52 02/28/20 14:22 Sublimaze IV 50 mcg Q2HR PRN Administration Pain, Moderate (4-6) Hydrophilic Ointment 1 applic 02/13/20 19:41 Vaseline Lip Therapy TP Q2HR PRN Dry Lips Sodium Chloride 100 mls @ 999 mls/hr 02/22/20 12:30 Nacl 0.9% IV FABIOLA PRN Hypotension Vancomycin HCl 500 mg/ Sodium 110 mls @ 66.667 mls/hr 02/28/20 15:00 Chloride IV 02/28/20 16:38 ONCE ONE Insulin Glargine 10 units 02/28/20 10:00 02/28/20 09:29 Lantus SUB-Q 10 units BID NADER Administration Insulin Human Lispro 0 unit 02/19/20 18:00 02/28/20 12:34 Humalog SUB-Q 10 unit Q6HR NADER Administration Protocol Labetalol HCl 20 mg 02/13/20 18:00 02/27/20 23:59 Labetalol IV 20 mg Q4H PRN Administration SBP >150 Metoprolol Tartrate 2.5 mg 02/13/20 18:00 02/27/20 02:34 Metoprolol IV 2.5 mg Q6HR PRN Administration HR >130 Metoprolol Tartrate 50 mg 02/26/20 11:00 02/28/20 12:35 Metoprolol PO 50 mg Q8H NADER Administration Multi-Ingred Cream/Lotion/Oil/Oint 1 applic 02/13/20 19:41 Artificial Tears Ophth Oint OU Q4HR PRN Dry Eye(s) Sertraline HCl 50 mg 02/23/20 10:00 02/28/20 09:31 Zoloft PO 50 mg QDAY NADER Administration Simple Syrup 15 ml 02/20/20 10:28 Simple Syrup FEEDTUBE PRN PRN Hypoglycemia Simple Syrup 30 ml 02/20/20 10:28 Simple Syrup FEEDTUBE PRN PRN Hypoglycemia Sodium Bicarbonate 325 mg 02/20/20 10:28 Sodium Bicarbonate FEEDTUBE PRN PRN For Clogged Feeding Tube Sodium Chloride 10 ml 02/11/20 22:00 02/28/20 09:31 Sodium Chloride Flush Syringe 10 Ml IV 10 ml BID NADER Administration Sodium Chloride 10 ml 02/11/20 19:01 02/15/20 22:43 Sodium Chloride Flush Syringe 10 Ml IV 10 ml PRN PRN Administration LINE FLUSH
[2020-02-28] MEDS ORDERED: VANCOMYCIN 500 MG in SODIUM CHLORIDE 0.9% 100 ML IV ONE (15:00)
--- NOTE | 2020-02-28 19:51 | Progress Note ---
Assessment and Plan Cultures: Blood culture 02/11/2020 no growth today Sputum culture 02/12/19 no growth today Sputum culture 02/13/19 usual resp sulaiman Blood culture 02/19/2020 no growth Cdiff toxin PCR Positive urine culture 02/19/2020 10-100K mult Blood culture 02/24/2020 with MRSE 4/4 Blood cultures 02/27/2020 pending A/P: 74-year-old female past medical history hypertension, diabetes, mitral valve prolapse, hyperlipidemia admitted with acute sepsis and abdominal pain #Acute sepsis: likely due to ischemic bowel. Leukocytosis again up and low grade fever likely due to gram-positive cocci bacteremia -improving #Gram-positive cocci bacteremia: Patient with a PICC line and a hemodialysis access #Peritonitis secondary to ischemia/gangrene of Small bowel and Cecum / ?SMA thrombosis: s/p Exploratory laparotomy, extensive small bowel resection, partial colon resection, placement of abthera vac on 02/13/2020. S/p exploratory laparotomy, enterocolonic anastamosis, closure of abdomen, application of wound vac on 02/15. on TPN #Respiratory failure: on BIPAP #Presumed infected renal cyst #Diabetes: Tight glycemic control for best outcomes #Diarrhea: resolved prior to presentation, doubt C diff, likely from ischemic bowel. #LITZY on CKD: Renally adjust antibiotics, worsening #Anemia/thrombocytopenia: from sepsis, severe anemia now, anticoagulation on hold. #Diarrhea? Cdiff toxin PCR Positive, can be colinization rather than patogenic Cdiff, should have a Cdiff EIA not available unfortunately. #UTI: corcoran replaced for I+O. #DVT on heparin gtt #RVR Afib on cardizem and amiodarone Recs: -Continue renally adjusted IV vancomycin given positive blood cultures. Goal trough 10-20 -Removal/exchange PICC and hemodialysis access -Follow-up repeat blood cultures -Completed vancomycin 125 mg QID -s/p cefepime and flagyl - [address] James will be covering Sunday Natalie Charles MD [facility] M: [phone] O: [phone] F: [phone] Subjective Date of service: 02/28/20 Principal diagnosis: Ischemic Bowel Interval history: Afebrile with a slightly improved white count now 15. Blood cultures speciated to staph epidermidis. Objective - Exam Narrative Exam: Constitutional: alert intubated Head, Ears, Nose: Normocephalic, atraumatic. Eyes: Conjunctivae/corneas clear. No icterus. No ptosis. Neck: Supple, no meningeal signs Oral: +ETT Cardiovascular: tachycardic Respiratory: Good air entry, clear to auscultation bilaterally GI: Soft, midline wound with VAC. Musculoskeletal:yareli arm edema Skin: No rash or abscess Hem/Lymphatic: No palpable cervical or supraclavicular nodes. No lymphangitis Psych: no agitated Neurological: alert - Constitutional Vitals: Vital Signs Temp Pulse Resp BP Pulse Ox 98.6 F 90 21 149/79 100 02/28/20 16:00 02/28/20 19:42 02/28/20 19:00 02/28/20 19:42 02/28/20 19:42 Temperature -Last 24 Hours Temperature 98.6 F Temperature 97.6 F Temperature 98.5 F Temperature 97.7 F Temperature 98.3 F - Labs CBC & Chem 7: 02/28/20 09:25 02/28/20 09:25 Labs: Abnormal lab results 02/27/20 02/28/20 02/28/20 Range/Units 23:55 05:22 09:25 WBC 15.1 H (4.5-11.0) K/mm3 RBC 2.37 L (3.65-5.03) M/mm3 Hgb 7.3 L (10.1-14.3) gm/dl Hct 22.6 L (30.3-42.9) % RDW 16.6 H (13.2-15.2) % Carbon Dioxide (22-30) mmol/L BUN (7-17) mg/dL Creatinine (0.7-1.2) mg/dL Glucose (65-100) mg/dL POC Glucose 371 H 380 H (70-105) Calcium (8.4-10.2) mg/dL 02/28/20 02/28/20 02/28/20 Range/Units 09:25 12:16 17:57 WBC (4.5-11.0) K/mm3 RBC (3.65-5.03) M/mm3 Hgb (10.1-14.3) gm/dl Hct (30.3-42.9) % RDW (13.2-15.2) % Carbon Dioxide 18 L (22-30) mmol/L BUN 105 H (7-17) mg/dL Creatinine 5.9 H (0.7-1.2) mg/dL Glucose 370 H (65-100) mg/dL POC Glucose 450 H 378 H (70-105) Calcium 8.2 L (8.4-10.2) mg/dL
--- NOTE | 2020-02-29 00:30 | Progress Note ---
Assessment and Plan Assessment and plan: --Febrile illness; afebrile last 24 hours secondary to sepsis,/gram-positive bacteremia --Gram-positive cocci bacteremia; staph epidermidis Evaluated by ID recommend removal or exchange of PICC line and hemodialysis access, Dialysis access removed, will request removal of PICC line, possible midline as needed follow repeat cultures . Continue vancomycin renally dosed --Uncontrolled diabetes Mellitus type 2: Slightly improved Increase Lantus 25 units subcu twice daily Accucheks and SSC, --Acute hypoxic resp failure: On ventilatory support unable to wean Wean as tolerated and extubate, pulmonary critical following --Anemia; requiring multiple units of PRBC, total 5 units transfusion Hb low stable, monitor H&H and transfuse additional PRBC as needed --Atrial fibrillation; rate controlled continue metoprolol and amiodarone Chronic anticoagulation Eliquis started, monitor for any bleeding --Sepsis: due to ischemic bowel. Completed antibiotics, ID surgery following --Peritonitis :secondary to ischemia/gangrene of Small bowel and Cecum. s/p Exploratory laparotomy, extensive small bowel resection, partial colon resection, placement of abthera vac on 02/13/2020. S/p exploratory laparotomy, enterocolonic anastamosis, closure of abdomen, application of wound vac on 02/15 --UTI : Completed antibiotics per ID. --C. difficile colitis. [Positive C. difficile test] contact isolation,s/p oral vancomycin --Diarrhea: resolved prior to presentation, doubt C diff, likely from ischemic bowel. --Presumed infected renal cyst. ID following --Hyponatremia; closely monitor electrolytes, mild improvement, resolved --LITZY on CKD: Renally adjust antibiotics, hemodialysis as needed nephrology following --Severe protein calorie malnutrition; nutrition supplements, Supportive care --Right saphenous vein DVT.s/p Anticoagulation No anticoagulation due to severe anemia, closely monitor 02/18/2020. Patient still with oral ETT on mechanical ventilation. Patient currently with PSVT trials, FiO2 30% pressure support 12 and PEEP 6. Continue to wean as tolerated. Consider extubation today. However, chest x-ray today reveals developing right pleural effusion. Continue wound care per wound team. Continue incisional wound VAC. Continue strict n.p.o. and NGT to low intermittent suction. Continue IV antibiotics per ID 02/19/2020. Patient currently with AC mode ventilation rate 16, tidal volume 450, FiO2 30%, PEEP 6. Continue to wean per protocol and pulmonary recommendations. Patient failed PSV secondary to tachypnea today. Continue wound care per wound team. Continue incisional wound VAC. Continue strict n.p.o. and NGT to low intermittent suction. Continue IV antibiotics per ID. Creatinine stable today at 5.1/5.2 and remains non-oliguric; no indication for renal replacement therapy emergently per nephrology. Nephrology to administer 100 mg of IV Lasix today to further promote diuresis and help with metabolic acidosis. Remains at high risk for needing renal replacement therapy 02/20/2020. Patient currently with AC mode ventilation rate 16, tidal volume 450, FiO2 30%, PEEP 6. Continue to wean per protocol and pulmonary recommendations. Patient failed PSV trials. Patient with right lower extremity DVT. Continue anticoagulation which patient is currently on. Patient also with C. difficile colitis/C. difficile positive. We will start p.o. vancomycin. Acute kidney injury on CKD continues to worsen. Therefore, patient will likely need hemodialysis. Defer to nephrology. 02/21/2020. Patient remains on mechanical ventilation AC mode, rate 16, tidal volume 450, FiO2 30%. Continue weaning per protocol. 2 units PRBCs ordered stat for severe anemia. Follow-up CBC posttransfusion. Patient currently on anticoagulation for right lower extremity DVT. Continue wound care. BG elevated in the 300s. We will start Lantus 10 units at bedtime. 02/22/2020. Patient remains on mechanical ventilation AC mode rate 16, tidal volume 450 and FiO2 30%. Continue PSV trials urine culture found to be negative. Continue p.o. vancomycin for C. difficile. Continue cefepime, Flagyl and fluconazole for sepsis/peritonitis. Blood cultures thus far negative. Patient s/p PRBCs for severe anemia. Hemoglobin stable at 7.4. Follow-up CBC in a.m. Patient currently on anticoagulation for right lower extremity DVT. 02/23/20. Anticoagulation for A. fib currently on hold due to anemia. Patient is s/p PRBCs. We will follow-up H&H. Continue to feed via NG tube and advance as tolerated. Continue TPN until patient tolerating tube feeding at goal. Continue wound VAC and monitor drainage. With regards her renal function, LITZY on CKD 3--with ATN, hemodialysis per nephrology. S/p IV Lasix 100mg yesterday with ~1L urine output; will administer another high dose IV lasix bolus on non- HD days to encourage ongoing volume removal and minimize HD UF needs. Continue antibiotics per ID. Leukocytosis likely secondary to UTI. CT C/A/P 02/19/20 - post operative changes of right colon. Anastamosis is intact. Generalized edema of abdominal wall. Urine and blood cultures were found to be negative. 02/24/20; on vent PSV, CPAP mode, wean as tolerated and extubate, transition TPN to full dose tube feeding HD as needed, no HD recommended today 02/25/20: Worsening leukocytosis, multifactorial secondary to UTI, C. difficile colitis On oral vancomycin, ID following, 02/26/20; patient is febrile, has gram-positive cocci bacteremia, continue current antibiotics, ID following 02/27/20: Patient has persistent fevers, continue empiric antibiotics follow cul tures 02/28/20: Blood sugars are uncontrolled as insulin was held, add Lantus 10 units subcu twice a day, afebrile this morning 02/29/20:Staph epidermidis 2 out of 2,ID recommend removal or exchange of PICC and HD access Blood sugars moderate control, increase Lantus to 25 units twice a day closely monitor The high probability of a clinically significant, sudden or life threatening deterioration of the [respiratory] system(s) required my full and direct attention, intervention and personal management. The aggregate critical care time was [35] minutes. This time is in addition to time spent performing reported procedures but includes the following: [x] Data Review and interpretation [x] Patient assessment and monitoring of vital signs [x] Documentation [x] Medication orders and management History Interval history: Patient seen and examined at the bedside Patient's chart and medications reviewed Patient is afebrile last 24 hours Blood cultures positive for staph epidermidis2:2 And remains intubated on ventilatory support Vital signs reviewed Hospitalist Physical - Constitutional Vitals: Temp Pulse Resp BP Pulse Ox 98.8 F 112 H 26 H 148/99 100 02/28/20 23:35 02/28/20 23:30 02/28/20 23:30 02/28/20 23:30 02/28/20 22:00 General appearance: Present: no acute distress, well-nourished, obese, other (Intubated, on vent) - EENT Eyes: Present: PERRL, EOM intact - Neck Neck: Present: supple, normal ROM - Respiratory Respiratory effort: normal Respiratory: bilateral: diminished, rhonchi, negative: rales, wheezing - Cardiovascular Rhythm: regular Heart Sounds: Present: S1 & S2 - Extremities Extremities: no ischemia, No edema - Abdominal General gastrointestinal: soft, non-tender, non-distended, normal bowel sounds - Integumentary Integumentary: Present: clear, warm - Psychiatric Psychiatric: other (Intubated and sedated) - Neurologic Neurologic: other (Intubated on vent) HEART Score - HEART Score Troponin: Troponin T < 0.010 ng/mL (0.00-0.029) 02/11/20 15:27 Results - Labs CBC & Chem 7: 02/28/20 09:25 02/28/20 09:25 Labs: Laboratory Last Values WBC 15.1 K/mm3 (4.5-11.0) H 02/28/20 09:25 RBC 2.37 M/mm3 (3.65-5.03) L 02/28/20 09:25 Hgb 7.3 gm/dl (10.1-14.3) L 02/28/20 09:25 Hct 22.6 % (30.3-42.9) L 02/28/20 09:25 MCV 95 fl (79-97) 02/28/20 09:25 MCH 31 pg (28-32) 02/28/20 09:25 MCHC 32 % (30-34) 02/28/20 09:25 RDW 16.6 % (13.2-15.2) H 02/28/20 09:25 Plt Count 222 K/mm3 (140-440) 02/28/20 09:25 Lymph % (Auto) 7.8 % (13.4-35.0) L 02/26/20 05:00 [place] % (Auto) 8.5 % (0.0-7.3) H 02/26/20 05:00 Eos % (Auto) 0.2 % (0.0-4.3) 02/26/20 05:00 Baso % (Auto) 0.4 % (0.0-1.8) 02/26/20 05:00 Lymph # 1.3 K/mm3 (1.2-5.4) 02/26/20 05:00 [place] # 1.4 K/mm3 (0.0-0.8) H 02/26/20 05:00 Eos # 0.0 K/mm3 (0.0-0.4) 02/26/20 05:00 Baso # 0.1 K/mm3 (0.0-0.1) 02/26/20 05:00 Add Manual Diff Complete 02/25/20 05:25 Total Counted 100 02/25/20 05:25 Seg Neutrophils % 83.1 % (40.0-70.0) H 02/26/20 05:00 Seg Neuts % (Manual) 87.0 % (40.0-70.0) H 02/25/20 05:25 Band Neutrophils % 1.0 % 02/25/20 05:25 Lymphocytes % (Manual) 6.0 % (13.4-35.0) L 02/25/20 05:25 Reactive Lymphs % (Man) 0 % 02/25/20 05:25 Monocytes % (Manual) 6.0 % (0.0-7.3) 02/25/20 05:25 Eosinophils % (Manual) 0 % (0.0-4.3) 02/25/20 05:25 Basophils % (Manual) 0 % (0.0-1.8) 02/25/20 05:25 Metamyelocytes % 0 % 02/25/20 05:25 Myelocytes % 0 % 02/25/20 05:25 Promyelocytes % 0 % 02/25/20 05:25 Blast Cells % 0 % 02/25/20 05:25 Nucleated RBC % Not Reportable 02/25/20 05:25 Seg Neutrophils # 13.5 K/mm3 (1.8-7.7) H 02/26/20 05:00 Seg Neutrophils # Man 22.0 K/mm3 (1.8-7.7) H 02/25/20 05:25 Band Neutrophils # 0.3 K/mm3 02/25/20 05:25 Lymphocytes # (Manual) 1.5 K/mm3 (1.2-5.4) 02/25/20 05:25 Abs React Lymphs (Man) 0.0 K/mm3 02/25/20 05:25 Monocytes # (Manual) 1.5 K/mm3 (0.0-0.8) H 02/25/20 05:25 Eosinophils # (Manual) 0.0 K/mm3 (0.0-0.4) 02/25/20 05:25 Basophils # (Manual) 0.0 K/mm3 (0.0-0.1) 02/25/20 05:25 Metamyelocytes # 0.0 K/mm3 02/25/20 05:25 Myelocytes # 0.0 K/mm3 02/25/20 05:25 Promyelocytes # 0.0 K/mm3 02/25/20 05:25 Blast Cells # 0.0 K/mm3 02/25/20 05:25 WBC Morphology Not Reportable 02/25/20 05:25 Hypersegmented Neuts Not Reportable 02/25/20 05:25 Hyposegmented Neuts Not Reportable 02/25/20 05:25 Hypogranular Neuts Not Reportable 02/25/20 05:25 Smudge Cells Not Reportable 02/25/20 05:25 Toxic Granulation Not Reportable 02/25/20 05:25 Toxic Vacuolation Not Reportable 02/25/20 05:25 Dohle Bodies Not Reportable 02/25/20 05:25 Pelger-Huet Anomaly Not Reportable 02/25/20 05:25 Jyoti Rods Not Reportable 02/25/20 05:25 Platelet Estimate Consistent w auto 02/25/20 05:25 Clumped Platelets Not Reportable 02/25/20 05:25 Plt Clumps, EDTA Not Reportable 02/25/20 05:25 Large Platelets Not Reportable 02/25/20 05:25 Giant Platelets Not Reportable 02/25/20 05:25 Platelet Satelliting Not Reportable 02/25/20 05:25 Plt Morphology Comment Not Reportable 02/25/20 05:25 RBC Morphology Not Reportable 02/25/20 05:25 Dimorphic RBCs Not Reportable 02/25/20 05:25 Polychromasia Few 02/25/20 05:25 Hypochromasia Not Reportable 02/25/20 05:25 Poikilocytosis Not Reportable 02/25/20 05:25 Anisocytosis 1+ 02/25/20 05:25 Microcytosis Not Reportable 02/25/20 05:25 Macrocytosis Not Reportable 02/25/20 05:25 Spherocytes Not Reportable 02/25/20 05:25 Pappenheimer Bodies Not Reportable 02/25/20 05:25 Sickle Cells Not Reportable 02/25/20 05:25 Target Cells Not Reportable 02/25/20 05:25 Tear Drop Cells Not Reportable 02/25/20 05:25 Ovalocytes Not Reportable 02/25/20 05:25 Helmet Cells Not Reportable 02/25/20 05:25 [place] Bodies Not Reportable 02/25/20 05:25 [place] Rings Not Reportable 02/25/20 05:25 Andrea Cells Not Reportable 02/25/20 05:25 Bite Cells Not Reportable 02/25/20 05:25 Crenated Cell Not Reportable 02/25/20 05:25 Elliptocytes Not Reportable 02/25/20 05:25 Acanthocytes (Spur) Not Reportable 02/25/20 05:25 Rouleaux Not Reportable 02/25/20 05:25 Hemoglobin C Crystals Not Reportable 02/25/20 05:25 Schistocytes Not Reportable 02/25/20 05:25 Malaria parasites Not Reportable 02/25/20 05:25 Babar Bodies Not Reportable 02/25/20 05:25 Hem Pathologist Commnt No 02/25/20 05:25 PT 16.9 Sec. (12.2-14.9) H 02/13/20 20:10 INR 1.41 (0.87-1.13) H 02/13/20 20:10 APTT 35.3 Sec. (24.2-36.6) 02/13/20 20:10 Heparin Anti-Xa Level 0.15 U.I./ml (0.3-0.7) L 02/23/20 02:55 ABG pH 7.318 pH Units (7.350-7.450) L 02/21/20 04:16 ABG pCO2 42.7 mm Hg 02/21/20 04:16 ABG pO2 100.0 mm Hg (80.0-90.0) H 02/21/20 04:16 ABG HCO3 21.4 mmol/L (20.0-26.0) 02/21/20 04:16 ABG O2 Saturation 97.2 % (95.0-99.0) 02/21/20 04:16 ABG O2 Content 12.3 (0.0-44) 02/21/20 04:16 ABG Base Excess -4.4 mmol/L (-2.0-3.0) L 02/21/20 04:16 ABG Hemoglobin 9.1 gm/dl (12.0-16.0) L 02/21/20 04:16 ABG Carboxyhemoglobin 1.5 % (0.0-5.0) 02/21/20 04:16 ABG Methemoglobin 0.7 % (0.0-1.5) 02/21/20 04:16 Oxyhemoglobin 95.2 % (95.0-99.0) 02/21/20 04:16 FiO2 30 % 02/21/20 04:16 Sodium 137 mmol/L (137-145) 02/28/20 09:25 Potassium 4.9 mmol/L (3.6-5.0) 02/28/20 09:25 Chloride 98.1 mmol/L (98-107) 02/28/20 09:25 Carbon Dioxide 18 mmol/L (22-30) L 02/28/20 09:25 Anion Gap 26 mmol/L 02/28/20 09:25 BUN 105 mg/dL (7-17) H 02/28/20 09:25 Creatinine 5.9 mg/dL (0.7-1.2) H 02/28/20 09:25 Estimated GFR 7 ml/min 02/28/20 09:25 BUN/Creatinine Ratio 18 % 02/28/20 09:25 Glucose 370 mg/dL (65-100) H 02/28/20 09:25 POC Glucose 353 (70-105) H 02/28/20 23:45 Ketones Quantitative Negative (Negative) 02/13/20 14:51 Lactic Acid 0.70 mmol/L (0.7-2.0) 02/14/20 Unknown Calcium 8.2 mg/dL (8.4-10.2) L 02/28/20 09:25 Phosphorus 4.90 mg/dL (2.5-4.5) H 02/24/20 05:40 Magnesium 2.20 mg/dL (1.7-2.3) 02/25/20 05:25 Total Bilirubin 0.30 mg/dL (0.1-1.2) 02/25/20 05:25 Direct Bilirubin < 0.2 mg/dL (0-0.2) 02/25/20 05:25 Indirect Bilirubin 0.1 mg/dL 02/25/20 05:25 AST 20 units/L (5-40) 02/25/20 05:25 ALT 17 units/L (7-56) 02/25/20 05:25 Alkaline Phosphatase 76 units/L (35-129) 02/25/20 05:25 Troponin T < 0.010 ng/mL (0.00-0.029) 02/11/20 15:27 Total Protein 5.0 g/dL (6.3-8.2) L 02/25/20 05:25 Albumin 2.3 g/dL (3.9-5) L 02/25/20 05:25 Albumin/Globulin Ratio 0.9 % 02/25/20 05:25 Triglycerides 238 mg/dL (2-149) H 02/17/20 03:45 Lipase 60 units/L (13-60) 02/13/20 14:51 Urine Color Yellow (Yellow) 02/19/20 14:00 Urine Turbidity Cloudy (Clear) 02/19/20 14:00 Urine pH 5.0 (5.0-7.0) 02/19/20 14:00 Ur Specific [place] 1.007 (1.003-1.030) 02/19/20 14:00 Urine Protein 100 mg/dl mg/dL (Negative) 02/19/20 14:00 Urine Glucose (UA) >=500 mg/dL (Negative) 02/19/20 14:00 Urine Ketones Tr mg/dL (Negative) 02/19/20 14:00 Urine Blood Lg (Negative) 02/19/20 14:00 Urine Nitrite Neg (Negative) 02/19/20 14:00 Urine Bilirubin Neg (Negative) 02/19/20 14:00 Urine Urobilinogen < 2.0 mg/dL (<2.0) 02/19/20 14:00 Ur Leukocyte Esterase Lg (Negative) 02/19/20 14:00 Urine WBC (Auto) 166.0 /HPF (0.0-6.0) H 02/19/20 14:00 Urine RBC (Auto) 20.0 /HPF (0.0-6.0) 02/19/20 14:00 U Epithel Cells (Auto) 2.0 /HPF (0-13.0) 02/19/20 14:00 Urine Bacteria (Auto) 1+ /HPF (Negative) 02/19/20 14:00 Urine WBC Clumps 3+ /HPF 02/19/20 14:00 Urine Mucus Few /HPF 02/19/20 14:00 Urine Yeast (Budding) 3+ /HPF 02/19/20 14:00 Urine Eosinophils None seen (None Seen) 02/12/20 Unknown Urine Creatinine 35.3 mg/dL (0.1-20.0) H 02/12/20 Unknown Protein/Creatinin Ratio 22.55 02/12/20 Unknown Urine Total Protein 796 mg/dL (5-11.8) H 02/12/20 Unknown Random Vancomycin 11.3 ug/mL (0-40.0) 02/28/20 09:25 C. difficile Tox (PCR) Positive (Negative) 02/19/20 12:46 Coronavirus (PCR) Negative (Negative) 02/25/20 08:50 Hepatitis A IgM Ab Non-reactive (NonReactive) 02/21/20 10:30 Hep Bs Antigen Non-reactive (Negative) 02/21/20 10:30 Hep B Core IgM Ab Non-reactive (NonReactive) 02/21/20 10:30 Hepatitis C Antibody Non-reactive (NonReactive) 02/21/20 10:30 Blood Type O NEGATIVE 02/21/20 06:00 Antibody Screen Negative 02/21/20 06:00 Crossmatch See Detail 02/21/20 06:00 Microbiology: Microbiology 02/27/20 19:25 Peripheral/Venous Blood Culture - Preliminary NO GROWTH AFTER 24 HOURS 02/27/20 18:50 Peripheral/Venous Blood Culture - Preliminary NO GROWTH AFTER 24 HOURS 02/24/20 14:51 Peripheral/Venous Blood Culture - Final Staphylococcus Epidermidis 02/24/20 14:51 Peripheral/Venous Blood Culture - Final Staphylococcus Epidermidis - Diagnostic Impressions Diagnostic Impressions: Echocardiogram 02/13/20 18:02 Transthoracic Echocardiogram Indication: Afib BP: 101/70 HR: 128 Findings Left Ventricle: The left ventricular chamber size is normal. Mild to moderate concentric left ventricular hypertrophy is observed. Global left ventricular wall motion and contractility are within normal limits. Global left ventricular systolic function is normal. The estimated ejection fraction is 60-65%. Left Atrium: The left atrium is mild to moderately dilated. Right Ventricle: The right ventricular cavity size is normal. The right ventricular global systolic function is normal. Right Atrium: The right atrium appears normal. The interatrial septum appears normal. Aortic Valve: The aortic valve structure is normal. The aortic valve leaflets are mildly thickened. There is no evidence of aortic regurgitation. There is no evidence of aortic stenosis. Mitral Valve: The mitral valve leaflets appear normal. There is no evidence of mitral regurgitation. There is no evidence of mitral stenosis. Tricuspid Valve: The tricuspid valve leaflets are normal. There is mild to moderate tricuspid regurgitation. The right ventricular systolic pressure is calculated at 39 mmHg. There is evidence of pulmonary hypertension. There is no tricuspid stenosis. Pulmonic Valve: The pulmonic valve appears normal. There is no evidence of pulmonic regurgitation. There is no pulmonic stenosis. Pericardium: A pericardial effusion is visualized. There is a minimial pericardial effusion. A left pleural effusion is present. There is a moderate pleural effusion. Aorta: There is no dilatation of the ascending aorta. There is no dilatation of the aortic arch. There is no dilatation of the descending thoracic aorta. There is no dilatation of the aortic root. Venous: The inferior vena cava appears normal in size. Measurements Chambers 2D Name Value Normal Range IVSd (2D) 1.34 cm (0.6 - 1.1) LVPWd (2D) 1.35 cm (0.6 - 1.1) LVIDd (2D) 4.72 cm (3.7 - 5.6) LVIDs (2D) 3.28 cm (2 - 3.8) LV FS (2D) 30.38 % - EF Teichholz (2D) 57.75 % - Ao root diameter (2D) 3.02 cm (2 - 3.7) Volumes/Mass Name Value Normal Range LA ESV SP 4CH (A/L) 55.87 ml - LA ESV SP 2CH (A/L) 67.65 ml - LA ESV BP (A/L) 63.67 ml - LA ESV SP 4CH (MOD) 54.25 ml - LA ESV SP 2CH (MOD) 63.2 ml - LA ESV BP (MOD) 60.49 ml - LA ESV BP (MOD) index 34.18 ml/m2 - LV EDV SP 4CH (MOD) 70.96 ml - LV ESV SP 4CH (MOD) 23.49 ml - EF SP 4CH (MOD) 66.89 % - LV EDV SP 2CH (MOD) 61.41 ml - LV ESV SP 2CH (MOD) 27.43 ml - EF SP 2CH (MOD) 55.33 % - LV EDV BP 69.85 ml - LV ESV BP 26.44 ml - BP EF (MOD) 62.14 % - Aortic Valve Name Value Normal Range AV Vmax 1.29 m/sec - AV VTI 18.56 cm - AV peak gradient 6.69 mmHg - AV mean gradient 3.39 mmHg - LVOT diameter 1.95 cm - LVOT Vmax 1.14 m/sec - LVOT VTI 16.24 cm - LVOT peak gradient 5.21 mmHg - LVOT mean gradient 2.04 mmHg - SV LVOT 48.71 ml - TABATHA (continuity Vmax) 2.65 cm2 - TABATHA (continuity VTI) 2.62 cm2 - Ascending Ao 2.96 cm - Tricuspid Valve Name Value Normal Range TR Vmax 2.47 m/sec - TR peak gradient 24 mmHg - RAP 15 mmHg - RVSP 39 mmHg - Pulmonic Valve/Qp:Qs Name Value Normal Range PV Vmax 1.15 m/sec - PV peak gradient 5.33 mmHg - PV acceleration time 68.51 msec - Acevedo/IV: Voiding Method Indwelling Catheter IV Catheter Type [Right VAS Cath Internal Jugular] IV Catheter Type [Left Upper PICC Line arm] IV Catheter Type [Right INT / Saline Lock Antecubital] IV Catheter Type [Right Peripheral IV Forearm] IV Catheter Type [Left Forearm INT / Saline Lock ] IV Catheter Type [Right Hand] Peripheral IV Active Medications - Current Medications Current Medications: Generic Name Dose Route Start Last Admin Trade Name Freq PRN Reason Stop Dose Admin Acetaminophen 650 mg 02/11/20 19:01 02/27/20 12:00 Tylenol PO 650 mg Q4H PRN Administration Pain MILD(1-3)/Fever >100.5/ADAMS Amiodarone HCl 200 mg 02/24/20 10:00 02/28/20 09:31 Cordarone PO 200 mg QDAY NADER Administration Lipase/Protease/Amylase 1 each 02/20/20 10:[address] 10,500 Unit FEEDTUBE PRN PRN For Clogged Feeding Tube Apixaban 10 mg 02/26/20 12:00 02/28/20 21:41 Eliquis PO 03/03/20 22:01 10 mg Q12HR NADER Administration Protocol Apixaban 5 mg 03/04/20 10:00 Eliquis PO Q12HR NADER Protocol Dextrose 50 ml 02/19/20 14:58 D50w (25gm) Syringe IV Q30MIN PRN Hypoglycemia Protocol Famotidine 20 mg 02/24/20 10:00 02/28/20 09:29 Pepcid PO 20 mg DAILY NADER Administration Fentanyl 50 mcg 02/19/20 15:30 02/28/20 21:39 Sublimaze IV 50 mcg Q10MIN PRN Administration ANALGESIA Fentanyl 50 mcg 02/24/20 09:52 02/28/20 14:22 Sublimaze IV 50 mcg Q2HR PRN Administration Pain, Moderate (4-6) Hydrophilic Ointment 1 applic 02/13/20 19:41 Vaseline Lip Therapy TP Q2HR PRN Dry Lips Sodium Chloride 100 mls @ 999 mls/hr 02/22/20 12:30 Nacl 0.9% IV FABIOLA PRN Hypotension Insulin Glargine 10 units 02/28/20 10:00 02/28/20 21:42 Lantus SUB-Q 10 units BID NADER Administration Insulin Human Lispro 0 unit 02/19/20 18:00 02/28/20 18:08 Humalog SUB-Q 10 unit Q6HR NADER Administration Protocol Labetalol HCl 20 mg 02/13/20 18:00 02/27/20 23:59 Labetalol IV 20 mg Q4H PRN Administration SBP >150 Metoprolol Tartrate 2.5 mg 02/13/20 18:00 02/27/20 02:34 Metoprolol IV 2.5 mg Q6HR PRN Administration HR >130 Metoprolol Tartrate 50 mg 02/26/20 11:00 02/28/20 18:08 Metoprolol PO 50 mg Q8H NADER Administration Multi-Ingred Cream/Lotion/Oil/Oint 1 applic 02/13/20 19:41 Artificial Tears Ophth Oint OU Q4HR PRN Dry Eye(s) Sertraline HCl 50 mg 02/23/20 10:00 02/28/20 09:31 Zoloft PO 50 mg QDAY NADER Administration Simple Syrup 15 ml 02/20/20 10:28 Simple Syrup FEEDTUBE PRN PRN Hypoglycemia Simple Syrup 30 ml 02/20/20 10:28 Simple Syrup FEEDTUBE PRN PRN Hypoglycemia Sodium Bicarbonate 325 mg 02/20/20 10:28 Sodium Bicarbonate FEEDTUBE PRN PRN For Clogged Feeding Tube Sodium Chloride 10 ml 02/11/20 22:00 02/28/20 09:31 Sodium Chloride Flush Syringe 10 Ml IV 10 ml BID NADER Administration Sodium Chloride 10 ml 02/11/20 19:01 02/15/20 22:43 Sodium Chloride Flush Syringe 10 Ml IV 10 ml PRN PRN Administration LINE FLUSH Nutrition/Malnutrition Assess - Dietary Evaluation Nutrition/Malnutrition Findings: Nutrition Notes Start: 02/14/20 09:49 Freq: Status: Active Protocol: Document 02/27/20 11:30 LM (Rec: 02/27/20 11:33 LM [email or web address]) Nutrition Notes Initial or Follow up Reassessment Current Diagnosis Acute Kidney Injury,Decubitus( Pressure Ulcer),Diabetes, Hypertension,Hyperlipidemia Other Pertinent Diagnosis ischemic bowel with gangrene s /p exp lap, Current Diet Vital 1.2 at 50ml/hr Labs/Tests Reviewed Pertinent Medications Reviewed Height 5 ft 5 in Weight 96.2 kg [place] Body Weight (kg) 56.81 BMI 35.2 Weight change and time frame Wt change noted Weight Status Obese Subjective/Other Information Vital running at goal rate. Percent of energy/protein needs met: 100%/100% Burn Absent Trauma Absent Current % PO Negligible Minimum of two criteria No #2 Nutrition Diagnosis Inadequate oral intake Diagnosis Progress(for reassessment Continues documentation) Is patient on ventilator? Yes Is Patient Ambulatory and/or Out of Bed No REE-([facility]-confined to bed) 1755.492 Kcal/Kg value to use for calculation 15 Approximate Energy Requirements Using 1443 kcal/Kg Calculation Used for Recommendations Kcal/kg Additional Notes Pro needs 1.2-2g/k-140g/ day Fluid needs 1ml/kcal Nutrition Intervention Change Diet Order: Continue TF Nutrition Support: Vital 1.2 at 50ml/hr (goal rate) Flush with 100ml q4h Kcal 1,440 Protein (gm) 90 Fluid (mL) 966 Goal #1 Meet at least 75% of energy and protein needs Anticipated Discharge Needs: Unable to identify at this time Follow-Up By: 03/02/20 Additional Comments F/U for TF tolerance
[2020-02-29] MEDS: INSULIN LISPRO 100 UNIT/ML SUB-Q SCH ×5 (00:41→23:54)
[2020-02-29] MEDS: METOPROLOL TARTRATE 5 MG/5 ML INJ IV PRN (03:42)
[2020-02-29] MEDS: METOPROLOL TARTRATE 50 MG TAB PO SCH ×3 (03:48→19:12)
[2020-02-29] MEDS: APIXABAN 5 MG TAB PO SCH ×2 (09:47→21:35)
[2020-02-29] MEDS: FAMOTIDINE 20 MG TAB PO SCH (09:47)
[2020-02-29] MEDS: SERTRALINE 50 MG TAB PO SCH (09:48)
[2020-02-29] MEDS: AMIODARONE 200 MG TAB PO SCH (09:48)
[2020-02-29] MEDS: fentaNYL 100 MCG/2 ML INJ IV PRN ×3 (10:02→23:52)
--- NOTE | 2020-02-29 11:10 | Progress Note ---
Assessment and Plan 74 y/o female with abdominal pain, hypotension, now hypertensive with tachycardia and pain, worrisome for SBO and inflammation in colon from diverticula with worsening renal function. 02/29/2020: So far no fever yesterday and none today. Will need 3 consecutive days so tomorrow would be day 3. Will repeat CoVID testing in the am. Continue current level of sedation as patient's mental status has greatly improved in the last 48 hours. Family to visit today. VasCath out on yesterday. Still with picc but now afebrile. If no further fevers today and tomorrow, will likely be ready for discharge either later tomorrow or first thing Sunday pending the facility, but will defer to CM. 02/28/2020: Will remove Vas Cath today, spoke with nursing about this this am. Repeat cultures are pending. Patient very edematous so finding peripheral IV's will be difficult. Will ask picc team to look for peripheral vs a midline placement and consider getting PICC line out now that off of TPN. Continue anticoagulation with oral therapies. Continue tylenol therapy. Will call Granddaughter today to figure out a time for coming in tomorrow. Reviewed CM note, will need 3 days of afebrile documentation and repeat COVID testing which I will do Sunday Morning. 02/27/2020: Febrile again last night and this am. Bacteria growing in blood was Coag negative staph so a presumed contaminant. May need to repeat blood cultures again once 24 hours out. Did not remove picc on yesterday but may need to if fevers persists. HR still tachy but this could be related to fever. Cards did increase dilt on yesterday, may need to increase more. If fever curve breaks later today, will try PSV again. Follow up renal recs and see if they have anything to offer in regards to blood pressure control. Other possibility is that she is febrile from clot. She had superficial clot in leg. Anticoagulation was stopped for several days secondary to anemia, and was just restarted yesterday. Will continue to monitor. Family wants to see patient again prior to discharge from here. Will arrange a time on Sunday for Daughter and Granddaughter to come. 02/26/2020: Patient is now bacteremic. She has several sources for the nidus. Will discuss with surgery, now that patient is off TPN and tolerating feeds, may try to remove PICC. I have asked nursing to find some peripherals prior to doing this. The other option would be to place a midline. ID has adjusted abx. Mental status is much better today. Purposeful eye movements, head turns and feet moving. Agree with cardiology in regards to increasing Dilt to 60. After the discussion with the granddaughter, will add some PRN benzo therapy to see if anxiety is playing a part. Continue PSV trials as tolerated. Goals would still be to extubate if possible without requiring trach. Per CM, family has agreed to an LTACH in [facility] to try to arrange admission as soon as possible. HD per renal, patient is still making urine and she does have a vascath which could be a source for infection as well. 02/25/2020: Long discussion with Granddaughter and Daughter over the phone to discuss LTACH. Currently they are not in favor.of LTACH. I tried my best to ex plain to them that this would be the next step in recovery for their family member. They are going to discuss amongst themselves and then let us know. I answered the questions they had to the best of my abilities. I also explained to them the current mental state, my thoughts and how we are trying to improve her mental state. They seem to understand this. We will continue daily PSV trials as tolerated. HD per renal. Overall prognosis is guarded. 02/24/2020: Continue PSV as tolerated. I have asked nursing to leave sedation off for as long as possible. I have also added PRN pushes of fentanyl with hopes of not having to restart the continuous infusion. I do not believe she will be ready for extubation today, but would like to work her respiratory muscles. Mental status is not exactly where we wont it to be. Heparin remains off and will discontinue from the MAR at this time. HD yesterday so likely none today. Will touch base with surgery and discuss with them but given the degree of illness and likely underlying lung disease as patient as still smoking, may need to consider LTACH if not able to wean in a timely fashion. Overall prognosis remains guarded. 02/23/2020: HD today. Will hold on weaning sedation given HD happening and likely will be to weak for PSV. Remains on minimal vent support. Transfusion today, of 2 units of PRBC's. Heparin on hold will need to recheck levels today. Spoke with pharm who will help with insulin therapy to better level of sugars. Abx therapy per ID. Flagyl and Cefepime stopped yesterday. Guarded prognosis. Will continue to follow. 02/20/2020: Positive VTE but already on anticoagulation for Afib. HgB is 7. Not hypotensive. Does respond to lasix. Will discuss with renal but my personal preference would be to hold until less than 7 for transfusion. ID on board and placed on antifungal yesterday. Improvement in white count. Spoke with RT who will attempt PSV again today. If patient fails again today, will speak with renal about more volume removal. May need HD briefly. Surgery also starting trickle feeds today. Spoke with Pharm about increasing lantus given hyperglycemia. C. Diff PCR came back positive today. 02/19/2020: More awake today but failed PSV secondary to tachypnea. Makes sense given degree of acidosis. Await renal to eval today. Wonder if more lasix will be given or if she will need HD. Only on 30% with good sats, but compensating for metabolic acidosis which is why she failed PSV. Spoke with Granddaughter over the phone, renal please call as she would like an update on renal function and plans. Continue pain control with PRN therapy but no further continuous sedation. 02/18/2020: More awake but failing PSV trials. Spoke with renal and they did not request corcoran out either. Will replace and give lasix 80mg IV. Spoke with Granddaughter over the phone who is a nurse. Will attempt PSV later this afternoon. If passes, will likely extubate in the am. If not , will give an additional dose of lasix tonight. 02/17/2020: Start to wean sedation today with hopes of extubation. Pain control. IVF's per renal. Follow up any surgery recs. ID seen this am, reviewed their note and plan to treat for 7 days of abx, currently on day 2. 02/16/2020: Picc line placed yesterday. Going to OR today, plan around 1330. If able to close, could consider starting to wean as early as tomorrow but will touch base with surgery first. Patient HR in the 50's on drip so cards d ecreased. Discussed on rounds, but I asked nursing if any further issues to just stop the drip. Prognosis remains guarded. Trigylcerides not checked so will order stat. 02/15/2020: No new recs for today. Happy with current clinical state in regards to sedation, ventilation and oxygenation. Appreciate surgery and nephro help. follow up any new recs from them. Agree with picc line, will get tomorrow as I believe they (picc team) are not available on Sunday. Will check triglyceride level in the am. Guarded prognosis. CCT 31 minutes. Subjective Date of service: 02/29/20 Principal diagnosis: Ischemic Bowel Interval history: Awake and alert. Continues to nod head appropriately. Not on PSV right now. Family coming to see patient today at 1330 Objective Vital Signs - 12hr 02/28/20 02/28/20 02/28/20 23:30 23:35 23:44 Temperature 98.8 F Pulse Rate 112 H 123 H Pulse Rate [ From Monitor] Respiratory 26 H 15 Rate Blood Pressure 148/99 150/84 O2 Sat by Pulse Oximetry 02/29/20 02/29/20 02/29/20 00:00 00:30 00:40 Temperature Pulse Rate 93 H 125 H 105 H Pulse Rate [ 109 H From Monitor] Respiratory 17 20 Rate Blood Pressure 112/61 155/95 155/100 O2 Sat by Pulse 100 Oximetry 02/29/20 02/29/20 02/29/20 01:00 01:30 02:00 Temperature Pulse Rate 92 H 93 H 92 H Pulse Rate [ From Monitor] Respiratory 21 22 18 Rate Blood Pressure 163/88 139/65 143/70 O2 Sat by Pulse Oximetry 02/29/20 02/29/20 02/29/20 02:30 03:00 03:04 Temperature 99.8 F H Pulse Rate 114 H 115 H Pulse Rate [ From Monitor] Respiratory 27 H 26 H Rate Blood Pressure 166/93 163/103 O2 Sat by Pulse Oximetry 02/29/20 02/29/20 02/29/20 03:30 03:48 04:00 Temperature Pulse Rate 123 H 123 H 107 H Pulse Rate [ 92 H From Monitor] Respiratory 25 H 25 H Rate Blood Pressure 168/102 150/93 150/93 O2 Sat by Pulse 100 Oximetry 02/29/20 02/29/20 02/29/20 04:30 04:31 05:00 Temperature Pulse Rate 93 H 88 75 Pulse Rate [ From Monitor] Respiratory 21 21 Rate Blood Pressure 112/61 99/63 O2 Sat by Pulse 100 Oximetry 02/29/20 02/29/20 02/29/20 05:30 06:00 06:30 Temperature Pulse Rate 92 H 105 H 122 H Pulse Rate [ From Monitor] Respiratory 21 24 19 Rate Blood Pressure 109/70 103/82 101/81 O2 Sat by Pulse Oximetry 02/29/20 02/29/20 02/29/20 07:00 07:30 08:00 Temperature 98.5 F Pulse Rate 105 H 107 H 106 H Pulse Rate [ From Monitor] Respiratory 26 H 33 H 29 H Rate Blood Pressure 128/76 139/76 140/69 O2 Sat by Pulse Oximetry 02/29/20 02/29/20 09:20 10:02 Temperature Pulse Rate 101 H Pulse Rate [ From Monitor] Respiratory 24 Rate Blood Pressure 133/57 O2 Sat by Pulse 100 Oximetry Constitutional: no acute distress, other (on vent intubated and sedated) Eyes: non-icteric ENT: other (orally intubated ) Effort: normal Ascultation: Bilateral: clear Percussion: Bilateral: not dull Cardiovascular: irregular rhythm (but rate controlled) Gastrointestinal: other (post surgical changes) Integumentary: normal Extremities: edema Neurologic: unable to assess (on vent) CBC and BMP: 02/28/20 09:25 02/28/20 09:25 ABG, PT/INR, D-dimer: ABG ABG pH 7.318 pH Units (7.350-7.450) L 02/21/20 04:16 ABG pCO2 42.7 mm Hg 02/21/20 04:16 ABG pO2 100.0 mm Hg (80.0-90.0) H 02/21/20 04:16 ABG O2 Saturation 97.2 % (95.0-99.0) 02/21/20 04:16 PT/INR, D-dimer PT 16.9 Sec. (12.2-14.9) H 02/13/20 20:10 INR 1.41 (0.87-1.13) H 02/13/20 20:10 Abnormal lab findings: Abnormal Labs 02/11/20 02/11/20 02/11/20 15:27 15:27 15:27 WBC 22.5 H RBC Hgb Hct MCHC RDW Plt Count Lymph % (Auto) [place] % (Auto) [place] # Seg Neutrophils % Seg Neuts % (Manual) 90.0 H Lymphocytes % (Manual) 4.0 L Monocytes % (Manual) Nucleated RBC % Seg Neutrophils # Seg Neutrophils # Man 20.3 H Lymphocytes # (Manual) 0.9 L Monocytes # (Manual) 1.1 H Eosinophils # (Manual) PT INR APTT 23.3 L Heparin Anti-Xa Level ABG pH ABG pO2 ABG HCO3 ABG O2 Saturation ABG Base Excess ABG Hemoglobin Oxyhemoglobin Sodium 132 L Potassium Chloride 96.0 L Carbon Dioxide 16 L BUN 59 H Creatinine 3.0 H Glucose 487 H POC Glucose Calcium Phosphorus Magnesium Alkaline Phosphatase 142 H Total Protein Albumin Triglycerides Lipase 86 H Urine WBC (Auto) Urine Creatinine Urine Total Protein Crossmatch 02/12/20 02/12/20 02/12/20 04:58 04:58 Unknown WBC 30.0 H RBC Hgb Hct MCHC RDW Plt Count Lymph % (Auto) [place] % (Auto) [place] # Seg Neutrophils % Seg Neuts % (Manual) 96.0 H Lymphocytes % (Manual) 1.0 L Monocytes % (Manual) Nucleated RBC % Seg Neutrophils # Seg Neutrophils # Man 28.8 H Lymphocytes # (Manual) 0.3 L Monocytes # (Manual) 0.9 H Eosinophils # (Manual) PT INR APTT Heparin Anti-Xa Level ABG pH ABG pO2 ABG HCO3 ABG O2 Saturation ABG Base Excess ABG Hemoglobin Oxyhemoglobin Sodium Potassium Chloride Carbon Dioxide 15 L BUN 59 H Creatinine 3.0 H Glucose 477 H POC Glucose Calcium Phosphorus Magnesium Alkaline Phosphatase Total Protein Albumin 3.5 L Triglycerides Lipase Urine WBC (Auto) Urine Creatinine 35.3 H Urine Total Protein 796 H Crossmatch 02/13/20 02/13/20 02/13/20 05:43 05:43 13:24 WBC 38.2 H RBC Hgb Hct 43.6 H MCHC RDW Plt Count Lymph % (Auto) [place] % (Auto) [place] # Seg Neutrophils % Seg Neuts % (Manual) 91.0 H Lymphocytes % (Manual) 4.0 L Monocytes % (Manual) Nucleated RBC % Seg Neutrophils # Seg Neutrophils # Man 34.8 H Lymphocytes # (Manual) Monocytes # (Manual) 1.1 H Eosinophils # (Manual) PT INR APTT Heparin Anti-Xa Level ABG pH ABG pO2 ABG HCO3 ABG O2 Saturation ABG Base Excess ABG Hemoglobin Oxyhemoglobin Sodium 136 L Potassium Chloride Carbon Dioxide 11 L BUN 71 H Creatinine 4.0 H Glucose 343 H POC Glucose 337 H Calcium Phosphorus Magnesium Alkaline Phosphatase Total Protein Albumin Triglycerides Lipase Urine WBC (Auto) Urine Creatinine Urine Total Protein Crossmatch 02/13/20 02/13/20 02/13/20 16:49 16:50 17:30 WBC RBC Hgb Hct MCHC RDW Plt Count Lymph % (Auto) [place] % (Auto) [place] # Seg Neutrophils % Seg Neuts % (Manual) Lymphocytes % (Manual) Monocytes % (Manual) Nucleated RBC % Seg Neutrophils # Seg Neutrophils # Man Lymphocytes # (Manual) Monocytes # (Manual) Eosinophils # (Manual) PT INR APTT Heparin Anti-Xa Level ABG pH 7.226 L ABG pO2 77.9 L ABG HCO3 16.4 L ABG O2 Saturation ABG Base Excess -10.5 L ABG Hemoglobin 11.7 L Oxyhemoglobin 92.8 L Sodium Potassium Chloride Carbon Dioxide BUN Creatinine Glucose POC Glucose 272 H Calcium Phosphorus Magnesium Alkaline Phosphatase Total Protein Albumin Triglycerides Lipase Urine WBC (Auto) Urine Creatinine Urine Total Protein Crossmatch See Detail 02/13/20 02/13/20 02/13/20 20:10 20:42 22:08 WBC RBC Hgb Hct MCHC RDW Plt Count Lymph % (Auto) [place] % (Auto) [place] # Seg Neutrophils % Seg Neuts % (Manual) Lymphocytes % (Manual) Monocytes % (Manual) Nucleated RBC % Seg Neutrophils # Seg Neutrophils # Man Lymphocytes # (Manual) Monocytes # (Manual) Eosinophils # (Manual) PT 16.9 H INR 1.41 H APTT Heparin Anti-Xa Level ABG pH 7.158 L* ABG pO2 ABG HCO3 18.6 L ABG O2 Saturation ABG Base Excess -10.2 L ABG Hemoglobin 11.9 L Oxyhemoglobin 93.1 L Sodium Potassium Chloride Carbon Dioxide BUN Creatinine Glucose POC Glucose 171 H Calcium Phosphorus Magnesium Alkaline Phosphatase Total Protein Albumin Triglycerides Lipase Urine WBC (Auto) Urine Creatinine Urine Total Protein Crossmatch 02/14/20 02/14/20 02/14/20 00:22 03:45 04:29 WBC RBC Hgb Hct MCHC RDW Plt Count Lymph % (Auto) [place] % (Auto) [place] # Seg Neutrophils % Seg Neuts % (Manual) Lymphocytes % (Manual) Monocytes % (Manual) Nucleated RBC % Seg Neutrophils # Seg Neutrophils # Man Lymphocytes # (Manual) Monocytes # (Manual) Eosinophils # (Manual) PT INR APTT Heparin Anti-Xa Level ABG pH 7.193 L* ABG pO2 ABG HCO3 16.4 L ABG O2 Saturation ABG Base Excess -11.2 L ABG Hemoglobin 10.2 L Oxyhemoglobin 94.3 L Sodium Potassium Chloride 108.5 H Carbon Dioxide 16 L BUN 73 H Creatinine 4.3 H Glucose 167 H POC Glucose 199 H Calcium 8.0 L Phosphorus Magnesium Alkaline Phosphatase Total Protein Albumin Triglycerides Lipase Urine WBC (Auto) Urine Creatinine Urine Total Protein Crossmatch 02/14/20 02/14/20 02/14/20 04:29 05:26 12:11 WBC 14.4 H RBC Hgb Hct MCHC RDW 15.3 H Plt Count Lymph % (Auto) [place] % (Auto) [place] # Seg Neutrophils % Seg Neuts % (Manual) 88.0 H Lymphocytes % (Manual) 6.0 L Monocytes % (Manual) Nucleated RBC % Seg Neutrophils # Seg Neutrophils # Man 12.7 H Lymphocytes # (Manual) 0.9 L Monocytes # (Manual) Eosinophils # (Manual) PT INR APTT Heparin Anti-Xa Level ABG pH ABG pO2 ABG HCO3 ABG O2 Saturation ABG Base Excess ABG Hemoglobin Oxyhemoglobin Sodium Potassium Chloride Carbon Dioxide BUN Creatinine Glucose POC Glucose 177 H 160 H Calcium Phosphorus Magnesium Alkaline Phosphatase Total Protein Albumin Triglycerides Lipase Urine WBC (Auto) Urine Creatinine Urine Total Protein Crossmatch 02/14/20 02/14/20 02/15/20 18:34 23:18 03:19 WBC RBC Hgb Hct MCHC RDW Plt Count Lymph % (Auto) [place] % (Auto) [place] # Seg Neutrophils % Seg Neuts % (Manual) Lymphocytes % (Manual) Monocytes % (Manual) Nucleated RBC % Seg Neutrophils # Seg Neutrophils # Man Lymphocytes # (Manual) Monocytes # (Manual) Eosinophils # (Manual) PT INR APTT Heparin Anti-Xa Level ABG pH 7.246 L ABG pO2 ABG HCO3 13.7 L ABG O2 Saturation ABG Base Excess -12.5 L ABG Hemoglobin 8.4 L Oxyhemoglobin 94.6 L Sodium Potassium Chloride Carbon Dioxide BUN Creatinine Glucose POC Glucose 135 H 138 H Calcium Phosphorus Magnesium Alkaline Phosphatase Total Protein Albumin Triglycerides Lipase Urine WBC (Auto) Urine Creatinine Urine Total Protein Crossmatch 02/15/20 02/15/20 02/15/20 04:28 04:28 05:35 WBC RBC 2.88 L Hgb 8.6 L Hct 25.4 L D MCHC RDW 15.6 H Plt Count Lymph % (Auto) [place] % (Auto) [place] # Seg Neutrophils % Seg Neuts % (Manual) Lymphocytes % (Manual) Monocytes % (Manual) Nucleated RBC % Seg Neutrophils # Seg Neutrophils # Man Lymphocytes # (Manual) Monocytes # (Manual) Eosinophils # (Manual) PT INR APTT Heparin Anti-Xa Level ABG pH ABG pO2 ABG HCO3 ABG O2 Saturation ABG Base Excess ABG Hemoglobin Oxyhemoglobin Sodium Potassium Chloride Carbon Dioxide 12 L BUN 72 H Creatinine 4.7 H Glucose 147 H POC Glucose 181 H Calcium 7.9 L Phosphorus Magnesium Alkaline Phosphatase Total Protein Albumin Triglycerides Lipase Urine WBC (Auto) Urine Creatinine Urine Total Protein Crossmatch 02/15/20 02/15/20 02/15/20 12:07 17:50 23:18 WBC RBC Hgb Hct MCHC RDW Plt Count Lymph % (Auto) [place] % (Auto) [place] # Seg Neutrophils % Seg Neuts % (Manual) Lymphocytes % (Manual) Monocytes % (Manual) Nucleated RBC % Seg Neutrophils # Seg Neutrophils # Man Lymphocytes # (Manual) Monocytes # (Manual) Eosinophils # (Manual) PT INR APTT Heparin Anti-Xa Level ABG pH ABG pO2 ABG HCO3 ABG O2 Saturation ABG Base Excess ABG Hemoglobin Oxyhemoglobin Sodium Potassium Chloride Carbon Dioxide BUN Creatinine Glucose POC Glucose 136 H 177 H 284 H Calcium Phosphorus Magnesium Alkaline Phosphatase Total Protein Albumin Triglycerides Lipase Urine WBC (Auto) Urine Creatinine Urine Total Protein Crossmatch 02/16/20 02/16/20 02/16/20 04:20 05:24 05:29 WBC RBC Hgb Hct MCHC RDW Plt Count Lymph % (Auto) [place] % (Auto) [place] # Seg Neutrophils % Seg Neuts % (Manual) Lymphocytes % (Manual) Monocytes % (Manual) Nucleated RBC % Seg Neutrophils # Seg Neutrophils # Man Lymphocytes # (Manual) Monocytes # (Manual) Eosinophils # (Manual) PT INR APTT Heparin Anti-Xa Level ABG pH ABG pO2 77.4 L ABG HCO3 ABG O2 Saturation ABG Base Excess -4.7 L ABG Hemoglobin 5.0 L Oxyhemoglobin Sodium 135 L Potassium 3.0 L D Chloride 90.7 L Carbon Dioxide BUN 64 H Creatinine 4.7 H Glucose 491 H POC Glucose 282 H Calcium 7.2 L Phosphorus Magnesium Alkaline Phosphatase Total Protein Albumin Triglycerides Lipase Urine WBC (Auto) Urine Creatinine Urine Total Protein Crossmatch 02/16/20 02/16/20 02/16/20 05:29 05:29 08:39 WBC RBC 2.31 L Hgb 7.2 L Hct 20.2 L MCHC 36 H RDW 15.3 H Plt Count 115 L Lymph % (Auto) [place] % (Auto) [place] # Seg Neutrophils % Seg Neuts % (Manual) Lymphocytes % (Manual) Monocytes % (Manual) Nucleated RBC % Seg Neutrophils # Seg Neutrophils # Man Lymphocytes # (Manual) Monocytes # (Manual) Eosinophils # (Manual) PT INR APTT Heparin Anti-Xa Level ABG pH ABG pO2 ABG HCO3 ABG O2 Saturation ABG Base Excess ABG Hemoglobin Oxyhemoglobin Sodium Potassium Chloride Carbon Dioxide BUN Creatinine Glucose POC Glucose Calcium Phosphorus Magnesium Alkaline Phosphatase Total Protein Albumin Triglycerides 716 H Lipase Urine WBC (Auto) Urine Creatinine Urine Total Protein Crossmatch See Detail 02/16/20 02/16/20 02/17/20 12:27 19:04 00:02 WBC RBC Hgb Hct MCHC RDW Plt Count Lymph % (Auto) [place] % (Auto) [place] # Seg Neutrophils % Seg Neuts % (Manual) Lymphocytes % (Manual) Monocytes % (Manual) Nucleated RBC % Seg Neutrophils # Seg Neutrophils # Man Lymphocytes # (Manual) Monocytes # (Manual) Eosinophils # (Manual) PT INR APTT Heparin Anti-Xa Level ABG pH ABG pO2 ABG HCO3 ABG O2 Saturation ABG Base Excess ABG Hemoglobin Oxyhemoglobin Sodium Potassium Chloride Carbon Dioxide BUN Creatinine Glucose POC Glucose 314 H 203 H 202 H Calcium Phosphorus Magnesium Alkaline Phosphatase Total Protein Albumin Triglycerides Lipase Urine WBC (Auto) Urine Creatinine Urine Total Protein Crossmatch 02/17/20 02/17/20 02/17/20 03:45 03:45 03:45 WBC RBC Hgb 9.9 L Hct 30.1 L D MCHC RDW Plt Count Lymph % (Auto) [place] % (Auto) [place] # Seg Neutrophils % Seg Neuts % (Manual) Lymphocytes % (Manual) Monocytes % (Manual) Nucleated RBC % Seg Neutrophils # Seg Neutrophils # Man Lymphocytes # (Manual) Monocytes # (Manual) Eosinophils # (Manual) PT INR APTT Heparin Anti-Xa Level ABG pH ABG pO2 ABG HCO3 ABG O2 Saturation ABG Base Excess ABG Hemoglobin Oxyhemoglobin Sodium Potassium Chloride Carbon Dioxide 21 L BUN 63 H Creatinine 5.2 H Glucose 134 H POC Glucose Calcium 7.6 L Phosphorus Magnesium Alkaline Phosphatase Total Protein Albumin Triglycerides 238 H Lipase Urine WBC (Auto) Urine Creatinine Urine Total Protein Crossmatch 02/17/20 02/17/20 02/17/20 04:06 05:21 12:08 WBC RBC Hgb Hct MCHC RDW Plt Count Lymph % (Auto) [place] % (Auto) [place] # Seg Neutrophils % Seg Neuts % (Manual) Lymphocytes % (Manual) Monocytes % (Manual) Nucleated RBC % Seg Neutrophils # Seg Neutrophils # Man Lymphocytes # (Manual) Monocytes # (Manual) Eosinophils # (Manual) PT INR APTT Heparin Anti-Xa Level ABG pH 7.288 L ABG pO2 ABG HCO3 ABG O2 Saturation ABG Base Excess -4.9 L ABG Hemoglobin 9.7 L Oxyhemoglobin 94.0 L Sodium Potassium Chloride Carbon Dioxide BUN Creatinine Glucose POC Glucose 132 H 141 H Calcium Phosphorus Magnesium Alkaline Phosphatase Total Protein Albumin Triglycerides Lipase Urine WBC (Auto) Urine Creatinine Urine Total Protein Crossmatch 02/17/20 02/17/20 02/17/20 18:07 19:54 23:13 WBC RBC Hgb Hct MCHC RDW Plt Count Lymph % (Auto) [place] % (Auto) [place] # Seg Neutrophils % Seg Neuts % (Manual) Lymphocytes % (Manual) Monocytes % (Manual) Nucleated RBC % Seg Neutrophils # Seg Neutrophils # Man Lymphocytes # (Manual) Monocytes # (Manual) Eosinophils # (Manual) PT INR APTT Heparin Anti-Xa Level < 0.10 L ABG pH ABG pO2 ABG HCO3 ABG O2 Saturation ABG Base Excess ABG Hemoglobin Oxyhemoglobin Sodium Potassium Chloride Carbon Dioxide BUN Creatinine Glucose POC Glucose 189 H 167 H Calcium Phosphorus Magnesium Alkaline Phosphatase Total Protein Albumin Triglycerides Lipase Urine WBC (Auto) Urine Creatinine Urine Total Protein Crossmatch 02/18/20 02/18/20 02/18/20 03:41 04:37 05:44 WBC RBC Hgb Hct MCHC RDW Plt Count Lymph % (Auto) [place] % (Auto) [place] # Seg Neutrophils % Seg Neuts % (Manual) Lymphocytes % (Manual) Monocytes % (Manual) Nucleated RBC % Seg Neutrophils # Seg Neutrophils # Man Lymphocytes # (Manual) Monocytes # (Manual) Eosinophils # (Manual) PT INR APTT Heparin Anti-Xa Level ABG pH 7.281 L ABG pO2 74.5 L ABG HCO3 16.2 L ABG O2 Saturation 94.3 L ABG Base Excess -9.7 L ABG Hemoglobin 9.8 L Oxyhemoglobin 92.1 L Sodium Potassium Chloride Carbon Dioxide 15 L BUN 65 H Creatinine 5.1 H Glucose 117 H POC Glucose 112 H Calcium 7.7 L Phosphorus Magnesium Alkaline Phosphatase Total Protein Albumin Triglycerides Lipase Urine WBC (Auto) Urine Creatinine Urine Total Protein Crossmatch 02/18/20 02/18/20 02/18/20 09:00 09:00 12:41 WBC 14.9 H RBC 2.99 L Hgb 8.8 L Hct 27.1 L MCHC RDW 15.8 H Plt Count 131 L Lymph % (Auto) [place] % (Auto) [place] # Seg Neutrophils % Seg Neuts % (Manual) Lymphocytes % (Manual) Monocytes % (Manual) Nucleated RBC % Seg Neutrophils # Seg Neutrophils # Man Lymphocytes # (Manual) Monocytes # (Manual) Eosinophils # (Manual) PT INR APTT Heparin Anti-Xa Level ABG pH ABG pO2 ABG HCO3 ABG O2 Saturation ABG Base Excess ABG Hemoglobin Oxyhemoglobin Sodium Potassium Chloride Carbon Dioxide BUN Creatinine Glucose POC Glucose 140 H Calcium Phosphorus 6.40 H Magnesium 1.30 L Alkaline Phosphatase Total Protein Albumin Triglycerides Lipase Urine WBC (Auto) Urine Creatinine Urine Total Protein Crossmatch 02/18/20 02/18/20 02/19/20 17:58 23:06 03:50 WBC RBC Hgb Hct MCHC RDW Plt Count Lymph % (Auto) [place] % (Auto) [place] # Seg Neutrophils % Seg Neuts % (Manual) Lymphocytes % (Manual) Monocytes % (Manual) Nucleated RBC % Seg Neutrophils # Seg Neutrophils # Man Lymphocytes # (Manual) Monocytes # (Manual) Eosinophils # (Manual) PT INR APTT Heparin Anti-Xa Level ABG pH 7.243 L ABG pO2 75.3 L ABG HCO3 11.8 L ABG O2 Saturation 94.0 L ABG Base Excess -14.1 L ABG Hemoglobin 9.6 L Oxyhemoglobin 91.8 L Sodium Potassium Chloride Carbon Dioxide BUN Creatinine Glucose POC Glucose 141 H 212 H Calcium Phosphorus Magnesium Alkaline Phosphatase Total Protein Albumin Triglycerides Lipase Urine WBC (Auto) Urine Creatinine Urine Total Protein Crossmatch 02/19/20 02/19/20 02/19/20 04:30 04:30 04:30 WBC 19.8 H RBC 3.19 L Hgb 9.1 L Hct 28.9 L MCHC RDW 15.5 H Plt Count Lymph % (Auto) [place] % (Auto) [place] # Seg Neutrophils % Seg Neuts % (Manual) 86.0 H Lymphocytes % (Manual) 5.0 L Monocytes % (Manual) Nucleated RBC % Seg Neutrophils # Seg Neutrophils # Man 17.0 H Lymphocytes # (Manual) 1.0 L Monocytes # (Manual) 1.4 H Eosinophils # (Manual) PT INR APTT Heparin Anti-Xa Level ABG pH ABG pO2 ABG HCO3 ABG O2 Saturation ABG Base Excess ABG Hemoglobin Oxyhemoglobin Sodium 136 L Potassium Chloride Carbon Dioxide 12 L BUN 76 H Creatinine 5.2 H Glucose 228 H POC Glucose Calcium Phosphorus 8.00 H D Magnesium Alkaline Phosphatase Total Protein Albumin Triglycerides Lipase Urine WBC (Auto) Urine Creatinine Urine Total Protein Crossmatch 02/19/20 02/19/20 02/19/20 06:19 11:37 14:00 WBC RBC Hgb Hct MCHC RDW Plt Count Lymph % (Auto) [place] % (Auto) [place] # Seg Neutrophils % Seg Neuts % (Manual) Lymphocytes % (Manual) Monocytes % (Manual) Nucleated RBC % Seg Neutrophils # Seg Neutrophils # Man Lymphocytes # (Manual) Monocytes # (Manual) Eosinophils # (Manual) PT INR APTT Heparin Anti-Xa Level ABG pH ABG pO2 ABG HCO3 ABG O2 Saturation ABG Base Excess ABG Hemoglobin Oxyhemoglobin Sodium 132 L Potassium Chloride 95.4 L Carbon Dioxide 15 L BUN 75 H Creatinine 5.2 H Glucose 526 H* POC Glucose 253 H 288 H Calcium 7.6 L Phosphorus Magnesium Alkaline Phosphatase Total Protein Albumin Triglycerides Lipase Urine WBC (Auto) Urine Creatinine Urine Total Protein Crossmatch 02/19/20 02/19/20 02/19/20 14:00 15:07 17:40 WBC RBC Hgb Hct MCHC RDW Plt Count Lymph % (Auto) [place] % (Auto) [place] # Seg Neutrophils % Seg Neuts % (Manual) Lymphocytes % (Manual) Monocytes % (Manual) Nucleated RBC % Seg Neutrophils # Seg Neutrophils # Man Lymphocytes # (Manual) Monocytes # (Manual) Eosinophils # (Manual) PT INR APTT Heparin Anti-Xa Level ABG pH ABG pO2 ABG HCO3 ABG O2 Saturation ABG Base Excess ABG Hemoglobin Oxyhemoglobin Sodium Potassium Chloride Carbon Dioxide BUN Creatinine Glucose POC Glucose 324 H 328 H Calcium Phosphorus Magnesium Alkaline Phosphatase Total Protein Albumin Triglycerides Lipase Urine WBC (Auto) 166.0 H Urine Creatinine Urine Total Protein Crossmatch 02/19/20 02/20/20 02/20/20 23:40 03:15 03:15 WBC RBC Hgb Hct MCHC RDW Plt Count Lymph % (Auto) [place] % (Auto) [place] # Seg Neutrophils % Seg Neuts % (Manual) Lymphocytes % (Manual) Monocytes % (Manual) Nucleated RBC % Seg Neutrophils # Seg Neutrophils # Man Lymphocytes # (Manual) Monocytes # (Manual) Eosinophils # (Manual) PT INR APTT Heparin Anti-Xa Level 0.19 L ABG pH ABG pO2 ABG HCO3 ABG O2 Saturation ABG Base Excess ABG Hemoglobin Oxyhemoglobin Sodium Potassium 3.5 L D Chloride Carbon Dioxide 19 L BUN 85 H Creatinine 5.4 H Glucose 353 H POC Glucose 390 H Calcium 8.3 L Phosphorus 6.50 H Magnesium Alkaline Phosphatase Total Protein Albumin Triglycerides Lipase Urine WBC (Auto) Urine Creatinine Urine Total Protein Crossmatch 02/20/20 02/20/20 02/20/20 03:15 04:29 05:21 WBC 13.6 H RBC 2.43 L Hgb 7.1 L Hct 21.3 L D MCHC RDW Plt Count 136 L Lymph % (Auto) [place] % (Auto) [place] # Seg Neutrophils % Seg Neuts % (Manual) 81.0 H Lymphocytes % (Manual) 5.0 L Monocytes % (Manual) Nucleated RBC % Seg Neutrophils # Seg Neutrophils # Man 11.0 H Lymphocytes # (Manual) 0.7 L Monocytes # (Manual) Eosinophils # (Manual) PT INR APTT Heparin Anti-Xa Level ABG pH ABG pO2 ABG HCO3 ABG O2 Saturation ABG Base Excess -3.8 L ABG Hemoglobin 6.0 L Oxyhemoglobin 94.6 L Sodium Potassium Chloride Carbon Dioxide BUN Creatinine Glucose POC Glucose 400 H Calcium Phosphorus Magnesium Alkaline Phosphatase Total Protein Albumin Triglycerides Lipase Urine WBC (Auto) Urine Creatinine Urine Total Protein Crossmatch 02/20/20 02/20/20 02/20/20 11:52 18:30 20:02 WBC RBC Hgb Hct MCHC RDW Plt Count Lymph % (Auto) [place] % (Auto) [place] # Seg Neutrophils % Seg Neuts % (Manual) Lymphocytes % (Manual) Monocytes % (Manual) Nucleated RBC % Seg Neutrophils # Seg Neutrophils # Man Lymphocytes # (Manual) Monocytes # (Manual) Eosinophils # (Manual) PT INR APTT Heparin Anti-Xa Level ABG pH ABG pO2 ABG HCO3 ABG O2 Saturation ABG Base Excess ABG Hemoglobin Oxyhemoglobin Sodium Potassium Chloride Carbon Dioxide BUN Creatinine Glucose 584 H* POC Glucose 348 H 422 H Calcium Phosphorus Magnesium Alkaline Phosphatase Total Protein Albumin Triglycerides Lipase Urine WBC (Auto) Urine Creatinine Urine Total Protein Crossmatch 02/20/20 02/21/20 02/21/20 23:31 03:53 03:53 WBC RBC Hgb 5.9 L* Hct 18.5 L* MCHC RDW Plt Count Lymph % (Auto) [place] % (Auto) [place] # Seg Neutrophils % Seg Neuts % (Manual) Lymphocytes % (Manual) Monocytes % (Manual) Nucleated RBC % Seg Neutrophils # Seg Neutrophils # Man Lymphocytes # (Manual) Monocytes # (Manual) Eosinophils # (Manual) PT INR APTT Heparin Anti-Xa Level 1.13 H ABG pH ABG pO2 ABG HCO3 ABG O2 Saturation ABG Base Excess ABG Hemoglobin Oxyhemoglobin Sodium Potassium Chloride Carbon Dioxide BUN Creatinine Glucose POC Glucose 341 H Calcium Phosphorus Magnesium Alkaline Phosphatase Total Protein Albumin Triglycerides Lipase Urine WBC (Auto) Urine Creatinine Urine Total Protein Crossmatch 02/21/20 02/21/20 02/21/20 03:53 04:16 06:00 WBC RBC Hgb Hct MCHC RDW Plt Count Lymph % (Auto) [place] % (Auto) [place] # Seg Neutrophils % Seg Neuts % (Manual) Lymphocytes % (Manual) Monocytes % (Manual) Nucleated RBC % Seg Neutrophils # Seg Neutrophils # Man Lymphocytes # (Manual) Monocytes # (Manual) Eosinophils # (Manual) PT INR APTT Heparin Anti-Xa Level ABG pH 7.318 L ABG pO2 100.0 H ABG HCO3 ABG O2 Saturation ABG Base Excess -4.4 L ABG Hemoglobin 9.1 L Oxyhemoglobin Sodium 136 L Potassium Chloride 97.5 L Carbon Dioxide 21 L BUN 97 H Creatinine 5.3 H Glucose 246 H POC Glucose Calcium 8.1 L Phosphorus Magnesium Alkaline Phosphatase Total Protein Albumin Triglycerides Lipase Urine WBC (Auto) Urine Creatinine Urine Total Protein Crossmatch See Detail 02/21/20 02/21/20 02/21/20 06:32 11:45 17:40 WBC RBC Hgb Hct MCHC RDW Plt Count Lymph % (Auto) [place] % (Auto) [place] # Seg Neutrophils % Seg Neuts % (Manual) Lymphocytes % (Manual) Monocytes % (Manual) Nucleated RBC % Seg Neutrophils # Seg Neutrophils # Man Lymphocytes # (Manual) Monocytes # (Manual) Eosinophils # (Manual) PT INR APTT Heparin Anti-Xa Level ABG pH ABG pO2 ABG HCO3 ABG O2 Saturation ABG Base Excess ABG Hemoglobin Oxyhemoglobin Sodium Potassium Chloride Carbon Dioxide BUN Creatinine Glucose POC Glucose 317 H 389 H 387 H Calcium Phosphorus Magnesium Alkaline Phosphatase Total Protein Albumin Triglycerides Lipase Urine WBC (Auto) Urine Creatinine Urine Total Protein Crossmatch 02/21/20 02/22/20 02/22/20 23:37 03:16 03:16 WBC 22.8 H RBC 2.49 L Hgb 7.4 L Hct 22.7 L MCHC RDW 15.6 H Plt Count Lymph % (Auto) [place] % (Auto) [place] # Seg Neutrophils % Seg Neuts % (Manual) 74.0 H Lymphocytes % (Manual) 8.5 L Monocytes % (Manual) 13.5 H Nucleated RBC % 2.5 H Seg Neutrophils # Seg Neutrophils # Man 16.9 H Lymphocytes # (Manual) Monocytes # (Manual) 3.1 H Eosinophils # (Manual) 0.5 H PT INR APTT Heparin Anti-Xa Level 0.27 L ABG pH ABG pO2 ABG HCO3 ABG O2 Saturation ABG Base Excess ABG Hemoglobin Oxyhemoglobin Sodium Potassium Chloride Carbon Dioxide BUN Creatinine Glucose POC Glucose 297 H Calcium Phosphorus Magnesium Alkaline Phosphatase Total Protein Albumin Triglycerides Lipase Urine WBC (Auto) Urine Creatinine Urine Total Protein Crossmatch 02/22/20 02/22/20 02/22/20 03:16 05:16 11:50 WBC RBC Hgb Hct MCHC RDW Plt Count Lymph % (Auto) [place] % (Auto) [place] # Seg Neutrophils % Seg Neuts % (Manual) Lymphocytes % (Manual) Monocytes % (Manual) Nucleated RBC % Seg Neutrophils # Seg Neutrophils # Man Lymphocytes # (Manual) Monocytes # (Manual) Eosinophils # (Manual) PT INR APTT Heparin Anti-Xa Level ABG pH ABG pO2 ABG HCO3 ABG O2 Saturation ABG Base Excess ABG Hemoglobin Oxyhemoglobin Sodium 135 L Potassium Chloride 95.2 L Carbon Dioxide BUN 83 H Creatinine 4.3 H Glucose 264 H POC Glucose 321 H 351 H Calcium 8.1 L Phosphorus 4.60 H Magnesium Alkaline Phosphatase Total Protein Albumin Triglycerides Lipase Urine WBC (Auto) Urine Creatinine Urine Total Protein Crossmatch 02/22/20 02/23/20 02/23/20 17:26 00:04 02:55 WBC 25.6 H RBC 1.86 L Hgb 5.7 L* Hct 17.3 L* MCHC RDW 16.0 H Plt Count Lymph % (Auto) [place] % (Auto) [place] # Seg Neutrophils % Seg Neuts % (Manual) 80.5 H Lymphocytes % (Manual) 9.5 L Monocytes % (Manual) Nucleated RBC % 1.0 H Seg Neutrophils # Seg Neutrophils # Man 20.6 H Lymphocytes # (Manual) Monocytes # (Manual) 1.5 H Eosinophils # (Manual) PT INR APTT Heparin Anti-Xa Level ABG pH ABG pO2 ABG HCO3 ABG O2 Saturation ABG Base Excess ABG Hemoglobin Oxyhemoglobin Sodium Potassium Chloride Carbon Dioxide BUN Creatinine Glucose POC Glucose 356 H 359 H Calcium Phosphorus Magnesium Alkaline Phosphatase Total Protein Albumin Triglycerides Lipase Urine WBC (Auto) Urine Creatinine Urine Total Protein Crossmatch 02/23/20 02/23/20 02/23/20 02:55 02:55 05:33 WBC RBC Hgb Hct MCHC RDW Plt Count Lymph % (Auto) [place] % (Auto) [place] # Seg Neutrophils % Seg Neuts % (Manual) Lymphocytes % (Manual) Monocytes % (Manual) Nucleated RBC % Seg Neutrophils # Seg Neutrophils # Man Lymphocytes # (Manual) Monocytes # (Manual) Eosinophils # (Manual) PT INR APTT Heparin Anti-Xa Level 0.15 L ABG pH ABG pO2 ABG HCO3 ABG O2 Saturation ABG Base Excess ABG Hemoglobin Oxyhemoglobin Sodium 130 L Potassium Chloride 92.8 L Carbon Dioxide BUN 94 H Creatinine 4.7 H Glucose 293 H POC Glucose 330 H Calcium Phosphorus Magnesium Alkaline Phosphatase Total Protein Albumin Triglycerides Lipase Urine WBC (Auto) Urine Creatinine Urine Total Protein Crossmatch 02/23/20 02/23/20 02/23/20 12:03 13:13 18:34 WBC 24.2 H RBC 2.61 L Hgb 8.3 L Hct 24.4 L D MCHC RDW Plt Count 125 L Lymph % (Auto) [place] % (Auto) [place] # Seg Neutrophils % Seg Neuts % (Manual) Lymphocytes % (Manual) Monocytes % (Manual) Nucleated RBC % Seg Neutrophils # Seg Neutrophils # Man Lymphocytes # (Manual) Monocytes # (Manual) Eosinophils # (Manual) PT INR APTT Heparin Anti-Xa Level ABG pH ABG pO2 ABG HCO3 ABG O2 Saturation ABG Base Excess ABG Hemoglobin Oxyhemoglobin Sodium Potassium Chloride Carbon Dioxide BUN Creatinine Glucose POC Glucose 310 H 337 H Calcium Phosphorus Magnesium Alkaline Phosphatase Total Protein Albumin Triglycerides Lipase Urine WBC (Auto) Urine Creatinine Urine Total Protein Crossmatch 02/23/20 02/24/20 02/24/20 22:28 05:25 05:40 WBC 21.0 H RBC 2.40 L Hgb 7.3 L Hct 23.4 L MCHC RDW 15.8 H Plt Count 120 L Lymph % (Auto) [place] % (Auto) [place] # Seg Neutrophils % Seg Neuts % (Manual) 87.0 H Lymphocytes % (Manual) 5.0 L Monocytes % (Manual) Nucleated RBC % 1.0 H Seg Neutrophils # Seg Neutrophils # Man 18.3 H Lymphocytes # (Manual) 1.1 L Monocytes # (Manual) 1.1 H Eosinophils # (Manual) PT INR APTT Heparin Anti-Xa Level ABG pH ABG pO2 ABG HCO3 ABG O2 Saturation ABG Base Excess ABG Hemoglobin Oxyhemoglobin Sodium Potassium Chloride Carbon Dioxide BUN Creatinine Glucose POC Glucose 314 H 307 H Calcium Phosphorus Magnesium Alkaline Phosphatase Total Protein Albumin Triglycerides Lipase Urine WBC (Auto) Urine Creatinine Urine Total Protein Crossmatch 02/24/20 02/24/20 02/24/20 05:40 09:05 12:11 WBC RBC Hgb Hct MCHC RDW Plt Count Lymph % (Auto) [place] % (Auto) [place] # Seg Neutrophils % Seg Neuts % (Manual) Lymphocytes % (Manual) Monocytes % (Manual) Nucleated RBC % Seg Neutrophils # Seg Neutrophils # Man Lymphocytes # (Manual) Monocytes # (Manual) Eosinophils # (Manual) PT INR APTT Heparin Anti-Xa Level ABG pH ABG pO2 ABG HCO3 ABG O2 Saturation ABG Base Excess ABG Hemoglobin Oxyhemoglobin Sodium 123 L D 134 L D Potassium 6.8 H* D Chloride 88.1 L 96 L Carbon Dioxide 19 L BUN 83 H 89 H Creatinine 3.9 H 4.2 H Glucose 657 H* 262 H POC Glucose 217 H Calcium 8.1 L Phosphorus 4.90 H Magnesium 2.50 H Alkaline Phosphatase Total Protein Albumin Triglycerides Lipase Urine WBC (Auto) Urine Creatinine Urine Total Protein Crossmatch 02/24/20 02/24/20 02/25/20 17:58 23:23 05:25 WBC 25.3 H RBC 2.59 L Hgb 8.1 L Hct 23.9 L MCHC RDW Plt Count Lymph % (Auto) [place] % (Auto) [place] # Seg Neutrophils % Seg Neuts % (Manual) 87.0 H Lymphocytes % (Manual) 6.0 L Monocytes % (Manual) Nucleated RBC % Seg Neutrophils # Seg Neutrophils # Man 22.0 H Lymphocytes # (Manual) Monocytes # (Manual) 1.5 H Eosinophils # (Manual) PT INR APTT Heparin Anti-Xa Level ABG pH ABG pO2 ABG HCO3 ABG O2 Saturation ABG Base Excess ABG Hemoglobin Oxyhemoglobin Sodium Potassium Chloride Carbon Dioxide BUN Creatinine Glucose POC Glucose 236 H 223 H Calcium Phosphorus Magnesium Alkaline Phosphatase Total Protein Albumin Triglycerides Lipase Urine WBC (Auto) Urine Creatinine Urine Total Protein Crossmatch 02/25/20 02/25/20 02/25/20 05:25 05:40 11:47 WBC RBC Hgb Hct MCHC RDW Plt Count Lymph % (Auto) [place] % (Auto) [place] # Seg Neutrophils % Seg Neuts % (Manual) Lymphocytes % (Manual) Monocytes % (Manual) Nucleated RBC % Seg Neutrophils # Seg Neutrophils # Man Lymphocytes # (Manual) Monocytes # (Manual) Eosinophils # (Manual) PT INR APTT Heparin Anti-Xa Level ABG pH ABG pO2 ABG HCO3 ABG O2 Saturation ABG Base Excess ABG Hemoglobin Oxyhemoglobin Sodium 132 L Potassium Chloride 94.9 L Carbon Dioxide BUN 100 H Creatinine 4.9 H Glucose 174 H POC Glucose 173 H 154 H Calcium Phosphorus Magnesium Alkaline Phosphatase Total Protein 5.0 L Albumin 2.3 L Triglycerides Lipase Urine WBC (Auto) Urine Creatinine Urine Total Protein Crossmatch 02/25/20 02/25/20 02/26/20 17:53 23:49 05:00 WBC 16.2 H RBC 2.36 L Hgb 7.4 L Hct 22.0 L MCHC RDW 15.5 H Plt Count Lymph % (Auto) 7.8 L [place] % (Auto) 8.5 H [place] # 1.4 H Seg Neutrophils % 83.1 H Seg Neuts % (Manual) Lymphocytes % (Manual) Monocytes % (Manual) Nucleated RBC % Seg Neutrophils # 13.5 H Seg Neutrophils # Man Lymphocytes # (Manual) Monocytes # (Manual) Eosinophils # (Manual) PT INR APTT Heparin Anti-Xa Level ABG pH ABG pO2 ABG HCO3 ABG O2 Saturation ABG Base Excess ABG Hemoglobin Oxyhemoglobin Sodium Potassium Chloride Carbon Dioxide BUN Creatinine Glucose POC Glucose 131 H 124 H Calcium Phosphorus Magnesium Alkaline Phosphatase Total Protein Albumin Triglycerides Lipase Urine WBC (Auto) Urine Creatinine Urine Total Protein Crossmatch 02/26/20 02/26/20 02/26/20 05:00 17:25 23:19 WBC RBC Hgb Hct MCHC RDW Plt Count Lymph % (Auto) [place] % (Auto) [place] # Seg Neutrophils % Seg Neuts % (Manual) Lymphocytes % (Manual) Monocytes % (Manual) Nucleated RBC % Seg Neutrophils # Seg Neutrophils # Man Lymphocytes # (Manual) Monocytes # (Manual) Eosinophils # (Manual) PT INR APTT Heparin Anti-Xa Level ABG pH ABG pO2 ABG HCO3 ABG O2 Saturation ABG Base Excess ABG Hemoglobin Oxyhemoglobin Sodium Potassium Chloride Carbon Dioxide BUN 74 H Creatinine 4.1 H Glucose POC Glucose 123 H 130 H Calcium Phosphorus Magnesium Alkaline Phosphatase Total Protein Albumin Triglycerides Lipase Urine WBC (Auto) Urine Creatinine Urine Total Protein Crossmatch 02/27/20 02/27/20 02/27/20 05:40 11:55 18:17 WBC RBC Hgb Hct MCHC RDW Plt Count Lymph % (Auto) [place] % (Auto) [place] # Seg Neutrophils % Seg Neuts % (Manual) Lymphocytes % (Manual) Monocytes % (Manual) Nucleated RBC % Seg Neutrophils # Seg Neutrophils # Man Lymphocytes # (Manual) Monocytes # (Manual) Eosinophils # (Manual) PT INR APTT Heparin Anti-Xa Level ABG pH ABG pO2 ABG HCO3 ABG O2 Saturation ABG Base Excess ABG Hemoglobin Oxyhemoglobin Sodium Potassium Chloride Carbon Dioxide BUN Creatinine Glucose POC Glucose 203 H 297 H 317 H Calcium Phosphorus Magnesium Alkaline Phosphatase Total Protein Albumin Triglycerides Lipase Urine WBC (Auto) Urine Creatinine Urine Total Protein Crossmatch 02/27/20 02/28/20 02/28/20 23:55 05:22 09:25 WBC 15.1 H RBC 2.37 L Hgb 7.3 L Hct 22.6 L MCHC RDW 16.6 H Plt Count Lymph % (Auto) [place] % (Auto) [place] # Seg Neutrophils % Seg Neuts % (Manual) Lymphocytes % (Manual) Monocytes % (Manual) Nucleated RBC % Seg Neutrophils # Seg Neutrophils # Man Lymphocytes # (Manual) Monocytes # (Manual) Eosinophils # (Manual) PT INR APTT Heparin Anti-Xa Level ABG pH ABG pO2 ABG HCO3 ABG O2 Saturation ABG Base Excess ABG Hemoglobin Oxyhemoglobin Sodium Potassium Chloride Carbon Dioxide BUN Creatinine Glucose POC Glucose 371 H 380 H Calcium Phosphorus Magnesium Alkaline Phosphatase Total Protein Albumin Triglycerides Lipase Urine WBC (Auto) Urine Creatinine Urine Total Protein Crossmatch 02/28/20 02/28/20 02/28/20 09:25 12:16 17:57 WBC RBC Hgb Hct MCHC RDW Plt Count Lymph % (Auto) [place] % (Auto) [place] # Seg Neutrophils % Seg Neuts % (Manual) Lymphocytes % (Manual) Monocytes % (Manual) Nucleated RBC % Seg Neutrophils # Seg Neutrophils # Man Lymphocytes # (Manual) Monocytes # (Manual) Eosinophils # (Manual) PT INR APTT Heparin Anti-Xa Level ABG pH ABG pO2 ABG HCO3 ABG O2 Saturation ABG Base Excess ABG Hemoglobin Oxyhemoglobin Sodium Potassium Chloride Carbon Dioxide 18 L BUN 105 H Creatinine 5.9 H Glucose 370 H POC Glucose 450 H 378 H Calcium 8.2 L Phosphorus Magnesium Alkaline Phosphatase Total Protein Albumin Triglycerides Lipase Urine WBC (Auto) Urine Creatinine Urine Total Protein Crossmatch 02/28/20 02/28/20 02/29/20 21:44 23:45 05:26 WBC RBC Hgb Hct MCHC RDW Plt Count Lymph % (Auto) [place] % (Auto) [place] # Seg Neutrophils % Seg Neuts % (Manual) Lymphocytes % (Manual) Monocytes % (Manual) Nucleated RBC % Seg Neutrophils # Seg Neutrophils # Man Lymphocytes # (Manual) Monocytes # (Manual) Eosinophils # (Manual) PT INR APTT Heparin Anti-Xa Level ABG pH ABG pO2 ABG HCO3 ABG O2 Saturation ABG Base Excess ABG Hemoglobin Oxyhemoglobin Sodium Potassium Chloride Carbon Dioxide BUN Creatinine Glucose POC Glucose 345 H 353 H 308 H Calcium Phosphorus Magnesium Alkaline Phosphatase Total Protein Albumin Triglycerides Lipase Urine WBC (Auto) Urine Creatinine Urine Total Protein Crossmatch
--- NOTE | 2020-02-29 11:26 | Progress Note ---
Assessment and Plan - Patient Problems (1) Ischemic necrosis of small bowel Current Visit: Yes Status: Acute Plan to address problem: Assessment and Plan 74-year-old female status post 1. Exploratory laparotomy, enterocolonic anastamosis, closure of abdomen, application of wound vac, POD 13 2. Exploratory laparotomy, extensive small bowel resection, partial colon resection, placement of abthera vac, placement of right radial arterial line, 02/13/20 1. bowel ischemia with gangrene 2. sepsis 3. LITZY 4. Afib with RVR 5. Tobacco dependence 6. Venous duplex - L superficial femoral vein nonocclusive thrombus 7. Cdiff + 8. Protein calorie malnutrition CXR 02/20/20 - no residual disease CT C/A/P 02/19/20 - post operative changes of right colon. Anastamosis is intact. Generalized edema of abdominal wall. Pt currently hemodynamically stable. Tolerating TF at goal, having bowel function. Abdominal exam is benign. Afebrile x 48 hours. Plan: 1. neuro - Continue as needed pain control - fent gtt off, ativan and dilaudid prn ordered. Mental status much improved today 2. CV - cardiology on board for Afib. monitor H/H. On Eliquis. 3. Resp - vent management per ICU team 4. GI - Cont TF via NGT. Hold if residual >250cc. Continue incisional wound VAC . GI ppx 5. - strict I/Os. Nephrology on board, HD started. Wool Hanker stable, patient nonoliguric. 6. ID - continue abx per ID. Blcx 02/23 - staph epidemidis. ?contaminant. Repeat Blcx pending. HD catheter removed yesterday. PICC line unable to be removed due to edema and inability to obtain alternative PIV. 7. Endo - strict glucose control 8. Musc - turning q2 as per protocol, skin breakdown precautions, SCDs. 9. FEN - Cont TF@goal, Replace lytes as needed. LTACH planning in progress. Family arranged to visit today. Helminthology Teacher notes reviewed and recs appreciated. Discussed with Dr. Cervantes. Prognosis is guarded Thank you, please call with questions. Subjective Date of service: 02/29/20 Narrative: Pt seen and examined. Awake on vent. No f/c. Tolerating TF. Denies pain. Objective Vital Signs - 12hr 02/28/20 02/28/20 02/28/20 23:30 23:35 23:44 Temperature 98.8 F Pulse Rate 112 H 123 H Pulse Rate [ From Monitor] Respiratory 26 H 15 Rate Blood Pressure 148/99 150/84 O2 Sat by Pulse Oximetry 02/29/20 02/29/20 02/29/20 00:00 00:30 00:40 Temperature Pulse Rate 93 H 125 H 105 H Pulse Rate [ 109 H From Monitor] Respiratory 17 20 Rate Blood Pressure 112/61 155/95 155/100 O2 Sat by Pulse 100 Oximetry 02/29/20 02/29/20 02/29/20 01:00 01:30 02:00 Temperature Pulse Rate 92 H 93 H 92 H Pulse Rate [ From Monitor] Respiratory 21 22 18 Rate Blood Pressure 163/88 139/65 143/70 O2 Sat by Pulse Oximetry 02/29/20 02/29/20 02/29/20 02:30 03:00 03:04 Temperature 99.8 F H Pulse Rate 114 H 115 H Pulse Rate [ From Monitor] Respiratory 27 H 26 H Rate Blood Pressure 166/93 163/103 O2 Sat by Pulse Oximetry 02/29/20 02/29/20 02/29/20 03:30 03:48 04:00 Temperature Pulse Rate 123 H 123 H 107 H Pulse Rate [ 92 H From Monitor] Respiratory 25 H 25 H Rate Blood Pressure 168/102 150/93 150/93 O2 Sat by Pulse 100 Oximetry 02/29/20 02/29/20 02/29/20 04:30 04:31 05:00 Temperature Pulse Rate 93 H 88 75 Pulse Rate [ From Monitor] Respiratory 21 21 Rate Blood Pressure 112/61 99/63 O2 Sat by Pulse 100 Oximetry 02/29/20 02/29/20 02/29/20 05:30 06:00 06:30 Temperature Pulse Rate 92 H 105 H 122 H Pulse Rate [ From Monitor] Respiratory 21 24 19 Rate Blood Pressure 109/70 103/82 101/81 O2 Sat by Pulse Oximetry 02/29/20 02/29/20 02/29/20 07:00 07:30 08:00 Temperature 98.5 F Pulse Rate 105 H 107 H 106 H Pulse Rate [ From Monitor] Respiratory 26 H 33 H 29 H Rate Blood Pressure 128/76 139/76 140/69 O2 Sat by Pulse Oximetry 02/29/20 02/29/20 09:20 10:02 Temperature Pulse Rate 101 H Pulse Rate [ From Monitor] Respiratory 24 Rate Blood Pressure 133/57 O2 Sat by Pulse 100 Oximetry - General physical appearance Narrative Exam: Gen: Intubated on vent, awake. NAD. Following commands. ENT: ETT and NGT in place CV: s1, S2+ Resp: on vent. No wheezes Abd: soft, NT, ND. Incisional wound vac with good seal, no leak. Scant serosang drainage in canister Ext: + edema : corcoran with clear yellow urine Rectal: rectal tube with dark brown stool - Labs 02/28/20 09:25 02/28/20 09:25
[2020-02-29] MEDS: INSULIN GLARGINE 100 UNITS/ML SUB-Q SCH ×2 (12:16→21:34)
--- NOTE | 2020-02-29 14:19 | Progress Note ---
Assessment and Plan - Patient Problems (1) Atrial fibrillation Current Visit: Yes Status: Acute Plan to address problem: Paroxysmal atrial fibrillation, will continue medical therapy as previously outlined. Subjective Date of service: 02/29/20 Principal diagnosis: Ischemic Bowel Interval history: Patient is awake and alert, but remains on the vent with respiratory failure. gate person shows an atrial fibrillation with heart rate in the 100s, blood pressure 150 systolic. Objective Vital Signs Temp Pulse Pulse Resp BP Pulse Ox 02/29/20 13:30 100 H 31 H 150/88 100 02/29/20 13:00 113 H 33 H 157/97 99 02/29/20 12:30 121 H 32 H 150/81 100 02/29/20 12:22 117 H 150/81 02/29/20 12:00 97.6 F 118 H 118 H 18 128/73 100 02/29/20 11:56 106 H 128/73 100 02/29/20 11:30 96 H 20 129/65 100 02/29/20 11:02 21 02/29/20 11:00 96 H 23 140/57 100 02/29/20 10:30 101 H 26 H 118/66 99 02/29/20 10:02 24 02/29/20 10:00 95 H 28 H 106/85 100 02/29/20 09:30 100 H 26 H 99 02/29/20 09:20 101 H 133/57 100 02/29/20 09:00 96 H 27 H 128/95 02/29/20 08:30 101 H 27 H 126/74 02/29/20 08:00 98.5 F 106 H 106 H 21 140/69 100 02/29/20 07:30 107 H 33 H 139/76 02/29/20 07:00 105 H 26 H 128/76 02/29/20 06:30 122 H 19 101/81 02/29/20 06:00 105 H 24 103/82 02/29/20 05:30 92 H 21 109/70 02/29/20 05:00 75 21 99/63 02/29/20 04:31 88 100 02/29/20 04:30 93 H 21 112/61 02/29/20 04:00 107 H 92 H 25 H 150/93 100 02/29/20 03:48 123 H 150/93 02/29/20 03:30 123 H 25 H 168/102 07/05/20 03:04 99.8 F H 02/29/20 03:00 115 H 26 H 163/103 02/29/20 02:30 114 H 27 H 166/93 02/29/20 02:00 92 H 18 143/70 02/29/20 01:30 93 H 22 139/65 02/29/20 01:00 92 H 21 163/88 02/29/20 00:40 105 H 155/100 02/29/20 00:30 125 H 20 155/95 02/29/20 00:00 93 H 109 H 17 112/61 100 02/28/20 23:44 123 H 15 150/84 02/28/20 23:35 98.8 F 02/28/20 23:30 112 H 26 H 148/99 02/28/20 23:00 129 H 19 158/107 02/28/20 22:30 105 H 21 134/84 02/28/20 22:00 92 H 21 134/64 100 02/28/20 21:30 113 H 23 159/100 100 02/28/20 21:00 117 H 25 H 158/98 100 02/28/20 20:30 111 H 24 153/118 100 02/28/20 20:00 98.7 F 105 H 113 H 26 H 148/78 100 02/28/20 19:42 90 149/79 100 02/28/20 19:30 90 22 150/73 100 02/28/20 19:00 92 H 21 145/70 100 02/28/20 18:30 92 H 17 136/94 100 02/28/20 18:08 105 H 140/79 02/28/20 18:00 111 H 23 140/79 100 02/28/20 17:30 121 H 24 168/107 100 02/28/20 17:00 105 H 23 153/102 100 02/28/20 16:30 112 H 23 103/82 100 02/28/20 16:00 98.6 F 103 H 104 H 25 H 112/69 100 02/28/20 15:30 92 H 25 H 128/69 100 02/28/20 15:28 83 132/65 100 02/28/20 15:22 21 02/28/20 15:00 91 H 22 132/65 100 02/28/20 14:30 91 H 24 133/94 100 07/04/20 14:22 22 - Physical Examination General: Other (Intubated, on the vent) HEENT: Positive: PERRL Neck: Positive: neck supple, trachea midline. Negative: JVD/HJR Cardiac: Positive: Irregularly Regular Lungs: Positive: Decreased Breath Sounds Neuro: Positive: Other (Intubated, on the vent) Abdomen: Positive: Distended Skin: Positive: Clear Extremities: Absent: edema
--- NOTE | 2020-02-29 15:49 | Event Note ---
Date: 02/29/20 Reviewed chart for 24 hours events. Patient not seen in person, no labs for review. Concerned by lower urine output, creatinine 5.9 yesterday. Vascath removed yesterday due to bacteremia; while hopeful for renal recovery, suspect patient will need vascath replaced soon and require further renal replacement therapy. Will assess labs tomorrow, volume status before deciding on vascath replacement; ideally would want >48 hours of line holiday given bacteremia. Without fevers over past 24 hours which is reassuring. Nephrology will continue to follow.
[2020-03-01] MEDS: METOPROLOL TARTRATE 50 MG TAB PO SCH ×3 (03:33→22:43)
[2020-03-01] MEDS: INSULIN LISPRO 100 UNIT/ML SUB-Q SCH ×4 (06:02→23:33)
[2020-03-01] MEDS: fentaNYL 100 MCG/2 ML INJ IV PRN ×2 (07:48→14:01)
--- NOTE | 2020-03-01 08:26 | Progress Note ---
Subjective Principal diagnosis: Ischemic Bowel Interval history: Patient was seen today for follow-up of multiple renal related issues she is currently intubated, acute renal failure initiated on renal replacement therapy Discussed about renal issues with my partner as well as reviewed hospital notes Patient remains intubated but she is alert awake Interdisciplinary notes that also reviewed Events of 24 hours vitals labs intake output medications were reviewed Past medical history: Reviewed Family history: Reviewed Social history: Reviewed Allergies: Reviewed Physical examination: Vitals: Reviewed HEENT: No pallor or icterus oral mucosa moist orally intubated Neck: Supple no JVD no thyromegaly Chest: few bilateral basilar crackles Heart: Regular rate and rhythm S1-S2 heard no S3-S4 Abdomen: Soft nontender postoperative Extremity: Dry skin less than 1+ peripheral edema Psychiatric: No evidence of agitation and aggression noted Dermatology: No petechial rashes Labs and x-rays: Reviewed from today Assessment and plan Acute kidney injury, patient will need renal replacement therapy consultation has already been placed with vascular discussed with my partner, dialysis orders have been already placed by Dr. 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 difficile colitis Multiple other comorbidities which makes her overall prognosis still very guarded possibly poor/poor mortality risk remains. High We'll continue to follow and make recommendation for renal standpoint Objective - Vital Signs Vital signs: Vital Signs - 12hr 02/29/20 02/29/20 02/29/20 20:30 21:00 21:21 Temperature Pulse Rate 93 H 95 H 71 Pulse Rate [ From Monitor] Respiratory 27 H 27 H Rate Blood Pressure 152/71 156/74 137/69 O2 Sat by Pulse 100 100 100 Oximetry 02/29/20 02/29/20 02/29/20 21:30 22:00 22:30 Temperature Pulse Rate 95 H 107 H 116 H Pulse Rate [ From Monitor] Respiratory 23 24 28 H Rate Blood Pressure 137/69 111/75 133/77 O2 Sat by Pulse 100 99 99 Oximetry 02/29/20 02/29/20 02/29/20 23:00 23:06 23:30 Temperature Pulse Rate 128 H 119 H 118 H Pulse Rate [ From Monitor] Respiratory 26 H 27 H 26 H Rate Blood Pressure 154/135 159/108 146/75 O2 Sat by Pulse 100 98 100 Oximetry 02/29/20 03/01/20 03/01/20 23:43 00:00 00:30 Temperature 98.6 F Pulse Rate 105 H 96 H Pulse Rate [ 132 H From Monitor] Respiratory 23 21 Rate Blood Pressure 147/72 103/47 O2 Sat by Pulse 100 100 Oximetry 03/01/20 03/01/20 03/01/20 01:00 01:30 02:00 Temperature Pulse Rate 92 H 98 H 107 H Pulse Rate [ From Monitor] Respiratory 19 26 H 26 H Rate Blood Pressure 112/54 94/64 136/88 O2 Sat by Pulse 100 100 100 Oximetry 03/01/20 03/01/20 03/01/20 02:30 03:00 03:03 Temperature 98.9 F Pulse Rate 111 H 103 H Pulse Rate [ From Monitor] Respiratory 23 25 H Rate Blood Pressure 149/66 147/72 O2 Sat by Pulse 100 100 Oximetry 03/01/20 03/01/20 03/01/20 03:30 03:33 04:00 Temperature Pulse Rate 94 H 98 H 99 H Pulse Rate [ 118 H From Monitor] Respiratory 20 21 Rate Blood Pressure 143/62 125/59 125/61 O2 Sat by Pulse 100 99 Oximetry 03/01/20 03/01/20 03/01/20 04:30 04:47 05:00 Temperature Pulse Rate 74 92 H 92 H Pulse Rate [ From Monitor] Respiratory 20 22 Rate Blood Pressure 132/61 120/69 120/69 O2 Sat by Pulse 100 100 99 Oximetry 03/01/20 03/01/20 03/01/20 05:30 06:00 06:30 Temperature Pulse Rate 95 H 83 82 Pulse Rate [ From Monitor] Respiratory 25 H 20 25 H Rate Blood Pressure 120/69 161/81 152/79 O2 Sat by Pulse 100 100 100 Oximetry 03/01/20 07:48 Temperature Pulse Rate Pulse Rate [ From Monitor] Respiratory 21 Rate Blood Pressure O2 Sat by Pulse Oximetry - Lab 03/01/20 10:00 03/01/20 10:00 Most recent lab results ABG pH 7.318 pH Units (7.350-7.450) L 02/21/20 04:16 ABG pCO2 42.7 mm Hg 02/21/20 04:16 ABG pO2 100.0 mm Hg (80.0-90.0) H 02/21/20 04:16 ABG HCO3 21.4 mmol/L (20.0-26.0) 02/21/20 04:16 ABG O2 Saturation 97.2 % (95.0-99.0) 02/21/20 04:16 Calcium 8.2 mg/dL (8.4-10.2) L 02/28/20 09:25 Phosphorus 4.90 mg/dL (2.5-4.5) H 02/24/20 05:40 Magnesium 2.20 mg/dL (1.7-2.3) 02/25/20 05:25 Urine Creatinine 35.3 mg/dL (0.1-20.0) H 02/12/20 Unknown Urine Total Protein 796 mg/dL (5-11.8) H 02/12/20 Unknown Medications & Allergies - Medications Allergies/Adverse Reactions: Allergies clindamycin Allergy (Verified 02/11/20 14:52) Hives Home Medications: Home Medications Medication Instructions Recorded Confirmed Last Taken Type Doxazosin [Cardura] 4 mg PO QDAY 02/11/20 02/11/20 02/10/20 History Hydralazine HCl 50 mg PO DAILY 02/11/20 02/11/20 02/10/20 History Metoprolol 25 mg PO DAILY 02/11/20 02/11/20 02/10/20 History Sertraline [Zoloft] 50 mg PO QDAY 02/11/20 02/11/20 02/10/20 History amLODIPine [Norvasc] 10 mg PO DAILY 02/11/20 02/11/20 02/10/20 History glipiZIDE 10 mg PO BID 02/11/20 02/11/20 02/10/20 History Active Medications: Generic Name Dose Route Start Last Admin Trade Name Freq PRN Reason Stop Dose Admin Acetaminophen 650 mg 02/11/20 19:01 02/27/20 12:00 Tylenol PO 650 mg Q4H PRN Administration Pain MILD(1-3)/Fever >100.5/ADAMS Amiodarone HCl 200 mg 02/24/20 10:00 02/29/20 09:48 Cordarone PO 200 mg QDAY NADER Administration Lipase/Protease/Amylase 1 each 02/20/20 10:28 Janee Daugherty 10,500 Unit FEEDTUBE PRN PRN For Clogged Feeding Tube Apixaban 10 mg 02/26/20 12:00 02/29/20 21:35 Eliquis PO 03/03/20 22:01 10 mg Q12HR NADER Administration Protocol Apixaban 5 mg 03/04/20 10:00 Eliquis PO Q12HR NADER Protocol Dextrose 50 ml 02/19/20 14:58 D50w (25gm) Syringe IV Q30MIN PRN Hypoglycemia Protocol Famotidine 20 mg 02/24/20 10:00 02/29/20 09:47 Pepcid PO 20 mg DAILY NADER Administration Fentanyl 50 mcg 02/19/20 15:30 02/28/20 21:39 Sublimaze IV 50 mcg Q10MIN PRN Administration ANALGESIA Fentanyl 50 mcg 02/24/20 09:52 03/01/20 07:48 Sublimaze IV 50 mcg Q2HR PRN Administration Pain, Moderate (4-6) Hydrophilic Ointment 1 applic 02/13/20 19:41 Vaseline Lip Therapy TP Q2HR PRN Dry Lips Sodium Chloride 100 mls @ 999 mls/hr 02/22/20 12:30 Nacl 0.9% IV FABIOLA PRN Hypotension Insulin Glargine 25 units 02/29/20 10:00 02/29/20 21:34 Lantus SUB-Q 25 units BID NADER Administration Insulin Human Lispro 0 unit 02/19/20 18:00 03/01/20 06:02 Humalog SUB-Q 3 unit Q6HR NADER Administration Protocol Labetalol HCl 20 mg 02/13/20 18:00 02/29/20 00:40 Labetalol IV 20 mg Q4H PRN Administration SBP >150 Metoprolol Tartrate 2.5 mg 02/13/20 18:00 02/27/20 02:34 Metoprolol IV 2.5 mg Q6HR PRN Administration HR >130 Metoprolol Tartrate 50 mg 02/26/20 11:00 03/01/20 03:33 Metoprolol PO 50 mg Q8H NADER Administration Multi-Ingred Cream/Lotion/Oil/Oint 1 applic 02/13/20 19:41 Artificial Tears Ophth Oint OU Q4HR PRN Dry Eye(s) Sertraline HCl 50 mg 02/23/20 10:00 02/29/20 09:48 Zoloft PO 50 mg QDAY NADER Administration Simple Syrup 15 ml 02/20/20 10:28 Simple Syrup FEEDTUBE PRN PRN Hypoglycemia Simple Syrup 30 ml 02/20/20 10:28 Simple Syrup FEEDTUBE PRN PRN Hypoglycemia Sodium Bicarbonate 325 mg 02/20/20 10:28 Sodium Bicarbonate FEEDTUBE PRN PRN For Clogged Feeding Tube Sodium Chloride 10 ml 02/11/20 22:00 02/29/20 21:35 Sodium Chloride Flush Syringe 10 Ml IV 10 ml BID NADER Administration Sodium Chloride 10 ml 02/11/20 19:01 02/15/20 22:43 Sodium Chloride Flush Syringe 10 Ml IV 10 ml PRN PRN Administration LINE FLUSH
--- NOTE | 2020-03-01 10:22 | Progress Note ---
Assessment and Plan Assessment and plan: --Febrile illness; afebrile now secondary to sepsis,/gram-positive bacteremia --Gram-positive cocci bacteremia; staph epidermidis Evaluated by ID recommend removal or exchange of PICC line and hemodialysis access, Dialysis access removed, will request removal of PICC line, possible midline as needed follow repeat cultures . Continue vancomycin renally dosed --Uncontrolled diabetes Mellitus type 2: Slightly improved Increase Lantus 25 units subcu twice daily Accucheks and SSC, --Acute hypoxic resp failure: On ventilatory support unable to wean Wean as tolerated and extubate, pulmonary critical following --Anemia; requiring multiple units of PRBC, total 5 units transfusion Hb low stable, monitor H&H and transfuse additional PRBC as needed --Atrial fibrillation; rate controlled continue metoprolol and amiodarone Chronic anticoagulation Eliquis started, monitor for any bleeding --Sepsis: due to ischemic bowel. Completed antibiotics, ID surgery following --Peritonitis :secondary to ischemia/gangrene of Small bowel and Cecum. s/p Exploratory laparotomy, extensive small bowel resection, partial colon resection, placement of abthera vac on 02/13/2020. S/p exploratory laparotomy, enterocolonic anastamosis, closure of abdomen, application of wound vac on 02/15 --UTI : Completed antibiotics per ID. --C. difficile colitis. [Positive C. difficile test] contact isolation,s/p oral vancomycin --Diarrhea: resolved prior to presentation, doubt C diff, likely from ischemic bowel. --Presumed infected renal cyst. ID following --Hyponatremia; closely monitor electrolytes, mild improvement, resolved --LITZY on CKD: Renally adjust antibiotics, hemodialysis as needed nephrology fol robinson --Severe protein calorie malnutrition; nutrition supplements, Supportive care --Right saphenous vein DVT.s/p Anticoagulation No anticoagulation due to severe anemia, closely monitor 02/18/2020. Patient still with oral ETT on mechanical ventilation. Patient currently with PSVT trials, FiO2 30% pressure support 12 and PEEP 6. Continue to wean as tolerated. Consider extubation today. However, chest x-ray today reveals developing right pleural effusion. Continue wound care per wound team. Continue incisional wound VAC. Continue strict n.p.o. and NGT to low intermittent suction. Continue IV antibiotics per ID 02/19/2020. Patient currently with AC mode ventilation rate 16, tidal volume 450, FiO2 30%, PEEP 6. Continue to wean per protocol and pulmonary recommendations. Patient failed PSV secondary to tachypnea today. Continue wound care per wound team. Continue incisional wound VAC. Continue strict n.p.o. and NGT to low intermittent suction. Continue IV antibiotics per ID. Creatinine stable today at 5.1/5.2 and remains non-oliguric; no indication for renal replacement therapy emergently per nephrology. Nephrology to administer 100 mg of IV Lasix today to further promote diuresis and help with metabolic acidosis. Remains at high risk for needing renal replacement therapy 02/20/2020. Patient currently with AC mode ventilation rate 16, tidal volume 450, FiO2 30%, PEEP 6. Continue to wean per protocol and pulmonary recommendations. Patient failed PSV trials. Patient with right lower extremity DVT. Continue anticoagulation which patient is currently on. Patient also with C. difficile colitis/C. difficile positive. We will start p.o. vancomycin. Ac [place] kidney injury on CKD continues to worsen. Therefore, patient will likely need hemodialysis. Defer to nephrology. 02/21/2020. Patient remains on mechanical ventilation AC mode, rate 16, tidal vo lume 450, FiO2 30%. Continue weaning per protocol. 2 units PRBCs ordered stat for severe anemia. Follow-up CBC posttransfusion. Patient currently on anticoagulation for right lower extremity DVT. Continue wound care. BG elevated in the 300s. We will start Lantus 10 units at bedtime. 02/22/2020. Patient remains on mechanical ventilation AC mode rate 16, tidal volume 450 and FiO2 30%. Continue PSV trials urine culture found to be negative. Continue p.o. vancomycin for C. difficile. Continue cefepime, Flagyl and fluconazole for sepsis/peritonitis. Blood cultures thus far negative. Hunter benjaimn s/p PRBCs for severe anemia. Hemoglobin stable at 7.4. Follow-up CBC in a.m. Patient currently on anticoagulation for right lower extremity DVT. 02/23/20. Anticoagulation for A. fib currently on hold due to anemia. Patient is s/p PRBCs. We will follow-up H&H. Continue to feed via NG tube and advance as tolerated. Continue TPN until patient tolerating tube feeding at goal. Continue wound VAC and monitor drainage. With regards her renal function, LITZY on CKD 3--with ATN, hemodialysis per nephrology. S/p IV Lasix 100mg yesterday with ~1L urine output; will administer another high dose IV lasix bolus on non- HD days to encourage ongoing volume removal and minimize HD UF needs. Continue antibiotics per ID. Leukocytosis likely secondary to UTI. CT C/A/P 02/19/20 - post operative changes of right colon. Anastamosis is intact. Generalized edema of abdominal wall. Urine and blood cultures were found to be negative. 02/24/20; on vent PSV, CPAP mode, wean as tolerated and extubate, transition TPN to full dose tube feeding, no HD today 02/25/20: Worsening leukocytosis, multifactorial secondary to UTI, C. difficile colitis On oral vancomycin, ID following, 02/26/20; patient is febrile, has gram-positive cocci bacteremia, continue current antibiotics, ID following 02/27/20: Patient has persistent fevers, continue empiric antibiotics follow cultures 02/28/20: Blood sugars are uncontrolled as insulin was held, add Lantus 10 units subcu twice a day, afebrile this morning 02/29/20:Staph epidermidis 2 out of 2,ID recommend removal or exchange of PICC and HD access Blood sugars moderate control, increase Lantus to 25 units twice a day closely monitor 02/28/20: Wean as tolerated and extubate, clinically no change, afebrile 03/01/20: Hemoglobin dropped to 5.9, transfused 2 units of PRBC, closely monitor The high probability of a clinically significant, sudden or life threatening deterioration of the [respiratory] system(s) required my full and direct attention, intervention and personal management. The aggregate critical care time was [33] minutes. This time is in addition to time spent performing reported procedures but includes the following: [x] Data Review and interpretation [x] Patient assessment and monitoring of vital signs [x] Documentation [x] Medication orders and management History Interval history: Patient seen and examined at the bedside Patient's chart and medications reviewed Orally intubated on vent More alert and awake today Not in acute distress However hemoglobin dropped to 5.9 No evidence of external bleeding Vital signs reviewed Hospitalist Physical - Constitutional Vitals: Temp Pulse Resp BP Pulse Ox 98.5 F 94 H 26 H 153/80 99 03/01/20 08:00 03/01/20 09:30 03/01/20 09:30 03/01/20 09:30 03/01/20 09:30 General appearance: Present: no acute distress, well-nourished, obese, other (Intubated, on vent) - EENT Eyes: Present: PERRL, EOM intact - Neck Neck: Present: supple, normal ROM - Respiratory Respiratory effort: normal Respiratory: bilateral: diminished, rhonchi, negative: rales, wheezing - Cardiovascular Rhythm: regular Heart Sounds: Present: S1 & S2 - Extremities Extremities: no ischemia, No edema - Abdominal General gastrointestinal: soft, non-tender, non-distended, normal bowel sounds - Integumentary Integumentary: Present: clear, warm - Psychiatric Psychiatric: cooperative, other (Debated on vent) - Neurologic Neurologic: moves all extremities (Intubated on vent) HEART Score - HEART Score Troponin: Troponin T < 0.010 ng/mL (0.00-0.029) 02/11/20 15:27 Results - Labs CBC & Chem 7: 03/01/20 10:00 03/01/20 10:00 Labs: Laboratory Last Values WBC 15.1 K/mm3 (4.5-11.0) H 02/28/20 09:25 RBC 2.37 M/mm3 (3.65-5.03) L 02/28/20 09:25 Hgb 7.3 gm/dl (10.1-14.3) L 02/28/20 09:25 Hct 22.6 % (30.3-42.9) L 02/28/20 09:25 MCV 95 fl (79-97) 02/28/20 09:25 MCH 31 pg (28-32) 02/28/20 09:25 MCHC 32 % (30-34) 02/28/20 09:25 RDW 16.6 % (13.2-15.2) H 02/28/20 09:25 Plt Count 222 K/mm3 (140-440) 02/28/20 09:25 Lymph % (Auto) 7.8 % (13.4-35.0) L 02/26/20 05:00 Brooke % (Auto) 8.5 % (0.0-7.3) H 02/26/20 05:00 Eos % (Auto) 0.2 % (0.0-4.3) 02/26/20 05:00 Baso % (Auto) 0.4 % (0.0-1.8) 02/26/20 05:00 Lymph # 1.3 K/mm3 (1.2-5.4) 02/26/20 05:00 Brooke # 1.4 K/mm3 (0.0-0.8) H 02/26/20 05:00 Eos # 0.0 K/mm3 (0.0-0.4) 02/26/20 05:00 Baso # 0.1 K/mm3 (0.0-0.1) 02/26/20 05:00 Add Manual Diff Complete 02/25/20 05:25 Total Counted 100 02/25/20 05:25 Seg Neutrophils % 83.1 % (40.0-70.0) H 02/26/20 05:00 Seg Neuts % (Manual) 87.0 % (40.0-70.0) H 02/25/20 05:25 Band Neutrophils % 1.0 % 02/25/20 05:25 Lymphocytes % (Manual) 6.0 % (13.4-35.0) L 02/25/20 05:25 Reactive Lymphs % (Man) 0 % 02/25/20 05:25 Monocytes % (Manual) 6.0 % (0.0-7.3) 02/25/20 05:25 Eosinophils % (Manual) 0 % (0.0-4.3) 02/25/20 05:25 Basophils % (Manual) 0 % (0.0-1.8) 02/25/20 05:25 Metamyelocytes % 0 % 02/25/20 05:25 Myelocytes % 0 % 02/25/20 05:25 Promyelocytes % 0 % 02/25/20 05:25 Blast Cells % 0 % 02/25/20 05:25 Nucleated RBC % Not Reportable 02/25/20 05:25 Seg Neutrophils # 13.5 K/mm3 (1.8-7.7) H 02/26/20 05:00 Seg Neutrophils # Man 22.0 K/mm3 (1.8-7.7) H 02/25/20 05:25 Band Neutrophils # 0.3 K/mm3 02/25/20 05:25 Lymphocytes # (Manual) 1.5 K/mm3 (1.2-5.4) 02/25/20 05:25 Abs React Lymphs (Man) 0.0 K/mm3 02/25/20 05:25 Monocytes # (Manual) 1.5 K/mm3 (0.0-0.8) H 02/25/20 05:25 Eosinophils # (Manual) 0.0 K/mm3 (0.0-0.4) 02/25/20 05:25 Basophils # (Manual) 0.0 K/mm3 (0.0-0.1) 02/25/20 05:25 Metamyelocytes # 0.0 K/mm3 02/25/20 05:25 Myelocytes # 0.0 K/mm3 02/25/20 05:25 Promyelocytes # 0.0 K/mm3 02/25/20 05:25 Blast Cells # 0.0 K/mm3 02/25/20 05:25 WBC Morphology Not Reportable 02/25/20 05:25 Hypersegmented Neuts Not Reportable 02/25/20 05:25 Hyposegmented Neuts Not Reportable 02/25/20 05:25 Hypogranular Neuts Not Reportable 02/25/20 05:25 Smudge Cells Not Reportable 02/25/20 05:25 Toxic Granulation Not Reportable 02/25/20 05:25 Toxic Vacuolation Not Reportable 02/25/20 05:25 Dohle Bodies Not Reportable 02/25/20 05:25 Pelger-Huet Anomaly Not Reportable 02/25/20 05:25 Jyoti Rods Not Reportable 02/25/20 05:25 Platelet Estimate Consistent w auto 02/25/20 05:25 Clumped Platelets Not Reportable 02/25/20 05:25 Plt Clumps, EDTA Not Reportable 02/25/20 05:25 Large Platelets Not Reportable 02/25/20 05:25 Giant Platelets Not Reportable 02/25/20 05:25 Platelet Satelliting Not Reportable 02/25/20 05:25 Plt Morphology Comment Not Reportable 02/25/20 05:25 RBC Morphology Not Reportable 02/25/20 05:25 Dimorphic RBCs Not Reportable 02/25/20 05:25 Polychromasia Few 02/25/20 05:25 Hypochromasia Not Reportable 02/25/20 05:25 Poikilocytosis Not Reportable 02/25/20 05:25 Anisocytosis 1+ 02/25/20 05:25 Microcytosis Not Reportable 02/25/20 05:25 Macrocytosis Not Reportable 02/25/20 05:25 Spherocytes Not Reportable 02/25/20 05:25 Pappenheimer Bodies Not Reportable 02/25/20 05:25 Sickle Cells Not Reportable 02/25/20 05:25 Target Cells Not Reportable 02/25/20 05:25 Tear Drop Cells Not Reportable 02/25/20 05:25 Ovalocytes Not Reportable 02/25/20 05:25 Helmet Cells Not Reportable 02/25/20 05:25 Garcia-[place] Bodies Not Reportable 02/25/20 05:25 Woodman Rings Not Reportable 02/25/20 05:25 Covert Cells Not Reportable 02/25/20 05:25 Bite Cells Not Reportable 02/25/20 05:25 Crenated Cell Not Reportable 02/25/20 05:25 Elliptocytes Not Reportable 02/25/20 05:25 Acanthocytes (Spur) Not Reportable 02/25/20 05:25 Rouleaux Not Reportable 02/25/20 05:25 Hemoglobin C Crystals Not Reportable 02/25/20 05:25 Schistocytes Not Reportable 02/25/20 05:25 Malaria parasites Not Reportable 02/25/20 05:25 Babar Bodies Not Reportable 02/25/20 05:25 Hem Pathologist Commnt No 02/25/20 05:25 PT 16.9 Sec. (12.2-14.9) H 02/13/20 20:10 INR 1.41 (0.87-1.13) H 02/13/20 20:10 APTT 35.3 Sec. (24.2-36.6) 02/13/20 20:10 Heparin Anti-Xa Level 0.15 U.I./ml (0.3-0.7) L 02/23/20 02:55 ABG pH 7.318 pH Units (7.350-7.450) L 02/21/20 04:16 ABG pCO2 42.7 mm Hg 02/21/20 04:16 ABG pO2 100.0 mm Hg (80.0-90.0) H 02/21/20 04:16 ABG HCO3 21.4 mmol/L (20.0-26.0) 02/21/20 04:16 ABG O2 Saturation 97.2 % (95.0-99.0) 02/21/20 04:16 ABG O2 Content 12.3 (0.0-44) 02/21/20 04:16 ABG Base Excess -4.4 mmol/L (-2.0-3.0) L 02/21/20 04:16 ABG Hemoglobin 9.1 gm/dl (12.0-16.0) L 02/21/20 04:16 ABG Carboxyhemoglobin 1.5 % (0.0-5.0) 02/21/20 04:16 ABG Methemoglobin 0.7 % (0.0-1.5) 02/21/20 04:16 Oxyhemoglobin 95.2 % (95.0-99.0) 02/21/20 04:16 FiO2 30 % 02/21/20 04:16 Sodium 137 mmol/L (137-145) 02/28/20 09:25 Potassium 4.9 mmol/L (3.6-5.0) 02/28/20 09:25 Chloride 98.1 mmol/L (98-107) 02/28/20 09:25 Carbon Dioxide 18 mmol/L (22-30) L 02/28/20 09:25 Anion Gap 26 mmol/L 02/28/20 09:25 BUN 105 mg/dL (7-17) H 02/28/20 09:25 Creatinine 5.9 mg/dL (0.7-1.2) H 02/28/20 09:25 Estimated GFR 7 ml/min 02/28/20 09:25 BUN/Creatinine Ratio 18 % 02/28/20 09:25 Glucose 370 mg/dL (65-100) H 02/28/20 09:25 POC Glucose 195 (70-105) H 03/01/20 05:59 Ketones Quantitative Negative (Negative) 02/13/20 14:51 Lactic Acid 0.70 mmol/L (0.7-2.0) 02/14/20 Unknown Calcium 8.2 mg/dL (8.4-10.2) L 02/28/20 09:25 Phosphorus 4.90 mg/dL (2.5-4.5) H 02/24/20 05:40 Magnesium 2.20 mg/dL (1.7-2.3) 02/25/20 05:25 Total Bilirubin 0.30 mg/dL (0.1-1.2) 02/25/20 05:25 Direct Bilirubin < 0.2 mg/dL (0-0.2) 02/25/20 05:25 Indirect Bilirubin 0.1 mg/dL 02/25/20 05:25 AST 20 units/L (5-40) 02/25/20 05:25 ALT 17 units/L (7-56) 02/25/20 05:25 Alkaline Phosphatase 76 units/L (35-129) 02/25/20 05:25 Troponin T < 0.010 ng/mL (0.00-0.029) 02/11/20 15:27 Total Protein 5.0 g/dL (6.3-8.2) L 02/25/20 05:25 Albumin 2.3 g/dL (3.9-5) L 02/25/20 05:25 Albumin/Globulin Ratio 0.9 % 02/25/20 05:25 Triglycerides 238 mg/dL (2-149) H 02/17/20 03:45 Lipase 60 units/L (13-60) 02/13/20 14:51 Urine Color Yellow (Yellow) 02/19/20 14:00 Urine Turbidity Cloudy (Clear) 02/19/20 14:00 Urine pH 5.0 (5.0-7.0) 02/19/20 14:00 Ur Specific [place] 1.007 (1.003-1.030) 02/19/20 14:00 Urine Protein 100 mg/dl mg/dL (Negative) 02/19/20 14:00 Urine Glucose (UA) >=500 mg/dL (Negative) 02/19/20 14:00 Urine Ketones Tr mg/dL (Negative) 02/19/20 14:00 Urine Blood Lg (Negative) 02/19/20 14:00 Urine Nitrite Neg (Negative) 02/19/20 14:00 Urine Bilirubin Neg (Negative) 02/19/20 14:00 Urine Urobilinogen < 2.0 mg/dL (<2.0) 02/19/20 14:00 Ur Leukocyte Esterase Lg (Negative) 02/19/20 14:00 Urine WBC (Auto) 166.0 /HPF (0.0-6.0) H 02/19/20 14:00 Urine RBC (Auto) 20.0 /HPF (0.0-6.0) 02/19/20 14:00 U Epithel Cells (Auto) 2.0 /HPF (0-13.0) 02/19/20 14:00 Urine Bacteria (Auto) 1+ /HPF (Negative) 02/19/20 14:00 Urine WBC Clumps 3+ /HPF 02/19/20 14:00 Urine Mucus Few /HPF 02/19/20 14:00 Urine Yeast (Budding) 3+ /HPF 02/19/20 14:00 Urine Eosinophils None seen (None Seen) 02/12/20 Unknown Urine Creatinine 35.3 mg/dL (0.1-20.0) H 02/12/20 Unknown Protein/Creatinin Ratio 22.55 02/12/20 Unknown Urine Total Protein 796 mg/dL (5-11.8) H 02/12/20 Unknown Random Vancomycin 11.3 ug/mL (0-40.0) 02/28/20 09:25 C. difficile Tox (PCR) Positive (Negative) 02/19/20 12:46 Coronavirus (PCR) Negative (Negative) 02/25/20 08:50 Hepatitis A IgM Ab Non-reactive (NonReactive) 02/21/20 10:30 Hep Bs Antigen Non-reactive (Negative) 02/21/20 10:30 Hep B Core IgM Ab Non-reactive (NonReactive) 02/21/20 10:30 Hepatitis C Antibody Non-reactive (NonReactive) 02/21/20 10:30 Blood Type O NEGATIVE 02/21/20 06:00 Antibody Screen Negative 02/21/20 06:00 Crossmatch See Detail 02/21/20 06:00 Microbiology: Microbiology 02/27/20 19:25 Peripheral/Venous Blood Culture - Preliminary NO GROWTH AFTER 48 HOURS 02/27/20 18:50 Peripheral/Venous Blood Culture - Preliminary NO GROWTH AFTER 48 HOURS - Diagnostic Impressions Diagnostic Impressions: Echocardiogram 02/13/20 18:02 Transthoracic Echocardiogram Indication: Afib BP: 101/70 HR: 128 Findings Left Ventricle: The left ventricular chamber size is normal. Mild to moderate concentric left ventricular hypertrophy is observed. Global left ventricular wall motion and contractility are within normal limits. Global left ventricular systolic function is normal. The estimated ejection fraction is 60-65%. Left Atrium: The left atrium is mild to moderately dilated. Right Ventricle: The right ventricular cavity size is normal. The right ventricular global systolic function is normal. Right Atrium: The right atrium appears normal. The interatrial septum appears normal. Aortic Valve: The aortic valve structure is normal. The aortic valve leaflets are mildly thickened. There is no evidence of aortic regurgitation. There is no evidence of aortic stenosis. Mitral Valve: The mitral valve leaflets appear normal. There is no evidence of mitral regurgitation. There is no evidence of mitral stenosis. Tricuspid Valve: The tricuspid valve leaflets are normal. There is mild to moderate tricuspid regurgitation. The right ventricular systolic pressure is calculated at 39 mmHg. There is evidence of pulmonary hypertension. There is no tricuspid stenosis. Pulmonic Valve: The pulmonic valve appears normal. There is no evidence of pulmonic regurgitation. There is no pulmonic stenosis. Pericardium: A pericardial effusion is visualized. There is a minimial pericardial effusion. A left pleural effusion is present. There is a moderate pleural effusion. Aorta: There is no dilatation of the ascending aorta. There is no dilatation of the aortic arch. There is no dilatation of the descending thoracic aorta. There is no dilatation of the aortic root. Venous: The inferior vena cava appears normal in size. Measurements Chambers 2D Name Value Normal Range IVSd (2D) 1.34 cm (0.6 - 1.1) LVPWd (2D) 1.35 cm (0.6 - 1.1) LVIDd (2D) 4.72 cm (3.7 - 5.6) LVIDs (2D) 3.28 cm (2 - 3.8) LV FS (2D) 30.38 % - EF Teichholz (2D) 57.75 % - Ao root diameter (2D) 3.02 cm (2 - 3.7) Volumes/Mass Name Value Normal Range LA ESV SP 4CH (A/L) 55.87 ml - LA ESV SP 2CH (A/L) 67.65 ml - LA ESV BP (A/L) 63.67 ml - LA ESV SP 4CH (MOD) 54.25 ml - LA ESV SP 2CH (MOD) 63.2 ml - LA ESV BP (MOD) 60.49 ml - LA ESV BP (MOD) index 34.18 ml/m2 - LV EDV SP 4CH (MOD) 70.96 ml - LV ESV SP 4CH (MOD) 23.49 ml - EF SP 4CH (MOD) 66.89 % - LV EDV SP 2CH (MOD) 61.41 ml - LV ESV SP 2CH (MOD) 27.43 ml - EF SP 2CH (MOD) 55.33 % - LV EDV BP 69.85 ml - LV ESV BP 26.44 ml - BP EF (MOD) 62.14 % - Aortic Valve Name Value Normal Range AV Vmax 1.29 m/sec - AV VTI 18.56 cm - AV peak gradient 6.69 mmHg - AV mean gradient 3.39 mmHg - LVOT diameter 1.95 cm - LVOT Vmax 1.14 m/sec - LVOT VTI 16.24 cm - LVOT peak gradient 5.21 mmHg - LVOT mean gradient 2.04 mmHg - SV LVOT 48.71 ml - TABATHA (continuity Vmax) 2.65 cm2 - TABATHA (continuity VTI) 2.62 cm2 - Ascending Ao 2.96 cm - Tricuspid Valve Name Value Normal Range TR Vmax 2.47 m/sec - TR peak gradient 24 mmHg - RAP 15 mmHg - RVSP 39 mmHg - Pulmonic Valve/Qp:Qs Name Value Normal Range PV Vmax 1.15 m/sec - PV peak gradient 5.33 mmHg - PV acceleration time 68.51 msec - Acevedo/IV: Voiding Method Indwelling Catheter IV Catheter Type [Right Upper Mid-line arm] IV Catheter Type [Right VAS Cath Internal Jugular] IV Catheter Type [Left Upper PICC Line arm] IV Catheter Type [Right INT / Saline Lock Antecubital] IV Catheter Type [Right Peripheral IV Forearm] IV Catheter Type [Left Forearm INT / Saline Lock ] IV Catheter Type [Right Hand] Peripheral IV Active Medications - Current Medications Current Medications: Generic Name Dose Route Start Last Admin Trade Name Freq PRN Reason Stop Dose Admin Acetaminophen 650 mg 02/11/20 19:01 02/27/20 12:00 Tylenol PO 650 mg Q4H PRN Administration Pain MILD(1-3)/Fever >100.5/ADAMS Amiodarone HCl 200 mg 02/24/20 10:00 02/29/20 09:48 Cordarone PO 200 mg QDAY NADER Administration Lipase/Protease/Amylase 1 each 02/20/20 10:28 Janee Daugherty 10,500 Unit FEEDTUBE PRN PRN For Clogged Feeding Tube Apixaban 10 mg 02/26/20 12:00 02/29/20 21:35 Eliquis PO 03/03/20 22:01 10 mg Q12HR NADER Administration Protocol Apixaban 5 mg 03/04/20 10:00 Eliquis PO Q12HR NADER Protocol Dextrose 50 ml 02/19/20 14:58 D50w (25gm) Syringe IV Q30MIN PRN Hypoglycemia Protocol Famotidine 20 mg 02/24/20 10:00 02/29/20 09:47 Pepcid PO 20 mg DAILY NADER Administration Fentanyl 50 mcg 02/19/20 15:30 02/28/20 21:39 Sublimaze IV 50 mcg Q10MIN PRN Administration ANALGESIA Fentanyl 50 mcg 02/24/20 09:52 03/01/20 07:48 Sublimaze IV 50 mcg Q2HR PRN Administration Pain, Moderate (4-6) Hydrophilic Ointment 1 applic 02/13/20 19:41 Vaseline Lip Therapy TP Q2HR PRN Dry Lips Sodium Chloride 100 mls @ 999 mls/hr 02/22/20 12:30 Nacl 0.9% IV FABIOLA PRN Hypotension Insulin Glargine 25 units 02/29/20 10:00 02/29/20 21:34 Lantus SUB-Q 25 units BID NADER Administration Insulin Human Lispro 0 unit 02/19/20 18:00 03/01/20 06:02 Humalog SUB-Q 3 unit Q6HR NADER Administration Protocol Labetalol HCl 20 mg 02/13/20 18:00 02/29/20 00:40 Labetalol IV 20 mg Q4H PRN Administration SBP >150 Metoprolol Tartrate 2.5 mg 02/13/20 18:00 02/27/20 02:34 Metoprolol IV 2.5 mg Q6HR PRN Administration HR >130 Metoprolol Tartrate 50 mg 02/26/20 11:00 03/01/20 03:33 Metoprolol PO 50 mg Q8H NADER Administration Multi-Ingred Cream/Lotion/Oil/Oint 1 applic 02/13/20 19:41 Artificial Tears Ophth Oint OU Q4HR PRN Dry Eye(s) Sertraline HCl 50 mg 02/23/20 10:00 02/29/20 09:48 Zoloft PO 50 mg QDAY NADER Administration Simple Syrup 15 ml 02/20/20 10:28 Simple Syrup FEEDTUBE PRN PRN Hypoglycemia Simple Syrup 30 ml 02/20/20 10:28 Simple Syrup FEEDTUBE PRN PRN Hypoglycemia Sodium Bicarbonate 325 mg 02/20/20 10:28 Sodium Bicarbonate FEEDTUBE PRN PRN For Clogged Feeding Tube Sodium Chloride 10 ml 02/11/20 22:00 02/29/20 21:35 Sodium Chloride Flush Syringe 10 Ml IV 10 ml BID NADER Administration Sodium Chloride 10 ml 02/11/20 19:01 02/15/20 22:43 Sodium Chloride Flush Syringe 10 Ml IV 10 ml PRN PRN Administration LINE FLUSH Nutrition/Malnutrition Assess - Dietary Evaluation Nutrition/Malnutrition Findings: Nutrition Notes Start: 02/14/20 09:49 Freq: Status: Active Protocol: Document 02/27/20 11:30 LM (Rec: 02/27/20 11:33 LM [email or web address]) Nutrition Notes Initial or Follow up Reassessment Current Diagnosis Acute Kidney Injury,Decubitus( Pressure Ulcer),Diabetes, Hypertension,Hyperlipidemia Other Pertinent Diagnosis ischemic bowel with gangrene s /p exp lap, Current Diet Vital 1.2 at 50ml/hr Labs/Tests Reviewed Pertinent Medications Reviewed Height 5 ft 5 in Weight 96.2 kg [place] Body Weight (kg) 56.81 BMI 35.2 Weight change and time frame Wt change noted Weight Status Obese Subjective/Other Information Vital running at goal rate. Percent of energy/protein needs met: 100%/100% Burn Absent Trauma Absent Current % PO Negligible Minimum of two criteria No #2 Nutrition Diagnosis Inadequate oral intake Diagnosis Progress(for reassessment Continues documentation) Is patient on ventilator? Yes Is Patient Ambulatory and/or Out of Bed No REE-([facility]-confined to bed) [phone] Kcal/Kg value to use for calculation 15 Approximate Energy Requirements Using 1443 kcal/Kg Calculation Used for Recommendations Kcal/kg Additional Notes Pro needs 1.2-2g/k-140g/ day Fluid needs 1ml/kcal Nutrition Intervention Change Diet Order: Continue TF Nutrition Support: Vital 1.2 at 50ml/hr (goal rate) Flush with 100ml q4h Kcal 1,440 Protein (gm) 90 Fluid (mL) 966 Goal #1 Meet at least 75% of energy and protein needs Anticipated Discharge Needs: Unable to identify at this time Follow-Up By: 03/02/20 Additional Comments F/U for TF tolerance
[2020-03-01] MEDS: AMIODARONE 200 MG TAB PO SCH (10:23)
[2020-03-01] MEDS: SERTRALINE 50 MG TAB PO SCH (10:23)
[2020-03-01] MEDS: APIXABAN 5 MG TAB PO SCH ×2 (10:23→22:42)
[2020-03-01] MEDS: INSULIN GLARGINE 100 UNITS/ML SUB-Q SCH ×2 (10:23→23:34)
[2020-03-01] MEDS: FAMOTIDINE 20 MG TAB PO SCH (10:23)
[2020-03-01 10:51] LABS: Basophils # (Auto) 0.1 K/mm3 (0.0-0.1); Basophils % (Auto) 0.6 % (0.0-1.8); Eosinophils # (Auto) 0.2 K/mm3 (0.0-0.4); Lymphocytes # (Auto) 0.9 K/mm3 (1.2-5.4); Lymphocytes % (Auto) 5.2 % (13.4-35.0); Mean Corpuscular HGB Conc 31 % (30-34); Mean Corpuscular Volume 99 fl (79-97); Monocytes # (Auto) 1.1 K/mm3 (0.0-0.8); Monocytes % (Auto) 6.7 % (0.0-7.3); Platelet Count 324 K/mm3 (140-440); Red Blood Count 1.91 M/mm3 (3.65-5.03); Red Cell Distribution Width 17.2 % (13.2-15.2)
[2020-03-01 10:54] LABS: Hematocrit 18.9 % (30.3-42.9); Hemoglobin 5.9 gm/dl (10.1-14.3)
[2020-03-01 11:33] LABS: Albumin 2.3 g/dL (3.9-5)
--- NOTE | 2020-03-01 11:48 | Progress Note ---
Assessment and Plan - Patient Problems (1) Atrial fibrillation Current Visit: Yes Status: Acute Plan to address problem: Paroxysmal atrial fibrillation, will continue medical therapy as previously outlined. Subjective Date of service: 03/01/20 Principal diagnosis: Ischemic Bowel Interval history: Patient is awake and alert, but remains on the vent. Heart rate is low 100s, atrial fibrillation. Systolic blood pressure is 126. Objective Vital Signs Temp Pulse Pulse Resp BP Pulse Ox 03/01/20 09:30 94 H 26 H 153/80 99 03/01/20 09:00 99 H 19 167/82 98 03/01/20 08:52 88 160/86 99 03/01/20 08:48 21 03/01/20 08:30 111 H 19 157/80 99 03/01/20 08:00 98.5 F 101 H 84 17 157/89 99 03/01/20 07:48 21 03/01/20 07:30 95 H 25 H 172/91 100 03/01/20 07:00 109 H 24 167/90 100 03/01/20 06:30 82 25 H 152/79 100 03/01/20 06:00 83 20 161/81 100 03/01/20 05:30 95 H 25 H 120/69 100 03/01/20 05:00 92 H 22 120/69 99 03/01/20 04:47 92 H 120/69 100 03/01/20 04:30 74 20 132/61 100 03/01/20 04:00 99 H 118 H 21 125/61 99 03/01/20 03:33 98 H 125/59 03/01/20 03:30 94 H 20 143/62 100 03/01/20 03:03 98.9 F 03/01/20 03:00 103 H 25 H 147/72 100 03/01/20 02:30 111 H 23 149/66 100 03/01/20 02:00 107 H 26 H 136/88 100 03/01/20 01:30 98 H 26 H 94/64 100 03/01/20 01:00 92 H 19 112/54 100 03/01/20 00:30 96 H 21 103/47 100 03/01/20 00:00 105 H 132 H 23 147/72 100 02/29/20 23:43 98.6 F 02/29/20 23:30 118 H 26 H 146/75 100 02/29/20 23:06 119 H 27 H 159/108 98 02/29/20 23:00 128 H 26 H 154/135 100 02/29/20 22:30 116 H 28 H 133/77 99 02/29/20 22:00 107 H 24 111/75 99 02/29/20 21:30 95 H 23 137/69 100 02/29/20 21:21 71 137/69 100 02/29/20 21:00 95 H 27 H 156/74 100 02/29/20 20:30 93 H 27 H 152/71 100 02/29/20 20:00 94 H 118 H 27 H 151/78 100 02/29/20 19:56 98.9 F 02/29/20 19:30 115 H 27 H 118/70 100 02/29/20 19:12 84 113/70 02/29/20 19:00 95 H 19 113/70 100 02/29/20 18:59 18 02/29/20 18:30 96 H 22 119/71 100 02/29/20 18:00 96 H 19 119/71 99 02/29/20 17:59 21 02/29/20 17:30 117/58 97 02/29/20 17:06 126 H 160/97 99 02/29/20 17:00 133 H 30 H 161/102 98 02/29/20 16:30 126 H 33 H 154/97 98 02/29/20 16:00 98.1 F 127 H 132 H 33 H 165/91 98 02/29/20 15:30 116 H 32 H 157/85 97 02/29/20 15:00 123 H 30 H 167/101 99 02/29/20 14:30 121 H 31 H 166/104 99 02/29/20 14:00 105 H 31 H 161/73 100 02/29/20 13:30 100 H 31 H 150/88 100 02/29/20 13:00 113 H 33 H 157/97 99 02/29/20 12:30 121 H 32 H 150/81 100 02/29/20 12:22 117 H 150/81 02/29/20 12:00 97.6 F 118 H 118 H 18 128/73 100 02/29/20 11:56 106 H 28 H 128/73 100 - Physical Examination General: Other (Intubated, on the vent) HEENT: Positive: PERRL Neck: Positive: neck supple, trachea midline. Negative: JVD/HJR Cardiac: Positive: Irregularly Regular Lungs: Positive: Decreased Breath Sounds Neuro: Positive: Other (Intubated, on the vent) Abdomen: Positive: Distended Skin: Positive: Clear Extremities: Absent: edema - Labs and Meds Cardiac Enzymes 03/01/20 Range/Units 10:00 AST 28 (5-40) units/L CBC 03/01/20 Range/Units 10:00 WBC 17.0 H (4.5-11.0) K/mm3 RBC 1.91 L (3.65-5.03) M/mm3 Hgb 5.9 L* (10.1-14.3) gm/dl Hct 18.9 L* (30.3-42.9) % Plt Count 324 (140-440) K/mm3 Lymph # 0.9 L (1.2-5.4) K/mm3 Faulk # 1.1 H (0.0-0.8) K/mm3 Eos # 0.2 (0.0-0.4) K/mm3 Baso # 0.1 (0.0-0.1) K/mm3 Comprehensive Metabolic Panel 03/01/20 03/01/20 Range/Units 10:00 10:00 Sodium 144 D 147 H (137-145) mmol/L Potassium 3.8 D 3.7 (3.6-5.0) mmol/L Chloride 105.6 107.7 H (98-107) mmol/L Carbon Dioxide 14 L 14 L (22-30) mmol/L BUN 134 H 133 H (7-17) mg/dL Creatinine 7.7 H 7.3 H (0.7-1.2) mg/dL Glucose 139 H 147 H (65-100) mg/dL Calcium 8.0 L 8.0 L (8.4-10.2) mg/dL AST 28 (5-40) units/L ALT 29 (7-56) units/L Alkaline Phosphatase 56 (35-129) units/L Total Protein 4.7 L (6.3-8.2) g/dL Albumin 2.3 L (3.9-5) g/dL
[2020-03-01] MEDS ORDERED: SODIUM CHLORIDE 0.9% 500 ML 500 ML IV SCH (13:27)
--- NOTE | 2020-03-01 13:32 | Event Note ---
Date: 03/01/20 Patient drop in H&H hemoglobin 5.9 No evidence of external bleeding Type and cross Transfuse 1 Unit PRBC stat Monitor H&H and transfuse additional as needed
--- NOTE | 2020-03-01 13:41 | Progress Note ---
Assessment and Plan - Patient Problems (1) Ischemic necrosis of small bowel Current Visit: Yes Status: Acute Plan to address problem: Assessment and Plan 74-year-old female status post 1. Exploratory laparotomy, enterocolonic anastamosis, closure of abdomen, application of wound vac, POD 14 2. Exploratory laparotomy, extensive small bowel resection, partial colon resection, placement of abthera vac, placement of right radial arterial line, 02/13/20 1. bowel ischemia with gangrene 2. sepsis 3. LITZY 4. Afib with RVR 5. Tobacco dependence 6. Venous duplex - L superficial femoral vein nonocclusive thrombus 7. Cdiff + 8. Protein calorie malnutrition CXR 02/20/20 - no residual disease CT C/A/P 02/19/20 - post operative changes of right colon. Anastamosis is intact. Generalized edema of abdominal wall. Pt currently hemodynamically stable. Tolerating TF at goal, having bowel function. Abdominal exam is benign. Afebrile x 3days. Anemic Plan: 1. neuro - Continue as needed pain control - fent gtt off, ativan and dilaudid prn ordered. Mental status much improved today 2. CV - cardiology on board for Afib. monitor H/H -> trended down to 5.9 without any obvious source -> 1PRBC ordered per 1' service. On Eliquis. 3. Resp - vent management per ICU team 4. GI - Cont TF via NGT. Hold if residual >250cc. Continue incisional wound VAC . GI ppx 5. - strict I/Os. Nephrology on board, HD started. Patient nonoliguric. 6. ID - continue abx per ID. Blcx 02/23 - staph epidemidis. ?contaminant. Repeat Blcx pending. HD catheter removed. PICC line unable to be removed due to edema and inability to obtain alternative PIV. COVID negative 7. Endo - strict glucose control 8. Musc - turning q2 as per protocol, skin breakdown precautions, SCDs. 9. FEN - Cont TF@goal, Replace lytes as needed. LTACH planning in progress. Nurse Informatics Educator notes reviewed and recs appreciated. Discussed with Dr. Cervantes. Prognosis is guarded Thank you, please call with questions. Subjective Date of service: 03/01/20 Narrative: Pt seen and examined. Awake on vent. Denies pain. Tolerating TF and having BMs. No fevers Objective Vital Signs - 12hr 03/01/20 03/01/20 03/01/20 02:00 02:30 03:00 Temperature Pulse Rate 107 H 111 H 103 H Pulse Rate [ From Monitor] Respiratory 26 H 23 25 H Rate Respiratory Rate [Abdomen] Blood Pressure 136/88 149/66 147/72 O2 Sat by Pulse 100 100 100 Oximetry 03/01/20 03/01/20 03/01/20 03:03 03:30 03:33 Temperature 98.9 F Pulse Rate 94 H 98 H Pulse Rate [ From Monitor] Respiratory 20 Rate Respiratory Rate [Abdomen] Blood Pressure 143/62 125/59 O2 Sat by Pulse 100 Oximetry 03/01/20 03/01/20 03/01/20 04:00 04:30 04:47 Temperature Pulse Rate 99 H 74 92 H Pulse Rate [ 118 H From Monitor] Respiratory 21 20 Rate Respiratory Rate [Abdomen] Blood Pressure 125/61 132/61 120/69 O2 Sat by Pulse 99 100 100 Oximetry 03/01/20 03/01/20 03/01/20 05:00 05:30 06:00 Temperature Pulse Rate 92 H 95 H 83 Pulse Rate [ From Monitor] Respiratory 22 25 H 20 Rate Respiratory Rate [Abdomen] Blood Pressure 120/69 120/69 161/81 O2 Sat by Pulse 99 100 100 Oximetry 03/01/20 03/01/20 03/01/20 06:30 07:00 07:30 Temperature Pulse Rate 82 109 H 95 H Pulse Rate [ From Monitor] Respiratory 25 H 24 25 H Rate Respiratory Rate [Abdomen] Blood Pressure 152/79 167/90 172/91 O2 Sat by Pulse 100 100 100 Oximetry 03/01/20 03/01/20 03/01/20 07:48 08:00 08:30 Temperature 98.5 F Pulse Rate 101 H 111 H Pulse Rate [ 84 From Monitor] Respiratory 21 17 19 Rate Respiratory Rate [Abdomen] Blood Pressure 157/89 157/80 O2 Sat by Pulse 99 99 Oximetry 03/01/20 03/01/20 03/01/20 08:48 08:52 09:00 Temperature Pulse Rate 88 99 H Pulse Rate [ From Monitor] Respiratory 21 19 Rate Respiratory Rate [Abdomen] Blood Pressure 160/86 167/82 O2 Sat by Pulse 99 98 Oximetry 03/01/20 03/01/20 03/01/20 09:30 10:00 10:30 Temperature Pulse Rate 94 H 99 H 103 H Pulse Rate [ From Monitor] Respiratory 26 H 25 H 24 Rate Respiratory 27 H Rate [Abdomen] Blood Pressure 153/80 138/75 126/76 O2 Sat by Pulse 99 99 99 Oximetry 03/01/20 03/01/20 03/01/20 11:00 11:30 12:00 Temperature 98.1 F Pulse Rate 92 H 92 H 94 H Pulse Rate [ 102 H From Monitor] Respiratory 25 H 23 27 H Rate Respiratory Rate [Abdomen] Blood Pressure 125/72 128/66 101/55 O2 Sat by Pulse 99 99 99 Oximetry 03/01/20 03/01/20 03/01/20 12:18 12:30 13:00 Temperature Pulse Rate 99 H 90 88 Pulse Rate [ From Monitor] Respiratory 25 H 26 H Rate Respiratory Rate [Abdomen] Blood Pressure 111/71 111/71 150/75 O2 Sat by Pulse 100 100 Oximetry - General physical appearance Narrative Exam: Gen: Intubated on vent, awake. NAD. Following commands. ENT: ETT and NGT in place CV: s1, S2+ Resp: on vent. No wheezes Abd: soft, NT, ND. Incisional wound vac with good seal, no leak. Scant serosang drainage in canister Ext: + edema : corcoran with clear yellow urine Rectal: rectal tube with dark brown stool - Labs 03/01/20 10:00 03/01/20 10:00 Diabetes panel 03/01/20 03/01/20 Range/Units 10:00 10:00 Sodium 144 D 147 H (137-145) mmol/L Potassium 3.8 D 3.7 (3.6-5.0) mmol/L Chloride 105.6 107.7 H (98-107) mmol/L Carbon Dioxide 14 L 14 L (22-30) mmol/L BUN 134 H 133 H (7-17) mg/dL Creatinine 7.7 H 7.3 H (0.7-1.2) mg/dL Glucose 139 H 147 H (65-100) mg/dL Calcium 8.0 L 8.0 L (8.4-10.2) mg/dL AST 28 (5-40) units/L ALT 29 (7-56) units/L Alkaline Phosphatase 56 (35-129) units/L Total Protein 4.7 L (6.3-8.2) g/dL Albumin 2.3 L (3.9-5) g/dL Calcium panel 03/01/20 03/01/20 Range/Units 10:00 10:00 Calcium 8.0 L 8.0 L (8.4-10.2) mg/dL Phosphorus 10.20 H (2.5-4.5) mg/dL Albumin 2.3 L (3.9-5) g/dL Pituitary panel 03/01/20 03/01/20 Range/Units 10:00 10:00 Sodium 144 D 147 H (137-145) mmol/L Potassium 3.8 D 3.7 (3.6-5.0) mmol/L Chloride 105.6 107.7 H (98-107) mmol/L Carbon Dioxide 14 L 14 L (22-30) mmol/L BUN 134 H 133 H (7-17) mg/dL Creatinine 7.7 H 7.3 H (0.7-1.2) mg/dL Glucose 139 H 147 H (65-100) mg/dL Calcium 8.0 L 8.0 L (8.4-10.2) mg/dL Adrenal panel 03/01/20 03/01/20 Range/Units 10:00 10:00 Sodium 144 D 147 H (137-145) mmol/L Potassium 3.8 D 3.7 (3.6-5.0) mmol/L Chloride 105.6 107.7 H (98-107) mmol/L Carbon Dioxide 14 L 14 L (22-30) mmol/L BUN 134 H 133 H (7-17) mg/dL Creatinine 7.7 H 7.3 H (0.7-1.2) mg/dL Glucose 139 H 147 H (65-100) mg/dL Calcium 8.0 L 8.0 L (8.4-10.2) mg/dL Total Bilirubin 0.30 (0.1-1.2) mg/dL AST 28 (5-40) units/L ALT 29 (7-56) units/L Alkaline Phosphatase 56 (35-129) units/L Total Protein 4.7 L (6.3-8.2) g/dL Albumin 2.3 L (3.9-5) g/dL
--- NOTE | 2020-03-01 14:43 | Operative Report ---
Operative Report Operative Report: Exam: Ultrasound-guided placement of Vas-Cath Clinical indication: Patient with a history of end-stage renal disease requiring dialysis access, prior catheter removed Date: 03/01/2020 Procedure: Following an explanation of the risks, benefits and alternatives; written informed consent was obtained from the patient's next of kin. The procedure was performed at bedside in the ICU. Initial ultrasound evaluation of the patient's right neck demonstrated a patent right internal jugular vein below the level of the previously placed Vas-Cath. The patient's right neck was prepped and draped in the usual sterile fashion. 1% lidocaine was used for anesthesia. Under ultrasound guidance, the right internal jugular vein was cannulated with a 7 cm 18-gauge needle. A 0.035 guidewire was advanced centrally easily. The needle was removed and following serial dilation over the guidewire, a 15 cm dialysis catheter was advanced over the guidewire centrally. The guidewire was removed. Nonpulsatile blood return from all 3 ports. The ports were flushed and locked with sterile saline. The catheter was securely fastened to the skin surface with 2-0 nylon suture and a sterile dressing applied. The patient tolerated the procedure well. There were no immediate postprocedure complications. No sedation was utilized. Postprocedure chest x-ray was ordered to document appropriate positioning. Impression: Ultrasound-guided placement of Vas-Cath via the right internal jugular vein.
--- NOTE | 2020-03-01 16:10 | XRay Report ---
CHEST 1 VIEW INDICATION: right ij vascath placement. COMPARISON: 02/27/2020 FINDINGS: SUPPORT DEVICES: Stable satisfactory device positioning. HEART: Within normal limits. LUNGS/PLEURA: Small layering effusion on the left. Otherwise clear lungs. No pneumothorax. ADDITIONAL FINDINGS: None. IMPRESSION: 1. Small left layering effusion. Otherwise unchanged exam. Signer Name: Nile Toledo MD Signed: 03/01/2020 4:05 PM Workstation Name: [id number]
--- NOTE | 2020-03-01 16:48 | Progress Note ---
Assessment and Plan Cultures: Blood culture 02/11/2020 no growth today Sputum culture 02/12/19 no growth today Sputum culture 02/13/19 usual resp sulaiman Blood culture 02/19/2020 no growth Cdiff toxin PCR Positive urine culture 02/19/2020 10-100K mult Blood culture 02/24/2020 with MRSE 4/4 Blood cultures 02/27/2020: No growth A/P: 74-year-old female past medical history hypertension, diabetes, mitral valve prolapse, hyperlipidemia admitted with acute sepsis and abdominal pain #Acute sepsis: likely due to ischemic bowel. Leukocytosis again up and low grade fever likely due to gram-positive cocci bacteremia -improving. s/p cefepime and flagyl - 8 days. #Staphylococcus epidermidis bacteremia: Patient with a PICC line and a hemo dialysis access. HD access was removed, repeat blood cultures negative and Vas- Cath was placed on 03/01/2020. Patient unable to be removed due to edema and inability to place a peripheral IV. 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 S/p exploratory laparotomy, enterocolonic anastamosis, closure of abdomen, application of wound vac on 02/15. on TPN #Respiratory failure: on BIPAP #Presumed infected renal cyst #Diabetes: Tight glycemic control for best outcomes #Diarrhea: resolved prior to presentation, doubt C diff, likely from ischemic bowel. #LITZY on CKD: Renally adjust antibiotics, worsening #Anemia/thrombocytopenia: from sepsis, severe anemia now, anticoagulation on hold. #Diarrhea? Cdiff toxin PCR Positive, can be colonization rather than disease, should have a Cdiff EIA not available unfortunately. Completed vancomycin 125 mg QID course. #UTI: corcoran replaced for I+O. #DVT: on anticoagulation Recs: -Continue renally adjusted IV vancomycin for total 7 days from bacteremia rojas adan (end date: 03/05/2020) Jamshid James MD, FACP [facility] C: [phone] O: [phone] F: [phone] Subjective Date of service: 03/01/20 Principal diagnosis: Ischemic Bowel Interval history: No fever. Got new Vas-Cath placed in the right IJ. Objective - Exam Narrative Exam: Constitutional: alert intubated Head, Ears, Nose: Normocephalic, atraumatic. Eyes: Conjunctivae/corneas clear. No icterus. No ptosis. Neck: Supple, no meningeal signs Oral: +ETT Cardiovascular: tachycardic Respiratory: Good air entry, clear to auscultation bilaterally GI: Soft, midline wound with VAC. Musculoskeletal:yareli arm edema Skin: No rash or abscess Hem/Lymphatic: No palpable cervical or supraclavicular nodes. No lymphangitis Psych: no agitated Neurological: alert - Constitutional Vitals: Vital Signs Temp Pulse Resp BP Pulse Ox 98.5 F 85 24 130/78 98 03/01/20 15:57 03/01/20 15:00 03/01/20 15:00 03/01/20 15:00 03/01/20 15:00 Temperature -Last 24 Hours Temperature 98.5 F Temperature 98.1 F Temperature 98.1 F Temperature 98.5 F Temperature 98.9 F Temperature 98.6 F Temperature 98.9 F - Labs CBC & Chem 7: 03/01/20 10:00 03/01/20 10:00 Labs: Abnormal lab results 02/29/20 02/29/20 02/29/20 Range/Units 12:03 18:17 21:46 WBC (4.5-11.0) K/mm3 RBC (3.65-5.03) M/mm3 Hgb (10.1-14.3) gm/dl Hct (30.3-42.9) % MCV (79-97) fl RDW (13.2-15.2) % Lymph % (Auto) (13.4-35.0) % Lymph # (1.2-5.4) K/mm3 Vermillion # (0.0-0.8) K/mm3 Seg Neutrophils % (40.0-70.0) % Seg Neutrophils # (1.8-7.7) K/mm3 Sodium (137-145) mmol/L Chloride (98-107) mmol/L Carbon Dioxide (22-30) mmol/L BUN (7-17) mg/dL Creatinine (0.7-1.2) mg/dL Glucose (65-100) mg/dL POC Glucose 236 H 238 H 217 H (70-105) Calcium (8.4-10.2) mg/dL Phosphorus (2.5-4.5) mg/dL Total Protein (6.3-8.2) g/dL Albumin (3.9-5) g/dL Crossmatch 02/29/20 03/01/20 03/01/20 Range/Units 23:34 05:59 10:00 WBC 17.0 H (4.5-11.0) K/mm3 RBC 1.91 L (3.65-5.03) M/mm3 Hgb 5.9 L* (10.1-14.3) gm/dl Hct 18.9 L* (30.3-42.9) % MCV 99 H (79-97) fl RDW 17.2 H (13.2-15.2) % Lymph % (Auto) 5.2 L (13.4-35.0) % Lymph # 0.9 L (1.2-5.4) K/mm3 Vermillion # 1.1 H (0.0-0.8) K/mm3 Seg Neutrophils % 86.5 H (40.0-70.0) % Seg Neutrophils # 14.7 H (1.8-7.7) K/mm3 Sodium (137-145) mmol/L Chloride (98-107) mmol/L Carbon Dioxide (22-30) mmol/L BUN (7-17) mg/dL Creatinine (0.7-1.2) mg/dL Glucose (65-100) mg/dL POC Glucose 159 H 195 H (70-105) Calcium (8.4-10.2) mg/dL Phosphorus (2.5-4.5) mg/dL Total Protein (6.3-8.2) g/dL Albumin (3.9-5) g/dL Crossmatch 03/01/20 03/01/20 03/01/20 Range/Units 10:00 10:00 12:28 WBC (4.5-11.0) K/mm3 RBC (3.65-5.03) M/mm3 Hgb (10.1-14.3) gm/dl Hct (30.3-42.9) % MCV (79-97) fl RDW (13.2-15.2) % Lymph % (Auto) (13.4-35.0) % Lymph # (1.2-5.4) K/mm3 [place] # (0.0-0.8) K/mm3 Seg Neutrophils % (40.0-70.0) % Seg Neutrophils # (1.8-7.7) K/mm3 Sodium 147 H (137-145) mmol/L Chloride 107.7 H (98-107) mmol/L Carbon Dioxide 14 L 14 L (22-30) mmol/L BUN 134 H 133 H (7-17) mg/dL Creatinine 7.7 H 7.3 H (0.7-1.2) mg/dL Glucose 139 H 147 H (65-100) mg/dL POC Glucose 160 H (70-105) Calcium 8.0 L 8.0 L (8.4-10.2) mg/dL Phosphorus 10.20 H (2.5-4.5) mg/dL Total Protein 4.7 L (6.3-8.2) g/dL Albumin 2.3 L (3.9-5) g/dL Crossmatch 03/01/20 Range/Units 15:30 WBC (4.5-11.0) K/mm3 RBC (3.65-5.03) M/mm3 Hgb (10.1-14.3) gm/dl Hct (30.3-42.9) % MCV (79-97) fl RDW (13.2-15.2) % Lymph % (Auto) (13.4-35.0) % Lymph # (1.2-5.4) K/mm3 [place] # (0.0-0.8) K/mm3 Seg Neutrophils % (40.0-70.0) % Seg Neutrophils # (1.8-7.7) K/mm3 Sodium (137-145) mmol/L Chloride (98-107) mmol/L Carbon Dioxide (22-30) mmol/L BUN (7-17) mg/dL Creatinine (0.7-1.2) mg/dL Glucose (65-100) mg/dL POC Glucose (70-105) Calcium (8.4-10.2) mg/dL Phosphorus (2.5-4.5) mg/dL Total Protein (6.3-8.2) g/dL Albumin (3.9-5) g/dL Crossmatch See Detail
[2020-03-01] MEDS ORDERED: VANCOMYCIN/NS 1 GM/250 ML 1 GM/250 ML BAG IV SCH (18:00)
--- NOTE | 2020-03-01 23:31 | Progress Note ---
Assessment and Plan Imp: 1. Ischemic necrosis of small bowel 2. Bacteremia 3. Sepsis 4. Acute respiratory failure, hypoxia 5. LITZY 6. Acute DVT Rec: 1. For HD 2. ABX per renal 3. PSV trials 4. 1 unit of PRBCs and f/u H/H 5. TFs 6. Eliquis 7. LTAC placement 8. Prognosis guarded CCT 31 minutes Subjective Date of service: 03/01/20 Principal diagnosis: Ischemic Bowel Interval history: Vascath replaced for HD. Patient remains on ventilator. Arousable, follows commands. No obvious complaints. Active Medications Acetaminophen (Tylenol) 650 mg PO Q4H PRN PRN Reason: Pain MILD(1-3)/Fever >100.5/[facility] Last Admin: 02/27/20 12:00 Dose: 650 mg Documented by: Amiodarone HCl (Cordarone) 200 mg PO QDAY [facility] Last Admin: 03/02/20 09:39 Dose: 200 mg Documented by: Lipase/Protease/Amylase (Pancreaze Dr 10,500 Unit) 1 each FEEDTUBE PRN PRN PRN Reason: For Clogged Feeding Tube Apixaban (Eliquis) 10 mg PO Q12HR [facility]; Protocol Stop: 03/03/20 22:01 Last Admin: 03/02/20 09:36 Dose: 10 mg Documented by: Apixaban (Eliquis) 5 mg PO Q12HR [facility]; Protocol Dextrose (D50w (25gm) Syringe) 50 ml IV Q30MIN PRN; Protocol PRN Reason: Hypoglycemia Famotidine (Pepcid) 20 mg PO DAILY [facility] Last Admin: 03/02/20 09:36 Dose: 20 mg Documented by: Fentanyl (Sublimaze) 50 mcg IV Q2HR PRN PRN Reason: Pain, Moderate (4-6) Last Admin: 03/02/20 08:00 Dose: 50 mcg Documented by: Hydrophilic Ointment (Vaseline Lip Therapy) 1 applic TP Q2HR PRN PRN Reason: Dry Lips Sodium Chloride (Nacl 0.9%) 100 mls @ 999 mls/hr IV FABIOLA PRN PRN Reason: Hypotension Sodium Chloride (Nacl 0.9% 500 Ml) 500 mls @ 0 mls/hr IV ONCE NADER Vancomycin HCl (Vancomycin/Ns 1 Gm/250 Ml) 1 gm in 250 mls @ 167.007 mls/hr IV MoWeFr NADER Stop: 03/05/20 21:59 Insulin Glargine (Lantus) 25 units SUB-Q BID [facility] Last Admin: 03/02/20 09:37 Dose: 25 units Documented by: Insulin Human Lispro (Humalog) 0 unit SUB-Q Q6HR [facility]; Protocol Last Admin: 03/02/20 06:51 Dose: Not Given Documented by: Labetalol HCl (Labetalol) 20 mg IV Q4H PRN PRN Reason: SBP >150 Last Admin: 03/02/20 12:20 Dose: 20 mg Documented by: Metoprolol Tartrate (Metoprolol) 2.5 mg IV Q6HR PRN PRN Reason: HR >130 Last Admin: 02/27/20 02:34 Dose: 2.5 mg Documented by: Metoprolol Tartrate (Metoprolol) 50 mg PO Q8H [facility] Last Admin: 03/02/20 05:16 Dose: 50 mg Documented by: Multi-Ingred Cream/Lotion/Oil/Oint (Artificial Tears Ophth Oint) 1 applic OU Q4HR PRN PRN Reason: Dry Eye(s) Sertraline HCl (Zoloft) 50 mg PO QDAY [facility] Last Admin: 03/02/20 09:36 Dose: 50 mg Documented by: Simple Syrup (Simple Syrup) 15 ml FEEDTUBE PRN PRN PRN Reason: Hypoglycemia Last Admin: 03/02/20 11:39 Dose: 15 ml Documented by: Simple Syrup (Simple Syrup) 30 ml FEEDTUBE PRN PRN PRN Reason: Hypoglycemia Sodium Bicarbonate (Sodium Bicarbonate) 325 mg FEEDTUBE PRN PRN PRN Reason: For Clogged Feeding Tube Sodium Chloride (Sodium Chloride Flush Syringe 10 Ml) 10 ml IV BID [facility] Last Admin: 03/01/20 22:42 Dose: 10 ml Documented by: Sodium Chloride (Sodium Chloride Flush Syringe 10 Ml) 10 ml IV PRN PRN PRN Reason: LINE FLUSH Last Admin: 02/15/20 22:43 Dose: 10 ml Documented by: Objective Vital Signs - 12hr 03/01/20 03/01/20 03/01/20 12:00 12:18 12:30 Temperature 98.1 F Pulse Rate 94 H 99 H 90 Pulse Rate [ 102 H From Monitor] Pulse Rate [Pre -Procedure] Respiratory 27 H 25 H Rate Respiratory Rate [Abdomen] Respiratory Rate [Pre- Procedure] Blood Pressure 101/55 111/71 111/71 Blood Pressure [Pre-Procedure] O2 Sat by Pulse 98 100 Oximetry O2 Sat by Pulse Oximetry [ Bilateral Throughout] O2 Sat by Pulse Oximetry [Pre- Procedure] 03/01/20 03/01/20 03/01/20 13:00 13:30 14:00 Temperature Pulse Rate 88 84 83 Pulse Rate [ From Monitor] Pulse Rate [Pre -Procedure] Respiratory 26 H 28 H 27 H Rate Respiratory Rate [Abdomen] Respiratory Rate [Pre- Procedure] Blood Pressure 150/75 140/75 157/72 Blood Pressure [Pre-Procedure] O2 Sat by Pulse 100 100 100 Oximetry O2 Sat by Pulse Oximetry [ Bilateral Throughout] O2 Sat by Pulse Oximetry [Pre- Procedure] 03/01/20 03/01/20 03/01/20 14:01 14:30 15:00 Temperature Pulse Rate 89 85 Pulse Rate [ From Monitor] Pulse Rate [Pre -Procedure] Respiratory 26 H 24 24 Rate Respiratory Rate [Abdomen] Respiratory Rate [Pre- Procedure] Blood Pressure 138/65 130/78 Blood Pressure [Pre-Procedure] O2 Sat by Pulse 100 98 Oximetry O2 Sat by Pulse Oximetry [ Bilateral Throughout] O2 Sat by Pulse Oximetry [Pre- Procedure] 03/01/20 03/01/20 03/01/20 15:30 15:57 16:00 Temperature 98.5 F Pulse Rate 77 94 H Pulse Rate [ 86 From Monitor] Pulse Rate [Pre -Procedure] Respiratory 23 19 Rate Respiratory Rate [Abdomen] Respiratory Rate [Pre- Procedure] Blood Pressure 97/59 141/61 Blood Pressure [Pre-Procedure] O2 Sat by Pulse 100 100 Oximetry O2 Sat by Pulse Oximetry [ Bilateral Throughout] O2 Sat by Pulse Oximetry [Pre- Procedure] 03/01/20 03/01/20 03/01/20 16:30 17:00 17:08 Temperature Pulse Rate 85 95 H Pulse Rate [ From Monitor] Pulse Rate [Pre 87 -Procedure] Respiratory 22 22 Rate Respiratory Rate [Abdomen] Respiratory 16 Rate [Pre- Procedure] Blood Pressure 135/71 144/75 Blood Pressure 138/65 [Pre-Procedure] O2 Sat by Pulse 100 100 Oximetry O2 Sat by Pulse Oximetry [ Bilateral Throughout] O2 Sat by Pulse 100 Oximetry [Pre- Procedure] 03/01/20 03/01/20 03/01/20 17:25 17:30 18:00 Temperature Pulse Rate 82 85 Pulse Rate [ From Monitor] Pulse Rate [Pre -Procedure] Respiratory 26 H 22 Rate Respiratory Rate [Abdomen] Respiratory Rate [Pre- Procedure] Blood Pressure 144/75 147/74 Blood Pressure [Pre-Procedure] O2 Sat by Pulse 98 100 100 Oximetry O2 Sat by Pulse Oximetry [ Bilateral Throughout] O2 Sat by Pulse Oximetry [Pre- Procedure] 03/01/20 03/01/20 03/01/20 18:10 18:15 18:30 Temperature 98.8 F Pulse Rate 86 96 H 94 H Pulse Rate [ From Monitor] Pulse Rate [Pre -Procedure] Respiratory 24 23 Rate Respiratory Rate [Abdomen] Respiratory Rate [Pre- Procedure] Blood Pressure 147/74 153/69 144/73 Blood Pressure [Pre-Procedure] O2 Sat by Pulse 100 Oximetry O2 Sat by Pulse 100 Oximetry [ Bilateral Throughout] O2 Sat by Pulse Oximetry [Pre- Procedure] 03/01/20 03/01/20 03/01/20 18:45 19:00 19:15 Temperature Pulse Rate 103 H 113 H 111 H Pulse Rate [ From Monitor] Pulse Rate [Pre -Procedure] Respiratory 25 H Rate Respiratory Rate [Abdomen] Respiratory Rate [Pre- Procedure] Blood Pressure 137/67 128/69 119/77 Blood Pressure [Pre-Procedure] O2 Sat by Pulse 100 Oximetry O2 Sat by Pulse Oximetry [ Bilateral Throughout] O2 Sat by Pulse Oximetry [Pre- Procedure] 03/01/20 03/01/20 03/01/20 19:30 19:45 20:00 Temperature 97.8 F Pulse Rate 107 H 111 H 112 H Pulse Rate [ From Monitor] Pulse Rate [Pre -Procedure] Respiratory 28 H 30 H Rate Respiratory Rate [Abdomen] Respiratory Rate [Pre- Procedure] Blood Pressure 110/77 120/81 120/81 Blood Pressure [Pre-Procedure] O2 Sat by Pulse 100 100 Oximetry O2 Sat by Pulse Oximetry [ Bilateral Throughout] O2 Sat by Pulse Oximetry [Pre- Procedure] 03/01/20 03/01/20 03/01/20 20:15 20:30 20:45 Temperature Pulse Rate 114 H 122 H 120 H Pulse Rate [ From Monitor] Pulse Rate [Pre -Procedure] Respiratory 30 H Rate Respiratory Rate [Abdomen] Respiratory Rate [Pre- Procedure] Blood Pressure 140/98 140/98 175/98 Blood Pressure [Pre-Procedure] O2 Sat by Pulse 100 Oximetry O2 Sat by Pulse Oximetry [ Bilateral Throughout] O2 Sat by Pulse Oximetry [Pre- Procedure] 03/01/20 03/01/20 03/01/20 21:00 21:10 21:15 Temperature Pulse Rate 111 H 117 H 106 H Pulse Rate [ From Monitor] Pulse Rate [Pre -Procedure] Respiratory 26 H Rate Respiratory Rate [Abdomen] Respiratory Rate [Pre- Procedure] Blood Pressure 136/88 177/90 120/56 Blood Pressure [Pre-Procedure] O2 Sat by Pulse 100 100 Oximetry O2 Sat by Pulse Oximetry [ Bilateral Throughout] O2 Sat by Pulse Oximetry [Pre- Procedure] 03/01/20 03/01/20 03/01/20 21:25 21:30 22:00 Temperature 98.8 F Pulse Rate 97 H 100 H 95 H Pulse Rate [ From Monitor] Pulse Rate [Pre -Procedure] Respiratory 25 H 23 26 H Rate Respiratory 27 H Rate [Abdomen] Respiratory Rate [Pre- Procedure] Blood Pressure 134/55 113/66 115/64 Blood Pressure [Pre-Procedure] O2 Sat by Pulse 100 100 Oximetry O2 Sat by Pulse 100 Oximetry [ Bilateral Throughout] O2 Sat by Pulse Oximetry [Pre- Procedure] 03/01/20 03/01/20 03/01/20 22:30 22:43 23:00 Temperature Pulse Rate 97 H 92 H 99 H Pulse Rate [ From Monitor] Pulse Rate [Pre -Procedure] Respiratory 23 26 H Rate Respiratory Rate [Abdomen] Respiratory Rate [Pre- Procedure] Blood Pressure 142/72 142/72 159/86 Blood Pressure [Pre-Procedure] O2 Sat by Pulse 100 100 Oximetry O2 Sat by Pulse Oximetry [ Bilateral Throughout] O2 Sat by Pulse Oximetry [Pre- Procedure] Constitutional: no acute distress, other (on vent intubated and critically ill) Eyes: non-icteric ENT: other (orally intubated ) Effort: normal Ascultation: Bilateral: clear Cardiovascular: irregular rhythm (but rate controlled) Gastrointestinal: normoactive bowel sounds, non-distended, other (post surgical changes) Integumentary: normal Extremities: no cyanosis, pink and warm, edema Neurologic: other (awake, alert) Psychiatric: mood appropriate, affect normal CBC and BMP: 03/02/20 05:22 03/02/20 05:22 ABG, PT/INR, D-dimer: ABG ABG pH 7.318 pH Units (7.350-7.450) L 02/21/20 04:16 ABG pCO2 42.7 mm Hg 02/21/20 04:16 ABG pO2 100.0 mm Hg (80.0-90.0) H 02/21/20 04:16 ABG O2 Saturation 97.2 % (95.0-99.0) 02/21/20 04:16 PT/INR, D-dimer PT 16.9 Sec. (12.2-14.9) H 02/13/20 20:10 INR 1.41 (0.87-1.13) H 02/13/20 20:10 Abnormal lab findings: Abnormal Labs 02/11/20 02/11/20 02/11/20 15:27 15:27 15:27 WBC 22.5 H RBC Hgb Hct MCV MCHC RDW Plt Count Lymph % (Auto) Gem % (Auto) Lymph # Gem # Seg Neutrophils % Seg Neuts % (Manual) 90.0 H Lymphocytes % (Manual) 4.0 L Monocytes % (Manual) Nucleated RBC % Seg Neutrophils # Seg Neutrophils # Man 20.3 H Lymphocytes # (Manual) 0.9 L Monocytes # (Manual) 1.1 H Eosinophils # (Manual) PT INR APTT 23.3 L Heparin Anti-Xa Level ABG pH ABG pO2 ABG HCO3 ABG O2 Saturation ABG Base Excess ABG Hemoglobin Oxyhemoglobin Sodium 132 L Potassium Chloride 96.0 L Carbon Dioxide 16 L BUN 59 H Creatinine 3.0 H Glucose 487 H POC Glucose Calcium Phosphorus Magnesium Alkaline Phosphatase 142 H Total Protein Albumin Triglycerides Lipase 86 H Urine WBC (Auto) Urine Creatinine Urine Total Protein Crossmatch 02/12/20 02/12/20 02/12/20 04:58 04:58 Unknown WBC 30.0 H RBC Hgb Hct MCV MCHC RDW Plt Count Lymph % (Auto) Gem % (Auto) Lymph # Gem # Seg Neutrophils % Seg Neuts % (Manual) 96.0 H Lymphocytes % (Manual) 1.0 L Monocytes % (Manual) Nucleated RBC % Seg Neutrophils # Seg Neutrophils # Man 28.8 H Lymphocytes # (Manual) 0.3 L Monocytes # (Manual) 0.9 H Eosinophils # (Manual) PT INR APTT Heparin Anti-Xa Level ABG pH ABG pO2 ABG HCO3 ABG O2 Saturation ABG Base Excess ABG Hemoglobin Oxyhemoglobin Sodium Potassium Chloride Carbon Dioxide 15 L BUN 59 H Creatinine 3.0 H Glucose 477 H POC Glucose Calcium Phosphorus Magnesium Alkaline Phosphatase Total Protein Albumin 3.5 L Triglycerides Lipase Urine WBC (Auto) Urine Creatinine 35.3 H Urine Total Protein 796 H Crossmatch 02/13/20 02/13/20 02/13/20 05:43 05:43 13:24 WBC 38.2 H RBC Hgb Hct 43.6 H MCV MCHC RDW Plt Count Lymph % (Auto) Gem % (Auto) Lymph # Gem # Seg Neutrophils % Seg Neuts % (Manual) 91.0 H Lymphocytes % (Manual) 4.0 L Monocytes % (Manual) Nucleated RBC % Seg Neutrophils # Seg Neutrophils # Man 34.8 H Lymphocytes # (Manual) Monocytes # (Manual) 1.1 H Eosinophils # (Manual) PT INR APTT Heparin Anti-Xa Level ABG pH ABG pO2 ABG HCO3 ABG O2 Saturation ABG Base Excess ABG Hemoglobin Oxyhemoglobin Sodium 136 L Potassium Chloride Carbon Dioxide 11 L BUN 71 H Creatinine 4.0 H Glucose 343 H POC Glucose 337 H Calcium Phosphorus Magnesium Alkaline Phosphatase Total Protein Albumin Triglycerides Lipase Urine WBC (Auto) Urine Creatinine Urine Total Protein Crossmatch 02/13/20 02/13/20 02/13/20 16:49 16:50 17:30 WBC RBC Hgb Hct MCV MCHC RDW Plt Count Lymph % (Auto) Gem % (Auto) Lymph # Gem # Seg Neutrophils % Seg Neuts % (Manual) Lymphocytes % (Manual) Monocytes % (Manual) Nucleated RBC % Seg Neutrophils # Seg Neutrophils # Man Lymphocytes # (Manual) Monocytes # (Manual) Eosinophils # (Manual) PT INR APTT Heparin Anti-Xa Level ABG pH 7.226 L ABG pO2 77.9 L ABG HCO3 16.4 L ABG O2 Saturation ABG Base Excess -10.5 L ABG Hemoglobin 11.7 L Oxyhemoglobin 92.8 L Sodium Potassium Chloride Carbon Dioxide BUN Creatinine Glucose POC Glucose 272 H Calcium Phosphorus Magnesium Alkaline Phosphatase Total Protein Albumin Triglycerides Lipase Urine WBC (Auto) Urine Creatinine Urine Total Protein Crossmatch See Detail 02/13/20 02/13/20 02/13/20 20:10 20:42 22:08 WBC RBC Hgb Hct MCV MCHC RDW Plt Count Lymph % (Auto) Gem % (Auto) Lymph # Gem # Seg Neutrophils % Seg Neuts % (Manual) Lymphocytes % (Manual) Monocytes % (Manual) Nucleated RBC % Seg Neutrophils # Seg Neutrophils # Man Lymphocytes # (Manual) Monocytes # (Manual) Eosinophils # (Manual) PT 16.9 H INR 1.41 H APTT Heparin Anti-Xa Level ABG pH 7.158 L* ABG pO2 ABG HCO3 18.6 L ABG O2 Saturation ABG Base Excess -10.2 L ABG Hemoglobin 11.9 L Oxyhemoglobin 93.1 L Sodium Potassium Chloride Carbon Dioxide BUN Creatinine Glucose POC Glucose 171 H Calcium Phosphorus Magnesium Alkaline Phosphatase Total Protein Albumin Triglycerides Lipase Urine WBC (Auto) Urine Creatinine Urine Total Protein Crossmatch 02/14/20 02/14/20 02/14/20 00:22 03:45 04:29 WBC RBC Hgb Hct MCV MCHC RDW Plt Count Lymph % (Auto) Gem % (Auto) Lymph # Gem # Seg Neutrophils % Seg Neuts % (Manual) Lymphocytes % (Manual) Monocytes % (Manual) Nucleated RBC % Seg Neutrophils # Seg Neutrophils # Man Lymphocytes # (Manual) Monocytes # (Manual) Eosinophils # (Manual) PT INR APTT Heparin Anti-Xa Level ABG pH 7.193 L* ABG pO2 ABG HCO3 16.4 L ABG O2 Saturation ABG Base Excess -11.2 L ABG Hemoglobin 10.2 L Oxyhemoglobin 94.3 L Sodium Potassium Chloride 108.5 H Carbon Dioxide 16 L BUN 73 H Creatinine 4.3 H Glucose 167 H POC Glucose 199 H Calcium 8.0 L Phosphorus Magnesium Alkaline Phosphatase Total Protein Albumin Triglycerides Lipase Urine WBC (Auto) Urine Creatinine Urine Total Protein Crossmatch 02/14/20 02/14/20 02/14/20 04:29 05:26 12:11 WBC 14.4 H RBC Hgb Hct MCV MCHC RDW 15.3 H Plt Count Lymph % (Auto) Gem % (Auto) Lymph # Gem # Seg Neutrophils % Seg Neuts % (Manual) 88.0 H Lymphocytes % (Manual) 6.0 L Monocytes % (Manual) Nucleated RBC % Seg Neutrophils # Seg Neutrophils # Man 12.7 H Lymphocytes # (Manual) 0.9 L Monocytes # (Manual) Eosinophils # (Manual) PT INR APTT Heparin Anti-Xa Level ABG pH ABG pO2 ABG HCO3 ABG O2 Saturation ABG Base Excess ABG Hemoglobin Oxyhemoglobin Sodium Potassium Chloride Carbon Dioxide BUN Creatinine Glucose POC Glucose 177 H 160 H Calcium Phosphorus Magnesium Alkaline Phosphatase Total Protein Albumin Triglycerides Lipase Urine WBC (Auto) Urine Creatinine Urine Total Protein Crossmatch 02/14/20 02/14/20 02/15/20 18:34 23:18 03:19 WBC RBC Hgb Hct MCV MCHC RDW Plt Count Lymph % (Auto) Gem % (Auto) Lymph # Gem # Seg Neutrophils % Seg Neuts % (Manual) Lymphocytes % (Manual) Monocytes % (Manual) Nucleated RBC % Seg Neutrophils # Seg Neutrophils # Man Lymphocytes # (Manual) Monocytes # (Manual) Eosinophils # (Manual) PT INR APTT Heparin Anti-Xa Level ABG pH 7.246 L ABG pO2 ABG HCO3 13.7 L ABG O2 Saturation ABG Base Excess -12.5 L ABG Hemoglobin 8.4 L Oxyhemoglobin 94.6 L Sodium Potassium Chloride Carbon Dioxide BUN Creatinine Glucose POC Glucose 135 H 138 H Calcium Phosphorus Magnesium Alkaline Phosphatase Total Protein Albumin Triglycerides Lipase Urine WBC (Auto) Urine Creatinine Urine Total Protein Crossmatch 02/15/20 02/15/20 02/15/20 04:28 04:28 05:35 WBC RBC 2.88 L Hgb 8.6 L Hct 25.4 L D MCV MCHC RDW 15.6 H Plt Count Lymph % (Auto) Gem % (Auto) Lymph # Gem # Seg Neutrophils % Seg Neuts % (Manual) Lymphocytes % (Manual) Monocytes % (Manual) Nucleated RBC % Seg Neutrophils # Seg Neutrophils # Man Lymphocytes # (Manual) Monocytes # (Manual) Eosinophils # (Manual) PT INR APTT Heparin Anti-Xa Level ABG pH ABG pO2 ABG HCO3 ABG O2 Saturation ABG Base Excess ABG Hemoglobin Oxyhemoglobin Sodium Potassium Chloride Carbon Dioxide 12 L BUN 72 H Creatinine 4.7 H Glucose 147 H POC Glucose 181 H Calcium 7.9 L Phosphorus Magnesium Alkaline Phosphatase Total Protein Albumin Triglycerides Lipase Urine WBC (Auto) Urine Creatinine Urine Total Protein Crossmatch 02/15/20 02/15/20 02/15/20 12:07 17:50 23:18 WBC RBC Hgb Hct MCV MCHC RDW Plt Count Lymph % (Auto) Gem % (Auto) Lymph # Gem # Seg Neutrophils % Seg Neuts % (Manual) Lymphocytes % (Manual) Monocytes % (Manual) Nucleated RBC % Seg Neutrophils # Seg Neutrophils # Man Lymphocytes # (Manual) Monocytes # (Manual) Eosinophils # (Manual) PT INR APTT Heparin Anti-Xa Level ABG pH ABG pO2 ABG HCO3 ABG O2 Saturation ABG Base Excess ABG Hemoglobin Oxyhemoglobin Sodium Potassium Chloride Carbon Dioxide BUN Creatinine Glucose POC Glucose 136 H 177 H 284 H Calcium Phosphorus Magnesium Alkaline Phosphatase Total Protein Albumin Triglycerides Lipase Urine WBC (Auto) Urine Creatinine Urine Total Protein Crossmatch 02/16/20 02/16/20 02/16/20 04:20 05:24 05:29 WBC RBC Hgb Hct MCV MCHC RDW Plt Count Lymph % (Auto) Gem % (Auto) Lymph # Gem # Seg Neutrophils % Seg Neuts % (Manual) Lymphocytes % (Manual) Monocytes % (Manual) Nucleated RBC % Seg Neutrophils # Seg Neutrophils # Man Lymphocytes # (Manual) Monocytes # (Manual) Eosinophils # (Manual) PT INR APTT Heparin Anti-Xa Level ABG pH ABG pO2 77.4 L ABG HCO3 ABG O2 Saturation ABG Base Excess -4.7 L ABG Hemoglobin 5.0 L Oxyhemoglobin Sodium 135 L Potassium 3.0 L D Chloride 90.7 L Carbon Dioxide BUN 64 H Creatinine 4.7 H Glucose 491 H POC Glucose 282 H Calcium 7.2 L Phosphorus Magnesium Alkaline Phosphatase Total Protein Albumin Triglycerides Lipase Urine WBC (Auto) Urine Creatinine Urine Total Protein Crossmatch 02/16/20 02/16/20 02/16/20 05:29 05:29 08:39 WBC RBC 2.31 L Hgb 7.2 L Hct 20.2 L MCV MCHC 36 H RDW 15.3 H Plt Count 115 L Lymph % (Auto) Gem % (Auto) Lymph # Gem # Seg Neutrophils % Seg Neuts % (Manual) Lymphocytes % (Manual) Monocytes % (Manual) Nucleated RBC % Seg Neutrophils # Seg Neutrophils # Man Lymphocytes # (Manual) Monocytes # (Manual) Eosinophils # (Manual) PT INR APTT Heparin Anti-Xa Level ABG pH ABG pO2 ABG HCO3 ABG O2 Saturation ABG Base Excess ABG Hemoglobin Oxyhemoglobin Sodium Potassium Chloride Carbon Dioxide BUN Creatinine Glucose POC Glucose Calcium Phosphorus Magnesium Alkaline Phosphatase Total Protein Albumin Triglycerides 716 H Lipase Urine WBC (Auto) Urine Creatinine Urine Total Protein Crossmatch See Detail 02/16/20 02/16/20 02/17/20 12:27 19:04 00:02 WBC RBC Hgb Hct MCV MCHC RDW Plt Count Lymph % (Auto) Gem % (Auto) Lymph # Gem # Seg Neutrophils % Seg Neuts % (Manual) Lymphocytes % (Manual) Monocytes % (Manual) Nucleated RBC % Seg Neutrophils # Seg Neutrophils # Man Lymphocytes # (Manual) Monocytes # (Manual) Eosinophils # (Manual) PT INR APTT Heparin Anti-Xa Level ABG pH ABG pO2 ABG HCO3 ABG O2 Saturation ABG Base Excess ABG Hemoglobin Oxyhemoglobin Sodium Potassium Chloride Carbon Dioxide BUN Creatinine Glucose POC Glucose 314 H 203 H 202 H Calcium Phosphorus Magnesium Alkaline Phosphatase Total Protein Albumin Triglycerides Lipase Urine WBC (Auto) Urine Creatinine Urine Total Protein Crossmatch 02/17/20 02/17/20 02/17/20 03:45 03:45 03:45 WBC RBC Hgb 9.9 L Hct 30.1 L D MCV MCHC RDW Plt Count Lymph % (Auto) Gem % (Auto) Lymph # Gem # Seg Neutrophils % Seg Neuts % (Manual) Lymphocytes % (Manual) Monocytes % (Manual) Nucleated RBC % Seg Neutrophils # Seg Neutrophils # Man Lymphocytes # (Manual) Monocytes # (Manual) Eosinophils # (Manual) PT INR APTT Heparin Anti-Xa Level ABG pH ABG pO2 ABG HCO3 ABG O2 Saturation ABG Base Excess ABG Hemoglobin Oxyhemoglobin Sodium Potassium Chloride Carbon Dioxide 21 L BUN 63 H Creatinine 5.2 H Glucose 134 H POC Glucose Calcium 7.6 L Phosphorus Magnesium Alkaline Phosphatase Total Protein Albumin Triglycerides 238 H Lipase Urine WBC (Auto) Urine Creatinine Urine Total Protein Crossmatch 02/17/20 02/17/20 02/17/20 04:06 05:21 12:08 WBC RBC Hgb Hct MCV MCHC RDW Plt Count Lymph % (Auto) Gem % (Auto) Lymph # Gem # Seg Neutrophils % Seg Neuts % (Manual) Lymphocytes % (Manual) Monocytes % (Manual) Nucleated RBC % Seg Neutrophils # Seg Neutrophils # Man Lymphocytes # (Manual) Monocytes # (Manual) Eosinophils # (Manual) PT INR APTT Heparin Anti-Xa Level ABG pH 7.288 L ABG pO2 ABG HCO3 ABG O2 Saturation ABG Base Excess -4.9 L ABG Hemoglobin 9.7 L Oxyhemoglobin 94.0 L Sodium Potassium Chloride Carbon Dioxide BUN Creatinine Glucose POC Glucose 132 H 141 H Calcium Phosphorus Magnesium Alkaline Phosphatase Total Protein Albumin Triglycerides Lipase Urine WBC (Auto) Urine Creatinine Urine Total Protein Crossmatch 02/17/20 02/17/20 02/17/20 18:07 19:54 23:13 WBC RBC Hgb Hct MCV MCHC RDW Plt Count Lymph % (Auto) Gem % (Auto) Lymph # Gem # Seg Neutrophils % Seg Neuts % (Manual) Lymphocytes % (Manual) Monocytes % (Manual) Nucleated RBC % Seg Neutrophils # Seg Neutrophils # Man Lymphocytes # (Manual) Monocytes # (Manual) Eosinophils # (Manual) PT INR APTT Heparin Anti-Xa Level < 0.10 L ABG pH ABG pO2 ABG HCO3 ABG O2 Saturation ABG Base Excess ABG Hemoglobin Oxyhemoglobin Sodium Potassium Chloride Carbon Dioxide BUN Creatinine Glucose POC Glucose 189 H 167 H Calcium Phosphorus Magnesium Alkaline Phosphatase Total Protein Albumin Triglycerides Lipase Urine WBC (Auto) Urine Creatinine Urine Total Protein Crossmatch 02/18/20 02/18/20 02/18/20 03:41 04:37 05:44 WBC RBC Hgb Hct MCV MCHC RDW Plt Count Lymph % (Auto) Gem % (Auto) Lymph # Gem # Seg Neutrophils % Seg Neuts % (Manual) Lymphocytes % (Manual) Monocytes % (Manual) Nucleated RBC % Seg Neutrophils # Seg Neutrophils # Man Lymphocytes # (Manual) Monocytes # (Manual) Eosinophils # (Manual) PT INR APTT Heparin Anti-Xa Level ABG pH 7.281 L ABG pO2 74.5 L ABG HCO3 16.2 L ABG O2 Saturation 94.3 L ABG Base Excess -9.7 L ABG Hemoglobin 9.8 L Oxyhemoglobin 92.1 L Sodium Potassium Chloride Carbon Dioxide 15 L BUN 65 H Creatinine 5.1 H Glucose 117 H POC Glucose 112 H Calcium 7.7 L Phosphorus Magnesium Alkaline Phosphatase Total Protein Albumin Triglycerides Lipase Urine WBC (Auto) Urine Creatinine Urine Total Protein Crossmatch 02/18/20 02/18/20 02/18/20 09:00 09:00 12:41 WBC 14.9 H RBC 2.99 L Hgb 8.8 L Hct 27.1 L MCV MCHC RDW 15.8 H Plt Count 131 L Lymph % (Auto) Gem % (Auto) Lymph # Gem # Seg Neutrophils % Seg Neuts % (Manual) Lymphocytes % (Manual) Monocytes % (Manual) Nucleated RBC % Seg Neutrophils # Seg Neutrophils # Man Lymphocytes # (Manual) Monocytes # (Manual) Eosinophils # (Manual) PT INR APTT Heparin Anti-Xa Level ABG pH ABG pO2 ABG HCO3 ABG O2 Saturation ABG Base Excess ABG Hemoglobin Oxyhemoglobin Sodium Potassium Chloride Carbon Dioxide BUN Creatinine Glucose POC Glucose 140 H Calcium Phosphorus 6.40 H Magnesium 1.30 L Alkaline Phosphatase Total Protein Albumin Triglycerides Lipase Urine WBC (Auto) Urine Creatinine Urine Total Protein Crossmatch 02/18/20 02/18/20 02/19/20 17:58 23:06 03:50 WBC RBC Hgb Hct MCV MCHC RDW Plt Count Lymph % (Auto) Gem % (Auto) Lymph # Gem # Seg Neutrophils % Seg Neuts % (Manual) Lymphocytes % (Manual) Monocytes % (Manual) Nucleated RBC % Seg Neutrophils # Seg Neutrophils # Man Lymphocytes # (Manual) Monocytes # (Manual) Eosinophils # (Manual) PT INR APTT Heparin Anti-Xa Level ABG pH 7.243 L ABG pO2 75.3 L ABG HCO3 11.8 L ABG O2 Saturation 94.0 L ABG Base Excess -14.1 L ABG Hemoglobin 9.6 L Oxyhemoglobin 91.8 L Sodium Potassium Chloride Carbon Dioxide BUN Creatinine Glucose POC Glucose 141 H 212 H Calcium Phosphorus Magnesium Alkaline Phosphatase Total Protein Albumin Triglycerides Lipase Urine WBC (Auto) Urine Creatinine Urine Total Protein Crossmatch 02/19/20 02/19/20 02/19/20 04:30 04:30 04:30 WBC 19.8 H RBC 3.19 L Hgb 9.1 L Hct 28.9 L MCV MCHC RDW 15.5 H Plt Count Lymph % (Auto) Gem % (Auto) Lymph # Gem # Seg Neutrophils % Seg Neuts % (Manual) 86.0 H Lymphocytes % (Manual) 5.0 L Monocytes % (Manual) Nucleated RBC % Seg Neutrophils # Seg Neutrophils # Man 17.0 H Lymphocytes # (Manual) 1.0 L Monocytes # (Manual) 1.4 H Eosinophils # (Manual) PT INR APTT Heparin Anti-Xa Level ABG pH ABG pO2 ABG HCO3 ABG O2 Saturation ABG Base Excess ABG Hemoglobin Oxyhemoglobin Sodium 136 L Potassium Chloride Carbon Dioxide 12 L BUN 76 H Creatinine 5.2 H Glucose 228 H POC Glucose Calcium Phosphorus 8.00 H D Magnesium Alkaline Phosphatase Total Protein Albumin Triglycerides Lipase Urine WBC (Auto) Urine Creatinine Urine Total Protein Crossmatch 02/19/20 02/19/20 02/19/20 06:19 11:37 14:00 WBC RBC Hgb Hct MCV MCHC RDW Plt Count Lymph % (Auto) Gem % (Auto) Lymph # Gem # Seg Neutrophils % Seg Neuts % (Manual) Lymphocytes % (Manual) Monocytes % (Manual) Nucleated RBC % Seg Neutrophils # Seg Neutrophils # Man Lymphocytes # (Manual) Monocytes # (Manual) Eosinophils # (Manual) PT INR APTT Heparin Anti-Xa Level ABG pH ABG pO2 ABG HCO3 ABG O2 Saturation ABG Base Excess ABG Hemoglobin Oxyhemoglobin Sodium 132 L Potassium Chloride 95.4 L Carbon Dioxide 15 L BUN 75 H Creatinine 5.2 H Glucose 526 H* POC Glucose 253 H 288 H Calcium 7.6 L Phosphorus Magnesium Alkaline Phosphatase Total Protein Albumin Triglycerides Lipase Urine WBC (Auto) Urine Creatinine Urine Total Protein Crossmatch 02/19/20 02/19/20 02/19/20 14:00 15:07 17:40 WBC RBC Hgb Hct MCV MCHC RDW Plt Count Lymph % (Auto) Gem % (Auto) Lymph # Gem # Seg Neutrophils % Seg Neuts % (Manual) Lymphocytes % (Manual) Monocytes % (Manual) Nucleated RBC % Seg Neutrophils # Seg Neutrophils # Man Lymphocytes # (Manual) Monocytes # (Manual) Eosinophils # (Manual) PT INR APTT Heparin Anti-Xa Level ABG pH ABG pO2 ABG HCO3 ABG O2 Saturation ABG Base Excess ABG Hemoglobin Oxyhemoglobin Sodium Potassium Chloride Carbon Dioxide BUN Creatinine Glucose POC Glucose 324 H 328 H Calcium Phosphorus Magnesium Alkaline Phosphatase Total Protein Albumin Triglycerides Lipase Urine WBC (Auto) 166.0 H Urine Creatinine Urine Total Protein Crossmatch 02/19/20 02/20/20 02/20/20 23:40 03:15 03:15 WBC RBC Hgb Hct MCV MCHC RDW Plt Count Lymph % (Auto) Gem % (Auto) Lymph # Gem # Seg Neutrophils % Seg Neuts % (Manual) Lymphocytes % (Manual) Monocytes % (Manual) Nucleated RBC % Seg Neutrophils # Seg Neutrophils # Man Lymphocytes # (Manual) Monocytes # (Manual) Eosinophils # (Manual) PT INR APTT Heparin Anti-Xa Level 0.19 L ABG pH ABG pO2 ABG HCO3 ABG O2 Saturation ABG Base Excess ABG Hemoglobin Oxyhemoglobin Sodium Potassium 3.5 L D Chloride Carbon Dioxide 19 L BUN 85 H Creatinine 5.4 H Glucose 353 H POC Glucose 390 H Calcium 8.3 L Phosphorus 6.50 H Magnesium Alkaline Phosphatase Total Protein Albumin Triglycerides Lipase Urine WBC (Auto) Urine Creatinine Urine Total Protein Crossmatch 02/20/20 02/20/20 02/20/20 03:15 04:29 05:21 WBC 13.6 H RBC 2.43 L Hgb 7.1 L Hct 21.3 L D MCV MCHC RDW Plt Count 136 L Lymph % (Auto) Gem % (Auto) Lymph # Gem # Seg Neutrophils % Seg Neuts % (Manual) 81.0 H Lymphocytes % (Manual) 5.0 L Monocytes % (Manual) Nucleated RBC % Seg Neutrophils # Seg Neutrophils # Man 11.0 H Lymphocytes # (Manual) 0.7 L Monocytes # (Manual) Eosinophils # (Manual) PT INR APTT Heparin Anti-Xa Level ABG pH ABG pO2 ABG HCO3 ABG O2 Saturation ABG Base Excess -3.8 L ABG Hemoglobin 6.0 L Oxyhemoglobin 94.6 L Sodium Potassium Chloride Carbon Dioxide BUN Creatinine Glucose POC Glucose 400 H Calcium Phosphorus Magnesium Alkaline Phosphatase Total Protein Albumin Triglycerides Lipase Urine WBC (Auto) Urine Creatinine Urine Total Protein Crossmatch 02/20/20 02/20/20 02/20/20 11:52 18:30 20:02 WBC RBC Hgb Hct MCV MCHC RDW Plt Count Lymph % (Auto) Gem % (Auto) Lymph # Gem # Seg Neutrophils % Seg Neuts % (Manual) Lymphocytes % (Manual) Monocytes % (Manual) Nucleated RBC % Seg Neutrophils # Seg Neutrophils # Man Lymphocytes # (Manual) Monocytes # (Manual) Eosinophils # (Manual) PT INR APTT Heparin Anti-Xa Level ABG pH ABG pO2 ABG HCO3 ABG O2 Saturation ABG Base Excess ABG Hemoglobin Oxyhemoglobin Sodium Potassium Chloride Carbon Dioxide BUN Creatinine Glucose 584 H* POC Glucose 348 H 422 H Calcium Phosphorus Magnesium Alkaline Phosphatase Total Protein Albumin Triglycerides Lipase Urine WBC (Auto) Urine Creatinine Urine Total Protein Crossmatch 02/20/20 02/21/20 02/21/20 23:31 03:53 03:53 WBC RBC Hgb 5.9 L* Hct 18.5 L* MCV MCHC RDW Plt Count Lymph % (Auto) Gem % (Auto) Lymph # Gem # Seg Neutrophils % Seg Neuts % (Manual) Lymphocytes % (Manual) Monocytes % (Manual) Nucleated RBC % Seg Neutrophils # Seg Neutrophils # Man Lymphocytes # (Manual) Monocytes # (Manual) Eosinophils # (Manual) PT INR APTT Heparin Anti-Xa Level 1.13 H ABG pH ABG pO2 ABG HCO3 ABG O2 Saturation ABG Base Excess ABG Hemoglobin Oxyhemoglobin Sodium Potassium Chloride Carbon Dioxide BUN Creatinine Glucose POC Glucose 341 H Calcium Phosphorus Magnesium Alkaline Phosphatase Total Protein Albumin Triglycerides Lipase Urine WBC (Auto) Urine Creatinine Urine Total Protein Crossmatch 02/21/20 02/21/20 02/21/20 03:53 04:16 06:00 WBC RBC Hgb Hct MCV MCHC RDW Plt Count Lymph % (Auto) Gem % (Auto) Lymph # Gem # Seg Neutrophils % Seg Neuts % (Manual) Lymphocytes % (Manual) Monocytes % (Manual) Nucleated RBC % Seg Neutrophils # Seg Neutrophils # Man Lymphocytes # (Manual) Monocytes # (Manual) Eosinophils # (Manual) PT INR APTT Heparin Anti-Xa Level ABG pH 7.318 L ABG pO2 100.0 H ABG HCO3 ABG O2 Saturation ABG Base Excess -4.4 L ABG Hemoglobin 9.1 L Oxyhemoglobin Sodium 136 L Potassium Chloride 97.5 L Carbon Dioxide 21 L BUN 97 H Creatinine 5.3 H Glucose 246 H POC Glucose Calcium 8.1 L Phosphorus Magnesium Alkaline Phosphatase Total Protein Albumin Triglycerides Lipase Urine WBC (Auto) Urine Creatinine Urine Total Protein Crossmatch See Detail 02/21/20 02/21/20 02/21/20 06:32 11:45 17:40 WBC RBC Hgb Hct MCV MCHC RDW Plt Count Lymph % (Auto) Gem % (Auto) Lymph # Gem # Seg Neutrophils % Seg Neuts % (Manual) Lymphocytes % (Manual) Monocytes % (Manual) Nucleated RBC % Seg Neutrophils # Seg Neutrophils # Man Lymphocytes # (Manual) Monocytes # (Manual) Eosinophils # (Manual) PT INR APTT Heparin Anti-Xa Level ABG pH ABG pO2 ABG HCO3 ABG O2 Saturation ABG Base Excess ABG Hemoglobin Oxyhemoglobin Sodium Potassium Chloride Carbon Dioxide BUN Creatinine Glucose POC Glucose 317 H 389 H 387 H Calcium Phosphorus Magnesium Alkaline Phosphatase Total Protein Albumin Triglycerides Lipase Urine WBC (Auto) Urine Creatinine Urine Total Protein Crossmatch 02/21/20 02/22/20 02/22/20 23:37 03:16 03:16 WBC 22.8 H RBC 2.49 L Hgb 7.4 L Hct 22.7 L MCV MCHC RDW 15.6 H Plt Count Lymph % (Auto) Gem % (Auto) Lymph # Gem # Seg Neutrophils % Seg Neuts % (Manual) 74.0 H Lymphocytes % (Manual) 8.5 L Monocytes % (Manual) 13.5 H Nucleated RBC % 2.5 H Seg Neutrophils # Seg Neutrophils # Man 16.9 H Lymphocytes # (Manual) Monocytes # (Manual) 3.1 H Eosinophils # (Manual) 0.5 H PT INR APTT Heparin Anti-Xa Level 0.27 L ABG pH ABG pO2 ABG HCO3 ABG O2 Saturation ABG Base Excess ABG Hemoglobin Oxyhemoglobin Sodium Potassium Chloride Carbon Dioxide BUN Creatinine Glucose POC Glucose 297 H Calcium Phosphorus Magnesium Alkaline Phosphatase Total Protein Albumin Triglycerides Lipase Urine WBC (Auto) Urine Creatinine Urine Total Protein Crossmatch 02/22/20 02/22/20 02/22/20 03:16 05:16 11:50 WBC RBC Hgb Hct MCV MCHC RDW Plt Count Lymph % (Auto) Gem % (Auto) Lymph # Gem # Seg Neutrophils % Seg Neuts % (Manual) Lymphocytes % (Manual) Monocytes % (Manual) Nucleated RBC % Seg Neutrophils # Seg Neutrophils # Man Lymphocytes # (Manual) Monocytes # (Manual) Eosinophils # (Manual) PT INR APTT Heparin Anti-Xa Level ABG pH ABG pO2 ABG HCO3 ABG O2 Saturation ABG Base Excess ABG Hemoglobin Oxyhemoglobin Sodium 135 L Potassium Chloride 95.2 L Carbon Dioxide BUN 83 H Creatinine 4.3 H Glucose 264 H POC Glucose 321 H 351 H Calcium 8.1 L Phosphorus 4.60 H Magnesium Alkaline Phosphatase Total Protein Albumin Triglycerides Lipase Urine WBC (Auto) Urine Creatinine Urine Total Protein Crossmatch 02/22/20 02/23/20 02/23/20 17:26 00:04 02:55 WBC 25.6 H RBC 1.86 L Hgb 5.7 L* Hct 17.3 L* MCV MCHC RDW 16.0 H Plt Count Lymph % (Auto) Gem % (Auto) Lymph # Gem # Seg Neutrophils % Seg Neuts % (Manual) 80.5 H Lymphocytes % (Manual) 9.5 L Monocytes % (Manual) Nucleated RBC % 1.0 H Seg Neutrophils # Seg Neutrophils # Man 20.6 H Lymphocytes # (Manual) Monocytes # (Manual) 1.5 H Eosinophils # (Manual) PT INR APTT Heparin Anti-Xa Level ABG pH ABG pO2 ABG HCO3 ABG O2 Saturation ABG Base Excess ABG Hemoglobin Oxyhemoglobin Sodium Potassium Chloride Carbon Dioxide BUN Creatinine Glucose POC Glucose 356 H 359 H Calcium Phosphorus Magnesium Alkaline Phosphatase Total Protein Albumin Triglycerides Lipase Urine WBC (Auto) Urine Creatinine Urine Total Protein Crossmatch 02/23/20 02/23/20 02/23/20 02:55 02:55 05:33 WBC RBC Hgb Hct MCV MCHC RDW Plt Count Lymph % (Auto) Gem % (Auto) Lymph # Gem # Seg Neutrophils % Seg Neuts % (Manual) Lymphocytes % (Manual) Monocytes % (Manual) Nucleated RBC % Seg Neutrophils # Seg Neutrophils # Man Lymphocytes # (Manual) Monocytes # (Manual) Eosinophils # (Manual) PT INR APTT Heparin Anti-Xa Level 0.15 L ABG pH ABG pO2 ABG HCO3 ABG O2 Saturation ABG Base Excess ABG Hemoglobin Oxyhemoglobin Sodium 130 L Potassium Chloride 92.8 L Carbon Dioxide BUN 94 H Creatinine 4.7 H Glucose 293 H POC Glucose 330 H Calcium Phosphorus Magnesium Alkaline Phosphatase Total Protein Albumin Triglycerides Lipase Urine WBC (Auto) Urine Creatinine Urine Total Protein Crossmatch 02/23/20 02/23/20 02/23/20 12:03 13:13 18:34 WBC 24.2 H RBC 2.61 L Hgb 8.3 L Hct 24.4 L D MCV MCHC RDW Plt Count 125 L Lymph % (Auto) Gem % (Auto) Lymph # Gem # Seg Neutrophils % Seg Neuts % (Manual) Lymphocytes % (Manual) Monocytes % (Manual) Nucleated RBC % Seg Neutrophils # Seg Neutrophils # Man Lymphocytes # (Manual) Monocytes # (Manual) Eosinophils # (Manual) PT INR APTT Heparin Anti-Xa Level ABG pH ABG pO2 ABG HCO3 ABG O2 Saturation ABG Base Excess ABG Hemoglobin Oxyhemoglobin Sodium Potassium Chloride Carbon Dioxide BUN Creatinine Glucose POC Glucose 310 H 337 H Calcium Phosphorus Magnesium Alkaline Phosphatase Total Protein Albumin Triglycerides Lipase Urine WBC (Auto) Urine Creatinine Urine Total Protein Crossmatch 02/23/20 02/24/20 02/24/20 22:28 05:25 05:40 WBC 21.0 H RBC 2.40 L Hgb 7.3 L Hct 23.4 L MCV MCHC RDW 15.8 H Plt Count 120 L Lymph % (Auto) Gem % (Auto) Lymph # Gem # Seg Neutrophils % Seg Neuts % (Manual) 87.0 H Lymphocytes % (Manual) 5.0 L Monocytes % (Manual) Nucleated RBC % 1.0 H Seg Neutrophils # Seg Neutrophils # Man 18.3 H Lymphocytes # (Manual) 1.1 L Monocytes # (Manual) 1.1 H Eosinophils # (Manual) PT INR APTT Heparin Anti-Xa Level ABG pH ABG pO2 ABG HCO3 ABG O2 Saturation ABG Base Excess ABG Hemoglobin Oxyhemoglobin Sodium Potassium Chloride Carbon Dioxide BUN Creatinine Glucose POC Glucose 314 H 307 H Calcium Phosphorus Magnesium Alkaline Phosphatase Total Protein Albumin Triglycerides Lipase Urine WBC (Auto) Urine Creatinine Urine Total Protein Crossmatch 02/24/20 02/24/20 02/24/20 05:40 09:05 12:11 WBC RBC Hgb Hct MCV MCHC RDW Plt Count Lymph % (Auto) Gem % (Auto) Lymph # Gem # Seg Neutrophils % Seg Neuts % (Manual) Lymphocytes % (Manual) Monocytes % (Manual) Nucleated RBC % Seg Neutrophils # Seg Neutrophils # Man Lymphocytes # (Manual) Monocytes # (Manual) Eosinophils # (Manual) PT INR APTT Heparin Anti-Xa Level ABG pH ABG pO2 ABG HCO3 ABG O2 Saturation ABG Base Excess ABG Hemoglobin Oxyhemoglobin Sodium 123 L D 134 L D Potassium 6.8 H* D Chloride 88.1 L 96 L Carbon Dioxide 19 L BUN 83 H 89 H Creatinine 3.9 H 4.2 H Glucose 657 H* 262 H POC Glucose 217 H Calcium 8.1 L Phosphorus 4.90 H Magnesium 2.50 H Alkaline Phosphatase Total Protein Albumin Triglycerides Lipase Urine WBC (Auto) Urine Creatinine Urine Total Protein Crossmatch 02/24/20 02/24/20 02/25/20 17:58 23:23 05:25 WBC 25.3 H RBC 2.59 L Hgb 8.1 L Hct 23.9 L MCV MCHC RDW Plt Count Lymph % (Auto) Gem % (Auto) Lymph # Gem # Seg Neutrophils % Seg Neuts % (Manual) 87.0 H Lymphocytes % (Manual) 6.0 L Monocytes % (Manual) Nucleated RBC % Seg Neutrophils # Seg Neutrophils # Man 22.0 H Lymphocytes # (Manual) Monocytes # (Manual) 1.5 H Eosinophils # (Manual) PT INR APTT Heparin Anti-Xa Level ABG pH ABG pO2 ABG HCO3 ABG O2 Saturation ABG Base Excess ABG Hemoglobin Oxyhemoglobin Sodium Potassium Chloride Carbon Dioxide BUN Creatinine Glucose POC Glucose 236 H 223 H Calcium Phosphorus Magnesium Alkaline Phosphatase Total Protein Albumin Triglycerides Lipase Urine WBC (Auto) Urine Creatinine Urine Total Protein Crossmatch 02/25/20 02/25/20 02/25/20 05:25 05:40 11:47 WBC RBC Hgb Hct MCV MCHC RDW Plt Count Lymph % (Auto) Gem % (Auto) Lymph # Gem # Seg Neutrophils % Seg Neuts % (Manual) Lymphocytes % (Manual) Monocytes % (Manual) Nucleated RBC % Seg Neutrophils # Seg Neutrophils # Man Lymphocytes # (Manual) Monocytes # (Manual) Eosinophils # (Manual) PT INR APTT Heparin Anti-Xa Level ABG pH ABG pO2 ABG HCO3 ABG O2 Saturation ABG Base Excess ABG Hemoglobin Oxyhemoglobin Sodium 132 L Potassium Chloride 94.9 L Carbon Dioxide BUN 100 H Creatinine 4.9 H Glucose 174 H POC Glucose 173 H 154 H Calcium Phosphorus Magnesium Alkaline Phosphatase Total Protein 5.0 L Albumin 2.3 L Triglycerides Lipase Urine WBC (Auto) Urine Creatinine Urine Total Protein Crossmatch 02/25/20 02/25/20 02/26/20 17:53 23:49 05:00 WBC 16.2 H RBC 2.36 L Hgb 7.4 L Hct 22.0 L MCV MCHC RDW 15.5 H Plt Count Lymph % (Auto) 7.8 L Gem % (Auto) 8.5 H Lymph # Gem # 1.4 H Seg Neutrophils % 83.1 H Seg Neuts % (Manual) Lymphocytes % (Manual) Monocytes % (Manual) Nucleated RBC % Seg Neutrophils # 13.5 H Seg Neutrophils # Man Lymphocytes # (Manual) Monocytes # (Manual) Eosinophils # (Manual) PT INR APTT Heparin Anti-Xa Level ABG pH ABG pO2 ABG HCO3 ABG O2 Saturation ABG Base Excess ABG Hemoglobin Oxyhemoglobin Sodium Potassium Chloride Carbon Dioxide BUN Creatinine Glucose POC Glucose 131 H 124 H Calcium Phosphorus Magnesium Alkaline Phosphatase Total Protein Albumin Triglycerides Lipase Urine WBC (Auto) Urine Creatinine Urine Total Protein Crossmatch 02/26/20 02/26/20 02/26/20 05:00 17:25 23:19 WBC RBC Hgb Hct MCV MCHC RDW Plt Count Lymph % (Auto) Gem % (Auto) Lymph # Gem # Seg Neutrophils % Seg Neuts % (Manual) Lymphocytes % (Manual) Monocytes % (Manual) Nucleated RBC % Seg Neutrophils # Seg Neutrophils # Man Lymphocytes # (Manual) Monocytes # (Manual) Eosinophils # (Manual) PT INR APTT Heparin Anti-Xa Level ABG pH ABG pO2 ABG HCO3 ABG O2 Saturation ABG Base Excess ABG Hemoglobin Oxyhemoglobin Sodium Potassium Chloride Carbon Dioxide BUN 74 H Creatinine 4.1 H Glucose POC Glucose 123 H 130 H Calcium Phosphorus Magnesium Alkaline Phosphatase Total Protein Albumin Triglycerides Lipase Urine WBC (Auto) Urine Creatinine Urine Total Protein Crossmatch 02/27/20 02/27/20 02/27/20 05:40 11:55 18:17 WBC RBC Hgb Hct MCV MCHC RDW Plt Count Lymph % (Auto) Gem % (Auto) Lymph # Gem # Seg Neutrophils % Seg Neuts % (Manual) Lymphocytes % (Manual) Monocytes % (Manual) Nucleated RBC % Seg Neutrophils # Seg Neutrophils # Man Lymphocytes # (Manual) Monocytes # (Manual) Eosinophils # (Manual) PT INR APTT Heparin Anti-Xa Level ABG pH ABG pO2 ABG HCO3 ABG O2 Saturation ABG Base Excess ABG Hemoglobin Oxyhemoglobin Sodium Potassium Chloride Carbon Dioxide BUN Creatinine Glucose POC Glucose 203 H 297 H 317 H Calcium Phosphorus Magnesium Alkaline Phosphatase Total Protein Albumin Triglycerides Lipase Urine WBC (Auto) Urine Creatinine Urine Total Protein Crossmatch 02/27/20 02/28/20 02/28/20 23:55 05:22 09:25 WBC 15.1 H RBC 2.37 L Hgb 7.3 L Hct 22.6 L MCV MCHC RDW 16.6 H Plt Count Lymph % (Auto) Gem % (Auto) Lymph # Gem # Seg Neutrophils % Seg Neuts % (Manual) Lymphocytes % (Manual) Monocytes % (Manual) Nucleated RBC % Seg Neutrophils # Seg Neutrophils # Man Lymphocytes # (Manual) Monocytes # (Manual) Eosinophils # (Manual) PT INR APTT Heparin Anti-Xa Level ABG pH ABG pO2 ABG HCO3 ABG O2 Saturation ABG Base Excess ABG Hemoglobin Oxyhemoglobin Sodium Potassium Chloride Carbon Dioxide BUN Creatinine Glucose POC Glucose 371 H 380 H Calcium Phosphorus Magnesium Alkaline Phosphatase Total Protein Albumin Triglycerides Lipase Urine WBC (Auto) Urine Creatinine Urine Total Protein Crossmatch 02/28/20 02/28/20 02/28/20 09:25 12:16 17:57 WBC RBC Hgb Hct MCV MCHC RDW Plt Count Lymph % (Auto) Gem % (Auto) Lymph # Gem # Seg Neutrophils % Seg Neuts % (Manual) Lymphocytes % (Manual) Monocytes % (Manual) Nucleated RBC % Seg Neutrophils # Seg Neutrophils # Man Lymphocytes # (Manual) Monocytes # (Manual) Eosinophils # (Manual) PT INR APTT Heparin Anti-Xa Level ABG pH ABG pO2 ABG HCO3 ABG O2 Saturation ABG Base Excess ABG Hemoglobin Oxyhemoglobin Sodium Potassium Chloride Carbon Dioxide 18 L BUN 105 H Creatinine 5.9 H Glucose 370 H POC Glucose 450 H 378 H Calcium 8.2 L Phosphorus Magnesium Alkaline Phosphatase Total Protein Albumin Triglycerides Lipase Urine WBC (Auto) Urine Creatinine Urine Total Protein Crossmatch 02/28/20 02/28/20 02/29/20 21:44 23:45 05:26 WBC RBC Hgb Hct MCV MCHC RDW Plt Count Lymph % (Auto) Gem % (Auto) Lymph # Gem # Seg Neutrophils % Seg Neuts % (Manual) Lymphocytes % (Manual) Monocytes % (Manual) Nucleated RBC % Seg Neutrophils # Seg Neutrophils # Man Lymphocytes # (Manual) Monocytes # (Manual) Eosinophils # (Manual) PT INR APTT Heparin Anti-Xa Level ABG pH ABG pO2 ABG HCO3 ABG O2 Saturation ABG Base Excess ABG Hemoglobin Oxyhemoglobin Sodium Potassium Chloride Carbon Dioxide BUN Creatinine Glucose POC Glucose 345 H 353 H 308 H Calcium Phosphorus Magnesium Alkaline Phosphatase Total Protein Albumin Triglycerides Lipase Urine WBC (Auto) Urine Creatinine Urine Total Protein Crossmatch 02/29/20 02/29/20 02/29/20 12:03 18:17 21:46 WBC RBC Hgb Hct MCV MCHC RDW Plt Count Lymph % (Auto) Gem % (Auto) Lymph # Gem # Seg Neutrophils % Seg Neuts % (Manual) Lymphocytes % (Manual) Monocytes % (Manual) Nucleated RBC % Seg Neutrophils # Seg Neutrophils # Man Lymphocytes # (Manual) Monocytes # (Manual) Eosinophils # (Manual) PT INR APTT Heparin Anti-Xa Level ABG pH ABG pO2 ABG HCO3 ABG O2 Saturation ABG Base Excess ABG Hemoglobin Oxyhemoglobin Sodium Potassium Chloride Carbon Dioxide BUN Creatinine Glucose POC Glucose 236 H 238 H 217 H Calcium Phosphorus Magnesium Alkaline Phosphatase Total Protein Albumin Triglycerides Lipase Urine WBC (Auto) Urine Creatinine Urine Total Protein Crossmatch 02/29/20 03/01/20 03/01/20 23:34 05:59 10:00 WBC 17.0 H RBC 1.91 L Hgb 5.9 L* Hct 18.9 L* MCV 99 H MCHC RDW 17.2 H Plt Count Lymph % (Auto) 5.2 L Gem % (Auto) Lymph # 0.9 L Gem # 1.1 H Seg Neutrophils % 86.5 H Seg Neuts % (Manual) Lymphocytes % (Manual) Monocytes % (Manual) Nucleated RBC % Seg Neutrophils # 14.7 H Seg Neutrophils # Man Lymphocytes # (Manual) Monocytes # (Manual) Eosinophils # (Manual) PT INR APTT Heparin Anti-Xa Level ABG pH ABG pO2 ABG HCO3 ABG O2 Saturation ABG Base Excess ABG Hemoglobin Oxyhemoglobin Sodium Potassium Chloride Carbon Dioxide BUN Creatinine Glucose POC Glucose 159 H 195 H Calcium Phosphorus Magnesium Alkaline Phosphatase Total Protein Albumin Triglycerides Lipase Urine WBC (Auto) Urine Creatinine Urine Total Protein Crossmatch 03/01/20 03/01/20 03/01/20 10:00 10:00 12:28 WBC RBC Hgb Hct MCV MCHC RDW Plt Count Lymph % (Auto) Gem % (Auto) Lymph # Gem # Seg Neutrophils % Seg Neuts % (Manual) Lymphocytes % (Manual) Monocytes % (Manual) Nucleated RBC % Seg Neutrophils # Seg Neutrophils # Man Lymphocytes # (Manual) Monocytes # (Manual) Eosinophils # (Manual) PT INR APTT Heparin Anti-Xa Level ABG pH ABG pO2 ABG HCO3 ABG O2 Saturation ABG Base Excess ABG Hemoglobin Oxyhemoglobin Sodium 147 H Potassium Chloride 107.7 H Carbon Dioxide 14 L 14 L BUN 134 H 133 H Creatinine 7.7 H 7.3 H Glucose 139 H 147 H POC Glucose 160 H Calcium 8.0 L 8.0 L Phosphorus 10.20 H Magnesium Alkaline Phosphatase Total Protein 4.7 L Albumin 2.3 L Triglycerides Lipase Urine WBC (Auto) Urine Creatinine Urine Total Protein Crossmatch 03/01/20 03/01/20 15:30 17:37 WBC RBC Hgb Hct MCV MCHC RDW Plt Count Lymph % (Auto) Gem % (Auto) Lymph # Gem # Seg Neutrophils % Seg Neuts % (Manual) Lymphocytes % (Manual) Monocytes % (Manual) Nucleated RBC % Seg Neutrophils # Seg Neutrophils # Man Lymphocytes # (Manual) Monocytes # (Manual) Eosinophils # (Manual) PT INR APTT Heparin Anti-Xa Level ABG pH ABG pO2 ABG HCO3 ABG O2 Saturation ABG Base Excess ABG Hemoglobin Oxyhemoglobin Sodium Potassium Chloride Carbon Dioxide BUN Creatinine Glucose POC Glucose 125 H Calcium Phosphorus Magnesium Alkaline Phosphatase Total Protein Albumin Triglycerides Lipase Urine WBC (Auto) Urine Creatinine Urine Total Protein Crossmatch See Detail Chest x-ray: report reviewed, image reviewed (small L effusion)
[2020-03-02] MEDS: METOPROLOL TARTRATE 50 MG TAB PO SCH (05:16)
[2020-03-02 06:32] LABS: Basophils # (Auto) 0.1 K/mm3 (0.0-0.1); Basophils % (Auto) 0.5 % (0.0-1.8); Eosinophils # (Auto) 0.1 K/mm3 (0.0-0.4); Eosinophils % (Auto) 0.5 % (0.0-4.3); Hematocrit 23.9 % (30.3-42.9); Hemoglobin 7.9 gm/dl (10.1-14.3); Lymphocytes % (Auto) 9.2 % (13.4-35.0); Mean Corpuscular HGB Conc 33 % (30-34); Mean Corpuscular Volume 90 fl (79-97); Monocytes # (Auto) 0.7 K/mm3 (0.0-0.8); Monocytes % (Auto) 6.8 % (0.0-7.3); Platelet Count 196 K/mm3 (140-440); Red Blood Count 2.67 M/mm3 (3.65-5.03); Red Cell Distribution Width 16.5 % (13.2-15.2)
[2020-03-02 06:46] LABS: Calcium 8.5 mg/dL (8.4-10.2)
[2020-03-02] MEDS: INSULIN LISPRO 100 UNIT/ML SUB-Q SCH ×2 (06:51→14:17)
[2020-03-02] MEDS: fentaNYL 100 MCG/2 ML INJ IV PRN (08:00)
--- NOTE | 2020-03-02 08:38 | Progress Note ---
Assessment and Plan Assessment and plan: --Trejo PCR negative x 2 [02/24 and 03/01] --Hypokalemia; replenish with KCl and monitor levels --Anemia; requiring multiple units of PRBC, total 6 units transfusion Hb low stable, monitor H&H and transfuse additional PRBC as needed --Sepsis Gram-positive cocci bacteremia; staph epidermidis Evaluated by ID recommend removal or exchange of PICC line and hemodialysis access, Dialysis access removed, PICC line removed, follow repeat cultures continue antibiotics ID following --Uncontrolled diabetes Mellitus type 2: Slightly improved Increase Lantus 25 units subcu twice daily Accucheks and SSC, --Acute hypoxic resp failure: On ventilatory support unable to wean Wean as tolerated and extubate, pulmonary critical following --Atrial fibrillation; rate controlled continue metoprolol and amiodarone Chronic anticoagulation Eliquis started, monitor for any bleeding --Sepsis: due to ischemic bowel. Completed antibiotics, ID surgery following --Peritonitis :secondary to ischemia/gangrene of Small bowel and Cecum. s/p Exploratory laparotomy, extensive small bowel resection, partial colon re section, placement of abthera vac on 02/13/2020. S/p exploratory laparotomy, enterocolonic anastamosis, closure of abdomen, application of wound vac on 02/15 --UTI : Completed antibiotics per ID. --C. difficile colitis. [Positive C. difficile test] contact isolation,s/p oral vancomycin --Diarrhea: resolved prior to presentation, doubt C diff, likely from ischemic bowel. --Presumed infected renal cyst. ID following --Hyponatremia; closely monitor electrolytes, mild improvement, resolved --LITZY on CKD: Renally adjust antibiotics, hemodialysis as needed nephrology following --Severe protein calorie malnutrition; nutrition supplements, Supportive care --Right saphenous vein DVT.s/p Eliquis 02/18/2020. Patient still with oral ETT on mechanical ventilation. Patient currently with PSVT trials, FiO2 30% pressure support 12 and PEEP 6. Continue to wean as tolerated. Consider extubation today. However, chest x-ray today reveals developing right pleural effusion. Continue wound care per wound team. Continue incisional wound VAC. Continue strict n.p.o. and NGT to low intermittent suction. Continue IV antibiotics per ID 02/19/2020. Patient currently with AC mode ventilation rate 16, tidal volume 450, FiO2 30%, PEEP 6. Continue to wean per protocol and pulmonary recommendat ions. Patient failed PSV secondary to tachypnea today. Continue wound care per wound team. Continue incisional wound VAC. Continue strict n.p.o. and NGT to low intermittent suction. Continue IV antibiotics per ID. Creatinine stable today at 5.1/5.2 and remains non-oliguric; no indication for renal replacement therapy emergently per nephrology. Nephrology to administer 100 mg of IV Lasix today to further promote diuresis and help with metabolic acidosis. Remains at high risk for needing renal replacement therapy 02/20/2020. Patient currently with AC mode ventilation rate 16, tidal volume 450, FiO2 30%, PEEP 6. Continue to wean per protocol and pulmonary recommendations. Patient failed PSV trials. Patient with right lower extremity DVT. Continue anticoagulation which patient is currently on. Patient also with C. difficile colitis/C. difficile positive. We will start p.o. vancomycin. Acute kidney injury on CKD continues to worsen. Therefore, patient will likely need hemodialysis. Defer to nephrology. 02/21/2020. Patient remains on mechanical ventilation AC mode, rate 16, tidal volume 450, FiO2 30%. Continue weaning per protocol. 2 units PRBCs ordered stat for severe anemia. Follow-up CBC posttransfusion. Patient currently on anticoagulation for right lower extremity DVT. Continue wound care. BG elevated in the 300s. We will start Lantus 10 units at bedtime. 02/22/2020. Patient remains on mechanical ventilation AC mode rate 16, tidal volume 450 and FiO2 30%. Continue PSV trials urine culture found to be negative. Continue p.o. vancomycin for C. difficile. Continue cefepime, Flagyl and fluconazole for sepsis/peritonitis. Blood cultures thus far negative. Patient s/p PRBCs for severe anemia. Hemoglobin stable at 7.4. Follow-up CBC in a.m. Patient currently on anticoagulation for right lower extremity DVT. 02/23/20. Anticoagulation for A. fib currently on hold due to anemia. Patient is s/p PRBCs. We will follow-up H&H. Continue to feed via NG tube and advance as tolerated. Continue TPN until patient tolerating tube feeding at goal. Continue wound VAC and monitor drainage. With regards her renal function, LITZY on CKD 3--with ATN, hemodialysis per nephrology. S/p IV Lasix 100mg yesterday with ~1L urine output; will administer another high dose IV lasix bolus on non- HD days to encourage ongoing volume removal and minimize HD UF needs. Continue antibiotics per ID. Leukocytosis likely secondary to UTI. CT C/A/P 02/19/20 - post operative changes of right colon. Anastamosis is intact. Generalized edema of abdominal wall. Urine and blood cultures were found to be negative. 02/24/20; on vent PSV, CPAP mode, wean as tolerated and extubate, transition TPN to full dose tube feeding, no HD today 02/25/20: Worsening leukocytosis, multifactorial secondary to UTI, C. difficile colitis On oral vancomycin, ID following, 02/26/20; patient is febrile, has gram-positive cocci bacteremia, continue current antibiotics, ID following 02/27/20: Patient has persistent fevers, continue empiric antibiotics follow cultures 02/28/20: Blood sugars are uncontrolled as insulin was held, add Lantus 10 units subcu twice a day, afebrile this morning 02/29/20:Staph epidermidis 2 out of 2,ID recommend removal or exchange of PICC and HD access Blood sugars moderate control, increase Lantus to 25 units twice a day closely monitor 02/28/20: Wean as tolerated and extubate, clinically no change, afebrile 03/01/20: Hemoglobin dropped to 5.9, transfused 2 units of PRBC, closely monitor 03/02/20; received 2 units PRBC significant improvement of H&H, blood sugars well controlled COVID-19 test negative x 2 The high probability of a clinically significant, sudden or life threatening deterioration of the [respiratory] system(s) required my full and direct attention, intervention and personal management. The aggregate critical care time was [33] minutes. This time is in addition to time spent performing reported procedures but includes the following: [x] Data Review and interpretation [x] Patient assessment and monitoring of vital signs [x] Documentation [x] Medication orders and management Hospitalist Physical - Constitutional Vitals: Temp Pulse Resp BP Pulse Ox 98.2 F 80 26 H 142/69 100 03/02/20 08:00 03/02/20 08:00 03/02/20 08:00 03/02/20 08:00 03/02/20 08:00 General appearance: Present: no acute distress, well-nourished, obese, other (Intubated, on vent) HEART Score - HEART Score Troponin: Troponin T < 0.010 ng/mL (0.00-0.029) 02/11/20 15:27 Results - Labs CBC & Chem 7: 03/02/20 05:22 03/02/20 05:22 Labs: Laboratory Last Values WBC 10.8 K/mm3 (4.5-11.0) 03/02/20 05:22 RBC 2.67 M/mm3 (3.65-5.03) L 03/02/20 05:22 Hgb 7.9 gm/dl (10.1-14.3) L 03/02/20 05:22 Hct 23.9 % (30.3-42.9) L 03/02/20 05:22 MCV 90 fl (79-97) 03/02/20 05:22 MCH 30 pg (28-32) 03/02/20 05:22 MCHC 33 % (30-34) 03/02/20 05:22 RDW 16.5 % (13.2-15.2) H 03/02/20 05:22 Plt Count 196 K/mm3 (140-440) 03/02/20 05:22 Lymph % (Auto) 9.2 % (13.4-35.0) L 03/02/20 05:22 Winn % (Auto) 6.8 % (0.0-7.3) 03/02/20 05:22 Eos % (Auto) 0.5 % (0.0-4.3) 03/02/20 05:22 Baso % (Auto) 0.5 % (0.0-1.8) 03/02/20 05:22 Lymph # 1.0 K/mm3 (1.2-5.4) L 03/02/20 05:22 Winn # 0.7 K/mm3 (0.0-0.8) 03/02/20 05:22 Eos # 0.1 K/mm3 (0.0-0.4) 03/02/20 05:22 Baso # 0.1 K/mm3 (0.0-0.1) 03/02/20 05:22 Add Manual Diff Complete 02/25/20 05:25 Total Counted 100 02/25/20 05:25 Seg Neutrophils % 83.0 % (40.0-70.0) H 03/02/20 05:22 Seg Neuts % (Manual) 87.0 % (40.0-70.0) H 02/25/20 05:25 Band Neutrophils % 1.0 % 02/25/20 05:25 Lymphocytes % (Manual) 6.0 % (13.4-35.0) L 02/25/20 05:25 Reactive Lymphs % (Man) 0 % 02/25/20 05:25 Monocytes % (Manual) 6.0 % (0.0-7.3) 02/25/20 05:25 Eosinophils % (Manual) 0 % (0.0-4.3) 02/25/20 05:25 Basophils % (Manual) 0 % (0.0-1.8) 02/25/20 05:25 Metamyelocytes % 0 % 02/25/20 05:25 Myelocytes % 0 % 02/25/20 05:25 Promyelocytes % 0 % 02/25/20 05:25 Blast Cells % 0 % 02/25/20 05:25 Nucleated RBC % Not Reportable 02/25/20 05:25 Seg Neutrophils # 9.0 K/mm3 (1.8-7.7) H 03/02/20 05:22 Seg Neutrophils # Man 22.0 K/mm3 (1.8-7.7) H 02/25/20 05:25 Band Neutrophils # 0.3 K/mm3 02/25/20 05:25 Lymphocytes # (Manual) 1.5 K/mm3 (1.2-5.4) 02/25/20 05:25 Abs React Lymphs (Man) 0.0 K/mm3 02/25/20 05:25 Monocytes # (Manual) 1.5 K/mm3 (0.0-0.8) H 02/25/20 05:25 Eosinophils # (Manual) 0.0 K/mm3 (0.0-0.4) 02/25/20 05:25 Basophils # (Manual) 0.0 K/mm3 (0.0-0.1) 02/25/20 05:25 Metamyelocytes # 0.0 K/mm3 02/25/20 05:25 Myelocytes # 0.0 K/mm3 02/25/20 05:25 Promyelocytes # 0.0 K/mm3 02/25/20 05:25 Blast Cells # 0.0 K/mm3 02/25/20 05:25 WBC Morphology Not Reportable 02/25/20 05:25 Hypersegmented Neuts Not Reportable 02/25/20 05:25 Hyposegmented Neuts Not Reportable 02/25/20 05:25 Hypogranular Neuts Not Reportable 02/25/20 05:25 Smudge Cells Not Reportable 02/25/20 05:25 Toxic Granulation Not Reportable 02/25/20 05:25 Toxic Vacuolation Not Reportable 02/25/20 05:25 Dohle Bodies Not Reportable 02/25/20 05:25 Pelger-Huet Anomaly Not Reportable 02/25/20 05:25 Jyoti Rods Not Reportable 02/25/20 05:25 Platelet Estimate Consistent w auto 02/25/20 05:25 Clumped Platelets Not Reportable 02/25/20 05:25 Plt Clumps, EDTA Not Reportable 02/25/20 05:25 Large Platelets Not Reportable 02/25/20 05:25 Giant Platelets Not Reportable 02/25/20 05:25 Platelet Satelliting Not Reportable 02/25/20 05:25 Plt Morphology Comment Not Reportable 02/25/20 05:25 RBC Morphology Not Reportable 02/25/20 05:25 Dimorphic RBCs Not Reportable 02/25/20 05:25 Polychromasia Few 02/25/20 05:25 Hypochromasia Not Reportable 02/25/20 05:25 Poikilocytosis Not Reportable 02/25/20 05:25 Anisocytosis 1+ 02/25/20 05:25 Microcytosis Not Reportable 02/25/20 05:25 Macrocytosis Not Reportable 02/25/20 05:25 Spherocytes Not Reportable 02/25/20 05:25 Pappenheimer Bodies Not Reportable 02/25/20 05:25 Sickle Cells Not Reportable 02/25/20 05:25 Target Cells Not Reportable 02/25/20 05:25 Tear Drop Cells Not Reportable 02/25/20 05:25 Ovalocytes Not Reportable 02/25/20 05:25 Helmet Cells Not Reportable 02/25/20 05:25 [place] Bodies Not Reportable 02/25/20 05:25 [place] Rings Not Reportable 02/25/20 05:25 Andrea Cells Not Reportable 02/25/20 05:25 Bite Cells Not Reportable 02/25/20 05:25 Crenated Cell Not Reportable 02/25/20 05:25 Elliptocytes Not Reportable 02/25/20 05:25 Acanthocytes (Spur) Not Reportable 02/25/20 05:25 Rouleaux Not Reportable 02/25/20 05:25 Hemoglobin C Crystals Not Reportable 02/25/20 05:25 Schistocytes Not Reportable 02/25/20 05:25 Malaria parasites Not Reportable 02/25/20 05:25 Babar Bodies Not Reportable 02/25/20 05:25 Hem Pathologist Commnt No 02/25/20 05:25 PT 16.9 Sec. (12.2-14.9) H 02/13/20 20:10 INR 1.41 (0.87-1.13) H 02/13/20 20:10 APTT 35.3 Sec. (24.2-36.6) 02/13/20 20:10 Heparin Anti-Xa Level 0.15 U.I./ml (0.3-0.7) L 02/23/20 02:55 ABG pH 7.318 pH Units (7.350-7.450) L 02/21/20 04:16 ABG pCO2 42.7 mm Hg 02/21/20 04:16 ABG pO2 100.0 mm Hg (80.0-90.0) H 02/21/20 04:16 ABG HCO3 21.4 mmol/L (20.0-26.0) 02/21/20 04:16 ABG O2 Saturation 97.2 % (95.0-99.0) 02/21/20 04:16 ABG O2 Content 12.3 (0.0-44) 02/21/20 04:16 ABG Base Excess -4.4 mmol/L (-2.0-3.0) L 02/21/20 04:16 ABG Hemoglobin 9.1 gm/dl (12.0-16.0) L 02/21/20 04:16 ABG Carboxyhemoglobin 1.5 % (0.0-5.0) 02/21/20 04:16 ABG Methemoglobin 0.7 % (0.0-1.5) 02/21/20 04:16 Oxyhemoglobin 95.2 % (95.0-99.0) 02/21/20 04:16 FiO2 30 % 02/21/20 04:16 Sodium 145 mmol/L (137-145) 03/02/20 05:22 Potassium 3.2 mmol/L (3.6-5.0) L 03/02/20 05:22 Chloride 104.8 mmol/L (98-107) 03/02/20 05:22 Carbon Dioxide 25 mmol/L (22-30) D 03/02/20 05:22 Anion Gap 18 mmol/L 03/02/20 05:22 BUN 67 mg/dL (7-17) H 03/02/20 05:22 Creatinine 4.8 mg/dL (0.7-1.2) H 03/02/20 05:22 Estimated GFR 9 ml/min 03/02/20 05:22 BUN/Creatinine Ratio 14 % 03/02/20 05:22 Glucose 102 mg/dL (65-100) H 03/02/20 05:22 POC Glucose 99 (70-105) 03/02/20 05:37 Ketones Quantitative Negative (Negative) 02/13/20 14:51 Lactic Acid 0.70 mmol/L (0.7-2.0) 02/14/20 Unknown Calcium 8.5 mg/dL (8.4-10.2) 03/02/20 05:22 Phosphorus 10.20 mg/dL (2.5-4.5) H 03/01/20 10:00 Magnesium 2.30 mg/dL (1.7-2.3) 03/01/20 10:00 Total Bilirubin 0.30 mg/dL (0.1-1.2) 03/01/20 10:00 Direct Bilirubin < 0.2 mg/dL (0-0.2) 02/25/20 05:25 Indirect Bilirubin 0.1 mg/dL 02/25/20 05:25 AST 28 units/L (5-40) 03/01/20 10:00 ALT 29 units/L (7-56) 03/01/20 10:00 Alkaline Phosphatase 56 units/L (35-129) 03/01/20 10:00 Troponin T < 0.010 ng/mL (0.00-0.029) 02/11/20 15:27 Total Protein 4.7 g/dL (6.3-8.2) L 03/01/20 10:00 Albumin 2.3 g/dL (3.9-5) L 03/01/20 10:00 Albumin/Globulin Ratio 1.0 % 03/01/20 10:00 Triglycerides 238 mg/dL (2-149) H 02/17/20 03:45 Lipase 60 units/L (13-60) 02/13/20 14:51 Urine Color Yellow (Yellow) 02/19/20 14:00 Urine Turbidity Cloudy (Clear) 02/19/20 14:00 Urine pH 5.0 (5.0-7.0) 02/19/20 14:00 Ur Specific [place] 1.007 (1.003-1.030) 02/19/20 14:00 Urine Protein 100 mg/dl mg/dL (Negative) 02/19/20 14:00 Urine Glucose (UA) >=500 mg/dL (Negative) 02/19/20 14:00 Urine Ketones Tr mg/dL (Negative) 02/19/20 14:00 Urine Blood Lg (Negative) 02/19/20 14:00 Urine Nitrite Neg (Negative) 02/19/20 14:00 Urine Bilirubin Neg (Negative) 02/19/20 14:00 Urine Urobilinogen < 2.0 mg/dL (<2.0) 02/19/20 14:00 Ur Leukocyte Esterase Lg (Negative) 02/19/20 14:00 Urine WBC (Auto) 166.0 /HPF (0.0-6.0) H 02/19/20 14:00 Urine RBC (Auto) 20.0 /HPF (0.0-6.0) 02/19/20 14:00 U Epithel Cells (Auto) 2.0 /HPF (0-13.0) 02/19/20 14:00 Urine Bacteria (Auto) 1+ /HPF (Negative) 02/19/20 14:00 Urine WBC Clumps 3+ /HPF 02/19/20 14:00 Urine Mucus Few /HPF 02/19/20 14:00 Urine Yeast (Budding) 3+ /HPF 02/19/20 14:00 Urine Eosinophils None seen (None Seen) 02/12/20 Unknown Urine Creatinine 35.3 mg/dL (0.1-20.0) H 02/12/20 Unknown Protein/Creatinin Ratio 22.55 02/12/20 Unknown Urine Total Protein 796 mg/dL (5-11.8) H 02/12/20 Unknown Random Vancomycin 11.3 ug/mL (0-40.0) 02/28/20 09:25 C. difficile Tox (PCR) Positive (Negative) 02/19/20 12:46 Coronavirus (PCR) Negative (Negative) 03/01/20 Unknown Hepatitis A IgM Ab Non-reactive (NonReactive) 02/21/20 10:30 Hep Bs Antigen Non-reactive (Negative) 02/21/20 10:30 Hep B Core IgM Ab Non-reactive (NonReactive) 02/21/20 10:30 Hepatitis C Antibody Non-reactive (NonReactive) 02/21/20 10:30 Blood Type O NEGATIVE 03/01/20 15:30 Antibody Screen Negative 03/01/20 15:30 Crossmatch See Detail 03/01/20 15:30 Microbiology: Microbiology 02/27/20 19:25 Peripheral/Venous Blood Culture - Preliminary NO GROWTH AFTER 72 HOURS 02/27/20 18:50 Peripheral/Venous Blood Culture - Preliminary NO GROWTH AFTER 72 HOURS - Diagnostic Impressions Diagnostic Impressions: Echocardiogram 02/13/20 18:02 Transthoracic Echocardiogram Indication: Afib BP: 101/70 HR: 128 Findings Left Ventricle: The left ventricular chamber size is normal. Mild to moderate concentric left ventricular hypertrophy is observed. Global left ventricular wall motion and contractility are within normal limits. Global left ventricular systolic function is normal. The estimated ejection fraction is 60-65%. Left Atrium: The left atrium is mild to moderately dilated. Right Ventricle: The right ventricular cavity size is normal. The right ventricular global systolic function is normal. Right Atrium: The right atrium appears normal. The interatrial septum appears normal. Aortic Valve: The aortic valve structure is normal. The aortic valve leaflets are mildly thickened. There is no evidence of aortic regurgitation. There is no evidence of aortic stenosis. Mitral Valve: The mitral valve leaflets appear normal. There is no evidence of mitral regurgitation. There is no evidence of mitral stenosis. Tricuspid Valve: The tricuspid valve leaflets are normal. There is mild to moderate tricuspid regurgitation. The right ventricular systolic pressure is calculated at 39 mmHg. There is evidence of pulmonary hypertension. There is no tricuspid stenosis. Pulmonic Valve: The pulmonic valve appears normal. There is no evidence of pulmonic regurgitation. There is no pulmonic stenosis. Pericardium: A pericardial effusion is visualized. There is a minimial pericardial effusion. A left pleural effusion is present. There is a moderate pleural effusion. Aorta: There is no dilatation of the ascending aorta. There is no dilatation of the aortic arch. There is no dilatation of the descending thoracic aorta. There is no dilatation of the aortic root. Venous: The inferior vena cava appears normal in size. Measurements Chambers 2D Name Value Normal Range IVSd (2D) 1.34 cm (0.6 - 1.1) LVPWd (2D) 1.35 cm (0.6 - 1.1) LVIDd (2D) 4.72 cm (3.7 - 5.6) LVIDs (2D) 3.28 cm (2 - 3.8) LV FS (2D) 30.38 % - EF Teichholz (2D) 57.75 % - Ao root diameter (2D) 3.02 cm (2 - 3.7) Volumes/Mass Name Value Normal Range LA ESV SP 4CH (A/L) 55.87 ml - LA ESV SP 2CH (A/L) 67.65 ml - LA ESV BP (A/L) 63.67 ml - LA ESV SP 4CH (MOD) 54.25 ml - LA ESV SP 2CH (MOD) 63.2 ml - LA ESV BP (MOD) 60.49 ml - LA ESV BP (MOD) index 34.18 ml/m2 - LV EDV SP 4CH (MOD) 70.96 ml - LV ESV SP 4CH (MOD) 23.49 ml - EF SP 4CH (MOD) 66.89 % - LV EDV SP 2CH (MOD) 61.41 ml - LV ESV SP 2CH (MOD) 27.43 ml - EF SP 2CH (MOD) 55.33 % - LV EDV BP 69.85 ml - LV ESV BP 26.44 ml - BP EF (MOD) 62.14 % - Aortic Valve Name Value Normal Range AV Vmax 1.29 m/sec - AV VTI 18.56 cm - AV peak gradient 6.69 mmHg - AV mean gradient 3.39 mmHg - LVOT diameter 1.95 cm - LVOT Vmax 1.14 m/sec - LVOT VTI 16.24 cm - LVOT peak gradient 5.21 mmHg - LVOT mean gradient 2.04 mmHg - SV LVOT 48.71 ml - TABATHA (continuity Vmax) 2.65 cm2 - TABATHA (continuity VTI) 2.62 cm2 - Ascending Ao 2.96 cm - Tricuspid Valve Name Value Normal Range TR Vmax 2.47 m/sec - TR peak gradient 24 mmHg - RAP 15 mmHg - RVSP 39 mmHg - Pulmonic Valve/Qp:Qs Name Value Normal Range PV Vmax 1.15 m/sec - PV peak gradient 5.33 mmHg - PV acceleration time 68.51 msec - Acevedo/IV: Voiding Method Indwelling Catheter IV Catheter Type [Right Upper Mid-line arm] IV Catheter Type [Right trialysis catheter Internal Jugular] IV Catheter Type [Left Upper PICC Line arm] IV Catheter Type [Right INT / Saline Lock Antecubital] IV Catheter Type [Right Peripheral IV Forearm] IV Catheter Type [Left Forearm INT / Saline Lock ] IV Catheter Type [Right Hand] Peripheral IV Active Medications - Current Medications Current Medications: Generic Name Dose Route Start Last Admin Trade Name Freq PRN Reason Stop Dose Admin Acetaminophen 650 mg 02/11/20 19:01 02/27/20 12:00 Tylenol PO 650 mg Q4H PRN Administration Pain MILD(1-3)/Fever >100.5/ADAMS Amiodarone HCl 200 mg 02/24/20 10:00 03/01/20 10:23 Cordarone PO 200 mg QDAY NADER Administration Lipase/Protease/Amylase 1 each 02/20/20 10:[address] 10,500 Unit FEEDTUBE PRN PRN For Clogged Feeding Tube Apixaban 10 mg 02/26/20 12:00 03/01/20 22:42 Eliquis PO 03/03/20 22:01 10 mg Q12HR NADER Administration Protocol Apixaban 5 mg 03/04/20 10:00 Eliquis PO Q12HR NADER Protocol Dextrose 50 ml 02/19/20 14:58 D50w (25gm) Syringe IV Q30MIN PRN Hypoglycemia Protocol Famotidine 20 mg 02/24/20 10:00 03/01/20 10:23 Pepcid PO 20 mg DAILY NADER Administration Fentanyl 50 mcg 02/24/20 09:52 03/02/20 08:00 Sublimaze IV 50 mcg Q2HR PRN Administration Pain, Moderate (4-6) Hydrophilic Ointment 1 applic 02/13/20 19:41 Vaseline Lip Therapy TP Q2HR PRN Dry Lips Sodium Chloride 100 mls @ 999 mls/hr 02/22/20 12:30 Nacl 0.9% IV FABIOLA PRN Hypotension Sodium Chloride 500 mls @ 0 mls/hr 03/01/20 13:27 Nacl 0.9% 500 Ml IV ONCE NADER As Directed Vancomycin HCl 1 gm in 250 mls @ 167.007 mls/hr 03/03/20 22:00 Vancomycin/Ns 1 Gm/250 Ml IV 03/05/20 21:59 MoWeFr [facility] Insulin Glargine 25 units 02/29/20 10:00 03/01/20 23:34 Lantus SUB-Q 25 units BID [facility] Administration Insulin Human Lispro 0 unit 02/19/20 18:00 03/02/20 06:51 Humalog SUB-Q Not Given Q6HR [facility] Protocol Labetalol HCl 20 mg 02/13/20 18:00 03/02/20 05:16 Labetalol IV 20 mg Q4H PRN Administration SBP >150 Metoprolol Tartrate 2.5 mg 02/13/20 18:00 02/27/20 02:34 Metoprolol IV 2.5 mg Q6HR PRN Administration HR >130 Metoprolol Tartrate 50 mg 02/26/20 11:00 03/02/20 05:16 Metoprolol PO 50 mg Q8H NADER Administration Multi-Ingred Cream/Lotion/Oil/Oint 1 applic 02/13/20 19:41 Artificial Tears Ophth Oint OU Q4HR PRN Dry Eye(s) Potassium Chloride 60 meq 03/02/20 08:26 Potassium Chloride FEEDTUBE 03/02/20 08:27 ONCE ONE Sertraline HCl 50 mg 02/23/20 10:00 03/01/20 10:23 Zoloft PO 50 mg QDAY NADER Administration Simple Syrup 15 ml 02/20/20 10:28 Simple Syrup FEEDTUBE PRN PRN Hypoglycemia Simple Syrup 30 ml 02/20/20 10:28 Simple Syrup FEEDTUBE PRN PRN Hypoglycemia Sodium Bicarbonate 325 mg 02/20/20 10:28 Sodium Bicarbonate FEEDTUBE PRN PRN For Clogged Feeding Tube Sodium Chloride 10 ml 02/11/20 22:00 03/01/20 22:42 Sodium Chloride Flush Syringe 10 Ml IV 10 ml BID NADER Administration Sodium Chloride 10 ml 02/11/20 19:01 02/15/20 22:43 Sodium Chloride Flush Syringe 10 Ml IV 10 ml PRN PRN Administration LINE FLUSH Nutrition/Malnutrition Assess - Dietary Evaluation Nutrition/Malnutrition Findings: Nutrition Notes Start: 02/14/20 09:49 Freq: Status: Active Protocol: Document 02/27/20 11:30 LM (Rec: 02/27/20 11:33 LM [email or web address]) Nutrition Notes Initial or Follow up Reassessment Current Diagnosis Acute Kidney Injury,Decubitus( Pressure Ulcer),Diabetes, Hypertension,Hyperlipidemia Other Pertinent Diagnosis ischemic bowel with gangrene s /p exp lap, Current Diet Vital 1.2 at 50ml/hr Labs/Tests Reviewed Pertinent Medications Reviewed Height 5 ft 5 in Weight 96.2 kg [place] Body Weight (kg) 56.81 BMI 35.2 Weight change and time frame Wt change noted Weight Status Obese Subjective/Other Information Vital running at goal rate. Percent of energy/protein needs met: 100%/100% Burn Absent Trauma Absent Current % PO Negligible Minimum of two criteria No #2 Nutrition Diagnosis Inadequate oral intake Diagnosis Progress(for reassessment Continues documentation) Is patient on ventilator? Yes Is Patient Ambulatory and/or Out of Bed No REE-([facility]-confined to bed) 1755.492 Kcal/Kg value to use for calculation 15 Approximate Energy Requirements Using 1443 kcal/Kg Calculation Used for Recommendations Kcal/kg Additional Notes Pro needs 1.2-2g/k-140g/ day Fluid needs 1ml/kcal Nutrition Intervention Change Diet Order: Continue TF Nutrition Support: Vital 1.2 at 50ml/hr (goal rate) Flush with 100ml q4h Kcal 1,440 Protein (gm) 90 Fluid (mL) 966 Goal #1 Meet at least 75% of energy and protein needs Anticipated Discharge Needs: Unable to identify at this time Follow-Up By: 03/02/20 Additional Comments F/U for TF tolerance
[2020-03-02] MEDS: SERTRALINE 50 MG TAB PO SCH (09:36)
[2020-03-02] MEDS: APIXABAN 5 MG TAB PO SCH (09:36)
[2020-03-02] MEDS: FAMOTIDINE 20 MG TAB PO SCH (09:36)
[2020-03-02] MEDS: INSULIN GLARGINE 100 UNITS/ML SUB-Q SCH (09:37)
[2020-03-02] MEDS: AMIODARONE 200 MG TAB PO SCH (09:39)
[2020-03-02] MEDS ORDERED: POTASSIUM CHLORIDE 20 MEQ PACKET FEEDTUBE ONE (10:00)
--- NOTE | 2020-03-02 10:30 | Progress Note ---
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 cyst * leucocytosis * type 2 DM--uncontrolled Plan: * ivfs and iv abx * cr worse with met acidosis, add bicarb gtt * continue shot blaster until improvement in renal function * daily lytes and strict i/os * avoid nephrotoxins * ct noted, no stones or hydronephrosis * likely now with ATN, due to hypotension, cr worse * vasopressors prn Subjective Date of service: 03/02/20 Principal diagnosis: Ischemic Bowel Interval history: events noted Objective - Exam Narrative Exam: Gen: Intubated, sedated. NAD ENT: ETT in place. NGT with dark bilious output CV: s1, S2+ Afib with elevated rate Resp: on vent. No audible wheezes Abd: soft, NT, ND. Abthera vac in place with serosang drainage. No leak, good seal Ext: no c/c/e : corcoran with clear yellow urine - Vital Signs Vital signs: Vital Signs - 12hr 03/01/20 03/01/20 03/01/20 22:30 22:43 23:00 Temperature Pulse Rate 97 H 92 H 99 H Pulse Rate [ From Monitor] Pulse Rate [ Left Dorsalis Pedis] Pulse Rate [ Left Radial] Pulse Rate [ Right Dorsalis Pedis] Pulse Rate [ Right Radial] Respiratory 23 26 H Rate Blood Pressure 142/72 142/72 159/86 O2 Sat by Pulse 100 100 Oximetry 03/01/20 03/01/20 03/01/20 23:14 23:30 23:52 Temperature 99.4 F Pulse Rate 100 H 91 H Pulse Rate [ From Monitor] Pulse Rate [ Left Dorsalis Pedis] Pulse Rate [ Left Radial] Pulse Rate [ Right Dorsalis Pedis] Pulse Rate [ Right Radial] Respiratory 23 16 Rate Blood Pressure 159/86 176/97 O2 Sat by Pulse 100 100 Oximetry 03/02/20 03/02/20 03/02/20 00:00 00:23 00:30 Temperature Pulse Rate 86 86 88 Pulse Rate [ 89 From Monitor] Pulse Rate [ Left Dorsalis Pedis] Pulse Rate [ Left Radial] Pulse Rate [ Right Dorsalis Pedis] Pulse Rate [ Right Radial] Respiratory 21 21 Rate Blood Pressure 152/82 198/102 218/114 O2 Sat by Pulse 100 100 Oximetry 03/02/20 03/02/20 03/02/20 01:00 01:30 02:00 Temperature Pulse Rate 88 90 87 Pulse Rate [ From Monitor] Pulse Rate [ Left Dorsalis Pedis] Pulse Rate [ Left Radial] Pulse Rate [ Right Dorsalis Pedis] Pulse Rate [ Right Radial] Respiratory 20 20 22 Rate Blood Pressure 156/78 174/97 139/75 O2 Sat by Pulse 100 100 100 Oximetry 03/02/20 03/02/20 03/02/20 02:30 03:00 03:15 Temperature 98.4 F Pulse Rate 88 84 Pulse Rate [ From Monitor] Pulse Rate [ Left Dorsalis Pedis] Pulse Rate [ Left Radial] Pulse Rate [ Right Dorsalis Pedis] Pulse Rate [ Right Radial] Respiratory 21 21 Rate Blood Pressure 132/66 156/87 O2 Sat by Pulse 100 100 Oximetry 03/02/20 03/02/20 03/02/20 03:31 04:00 04:01 Temperature Pulse Rate 88 88 88 Pulse Rate [ 86 From Monitor] Pulse Rate [ Left Dorsalis Pedis] Pulse Rate [ Left Radial] Pulse Rate [ Right Dorsalis Pedis] Pulse Rate [ Right Radial] Respiratory 22 26 H 26 H Rate Blood Pressure 156/87 185/91 O2 Sat by Pulse 100 100 100 Oximetry 03/02/20 03/02/20 03/02/20 04:30 04:31 05:01 Temperature Pulse Rate 86 81 93 H Pulse Rate [ From Monitor] Pulse Rate [ Left Dorsalis Pedis] Pulse Rate [ Left Radial] Pulse Rate [ Right Dorsalis Pedis] Pulse Rate [ Right Radial] Respiratory 20 20 Rate Blood Pressure 156/87 185/100 O2 Sat by Pulse 100 100 100 Oximetry 03/02/20 03/02/20 03/02/20 05:16 05:44 06:01 Temperature 99 F Pulse Rate 93 H 81 Pulse Rate [ From Monitor] Pulse Rate [ Left Dorsalis Pedis] Pulse Rate [ Left Radial] Pulse Rate [ Right Dorsalis Pedis] Pulse Rate [ Right Radial] Respiratory 21 Rate Blood Pressure 185/100 211/118 O2 Sat by Pulse 100 Oximetry 03/02/20 03/02/20 03/02/20 06:31 07:00 07:31 Temperature Pulse Rate 81 83 84 Pulse Rate [ From Monitor] Pulse Rate [ Left Dorsalis Pedis] Pulse Rate [ Left Radial] Pulse Rate [ Right Dorsalis Pedis] Pulse Rate [ Right Radial] Respiratory 24 24 21 Rate Blood Pressure 145/70 146/80 146/80 O2 Sat by Pulse 100 100 100 Oximetry 03/02/20 03/02/20 03/02/20 08:00 08:31 09:01 Temperature 98.2 F Pulse Rate 83 84 87 Pulse Rate [ 80 From Monitor] Pulse Rate [ 80 Left Dorsalis Pedis] Pulse Rate [ 80 Left Radial] Pulse Rate [ 80 Right Dorsalis Pedis] Pulse Rate [ 80 Right Radial] Respiratory 20 21 19 Rate Blood Pressure 142/69 142/69 179/83 O2 Sat by Pulse 100 100 100 Oximetry 03/02/20 03/02/20 03/02/20 09:17 09:30 09:31 Temperature Pulse Rate 82 84 86 Pulse Rate [ From Monitor] Pulse Rate [ Left Dorsalis Pedis] Pulse Rate [ Left Radial] Pulse Rate [ Right Dorsalis Pedis] Pulse Rate [ Right Radial] Respiratory 29 H 30 H Rate Blood Pressure 179/83 142/69 O2 Sat by Pulse 100 100 100 Oximetry 03/02/20 10:00 Temperature Pulse Rate 84 Pulse Rate [ From Monitor] Pulse Rate [ Left Dorsalis Pedis] Pulse Rate [ Left Radial] Pulse Rate [ Right Dorsalis Pedis] Pulse Rate [ Right Radial] Respiratory 21 Rate Blood Pressure 170/92 O2 Sat by Pulse 100 Oximetry - Lab 03/02/20 05:22 03/02/20 05:22 Most recent lab results ABG pH 7.318 pH Units (7.350-7.450) L 02/21/20 04:16 ABG pCO2 42.7 mm Hg 02/21/20 04:16 ABG pO2 100.0 mm Hg (80.0-90.0) H 02/21/20 04:16 ABG HCO3 21.4 mmol/L (20.0-26.0) 02/21/20 04:16 ABG O2 Saturation 97.2 % (95.0-99.0) 02/21/20 04:16 Calcium 8.5 mg/dL (8.4-10.2) 03/02/20 05:22 Phosphorus 10.20 mg/dL (2.5-4.5) H 03/01/20 10:00 Magnesium 2.30 mg/dL (1.7-2.3) 03/01/20 10:00 Urine Creatinine 35.3 mg/dL (0.1-20.0) H 02/12/20 Unknown Urine Total Protein 796 mg/dL (5-11.8) H 02/12/20 Unknown Medications & Allergies - Medications Allergies/Adverse Reactions: Allergies clindamycin Allergy (Verified 02/11/20 14:52) Hives Home Medications: Home Medications Medication Instructions Recorded Confirmed Last Taken Type Doxazosin [Cardura] 4 mg PO QDAY 02/11/20 02/11/20 02/10/20 History Hydralazine HCl 50 mg PO DAILY 02/11/20 02/11/20 02/10/20 History Metoprolol 25 mg PO DAILY 02/11/20 02/11/20 02/10/20 History Sertraline [Zoloft] 50 mg PO QDAY 02/11/20 02/11/20 02/10/20 History amLODIPine [Norvasc] 10 mg PO DAILY 02/11/20 02/11/20 02/10/20 History glipiZIDE 10 mg PO BID 02/11/20 02/11/20 02/10/20 History Active Medications: Generic Name Dose Route Start Last Admin Trade Name Freq PRN Reason Stop Dose Admin Acetaminophen 650 mg 02/11/20 19:01 02/27/20 12:00 Tylenol PO 650 mg Q4H PRN Administration Pain MILD(1-3)/Fever >100.5/ADAMS Amiodarone HCl 200 mg 02/24/20 10:00 03/02/20 09:39 Cordarone PO 200 mg QDAY NADER Administration Lipase/Protease/Amylase 1 each 02/20/20 10:28 Pancregildardo Daugherty 10,500 Unit FEEDTUBE PRN PRN For Clogged Feeding Tube Apixaban 10 mg 02/26/20 12:00 03/02/20 09:36 Eliquis PO 03/03/20 22:01 10 mg Q12HR NADER Administration Protocol Apixaban 5 mg 03/04/20 10:00 Eliquis PO Q12HR NADER Protocol Dextrose 50 ml 02/19/20 14:58 D50w (25gm) Syringe IV Q30MIN PRN Hypoglycemia Protocol Famotidine 20 mg 02/24/20 10:00 03/02/20 09:36 Pepcid PO 20 mg DAILY NADER Administration Fentanyl 50 mcg 02/24/20 09:52 03/02/20 08:00 Sublimaze IV 50 mcg Q2HR PRN Administration Pain, Moderate (4-6) Hydrophilic Ointment 1 applic 02/13/20 19:41 Vaseline Lip Therapy TP Q2HR PRN Dry Lips Sodium Chloride 100 mls @ 999 mls/hr 02/22/20 12:30 Nacl 0.9% IV FABIOLA PRN Hypotension Sodium Chloride 500 mls @ 0 mls/hr 03/01/20 13:27 Nacl 0.9% 500 Ml IV ONCE NADER As Directed Vancomycin HCl 1 gm in 250 mls @ 167.007 mls/hr 03/03/20 22:00 Vancomycin/Ns 1 Gm/250 Ml IV 03/05/20 21:59 MoWeFr [facility] Insulin Glargine 25 units 02/29/20 10:00 03/02/20 09:37 Lantus SUB-Q 25 units BID NADER Administration Insulin Human Lispro 0 unit 02/19/20 18:00 03/02/20 06:51 Humalog SUB-Q Not Given Q6HR [facility] Protocol Labetalol HCl 20 mg 02/13/20 18:00 03/02/20 05:16 Labetalol IV 20 mg Q4H PRN Administration SBP >150 Metoprolol Tartrate 2.5 mg 02/13/20 18:00 02/27/20 02:34 Metoprolol IV 2.5 mg Q6HR PRN Administration HR >130 Metoprolol Tartrate 50 mg 02/26/20 11:00 03/02/20 05:16 Metoprolol PO 50 mg Q8H NADER Administration Multi-Ingred Cream/Lotion/Oil/Oint 1 applic 02/13/20 19:41 Artificial Tears Ophth Oint OU Q4HR PRN Dry Eye(s) Sertraline HCl 50 mg 02/23/20 10:00 03/02/20 09:36 Zoloft PO 50 mg QDAY NADER Administration Simple Syrup 15 ml 02/20/20 10:28 Simple Syrup FEEDTUBE PRN PRN Hypoglycemia Simple Syrup 30 ml 02/20/20 10:28 Simple Syrup FEEDTUBE PRN PRN Hypoglycemia Sodium Bicarbonate 325 mg 02/20/20 10:28 Sodium Bicarbonate FEEDTUBE PRN PRN For Clogged Feeding Tube Sodium Chloride 10 ml 02/11/20 22:00 03/01/20 22:42 Sodium Chloride Flush Syringe 10 Ml IV 10 ml BID NADER Administration Sodium Chloride 10 ml 02/11/20 19:01 02/15/20 22:43 Sodium Chloride Flush Syringe 10 Ml IV 10 ml PRN PRN Administration LINE FLUSH
[2020-03-02 11:31] LABS: ABG Base Excess -1.9 mmol/L (-2.0-3.0); ABG HCO3 22.3 mmol/L (20.0-26.0); ABG Methemoglobin 0.1 % (0.0-1.5); ABG Oxygen Saturation 97.7 % (95.0-99.0); ABG PCO2 34.8 mm Hg; ABG PH 7.424 pH Units (7.350-7.450)
[2020-03-02] MEDS: SIMPLE SYRUP 15 ML FEEDTUBE PRN ×2 (11:39→14:18)
--- NOTE | 2020-03-02 12:13 | Progress Note ---
Assessment and Plan Atrial fibrillation, paroxysmal on metoprolol and amiodarone. echocardiogram showed normal left ventricular systolic function with ejection fraction 60 to 65%. Sepsis Ischemic bowel s/p surgery 01/2019 Respiratory failure Diabetes CKD -initiated on dialysis Anemia s/p transfusion of PRBCs UTI LLE DVT -initiated on eliquis Optimal medical therapy with amiodarone and metoprolol for suppression of paroxysmal atrial fibrillation. Subjective Date of service: 03/02/20 Principal diagnosis: Ischemic Bowel Interval history: Patient with eyes open but remains intubated. Objective Vital Signs Temp Pulse Pulse Pulse Pulse Pulse Pulse 03/02/20 12:00 98.1 F 03/02/20 11:13 87 03/02/20 11:00 85 03/02/20 10:31 94 H 03/02/20 10:00 84 03/02/20 09:31 86 03/02/20 09:30 84 03/02/20 09:17 82 03/02/20 09:01 87 03/02/20 08:31 84 03/02/20 08:00 98.2 F 83 80 80 80 80 03/02/20 07:31 84 03/02/20 07:00 83 03/02/20 06:31 81 03/02/20 06:01 81 03/02/20 05:44 99 F 03/02/20 05:16 93 H 03/02/20 05:01 93 H 03/02/20 04:31 81 03/02/20 04:30 86 03/02/20 04:01 88 03/02/20 04:00 88 86 03/02/20 03:31 88 03/02/20 03:15 98.4 F 03/02/20 03:00 84 03/02/20 02:30 88 03/02/20 02:00 87 03/02/20 01:30 90 03/02/20 01:00 88 03/02/20 00:30 88 03/02/20 00:23 86 03/02/20 00:00 86 89 03/01/20 23:52 99.4 F 03/01/20 23:30 91 H 03/01/20 23:14 100 H 03/01/20 23:00 99 H 03/01/20 22:43 92 H 03/01/20 22:30 97 H 03/01/20 22:00 95 H 03/01/20 21:30 100 H 03/01/20 21:25 98.8 F 97 H 03/01/20 21:15 106 H 03/01/20 21:10 117 H 03/01/20 21:00 111 H 03/01/20 20:45 120 H 03/01/20 20:30 122 H 03/01/20 20:15 114 H 03/01/20 20:00 97.8 F 107 H 107 H 03/01/20 19:45 111 H 03/01/20 19:30 107 H 03/01/20 19:15 111 H 03/01/20 19:00 113 H 03/01/20 18:45 103 H 03/01/20 18:30 94 H 03/01/20 18:15 96 H 03/01/20 18:10 98.8 F 86 03/01/20 18:00 85 03/01/20 17:30 82 03/01/20 17:25 03/01/20 17:08 87 03/01/20 17:00 95 H 03/01/20 16:30 85 03/01/20 16:00 94 H 86 03/01/20 15:57 98.5 F 03/01/20 15:30 77 03/01/20 15:00 85 03/01/20 14:30 89 03/01/20 14:01 03/01/20 14:00 83 03/01/20 13:30 84 03/01/20 13:00 88 03/01/20 12:30 90 03/01/20 12:18 99 H Pulse Resp Resp Resp BP BP Pulse Ox 03/02/20 12:00 03/02/20 11:13 25 H 100 03/02/20 11:00 27 H 159/77 100 03/02/20 10:31 26 H 179/83 100 03/02/20 10:00 21 170/92 100 03/02/20 09:31 30 H 142/69 100 03/02/20 09:30 29 H 100 03/02/20 09:17 179/83 100 03/02/20 09:01 19 179/83 100 03/02/20 08:31 21 142/69 100 03/02/20 08:00 80 20 142/69 100 03/02/20 07:31 21 146/80 100 03/02/20 07:00 24 146/80 100 03/02/20 06:31 24 145/70 100 03/02/20 06:01 21 211/118 100 03/02/20 05:44 03/02/20 05:16 185/100 03/02/20 05:01 20 185/100 100 03/02/20 04:31 20 156/87 100 03/02/20 04:30 100 03/02/20 04:01 26 H 185/91 100 03/02/20 04:00 26 H 100 03/02/20 03:31 22 156/87 100 03/02/20 03:15 03/02/20 03:00 21 156/87 100 03/02/20 02:30 21 132/66 100 03/02/20 02:00 22 139/75 100 03/02/20 01:30 20 174/97 100 03/02/20 01:00 20 156/78 100 03/02/20 00:30 21 218/114 100 03/02/20 00:23 198/102 03/02/20 00:00 21 152/82 100 03/01/20 23:52 03/01/20 23:30 16 176/97 100 03/01/20 23:14 23 159/86 100 03/01/20 23:00 26 H 159/86 100 03/01/20 22:43 142/72 03/01/20 22:30 23 142/72 100 03/01/20 22:00 26 H 27 H 115/64 100 03/01/20 21:30 23 113/66 100 03/01/20 21:25 25 H 134/55 03/01/20 21:15 120/56 03/01/20 21:10 177/90 100 03/01/20 21:00 26 H 136/88 100 03/01/20 20:45 175/98 03/01/20 20:30 30 H 140/98 100 03/01/20 20:15 140/98 03/01/20 20:00 16 120/81 100 03/01/20 19:45 120/81 03/01/20 19:30 28 H 110/77 100 03/01/20 19:15 119/77 03/01/20 19:00 25 H 128/69 100 07/06/20 18:45 137/67 03/01/20 18:30 23 144/73 100 03/01/20 18:15 153/69 03/01/20 18:10 24 147/74 03/01/20 18:00 22 147/74 100 03/01/20 17:30 26 H 144/75 100 03/01/20 17:25 98 03/01/20 17:08 16 138/65 03/01/20 17:00 22 144/75 100 03/01/20 16:30 22 135/71 100 03/01/20 16:00 19 141/61 100 03/01/20 15:57 03/01/20 15:30 23 97/59 100 03/01/20 15:00 24 130/78 98 03/01/20 14:30 24 138/65 100 03/01/20 14:01 26 H 03/01/20 14:00 27 H 157/72 100 03/01/20 13:30 28 H 140/75 100 03/01/20 13:00 26 H 150/75 100 03/01/20 12:30 25 H 111/71 100 03/01/20 12:18 111/71 Pulse Ox Pulse Ox 03/02/20 12:00 03/02/20 11:13 03/02/20 11:00 03/02/20 10:31 03/02/20 10:00 03/02/20 09:31 03/02/20 09:30 03/02/20 09:17 03/02/20 09:01 03/02/20 08:31 03/02/20 08:00 03/02/20 07:31 03/02/20 07:00 03/02/20 06:31 03/02/20 06:01 03/02/20 05:44 03/02/20 05:16 03/02/20 05:01 03/02/20 04:31 03/02/20 04:30 03/02/20 04:01 03/02/20 04:00 03/02/20 03:31 03/02/20 03:15 03/02/20 03:00 03/02/20 02:30 03/02/20 02:00 03/02/20 01:30 03/02/20 01:00 03/02/20 00:30 03/02/20 00:23 03/02/20 00:00 03/01/20 23:52 03/01/20 23:30 03/01/20 23:14 03/01/20 23:00 03/01/20 22:43 03/01/20 22:30 03/01/20 22:00 03/01/20 21:30 03/01/20 21:25 03/01/20 21:15 03/01/20 21:10 03/01/20 21:00 03/01/20 20:45 03/01/20 20:30 03/01/20 20:15 03/01/20 20:00 03/01/20 19:45 03/01/20 19:30 03/01/20 19:15 03/01/20 19:00 03/01/20 18:45 03/01/20 18:30 03/01/20 18:15 03/01/20 18:10 03/01/20 18:00 03/01/20 17:30 03/01/20 17:25 03/01/20 17:08 03/01/20 17:00 03/01/20 16:30 03/01/20 16:00 03/01/20 15:57 03/01/20 15:30 03/01/20 15:00 03/01/20 14:30 03/01/20 14:01 03/01/20 14:00 03/01/20 13:30 03/01/20 13:00 03/01/20 12:30 03/01/20 12:18 - Physical Examination General: Other (Intubated) HEENT: Positive: PERRL Cardiac: Positive: irregularly irregular - Labs and Meds CBC 03/02/20 Range/Units 05:22 WBC 10.8 (4.5-11.0) K/mm3 RBC 2.67 L (3.65-5.03) M/mm3 Hgb 7.9 L (10.1-14.3) gm/dl Hct 23.9 L (30.3-42.9) % Plt Count 196 (140-440) K/mm3 Lymph # 1.0 L (1.2-5.4) K/mm3 Cottle # 0.7 (0.0-0.8) K/mm3 Eos # 0.1 (0.0-0.4) K/mm3 Baso # 0.1 (0.0-0.1) K/mm3 Comprehensive Metabolic Panel 03/02/20 Range/Units 05:22 Sodium 145 (137-145) mmol/L Potassium 3.2 L (3.6-5.0) mmol/L Chloride 104.8 (98-107) mmol/L Carbon Dioxide 25 D (22-30) mmol/L BUN 67 H (7-17) mg/dL Creatinine 4.8 H (0.7-1.2) mg/dL Glucose 102 H (65-100) mg/dL Calcium 8.5 (8.4-10.2) mg/dL
--- NOTE | 2020-03-02 12:13 | Progress Note ---
Assessment and Plan - Patient Problems (1) Atrial fibrillation Current Visit: Yes Status: Acute Plan to address problem: Paroxysmal atrial fibrillation, will continue medical therapy as previously outlined. 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 Objective Vital Signs Temp Pulse Pulse Pulse Pulse Pulse Pulse 03/02/20 12:00 98.1 F 03/02/20 11:13 87 03/02/20 11:00 85 03/02/20 10:31 94 H 03/02/20 10:00 84 03/02/20 09:31 86 03/02/20 09:30 84 03/02/20 09:17 82 03/02/20 09:01 87 03/02/20 08:31 84 03/02/20 08:00 98.2 F 83 80 80 80 80 03/02/20 07:31 84 03/02/20 07:00 83 03/02/20 06:31 81 03/02/20 06:01 81 03/02/20 05:44 99 F 03/02/20 05:16 93 H 03/02/20 05:01 93 H 03/02/20 04:31 81 03/02/20 04:30 86 03/02/20 04:01 88 03/02/20 04:00 88 86 03/02/20 03:31 88 03/02/20 03:15 98.4 F 03/02/20 03:00 84 03/02/20 02:30 88 03/02/20 02:00 87 03/02/20 01:30 90 03/02/20 01:00 88 03/02/20 00:30 88 03/02/20 00:23 86 03/02/20 00:00 86 89 03/01/20 23:52 99.4 F 03/01/20 23:30 91 H 03/01/20 23:14 100 H 03/01/20 23:00 99 H 03/01/20 22:43 92 H 03/01/20 22:30 97 H 03/01/20 22:00 95 H 03/01/20 21:30 100 H 03/01/20 21:25 98.8 F 97 H 07/06/20 21:15 106 H 03/01/20 21:10 117 H 03/01/20 21:00 111 H 03/01/20 20:45 120 H 03/01/20 20:30 122 H 03/01/20 20:15 114 H 03/01/20 20:00 97.8 F 107 H 107 H 03/01/20 19:45 111 H 03/01/20 19:30 107 H 03/01/20 19:15 111 H 03/01/20 19:00 113 H 03/01/20 18:45 103 H 03/01/20 18:30 94 H 03/01/20 18:15 96 H 03/01/20 18:10 98.8 F 86 03/01/20 18:00 85 03/01/20 17:30 82 03/01/20 17:25 03/01/20 17:08 87 03/01/20 17:00 95 H 03/01/20 16:30 85 03/01/20 16:00 94 H 86 03/01/20 15:57 98.5 F 03/01/20 15:30 77 03/01/20 15:00 85 03/01/20 14:30 89 03/01/20 14:01 03/01/20 14:00 83 03/01/20 13:30 84 03/01/20 13:00 88 03/01/20 12:30 90 03/01/20 12:18 99 H Pulse Resp Resp Resp BP BP Pulse Ox 03/02/20 12:00 03/02/20 11:13 25 H 100 03/02/20 11:00 27 H 159/77 100 03/02/20 10:31 26 H 179/83 100 03/02/20 10:00 21 170/92 100 03/02/20 09:31 30 H 142/69 100 03/02/20 09:30 29 H 100 03/02/20 09:17 179/83 100 03/02/20 09:01 19 179/83 100 03/02/20 08:31 21 142/69 100 03/02/20 08:00 80 20 142/69 100 03/02/20 07:31 21 146/80 100 03/02/20 07:00 24 146/80 100 03/02/20 06:31 24 145/70 100 03/02/20 06:01 21 211/118 100 03/02/20 05:44 03/02/20 05:16 185/100 03/02/20 05:01 20 185/100 100 03/02/20 04:31 20 156/87 100 03/02/20 04:30 100 03/02/20 04:01 26 H 185/91 100 03/02/20 04:00 26 H 100 03/02/20 03:31 22 156/87 100 03/02/20 03:15 03/02/20 03:00 21 156/87 100 03/02/20 02:30 21 132/66 100 03/02/20 02:00 22 139/75 100 03/02/20 01:30 20 174/97 100 03/02/20 01:00 20 156/78 100 03/02/20 00:30 21 218/114 100 03/02/20 00:23 198/102 03/02/20 00:00 21 152/82 100 03/01/20 23:52 03/01/20 23:30 16 176/97 100 03/01/20 23:14 23 159/86 100 03/01/20 23:00 26 H 159/86 100 03/01/20 22:43 142/72 03/01/20 22:30 23 142/72 100 03/01/20 22:00 26 H 27 H 115/64 100 03/01/20 21:30 23 113/66 100 03/01/20 21:25 25 H 134/55 03/01/20 21:15 120/56 03/01/20 21:10 177/90 100 03/01/20 21:00 26 H 136/88 100 03/01/20 20:45 175/98 03/01/20 20:30 30 H 140/98 100 03/01/20 20:15 140/98 03/01/20 20:00 16 120/81 100 03/01/20 19:45 120/81 03/01/20 19:30 28 H 110/77 100 03/01/20 19:15 119/77 03/01/20 19:00 25 H 128/69 100 03/01/20 18:45 137/67 03/01/20 18:30 23 144/73 100 03/01/20 18:15 153/69 03/01/20 18:10 24 147/74 07/06/20 18:00 22 147/74 100 03/01/20 17:30 26 H 144/75 100 03/01/20 17:25 98 03/01/20 17:08 16 138/65 03/01/20 17:00 22 144/75 100 03/01/20 16:30 22 135/71 100 03/01/20 16:00 19 141/61 100 03/01/20 15:57 03/01/20 15:30 23 97/59 100 03/01/20 15:00 24 130/78 98 03/01/20 14:30 24 138/65 100 03/01/20 14:01 26 H 03/01/20 14:00 27 H 157/72 100 03/01/20 13:30 28 H 140/75 100 03/01/20 13:00 26 H 150/75 100 03/01/20 12:30 25 H 111/71 100 03/01/20 12:18 111/71 Pulse Ox Pulse Ox 03/02/20 12:00 03/02/20 11:13 03/02/20 11:00 03/02/20 10:31 03/02/20 10:00 03/02/20 09:31 03/02/20 09:30 03/02/20 09:17 03/02/20 09:01 03/02/20 08:31 03/02/20 08:00 03/02/20 07:31 03/02/20 07:00 03/02/20 06:31 03/02/20 06:01 03/02/20 05:44 03/02/20 05:16 03/02/20 05:01 03/02/20 04:31 03/02/20 04:30 03/02/20 04:01 03/02/20 04:00 03/02/20 03:31 03/02/20 03:15 03/02/20 03:00 03/02/20 02:30 03/02/20 02:00 03/02/20 01:30 03/02/20 01:00 03/02/20 00:30 03/02/20 00:23 03/02/20 00:00 03/01/20 23:52 03/01/20 23:30 03/01/20 23:14 03/01/20 23:00 03/01/20 22:43 03/01/20 22:30 03/01/20 22:00 03/01/20 21:30 03/01/20 21:25 100 03/01/20 21:15 03/01/20 21:10 03/01/20 21:00 03/01/20 20:45 03/01/20 20:30 03/01/20 20:15 03/01/20 20:00 03/01/20 19:45 03/01/20 19:30 03/01/20 19:15 03/01/20 19:00 03/01/20 18:45 03/01/20 18:30 03/01/20 18:15 03/01/20 18:10 100 03/01/20 18:00 03/01/20 17:30 03/01/20 17:25 03/01/20 17:08 100 03/01/20 17:00 03/01/20 16:30 03/01/20 16:00 03/01/20 15:57 03/01/20 15:30 03/01/20 15:00 03/01/20 14:30 03/01/20 14:01 03/01/20 14:00 03/01/20 13:30 03/01/20 13:00 03/01/20 12:30 03/01/20 12:18 - Physical Examination General: Other (Intubated, on the vent) HEENT: Positive: PERRL Neck: Positive: neck supple, trachea midline. Negative: JVD/HJR Cardiac: Positive: irregularly irregular Lungs: Positive: Decreased Breath Sounds Neuro: Positive: Other (Intubated, on the vent) Abdomen: Positive: Distended Skin: Positive: Clear Extremities: Absent: edema - Labs and Meds CBC 03/02/20 Range/Units 05:22 WBC 10.8 (4.5-11.0) K/mm3 RBC 2.67 L (3.65-5.03) M/mm3 Hgb 7.9 L (10.1-14.3) gm/dl Hct 23.9 L (30.3-42.9) % Plt Count 196 (140-440) K/mm3 Lymph # 1.0 L (1.2-5.4) K/mm3 Bowman # 0.7 (0.0-0.8) K/mm3 Eos # 0.1 (0.0-0.4) K/mm3 Baso # 0.1 (0.0-0.1) K/mm3 Comprehensive Metabolic Panel 03/02/20 Range/Units 05:22 Sodium 145 (137-145) mmol/L Potassium 3.2 L (3.6-5.0) mmol/L Chloride 104.8 (98-107) mmol/L Carbon Dioxide 25 D (22-30) mmol/L BUN 67 H (7-17) mg/dL Creatinine 4.8 H (0.7-1.2) mg/dL Glucose 102 H (65-100) mg/dL Calcium 8.5 (8.4-10.2) mg/dL
--- NOTE | 2020-03-02 12:55 | Discharge Summary ---
Providers - Providers Date of Admission: 02/11/20 19:01 Date of discharge: 03/02/20 Attending physician: INNA PEPPER 02/11/20 19:01 Consult to Physician [CONS] Routine Comment: Consulting Provider: ANETA LOMBARDI Physician Instructions: Reason For Exam: ashlye 02/12/20 09:02 Consult to Physician [CONS] Routine Comment: Consulting Provider: GABBY LAGUNAS Physician Instructions: Reason For Exam: sepsis 02/13/20 10:55 Consult to Physician [CONS] Routine Comment: Consulting Provider: SPENCER ARRIAGA Physician Instructions: Reason For Exam: Abdominal pain 02/13/20 10:56 Consult to Physician [CONS] Routine Comment: Consulting Provider: JASS MURGUIA Physician Instructions: Reason For Exam: abd. pain 02/13/20 12:07 Consult to Physician [CONS] Urgent Comment: Consulting Provider: STEVE BONILLA Physician Instructions: Reason For Exam: critical care management, pulamonary management 02/13/20 15:12 Consult to Physician [CONS] Routine Comment: Consulting Provider: LENA CATHERINE Physician Instructions: Reason For Exam: Atrial flutter new onset 02/13/20 19:35 Consult to Physician [CONS] Routine Comment: Consulting Provider: CARSON CUADRA Physician Instructions: Reason For Exam: ischemia of small bowel with necrosis, afib 02/13/20 19:43 Consult to Dietitian/Nutrition [CONS] Routine Physician Instructions: Reason For Exam: tpn Reason for Consult: Evaluate nutritional intake 02/15/20 12:14 Consult to PICC Line RN [CONS] Routine Reason For Exam: TPN Type Line:: PICC 02/17/20 13:00 Consult to Wound/ET Nurse [CONS] Routine Reason For Exam: incisional wound vac - placed 02/1502/17/20 14:07 Consult to Dietitian/Nutrition [CONS] Routine Physician Instructions: Reason For Exam: Reason for Consult: tpn 02/20/20 14:43 Consult to Interventional Radiology [CONS] Routine Consulting Provider: HOLLIE MCLAUGHLIN Reason For Exam: need for temporary dialysis catheter in ICU Place consult to:: Elizabeth Franklin Notified:: Venereal Disease Investigator Phone number called:: [phone] Was contact made?: Yes If yes, spoke with:: Venereal Disease Investigator Time called:: 15:03 Comment:: not urgent, can be done later today or tomorrow 02/22/20 13:45 Consult to Dietitian/Nutrition [CONS] Routine Physician Instructions: Assess nutrtn needs, initiate, modify, manage TF Reason For Exam: Reason for Consult: Write/Manage Tube Feeding Reason for Consult: Write/Manage Tube Feeding 02/29/20 09:37 Midline [Consult to PICC Line RN] [CONS] Routine Reason For Exam: IV access Type Line:: Midline 03/01/20 07:47 Consult to Interventional Radiology [CONS] Routine Consulting Provider: HOLLIE MCLAUGHLIN Reason For Exam: need for replacement of temp dialysis catheter Notified:: Yes Primary care physician: ANETA LOMBARDI Hospitalization Reason for admission: Abdominal pain/ischemic bowel Condition: Stable Pertinent studies: CT abdomen and pelvis Multiple chest x-rays Echocardiogram CT chest Lower extremity venous Doppler Procedures: Vas-Cath placement Exploratory laparotomy extensive bowel resection partial colon resection placement of wound VAC placement of right radial arterial line Enterocolonic anastomosis closure of abdomen status post wound VAC removal for text Hospital course: 74-year-old female patient was admitted with acute abdominal pain, work-up is consistent with bowel ischemia with gangrene underwent exploratory laparotomy, extensive small bowel resection partial colon resection placement of a pleural VAC placement of right radial arterial line Patient again had enterocolonic anastomosis closure of abdomen application of wound VAC Patient had severe sepsis, evaluated by ID managed with appropriate antibiotics Also had end-stage renal disease on hemodialysis, Sepsis received multiple antibiotics Intubated on ventilatory support, unable to wean Is being transferred to LTAC for further evaluation and management. The time of discharge and transfer patient is hemodynamically stable With guarded prognosis Final diagnosis and management: --Trejo PCR negative x 2 [02/24 and 03/01] --Acute hypoxic resp failure: On ventilatory support unable to wean Wean as tolerated and extubate, pulmonary critical following --Atrial fibrillation; rate controlled continue metoprolol and amiodarone Chronic anticoagulation Eliquis started, monitor for any bleeding --Sepsis: due to ischemic bowel. Completed antibiotics, ID surgery following --Peritonitis :secondary to ischemia/gangrene of Small bowel and Cecum. s/p Exploratory laparotomy, extensive small bowel resection, partial colon resection, placement of abthera vac on 02/13/2020. S/p exploratory laparotomy, enterocolonic anastamosis, closure of abdomen, Status post wound VAC. Removed --Hypokalemia; replenish with KCl and monitor levels --Anemia; requiring multiple units of PRBC, total 6 units transfusion --Sepsis Gram-positive cocci bacteremia; staph epidermidis Evaluated by ID recommend removal or exchange of PICC line and hemodialysis access, Dialysis access removed, PICC line removed, follow repeat cultures continue antibiotics ID following --Uncontrolled diabetes Mellitus type 2: Slightly improved Increase Lantus 25 units subcu twice daily Accucheks and SSC, --UTI : Completed antibiotics per ID. --C. difficile colitis. [Positive C. difficile test] contact isolation,s/p oral vancomycin --Diarrhea: resolved prior to presentation, doubt C diff, likely from ischemic bowel. --Presumed infected renal cyst. ID following --Hyponatremia; closely monitor electrolytes, mild improvement, resolved --ASHLEY on CKD: Renally adjust antibiotics, hemodialysis as needed nephrology following --Severe protein calorie malnutrition; nutrition supplements, Supportive care --Right saphenous vein DVT.s/p Jose E Patient is being transferred to LTAC today Condition at the time of discharge critical with guarded prognosis Disposition: [id number] MEDICARE CERT LT Time spent for discharge: 35 min Core Measure Documentation - Palliative Care Palliative Care/ Comfort Measures: Not Applicable - Core Measures Any of the following diagnoses?: none Exam - Constitutional Vitals: Temp Pulse Resp BP Pulse Ox 98.1 F 89 26 H 159/71 100 03/02/20 12:00 03/02/20 12:20 03/02/20 12:00 03/02/20 12:20 03/02/20 12:00 General appearance: Present: no acute distress, well-nourished, other (Intubated on vent) - EENT Eyes: Present: PERRL, EOM intact - Neck Neck: Present: supple, normal ROM - Respiratory Respiratory effort: normal Respiratory: bilateral: diminished, negative: rales, rhonchi, wheezing - Cardiovascular Rhythm: regular Heart Sounds: Present: S1 & S2 - Extremities Extremities: no ischemia, No edema - Abdominal General gastrointestinal: Present: soft, non-tender, non-distended, normal bowel sounds - Integumentary Integumentary: Present: clear, warm - Musculoskeletal Musculoskeletal: strength equal bilaterally - Psychiatric Psychiatric: other (Intubated on vent) - Neurologic Neurologic: other (Intubated on vent) Plan Activity: advance as tolerated Diet: other (Tube feeding per protocol) Wound: per wound nurse instructions Additional Instructions: Patient is being transferred to LTAC for further management. Wound care,. renally adjusted IV vancomycin for total 7 days from bacteremia clearance (end date: 03/05/2020) Follow up with: PRIMARY MD CALI [Referring] - 14 Days JASS MURGUIA DO [Staff Physician] - 14 Days LENA CATHERINE MD [Staff Physician] - 14 Days ROBINSON SCHMIDT MD [Staff Physician] - 14 Days DARLINE SAMSON MD [Staff Physician] - 14 Days STEVE BONILLA MD [Staff Physician] - 14 Days
--- NOTE | 2020-03-02 13:09 | Progress Note ---
Assessment and Plan Cultures: Blood culture 02/11/2020 no growth today Sputum culture 02/12/19 no growth today Sputum culture 02/13/19 usual resp sulaiman Blood culture 02/19/2020 no growth Cdiff toxin PCR Positive urine culture 02/19/2020 10-100K mult Blood culture 02/24/2020 with MRSE 4/4 Blood cultures 02/27/2020: No growth A/P: 74-year-old female past medical history hypertension, diabetes, mitral valve prolapse, hyperlipidemia admitted with acute sepsis and abdominal pain #Acute sepsis: likely due to ischemic bowel. Leukocytosis again up and low grade fever likely due to gram-positive cocci bacteremia -improving. s/p cefepime and flagyl - 8 days. #Staphylococcus epidermidis bacteremia: Patient with a PICC line and a hemo dialysis access. HD access was removed, repeat blood cultures negative and Vas- Cath was placed on 03/01/2020. Patient unable to be removed due to edema and inability to place a peripheral IV. 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 S/p exploratory laparotomy, enterocolonic anastamosis, closure of abdomen, application of wound vac on 02/15. on TPN #Respiratory failure: on BIPAP #Presumed infected renal cyst #Diabetes: Tight glycemic control for best outcomes #Diarrhea: resolved prior to presentation, doubt C diff, likely from ischemic bowel. #LITZY on CKD: Renally adjust antibiotics, worsening #Anemia/thrombocytopenia: from sepsis, severe anemia now, anticoagulation on hold. #Diarrhea? Cdiff toxin PCR Positive, can be colonization rather than disease, should have a Cdiff EIA not available unfortunately. Completed vancomycin 125 mg QID course. #UTI: corcoran replaced for I+O. #DVT: on anticoagulation Recs: -Continue renally adjusted IV vancomycin for total 7 days from bacteremia rojas adan (end date: 03/05/2020) Jamshid James MD, FACP [facility] C: [phone] O: [phone] F: [phone] Subjective Date of service: 03/02/20 Principal diagnosis: Ischemic Bowel Interval history: No fever. Remains on the vent. Objective - Exam Narrative Exam: Constitutional: alert intubated Head, Ears, Nose: Normocephalic, atraumatic. Eyes: Conjunctivae/corneas clear. No icterus. No ptosis. Neck: Supple, no meningeal signs Oral: +ETT Cardiovascular: tachycardic Respiratory: Good air entry, clear to auscultation bilaterally GI: Soft, midline wound with VAC. Musculoskeletal:yareli arm edema Skin: No rash or abscess Hem/Lymphatic: No palpable cervical or supraclavicular nodes. No lymphangitis Psych: no agitated Neurological: alert - Constitutional Vitals: Vital Signs Temp Pulse Resp BP Pulse Ox 98.1 F 89 26 H 159/71 100 03/02/20 12:00 03/02/20 12:20 03/02/20 12:00 03/02/20 12:20 03/02/20 12:00 Temperature -Last 24 Hours Temperature 98.1 F Temperature 98.2 F Temperature 99 F Temperature 98.4 F Temperature 99.4 F Temperature 98.8 F Temperature 97.8 F Temperature 98.8 F Temperature 98.5 F - Labs CBC & Chem 7: 03/02/20 05:22 03/02/20 05:22 Labs: Abnormal lab results 03/01/20 03/01/20 03/01/20 Range/Units 15:30 17:37 23:46 RBC (3.65-5.03) M/mm3 Hgb (10.1-14.3) gm/dl Hct (30.3-42.9) % RDW (13.2-15.2) % Lymph % (Auto) (13.4-35.0) % Lymph # (1.2-5.4) K/mm3 Seg Neutrophils % (40.0-70.0) % Seg Neutrophils # (1.8-7.7) K/mm3 ABG pO2 (80.0-90.0) mm Hg ABG Hemoglobin (12.0-16.0) gm/dl Potassium (3.6-5.0) mmol/L BUN (7-17) mg/dL Creatinine (0.7-1.2) mg/dL Glucose (65-100) mg/dL POC Glucose 125 H 146 H (70-105) Crossmatch See Detail 03/02/20 03/02/20 03/02/20 Range/Units 05:22 05:22 11:08 RBC 2.67 L (3.65-5.03) M/mm3 Hgb 7.9 L (10.1-14.3) gm/dl Hct 23.9 L (30.3-42.9) % RDW 16.5 H (13.2-15.2) % Lymph % (Auto) 9.2 L (13.4-35.0) % Lymph # 1.0 L (1.2-5.4) K/mm3 Seg Neutrophils % 83.0 H (40.0-70.0) % Seg Neutrophils # 9.0 H (1.8-7.7) K/mm3 ABG pO2 100.0 H (80.0-90.0) mm Hg ABG Hemoglobin 7.7 L (12.0-16.0) gm/dl Potassium 3.2 L (3.6-5.0) mmol/L BUN 67 H (7-17) mg/dL Creatinine 4.8 H (0.7-1.2) mg/dL Glucose 102 H (65-100) mg/dL POC Glucose (70-105) Crossmatch 03/02/20 Range/Units 11:35 RBC (3.65-5.03) M/mm3 Hgb (10.1-14.3) gm/dl Hct (30.3-42.9) % RDW (13.2-15.2) % Lymph % (Auto) (13.4-35.0) % Lymph # (1.2-5.4) K/mm3 Seg Neutrophils % (40.0-70.0) % Seg Neutrophils # (1.8-7.7) K/mm3 ABG pO2 (80.0-90.0) mm Hg ABG Hemoglobin (12.0-16.0) gm/dl Potassium (3.6-5.0) mmol/L BUN (7-17) mg/dL Creatinine (0.7-1.2) mg/dL Glucose (65-100) mg/dL POC Glucose 65 L (70-105) Crossmatch
[2020-03-02 13:49] VITALS: BP 121/59
[2020-03-03] MEDS ORDERED: VANCOMYCIN/NS 1 GM/250 ML 1 GM/250 ML BAG IV SCH (22:00)
[2020-03-04] MEDS ORDERED: APIXABAN 5 MG TAB PO SCH (10:00)
== END 2020-03-02 15:30 | DRG 853 ==
LOC: ED 14:18 → 3A 19:01 → CC1 02-13 12:14
PROVIDERS: ADMIT Internal Medicine; ATTEND Internal Medicine
PROC: 5A1955Z Respiratory Ventilation, Greater than 96 Consecutive Hours (ICD-10-PCS; principal; 2020-02-13)
PROC: 0BH17EZ Insertion of Endotracheal Airway into Trachea, Via Natural or Artificial Opening (ICD-10-PCS; 2020-02-13)
PROC: 0DB80ZZ Excision of Small Intestine, Open Approach (ICD-10-PCS; 2020-02-13)
PROC: 4A033R1 Measurement of Arterial Saturation, Peripheral, Percutaneous Approach (ICD-10-PCS; 2020-02-15)
PROC: 02HV33Z Insertion of Infusion Device into Superior Vena Cava, Percutaneous Approach (ICD-10-PCS; 2020-02-15)
PROC: 0DJD0ZZ Inspection of Lower Intestinal Tract, Open Approach (ICD-10-PCS; 2020-02-16)
PROC: 30233N1 Transfusion of Nonautologous Red Blood Cells into Peripheral Vein, Percutaneous Approach (ICD-10-PCS; 2020-02-16)
PROC: 0DJD0ZZ Inspection of Lower Intestinal Tract, Open Approach (ICD-10-PCS; 2020-02-16)
PROC: 0DBK0ZZ Excision of Ascending Colon, Open Approach (ICD-10-PCS; 2020-02-16)
PROC: 0D180ZL Bypass Small Intestine to Transverse Colon, Open Approach (ICD-10-PCS; 2020-02-16)
PROC: 06HY33Z Insertion of Infusion Device into Lower Vein, Percutaneous Approach (ICD-10-PCS; 2020-02-16)
PROC: 5A1D70Z Performance of Urinary Filtration, Intermittent, Less than 6 Hours Per Day (ICD-10-PCS; 2020-02-21)
PROC: 5A1D70Z Performance of Urinary Filtration, Intermittent, Less than 6 Hours Per Day (ICD-10-PCS; 2020-02-23)
PROC: 5A1D70Z Performance of Urinary Filtration, Intermittent, Less than 6 Hours Per Day (ICD-10-PCS; 2020-02-25)
PROC: 5A1D70Z Performance of Urinary Filtration, Intermittent, Less than 6 Hours Per Day (ICD-10-PCS; 2020-02-27)
PROC: 06HY33Z Insertion of Infusion Device into Lower Vein, Percutaneous Approach (ICD-10-PCS; 2020-02-29)
PROC: 5A1D70Z Performance of Urinary Filtration, Intermittent, Less than 6 Hours Per Day (ICD-10-PCS; 2020-03-01)
PROC: 06HY33Z Insertion of Infusion Device into Lower Vein, Percutaneous Approach (ICD-10-PCS; 2020-03-01)
DX: A41.2 Sepsis due to unspecified staphylococcus (principal); N17.0 Acute kidney failure with tubular necrosis; K65.9 Peritonitis, unspecified; J96.01 Acute respiratory failure with hypoxia; K55.029 Acute infarction of small intestine, extent unspecified; N18.6 End stage renal disease; G93.41 Metabolic encephalopathy; N39.0 Urinary tract infection, site not specified; E87.2 Acidosis; K56.609 Unspecified intestinal obstruction, unspecified as to partial versus complete obstruction; I16.1 Hypertensive emergency; E87.1 Hypo-osmolality and hyponatremia; F17.213 Nicotine dependence, cigarettes, with withdrawal; Q61.2 Polycystic kidney, adult type; K55.9 Vascular disorder of intestine, unspecified; I82.491 Acute embolism and thrombosis of other specified deep vein of right lower extremity; I12.0 Hypertensive chronic kidney disease with stage 5 chronic kidney disease or end stage renal disease; A04.72 Enterocolitis due to Clostridium difficile, not specified as recurrent; E11.22 Type 2 diabetes mellitus with diabetic chronic kidney disease; I12.9 Hypertensive chronic kidney disease with stage 1 through stage 4 chronic kidney disease, or unspecified chronic kidney disease; E78.00 Pure hypercholesterolemia, unspecified; E11.65 Type 2 diabetes mellitus with hyperglycemia; E78.5 Hyperlipidemia, unspecified; E86.9 Volume depletion, unspecified; I34.1 Nonrheumatic mitral (valve) prolapse; I95.9 Hypotension, unspecified; I48.91 Unspecified atrial fibrillation; E87.6 Hypokalemia; E83.51 Hypocalcemia; D64.9 Anemia, unspecified; D69.6 Thrombocytopenia, unspecified; Z20.828 Contact with and (suspected) exposure to other viral communicable diseases; Z87.442 Personal history of urinary calculi; Z99.2 Dependence on renal dialysis; Z90.710 Acquired absence of both cervix and uterus; Z90.49 Acquired absence of other specified parts of digestive tract; Z71.6 Tobacco abuse counseling; Z87.01 Personal history of pneumonia (recurrent); Z86.73 Personal history of transient ischemic attack (TIA), and cerebral infarction without residual deficits; Z79.4 Long term (current) use of insulin
CPT/HCPCS: 36415; 36430; 36600; 71045; 71250; 74018; 74019; 74176; 80048; 80053; 80074; 80076; 80202; 81001; 82010; 82140; 82570; 82803; 82947; 82962; 83690; 83735; 84100; 84156; 84478; 84484; 85007; 85014; 85018; 85025; 85027; 85049; 85520; 85610; 85730; 86850; 86900; 86901; 86920; 87040; 87070; 87076; 87086; 87186; 87205; 87493; 88307; 89050; 93005; 93306; 93970; 94002; 94003; 96361; 96365; 96375; G0378; C9113; J0282; J0330; J0360; J0610; J0692; J0696; J1100; J1170; J1450; J1644; J1815; J1940; J1956; J2060; J2270; J2370; J2405; J2704; J2710; J3010; J3370; J3475; J3480; J7030; J7040; J7060; J7070; J7120; P9016; P9047; U0003-CS